=== PATIENT | female | born 1980 | race Caucasian/White ===

== ENCOUNTER 2022-08-13 18:12 | Emergency (ER) | payer OTHER ==
[2022-08-13] MEDS ORDERED: NA CHLORIDE 0.9% 500 ML ONE (18:41)
[2022-08-13] MEDS ORDERED: FENTANYL CITR 100 MCG/2 ML ONE (18:41)
--- OUTSIDE RECORDS SUMMARY | 2022-08-13 18:56 | XMS REPORT | Continuity of Care Document ---
:1980 Author Organization [facility] t Address [address] [place] [address] Care Team Providers Name Role Phone JAIMEEAUSTYN Jordin Primary Care Physician Unavailable ISIS KERNS Attending Clinician Unavailable LULU SWANSON Attending Clinician Unavailable MERRITT PAGAN Attending Clinician Unavailable RABIA TANNER Attending Clinician Unavailable MICHELLE SANTOS Attending Clinician Unavailable PEREZ ROBINS Attending Clinician Unavailable CHANA BARBOZA Attending Clinician Unavailable JUNIOR ALFARO Attending Clinician Unavailable Chloe Quinones Attending Clinician Corin Hayes MD Attending Clinician Junior Alfaro DO Attending Clinician JUAN SANCHEZ Attending Clinician Unavailable Alex Cruz MD Attending Clinician MADISON HYATT Attending Clinician Unavailable JOSHUA TAY Attending Clinician Unavailable Madison Raymond Attending Clinician Michelle Dumont Attending Clinician China Roberts Attending Clinician CHINA POSADAS Attending Clinician Unavailable Doctor Unassigned, [place] Attending Clinician Unavailable JESS WHITING Attending Clinician Unavailable ELAINE TOURE Attending Clinician Unavailable Elaine Toure MD Attending Clinician JUAN CORREIA Attending Clinician Unavailable Juan Correia MD Attending Clinician [phone] Flores ROQUE, Rabia Rasmussen Attending Clinician [phone] Vicente Maravilla Attending Clinician Unavailable Lam ROQUE, Chana Attending Clinician Curtis PRACTICE BILLING ASSOCIATE, Radhames Attending Clinician Jasvir ROQUE, Joshua Attending Clinician Pawel [facility], Marleny Clarke Attending Clinician RADHAMES ACEVEDO Attending Clinician Unavailable Latasha ROQUE, Merritt Attending Clinician MECCA HAWLEY Attending Clinician Unavailable Anita ROQUE, Mecca Ramos Attending Clinician 1, Adc Infusion Nurse Attending Clinician Unavailable Torrey [facility], Michelle Henriquez Attending Clinician LING JURADO Attending Clinician Unavailable Isis Kerns MD Attending Clinician Pob, Adc Lab Main Attending Clinician Unavailable Only, Adc Test Attending Clinician Unavailable Graeme ROQUE, Dwayne Attending Clinician Sarah Nunez Attending Clinician Unavailable Ney JOHNSON, Yesy Henriquez Attending Clinician Unavailable Only, Clc Main Test Attending Clinician Unavailable Femi Sellers MD Attending Clinician 1, Adc Infusion Chair Attending Clinician Unavailable 2, Adc Infusion Chair Attending Clinician Unavailable LISETTE Attending Clinician Unavailable RICHIE COLÓN Attending Clinician Unavailable Richie Colón DO Attending Clinician LYNNETTE ASTUDILLO Attending Clinician Unavailable Nurse, [facility] Attending Clinician Unavailable Lynnette Siddiqui Attending Clinician ALEX CRUZ Attending Clinician Unavailable Nghia ROQUE, Nicole Rizo Attending Clinician NICOLE ZAYAS Attending Clinician Unavailable Aicha Fulton OT L Attending Clinician Unavailable Johanne ROQUE, Jess Clarke Attending Clinician Ronaldo Dover MD Attending Clinician LUI CUMMINS Attending Clinician Unavailable LUI CUMMINS Attending Clinician Unavailable Yared ROQUE, Lui Sutton Attending Clinician DIANA CANTU Attending Clinician Unavailable Eleni ADVERTISING STRATEGIST, Diana Attending Clinician [facility] Attending Clinician Unavailable SHAHID AUGUST Attending Clinician Unavailable Mata ROQUE, Shahid Echols Attending Clinician Only, [facility] Pob2 Test Attending Clinician Unavailable Shira Cervantes RN Attending Clinician Unavailable ALEX WHITE Attending Clinician Unavailable Tushar ROQUE, Alex Echols Attending Clinician ZAIRA BRANNON Attending Clinician Unavailable Molly Mayer Attending Clinician Karina Trivedi Attending Clinician Lab, [facility] Fam Pob I Attending Clinician Unavailable KARINA PRESCOTT Attending Clinician Unavailable Isiah Smith MD, Rp Attending Clinician ISIAH SMITH RP Attending Clinician Unavailable Zully Valenzuela PT Attending Clinician Unavailable RONALDO DOVER Attending Clinician Unavailable Elmer Hopson DO Attending Clinician Sky ROQUE, Lulu Welsh Attending Clinician Trinh Attending Clinician Unavailable JUAN BAIRES Attending Clinician Unavailable NORBERT SELLERS Attending Clinician Unavailable Juan Baires MD Attending Clinician Therapist, [facility] Occup Attending Clinician Unavailable Traci ROQUE, Trish King Attending Clinician [phone] Kristy JOHNSON, Evelyn Attending Clinician YESSY MATA Attending Clinician Unavailable Julio Cesar EASMTAN, Yessy Soria Attending Clinician Mark Anthony ROQUE, Nava Hernandez Attending Clinician 2, [facility] Lab Attending Clinician Unavailable Nurse, [facility] Fam Attending Clinician Unavailable Jaqueline Field Attending Clinician Marc ROQUE, Catina Marie Attending Clinician Joe RD, Argelia Attending Clinician Jorge ROQUE, Nelly Scherer Attending Clinician Dilma Navarro MD Attending Clinician Mikie Omalley MD Attending Clinician Reshma Tran Attending Clinician Unavailable Xochitl Ceja Attending Clinician Unavailable SHERITA IQBAL Attending Clinician Unavailable GILLES REED Attending Clinician Unavailable Austyn Quach Attending Clinician Unavailable Nilay Laura Attending Clinician Unavailable ISIS KERNS Admitting Clinician Unavailable LULU SWANSON Admitting Clinician Unavailable TEQWIMJUNIOR BURNETT Admitting Clinician Unavailable TeqwimJunior burnett DO Admitting Clinician ELAINE TOURE Admitting Clinician Unavailable RABIA TANNER Admitting Clinician Unavailable Isis Kerns MD Admitting Clinician LISETTE Admitting Clinician Unavailable RICHIE COLÓN Admitting Clinician Unavailable ALEX WHITE Admitting Clinician Unavailable Lulu Swanson MD Admitting Clinician Trinh Admitting Clinician Unavailable YESSY MATA Admitting Clinician Unavailable Payers Payer Name Policy Type Policy Number Effective Date Expiration Date S nisreen [facility] [id number] 2013 PLUS 00:00:00 COMMUNITY PLAN [id number] 2016 [facility] 00:00:00 [facility] [id number] 2016 HEALTH CHOICE 00:00:00 [place]ICAID [place] [id number] 2012 2013 00:00:00 00:00:00 Problems Condition Condition Condition Status Onset Resolution Last Treating Co mments Source Name Details Category Date Date Treatment Clinician Date Bacteremia Bacteremia Disease Active U nivers 08-10 ity of 00:00: [place] 00 Medical Branch Sepsis Sepsis Disease Active Univers without without 08-09 ity of acute acute 00:00: [place] organ organ 00 Medical dysfunctio dysfunctio Br anch n n Fever, Fever, Disease Active Univers unspecifie unspecifie 08-09 it y of d fever d fever 00:00: [place] cause cause 00 Medical Branch History of History of Disease Active U nivers removal of removal of 03-15 it y of Port-a-Cat [place] [facility] Central Central Disease Active Overview: Univ ers venous venous 24 Formattin ity of catheter catheter 00:00: g of this [place] as in place in place 00 note Medica l might be Branch different from the original. Added automatic ally from request for surgery [id number] Dependence Dependence Disease Active U nivers on on 11-23 ity of wheelchair wheelchair 00:[place] [facility] [place] Dependence Dependence Disease Active U nivers on on 11-23 ity of wheelchair wheelchair 00:[place] [facility] [place] Restless Restless Disease Active Unive rs legs legs - ity of 00:00: [place] [facility] Diarrhea, Diarrhea, Disease Active Uni vers unspecifie unspecifie 12-01 it y of d type d type 00:00: [place] 00 Medical Branch Abnormal Abnormal Disease Active Unive rs findings findings 12-01 ity of in stool in stool 00:00: [place] [facility] Abdominal Abdominal Disease Active Uni vers bloating bloating -26 ity of 00:00: [place] 00 Medical Branch Pale stool Pale stool Disease Active U nivers 5-26 ity of 00:00: [place] [facility] Mold Mold Disease Active Univers exposure exposure 3-11 ity of 00:00: [place] 00 Medical Branch Intermitte Intermitte Disease Active 2018- U nivers nt asthma nt asthma 2-11 ity of without without 00:00: [place] complicati complicati 00 Me dical on, on, Branch unspecifie unspecifie d asthma d asthma severity severity Dysautonom Dysautonom Disease Active 2018- U nivers ia ia 9-10 ity of 00:00: [place] 00 Medical Branch Gastropare Gastropare Disease Active 2018- U nivers sis sis 9-10 ity of 00:00: [place] 00 Medical Branch Pancreatic Pancreatic Disease Active 2018-0 U nivers insufficie insufficie 9-10 it y of ncy ncy 00:00: [place] [facility] IBD IBD Disease Active Univers (inflammat (inflammat 9-10 it y of ory bowel ory bowel 00[place] disease[place] disease[place] 00 Medica l Branch Pseudotumo Pseudotumo Disease Active U nivers r cerebri r cerebri 9-10 ity of syndrome syndrome 00:00: [place] [facility] Dehydratio Dehydratio Disease Active U nivers n n 9-10 ity of 00:00: [place] [address] Medical Branch Other Other Disease Active 2017-07 Overview: Univer s constipati constipati 0-19 Formattin ity of on on 00:00: g of this [place] note Medical might be Branch different from the original. 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 7-23 ity of 00:00: [place] [facility] Migraine Migraine Disease Active 2012-07 Unive rs with aura with aura 2-12 ity of 00:00: [place] [address] Medical Branch Metabolic Metabolic Disease Active Uni vers syndrome syndrome 4-30 ity of 00:00: [place] [facility] Morbid Morbid Disease Active Univers obesity obesity 4-30 ity of 00:00: [place] [address] Medical Branch Hyperlipid Hyperlipid Disease Active 2011-07 U mikey emia emia 2-13 ity of 00:00: [place] [facility] Borderline Borderline Disease Active 2011-07 U mikey diabetes diabetes 2-11 ity of 00:00: 00 Medical Branch Palpitatio Palpitatio Disease Active 2011-07 U nivers ns ns 2- ity of 00:00: Medical Branch Hypothyroi Hypothyroi Disease Active Overview : Univers dism dism 08-10 Formattin ity of 00:00: g of this 00 note Medical might be Branch different from the original. 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 TIA ? more than likley stroke, per pt she had R sided weakness with aphasia, which initially presented as migraine. pt recovered most of her weakness with in 2 weeks Allergies, Adverse Reactions, Alerts Allergy Allergy Status Severity Reaction(s) Onset Inactive Treating Comm ents Source Name Type Date Date Clinician Metoclop Propensi Active Other (See 2021-[address] [facility] ramide ty to Comments) 2-27 [facility] adverse 00:[facility]: Medical reaction 00 Center s Sulfa Propensi Active Rash 2021-[address] [facility] (Sulfona ty to 227 [facility] mide adverse 00:00: Medical Antibiot reaction 00 Center [facility]) s Ondanset Propensi Active Hives 2021-[address] [facility] jase Hcl ty to 227 [facility] adverse 00:00: Medical reaction 00 Center s Aripipra Propensi Active Other (See 2021-[address] [facility] zole ty to Comments) 2-27 [facility] adverse 00:00: Medical reaction 00 Center s Adhesive Propensi Active Rash 2021-[address] [facility] Bandage ty to 2-27 [facility] adverse 00:00: Medical reaction 00 Center s Blueberr Propensi Active Hives 2021-[address] [facility] y ty to 2-27 [facility] adverse 00:00: Medical reaction 00 Center s Buprenor Propensi Active Other (See 2022-[address] [facility] phine ty to Comments) 2- [facility] adverse 00:00: Medical reaction 00 Center s Codeine Propensi Active Hives, Rash 2021-[address] ty to 2 [facility] adverse 00:00: Medical reaction 00 Center s Green Propensi Active Nausea And 2021-[address] [facility] Tea ty to Vomiting 2 [facility] adverse 00:00: Medical reaction 00 Center s Latex Propensi Active Rash 2021-[address] [facility] ty to 227 [facility] adverse 00:00: Medical reaction 00 Center s LATEX Allergy Active Low Rash 2021-[address] [facility] 2-27 [facility] 00:[facility]: Medical 00 Center SULFA Allergy Active Low Rash 2021-[address] [facility] (SULFONA 2 [facility] MIDE 00:00: Medical ANTIBIOT 00 Center ICS) BLUEBERR Allergy Active High Hives 2021-[address] [facility] Y 2-27 [facility] 00:00: Medical 00 Center CODEINE Allergy Active High Hives 2021-[address] [facility] [facility] 2-27 [facility] 00:00: Medical 00 Center ONDANSET Allergy Active High Hives 2021-[address] [facility] JASE HCL 2-27 [facility] 00:00: Medical 00 Center ARIPIPRA Allergy Active Other 2021-[address] [facility] ZOLE 2-27 [facility] 00:00: Medical 00 Center BUPRENOR Allergy Active Other 2021-[address] [facility] PHINE 2-27 [facility] 00:00: Medical 00 Center GREEN Allergy Active N\\T\\V 2021-[address] [facility] [facility] TEA 2-27 [facility] 00:00: Medical 00 Center METOCLOP Allergy Active Other 2021-[address] [facility] [facility] RAMIDE 2-27 [facility] 00:00: Medical 00 Center ADHESIVE Allergy Active Low Rash 2021-[address] [facility] [facility] BANDAGE 2-27 [facility] 00:00: Medical [address] Abilify Propensi Active [facility] ty to 9-14 College adverse 00:00: of reaction 00 Medicin s to e drug ONDANSET DRUG Active Med Hives Univers JASE HCL INGREDI 03-08 ity of 00:00: [place] 00 Medical Branch Ondanset Drug Active Hives Univers jase Hcl Allergy 03-08 ity of 00:00: [place] 00 Medical Branch Ondanset Propensi Active Hives Chava jase Hcl ty to 8-31 College adverse 00:00: of reaction 00 Medicin s to e drug Green Propensi Active Nausea 2021-0 Univers Tea ty to and/or 7-14 ity of adverse Vomiting 00:00: [place] reaction 00 Medical s Branch GREEN DRUG Active N/V 2021-0 Univers TEA INGREDI 7-14 ity of 00:00: [place] 00 Medical Branch Green Propensi Active Nausea And 2021-0 Bayl or Tea ty to Vomiting 7-14 [place] adverse 00:00: of reaction 00 Medicin s to e drug Latex Propensi Active Rash 2021-0 States [facility] ty to 6-13 "only in ity of adverse 00:00: a sticker [place] reaction 00 form, Medical s gloves Branch don't bother me" Sulfa Propensi Active Rash 2021-0 Univers (Sulfona ty to 6-13 ity of mide adverse 00:00: [place] Antibiot reaction 00 Medica l ics) s Branch LATEX DRUG Active Rash 2021-0 Univers INGREDI 6-13 ity of 00:00: [place] 00 Medical Branch SULFA Drug Active Rash 2021-0 Univers (SULFONA Class 6-13 ity of MIDE 00:00: [place] ANTIBIOT 00 Medical ICS) Branch Sulfa Propensi Active Rash 2021-0 [facility] Antibiot ty to 6-13 [place] ics adverse 00:00: of reaction 00 Medicin s to e drug Latex Propensi Active Rash 2021-0 [facility] ty to 6-13 "only in [place] adverse 00:00: a sticker of reaction 00 form, Medicin s to gloves e substanc don't e bother me" Adhesive Propensi Active Rash 2020-0 [place] Uni vers Tape-Ema ty to 2-27 ity of icones adverse 00:00: [place] reaction 00 Medical s Branch Blueberr Propensi Active Hives 2020-0 Univer s y ty to 2-27 ity of adverse 00:00: [place] reaction 00 Medical s Branch ADHESIVE DRUG Active Rash 2020-0 Univers TAPE-EMA 2-27 ity of ICONES 00:00: [place] 00 Medical Branch BLUEBERR DRUG Active Hives 2020-0 Univers Y INGREDI 2-27 ity of 00:00: [place] 00 Medical Branch Adhesive Propensi Active Rash 2020-0 [facility] [facility] [facility] Tape ty to 2-27 College adverse 00:00: of reaction 00 Medicin s to e substanc e Blueberr Propensi Active Hives [facility] y ty to 227 College adverse 00:00: of reaction 00 Medicin s to e food Buprenor Propensi Active Other - See Blisters Univers phine ty to comments 12-12 form the ity of adverse 00:00: medicatio [place] reaction 00 n on Medical s patch Branch BUPRENOR DRUG Active Other-Cmnt Univ ers PHINE INGREDI 12-12 ity of 00:00: [place] 00 Medical Branch Buprenor Propensi Active Other (See Blisters Chava phine ty to Comments) 12-12 form the Colle ge adverse 00:00: medicatio of reaction 00 n on Medicin s to patch e drug Metoclop Propensi Active Hypertension Univers ramide ty to 12-12 ity of adverse 00:00: [place] reaction 00 Medical s Branch METOCLOP DRUG Active HYPERTENSION Un bry RAMIDE INGREDI 12-12 ity of 00:00: [place] 00 Medical Branch Metoclop Propensi Active [facility] ramide ty to 12-12 [place] adverse 00:00: of reaction 00 Medicin s to e drug Codeine Propensi Active Rash 0 Large Chava ty to 9-26 doses College adverse 00:00: of reaction 00 Medicin s to e drug Codeine Propensi Active Rash 2009-0 Large Univers ty to 5-13 doses ity of adverse 00:00: [place] reaction 00 Medical s Branch CODEINE DRUG Active Hives 0 Univers INGREDI 5-13 ity of 00:00: [place] 00 Medical Branch NO KNOWN Allergy Active [facility] ALLERGIE S Social History Social Habit Start Date Stop Date Quantity Comments Source History SDOH [facility] Alcohol Frequency [facility] History SDOH [facility] Alcohol Std Drinks Medica l Center History SDOH [facility] Alcohol Binge Medical [address] History SDOH Social Unive rsity of [facility] Med ical Together Branch History SDOH Social Unive rsity of [facility] Branch History SDOH Social Unive rsity of [facility] Medical Membership Branch History SDOH Social Unive rsity of [facility] Medical Meetings Branch History SDOH 2022-08-09 2022-08-09 5 University o f Financial 00:00:00 00:00:00 [place] [facility] History SDOH Food 2022-08-09 2022-08-09 1 Univers ity of Worry 00:00:00 00:00:00 [place] [facility] History SDOH Food 2022-08-09 2022-08-09 1 Univers ity of Scarcity 00:00:00 00:00:00 [place] [facility] History SDOH 2022-08-09 2022-08-09 2 University o f Transport Med 00:00:00 00:00:00 [place] Medic al Branch History SDOH 2022-08-09 2022-08-09 2 University o f Transport Non-Med 00:00:00 00:00:00 [place] M edical Branch History SDOH Social 2022-08-09 2022-08-09 98 Unive rsity of Connections Phone 00:00:00 00:00:00 [place] M edical Branch History SDOH Social 2022-08-09 2022-08-09 5 Unive rsity of Connections Living 00:00:00 00:00:00 [place] [facility] History SDOH 2022-08-09 2022-08-09 0 University o f Physical Activity 00:00:00 00:00:00 [place] M edical DPW Branch History SDMA 2022-08-09 2022-08-09 0 University o f Physical Activity 00:00:00 00:00:00 [place] M edical MPS Branch Exposure to 2022-07-29 2022-08-08 Not sure University of SARS-CoV-2 (event) 00:00:00 14:25:00 [facility] [place] [facility] Tobacco use and 2022-07-04 2022-07-[address] [facility] [facility]lyn kes exposure 00:00:00 00:00:00 Medical Center Alcohol intake 2022-07-04 2022-07-04 [facility] alcohol Medical Center (finding) History SDOH 2022-07-04 2022-07-[address] [facility] Alcohol Comment 00:00:00 00:00:00 Medical C enter Tobacco Comment 2022-07-04 2022-07-04 smokes natural [facility] 00:[facility]:00:[facility] herbs (family Medical [address] recipe) Education 2019-03-27 2019-03-27 13 [facility] 00:00:00 00:00:00 [facility] [place] [facility] Sex [birth year] At [birth year] EKATERINA Caro 00:00:00 00:00:00 Medical Center Smoking Status Start Date Stop Date Source Never smoked tobacco [facility] Medications Ordered Filled Start Stop Current Ordering Indication Dosage Frequency Signature Comments Components Source Medication Medication Date Date Medication? Clinician (SIG) Name Name levetiracet Yes 500mg Take 500 U nivers am (KEPPRA 2-03 mg by ity of ORAL) 15:27: mouth 2 [place] 35 (two) Medical times [place] daily. levothyroxi Yes 88ug 88 mcg, Uni vers ne 03 Oral, ity of (SYNTHROID) 12:00: QAM-0600, [place] tablet 88 00 First dose Medi janet mcg on Sun [place] 08/11/22 at 0600, Until Discontinu ed, Routine Total 2022- Yes at 52 Univers Parenteral 08-11 02-04 mL/hr, ity of Nutrition 03:00: 02:59 1,250 [place], [place] Adult 00 :00 TPNCONTINU Medical OUS, [place] Starting on Sun08/10/22 at 2100, Until Sun08/11/22 at 2058 acetaZOLAMI Yes 500mg 500 mg, Un bry DE (DIAMOX) 03 Oral, BID, it y of tablet 500 02:00: First dose [place] mg 00 on [place] [facility] 08/10/22 at Branch 1999, Until Discontinu ed vancomycin 2022- Yes 15mg/kg 1,500 mg Univers 1500 mg in 08-10 (rounded ity of NS 500 mL 20:00: 19:59 from [place] IV 00 :00 1,543.5 mg Medical Piggyback = 15 mg/kg Bran ch RTU 1,500 ?102.9 mg kg), IV Piggyback, Q12H ABX, 14 doses, First dose on Sun08/10/22 at 1400, Last dose on Sun08/17/22 at 0200, Administer over 90 Minutes, 500 mL
Reas on for Anti-Infec tive: Documented Infection< br>Documen ebenezer Infection Site: Blood
D uration of Therapy: 7 days tiZANidine 2022-0 Yes 4mg 4 mg, Univer s (ZANAFLEX) 08-10 Oral, ity of tablet 4 mg 15:25: Q6HPRN, [place] as 33 Starting Medical on [place] Branch 08/10/22 at 0925, Until Discontinu ed, Routine, Muscle Spasms diazePAM 2022-0 Yes 5mg 5 mg, Univers (VALIUM) 08-10 Oral, ity of tablet 5 mg 15:24: TIDPRN, [place] as 48 Starting Medical on [place] Branch 08/10/22 at 0924, Until Discontinu ed, Routine, Muscle Spasms doxycycline 2022-0 202- No 100mg 100 mg, U nivers hyclate 08-10 Oral, ity of (Vibramycin 00:00: 19:21 Q12HA2, 10 [place] ) capsule 00 :39 doses, Medical 100 mg First dose Branch on Sun08/09/22 at 1800, Last dose on Sun08/14/22 at 0600, VESNA
Re ason for Anti-Infec tive: Documented Infection< br>Documen ebenezer Infection Site: Respirator y
Durat ion of Therapy: Other (see Comments) proMETHazin 0 Yes 50mg 50 mg, Univ ers e 08-09 Oral, ity of (PHENERGAN) 16:18: Q6HPRN, [place] tablet 50 59 Starting Medica l mg on Sun Branch 08/09/22 at 1018, Until Discontinu ed, Routine, Nausea and Vomiting (N/V) pantoprazol 2022-0 Yes 40mg 40 mg, Univ ers e 08-09 Oral, ity of (PROTONIX) 15:00: DAILY, [place] EC tablet 00 First dose Medi janet 40 mg on Sun Branch 08/09/22 at 0900, Until Discontinu ed, Routine nadoloL 2022-0 Yes 40mg 40 mg, Univers (CORGARD) 08-09 Oral, ity of tablet 40 15:00: DAILY, [place] mg 00 First dose Medical on Sun Branch 08/09/22 at 0900, Until Discontinu ed, Routine clonazePAM 2022-0 Yes 1mg 1 mg, Univer s (KLONOPIN) 08-09 Oral, ity of tablet 1 mg 15:00: DAILY, [place] 00 First dose Medical on Sun08/09/22 at 0900, Until Discontinu ed, Routine apixaban Yes 5523 5mg 5 mg, Univers (ELIQUIS) 08-09 Oral, BID, ity of tablet 5 mg 14:00: First dose [place] 00 on Sun Medical 08/09/22 at Branch 0800, Until Discontinu ed, Routine
Indicatio ns: DVT/PE pramipexole 0 Yes .25mg 0.25 mg, U nivers (MIRAPEX) 08-09 Oral, BID, ity of tablet 0.25 14:00: First dose [place] mg 00 on Sun Medical 08/09/22 at Branch 0800, Until Discontinu ed, Routine lipase-prot Yes 1{capsu 1 capsule, Univers ease-amylas 08-09 le} Oral, TID ity of e 14:00: MEALS, [place] (PANCREAZE) First dose Me dical 10,500-35,5 on Sun 00- 61,500 08/09/22 at unit 0800, capsule 1 Until capsule Discontinu ed levothyroxi Yes 100ug 100 mcg, U nivers ne 08-09 Oral, ity of (SYNTHROID) 12:00: QAM-0600, [place] tablet 100 00 First dose Med ical mcg on Sun08/09/22 at 0600, Until Discontinu ed, Routine levETIRAcet Yes 500mg 500 mg, Un bry am (KEPPRA) 08-09 Oral, BID, it y of tablet 500 08:30: First dose [place] mg 00 on Sun Medical 08/09/22 at Branch 0230, Until Discontinu ed imipramine 0 Yes 10mg 10 mg, Unive rs (TOFRANIL) 08-09 Oral, QHS, ity of tablet 10 08:30: [place] mg 00 on Sun Medical 08/09/22 at Branch 0230, Until Discontinu ed, Routine amitriptyli 0 Yes 10mg 10 mg, Univ ers ne (ELAVIL) 08-09 Oral, QHS, it y of tablet 10 08:30: [place] mg 00 on Sun Medical 08/09/22 at Branch 0230, Until Discontinu ed, Routine acetaminoph Yes 650mg 650 mg, Un bry en 08-09 Oral, ity of (TYLENOL) 08:14: Q6HPRN, [place] tablet 650 16 Starting Medic al mg on [place] [facility] 08/09/22 at 0214, Until Discontinu ed, Routine, Pain (scale 1-3) proMETHazin 2022- No 25mg 25 mg, IV Univers e 08-09 Piggyback, ity of (PHENERGAN) 05:45: 05:04 [place]CE[place] 1 [place] 25 mg in 00 :00 dose, On Medical NaCl 0.9% [facility]ly [facility] (NS) 50 mL 08/08/22 at IV 2345, VESNA piggyback aspirin 2022- No 325mg 325 mg, Unive rs tablet 325 08-09 Oral, ity of mg 02:30: 02:47 ONCE, 1 [place] 00 :00 dose, On Medical Formerly [facility] 08/08/22 at 2030, STAT levetiracet Yes 500mg Take 500 U nivers am (KEPPRA 2-01 mg by ity of ORAL) 02:15: mouth 2 [place] 10 (two) Medical times [place] daily. iopamidol 2022- No [id number] 79mL 79 mL, U nivers (ISOVUE 08-09 Intravenou ity o f 370-500 mL) 01:45: 01:45 s, ONCE, 1 [place] injection 00 :00 dose, On Medica l 79 mL Formerly [facility] 08/08/22 at 1945, Routine NaCl 0.9% 2022- No 500mL at 999 Univ ers (NS) bolus 08-08 mL/hr, 500 it y of infusion 23:15: 02:30 mL, IV [place] 500 mL 00 :00 Infusion, Medical ONCE, 1 Branch dose, On e 08/08/22 at 1715, STAT proMETHazin 0 2022- No 25mg 25 mg, IV Univers e 08-08 Piggyback, ity of (PHENERGAN) 23:00: 23:07 [place]CE[place] 1 [place] 25 mg in 00 :00 dose, On Medical NaCl 0.9% Tue Branch (NS) 50 mL 08/08/22 at IV 1700, VESNA piggyback acetaminoph 2022- No 1000mg 1,000 mg, Univers en 08-08 Oral, ity of (TYLENOL) 22:30: 21:34 ONCE[place] 00 :[place] dose, On Medical 1,000 mg Tue Branch 08/08/22 at 1630, Routine traMADoL 50 2022- Yes [id number] 50mg Take 1 Uni vers mg tablet 08-04 tablet by ity of 00:00: 05:59 mouth [place] 00 :00 every 4 Medical (four) Branch hours as needed for Pain (scale 7-10) for up to 7 days. Indication s: acute pain traMADoL 50 2022- Yes [id number] 50mg Take 1 Uni vers mg tablet 08-04 tablet by ity of 00:00: 05:59 mouth [place] 00 :00 every 4 Medical (four) Branch hours as needed for Pain (scale 7-10) for up to 7 days. Indication s: acute pain traMADoL 50 2022- Yes [id number] 50mg Take 1 Uni vers mg tablet 08-04- tablet by ity of 00:00: 05:59 mouth [place] 00 :00 every 4 Medical (four) Branch hours as needed for Pain (scale 7-10) for up to 7 days. Indication s: acute pain traMADoL 50 2022- Yes [id number] 50mg Take 1 Uni vers mg tablet 08-04 tablet by ity of 00:00: 05:59 mouth [place] 00 :00 every 4 Medical (four) Branch hours as needed for Pain (scale 7-10) for up to 7 days. Indication s: acute pain traMADoL 50 2022- Yes [id number] 50mg Take 1 Uni vers mg tablet 08-04- tablet by ity of 00:00: 05:59 mouth [place] 00 :00 every 4 Medical (four) Branch hours as needed for Pain (scale 7-10) for up to 7 days. Indication s: acute pain traMADoL 50 2022- Yes [id number] 50mg Take 1 Uni vers mg tablet 08-04-04 tablet by ity of 00:00: 05:59 mouth [place] 00 :00 every 4 Medical (four) Branch hours as needed for Pain (scale 7-10) for up to 7 days. Indication s: acute pain traMADoL 50 2022- Yes [id number] 50mg Take 1 Uni vers mg tablet 08-04-04 tablet by ity of 00:00: 05:59 mouth [place] 00 :00 every 4 Medical (four) Branch hours as needed for Pain (scale 7-10) for up to 7 days. Indication s: acute pain FENTanyl PF 2022- No 75ug 75 mcg, Un bry (SUBLIMAZE 08-03 Intramuscu it y of (PF)) 15:30: 14:51 lar, ONCE, [place] injection 00 :00 1 dose, On Medi janet 75 mcg [place] Branch 08/03/22 at 0930, STAT methylpredn 2022- No 125mg 125 mg, U nivers isolone sod 08-03 Intramuscu i ty of succ 15:30: 14:51 lar, ONCE [place] (SOLU-MEDRO 00 :00 NOW, 1 Medica l L) dose, On Branch injection [place] 125 mg 08/03/22 at 0930, VESNA diazePAM Yes [id number] 5mg Take 1 Uni vers (VALIUM) 5 - tablet by ity of mg tablet 00:00: mouth 3 (three) Medical times Branch daily as needed for Muscle Spasms. diazePAM 0 Yes [id number] 5mg Take 1 Uni vers (VALIUM) 5 - tablet by ity of mg tablet 00:00: mouth 3 (three) Medical times Branch daily as needed for Muscle Spasms. diazePAM 0 Yes [id number] 5mg Take 1 Uni vers (VALIUM) 5 -26 tablet by ity of mg tablet 00:00: mouth 3 (three) Medical times Branch daily as needed for Muscle Spasms. diazePAM 0 Yes [id number] 5mg Take 1 Uni vers (VALIUM) 5 -26 tablet by ity of mg tablet 00:00: mouth 3 [place] (three) Medical times Branch daily as needed for Muscle Spasms. diazePAM 2022-0 Yes [id number] 5mg Take 1 Uni vers (VALIUM) 5 1-26 tablet by ity of mg tablet 00:00: mouth 3 [place] 00 (three) Medical times Branch daily as needed for Muscle Spasms. diazePAM 2022-0 Yes [id number] 5mg Take 1 Uni vers (VALIUM) 5 1-26 tablet by ity of mg tablet 00:00: mouth 3 [place] 00 (three) Medical times Branch daily as needed for Muscle Spasms. diazePAM 2022-0 Yes [id number] 5mg Take 1 Uni vers (VALIUM) 5 1-26 tablet by ity of mg tablet 00:00: mouth 3 [place] 00 (three) Medical times Branch daily as needed for Muscle Spasms. diazePAM 2022-0 Yes [id number] 5mg Take 1 Uni vers (VALIUM) 5 1-26 tablet by ity of mg tablet 00:00: mouth 3 [place] 00 (three) Medical times Branch daily as needed for Muscle Spasms. diazePAM 2022-0 Yes [id number] 5mg Take 1 Uni vers (VALIUM) 5 1-26 tablet by ity of mg tablet 00:00: mouth 3 [place] 00 (three) Medical times Branch daily as needed for Muscle Spasms. predniSONE 2022- No [id number] 40mg Take 2 Univers 20 mg 1-26 02-03 tablets by ity of tablet 00:00: 00:00 mouth in [place] 00 :00 the Medical morning Branch for 5 days. predniSONE 2022- Yes [id number] 40mg Take 2 Univers 20 mg 1-26 02- tablets by ity of tablet 00:00: 05:59 mouth in [place] 00 :00 the Medical morning Branch for 5 days. predniSONE 2022- Yes [id number] 40mg Take 2 [facility] 20 mg 1-26 02- tablets by ity of tablet 00:00: 05:59 mouth in [place] 00 :00 the Medical morning Branch for 5 days. predniSONE 2022- Yes [id number] 40mg Take 2 [facility] 20 mg 1-26 02- tablets by ity of tablet 00:00: 05:59 mouth in [place] 00 :00 the Medical morning Branch for 5 days. predniSONE 2022- Yes [id number] 40mg Take 2 [facility] 20 mg 1-26 02- tablets by ity of tablet 00:00: 05:59 mouth in [place] 00 :00 the Medical morning [place] for 5 days. predniSONE 2022- Yes [id number] 40mg Take 2 [facility] 20 mg 08-03 tablets by ity of tablet 00:00: 05:59 mouth in [place] 00 :00 the Medical morning Branch for 5 days. predniSONE 2022-2022- Yes [id number] 40mg Take 2 [facility] 20 mg 08-03 tablets by ity of tablet 00:00: 05:59 mouth in [place] 00 :00 the Medical morning Branch for 5 days. predniSONE 2022- Yes [id number] 40mg Take 2 [facility] 20 mg 08-03 tablets by ity of tablet 00:00: 05:59 mouth in [place] 00 :00 the [facility] for 5 days. methylPREDN 2022- No [id number] 80mg U nivers ISolone 07-27 ity of acetate 20:15: 19:07 [place] (DEPO-MEDRO 00 :00 Medical L) Branch injection 80 mg methylPREDN 2022- No [id number] 80mg 80 mg, Univers ISolone 07-27 Intra-sánchez ity o f acetate 20:15: 19:07 [place], [place] (DEPO-MEDRO 00 :00 ONCE, 1 Medic al L) dose, On Branch injection [place] 80 mg 07/27/22 at 1415, Routine methylPREDN 2022- No [id number] 80mg U nivers ISolone 07-27 ity of acetate 20:15: 19:07 [place] (DEPO-MEDRO 00 :00 Medical L) Branch injection 80 mg methylPREDN 2022- No [id number] 80mg 80 mg, Univers ISolone 07-27 Intra-sánchez ity o f acetate 20:15: 19:07 [place], [place] (DEPO-MEDRO 00 :00 ONCE, 1 Medic al L) dose, On Branch injection [place] 80 mg 07/27/22 at 1415, Routine methylPREDN 2022- No [id number] 80mg U nivers ISolone 07-27 ity of acetate 20:15: 19:07 [place] (DEPO-MEDRO 00 :00 Medical L) Branch injection 80 mg methylPREDN 3-0 2022- No [id number] 80mg 80 mg, [facility] ISolone 07-27 Intra-sánchez ity o f acetate 20:15: 19:07 [place], [place] (DEPO-MEDRO 00 :00 ONCE, 1 Medic al L) dose, On Branch injection [place] 80 mg 07/27/22 at 1415, Routine methylPREDN 3-0 3- No [id number] 80mg U nivers ISolone 07-27 ity of acetate 20:15: 19:07 [place] (DEPO-MEDRO 00 :00 Medical L) Branch injection 80 mg methylPREDN 2022-0 3- No [id number] 80mg 80 mg, [facility] ISolone 07-27 Intra-sánchez ity o f acetate 20:15: 19:07 [place], [place] (DEPO-MEDRO 00 :00 ONCE, 1 Medic al L) dose, On Branch injection [place] 80 mg 07/27/22 at 1415, Routine methylPREDN 2022-0 2022- No [id number] [facility] ity of acetate 20:15: 19:07 [place] (DEPO-MEDRO 00 :00 Medical L) Branch injection 80 mg methylPREDN 2022-0 2022- No [id number] 80mg 80 mg, [facility] ISolone 07-27 Intra-sánchez ity o f acetate 20:15: 19:07 [place], [place] (DEPO-MEDRO 00 :00 ONCE, 1 Medic al L) dose, On Branch injection [place] 80 mg 07/27/22 at 1415, Routine TIZANIDINE 2022-0 Yes [id number] TAKE 1 U nivers 4 mg tablet 1-10 TABLET BY ity of 00:00: MOUTH [place] 00 EVERY 8 Medical HOURS Branch NEEDED FOR SEVERE MUSCLE SPASMS TIZANIDINE 2022-0 Yes [id number] TAKE 1 U nivers 4 mg tablet 1-10 TABLET BY ity of 00:00: MOUTH [place] 00 EVERY 8 Medical HOURS Branch NEEDED FOR SEVERE MUSCLE SPASMS TIZANIDINE 2023-0 Yes [id number] TAKE 1 U nivers 4 mg tablet 1-10 TABLET BY ity of 00:00: MOUTH [place] 00 EVERY 8 Medical HOURS Branch NEEDED FOR SEVERE MUSCLE SPASMS TIZANIDINE 2023-0 Yes [id number] TAKE 1 U nivers 4 mg tablet 1-10 TABLET BY ity of 00:00: MOUTH [place] EVERY 8 Medical HOURS Branch NEEDED FOR SEVERE MUSCLE SPASMS TIZANIDINE 2023-0 Yes [id number] TAKE 1 U nivers 4 mg tablet 1-10 TABLET BY ity of 00:00: MOUTH EVERY 8 Medical HOURS Branch NEEDED FOR SEVERE MUSCLE SPASMS TIZANIDINE 2023-0 Yes [id number] TAKE 1 U nivers 4 mg tablet 1-10 TABLET BY ity of 00:00: MOUTH EVERY 8 Medical HOURS Branch NEEDED FOR SEVERE MUSCLE SPASMS TIZANIDINE 2023-0 Yes [id number] TAKE 1 U nivers 4 mg tablet 1-10 TABLET BY ity of 00:00: MOUTH EVERY 8 Medical HOURS Branch NEEDED FOR SEVERE MUSCLE SPASMS TIZANIDINE 2023-0 Yes [id number] TAKE 1 U nivers 4 mg tablet 1-10 TABLET BY ity of 00:00: MOUTH EVERY 8 Medical HOURS Branch NEEDED FOR SEVERE MUSCLE SPASMS TIZANIDINE 2023-0 Yes [id number] TAKE 1 U nivers 4 mg tablet 1-10 TABLET BY ity of 00:00: MOUTH EVERY 8 Medical HOURS Branch NEEDED FOR SEVERE MUSCLE SPASMS TIZANIDINE 2023-0 Yes [id number] TAKE 1 U nivers 4 mg tablet 1-10 TABLET BY ity of 00:00: MOUTH EVERY 8 Medical HOURS Branch NEEDED FOR SEVERE MUSCLE SPASMS TIZANIDINE 2023-0 Yes [id number] TAKE 1 U nivers 4 mg tablet 1-10 TABLET BY ity of 00:00: MOUTH EVERY 8 Medical HOURS Branch NEEDED FOR SEVERE MUSCLE SPASMS TIZANIDINE 2023-0 Yes [id number] TAKE 1 U nivers 4 mg tablet 1-10 TABLET BY ity of 00:00: MOUTH EVERY 8 Medical HOURS Branch NEEDED FOR SEVERE MUSCLE SPASMS TIZANIDINE 2023-0 Yes [id number] TAKE 1 U nivers 4 mg tablet 1-10 TABLET BY ity of 00:00: MOUTH 00 EVERY 8 Medical HOURS Branch NEEDED FOR SEVERE MUSCLE SPASMS TIZANIDINE 2023-0 Yes [id number] TAKE 1 U nivers 4 mg tablet 1-10 TABLET BY ity of 00:00: MOUTH EVERY 8 Medical HOURS Branch NEEDED FOR SEVERE MUSCLE SPASMS TIZANIDINE 2023-0 Yes [id number] TAKE 1 U nivers 4 mg tablet 1-10 TABLET BY ity of 00:00: MOUTH EVERY 8 Medical HOURS Branch NEEDED FOR SEVERE MUSCLE SPASMS TIZANIDINE 2023-0 Yes [id number] TAKE 1 U nivers 4 mg tablet 1-10 TABLET BY ity of 00:00: MOUTH EVERY 8 Medical HOURS Branch NEEDED FOR SEVERE MUSCLE SPASMS TIZANIDINE 2023-0 Yes [id number] TAKE 1 U nivers 4 mg tablet 1-10 TABLET BY ity of 00:00: MOUTH EVERY 8 Medical HOURS Branch NEEDED FOR SEVERE MUSCLE SPASMS TIZANIDINE 2023-0 Yes [id number] TAKE 1 U nivers 4 mg tablet 1-10 TABLET BY ity of 00:00: EVERY 8 Medical HOURS Branch NEEDED FOR SEVERE MUSCLE SPASMS TIZANIDINE 2023-0 Yes [id number] TAKE 1 U nivers 4 mg tablet 1-10 TABLET BY ity of 00:00: EVERY 8 Medical HOURS Branch NEEDED FOR SEVERE MUSCLE SPASMS TIZANIDINE 2023-0 Yes [id number] TAKE 1 U nivers 4 mg tablet 1-10 TABLET BY ity of 00:00: EVERY 8 Medical HOURS Branch NEEDED FOR SEVERE MUSCLE SPASMS TIZANIDINE 2023-0 Yes [id number] TAKE 1 U nivers 4 mg tablet 1-10 TABLET BY ity of 00:00: EVERY 8 Medical HOURS Branch NEEDED FOR SEVERE MUSCLE SPASMS TIZANIDINE 2023-0 Yes [id number] TAKE 1 U nivers 4 mg tablet 1-10 TABLET BY ity of 00:00: EVERY 8 Medical HOURS Branch NEEDED FOR SEVERE MUSCLE SPASMS TIZANIDINE 2023-0 Yes [id number] TAKE 1 U nivers 4 mg tablet 1-10 TABLET BY ity of 00:00: EVERY 8 Medical HOURS Branch NEEDED FOR SEVERE MUSCLE SPASMS TIZANIDINE 2023-0 Yes [id number] TAKE 1 U nivers 4 mg tablet 1-10 TABLET BY ity of 00:00: EVERY 8 Medical HOURS Branch NEEDED FOR SEVERE MUSCLE SPASMS traMADoL 50 2023-0 2023- Yes [id number] 50mg Take 1 Uni vers mg tablet 07-17 tablet by ity of 00:00: 05:59 mouth [place] 00 :00 every 6 Medical (six) Branch hours as needed for Pain (scale 4-6) for up to 7 days. Indication s: acute pain traMADoL 50 2022-0 2022- Yes [id number] 50mg Take 1 Uni vers mg tablet 07-17 tablet by ity of 00:00: 05:59 mouth [place] 00 :00 every 6 Medical (six) Branch hours as needed for Pain (scale 4-6) for up to 7 days. Indication s: acute pain traMADoL 50 2022-0 2022- Yes [id number] 50mg Take 1 Uni vers mg tablet 07-17 tablet by ity of 00:00: 05:59 mouth [place] 00 :00 every 6 Medical (six) Branch hours as needed for Pain (scale 4-6) for up to 7 days. Indication s: acute pain traMADoL 50 2022-2022- Yes [id number] 50mg Take 1 Uni vers mg tablet 07-17 tablet by ity of 00:00: 05:59 mouth [place] 00 :00 every 6 Medical (six) Branch hours as needed for Pain (scale 4-6) for up to 7 days. Indication s: acute pain traMADoL 50 2022-0 2022- Yes [id number] 50mg Take 1 Uni vers mg tablet 07-17 tablet by ity of 00:00: 05:59 mouth [place] 00 :00 every 6 Medical (six) Branch hours as needed for Pain (scale 4-6) for up to 7 days. Indication s: acute pain traMADoL 50 2022-0 2022- Yes [id number] 50mg Take 1 Uni vers mg tablet 07-17 tablet by ity of 00:00: 05:59 mouth [place] 00 :00 every 6 Medical (six) Branch hours as needed for Pain (scale 4-6) for up to 7 days. Indication s: acute pain traMADoL 50 2022-0 2022- Yes [id number] 50mg Take 1 Uni vers mg tablet 07-17 tablet by ity of 00:00: 05:59 mouth [place] 00 :00 every 6 Medical (six) Branch hours as needed for Pain (scale 4-6) for up to 7 days. Indication s: acute pain traMADoL 50 0 2022- Yes [id number] 50mg Take 1 Uni vers mg tablet 07-17 tablet by ity of 00:00: 05:59 mouth [place] 00 :00 every 6 Medical (six) Branch hours as needed for Pain (scale 4-6) for up to 7 days. Indication s: acute pain traMADoL 50 2022-0 2022- Yes [id number] 50mg Take 1 Uni vers mg tablet 07-17 tablet by ity of 00:00: 05:59 mouth [place] 00 :00 every 6 Medical (six) Branch hours as needed for Pain (scale 4-6) for up to 7 days. Indication s: acute pain traMADoL 50 0 2022- Yes [id number] 50mg Take 1 Uni vers mg tablet 07-17 tablet by ity of 00:00: 05:59 mouth [place] 00 :00 every 6 Medical (six) Branch hours as needed for Pain (scale 4-6) for up to 7 days. Indication s: acute pain traMADoL 50 2022-0 2022- No [id number] 50mg Take 1 Uni vers mg tablet 07-17 tablet by ity of 00:00: 05:59 mouth [place] 00 :00 every 6 Medical (six) Branch hours as needed for Pain (scale 4-6) for up to 7 days. Indication s: acute pain traMADoL 50 2022-0 2022- No [id number] 50mg Take 1 Uni vers mg tablet 07-17 tablet by ity of 00:00: 05:59 mouth [place] 00 :00 every 6 Medical (six) Branch hours as needed for Pain (scale 4-6) for up to 7 days. Indication s: acute pain amitriptyli 2022-0 Yes Univer s ne 25 mg 1-08 ity of tablet 00:00: [place] 00 Medical Branch amitriptyli 2022-0 Yes Univer s ne 25 mg 1-08 ity of tablet 00:00: [place] 00 Medical Branch amitriptyli 2022-0 Yes Univer s ne 25 mg 1-08 ity of tablet 00:00: [place] 00 Medical Branch amitriptyli 2022-0 Yes Univer s ne 25 mg 1-08 ity of tablet 00:00: [place] 00 Medical Branch amitriptyli 2023-0 Yes Univer s ne 25 mg 1-08 ity of tablet 00:00: [place] 00 Medical Branch amitriptyli 2023-0 Yes Univer s ne 25 mg 1-08 ity of tablet 00:00: [place] 00 Medical Branch amitriptyli 2023-0 Yes Univer s ne 25 mg 1-08 ity of tablet 00:00: [place] 00 Medical Branch amitriptyli 2023-0 Yes Univer s ne 25 mg 1-08 ity of tablet 00:00: [place] 00 Medical Branch amitriptyli 2023-0 Yes Univer s ne 25 mg 1-08 ity of tablet 00:00: [place] 00 Medical Branch amitriptyli 3-0 Yes Univer s ne 25 mg 1-08 ity of tablet 00:00: [place] 00 Medical Branch amitriptyli 3-0 Yes Univer s ne 25 mg 1-08 ity of tablet 00:00: [place] 00 Medical Branch amitriptyli 3-0 Yes Univer s ne 25 mg 1-08 ity of tablet 00:00: [place] 00 Medical Branch amitriptyli 3-0 Yes Univer s ne 25 mg 1-08 ity of tablet 00:00: [place] 00 Medical Branch amitriptyli 3-0 Yes Univer s ne 25 mg 1-08 ity of tablet 00:00: [place] 00 Medical Branch amitriptyli 3-0 Yes Univer s ne 25 mg 1-08 ity of tablet 00:00: [place] 00 Medical Branch amitriptyli 3-0 Yes Univer s ne 25 mg 1-08 ity of tablet 00:00: [place] 00 Medical Branch amitriptyli 2023-0 Yes Univer s ne 25 mg 1-08 ity of tablet 00:00: [place] 00 Medical Branch amitriptyli 2023-0 Yes Univer s ne 25 mg 1-08 ity of tablet 00:00: [place] 00 Medical Branch amitriptyli 2023-0 Yes Univer s ne 25 mg 1-08 ity of tablet 00:00: [place] 00 Medical Branch amitriptyli 2023-0 Yes Univer s ne 25 mg 1-08 ity of tablet 00:00: [place] 00 Medical Branch amitriptyli 2023-0 Yes Univer s ne 25 mg 1-08 ity of tablet 00:00: [place] Medical Branch amitriptyli 0 Yes Univer s ne 25 mg 1-08 ity of tablet 00:00: [place] Medical Branch amitriptyli 0 Yes Univer s ne 25 mg 1-08 ity of tablet 00:00: [place] Medical Branch amitriptyli 0 Yes Univer s ne 25 mg 1-08 ity of tablet 00:00: [place] Medical Branch amitriptyli 0 Yes Univer s ne 25 mg 1-08 ity of tablet 00:00: [place] [facility] Branch amitriptyli 0 Yes Univer s ne 25 mg 1-08 ity of tablet 00:00: [place] Medical Branch amitriptyli 0 Yes Univer s ne 25 mg 1-08 ity of tablet 00:00: [place] [facility] Branch amitriptyli 0 Yes Univer s ne 25 mg 1-08 ity of tablet 00:00: [facility] Branch amitriptyli 0 Yes Univer s ne 25 mg 1-08 ity of tablet 00:00: [place] [facility] Branch amitriptyli 0 Yes Univer s ne 25 mg 1-08 ity of tablet 00:00: [place] Medical Branch sterile 2021-[address] [facility] water SolP 2-27 intravenou Ezequiel es with amino 12:19: sly Medical acid 15% 15 42 Infusion [facility] er % SolP, 16 dextrose hours/day 70% (D70W) . SolP, fat emulsion (INTRAlipid ) 30 % Emul, sodium chloride 4 mEq/mL (23.4%) SolP, sodium phosphate 3 mmol/mL Soln, potassium chloride 2 mEq/mL Soln, magnesium sulfate 4 mEq/mL (50 %) Soln, calcium gluconate 100 mg/mL (10%) Soln 8 mEq/L, adult multiple vitamin 3,300 unit- 150 mcg/10 mL Soln 10 mL, adult trace elements (concentrat ed) 10 mcg-1 mg-0.5 mg-60mcg-5m g/mL Soln 1 mL pancrelipas 2021-07 Yes [id number] Take [facility] e, 2-27 lipase} [id number] 36,000 [facility] Lip-Prot-Am 12:05: 3D units of Me dical yl, (Creon) [address] 36,000-114, mouth 3 000- (three) 180,000 times unit CpDR daily. capsule apixaban 2021-07 Yes 5mg Q.5D Take [address] [facility] (Eliquis) 5 2-27 by mouth 2 Kimberlyn kes mg Tab 12:05: (two) Medical tablet 48 times Center daily. nadoloL 2021-07 Yes 40mg QD Take [address] [facility] (CORGARD) 2-27 by mouth [facility] 40 MG 12:05: daily. Medical tablet 47 Center furosemide 2021-07 Yes 20mg QD Take [address] (LASIX) 20 2-27 by mouth [facility] MG tablet 12:05: daily. Medica l 47 Center acetaZOLAMI 2021-07 Yes 500mg Q.5D Take [address] [place] (DIAMOX) 2-27 mg by [facility] 500 mg 12 12:05: mouth 2 Medic al hr capsule 47 (two) Center times daily . levETIRAcet 2021-07 Yes 500mg Q.5D Take [address] am (KEPPRA) 2-27 mg by [facility] 500 MG 12:05: mouth 2 Medical tablet 47 (two) Center times daily . amitriptyli 2021-07 Yes 10mg QD Take [address] [facility] ne (ELAVIL) 2-27 by mouth Luke [facility] 10 MG 12:05: nightly. Medical tablet 47 Center clonazePAM 2021-07 Yes 1mg Take [address] [facility] [address] [facility] (KlonoPIN) 2-27 by mouth [facility] 1 MG tablet 12:05: daily as Me dical 47 needed for Center Anxiety. fluticasone 2021-07 Yes 1{spray QD [address] [facility] propionate 2-27 } Nasal [facility] (FLONASE) 12:05: route Medical 50 47 daily. Center mcg/actuati on nasal spray hydrOXYzine 2021-07 Yes 50mg Take [address] [facility] (ATARAX) 50 2-27 by mouth 3 Kimberlyn kes MG tablet 12:05: (three) Medic al 47 times Center daily as needed for Itching . levothyroxi 2022-1 Yes 100ug Take [address] ne 2-27 mcg by [facility] (SYNTHROID, 12:05: mouth Medic al LEVOTHROID) 47 Every Center 100 MCG morning on tablet an empty stomach. levothyroxi 2021-07 Yes 88ug Take [address] [facility] ne 2-27 mcg by [facility] (SYNTHROID, 12:05: mouth Medic al LEVOTHROID) 47 Every Center 88 MCG morning on tablet an empty stomach. pantoprazol 2021-07 Yes 40mg QD Take [address] [facility] e 2-27 by mouth [facility] (PROTONIX) 12:05: daily. Medic al 40 MG 47 Center tablet promethazin 2021-07 Yes 50mg Take [address] [facility] e 2-27 by mouth [facility] (PHENERGAN) 12:05: every 6 Med ical 50 MG 47 (six) Center tablet hours as needed for Nausea. zaleplon 2021-07 Yes 10mg Take [address] [facility] (SONATA) 10 2-27 by mouth Luke [facility] MG capsule 12:05: every Medica l 47 night as Center needed. linaCLOtide 2021-07 Yes 145ug Take [address] (LINZESS) 2-27 mcg by [facility] 145 mcg Cap 12:05: mouth Medic al 47 daily as Center needed. tiZANidine 2021-07 Yes 4mg Take [address] (ZANAFLEX) 2-27 by mouth [facility] 4 MG tablet 12:05: every 6 Med ical 46 (six) Center hours as needed. tizanidine 2021-07 Yes 8mg Take 8 mg [facility] (ZANAFLEX) 1-21 by mouth Colle ge 4 MG tablet 14:42: every 6 of 56 hours as Medicin needed. e nadolol 2021-07 Yes 40mg Take 40 mg [facility] (CORGARD) 1-21 by mouth [facility] 40 MG 14:42: daily. of tablet 56 Medicin e furosemide 2021-07 Yes 20mg Take 20 mg [facility] (LASIX) 20 1-21 by mouth Colle ge MG tablet 14:42: daily. of 56 Medicin e fluocinonid 2021-07 Yes Apply [facility] (LIDEX) 1-21 topically Colle ge 0.05 % 14:42: two times of cream 56 daily. Medicin e nitrofurant 2021-07 Yes 100mg Take 100 [facility] o[facility], 1-21 mg by [place] macrocrysta 14:42: mouth two o f l-monohydra 56 times Medicin te, daily. e (MACROBID) 100 MG capsule Cariprazine 2021-07 Yes Take by [facility] HCl 1-21 mouth. [place] (VRAYLAR) 14:42: of 1.5 & 3 MG 56 Medicin CPPK e Apixaban 2021-07 Yes Take by [facility] (ELIQUIS) 5 1-21 mouth. Colleg e MG TABS 14:42: of 56 Medicin e apixaban 2021-07 Yes [id number] 5mg Take 1 [facility] (ELIQUIS) 5 1-01 tablet by ity of mg tablet 00:00: [place] 00 the Medical morning Branch and 1 tablet in the evening. Indication s: history of deep vein thrombosis apixaban 2021-07 Yes 5523 5mg Take 1 [facility] (ELIQUIS) 5 1-01 tablet by ity of mg tablet 00:00: [place] the [place] morning Branch and 1 tablet in the evening. Indication s: history of deep vein thrombosis apixaban 2021-07 Yes [id number] 5mg Take 1 [facility] (ELIQUIS) 5 1-01 tablet by ity of mg tablet 00:00: [place] the Medical morning Branch and 1 tablet in the evening. Indication s: history of deep vein thrombosis apixaban 2021-07 Yes 5523 5mg Take 1 [facility] (ELIQUIS) 5 1-01 tablet by ity of mg tablet 00:00: [place] the Medical morning Branch and 1 tablet in the evening. Indication s: history of deep vein thrombosis apixaban 2021-07 Yes 5523 5mg Take 1 [facility] (ELIQUIS) 5 1-01 tablet by ity of mg tablet 00:00: [place] the Medical morning Branch and 1 tablet in the evening. Indication s: history of deep vein thrombosis apixaban 2021-07 Yes 5523 5mg Take 1 [facility] (ELIQUIS) 5 1-01 tablet by ity of mg tablet 00:00: [place] 00 the Medical morning Branch and 1 tablet in the evening. Indication s: history of deep vein thrombosis apixaban 2021-07 Yes 5523 5mg Take 1 [facility] (ELIQUIS) 5 1-01 tablet by ity of mg tablet 00:00: [place] the Medical morning Branch and 1 tablet in the evening. Indication s: history of deep vein thrombosis apixaban 2021-07 Yes 5523 5mg Take 1 [facility] (ELIQUIS) 5 1-01 tablet by ity of mg tablet 00:00: [place] the Medical morning Branch and 1 tablet in the evening. Indication s: history of deep vein thrombosis apixaban 2021-07 Yes 5523 5mg Take 1 [facility] (ELIQUIS) 5 1-01 tablet by ity of mg tablet 00:00: [place] the Medical morning Branch and 1 tablet in the evening. Indication s: history of deep vein thrombosis apixaban 2021-07 Yes 5523 5mg Take 1 [facility] (ELIQUIS) 5 1-01 tablet by ity of mg tablet 00:00: [place] 00 the Medical morning Branch and 1 tablet in the evening. Indication s: history of deep vein thrombosis apixaban 2021-07 Yes 5523 5mg Take 1 [facility] (ELIQUIS) 5 1-01 tablet by ity of mg tablet 00:00: [place] [facility] [place] [facility] and 1 tablet in the evening. Indication s: history of deep vein thrombosis apixaban 2021-07 Yes 5523 5mg Take 1 [facility] (ELIQUIS) 5 1-01 tablet by [facility] of mg tablet 00:00: [place] 00 the [facility] morning [facility] and 1 tablet in the evening. Indication s: history of deep vein thrombosis apixaban 2021-07 Yes 5523 5mg Take 1 [facility] (ELIQUIS) 5 1-01 tablet by [facility] of mg tablet 00:00: [place] 00 the [facility] morning [facility] and 1 tablet in the evening. Indication s: history of deep vein thrombosis apixaban 2021-07 Yes 5523 5mg Take 1 [facility] (ELIQUIS) 5 1-01 tablet by [facility] of mg tablet 00:00: [place] 00 the [facility] morning Branch and 1 tablet in the evening. Indication s: history of deep vein thrombosis apixaban 2021-07 Yes 5523 5mg Take 1 [facility] (ELIQUIS) 5 1-01 tablet by [facility] of mg tablet 00:00: [place] 00 the [facility] morning [facility] and 1 tablet in the evening. Indication s: history of deep vein thrombosis apixaban 2021-07 Yes 5523 5mg Take 1 [facility] (ELIQUIS) 5 1-01 tablet by [facility] of mg tablet 00:00: [place] 00 the [facility] morning Branch and 1 tablet in the evening. Indication s: history of deep vein thrombosis apixaban 2021-07 Yes 5523 5mg Take 1 [facility] (ELIQUIS) 5 1-01 tablet by [facility] of mg tablet 00:00: [place] 00 the [facility] morning Branch and 1 tablet in the evening. Indication s: history of deep vein thrombosis apixaban 2021-07 Yes 5523 5mg Take 1 [facility] (ELIQUIS) 5 1-01 tablet by [facility] of mg tablet 00:00: [place] 00 the [facility] morning Branch and 1 tablet in the evening. Indication s: history of deep vein thrombosis apixaban 2021-07 Yes 5523 5mg Take 1 [facility] (ELIQUIS) 5 1-01 tablet by [facility] of mg tablet 00:00: [place] 00 the [facility] morning Branch and 1 tablet in the evening. Indication s: history of deep vein thrombosis apixaban 2021-07 Yes 5523 5mg Take 1 [facility] (ELIQUIS) 5 1-01 tablet by [facility] of mg tablet 00:00: [place] 00 the [facility] morning Branch and 1 tablet in the evening. Indication s: history of deep vein thrombosis apixaban 2021-07 Yes 5523 5mg Take 1 [facility] (ELIQUIS) 5 1-01 tablet by [facility] of mg tablet 00:00: [place] 00 the [facility] morning Branch and 1 tablet in the evening. Indication s: history of deep vein thrombosis apixaban 2021-07 Yes 5523 5mg Take 1 [facility] (ELIQUIS) 5 1-01 tablet by [facility] of mg tablet 00:00: [place] 00 the [facility] morning Branch and 1 tablet in the evening. Indication s: history of deep vein thrombosis apixaban 2021-07 Yes 5523 5mg Take 1 [facility] (ELIQUIS) 5 1-01 tablet by [facility] of mg tablet 00:00: [place] 00 the [facility] morning Branch and 1 tablet in the evening. Indication s: history of deep vein thrombosis apixaban 2021-07 Yes 5523 5mg Take 1 [facility] (ELIQUIS) 5 1-01 tablet by [facility] of mg tablet 00:00: [place] 00 the [facility] morning Branch and 1 tablet in the evening. Indication s: history of deep vein thrombosis apixaban 2021-07 Yes 5523 5mg Take 1 [facility] (ELIQUIS) 5 1-01 tablet by [facility] of mg tablet 00:00: [place] 00 the Medical morning Branch and 1 tablet in the evening. Indication s: history of deep vein thrombosis apixaban 2021-07 Yes 5523 5mg Take 1 [facility] (ELIQUIS) 5 1-01 tablet by [facility] of mg tablet 00:00: [place] 00 the Medical morning Branch and 1 tablet in the evening. Indication s: history of deep vein thrombosis apixaban 2021-07 Yes 5523 5mg Take 1 [facility] (ELIQUIS) 5 1-01 tablet by [facility] of mg tablet 00:00: [place] the [facility] morning [facility] and 1 tablet in the evening. Indication s: history of deep vein thrombosis apixaban 2021-07 Yes 5523 5mg Take 1 [facility] (ELIQUIS) 5 1-01 tablet by [facility] of mg tablet 00:00: [place] the [facility] morning [facility] and 1 tablet in the evening. Indication s: history of deep vein thrombosis apixaban 2021-07 Yes 5523 5mg Take 1 [facility] (ELIQUIS) 5 1-01 tablet by [facility] of mg tablet 00:00: [place] the [facility] morning [facility] and 1 tablet in the evening. Indication s: history of deep vein thrombosis apixaban 2021-07 Yes 5523 5mg Take 1 [facility] (ELIQUIS) 5 1-01 tablet by [facility] of mg tablet 00:00: [place] 00 the Medical morning Branch and 1 tablet in the evening. Indication s: history of deep vein thrombosis apixaban 2021-07 Yes 5523 5mg Take 1 [facility] (ELIQUIS) 5 1-01 tablet by [facility] of mg tablet 00:00: [place] 00 the Medical morning Branch and 1 tablet in the evening. Indication s: history of deep vein thrombosis apixaban 2021-07 Yes 5523 5mg Take 1 [facility] (ELIQUIS) 5 1-01 tablet by [facility] of mg tablet 00:00: [place] 00 the Medical morning Branch and 1 tablet in the evening. Indication s: history of deep vein thrombosis apixaban 2021-07 Yes 5523 5mg Take 1 [facility] (ELIQUIS) 5 1-01 tablet by [facility] of mg tablet 00:00: [place] 00 the Medical morning Branch and 1 tablet in the evening. Indication s: history of deep vein thrombosis apixaban 2021-07 Yes 5523 5mg Take 1 [facility] (ELIQUIS) 5 1-01 tablet by [facility] of mg tablet 00:00: [place] 00 the Medical morning Branch and 1 tablet in the evening. Indication s: history of deep vein thrombosis apixaban 2021-07 Yes 5523 5mg Take 1 [facility] (ELIQUIS) 5 1-01 tablet by [facility] of mg tablet 00:00: [place] 00 the Medical morning Branch and 1 tablet in the evening. Indication s: history of deep vein thrombosis apixaban 2021-07 Yes 5523 5mg Take 1 [facility] (ELIQUIS) 5 1-01 tablet by [facility] of mg tablet 00:00: [place] 00 the Medical morning Branch and 1 tablet in the evening. Indication s: history of deep vein thrombosis apixaban 2021-07 Yes 5523 5mg Take 1 [facility] (ELIQUIS) 5 1-01 tablet by [facility] of mg tablet 00:00: [place] 00 the Medical morning Branch and 1 tablet in the evening. Indication s: history of deep vein thrombosis apixaban 2021-07 Yes 5523 5mg Take 1 [facility] (ELIQUIS) 5 1-01 tablet by [facility] of mg tablet 00:00: [place] 00 the Medical morning Branch and 1 tablet in the evening. Indication s: history of deep vein thrombosis apixaban 2021-07 Yes 5523 5mg Take 1 [facility] (ELIQUIS) 5 1-01 tablet by [facility] of mg tablet 00:00: [place] 00 the Medical morning Branch and 1 tablet in the evening. Indication s: history of deep vein thrombosis apixaban 2021-07 Yes 5523 5mg Take 1 [facility] (ELIQUIS) 5 1-01 tablet by [facility] of mg tablet 00:00: [place] 00 the [facility] morning Branch and 1 tablet in the evening. Indication s: history of deep vein thrombosis apixaban 2021-07 Yes 5523 5mg Take 1 [facility] (ELIQUIS) 5 1-01 tablet by [facility] of mg tablet 00:00: [place] 00 the [facility] morning Branch and 1 tablet in the evening. Indication s: history of deep vein thrombosis apixaban 2021-07 Yes 5523 5mg Take 1 [facility] (ELIQUIS) 5 1-01 tablet by [facility] of mg tablet 00:00: [place] 00 the Medical morning Branch and 1 tablet in the evening. Indication s: history of deep vein thrombosis apixaban 2021-07 Yes 5523 5mg Take 1 [facility] (ELIQUIS) 5 1-01 tablet by [facility] of mg tablet 00:00: [place] 00 the Medical morning Branch and 1 tablet in the evening. Indication s: history of deep vein thrombosis apixaban 2021-07 Yes 5523 5mg Take 1 [facility] (ELIQUIS) 5 1-01 tablet by [facility] of mg tablet 00:00: [place] 00 the Medical morning Branch and 1 tablet in the evening. Indication s: history of deep vein thrombosis apixaban 2021-07 Yes 5523 5mg Take 1 [facility] (ELIQUIS) 5 1-01 tablet by [facility] of mg tablet 00:00: mouth [place] 00 the Medical morning Branch and 1 tablet in the evening. Indication s: history of deep vein thrombosis apixaban 2021-07 Yes 5523 5mg Take 1 [facility] (ELIQUIS) 5 1-01 tablet by [facility] of mg tablet 00:00: [place] 00 the Medical morning Branch and 1 tablet in the evening. Indication s: history of deep vein thrombosis apixaban 2021-07 Yes 5523 5mg Take 1 [facility] (ELIQUIS) 5 1-01 tablet by [facility] of mg tablet 00:00: [place] 00 the Medical morning Branch and 1 tablet in the evening. Indication s: history of deep vein thrombosis apixaban 2021-07 Yes 5523 5mg Take 1 [facility] (ELIQUIS) 5 1-01 tablet by [facility] of mg tablet 00:00: [place] 00 the Medical morning Branch and 1 tablet in the evening. Indication s: history of deep vein thrombosis apixaban 2021-07 Yes 5523 5mg Take 1 [facility] (ELIQUIS) 5 1-01 tablet by [facility] of mg tablet 00:00: [place] 00 the Medical morning Branch and 1 tablet in the evening. Indication s: history of deep vein thrombosis apixaban 2021-07 Yes 5523 5mg Take 1 [facility] (ELIQUIS) 5 1-01 tablet by [facility] of mg tablet 00:00: [place] 00 the Medical morning Branch and 1 tablet in the evening. Indication s: history of deep vein thrombosis apixaban 2021-07 Yes 5523 5mg Take 1 [facility] (ELIQUIS) 5 1-01 tablet by [facility] of mg tablet 00:00: [place] 00 the Medical morning Branch and 1 tablet in the evening. Indication s: history of deep vein thrombosis apixaban 2021-07 Yes 5523 5mg Take 1 [facility] (ELIQUIS) 5 1-01 tablet by [facility] of mg tablet 00:00: [place] the [facility] morning [facility] and 1 tablet in the evening. Indication s: history of deep vein thrombosis apixaban 2021-07 Yes 5523 5mg Take 1 [facility] (ELIQUIS) 5 1-01 tablet by [facility] of mg tablet 00:00: [place] the [facility] morning [facility] and 1 tablet in the evening. Indication s: history of deep vein thrombosis apixaban 2021-07 Yes 5523 5mg Take 1 [facility] (ELIQUIS) 5 1-01 tablet by [facility] of mg tablet 00:00: [place] the [facility] morning [facility] and 1 tablet in the evening. Indication s: history of deep vein thrombosis apixaban 2021-07 Yes 5523 5mg Take 1 [facility] (ELIQUIS) 5 1-01 tablet by [facility] of mg tablet 00:00: [place] 00 the Medical morning Branch and 1 tablet in the evening. Indication s: history of deep vein thrombosis apixaban 2021-07 Yes 5523 5mg Take 1 [facility] (ELIQUIS) 5 1-01 tablet by [facility] of mg tablet 00:00: [place] 00 the Medical morning Branch and 1 tablet in the evening. Indication s: history of deep vein thrombosis apixaban 2021-07 Yes 5523 5mg Take 1 [facility] (ELIQUIS) 5 1-01 tablet by [facility] of mg tablet 00:00: [place] 00 the Medical morning Branch and 1 tablet in the evening. Indication s: history of deep vein thrombosis apixaban 2021-07 Yes 5523 5mg Take 1 [facility] (ELIQUIS) 5 1-01 tablet by [facility]y of mg tablet 00:00: [place] 00 the Medical morning Branch and 1 tablet in the evening. Indication s: history of deep vein thrombosis apixaban 2021-07 Yes 5523 5mg Take 1 [facility] (ELIQUIS) 5 1-01 tablet by [facility] of mg tablet 00:00: [place] 00 the Medical morning Branch and 1 tablet in the evening. Indication s: history of deep vein thrombosis apixaban 2021-07 Yes 5523 5mg Take 1 [facility] (ELIQUIS) 5 1-01 tablet by [facility] of mg tablet 00:00: [place] 00 the Medical morning Branch and 1 tablet in the evening. Indication s: history of deep vein thrombosis apixaban 2021-07 Yes 5523 5mg Take 1 [facility] (ELIQUIS) 5 1-01 tablet by [facility] of mg tablet 00:00: [place] 00 the Medical morning Branch and 1 tablet in the evening. Indication s: history of deep vein thrombosis apixaban 2021-07 Yes 5523 5mg Take 1 [facility] (ELIQUIS) 5 1-01 tablet by [facility] of mg tablet 00:00: [place] 00 the Medical morning Branch and 1 tablet in the evening. Indication s: history of deep vein thrombosis apixaban 2021-07 Yes 5523 5mg Take 1 [facility] (ELIQUIS) 5 1-01 tablet by [facility] of mg tablet 00:00: [place] 00 the Medical morning Branch and 1 tablet in the evening. Indication s: history of deep vein thrombosis apixaban 2021-07 Yes 5523 5mg Take 1 [facility] (ELIQUIS) 5 1-01 tablet by [facility] of mg tablet 00:00: mouth [place] 00 the Medical morning Branch and 1 tablet in the evening. Indication s: history of deep vein thrombosis apixaban 2021-07 Yes 5523 5mg Take 1 [facility] (ELIQUIS) 5 1-01 tablet by [facility] of mg tablet 00:00: mouth [place] 00 the Medical morning Branch and 1 tablet in the evening. Indication s: history of deep vein thrombosis apixaban 2021-07 Yes 5523 5mg Take 1 [facility] (ELIQUIS) 5 1-01 tablet by [facility] of mg tablet 00:00: mouth [place] 00 the Medical morning Branch and 1 tablet in the evening. Indication s: history of deep vein thrombosis apixaban 2021-07 Yes 5523 5mg Take 1 [facility] (ELIQUIS) 5 1-01 tablet by [facility] of mg tablet 00:00: mouth [place] 00 the Medical morning Branch and 1 tablet in the evening. Indication s: history of deep vein thrombosis apixaban 2021-07 Yes 5523 5mg Take 1 [facility] (ELIQUIS) 5 1-01 tablet by [facility] of mg tablet 00:00: mouth [place] 00 the Medical morning Branch and 1 tablet in the evening. Indication s: history of deep vein thrombosis apixaban 2021-07 Yes 5523 5mg Take 1 [facility] (ELIQUIS) 5 1-01 tablet by [facility] of mg tablet 00:00: mouth [place] 00 the Medical morning Branch and 1 tablet in the evening. Indication s: history of deep vein thrombosis apixaban 2021-07 Yes 5523 5mg Take 1 [facility] (ELIQUIS) 5 1-01 tablet by [facility] of mg tablet 00:00: mouth [place] 00 the Medical morning Branch and 1 tablet in the evening. Indication s: history of deep vein thrombosis apixaban 2021-07 Yes 5523 5mg Take 1 [facility] (ELIQUIS) 5 1-01 tablet by [facility] of mg tablet 00:00: mouth [place] 00 the Medical morning Branch and 1 tablet in the evening. Indication s: history of deep vein thrombosis apixaban 2021-07 Yes 5523 5mg Take 1 [facility] (ELIQUIS) 5 1-01 tablet by [facility] of mg tablet 00:00: mouth [place] 00 the Medical morning Branch and 1 tablet in the evening. Indication s: history of deep vein thrombosis apixaban 2021-07 Yes 5523 5mg Take 1 [facility] (ELIQUIS) 5 1-01 tablet by [facility] of mg tablet 00:00: mouth [place] 00 the Medical morning Branch and 1 tablet in the evening. Indication s: history of deep vein thrombosis apixaban 2021-07 Yes 5523 5mg Take 1 [facility] (ELIQUIS) 5 1-01 tablet by ity of mg tablet 00:00: mouth in the Branch and 1 tablet in the evening. Indication s: history of deep vein thrombosis apixaban 2021-07 Yes 5523 5mg Take 1 [facility] (ELIQUIS) 5 1-01 tablet by ity of mg tablet 00:00: mouth in the Branch and 1 tablet in the evening. Indication s: history of deep vein thrombosis apixaban 2021-07 Yes 5523 5mg Take 1 [facility] (ELIQUIS) 5 1-01 tablet by ity of mg tablet 00:00: mouth in the Branch and 1 tablet in the evening. Indication s: history of deep vein thrombosis enoxaparin 2021-07 Yes [id number] 100mg inject 1 [facility] (LOVENOX) 0-26 [id number] mL under [facility] of 100 mg/mL 00:[place]: [place] injection 00 every 12 Medica l (twelve) Branch hours. enoxaparin 2021-07 Yes [id number] 100mg inject 1 [facility] (LOVENOX) 0-26 [id number] mL under [place] of 100 mg/mL 00:00: [place] injection 00 every 12 Medica l (twelve) Branch hours. enoxaparin 2021-07 Yes [id number] 100mg inject 1 [facility] (LOVENOX) 0-26 [id number] mL under ity of 100 mg/mL 00:00: the [place] injection 00 every 12 Medica l (twelve) Branch hours. enoxaparin 2021-07 Yes [id number] 100mg inject 1 [facility] (LOVENOX) 0-26 [id number] mL under ity of 100 mg/mL 00:00: [place] injection 00 every 12 Medica l (twelve) Branch hours. enoxaparin 2021-07 Yes [id number] 100mg inject 1 [facility] (LOVENOX) 0-26 [id number] mL under ity of 100 mg/mL 00:00: [place] injection 00 every 12 Medica l (twelve) Branch hours. enoxaparin 2021-07 Yes [id number] 100mg inject 1 [facility] (LOVENOX) 0-26 [id number] mL under ity of 100 mg/mL 00:00: [place] injection 00 every 12 Medica l (twelve) Branch hours. enoxaparin 2021-07 Yes [id number] 100mg inject 1 [facility] (LOVENOX) 0-26 [id number] mL under ity of 100 mg/mL 00:00: the [place] injection 00 every 12 Medica l (twelve) Branch hours. enoxaparin 2021-07 Yes [id number] 100mg inject 1 [facility] (LOVENOX) 0-26 [id number] mL under ity of 100 mg/mL 00:00: [place] injection 00 every 12 Medica l (twelve) Branch hours. enoxaparin 2021-07 Yes [id number] 100mg inject 1 [facility] (LOVENOX) 0-26 [id number] mL under ity of 100 mg/mL 00:00: [place] injection 00 every 12 Medica l (twelve) Branch hours. enoxaparin 2021-07- No [id number] 100mg inject 1 [facility] (LOVENOX) 0-26 11-01 [id number] mL under ity of 100 mg/mL 00:00: 00:00 the [place] injection 00 :00 every 12 Medica l (twelve) Branch hours. enoxaparin 2021-07- No [id number] 100mg inject 1 [facility] (LOVENOX) 0-26 11-01 [id number] mL under ity of 100 mg/mL 00:00: 00:00 the [place] injection 00 :00 every 12 Medica l (twelve) Branch hours. enoxaparin 2021-07- No [id number] 100mg inject 1 [facility] (LOVENOX) 0-26 11-01 [id number] mL under ity of 100 mg/mL 00:00: 00:00 the [place] 00 :00 every 12 Medica l (twelve) Branch hours. enoxaparin 2021-07- No [id number] 100mg inject 1 [facility] (LOVENOX) 0-26 11-01 [id number] mL under ity of 100 mg/mL 00:00: 00:00 the [place] injection 00 :00 every 12 Medica l (twelve) Branch hours. enoxaparin 2021-07- No [id number] 100mg inject 1 [facility] (LOVENOX) 0-26 11- [id number] mL under ity of 100 mg/mL 00:00: 00:00 the [place] injection 00 :00 every 12 Medica l (twelve) Branch hours. enoxaparin 2021-07- No [id number] 100mg inject 1 [facility] (LOVENOX) 0-26 11- [id number] mL under ity of 100 mg/mL 00:00: 00:00 the [place] injection 00 :00 every 12 Medica l (twelve) Branch hours. enoxaparin 2021-07- No [id number] 100mg inject 1 [facility] (LOVENOX) 0-26 11- [id number] mL under ity of 100 mg/mL 00:00: 00:00 the [place] injection 00 :00 every 12 Medica l (twelve) Branch hours. enoxaparin 2021-07- No 1mg/kg 100 mg Un bry (LOVENOX) 0-25 10-25 (rounded ity o f injection 00:00: 00:22 [place] 100 mg 00 :00 mg = 1 Medical mg/kg Branch ?103.4 kg), Subcutaneo us, ONCE, 1 dose, On Sun05/01/22 at 1900, [facility]NA enoxaparin 2021-07- No [id number] 100mg inject 1 [facility] (LOVENOX) 0-24 11-24 [id number] mL under ity of 100 mg/mL 00:00: 05:59 [place] injection 00 :00 every 12 Medica l (twelve) Branch hours for 30 days. enoxaparin 2021-07- No [id number] 100mg inject 1 [facility] (LOVENOX) 0-24 11-24 [id number] mL under ity of 100 mg/mL 00:00: 05:59 the [place] injection 00 :00 every 12 Medica l (twelve) Branch hours for 30 days. enoxaparin 2021-07- No [id number] 100mg inject 1 [facility] (LOVENOX) 0-24 11-24 [id number] mL under ity of 100 mg/mL 00:00: 05:59 the [place] injection 00 :00 every 12 Medica l (twelve) Branch hours for 30 days. enoxaparin 2021-07- No [id number] 100mg inject 1 [facility] (LOVENOX) 0-24 11-24 [id number] mL under ity of 100 mg/mL 00:00: 05:59 the [place] injection 00 :00 every 12 Medica l (twelve) Branch hours for 30 days. enoxaparin 2021-2021- No [id number] 100mg inject 1 [facility] (LOVENOX) 0-24 11-24 [id number] mL under ity of 100 mg/mL 00:00: 05:59 the [place] injection 00 :00 every 12 Medica l (twelve) Branch hours for 30 days. enoxaparin 2021-07- No [id number] 100mg inject 1 [facility] (LOVENOX) 0-24 11-24 [id number] mL under ity of 100 mg/mL 00:00: 05:59 the [place] injection 00 :00 every 12 Medica l (twelve) Branch hours for 30 days. enoxaparin 2021-07- No [id number] 100mg inject 1 [facility] (LOVENOX) 0-24 10-26 [id number] mL under ity of 100 mg/mL 00:00: 00:00 the [place] injection 00 :00 every 12 Medica l (twelve) Branch hours for 30 days. enoxaparin 2021-07- No [id number] 100mg inject 1 [facility] (LOVENOX) 0-24 10-26 [id number] mL under ity of 100 mg/mL 00:00: 00:00 the [place] injection 00 :00 every 12 Medica l (twelve) Branch hours for 30 days. enoxaparin 2021-2021- No [id number] 100mg inject 1 [facility] (LOVENOX) 0-24 10-26 [id number] mL under ity of 100 mg/mL 00:00: 00:00 the [place] injection 00 :00 every 12 Medica l (twelve) Branch hours for 30 days. enoxaparin 2021-2021- No [id number] 100mg inject 1 [facility] (LOVENOX) 0-24 10-26 [id number] mL under ity of 100 mg/mL 00:00: 00:00 the [place] injection 00 :00 every 12 Medica l (twelve) Branch hours for 30 days. enoxaparin 2021-07- No [id number] 100mg inject 1 [facility] (LOVENOX) 0-24 10- [id number] mL under ity of 100 mg/mL 00:00: 00:00 the [place] injection 00 :00 every 12 Medica l (twelve) Branch hours for 30 days. enoxaparin 2021-07- No [id number] 100mg inject 1 [facility] (LOVENOX) 0-24 10- 677814 mL under ity of 100 mg/mL 00:00: 00:00 the [place] injection 00 :00 every 12 Medica l (twelve) Branch hours for 30 days. FENTanyl PF 2021-07 Yes Slow IV Uni vers (SUBLIMAZE 0-19 Push, PRN, ity of (PF)) 15:12: Starting [place] injection 43 on [facility] 04/26/22 Branch at 1012, Until Discontinu ed, Routine FENTanyl PF 2021-07- No Slow IV Un bry (SUBLIMAZE 0-19 10-20 Push, PRN, it y of (PF)) 15:12: 09:10 Starting [place] injection 43 :59 on [facility] 04/26/22 Branch at 1012, Until [place] 04/27/22 at 0410, Routine midazolam 2021-07 Yes IV Push, Univ ers (VERSED) 0-19 PRN, ity of injection 15:12: [place] 40 on [facility] 04/26/22 Branch at 1012, Until Discontinu ed, Routine midazolam 2021-07- No IV Push, Uni vers (VERSED) 0-19 10-20 PRN, ity of injection 15:12: 09:10 Starting [place] 40 :59 on [facility] 04/26/22 Branch at 1012, Until [place] 04/27/22 at 0410, Routine ceFAZolin 2021-07 Yes Slow IV Unive rs (ANCEF) 0-19 Push, PRN, ity of injection 14:55: [place] 40 on [facility] 04/26/22 Branch at 0955, Until Discontinu ed, [facility]ESNA ceFAZolin 2021-07- No Slow IV Univ ers (ANCEF) 0-19 10-20 Push, PRN, ity o f injection 14:55: 09:10 Starting [place] 40 :59 on Wed Medical 04/26/22 Branch at 0955, Until [place] 04/27/22 at 0410, [facility]NA iopamidol 2021-07- No [id number] 120mL 120 mL, Univers (ISOVUE 0-14 10-14 Intravenou ity o f 370-500 mL) 17:15: 16:26 s, ONCE, 1 [place] injection 00 :00 dose, On Medica l 120 mL Fri Branch 04/21/22 at 1215, Routine levetiracet 2021-07 Yes 500mg Take 500 U nivers am (KEPPRA 0-14 mg by ity of ORAL) 09:20: mouth [address] [place] [id number] (two) Medical times Branch daily. levetiracet 2021-07 Yes 500mg Take 500 U nivers am (KEPPRA 0-14 mg by ity of ORAL) 09:20: mouth [address] [place] [address] (two) Medical times Branch daily. levetiracet 2021-07 Yes 500mg Take 500 U nivers am (KEPPRA 0-14 mg by ity of ORAL) 09:20: mouth [address] [place] [address] (two) Medical times Branch daily. levetiracet 2021-07 Yes 500mg Take 500 U nivers am (KEPPRA 0-14 mg by ity of ORAL) 09:20: mouth [address] [place] [address] (two) Medical times Branch daily. levetiracet 2021-07 Yes 500mg Take 500 U nivers am (KEPPRA 0-14 mg by ity of ORAL) 09:20: mouth [address] [place] [address] (two) Medical times Branch daily. levetiracet 2021-07 Yes 500mg Take 500 U nivers am (KEPPRA 0-14 mg by ity of ORAL) 09:20: mouth [address] [place] [address] (two) Medical times Branch daily. levetiracet 2021- Yes 500mg Take 500 U nivers am (KEPPRA 0-14 mg by ity of ORAL) 09:20: mouth [address] [place] [address] (two) Medical times Branch daily. levetiracet 2021- Yes 500mg Take 500 U nivers am (KEPPRA 0-14 mg by ity of ORAL) 09:20: mouth [address] [place] [address] (two) Medical times Branch daily. levetiracet 2-1 Yes 500mg Take 500 U nivers am (KEPPRA 0-14 mg by ity of ORAL) 09:20: mouth [address] [place] [address] (two) Medical times Branch daily. levetiracet 2-1 Yes 500mg Take 500 U nivers am (KEPPRA 0-14 mg by ity of ORAL) 09:20: mouth [address] [place] [address] (two) Medical times Branch daily. levetiracet 2-1 Yes 500mg Take 500 U nivers am (KEPPRA 0-14 mg by ity of ORAL) 09:20: mouth [address] [place] [address] (two) Medical times Branch daily. levetiracet 2-1 Yes 500mg Take 500 U nivers am (KEPPRA 0-14 mg by ity of ORAL) 09:20: [place] [address] (two) Medical times Branch daily. levetiracet 2021-1 Yes 500mg Take 500 U nivers am (KEPPRA 0-14 mg by ity of ORAL) 09:20: [place] [address] (two) Medical times Branch daily. levetiracet 2021-1 Yes 500mg Take 500 U nivers am (KEPPRA 0-14 mg by ity of ORAL) 09:20: [place] [address] (two) Medical times Branch daily. levetiracet 2021-1 Yes 500mg Take 500 U nivers am (KEPPRA 0-14 mg by ity of ORAL) 09:20: [place] [address] (two) Medical times Branch daily. levetiracet 2021-1 Yes 500mg Take 500 U nivers am (KEPPRA 0-14 mg by ity of ORAL) 09:20: [place] [address] (two) Medical times Branch daily. levetiracet 2-1 Yes 500mg Take 500 U nivers am (KEPPRA 0-14 mg by ity of ORAL) 09:20: [place] [address] (two) Medical times Branch daily. levetiracet 2-1 Yes 500mg Take 500 U nivers am (KEPPRA 0-14 mg by ity of ORAL) 09:20: [place] [address] (two) Medical times Branch daily. levetiracet 2021- Yes 500mg Take 500 U n[facility] am (KEPPRA 0-14 mg by ity of ORAL) 09:20: mouth [address] [place] [address] (two) Medical times Branch daily. levetiracet 2021-1 Yes 500mg Take 500 U n[facility] am (KEPPRA 0-14 mg by ity of ORAL) 09:20: mouth [address] [place] [address] (two) Medical times Branch daily. levetiracet 2021-1 Yes 500mg Take 500 U n[facility] am (KEPPRA 0-14 mg by ity of ORAL) 09:20: mouth [address] [place] [address] (two) Medical times Branch daily. levetiracet 2021-1 Yes 500mg Take 500 U nivers am (KEPPRA 0-14 mg by ity of ORAL) 09:20: mouth [address] [place] [address] (two) Medical times Branch daily. levetiracet 2021- Yes 500mg Take 500 U nivers am (KEPPRA 0-14 mg by ity of ORAL) 09:20: [place] [address] (two) Medical times Branch daily. levetiracet 2021- Yes 500mg Take 500 U nivers am (KEPPRA 0-14 mg by ity of ORAL) 09:20: [place] [address] (two) Medical times Branch daily. levetiracet 2021- Yes 500mg Take 500 U nivers am (KEPPRA 0-14 mg by ity of ORAL) 09:20: [place] [address] (two) Medical times Branch daily. levetiracet 2021-1 Yes 500mg Take 500 U nivers am (KEPPRA 0-14 mg by ity of ORAL) 09:20: [place] [address] (two) Medical times Branch daily. levetiracet 2021-1 Yes 500mg Take 500 U nivers am (KEPPRA 0-14 mg by ity of ORAL) 09:20: mouth [address] [place] [address] (two) Medical times Branch daily. levetiracet 2-1 Yes 500mg Take 500 U nivers am (KEPPRA 0-14 mg by ity of ORAL) 09:20: mouth [address] [place] [address] (two) Medical times Branch daily. levetiracet 2-1 Yes 500mg Take 500 U nivers am (KEPPRA 0-14 mg by ity of ORAL) 09:20: mouth [address] [place] [address] (two) Medical times Branch daily. levetiracet 2-1 Yes 500mg Take 500 U nivers am (KEPPRA 0-14 mg by ity of ORAL) 09:20: mouth [address] [place] [address] (two) Medical times Branch daily. levetiracet 2-1 Yes 500mg Take 500 U nivers am (KEPPRA 0-14 mg by ity of ORAL) 09:20: mouth [address] [place] [address] (two) Medical times Branch daily. levetiracet 2-1 Yes 500mg Take 500 U nivers am (KEPPRA 0-14 mg by ity of ORAL) 09:20: [place] [address] (two) Medical times Branch daily. levetiracet 2-1 Yes 500mg Take 500 U nivers am (KEPPRA 0-14 mg by ity of ORAL) 09:20: [place] [address] (two) Medical times Branch daily. levetiracet 2-1 Yes 500mg Take 500 U nivers am (KEPPRA 0-14 mg by ity of ORAL) 09:20: mouth [address] [place] [address] (two) Medical times Branch daily. levetiracet 2-1 Yes 500mg Take 500 U nivers am (KEPPRA 0-14 mg by ity of ORAL) 09:20: [place] [address] (two) Medical times Branch daily. levetiracet 2-1 Yes 500mg Take 500 U nivers am (KEPPRA 0-14 mg by ity of ORAL) 09:20: [place] [address] (two) Medical times Branch daily. levetiracet 2-1 Yes 500mg Take 500 U nivers am (KEPPRA 0-14 mg by ity of ORAL) 09:20: [place] [address] (two) Medical times Branch daily. levetiracet 2-1 Yes 500mg Take 500 U nivers am (KEPPRA 0-14 mg by ity of ORAL) 09:20: [place] [address] (two) Medical times Branch daily. levetiracet 2-1 Yes 500mg Take 500 U nivers am (KEPPRA 0-14 mg by ity of ORAL) 09:20: mouth [address] [place] [address] (two) Medical times Branch daily. levetiracet 2-1 Yes 500mg Take 500 U nivers am (KEPPRA 0-14 mg by ity of ORAL) 09:20: mouth [address] [place] [address] (two) Medical times Branch daily. levetiracet 2-1 Yes 500mg Take 500 U nivers am (KEPPRA 0-14 mg by ity of ORAL) 09:20: mouth [address] [place] [address] (two) Medical times Branch daily. levetiracet 2-1 Yes 500mg Take 500 U nivers am (KEPPRA 0-14 mg by ity of ORAL) 09:20: mouth [address] [place] [address] (two) Medical times Branch daily. levetiracet 2-1 Yes 500mg Take 500 U nivers am (KEPPRA 0-14 mg by ity of ORAL) 09:20: [place] [address] (two) Medical times Branch daily. levetiracet 2021-1 Yes 500mg Take 500 U nivers am (KEPPRA 0-14 mg by ity of ORAL) 09:20: [place] [address] (two) Medical times Branch daily. levetiracet 2021-1 Yes 500mg Take 500 U nivers am (KEPPRA 0-14 mg by ity of ORAL) 09:20: [place] [address] (two) Medical times Branch daily. levetiracet 2021-1 Yes 500mg Take 500 U nivers am (KEPPRA 0-14 mg by ity of ORAL) 09:20: [place] [address] (two) Medical times Branch daily. levetiracet 2-1 Yes 500mg Take 500 U nivers am (KEPPRA 0-14 mg by ity of ORAL) 09:20: [place] [address] (two) Medical times Branch daily. levetiracet 2-1 Yes 500mg Take 500 U nivers am (KEPPRA 0-14 mg by ity of ORAL) 09:20: [place] [address] (two) Medical times Branch daily. levetiracet 2-1 Yes 500mg Take 500 U nivers am (KEPPRA 0-14 mg by ity of ORAL) 09:20: [place] [address] (two) Medical times Branch daily. levetiracet 2-1 Yes 500mg Take 500 U nivers am (KEPPRA 0-14 mg by ity of ORAL) 09:20: mouth [address] [place] [address] (two) Medical times Branch daily. levetiracet 2-1 Yes 500mg Take 500 U nivers am (KEPPRA 0-14 mg by ity of ORAL) 09:20: mouth [address] [place] [address] (two) Medical times Branch daily. levetiracet 2021-1 Yes 500mg Take 500 U nivers am (KEPPRA 0-14 mg by ity of ORAL) 09:20: mouth [address] [place] [address] (two) Medical times Branch daily. levetiracet 2021- Yes 500mg Take 500 U nivers am (KEPPRA 0-14 mg by ity of ORAL) 09:20: [place] [address] (two) Medical times Branch daily. levetiracet 2021-1 Yes 500mg Take 500 U nivers am (KEPPRA 0-14 mg by ity of ORAL) 09:20: [place] [address] (two) Medical times Branch daily. levetiracet 2021- Yes 500mg Take 500 U nivers am (KEPPRA 0-14 mg by ity of ORAL) 09:20: mouth [address] [place] [address] (two) Medical times Branch daily. levetiracet 2021-1 Yes 500mg Take 500 U nivers am (KEPPRA 0-14 mg by ity of ORAL) 09:20: [place] [address] (two) Medical times Branch daily. levetiracet 2021-1 Yes 500mg Take 500 U nivers am (KEPPRA 0-14 mg by ity of ORAL) 09:20: [place] [address] (two) Medical times Branch daily. levetiracet 2021-1 Yes 500mg Take 500 U nivers am (KEPPRA 0-14 mg by ity of ORAL) 09:20: [place] [address] (two) Medical times Branch daily. levetiracet 2-1 Yes 500mg Take 500 U nivers am (KEPPRA 0-14 mg by ity of ORAL) 09:20: [place] [address] (two) Medical times Branch daily. levetiracet 2-1 Yes 500mg Take 500 U nivers am (KEPPRA 0-14 mg by ity of ORAL) 09:20: mouth [address] [place] [address] (two) Medical times Branch daily. levetiracet 2-1 Yes 500mg Take 500 U nivers am (KEPPRA 0-14 mg by ity of ORAL) 09:20: mouth [address] [place] [address] (two) Medical times Branch daily. levetiracet 2-1 Yes 500mg Take 500 U nivers am (KEPPRA 0-14 mg by ity of ORAL) 09:20: mouth [address] [place] [address] (two) Medical times Branch daily. levetiracet 2-1 Yes 500mg Take 500 U nivers am (KEPPRA 0-14 mg by ity of ORAL) 09:20: mouth [address] [place] [address] (two) Medical times Branch daily. levetiracet 2-1 Yes 500mg Take 500 U nivers am (KEPPRA 0-14 mg by ity of ORAL) 09:20: mouth [address] [place] [address] (two) Medical times Branch daily. levetiracet 2-1 Yes 500mg Take 500 U nivers am (KEPPRA 0-14 mg by ity of ORAL) 09:20: [place] [address] (two) Medical times Branch daily. levetiracet 2-1 Yes 500mg Take 500 U nivers am (KEPPRA 0-14 mg by ity of ORAL) 09:20: [place] [address] (two) Medical times Branch daily. levetiracet 2-1 Yes 500mg Take 500 U nivers am (KEPPRA 0-14 mg by ity of ORAL) 09:20: [place] [address] (two) Medical times Branch daily. levetiracet 2-1 Yes 500mg Take 500 U nivers am (KEPPRA 0-14 mg by ity of ORAL) 09:20: [place] [address] (two) Medical times Branch daily. levetiracet 2-1 Yes 500mg Take 500 U nivers am (KEPPRA 0-14 mg by ity of ORAL) 09:20: mouth [address] [place] [address] (two) Medical times Branch daily. levetiracet 2-1 Yes 500mg Take 500 U nivers am (KEPPRA 0-14 mg by ity of ORAL) 09:20: [place] [address] (two) Medical times Branch daily. levetiracet 2022-1 Yes 500mg Take 500 U nivers am (KEPPRA 0-14 mg by ity of ORAL) 09:20: mouth [address] [place] [address] (two) Medical times Branch daily. levetiracet 2-1 Yes 500mg Take 500 U nivers am (KEPPRA 0-14 mg by ity of ORAL) 09:20: mouth [address] [place] [address] (two) Medical times Branch daily. levetiracet 2-1 Yes 500mg Take 500 U nivers am (KEPPRA 0-14 mg by ity of ORAL) 09:20: mouth [address] [place] [address] (two) Medical times Branch daily. levetiracet 2021-1 Yes 500mg Take 500 U nivers am (KEPPRA 0-14 mg by ity of ORAL) 09:20: mouth [address] [place] [address] (two) Medical times Branch daily. levetiracet 2021-1 Yes 500mg Take 500 U nivers am (KEPPRA 0-14 mg by ity of ORAL) 09:20: [place] [address] (two) Medical times Branch daily. levetiracet 2021- Yes 500mg Take 500 U nivers am (KEPPRA 0-14 mg by ity of ORAL) 09:20: mouth [address] [place] [address] (two) Medical times Branch daily. levetiracet 2021-1 Yes 500mg Take 500 U nivers am (KEPPRA 0-14 mg by ity of ORAL) 09:20: [place] [address] (two) Medical times Branch daily. levetiracet 2021-1 Yes 500mg Take 500 U nivers am (KEPPRA 0-14 mg by ity of ORAL) 09:20: [place] [address] (two) Medical times Branch daily. levetiracet 2021-1 Yes 500mg Take 500 U nivers am (KEPPRA 0-14 mg by ity of ORAL) 09:20: [place] [address] (two) Medical times Branch daily. levetiracet 2-1 Yes 500mg Take 500 U nivers am (KEPPRA 0-14 mg by ity of ORAL) 09:20: mouth [address] [place] [address] (two) Medical times Branch daily. levetiracet 2-1 Yes 500mg Take 500 U nivers am (KEPPRA 0-14 mg by ity of ORAL) 09:20: mouth [address] [place] [address] (two) Medical times Branch daily. levetiracet 2-1 Yes 500mg Take 500 U nivers am (KEPPRA 0-14 mg by ity of ORAL) 09:20: mouth [address] [place] [address] (two) Medical times Branch daily. levetiracet 2-1 Yes 500mg Take 500 U nivers am (KEPPRA 0-14 mg by ity of ORAL) 09:20: mouth [address] [place] [address] (two) Medical times Branch daily. levetiracet 2-1 Yes 500mg Take 500 U nivers am (KEPPRA 0-14 mg by ity of ORAL) 09:20: mouth [address] [place] [address] (two) Medical times Branch daily. levetiracet 2-1 Yes 500mg Take 500 U nivers am (KEPPRA 0-14 mg by ity of ORAL) 09:20: [place] [address] (two) Medical times Branch daily. levetiracet 2-1 Yes 500mg Take 500 U nivers am (KEPPRA 0-14 mg by ity of ORAL) 09:20: [place] [address] (two) Medical times Branch daily. levetiracet 2-1 Yes 500mg Take 500 U nivers am (KEPPRA 0-14 mg by ity of ORAL) 09:20: [place] [address] (two) Medical times Branch daily. levetiracet 2-1 Yes 500mg Take 500 U nivers am (KEPPRA 0-14 mg by ity of ORAL) 09:20: [place] [address] (two) Medical times Branch daily. levetiracet 2-1 Yes 500mg Take 500 U nivers am (KEPPRA 0-14 mg by ity of ORAL) 09:20: [place] [address] (two) Medical times Branch daily. levetiracet 2-1 Yes 500mg Take 500 U nivers am (KEPPRA 0-14 mg by ity of ORAL) 09:20: [place] [address] (two) Medical times Branch daily. levetiracet 2-1 Yes 500mg Take 500 U nivers am (KEPPRA 0-14 mg by ity of ORAL) 09:20: mouth [address] [place] [address] (two) Medical times Branch daily. levetiracet 2021- Yes 500mg Take 500 U nivers am (KEPPRA 0-14 mg by ity of ORAL) 09:20: [place] [address] (two) Medical times Branch daily. levetiracet 2-1 Yes 500mg Take 500 U nivers am (KEPPRA 0-14 mg by ity of ORAL) 09:20: [place] [address] (two) Medical times Branch daily. levetiracet 2-1 Yes 500mg Take 500 U nivers am (KEPPRA 0-14 mg by ity of ORAL) 09:20: mouth [address] [place] [address] (two) Medical times Branch daily. levetiracet 2021-1 Yes 500mg Take 500 U nivers am (KEPPRA 0-14 mg by ity of ORAL) 09:20: [place] [address] (two) Medical times Branch daily. levetiracet 2021-1 Yes 500mg Take 500 U nivers am (KEPPRA 0-14 mg by ity of ORAL) 09:20: [place] [address] (two) Medical times Branch daily. levetiracet 2021- Yes 500mg Take 500 U nivers am (KEPPRA 0-14 mg by ity of ORAL) 09:20: [place] [address] (two) Medical times Branch daily. levetiracet 2021-1 Yes 500mg Take 500 U nivers am (KEPPRA 0-14 mg by ity of ORAL) 09:20: [place] [address] (two) Medical times Branch daily. levetiracet 2021-1 Yes 500mg Take 500 U nivers am (KEPPRA 0-14 mg by ity of ORAL) 09:20: [place] [address] (two) Medical times Branch daily. levetiracet 2021-1 Yes 500mg Take 500 U nivers am (KEPPRA 0-14 mg by ity of ORAL) 09:20: [place] [address] (two) Medical times Branch daily. levetiracet 2-1 Yes 500mg Take 500 U nivers am (KEPPRA 0-14 mg by ity of ORAL) 09:20: [place] [address] (two) Medical times Branch daily. levetiracet 2-1 Yes 500mg Take 500 U nivers am (KEPPRA 0-14 mg by ity of ORAL) 09:20: mouth [address] [place] [address] (two) Medical times Branch daily. levetiracet 2-1 Yes 500mg Take 500 U nivers am (KEPPRA 0-14 mg by ity of ORAL) 09:20: mouth [address] [place] [address] (two) Medical times Branch daily. levetiracet 2-1 Yes 500mg Take 500 U nivers am (KEPPRA 0-14 mg by ity of ORAL) 09:20: mouth [address] [place] [address] (two) Medical times Branch daily. levetiracet 2-1 Yes 500mg Take 500 U nivers am (KEPPRA 0-14 mg by ity of ORAL) 09:20: mouth [address] [place] [address] (two) Medical times Branch daily. levetiracet 2-1 Yes 500mg Take 500 U nivers am (KEPPRA 0-14 mg by ity of ORAL) 09:20: [place] [address] (two) Medical times Branch daily. levetiracet 2021-1 Yes 500mg Take 500 U nivers am (KEPPRA 0-14 mg by ity of ORAL) 09:20: mouth [address] [place] [address] (two) Medical times Branch daily. levetiracet 2021-1 Yes 500mg Take 500 U nivers am (KEPPRA 0-14 mg by ity of ORAL) 09:20: [place] [address] (two) Medical times Branch daily. levetiracet 2-1 Yes 500mg Take 500 U nivers am (KEPPRA 0-14 mg by ity of ORAL) 09:20: [place] [address] (two) Medical times Branch daily. levetiracet 2-1 Yes 500mg Take 500 U nivers am (KEPPRA 0-14 mg by ity of ORAL) 09:20: [place] [address] (two) Medical times Branch daily. levetiracet 2-1 Yes 500mg Take 500 U nivers am (KEPPRA 0-14 mg by ity of ORAL) 09:20: mouth [address] [place] [address] (two) Medical times Branch daily. levetiracet 2-1 Yes 500mg Take 500 U nivers am (KEPPRA 0-14 mg by ity of ORAL) 09:20: mouth [address] [place] [address] (two) Medical times Branch daily. levetiracet 2-1 Yes 500mg Take 500 U nivers am (KEPPRA 0-14 mg by ity of ORAL) 09:20: mouth [address] [place] [address] (two) Medical times Branch daily. levetiracet 2-1 Yes 500mg Take 500 U nivers am (KEPPRA 0-14 mg by ity of ORAL) 09:20: mouth [address] [place] [address] (two) Medical times Branch daily. levetiracet 2-1 Yes 500mg Take 500 U nivers am (KEPPRA 0-14 mg by ity of ORAL) 09:20: mouth [address] [place] [address] (two) Medical times Branch daily. levetiracet 2-1 Yes 500mg Take 500 U nivers am (KEPPRA 0-14 mg by ity of ORAL) 09:20: [place] [address] (two) Medical times Branch daily. levetiracet 2-1 Yes 500mg Take 500 U nivers am (KEPPRA 0-14 mg by ity of ORAL) 09:20: [place] [address] (two) Medical times Branch daily. levetiracet 2021-1 Yes 500mg Take 500 U nivers am (KEPPRA 0-14 mg by ity of ORAL) 09:20: [place] [address] (two) Medical times Branch daily. levetiracet 2-1 Yes 500mg Take 500 U nivers am (KEPPRA 0-14 mg by ity of ORAL) 09:20: [place] [address] (two) Medical times Branch daily. levetiracet 2-1 Yes 500mg Take 500 U nivers am (KEPPRA 0-14 mg by ity of ORAL) 09:20: [place] [address] (two) Medical times Branch daily. levetiracet 2-1 Yes 500mg Take 500 U nivers am (KEPPRA 0-14 mg by ity of ORAL) 09:20: [place] [address] (two) Medical times Branch daily. levetiracet 2-1 Yes 500mg Take 500 U nivers am (KEPPRA 0-14 mg by ity of ORAL) 09:20: [place] [address] (two) Medical times Branch daily. levetiracet 2-1 Yes 500mg Take 500 U nivers am (KEPPRA 0-14 mg by ity of ORAL) 09:20: mouth 2 [place] [address] (two) Medical times Branch daily. levetiracet 2021- Yes 500mg Take 500 U nivers am (KEPPRA 0-14 mg by ity of ORAL) 09:20: mouth 2 [place] (two) Medical times Branch daily. levetiracet 2021- Yes 500mg Take 500 U nivers am (KEPPRA 0-14 mg by ity of ORAL) 09:20: mouth 2 [place] [address] (two) Medical times Branch daily. levetiracet 2021-07 Yes 500mg Take 500 U nivers am (KEPPRA 0-14 mg by ity of ORAL) 09:20: mouth 2 [place] [address] (two) Medical times Branch daily. levetiracet 2021-07 Yes 500mg Take 500 U nivers am (KEPPRA 0-14 mg by ity of ORAL) 09:20: mouth 2 [place] [address] (two) Medical times Branch daily. levetiracet 2021-07 Yes 500mg Take 500 U nivers am (KEPPRA 0-14 mg by ity of ORAL) 09:20: mouth 2 [place] [address] (two) Medical times Branch daily. levetiracet 2021- Yes 500mg Take 500 U nivers am (KEPPRA 0-14 mg by ity of ORAL) 09:20: mouth 2 [place] [address] (two) Medical times Branch daily. FLUTICASONE 2021-07 Yes [id number] SHAKE U nivers PROPIONATE 0-12 LIQUID AND ity of 50 00:00: USE 1 [place] mcg/actuati 00 SPRAY IN Medi janet on nasal EACH Branch spray NOSTRIL TWICE DAILY FLUTICASONE 2021-07 Yes [id number] SHAKE U nivers PROPIONATE 0-12 LIQUID AND ity of 50 00:00: USE 1 [place] mcg/actuati 00 SPRAY IN Medi janet on nasal EACH Branch spray NOSTRIL TWICE DAILY nadoloL 40 2021-07 Yes [id number] 40mg Take 1 [place] [facility] mg tablet 0-12 tablet by ity o f 00:00: mouth in [place] 00 the Medical morning. Branch FLUTICASONE 2021-07 Yes [id number] SHAKE U nivers PROPIONATE 0-12 LIQUID AND ity of 50 00:00: USE 1 [place] mcg/actuati 00 SPRAY IN [facility] on nasal EACH Branch spray NOSTRIL TWICE DAILY nadoloL 40 2021-07 Yes [id number] 40mg Take 1 [place] mg tablet 0-12 tablet by ity o f 00:00: mouth in [place] the Medical morning. Branch FLUTICASONE 2021-07 Yes [id number] SHAKE U nivers PROPIONATE 0-12 LIQUID AND ity of 50 00:00: USE 1 [place] mcg/actuati 00 SPRAY IN [facility] on nasal EACH Branch spray NOSTRIL TWICE DAILY nadoloL 40 2021-07 Yes [id number] 40mg Take 1 [place] [facility] mg tablet 0-12 tablet by ity o f 00:00: mouth in [place] the Medical morning. Branch FLUTICASONE 2021-07 Yes [id number] SHAKE U nivers PROPIONATE 0-12 LIQUID AND ity of 50 00:00: USE 1 [place] mcg/actuati 00 SPRAY IN [facility] on nasal EACH Branch spray NOSTRIL TWICE DAILY nadoloL 40 2021-07 Yes [id number] 40mg Take 1 [place] [facility] mg tablet 0-12 tablet by ity o f 00:00: mouth in [place] the Medical morning. Branch FLUTICASONE 2021-07 Yes [id number] SHAKE U nivers PROPIONATE 0-12 LIQUID AND ity of 50 00:00: USE 1 [place] mcg/actuati 00 SPRAY IN [facility] on nasal EACH Branch spray NOSTRIL TWICE DAILY nadoloL 40 2021-07 Yes [id number] 40mg Take 1 [place] [facility] mg tablet 0-12 tablet by ity o f 00:00: mouth in [place] the Medical morning. Branch FLUTICASONE 2021-07 Yes [id number] SHAKE U nivers PROPIONATE 0-12 LIQUID AND ity of 50 00:00: USE 1 [place] mcg/actuati 00 SPRAY IN [facility] on nasal EACH Branch spray NOSTRIL TWICE DAILY nadoloL 40 2021-07 Yes [id number] 40mg Take 1 [place] [facility] mg tablet 0-12 tablet by ity o f 00:00: mouth in [place] the Medical morning. Branch FLUTICASONE 2021-07 Yes [id number] SHAKE U nivers PROPIONATE 0-12 LIQUID AND ity of 50 00:00: USE 1 [place] mcg/actuati 00 SPRAY IN [facility] on nasal EACH Branch spray NOSTRIL TWICE DAILY nadoloL 40 2021-07 Yes [id number] 40mg Take 1 [facility] mg tablet 0-12 tablet by ity o f 00:00: mouth in [place] the Medical morning. Branch FLUTICASONE 2021-07 Yes [id number] SHAKE U nivers PROPIONATE 0-12 LIQUID AND ity of 50 00:00: USE 1 [place] mcg/actuati 00 SPRAY IN [facility] on nasal EACH Branch spray NOSTRIL TWICE DAILY nadoloL 40 2021-07 Yes [id number] 40mg Take 1 [place] [facility] mg tablet 0-12 tablet by ity o f 00:00: mouth in [place] the Medical morning. Branch FLUTICASONE 2021-07 Yes [id number] SHAKE U nivers PROPIONATE 0-12 LIQUID AND ity of 50 00:00: USE 1 [place] mcg/actuati 00 SPRAY IN [facility] on nasal EACH Branch spray NOSTRIL TWICE DAILY nadoloL 40 2021-07 Yes [id number] 40mg Take 1 [facility] mg tablet 0-12 tablet by ity o f 00:00: mouth in [place] the Medical morning. Branch FLUTICASONE 2021-07 Yes [id number] SHAKE U nivers PROPIONATE 0-12 LIQUID AND ity of 50 00:00: USE 1 [place] mcg/actuati 00 SPRAY IN [facility] on nasal EACH Branch spray NOSTRIL TWICE DAILY nadoloL 40 2021-07 Yes [id number] 40mg Take 1 [facility] mg tablet 0-12 tablet by ity o f 00:00: mouth in [place] the Medical morning. Branch FLUTICASONE 2021-07 Yes [id number] SHAKE U nivers PROPIONATE 0-12 LIQUID AND ity of 50 00:00: USE 1 [place] mcg/actuati 00 SPRAY IN [facility] on nasal EACH Branch spray NOSTRIL TWICE DAILY nadoloL 40 2021-07 Yes [id number] 40mg Take 1 [facility] mg tablet 0-12 tablet by ity o f 00:00: mouth in [place] the Medical morning. Branch FLUTICASONE 2021-07 Yes [id number] SHAKE U nivers PROPIONATE 0-12 LIQUID AND ity of 50 00:00: USE 1 [place] mcg/actuati 00 SPRAY IN [facility] on nasal EACH Branch spray NOSTRIL TWICE DAILY nadoloL 40 2021-07 Yes [id number] 40mg Take 1 [facility] mg tablet 0-12 tablet by ity o f 00:00: mouth in [place] the Medical morning. Branch FLUTICASONE 2021-07 Yes [id number] SHAKE U nivers PROPIONATE 0-12 LIQUID AND ity of 50 00:00: USE 1 [place] mcg/actuati 00 SPRAY IN [facility]i jan[facility] on nasal EACH Branch spray NOSTRIL TWICE DAILY nadoloL 40 2021-07 Yes [id number] 40mg Take 1 [facility] mg tablet 0-12 tablet by ity o f 00:00: mouth in [place] the Medical morning. Branch FLUTICASONE 2021-07 Yes [id number] SHAKE U nivers PROPIONATE 0-12 LIQUID AND ity of 50 00:00: USE 1 [place] mcg/actuati 00 SPRAY IN [facility]i jan[facility] on nasal EACH Branch spray NOSTRIL TWICE DAILY nadoloL 40 2021-07 Yes [id number] 40mg Take 1 [facility] mg tablet 0-12 tablet by ity o f 00:00: mouth in [place] the Medical morning. Branch FLUTICASONE 2021-07 Yes [id number] SHAKE U nivers PROPIONATE 0-12 LIQUID AND ity of 50 00:00: USE 1 [place] mcg/actuati 00 SPRAY IN [facility] janet on nasal EACH Branch spray NOSTRIL TWICE DAILY nadoloL 40 2021-07 Yes [id number] 40mg Take 1 [facility] mg tablet 0-12 tablet by ity o f 00:00: mouth in [place] the Medical morning. Branch FLUTICASONE 2021-07 Yes [id number] SHAKE U nivers PROPIONATE 0-12 LIQUID AND ity of 50 00:00: USE 1 [place] mcg/actuati 00 SPRAY IN [facility]i jan[facility] on nasal EACH Branch spray NOSTRIL TWICE DAILY nadoloL 40 2021-07 Yes [id number] 40mg Take 1 [facility] mg tablet 0-12 tablet by ity o f 00:00: mouth in [place] the Medical morning. Branch FLUTICASONE 2021-07 Yes [id number] SHAKE U nivers PROPIONATE 0-12 LIQUID AND ity of 50 00:00: USE 1 [place] mcg/actuati 00 SPRAY IN [facility]i jan[facility] on nasal EACH Branch spray NOSTRIL TWICE DAILY nadoloL 40 2021-07 Yes [id number] 40mg Take 1 [facility] mg tablet 0-12 tablet by ity o f 00:00: mouth in [place] 00 the Medical morning. Branch FLUTICASONE 2021-07 Yes [id number] SHAKE U nivers PROPIONATE 0-12 LIQUID AND ity of 50 00:00: USE 1 [place] mcg/actuati 00 SPRAY IN [facility] on nasal EACH Branch spray NOSTRIL TWICE DAILY nadoloL 40 2021-07 Yes [id number] 40mg Take 1 [facility] mg tablet 0-12 tablet by ity o f 00:00: mouth in [place] the Medical morning. Branch FLUTICASONE 2021-07 Yes [id number] SHAKE U nivers PROPIONATE 0-12 LIQUID AND ity of 50 00:00: USE 1 [place] mcg/actuati 00 SPRAY IN [facility] janet on nasal EACH Branch spray NOSTRIL TWICE DAILY nadoloL 40 2021-07 Yes [id number] 40mg Take 1 [facility] mg tablet 0-12 tablet by ity o f 00:00: mouth in [place] the Medical morning. Branch FLUTICASONE 2021-07 Yes [id number] SHAKE U nivers PROPIONATE 0-12 LIQUID AND ity of 50 00:00: USE 1 [place] mcg/actuati 00 SPRAY IN [facility] on nasal EACH Branch spray NOSTRIL TWICE DAILY nadoloL 40 2021-07 Yes [id number] 40mg Take 1 [facility] mg tablet 0-12 tablet by ity o f 00:00: mouth in [place] the Medical morning. Branch FLUTICASONE 2021-07 Yes [id number] SHAKE U nivers PROPIONATE 0-12 LIQUID AND ity of 50 00:00: USE 1 [place] mcg/actuati 00 SPRAY IN [facility] on nasal EACH Branch spray NOSTRIL TWICE DAILY nadoloL 40 2021-07 Yes [id number] 40mg Take 1 [facility] mg tablet 0-12 tablet by ity o f 00:00: mouth in [place] the [facility] morning. Branch FLUTICASONE 2021-07 Yes [id number] SHAKE U nivers PROPIONATE 0-12 LIQUID AND ity of 50 00:00: USE 1 [place] mcg/actuati 00 SPRAY IN [facility] on nasal EACH Branch spray NOSTRIL TWICE DAILY nadoloL 40 2021-07 Yes [id number] 40mg Take 1 [facility] mg tablet 0-12 tablet by ity o f 00:00: mouth in [place] 00 the Medical morning. Branch FLUTICASONE 2021-07 Yes [id number] SHAKE U nivers PROPIONATE 0-12 LIQUID AND ity of 50 00:00: USE 1 [place] mcg/actuati 00 SPRAY IN [facility] on nasal EACH Branch spray NOSTRIL TWICE DAILY nadoloL 40 2021-07 Yes [id number] 40mg Take 1 [facility] mg tablet 0-12 tablet by ity o f 00:00: mouth in [place] 00 the Medical morning. Branch FLUTICASONE 2021-07 Yes [id number] SHAKE U nivers PROPIONATE 0-12 LIQUID AND ity of 50 00:00: USE 1 [place] mcg/actuati 00 SPRAY IN [facility] on nasal EACH Branch spray NOSTRIL TWICE DAILY nadoloL 40 2021-07 Yes [id number] 40mg Take 1 [facility] mg tablet 0-12 tablet by ity o f 00:00: mouth in [place] the Medical morning. Branch FLUTICASONE 2021-07 Yes [id number] SHAKE U nivers PROPIONATE 0-12 LIQUID AND ity of 50 00:00: USE 1 [place] mcg/actuati 00 SPRAY IN [facility] on nasal EACH Branch spray NOSTRIL TWICE DAILY nadoloL 40 2021-07 Yes [id number] 40mg Take 1 [facility] mg tablet 0-12 tablet by ity o f 00:00: mouth in [place] the Medical morning. Branch FLUTICASONE 2021-07 Yes [id number] SHAKE U nivers PROPIONATE 0-12 LIQUID AND ity of 50 00:00: USE 1 [place] mcg/actuati 00 SPRAY IN [facility] on nasal EACH Branch spray NOSTRIL TWICE DAILY nadoloL 40 2021-07 Yes [id number] 40mg Take 1 [facility] mg tablet 0-12 tablet by ity o f 00:00: mouth in [place] the Medical morning. Branch FLUTICASONE 2021-07 Yes [id number] SHAKE U nivers PROPIONATE 0-12 LIQUID AND ity of 50 00:00: USE 1 [place] mcg/actuati 00 SPRAY IN [facility] on nasal EACH Branch spray NOSTRIL TWICE DAILY nadoloL 40 2021-07 Yes [id number] 40mg Take 1 [facility] mg tablet 0-12 tablet by ity o f 00:00: mouth in [place] 00 the Medical morning. Branch FLUTICASONE 2021-07 Yes [id number] SHAKE U nivers PROPIONATE 0-12 LIQUID AND ity of 50 00:00: USE 1 [place] mcg/actuati 00 SPRAY IN [facility] on nasal EACH Branch spray NOSTRIL TWICE DAILY nadoloL 40 2021-07 Yes [id number] 40mg Take 1 [facility] mg tablet 0-12 tablet by ity o f 00:00: mouth in [place] the Medical morning. Branch FLUTICASONE 2021-07 Yes [id number] SHAKE U nivers PROPIONATE 0-12 LIQUID AND ity of 50 00:00: USE 1 [place] mcg/actuati 00 SPRAY IN [facility] on nasal EACH Branch spray NOSTRIL TWICE DAILY nadoloL 40 2021-07 Yes [id number] 40mg Take 1 [facility] mg tablet 0-12 tablet by ity o f 00:00: mouth in [place] the Medical morning. Branch FLUTICASONE 2021-07 Yes [id number] SHAKE U nivers PROPIONATE 0-12 LIQUID AND ity of 50 00:00: USE 1 [place] mcg/actuati 00 SPRAY IN [facility] on nasal EACH Branch spray NOSTRIL TWICE DAILY nadoloL 40 2021-07 Yes [id number] 40mg Take 1 [facility] mg tablet 0-12 tablet by ity o f 00:00: mouth in [place] the Medical morning. Branch FLUTICASONE 2021-07 Yes [id number] SHAKE U nivers PROPIONATE 0-12 LIQUID AND ity of 50 00:00: USE 1 [place] mcg/actuati 00 SPRAY IN [facility] on nasal EACH Branch spray NOSTRIL TWICE DAILY nadoloL 40 2021-07 Yes [id number] 40mg Take 1 [facility] mg tablet 0-12 tablet by ity o f 00:00: mouth in [place] the Medical morning. Branch FLUTICASONE 2021-07 Yes [id number] SHAKE U nivers PROPIONATE 0-12 LIQUID AND ity of 50 00:00: USE 1 [place] mcg/actuati 00 SPRAY IN [facility] on nasal EACH Branch spray NOSTRIL TWICE DAILY nadoloL 40 2021-07 Yes [id number] 40mg Take 1 [facility] mg tablet 0-12 tablet by ity o f 00:00: mouth in [place] the Medical morning. Branch FLUTICASONE 2021-07 Yes [id number] SHAKE U nivers PROPIONATE 0-12 LIQUID AND ity of 50 00:00: USE 1 [place] mcg/actuati 00 SPRAY IN [facility] on nasal EACH Branch spray NOSTRIL TWICE DAILY nadoloL 40 2021-07 Yes [id number] 40mg Take 1 [facility] mg tablet 0-12 tablet by ity o f 00:00: mouth in [place] the Medical morning. Branch FLUTICASONE 2021-07 Yes [id number] SHAKE U nivers PROPIONATE 0-12 LIQUID AND ity of 50 00:00: USE 1 [place] mcg/actuati 00 SPRAY IN [facility] on nasal EACH Branch spray NOSTRIL TWICE DAILY nadoloL 40 2021-07 Yes [id number] 40mg Take 1 [facility] mg tablet 0-12 tablet by ity o f 00:00: mouth in [place] the Medical morning. Branch FLUTICASONE 2021-07 Yes [id number] SHAKE U nivers PROPIONATE 0-12 LIQUID AND ity of 50 00:00: USE 1 [place] mcg/actuati 00 SPRAY IN [facility] janet on nasal EACH Branch spray NOSTRIL TWICE DAILY nadoloL 40 2021-07 Yes [id number] 40mg Take 1 [facility] mg tablet 0-12 tablet by ity o f 00:00: mouth in [place] the Medical morning. Branch FLUTICASONE 2021-07 Yes [id number] SHAKE U nivers PROPIONATE 0-12 LIQUID AND ity of 50 00:00: USE 1 [place] mcg/actuati 00 SPRAY IN [facility] janet on nasal EACH Branch spray NOSTRIL TWICE DAILY nadoloL 40 2021-07 Yes [id number] 40mg Take 1 [facility] mg tablet 0-12 tablet by ity o f 00:00: mouth in [place] the Medical morning. Branch FLUTICASONE 2021-07 Yes [id number] SHAKE U nivers PROPIONATE 0-12 LIQUID AND ity of 50 00:00: USE 1 [place] mcg/actuati 00 SPRAY IN [facility] on nasal EACH Branch spray NOSTRIL TWICE DAILY nadoloL 40 2021-07 Yes [id number] 40mg Take 1 [facility] mg tablet 0-12 tablet by ity o f 00:00: mouth in [place] the Medical morning. Branch FLUTICASONE 2021-07 Yes [id number] SHAKE U nivers PROPIONATE 0-12 LIQUID AND ity of 50 00:00: USE 1 [place] mcg/actuati 00 SPRAY IN [facility] on nasal EACH Branch spray NOSTRIL TWICE DAILY nadoloL 40 2021-07 Yes [id number] 40mg Take 1 [facility] mg tablet 0-12 tablet by ity o f 00:00: mouth in [place] the Medical morning. Branch FLUTICASONE 2021-07 Yes [id number] SHAKE U nivers PROPIONATE 0-12 LIQUID AND ity of 50 00:00: USE 1 [place] mcg/actuati 00 SPRAY IN [facility] on nasal EACH Branch spray NOSTRIL TWICE DAILY nadoloL 40 2021-07 Yes [id number] 40mg Take 1 [facility] mg tablet 0-12 tablet by ity o f 00:00: mouth in [place] the Medical morning. Branch FLUTICASONE 2021-07 Yes [id number] SHAKE U nivers PROPIONATE 0-12 LIQUID AND ity of 50 00:00: USE 1 [place] mcg/actuati 00 SPRAY IN [facility] on nasal EACH Branch spray NOSTRIL TWICE DAILY nadoloL 40 2021-07 Yes [id number] 40mg Take 1 [facility] mg tablet 0-12 tablet by ity o f 00:00: mouth in [place] the Medical morning. Branch FLUTICASONE 2021-07 Yes [id number] SHAKE U nivers PROPIONATE 0-12 LIQUID AND ity of 50 00:00: USE 1 [place] mcg/actuati 00 SPRAY IN [facility] janet on nasal EACH Branch spray NOSTRIL TWICE DAILY nadoloL 40 2021-07 Yes [id number] 40mg Take 1 [facility] mg tablet 0-12 tablet by ity o f 00:00: mouth in [place] the Medical morning. Branch FLUTICASONE 2021-07 Yes [id number] SHAKE U nivers PROPIONATE 0-12 LIQUID AND ity of 50 00:00: USE 1 [place] mcg/actuati 00 SPRAY IN [facility] on nasal EACH Branch spray NOSTRIL TWICE DAILY nadoloL 40 2021-07 Yes [id number] 40mg Take 1 [facility] mg tablet 0-12 tablet by ity o f 00:00: mouth in [place] the Medical morning. Branch FLUTICASONE 2021-07 Yes [id number] SHAKE U nivers PROPIONATE 0-12 LIQUID AND ity of 50 00:00: USE 1 [place] mcg/actuati 00 SPRAY IN [facility] on nasal EACH Branch spray NOSTRIL TWICE DAILY nadoloL 40 2021-07 Yes [id number] 40mg Take 1 [facility] mg tablet 0-12 tablet by ity o f 00:00: mouth in [place] 00 the Medical morning. Branch FLUTICASONE 2021-07 Yes [id number] SHAKE U nivers PROPIONATE 0-12 LIQUID AND ity of 50 00:00: USE 1 [place] mcg/actuati 00 SPRAY IN [facility] janet on nasal EACH Branch spray NOSTRIL TWICE DAILY nadoloL 40 2021-07 Yes [id number] 40mg Take 1 [facility] mg tablet 0-12 tablet by ity o f 00:00: mouth in [place] 00 the Medical morning. Branch FLUTICASONE 2021-07 Yes [id number] SHAKE U nivers PROPIONATE 0-12 LIQUID AND ity of 50 00:00: USE 1 [place] mcg/actuati 00 SPRAY IN [facility] on nasal EACH Branch spray NOSTRIL TWICE DAILY nadoloL 40 2021-07 Yes [id number] 40mg Take 1 [facility] mg tablet 0-12 tablet by ity o f 00:00: mouth in [place] the Medical morning. Branch FLUTICASONE 2021-07 Yes [id number] SHAKE U nivers PROPIONATE 0-12 LIQUID AND ity of 50 00:00: USE 1 [place] mcg/actuati 00 SPRAY IN [facility] janet on nasal EACH Branch spray NOSTRIL TWICE DAILY nadoloL 40 2021-07 Yes [id number] 40mg Take 1 [facility] mg tablet 0-12 tablet by ity o f 00:00: mouth in [place] the Medical morning. Branch FLUTICASONE 2021-07 Yes [id number] SHAKE U nivers PROPIONATE 0-12 LIQUID AND ity of 50 00:00: USE 1 [place] mcg/actuati 00 SPRAY IN [facility] janet on nasal EACH Branch spray NOSTRIL TWICE DAILY nadoloL 40 2021-07 Yes [id number] 40mg Take 1 [facility] mg tablet 0-12 tablet by ity o f 00:00: mouth in [place] the Medical morning. Branch FLUTICASONE 2021-07 Yes [id number] SHAKE U nivers PROPIONATE 0-12 LIQUID AND ity of 50 00:00: USE 1 [place] mcg/actuati 00 SPRAY IN [facility] janet on nasal EACH Branch spray NOSTRIL TWICE DAILY nadoloL 40 2021-07 Yes [id number] 40mg Take 1 [facility] mg tablet 0-12 tablet by ity o f 00:00: mouth in [place] 00 the Medical morning. Branch FLUTICASONE 2021-07 Yes [id number] SHAKE U nivers PROPIONATE 0-12 LIQUID AND ity of 50 00:00: USE 1 [place] mcg/actuati 00 SPRAY IN [facility] on nasal EACH Branch spray NOSTRIL TWICE DAILY nadoloL 40 2021-07 Yes [id number] 40mg Take 1 [facility] mg tablet 0-12 tablet by ity o f 00:00: mouth in [place] 00 the Medical morning. Branch FLUTICASONE 2021-07 Yes [id number] SHAKE U nivers PROPIONATE 0-12 LIQUID AND ity of 50 00:00: USE 1 [place] mcg/actuati 00 SPRAY IN [facility] on nasal EACH Branch spray NOSTRIL TWICE DAILY nadoloL 40 2021-07 Yes [id number] 40mg Take 1 [facility] mg tablet 0-12 tablet by ity o f 00:00: mouth in [place] the Medical morning. Branch FLUTICASONE 2021-07 Yes [id number] SHAKE U nivers PROPIONATE 0-12 LIQUID AND ity of 50 00:00: USE 1 [place] mcg/actuati 00 SPRAY IN [facility] on nasal EACH Branch spray NOSTRIL TWICE DAILY nadoloL 40 2021-07 Yes [id number] 40mg Take 1 [facility] mg tablet 0-12 tablet by ity o f 00:00: mouth in [place] the Medical morning. Branch FLUTICASONE 2021-07 Yes [id number] SHAKE U nivers PROPIONATE 0-12 LIQUID AND ity of 50 00:00: USE 1 [place] mcg/actuati 00 SPRAY IN [facility] on nasal EACH Branch spray NOSTRIL TWICE DAILY nadoloL 40 2021-07 Yes [id number] 40mg Take 1 [facility] mg tablet 0-12 tablet by ity o f 00:00: mouth in [place] the Medical morning. Branch FLUTICASONE 2021-07 Yes [id number] SHAKE U nivers PROPIONATE 0-12 LIQUID AND ity of 50 00:00: USE 1 [place] mcg/actuati 00 SPRAY IN [facility] on nasal EACH Branch spray NOSTRIL TWICE DAILY nadoloL 40 2021-07 Yes [id number] 40mg Take 1 [facility] mg tablet 0-12 tablet by ity o f 00:00: mouth in [place] 00 the Medical morning. Branch FLUTICASONE 2021-07 Yes [id number] SHAKE U nivers PROPIONATE 0-12 LIQUID AND ity of 50 00:00: USE 1 [place] mcg/actuati 00 SPRAY IN [facility] on nasal EACH Branch spray NOSTRIL TWICE DAILY nadoloL 40 2021-07 Yes [id number] 40mg Take 1 [facility] mg tablet 0-12 tablet by ity o f 00:00: mouth in [place] the Medical morning. Branch FLUTICASONE 2021-07 Yes [id number] SHAKE U nivers PROPIONATE 0-12 LIQUID AND ity of 50 00:00: USE 1 [place] mcg/actuati 00 SPRAY IN [facility] on nasal EACH Branch spray NOSTRIL TWICE DAILY nadoloL 40 2021-07 Yes [id number] 40mg Take 1 [facility] mg tablet 0-12 tablet by ity o f 00:00: mouth in [place] the Medical morning. Branch FLUTICASONE 2021-07 Yes [id number] SHAKE U nivers PROPIONATE 0-12 LIQUID AND ity of 50 00:00: USE 1 [place] mcg/actuati 00 SPRAY IN [facility] on nasal EACH Branch spray NOSTRIL TWICE DAILY nadoloL 40 2021-07 Yes [id number] 40mg Take 1 [facility] mg tablet 0-12 tablet by ity o f 00:00: mouth in [place] the Medical morning. Branch FLUTICASONE 2021-07 Yes [id number] SHAKE U nivers PROPIONATE 0-12 LIQUID AND ity of 50 00:00: USE 1 [place] mcg/actuati 00 SPRAY IN [facility] on nasal EACH Branch spray NOSTRIL TWICE DAILY nadoloL 40 2021-07 Yes [id number] 40mg Take 1 [facility] mg tablet 0-12 tablet by ity o f 00:00: mouth in [place] the Medical morning. Branch FLUTICASONE 2021-07 Yes [id number] SHAKE U nivers PROPIONATE 0-12 LIQUID AND ity of 50 00:00: USE 1 [place] mcg/actuati 00 SPRAY IN [facility] on nasal EACH Branch spray NOSTRIL TWICE DAILY nadoloL 40 2021-07 Yes [id number] 40mg Take 1 [facility] mg tablet 0-12 tablet by ity o f 00:00: mouth in [place] the Medical morning. Branch FLUTICASONE 2021-07 Yes [id number] SHAKE U nivers PROPIONATE 0-12 LIQUID AND ity of 50 00:00: USE 1 [place] mcg/actuati 00 SPRAY IN [facility] on nasal EACH Branch spray NOSTRIL TWICE DAILY nadoloL 40 2021-07 Yes [id number] 40mg Take 1 [facility] mg tablet 0-12 tablet by ity o f 00:00: mouth in [place] the Medical morning. Branch FLUTICASONE 2021-07 Yes [id number] SHAKE U nivers PROPIONATE 0-12 LIQUID AND ity of 50 00:00: USE 1 [place] mcg/actuati 00 SPRAY IN [facility] on nasal EACH Branch spray NOSTRIL TWICE DAILY nadoloL 40 2021-07 Yes [id number] 40mg Take 1 [facility] mg tablet 0-12 tablet by ity o f 00:00: mouth in [place] the Medical morning. Branch FLUTICASONE 2021-07 Yes [id number] SHAKE U nivers PROPIONATE 0-12 LIQUID AND ity of 50 00:00: USE 1 [place] mcg/actuati 00 SPRAY IN [facility] on nasal EACH Branch spray NOSTRIL TWICE DAILY nadoloL 40 2021-07 Yes [id number] 40mg Take 1 [facility] mg tablet 0-12 tablet by ity o f 00:00: mouth in [place] the Medical morning. Branch FLUTICASONE 2021-07 Yes [id number] SHAKE U nivers PROPIONATE 0-12 LIQUID AND ity of 50 00:00: USE 1 [place] mcg/actuati 00 SPRAY IN [facility] on nasal EACH Branch spray NOSTRIL TWICE DAILY nadoloL 40 2021-07 Yes [id number] 40mg Take 1 [facility] mg tablet 0-12 tablet by ity o f 00:00: mouth in [place] the Medical morning. Branch FLUTICASONE 2021-07 Yes [id number] SHAKE U nivers PROPIONATE 0-12 LIQUID AND ity of 50 00:00: USE 1 [place] mcg/actuati 00 SPRAY IN [facility] janet on nasal EACH Branch spray NOSTRIL TWICE DAILY nadoloL 40 2021-07 Yes [id number] 40mg Take 1 [facility] mg tablet 0-12 tablet by ity o f 00:00: mouth in [place] the Medical morning. Branch FLUTICASONE 2021-07 Yes [id number] SHAKE U nivers PROPIONATE 0-12 LIQUID AND ity of 50 00:00: USE 1 [place] mcg/actuati 00 SPRAY IN [facility] on nasal EACH Branch spray NOSTRIL TWICE DAILY nadoloL 40 2021-07 Yes [id number] 40mg Take 1 [facility] mg tablet 0-12 tablet by ity o f 00:00: mouth in [place] the Medical morning. Branch FLUTICASONE 2021-07 Yes [id number] SHAKE U nivers PROPIONATE 0-12 LIQUID AND ity of 50 00:00: USE 1 [place] mcg/actuati 00 SPRAY IN [facility] on nasal EACH Branch spray NOSTRIL TWICE DAILY nadoloL 40 2021-07 Yes [id number] 40mg Take 1 [facility] mg tablet 0-12 tablet by ity o f 00:00: mouth in [place] the Medical morning. Branch FLUTICASONE 2021-07 Yes [id number] SHAKE U nivers PROPIONATE 0-12 LIQUID AND ity of 50 00:00: USE 1 [place] mcg/actuati 00 SPRAY IN [facility] on nasal EACH Branch spray NOSTRIL TWICE DAILY nadoloL 40 2021-07 Yes [id number] 40mg Take 1 [facility] mg tablet 0-12 tablet by ity o f 00:00: mouth in [place] the Medical morning. Branch FLUTICASONE 2021-07 Yes [id number] SHAKE U nivers PROPIONATE 0-12 LIQUID AND ity of 50 00:00: USE 1 [place] mcg/actuati 00 SPRAY IN [facility] on nasal EACH Branch spray NOSTRIL TWICE DAILY nadoloL 40 2021-07 Yes [id number] 40mg Take 1 [facility] mg tablet 0-12 tablet by ity o f 00:00: mouth in [place] the Medical morning. Branch FLUTICASONE 2021-07 Yes [id number] SHAKE U nivers PROPIONATE 0-12 LIQUID AND ity of 50 00:00: USE 1 [place] mcg/actuati 00 SPRAY IN [facility] on nasal EACH Branch spray NOSTRIL TWICE DAILY nadoloL 40 2021-07 Yes [id number] 40mg Take 1 [facility] mg tablet 0-12 tablet by ity o f 00:00: mouth in [place] the Medical morning. Branch FLUTICASONE 2021-07 Yes [id number] SHAKE U nivers PROPIONATE 0-12 LIQUID AND ity of 50 00:00: USE 1 [place] mcg/actuati 00 SPRAY IN [facility] on nasal EACH Branch spray NOSTRIL TWICE DAILY nadoloL 40 2021-07 Yes [id number] 40mg Take 1 [facility] mg tablet 0-12 tablet by ity o f 00:00: mouth in [place] 00 the Medical morning. Branch FLUTICASONE 2021-07 Yes [id number] SHAKE U nivers PROPIONATE 0-12 LIQUID AND ity of 50 00:00: USE 1 [place] mcg/actuati 00 SPRAY IN [facility] on nasal EACH Branch spray NOSTRIL TWICE DAILY nadoloL 40 2021-07 Yes [id number] 40mg Take 1 [facility] mg tablet 0-12 tablet by ity o f 00:00: mouth in [place] 00 the Medical morning. Branch FLUTICASONE 2021-07 Yes [id number] SHAKE U nivers PROPIONATE 0-12 LIQUID AND ity of 50 00:00: USE 1 [place] mcg/actuati 00 SPRAY IN [facility] on nasal EACH Branch spray NOSTRIL TWICE DAILY nadoloL 40 2021-07 Yes [id number] 40mg Take 1 [facility] mg tablet 0-12 tablet by ity o f 00:00: mouth in [place] the Medical morning. Branch FLUTICASONE 2021-07 Yes [id number] SHAKE U nivers PROPIONATE 0-12 LIQUID AND ity of 50 00:00: USE 1 [place] mcg/actuati 00 SPRAY IN [facility] on nasal EACH Branch spray NOSTRIL TWICE DAILY nadoloL 40 2021-07 Yes [id number] 40mg Take 1 [facility] mg tablet 0-12 tablet by ity o f 00:00: mouth in [place] the Medical morning. Branch FLUTICASONE 2021-07 Yes [id number] SHAKE U nivers PROPIONATE 0-12 LIQUID AND ity of 50 00:00: USE 1 [place] mcg/actuati 00 SPRAY IN [facility] janet on nasal EACH Branch spray NOSTRIL TWICE DAILY nadoloL 40 2021-07 Yes [id number] 40mg Take 1 [facility] mg tablet 0-12 tablet by ity o f 00:00: mouth in [place] the Medical morning. Branch FLUTICASONE 2021-07 Yes [id number] SHAKE U nivers PROPIONATE 0-12 LIQUID AND ity of 50 00:00: USE 1 [place] mcg/actuati 00 SPRAY IN [facility] janet on nasal EACH Branch spray NOSTRIL TWICE DAILY nadoloL 40 2021-07 Yes [id number] 40mg Take 1 [facility] mg tablet 0-12 tablet by ity o f 00:00: mouth in [place] 00 the Medical morning. Branch FLUTICASONE 2021-07 Yes [id number] SHAKE U nivers PROPIONATE 0-12 LIQUID AND ity of 50 00:00: USE 1 [place] mcg/actuati 00 SPRAY IN [facility] on nasal EACH Branch spray NOSTRIL TWICE DAILY nadoloL 40 2021-07 Yes [id number] 40mg Take 1 [facility] mg tablet 0-12 tablet by ity o f 00:00: mouth in [place] 00 the Medical morning. Branch FLUTICASONE 2021-07 Yes [id number] SHAKE U nivers PROPIONATE 0-12 LIQUID AND ity of 50 00:00: USE 1 [place] mcg/actuati 00 SPRAY IN [facility] on nasal EACH Branch spray NOSTRIL TWICE DAILY nadoloL 40 2021-07 Yes [id number] 40mg Take 1 [facility] mg tablet 0-12 tablet by ity o f 00:00: mouth in [place] 00 the Medical morning. Branch FLUTICASONE 2021-07 Yes [id number] SHAKE U nivers PROPIONATE 0-12 LIQUID AND ity of 50 00:00: USE 1 [place] mcg/actuati 00 SPRAY IN [facility] on nasal EACH Branch spray NOSTRIL TWICE DAILY nadoloL 40 2021-07 Yes [id number] 40mg Take 1 [facility] mg tablet 0-12 tablet by ity o f 00:00: mouth in [place] the Medical morning. Branch FLUTICASONE 2021-07 Yes [id number] SHAKE U nivers PROPIONATE 0-12 LIQUID AND ity of 50 00:00: USE 1 [place] mcg/actuati 00 SPRAY IN [facility] on nasal EACH Branch spray NOSTRIL TWICE DAILY nadoloL 40 2021-07 Yes [id number] 40mg Take 1 [facility] mg tablet 0-12 tablet by ity o f 00:00: mouth in [place] the Medical morning. Branch FLUTICASONE 2021-07 Yes [id number] SHAKE U nivers PROPIONATE 0-12 LIQUID AND ity of 50 00:00: USE 1 [place] mcg/actuati 00 SPRAY IN [facility] on nasal EACH Branch spray NOSTRIL TWICE DAILY nadoloL 40 2021-07 Yes [id number] 40mg Take 1 [facility] mg tablet 0-12 tablet by ity o f 00:00: mouth in [place] 00 the Medical morning. Branch FLUTICASONE 2021-07 Yes [id number] SHAKE U nivers PROPIONATE 0-12 LIQUID AND ity of 50 00:00: USE 1 [place] mcg/actuati 00 SPRAY IN [facility] on nasal EACH Branch spray NOSTRIL TWICE DAILY nadoloL 40 2021-07 Yes [id number] 40mg Take 1 [facility] mg tablet 0-12 tablet by ity o f 00:00: mouth in [place] 00 the Medical morning. Branch FLUTICASONE 2021-07 Yes [id number] SHAKE U nivers PROPIONATE 0-12 LIQUID AND ity of 50 00:00: USE 1 [place] mcg/actuati 00 SPRAY IN [facility] on nasal EACH Branch spray NOSTRIL TWICE DAILY nadoloL 40 2021-07 Yes [id number] 40mg Take 1 [facility] mg tablet 0-12 tablet by ity o f 00:00: mouth in [place] the Medical morning. Branch FLUTICASONE 2021-07 Yes [id number] SHAKE U nivers PROPIONATE 0-12 LIQUID AND ity of 50 00:00: USE 1 [place] mcg/actuati 00 SPRAY IN [facility] on nasal EACH Branch spray NOSTRIL TWICE DAILY nadoloL 40 2021-07 Yes [id number] 40mg Take 1 [facility] mg tablet 0-12 tablet by ity o f 00:00: mouth in [place] the Medical morning. Branch FLUTICASONE 2021-07 Yes [id number] SHAKE U nivers PROPIONATE 0-12 LIQUID AND ity of 50 00:00: USE 1 [place] mcg/actuati 00 SPRAY IN [facility] on nasal EACH Branch spray NOSTRIL TWICE DAILY nadoloL 40 2021-07 Yes [id number] 40mg Take 1 [facility] mg tablet 0-12 tablet by ity o f 00:00: mouth in [place] the Medical morning. Branch FLUTICASONE 2021-07 Yes [id number] SHAKE U nivers PROPIONATE 0-12 LIQUID AND ity of 50 00:00: USE 1 [place] mcg/actuati 00 SPRAY IN [facility] on nasal EACH Branch spray NOSTRIL TWICE DAILY nadoloL 40 2021-07 Yes [id number] 40mg Take 1 [facility] mg tablet 0-12 tablet by ity o f 00:00: mouth in [place] 00 the Medical morning. Branch FLUTICASONE 2021-07 Yes [id number] SHAKE U nivers PROPIONATE 0-12 LIQUID AND ity of 50 00:00: USE 1 [place] mcg/actuati 00 SPRAY IN [facility] on nasal EACH Branch spray NOSTRIL TWICE DAILY nadoloL 40 2021-07 Yes [id number] 40mg Take 1 [facility] mg tablet 0-12 tablet by ity o f 00:00: mouth in [place] the Medical morning. Branch FLUTICASONE 2021-07 Yes [id number] SHAKE U nivers PROPIONATE 0-12 LIQUID AND ity of 50 00:00: USE 1 [place] mcg/actuati 00 SPRAY IN [facility] on nasal EACH Branch spray NOSTRIL TWICE DAILY nadoloL 40 2021-07 Yes [id number] 40mg Take 1 [facility] mg tablet 0-12 tablet by ity o f 00:00: mouth in [place] the Medical morning. Branch FLUTICASONE 2021-07 Yes [id number] SHAKE U nivers PROPIONATE 0-12 LIQUID AND ity of 50 00:00: USE 1 [place] mcg/actuati 00 SPRAY IN [facility] on nasal EACH Branch spray NOSTRIL TWICE DAILY nadoloL 40 2021-07 Yes [id number] 40mg Take 1 [facility] mg tablet 0-12 tablet by ity o f 00:00: mouth in [place] the Medical morning. Branch FLUTICASONE 2021-07 Yes [id number] SHAKE U nivers PROPIONATE 0-12 LIQUID AND ity of 50 00:00: USE 1 [place] mcg/actuati 00 SPRAY IN [facility] on nasal EACH Branch spray NOSTRIL TWICE DAILY nadoloL 40 2021-07 Yes [id number] 40mg Take 1 [facility] mg tablet 0-12 tablet by ity o f 00:00: mouth in [place] the Medical morning. Branch FLUTICASONE 2021-07 Yes [id number] SHAKE U nivers PROPIONATE 0-12 LIQUID AND ity of 50 00:00: USE 1 [place] mcg/actuati 00 SPRAY IN [facility] on nasal EACH Branch spray NOSTRIL TWICE DAILY nadoloL 40 2021-07 Yes [id number] 40mg Take 1 [facility] mg tablet 0-12 tablet by ity o f 00:00: mouth in [place] the Medical morning. Branch FLUTICASONE 2021-07 Yes [id number] SHAKE U nivers PROPIONATE 0-12 LIQUID AND ity of 50 00:00: USE 1 [place] mcg/actuati 00 SPRAY IN [facility] on nasal EACH Branch spray NOSTRIL TWICE DAILY nadoloL 40 2021-07 Yes [id number] 40mg Take 1 [facility] mg tablet 0-12 tablet by ity o f 00:00: mouth in [place] 00 the Medical morning. Branch FLUTICASONE 2021-07 Yes [id number] SHAKE U nivers PROPIONATE 0-12 LIQUID AND ity of 50 00:00: USE 1 [place] mcg/actuati 00 SPRAY IN [facility] on nasal EACH Branch spray NOSTRIL TWICE DAILY nadoloL 40 2021-07 Yes [id number] 40mg Take 1 [facility] mg tablet 0-12 tablet by ity o f 00:00: mouth in [place] the Medical morning. Branch FLUTICASONE 2021-07 Yes [id number] SHAKE U nivers PROPIONATE 0-12 LIQUID AND ity of 50 00:00: USE 1 [place] mcg/actuati 00 SPRAY IN [facility] on nasal EACH Branch spray NOSTRIL TWICE DAILY nadoloL 40 2021-07 Yes [id number] 40mg Take 1 [facility] mg tablet 0-12 tablet by ity o f 00:00: mouth in [place] the Medical morning. Branch FLUTICASONE 2021-07 Yes [id number] SHAKE U nivers PROPIONATE 0-12 LIQUID AND ity of 50 00:00: USE 1 [place] mcg/actuati 00 SPRAY IN [facility] janet on nasal EACH Branch spray NOSTRIL TWICE DAILY nadoloL 40 2021-07 Yes [id number] 40mg Take 1 [facility] mg tablet 0-12 tablet by ity o f 00:00: mouth in [place] the Medical morning. Branch FLUTICASONE 2021-07 Yes [id number] SHAKE U nivers PROPIONATE 0-12 LIQUID AND ity of 50 00:00: USE 1 [place] mcg/actuati 00 SPRAY IN [facility] on nasal EACH Branch spray NOSTRIL TWICE DAILY nadoloL 40 2021-07 Yes [id number] 40mg Take 1 [facility] mg tablet 0-12 tablet by ity o f 00:00: mouth in [place] the Medical morning. Branch FLUTICASONE 2021-07 Yes [id number] SHAKE U nivers PROPIONATE 0-12 LIQUID AND ity of 50 00:00: USE 1 [place] mcg/actuati 00 SPRAY IN Medi janet on nasal EACH Branch spray NOSTRIL TWICE DAILY nadoloL 40 2021-07 Yes [id number] 40mg Take 1 [facility] mg tablet 0-12 tablet by ity o f 00:00: mouth in [place] the Medical morning. Branch FLUTICASONE 2021-07 Yes [id number] SHAKE U nivers PROPIONATE 0-12 LIQUID AND ity of 50 00:00: USE 1 [place] mcg/actuati [address]AY [address] [facility] janet on nasal EACH Branch spray NOSTRIL TWICE DAILY nadoloL 40 2021-07 Yes [id number] 40mg Take 1 [facility] mg tablet 0-12 tablet by ity o f 00:00: mouth in [place] the Medical morning. Branch FLUTICASONE 2021-07 Yes [id number] SHAKE U nivers PROPIONATE 0-12 LIQUID AND ity of 50 00:00: USE 1 [place] mcg/actuati 00 SPRAY IN [facility] on nasal EACH Branch spray NOSTRIL TWICE DAILY nadoloL 40 2021-07 Yes [id number] 40mg Take 1 [facility] mg tablet 0-12 tablet by ity o f 00:00: mouth in [place] the Medical morning. Branch FLUTICASONE 2021-07 Yes [id number] SHAKE U nivers PROPIONATE 0-12 LIQUID AND ity of 50 00:00: USE 1 [place] mcg/actuati 00 SPRAY IN [facility] on nasal EACH Branch spray NOSTRIL TWICE DAILY nadoloL 40 2021-07 Yes [id number] 40mg Take 1 [facility] mg tablet 0-12 tablet by ity o f 00:00: mouth in [place] the Medical morning. Branch FLUTICASONE 2021-07 Yes [id number] SHAKE U nivers PROPIONATE 0-12 LIQUID AND ity of 50 00:00: USE 1 [place] mcg/actuati 00 SPRAY IN [facility] on nasal EACH Branch spray NOSTRIL TWICE DAILY nadoloL 40 2021-07 Yes [id number] 40mg Take 1 [facility] mg tablet 0-12 tablet by ity o f 00:00: mouth in [place] the Medical morning. Branch FLUTICASONE 2021-07 Yes [id number] SHAKE U nivers PROPIONATE 0-12 LIQUID AND ity of 50 00:00: USE 1 [place] mcg/actuati 00 SPRAY IN [facility] on nasal EACH Branch spray NOSTRIL TWICE DAILY nadoloL 40 2021-07 Yes [id number] 40mg Take 1 [facility] mg tablet 0-12 tablet by ity o f 00:00: mouth in [place] the Medical morning. Branch FLUTICASONE 2021-07 Yes [id number] SHAKE U nivers PROPIONATE 0-12 LIQUID AND ity of 50 00:00: USE 1 [place] mcg/actuati 00 SPRAY IN [facility] on nasal EACH Branch spray NOSTRIL TWICE DAILY nadoloL 40 2021-07 Yes [id number] 40mg Take 1 [facility] mg tablet 0-12 tablet by ity o f 00:00: mouth in [place] the Medical morning. Branch FLUTICASONE 2021-07 Yes [id number] SHAKE U nivers PROPIONATE 0-12 LIQUID AND ity of 50 00:00: USE 1 [place] mcg/actuati 00 SPRAY IN [facility] on nasal EACH Branch spray NOSTRIL TWICE DAILY nadoloL 40 2021-07 Yes [id number] 40mg Take 1 [facility] mg tablet 0-12 tablet by ity o f 00:00: mouth in [place] the Medical morning. Branch FLUTICASONE 2021-07 Yes [id number] SHAKE U nivers PROPIONATE 0-12 LIQUID AND ity of 50 00:00: USE 1 [place] mcg/actuati 00 SPRAY IN [facility] on nasal EACH Branch spray NOSTRIL TWICE DAILY nadoloL 40 2021-07 Yes [id number] 40mg Take 1 [facility] mg tablet 0-12 tablet by ity o f 00:00: mouth in [place] the Medical morning. Branch FLUTICASONE 2021-07 Yes [id number] SHAKE U nivers PROPIONATE 0-12 LIQUID AND ity of 50 00:00: USE 1 [place] mcg/actuati 00 SPRAY IN [facility] on nasal EACH Branch spray NOSTRIL TWICE DAILY nadoloL 40 2021-07 Yes [id number] 40mg Take 1 [facility] mg tablet 0-12 tablet by ity o f 00:00: mouth in [place] the Medical morning. Branch FLUTICASONE 2021-07 Yes [id number] SHAKE U nivers PROPIONATE 0-12 LIQUID AND ity of 50 00:00: USE 1 [place] mcg/actuati 00 SPRAY IN [facility] on nasal EACH Branch spray NOSTRIL TWICE DAILY nadoloL 40 2021-07 Yes [id number] 40mg Take 1 [facility] mg tablet 0-12 tablet by ity o f 00:00: mouth in [place] 00 the Medical morning. Branch FLUTICASONE 2021-07 Yes [id number] SHAKE U nivers PROPIONATE 0-12 LIQUID AND ity of 50 00:00: USE 1 [place] mcg/actuati 00 SPRAY IN [facility] on nasal EACH Branch spray NOSTRIL TWICE DAILY nadoloL 40 2021-07 Yes [id number] 40mg Take 1 [facility] mg tablet 0-12 tablet by ity o f 00:00: mouth in [place] the Medical morning. Branch FLUTICASONE 2021-07 Yes [id number] SHAKE U nivers PROPIONATE 0-12 LIQUID AND ity of 50 00:00: USE 1 [place] mcg/actuati 00 SPRAY IN [facility] on nasal EACH Branch spray NOSTRIL TWICE DAILY nadoloL 40 2021-07 Yes [id number] 40mg Take 1 [facility] mg tablet 0-12 tablet by ity o f 00:00: mouth in [place] the Medical morning. Branch FLUTICASONE 2021-07 Yes [id number] SHAKE U nivers PROPIONATE 0-12 LIQUID AND ity of 50 00:00: USE 1 [place] mcg/actuati 00 SPRAY IN [facility] on nasal EACH Branch spray NOSTRIL TWICE DAILY nadoloL 40 2021-07 Yes [id number] 40mg Take 1 [facility] mg tablet 0-12 tablet by ity o f 00:00: mouth in [place] the Medical morning. Branch FLUTICASONE 2021-07 Yes [id number] SHAKE U nivers PROPIONATE 0-12 LIQUID AND ity of 50 00:00: USE 1 [place] mcg/actuati 00 SPRAY IN [facility] on nasal EACH Branch spray NOSTRIL TWICE DAILY nadoloL 40 2021-07 Yes [id number] 40mg Take 1 [facility] mg tablet 0-12 tablet by ity o f 00:00: mouth in [place] the Medical morning. Branch FLUTICASONE 2021-07 Yes [id number] SHAKE U nivers PROPIONATE 0-12 LIQUID AND ity of 50 00:00: USE 1 [place] mcg/actuati 00 SPRAY IN [facility] on nasal EACH Branch spray NOSTRIL TWICE DAILY nadoloL 40 2021-07 Yes [id number] 40mg Take 1 [facility] mg tablet 0-12 tablet by ity o f 00:00: mouth in [place] 00 the Medical morning. Branch FLUTICASONE 2021-07 Yes [id number] SHAKE U nivers PROPIONATE 0-12 LIQUID AND ity of 50 00:00: USE 1 [place] mcg/actuati 00 SPRAY IN [facility] on nasal EACH Branch spray NOSTRIL TWICE DAILY nadoloL 40 2021-07 Yes [id number] 40mg Take 1 [facility] mg tablet 0-12 tablet by ity o f 00:00: mouth in [place] 00 the Medical morning. Branch FLUTICASONE 2021-07 Yes [id number] SHAKE U nivers PROPIONATE 0-12 LIQUID AND ity of 50 00:00: USE 1 [place] mcg/actuati 00 SPRAY IN [facility] on nasal EACH Branch spray NOSTRIL TWICE DAILY nadoloL 40 2021-07 Yes [id number] 40mg Take 1 [facility] mg tablet 0-12 tablet by ity o f 00:00: mouth in [place] the Medical morning. Branch FLUTICASONE 2021-07 Yes [id number] SHAKE U nivers PROPIONATE 0-12 LIQUID AND ity of 50 00:00: USE 1 [place] mcg/actuati 00 SPRAY IN [facility] on nasal EACH Branch spray NOSTRIL TWICE DAILY nadoloL 40 2021-07 Yes [id number] 40mg Take 1 [facility] mg tablet 0-12 tablet by ity o f 00:00: mouth in [place] the Medical morning. Branch FLUTICASONE 2021-07 Yes [id number] SHAKE U nivers PROPIONATE 0-12 LIQUID AND ity of 50 00:00: USE 1 [place] mcg/actuati 00 SPRAY IN [facility] on nasal EACH Branch spray NOSTRIL TWICE DAILY nadoloL 40 2021-07 Yes [id number] 40mg Take 1 [facility] mg tablet 0-12 tablet by ity o f 00:00: mouth in [place] the Medical morning. Branch FLUTICASONE 2021-07 Yes [id number] SHAKE U nivers PROPIONATE 0-12 LIQUID AND ity of 50 00:00: USE 1 [place] mcg/actuati 00 SPRAY IN [facility] janet on nasal EACH Branch spray NOSTRIL TWICE DAILY nadoloL 40 2021-07 Yes [id number] 40mg Take 1 [facility] mg tablet 0-12 tablet by ity o f 00:00: mouth in [place] the Medical morning. Branch FLUTICASONE 2021-07 Yes [id number] SHAKE U nivers PROPIONATE 0-12 LIQUID AND ity of 50 00:00: USE 1 [place] mcg/actuati 00 SPRAY IN [facility] on nasal EACH Branch spray NOSTRIL TWICE DAILY nadoloL 40 2021-07 Yes [id number] 40mg Take 1 [facility] mg tablet 0-12 tablet by ity o f 00:00: mouth in [place] the Medical morning. Branch FLUTICASONE 2021-07 Yes [id number] SHAKE U nivers PROPIONATE 0-12 LIQUID AND ity of 50 00:00: USE 1 [place] mcg/actuati 00 SPRAY IN Medi janet on nasal EACH Branch spray NOSTRIL TWICE DAILY nadoloL 40 2021-07 Yes [id number] 40mg Take 1 [facility] mg tablet 0-12 tablet by ity o f 00:00: mouth in [place] the Medical morning. Branch FLUTICASONE 2021-07 Yes [id number] SHAKE U nivers PROPIONATE 0-12 LIQUID AND ity of 50 00:00: USE 1 [place] mcg/actuati 00 SPRAY IN Medi janet on nasal EACH Branch spray NOSTRIL TWICE DAILY nadoloL 40 2021-07 Yes [id number] 40mg Take 1 [facility] mg tablet 0-12 tablet by ity o f 00:00: mouth in [place] the Medical morning. Branch FLUTICASONE 2021-07 Yes [id number] SHAKE U nivers PROPIONATE 0-12 LIQUID AND ity of 50 00:00: USE 1 [place] mcg/actuati 00 SPRAY IN Medi janet on nasal EACH Branch spray NOSTRIL TWICE DAILY nadoloL 40 2021-07 Yes [id number] 40mg Take 1 [facility] mg tablet 0-12 tablet by ity o f 00:00: mouth in [place] the Medical morning. Branch FLUTICASONE 2021-07 Yes [id number] SHAKE U nivers PROPIONATE 0-12 LIQUID AND ity of 50 00:00: USE 1 [place] mcg/actuati 00 SPRAY IN Medi janet on nasal EACH Branch spray NOSTRIL TWICE DAILY nadoloL 40 2021-07 Yes [id number] 40mg Take 1 [facility] mg tablet 0-12 tablet by ity o f 00:00: mouth in [place] the Medical morning. Branch FLUTICASONE 2021-07 Yes [id number] SHAKE U nivers PROPIONATE 0-12 LIQUID AND ity of 50 00:00: USE 1 [place] mcg/actuati 00 SPRAY IN Medi janet on nasal EACH Branch spray NOSTRIL TWICE DAILY nadoloL 40 2021-07 Yes [id number] 40mg Take 1 [facility] mg tablet 0-12 tablet by ity o f 00:00: mouth in [place] the Medical morning. Branch heparin 2021- No [id number] 500U 500 Units, [facility] lock flush 04-07 IV Push, ity of (HEPARIN 18:00: 17:10 ONCE, 1 [place] LOCKFLUSH(P 00 :00 dose, On Medi janet ORCINE)(PF) Fri Branch ) 100 04/07/22 at unit/mL 1300, injection Routine 500 Units heparin 2021- No [id number] 500U 500 Units, [facility] lock flush 04-07 IV Push, ity of (HEPARIN 17:04: 17:06 ONCE, 1 [place] LOCKFLUSH(P 00 :00 dose, On Medi janet ORCINE)(PF) Fri Branch ) 100 04/07/22 at unit/mL 1215, injection Routine 500 Units tizanidine Yes 8mg Take 8 mg [facility] (ZANAFLEX) 03-22 by mouth Colle ge 4 MG tablet 08:28: every 6 of 21 hours as Medicin needed. e nadolol Yes 40mg Take 40 mg [facility] (CORGARD) 03-22 by mouth [facility] 40 MG 08:28: daily. of tablet 21 Medicin e furosemide Yes 20mg Take 20 mg [facility] (LASIX) 20 03-22 by mouth Colle ge MG tablet 08:28: daily. of 21 Medicin e fluocinonid Yes Apply [facility] (LIDEX) 03-22 topically Colle ge 0.05 % 08:28: two times of cream 21 daily. Medicin e nitrofurant Yes 100mg Take 100 [facility] oin, 9-14 mg by [facility] macrocrysta 08:28: mouth two o f l-monohydra 21 times Medicin te, daily. e (MACROBID) 100 MG capsule oxycodone-a 2021- No 1{tbl} Take 1 Tab [facility] cetaminophe 03-22 by mouth Col lege n 08:28: 00:00 every 4 of (PERCOCET) 21 :00 hours as Medic in 10-325 MG needed. e per tablet solifenacin 2021- No 10mg Take 10 mg [facility] (VESICARE) 03-22 by mouth [facility] [facility] 10 MG 08:28: 00:00 daily. of tablet 10 :00 Medicin e Potassium 2021- No Take by [facility] Citrate 10 03-22 mouth two Col lege MEQ (1080 08:28: 00:00 times of MG) TBCR 01 :00 daily. Medicin e potassium 2021- No 10meq Take 10 [place] stone chloride CR 03-22 mEq by [facility] (KLOR-CON) 08:27: 00:00 mouth of 10 MEQ TBCR 58 :00 daily. Medici n e midodrine 2021- No Take by [facility] or 10 MG TABS 03-22 mouth. Colleg e 08:27: 00:00 of 10 :00 Medicin e aspirin 81 2021- No 81mg Take 81 mg [facility] MG tablet 03-22 by mouth [facility] 08:26: 00:00 daily. of 16 :00 Medicin e amlodipine 2021- No 2.5mg Take 2.5 [facility] (NORVASC) 03-22- mg by [facility] 2.5 MG 08:26: 00:00 mouth of tablet 13 :00 daily. Medicin e levothyroxi 2021- No 200ug Take 200 [facility] ne 03-22-14 mcg by [facility] (SYNTHROID) 08:25: 00:00 mouth of 200 MCG 28 :00 daily. Medicin tablet e promethazin 2021- No 25mg Take 25 mg [facility] e 03-22 by mouth [facility] (PHENERGAN) 08:25: 00:00 two times of 25 MG 28 :00 daily. Medicin tablet e prochlorper 2021- No 10mg Take 10 mg [facility] azine 03-22 by mouth [facility] (COMPAZINE) 08:25: 00:00 every 6 of 10 MG 28 :00 hours as Medicin tablet needed. e linaCLOtide Yes [id number] 145ug Take 145 [facility] 145 MCG 9-14 mcg by [facility] CAPS 00:00: mouth of 00 daily. Medicin e linaCLOtide 2021-0 Yes [id number] 145ug Take 145 [facility] 145 MCG 9-14 mcg by [facility] CAPS 00:00: mouth of 00 daily. Medicin e lactated 2021-0 Yes 1000mL at 42 Univer s ringers IV 9-07 mL/hr, ity of infusion 16:30: 1,000 [place] 1,000 mL 00 IV Medical Infusion, Branch CONTINUOUS , Starting on Sun03/15/22 at 1130, Until Discontinu ed, Routine, PACU lactated 2021-0 2021- No 1000mL at 42 Unive rs ringers IV 9- 09-07 mL/hr, ity of infusion 16:30: 19:42 1,000 mL, [place] as 1,000 mL 00 :50 IV Medical Infusion, Branch CONTINUOUS , Starting on Sun03/15/22 at 1130, Until Sun03/15/22 at 1442, Routine, PACU FENTanyl PF 2021-0 Yes 25ug 25 mcg, [facility] (SUBLIMAZE 03-15 Slow IV ity of (PF)) 16:27: Push, [place] injection 49 Q5MIN PRN, Medi janet 25 mcg 4 doses, Branch Starting on Sun03/15/22 at 1127, Until Discontinu ed, Routine, Pain (scale 7-10), PACU FENTanyl PF 2021-0 Yes 25ug 25 mcg, [facility] (SUBLIMAZE 9- Slow IV ity of (PF)) 16:27: Push, [place] injection 49 Q5MIN PRN, Medi janet 25 mcg 4 doses, Branch Starting on Sun03/15/22 at 1127, Until Discontinu ed, Routine, Pain (scale 4-6), PACU FENTanyl PF 0 2021- No 25ug 25 mcg, [facility] (SUBLIMAZE 03-15-07 Slow IV ity o f (PF)) 16:27: 19:42 Push, [place] injection 49 :50 Q5MIN PRN, Medi janet 25 mcg 4 doses, Branch Starting on Sun03/15/22 at 1127, Until Sun03/15/22 at 1442, Routine, Pain (scale 7-10), PACU FENTanyl PF 2021-0 2021- No 25ug 25 mcg, [facility] (SUBLIMAZE - 09-07 Slow IV ity o f (PF)) 16:27: 19:42 Push, [place] injection 49 :50 Q5MIN PRN, Medi janet 25 mcg 4 doses, Branch Starting on Sun03/15/22 at 1127, Until Sun03/15/22 at 1442, Routine, Pain (scale 4-6), PACU water for 2021- No PRN, [facility] irrigation 03-15 Starting ity of irrigation 15:50: 16:16 [place] solution 00 :07 03/15/22 at Medica l 1050, Branch Until Sun03/15/22 at 1116, Routine, Intra-op bupivacaine 2021- No PRN, Unive rs -epinephrin 03-15 Starting ity of e-pf 14:09: 16:16 on Sun [place] (SENSORCAIN 00 :07 03/15/22 at Med ical E 0909, Branch W/EPINEPHRI Intra-op NE) 0.25 %-1:200,000 30 mL, lidocaine 1% (PF) (XYLOCAINE) 30 mL NaCl 0.9% Yes 10mL 10 mL, Univer s (NS) 03-15 Slow IV ity of injection 13:20: Push, [place]N, [place] 10 mL 12 Starting Medical on Sun Branch 03/15/22 at 0820, Until Discontinu ed, Routine, line maintenanc e, DSU Pre-op NaCl 0.9% 2021- No 10mL 10 mL, Unive rs (NS) 03-15 Slow IV ity of injection 13:20: 19:42 Push, PRN, [place] 10 mL 12 :50 Starting Medical on Sun Branch 03/15/22 at 0820, Until Sun03/15/22 at 1442, Routine, line maintenanc e, DSU Pre-op levetiracet Yes 500mg Take 500 U nivers am (KEPPRA 9-07 mg by ity of ORAL) 12:42: mouth [address] [place] [id number] (two) Medical times Branch daily. levetiracet Yes 500mg Take 500 U nivers am (KEPPRA 9-07 mg by ity of ORAL) 12:42: mouth 2 [place] 48 (two) Medical times Branch daily. levetiracet 0 Yes 500mg Take 500 U nivers am (KEPPRA 9-07 mg by ity of ORAL) 12:42: mouth [address] [place] [id number] (two) Medical times Branch daily. levetiracet 2022-0 Yes 500mg Take 500 U nivers am (KEPPRA 9-07 mg by ity of ORAL) 12:42: mouth [address] [place] [id number] (two) Medical times Branch daily. levetiracet 2022-0 Yes 500mg Take 500 U nivers am (KEPPRA 9-07 mg by ity of ORAL) 12:42: mouth [address] [place] [id number] (two) Medical times Branch daily. levetiracet 2022-0 Yes 500mg Take 500 U nivers am (KEPPRA 9-07 mg by ity of ORAL) 12:42: mouth [address] [place] [id number] (two) Medical times Branch daily. levetiracet 2022-0 Yes 500mg Take 500 U nivers am (KEPPRA 9-07 mg by ity of ORAL) 12:42: [place] [address] (two) Medical times Branch daily. levetiracet 2022-0 Yes 500mg Take 500 U nivers am (KEPPRA 9-07 mg by ity of ORAL) 12:42: mouth [address] [place] [id number] (two) Medical times Branch daily. levetiracet 2022-0 Yes 500mg Take 500 U nivers am (KEPPRA 9-07 mg by ity of ORAL) 12:42: [place] [address] (two) Medical times Branch daily. levetiracet 2022-0 Yes 500mg Take 500 U nivers am (KEPPRA 9-07 mg by ity of ORAL) 12:42: [place] [address] (two) Medical times Branch daily. levetiracet 2022-0 Yes 500mg Take 500 U nivers am (KEPPRA 9-07 mg by ity of ORAL) 12:42: mouth [address] [place] [id number] (two) Medical times Branch daily. levetiracet 2022-0 Yes 500mg Take 500 U nivers am (KEPPRA 9-07 mg by ity of ORAL) 12:42: mouth [address] [place] [id number] (two) Medical times Branch daily. levetiracet 2022-0 Yes 500mg Take 500 U nivers am (KEPPRA 9-07 mg by ity of ORAL) 12:42: mouth [address] [place] [id number] (two) Medical times Branch daily. levetiracet 2022-0 Yes 500mg Take 500 U nivers am (KEPPRA 9-07 mg by ity of ORAL) 12:42: mouth [address] [place] [id number] (two) Medical times Branch daily. levetiracet 2022-0 Yes 500mg Take 500 U nivers am (KEPPRA 9-07 mg by ity of ORAL) 12:42: mouth [address] [place] [id number] (two) Medical times Branch daily. levetiracet 2022-0 Yes 500mg Take 500 U nivers am (KEPPRA 9-07 mg by ity of ORAL) 12:42: mouth [address] [place] [id number] (two) Medical times Branch daily. levetiracet 2022-0 Yes 500mg Take 500 U nivers am (KEPPRA 9-07 mg by ity of ORAL) 12:42: mouth [address] [place] [id number] (two) Medical times Branch daily. levetiracet 2022-0 Yes 500mg Take 500 U nivers am (KEPPRA 9-07 mg by ity of ORAL) 12:42: mouth [address] [place] [id number] (two) Medical times Branch daily. levetiracet 2022-0 Yes 500mg Take 500 U nivers am (KEPPRA 9-07 mg by ity of ORAL) 12:42: [place] [address] (two) Medical times Branch daily. levetiracet 2022-0 Yes 500mg Take 500 U nivers am (KEPPRA 9-07 mg by ity of ORAL) 12:42: [place] [address] (two) Medical times Branch daily. levetiracet 2022-0 Yes 500mg Take 500 U nivers am (KEPPRA 9-07 mg by ity of ORAL) 12:42: mouth [address] [place] [id number] (two) Medical times Branch daily. levetiracet 2022-0 Yes 500mg Take 500 U nivers am (KEPPRA 9-07 mg by ity of ORAL) 12:42: mouth [address] [place] [id number] (two) Medical times Branch daily. levetiracet 2022-0 Yes 500mg Take 500 U nivers am (KEPPRA 9-07 mg by ity of ORAL) 12:42: mouth [address] [place] [id number] (two) Medical times Branch daily. levetiracet 2022-0 Yes 500mg Take 500 U nivers am (KEPPRA 9-07 mg by ity of ORAL) 12:42: mouth 2 [place] [address] (two) Medical times Branch daily. levetiracet 2022-0 Yes 500mg Take 500 U nivers am (KEPPRA 9-07 mg by ity of ORAL) 12:42: mouth 2 [place] [address] (two) Medical times Branch daily. levetiracet 2022-0 Yes 500mg Take 500 U nivers am (KEPPRA 9-07 mg by ity of ORAL) 12:42: mouth 2 [place] [address] (two) Medical times Branch daily. levetiracet 2022-0 Yes 500mg Take 500 U nivers am (KEPPRA 9-07 mg by ity of ORAL) 12:42: mouth 2 [place] [address] (two) Medical times Branch daily. levetiracet 2022-0 Yes 500mg Take 500 U nivers am (KEPPRA 9-07 mg by ity of ORAL) 12:42: mouth 2 [place] [address] (two) Medical times Branch daily. levetiracet 2-0 Yes 500mg Take 500 U nivers am (KEPPRA 9-07 mg by ity of ORAL) 12:42: mouth 2 [place] [address] (two) Medical times Branch daily. furosemide 2021-0 2022- No 10mg Take 10 mg [facility] (LASIX 03-15 by mouth ity of ORAL) 11:57: 00:00 daily. As [place] 57 :00 needed Medical Branch furosemide 2021-0 202- No 10mg Take 10 mg [facility] (LASIX 03-15 by mouth ity of ORAL) 11:57: 00:00 daily. As [place] 57 :00 needed Medical Branch hydrocodone 2021-0 Yes TAKE 1 [facility] -acetaminop 9-07 TABLET BY Col lege hen (NORCO) 00:00: MOUTH of 5-325 mg 00 EVERY 6 Medicin tablet HOURS FOR e UP TO 7 DAYS NEEDED FOR SEVERE PAIN OR ACUTE PAIN ketorolac 2021-0 Yes as needed. [facility] (TORADOL) 9-07 [facility] 10 MG 00:00: of tablet 00 Medicin e hydrocodone 0 Yes TAKE 1 [facility] -acetaminop 9-07 TABLET BY Col [facility]ge hen (NORCO) 00:00: MOUTH of 5-325 mg 00 EVERY 6 Medicin tablet HOURS FOR e UP TO 7 DAYS NEEDED FOR SEVERE PAIN OR ACUTE PAIN ketorolac 2021-0 Yes as needed. [facility] (TORADOL) 9-07 [facility] 10 MG 00:00: of tablet 00 Medicin e HYDROcodone 2021- No [id number] 1{tbl} Take 1 U nivers -acetaminop 03-15-15 tablet by it y of hen (NORCO) 00:00: 04:59 mouth [place] 5-325 mg 00 :00 every 6 Medical tablet (six) Branch hours as needed for Pain (scale 7-10) for up to 7 days. Indication s: acute pain ketorolac 2021-0 2021- No [id number] 10mg Take 1 [facility] 10 mg -01 14-15 tablet by ity of tablet 00:00: 04:59 mouth [place] 00 :00 every 6 Medical (six) Branch hours as needed for Alternate with [place] for pain scale 4-6 for up to 7 days. HYDROcodone 2021-0 2021- No [id number] 1{tbl} Take 1 U nivers -acetaminop - 09-15 tablet by it y of hen (NORCO) 00:00: 04:59 mouth [place] 5-325 mg 00 :00 every 6 Medical tablet (six) Branch hours as needed for Pain (scale 7-10) for up to 7 days. Indication s: acute pain ketorolac 2021-0 2021- No [id number] 10mg Take 1 [facility] 10 mg 03-15-15 tablet by ity of tablet 00:00: 04:59 mouth [place] 00 :00 every 6 Medical (six) Branch hours as needed for Alternate with [place] for pain scale 4-6 for up to 7 days. HYDROcodone 2021-0 2021- No [id number] 1{tbl} Take 1 U nivers -acetaminop - 09-15 tablet by it y of hen (NORCO) 00:00: 04:59 mouth [place] 5-325 mg 00 :00 every 6 Medical tablet (six) Branch hours as needed for Pain (scale 7-10) for up to 7 days. Indication s: acute pain ketorolac 2-0 2021- No [id number] 10mg Take 1 [facility] 10 mg -07 09-15 tablet by ity of tablet 00:00: 04:59 mouth [place] 00 :00 every 6 Medical (six) Branch hours as needed for Alternate with [place] for pain scale 4-6 for up to 7 days. HYDROcodone 2021- No 4647 1{tbl} Take 1 U nivers -acetaminop 03-15 tablet by it y of hen (NORCO) 00:00: 04:59 mouth [place] 5-325 mg 00 :00 every 6 Medical tablet (six) Branch hours as needed for Pain (scale 7-10) for up to 7 days. Indication s: acute pain ketorolac 2021- No [id number] 10mg Take 1 [facility] 10 mg 03-15 tablet by ity of tablet 00:00: 04:59 mouth [place] 00 :00 every 6 Medical (six) Branch hours as needed for Alternate with [place] for pain scale 4-6 for up to 7 days. traMADoL 50 2021- No 4647 50mg Take 1 Uni vers mg tablet 03-15 tablet by ity of 00:00: 00:00 mouth [place] 00 :00 every 6 Medical (six) Branch hours for 7 days. Indication s: acute pain traMADoL 50 2021- No 4647 50mg Take 1 Uni vers mg tablet 03-15 tablet by ity of 00:00: 00:00 mouth [place] 00 :00 every 6 Medical (six) Branch hours for 7 days. Indication s: acute pain midodrine 5 2021- No 5mg Take 5 mg [facility] mg tablet 03-08 by mouth ity o f 14:14: 00:00 daily. As [place] 56 :00 needed Medical Branch midodrine 5 2021- No 5mg Take 5 mg [facility] mg tablet 03-08 by mouth ity o f 14:14: 00:00 daily. As [place] 56 :00 needed Medical Branch midodrine 5 2021- No 5mg Take 5 mg [facility] mg tablet 03-08 by mouth ity o f 14:14: 00:00 daily. As [place] 56 :00 needed Medical Branch furosemide 2021- Yes 10mg Take 10 mg U nivers (LASIX 8-31 by mouth ity of ORAL) 14:13: daily. As [place] [address] needed Medical Branch levetiracet 2021-0 Yes 500mg Take 500 U nivers am (KEPPRA 8-31 mg by ity of ORAL) 14:13: mouth 2 [place] [address] (two) Medical times [place] daily. furosemide 2021-0 Yes 10mg Take 10 mg U nivers (LASIX 8-31 by mouth ity of ORAL) 14:13: daily. As [place] [address] needed Medical Branch levetiracet 2021-0 Yes 500mg Take 500 U nivers am (KEPPRA 8-31 mg by ity of ORAL) 14:13: mouth 2 [place] [address] (two) Medical times [place] daily. furosemide 2021-0 Yes 10mg Take 10 mg U nivers (LASIX 8-31 by mouth ity of ORAL) 14:13: daily. As [place] [address] needed Medical Branch levetiracet 2021-0 Yes 500mg Take 500 U nivers am (KEPPRA 8-31 mg by ity of ORAL) 14:13: mouth 2 [place] [address] (two) Medical times [place] daily. nadoloL 40 2021-0 2021- No 40mg Take 40 mg [facility] mg tablet 8-30 08-30 by mouth ity o f 17:08: 00:00 daily. [place] 23 :00 [facility] Branch nadoloL 40 2021-0 2021- No 40mg Take 40 mg [facility] mg tablet 8-30 08-30 by mouth ity o f 17:08: 00:00 daily. [place] 23 :00 [facility] Branch promethazin Yes TAKE 1 [facility] e 8-30 TABLET BY [facility] (PHENERGAN) 00:00: MOUTH of 50 MG 00 EVERY 6 TO Medicin tablet 8 HOURS e NEEDED FORNAUSEA AND VOMITING promethazin 0 Yes TAKE 1 [facility] e 8-30 TABLET BY [facility] (PHENERGAN) 00:00: MOUTH of 50 MG 00 EVERY 6 TO Medicin tablet 8 HOURS e NEEDED [facility] AND VOMITING nadoloL 40 2021-0 Yes [id number] 40mg Take 1 [facility] tablet 8-30 tablet by [facility] f 00:00: mouth in [place] 00 the Medical morning. Branch promethazin 2021-0 Yes [id number] 50mg Take 1 [facility]-30 tablet by [facility] tablet 00:00: mouth [place] 00 every 8 Medical (eight) Branch hours as needed for Nausea and Vomiting (N/V). TAKE 1 TABLET BY MOUTH EVERY 6 HOURS NEEDED FOR NAUSEA AND VOMITING nadoloL 40 2022-0 Yes [id number] 40mg Take 1 [facility] tablet 8-30 tablet by [facility] f 00:00: mouth in [place] 00 the Medical morning. Branch promethazin 2021-0 Yes [id number] 50mg Take 1 [facility] mg 8-30 tablet by [facility] tablet 00:00: mouth [place] 00 every 8 Medical (eight) Branch hours as needed for Nausea and Vomiting (N/V). TAKE 1 TABLET BY MOUTH EVERY 6 HOURS NEEDED FOR NAUSEA AND VOMITING nadoloL 40 2-0 Yes [id number] 40mg Take 1 [facility] tablet 8-30 tablet by [facility] f 00:00: mouth in [place] 00 the Medical morning. Branch promethazin 2021-0 Yes [id number] 50mg Take 1 [facility] mg 8-30 tablet by [facility] tablet 00:00: mouth [place] 00 every 8 Medical (eight) Branch hours as needed for Nausea and Vomiting (N/V). TAKE 1 TABLET BY MOUTH EVERY 6 HOURS NEEDED FOR NAUSEA AND VOMITING nadoloL 40 2021-0 Yes [id number] 40mg Take 1 [facility] tablet 8-30 tablet by [facility] f 00:00: mouth in [place] 00 the Medical morning. Branch promethazin 2021-0 Yes [id number] 50mg Take 1 [facility] mg 8-30 tablet by [facility] tablet 00:00: mouth [place] 00 every 8 Medical (eight) Branch hours as needed for Nausea and Vomiting (N/V). TAKE 1 TABLET BY MOUTH EVERY 6 HOURS NEEDED FOR NAUSEA AND VOMITING nadoloL 40 2-0 Yes [id number] 40mg Take 1 [facility] tablet 8-30 tablet by [facility] f 00:00: mouth in [place] 00 the Medical morning. Branch promethazin 2-0 Yes [id number] 50mg Take 1 [facility] 50 mg 8-30 tablet by [facility] tablet 00:00: mouth [place] 00 every 8 Medical (eight) Branch hours as needed for Nausea and Vomiting (N/V). TAKE 1 TABLET BY MOUTH EVERY 6 HOURS NEEDED FOR NAUSEA AND VOMITING nadoloL 40 2-0 Yes [id number] 40mg Take 1 [facility] tablet 8-30 tablet by [facility] f 00:00: mouth in [place] 00 the Medical morning. Branch promethazin 2021-0 Yes [id number] 50mg Take 1 [facility] 50 mg 8-30 tablet by [facility] tablet 00:00: mouth [place] 00 every 8 Medical (eight) Branch hours as needed for Nausea and Vomiting (N/V). TAKE 1 TABLET BY MOUTH EVERY 6 HOURS NEEDED FOR NAUSEA AND VOMITING nadoloL 40 2021-0 Yes [id number] 40mg Take 1 [facility] tablet 8-30 tablet by [facility] f 00:00: mouth in [place] 00 the Medical morning. Branch promethazin 2021-0 Yes [id number] 50mg Take 1 [facility] 50 mg 8-30 tablet by [facility] tablet 00:00: mouth [place] 00 every 8 Medical (eight) Branch hours as needed for Nausea and Vomiting (N/V). TAKE 1 TABLET BY MOUTH EVERY 6 HOURS NEEDED FOR NAUSEA AND VOMITING nadoloL 40 2021-0 Yes [id number] 40mg Take 1 [facility] tablet 8-30 tablet by [facility] f 00:00: mouth in [place] 00 the Medical morning. Branch promethazin 2021-0 Yes [id number] 50mg Take 1 [facility] mg 8-30 tablet by [facility] tablet 00:00: mouth [place] 00 every 8 Medical (eight) Branch hours as needed for Nausea and Vomiting (N/V). TAKE 1 TABLET BY MOUTH EVERY 6 HOURS NEEDED FOR NAUSEA AND VOMITING nadoloL 40 2021-0 Yes [id number] 40mg Take 1 [facility] tablet 8-30 tablet by [facility] f 00:00: mouth in [place] 00 the Medical morning. Branch promethazin 2021-0 Yes [id number] 50mg Take 1 [facility] 50 mg 8-30 tablet by [facility] tablet 00:00: mouth [place] 00 every 8 Medical (eight) Branch hours as needed for Nausea and Vomiting (N/V). TAKE 1 TABLET BY MOUTH EVERY 6 HOURS NEEDED FOR NAUSEA AND VOMITING nadoloL 40 2021-0 Yes [id number] 40mg Take 1 [facility] tablet 8-30 tablet by [facility] f 00:00: mouth in [place] 00 the Medical morning. Branch promethazin 2021-0 Yes [id number] 50mg Take 1 [facility] 50 mg 8-30 tablet by [facility] tablet 00:00: mouth [place] 00 every 8 Medical (eight) Branch hours as needed for Nausea and Vomiting (N/V). TAKE 1 TABLET BY MOUTH EVERY 6 HOURS NEEDED FOR NAUSEA AND VOMITING nadoloL 40 2-0 Yes [id number] 40mg Take 1 [facility] tablet 8-30 tablet by [facility] f 00:00: mouth in [place] 00 the Medical morning. Branch promethazin 2021-0 Yes [id number] 50mg Take 1 [facility] 50 mg 8-30 tablet by [facility] tablet 00:00: mouth [place] 00 every 8 Medical (eight) Branch hours as needed for Nausea and Vomiting (N/V). TAKE 1 TABLET BY MOUTH EVERY 6 HOURS NEEDED FOR NAUSEA AND VOMITING nadoloL 40 2-0 Yes [id number] 40mg Take 1 [facility] tablet 8-30 tablet by [facility] f 00:00: mouth in [place] 00 the Medical morning. Branch promethazin 2021-0 Yes [id number] 50mg Take 1 [facility] 50 mg 8-30 tablet by [facility] tablet 00:00: mouth [place] 00 every 8 Medical (eight) Branch hours as needed for Nausea and Vomiting (N/V). TAKE 1 TABLET BY MOUTH EVERY 6 HOURS NEEDED FOR NAUSEA AND VOMITING nadoloL 40 2021-0 Yes [id number] 40mg Take 1 [facility] tablet 8-30 tablet by [facility] f 00:00: mouth in [place] 00 the Medical morning. Branch promethazin 2021-0 Yes [id number] 50mg Take 1 [facility] mg 8-30 tablet by [facility] tablet 00:00: mouth [place] 00 every 8 Medical (eight) Branch hours as needed for Nausea and Vomiting (N/V). TAKE 1 TABLET BY MOUTH EVERY 6 HOURS NEEDED FOR NAUSEA AND VOMITING nadoloL 40 2-0 Yes [id number] 40mg Take 1 [facility] tablet 8-30 tablet by [facility] f 00:00: mouth in [place] 00 the Medical morning. Branch promethazin 2-0 Yes [id number] 50mg Take 1 [facility] 50 mg 8-30 tablet by [facility] tablet 00:00: mouth [place] 00 every 8 Medical (eight) Branch hours as needed for Nausea and Vomiting (N/V). TAKE 1 TABLET BY MOUTH EVERY 6 HOURS NEEDED FOR NAUSEA AND VOMITING nadoloL 40 2-0 Yes [id number] 40mg Take 1 [facility] tablet 8-30 tablet by [facility] f 00:00: mouth in [place] 00 the Medical morning. Branch promethazin 2021-0 Yes [id number] 50mg Take 1 [facility] mg 8-30 tablet by [facility] tablet 00:00: mouth [place] 00 every 8 Medical (eight) Branch hours as needed for Nausea and Vomiting (N/V). TAKE 1 TABLET BY MOUTH EVERY 6 HOURS NEEDED FOR NAUSEA AND VOMITING nadoloL 40 2021-0 Yes [id number] 40mg Take 1 [facility] tablet 8-30 tablet by [facility] f 00:00: mouth in [place] 00 the Medical morning. Branch promethazin 2021-0 Yes [id number] 50mg Take 1 [facility] mg 8-30 tablet by [facility] tablet 00:00: mouth [place] 00 every 8 Medical (eight) Branch hours as needed for Nausea and Vomiting (N/V). TAKE 1 TABLET BY MOUTH EVERY 6 HOURS NEEDED FOR NAUSEA AND VOMITING nadoloL 40 2021-0 Yes [id number] 40mg Take 1 [facility] tablet 8-30 tablet by [facility] f 00:00: mouth in [place] 00 the Medical morning. Branch promethazin 2021-0 Yes [id number] 50mg Take 1 [facility] mg 8-30 tablet by [facility] tablet 00:00: mouth [place] 00 every 8 Medical (eight) Branch hours as needed for Nausea and Vomiting (N/V). TAKE 1 TABLET BY MOUTH EVERY 6 HOURS NEEDED FOR NAUSEA AND VOMITING nadoloL 40 2021-0 Yes [id number] 40mg Take 1 [facility] tablet 8-30 tablet by [facility] f 00:00: mouth in [place] 00 the Medical morning. Branch promethazin 2021-0 Yes [id number] 50mg Take 1 [facility] mg 8-30 tablet by [facility] tablet 00:00: mouth [place] 00 every 8 Medical (eight) Branch hours as needed for Nausea and Vomiting (N/V). TAKE 1 TABLET BY MOUTH EVERY 6 HOURS NEEDED FOR NAUSEA AND VOMITING nadoloL 40 2021-0 Yes [id number] 40mg Take 1 [facility] tablet 8-30 tablet by [facility] f 00:00: mouth in [place] 00 the Medical morning. Branch promethazin 2021-0 Yes [id number] 50mg Take 1 [facility] mg 8-30 tablet by [facility] tablet 00:00: mouth [place] 00 every 8 Medical (eight) Branch hours as needed for Nausea and Vomiting (N/V). TAKE 1 TABLET BY MOUTH EVERY 6 HOURS NEEDED FOR NAUSEA AND VOMITING nadoloL 40 2-0 Yes [id number] 40mg Take 1 [facility] tablet 8-30 tablet by [facility] f 00:00: mouth in [place] 00 the Medical morning. Branch promethazin 2021-0 Yes [id number] 50mg Take 1 [facility] mg 8-30 tablet by [facility] tablet 00:00: mouth [place] 00 every 8 Medical (eight) Branch hours as needed for Nausea and Vomiting (N/V). TAKE 1 TABLET BY MOUTH EVERY 6 HOURS NEEDED FOR NAUSEA AND VOMITING nadoloL 40 2021-0 Yes [id number] 40mg Take 1 [facility] tablet 8-30 tablet by [facility] f 00:00: mouth in [place] 00 the Medical morning. Branch promethazin 2021-0 Yes [id number] 50mg Take 1 [facility] mg 8-30 tablet by [facility] tablet 00:00: mouth [place] 00 every 8 Medical (eight) Branch hours as needed for Nausea and Vomiting (N/V). TAKE 1 TABLET BY MOUTH EVERY 6 HOURS NEEDED FOR NAUSEA AND VOMITING nadoloL 40 2021-0 Yes [id number] 40mg Take 1 [facility] tablet 8-30 tablet by [facility] f 00:00: mouth in [place] 00 the Medical morning. Branch promethazin 2021-0 Yes [id number] 50mg Take 1 [facility] mg 8-30 tablet by [facility] tablet 00:00: mouth [place] 00 every 8 Medical (eight) Branch hours as needed for Nausea and Vomiting (N/V). TAKE 1 TABLET BY MOUTH EVERY 6 HOURS NEEDED FOR NAUSEA AND VOMITING nadoloL 40 2-0 Yes [id number] 40mg Take 1 [facility] tablet 8-30 tablet by [facility] f 00:00: mouth in [place] 00 the Medical morning. Branch promethazin 2-0 Yes [id number] 50mg Take 1 [facility] 50 mg 8-30 tablet by [facility] tablet 00:00: mouth [place] 00 every 8 Medical (eight) Branch hours as needed for Nausea and Vomiting (N/V). TAKE 1 TABLET BY MOUTH EVERY 6 HOURS NEEDED FOR NAUSEA AND VOMITING nadoloL 40 2-0 Yes [id number] 40mg Take 1 [facility] tablet 8-30 tablet by [facility] f 00:00: mouth in [place] 00 the Medical morning. Branch promethazin 2021-0 Yes [id number] 50mg Take 1 [facility] 50 mg 8-30 tablet by [facility] tablet 00:00: mouth [place] 00 every 8 Medical (eight) Branch hours as needed for Nausea and Vomiting (N/V). TAKE 1 TABLET BY MOUTH EVERY 6 HOURS NEEDED FOR NAUSEA AND VOMITING nadoloL 40 2021-0 Yes [id number] 40mg Take 1 [facility] tablet 8-30 tablet by [facility] f 00:00: mouth in [place] 00 the Medical morning. Branch promethazin 2021-0 Yes [id number] 50mg Take 1 [facility] 50 mg 8-30 tablet by [facility] tablet 00:00: mouth [place] 00 every 8 Medical (eight) Branch hours as needed for Nausea and Vomiting (N/V). TAKE 1 TABLET BY MOUTH EVERY 6 HOURS NEEDED FOR NAUSEA AND VOMITING nadoloL 40 2021-0 Yes [id number] 40mg Take 1 [facility] tablet 8-30 tablet by [facility] f 00:00: mouth in [place] 00 the Medical morning. Branch promethazin 2021-0 Yes [id number] 50mg Take 1 [facility] 50 mg 8-30 tablet by [facility] tablet 00:00: mouth [place] 00 every 8 Medical (eight) Branch hours as needed for Nausea and Vomiting (N/V). TAKE 1 TABLET BY MOUTH EVERY 6 HOURS NEEDED FOR NAUSEA AND VOMITING nadoloL 40 2021-0 Yes [id number] 40mg Take 1 [facility] tablet 8-30 tablet by [facility] o f 00:00: mouth in [place] 00 the Medical morning. Branch promethazin 2021-0 Yes [id number] 50mg Take 1 [facility] 50 mg 8-30 tablet by [facility] tablet 00:00: mouth [place] 00 every 8 Medical (eight) Branch hours as needed for Nausea and Vomiting (N/V). TAKE 1 TABLET BY MOUTH EVERY 6 HOURS NEEDED FOR NAUSEA AND VOMITING nadoloL 40 2021-0 Yes [id number] 40mg Take 1 [facility] tablet 8-30 tablet by [facility] f 00:00: mouth in [place] 00 the Medical morning. Branch promethazin 2021-0 Yes [id number] 50mg Take 1 [facility] 50 mg 8-30 tablet by [facility] tablet 00:00: mouth [place] 00 every 8 Medical (eight) Branch hours as needed for Nausea and Vomiting (N/V). TAKE 1 TABLET BY MOUTH EVERY 6 HOURS NEEDED FOR NAUSEA AND VOMITING nadoloL 40 2-0 Yes [id number] 40mg Take 1 [facility] tablet 8-30 tablet by [facility] f 00:00: mouth in [place] 00 the Medical morning. Branch promethazin 2021-0 Yes [id number] 50mg Take 1 [facility] 50 mg 8-30 tablet by [facility] tablet 00:00: mouth [place] 00 every 8 Medical (eight) Branch hours as needed for Nausea and Vomiting (N/V). TAKE 1 TABLET BY MOUTH EVERY 6 HOURS NEEDED FOR NAUSEA AND VOMITING nadoloL 40 2021-0 Yes [id number] 40mg Take 1 [facility] tablet 8-30 tablet by [facility] o f 00:00: mouth in [place] 00 the Medical morning. Branch promethazin 2021-0 Yes [id number] 50mg Take 1 [facility] 50 mg 8-30 tablet by [facility] tablet 00:00: mouth [place] 00 every 8 Medical (eight) Branch hours as needed for Nausea and Vomiting (N/V). TAKE 1 TABLET BY MOUTH EVERY 6 HOURS NEEDED FOR NAUSEA AND VOMITING promethazin 2021-0 Yes [id number] 50mg Take 1 [facility] 50 mg 8-30 tablet by [facility] tablet 00:00: mouth [place] 00 every 8 Medical (eight) Branch hours as needed for Nausea and Vomiting (N/V). TAKE 1 TABLET BY MOUTH EVERY 6 HOURS NEEDED FOR NAUSEA AND VOMITING promethazin 2021-0 Yes [id number] 50mg Take 1 [facility] 50 mg 8-30 tablet by [facility] tablet 00:00: mouth [place] 00 every 8 Medical (eight) Branch hours as needed for Nausea and Vomiting (N/V). TAKE 1 TABLET BY MOUTH EVERY 6 HOURS NEEDED FOR NAUSEA AND VOMITING promethazin 2-0 Yes [id number] 50mg Take 1 [facility] 50 mg 8-30 tablet by [facility] tablet 00:00: mouth [place] 00 every 8 Medical (eight) Branch hours as needed for Nausea and Vomiting (N/V). TAKE 1 TABLET BY MOUTH EVERY 6 HOURS NEEDED FOR NAUSEA AND VOMITING promethazin 2-0 Yes [id number] 50mg Take 1 [facility] 50 mg 8-30 tablet by [facility] tablet 00:00: mouth [place] 00 every 8 Medical (eight) Branch hours as needed for Nausea and Vomiting (N/V). TAKE 1 TABLET BY MOUTH EVERY 6 HOURS NEEDED FOR NAUSEA AND VOMITING promethazin 2022-0 Yes [id number] 50mg Take 1 [facility] 50 mg 8-30 tablet by [facility] tablet 00:00: mouth [place] 00 every 8 Medical (eight) Branch hours as needed for Nausea and Vomiting (N/V). TAKE 1 TABLET BY MOUTH EVERY 6 HOURS NEEDED FOR NAUSEA AND VOMITING promethazin 2022-0 Yes [id number] 50mg Take 1 [facility] 50 mg 8-30 tablet by [facility] tablet 00:00: mouth [place] 00 every 8 Medical (eight) Branch hours as needed for Nausea and Vomiting (N/V). TAKE 1 TABLET BY MOUTH EVERY 6 HOURS NEEDED FOR NAUSEA AND VOMITING promethazin 2022-0 Yes [id number] 50mg Take 1 [facility] 50 mg 8-30 tablet by [facility] tablet 00:00: mouth [place] 00 every 8 Medical (eight) Branch hours as needed for Nausea and Vomiting (N/V). TAKE 1 TABLET BY MOUTH EVERY 6 HOURS NEEDED FOR NAUSEA AND VOMITING promethazin 2022-0 Yes [id number] 50mg Take 1 [facility] 50 mg 8-30 tablet by [facility] tablet 00:00: mouth [place] 00 every 8 Medical (eight) Branch hours as needed for Nausea and Vomiting (N/V). TAKE 1 TABLET BY MOUTH EVERY 6 HOURS NEEDED FOR NAUSEA AND VOMITING promethazin 2022-0 Yes [id number] 50mg Take 1 [facility] 50 mg 8-30 tablet by [facility] tablet 00:00: mouth [place] 00 every 8 Medical (eight) Branch hours as needed for Nausea and Vomiting (N/V). TAKE 1 TABLET BY MOUTH EVERY 6 HOURS NEEDED FOR NAUSEA AND VOMITING promethazin 2022-0 Yes [id number] 50mg Take 1 [facility] 50 mg 8-30 tablet by [facility] tablet 00:00: mouth [place] 00 every 8 Medical (eight) Branch hours as needed for Nausea and Vomiting (N/V). TAKE 1 TABLET BY MOUTH EVERY 6 HOURS NEEDED FOR NAUSEA AND VOMITING promethazin 2022-0 Yes [id number] 50mg Take 1 [facility] 50 mg 8-30 tablet by [facility] tablet 00:00: mouth [place] 00 every 8 Medical (eight) Branch hours as needed for Nausea and Vomiting (N/V). TAKE 1 TABLET BY MOUTH EVERY 6 HOURS NEEDED FOR NAUSEA AND VOMITING promethazin 2022-0 Yes [id number] 50mg Take 1 [facility] 50 mg 8-30 tablet by [facility] tablet 00:00: mouth [place] 00 every 8 Medical (eight) Branch hours as needed for Nausea and Vomiting (N/V). TAKE 1 TABLET BY MOUTH EVERY 6 HOURS NEEDED FOR NAUSEA AND VOMITING promethazin 2022-0 Yes [id number] 50mg Take 1 [facility] 50 mg 8-30 tablet by [facility] tablet 00:00: mouth [place] 00 every 8 Medical (eight) Branch hours as needed for Nausea and Vomiting (N/V). TAKE 1 TABLET BY MOUTH EVERY 6 HOURS NEEDED FOR NAUSEA AND VOMITING promethazin 2022-0 Yes [id number] 50mg Take 1 [facility] 50 mg 8-30 tablet by [facility] tablet 00:00: mouth [place] 00 every 8 Medical (eight) Branch hours as needed for Nausea and Vomiting (N/V). TAKE 1 TABLET BY MOUTH EVERY 6 HOURS NEEDED FOR NAUSEA AND VOMITING promethazin 2022-0 Yes [id number] 50mg Take 1 [facility] 50 mg 8-30 tablet by [facility] tablet 00:00: mouth [place] 00 every 8 Medical (eight) Branch hours as needed for Nausea and Vomiting (N/V). TAKE 1 TABLET BY MOUTH EVERY 6 HOURS NEEDED FOR NAUSEA AND VOMITING promethazin 2022-0 Yes [id number] 50mg Take 1 [facility] 50 mg 8-30 tablet by [facility] tablet 00:00: mouth [place] 00 every 8 Medical (eight) Branch hours as needed for Nausea and Vomiting (N/V). TAKE 1 TABLET BY MOUTH EVERY 6 HOURS NEEDED FOR NAUSEA AND VOMITING promethazin 2022-0 Yes [id number] 50mg Take 1 [facility] 50 mg 8-30 tablet by [facility] tablet 00:00: mouth [place] 00 every 8 Medical (eight) Branch hours as needed for Nausea and Vomiting (N/V). TAKE 1 TABLET BY MOUTH EVERY 6 HOURS NEEDED FOR NAUSEA AND VOMITING promethazin 2022-0 Yes [id number] 50mg Take 1 [facility] 50 mg 8-30 tablet by [facility] tablet 00:00: mouth [place] 00 every 8 Medical (eight) Branch hours as needed for Nausea and Vomiting (N/V). TAKE 1 TABLET BY MOUTH EVERY 6 HOURS NEEDED FOR NAUSEA AND VOMITING promethazin 2022-0 Yes [id number] 50mg Take 1 [facility] 50 mg 8-30 tablet by [facility] tablet 00:00: mouth [place] 00 every 8 Medical (eight) Branch hours as needed for Nausea and Vomiting (N/V). TAKE 1 TABLET BY MOUTH EVERY 6 HOURS NEEDED FOR NAUSEA AND VOMITING promethazin 2022-0 Yes [id number] 50mg Take 1 [facility] 50 mg 8-30 tablet by [facility] tablet 00:00: mouth [place] 00 every 8 Medical (eight) Branch hours as needed for Nausea and Vomiting (N/V). TAKE 1 TABLET BY MOUTH EVERY 6 HOURS NEEDED FOR NAUSEA AND VOMITING promethazin 2022-0 Yes [id number] 50mg Take 1 [facility] 50 mg 8-30 tablet by [facility] tablet 00:00: mouth [place] 00 every 8 Medical (eight) Branch hours as needed for Nausea and Vomiting (N/V). TAKE 1 TABLET BY MOUTH EVERY 6 HOURS NEEDED FOR NAUSEA AND VOMITING promethazin 2-0 Yes [id number] 50mg Take 1 [facility] 50 mg 8-30 tablet by [facility] tablet 00:00: mouth [place] 00 every 8 Medical (eight) Branch hours as needed for Nausea and Vomiting (N/V). TAKE 1 TABLET BY MOUTH EVERY 6 HOURS NEEDED FOR NAUSEA AND VOMITING promethazin 2-0 Yes [id number] 50mg Take 1 [facility] 50 mg 8-30 tablet by [facility] tablet 00:00: mouth [place] 00 every 8 Medical (eight) Branch hours as needed for Nausea and Vomiting (N/V). TAKE 1 TABLET BY MOUTH EVERY 6 HOURS NEEDED FOR NAUSEA AND VOMITING promethazin 2022-0 Yes [id number] 50mg Take 1 [facility] 50 mg 8-30 tablet by [facility] tablet 00:00: mouth [place] 00 every 8 Medical (eight) Branch hours as needed for Nausea and Vomiting (N/V). TAKE 1 TABLET BY MOUTH EVERY 6 HOURS NEEDED FOR NAUSEA AND VOMITING promethazin 2022-0 Yes [id number] 50mg Take 1 [facility] 50 mg 8-30 tablet by [facility] tablet 00:00: mouth [place] 00 every 8 Medical (eight) Branch hours as needed for Nausea and Vomiting (N/V). TAKE 1 TABLET BY MOUTH EVERY 6 HOURS NEEDED FOR NAUSEA AND VOMITING promethazin 2022-0 Yes [id number] 50mg Take 1 [facility] 50 mg 8-30 tablet by [facility] tablet 00:00: mouth [place] 00 every 8 Medical (eight) Branch hours as needed for Nausea and Vomiting (N/V). TAKE 1 TABLET BY MOUTH EVERY 6 HOURS NEEDED FOR NAUSEA AND VOMITING promethazin 2022-0 Yes [id number] 50mg Take 1 [facility] 50 mg 8-30 tablet by [facility] tablet 00:00: mouth [place] 00 every 8 Medical (eight) Branch hours as needed for Nausea and Vomiting (N/V). TAKE 1 TABLET BY MOUTH EVERY 6 HOURS NEEDED FOR NAUSEA AND VOMITING promethazin 2-0 Yes [id number] 50mg Take 1 [facility] 50 mg 8-30 tablet by [facility] tablet 00:00: mouth [place] 00 every 8 Medical (eight) Branch hours as needed for Nausea and Vomiting (N/V). TAKE 1 TABLET BY MOUTH EVERY 6 HOURS NEEDED FOR NAUSEA AND VOMITING promethazin 2021-0 Yes [id number] 50mg Take 1 [facility] 50 mg 8-30 tablet by [facility] tablet 00:00: mouth [place] 00 every 8 Medical (eight) Branch hours as needed for Nausea and Vomiting (N/V). TAKE 1 TABLET BY MOUTH EVERY 6 HOURS NEEDED FOR NAUSEA AND VOMITING promethazin 2021-0 Yes [id number] 50mg Take 1 [facility] 50 mg 8-30 tablet by [facility] tablet 00:00: mouth [place] 00 every 8 Medical (eight) Branch hours as needed for Nausea and Vomiting (N/V). TAKE 1 TABLET BY MOUTH EVERY 6 HOURS NEEDED FOR NAUSEA AND VOMITING promethazin 2021-0 Yes [id number] 50mg Take 1 [facility] 50 mg 8-30 tablet by [facility] tablet 00:00: mouth [place] 00 every 8 Medical (eight) Branch hours as needed for Nausea and Vomiting (N/V). TAKE 1 TABLET BY MOUTH EVERY 6 HOURS NEEDED FOR NAUSEA AND VOMITING promethazin 2-0 Yes [id number] 50mg Take 1 [facility] 50 mg 8-30 tablet by [facility] tablet 00:00: mouth [place] 00 every 8 Medical (eight) Branch hours as needed for Nausea and Vomiting (N/V). TAKE 1 TABLET BY MOUTH EVERY 6 HOURS NEEDED FOR NAUSEA AND VOMITING promethazin 2-0 Yes [id number] 50mg Take 1 [facility] 50 mg 8-30 tablet by [facility] tablet 00:00: mouth [place] 00 every 8 Medical (eight) Branch hours as needed for Nausea and Vomiting (N/V). TAKE 1 TABLET BY MOUTH EVERY 6 HOURS NEEDED FOR NAUSEA AND VOMITING promethazin 2022-0 Yes [id number] 50mg Take 1 [facility] 50 mg 8-30 tablet by [facility] tablet 00:00: mouth [place] 00 every 8 Medical (eight) Branch hours as needed for Nausea and Vomiting (N/V). TAKE 1 TABLET BY MOUTH EVERY 6 HOURS NEEDED FOR NAUSEA AND VOMITING promethazin 2022-0 Yes [id number] 50mg Take 1 [facility] 50 mg 8-30 tablet by [facility] tablet 00:00: mouth [place] 00 every 8 Medical (eight) Branch hours as needed for Nausea and Vomiting (N/V). TAKE 1 TABLET BY MOUTH EVERY 6 HOURS NEEDED FOR NAUSEA AND VOMITING promethazin 2022-0 Yes [id number] 50mg Take 1 [facility] 50 mg 8-30 tablet by [facility] tablet 00:00: mouth [place] 00 every 8 Medical (eight) Branch hours as needed for Nausea and Vomiting (N/V). TAKE 1 TABLET BY MOUTH EVERY 6 HOURS NEEDED FOR NAUSEA AND VOMITING promethazin 2022-0 Yes [id number] 50mg Take 1 [facility] 50 mg 8-30 tablet by [facility] tablet 00:00: mouth [place] 00 every 8 Medical (eight) Branch hours as needed for Nausea and Vomiting (N/V). TAKE 1 TABLET BY MOUTH EVERY 6 HOURS NEEDED FOR NAUSEA AND VOMITING promethazin 2022-0 Yes [id number] 50mg Take 1 [facility] 50 mg 8-30 tablet by [facility] tablet 00:00: mouth [place] 00 every 8 Medical (eight) Branch hours as needed for Nausea and Vomiting (N/V). TAKE 1 TABLET BY MOUTH EVERY 6 HOURS NEEDED FOR NAUSEA AND VOMITING promethazin 2022-0 Yes [id number] 50mg Take 1 [facility] 50 mg 8-30 tablet by [facility] tablet 00:00: mouth [place] 00 every 8 Medical (eight) Branch hours as needed for Nausea and Vomiting (N/V). TAKE 1 TABLET BY MOUTH EVERY 6 HOURS NEEDED FOR NAUSEA AND VOMITING promethazin 2022-0 Yes [id number] 50mg Take 1 [facility] 50 mg 8-30 tablet by [facility] tablet 00:00: mouth [place] 00 every 8 Medical (eight) Branch hours as needed for Nausea and Vomiting (N/V). TAKE 1 TABLET BY MOUTH EVERY 6 HOURS NEEDED FOR NAUSEA AND VOMITING promethazin 2022-0 Yes [id number] 50mg Take 1 [facility] 50 mg 8-30 tablet by [facility] tablet 00:00: mouth [place] 00 every 8 Medical (eight) Branch hours as needed for Nausea and Vomiting (N/V). TAKE 1 TABLET BY MOUTH EVERY 6 HOURS NEEDED FOR NAUSEA AND VOMITING promethazin 2022-0 Yes [id number] 50mg Take 1 [facility] 50 mg 8-30 tablet by [facility] tablet 00:00: mouth [place] 00 every 8 Medical (eight) Branch hours as needed for Nausea and Vomiting (N/V). TAKE 1 TABLET BY MOUTH EVERY 6 HOURS NEEDED FOR NAUSEA AND VOMITING promethazin 2022-0 Yes [id number] 50mg Take 1 [facility] 50 mg 8-30 tablet by [facility] tablet 00:00: mouth [place] 00 every 8 Medical (eight) Branch hours as needed for Nausea and Vomiting (N/V). TAKE 1 TABLET BY MOUTH EVERY 6 HOURS NEEDED FOR NAUSEA AND VOMITING promethazin 2022-0 Yes [id number] 50mg Take 1 [facility] 50 mg 8-30 tablet by [facility] tablet 00:00: mouth [place] 00 every 8 Medical (eight) Branch hours as needed for Nausea and Vomiting (N/V). TAKE 1 TABLET BY MOUTH EVERY 6 HOURS NEEDED FOR NAUSEA AND VOMITING promethazin 2022-0 Yes [id number] 50mg Take 1 [facility] 50 mg 8-30 tablet by [facility] tablet 00:00: mouth [place] 00 every 8 Medical (eight) Branch hours as needed for Nausea and Vomiting (N/V). TAKE 1 TABLET BY MOUTH EVERY 6 HOURS NEEDED FOR NAUSEA AND VOMITING promethazin 2022-0 Yes [id number] 50mg Take 1 [facility] 50 mg 8-30 tablet by [facility] tablet 00:00: mouth [place] 00 every 8 Medical (eight) Branch hours as needed for Nausea and Vomiting (N/V). TAKE 1 TABLET BY MOUTH EVERY 6 HOURS NEEDED FOR NAUSEA AND VOMITING promethazin 2022-0 Yes [id number] 50mg Take 1 [facility] 50 mg 8-30 tablet by [facility] tablet 00:00: mouth [place] 00 every 8 Medical (eight) Branch hours as needed for Nausea and Vomiting (N/V). TAKE 1 TABLET BY MOUTH EVERY 6 HOURS NEEDED FOR NAUSEA AND VOMITING promethazin 2022-0 Yes [id number] 50mg Take 1 [facility] 50 mg 8-30 tablet by [facility] tablet 00:00: mouth [place] 00 every 8 Medical (eight) Branch hours as needed for Nausea and Vomiting (N/V). TAKE 1 TABLET BY MOUTH EVERY 6 HOURS NEEDED FOR NAUSEA AND VOMITING promethazin 2022-0 Yes [id number] 50mg Take 1 [facility]-30 tablet [facility] tablet 00:00: mouth [place] 00 every 8 [facility] (eight) Branch hours as needed for Nausea and Vomiting (N/V). TAKE 1 TABLET BY MOUTH EVERY 6 HOURS NEEDED FOR NAUSEA AND VOMITING promethazin 2022-0 Yes [id number] 50mg Take 1 [facility] mg 8-30 tablet by [facility] tablet 00:00: mouth [place] 00 every 8 [facility] (eight) Branch hours as needed for Nausea and Vomiting (N/V). TAKE 1 TABLET BY MOUTH EVERY 6 HOURS NEEDED FOR NAUSEA AND VOMITING promethazin 2-0 Yes [id number] 50mg Take 1 [facility] 50 mg 8-30 tablet by [facility] tablet 00:00: mouth [place] 00 every 8 [facility] (eight) Branch hours as needed for Nausea and Vomiting (N/V). TAKE 1 TABLET BY MOUTH EVERY 6 HOURS NEEDED FOR NAUSEA AND VOMITING promethazin 2-0 Yes [id number] 50mg Take 1 [facility] 50 mg 8-30 tablet by [facility] tablet 00:00: mouth [place] 00 every 8 [facility] (eight) Branch hours as needed for Nausea and Vomiting (N/V). TAKE 1 TABLET BY MOUTH EVERY 6 HOURS NEEDED FOR NAUSEA AND VOMITING promethazin 2022-0 Yes [id number] 50mg Take 1 [facility] 50 mg 8-30 tablet by [facility] tablet 00:00: mouth [place] 00 every 8 [facility] (eight) Branch hours as needed for Nausea and Vomiting (N/V). TAKE 1 TABLET BY MOUTH EVERY 6 HOURS NEEDED FOR NAUSEA AND VOMITING promethazin 2022-0 Yes [id number] 50mg Take 1 [facility] 50 mg 8-30 tablet by [facility] tablet 00:00: mouth [place] 00 every 8 [facility] (eight) Branch hours as needed for Nausea and Vomiting (N/V). TAKE 1 TABLET BY MOUTH EVERY 6 HOURS NEEDED FOR NAUSEA AND VOMITING promethazin 2022-0 Yes [id number] 50mg Take 1 [facility] 50 mg 8-30 tablet by [facility] tablet 00:00: mouth [place] 00 every 8 [facility] (eight) Branch hours as needed for Nausea and Vomiting (N/V). TAKE 1 TABLET BY MOUTH EVERY 6 HOURS NEEDED FOR NAUSEA AND VOMITING promethazin 2022-0 Yes [id number] 50mg Take 1 [facility] 50 mg 8-30 tablet by [facility] tablet 00:00: mouth [place] 00 every 8 [facility] (eight) Branch hours as needed for Nausea and Vomiting (N/V). TAKE 1 TABLET BY MOUTH EVERY 6 HOURS NEEDED FOR NAUSEA AND VOMITING promethazin 2022-0 Yes [id number] 50mg Take 1 [facility] 50 mg 8-30 tablet by [facility] tablet 00:00: mouth [place] 00 every 8 [facility] (eight) Branch hours as needed for Nausea and Vomiting (N/V). TAKE 1 TABLET BY MOUTH EVERY 6 HOURS NEEDED FOR NAUSEA AND VOMITING promethazin 2021-0 Yes [id number] 50mg Take 1 [facility] 50 mg 8-30 tablet by [facility] tablet 00:00: mouth [place] 00 every 8 [facility] (eight) Branch hours as needed for Nausea and Vomiting (N/V). TAKE 1 TABLET BY MOUTH EVERY 6 HOURS NEEDED FOR NAUSEA AND VOMITING promethazin 2021-0 Yes [id number] 50mg Take 1 [facility] 50 mg 8-30 tablet by [facility] tablet 00:00: mouth [place] 00 every 8 [facility] (eight) Branch hours as needed for Nausea and Vomiting (N/V). TAKE 1 TABLET BY MOUTH EVERY 6 HOURS NEEDED FOR NAUSEA AND VOMITING promethazin 2021-0 Yes [id number] 50mg Take 1 [facility] 50 mg 8-30 tablet by [facility] tablet 00:00: mouth [place] 00 every 8 [facility] (eight) Branch hours as needed for Nausea and Vomiting (N/V). TAKE 1 TABLET BY MOUTH EVERY 6 HOURS NEEDED FOR NAUSEA AND VOMITING promethazin 2-0 Yes [id number] 50mg Take 1 [facility] 50 mg 8-30 tablet by [facility] tablet 00:00: mouth [place] 00 every 8 [facility] (eight) Branch hours as needed for Nausea and Vomiting (N/V). TAKE 1 TABLET BY MOUTH EVERY 6 HOURS NEEDED FOR NAUSEA AND VOMITING promethazin 2022-0 Yes [id number] 50mg Take 1 [facility] 50 mg 8-30 tablet by [facility] tablet 00:00: mouth [place] 00 every 8 [facility] (eight) Branch hours as needed for Nausea and Vomiting (N/V). TAKE 1 TABLET BY MOUTH EVERY 6 HOURS NEEDED FOR NAUSEA AND VOMITING promethazin 2022-0 Yes [id number] 50mg Take 1 [facility] 50 mg 8-30 tablet by [facility] tablet 00:00: mouth [place] 00 every 8 [facility] (eight) Branch hours as needed for Nausea and Vomiting (N/V). TAKE 1 TABLET BY MOUTH EVERY 6 HOURS NEEDED FOR NAUSEA AND VOMITING promethazin 2022-0 Yes [id number] 50mg Take 1 [facility] 50 mg 8-30 tablet by [facility] tablet 00:00: mouth [place] 00 every 8 [facility] (eight) Branch hours as needed for Nausea and Vomiting (N/V). TAKE 1 TABLET BY MOUTH EVERY 6 HOURS NEEDED FOR NAUSEA AND VOMITING promethazin 2022-0 Yes [id number] 50mg Take 1 [facility] 50 mg 8-30 tablet by [facility] tablet 00:00: mouth [place] 00 every 8 [facility] (eight) Branch hours as needed for Nausea and Vomiting (N/V). TAKE 1 TABLET BY MOUTH EVERY 6 HOURS NEEDED FOR NAUSEA AND VOMITING promethazin 2022-0 Yes [id number] 50mg Take 1 [facility] 50 mg 8-30 tablet by [facility] tablet 00:00: mouth [place] 00 every 8 [facility] (eight) Branch hours as needed for Nausea and Vomiting (N/V). TAKE 1 TABLET BY MOUTH EVERY 6 HOURS NEEDED FOR NAUSEA AND VOMITING promethazin 2022-0 Yes [id number] 50mg Take 1 [facility] 50 mg 8-30 tablet by [facility] tablet 00:00: mouth [place] 00 every 8 [facility] (eight) Branch hours as needed for Nausea and Vomiting (N/V). TAKE 1 TABLET BY MOUTH EVERY 6 HOURS NEEDED FOR NAUSEA AND VOMITING promethazin 2022-0 Yes [id number] 50mg Take 1 [facility] 50 mg 8-30 tablet by [facility] tablet 00:00: mouth [place] 00 every 8 [facility] (eight) Branch hours as needed for Nausea and Vomiting (N/V). TAKE 1 TABLET BY MOUTH EVERY 6 HOURS NEEDED FOR NAUSEA AND VOMITING promethazin 2022-0 Yes [id number] 50mg Take 1 [facility] 50 mg 8-30 tablet by [facility] tablet 00:00: mouth [place] 00 every 8 [facility] (eight) Branch hours as needed for Nausea and Vomiting (N/V). TAKE 1 TABLET BY MOUTH EVERY 6 HOURS NEEDED FOR NAUSEA AND VOMITING promethazin 2022-0 Yes [id number] 50mg Take 1 [facility] 50 mg 8-30 tablet by [facility] tablet 00:00: mouth [place] 00 every 8 [facility] (eight) Branch hours as needed for Nausea and Vomiting (N/V). TAKE 1 TABLET BY MOUTH EVERY 6 HOURS NEEDED FOR NAUSEA AND VOMITING promethazin 2022-0 Yes [id number] 50mg Take 1 [facility] 50 mg 8-30 tablet by [facility] tablet 00:00: mouth [place] 00 every 8 [facility] (eight) Branch hours as needed for Nausea and Vomiting (N/V). TAKE 1 TABLET BY MOUTH EVERY 6 HOURS NEEDED FOR NAUSEA AND VOMITING promethazin 2022-0 Yes [id number] 50mg Take 1 [facility] 50 mg 8-30 tablet by [facility] tablet 00:00: mouth [place] 00 every 8 [facility] (eight) Branch hours as needed for Nausea and Vomiting (N/V). TAKE 1 TABLET BY MOUTH EVERY 6 HOURS NEEDED FOR NAUSEA AND VOMITING promethazin 2022-0 Yes [id number] 50mg Take 1 [facility] 50 mg 8-30 tablet by [facility] tablet 00:00: mouth [place] 00 every 8 [facility] (eight) Branch hours as needed for Nausea and Vomiting (N/V). TAKE 1 TABLET BY MOUTH EVERY 6 HOURS NEEDED FOR NAUSEA AND VOMITING promethazin 2022-0 Yes [id number] 50mg Take 1 [facility] 50 mg 8-30 tablet by [facility] tablet 00:00: mouth [place] 00 every 8 [facility] (eight) Branch hours as needed for Nausea and Vomiting (N/V). TAKE 1 TABLET BY MOUTH EVERY 6 HOURS NEEDED FOR NAUSEA AND VOMITING promethazin 2022-0 Yes [id number] 50mg Take 1 [facility] 50 mg 8-30 tablet by [facility] tablet 00:00: mouth [place] 00 every 8 [facility] (eight) Branch hours as needed for Nausea and Vomiting (N/V). TAKE 1 TABLET BY MOUTH EVERY 6 HOURS NEEDED FOR NAUSEA AND VOMITING promethazin 2022-0 Yes [id number] 50mg Take 1 [facility] 50 mg 8-30 tablet by [facility] tablet 00:00: mouth [place] 00 every 8 [facility] (eight) Branch hours as needed for Nausea and Vomiting (N/V). TAKE 1 TABLET BY MOUTH EVERY 6 HOURS NEEDED FOR NAUSEA AND VOMITING promethazin 2022-0 Yes [id number] 50mg Take 1 [facility] 50 mg 8-30 tablet by [facility] tablet 00:00: mouth [place] 00 every 8 [facility] (eight) Branch hours as needed for Nausea and Vomiting (N/V). TAKE 1 TABLET BY MOUTH EVERY 6 HOURS NEEDED FOR NAUSEA AND VOMITING promethazin 2022-0 Yes [id number] 50mg Take 1 [facility] 50 mg 8-30 tablet by [facility] tablet 00:00: mouth [place] 00 every 8 [facility] (eight) Branch hours as needed for Nausea and Vomiting (N/V). TAKE 1 TABLET BY MOUTH EVERY 6 HOURS NEEDED FOR NAUSEA AND VOMITING promethazin 2022-0 Yes [id number] 50mg Take 1 [facility] 50 mg 8-30 tablet by [facility] tablet 00:00: mouth [place] 00 every 8 [facility] (eight) Branch hours as needed for Nausea and Vomiting (N/V). TAKE 1 TABLET BY MOUTH EVERY 6 HOURS NEEDED FOR NAUSEA AND VOMITING promethazin 2022-0 Yes [id number] 50mg Take 1 [facility] 50 mg 8-30 tablet by [facility] tablet 00:00: mouth [place] 00 every 8 [facility] (eight) Branch hours as needed for Nausea and Vomiting (N/V). TAKE 1 TABLET BY MOUTH EVERY 6 HOURS NEEDED FOR NAUSEA AND VOMITING promethazin 2022-0 Yes [id number] 50mg Take 1 [facility] 50 mg 8-30 tablet by [facility] tablet 00:00: mouth [place] 00 every 8 [facility] (eight) Branch hours as needed for Nausea and Vomiting (N/V). TAKE 1 TABLET BY MOUTH EVERY 6 HOURS NEEDED FOR NAUSEA AND VOMITING promethazin 2022-0 Yes [id number] 50mg Take 1 [facility] 50 mg 8-30 tablet by [facility] tablet 00:00: mouth [place] 00 every 8 [facility] (eight) Branch hours as needed for Nausea and Vomiting (N/V). TAKE 1 TABLET BY MOUTH EVERY 6 HOURS NEEDED FOR NAUSEA AND VOMITING promethazin 2022-0 Yes [id number] 50mg Take 1 [facility] 50 mg 8-30 tablet by [facility] tablet 00:00: mouth [place] 00 every 8 [facility] (eight) Branch hours as needed for Nausea and Vomiting (N/V). TAKE 1 TABLET BY MOUTH EVERY 6 HOURS NEEDED FOR NAUSEA AND VOMITING promethazin 2022-0 Yes [id number] 50mg Take 1 [facility] 50 mg 8-30 tablet by [facility] tablet 00:00: mouth [place] 00 every 8 [facility] (eight) Branch hours as needed for Nausea and Vomiting (N/V). TAKE 1 TABLET BY MOUTH EVERY 6 HOURS NEEDED FOR NAUSEA AND VOMITING promethazin 2022-0 Yes [id number] 50mg Take 1 [facility] 50 mg 8-30 tablet by [facility] tablet 00:00: mouth [place] 00 every 8 [facility] (eight) Branch hours as needed for Nausea and Vomiting (N/V). TAKE 1 TABLET BY MOUTH EVERY 6 HOURS NEEDED FOR NAUSEA AND VOMITING promethazin 2-0 Yes [id number] 50mg Take 1 [facility] 50 mg 8-30 tablet by [facility] tablet 00:00: mouth [place] 00 every 8 [facility] (eight) Branch hours as needed for Nausea and Vomiting (N/V). TAKE 1 TABLET BY MOUTH EVERY 6 HOURS NEEDED FOR NAUSEA AND VOMITING promethazin 2021-0 Yes [id number] 50mg Take 1 [facility] 50 mg 8-30 tablet by [facility] tablet 00:00: mouth [place] 00 every 8 [facility] (eight) Branch hours as needed for Nausea and Vomiting (N/V). TAKE 1 TABLET BY MOUTH EVERY 6 HOURS NEEDED FOR NAUSEA AND VOMITING promethazin 2021-0 Yes [id number] 50mg Take 1 [facility] 50 mg 8-30 tablet by [facility] tablet 00:00: mouth [place] 00 every 8 Medical (eight) Branch hours as needed for Nausea and Vomiting (N/V). TAKE 1 TABLET BY MOUTH EVERY 6 HOURS NEEDED FOR NAUSEA AND VOMITING promethazin 2021-0 Yes [id number] 50mg Take 1 [facility] 50 mg 8-30 tablet by [facility] tablet 00:00: mouth [place] 00 every 8 Medical (eight) Branch hours as needed for Nausea and Vomiting (N/V). TAKE 1 TABLET BY MOUTH EVERY 6 HOURS NEEDED FOR NAUSEA AND VOMITING promethazin 2-0 Yes [id number] 50mg Take 1 [facility] 50 mg 8-30 tablet by [facility] tablet 00:00: mouth [place] 00 every 8 Medical (eight) Branch hours as needed for Nausea and Vomiting (N/V). TAKE 1 TABLET BY MOUTH EVERY 6 HOURS NEEDED FOR NAUSEA AND VOMITING promethazin 2022-0 Yes [id number] 50mg Take 1 [facility] 50 mg 8-30 tablet by [facility] tablet 00:00: mouth [place] 00 every 8 Medical (eight) Branch hours as needed for Nausea and Vomiting (N/V). TAKE 1 TABLET BY MOUTH EVERY 6 HOURS NEEDED FOR NAUSEA AND VOMITING promethazin 2022-0 Yes [id number] 50mg Take 1 [facility] 50 mg 8-30 tablet by [facility] tablet 00:00: mouth [place] 00 every 8 Medical (eight) Branch hours as needed for Nausea and Vomiting (N/V). TAKE 1 TABLET BY MOUTH EVERY 6 HOURS NEEDED FOR NAUSEA AND VOMITING promethazin 2022-0 Yes [id number] 50mg Take 1 [facility] 50 mg 8-30 tablet by [facility] tablet 00:00: mouth [place] 00 every 8 Medical (eight) Branch hours as needed for Nausea and Vomiting (N/V). TAKE 1 TABLET BY MOUTH EVERY 6 HOURS NEEDED FOR NAUSEA AND VOMITING promethazin 2022-0 Yes [id number] 50mg Take 1 [facility] 50 mg 8-30 tablet by [facility] tablet 00:00: mouth [place] 00 every 8 Medical (eight) Branch hours as needed for Nausea and Vomiting (N/V). TAKE 1 TABLET BY MOUTH EVERY 6 HOURS NEEDED FOR NAUSEA AND VOMITING promethazin 2022-0 Yes [id number] 50mg Take 1 [facility] 50 mg 8-30 tablet by [facility] tablet 00:00: mouth [place] 00 every 8 Medical (eight) Branch hours as needed for Nausea and Vomiting (N/V). TAKE 1 TABLET BY MOUTH EVERY 6 HOURS NEEDED FOR NAUSEA AND VOMITING promethazin 2022-0 Yes [id number] 50mg Take 1 [facility] 50 mg 8-30 tablet by [facility] tablet 00:00: mouth [place] 00 every 8 Medical (eight) Branch hours as needed for Nausea and Vomiting (N/V). TAKE 1 TABLET BY MOUTH EVERY 6 HOURS NEEDED FOR NAUSEA AND VOMITING promethazin 2022-0 Yes [id number] 50mg Take 1 [facility] 50 mg 8-30 tablet by [facility] tablet 00:00: mouth [place] 00 every 8 Medical (eight) Branch hours as needed for Nausea and Vomiting (N/V). TAKE 1 TABLET BY MOUTH EVERY 6 HOURS NEEDED FOR NAUSEA AND VOMITING promethazin 2022-0 Yes [id number] 50mg Take 1 [facility] 50 mg 8-30 tablet by [facility] tablet 00:00: mouth [place] 00 every 8 Medical (eight) Branch hours as needed for Nausea and Vomiting (N/V). TAKE 1 TABLET BY MOUTH EVERY 6 HOURS NEEDED FOR NAUSEA AND VOMITING promethazin 2022-0 Yes [id number] 50mg Take 1 [facility] 50 mg 8-30 tablet by [facility] tablet 00:00: mouth [place] 00 every 8 Medical (eight) Branch hours as needed for Nausea and Vomiting (N/V). TAKE 1 TABLET BY MOUTH EVERY 6 HOURS NEEDED FOR NAUSEA AND VOMITING promethazin 2022-0 Yes [id number] 50mg Take 1 [facility] 50 mg 8-30 tablet by [facility] tablet 00:00: mouth [place] 00 every 8 Medical (eight) Branch hours as needed for Nausea and Vomiting (N/V). TAKE 1 TABLET BY MOUTH EVERY 6 HOURS NEEDED FOR NAUSEA AND VOMITING promethazin 2022-0 Yes [id number] 50mg Take 1 [facility] 50 mg 8-30 tablet by [facility] tablet 00:00: mouth [place] 00 every 8 Medical (eight) Branch hours as needed for Nausea and Vomiting (N/V). TAKE 1 TABLET BY MOUTH EVERY 6 HOURS NEEDED FOR NAUSEA AND VOMITING promethazin 2022-0 Yes [id number] 50mg Take 1 [facility] 50 mg 8-30 tablet by [facility] tablet 00:00: mouth [place] 00 every 8 Medical (eight) Branch hours as needed for Nausea and Vomiting (N/V). TAKE 1 TABLET BY MOUTH EVERY 6 HOURS NEEDED FOR NAUSEA AND VOMITING promethazin 2022-0 Yes [id number] 50mg Take 1 [facility] 50 mg 8-30 tablet by [facility] tablet 00:00: mouth [place] 00 every 8 Medical (eight) Branch hours as needed for Nausea and Vomiting (N/V). TAKE 1 TABLET BY MOUTH EVERY 6 HOURS NEEDED FOR NAUSEA AND VOMITING promethazin 2022-0 Yes [id number] 50mg Take 1 [facility] 50 mg 8-30 tablet by [facility] tablet 00:00: mouth [place] 00 every 8 Medical (eight) Branch hours as needed for Nausea and Vomiting (N/V). TAKE 1 TABLET BY MOUTH EVERY 6 HOURS NEEDED FOR NAUSEA AND VOMITING promethazin 2022-0 Yes [id number] 50mg Take 1 [facility] 50 mg 8-30 tablet by [facility] tablet 00:00: mouth [place] 00 every 8 Medical (eight) Branch hours as needed for Nausea and Vomiting (N/V). TAKE 1 TABLET BY MOUTH EVERY 6 HOURS NEEDED FOR NAUSEA AND VOMITING promethazin 2022-0 Yes [id number] 50mg Take 1 [facility] 50 mg 8-30 tablet by [facility] tablet 00:00: mouth [place] 00 every 8 Medical (eight) Branch hours as needed for Nausea and Vomiting (N/V). TAKE 1 TABLET BY MOUTH EVERY 6 HOURS NEEDED FOR NAUSEA AND VOMITING promethazin 2022-0 Yes [id number] 50mg Take 1 [facility] 50 mg 8-30 tablet by [facility] tablet 00:00: mouth [place] 00 every 8 Medical (eight) Branch hours as needed for Nausea and Vomiting (N/V). TAKE 1 TABLET BY MOUTH EVERY 6 HOURS NEEDED FOR NAUSEA AND VOMITING promethazin 2022-0 Yes [id number] 50mg Take 1 [facility] 50 mg 8-30 tablet by [facility] tablet 00:00: mouth [place] 00 every 8 Medical (eight) Branch hours as needed for Nausea and Vomiting (N/V). TAKE 1 TABLET BY MOUTH EVERY 6 HOURS NEEDED FOR NAUSEA AND VOMITING promethazin 2022-0 Yes [id number] 50mg Take 1 [facility] 50 mg 8-30 tablet by [facility] tablet 00:00: mouth [place] 00 every 8 Medical (eight) Branch hours as needed for Nausea and Vomiting (N/V). TAKE 1 TABLET BY MOUTH EVERY 6 HOURS NEEDED FOR NAUSEA AND VOMITING promethazin 2-0 Yes [id number] 50mg Take 1 [facility] 50 mg 8-30 tablet by [facility] tablet 00:00: mouth [place] 00 every 8 Medical (eight) Branch hours as needed for Nausea and Vomiting (N/V). TAKE 1 TABLET BY MOUTH EVERY 6 HOURS NEEDED FOR NAUSEA AND VOMITING promethazin 2022-0 Yes [id number] 50mg Take 1 [facility] 50 mg 8-30 tablet by [facility] tablet 00:00: mouth [place] 00 every 8 Medical (eight) Branch hours as needed for Nausea and Vomiting (N/V). TAKE 1 TABLET BY MOUTH EVERY 6 HOURS NEEDED FOR NAUSEA AND VOMITING promethazin 2022-0 Yes [id number] 50mg Take 1 [facility] 50 mg 8-30 tablet by [facility] tablet 00:00: mouth [place] 00 every 8 Medical (eight) Branch hours as needed for Nausea and Vomiting (N/V). TAKE 1 TABLET BY MOUTH EVERY 6 HOURS NEEDED FOR NAUSEA AND VOMITING promethazin 2022-0 Yes [id number] 50mg Take 1 [facility] 50 mg 8-30 tablet by [facility] tablet 00:00: mouth [place] 00 every 8 Medical (eight) Branch hours as needed for Nausea and Vomiting (N/V). TAKE 1 TABLET BY MOUTH EVERY 6 HOURS NEEDED FOR NAUSEA AND VOMITING promethazin 2022-0 Yes [id number] 50mg Take 1 [facility] 50 mg 8-30 tablet by [facility] tablet 00:00: mouth [place] 00 every 8 Medical (eight) Branch hours as needed for Nausea and Vomiting (N/V). TAKE 1 TABLET BY MOUTH EVERY 6 HOURS NEEDED FOR NAUSEA AND VOMITING promethazin 2-0 Yes [id number] 50mg Take 1 [facility] 50 mg 8-30 tablet by [facility] tablet 00:00: mouth [place] 00 every 8 Medical (eight) Branch hours as needed for Nausea and Vomiting (N/V). TAKE 1 TABLET BY MOUTH EVERY 6 HOURS NEEDED FOR NAUSEA AND VOMITING promethazin 2-0 Yes [id number] 50mg Take 1 [facility] 50 mg 8-30 tablet by [facility] tablet 00:00: mouth [place] 00 every 8 Medical (eight) Branch hours as needed for Nausea and Vomiting (N/V). TAKE 1 TABLET BY MOUTH EVERY 6 HOURS NEEDED FOR NAUSEA AND VOMITING promethazin 2-0 Yes [id number] 50mg Take 1 [facility] 50 mg 8-30 tablet by [facility] tablet 00:00: mouth [place] 00 every 8 Medical (eight) Branch hours as needed for Nausea and Vomiting (N/V). TAKE 1 TABLET BY MOUTH EVERY 6 HOURS NEEDED FOR NAUSEA AND VOMITING promethazin 2-0 Yes [id number] 50mg Take 1 [facility] 50 mg 8-30 tablet by [facility] tablet 00:00: mouth [place] 00 every 8 Medical (eight) Branch hours as needed for Nausea and Vomiting (N/V). TAKE 1 TABLET BY MOUTH EVERY 6 HOURS NEEDED FOR NAUSEA AND VOMITING promethazin 2-0 Yes [id number] 50mg Take 1 [facility] 50 mg 8-30 tablet by [facility] tablet 00:00: mouth [place] 00 every 8 Medical (eight) Branch hours as needed for Nausea and Vomiting (N/V). TAKE 1 TABLET BY MOUTH EVERY 6 HOURS NEEDED FOR NAUSEA AND VOMITING promethazin 2022-0 Yes [id number] 50mg Take 1 [facility] 50 mg 8-30 tablet by [facility] tablet 00:00: mouth [place] 00 every 8 Medical (eight) Branch hours as needed for Nausea and Vomiting (N/V). TAKE 1 TABLET BY MOUTH EVERY 6 HOURS NEEDED FOR NAUSEA AND VOMITING promethazin 2022-0 Yes [id number] 50mg Take 1 [facility] 50 mg 8-30 tablet by [facility] tablet 00:00: mouth [place] 00 every 8 Medical (eight) Branch hours as needed for Nausea and Vomiting (N/V). TAKE 1 TABLET BY MOUTH EVERY 6 HOURS NEEDED FOR NAUSEA AND VOMITING promethazin 2022-0 Yes [id number] 50mg Take 1 [facility] 50 mg 8-30 tablet by [facility] tablet 00:00: mouth [place] 00 every 8 Medical (eight) Branch hours as needed for Nausea and Vomiting (N/V). TAKE 1 TABLET BY MOUTH EVERY 6 HOURS NEEDED FOR NAUSEA AND VOMITING promethazin 2022-0 Yes [id number] 50mg Take 1 [facility] 50 mg 8-30 tablet by [facility] tablet 00:00: mouth [place] 00 every 8 Medical (eight) Branch hours as needed for Nausea and Vomiting (N/V). TAKE 1 TABLET BY MOUTH EVERY 6 HOURS NEEDED FOR NAUSEA AND VOMITING promethazin 2022-0 Yes [id number] 50mg Take 1 [facility] 50 mg 8-30 tablet by [facility] tablet 00:00: mouth [place] 00 every 8 Medical (eight) Branch hours as needed for Nausea and Vomiting (N/V). TAKE 1 TABLET BY MOUTH EVERY 6 HOURS NEEDED FOR NAUSEA AND VOMITING promethazin 2022-0 Yes [id number] 50mg Take 1 [facility] 50 mg 8-30 tablet by [facility] tablet 00:00: mouth [place] 00 every 8 Medical (eight) Branch hours as needed for Nausea and Vomiting (N/V). TAKE 1 TABLET BY MOUTH EVERY 6 HOURS NEEDED FOR NAUSEA AND VOMITING promethazin 2022-0 Yes [id number] 50mg Take 1 [facility] 50 mg 8-30 tablet by [facility] tablet 00:00: mouth [place] 00 every 8 Medical (eight) Branch hours as needed for Nausea and Vomiting (N/V). TAKE 1 TABLET BY MOUTH EVERY 6 HOURS NEEDED FOR NAUSEA AND VOMITING promethazin 2022-0 Yes [id number] 50mg Take 1 [facility] 50 mg 8-30 tablet by [facility] tablet 00:00: mouth [place] 00 every 8 Medical (eight) Branch hours as needed for Nausea and Vomiting (N/V). TAKE 1 TABLET BY MOUTH EVERY 6 HOURS NEEDED FOR NAUSEA AND VOMITING promethazin 2022-0 Yes [id number] 50mg Take 1 [facility] 50 mg 8-30 tablet by [facility] tablet 00:00: mouth [place] 00 every 8 Medical (eight) Branch hours as needed for Nausea and Vomiting (N/V). TAKE 1 TABLET BY MOUTH EVERY 6 HOURS NEEDED FOR NAUSEA AND VOMITING promethazin 2022-0 Yes [id number] 50mg Take 1 [facility] 50 mg 8-30 tablet by [facility] tablet 00:00: mouth [place] 00 every 8 Medical (eight) Branch hours as needed for Nausea and Vomiting (N/V). TAKE 1 TABLET BY MOUTH EVERY 6 HOURS NEEDED FOR NAUSEA AND VOMITING promethazin 2022-0 Yes [id number] 50mg Take 1 [facility] 50 mg 8-30 tablet by [facility] tablet 00:00: mouth [place] 00 every 8 Medical (eight) Branch hours as needed for Nausea and Vomiting (N/V). TAKE 1 TABLET BY MOUTH EVERY 6 HOURS NEEDED FOR NAUSEA AND VOMITING promethazin 2022-0 Yes [id number] 50mg Take 1 [facility] 50 mg 8-30 tablet by [facility] tablet 00:00: mouth [place] 00 every 8 Medical (eight) Branch hours as needed for Nausea and Vomiting (N/V). TAKE 1 TABLET BY MOUTH EVERY 6 HOURS NEEDED FOR NAUSEA AND VOMITING promethazin 2022-0 Yes [id number] 50mg Take 1 [facility] 50 mg 8-30 tablet by [facility] tablet 00:00: mouth [place] 00 every 8 Medical (eight) Branch hours as needed for Nausea and Vomiting (N/V). TAKE 1 TABLET BY MOUTH EVERY 6 HOURS NEEDED FOR NAUSEA AND VOMITING promethazin 2022-0 Yes [id number] 50mg Take 1 [facility] 50 mg 8-30 tablet by [facility] of tablet 00:00: mouth [place] 00 every 8 Medical (eight) Branch hours as needed for Nausea and Vomiting (N/V). TAKE 1 TABLET BY MOUTH EVERY 6 HOURS NEEDED FOR NAUSEA AND VOMITING promethazin 2022-0 Yes [id number] 50mg Take 1 [facility] 50 mg 8-30 tablet by [facility] of tablet 00:00: mouth [place] 00 every 8 Medical (eight) Branch hours as needed for Nausea and Vomiting (N/V). TAKE 1 TABLET BY MOUTH EVERY 6 HOURS NEEDED FOR NAUSEA AND VOMITING nadoloL 40 2021-0 2- No [id number] 40mg Take 1 [facility] mg tablet 8-30 10-12 tablet by [facility] of 00:00: 00:00 mouth in [place] 00 :00 the Medical morning. Branch nadoloL 40 2021-0 2- No [id number] 40mg Take 1 [facility] mg tablet 8-30 10-12 tablet by [facility] of 00:00: 00:00 mouth in [place] 00 :00 the Medical morning. Branch nadoloL 40 2021-0 2- No [id number] 40mg Take 1 [facility] mg tablet 8-30 10-12 tablet by [facility] of 00:00: 00:00 mouth in [place] 00 :00 the Medical morning. Branch nadoloL 40 2021-0 2021- No [id number] 40mg Take 1 [facility] mg tablet 8-30 10-12 tablet by [facility] of 00:00: 00:00 mouth in [place] 00 :00 the Medical morning. Branch nadoloL 40 2021-0 2- No [id number] 40mg Take 1 [facility] mg tablet 8-30 10-12 tablet by [facility] of 00:00: 00:00 mouth in [place] 00 :00 the Medical morning. Branch nadoloL 40 2021-0 2- No [id number] 40mg Take 1 [facility] mg tablet 8-30 10-12 tablet by [facility] of 00:00: 00:00 mouth in [place] 00 :00 the Medical morning. Branch nadoloL 40 2021-0 2- No [id number] 40mg Take 1 [facility] mg tablet 8-30 10-12 tablet by [facility] of 00:00: 00:00 mouth in [place] 00 :00 the Medical morning. Branch nadoloL 40 2021-0 2- No [id number] 40mg Take 1 [facility] mg tablet 8-30 10-12 tablet by [facility] of 00:00: 00:00 mouth in [place] 00 :00 the Medical morning. Branch nadoloL 40 2-0 2- No [id number] 40mg Take 1 [facility] mg tablet 8-30 10-12 tablet by [facility] of 00:00: 00:00 mouth in [place] 00 :00 the Medical morning. Branch nadoloL 40 2-0 2- No [id number] 40mg Take 1 [facility] mg tablet 8-30 10-12 tablet by [facility] of 00:00: 00:00 mouth in [place] 00 :00 the Medical morning. Branch nadoloL 40 2021-0 2- No [id number] 40mg Take 1 [facility] mg tablet 8-30 10-12 tablet by [facility] of 00:00: 00:00 mouth in [place] 00 :00 the Medical morning. Branch nadoloL 40 2021-0 2- No [id number] 40mg Take 1 [facility] mg tablet 8-30 10-12 tablet by [facility] of 00:00: 00:00 mouth in [place] 00 :00 the [facility] morning. Branch zaleplon 0 Yes TAKE 1 [facility]ava (SONATA) 10 8-17 CAP[facility] capsule 00:00: MOUTH AT of 00 BEDTIME Medicin e zaleplon 0 Yes TAKE 1 [facility] (SONATA) 10 8-17 CAP[facility]LE [facility] capsule 00:00: MOUTH AT of 00 BEDTIME Medicin e tiZANidine 2021-0 Yes [id number] 4mg Take 1 [facility] 4 mg tablet 8-17 tablet by [facility] of 00:00: mouth [place] 00 every 8 Medical (eight) Branch hours as needed (severe muscle spams). tiZANidine 2021-0 Yes [id number] 4mg Take 1 [facility] 4 mg tablet 8-17 tablet by [facility] of 00:00: mouth [place] 00 every 8 Medical (eight) Branch hours as needed (severe muscle spams). tiZANidine 2021-0 Yes [id number] 4mg Take 1 [facility] 4 mg tablet 8-17 tablet by [facility] 00:00: mouth [place] 00 every 8 Medical (eight) Branch hours as needed (severe muscle spams). tiZANidine 2021-0 Yes [id number] 4mg Take 1 [facility] 4 mg tablet 8-17 tablet by [facility] of 00:00: mouth [place] 00 every 8 Medical (eight) Branch hours as needed (severe muscle spams). tiZANidine 2021-0 Yes [id number] 4mg Take 1 [facility] 4 mg tablet 8-17 tablet by [facility] of 00:00: mouth [place] 00 every 8 Medical (eight) Branch hours as needed (severe muscle spams). tiZANidine 2021-0 Yes [id number] 4mg Take 1 [facility] 4 mg tablet 8-17 tablet by [facility] of 00:00: mouth [place] 00 every 8 Medical (eight) Branch hours as needed (severe muscle spams). tiZANidine 2-0 Yes [id number] 4mg Take 1 [facility] 4 mg tablet 8-17 tablet by [facility] of 00:00: mouth [place] 00 every 8 Medical (eight) Branch hours as needed (severe muscle spams). tiZANidine 2-0 Yes [id number] 4mg Take 1 [facility] 4 mg tablet 8-17 tablet by [facility] 00:00: mouth [place] 00 every 8 Medical (eight) Branch hours as needed (severe muscle spams). tiZANidine 2-0 Yes [id number] 4mg Take 1 [facility] 4 mg tablet 8-17 tablet by [facility] 00:00: mouth [place] 00 every 8 Medical (eight) Branch hours as needed (severe muscle spams). tiZANidine 2-0 Yes [id number] 4mg Take 1 [facility] 4 mg tablet 8-17 tablet by [facility] 00:00: mouth [place] 00 every 8 Medical (eight) Branch hours as needed (severe muscle spams). tiZANidine 2-0 Yes [id number] 4mg Take 1 [facility] 4 mg tablet 8-17 tablet by [facility] 00:00: mouth [place] 00 every 8 Medical (eight) Branch hours as needed (severe muscle spams). tiZANidine 2-0 Yes [id number] 4mg Take 1 [facility] 4 mg tablet 8-17 tablet by [facility] 00:00: mouth [place] 00 every 8 Medical (eight) Branch hours as needed (severe muscle spams). tiZANidine 2-0 Yes [id number] 4mg Take 1 [facility] 4 mg tablet 8-17 tablet by [facility] 00:00: mouth [place] 00 every 8 Medical (eight) Branch hours as needed (severe muscle spams). tiZANidine 2022-0 Yes [id number] 4mg Take 1 [facility] 4 mg tablet 8-17 tablet by [facility] 00:00: mouth [place] 00 every 8 Medical (eight) Branch hours as needed (severe muscle spams). tiZANidine 2022-0 Yes [id number] 4mg Take 1 [facility] 4 mg tablet 8-17 tablet by [facility] 00:00: mouth [place] 00 every 8 Medical (eight) Branch hours as needed (severe muscle spams). tiZANidine 2022-0 Yes [id number] 4mg Take 1 [facility] 4 mg tablet 8-17 tablet by [facility] 00:00: mouth [place] 00 every 8 Medical (eight) Branch hours as needed (severe muscle spams). tiZANidine 2022-0 Yes [id number] 4mg Take 1 [facility] 4 mg tablet 8-17 tablet by [facility] 00:00: mouth [place] 00 every 8 Medical (eight) Branch hours as needed (severe muscle spams). tiZANidine 2022-0 Yes [id number] 4mg Take 1 [facility] 4 mg tablet 8-17 tablet by [facility] 00:00: mouth [place] 00 every 8 Medical (eight) Branch hours as needed (severe muscle spams). tiZANidine 2-0 Yes [id number] 4mg Take 1 [facility] 4 mg tablet 8-17 tablet by [facility] 00:00: mouth [place] 00 every 8 Medical (eight) Branch hours as needed (severe muscle spams). tiZANidine 2-0 Yes [id number] 4mg Take 1 [facility] 4 mg tablet 8-17 tablet by [facility] 00:00: mouth [place] 00 every 8 Medical (eight) Branch hours as needed (severe muscle spams). tiZANidine 2-0 Yes [id number] 4mg Take 1 [facility] 4 mg tablet 8-17 tablet by [facility] 00:00: mouth [place] 00 every 8 Medical (eight) Branch hours as needed (severe muscle spams). tiZANidine 2-0 Yes [id number] 4mg Take 1 [facility] 4 mg tablet 8-17 tablet by [facility] 00:00: mouth [place] 00 every 8 Medical (eight) Branch hours as needed (severe muscle spams). tiZANidine 2022-0 Yes [id number] 4mg Take 1 [facility] 4 mg tablet 8-17 tablet by [facility] 00:00: mouth [place] 00 every 8 Medical (eight) Branch hours as needed (severe muscle spams). tiZANidine 2022-0 Yes [id number] 4mg Take 1 [facility] 4 mg tablet 8-17 tablet by [facility] 00:00: mouth [place] 00 every 8 Medical (eight) Branch hours as needed (severe muscle spams). tiZANidine 2-0 Yes [id number] 4mg Take 1 [facility] 4 mg tablet 8-17 tablet by [facility] 00:00: mouth [place] 00 every 8 Medical (eight) Branch hours as needed (severe muscle spams). tiZANidine 2-0 Yes [id number] 4mg Take 1 [facility] 4 mg tablet 8-17 tablet by [facility] 00:00: mouth [place] 00 every 8 Medical (eight) Branch hours as needed (severe muscle spams). tiZANidine 2-0 Yes [id number] 4mg Take 1 [facility] 4 mg tablet 8-17 tablet by [facility] 00:00: mouth [place] 00 every 8 Medical (eight) Branch hours as needed (severe muscle spams). tiZANidine 2-0 Yes [id number] 4mg Take 1 [facility] 4 mg tablet 8-17 tablet by [facility] 00:00: mouth [place] 00 every 8 Medical (eight) Branch hours as needed (severe muscle spams). tiZANidine 2-0 Yes [id number] 4mg Take 1 [facility] 4 mg tablet 8-17 tablet by [facility] 00:00: mouth [place] 00 every 8 Medical (eight) Branch hours as needed (severe muscle spams). tiZANidine 2-0 Yes [id number] 4mg Take 1 [facility] 4 mg tablet 8-17 tablet by [facility] 00:00: mouth [place] 00 every 8 Medical (eight) Branch hours as needed (severe muscle spams). tiZANidine 2-0 Yes [id number] 4mg Take 1 [facility] 4 mg tablet 8-17 tablet by [facility] 00:00: mouth [place] 00 every 8 Medical (eight) Branch hours as needed (severe muscle spams). tiZANidine 2022-0 Yes [id number] 4mg Take 1 [facility] 4 mg tablet 8-17 tablet by [facility] 00:00: mouth [place] 00 every 8 Medical (eight) Branch hours as needed (severe muscle spams). tiZANidine 2-0 Yes [id number] 4mg Take 1 [facility] 4 mg tablet 8-17 tablet by [facility] 00:00: mouth [place] 00 every 8 Medical (eight) Branch hours as needed (severe muscle spams). tiZANidine 2022-0 Yes [id number] 4mg Take 1 [facility] 4 mg tablet 8-17 tablet by [facility] 00:00: mouth [place] 00 every 8 Medical (eight) Branch hours as needed (severe muscle spams). tiZANidine 2-0 Yes [id number] 4mg Take 1 [facility] 4 mg tablet 8-17 tablet by [facility] 00:00: mouth [place] 00 every 8 Medical (eight) Branch hours as needed (severe muscle spams). tiZANidine 2-0 Yes [id number] 4mg Take 1 [facility] 4 mg tablet 8-17 tablet by [facility] 00:00: mouth [place] 00 every 8 Medical (eight) Branch hours as needed (severe muscle spams). tiZANidine 2-0 Yes [id number] 4mg Take 1 [facility] 4 mg tablet 8-17 tablet by [facility] 00:00: mouth [place] 00 every 8 Medical (eight) Branch hours as needed (severe muscle spams). tiZANidine 2-0 Yes [id number] 4mg Take 1 [facility] 4 mg tablet 8-17 tablet by [facility] 00:00: mouth [place] 00 every 8 Medical (eight) Branch hours as needed (severe muscle spams). tiZANidine 2-0 Yes [id number] 4mg Take 1 [facility] 4 mg tablet 8-17 tablet by [facility] 00:00: mouth [place] 00 every 8 Medical (eight) Branch hours as needed (severe muscle spams). tiZANidine 2-0 Yes [id number] 4mg Take 1 [facility] 4 mg tablet 8-17 tablet by [facility] 00:00: mouth [place] 00 every 8 Medical (eight) Branch hours as needed (severe muscle spams). tiZANidine 2022-0 Yes [id number] 4mg Take 1 [facility] 4 mg tablet 8-17 tablet by [facility] 00:00: mouth [place] 00 every 8 Medical (eight) Branch hours as needed (severe muscle spams). tiZANidine 2022-0 Yes [id number] 4mg Take 1 [facility] 4 mg tablet 8-17 tablet by [facility] 00:00: mouth [place] 00 every 8 Medical (eight) Branch hours as needed (severe muscle spams). tiZANidine 2022-0 Yes [id number] 4mg Take 1 [facility] 4 mg tablet 8-17 tablet by [facility] 00:00: mouth [place] 00 every 8 Medical (eight) Branch hours as needed (severe muscle spams). tiZANidine 2-0 Yes [id number] 4mg Take 1 [facility] 4 mg tablet 8-17 tablet by [facility] 00:00: mouth [place] 00 every 8 Medical (eight) Branch hours as needed (severe muscle spams). tiZANidine 2-0 Yes [id number] 4mg Take 1 [facility] 4 mg tablet 8-17 tablet by [facility] 00:00: mouth [place] 00 every 8 Medical (eight) Branch hours as needed (severe muscle spams). tiZANidine 2-0 Yes [id number] 4mg Take 1 [facility] 4 mg tablet 8-17 tablet by [facility] 00:00: mouth [place] 00 every 8 Medical (eight) Branch hours as needed (severe muscle spams). tiZANidine 2-0 Yes [id number] 4mg Take 1 [facility] 4 mg tablet 8-17 tablet by [facility] 00:00: mouth [place] 00 every 8 Medical (eight) Branch hours as needed (severe muscle spams). tiZANidine 2-0 Yes [id number] 4mg Take 1 [facility] 4 mg tablet 8-17 tablet by [facility] 00:00: mouth [place] 00 every 8 Medical (eight) Branch hours as needed (severe muscle spams). tiZANidine 2-0 Yes [id number] 4mg Take 1 [facility] 4 mg tablet 8-17 tablet by [facility] 00:00: mouth [place] 00 every 8 Medical (eight) Branch hours as needed (severe muscle spams). tiZANidine 2-0 Yes [id number] 4mg Take 1 [facility] 4 mg tablet 8-17 tablet by [facility] 00:00: mouth [place] 00 every 8 Medical (eight) Branch hours as needed (severe muscle spams). tiZANidine 2022-0 Yes [id number] 4mg Take 1 [facility] 4 mg tablet 8-17 tablet by [facility] 00:00: mouth [place] 00 every 8 Medical (eight) Branch hours as needed (severe muscle spams). tiZANidine 2022-0 Yes [id number] 4mg Take 1 [facility] 4 mg tablet 8-17 tablet by [facility] 00:00: mouth [place] 00 every 8 Medical (eight) Branch hours as needed (severe muscle spams). tiZANidine 2022-0 Yes [id number] 4mg Take 1 [facility] 4 mg tablet 8-17 tablet by [facility] 00:00: mouth [place] 00 every 8 Medical (eight) Branch hours as needed (severe muscle spams). tiZANidine 2022-0 Yes [id number] 4mg Take 1 [facility] 4 mg tablet 8-17 tablet by [facility] 00:00: mouth [place] 00 every 8 Medical (eight) Branch hours as needed (severe muscle spams). tiZANidine 2022-0 Yes [id number] 4mg Take 1 [facility] 4 mg tablet 8-17 tablet by [facility] 00:00: mouth [place] 00 every 8 Medical (eight) Branch hours as needed (severe muscle spams). tiZANidine 2-0 Yes [id number] 4mg Take 1 [facility] 4 mg tablet 8-17 tablet by [facility] 00:00: mouth [place] 00 every 8 Medical (eight) Branch hours as needed (severe muscle spams). tiZANidine 2-0 Yes [id number] 4mg Take 1 [facility] 4 mg tablet 8-17 tablet by [facility] 00:00: mouth [place] 00 every 8 Medical (eight) Branch hours as needed (severe muscle spams). tiZANidine 2-0 Yes [id number] 4mg Take 1 [facility] 4 mg tablet 8-17 tablet by [facility] 00:00: mouth [place] 00 every 8 Medical (eight) Branch hours as needed (severe muscle spams). tiZANidine 2-0 Yes [id number] 4mg Take 1 [facility] 4 mg tablet 8-17 tablet by [facility] 00:00: mouth [place] 00 every 8 Medical (eight) Branch hours as needed (severe muscle spams). tiZANidine 2022-0 Yes [id number] 4mg Take 1 [facility] 4 mg tablet 8-17 tablet by [facility] 00:00: mouth [place] 00 every 8 Medical (eight) Branch hours as needed (severe muscle spams). tiZANidine 2022-0 Yes [id number] 4mg Take 1 [facility] 4 mg tablet 8-17 tablet by [facility] of 00:00: mouth [place] 00 every 8 Medical (eight) Branch hours as needed (severe muscle spams). tiZANidine 2022-0 Yes [id number] 4mg Take 1 [facility] 4 mg tablet 8-17 tablet by [facility] 00:00: mouth [place] 00 every 8 Medical (eight) Branch hours as needed (severe muscle spams). tiZANidine 2-0 Yes [id number] 4mg Take 1 [facility] 4 mg tablet 8-17 tablet by [facility] of 00:00: mouth [place] 00 every 8 Medical (eight) Branch hours as needed (severe muscle spams). tiZANidine 2-0 Yes [id number] 4mg Take 1 [facility] 4 mg tablet 8-17 tablet by [facility] of 00:00: mouth [place] 00 every 8 Medical (eight) Branch hours as needed (severe muscle spams). tiZANidine 2-0 Yes [id number] 4mg Take 1 [facility] 4 mg tablet 8-17 tablet by [facility] of 00:00: mouth [place] 00 every 8 Medical (eight) Branch hours as needed (severe muscle spams). tiZANidine 2-0 Yes [id number] 4mg Take 1 [facility] 4 mg tablet 8-17 tablet by [facility] of 00:00: mouth [place] 00 every 8 Medical (eight) Branch hours as needed (severe muscle spams). tiZANidine 2-0 Yes [id number] 4mg Take 1 [facility] 4 mg tablet 8-17 tablet by [facility] of 00:00: mouth [place] 00 every 8 Medical (eight) Branch hours as needed (severe muscle spams). tiZANidine 2-0 Yes [id number] 4mg Take 1 [facility] 4 mg tablet 8-17 tablet by [facility] of 00:00: mouth [place] 00 every 8 Medical (eight) Branch hours as needed (severe muscle spams). tiZANidine 2022-0 Yes [id number] 4mg Take 1 [facility] 4 mg tablet 8-17 tablet by [facility] of 00:00: mouth [place] 00 every 8 Medical (eight) Branch hours as needed (severe muscle spams). tiZANidine 2022-0 Yes [id number] 4mg Take 1 [facility] 4 mg tablet 8-17 tablet by [facility] of 00:00: mouth [place] 00 every 8 Medical (eight) Branch hours as needed (severe muscle spams). tiZANidine 2022-0 Yes [id number] 4mg Take 1 [facility] 4 mg tablet 8-17 tablet by [facility] of 00:00: mouth [place] 00 every 8 Medical (eight) Branch hours as needed (severe muscle spams). tiZANidine 2022-0 Yes [id number] 4mg Take 1 [facility] 4 mg tablet 8-17 tablet by [facility] of 00:00: mouth [place] 00 every 8 Medical (eight) Branch hours as needed (severe muscle spams). tiZANidine 2022-0 Yes [id number] 4mg Take 1 [facility] 4 mg tablet 8-17 tablet by [facility] of 00:00: mouth [place] 00 every 8 Medical (eight) Branch hours as needed (severe muscle spams). tiZANidine 2022-0 Yes [id number] 4mg Take 1 [facility] 4 mg tablet 8-17 tablet by [facility] of 00:00: mouth [place] 00 every 8 Medical (eight) Branch hours as needed (severe muscle spams). tiZANidine 2-0 Yes [id number] 4mg Take 1 [facility] 4 mg tablet 8-17 tablet by [facility] of 00:00: mouth [place] 00 every 8 Medical (eight) Branch hours as needed (severe muscle spams). tiZANidine 2-0 Yes [id number] 4mg Take 1 [facility] 4 mg tablet 8-17 tablet by [facility] 00:00: mouth [place] 00 every 8 Medical (eight) Branch hours as needed (severe muscle spams). tiZANidine 2-0 Yes [id number] 4mg Take 1 [facility] 4 mg tablet 8-17 tablet by [facility] of 00:00: mouth [place] 00 every 8 Medical (eight) Branch hours as needed (severe muscle spams). tiZANidine 2-0 Yes [id number] 4mg Take 1 [facility] 4 mg tablet 8-17 tablet by [facility] of 00:00: mouth [place] 00 every 8 Medical (eight) Branch hours as needed (severe muscle spams). tiZANidine 2022-0 Yes [id number] 4mg Take 1 [facility] 4 mg tablet 8-17 tablet by [facility] of 00:00: mouth [place] 00 every 8 Medical (eight) Branch hours as needed (severe muscle spams). tiZANidine 2022-0 Yes [id number] 4mg Take 1 [facility] 4 mg tablet 8-17 tablet by [facility] of 00:00: mouth [place] 00 every 8 Medical (eight) Branch hours as needed (severe muscle spams). tiZANidine 2022-0 Yes [id number] 4mg Take 1 [facility] 4 mg tablet 8-17 tablet by [facility] of 00:00: mouth [place] 00 every 8 Medical (eight) Branch hours as needed (severe muscle spams). tiZANidine 2-0 Yes [id number] 4mg Take 1 [facility] 4 mg tablet 8-17 tablet by [facility] of 00:00: mouth [place] 00 every 8 Medical (eight) Branch hours as needed (severe muscle spams). tiZANidine 2022-0 Yes [id number] 4mg Take 1 [facility] 4 mg tablet 8-17 tablet by [facility] of 00:00: mouth [place] 00 every 8 Medical (eight) Branch hours as needed (severe muscle spams). tiZANidine 2-0 Yes [id number] 4mg Take 1 [facility] 4 mg tablet 8-17 tablet by [facility] of 00:00: mouth [place] 00 every 8 Medical (eight) Branch hours as needed (severe muscle spams). tiZANidine 2-0 Yes [id number] 4mg Take 1 [facility] 4 mg tablet 8-17 tablet by [facility] of 00:00: mouth [place] 00 every 8 Medical (eight) Branch hours as needed (severe muscle spams). tiZANidine 2-0 Yes [id number] 4mg Take 1 [facility] 4 mg tablet 8-17 tablet by [facility] 00:00: mouth [place] 00 every 8 Medical (eight) Branch hours as needed (severe muscle spams). tiZANidine 2-0 Yes [id number] 4mg Take 1 [facility] 4 mg tablet 8-17 tablet by [facility] of 00:00: mouth [place] 00 every 8 Medical (eight) Branch hours as needed (severe muscle spams). tiZANidine 2022-0 Yes [id number] 4mg Take 1 [facility] 4 mg tablet 8-17 tablet by [facility] 00:00: mouth [place] 00 every 8 Medical (eight) Branch hours as needed (severe muscle spams). tiZANidine 2022-0 Yes [id number] 4mg Take 1 [facility] 4 mg tablet 8-17 tablet by [facility] 00:00: mouth [place] 00 every 8 Medical (eight) Branch hours as needed (severe muscle spams). tiZANidine 2-0 Yes [id number] 4mg Take 1 [facility] 4 mg tablet 8-17 tablet by [facility] 00:00: mouth [place] 00 every 8 Medical (eight) Branch hours as needed (severe muscle spams). tiZANidine 2-0 Yes [id number] 4mg Take 1 [facility] 4 mg tablet 8-17 tablet by [facility] of 00:00: mouth [place] 00 every 8 Medical (eight) Branch hours as needed (severe muscle spams). tiZANidine 2-0 Yes [id number] 4mg Take 1 [facility] 4 mg tablet 8-17 tablet by [facility] 00:00: mouth [place] 00 every 8 Medical (eight) Branch hours as needed (severe muscle spams). tiZANidine 2-0 Yes [id number] 4mg Take 1 [facility] 4 mg tablet 8-17 tablet by [facility] 00:00: mouth [place] 00 every 8 Medical (eight) Branch hours as needed (severe muscle spams). tiZANidine 2-0 Yes [id number] 4mg Take 1 [facility] 4 mg tablet 8-17 tablet by [facility] of 00:00: mouth [place] 00 every 8 Medical (eight) Branch hours as needed (severe muscle spams). tiZANidine 2-0 Yes [id number] 4mg Take 1 [facility] 4 mg tablet 8-17 tablet by [facility] of 00:00: mouth [place] 00 every 8 Medical (eight) Branch hours as needed (severe muscle spams). tiZANidine 2-0 Yes [id number] 4mg Take 1 [facility] 4 mg tablet 8-17 tablet by [facility] 00:00: mouth [place] 00 every 8 Medical (eight) Branch hours as needed (severe muscle spams). tiZANidine 2-0 Yes [id number] 4mg Take 1 [facility] 4 mg tablet 8-17 tablet by [facility] of 00:00: mouth [place] 00 every 8 Medical (eight) Branch hours as needed (severe muscle spams). tiZANidine 2022-0 Yes [id number] 4mg Take 1 [facility] 4 mg tablet 8-17 tablet by [facility] of 00:00: mouth [place] 00 every 8 Medical (eight) Branch hours as needed (severe muscle spams). tiZANidine 2022-0 Yes [id number] 4mg Take 1 [facility] 4 mg tablet 8-17 tablet by [facility] of 00:00: mouth [place] 00 every 8 Medical (eight) Branch hours as needed (severe muscle spams). tiZANidine 2-0 Yes [id number] 4mg Take 1 [facility] 4 mg tablet 8-17 tablet by [facility] of 00:00: mouth [place] 00 every 8 Medical (eight) Branch hours as needed (severe muscle spams). tiZANidine 2-0 Yes [id number] 4mg Take 1 [facility] 4 mg tablet 8-17 tablet by [facility] of 00:00: mouth [place] 00 every 8 Medical (eight) Branch hours as needed (severe muscle spams). tiZANidine 2-0 Yes [id number] 4mg Take 1 [facility] 4 mg tablet 8-17 tablet by [facility] of 00:00: mouth [place] 00 every 8 Medical (eight) Branch hours as needed (severe muscle spams). tiZANidine 2-0 Yes [id number] 4mg Take 1 [facility] 4 mg tablet 8-17 tablet by [facility] 00:00: mouth [place] 00 every 8 Medical (eight) Branch hours as needed (severe muscle spams). tiZANidine 2-0 Yes [id number] 4mg Take 1 [facility] 4 mg tablet 8-17 tablet by [facility] 00:00: mouth [place] 00 every 8 Medical (eight) Branch hours as needed (severe muscle spams). tiZANidine 2-0 Yes [id number] 4mg Take 1 [facility] 4 mg tablet 8-17 tablet by [facility] 00:00: mouth [place] 00 every 8 Medical (eight) Branch hours as needed (severe muscle spams). tiZANidine 2022-0 Yes [id number] 4mg Take 1 [facility] 4 mg tablet 8-17 tablet by [facility] 00:00: mouth [place] 00 every 8 Medical (eight) Branch hours as needed (severe muscle spams). tiZANidine 2022-0 Yes [id number] 4mg Take 1 [facility] 4 mg tablet 8-17 tablet by [facility] 00:00: mouth [place] 00 every 8 Medical (eight) Branch hours as needed (severe muscle spams). tiZANidine 2-0 Yes [id number] 4mg Take 1 [facility] 4 mg tablet 8-17 tablet by [facility] of 00:00: mouth [place] 00 every 8 Medical (eight) Branch hours as needed (severe muscle spams). tiZANidine 2-0 Yes [id number] 4mg Take 1 [facility] 4 mg tablet 8-17 tablet by [facility] 00:00: mouth [place] 00 every 8 Medical (eight) Branch hours as needed (severe muscle spams). tiZANidine 2-0 Yes [id number] 4mg Take 1 [facility] 4 mg tablet 8-17 tablet by [facility] of 00:00: mouth [place] 00 every 8 Medical (eight) Branch hours as needed (severe muscle spams). tiZANidine 2-0 Yes [id number] 4mg Take 1 [facility] 4 mg tablet 8-17 tablet by [facility] of 00:00: mouth [place] 00 every 8 Medical (eight) Branch hours as needed (severe muscle spams). tiZANidine 2-0 Yes [id number] 4mg Take 1 [facility] 4 mg tablet 8-17 tablet by [facility] of 00:00: mouth [place] 00 every 8 Medical (eight) Branch hours as needed (severe muscle spams). tiZANidine 2-0 Yes [id number] 4mg Take 1 [facility] 4 mg tablet 8-17 tablet by [facility] of 00:00: mouth [place] 00 every 8 Medical (eight) Branch hours as needed (severe muscle spams). tiZANidine 2-0 Yes [id number] 4mg Take 1 [facility] 4 mg tablet 8-17 tablet by [facility] 00:00: mouth [place] 00 every 8 Medical (eight) Branch hours as needed (severe muscle spams). tiZANidine 2-0 Yes [id number] 4mg Take 1 [facility] 4 mg tablet 8-17 tablet by [facility] of 00:00: mouth [place] 00 every 8 Medical (eight) Branch hours as needed (severe muscle spams). tiZANidine 2022-0 Yes [id number] 4mg Take 1 [facility] 4 mg tablet 8-17 tablet by [facility] of 00:00: mouth [place] 00 every 8 Medical (eight) Branch hours as needed (severe muscle spams). tiZANidine 2022-0 Yes [id number] 4mg Take 1 [facility] 4 mg tablet 8-17 tablet by [facility] 00:00: mouth [place] 00 every 8 Medical (eight) Branch hours as needed (severe muscle spams). tiZANidine 2-0 Yes [id number] 4mg Take 1 [facility] 4 mg tablet 8-17 tablet by [facility] 00:00: mouth [place] 00 every 8 Medical (eight) Branch hours as needed (severe muscle spams). tiZANidine 2-0 Yes [id number] 4mg Take 1 [facility] 4 mg tablet 8-17 tablet by [facility] 00:00: mouth [place] 00 every 8 Medical (eight) Branch hours as needed (severe muscle spams). tiZANidine 2-0 Yes [id number] 4mg Take 1 [facility] 4 mg tablet 8-17 tablet by [facility] 00:00: mouth [place] 00 every 8 Medical (eight) Branch hours as needed (severe muscle spams). tiZANidine 2-0 Yes [id number] 4mg Take 1 [facility] 4 mg tablet 8-17 tablet by [facility] of 00:00: mouth [place] 00 every 8 Medical (eight) Branch hours as needed (severe muscle spams). tiZANidine 2-0 Yes [id number] 4mg Take 1 [facility] 4 mg tablet 8-17 tablet by [facility] of 00:00: mouth [place] 00 every 8 Medical (eight) Branch hours as needed (severe muscle spams). tiZANidine 2-0 Yes [id number] 4mg Take 1 [facility] 4 mg tablet 8-17 tablet by [facility] of 00:00: mouth [place] 00 every 8 Medical (eight) Branch hours as needed (severe muscle spams). tiZANidine 2-0 Yes [id number] 4mg Take 1 [facility] 4 mg tablet 8-17 tablet by [facility] of 00:00: mouth [place] 00 every 8 Medical (eight) Branch hours as needed (severe muscle spams). tiZANidine 2022-0 Yes [id number] 4mg Take 1 [facility] 4 mg tablet 8-17 tablet by [facility] of 00:00: mouth [place] 00 every 8 Medical (eight) Branch hours as needed (severe muscle spams). tiZANidine 2-0 Yes [id number] 4mg Take 1 [facility] 4 mg tablet 8-17 tablet by [facility] of 00:00: mouth [place] 00 every 8 Medical (eight) Branch hours as needed (severe muscle spams). tiZANidine 2-0 Yes [id number] 4mg Take 1 [facility] 4 mg tablet 8-17 tablet by [facility] of 00:00: mouth [place] 00 every 8 Medical (eight) Branch hours as needed (severe muscle spams). tiZANidine 2-0 Yes [id number] 4mg Take 1 [facility] 4 mg tablet 8-17 tablet by [facility] of 00:00: mouth [place] 00 every 8 Medical (eight) Branch hours as needed (severe muscle spams). tiZANidine 2022-0 Yes [id number] 4mg Take 1 [facility] 4 mg tablet 8-17 tablet by [facility] of 00:00: mouth [place] 00 every 8 Medical (eight) Branch hours as needed (severe muscle spams). tiZANidine 2-0 Yes [id number] 4mg Take 1 [facility] 4 mg tablet 8-17 tablet by [facility] of 00:00: mouth [place] 00 every 8 Medical (eight) Branch hours as needed (severe muscle spams). tiZANidine 2-0 Yes [id number] 4mg Take 1 [facility] 4 mg tablet 8-17 tablet by [facility] of 00:00: mouth [place] 00 every 8 Medical (eight) Branch hours as needed (severe muscle spams). tiZANidine 2-0 Yes [id number] 4mg Take 1 [facility] 4 mg tablet 8-17 tablet by [facility] of 00:00: mouth [place] 00 every 8 Medical (eight) Branch hours as needed (severe muscle spams). tiZANidine 2-0 Yes [id number] 4mg Take 1 [facility] 4 mg tablet 8-17 tablet by [facility] of 00:00: mouth [place] 00 every 8 Medical (eight) Branch hours as needed (severe muscle spams). tiZANidine 2022-0 Yes [id number] 4mg Take 1 [facility] 4 mg tablet 8-17 tablet by [facility] of 00:00: mouth [place] 00 every 8 Medical (eight) Branch hours as needed (severe muscle spams). tiZANidine 2022-0 Yes [id number] 4mg Take 1 [facility] 4 mg tablet 8-17 tablet by [facility] 00:00: mouth [place] 00 every 8 Medical (eight) Branch hours as needed (severe muscle spams). tiZANidine 2021-0 Yes [id number] 4mg Take 1 [facility] 4 mg tablet 8-17 tablet by [facility] of 00:00: mouth [place] 00 every 8 Medical (eight) Branch hours as needed (severe muscle spams). tiZANidine 2021-0 Yes [id number] 4mg Take 1 [facility] 4 mg tablet 8-17 tablet by [facility] of 00:00: mouth [place] 00 every 8 Medical (eight) Branch hours as needed (severe muscle spams). tiZANidine 2021-0 Yes [id number] 4mg Take 1 [facility] 4 mg tablet 8-17 tablet by [facility] of 00:00: mouth [place] 00 every 8 Medical (eight) Branch hours as needed (severe muscle spams). tiZANidine 2021-0 Yes [id number] 4mg Take 1 [facility] 4 mg tablet 8-17 tablet by [facility] of 00:00: mouth [place] 00 every 8 Medical (eight) Branch hours as needed (severe muscle spams). tiZANidine 2021-0 Yes [id number] 4mg Take 1 [facility] 4 mg tablet 8-17 tablet by [facility] of 00:00: mouth [place] 00 every 8 Medical (eight) Branch hours as needed (severe muscle spams). tiZANidine 2021-0 3- No [id number] 4mg Take 1 [facility] 4 mg tablet 02-22 01-10 tablet by it y of 00:00: 00:00 mouth [place] 00 :00 every 8 Medical (eight) Branch hours as needed (severe muscle spams). tiZANidine 2021-0 3- No [id number] 4mg Take 1 [facility] 4 mg tablet 02-22-10 tablet by it y of 00:00: 00:00 mouth [place] 00 :00 every 8 Medical (eight) Branch hours as needed (severe muscle spams). tizanidine 2021-0 2- No 4mg Take 4 mg [facility] (ZANAFLEX) 02-22-14 by mouth. [facility] 4 MG tablet 00:00: 00:00 of 00 :00 Medicin e levothyroxi Yes TAKE 1 [facility] 8-15 TABLET BY [place] (SYNTHROID) 00:00: MOUTH of 100 MCG 00 EVERY Medicin tablet MORNING e levothyroxi Yes TAKE 1 [facility] 8-15 TABLET BY [place] (SYNTHROID) 00:00: MOUTH of 100 MCG 00 EVERY Medicin tablet MORNING e ondansetron 2021- No [id number] 4mg Take 1 [facility] 4 mg 8-05 08-30 tablet by [facility] disintegrat 00:00: 00:[place] tablet [place] :00 every 8 [facility] (eight) Branch hours as needed for Nausea and Vomiting (N/V). ondansetron 2021- No [id number] 4mg Take 1 [facility] 4 mg 8-05 08-30 tablet by [facility] disintegrat 00:00: 00:[place] tablet 00 :00 every 8 [facility] (eight) Branch hours as needed for Nausea and Vomiting (N/V). amitriptyli Yes TAKE 1 [facility] (ELAVIL) 8-04 TABLET BY [facility] 10 MG 00:00: MOUTH of tablet 00 EVERY Medicin NIGHT e clonazepam Yes TAKE 1 [facility] (KLONOPIN) 8-04 TABLET BY [facility] 1 MG tablet 00:00: MOUTH of 00 DAILY Medicin NEEDED FOR e SEVERE ANXIETY amitriptyli Yes TAKE 1 [facility] (ELAVIL) 8-04 TABLET BY [facility] 10 MG 00:00: MOUTH of tablet 00 EVERY Medicin NIGHT e clonazepam Yes TAKE 1 [facility] (KLONOPIN) 8-04 TABLET BY [facility] 1 MG tablet 00:00: MOUTH of 00 DAILY Medicin NEEDED FOR e SEVERE ANXIETY amitriptyli Yes 10mg Take 10 mg [facility] 10 mg 8-04 by mouth [facility] of tablet 00:00: in the [place] morning. [facility] clonazePAM 2021-0 Yes 1mg Take 1 mg [facility] 1 mg tablet 8-04 by mouth [facility] of 00:00: in the [place] 00 morning. [facility] amitriptyli 2021-0 Yes 10mg Take 10 mg [facility] 10 mg 8-04 by mouth [facility] of tablet 00:00: in the [place] 00 morning. [facility] clonazePAM 2021-0 Yes 1mg Take 1 mg [facility] 1 mg tablet 8-04 by mouth [facility] of 00:00: in the [place] 00 morning. [facility] amitriptyli 2022-0 Yes 10mg Take 10 mg [facility] 10 mg 8-04 by mouth [facility] of tablet 00:00: in the [place] 00 morning. [facility] clonazePAM 2022-0 Yes 1mg Take 1 mg [facility] 1 mg tablet 8-04 by mouth ity of 00:00: in the [place] morning. [facility] amitriptyli 2022-0 Yes 10mg Take 10 mg [facility] 10 mg 8-04 by mouth [facility] of tablet 00:00: in the [place] morning. [facility] clonazePAM 2022-0 Yes 1mg Take 1 mg [facility] 1 mg tablet 8-04 by mouth ity of 00:00: in the [place] morning. [facility] amitriptyli 2022-0 Yes 10mg Take 10 mg [facility] 10 mg 8-04 by mouth [facility] of tablet 00:00: in the [place] morning. [facility] clonazePAM 2022-0 Yes 1mg Take 1 mg [facility] 1 mg tablet 8-04 by mouth ity of 00:00: in the [place] morning. [facility] amitriptyli 2022-0 Yes 10mg Take 10 mg [facility] 10 mg 8-04 by mouth [facility] of tablet 00:00: in the [place] morning. [facility] clonazePAM 2022-0 Yes 1mg Take 1 mg [facility] 1 mg tablet 8-04 by mouth ity of 00:00: in the [place] 00 morning. [facility] amitriptyli 2022-0 Yes 10mg Take 10 mg [facility] 10 mg 8-04 by mouth [facility] of tablet 00:00: in the [place] morning. [facility] clonazePAM 2022-0 Yes 1mg Take 1 mg [facility] 1 mg tablet 8-04 by mouth ity of 00:00: in the [place] morning. [facility] amitriptyli 2022-0 Yes 10mg Take 10 mg [facility] 10 mg 8-04 by mouth [facility] of tablet 00:00: in the [place] 00 morning. [facility] clonazePAM 2022-0 Yes 1mg Take 1 mg [facility] 1 mg tablet 8-04 by mouth ity of 00:00: in the [place] 00 morning. [facility] amitriptyli 2022-0 Yes 10mg Take 10 mg [facility] 10 mg 8-04 by mouth [facility] of tablet 00:00: in the [place] 00 morning. [facility] clonazePAM 2022-0 Yes 1mg Take 1 mg [facility] 1 mg tablet 8-04 by mouth ity of 00:00: in the [place] 00 morning. [facility] amitriptyli 2022-0 Yes 10mg Take 10 mg [facility] 10 mg 8-04 by mouth [facility] of tablet 00:00: in the [place] morning. [facility] clonazePAM 2022-0 Yes 1mg Take 1 mg [facility] 1 mg tablet 8-04 by mouth ity of 00:00: in the [place] morning. [facility] amitriptyli 2022-0 Yes 10mg Take 10 mg [facility] 10 mg 8-04 by mouth [facility] of tablet 00:00: in the [place] morning. [facility] clonazePAM 2022-0 Yes 1mg Take 1 mg [facility] 1 mg tablet 8-04 by mouth [facility] of 00:00: in the [place] morning. [facility] amitriptyli 2022-0 Yes 10mg Take 10 mg [facility] 10 mg 8-04 by mouth [facility] of tablet 00:00: in the [place] morning. [facility] clonazePAM 2022-0 Yes 1mg Take 1 mg [facility] 1 mg tablet 8-04 by mouth ity of 00:00: in the [place] morning. [facility] amitriptyli 2022-0 Yes 10mg Take 10 mg [facility] 10 mg 8-04 by mouth [facility] of tablet 00:00: in the [place] morning. [facility] clonazePAM 2022-0 Yes 1mg Take 1 mg [facility] 1 mg tablet 8-04 by mouth ity of 00:00: in the [place] morning. [facility] amitriptyli 2022-0 Yes 10mg Take 10 mg [facility] 10 mg 8-04 by mouth [facility] of tablet 00:00: in the [place] 00 morning. [facility] clonazePAM 2022-0 Yes 1mg Take 1 mg [facility] 1 mg tablet 8-04 by mouth ity of 00:00: in the [place] 00 morning. [facility] amitriptyli 2022-0 Yes 10mg Take 10 mg [facility] 10 mg 8-04 by mouth [facility] of tablet 00:00: in the [place] 00 morning. [facility] clonazePAM 2022-0 Yes 1mg Take 1 mg [facility] 1 mg tablet 8-04 by mouth it[facility] of 00:00: in the [place] 00 morning. [facility] amitriptyli 2022-0 Yes 10mg Take 10 mg [facility] 10 mg 8-04 by mouth [facility] of tablet 00:00: in the [place] 00 morning. [facility] clonazePAM 2022-0 Yes 1mg Take 1 mg [facility] 1 mg tablet 8-04 by mouth ity of 00:00: in the [place] morning. [facility] amitriptyli 2022-0 Yes 10mg Take 10 mg [facility] 10 mg 8-04 by mouth [facility] of tablet 00:00: in the [place] morning. [facility] clonazePAM 2022-0 Yes 1mg Take 1 mg [facility] 1 mg tablet 8-04 by mouth ity of 00:00: in the [place] morning. [facility] amitriptyli 2-0 Yes 10mg Take 10 mg [facility] 10 mg 8-04 by mouth [facility] of tablet 00:00: in the [place] morning. [facility] clonazePAM 2022-0 Yes 1mg Take 1 mg [facility] 1 mg tablet 8-04 by mouth ity of 00:00: in the [place] morning. [facility] amitriptyli 2-0 Yes 10mg Take 10 mg [facility] 10 mg 8-04 by mouth [facility] of tablet 00:00: in the [place] 00 morning. [facility] clonazePAM 2-0 Yes 1mg Take 1 mg [facility] 1 mg tablet 8-04 by mouth ity of 00:00: in the [place] 00 morning. [facility] amitriptyli 2022-0 Yes 10mg Take 10 mg [facility] 10 mg 8-04 by mouth [facility] of tablet 00:00: in the [place] 00 morning. [facility] clonazePAM 2022-0 Yes 1mg Take 1 mg [facility] 1 mg tablet 8-04 by mouth ity of 00:00: in the [place] 00 morning. [facility] amitriptyli 2022-0 Yes 10mg Take 10 mg [facility] 10 mg 8-04 by mouth [facility] of tablet 00:00: in the [place] 00 morning. [facility] clonazePAM 2022-0 Yes 1mg Take 1 mg [facility] 1 mg tablet 8-04 by mouth ity of 00:00: in the [place] 00 morning. [facility] amitriptyli 2022-0 Yes 10mg Take 10 mg [facility] 10 mg 8-04 by mouth [facility] of tablet 00:00: in the [place] 00 morning. [facility] clonazePAM 2022-0 Yes 1mg Take 1 mg [facility] 1 mg tablet 8-04 by mouth ity of 00:00: in the [place] 00 morning. [facility] amitriptyli 2022-0 Yes 10mg Take 10 mg [facility] 10 mg 8-04 by mouth [facility] of tablet 00:00: in the [place] 00 morning. [facility] clonazePAM 2022-0 Yes 1mg Take 1 mg [facility] 1 mg tablet 8-04 by mouth ity of 00:00: in the [place] 00 morning. [facility] amitriptyli 2022-0 Yes 10mg Take 10 mg [facility] 10 mg 8-04 by mouth [facility] of tablet 00:00: in the [place] 00 morning. [facility] clonazePAM 2022-0 Yes 1mg Take 1 mg [facility] 1 mg tablet 8-04 by mouth ity of 00:00: in the [place] morning. [facility] amitriptyli 2022-0 Yes 10mg Take 10 mg [facility] 10 mg 8-04 by mouth [facility] of tablet 00:00: in the [place] 00 morning. [facility] clonazePAM 2022-0 Yes 1mg Take 1 mg [facility] 1 mg tablet 8-04 by mouth it[facility] of 00:00: in the [place] 00 morning. [facility] amitriptyli 2022-0 Yes 10mg Take 10 mg [facility] 10 mg 8-04 by mouth [facility] of tablet 00:00: in the [place] 00 morning. [facility] clonazePAM 2022-0 Yes 1mg Take 1 mg [facility] 1 mg tablet 8-04 by mouth ity of 00:00: in the [place] 00 morning. [facility] amitriptyli 2022-0 Yes 10mg Take 10 mg [facility] 10 mg 8-04 by mouth [facility] of tablet 00:00: in the [place] 00 morning. [facility] clonazePAM 2022-0 Yes 1mg Take 1 mg [facility] 1 mg tablet 8-04 by mouth ity of 00:00: in the [place] 00 morning. [facility] amitriptyli 2022-0 Yes 10mg Take 10 mg [facility] 10 mg 8-04 by mouth it[facility] of tablet 00:00: in the [place] 00 morning. [facility] clonazePAM 2022-0 Yes 1mg Take 1 mg [facility] 1 mg tablet 8-04 by mouth ity of 00:00: in the [place] morning. [facility] amitriptyli 2022-0 Yes 10mg Take 10 mg [facility] 10 mg 8-04 by mouth ity of tablet 00:00: in the [place] morning. [facility] clonazePAM 2022-0 Yes 1mg Take 1 mg [facility] 1 mg tablet 8-04 by mouth ity of 00:00: in the [place] morning. [facility] amitriptyli 2022-0 Yes 10mg Take 10 mg [facility] 10 mg 8-04 by mouth it[facility] of tablet 00:00: in the [place] morning. [facility] clonazePAM 2022-0 Yes 1mg Take 1 mg [facility] 1 mg tablet 8-04 by mouth ity of 00:00: in the [place] morning. [facility] amitriptyli 2022-0 Yes 10mg Take 10 mg [facility] 10 mg 8-04 by mouth ity of tablet 00:00: in the [place] morning. [facility] clonazePAM 2022-0 Yes 1mg Take 1 mg [facility] 1 mg tablet 8-04 by mouth ity of 00:00: in the [place] morning. [facility] amitriptyli 2022-0 Yes 10mg Take 10 mg [facility] 10 mg 8-04 by mouth it[facility] of tablet 00:00: in the [place] 00 morning. [facility] clonazePAM 2022-0 Yes 1mg Take 1 mg [facility] 1 mg tablet 8-04 by mouth ity of 00:00: in the [place] morning. [facility] amitriptyli 2022-0 Yes 10mg Take 10 mg [facility] 10 mg 8-04 by mouth ity of tablet 00:00: in the [place] morning. [facility] clonazePAM 2022-0 Yes 1mg Take 1 mg [facility] 1 mg tablet 8-04 by mouth ity of 00:00: in the [place] 00 morning. [facility] amitriptyli 2022-0 Yes 10mg Take 10 mg [facility] 10 mg 8-04 by mouth ity of tablet 00:00: in the [place] 00 morning. [facility] clonazePAM 2022-0 Yes 1mg Take 1 mg [facility] 1 mg tablet 8-04 by mouth ity of 00:00: in the [place] 00 morning. [facility] amitriptyli 2022-0 Yes 10mg Take 10 mg [facility] 10 mg 8-04 by mouth ity of tablet 00:00: in the [place] 00 morning. [facility] clonazePAM 2022-0 Yes 1mg Take 1 mg [facility] 1 mg tablet 8-04 by mouth ity of 00:00: in the [place] 00 morning. [facility] amitriptyli 2022-0 Yes 10mg Take 10 mg [facility] 10 mg 8-04 by mouth ity of tablet 00:00: in the [place] morning. [facility] clonazePAM 2022-0 Yes 1mg Take 1 mg [facility] 1 mg tablet 8-04 by mouth ity of 00:00: in the [place] 00 morning. [facility] amitriptyli 2022-0 Yes 10mg Take 10 mg [facility] 10 mg 8-04 by mouth ity of tablet 00:00: in the [place] morning. [facility] clonazePAM 2022-0 Yes 1mg Take 1 mg [facility] 1 mg tablet 8-04 by mouth ity of 00:00: in the [place] morning. [facility] amitriptyli 2022-0 Yes 10mg Take 10 mg [facility] 10 mg 8-04 by mouth ity of tablet 00:00: in the [place] 00 morning. [facility] clonazePAM 2022-0 Yes 1mg Take 1 mg [facility] 1 mg tablet 8-04 by mouth ity of 00:00: in the [place] 00 morning. [facility] amitriptyli 2022-0 Yes 10mg Take 10 mg [facility] 10 mg 8-04 by mouth ity of tablet 00:00: in the [place] morning. [facility] clonazePAM 2022-0 Yes 1mg Take 1 mg [facility] 1 mg tablet 8-04 by mouth ity of 00:00: in the [place] 00 morning. [facility] amitriptyli 2022-0 Yes 10mg Take 10 mg [facility] 10 mg 8-04 by mouth ity of tablet 00:00: in the [place] 00 morning. [facility] clonazePAM 2022-0 Yes 1mg Take 1 mg [facility] 1 mg tablet 8-04 by mouth ity of 00:00: in the [place] 00 morning. [facility] amitriptyli 2022-0 Yes 10mg Take 10 mg [facility] 10 mg 8-04 by mouth ity of tablet 00:00: in the [place] 00 morning. [facility] clonazePAM 2022-0 Yes 1mg Take 1 mg [facility] 1 mg tablet 8-04 by mouth ity of 00:00: in the [place] 00 morning. [facility] amitriptyli 2022-0 Yes 10mg Take 10 mg [facility] 10 mg 8-04 by mouth ity of tablet 00:00: in the [place] morning. [facility] clonazePAM 2022-0 Yes 1mg Take 1 mg [facility] 1 mg tablet 8-04 by mouth ity of 00:00: in the [place] morning. [facility] amitriptyli 2022-0 Yes 10mg Take 10 mg [facility] 10 mg 8-04 by mouth ity of tablet 00:00: in the [place] morning. [facility] clonazePAM 2022-0 Yes 1mg Take 1 mg [facility] 1 mg tablet 8-04 by mouth ity of 00:00: in the [place] morning. [facility] amitriptyli 2022-0 Yes 10mg Take 10 mg [facility] 10 mg 8-04 by mouth ity of tablet 00:00: in the [place] morning. [facility] clonazePAM 2022-0 Yes 1mg Take 1 mg [facility] 1 mg tablet 8-04 by mouth ity of 00:00: in the [place] morning. [facility] amitriptyli 2022-0 Yes 10mg Take 10 mg [facility] 10 mg 8-04 by mouth ity of tablet 00:00: in the [place] morning. [facility] clonazePAM 2022-0 Yes 1mg Take 1 mg [facility] 1 mg tablet 8-04 by mouth ity of 00:00: in the [place] morning. [facility] amitriptyli 2022-0 Yes 10mg Take 10 mg [facility] 10 mg 8-04 by mouth ity of tablet 00:00: in the [place] morning. [facility] clonazePAM 2022-0 Yes 1mg Take 1 mg [facility] 1 mg tablet 8-04 by mouth ity of 00:00: in the [place] 00 morning. [facility] amitriptyli 2022-0 Yes 10mg Take 10 mg [facility] 10 mg 8-04 by mouth ity of tablet 00:00: in the [place] 00 morning. [facility] clonazePAM 2022-0 Yes 1mg Take 1 mg [facility] 1 mg tablet 8-04 by mouth ity of 00:00: in the [place] morning. [facility] amitriptyli 2022-0 Yes 10mg Take 10 mg [facility] 10 mg 8-04 by mouth ity of tablet 00:00: in the [place] morning. [facility] clonazePAM 2022-0 Yes 1mg Take 1 mg [facility] 1 mg tablet 8-04 by mouth ity of 00:00: in the [place] morning. [facility] amitriptyli 2022-0 Yes 10mg Take 10 mg [facility] 10 mg 8-04 by mouth ity of tablet 00:00: in the [place] morning. [facility] clonazePAM 2022-0 Yes 1mg Take 1 mg [facility] 1 mg tablet 8-04 by mouth ity of 00:00: in the [place] morning. [facility] amitriptyli 2022-0 Yes 10mg Take 10 mg [facility] 10 mg 8-04 by mouth ity of tablet 00:00: in the [place] morning. [facility] clonazePAM 2022-0 Yes 1mg Take 1 mg [facility] 1 mg tablet 8-04 by mouth ity of 00:00: in the [place] morning. [facility] amitriptyli 2022-0 Yes 10mg Take 10 mg [facility] 10 mg 8-04 by mouth ity of tablet 00:00: in the [place] morning. [facility] clonazePAM 2022-0 Yes 1mg Take 1 mg [facility] 1 mg tablet 8-04 by mouth ity of 00:00: in the [place] morning. [facility] amitriptyli 2022-0 Yes 10mg Take 10 mg [facility] 10 mg 8-04 by mouth ity of tablet 00:00: in the [place] morning. [facility] clonazePAM 2022-0 Yes 1mg Take 1 mg [facility] 1 mg tablet 8-04 by mouth ity of 00:00: in the [place] morning. [facility] amitriptyli 2022-0 Yes 10mg Take 10 mg [facility] 10 mg 8-04 by mouth ity of tablet 00:00: in the [place] 00 morning. [facility] clonazePAM 2022-0 Yes 1mg Take 1 mg [facility] 1 mg tablet 8-04 by mouth ity of 00:00: in the [place] morning. [facility] amitriptyli 2022-0 Yes 10mg Take 10 mg [facility] 10 mg 8-04 by mouth ity of tablet 00:00: in the [place] 00 morning. [facility] clonazePAM 2022-0 Yes 1mg Take 1 mg [facility] 1 mg tablet 8-04 by mouth ity of 00:00: in the [place] 00 morning. [facility] amitriptyli 2022-0 Yes 10mg Take 10 mg [facility] 10 mg 8-04 by mouth [facility]y of tablet 00:00: in the [place] morning. [facility] clonazePAM 2022-0 Yes 1mg Take 1 mg [facility] 1 mg tablet 8-04 by mouth ity of 00:00: in the [place] morning. [facility] amitriptyli 2022-0 Yes 10mg Take 10 mg [facility] 10 mg 8-04 by mouth ity of tablet 00:00: in the [place] morning. [facility] clonazePAM 2022-0 Yes 1mg Take 1 mg [facility] 1 mg tablet 8-04 by mouth ity of 00:00: in the [place] morning. [facility] amitriptyli 2022-0 Yes 10mg Take 10 mg [facility] 10 mg 8-04 by mouth ity of tablet 00:00: in the [place] morning. [facility] clonazePAM 2022-0 Yes 1mg Take 1 mg [facility] 1 mg tablet 8-04 by mouth ity of 00:00: in the [place] 00 morning. [facility] amitriptyli 2022-0 Yes 10mg Take 10 mg [facility] 10 mg 8-04 by mouth ity of tablet 00:00: in the [place] morning. [facility] clonazePAM 2022-0 Yes 1mg Take 1 mg [facility] 1 mg tablet 8-04 by mouth ity of 00:00: in the [place] morning. [facility] amitriptyli 2022-0 Yes 10mg Take 10 mg [facility] 10 mg 8-04 by mouth ity of tablet 00:00: in the [place] 00 morning. [facility] clonazePAM 2022-0 Yes 1mg Take 1 mg [facility] 1 mg tablet 8-04 by mouth ity of 00:00: in the [place] 00 morning. [facility] amitriptyli 2022-0 Yes 10mg Take 10 mg [facility] 10 mg 8-04 by mouth ity of tablet 00:00: in the [place] 00 morning. [facility] clonazePAM 2022-0 Yes 1mg Take 1 mg [facility] 1 mg tablet 8-04 by mouth ity of 00:00: in the [place] 00 morning. [facility] amitriptyli 2022-0 Yes 10mg Take 10 mg [facility] 10 mg 8-04 by mouth ity of tablet 00:00: in the [place] 00 morning. [facility] clonazePAM 2022-0 Yes 1mg Take 1 mg [facility] 1 mg tablet 8-04 by mouth ity of 00:00: in the [place] morning. [facility] amitriptyli 2022-0 Yes 10mg Take 10 mg [facility] 10 mg 8-04 by mouth ity of tablet 00:00: in the [place] morning. [facility] clonazePAM 2022-0 Yes 1mg Take 1 mg [facility] 1 mg tablet 8-04 by mouth ity of 00:00: in the [place] morning. [facility] amitriptyli 2022-0 Yes 10mg Take 10 mg [facility] 10 mg 8-04 by mouth ity of tablet 00:00: in the [place] morning. [facility] clonazePAM 2022-0 Yes 1mg Take 1 mg [facility] 1 mg tablet 8-04 by mouth ity of 00:00: in the [place] morning. [facility] amitriptyli 2022-0 Yes 10mg Take 10 mg [facility] 10 mg 8-04 by mouth ity of tablet 00:00: in the [place] morning. [facility] clonazePAM 2022-0 Yes 1mg Take 1 mg [facility] 1 mg tablet 8-04 by mouth ity of 00:00: in the [place] morning. [facility] amitriptyli 2022-0 Yes 10mg Take 10 mg [facility] 10 mg 8-04 by mouth ity of tablet 00:00: in the [place] 00 morning. [facility] clonazePAM 2022-0 Yes 1mg Take 1 mg [facility] 1 mg tablet 8-04 by mouth ity of 00:00: in the [place] 00 morning. [facility] amitriptyli 2022-0 Yes 10mg Take 10 mg [facility] 10 mg 8-04 by mouth ity of tablet 00:00: in the [place] 00 morning. [facility] clonazePAM 2022-0 Yes 1mg Take 1 mg [facility] 1 mg tablet 8-04 by mouth ity of 00:00: in the [place] 00 morning. [facility] amitriptyli 2022-0 Yes 10mg Take 10 mg [facility] 10 mg 8-04 by mouth ity of tablet 00:00: in the [place] 00 morning. [facility] clonazePAM 2022-0 Yes 1mg Take 1 mg [facility] 1 mg tablet 8-04 by mouth ity of 00:00: in the [place] 00 morning. [facility] amitriptyli 2022-0 Yes 10mg Take 10 mg [facility] 10 mg 8-04 by mouth ity of tablet 00:00: in the [place] 00 morning. [facility] clonazePAM 2022-0 Yes 1mg Take 1 mg [facility] 1 mg tablet 8-04 by mouth [facility]y of 00:00: in the [place] 00 morning. [facility] amitriptyli 2022-0 Yes 10mg Take 10 mg [facility] 10 mg 8-04 by mouth [facility]y of tablet 00:00: in the [place] 00 morning. [facility] clonazePAM 2022-0 Yes 1mg Take 1 mg [facility] 1 mg tablet 8-04 by mouth ity of 00:00: in the [place] morning. [facility] amitriptyli 2022-0 Yes 10mg Take 10 mg [facility] 10 mg 8-04 by mouth ity of tablet 00:00: in the [place] 00 morning. [facility] clonazePAM 2022-0 Yes 1mg Take 1 mg [facility] 1 mg tablet 8-04 by mouth ity of 00:00: in the [place] 00 morning. [facility] amitriptyli 2022-0 Yes 10mg Take 10 mg [facility] 10 mg 8-04 by mouth ity of tablet 00:00: in the [place] morning. [facility] clonazePAM 2022-0 Yes 1mg Take 1 mg [facility] 1 mg tablet 8-04 by mouth ity of 00:00: in the [place] 00 morning. [facility] amitriptyli 2022-0 Yes 10mg Take 10 mg [facility] 10 mg 8-04 by mouth ity of tablet 00:00: in the [place] 00 morning. [facility] clonazePAM 2022-0 Yes 1mg Take 1 mg [facility] 1 mg tablet 8-04 by mouth ity of 00:00: in the [place] 00 morning. [facility] amitriptyli 2022-0 Yes 10mg Take 10 mg [facility] 10 mg 8-04 by mouth ity of tablet 00:00: in the [place] 00 morning. [facility] clonazePAM 2022-0 Yes 1mg Take 1 mg [facility] 1 mg tablet 8-04 by mouth ity of 00:00: in the [place] 00 morning. [facility] amitriptyli 2022-0 Yes 10mg Take 10 mg [facility] 10 mg 8-04 by mouth ity of tablet 00:00: in the [place] morning. [facility] clonazePAM 2022-0 Yes 1mg Take 1 mg [facility] 1 mg tablet 8-04 by mouth ity of 00:00: in the [place] morning. [facility] amitriptyli 2022-0 Yes 10mg Take 10 mg [facility] 10 mg 8-04 by mouth ity of tablet 00:00: in the [place] morning. [facility] clonazePAM 2022-0 Yes 1mg Take 1 mg [facility] 1 mg tablet 8-04 by mouth ity of 00:00: in the [place] morning. [facility] amitriptyli 2022-0 Yes 10mg Take 10 mg [facility] 10 mg 8-04 by mouth ity of tablet 00:00: in the [place] morning. [facility] clonazePAM 2022-0 Yes 1mg Take 1 mg [facility] 1 mg tablet 8-04 by mouth ity of 00:00: in the [place] morning. [facility] amitriptyli 2022-0 Yes 10mg Take 10 mg [facility] 10 mg 8-04 by mouth ity of tablet 00:00: in the [place] 00 morning. [facility] clonazePAM 2022-0 Yes 1mg Take 1 mg [facility] 1 mg tablet 8-04 by mouth ity of 00:00: in the [place] morning. [facility] amitriptyli 2022-0 Yes 10mg Take 10 mg [facility] 10 mg 8-04 by mouth ity of tablet 00:00: in the [place] 00 morning. [facility] clonazePAM 2022-0 Yes 1mg Take 1 mg [facility] 1 mg tablet 8-04 by mouth ity of 00:00: in the [place] 00 morning. [facility] amitriptyli 2022-0 Yes 10mg Take 10 mg [facility] 10 mg 8-04 by mouth ity of tablet 00:00: in the [place] 00 morning. [facility] clonazePAM 2022-0 Yes 1mg Take 1 mg [facility] 1 mg tablet 8-04 by mouth ity of 00:00: in the [place] 00 morning. [facility] amitriptyli 2022-0 Yes 10mg Take 10 mg [facility] 10 mg 8-04 by mouth ity of tablet 00:00: in the [place] 00 morning. [facility] clonazePAM 2022-0 Yes 1mg Take 1 mg [facility] 1 mg tablet 8-04 by mouth ity of 00:00: in the [place] morning. [facility] amitriptyli 2022-0 Yes 10mg Take 10 mg [facility] 10 mg 8-04 by mouth ity of tablet 00:00: in the [place] morning. [facility] clonazePAM 2022-0 Yes 1mg Take 1 mg [facility] 1 mg tablet 8-04 by mouth ity of 00:00: in the [place] morning. [facility] amitriptyli 2022-0 Yes 10mg Take 10 mg [facility] 10 mg 8-04 by mouth ity of tablet 00:00: in the [place] morning. [facility] clonazePAM 2022-0 Yes 1mg Take 1 mg [facility] 1 mg tablet 8-04 by mouth ity of 00:00: in the [place] morning. [facility] amitriptyli 2022-0 Yes 10mg Take 10 mg [facility] 10 mg 8-04 by mouth ity of tablet 00:00: in the [place] morning. [facility] clonazePAM 2022-0 Yes 1mg Take 1 mg [facility] 1 mg tablet 8-04 by mouth ity of 00:00: in the [place] 00 morning. [facility] amitriptyli 2022-0 Yes 10mg Take 10 mg [facility] 10 mg 8-04 by mouth ity of tablet 00:00: in the [place] morning. [facility] clonazePAM 2022-0 Yes 1mg Take 1 mg [facility] 1 mg tablet 8-04 by mouth ity of 00:00: in the [place] 00 morning. [facility] amitriptyli 2022-0 Yes 10mg Take 10 mg [facility] 10 mg 8-04 by mouth ity of tablet 00:00: in the [place] 00 morning. [facility] clonazePAM 2022-0 Yes 1mg Take 1 mg [facility] 1 mg tablet 8-04 by mouth [facility] of 00:00: in the [place] 00 morning. [facility] amitriptyli 2022-0 Yes 10mg Take 10 mg [facility] 10 mg 8-04 by mouth [facility] of tablet 00:00: in the [place] 00 morning. [facility] clonazePAM 2022-0 Yes 1mg Take 1 mg [facility] 1 mg tablet 8-04 by mouth it[facility] of 00:00: in the [place] 00 morning. [facility] amitriptyli 2022-0 Yes 10mg Take 10 mg [facility] 10 mg 8-04 by mouth [facility] of tablet 00:00: in the [place] morning. [facility] clonazePAM 2022-0 Yes 1mg Take 1 mg [facility] 1 mg tablet 8-04 by mouth it[facility] of 00:00: in the [place] 00 morning. [facility] amitriptyli 2022-0 Yes 10mg Take 10 mg [facility] 10 mg 8-04 by mouth [facility] of tablet 00:00: in the [place] morning. [facility] clonazePAM 2022-0 Yes 1mg Take 1 mg [facility] 1 mg tablet 8-04 by mouth ity of 00:00: in the [place] morning. [facility] amitriptyli 2022-0 Yes 10mg Take 10 mg [facility] 10 mg 8-04 by mouth it[facility] of tablet 00:00: in the [place] morning. [facility] clonazePAM 2022-0 Yes 1mg Take 1 mg [facility] 1 mg tablet 8-04 by mouth ity of 00:00: in the [place] 00 morning. [facility] amitriptyli 2022-0 Yes 10mg Take 10 mg [facility] 10 mg 8-04 by mouth [facility] of tablet 00:00: in the [place] 00 morning. [facility] clonazePAM 2022-0 Yes 1mg Take 1 mg [facility] 1 mg tablet 8-04 by mouth ity of 00:00: in the [place] 00 morning. [facility] amitriptyli 2022-0 Yes 10mg Take 10 mg [facility] 10 mg 8-04 by mouth it[facility] of tablet 00:00: in the [place] 00 morning. [facility] clonazePAM 2022-0 Yes 1mg Take 1 mg [facility] 1 mg tablet 8-04 by mouth ity of 00:00: in the [place] 00 morning. [facility] amitriptyli 2022-0 Yes 10mg Take 10 mg [facility] 10 mg 8-04 by mouth ity of tablet 00:00: in the [place] 00 morning. [facility] clonazePAM 2022-0 Yes 1mg Take 1 mg [facility] 1 mg tablet 8-04 by mouth it[facility] of 00:00: in the [place] 00 morning. [facility] amitriptyli 2022-0 Yes 10mg Take 10 mg [facility] 10 mg 8-04 by mouth it[facility] of tablet 00:00: in the [place] 00 morning. [facility] clonazePAM 2022-0 Yes 1mg Take 1 mg [facility] 1 mg tablet 8-04 by mouth it[facility] of 00:00: in the [place] morning. [facility] amitriptyli 2022-0 Yes 10mg Take 10 mg [facility] 10 mg 8-04 by mouth ity of tablet 00:00: in the [place] morning. [facility] clonazePAM 2022-0 Yes 1mg Take 1 mg [facility] 1 mg tablet 8-04 by mouth ity of 00:00: in the [place] morning. [facility] amitriptyli 2022-0 Yes 10mg Take 10 mg [facility] 10 mg 8-04 by mouth ity of tablet 00:00: in the [place] morning. [facility] clonazePAM 2022-0 Yes 1mg Take 1 mg [facility] 1 mg tablet 8-04 by mouth it[facility] of 00:00: in the [place] 00 morning. [facility] amitriptyli 2022-0 Yes 10mg Take 10 mg [facility] 10 mg 8-04 by mouth it[facility] of tablet 00:00: in the [place] 00 morning. [facility] clonazePAM 2022-0 Yes 1mg Take 1 mg [facility] 1 mg tablet 8-04 by mouth ity of 00:00: in the [place] 00 morning. [facility] amitriptyli 2022-0 Yes 10mg Take 10 mg [facility] 10 mg 8-04 by mouth it[facility] of tablet 00:00: in the [place] 00 morning. [facility] clonazePAM 2022-0 Yes 1mg Take 1 mg [facility] 1 mg tablet 8-04 by mouth ity of 00:00: in the [place] 00 morning. [facility] amitriptyli 2022-0 Yes 10mg Take 10 mg [facility] 10 mg 8-04 by mouth ity of tablet 00:00: in the [place] 00 morning. [facility] clonazePAM 2022-0 Yes 1mg Take 1 mg [facility] 1 mg tablet 8-04 by mouth ity of 00:00: in the [place] 00 morning. [facility] amitriptyli 2022-0 Yes 10mg Take 10 mg [facility] 10 mg 8-04 by mouth ity of tablet 00:00: in the [place] 00 morning. [facility] clonazePAM 2022-0 Yes 1mg Take 1 mg [facility] 1 mg tablet 8-04 by mouth ity of 00:00: in the [place] 00 morning. [facility] amitriptyli 2022-0 Yes 10mg Take 10 mg [facility] 10 mg 8-04 by mouth ity of tablet 00:00: in the [place] morning. [facility] clonazePAM 2022-0 Yes 1mg Take 1 mg [facility] 1 mg tablet 8-04 by mouth ity of 00:00: in the [place] morning. [facility] amitriptyli 2022-0 Yes 10mg Take 10 mg [facility] 10 mg 8-04 by mouth ity of tablet 00:00: in the [place] 00 morning. [facility] clonazePAM 2022-0 Yes 1mg Take 1 mg [facility] 1 mg tablet 8-04 by mouth ity of 00:00: in the [place] morning. [facility] amitriptyli 2022-0 Yes 10mg Take 10 mg [facility] 10 mg 8-04 by mouth ity of tablet 00:00: in the [place] 00 morning. [facility] clonazePAM 2022-0 Yes 1mg Take 1 mg [facility] 1 mg tablet 8-04 by mouth ity of 00:00: in the [place] 00 morning. [facility] amitriptyli 2022-0 Yes 10mg Take 10 mg [facility] 10 mg 8-04 by mouth ity of tablet 00:00: in the [place] morning. [facility] clonazePAM 2022-0 Yes 1mg Take 1 mg [facility] 1 mg tablet 8-04 by mouth ity of 00:00: in the [place] 00 morning. [facility] amitriptyli 2022-0 Yes 10mg Take 10 mg [facility] 10 mg 8-04 by mouth ity of tablet 00:00: in the [place] 00 morning. [facility] clonazePAM 2022-0 Yes 1mg Take 1 mg [facility] 1 mg tablet 8-04 by mouth ity of 00:00: in the [place] 00 morning. [facility] amitriptyli 2022-0 Yes 10mg Take 10 mg [facility] 10 mg 8-04 by mouth ity of tablet 00:00: in the [place] 00 morning. [facility] clonazePAM 2022-0 Yes 1mg Take 1 mg [facility] 1 mg tablet 8-04 by mouth ity of 00:00: in the [place] 00 morning. [facility] amitriptyli 2022-0 Yes 10mg Take 10 mg [facility] 10 mg 8-04 by mouth ity of tablet 00:00: in the [place] morning. [facility] clonazePAM 2022-0 Yes 1mg Take 1 mg [facility] 1 mg tablet 8-04 by mouth ity of 00:00: in the [place] morning. [facility] amitriptyli 2022-0 Yes 10mg Take 10 mg [facility] 10 mg 8-04 by mouth ity of tablet 00:00: in the [place] morning. [facility] clonazePAM 2022-0 Yes 1mg Take 1 mg [facility] 1 mg tablet 8-04 by mouth ity of 00:00: in the [place] 00 morning. [facility] amitriptyli 2022-0 Yes 10mg Take 10 mg [facility] 10 mg 8-04 by mouth ity of tablet 00:00: in the [place] morning. [facility] clonazePAM 2022-0 Yes 1mg Take 1 mg [facility] 1 mg tablet 8-04 by mouth ity of 00:00: in the [place] morning. [facility] amitriptyli 2022-0 Yes 10mg Take 10 mg [facility] 10 mg 8-04 by mouth ity of tablet 00:00: in the [place] 00 morning. [facility] clonazePAM 2022-0 Yes 1mg Take 1 mg [facility] 1 mg tablet 8-04 by mouth ity of 00:00: in the [place] morning. [facility] amitriptyli 2022-0 Yes 10mg Take 10 mg [facility] 10 mg 8-04 by mouth ity of tablet 00:00: in the [place] 00 morning. [facility] clonazePAM 2022-0 Yes 1mg Take 1 mg [facility] 1 mg tablet 8-04 by mouth ity of 00:00: in the [place] 00 morning. [facility] amitriptyli 2022-0 Yes 10mg Take 10 mg [facility] 10 mg 8-04 by mouth ity of tablet 00:00: in the [place] 00 morning. [facility] clonazePAM 2022-0 Yes 1mg Take 1 mg [facility] 1 mg tablet 8-04 by mouth ity of 00:00: in the [place] 00 morning. [facility] amitriptyli 2022-0 Yes 10mg Take 10 mg [facility] 10 mg 8-04 by mouth ity of tablet 00:00: in the [place] 00 morning. [facility] clonazePAM 2022-0 Yes 1mg Take 1 mg [facility] 1 mg tablet 8-04 by mouth ity of 00:00: in the [place] morning. [facility] amitriptyli 2022-0 Yes 10mg Take 10 mg [facility] 10 mg 8-04 by mouth ity of tablet 00:00: in the [place] morning. [facility] clonazePAM 2022-0 Yes 1mg Take 1 mg [facility] 1 mg tablet 8-04 by mouth ity of 00:00: in the [place] morning. [facility] amitriptyli 2022-0 Yes 10mg Take 10 mg [facility] 10 mg 8-04 by mouth ity of tablet 00:00: in the [place] morning. [facility] clonazePAM 2022-0 Yes 1mg Take 1 mg [facility] 1 mg tablet 8-04 by mouth ity of 00:00: in the [place] morning. [facility] amitriptyli 2022-0 Yes 10mg Take 10 mg [facility] 10 mg 8-04 by mouth ity of tablet 00:00: in the [place] morning. [facility] clonazePAM 2022-0 Yes 1mg Take 1 mg [facility] 1 mg tablet 8-04 by mouth ity of 00:00: in the [place] 00 morning. [facility] amitriptyli 2022-0 Yes 10mg Take 10 mg [facility] 10 mg 8-04 by mouth ity of tablet 00:00: in the [place] morning. [facility] clonazePAM 2022-0 Yes 1mg Take 1 mg [facility] 1 mg tablet 8-04 by mouth ity of 00:00: in the [place] morning. [facility] amitriptyli 2022-0 Yes 10mg Take 10 mg [facility] 10 mg 8-04 by mouth ity of tablet 00:00: in the [place] 00 morning. [facility] clonazePAM 2022-0 Yes 1mg Take 1 mg [facility] 1 mg tablet 8-04 by mouth ity of 00:00: in the [place] morning. [facility] amitriptyli 2022-0 Yes 10mg Take 10 mg [facility] 10 mg 8-04 by mouth ity of tablet 00:00: in the [place] morning. [facility] clonazePAM 2022-0 Yes 1mg Take 1 mg [facility] 1 mg tablet 8-04 by mouth ity of 00:00: in the [place] morning. [facility] amitriptyli 2022-0 Yes 10mg Take 10 mg [facility] 10 mg 8-04 by mouth ity of tablet 00:00: in the [place] morning. [facility] clonazePAM 2022-0 Yes 1mg Take 1 mg [facility] 1 mg tablet 8-04 by mouth ity of 00:00: in the [place] morning. [facility] amitriptyli 2022-0 Yes 10mg Take 10 mg [facility] 10 mg 8-04 by mouth ity of tablet 00:00: in the [place] morning. [facility] clonazePAM 2022-0 Yes 1mg Take 1 mg [facility] 1 mg tablet 8-04 by mouth ity of 00:00: in the [place] morning. [facility] amitriptyli 2022-0 Yes 10mg Take 10 mg [facility] 10 mg 8-04 by mouth ity of tablet 00:00: in the [place] morning. [facility] clonazePAM 2-0 Yes 1mg Take 1 mg [facility] 1 mg tablet 8-04 by mouth ity of 00:00: in the [place] morning. [facility] amitriptyli 2-0 Yes 10mg Take 10 mg [facility] 10 mg 8-04 by mouth ity of tablet 00:00: in the [place] morning. [facility] clonazePAM 2022-0 Yes 1mg Take 1 mg [facility] 1 mg tablet 8-04 by mouth ity of 00:00: in the [place] morning. [facility] amitriptyli 2022-0 Yes 10mg Take 10 mg [facility] 10 mg 8-04 by mouth ity of tablet 00:00: in the [place] morning. [facility] clonazePAM 2022-0 Yes 1mg Take 1 mg [facility] 1 mg tablet 8-04 by mouth ity of 00:00: in the [place] 00 morning. [facility] amitriptyli 2022-0 Yes 10mg Take 10 mg [facility] 10 mg 8-04 by mouth ity of tablet 00:00: in the [place] morning. [facility] clonazePAM 2022-0 Yes 1mg Take 1 mg [facility] 1 mg tablet 8-04 by mouth ity of 00:00: in the [place] 00 morning. [facility] amitriptyli 2022-0 Yes 10mg Take 10 mg [facility] 10 mg 8-04 by mouth ity of tablet 00:00: in the [place] 00 morning. [facility] clonazePAM 2022-0 Yes 1mg Take 1 mg [facility] 1 mg tablet 8-04 by mouth ity of 00:00: in the [place] morning. [facility] amitriptyli 2022-0 Yes 10mg Take 10 mg [facility] 10 mg 8-04 by mouth ity of tablet 00:00: in the [place] morning. [facility] clonazePAM 2022-0 Yes 1mg Take 1 mg [facility] 1 mg tablet 8-04 by mouth ity of 00:00: in the [place] morning. [facility] amitriptyli 2022-0 Yes 10mg Take 10 mg [facility] 10 mg 8-04 by mouth ity of tablet 00:00: in the [place] morning. [facility] clonazePAM 2022-0 Yes 1mg Take 1 mg [facility] 1 mg tablet 8-04 by mouth ity of 00:00: in the [place] morning. [facility] amitriptyli 2022-0 Yes 10mg Take 10 mg [facility] 10 mg 8-04 by mouth ity of tablet 00:00: in the [place] 00 morning. [facility] clonazePAM 2022-0 Yes 1mg Take 1 mg [facility] 1 mg tablet 8-04 by mouth ity of 00:00: in the [place] 00 morning. [facility] amitriptyli 2022-0 Yes 10mg Take 10 mg [facility] 10 mg 8-04 by mouth ity of tablet 00:00: in the [place] 00 morning. [facility] clonazePAM 2022-0 Yes 1mg Take 1 mg [facility] 1 mg tablet 8-04 by mouth ity of 00:00: in the [place] 00 morning. [facility] amitriptyli 2022-0 Yes 10mg Take 10 mg [facility] 10 mg 8-04 by mouth ity of tablet 00:00: in the [place] 00 morning. [facility] clonazePAM 2022-0 Yes 1mg Take 1 mg [facility] 1 mg tablet 8-04 by mouth ity of 00:00: in the [place] 00 morning. [facility] amitriptyli 2022-0 Yes 10mg Take 10 mg [facility] 10 mg 8-04 by mouth ity of tablet 00:00: in the [place] morning. [facility] clonazePAM 2022-0 Yes 1mg Take 1 mg [facility] 1 mg tablet 8-04 by mouth ity of 00:00: in the [place] morning. [facility] amitriptyli 2022-0 Yes 10mg Take 10 mg [facility] 10 mg 8-04 by mouth ity of tablet 00:00: in the [place] morning. [facility] clonazePAM 2022-0 Yes 1mg Take 1 mg [facility] 1 mg tablet 8-04 by mouth ity of 00:00: in the [place] morning. [facility] clonazePAM 2022-0 Yes 1mg Take 1 mg [facility] 1 mg tablet 8-04 by mouth ity of 00:00: in the [place] morning. [facility] clonazePAM 2022-0 Yes 1mg Take 1 mg [facility] 1 mg tablet 8-04 by mouth ity of 00:00: in the [place] morning. [facility] clonazePAM 2022-0 Yes 1mg Take 1 mg [facility] 1 mg tablet 8-04 by mouth ity of 00:00: in the [place] morning. [facility] clonazePAM 2022-0 Yes 1mg Take 1 mg [facility] 1 mg tablet 8-04 by mouth ity of 00:00: in the [place] morning. [facility] clonazePAM 2022-0 Yes 1mg Take 1 mg [facility] 1 mg tablet 8-04 by mouth ity of 00:00: in the [place] morning. [facility] clonazePAM 2022-0 Yes 1mg Take 1 mg [facility] 1 mg tablet 8-04 by mouth ity of 00:00: in the [place] morning. [facility] clonazePAM 2022-0 Yes 1mg Take 1 mg [facility] 1 mg tablet 8-04 by mouth ity of 00:00: in the [place] morning. [facility] clonazePAM 2022-0 Yes 1mg Take 1 mg [facility] 1 mg tablet 8-04 by mouth ity of 00:00: in the [place] morning. [facility] clonazePAM 2022-0 Yes 1mg Take 1 mg [facility] 1 mg tablet 8-04 by mouth ity of 00:00: in the [place] morning. [facility] clonazePAM 2022-0 Yes 1mg Take 1 mg [facility] 1 mg tablet 8-04 by mouth ity of 00:00: in the [place] morning. [facility] clonazePAM 2022-0 Yes 1mg Take 1 mg [facility] 1 mg tablet 8-04 by mouth ity of 00:00: in the [place] morning. [facility] clonazePAM 2022-0 Yes 1mg Take 1 mg [facility] 1 mg tablet 8-04 by mouth ity of 00:00: in the [place] morning. [facility] clonazePAM 2022-0 Yes 1mg Take 1 mg [facility] 1 mg tablet 8-04 by mouth ity of 00:00: in the [place] morning. [facility] clonazePAM 2022-0 Yes 1mg Take 1 mg [facility] 1 mg tablet 8-04 by mouth ity of 00:00: in the [place] morning. [facility] clonazePAM 2022-0 Yes 1mg Take 1 mg [facility] 1 mg tablet 8-04 by mouth ity of 00:00: in the [place] morning. [facility] clonazePAM 2022-0 Yes 1mg Take 1 mg [facility] 1 mg tablet 8-04 by mouth ity of 00:00: in the [place] morning. [facility] clonazePAM 2022-0 Yes 1mg Take 1 mg [facility] 1 mg tablet 8-04 by mouth ity of 00:00: in the [place] morning. [facility] clonazePAM 2022-0 Yes 1mg Take 1 mg [facility] 1 mg tablet 8-04 by mouth ity of 00:00: in the [place] morning. [facility] clonazePAM 2022-0 Yes 1mg Take 1 mg [facility] 1 mg tablet 8-04 by mouth ity of 00:00: in the [place] morning. [facility] clonazePAM 2022-0 Yes 1mg Take 1 mg [facility] 1 mg tablet 8-04 by mouth ity of 00:00: in the [place] morning. [facility] clonazePAM 2022-0 Yes 1mg Take 1 mg [facility] 1 mg tablet 8-04 by mouth ity of 00:00: in the [place] morning. [facility] clonazePAM 2022-0 Yes 1mg Take 1 mg [facility] 1 mg tablet 8-04 by mouth ity of 00:00: in the [place] morning. [facility] clonazePAM 2022-0 Yes 1mg Take 1 mg [facility] 1 mg tablet 8-04 by mouth ity of 00:00: in the [place] 00 morning. [facility] clonazePAM 2022-0 Yes 1mg Take 1 mg [facility] 1 mg tablet 8-04 by mouth ity of 00:00: in the [place] morning. [facility] clonazePAM 2022-0 Yes 1mg Take 1 mg [facility] 1 mg tablet 8-04 by mouth ity of 00:00: in the [place] morning. [facility] clonazePAM 2022-0 Yes 1mg Take 1 mg [facility] 1 mg tablet 8-04 by mouth ity of 00:00: in the [place] morning. [facility] clonazePAM 2022-0 Yes 1mg Take 1 mg [facility] 1 mg tablet 8-04 by mouth ity of 00:00: in the [place] morning. [facility] clonazePAM 2022-0 Yes 1mg Take 1 mg [facility] 1 mg tablet 8-04 by mouth ity of 00:00: in the [place] morning. [facility] clonazePAM 2022-0 Yes 1mg Take 1 mg [facility] 1 mg tablet 8-04 by mouth ity of 00:00: in the [place] morning. [facility] clonazePAM 2022-0 Yes 1mg Take 1 mg [facility] 1 mg tablet 8-04 by mouth ity of 00:00: in the [place] morning. [facility] amitriptyli 2-0 2023- No 10mg Take 10 mg [facility] ne 10 mg 02-09 by mouth ity of tablet 00:00: 00:00 in the [place] 00 :00 morning. [facility] amitriptyli 2-0 3- No 10mg Take 10 mg [facility] ne 10 mg 02-09 by mouth ity of tablet 00:00: 00:00 in the [place] 00 :00 morning. [facility] pantoprazol 2021-0 Yes 40mg Take 40 mg [facility] e 7-21 by mouth [place] (PROTONIX) 00:00: daily. of 40 MG 00 Medicin tablet e pantoprazol 2021-0 Yes 40mg Take 40 mg [facility] e 7-21 by mouth [place] (PROTONIX) 00:00: daily. of 40 MG 00 Medicin tablet e pramipexole 2021-0 Yes TAKE 1 [facility] (MIRAPEX) 7-15 TABLET BY [facility] 0.25 MG 00:00: MOUTH of tablet 00 EVERY Medicin MORNING e AND 1 TABLET EVERY EVENING pramipexole 2021-0 Yes TAKE 1 [facility] (MIRAPEX) 7-15 TABLET BY Colle [facility] 0.25 MG 00:00: MOUTH of tablet 00 EVERY Medicin MORNING e AND 1 TABLET EVERY EVENING pramipexole 2021-0 Yes [id number] .25mg Take 1 [facility] 0.25 mg 7-15 tablet by ity of tablet 00:00: mouth in [place] [address] the [facility] morning [place] and 1 tablet in the evening. For restless leg syndrome pramipexole 2021-0 Yes [id number] .25mg Take 1 [facility] 0.25 mg 7-15 tablet by ity of tablet 00:00: mouth in [address] and 1 tablet in the evening. For restless leg syndrome pramipexole 2021-0 Yes [id number] .25mg Take 1 [facility] 0.25 mg 7-15 tablet by ity of tablet 00:00: mouth in [address] and 1 tablet in the evening. For restless leg syndrome pramipexole 2021-0 Yes [id number] .25mg Take 1 [facility] 0.25 mg 7-15 tablet by ity of tablet 00:00: mouth in [address] morning [place] and 1 tablet in the evening. For restless leg syndrome pramipexole 2021-0 Yes [id number] .25mg Take 1 [facility] 0.25 mg 7-15 tablet by ity of tablet 00:00: mouth in [address] morning [place] and 1 tablet in the evening. For restless leg syndrome pramipexole 2-0 Yes [id number] .25mg Take 1 [facility] 0.25 mg 7-15 tablet by ity of tablet 00:00: mouth in [address] morning [place] and 1 tablet in the evening. For restless leg syndrome pramipexole 2-0 Yes [id number] .25mg Take 1 [facility] 0.25 mg 7-15 tablet by ity of tablet 00:00: mouth in [address] morning [place] and 1 tablet in the evening. For restless leg syndrome pramipexole 2-0 Yes [id number] .25mg Take 1 [facility] 0.25 mg 7-15 tablet by ity of tablet 00:00: mouth in [address] Medical morning [place] and 1 tablet in the evening. For restless leg syndrome pramipexole 2022-0 Yes [id number] .25mg Take 1 [facility] 0.25 mg 7-15 tablet by ity of tablet 00:00: mouth in [place] [address] the [facility] morning [place] and 1 tablet in the evening. For restless leg syndrome pramipexole 2022-0 Yes [id number] .25mg Take 1 [facility] 0.25 mg 7-15 tablet by ity of tablet 00:00: mouth in [place] [address] the [facility] morning [place] and 1 tablet in the evening. For restless leg syndrome pramipexole 2022-0 Yes [id number] .25mg Take 1 [facility] 0.25 mg 7-15 tablet by ity of tablet 00:00: mouth in [address] morning [place] and 1 tablet in the evening. For restless leg syndrome pramipexole 2022-0 Yes [id number] .25mg Take 1 [facility] 0.25 mg 7-15 tablet by ity of tablet 00:00: mouth in [address] and 1 tablet in the evening. For restless leg syndrome pramipexole 2022-0 Yes [id number] .25mg Take 1 [facility] 0.25 mg 7-15 tablet by ity of tablet 00:00: mouth in [address] morning [place] and 1 tablet in the evening. For restless leg syndrome pramipexole 2022-0 Yes [id number] .25mg Take 1 [facility] 0.25 mg 7-15 tablet by ity of tablet 00:00: mouth in [address] morning [place] and 1 tablet in the evening. For restless leg syndrome pramipexole 2022-0 Yes [id number] .25mg Take 1 [facility] 0.25 mg 7-15 tablet by ity of tablet 00:00: mouth in [address] morning [place] and 1 tablet in the evening. For restless leg syndrome pramipexole 2022-0 Yes [id number] .25mg Take 1 [facility] 0.25 mg 7-15 tablet by ity of tablet 00:00: mouth in [address] morning [place] and 1 tablet in the evening. For restless leg syndrome pramipexole 2022-0 Yes [id number] .25mg Take 1 [facility] 0.25 mg 7-15 tablet by ity of tablet 00:00: mouth in [place] [address] the [facility] morning [place] and 1 tablet in the evening. For restless leg syndrome pramipexole 2022-0 Yes [id number] .25mg Take 1 [facility] 0.25 mg 7-15 tablet by ity of tablet 00:00: mouth in [place] [address] the [facility] morning [place] and 1 tablet in the evening. For restless leg syndrome pramipexole 2022-0 Yes [id number] .25mg Take 1 [facility] 0.25 mg 7-15 tablet by ity of tablet 00:00: mouth in [place] [address] the [facility] morning [place] and 1 tablet in the evening. For restless leg syndrome pramipexole 2022-0 Yes [id number] .25mg Take 1 [facility] 0.25 mg 7-15 tablet by ity of tablet 00:00: mouth in [address] morning [place] and 1 tablet in the evening. For restless leg syndrome pramipexole 2022-0 Yes [id number] .25mg Take 1 [facility] 0.25 mg 7-15 tablet by ity of tablet 00:00: mouth in [address] and 1 tablet in the evening. For restless leg syndrome pramipexole 2022-0 Yes [id number] .25mg Take 1 [facility] 0.25 mg 7-15 tablet by ity of tablet 00:00: mouth in [address] and 1 tablet in the evening. For restless leg syndrome pramipexole 2022-0 Yes [id number] .25mg Take 1 [facility] 0.25 mg 7-15 tablet by ity of tablet 00:00: mouth in [address] and 1 tablet in the evening. For restless leg syndrome pramipexole 2022-0 Yes [id number] .25mg Take 1 [facility] 0.25 mg 7-15 tablet by ity of tablet 00:00: mouth in [address] morning [place] and 1 tablet in the evening. For restless leg syndrome pramipexole 2022-0 Yes [id number] .25mg Take 1 [facility] 0.25 mg 7-15 tablet by ity of tablet 00:00: mouth in [address] morning [place] and 1 tablet in the evening. For restless leg syndrome pramipexole 2022-0 Yes [id number] .25mg Take 1 [facility] 0.25 mg 7-15 tablet by ity of tablet 00:00: mouth in [place] [address] the [facility] morning [place] and 1 tablet in the evening. For restless leg syndrome pramipexole 2022-0 Yes [id number] .25mg Take 1 [facility] 0.25 mg 7-15 tablet by ity of tablet 00:00: mouth in [place] [address] the [facility] morning [place] and 1 tablet in the evening. For restless leg syndrome pramipexole 2022-0 Yes [id number] .25mg Take 1 [facility] 0.25 mg 7-15 tablet by ity of tablet 00:00: mouth in [place] [address] the [facility] morning [place] and 1 tablet in the evening. For restless leg syndrome pramipexole 2022-0 Yes [id number] .25mg Take 1 [facility] 0.25 mg 7-15 tablet by ity of tablet 00:00: mouth in [address] and 1 tablet in the evening. For restless leg syndrome pramipexole 2022-0 Yes [id number] .25mg Take 1 [facility] 0.25 mg 7-15 tablet by ity of tablet 00:00: mouth in [address] and 1 tablet in the evening. For restless leg syndrome pramipexole 2022-0 Yes [id number] .25mg Take 1 [facility] 0.25 mg 7-15 tablet by ity of tablet 00:00: mouth in [address] and 1 tablet in the evening. For restless leg syndrome pramipexole 2022-0 Yes [id number] .25mg Take 1 [facility] 0.25 mg 7-15 tablet by ity of tablet 00:00: mouth in [address] morning [place] and 1 tablet in the evening. For restless leg syndrome pramipexole 2022-0 Yes [id number] .25mg Take 1 [facility] 0.25 mg 7-15 tablet by ity of tablet 00:00: mouth in [address] morning [place] and 1 tablet in the evening. For restless leg syndrome pramipexole 2022-0 Yes [id number] .25mg Take 1 [facility] 0.25 mg 7-15 tablet by ity of tablet 00:00: mouth in [address] morning [place] and 1 tablet in the evening. For restless leg syndrome pramipexole 2022-0 Yes [id number] .25mg Take 1 [facility] 0.25 mg 7-15 tablet by ity of tablet 00:00: mouth in [place] [address] the Medical morning Branch and 1 tablet in the evening. For restless leg syndrome pramipexole 2022-0 Yes [id number] .25mg Take 1 [facility] 0.25 mg 7-15 tablet by ity of tablet 00:00: mouth in [place] [address] the Medical morning [place] and 1 tablet in the evening. For restless leg syndrome pramipexole 2022-0 Yes [id number] .25mg Take 1 [facility] 0[facility] mg 7-15 tablet by [facility] of tablet 00:00: mouth in [place] [address] the [facility] morning [place] and 1 tablet in the evening. For restless leg syndrome pramipexole 2022-0 Yes [id number] .25mg Take 1 [facility] 0.25 mg 7-15 tablet by it[facility] of tablet 00:00: mouth in [place] [address] the [facility] morning [place] and 1 tablet in the evening. For restless leg syndrome pramipexole 2022-0 Yes [id number] .25mg Take 1 [facility] 0.25 mg 7-15 tablet by it[facility] of tablet 00:00: mouth in [place] [address] the [facility] morning [place] and 1 tablet in the evening. For restless leg syndrome pramipexole 2-0 Yes [id number] .25mg Take 1 [facility] 0.25 mg 7-15 tablet by it[facility] of tablet 00:00: mouth in [place] [address] the [facility] morning [place] and 1 tablet in the evening. For restless leg syndrome pramipexole 2022-0 Yes [id number] .25mg Take 1 [facility] 0.25 mg 7-15 tablet by it[facility] of tablet 00:00: mouth in [address] morning [place] and 1 tablet in the evening. For restless leg syndrome pramipexole 2022-0 Yes [id number] .25mg Take 1 [facility] 0.25 mg 7-15 tablet by [facility] of tablet 00:00: mouth in [place] [address] the [facility] morning [place] and 1 tablet in the evening. For restless leg syndrome pramipexole 2022-0 Yes [id number] .25mg Take 1 [facility] 0.25 mg 7-15 tablet by it[facility] of tablet 00:00: mouth in [address] morning [place] and 1 tablet in the evening. For restless leg syndrome pramipexole 2022-0 Yes [id number] .25mg Take 1 [facility] 0.25 mg 7-15 tablet by [facility] of tablet 00:00: mouth in [place] [address] the [facility] morning [facility] and 1 tablet in the evening. For restless leg syndrome pramipexole 2022-0 Yes [id number] .25mg Take 1 [facility] 0[facility]25 mg 7-15 tablet by [facility] of tablet 00:00: mouth in [place] [address] the [facility] morning [facility] and 1 tablet in the evening. For restless leg syndrome pramipexole 2022-0 Yes [id number] .25mg Take 1 [facility] 0.25 mg 7-15 tablet by [facility] of tablet 00:00: mouth in [place] [address] the Medical morning [facility] and 1 tablet in the evening. For restless leg syndrome pramipexole 2022-0 Yes [id number] .25mg Take 1 [facility] 0.25 mg 7-15 tablet by [facility] of tablet 00:00: mouth in [place] [address] the [facility] morning [place] and 1 tablet in the evening. For restless leg syndrome pramipexole 2-0 Yes [id number] .25mg Take 1 [facility] 0.25 mg 7-15 tablet by [facility] of tablet 00:00: mouth in [address] morning [place] and 1 tablet in the evening. For restless leg syndrome pramipexole 2-0 Yes [id number] .25mg Take 1 [facility] 0[facility]25 mg 7-15 tablet by [facility] of tablet 00:00: mouth in [place] [address] the [facility] morning [place] and 1 tablet in the evening. For restless leg syndrome pramipexole 2022-0 Yes [id number] .25mg Take 1 [facility] 0.25 mg 7-15 tablet by [facility] of tablet 00:00: mouth in [address] morning [place] and 1 tablet in the evening. For restless leg syndrome pramipexole 2022-0 Yes [id number] .25mg Take 1 [facility] 0.25 mg 7-15 tablet by [facility] of tablet 00:00: mouth in [place] [address] the [facility] morning [place] and 1 tablet in the evening. For restless leg syndrome pramipexole 2022-0 Yes [id number] .25mg Take 1 [facility] 0.25 mg 7-15 tablet by [facility] of tablet 00:00: mouth in [address] morning [place] and 1 tablet in the evening. For restless leg syndrome pramipexole 2022-0 Yes [id number] .25mg Take 1 [facility] 0.25 mg 7-15 tablet by [facility] of tablet 00:00: mouth in [place] [address] the Medical morning [facility] and 1 tablet in the evening. For restless leg syndrome pramipexole 2022-0 Yes [id number] .25mg Take 1 [facility] 0.25 mg 7-15 tablet by [facility] of tablet 00:00: mouth in [place] [address] the Medical morning [facility] and 1 tablet in the evening. For restless leg syndrome pramipexole 2022-0 Yes [id number] .25mg Take 1 [facility] 0.25 mg 7-15 tablet by [facility] of tablet 00:00: mouth in [place] [address] the Medical morning [place] and 1 tablet in the evening. For restless leg syndrome pramipexole 2-0 Yes [id number] .25mg Take 1 [facility] 0.25 mg 7-15 tablet by [facility] of tablet 00:00: mouth in [place] [address] the [facility] morning [place] and 1 tablet in the evening. For restless leg syndrome pramipexole 2022-0 Yes [id number] .25mg Take 1 [facility] 0.25 mg 7-15 tablet by [facility] of tablet 00:00: mouth in [place] [address] the [facility] morning [place] and 1 tablet in the evening. For restless leg syndrome pramipexole 2-0 Yes [id number] .25mg Take 1 [facility] 0.25 mg 7-15 tablet by [facility] of tablet 00:00: mouth in [place] [address] the [facility] morning [place] and 1 tablet in the evening. For restless leg syndrome pramipexole 2-0 Yes [id number] .25mg Take 1 [facility] 0.25 mg 7-15 tablet by it[facility] of tablet 00:00: mouth in [address] morning [place] and 1 tablet in the evening. For restless leg syndrome pramipexole 2022-0 Yes [id number] .25mg Take 1 [facility] 0.25 mg 7-15 tablet by [facility] of tablet 00:00: mouth in [address] morning [place] and 1 tablet in the evening. For restless leg syndrome pramipexole 2022-0 Yes [id number] .25mg Take 1 [facility] 0.25 mg 7-15 tablet by [facility] of tablet 00:00: mouth in [address] morning [place] and 1 tablet in the evening. For restless leg syndrome pramipexole 2022-0 Yes [id number] .25mg Take 1 [facility] 0.25 mg 7-15 tablet by it[facility] of tablet 00:00: mouth in [place] [address] the Medical morning [facility] and 1 tablet in the evening. For restless leg syndrome pramipexole 2022-0 Yes [id number] .25mg Take 1 [facility] 0.25 mg 7-15 tablet by [facility] of tablet 00:00: mouth in [place] [address] the Medical morning [facility] and 1 tablet in the evening. For restless leg syndrome pramipexole 2022-0 Yes [id number] .25mg Take 1 [facility] 0.25 mg 7-15 tablet by it[facility] of tablet 00:00: mouth in [place] [address] the Medical morning [facility] and 1 tablet in the evening. For restless leg syndrome pramipexole 2022-0 Yes [id number] .25mg Take 1 [facility] 0.25 mg 7-15 tablet by it[facility] of tablet 00:00: mouth in [place] [address] the [facility] morning [place] and 1 tablet in the evening. For restless leg syndrome pramipexole 2022-0 Yes [id number] .25mg Take 1 [facility] 0.25 mg 7-15 tablet by [facility] of tablet 00:00: mouth in [place] [address] the [facility] morning [place] and 1 tablet in the evening. For restless leg syndrome pramipexole 2022-0 Yes [id number] .25mg Take 1 [facility] 0.25 mg 7-15 tablet by [facility] of tablet 00:00: mouth in [place] [address] the [facility] morning [facility] and 1 tablet in the evening. For restless leg syndrome pramipexole 2022-0 Yes [id number] .25mg Take 1 [facility] 0.25 mg 7-15 tablet by [facility] of tablet 00:00: mouth in [place] [address] the [facility] morning [place] and 1 tablet in the evening. For restless leg syndrome pramipexole 2022-0 Yes [id number] .25mg Take 1 [facility] 0.25 mg 7-15 tablet by it[facility] of tablet 00:00: mouth in [address] morning [place] and 1 tablet in the evening. For restless leg syndrome pramipexole 2022-0 Yes [id number] .25mg Take 1 [facility] 0.25 mg 7-15 tablet by it[facility] of tablet 00:00: mouth in [address] morning [place] and 1 tablet in the evening. For restless leg syndrome pramipexole 2022-0 Yes [id number] .25mg Take 1 [facility] 0.25 mg 7-15 tablet by it[facility] of tablet 00:00: mouth in [place] [address] the [facility] morning [place] and 1 tablet in the evening. For restless leg syndrome pramipexole 2022-0 Yes [id number] .25mg Take 1 [facility] 0.25 mg 7-15 tablet by [facility] of tablet 00:00: mouth in [place] [address] the [facility] morning [place] and 1 tablet in the evening. For restless leg syndrome pramipexole 2022-0 Yes [id number] .25mg Take 1 [facility] 0.25 mg 7-15 tablet by [facility] of tablet 00:00: mouth in [place] [address] the [facility] morning [place] and 1 tablet in the evening. For restless leg syndrome pramipexole 2022-0 Yes [id number] .25mg Take 1 [facility] 0.25 mg 7-15 tablet by [facility] of tablet 00:00: mouth in [place] [address] the [facility] morning [place] and 1 tablet in the evening. For restless leg syndrome pramipexole 2022-0 Yes [id number] .25mg Take 1 [facility] 0.25 mg 7-15 tablet by [facility] of tablet 00:00: mouth in [place] [address] the [facility] morning [place] and 1 tablet in the evening. For restless leg syndrome pramipexole 2-0 Yes [id number] .25mg Take 1 [facility] 0.25 mg 7-15 tablet by [facility] of tablet 00:00: mouth in [place] [address] the [facility] morning [place] and 1 tablet in the evening. For restless leg syndrome pramipexole 2022-0 Yes [id number] .25mg Take 1 [facility] 0.25 mg 7-15 tablet by [facility] of tablet 00:00: mouth in [place] [address] the [facility] morning [place] and 1 tablet in the evening. For restless leg syndrome pramipexole 2022-0 Yes [id number] .25mg Take 1 [facility] 0.25 mg 7-15 tablet by it[facility] of tablet 00:00: mouth in [address] and 1 tablet in the evening. For restless leg syndrome pramipexole 2022-0 Yes [id number] .25mg Take 1 [facility] 0.25 mg 7-15 tablet by [facility] of tablet 00:00: mouth in [address] morning [place] and 1 tablet in the evening. For restless leg syndrome pramipexole 2022-0 Yes [id number] .25mg Take 1 [facility] 0.25 mg 7-15 tablet by [facility] of tablet 00:00: mouth in [place] [address] the Medical morning [facility] and 1 tablet in the evening. For restless leg syndrome pramipexole 2-0 Yes [id number] .25mg Take 1 [facility] 0.25 mg 7-15 tablet by [facility] of tablet 00:00: mouth in [place] [address] the [facility] morning [facility] and 1 tablet in the evening. For restless leg syndrome pramipexole 2022-0 Yes [id number] .25mg Take 1 [facility] 0.25 mg 7-15 tablet by it[facility] of tablet 00:00: mouth in [place] [address] the [facility] morning [place] and 1 tablet in the evening. For restless leg syndrome pramipexole 2-0 Yes [id number] .25mg Take 1 [facility] 0.25 mg 7-15 tablet by [facility] of tablet 00:00: mouth in [place] [address] the [facility] morning [place] and 1 tablet in the evening. For restless leg syndrome pramipexole 2-0 Yes [id number] .25mg Take 1 [facility] 0.25 mg 7-15 tablet by it[facility] of tablet 00:00: mouth in [place] [address] the [facility] morning [place] and 1 tablet in the evening. For restless leg syndrome pramipexole 2-0 Yes [id number] .25mg Take 1 [facility] 0.25 mg 7-15 tablet by it[facility] of tablet 00:00: mouth in [place] [address] the [facility] morning [place] and 1 tablet in the evening. For restless leg syndrome pramipexole 2022-0 Yes [id number] .25mg Take 1 [facility] 0.25 mg 7-15 tablet by it[facility] of tablet 00:00: mouth in [address] morning [place] and 1 tablet in the evening. For restless leg syndrome pramipexole 2-0 Yes [id number] .25mg Take 1 [facility] 0.25 mg 7-15 tablet by it[facility] of tablet 00:00: mouth in [address] morning [place] and 1 tablet in the evening. For restless leg syndrome pramipexole 2022-0 Yes [id number] .25mg Take 1 [facility] 0.25 mg 7-15 tablet by it[facility] of tablet 00:00: mouth in [address] morning [place] and 1 tablet in the evening. For restless leg syndrome pramipexole 2022-0 Yes [id number] .25mg Take 1 [facility] 0.25 mg 7-15 tablet by it[facility] of tablet 00:00: mouth in [place] [address] the [facility] morning [place] and 1 tablet in the evening. For restless leg syndrome pramipexole 2022-0 Yes [id number] .25mg Take 1 [facility] 0.25 mg 7-15 tablet by it[facility] of tablet 00:00: mouth in [place] [address] the [facility] morning [facility] and 1 tablet in the evening. For restless leg syndrome pramipexole 2022-0 Yes [id number] .25mg Take 1 [facility] 0.25 mg 7-15 tablet by it[facility] of tablet 00:00: mouth in [place] [address] the [facility] morning [place] and 1 tablet in the evening. For restless leg syndrome pramipexole 2022-0 Yes [id number] .25mg Take 1 [facility] 0.25 mg 7-15 tablet by it[facility] of tablet 00:00: mouth in [place] [address] the [facility] morning [place] and 1 tablet in the evening. For restless leg syndrome pramipexole 2022-0 Yes [id number] .25mg Take 1 [facility] 0.25 mg 7-15 tablet by it[facility] of tablet 00:00: mouth in [place] [address] the [facility] morning [place] and 1 tablet in the evening. For restless leg syndrome pramipexole 2-0 Yes [id number] .25mg Take 1 [facility] 0.25 mg 7-15 tablet by it[facility] of tablet 00:00: mouth in [place] [address] the [facility] morning [place] and 1 tablet in the evening. For restless leg syndrome pramipexole 2022-0 Yes [id number] .25mg Take 1 [facility] 0.25 mg 7-15 tablet by it[facility] of tablet 00:00: mouth in [address] morning [place] and 1 tablet in the evening. For restless leg syndrome pramipexole 2022-0 Yes [id number] .25mg Take 1 [facility] 0.25 mg 7-15 tablet by ity of tablet 00:00: mouth in [address] morning [place] and 1 tablet in the evening. For restless leg syndrome pramipexole 2022-0 Yes [id number] .25mg Take 1 [facility] 0.25 mg 7-15 tablet by ity of tablet 00:00: mouth in [address] morning [place] and 1 tablet in the evening. For restless leg syndrome pramipexole 2022-0 Yes [id number] .25mg Take 1 [facility] 0.25 mg 7-15 tablet by ity of tablet 00:00: mouth in [place] [address] the Medical morning [facility] and 1 tablet in the evening. For restless leg syndrome pramipexole 2022-0 Yes [id number] .25mg Take 1 [facility] 0.25 mg 7-15 tablet by ity of tablet 00:00: mouth in [place] 00 the [facility] morning [facility] and 1 tablet in the evening. For restless leg syndrome pramipexole 2022-0 Yes [id number] .25mg Take 1 [facility] 0.25 mg 7-15 tablet by ity of tablet 00:00: mouth in [place] [address] the [facility] morning [place] and 1 tablet in the evening. For restless leg syndrome pramipexole 2022-0 Yes [id number] .25mg Take 1 [facility] 0.25 mg 7-15 tablet by ity of tablet 00:00: mouth in [place] [address] the [facility] morning [place] and 1 tablet in the evening. For restless leg syndrome pramipexole 2022-0 Yes [id number] .25mg Take 1 [facility] 0.25 mg 7-15 tablet by ity of tablet 00:00: mouth in [place] [address] the [facility] morning [place] and 1 tablet in the evening. For restless leg syndrome pramipexole 2022-0 Yes [id number] .25mg Take 1 [facility] 0.25 mg 7-15 tablet by it[facility] of tablet 00:00: mouth in [place] [address] the [facility] morning [place] and 1 tablet in the evening. For restless leg syndrome pramipexole 2022-0 Yes [id number] .25mg Take 1 [facility] 0.25 mg 7-15 tablet by ity of tablet 00:00: mouth in [place] [address] the [facility] morning [facility] and 1 tablet in the evening. For restless leg syndrome pramipexole 2022-0 Yes [id number] .25mg Take 1 [facility] 0.25 mg 7-15 tablet by ity of tablet 00:00: mouth in [place] [address] the [facility] morning [place] and 1 tablet in the evening. For restless leg syndrome pramipexole 2022-0 Yes [id number] .25mg Take 1 [facility] 0.25 mg 7-15 tablet by ity of tablet 00:00: mouth in [place] 00 the Medical morning [facility] and 1 tablet in the evening. For restless leg syndrome pramipexole 2022-0 Yes [id number] .25mg Take 1 [facility] 0.25 mg 7-15 tablet by ity of tablet 00:00: mouth in [place] [address] the [facility] morning [place] and 1 tablet in the evening. For restless leg syndrome pramipexole 2022-0 Yes [id number] .25mg Take 1 [facility] 0.25 mg 7-15 tablet by ity of tablet 00:00: mouth in [place] [address] the [facility] morning [place] and 1 tablet in the evening. For restless leg syndrome pramipexole 2022-0 Yes [id number] .25mg Take 1 [facility] 0.25 mg 7-15 tablet by ity of tablet 00:00: mouth in [place] [address] the [facility] morning [place] and 1 tablet in the evening. For restless leg syndrome pramipexole 2022-0 Yes [id number] .25mg Take 1 [facility] 0.25 mg 7-15 tablet by ity of tablet 00:00: mouth in [place] [address] the [facility] morning [place] and 1 tablet in the evening. For restless leg syndrome pramipexole 2022-0 Yes [id number] .25mg Take 1 [facility] 0.25 mg 7-15 tablet by ity of tablet 00:00: mouth in [place] [address] the [facility] morning [place] and 1 tablet in the evening. For restless leg syndrome pramipexole 2022-0 Yes [id number] .25mg Take 1 [facility] 0.25 mg 7-15 tablet by ity of tablet 00:00: mouth in [place] [address] the [facility] morning [place] and 1 tablet in the evening. For restless leg syndrome pramipexole 2022-0 Yes [id number] .25mg Take 1 [facility] 0.25 mg 7-15 tablet by ity of tablet 00:00: mouth in [place] [address] the [facility] morning [place] and 1 tablet in the evening. For restless leg syndrome pramipexole 2022-0 Yes [id number] .25mg Take 1 [facility] 0.25 mg 7-15 tablet by ity of tablet 00:00: mouth in [address] and 1 tablet in the evening. For restless leg syndrome pramipexole 2022-0 Yes [id number] .25mg Take 1 [facility] 0.25 mg 7-15 tablet by ity of tablet 00:00: mouth in [address] morning [place] and 1 tablet in the evening. For restless leg syndrome pramipexole 2022-0 Yes [id number] .25mg Take 1 [facility] 0.25 mg 7-15 tablet by ity of tablet 00:00: mouth in [address] morning [place] and 1 tablet in the evening. For restless leg syndrome pramipexole 2022-0 Yes [id number] .25mg Take 1 [facility] 0.25 mg 7-15 tablet by ity of tablet 00:00: mouth in [address] and 1 tablet in the evening. For restless leg syndrome pramipexole 2022-0 Yes [id number] .25mg Take 1 [facility] 0.25 mg 7-15 tablet by ity of tablet 00:00: mouth in [address] and 1 tablet in the evening. For restless leg syndrome pramipexole 2022-0 Yes [id number] .25mg Take 1 [facility] 0.25 mg 7-15 tablet by ity of tablet 00:00: mouth in [address] and 1 tablet in the evening. For restless leg syndrome pramipexole 2022-0 Yes [id number] .25mg Take 1 [facility] 0.25 mg 7-15 tablet by ity of tablet 00:00: mouth in [address] and 1 tablet in the evening. For restless leg syndrome pramipexole 2022-0 Yes [id number] .25mg Take 1 [facility] 0.25 mg 7-15 tablet by ity of tablet 00:00: mouth in [address] and 1 tablet in the evening. For restless leg syndrome pramipexole 2022-0 Yes [id number] .25mg Take 1 [facility] 0.25 mg 7-15 tablet by ity of tablet 00:00: mouth in [address] and 1 tablet in the evening. For restless leg syndrome pramipexole 2022-0 Yes [id number] .25mg Take 1 [facility] 0.25 mg 7-15 tablet by ity of tablet 00:00: mouth in [address] and 1 tablet in the evening. For restless leg syndrome pramipexole 2022-0 Yes [id number] .25mg Take 1 [facility] 0.25 mg 7-15 tablet by ity of tablet 00:00: mouth in [address] and 1 tablet in the evening. For restless leg syndrome pramipexole 2022-0 Yes [id number] .25mg Take 1 [facility] 0.25 mg 7-15 tablet by ity of tablet 00:00: mouth in [place] [address] the [facility] and 1 tablet in the evening. For restless leg syndrome pramipexole 2022-0 Yes [id number] .25mg Take 1 [facility] 0.25 mg 7-15 tablet by ity of tablet 00:00: mouth in [address] and 1 tablet in the evening. For restless leg syndrome pramipexole 2022-0 Yes [id number] .25mg Take 1 [facility] 0.25 mg 7-15 tablet by ity of tablet 00:00: mouth in [address] and 1 tablet in the evening. For restless leg syndrome pramipexole 2022-0 Yes [id number] .25mg Take 1 [facility] 0.25 mg 7-15 tablet by ity of tablet 00:00: mouth in [address] and 1 tablet in the evening. For restless leg syndrome pramipexole 2022-0 Yes [id number] .25mg Take 1 [facility] 0.25 mg 7-15 tablet by ity of tablet 00:00: mouth in [address] and 1 tablet in the evening. For restless leg syndrome pramipexole 2022-0 Yes [id number] .25mg Take 1 [facility] 0.25 mg 7-15 tablet by ity of tablet 00:00: mouth in [address] and 1 tablet in the evening. For restless leg syndrome pramipexole 2022-0 Yes [id number] .25mg Take 1 [facility] 0.25 mg 7-15 tablet by ity of tablet 00:00: mouth in [address] and 1 tablet in the evening. For restless leg syndrome pramipexole 2022-0 Yes [id number] .25mg Take 1 [facility] 0.25 mg 7-15 tablet by ity of tablet 00:00: mouth in [address] and 1 tablet in the evening. For restless leg syndrome pramipexole 2022-0 Yes [id number] .25mg Take 1 [facility] 0.25 mg 7-15 tablet by ity of tablet 00:00: mouth in [address] Medical morning [place] and 1 tablet in the evening. For restless leg syndrome pramipexole 2022-0 Yes [id number] .25mg Take 1 [facility] 0.25 mg 7-15 tablet by ity of tablet 00:00: mouth in [place] [address] the [facility] morning [place] and 1 tablet in the evening. For restless leg syndrome pramipexole 2022-0 Yes [id number] .25mg Take 1 [facility] 0.25 mg 7-15 tablet by ity of tablet 00:00: mouth in [place] [address] the [facility] morning [place] and 1 tablet in the evening. For restless leg syndrome pramipexole 2022-0 Yes [id number] .25mg Take 1 [facility] 0.25 mg 7-15 tablet by ity of tablet 00:00: mouth in [address] morning [place] and 1 tablet in the evening. For restless leg syndrome pramipexole 2022-0 Yes [id number] .25mg Take 1 [facility] 0.25 mg 7-15 tablet by ity of tablet 00:00: mouth in [address] and 1 tablet in the evening. For restless leg syndrome pramipexole 2022-0 Yes [id number] .25mg Take 1 [facility] 0.25 mg 7-15 tablet by ity of tablet 00:00: mouth in [address] morning [place] and 1 tablet in the evening. For restless leg syndrome pramipexole 2022-0 Yes [id number] .25mg Take 1 [facility] 0.25 mg 7-15 tablet by ity of tablet 00:00: mouth in [address] morning [place] and 1 tablet in the evening. For restless leg syndrome pramipexole 2022-0 Yes [id number] .25mg Take 1 [facility] 0.25 mg 7-15 tablet by ity of tablet 00:00: mouth in [address] morning [place] and 1 tablet in the evening. For restless leg syndrome pramipexole 2022-0 Yes [id number] .25mg Take 1 [facility] 0.25 mg 7-15 tablet by ity of tablet 00:00: mouth in [address] morning [place] and 1 tablet in the evening. For restless leg syndrome pramipexole 2022-0 Yes [id number] .25mg Take 1 [facility] 0.25 mg 7-15 tablet by ity of tablet 00:00: mouth in [place] [address] the [facility] morning [place] and 1 tablet in the evening. For restless leg syndrome pramipexole 2022-0 Yes [id number] .25mg Take 1 [facility] 0.25 mg 7-15 tablet by ity of tablet 00:00: mouth in [place] [address] the [facility] morning [place] and 1 tablet in the evening. For restless leg syndrome pramipexole 2022-0 Yes [id number] .25mg Take 1 [facility] 0.25 mg 7-15 tablet by ity of tablet 00:00: mouth in [place] [address] the [facility] morning [place] and 1 tablet in the evening. For restless leg syndrome pramipexole 2022-0 Yes [id number] .25mg Take 1 [facility] 0.25 mg 7-15 tablet by ity of tablet 00:00: mouth in [address] morning [place] and 1 tablet in the evening. For restless leg syndrome pramipexole 2022-0 Yes [id number] .25mg Take 1 [facility] 0.25 mg 7-15 tablet by ity of tablet 00:00: mouth in [address] and 1 tablet in the evening. For restless leg syndrome pramipexole 2022-0 Yes [id number] .25mg Take 1 [facility] 0.25 mg 7-15 tablet by ity of tablet 00:00: mouth in [address] and 1 tablet in the evening. For restless leg syndrome pramipexole 2022-0 Yes [id number] .25mg Take 1 [facility] 0.25 mg 7-15 tablet by ity of tablet 00:00: mouth in [address] and 1 tablet in the evening. For restless leg syndrome pramipexole 2022-0 Yes [id number] .25mg Take 1 [facility] 0.25 mg 7-15 tablet by ity of tablet 00:00: mouth in [address] morning [place] and 1 tablet in the evening. For restless leg syndrome pramipexole 2022-0 Yes [id number] .25mg Take 1 [facility] 0.25 mg 7-15 tablet by ity of tablet 00:00: mouth in [address] morning [place] and 1 tablet in the evening. For restless leg syndrome pramipexole 2022-0 Yes [id number] .25mg Take 1 [facility] 0.25 mg 7-15 tablet by ity of tablet 00:00: mouth in [place] [address] the [facility] morning [place] and 1 tablet in the evening. For restless leg syndrome pramipexole 2022-0 Yes [id number] .25mg Take 1 [facility] 0.25 mg 7-15 tablet by ity of tablet 00:00: mouth in [place] [address] the [facility] morning [place] and 1 tablet in the evening. For restless leg syndrome pramipexole 2022-0 Yes [id number] .25mg Take 1 [facility] 0.25 mg 7-15 tablet by ity of tablet 00:00: mouth in [place] [address] the [facility] morning [place] and 1 tablet in the evening. For restless leg syndrome pramipexole 2022-0 Yes [id number] .25mg Take 1 [facility] 0.25 mg 7-15 tablet by ity of tablet 00:00: mouth in [address] and 1 tablet in the evening. For restless leg syndrome pramipexole 2022-0 Yes [id number] .25mg Take 1 [facility] 0.25 mg 7-15 tablet by ity of tablet 00:00: mouth in [address] and 1 tablet in the evening. For restless leg syndrome pramipexole 2022-0 Yes [id number] .25mg Take 1 [facility] 0.25 mg 7-15 tablet by ity of tablet 00:00: mouth in [address] and 1 tablet in the evening. For restless leg syndrome pramipexole 2022-0 Yes [id number] .25mg Take 1 [facility] 0.25 mg 7-15 tablet by ity of tablet 00:00: mouth in [address] morning [place] and 1 tablet in the evening. For restless leg syndrome pramipexole 2022-0 Yes [id number] .25mg Take 1 [facility] 0.25 mg 7-15 tablet by ity of tablet 00:00: mouth in [address] morning [place] and 1 tablet in the evening. For restless leg syndrome pramipexole 2022-0 Yes [id number] .25mg Take 1 [facility] 0.25 mg 7-15 tablet by ity of tablet 00:00: mouth in [address] morning [place] and 1 tablet in the evening. For restless leg syndrome pramipexole 2022-0 Yes [id number] .25mg Take 1 [facility] 0.25 mg 7-15 tablet by ity of tablet 00:00: mouth in [place] [address] the Medical morning Branch and 1 tablet in the evening. For restless leg syndrome pramipexole 2021-0 Yes [id number] .25mg Take 1 [facility] 0.25 mg 7-15 tablet by ity of tablet 00:00: mouth in [place] [address] the [facility] morning Branch and 1 tablet in the evening. For restless leg syndrome pramipexole 2021-0 Yes [id number] .25mg Take 1 [facility] 0.25 mg 7-15 tablet by ity of tablet 00:00: mouth in [place] [address] the [facility] morning Branch and 1 tablet in the evening. For restless leg syndrome pramipexole 2021-0 Yes [id number] .25mg Take 1 [facility] 0.25 mg 7-15 tablet by ity of tablet 00:00: mouth in [place] [address] the [facility] morning [place] and 1 tablet in the evening. For restless leg syndrome pramipexole 2021-0 Yes [id number] .25mg Take 1 [facility] 0.25 mg 7-15 tablet by ity of tablet 00:00: mouth in [place] [address] the [facility] morning [place] and 1 tablet in the evening. For restless leg syndrome pramipexole 2021-0 Yes [id number] .25mg Take 1 [facility] 0.25 mg 7-15 tablet by ity of tablet 00:00: mouth in [place] [address] the [facility] morning [place] and 1 tablet in the evening. For restless leg syndrome promethazin 2021-0 2022- No [id number] TAKE 1 [facility] e 50 mg 7-04 08-30 TABLET BY ity of tablet 00:00: 00:00 MOUTH [place] 00 :00 EVERY 6 Medical HOURS Branch NEEDED FOR NAUSEA AND VOMITING promethazin 2021-0 2022- No [id number] TAKE 1 [facility] e 50 mg 7-04 08-30 TABLET BY ity of tablet 00:00: 00:00 MOUTH [place] 00 :00 EVERY 6 Medical HOURS Branch NEEDED FOR NAUSEA AND VOMITING furosemide 2021-0 Yes 10mg Take 10 mg U nivers (LASIX 6-27 by mouth ity of ORAL) 09:22: daily. As [place] [address] needed Medical Branch levetiracet 2021-0 Yes 500mg Take 500 U nivers am (KEPPRA 6-27 mg by ity of ORAL) 09:22: mouth 2 [place] [address] (two) Medical times Branch daily. midodrine 5 Yes 5mg Take 5 mg U nivers mg tablet 6-27 by mouth ity of 09:22: daily. As [place] [address] needed Medical Branch furosemide Yes 10mg Take 10 mg U nivers (LASIX 6-27 by mouth ity of ORAL) 09:22: daily. As [place] [address] needed Medical Branch levetiracet Yes 500mg Take 500 U nivers am (KEPPRA 6-27 mg by ity of ORAL) 09:22: mouth 2 [place] [address] (two) Medical times Branch daily. midodrine 5 Yes 5mg Take 5 mg U nivers mg tablet 6-27 by mouth ity of 09:22: daily. As [place] [address] needed Medical Branch fluticasone Yes SHAKE Baylo r (FLONASE) 6-17 LIQUID AND [facility] 50 MCG/ACT 00:00: USE 1 of nasal spray 00 SPRAY IN Medi teodoro EACH e NOSTRIL TWICE DAILY fluticasone Yes SHAKE [facility] (FLONASE) 6-17 LIQUID AND [place] 50 MCG/ACT 00:00: USE 1 of nasal spray 00 SPRAY IN Medi teodoro EACH e NOSTRIL TWICE DAILY FLUTICASONE 0 Yes [id number] SHAKE U nivers PROPIONATE 6-17 LIQUID AND ity of 50 00:00: USE 1 [place] mcg/actuati 00 SPRAY IN Medi janet on nasal EACH Branch spray NOSTRIL TWICE DAILY FLUTICASONE 0 Yes [id number] SHAKE U nivers PROPIONATE 6-17 LIQUID AND ity of 50 00:00: USE 1 [place] mcg/actuati 00 SPRAY IN Medi janet on nasal EACH Branch spray NOSTRIL TWICE DAILY FLUTICASONE 0 Yes [id number] SHAKE U nivers PROPIONATE 6-17 LIQUID AND ity of 50 00:00: USE 1 [place] mcg/actuati 00 SPRAY IN Medi janet on nasal EACH Branch spray NOSTRIL TWICE DAILY FLUTICASONE 2021-0 Yes [id number] SHAKE U nivers PROPIONATE 6-17 LIQUID AND ity of 50 00:00: USE 1 [place] mcg/actuati 00 SPRAY IN Medi janet on nasal EACH Branch spray NOSTRIL TWICE DAILY FLUTICASONE Yes [id number] SHAKE U nivers PROPIONATE 6-17 LIQUID AND ity of 50 00:00: USE 1 [place] mcg/actuati 00 SPRAY IN [facility] on nasal EACH Branch spray NOSTRIL TWICE DAILY FLUTICASONE Yes [id number] SHAKE U nivers PROPIONATE 6-17 LIQUID AND ity of 50 00:00: USE 1 [place] mcg/actuati 00 SPRAY IN [facility] on nasal EACH Branch spray NOSTRIL TWICE DAILY FLUTICASONE Yes [id number] SHAKE U nivers PROPIONATE 6-17 LIQUID AND ity of 50 00:00: USE 1 [place] mcg/actuati 00 SPRAY IN [facility] on nasal EACH Branch spray NOSTRIL TWICE DAILY FLUTICASONE Yes [id number] SHAKE U nivers PROPIONATE 6-17 LIQUID AND ity of 50 00:00: USE 1 [place] mcg/actuati 00 SPRAY IN [facility] on nasal EACH Branch spray NOSTRIL TWICE DAILY FLUTICASONE Yes [id number] SHAKE U nivers PROPIONATE 6-17 LIQUID AND ity of 50 00:00: USE 1 [place] mcg/actuati 00 SPRAY IN [facility] on nasal EACH Branch spray NOSTRIL TWICE DAILY FLUTICASONE Yes [id number] SHAKE U nivers PROPIONATE 6-17 LIQUID AND ity of 50 00:00: USE 1 [place] mcg/actuati 00 SPRAY IN [facility] on nasal EACH Branch spray NOSTRIL TWICE DAILY FLUTICASONE 0 Yes [id number] SHAKE U nivers PROPIONATE 6-17 LIQUID AND ity of 50 00:00: USE 1 [place] mcg/actuati 00 SPRAY IN [facility] on nasal EACH Branch spray NOSTRIL TWICE DAILY FLUTICASONE 0 Yes [id number] SHAKE U nivers PROPIONATE 6-17 LIQUID AND ity of 50 00:00: USE 1 [place] mcg/actuati 00 SPRAY IN [facility] on nasal EACH Branch spray NOSTRIL TWICE DAILY FLUTICASONE 0 Yes [id number] SHAKE U nivers PROPIONATE 6-17 LIQUID AND ity of 50 00:00: USE 1 [place] mcg/actuati 00 SPRAY IN [facility] on nasal EACH Branch spray NOSTRIL TWICE DAILY FLUTICASONE 0 Yes [id number] SHAKE U nivers PROPIONATE 6-17 LIQUID AND ity of 50 00:00: USE 1 [place] mcg/actuati 00 SPRAY IN [facility] on nasal EACH Branch spray NOSTRIL TWICE DAILY FLUTICASONE 0 Yes [id number] SHAKE U nivers PROPIONATE 6-17 LIQUID AND ity of 50 00:00: USE 1 [place] mcg/actuati 00 SPRAY IN [facility] on nasal EACH Branch spray NOSTRIL TWICE DAILY FLUTICASONE 0 Yes [id number] SHAKE U nivers PROPIONATE 6-17 LIQUID AND ity of 50 00:00: USE 1 [place] mcg/actuati 00 SPRAY IN [facility] on nasal EACH Branch spray NOSTRIL TWICE DAILY FLUTICASONE 0 Yes [id number] SHAKE U nivers PROPIONATE 6-17 LIQUID AND ity of 50 00:00: USE 1 [place] mcg/actuati 00 SPRAY IN [facility] on nasal EACH Branch spray NOSTRIL TWICE DAILY FLUTICASONE 0 Yes [id number] SHAKE U nivers PROPIONATE 6-17 LIQUID AND ity of 50 00:00: USE 1 [place] mcg/actuati 00 SPRAY IN [facility] on nasal EACH Branch spray NOSTRIL TWICE DAILY FLUTICASONE 0 Yes [id number] SHAKE U nivers PROPIONATE 6-17 LIQUID AND ity of 50 00:00: USE 1 [place] mcg/actuati 00 SPRAY IN [facility] on nasal EACH Branch spray NOSTRIL TWICE DAILY FLUTICASONE 0 Yes [id number] SHAKE U nivers PROPIONATE 6-17 LIQUID AND ity of 50 00:00: USE 1 [place] mcg/actuati 00 SPRAY IN [facility] on nasal EACH Branch spray NOSTRIL TWICE DAILY FLUTICASONE 0 Yes [id number] SHAKE U nivers PROPIONATE 6-17 LIQUID AND ity of 50 00:00: USE 1 [place] mcg/actuati 00 SPRAY IN [facility] on nasal EACH Branch spray NOSTRIL TWICE DAILY FLUTICASONE 0 Yes [id number] SHAKE U nivers PROPIONATE 6-17 LIQUID AND ity of 50 00:00: USE 1 [place] mcg/actuati 00 SPRAY IN [facility] on nasal EACH Branch spray NOSTRIL TWICE DAILY FLUTICASONE 0 Yes [id number] SHAKE U nivers PROPIONATE 6-17 LIQUID AND ity of 50 00:00: USE 1 [place] mcg/actuati 00 SPRAY IN [facility] on nasal EACH Branch spray NOSTRIL TWICE DAILY FLUTICASONE Yes [id number] SHAKE U nivers PROPIONATE 6-17 LIQUID AND ity of 50 00:00: USE 1 [place] mcg/actuati 00 SPRAY IN [facility] on nasal EACH Branch spray NOSTRIL TWICE DAILY FLUTICASONE Yes [id number] SHAKE U nivers PROPIONATE 6-17 LIQUID AND ity of 50 00:00: USE 1 [place] mcg/actuati 00 SPRAY IN [facility] on nasal EACH Branch spray NOSTRIL TWICE DAILY FLUTICASONE Yes [id number] SHAKE U nivers PROPIONATE 6-17 LIQUID AND ity of 50 00:00: USE 1 [place] mcg/actuati 00 SPRAY IN [facility] on nasal EACH Branch spray NOSTRIL TWICE DAILY FLUTICASONE Yes [id number] SHAKE U nivers PROPIONATE 6-17 LIQUID AND ity of 50 00:00: USE 1 [place] mcg/actuati 00 SPRAY IN [facility] on nasal EACH Branch spray NOSTRIL TWICE DAILY FLUTICASONE Yes [id number] SHAKE U nivers PROPIONATE 6-17 LIQUID AND ity of 50 00:00: USE 1 [place] mcg/actuati 00 SPRAY IN [facility] on nasal EACH Branch spray NOSTRIL TWICE DAILY FLUTICASONE Yes [id number] SHAKE U nivers PROPIONATE 6-17 LIQUID AND ity of 50 00:00: USE 1 [place] mcg/actuati 00 SPRAY IN [facility] on nasal EACH Branch spray NOSTRIL TWICE DAILY FLUTICASONE Yes [id number] SHAKE U nivers PROPIONATE 6-17 LIQUID AND ity of 50 00:00: USE 1 [place] mcg/actuati 00 SPRAY IN [facility] on nasal EACH Branch spray NOSTRIL TWICE DAILY FLUTICASONE 2021- No [id number] SHAKE [facility] PROPIONATE 6-17 10-12 LIQUID AND it y of 50 00:00: 00:00 USE 1 [place] mcg/actuati 00 :00 SPRAY IN [facility] on nasal EACH Branch spray NOSTRIL TWICE DAILY FLUTICASONE 2021- No [id number] SHAKE [facility] PROPIONATE 6-17 10-12 LIQUID AND it y of 50 00:00: 00:00 USE 1 [place] mcg/actuati 00 :00 SPRAY IN [facility] on nasal EACH Branch spray NOSTRIL TWICE DAILY FLUTICASONE 2021- No [id number] SHAKE [facility] PROPIONATE 6-17 10-12 LIQUID AND it y of 50 00:00: 00:00 USE 1 [place] mcg/actuati 00 :00 SPRAY IN [facility] on nasal EACH Branch spray NOSTRIL TWICE DAILY FLUTICASONE 2021- No [id number] SHAKE [facility] PROPIONATE 6-17 10-12 LIQUID AND it y of 50 00:00: 00:00 USE 1 [place] mcg/actuati 00 :00 SPRAY IN [facility] on nasal EACH Branch spray NOSTRIL TWICE DAILY FLUTICASONE 2021- No [id number] SHAKE [facility] PROPIONATE 6-17 10-12 LIQUID AND it y of 50 00:00: 00:00 USE 1 [place] mcg/actuati 00 :00 SPRAY IN [facility] on nasal EACH Branch spray NOSTRIL TWICE DAILY FLUTICASONE 2021- No [id number] SHAKE [facility] PROPIONATE 6-17 10-12 LIQUID AND it y of 50 00:00: 00:00 USE 1 [place] mcg/actuati 00 :00 SPRAY IN [facility] on nasal EACH Branch spray NOSTRIL TWICE DAILY FLUTICASONE 2021- No [id number] SHAKE [facility] PROPIONATE 6-17 10-12 LIQUID AND it y of 50 00:00: 00:00 USE 1 [place] mcg/actuati 00 :00 SPRAY IN [facility] on nasal EACH Branch spray NOSTRIL TWICE DAILY FLUTICASONE 2021- No [id number] SHAKE [facility] PROPIONATE 6-17 10-12 LIQUID AND it y of 50 00:00: 00:00 USE 1 [place] mcg/actuati 00 :00 SPRAY IN [facility] on nasal EACH Branch spray NOSTRIL TWICE DAILY FLUTICASONE 2021- No [id number] SHAKE [facility] PROPIONATE 6-17 10-12 LIQUID AND it y of 50 00:00: 00:00 USE 1 [place] mcg/actuati 00 :00 SPRAY IN [facility] on nasal EACH Branch spray NOSTRIL TWICE DAILY FLUTICASONE 2021- No [id number] SHAKE [facility] PROPIONATE 6-17 10-12 LIQUID AND it y of 50 00:00: 00:00 USE 1 [place] mcg/actuati 00 :00 SPRAY IN Medi janet on nasal EACH Branch spray NOSTRIL TWICE DAILY FLUTICASONE 2021- No [id number] SHAKE [facility] PROPIONATE 6-17 10-12 LIQUID AND it y of 50 00:00: 00:00 USE 1 [place] mcg/actuati 00 :00 SPRAY IN Medi janet on nasal EACH Branch spray NOSTRIL TWICE DAILY nortriptyli Yes [id number] 25mg Take 12.5 [facility] ne 10 mg/5 6-16 mL by ity of mL solution 00:00: mouth at [place] 00 bedtime. Medical Branch nortriptyli Yes [id number] 25mg Take 12.5 [facility] ne 10 mg/5 6-16 mL by ity of mL solution 00:00: mouth at [place] 00 bedtime. Medical Branch nortriptyli 2021- No [id number] 25mg Take 12.5 [facility] ne 10 mg/5 6-16 08-31 mL by ity of mL solution 00:00: 00:00 mouth at [place] 00 :00 bedtime. Medical Branch nortriptyli 2021- No [id number] 25mg Take 12.5 [facility] ne 10 mg/5 6-16 08-31 mL by ity of mL solution 00:00: 00:00 mouth at [place] 00 :00 bedtime. Medical Branch nortriptyli 2021- No [id number] 25mg Take 12.5 [facility] ne 10 mg/5 6-16 08-31 mL by ity of mL solution 00:00: 00:00 mouth at [place] 00 :00 bedtime. Medical Branch imipramine Yes [id number] 10mg Take 1 U nivers 10 mg 6-02 tablet by ity of tablet 00:00: mouth at [place] 00 bedtime. Medical Branch imipramine Yes [id number] 10mg Take 1 U nivers 10 mg 6-02 tablet by ity of tablet 00:00: mouth at [place] 00 bedtime. Medical Branch imipramine Yes [id number] 10mg Take 1 U nivers 10 mg 6-02 tablet by ity of tablet 00:00: mouth at [place] 00 bedtime. Medical Branch imipramine 2021-0 Yes [id number] 10mg Take 1 U nivers 10 mg 6-02 tablet by ity of tablet 00:00: mouth at [place] [address] bedtime. Medical Branch imipramine 2021-0 Yes [id number] 10mg Take 1 U nivers 10 mg 6-02 tablet by ity of tablet 00:00: mouth at [place] [address] bedtime. Medical Branch imipramine 2021-0 Yes [id number] 10mg Take 1 U nivers 10 mg 6-02 tablet by ity of tablet 00:00: mouth at [place] [address] bedtime. Medical Branch imipramine 0 Yes [id number] 10mg Take 1 U nivers 10 mg 6-02 tablet by ity of tablet 00:00: mouth at [place] [address] bedtime. Medical Branch imipramine 0 Yes [id number] 10mg Take 1 U nivers 10 mg 6-02 tablet by ity of tablet 00:00: mouth at [place] [address] bedtime. Medical Branch imipramine 0 Yes [id number] 10mg Take 1 U nivers 10 mg 6-02 tablet by ity of tablet 00:00: mouth at [place] [address] bedtime. Medical Branch imipramine 0 Yes [id number] 10mg Take 1 U nivers 10 mg 6-02 tablet by ity of tablet 00:00: mouth at [place] [address] bedtime. Medical Branch imipramine 0 Yes [id number] 10mg Take 1 U nivers 10 mg 6-02 tablet by ity of tablet 00:00: mouth at [place] [address] bedtime. Medical Branch imipramine 2021-0 Yes [id number] 10mg Take 1 U nivers 10 mg 6-02 tablet by ity of tablet 00:00: mouth at [place] [address] bedtime. Medical Branch imipramine 2021-0 Yes [id number] 10mg Take 1 U nivers 10 mg 6-02 tablet by ity of tablet 00:00: mouth at [place] [address] bedtime. Medical Branch imipramine 2021-0 Yes [id number] 10mg Take 1 U nivers 10 mg 6-02 tablet by ity of tablet 00:00: mouth at [place] [address] bedtime. Medical Branch imipramine 2021-0 Yes [id number] 10mg Take 1 U nivers 10 mg 6-02 tablet by ity of tablet 00:00: mouth at [place] [address] bedtime. Medical Branch imipramine 2022-0 Yes [id number] 10mg Take 1 U nivers 10 mg 6-02 tablet by ity of tablet 00:00: mouth at [place] [address] bedtime. Medical Branch imipramine 0 Yes [id number] 10mg Take 1 U nivers 10 mg 6-02 tablet by ity of tablet 00:00: mouth at [place] 00 bedtime. Medical Branch imipramine 0 Yes [id number] 10mg Take 1 U nivers 10 mg 6-02 tablet by ity of tablet 00:00: mouth at [place] [address] bedtime. Medical Branch imipramine 0 Yes [id number] 10mg Take 1 U nivers 10 mg 6-02 tablet by ity of tablet 00:00: mouth at [place] [address] bedtime. Medical Branch imipramine 0 Yes [id number] 10mg Take 1 U nivers 10 mg 6-02 tablet by ity of tablet 00:00: mouth at [place] [address] bedtime. Medical Branch imipramine 0 Yes [id number] 10mg Take 1 U nivers 10 mg 6-02 tablet by ity of tablet 00:00: mouth at [place] [address] bedtime. Medical Branch imipramine 0 Yes [id number] 10mg Take 1 U nivers 10 mg 6-02 tablet by ity of tablet 00:00: mouth at [place] [address] bedtime. Medical Branch imipramine 0 Yes [id number] 10mg Take 1 U nivers 10 mg 6-02 tablet by ity of tablet 00:00: mouth at [place] [address] bedtime. Medical Branch imipramine 2021-0 Yes [id number] 10mg Take 1 U nivers 10 mg 6-02 tablet by ity of tablet 00:00: mouth at [place] [address] bedtime. Medical Branch imipramine 2021-0 Yes [id number] 10mg Take 1 U nivers 10 mg 6-02 tablet by ity of tablet 00:00: mouth at [place] [address] bedtime. Medical Branch imipramine 2021-0 Yes [id number] 10mg Take 1 U nivers 10 mg 6-02 tablet by ity of tablet 00:00: mouth at [place] [address] bedtime. Medical Branch imipramine 2021-0 Yes [id number] 10mg Take 1 U nivers 10 mg 6-02 tablet by ity of tablet 00:00: mouth at [place] [address] bedtime. Medical Branch imipramine 2021-0 Yes [id number] 10mg Take 1 U nivers 10 mg 6-02 tablet by ity of tablet 00:00: mouth at [place] [address] bedtime. Medical Branch imipramine 2021-0 Yes [id number] 10mg Take 1 [facility] nivers 10 mg 6-02 tablet by ity of tablet 00:00: mouth at [place] [address] bedtime. Medical Branch imipramine 2021-0 Yes [id number] 10mg Take 1 [facility] nivers 10 mg 6-02 tablet by ity of tablet 00:00: mouth at [place] [address] bedtime. Medical Branch imipramine 2021-0 Yes [id number] 10mg Take 1 [facility] nivers 10 mg 6-02 tablet by ity of tablet 00:00: mouth at [place] [address] bedtime. Medical Branch imipramine 0 Yes [id number] 10mg Take 1 [facility] nivers 10 mg 6-02 tablet by ity of tablet 00:00: mouth at [place] [address] bedtime. Medical Branch imipramine 0 Yes [id number] 10mg Take 1 [facility] nivers 10 mg 6-02 tablet by ity of tablet 00:00: mouth at [place] [address] bedtime. Medical Branch imipramine 0 Yes [id number] 10mg Take 1 U nivers 10 mg 6-02 tablet by ity of tablet 00:00: mouth at [place] [address] bedtime. Medical Branch imipramine 0 Yes [id number] 10mg Take 1 [facility] nivers 10 mg 6-02 tablet by ity of tablet 00:00: mouth at [place] [address] bedtime. Medical Branch imipramine 2021-0 Yes [id number] 10mg Take 1 [facility] nivers 10 mg 6-02 tablet by ity of tablet 00:00: mouth at [place] [address] bedtime. Medical Branch imipramine 2021-0 Yes [id number] 10mg Take 1 [facility] nivers 10 mg 6-02 tablet by ity of tablet 00:00: mouth at [place] [address] bedtime. Medical Branch imipramine 2021-0 Yes [id number] 10mg Take 1 [facility] nivers 10 mg 6-02 tablet by ity of tablet 00:00: mouth at [place] [address] bedtime. Medical Branch imipramine 2021-0 Yes [id number] 10mg Take 1 [facility] nivers 10 mg 6-02 tablet by ity of tablet 00:00: mouth at [place] [address] bedtime. Medical Branch imipramine 2021-0 Yes [id number] 10mg Take 1 [facility] nivers 10 mg 6-02 tablet by ity of tablet 00:00: mouth at [place] [address] bedtime. Medical Branch imipramine 2021-0 Yes [id number] 10mg Take 1 [facility] nivers 10 mg 6-02 tablet by ity of tablet 00:00: mouth at [place] [address] bedtime. Medical Branch imipramine 2021-0 Yes [id number] 10mg Take 1 [facility] nivers 10 mg 6-02 tablet by ity of tablet 00:00: mouth at [place] [address] bedtime. Medical Branch imipramine 2021-0 Yes [id number] 10mg Take 1 [facility] nivers 10 mg 6-02 tablet by ity of tablet 00:00: mouth at [place] [address] bedtime. Medical Branch imipramine 2021-0 Yes [id number] 10mg Take 1 [facility] nivers 10 mg 6-02 tablet by ity of tablet 00:00: mouth at [place] [address] bedtime. Medical Branch imipramine 2021-0 Yes [id number] 10mg Take 1 U nivers 10 mg 6-02 tablet by ity of tablet 00:00: mouth at [place] [address] bedtime. Medical Branch imipramine 2021-0 Yes [id number] 10mg Take 1 U nivers 10 mg 6-02 tablet by ity of tablet 00:00: mouth at [place] [address] bedtime. Medical Branch imipramine 2021-0 Yes [id number] 10mg Take 1 U nivers 10 mg 6-02 tablet by ity of tablet 00:00: mouth at [place] [address] bedtime. Medical Branch imipramine 2021-0 Yes [id number] 10mg Take 1 [facility] nivers 10 mg 6-02 tablet by ity of tablet 00:00: mouth at [place] [address] bedtime. Medical Branch imipramine 2021-0 Yes [id number] 10mg Take 1 [facility] nivers 10 mg 6-02 tablet by ity of tablet 00:00: mouth at [place] [address] bedtime. Medical Branch imipramine 2021-0 Yes [id number] 10mg Take 1 [facility] nivers 10 mg 6-02 tablet by ity of tablet 00:00: mouth at [place] [address] bedtime. Medical Branch imipramine 2021-0 Yes [id number] 10mg Take 1 [facility]ivers 10 mg 6-02 tablet by ity of tablet 00:00: mouth at [place] [address] bedtime. Medical Branch imipramine 2021-0 Yes [id number] 10mg Take 1 [facility]ivers 10 mg 6-02 tablet by ity of tablet 00:00: mouth at [place] [address] bedtime. Medical Branch imipramine 2021-0 Yes [id number] 10mg Take 1 [facility] 10 mg 6-02 tablet by ity of tablet 00:00: mouth at [place] [address] bedtime. Medical Branch imipramine 2021-0 Yes [id number] 10mg Take 1 [facility]ivers 10 mg 6-02 tablet by ity of tablet 00:00: mouth at [place] [address] bedtime. Medical Branch imipramine 2021-0 Yes [id number] 10mg Take 1 [facility]ivers 10 mg 6-02 tablet by ity of tablet 00:00: mouth at [place] [address] bedtime. Medical Branch imipramine 2021-0 Yes [id number] 10mg Take 1 [facility]ivers 10 mg 6-02 tablet by ity of tablet 00:00: mouth at [place] [address] bedtime. Medical Branch imipramine 2021-0 Yes [id number] 10mg Take 1 [facility]ivers 10 mg 6-02 tablet by ity of tablet 00:00: mouth at [place] [address] bedtime. Medical Branch imipramine 2021-0 Yes [id number] 10mg Take 1 [facility] nivers 10 mg 6-02 tablet by ity of tablet 00:00: mouth at [place] [address] bedtime. Medical Branch imipramine 2021-0 Yes [id number] 10mg Take 1 [facility] nivers 10 mg 6-02 tablet by ity of tablet 00:00: mouth at [place] [address] bedtime. Medical Branch imipramine 2021-0 Yes [id number] 10mg Take 1 [facility]ivers 10 mg 6-02 tablet by ity of tablet 00:00: mouth at [place] [address] bedtime. Medical Branch imipramine 2021-0 Yes [id number] 10mg Take 1 [facility]ivers 10 mg 6-02 tablet by ity of tablet 00:00: mouth at [place] [address] bedtime. Medical Branch imipramine 2021-0 Yes [id number] 10mg Take 1 [facility]ivers 10 mg 6-02 tablet by ity of tablet 00:00: mouth at [place] [address] bedtime. Medical Branch imipramine 2021-0 Yes [id number] 10mg Take 1 [facility]ivers 10 mg 6-02 tablet by ity of tablet 00:00: mouth at [place] [address] bedtime. Medical Branch imipramine 2021-0 Yes [id number] 10mg Take 1 [facility]ivers 10 mg 6-02 tablet by ity of tablet 00:00: mouth at [place] [address] bedtime. Medical Branch imipramine 2021-0 Yes [id number] 10mg Take 1 [facility]ivers 10 mg 6-02 tablet by ity of tablet 00:00: mouth at [place] [address] bedtime. Medical Branch imipramine 2021-0 Yes [id number] 10mg Take 1 [facility]ivers 10 mg 6-02 tablet by ity of tablet 00:00: mouth at [place] [address] bedtime. Medical Branch imipramine 2021-0 Yes [id number] 10mg Take 1 [facility] 10 mg 6-02 tablet by ity of tablet 00:00: mouth at [place] [address] bedtime. Medical Branch imipramine 2021-0 Yes [id number] 10mg Take 1 [facility] 10 mg 6-02 tablet by ity of tablet 00:00: mouth at [place] [address] bedtime. Medical Branch imipramine 0 Yes [id number] 10mg Take 1 [facility] 10 mg 6-02 tablet by ity of tablet 00:00: mouth at [place] [address] bedtime. Medical Branch imipramine 2021-0 Yes [id number] 10mg Take 1 [facility] 10 mg 6-02 tablet by ity of tablet 00:00: mouth at [place] [address] bedtime. Medical Branch imipramine 0 Yes [id number] 10mg Take 1 [facility] 10 mg 6-02 tablet by ity of tablet 00:00: mouth at [place] [address] bedtime. Medical Branch imipramine 2021-0 Yes [id number] 10mg Take 1 [facility] 10 mg 6-02 tablet by ity of tablet 00:00: mouth at [place] [address] bedtime. Medical Branch imipramine 2021-0 Yes [id number] 10mg Take 1 [facility]ivers 10 mg 6-02 tablet by ity of tablet 00:00: mouth at [place] [address] bedtime. [facility] imipramine 2021-0 Yes [id number] 10mg Take 1 [facility] 10 mg 6-02 tablet by [facility] tablet 00:00: mouth at [place] [address] bedtime. [facility] imipramine 2021-0 Yes [id number] 10mg Take 1 [facility] 10 mg 6-02 tablet by [facility] tablet 00:00: mouth at [place] [address] bedtime. [facility] imipramine 2021-0 Yes [id number] 10mg Take 1 [facility] 10 mg 6-02 tablet by [facility] tablet 00:00: mouth at [place] [address] bedtime. [facility] imipramine 2021-0 Yes [id number] 10mg Take 1 [facility] 10 mg 6-02 tablet by [facility] tablet 00:00: mouth at [place] [address] bedtime. [facility] imipramine 2021-0 Yes [id number] 10mg Take 1 [facility] 10 mg 6-02 tablet by [facility] tablet 00:00: mouth at [place] [address] bedtime. [facility] imipramine 2021-0 Yes [id number] 10mg Take 1 [facility] 10 mg 6-02 tablet by [facility] tablet 00:00: mouth at [place] [address] bedtime. [facility] imipramine 2021-0 Yes [id number] 10mg Take 1 [facility] 10 mg 6-02 tablet by [facility] 00:00: mouth at [place] [address] bedtime. [facility] imipramine 0 Yes [id number] 10mg Take 1 [facility] 10 mg 6-02 tablet by [facility] tablet 00:00: mouth at [place] [address] bedtime. [facility] imipramine 2021-0 Yes [id number] 10mg Take 1 [facility] 10 mg 6-02 tablet by [facility] tablet 00:00: mouth at [place] [address] bedtime. [facility] imipramine 0 Yes [id number] 10mg Take 1 [facility] 10 mg 6-02 tablet by [facility] tablet 00:00: mouth at [place] [address] bedtime. [facility] imipramine 0 Yes [id number] 10mg Take 1 [facility] 10 mg 6-02 tablet by [facility] tablet 00:00: mouth at [place] [address] bedtime. [facility] imipramine 2021-0 Yes [id number] 10mg Take 1 [facility] 10 mg 6-02 tablet by [facility] tablet 00:00: mouth at [place] [address] bedtime. [facility] imipramine 2021-0 Yes [id number] 10mg Take 1 [facility] 10 mg 6-02 tablet by [facility] tablet 00:00: mouth at [place] [address] bedtime. [facility] imipramine 2021-0 Yes [id number] 10mg Take 1 [facility] 10 mg 6-02 tablet by [facility] tablet 00:00: mouth at [place] [address] bedtime. [facility] imipramine 2021-0 Yes [id number] 10mg Take 1 [facility] 10 mg 6-02 tablet by [facility] 00:00: mouth at [place] [address] bedtime. [facility] imipramine 2021-0 Yes [id number] 10mg Take 1 [facility] 10 mg 6-02 tablet by [facility] tablet 00:00: mouth at [place] [address] bedtime. [facility] imipramine 2021-0 Yes [id number] 10mg Take 1 [facility] 10 mg 6-02 tablet by [facility] tablet 00:00: mouth at [place] [address] bedtime. [facility] imipramine 2021-0 Yes [id number] 10mg Take 1 [facility] 10 mg 6-02 tablet by [facility] tablet 00:00: mouth at [place] [address] bedtime. [facility] imipramine 2021-0 Yes [id number] 10mg Take 1 [facility] 10 mg 6-02 tablet by [facility] 00:00: mouth at [place] [address] bedtime. [facility] imipramine 0 Yes [id number] 10mg Take 1 [facility] 10 mg 6-02 tablet by [facility] tablet 00:00: mouth at [place] [address] bedtime. [facility] imipramine 0 Yes [id number] 10mg Take 1 [facility] 10 mg 6-02 tablet by [facility] tablet 00:00: mouth at [place] [address] bedtime. [facility] imipramine 0 Yes [id number] 10mg Take 1 [facility] 10 mg 6-02 tablet by [facility] tablet 00:00: mouth at [place] [address] bedtime. [facility] imipramine 0 Yes [id number] 10mg Take 1 [facility] 10 mg 6-02 tablet by [facility] tablet 00:00: mouth at [place] [address] bedtime. [facility] imipramine 2021-0 Yes [id number] 10mg Take 1 [facility] 10 mg 6-02 tablet by [facility] tablet 00:00: mouth at [place] [address] bedtime. [facility] imipramine 2021-0 Yes [id number] 10mg Take 1 [facility] 10 mg 6-02 tablet by [facility] tablet 00:00: mouth at [place] [address] bedtime. [facility] imipramine 2021-0 Yes [id number] 10mg Take 1 [facility] 10 mg 6-02 tablet by [facility] tablet 00:00: mouth at [place] [address] bedtime. [facility] imipramine 2021-0 Yes [id number] 10mg Take 1 [facility] 10 mg 6-02 tablet by [facility] tablet 00:00: mouth at [place] [address] bedtime. [facility] imipramine 2021-0 Yes [id number] 10mg Take 1 [facility] 10 mg 6-02 tablet by [facility] tablet 00:00: mouth at [place] [address] bedtime. [facility] imipramine 2021-0 Yes [id number] 10mg Take 1 [facility] 10 mg 6-02 tablet by [facility] tablet 00:00: mouth at [place] [address] bedtime. [facility] imipramine 2021-0 Yes [id number] 10mg Take 1 [facility] 10 mg 6-02 tablet by [facility] tablet 00:00: mouth at [place] [address] bedtime. [facility] imipramine 2021-0 Yes [id number] 10mg Take 1 [facility] 10 mg 6-02 tablet by [facility] 00:00: mouth at [place] [address] bedtime. [facility] imipramine 2021-0 Yes [id number] 10mg Take 1 [facility] 10 mg 6-02 tablet by [facility] 00:00: mouth at [place] [address] bedtime. [facility] imipramine 2021-0 Yes [id number] 10mg Take 1 [facility] 10 mg 6-02 tablet by [facility] tablet 00:00: mouth at [place] [address] bedtime. [facility] imipramine 2021-0 Yes [id number] 10mg Take 1 [facility] 10 mg 6-02 tablet by [facility] tablet 00:00: mouth at [place] [address] bedtime. [facility] imipramine 2021-0 Yes [id number] 10mg Take 1 [facility] 10 mg 6-02 tablet by [facility] 00:00: mouth at [place] [address] bedtime. [facility] imipramine 2021-0 Yes [id number] 10mg Take 1 [facility] 10 mg 6-02 tablet by [facility] tablet 00:00: mouth at [place] [address] bedtime. [facility] imipramine 2021-0 Yes [id number] 10mg Take 1 [facility] 10 mg 6-02 tablet by [facility] tablet 00:00: mouth at [place] [address] bedtime. [facility] imipramine 2021-0 Yes [id number] 10mg Take 1 [facility] 10 mg 6-02 tablet by [facility] tablet 00:00: mouth at [place] [address] bedtime. [facility] imipramine 2021-0 Yes [id number] 10mg Take 1 [facility] 10 mg 6-02 tablet by [facility] tablet 00:00: mouth at [place] [address] bedtime. [facility] imipramine 2021-0 Yes [id number] 10mg Take 1 [facility] 10 mg 6-02 tablet by [facility] tablet 00:00: mouth at [place] [address] bedtime. [facility] imipramine 2021-0 Yes [id number] 10mg Take 1 [facility] 10 mg 6-02 tablet by [facility] tablet 00:00: mouth at [place] [address] bedtime. [facility] imipramine 2021-0 Yes [id number] 10mg Take 1 [facility] 10 mg 6-02 tablet by [facility] tablet 00:00: mouth at [place] [address] bedtime. [facility] imipramine 2021-0 Yes [id number] 10mg Take 1 [facility] 10 mg 6-02 tablet by [facility] 00:00: mouth at [place] [address] bedtime. [facility] imipramine 2021-0 Yes [id number] 10mg Take 1 [facility] 10 mg 6-02 tablet by [facility] 00:00: mouth at [place] [address] bedtime. [facility] imipramine 2021-0 Yes [id number] 10mg Take 1 [facility] 10 mg 6-02 tablet by [facility] tablet 00:00: mouth at [place] [address] bedtime. [facility] imipramine 2021-0 Yes [id number] 10mg Take 1 [facility] 10 mg 6-02 tablet by [facility] 00:00: mouth at [place] [address] bedtime. [facility] imipramine 2021-0 Yes [id number] 10mg Take 1 [facility] 10 mg 6-02 tablet by [facility] 00:00: mouth at [place] [address] bedtime. [facility] imipramine 2021-0 Yes [id number] 10mg Take 1 [facility] 10 mg 6-02 tablet by [facility] tablet 00:00: mouth at [place] [address] bedtime. [facility] imipramine 2021-0 Yes [id number] 10mg Take 1 [facility] 10 mg 6-02 tablet by [facility] tablet 00:00: mouth at [place] [address] bedtime. [facility] imipramine 2021-0 Yes [id number] 10mg Take 1 [facility] 10 mg 6-02 tablet by [facility] tablet 00:00: mouth at [place] [address] bedtime. [facility] imipramine 2021-0 Yes [id number] 10mg Take 1 [facility] 10 mg 6-02 tablet by [facility] tablet 00:00: mouth at [place] [address] bedtime. [facility] imipramine 2021-0 Yes [id number] 10mg Take 1 [facility] 10 mg 6-02 tablet by [facility] tablet 00:00: mouth at [place] [address] bedtime. [facility] imipramine 2021-0 Yes [id number] 10mg Take 1 [facility] 10 mg 6-02 tablet by [facility] 00:00: mouth at [place] [address] bedtime. [facility] imipramine 2021-0 Yes [id number] 10mg Take 1 [facility] 10 mg 6-02 tablet by [facility] 00:00: mouth at [place] [address] bedtime. [facility] imipramine 2021-0 Yes [id number] 10mg Take 1 [facility] 10 mg 6-02 tablet by [facility] tablet 00:00: mouth at [place] [address] bedtime. [facility] imipramine 0 Yes [id number] 10mg Take 1 [facility] 10 mg 6-02 tablet by [facility] tablet 00:00: mouth at [place] [address] bedtime. [facility] imipramine 0 Yes [id number] 10mg Take 1 [facility] 10 mg 6-02 tablet by [facility] 00:00: mouth at [place] [address] bedtime. [facility] imipramine 2021-0 Yes [id number] 10mg Take 1 [facility] 10 mg 6-02 tablet by [facility] tablet 00:00: mouth at [place] [address] bedtime. [facility] imipramine 0 Yes [id number] 10mg Take 1 [facility] 10 mg 6-02 tablet by [facility] tablet 00:00: mouth at [place] [address] bedtime. [facility] imipramine 2021-0 Yes [id number] 10mg Take 1 [facility] 10 mg 6-02 tablet by [facility] tablet 00:00: mouth at [place] [address] bedtime. [facility] imipramine 2021-0 Yes [id number] 10mg Take 1 [facility] 10 mg 6-02 tablet by [facility] tablet 00:00: mouth at [place] [address] bedtime. [facility] imipramine 2021-0 Yes [id number] 10mg Take 1 [facility] 10 mg 6-02 tablet by [facility] tablet 00:00: mouth at [place] [address] bedtime. [facility] imipramine 2021-0 Yes [id number] 10mg Take 1 [facility] 10 mg 6-02 tablet by [facility] tablet 00:00: mouth at [place] [address] bedtime. [facility] imipramine 2021-0 Yes [id number] 10mg Take 1 [facility] 10 mg 6-02 tablet by [facility] tablet 00:00: mouth at [place] [address] bedtime. [facility] imipramine 2022-0 Yes [id number] 10mg Take 1 [facility] 10 mg 6-02 tablet by [facility] tablet 00:00: mouth at [place] [address] bedtime. [facility] imipramine 2021-0 Yes [id number] 10mg Take 1 [facility] 10 mg 6-02 tablet by [facility] tablet 00:00: mouth at [place] [address] bedtime. [facility] imipramine 2021-0 Yes [id number] 10mg Take 1 [facility] 10 mg 6-02 tablet by [facility] tablet 00:00: mouth at [place] [address] bedtime. [facility] imipramine 0 Yes [id number] 10mg Take 1 [facility] 10 mg 6-02 tablet by [facility] tablet 00:00: mouth at [place] [address] bedtime. [facility] imipramine 0 Yes [id number] 10mg Take 1 [facility] 10 mg 6-02 tablet by [facility] tablet 00:00: mouth at [place] [address] bedtime. [facility] imipramine 2021-0 Yes [id number] 10mg Take 1 [facility] 10 mg 6-02 tablet by [facility] tablet 00:00: mouth at [place] [address] bedtime. [facility] imipramine 0 Yes [id number] 10mg Take 1 [facility] 10 mg 6-02 tablet by [facility] tablet 00:00: mouth at [place] [address] bedtime. [facility] imipramine 0 Yes [id number] 10mg Take 1 [facility] 10 mg 6-02 tablet by [facility] tablet 00:00: mouth at [place] [address] bedtime. [facility] imipramine 2021-0 Yes [id number] 10mg Take 1 [facility] 10 mg 6-02 tablet by [facility] tablet 00:00: mouth at [place] [address] bedtime. [facility] imipramine 2021-0 Yes [id number] 10mg Take 1 [facility] 10 mg 6-02 tablet by [facility] tablet 00:00: mouth at [place] [address] bedtime. [facility] imipramine 2021-0 Yes [id number] 10mg Take 1 [facility] 10 mg 6-02 tablet by [facility] tablet 00:00: mouth at [place] [address] bedtime. [facility] imipramine 2021-0 Yes [id number] 10mg Take 1 [facility] 10 mg 6-02 tablet by [facility] tablet 00:00: mouth at [place] [address] bedtime. [facility] imipramine 2021-0 Yes [id number] 10mg Take 1 [facility] 10 mg 6-02 tablet by [facility] tablet 00:00: mouth at [place] [address] bedtime. [facility] imipramine 2021-0 Yes [id number] 10mg Take 1 [facility] 10 mg 6-02 tablet by [facility] tablet 00:00: mouth at [place] [address] bedtime. [facility] imipramine 2021-0 Yes [id number] 10mg Take 1 [facility] 10 mg 6-02 tablet by [facility] tablet 00:00: mouth at [place] [address] bedtime. [facility] imipramine 2021-0 Yes [id number] 10mg Take 1 [facility] 10 mg 6-02 tablet by [facility] tablet 00:00: mouth at [place] [address] bedtime. [facility] imipramine 0 Yes [id number] 10mg Take 1 [facility] 10 mg 6-02 tablet by [facility] tablet 00:00: mouth at [place] [address] bedtime. [facility] imipramine 2021-0 Yes [id number] 10mg Take 1 [facility] 10 mg 6-02 tablet by [facility] tablet 00:00: mouth at [place] [address] bedtime. [facility] imipramine 2021-0 Yes [id number] 10mg Take 1 [facility] 10 mg 6-02 tablet by [facility] tablet 00:00: mouth at [place] [address] bedtime. [facility] imipramine 0 Yes [id number] 10mg Take 1 [facility] 10 mg 6-02 tablet by [facility] tablet 00:00: mouth at [place] [address] bedtime. [facility] imipramine 2021-0 Yes [id number] 10mg Take 1 [facility] 10 mg 6-02 tablet by [facility] tablet 00:00: mouth at [place] [address] bedtime. [facility] imipramine 2021-0 Yes [id number] 10mg Take 1 [facility] 10 mg 6-02 tablet by [facility] tablet 00:00: mouth at [place] [address] bedtime. [facility] imipramine 2021-0 Yes [id number] 10mg Take 1 [facility] 10 mg 6-02 tablet by [facility] tablet 00:00: mouth at [place] [address] bedtime. [facility] imipramine 2021-0 Yes [id number] 10mg Take 1 [facility] 10 mg 6-02 tablet by [facility] tablet 00:00: mouth at [place] [address] bedtime. [facility] imipramine 2021-0 Yes [id number] 10mg Take 1 [facility] 10 mg 6-02 tablet by [facility] tablet 00:00: mouth at [place] 00 bedtime. [facility] imipramine 2021-0 Yes [id number] 10mg Take 1 [facility] 10 mg 6-02 tablet by [facility] tablet 00:00: mouth at [place] 00 bedtime. [facility] imipramine 2021-0 Yes [id number] 10mg Take 1 [facility] 10 mg 6-02 tablet by [facility] tablet 00:00: mouth at [place] 00 bedtime. [facility] imipramine 2-0 Yes [id number] 10mg Take 1 [facility] 10 mg 6-02 tablet by [facility] tablet 00:00: mouth at [place] 00 bedtime. [facility] levothyroxi 2021-0 Yes [id number] 100ug Take 1 [facility] 100 mcg 5-24 tablet by [facility] tablet 00:00: mouth [place] 00 every Medical morning. [facility] levothyroxi 2021-0 Yes [id number] 100ug Take 1 [facility] 100 mcg 5-24 tablet by [facility] tablet 00:00: mouth [place] 00 every Medical morning. [facility] levothyroxi 2021-0 Yes [id number] 100ug Take 1 [facility] 100 mcg 5-24 tablet by [facility] tablet 00:00: mouth [place] 00 every Medical morning. [facility] levothyroxi 2021-0 Yes [id number] 100ug Take 1 [facility] 100 mcg 5-24 tablet by [facility] tablet 00:00: mouth [place] 00 every Medical morning. [facility] levothyroxi 2021-0 Yes [id number] 100ug Take 1 [facility] 100 mcg 5-24 tablet by [facility] tablet 00:00: mouth [place] 00 every Medical morning. [facility] levothyroxi 2021-0 Yes [id number] 100ug Take 1 [facility] 100 mcg 5-24 tablet by [facility] tablet 00:00: mouth [place] 00 every Medical morning. [facility] levothyroxi 2021-0 Yes [id number] 100ug Take 1 [facility] 100 mcg 5-24 tablet by [facility] tablet 00:00: mouth [place] 00 every Medical morning. [facility] levothyroxi 2021-0 Yes [id number] 100ug Take 1 [facility] 100 mcg 5-24 tablet by [facility] tablet 00:00: mouth [place] 00 every Medical morning. [facility] levothyroxi 2021-0 Yes [id number] 100ug Take 1 [facility] 100 mcg 5-24 tablet by [facility] tablet 00:00: mouth [place] 00 every Medical morning. [facility] levothyroxi 2021-0 Yes [id number] 100ug Take 1 [facility] 100 mcg 5-24 tablet by [facility] tablet 00:00: mouth [place] 00 every Medical morning. [facility] levothyroxi 2-0 Yes [id number] 100ug Take 1 [facility] 100 mcg 5-24 tablet by [facility] tablet 00:00: mouth [place] 00 every Medical morning. [facility] levothyroxi 2-0 Yes [id number] 100ug Take 1 [facility] 100 mcg 5-24 tablet by [facility] tablet 00:00: mouth [place] 00 every Medical morning. [facility] levothyroxi 2021-0 Yes [id number] 100ug Take 1 [facility] 100 mcg 5-24 tablet by [facility] tablet 00:00: mouth [place] 00 every Medical morning. [facility] levothyroxi 2021-0 Yes [id number] 100ug Take 1 [facility] 100 mcg 5-24 tablet by [facility] tablet 00:00: mouth [place] 00 every Medical morning. [facility] levothyroxi 2021-0 Yes [id number] 100ug Take 1 [facility] 100 mcg 5-24 tablet by [facility] tablet 00:00: mouth [place] 00 every Medical morning. [facility] levothyroxi 2021-0 Yes [id number] 100ug Take 1 [facility] 100 mcg 5-24 tablet by [facility] tablet 00:00: mouth [place] 00 every Medical morning. [facility] levothyroxi 2-0 Yes [id number] 100ug Take 1 [facility] 100 mcg 5-24 tablet by [facility] tablet 00:00: mouth [place] 00 every Medical morning. [facility] levothyroxi 2-0 Yes [id number] 100ug Take 1 [facility] 100 mcg 5-24 tablet by [facility] tablet 00:00: mouth [place] 00 every Medical morning. [facility] levothyroxi 2-0 Yes [id number] 100ug Take 1 [facility] 100 mcg 5-24 tablet by [facility] tablet 00:00: mouth [place] 00 every Medical morning. [facility] levothyroxi 2-0 Yes [id number] 100ug Take 1 [facility] 100 mcg 5-24 tablet by [facility] tablet 00:00: mouth [place] 00 every Medical morning. [facility] levothyroxi 2-0 Yes [id number] 100ug Take 1 [facility] 100 mcg 5-24 tablet by [facility] tablet 00:00: mouth [place] 00 every Medical morning. [facility] levothyroxi 2-0 Yes [id number] 100ug Take 1 [facility] 100 mcg 5-24 tablet by [facility] tablet 00:00: mouth [place] 00 every Medical morning. [facility] levothyroxi 2-0 Yes [id number] 100ug Take 1 [facility] 100 mcg 5-24 tablet by [facility] tablet 00:00: mouth [place] 00 every Medical morning. [facility] levothyroxi 2-0 Yes [id number] 100ug Take 1 [facility] 100 mcg 5-24 tablet by [facility] tablet 00:00: mouth [place] 00 every Medical morning. [facility] levothyroxi 2-0 Yes [id number] 100ug Take 1 [facility] 100 mcg 5-24 tablet by [facility] tablet 00:00: mouth [place] 00 every Medical morning. [facility] levothyroxi 2-0 Yes [id number] 100ug Take 1 [facility] 100 mcg 5-24 tablet by [facility] tablet 00:00: mouth [place] 00 every Medical morning. [facility] levothyroxi 2-0 Yes [id number] 100ug Take 1 [facility] 100 mcg 5-24 tablet by [facility] tablet 00:00: mouth [place] 00 every Medical morning. [facility] levothyroxi 2-0 Yes [id number] 100ug Take 1 [facility] 100 mcg 5-24 tablet by [facility] tablet 00:00: mouth [place] 00 every Medical morning. [facility] levothyroxi 2-0 Yes [id number] 100ug Take 1 [facility] 100 mcg 5-24 tablet by [facility] tablet 00:00: mouth [place] 00 every Medical morning. [facility] levothyroxi 2-0 Yes [id number] 100ug Take 1 [facility] 100 mcg 5-24 tablet by [facility] tablet 00:00: mouth [place] 00 every Medical morning. [facility] levothyroxi 2-0 Yes [id number] 100ug Take 1 [facility] 100 mcg 5-24 tablet by [facility] tablet 00:00: mouth [place] 00 every Medical morning. [facility] levothyroxi 2-0 Yes [id number] 100ug Take 1 [facility] 100 mcg 5-24 tablet by [facility] tablet 00:00: mouth [place] 00 every Medical morning. [facility] levothyroxi 2022-0 Yes [id number] 100ug Take 1 [facility] 100 mcg 5-24 tablet by [facility] tablet 00:00: mouth [place] 00 every Medical morning. [facility] levothyroxi 2-0 Yes [id number] 100ug Take 1 [facility] 100 mcg 5-24 tablet by [facility] tablet 00:00: mouth [place] 00 every Medical morning. [facility] levothyroxi 2-0 Yes [id number] 100ug Take 1 [facility] 100 mcg 5-24 tablet by [facility] tablet 00:00: mouth [place] 00 every Medical morning. [facility] levothyroxi 2-0 Yes [id number] 100ug Take 1 [facility] 100 mcg 5-24 tablet by [facility] tablet 00:00: mouth [place] 00 every Medical morning. [facility] levothyroxi 2-0 Yes [id number] 100ug Take 1 [facility] 100 mcg 5-24 tablet by [facility] tablet 00:00: mouth [place] 00 every Medical morning. [facility] levothyroxi 2-0 Yes [id number] 100ug Take 1 [facility] 100 mcg 5-24 tablet by [facility] tablet 00:00: mouth [place] 00 every Medical morning. [facility] levothyroxi 2021-0 Yes [id number] 100ug Take 1 [facility] 100 mcg 5-24 tablet by [facility] tablet 00:00: mouth [place] 00 every Medical morning. [facility] levothyroxi 2021-0 Yes [id number] 100ug Take 1 [facility] 100 mcg 5-24 tablet by [facility] tablet 00:00: mouth [place] 00 every Medical morning. [facility] levothyroxi 2-0 Yes [id number] 100ug Take 1 [facility] 100 mcg 5-24 tablet by [facility] tablet 00:00: mouth [place] 00 every Medical morning. [facility] levothyroxi 2-0 Yes [id number] 100ug Take 1 [facility] 100 mcg 5-24 tablet by [facility] tablet 00:00: mouth [place] 00 every Medical morning. [facility] levothyroxi 2-0 Yes [id number] 100ug Take 1 [facility] 100 mcg 5-24 tablet by [facility] tablet 00:00: mouth [place] 00 every Medical morning. [facility] levothyroxi 2-0 Yes [id number] 100ug Take 1 [facility] 100 mcg 5-24 tablet by [facility] tablet 00:00: mouth [place] 00 every Medical morning. [facility] levothyroxi 2022-0 Yes [id number] 100ug Take 1 [facility] 100 mcg 5-24 tablet by [facility] tablet 00:00: mouth [place] 00 every Medical morning. [facility] levothyroxi 2-0 Yes [id number] 100ug Take 1 [facility] 100 mcg 5-24 tablet by [facility] tablet 00:00: mouth [place] 00 every Medical morning. [facility] levothyroxi 2-0 Yes [id number] 100ug Take 1 [facility] 100 mcg 5-24 tablet by [facility] tablet 00:00: mouth [place] 00 every Medical morning. [facility] levothyroxi 2-0 Yes [id number] 100ug Take 1 [facility] 100 mcg 5-24 tablet by [facility] tablet 00:00: mouth [place] 00 every Medical morning. [facility] levothyroxi 2-0 Yes [id number] 100ug Take 1 [facility] 100 mcg 5-24 tablet by [facility] tablet 00:00: mouth [place] 00 every Medical morning. [facility] levothyroxi 2-0 Yes [id number] 100ug Take 1 [facility] 100 mcg 5-24 tablet by [facility] tablet 00:00: mouth [place] 00 every Medical morning. [facility] levothyroxi 2021-0 Yes [id number] 100ug Take 1 [facility] 100 mcg 5-24 tablet by [facility] tablet 00:00: mouth [place] 00 every Medical morning. [facility] levothyroxi 2021-0 Yes [id number] 100ug Take 1 [facility] 100 mcg 5-24 tablet by [facility] tablet 00:00: mouth [place] 00 every Medical morning. [facility] levothyroxi 2-0 Yes [id number] 100ug Take 1 [facility] 100 mcg 5-24 tablet by [facility] tablet 00:00: mouth [place] 00 every Medical morning. [facility] levothyroxi 2-0 Yes [id number] 100ug Take 1 [facility] 100 mcg 5-24 tablet by [facility] tablet 00:00: mouth [place] 00 every Medical morning. [facility] levothyroxi 2022-0 Yes [id number] 100ug Take 1 [facility] 100 mcg 5-24 tablet by [facility] tablet 00:00: mouth [place] 00 every Medical morning. [facility] levothyroxi 2022-0 Yes [id number] 100ug Take 1 [facility] 100 mcg 5-24 tablet by [facility] tablet 00:00: mouth [place] 00 every Medical morning. [facility] levothyroxi 2022-0 Yes [id number] 100ug Take 1 [facility] 100 mcg 5-24 tablet by [facility] tablet 00:00: mouth [place] 00 every Medical morning. [facility] levothyroxi 2021-0 Yes [id number] 100ug Take 1 [facility] 100 mcg 5-24 tablet by [facility] tablet 00:00: mouth [place] 00 every Medical morning. [facility] levothyroxi 2021-0 Yes [id number] 100ug Take 1 [facility] 100 mcg 5-24 tablet by [facility] tablet 00:00: mouth [place] 00 every Medical morning. [facility] levothyroxi 2021-0 Yes [id number] 100ug Take 1 [facility] 100 mcg 5-24 tablet by [facility] tablet 00:00: mouth [place] 00 every Medical morning. [facility] levothyroxi 2021-0 Yes [id number] 100ug Take 1 [facility] 100 mcg 5-24 tablet by [facility] tablet 00:00: mouth [place] 00 every Medical morning. [facility] levothyroxi 2021-0 Yes [id number] 100ug Take 1 [facility] 100 mcg 5-24 tablet by [facility] tablet 00:00: mouth [place] 00 every Medical morning. [facility] levothyroxi 2021-0 Yes [id number] 100ug Take 1 [facility] 100 mcg 5-24 tablet by [facility] tablet 00:00: mouth [place] 00 every Medical morning. [facility] levothyroxi 2021-0 Yes [id number] 100ug Take 1 [facility] 100 mcg 5-24 tablet by [facility] tablet 00:00: mouth [place] 00 every Medical morning. [facility] levothyroxi 2-0 Yes [id number] 100ug Take 1 [facility] 100 mcg 5-24 tablet by [facility] tablet 00:00: mouth [place] 00 every Medical morning. [facility] levothyroxi 2021-0 Yes [id number] 100ug Take 1 [facility] 100 mcg 5-24 tablet by [facility] tablet 00:00: mouth [place] 00 every Medical morning. [facility] levothyroxi 2021-0 Yes [id number] 100ug Take 1 [facility] 100 mcg 5-24 tablet by [facility] tablet 00:00: mouth [place] 00 every Medical morning. [facility] levothyroxi 2-0 Yes [id number] 100ug Take 1 [facility] 100 mcg 5-24 tablet by [facility] tablet 00:00: mouth [place] 00 every Medical morning. [facility] levothyroxi 2-0 Yes [id number] 100ug Take 1 [facility] 100 mcg 5-24 tablet by [facility] tablet 00:00: mouth [place] 00 every Medical morning. [facility] levothyroxi 2-0 Yes [id number] 100ug Take 1 [facility] 100 mcg 5-24 tablet by [facility] tablet 00:00: mouth [place] 00 every Medical morning. [facility] levothyroxi 2-0 Yes [id number] 100ug Take 1 [facility] 100 mcg 5-24 tablet by [facility] tablet 00:00: mouth [place] 00 every Medical morning. [facility] levothyroxi 2-0 Yes [id number] 100ug Take 1 [facility] 100 mcg 5-24 tablet by [facility] tablet 00:00: mouth [place] 00 every Medical morning. [facility] levothyroxi 2-0 Yes [id number] 100ug Take 1 [facility] 100 mcg 5-24 tablet by [facility] tablet 00:00: mouth [place] 00 every Medical morning. Branch levothyroxi 2-0 Yes [id number] 100ug Take 1 [facility] 100 mcg 5-24 tablet by [facility] tablet 00:00: mouth [place] 00 every Medical morning. Branch levothyroxi 2021-0 Yes [id number] 100ug Take 1 [facility] ne 100 mcg 5-24 tablet by [facility] tablet 00:00: mouth [place] 00 every Medical morning. Branch levothyroxi 2-0 Yes [id number] 100ug Take 1 [facility] ne 100 mcg 5-24 tablet by [facility] tablet 00:00: mouth [place] 00 every Medical morning. Branch levothyroxi 2-0 Yes [id number] 100ug Take 1 [facility] ne 100 mcg 5-24 tablet by [facility] tablet 00:00: mouth [place] 00 every Medical morning. Branch levothyroxi 2-0 Yes [id number] 100ug Take 1 [facility] ne 100 mcg 5-24 tablet by [facility] tablet 00:00: mouth [place] 00 every Medical morning. Branch levothyroxi 2-0 Yes [id number] 100ug Take 1 [facility] ne 100 mcg 5-24 tablet by [facility] tablet 00:00: mouth [place] 00 every Medical morning. Branch levothyroxi 2-0 Yes [id number] 100ug Take 1 [facility] ne 100 mcg 5-24 tablet by [facility] tablet 00:00: mouth [place] 00 every Medical morning. Branch levothyroxi 2021-0 Yes [id number] 100ug Take 1 [facility] ne 100 mcg 5-24 tablet by [facility] tablet 00:00: mouth [place] 00 every Medical morning. Branch levothyroxi 2021-0 Yes [id number] 100ug Take 1 [facility] ne 100 mcg 5-24 tablet by [facility] tablet 00:00: mouth [place] 00 every Medical morning. Branch levothyroxi 2021-0 Yes [id number] 100ug Take 1 [facility] ne 100 mcg 5-24 tablet by [facility] of tablet 00:00: mouth [place] 00 every Medical morning. Branch levothyroxi 2021-0 Yes [id number] 100ug Take 1 [facility] ne 100 mcg 5-24 tablet by [facility] tablet 00:00: mouth [place] 00 every Medical morning. Branch levothyroxi 2021-0 Yes [id number] 100ug Take 1 [facility] ne 100 mcg 5-24 tablet by [facility] of tablet 00:00: mouth [place] 00 every Medical morning. Branch levothyroxi 2021-0 Yes [id number] 100ug Take 1 [facility] ne 100 mcg 5-24 tablet by [facility] of tablet 00:00: mouth [place] 00 every Medical morning. Branch levothyroxi 2021-0 Yes [id number] 100ug Take 1 [facility] ne 100 mcg 5-24 tablet by [facility] tablet 00:00: mouth [place] 00 every Medical morning. Branch levothyroxi 2021-0 Yes [id number] 100ug Take 1 [facility] ne 100 mcg 5-24 tablet by [facility] tablet 00:00: mouth [place] 00 every Medical morning. Branch levothyroxi 2-0 Yes [id number] 100ug Take 1 [facility] ne 100 mcg 5-24 tablet by [facility] of tablet 00:00: mouth [place] 00 every Medical morning. Branch levothyroxi 2021-0 Yes [id number] 100ug Take 1 [facility] ne 100 mcg 5-24 tablet by [facility] tablet 00:00: mouth [place] 00 every Medical morning. Branch levothyroxi 2-0 Yes [id number] 100ug Take 1 [facility] ne 100 mcg 5-24 tablet by [facility] tablet 00:00: mouth [place] 00 every Medical morning. Branch levothyroxi 2-0 Yes [id number] 100ug Take 1 [facility] ne 100 mcg 5-24 tablet by [facility] tablet 00:00: mouth [place] 00 every Medical morning. Branch levothyroxi 2021-0 Yes [id number] 100ug Take 1 [facility] ne 100 mcg 5-24 tablet by [facility] tablet 00:00: mouth [place] 00 every Medical morning. Branch levothyroxi 2-0 Yes [id number] 100ug Take 1 [facility] ne 100 mcg 5-24 tablet by [facility] tablet 00:00: mouth [place] 00 every Medical morning. Branch levothyroxi 2-0 Yes [id number] 100ug Take 1 [facility] ne 100 mcg 5-24 tablet by [facility] of tablet 00:00: mouth [place] 00 every Medical morning. Branch levothyroxi 2-0 Yes [id number] 100ug Take 1 [facility] ne 100 mcg 5-24 tablet by [facility] of tablet 00:00: mouth [place] 00 every Medical morning. Branch levothyroxi 2-0 Yes [id number] 100ug Take 1 [facility] ne 100 mcg 5-24 tablet by [facility] of tablet 00:00: mouth [place] 00 every Medical morning. Branch levothyroxi 2-0 Yes [id number] 100ug Take 1 [facility] ne 100 mcg 5-24 tablet by [facility] of tablet 00:00: mouth [place] 00 every Medical morning. Branch levothyroxi 2021-0 Yes [id number] 100ug Take 1 [facility] ne 100 mcg 5-24 tablet by [facility] tablet 00:00: mouth [place] 00 every Medical morning. Branch levothyroxi 2-0 Yes [id number] 100ug Take 1 [facility] ne 100 mcg 5-24 tablet by [facility] tablet 00:00: mouth [place] 00 every Medical morning. Branch levothyroxi 2-0 Yes [id number] 100ug Take 1 [facility] ne 100 mcg 5-24 tablet by [facility] tablet 00:00: mouth [place] 00 every Medical morning. Branch levothyroxi 2-0 Yes [id number] 100ug Take 1 [facility] ne 100 mcg 5-24 tablet by [facility] of tablet 00:00: mouth [place] 00 every Medical morning. Branch levothyroxi 2-0 Yes [id number] 100ug Take 1 [facility] ne 100 mcg 5-24 tablet by [facility] of tablet 00:00: mouth [place] 00 every Medical morning. Branch levothyroxi 2-0 Yes [id number] 100ug Take 1 [facility] ne 100 mcg 5-24 tablet by [facility] tablet 00:00: mouth [place] 00 every Medical morning. Branch levothyroxi 2021-0 Yes [id number] 100ug Take 1 [facility] ne 100 mcg 5-24 tablet by [facility] tablet 00:00: mouth [place] 00 every Medical morning. Branch levothyroxi 2021-0 Yes [id number] 100ug Take 1 [facility] ne 100 mcg 5-24 tablet by [facility] tablet 00:00: mouth [place] 00 every Medical morning. Branch levothyroxi 2021-0 Yes [id number] 100ug Take 1 [facility] ne 100 mcg 5-24 tablet by [facility] of tablet 00:00: mouth [place] 00 every Medical morning. Branch levothyroxi 2021-0 Yes [id number] 100ug Take 1 [facility] ne 100 mcg 5-24 tablet by [facility] of tablet 00:00: mouth [place] 00 every Medical morning. Branch levothyroxi 2021-0 Yes [id number] 100ug Take 1 [facility] 100 mcg 5-24 tablet by [facility] tablet 00:00: mouth [place] 00 every Medical morning. Branch levothyroxi 2021-0 Yes [id number] 100ug Take 1 [facility] ne 100 mcg 5-24 tablet by [facility] of tablet 00:00: mouth [place] 00 every Medical morning. Branch levothyroxi 2021-0 Yes [id number] 100ug Take 1 [facility] ne 100 mcg 5-24 tablet by [facility] tablet 00:00: mouth [place] 00 every Medical morning. Branch levothyroxi 2021-0 Yes [id number] 100ug Take 1 [facility] ne 100 mcg 5-24 tablet by [facility] tablet 00:00: mouth [place] 00 every Medical morning. Branch levothyroxi 2021-0 Yes [id number] 100ug Take 1 [facility] ne 100 mcg 5-24 tablet by [facility] tablet 00:00: mouth [place] 00 every Medical morning. Branch levothyroxi 2021-0 Yes [id number] 100ug Take 1 [facility] ne 100 mcg 5-24 tablet by [facility] tablet 00:00: mouth [place] 00 every Medical morning. Branch levothyroxi 2021-0 Yes [id number] 100ug Take 1 [facility] ne 100 mcg 5-24 tablet by [facility] of tablet 00:00: mouth [place] 00 every Medical morning. Branch levothyroxi 2021-0 Yes [id number] 100ug Take 1 [facility] ne 100 mcg 5-24 tablet by [facility] of tablet 00:00: mouth [place] 00 every Medical morning. Branch levothyroxi 2021-0 Yes [id number] 100ug Take 1 [facility] ne 100 mcg 5-24 tablet by [facility] tablet 00:00: mouth [place] 00 every Medical morning. Branch levothyroxi 2021-0 Yes [id number] 100ug Take 1 [facility] ne 100 mcg 5-24 tablet by [facility] tablet 00:00: mouth [place] 00 every Medical morning. Branch levothyroxi 2021-0 Yes [id number] 100ug Take 1 [facility] ne 100 mcg 5-24 tablet by [facility] of tablet 00:00: mouth [place] 00 every Medical morning. Branch levothyroxi 2021-0 Yes [id number] 100ug Take 1 [facility] ne 100 mcg 5-24 tablet by [facility] of tablet 00:00: mouth [place] 00 every Medical morning. Branch levothyroxi 2021-0 Yes [id number] 100ug Take 1 [facility] ne 100 mcg 5-24 tablet by [facility] of tablet 00:00: mouth [place] 00 every Medical morning. Branch levothyroxi 2021-0 Yes [id number] 100ug Take 1 [facility] ne 100 mcg 5-24 tablet by [facility] of tablet 00:00: mouth [place] 00 every Medical morning. Branch levothyroxi 2021-0 Yes [id number] 100ug Take 1 [facility] ne 100 mcg 5-24 tablet by [facility] of tablet 00:00: mouth [place] 00 every Medical morning. Branch levothyroxi 2021-0 Yes [id number] 100ug Take 1 [facility] ne 100 mcg 5-24 tablet by [facility] of tablet 00:00: mouth [place] 00 every Medical morning. Branch levothyroxi 2-0 Yes [id number] 100ug Take 1 [facility] ne 100 mcg 5-24 tablet by [facility] of tablet 00:00: mouth [place] 00 every Medical morning. Branch levothyroxi 2-0 Yes [id number] 100ug Take 1 [facility] ne 100 mcg 5-24 tablet by [facility] of tablet 00:00: mouth [place] 00 every Medical morning. Branch levothyroxi 2-0 Yes [id number] 100ug Take 1 [facility] ne 100 mcg 5-24 tablet by [facility] of tablet 00:00: mouth [place] 00 every Medical morning. Branch levothyroxi 2-0 Yes [id number] 100ug Take 1 [facility] ne 100 mcg 5-24 tablet by [facility] of tablet 00:00: mouth [place] 00 every Medical morning. Branch levothyroxi 2021-0 Yes [id number] 100ug Take 1 [facility] ne 100 mcg 5-24 tablet by [facility] of tablet 00:00: mouth [place] 00 every Medical morning. Branch levothyroxi 2021-0 Yes [id number] 100ug Take 1 [facility] ne 100 mcg 5-24 tablet by [facility] of tablet 00:00: mouth [place] 00 every Medical morning. Branch levothyroxi 2021-0 Yes [id number] 100ug Take 1 [facility] ne 100 mcg 5-24 tablet by [facility] of tablet 00:00: mouth [place] 00 every Medical morning. Branch levothyroxi 2021-0 Yes [id number] 100ug Take 1 [facility] ne 100 mcg 5-24 tablet by [facility] of tablet 00:00: mouth [place] 00 every Medical morning. Branch levothyroxi 2021-0 Yes [id number] 100ug Take 1 [facility] ne 100 mcg 5-24 tablet by [facility] of tablet 00:00: mouth [place] 00 every Medical morning. Branch levothyroxi 2021-0 Yes [id number] 100ug Take 1 [facility] ne 100 mcg 5-24 tablet by [facility] of tablet 00:00: mouth [place] 00 every Medical morning. Branch levothyroxi 2021-0 Yes [id number] 100ug Take 1 [facility] ne 100 mcg 5-24 tablet by [facility] of tablet 00:00: mouth [place] 00 every Medical morning. Branch levothyroxi 2021-0 Yes [id number] 100ug Take 1 [facility] ne 100 mcg 5-24 tablet by [facility] of tablet 00:00: mouth [place] 00 every Medical morning. Branch levothyroxi 2021-0 Yes [id number] 100ug Take 1 [facility] ne 100 mcg 5-24 tablet by [facility] of tablet 00:00: mouth [place] 00 every Medical morning. Branch levothyroxi 2021-0 Yes [id number] 100ug Take 1 [facility] ne 100 mcg 5-24 tablet by [facility] of tablet 00:00: mouth [place] 00 every Medical morning. Branch levothyroxi 2021-0 Yes [id number] 100ug Take 1 [facility] ne 100 mcg 5-24 tablet by [facility] of tablet 00:00: mouth [place] 00 every Medical morning. Branch levothyroxi 2021-0 Yes [id number] 100ug Take 1 [facility] ne 100 mcg 5-24 tablet by [facility] of tablet 00:00: mouth [place] 00 every Medical morning. Branch levothyroxi 2-0 Yes [id number] 100ug Take 1 [facility] ne 100 mcg 5-24 tablet by [facility] of tablet 00:00: mouth [place] 00 every Medical morning. Branch levothyroxi 2-0 Yes [id number] 100ug Take 1 [facility] ne 100 mcg 5-24 tablet by [facility] of tablet 00:00: mouth [place] 00 every Medical morning. Branch levothyroxi 2-0 Yes [id number] 100ug Take 1 [facility] ne 100 mcg 5-24 tablet by [facility] of tablet 00:00: mouth [place] 00 every Medical morning. Branch levothyroxi 2-0 Yes [id number] 100ug Take 1 [facility] ne 100 mcg 5-24 tablet by [facility] of tablet 00:00: mouth [place] 00 every Medical morning. Branch levothyroxi 2-0 Yes [id number] 100ug Take 1 [facility] ne 100 mcg 5-24 tablet by [facility] of tablet 00:00: mouth [place] 00 every Medical morning. Branch levothyroxi 2-0 Yes [id number] 100ug Take 1 [facility] ne 100 mcg 5-24 tablet by [facility] of tablet 00:00: mouth [place] 00 every Medical morning. Branch levothyroxi 2-0 Yes [id number] 100ug Take 1 [facility] ne 100 mcg 5-24 tablet by [facility] of tablet 00:00: mouth [place] 00 every Medical morning. Branch levothyroxi 2-0 Yes [id number] 100ug Take 1 [facility] ne 100 mcg 5-24 tablet by [facility] of tablet 00:00: mouth [place] 00 every Medical morning. Branch levothyroxi 2-0 Yes [id number] 100ug Take 1 [facility] ne 100 mcg 5-24 tablet by [facility] of tablet 00:00: mouth [place] 00 every Medical morning. Branch levothyroxi 2-0 Yes [id number] 100ug Take 1 [facility] ne 100 mcg 5-24 tablet by [facility] of tablet 00:00: mouth [place] 00 every Medical morning. Branch levothyroxi 2-0 Yes [id number] 100ug Take 1 [facility] ne 100 mcg 5-24 tablet by [facility] of tablet 00:00: mouth [place] 00 every Medical morning. Branch levothyroxi 2-0 Yes [id number] 100ug Take 1 [facility] ne 100 mcg 5-24 tablet by [facility] of tablet 00:00: mouth [place] 00 every Medical morning. Branch levothyroxi 2-0 Yes [id number] 100ug Take 1 [facility] ne 100 mcg 5-24 tablet by [facility] of tablet 00:00: mouth [place] 00 every Medical morning. Branch levothyroxi 2-0 Yes [id number] 100ug Take 1 [facility] ne 100 mcg 5-24 tablet by [facility] of tablet 00:00: mouth [place] 00 every Medical morning. Branch levothyroxi 2-0 Yes [id number] 100ug Take 1 [facility] ne 100 mcg 5-24 tablet by [facility] of tablet 00:00: mouth [place] 00 every Medical morning. Branch levothyroxi 2-0 Yes [id number] 100ug Take 1 [facility] ne 100 mcg 5-24 tablet by [facility] of tablet 00:00: mouth [place] 00 every Medical morning. Branch levothyroxi 2-0 Yes [id number] 100ug Take 1 [facility] ne 100 mcg 5-24 tablet by [facility] of tablet 00:00: mouth [place] 00 every Medical morning. Branch levothyroxi 2021-0 Yes [id number] 100ug Take 1 [facility] ne 100 mcg 5-24 tablet by [facility] of tablet 00:00: mouth [place] 00 every Medical morning. Branch levothyroxi 2-0 Yes [id number] 100ug Take 1 [facility] ne 100 mcg 5-24 tablet by [facility] of tablet 00:00: mouth [place] 00 every Medical morning. Branch levothyroxi 2-0 Yes [id number] 100ug Take 1 [facility] ne 100 mcg 5-24 tablet by [facility] of tablet 00:00: mouth [place] 00 every Medical morning. Branch levothyroxi 2-0 Yes [id number] 100ug Take 1 [facility] ne 100 mcg 5-24 tablet by [facility] of tablet 00:00: mouth [place] 00 every Medical morning. Branch levothyroxi 2-0 Yes [id number] 100ug Take 1 [facility] ne 100 mcg 5-24 tablet by [facility] of tablet 00:00: mouth [place] 00 every Medical morning. Branch levothyroxi 2-0 Yes [id number] 100ug Take 1 [facility] ne 100 mcg 5-24 tablet by [facility] of tablet 00:00: mouth [place] 00 every Medical morning. Branch levothyroxi 2022-0 Yes [id number] 100ug Take 1 [facility] ne 100 mcg 5-24 tablet by [facility] of tablet 00:00: mouth [place] 00 every Medical morning. Branch levothyroxi Yes [id number] 100ug Take 1 [facility] ne 100 mcg 5-24 tablet by [facility] of tablet 00:00: mouth [place] 00 every Medical morning. Branch pantoprazol Yes [id number] 40mg Take 1 [facility] e 40 mg EC 5-03 tablet by [facility] of tablet 00:00: mouth [place] 00 daily. Medical Branch benzonatate Yes [id number] 200mg Take 1 [facility] 200 mg 5-03 capsule by [facility] of capsule 00:00: mouth 3 (three) Medical times Branch daily as needed for Cough. And to decrease gag reflex with episodes of vomiting. lidocaine-p Yes [id number] Rub over [facility] rilocaine 5-03 port site it[facility] o f 2.5-2.5 % 00:00: before [place] cream 00 accessing. Medical Branch zaleplon 10 Yes [id number] 10mg Take 1 [facility] mg capsule 5-03 capsule by [facility] of 00:00: mouth at [place] 00 bedtime. Medical Branch XIFAXAN 550 Yes 550mg Take 550 [facility] mg tablet 5-03 mg by [facility] of 00:00: mouth 3 (three) Medical times Branch daily. Has not started as of 11/30 pantoprazol Yes [id number] 40mg Take 1 [facility] e 40 mg EC 5-03 tablet by [facility] of tablet 00:00: mouth [place] 00 daily. Medical Branch benzonatate Yes [id number] 200mg Take 1 [facility] 200 mg 5-03 capsule by [facility] of capsule 00:00: mouth 3 (three) Medical times Branch daily as needed for Cough. And to decrease gag reflex with episodes of vomiting. lidocaine-p Yes [id number] Rub over [facility] rilocaine 5-03 port site [facility] o f 2.5-2.5 % 00:00: before [place] cream 00 accessing. Medical Branch zaleplon 10 Yes [id number] 10mg Take 1 [facility] mg capsule 5-03 capsule by [facility] of 00:00: mouth at [place] 00 bedtime. Medical Branch XIFAXAN 550 Yes 550mg Take 550 [facility] n[facility] mg tablet 5-03 mg by [facility]y of 00:00: mouth 3 (three) Medical times Branch daily. Has not started as of 11/30 pantoprazol Yes [id number] 40mg Take 1 [facility] e 40 mg EC 5-03 tablet by [facility] of tablet 00:00: mouth 00 daily. Medical Branch benzonatate Yes [id number] 200mg Take 1 [facility] 200 mg 5-03 capsule by [facility] of capsule 00:00: mouth 3 (three) Medical times Branch daily as needed for Cough. And to decrease gag reflex with episodes of vomiting. lidocaine-p Yes [id number] Rub over [facility] rilocaine 5-03 port site it[facility] o f 2.5-2.5 % 00:00: before [place] cream 00 accessing. Medical Branch zaleplon 10 Yes [id number] 10mg Take 1 [facility] mg capsule 5-03 capsule by [facility]y of 00:00: mouth at [place] bedtime. Medical Branch XIFAXAN 550 Yes 550mg Take 550 [facility] n[facility] mg tablet 5-03 mg by ity of 00:00: mouth 3 (three) Medical times Branch daily. Has not started as of 11/30 pantoprazol Yes [id number] 40mg Take 1 [facility] e 40 mg EC 5-03 tablet by [facility] of tablet 00:00: mouth daily. Medical Branch benzonatate Yes [id number] 200mg Take 1 [facility] 200 mg 5-03 capsule by [facility] of capsule 00:00: mouth 3 (three) Medical times Branch daily as needed for Cough. And to decrease gag reflex with episodes of vomiting. lidocaine-p 2021- Yes [id number] Rub over [facility] rilocaine 5-03 port site it[facility] o f 2.5-2.5 % 00:00: before [place] cream 00 accessing. Medical Branch zaleplon 10 Yes [id number] 10mg Take 1 [facility] mg capsule 5-03 capsule by [facility] of 00:00: mouth at [place] 00 bedtime. Medical Branch XIFAXAN 550 Yes 550mg Take 550 [facility] n[facility] mg tablet 5-03 mg by ity of 00:00: mouth 3 (three) Medical times Branch daily. Has not started as of 11/30 pantoprazol Yes [id number] 40mg Take 1 [facility] e 40 mg EC 5-03 tablet by [facility]y of tablet 00:00: mouth 00 daily. Medical Branch benzonatate Yes [id number] 200mg Take 1 [facility] 200 mg 5-03 capsule by [facility] of capsule 00:00: mouth (three) Medical times Branch daily as needed for Cough. And to decrease gag reflex with episodes of vomiting. lidocaine-p Yes [id number] Rub over [facility] rilocaine 5-03 port site ity o f 2.5-2.5 % 00:00: before [place] cream 00 accessing. Medical Branch zaleplon 10 Yes [id number] 10mg Take 1 [facility] mg capsule 5-03 capsule by [facility]y of 00:00: mouth at [place] bedtime. Medical Branch XIFAXAN 550 Yes 550mg Take 550 [facility] n[facility] mg tablet 5-03 mg by ity of 00:00: mouth (three) Medical times Branch daily. Has not started as of 11/30 pantoprazol Yes [id number] 40mg Take 1 [facility] e 40 mg EC 5-03 tablet by [facility] of tablet 00:00: mouth 00 daily. Medical Branch benzonatate Yes [id number] 200mg Take 1 [facility] 200 mg 5-03 capsule by [facility] of capsule 00:00: mouth (three) Medical times Branch daily as needed for Cough. And to decrease gag reflex with episodes of vomiting. zaleplon 10 Yes [id number] 10mg Take 1 [facility] mg capsule 5-03 capsule by [facility] of 00:00: mouth at [place] 00 bedtime. Medical Branch pantoprazol Yes [id number] 40mg Take 1 [facility] e 40 mg EC 5-03 tablet by [facility]y of tablet 00:00: mouth 00 daily. Medical Branch benzonatate Yes [id number] 200mg Take 1 [facility] 200 mg 5-03 capsule by [facility] of capsule 00:00: mouth (three) Medical times Branch daily as needed for Cough. And to decrease gag reflex with episodes of vomiting. zaleplon 10 Yes [id number] 10mg Take 1 [facility] mg capsule 5-03 capsule by [facility] of 00:00: mouth at [place] 00 bedtime. Medical Branch pantoprazol Yes [id number] 40mg Take 1 [facility] e 40 mg EC 5-03 tablet by ity of tablet 00:00: mouth [place] 00 daily. Medical Branch benzonatate Yes [id number] 200mg Take 1 [facility] 200 mg 5-03 capsule by [facility] of capsule 00:00: mouth 3 [place] 00 (three) Medical times Branch daily as needed for Cough. And to decrease gag reflex with episodes of vomiting. zaleplon 10 Yes [id number] 10mg Take 1 [facility] mg capsule 5-03 capsule by [facility] of 00:00: mouth at [place] 00 bedtime. Medical Branch pantoprazol Yes [id number] 40mg Take 1 [facility] e 40 mg EC 5-03 tablet by [facility]y of tablet 00:00: mouth [place] 00 daily. Medical Branch benzonatate Yes [id number] 200mg Take 1 [facility] 200 mg 5-03 capsule by [facility]y of capsule 00:00: mouth 3 00 (three) Medical times Branch daily as needed for Cough. And to decrease gag reflex with episodes of vomiting. zaleplon 10 Yes [id number] 10mg Take 1 [facility] mg capsule 5-03 capsule by [facility] of 00:00: mouth at [place] 00 bedtime. Medical Branch pantoprazol Yes [id number] 40mg Take 1 [facility] e 40 mg EC 5-03 tablet by [facility] of tablet 00:00: mouth [place] 00 daily. Medical Branch benzonatate Yes [id number] 200mg Take 1 [facility] 200 mg 5-03 capsule by [facility] of capsule 00:00: mouth 3 00 (three) Medical times Branch daily as needed for Cough. And to decrease gag reflex with episodes of vomiting. zaleplon 10 Yes [id number] 10mg Take 1 [facility] mg capsule 5-03 capsule by [facility] of 00:00: mouth at [place] 00 bedtime. Medical Branch pantoprazol Yes [id number] 40mg Take 1 [facility] e 40 mg EC 5-03 tablet by ity of tablet 00:00: mouth [place] 00 daily. Medical Branch benzonatate Yes [id number] 200mg Take 1 [facility] 200 mg 5-03 capsule by [facility] of capsule 00:00: mouth 3 (three) Medical times Branch daily as needed for Cough. And to decrease gag reflex with episodes of vomiting. zaleplon 10 Yes [id number] 10mg Take 1 [facility] mg capsule 5-03 capsule by [facility] of 00:00: mouth at [place] 00 bedtime. Medical Branch pantoprazol Yes [id number] 40mg Take 1 [facility] e 40 mg EC 5-03 tablet by ity of tablet 00:00: mouth [place] 00 daily. Medical Branch benzonatate Yes [id number] 200mg Take 1 [facility] 200 mg 5-03 capsule by [facility] of capsule 00:00: mouth 3 (three) Medical times [place] daily as needed for Cough. And to decrease gag reflex with episodes of vomiting. zaleplon 10 Yes [id number] 10mg Take 1 [facility] mg capsule 5-03 capsule by [facility] of 00:00: mouth at [place] 00 bedtime. Medical Branch pantoprazol Yes [id number] 40mg Take 1 [facility] e 40 mg EC 5-03 tablet by ity of tablet 00:00: mouth [place] 00 daily. Medical Branch benzonatate Yes [id number] 200mg Take 1 [facility] 200 mg 5-03 capsule by [facility]y of capsule 00:00: mouth 3 00 (three) Medical times [place] daily as needed for Cough. And to decrease gag reflex with episodes of vomiting. zaleplon 10 Yes [id number] 10mg Take 1 [facility] mg capsule 5-03 capsule by ity of 00:00: mouth at [place] 00 bedtime. Medical Branch pantoprazol Yes [id number] 40mg Take 1 [facility] e 40 mg EC 5-03 tablet by ity of tablet 00:00: mouth [place] 00 daily. Medical Branch benzonatate Yes [id number] 200mg Take 1 [facility] 200 mg 5-03 capsule by [facility] of capsule 00:00: mouth 3 00 (three) Medical times [place] daily as needed for Cough. And to decrease gag reflex with episodes of vomiting. zaleplon 10 Yes [id number] 10mg Take 1 [facility] mg capsule 5-03 capsule by [facility] of 00:00: mouth at [place] 00 bedtime. Medical Branch pantoprazol Yes [id number] 40mg Take 1 [facility] e 40 mg EC 5-03 tablet by ity of tablet 00:00: mouth [place] 00 daily. Medical Branch benzonatate Yes [id number] 200mg Take 1 [facility] 200 mg 5-03 capsule by [facility]y of capsule 00:00: mouth 3 [place] 00 (three) Medical times Branch daily as needed for Cough. And to decrease gag reflex with episodes of vomiting. zaleplon 10 Yes [id number] 10mg Take 1 [facility] mg capsule 5-03 capsule by [facility] of 00:00: mouth at [place] 00 bedtime. Medical Branch pantoprazol Yes [id number] 40mg Take 1 [facility] e 40 mg EC 5-03 tablet by ity of tablet 00:00: mouth [place] 00 daily. Medical Branch benzonatate Yes [id number] 200mg Take 1 [facility] 200 mg 5-03 capsule by it[facility] of capsule 00:00: mouth 3 00 (three) Medical times [place] daily as needed for Cough. And to decrease gag reflex with episodes of vomiting. zaleplon 10 Yes [id number] 10mg Take 1 [facility] mg capsule 5-03 capsule by [facility]y of 00:00: mouth at [place] 00 bedtime. Medical Branch pantoprazol Yes [id number] 40mg Take 1 [facility] e 40 mg EC 5-03 tablet by ity of tablet 00:00: mouth [place] 00 daily. Medical Branch benzonatate Yes [id number] 200mg Take 1 [facility] 200 mg 5-03 capsule by [facility]y of capsule 00:00: mouth 3 00 (three) Medical times Branch daily as needed for Cough. And to decrease gag reflex with episodes of vomiting. zaleplon 10 Yes [id number] 10mg Take 1 [facility] mg capsule 5-03 capsule by [facility]y of 00:00: mouth at [place] 00 bedtime. Medical [facility] pantoprazol Yes [id number] 40mg Take 1 [facility] e 40 mg EC 5-03 tablet by ity of tablet 00:00: mouth [place] 00 daily. Medical Branch benzonatate Yes [id number] 200mg Take 1 [facility] 200 mg 5-03 capsule by ity of capsule 00:00: mouth 3 (three) Medical times Branch daily as needed for Cough. And to decrease gag reflex with episodes of vomiting. zaleplon 10 Yes [id number] 10mg Take 1 [facility] mg capsule 5-03 capsule by [facility] of 00:00: mouth at [place] 00 bedtime. Medical Branch pantoprazol Yes [id number] 40mg Take 1 [facility] e 40 mg EC 5-03 tablet by ity of tablet 00:00: mouth [place] 00 daily. Medical Branch benzonatate Yes [id number] 200mg Take 1 [facility] 200 mg 5-03 capsule by ity of capsule 00:00: mouth 3 (three) Medical times [place] daily as needed for Cough. And to decrease gag reflex with episodes of vomiting. zaleplon 10 Yes [id number] 10mg Take 1 [facility] mg capsule 5-03 capsule by ity of 00:00: mouth at [place] 00 bedtime. Medical Branch pantoprazol Yes [id number] 40mg Take 1 [facility] e 40 mg EC 5-03 tablet by ity of tablet 00:00: mouth [place] 00 daily. Medical Branch benzonatate Yes [id number] 200mg Take 1 [facility] 200 mg 5-03 capsule by ity of capsule 00:00: mouth 3 (three) Medical times [place] daily as needed for Cough. And to decrease gag reflex with episodes of vomiting. zaleplon 10 Yes [id number] 10mg Take 1 [facility]-03 [facility] 00:00: mouth at [place] 00 bedtime. [facility] pantoprazol Yes [id number] 40mg Take 1 [facility] e 40 mg EC 5-03 tablet by [facility] tablet 00:00: mouth [place] 00 daily. [facility] benzonatate Yes [id number] 200mg Take 1 [facility] 200 mg 5-03 capsule by [facility] capsule 00:00: mouth 3 00 (three) Medical times [facility] daily as needed for Cough. And to decrease gag reflex with episodes of vomiting. zaleplon 10 Yes [id number] 10mg Take 1 [facility] mg capsule 5-03 capsule by [facility] 00:00: mouth at [place] 00 bedtime. [facility] pantoprazol Yes [id number] 40mg Take 1 [facility] e 40 mg EC 5-03 tablet by [facility] tablet 00:00: mouth [place] 00 daily. [facility] benzonatate Yes [id number] 200mg Take 1 [facility] 200 mg 5-03 capsule by [facility] capsule 00:00: mouth 3 (three) Medical times [facility] daily as needed for Cough. And to decrease gag reflex with episodes of vomiting. zaleplon 10 Yes [id number] 10mg Take 1 [facility] mg capsule 5-03 capsule by [facility] 00:00: mouth at [place] 00 bedtime. [facility] pantoprazol Yes [id number] 40mg Take 1 [facility] e 40 mg EC 5-03 tablet by [facility] tablet 00:00: mouth [place] 00 daily. [facility] benzonatate Yes [id number] 200mg Take 1 [facility] 200 mg 5-03 capsule by [facility] capsule 00:00: mouth 3 (three) Medical times [place] daily as needed for Cough. And to decrease gag reflex with episodes of vomiting. zaleplon 10 Yes [id number] 10mg Take 1 [facility] mg capsule 5-03 capsule by [facility] 00:00: mouth at [place] 00 bedtime. [facility] pantoprazol Yes [id number] 40mg Take 1 [facility] e 40 mg EC 5-03 tablet by [facility] tablet 00:00: mouth [place] 00 daily. [facility] benzonatate Yes [id number] 200mg Take 1 [facility] 200 mg 5-03 capsule by [facility] capsule 00:00: mouth 3 (three) Medical times [place] daily as needed for Cough. And to decrease gag reflex with episodes of vomiting. zaleplon 10 Yes [id number] 10mg Take 1 [facility] mg capsule 5-03 capsule by [facility] 00:00: mouth at [place] 00 bedtime. [facility] pantoprazol Yes [id number] 40mg Take 1 [facility] e 40 mg EC 5-03 tablet by [facility] tablet 00:00: mouth [place] 00 daily. [facility] benzonatate Yes [id number] 200mg Take 1 [facility] 200 mg 5-03 capsule by [facility] capsule 00:00: mouth 3 (three) Medical times [facility] daily as needed for Cough. And to decrease gag reflex with episodes of vomiting. zaleplon 10 Yes [id number] 10mg Take 1 [facility] mg capsule 5-03 capsule by [facility] 00:00: mouth at [place] 00 bedtime. [facility] pantoprazol Yes [id number] 40mg Take 1 [facility] 40 mg EC 5-03 tablet by [facility] tablet 00:00: mouth [place] 00 daily. [facility] benzonatate Yes [id number] 200mg Take 1 [facility] 200 mg 5-03 capsule by [facility] capsule 00:00: mouth 3 (three) Medical times [facility] daily as needed for Cough. And to decrease gag reflex with episodes of vomiting. zaleplon 10 Yes [id number] 10mg Take 1 [facility] mg capsule 5-03 capsule by [facility] 00:00: mouth at [place] 00 bedtime. [facility] pantoprazol Yes [id number] 40mg Take 1 [facility] 40 mg EC 5-03 tablet by [facility] tablet 00:00: mouth [place] 00 daily. [facility] benzonatate Yes [id number] 200mg Take 1 [facility] 200 mg 5-03 capsule by [facility] capsule 00:00: mouth 3 00 (three) Medical times [facility] daily as needed for Cough. And to decrease gag reflex with episodes of vomiting. zaleplon 10 Yes [id number] 10mg Take 1 [facility] mg capsule 5-03 capsule by [facility] 00:00: mouth at [place] 00 bedtime. [facility] pantoprazol Yes [id number] 40mg Take 1 [facility] 40 mg EC 5-03 tablet by [facility] tablet 00:00: mouth [place] 00 daily. [facility] benzonatate Yes [id number] 200mg Take 1 [facility] 200 mg 5-03 capsule by [facility] capsule 00:00: mouth 3 00 (three) Medical times [facility] daily as needed for Cough. And to decrease gag reflex with episodes of vomiting. zaleplon 10 Yes [id number] 10mg Take 1 [facility] mg capsule 5-03 capsule by [facility] 00:00: mouth at [place] 00 bedtime. [facility] pantoprazol Yes [id number] 40mg Take 1 [facility] 40 mg EC 5-03 tablet by [facility] tablet 00:00: mouth [place] 00 daily. [facility] benzonatate Yes [id number] 200mg Take 1 [facility] 200 mg 5-03 capsule by [facility] capsule 00:00: mouth 3 (three) Medical times [place] daily as needed for Cough. And to decrease gag reflex with episodes of vomiting. zaleplon 10 Yes [id number] 10mg Take 1 [facility] mg capsule 5-03 capsule by [facility] 00:00: mouth at [place] 00 bedtime. [facility] pantoprazol Yes [id number] 40mg Take 1 [facility] e 40 mg EC 5-03 tablet by [facility] tablet 00:00: mouth [place] 00 daily. [facility] benzonatate Yes [id number] 200mg Take 1 [facility] 200 mg 5-03 capsule by [facility] capsule 00:00: mouth (three) Medical times [place] daily as needed for Cough. And to decrease gag reflex with episodes of vomiting. zaleplon 10 Yes [id number] 10mg Take 1 [facility] mg capsule 5-03 capsule by [facility] 00:00: mouth at [place] 00 bedtime. [facility] pantoprazol Yes [id number] 40mg Take 1 [facility] e 40 mg EC 5-03 tablet by [facility] tablet 00:00: mouth [place] 00 daily. [facility] benzonatate Yes [id number] 200mg Take 1 [facility] 200 mg 5-03 capsule by [facility] capsule 00:00: mouth 3 (three) Medical times [place] daily as needed for Cough. And to decrease gag reflex with episodes of vomiting. zaleplon 10 Yes [id number] 10mg Take 1 [facility] mg capsule 5-03 capsule by [facility] 00:00: mouth at [place] 00 bedtime. [facility] pantoprazol Yes [id number] 40mg Take 1 [facility] e 40 mg EC 5-03 tablet by [facility] tablet 00:00: mouth [place] 00 daily. [facility] benzonatate Yes [id number] 200mg Take 1 [facility] 200 mg 5-03 capsule by [facility] capsule 00:00: mouth 3 (three) Medical times [facility] daily as needed for Cough. And to decrease gag reflex with episodes of vomiting. zaleplon 10 Yes [id number] 10mg Take 1 [facility] mg capsule 5-03 capsule by [facility] 00:00: mouth at [place] 00 bedtime. [facility] pantoprazol Yes [id number] 40mg Take 1 [facility] 40 mg EC 5-03 tablet by [facility] tablet 00:00: mouth [place] 00 daily. [facility] benzonatate Yes [id number] 200mg Take 1 [facility] 200 mg 5-03 capsule by [facility] capsule 00:00: mouth 3 (three) Medical times [facility] daily as needed for Cough. And to decrease gag reflex with episodes of vomiting. zaleplon 10 Yes [id number] 10mg Take 1 [facility] mg capsule 5-03 capsule by [facility] 00:00: mouth at [place] 00 bedtime. [facility] pantoprazol Yes [id number] 40mg Take 1 [facility] e 40 mg EC 5-03 tablet by [facility] tablet 00:00: mouth [place] 00 daily. [facility] benzonatate Yes [id number] 200mg Take 1 [facility] 200 mg 5-03 capsule by [facility] capsule 00:00: mouth 3 (three) Medical times [place] daily as needed for Cough. And to decrease gag reflex with episodes of vomiting. zaleplon 10 Yes [id number] 10mg Take 1 [facility] mg capsule 5-03 capsule by [facility] 00:00: mouth at [place] 00 bedtime. [facility] pantoprazol Yes [id number] 40mg Take 1 [facility] e 40 mg EC 5-03 tablet by [facility] tablet 00:00: mouth [place] 00 daily. [facility] benzonatate Yes [id number] 200mg Take 1 [facility] 200 mg 5-03 capsule by [facility] capsule 00:00: mouth 3 (three) Medical times [facility] daily as needed for Cough. And to decrease gag reflex with episodes of vomiting. zaleplon 10 Yes [id number] 10mg Take 1 [facility] mg capsule 5-03 capsule by [facility] 00:00: mouth at [place] 00 bedtime. [facility] pantoprazol Yes [id number] 40mg Take 1 [facility] e 40 mg EC 5-03 tablet by [facility] tablet 00:00: mouth [place] 00 daily. [facility] benzonatate Yes [id number] 200mg Take 1 [facility] 200 mg 5-03 capsule by [facility] capsule 00:00: mouth 3 (three) Medical times [facility] daily as needed for Cough. And to decrease gag reflex with episodes of vomiting. zaleplon 10 Yes [id number] 10mg Take 1 [facility] mg capsule 5-03 capsule by [facility] 00:00: mouth at [place] 00 bedtime. [facility] pantoprazol Yes [id number] 40mg Take 1 [facility] e 40 mg EC 5-03 tablet by [facility] tablet 00:00: mouth [place] 00 daily. [facility] benzonatate Yes [id number] 200mg Take 1 [facility] 200 mg 5-03 capsule by [facility] capsule 00:00: mouth 3 (three) Medical times [facility] daily as needed for Cough. And to decrease gag reflex with episodes of vomiting. zaleplon 10 Yes [id number] 10mg Take 1 [facility] mg capsule 5-03 capsule by [facility] 00:00: mouth at [place] 00 bedtime. [facility] pantoprazol Yes [id number] 40mg Take 1 [facility] e 40 mg EC 5-03 tablet by [facility] tablet 00:00: mouth [place] 00 daily. [facility] benzonatate Yes [id number] 200mg Take 1 [facility] 200 mg 5-03 capsule by [facility] capsule 00:00: mouth 3 (three) Medical times [facility] daily as needed for Cough. And to decrease gag reflex with episodes of vomiting. zaleplon 10 Yes [id number] 10mg Take 1 [facility] mg capsule 5-03 capsule by [facility] 00:00: mouth at [place] 00 bedtime. [facility] pantoprazol Yes [id number] 40mg Take 1 [facility] e 40 mg EC 5-03 tablet by [facility] tablet 00:00: mouth [place] 00 daily. [facility] benzonatate Yes [id number] 200mg Take 1 [facility] 200 mg 5-03 capsule by [facility] capsule 00:00: mouth 3 [place] 00 (three) Medical times [facility] daily as needed for Cough. And to decrease gag reflex with episodes of vomiting. zaleplon 10 Yes [id number] 10mg Take 1 [facility] mg capsule 5-03 capsule by [facility] 00:00: mouth at [place] 00 bedtime. [facility] pantoprazol Yes [id number] 40mg Take 1 [facility] e 40 mg EC 5-03 tablet by [facility] tablet 00:00: mouth [place] 00 daily. [facility] benzonatate Yes [id number] 200mg Take 1 [facility] 200 mg 5-03 capsule by [facility] capsule 00:00: mouth 3 (three) Medical times [facility] daily as needed for Cough. And to decrease gag reflex with episodes of vomiting. zaleplon 10 Yes [id number] 10mg Take 1 [facility] mg capsule 5-03 capsule by [facility] 00:00: mouth at [place] 00 bedtime. [facility] pantoprazol Yes [id number] 40mg Take 1 [facility] e 40 mg EC 5-03 tablet by [facility] tablet 00:00: mouth [place] 00 daily. [facility] benzonatate Yes [id number] 200mg Take 1 [facility] 200 mg 5-03 capsule by [facility] capsule 00:00: mouth 3 (three) Medical times [place] daily as needed for Cough. And to decrease gag reflex with episodes of vomiting. zaleplon 10 Yes [id number] 10mg Take 1 [facility] mg capsule 5-03 capsule by [facility] 00:00: mouth at [place] 00 bedtime. [facility] pantoprazol Yes [id number] 40mg Take 1 [facility] e 40 mg EC 5-03 tablet by [facility] tablet 00:00: mouth [place] 00 daily. [facility] benzonatate Yes [id number] 200mg Take 1 [facility] 200 mg 5-03 capsule by [facility] capsule 00:00: mouth 3 (three) Medical times [facility] daily as needed for Cough. And to decrease gag reflex with episodes of vomiting. zaleplon 10 Yes [id number] 10mg Take 1 [facility] mg capsule 5-03 capsule by [facility] 00:00: mouth at [place] 00 bedtime. [facility] pantoprazol Yes [id number] 40mg Take 1 [facility] e 40 mg EC 5-03 tablet by [facility] tablet 00:00: mouth [place] 00 daily. [facility] benzonatate Yes [id number] 200mg Take 1 [facility] 200 mg 5-03 capsule by [facility] capsule 00:00: mouth 3 (three) Medical times [place] daily as needed for Cough. And to decrease gag reflex with episodes of vomiting. zaleplon 10 Yes [id number] 10mg Take 1 [facility] mg capsule 5-03 capsule by [facility] 00:00: mouth at [place] 00 bedtime. [facility] pantoprazol Yes [id number] 40mg Take 1 [facility] e 40 mg EC 5-03 tablet by [facility] tablet 00:00: mouth [place] 00 daily. [facility] benzonatate Yes [id number] 200mg Take 1 [facility] 200 mg 5-03 capsule by [facility] capsule 00:00: mouth 3 (three) Medical times [place] daily as needed for Cough. And to decrease gag reflex with episodes of vomiting. zaleplon 10 Yes [id number] 10mg Take 1 [facility] mg capsule 5-03 capsule by [facility] 00:00: mouth at [place] 00 bedtime. [facility] pantoprazol Yes [id number] 40mg Take 1 [facility] e 40 mg EC 5-03 tablet by [facility] tablet 00:00: mouth [place] 00 daily. [facility] benzonatate Yes [id number] 200mg Take 1 [facility] 200 mg 5-03 capsule by [facility] capsule 00:00: mouth (three) Medical times [place] daily as needed for Cough. And to decrease gag reflex with episodes of vomiting. zaleplon 10 Yes [id number] 10mg Take 1 [facility] mg capsule 5-03 capsule by [facility] 00:00: mouth at [place] 00 bedtime. [facility] pantoprazol Yes [id number] 40mg Take 1 [facility] e 40 mg EC 5-03 tablet by [facility] tablet 00:00: mouth [place] 00 daily. [facility] benzonatate Yes [id number] 200mg Take 1 [facility] 200 mg 5-03 capsule by [facility] capsule 00:00: mouth 3 (three) Medical times [place] daily as needed for Cough. And to decrease gag reflex with episodes of vomiting. zaleplon 10 Yes [id number] 10mg Take 1 [facility] mg capsule 5-03 capsule by [facility] 00:00: mouth at [place] 00 bedtime. [facility] pantoprazol Yes [id number] 40mg Take 1 [facility] e 40 mg EC 5-03 tablet by [facility] tablet 00:00: mouth [place] 00 daily. [facility] benzonatate Yes [id number] 200mg Take 1 [facility] 200 mg 5-03 capsule by [facility] capsule 00:00: mouth 3 [place] 00 (three) Medical times [facility] daily as needed for Cough. And to decrease gag reflex with episodes of vomiting. zaleplon 10 Yes [id number] 10mg Take 1 [facility] mg capsule 5-03 capsule by [facility] 00:00: mouth at [place] 00 bedtime. [facility] pantoprazol Yes [id number] 40mg Take 1 [facility] e 40 mg EC 5-03 tablet by [facility] tablet 00:00: mouth [place] 00 daily. [facility] benzonatate Yes [id number] 200mg Take 1 [facility] 200 mg 5-03 capsule by [facility] capsule 00:00: mouth 3 00 (three) Medical times [facility] daily as needed for Cough. And to decrease gag reflex with episodes of vomiting. zaleplon 10 Yes [id number] 10mg Take 1 [facility] mg capsule 5-03 capsule by [facility] 00:00: mouth at [place] 00 bedtime. [facility] pantoprazol Yes [id number] 40mg Take 1 [facility] e 40 mg EC 5-03 tablet by [facility] tablet 00:00: mouth [place] 00 daily. [facility] benzonatate Yes [id number] 200mg Take 1 [facility] 200 mg 5-03 capsule by [facility] capsule 00:00: mouth 3 00 (three) Medical times [facility] daily as needed for Cough. And to decrease gag reflex with episodes of vomiting. zaleplon 10 Yes [id number] 10mg Take 1 [facility] mg capsule 5-03 capsule by [facility] 00:00: mouth at [place] 00 bedtime. [facility] pantoprazol Yes [id number] 40mg Take 1 [facility] e 40 mg EC 5-03 tablet by [facility] tablet 00:00: mouth [place] 00 daily. [facility] benzonatate Yes [id number] 200mg Take 1 [facility] 200 mg 5-03 capsule by [facility] capsule 00:00: mouth 3 (three) Medical times [place] daily as needed for Cough. And to decrease gag reflex with episodes of vomiting. zaleplon 10 Yes [id number] 10mg Take 1 [facility] mg capsule 5-03 capsule by [facility] 00:00: mouth at [place] 00 bedtime. [facility] pantoprazol Yes [id number] 40mg Take 1 [facility] e 40 mg EC 5-03 tablet by [facility] tablet 00:00: mouth [place] 00 daily. [facility] benzonatate Yes [id number] 200mg Take 1 [facility] 200 mg 5-03 capsule by [facility] capsule 00:00: mouth 3 (three) Medical times [place] daily as needed for Cough. And to decrease gag reflex with episodes of vomiting. zaleplon 10 Yes [id number] 10mg Take 1 [facility] mg capsule 5-03 capsule by [facility] 00:00: mouth at [place] 00 bedtime. [facility] pantoprazol Yes [id number] 40mg Take 1 [facility] e 40 mg EC 5-03 tablet by [facility] tablet 00:00: mouth [place] 00 daily. [facility] benzonatate Yes [id number] 200mg Take 1 [facility] 200 mg 5-03 capsule by [facility] capsule 00:00: mouth 3 (three) Medical times [place] daily as needed for Cough. And to decrease gag reflex with episodes of vomiting. zaleplon 10 Yes [id number] 10mg Take 1 [facility] mg capsule 5-03 capsule by [facility] 00:00: mouth at [place] 00 bedtime. [facility] pantoprazol Yes [id number] 40mg Take 1 [facility] e 40 mg EC 5-03 tablet by [facility] tablet 00:00: mouth [place] 00 daily. [facility] benzonatate Yes [id number] 200mg Take 1 [facility] 200 mg 5-03 capsule by [facility] capsule 00:00: mouth 3 00 (three) Medical times [place] daily as needed for Cough. And to decrease gag reflex with episodes of vomiting. zaleplon 10 Yes [id number] 10mg Take 1 [facility] mg capsule 5-03 capsule by [facility] 00:00: mouth at [place] 00 bedtime. [facility] pantoprazol Yes [id number] 40mg Take 1 [facility] e 40 mg EC 5-03 tablet by [facility] tablet 00:00: mouth [place] 00 daily. [facility] benzonatate Yes [id number] 200mg Take 1 [facility] 200 mg 5-03 capsule by [facility] capsule 00:00: mouth 3 [place] 00 (three) Medical times [facility] daily as needed for Cough. And to decrease gag reflex with episodes of vomiting. zaleplon 10 Yes [id number] 10mg Take 1 [facility] mg capsule 5-03 capsule by [facility] 00:00: mouth at [place] 00 bedtime. [facility] pantoprazol Yes [id number] 40mg Take 1 [facility] e 40 mg EC 5-03 tablet by [facility] tablet 00:00: mouth [place] 00 daily. [facility] benzonatate Yes [id number] 200mg Take 1 [facility] 200 mg 5-03 capsule by [facility] capsule 00:00: mouth 3 00 (three) Medical times [place] daily as needed for Cough. And to decrease gag reflex with episodes of vomiting. zaleplon 10 Yes [id number] 10mg Take 1 [facility] mg capsule 5-03 capsule by [facility] 00:00: mouth at [place] 00 bedtime. [facility] pantoprazol Yes [id number] 40mg Take 1 [facility] e 40 mg EC 5-03 tablet by [facility] tablet 00:00: mouth [place] 00 daily. [facility] benzonatate Yes [id number] 200mg Take 1 [facility] 200 mg 5-03 capsule by [facility] capsule 00:00: mouth 3 00 (three) Medical times [facility] daily as needed for Cough. And to decrease gag reflex with episodes of vomiting. zaleplon 10 Yes [id number] 10mg Take 1 [facility] mg capsule 5-03 capsule by [facility] 00:00: mouth at [place] 00 bedtime. [facility] pantoprazol Yes [id number] 40mg Take 1 [facility] e 40 mg EC 5-03 tablet by [facility] tablet 00:00: mouth [place] 00 daily. [facility] benzonatate Yes [id number] 200mg Take 1 [facility] 200 mg 5-03 capsule by [facility] capsule 00:00: mouth 3 (three) Medical times [facility] daily as needed for Cough. And to decrease gag reflex with episodes of vomiting. zaleplon 10 Yes [id number] 10mg Take 1 [facility] mg capsule 5-03 capsule by [facility] 00:00: mouth at [place] 00 bedtime. [facility] pantoprazol Yes [id number] 40mg Take 1 [facility] e 40 mg EC 5-03 tablet by [facility] tablet 00:00: mouth [place] 00 daily. [facility] benzonatate Yes [id number] 200mg Take 1 [facility] 200 mg 5-03 capsule by [facility] capsule 00:00: mouth 3 (three) Medical times [place] daily as needed for Cough. And to decrease gag reflex with episodes of vomiting. zaleplon 10 Yes [id number] 10mg Take 1 [facility] mg capsule 5-03 capsule by [facility] 00:00: mouth at [place] 00 bedtime. [facility] pantoprazol Yes [id number] 40mg Take 1 [facility] e 40 mg EC 5-03 tablet by [facility] tablet 00:00: mouth [place] 00 daily. [facility] benzonatate Yes [id number] 200mg Take 1 [facility] 200 mg 5-03 capsule by [facility] capsule 00:00: mouth 3 00 (three) Medical times [place] daily as needed for Cough. And to decrease gag reflex with episodes of vomiting. zaleplon 10 Yes [id number] 10mg Take 1 [facility] mg capsule 5-03 capsule by [facility] 00:00: mouth at [place] 00 bedtime. [facility] pantoprazol Yes [id number] 40mg Take 1 [facility] e 40 mg EC 5-03 tablet by [facility] tablet 00:00: mouth [place] 00 daily. [facility] benzonatate Yes [id number] 200mg Take 1 [facility] 200 mg 5-03 capsule by [facility] capsule 00:00: mouth 3 00 (three) Medical times [facility] daily as needed for Cough. And to decrease gag reflex with episodes of vomiting. zaleplon 10 Yes [id number] 10mg Take 1 [facility] mg capsule 5-03 capsule by [facility] 00:00: mouth at [place] 00 bedtime. [facility] pantoprazol Yes [id number] 40mg Take 1 [facility] e 40 mg EC 5-03 tablet by [facility] tablet 00:00: mouth [place] 00 daily. [facility] benzonatate Yes [id number] 200mg Take 1 [facility] 200 mg 5-03 capsule by [facility] capsule 00:00: mouth 3 (three) Medical times [facility] daily as needed for Cough. And to decrease gag reflex with episodes of vomiting. zaleplon 10 Yes [id number] 10mg Take 1 [facility] mg capsule 5-03 capsule by [facility] 00:00: mouth at [place] 00 bedtime. [facility] pantoprazol Yes [id number] 40mg Take 1 [facility] e 40 mg EC 5-03 tablet by [facility] tablet 00:00: mouth [place] 00 daily. [facility] benzonatate Yes [id number] 200mg Take 1 [facility] 200 mg 5-03 capsule by [facility] capsule 00:00: mouth 3 (three) Medical times [place] daily as needed for Cough. And to decrease gag reflex with episodes of vomiting. zaleplon 10 Yes [id number] 10mg Take 1 [facility] mg capsule 5-03 capsule by [facility] 00:00: mouth at [place] 00 bedtime. [facility] pantoprazol Yes [id number] 40mg Take 1 [facility] e 40 mg EC 5-03 tablet by [facility] tablet 00:00: mouth [place] 00 daily. [facility] benzonatate Yes [id number] 200mg Take 1 [facility] 200 mg 5-03 capsule by [facility] capsule 00:00: mouth 3 (three) Medical times [place] daily as needed for Cough. And to decrease gag reflex with episodes of vomiting. zaleplon 10 Yes [id number] 10mg Take 1 [facility] mg capsule 5-03 capsule by [facility] 00:00: mouth at [place] 00 bedtime. [facility] pantoprazol Yes [id number] 40mg Take 1 [facility] e 40 mg EC 5-03 tablet by [facility] tablet 00:00: mouth [place] 00 daily. [facility] benzonatate Yes [id number] 200mg Take 1 [facility] 200 mg 5-03 capsule by [facility] capsule 00:00: mouth 3 00 (three) Medical times [facility] daily as needed for Cough. And to decrease gag reflex with episodes of vomiting. zaleplon 10 Yes [id number] 10mg Take 1 [facility] mg capsule 5-03 capsule by [facility] 00:00: mouth at [place] 00 bedtime. [facility] pantoprazol Yes [id number] 40mg Take 1 [facility] e 40 mg EC 5-03 tablet by [facility] tablet 00:00: mouth [place] 00 daily. [facility] benzonatate Yes [id number] 200mg Take 1 [facility] 200 mg 5-03 capsule by [facility] capsule 00:00: mouth 3 (three) Medical times [facility] daily as needed for Cough. And to decrease gag reflex with episodes of vomiting. zaleplon 10 Yes [id number] 10mg Take 1 [facility] mg capsule 5-03 capsule by [facility] 00:00: mouth at [place] 00 bedtime. [facility] pantoprazol Yes [id number] 40mg Take 1 [facility] e 40 mg EC 5-03 tablet by [facility] tablet 00:00: mouth [place] 00 daily. [facility] benzonatate Yes [id number] 200mg Take 1 [facility] 200 mg 5-03 capsule by [facility] capsule 00:00: mouth 3 00 (three) Medical times [facility] daily as needed for Cough. And to decrease gag reflex with episodes of vomiting. zaleplon 10 Yes [id number] 10mg Take 1 [facility] mg capsule 5-03 capsule by [facility] 00:00: mouth at [place] 00 bedtime. [facility] pantoprazol Yes [id number] 40mg Take 1 [facility] e 40 mg EC 5-03 tablet by [facility] tablet 00:00: mouth [place] 00 daily. [facility] benzonatate Yes [id number] 200mg Take 1 [facility] 200 mg 5-03 capsule by [facility] capsule 00:00: mouth 3 00 (three) Medical times [facility] daily as needed for Cough. And to decrease gag reflex with episodes of vomiting. zaleplon 10 Yes [id number] 10mg Take 1 [facility] mg capsule 5-03 capsule by [facility] 00:00: mouth at [place] 00 bedtime. [facility] pantoprazol Yes [id number] 40mg Take 1 [facility] e 40 mg EC 5-03 tablet by [facility] tablet 00:00: mouth [place] 00 daily. [facility] benzonatate Yes [id number] 200mg Take 1 [facility] 200 mg 5-03 capsule by [facility] capsule 00:00: mouth 3 (three) Medical times [place] daily as needed for Cough. And to decrease gag reflex with episodes of vomiting. zaleplon 10 Yes [id number] 10mg Take 1 [facility] mg capsule 5-03 capsule by [facility] 00:00: mouth at [place] 00 bedtime. [facility] pantoprazol Yes [id number] 40mg Take 1 [facility] e 40 mg EC 5-03 tablet by [facility] tablet 00:00: mouth [place] 00 daily. [facility] benzonatate Yes [id number] 200mg Take 1 [facility] 200 mg 5-03 capsule by [facility] capsule 00:00: mouth (three) Medical times [place] daily as needed for Cough. And to decrease gag reflex with episodes of vomiting. zaleplon 10 Yes [id number] 10mg Take 1 [facility] mg capsule 5-03 capsule by [facility] 00:00: mouth at [place] 00 bedtime. [facility] pantoprazol Yes [id number] 40mg Take 1 [facility] e 40 mg EC 5-03 tablet by [facility] tablet 00:00: mouth 00 daily. [facility] benzonatate Yes [id number] 200mg Take 1 [facility] 200 mg 5-03 capsule by [facility] capsule 00:00: mouth 3 (three) Medical times [place] daily as needed for Cough. And to decrease gag reflex with episodes of vomiting. zaleplon 10 Yes [id number] 10mg Take 1 [facility] mg capsule 5-03 capsule by [facility] 00:00: mouth at [place] 00 bedtime. [facility] pantoprazol Yes [id number] 40mg Take 1 [facility] e 40 mg EC 5-03 tablet by [facility] tablet 00:00: mouth [place] 00 daily. [facility] benzonatate Yes [id number] 200mg Take 1 [facility] 200 mg 5-03 capsule by [facility] capsule 00:00: mouth 3 (three) Medical times Branch daily as needed for Cough. And to decrease gag reflex with episodes of vomiting. zaleplon 10 Yes [id number] 10mg Take 1 [facility] capsule [facility]-03 capsule by [facility] 00:00: mouth at [place] 00 bedtime. [facility] pantoprazol Yes [id number] 40mg Take 1 [facility] e 40 mg EC 5-03 tablet by [facility] tablet 00:00: mouth [place] 00 daily. [facility] benzonatate Yes [id number] 200mg Take 1 [facility] 200 mg 5-03 capsule by [facility] capsule 00:00: mouth 3 (three) Medical times [facility] daily as needed for Cough. And to decrease gag reflex with episodes of vomiting. zaleplon 10 Yes [id number] 10mg Take 1 [facility] mg capsule 5-03 capsule by [facility] 00:00: mouth at [place] 00 bedtime. [facility] pantoprazol Yes [id number] 40mg Take 1 [facility] e 40 mg EC 5-03 tablet by [facility] tablet 00:00: mouth 00 daily. [facility] benzonatate Yes [id number] 200mg Take 1 [facility] 200 mg 5-03 capsule by [facility] capsule 00:00: mouth (three) Medical times [facility] daily as needed for Cough. And to decrease gag reflex with episodes of vomiting. zaleplon 10 Yes [id number] 10mg Take 1 [facility] mg capsule 5-03 capsule by [facility] 00:00: mouth at [place] 00 bedtime. [facility] pantoprazol Yes [id number] 40mg Take 1 [facility] 40 mg EC 5-03 tablet by [facility] tablet 00:00: mouth [place] 00 daily. [facility] benzonatate Yes [id number] 200mg Take 1 [facility] 200 mg 5-03 capsule by [facility] capsule 00:00: mouth 3 (three) Medical times [facility] daily as needed for Cough. And to decrease gag reflex with episodes of vomiting. zaleplon 10 Yes [id number] 10mg Take 1 [facility] mg capsule 5-03 capsule by [facility] 00:00: mouth at [place] 00 bedtime. [facility] pantoprazol Yes [id number] 40mg Take 1 [facility] 40 mg EC 5-03 tablet by [facility] tablet 00:00: mouth [place] 00 daily. [facility] benzonatate Yes [id number] 200mg Take 1 [facility] 200 mg 5-03 capsule by [facility] capsule 00:00: mouth 3 (three) Medical times [facility] daily as needed for Cough. And to decrease gag reflex with episodes of vomiting. zaleplon 10 Yes [id number] 10mg Take 1 [facility] mg capsule 5-03 capsule by [facility] 00:00: mouth at [place] 00 bedtime. [facility] pantoprazol Yes [id number] 40mg Take 1 [facility] e 40 mg EC 5-03 tablet by [facility] tablet 00:00: mouth [place] 00 daily. [facility] benzonatate Yes [id number] 200mg Take 1 [facility] 200 mg 5-03 capsule by [facility] capsule 00:00: mouth 3 (three) Medical times [place] daily as needed for Cough. And to decrease gag reflex with episodes of vomiting. zaleplon 10 Yes [id number] 10mg Take 1 [facility] mg capsule 5-03 capsule by [facility] 00:00: mouth at [place] 00 bedtime. [facility] pantoprazol Yes [id number] 40mg Take 1 [facility] 40 mg EC 5-03 tablet by [facility] tablet 00:00: mouth [place] 00 daily. [facility] benzonatate Yes [id number] 200mg Take 1 [facility] 200 mg 5-03 capsule by [facility] capsule 00:00: mouth 3 (three) Medical times [place] daily as needed for Cough. And to decrease gag reflex with episodes of vomiting. zaleplon 10 Yes [id number] 10mg Take 1 [facility] mg capsule 5-03 capsule by [facility] 00:00: mouth at [place] 00 bedtime. [facility] pantoprazol Yes [id number] 40mg Take 1 [facility] 40 mg EC 5-03 tablet by [facility] tablet 00:00: mouth [place] 00 daily. [facility] benzonatate Yes [id number] 200mg Take 1 [facility] 200 mg 5-03 capsule by [facility] capsule 00:00: mouth 3 [place] 00 (three) Medical times [facility] daily as needed for Cough. And to decrease gag reflex with episodes of vomiting. zaleplon 10 Yes [id number] 10mg Take 1 [facility] mg capsule 5-03 capsule by [facility] 00:00: mouth at [place] 00 bedtime. [facility] pantoprazol Yes [id number] 40mg Take 1 [facility] 40 mg EC 5-03 tablet by [facility] tablet 00:00: mouth [place] 00 daily. [facility] benzonatate Yes [id number] 200mg Take 1 [facility] 200 mg 5-03 capsule by [facility] capsule 00:00: mouth 3 (three) Medical times [facility] daily as needed for Cough. And to decrease gag reflex with episodes of vomiting. zaleplon 10 Yes [id number] 10mg Take 1 [facility] mg capsule 5-03 capsule by [facility] 00:00: mouth at [place] 00 bedtime. [facility] pantoprazol Yes [id number] 40mg Take 1 [facility] e 40 mg EC 5-03 tablet by [facility] tablet 00:00: mouth [place] 00 daily. [facility] benzonatate Yes [id number] 200mg Take 1 [facility] 200 mg 5-03 capsule by [facility] capsule 00:00: mouth 3 (three) Medical times [facility] daily as needed for Cough. And to decrease gag reflex with episodes of vomiting. zaleplon 10 Yes [id number] 10mg Take 1 [facility] mg capsule 5-03 capsule by [facility] 00:00: mouth at [place] 00 bedtime. [facility] pantoprazol Yes [id number] 40mg Take 1 [facility] e 40 mg EC 5-03 tablet by [facility] tablet 00:00: mouth [place] 00 daily. [facility] benzonatate Yes [id number] 200mg Take 1 [facility] 200 mg 5-03 capsule by [facility] capsule 00:00: mouth 3 (three) Medical times [facility] daily as needed for Cough. And to decrease gag reflex with episodes of vomiting. zaleplon 10 Yes [id number] 10mg Take 1 [facility] mg capsule 5-03 capsule by [facility] 00:00: mouth at [place] 00 bedtime. [facility] pantoprazol Yes [id number] 40mg Take 1 [facility] 40 mg EC 5-03 tablet by [facility] tablet 00:00: mouth [place] 00 daily. [facility] benzonatate Yes [id number] 200mg Take 1 [facility] 200 mg 5-03 capsule by [facility] capsule 00:00: mouth 3 (three) Medical times [place] daily as needed for Cough. And to decrease gag reflex with episodes of vomiting. zaleplon 10 Yes [id number] 10mg Take 1 [facility] mg capsule 5-03 capsule by [facility] 00:00: mouth at [place] 00 bedtime. [facility] pantoprazol Yes [id number] 40mg Take 1 [facility] e 40 mg EC 5-03 tablet by [facility] tablet 00:00: mouth [place] 00 daily. [facility] benzonatate Yes [id number] 200mg Take 1 [facility] 200 mg 5-03 capsule by [facility] capsule 00:00: mouth 3 (three) Medical times [place] daily as needed for Cough. And to decrease gag reflex with episodes of vomiting. zaleplon 10 Yes [id number] 10mg Take 1 [facility] mg capsule 5-03 capsule by [facility] 00:00: mouth at [place] 00 bedtime. [facility] pantoprazol Yes [id number] 40mg Take 1 [facility] 40 mg EC 5-03 tablet by [facility] tablet 00:00: mouth [place] 00 daily. [facility] benzonatate Yes [id number] 200mg Take 1 [facility] 200 mg 5-03 capsule by [facility] capsule 00:00: mouth (three) Medical times [place] daily as needed for Cough. And to decrease gag reflex with episodes of vomiting. zaleplon 10 Yes [id number] 10mg Take 1 [facility] mg capsule 5-03 capsule by [facility] 00:00: mouth at [place] 00 bedtime. [facility] pantoprazol Yes [id number] 40mg Take 1 [facility] 40 mg EC 5-03 tablet by [facility] tablet 00:00: mouth [place] 00 daily. [facility] benzonatate Yes [id number] 200mg Take 1 [facility] 200 mg 5-03 capsule by [facility] capsule 00:00: mouth 3 (three) Medical times [place] daily as needed for Cough. And to decrease gag reflex with episodes of vomiting. zaleplon 10 Yes [id number] 10mg Take 1 [facility] mg capsule 5-03 capsule by [facility] 00:00: mouth at [place] 00 bedtime. [facility] pantoprazol Yes [id number] 40mg Take 1 [facility] e 40 mg EC 5-03 tablet by [facility] tablet 00:00: mouth [place] 00 daily. [facility] benzonatate Yes [id number] 200mg Take 1 [facility] 200 mg 5-03 capsule by [facility] capsule 00:00: mouth 3 [place] 00 (three) Medical times [facility] daily as needed for Cough. And to decrease gag reflex with episodes of vomiting. zaleplon 10 Yes [id number] 10mg Take 1 [facility] mg capsule 5-03 capsule by [facility] 00:00: mouth at [place] 00 bedtime. [facility] pantoprazol Yes [id number] 40mg Take 1 [facility] e 40 mg EC 5-03 tablet by [facility] tablet 00:00: mouth [place] 00 daily. [facility] benzonatate Yes [id number] 200mg Take 1 [facility] 200 mg 5-03 capsule by [facility] capsule 00:00: mouth 3 (three) Medical times [place] daily as needed for Cough. And to decrease gag reflex with episodes of vomiting. zaleplon 10 Yes [id number] 10mg Take 1 [facility] mg capsule 5-03 capsule by [facility] 00:00: mouth at [place] 00 bedtime. [facility] pantoprazol Yes [id number] 40mg Take 1 [facility] e 40 mg EC 5-03 tablet by [facility] tablet 00:00: mouth [place] 00 daily. [facility] benzonatate Yes [id number] 200mg Take 1 [facility] 200 mg 5-03 capsule by [facility] capsule 00:00: mouth 3 00 (three) Medical times [place] daily as needed for Cough. And to decrease gag reflex with episodes of vomiting. zaleplon 10 Yes [id number] 10mg Take 1 [facility] mg capsule 5-03 capsule by [facility] 00:00: mouth at [place] 00 bedtime. [facility] pantoprazol Yes [id number] 40mg Take 1 [facility] e 40 mg EC 5-03 tablet by [facility] tablet 00:00: mouth [place] 00 daily. [facility] benzonatate Yes [id number] 200mg Take 1 [facility] 200 mg 5-03 capsule by [facility] capsule 00:00: mouth 3 (three) Medical times [place] daily as needed for Cough. And to decrease gag reflex with episodes of vomiting. zaleplon 10 Yes [id number] 10mg Take 1 [facility] mg capsule 5-03 capsule by [facility] 00:00: mouth at [place] 00 bedtime. [facility] pantoprazol Yes [id number] 40mg Take 1 [facility] 40 mg EC 5-03 tablet by [facility] tablet 00:00: mouth [place] 00 daily. [facility] benzonatate Yes [id number] 200mg Take 1 [facility] 200 mg 5-03 capsule by [facility] capsule 00:00: mouth 3 (three) Medical times [place] daily as needed for Cough. And to decrease gag reflex with episodes of vomiting. zaleplon 10 Yes [id number] 10mg Take 1 [facility] mg capsule 5-03 capsule by [facility] 00:00: mouth at [place] 00 bedtime. [facility] pantoprazol Yes [id number] 40mg Take 1 [facility] e 40 mg EC 5-03 tablet by [facility] tablet 00:00: mouth 00 daily. [facility] benzonatate Yes [id number] 200mg Take 1 [facility] 200 mg 5-03 capsule by [facility] capsule 00:00: mouth 3 (three) Medical times [place] daily as needed for Cough. And to decrease gag reflex with episodes of vomiting. zaleplon 10 Yes [id number] 10mg Take 1 [facility] mg capsule 5-03 capsule by [facility] 00:00: mouth at [place] 00 bedtime. [facility] pantoprazol Yes [id number] 40mg Take 1 [facility] e 40 mg EC 5-03 tablet by [facility] tablet 00:00: mouth 00 daily. [facility] benzonatate Yes [id number] 200mg Take 1 [facility] 200 mg 5-03 capsule by [facility] capsule 00:00: mouth 3 (three) Medical times [place] daily as needed for Cough. And to decrease gag reflex with episodes of vomiting. zaleplon 10 Yes [id number] 10mg Take 1 [facility] mg capsule 5-03 capsule by [facility] 00:00: mouth at [place] 00 bedtime. [facility] pantoprazol Yes [id number] 40mg Take 1 [facility] e 40 mg EC 5-03 tablet by [facility] tablet 00:00: mouth [place] 00 daily. [facility] benzonatate Yes [id number] 200mg Take 1 [facility] 200 mg 5-03 capsule by [facility] capsule 00:00: mouth 3 00 (three) Medical times [facility] daily as needed for Cough. And to decrease gag reflex with episodes of vomiting. zaleplon 10 Yes [id number] 10mg Take 1 [facility] mg capsule 5-03 capsule by [facility] 00:00: mouth at [place] 00 bedtime. [facility] pantoprazol Yes [id number] 40mg Take 1 [facility] e 40 mg EC 5-03 tablet by [facility] tablet 00:00: mouth [place] 00 daily. [facility] benzonatate Yes [id number] 200mg Take 1 [facility] 200 mg 5-03 capsule by [facility] capsule 00:00: mouth 3 00 (three) Medical times [place] daily as needed for Cough. And to decrease gag reflex with episodes of vomiting. zaleplon 10 Yes [id number] 10mg Take 1 [facility] mg capsule 5-03 capsule by [facility] 00:00: mouth at [place] 00 bedtime. [facility] pantoprazol Yes [id number] 40mg Take 1 [facility] e 40 mg EC 5-03 tablet by [facility] tablet 00:00: mouth [place] 00 daily. [facility] benzonatate Yes [id number] 200mg Take 1 [facility] 200 mg 5-03 capsule by [facility] capsule 00:00: mouth 3 00 (three) Medical times [facility] daily as needed for Cough. And to decrease gag reflex with episodes of vomiting. zaleplon 10 Yes [id number] 10mg Take 1 [facility] mg capsule 5-03 capsule by [facility] 00:00: mouth at [place] 00 bedtime. [facility] pantoprazol Yes [id number] 40mg Take 1 [facility] e 40 mg EC 5-03 tablet by [facility] tablet 00:00: mouth [place] 00 daily. [facility] benzonatate Yes [id number] 200mg Take 1 [facility] 200 mg 5-03 capsule by [facility] capsule 00:00: mouth 3 (three) Medical times [facility] daily as needed for Cough. And to decrease gag reflex with episodes of vomiting. zaleplon 10 Yes [id number] 10mg Take 1 [facility] mg capsule 5-03 capsule by [facility] 00:00: mouth at [place] 00 bedtime. [facility] pantoprazol Yes [id number] 40mg Take 1 [facility] e 40 mg EC 5-03 tablet by [facility] tablet 00:00: mouth [place] 00 daily. [facility] benzonatate Yes [id number] 200mg Take 1 [facility] 200 mg 5-03 capsule by [facility] capsule 00:00: mouth 3 (three) Medical times [place] daily as needed for Cough. And to decrease gag reflex with episodes of vomiting. zaleplon 10 Yes [id number] 10mg Take 1 [facility] mg capsule 5-03 capsule by [facility] 00:00: mouth at [place] 00 bedtime. [facility] pantoprazol Yes [id number] 40mg Take 1 [facility] e 40 mg EC 5-03 tablet by [facility] tablet 00:00: mouth [place] 00 daily. [facility] benzonatate Yes [id number] 200mg Take 1 [facility] 200 mg 5-03 capsule by [facility] capsule 00:00: mouth 3 00 (three) Medical times [place] daily as needed for Cough. And to decrease gag reflex with episodes of vomiting. zaleplon 10 Yes [id number] 10mg Take 1 [facility] mg capsule 5-03 capsule by [facility] 00:00: mouth at [place] 00 bedtime. [facility] pantoprazol Yes [id number] 40mg Take 1 [facility] e 40 mg EC 5-03 tablet by [facility] tablet 00:00: mouth [place] 00 daily. [facility] benzonatate Yes [id number] 200mg Take 1 [facility] 200 mg 5-03 capsule by [facility] capsule 00:00: mouth 3 00 (three) Medical times [facility] daily as needed for Cough. And to decrease gag reflex with episodes of vomiting. zaleplon 10 Yes [id number] 10mg Take 1 [facility] mg capsule 5-03 capsule by [facility] 00:00: mouth at [place] 00 bedtime. [facility] pantoprazol Yes [id number] 40mg Take 1 [facility] e 40 mg EC 5-03 tablet by [facility] tablet 00:00: mouth [place] 00 daily. [facility] benzonatate Yes [id number] 200mg Take 1 [facility] 200 mg 5-03 capsule by [facility] capsule 00:00: mouth 3 (three) Medical times [facility] daily as needed for Cough. And to decrease gag reflex with episodes of vomiting. zaleplon 10 Yes [id number] 10mg Take 1 [facility] mg capsule 5-03 capsule by [facility] 00:00: mouth at [place] 00 bedtime. [facility] pantoprazol Yes [id number] 40mg Take 1 [facility] e 40 mg EC 5-03 tablet by [facility] tablet 00:00: mouth [place] 00 daily. [facility] benzonatate Yes [id number] 200mg Take 1 [facility] 200 mg 5-03 capsule by [facility] capsule 00:00: mouth 3 (three) Medical times [place] daily as needed for Cough. And to decrease gag reflex with episodes of vomiting. zaleplon 10 Yes [id number] 10mg Take 1 [facility] mg capsule 5-03 capsule by [facility] 00:00: mouth at [place] 00 bedtime. [facility] pantoprazol Yes [id number] 40mg Take 1 [facility] e 40 mg EC 5-03 tablet by [facility] tablet 00:00: mouth [place] 00 daily. [facility] benzonatate Yes [id number] 200mg Take 1 [facility] 200 mg 5-03 capsule by [facility] capsule 00:00: mouth 3 (three) Medical times [place] daily as needed for Cough. And to decrease gag reflex with episodes of vomiting. zaleplon 10 Yes [id number] 10mg Take 1 [facility] mg capsule 5-03 capsule by [facility] 00:00: mouth at [place] 00 bedtime. [facility] pantoprazol Yes [id number] 40mg Take 1 [facility] e 40 mg EC 5-03 tablet by [facility] tablet 00:00: mouth [place] 00 daily. [facility] benzonatate Yes [id number] 200mg Take 1 [facility] 200 mg 5-03 capsule by [facility] capsule 00:00: mouth 3 (three) Medical times [facility] daily as needed for Cough. And to decrease gag reflex with episodes of vomiting. zaleplon 10 Yes [id number] 10mg Take 1 [facility] mg capsule 5-03 capsule by [facility] 00:00: mouth at [place] 00 bedtime. [facility] pantoprazol Yes [id number] 40mg Take 1 [facility] e 40 mg EC 5-03 tablet by [facility] tablet 00:00: mouth [place] 00 daily. [facility] benzonatate Yes [id number] 200mg Take 1 [facility] 200 mg 5-03 capsule by [facility] capsule 00:00: mouth 3 (three) Medical times [facility] daily as needed for Cough. And to decrease gag reflex with episodes of vomiting. zaleplon 10 Yes [id number] 10mg Take 1 [facility] mg capsule 5-03 capsule by [facility] 00:00: mouth at [place] 00 bedtime. [facility] pantoprazol Yes [id number] 40mg Take 1 [facility] e 40 mg EC 5-03 tablet by [facility] tablet 00:00: mouth [place] 00 daily. [facility] benzonatate Yes [id number] 200mg Take 1 [facility] 200 mg 5-03 capsule by [facility] capsule 00:00: mouth 3 (three) Medical times [facility] daily as needed for Cough. And to decrease gag reflex with episodes of vomiting. zaleplon 10 Yes [id number] 10mg Take 1 [facility] mg capsule 5-03 capsule by [facility] 00:00: mouth at [place] 00 bedtime. [facility] pantoprazol Yes [id number] 40mg Take 1 [facility] e 40 mg EC 5-03 tablet by [facility] tablet 00:00: mouth [place] 00 daily. [facility] benzonatate Yes [id number] 200mg Take 1 [facility] 200 mg 5-03 capsule by [facility] capsule 00:00: mouth 3 (three) Medical times [facility] daily as needed for Cough. And to decrease gag reflex with episodes of vomiting. zaleplon 10 Yes [id number] 10mg Take 1 [facility] mg capsule 5-03 capsule by [facility] 00:00: mouth at [place] 00 bedtime. [facility] pantoprazol Yes [id number] 40mg Take 1 [facility] e 40 mg EC 5-03 tablet by [facility] tablet 00:00: mouth [place] 00 daily. [facility] benzonatate Yes [id number] 200mg Take 1 [facility] 200 mg 5-03 capsule by [facility] capsule 00:00: mouth 3 (three) Medical times [place] daily as needed for Cough. And to decrease gag reflex with episodes of vomiting. zaleplon 10 Yes [id number] 10mg Take 1 [facility] mg capsule 5-03 capsule by [facility] 00:00: mouth at [place] 00 bedtime. [facility] pantoprazol Yes [id number] 40mg Take 1 [facility] e 40 mg EC 5-03 tablet by [facility] tablet 00:00: mouth 00 daily. [facility] benzonatate Yes [id number] 200mg Take 1 [facility] 200 mg 5-03 capsule by [facility] capsule 00:00: mouth (three) Medical times [place] daily as needed for Cough. And to decrease gag reflex with episodes of vomiting. zaleplon 10 Yes [id number] 10mg Take 1 [facility] mg capsule 5-03 capsule by [facility] 00:00: mouth at [place] 00 bedtime. [facility] pantoprazol Yes [id number] 40mg Take 1 [facility] e 40 mg EC 5-03 tablet by [facility] tablet 00:00: mouth 00 daily. [facility] benzonatate Yes [id number] 200mg Take 1 [facility] 200 mg 5-03 capsule by [facility] capsule 00:00: mouth 3 (three) Medical times [place] daily as needed for Cough. And to decrease gag reflex with episodes of vomiting. zaleplon 10 Yes [id number] 10mg Take 1 [facility] mg capsule 5-03 capsule by [facility] 00:00: mouth at [place] 00 bedtime. [facility] pantoprazol Yes [id number] 40mg Take 1 [facility] e 40 mg EC 5-03 tablet by [facility] tablet 00:00: mouth [place] 00 daily. [facility] benzonatate Yes [id number] 200mg Take 1 [facility] 200 mg 5-03 capsule by [facility] capsule 00:00: mouth 3 (three) Medical times [facility] daily as needed for Cough. And to decrease gag reflex with episodes of vomiting. zaleplon 10 Yes [id number] 10mg Take 1 [facility] mg capsule 5-03 capsule by [facility] 00:00: mouth at [place] 00 bedtime. [facility] pantoprazol Yes [id number] 40mg Take 1 [facility] e 40 mg EC 5-03 tablet by [facility] tablet 00:00: mouth [place] 00 daily. [facility] benzonatate Yes [id number] 200mg Take 1 [facility] 200 mg 5-03 capsule by [facility] capsule 00:00: mouth 3 (three) Medical times [facility] daily as needed for Cough. And to decrease gag reflex with episodes of vomiting. zaleplon 10 Yes [id number] 10mg Take 1 [facility] mg capsule 5-03 capsule by [facility] 00:00: mouth at 00 bedtime. [facility] pantoprazol Yes [id number] 40mg Take 1 [facility] e 40 mg EC 5-03 tablet by [facility] tablet 00:00: mouth 00 daily. [facility] benzonatate Yes [id number] 200mg Take 1 [facility] 200 mg 5-03 capsule by [facility] capsule 00:00: mouth (three) Medical times [facility] daily as needed for Cough. And to decrease gag reflex with episodes of vomiting. zaleplon 10 Yes [id number] 10mg Take 1 [facility] mg capsule 5-03 capsule by [facility] 00:00: mouth at 00 bedtime. [facility] pantoprazol Yes [id number] 40mg Take 1 [facility] e 40 mg EC 5-03 tablet by [facility] tablet 00:00: mouth [place] 00 daily. [facility] benzonatate Yes [id number] 200mg Take 1 [facility] 200 mg 5-03 capsule by [facility] capsule 00:00: mouth 3 (three) Medical times [facility] daily as needed for Cough. And to decrease gag reflex with episodes of vomiting. zaleplon 10 Yes [id number] 10mg Take 1 [facility] mg capsule 5-03 capsule by [facility] 00:00: mouth at 00 bedtime. [facility] pantoprazol Yes [id number] 40mg Take 1 [facility] e 40 mg EC 5-03 tablet by [facility] tablet 00:00: mouth [place] 00 daily. [facility] benzonatate Yes [id number] 200mg Take 1 [facility] 200 mg 5-03 capsule by [facility] capsule 00:00: mouth 3 (three) Medical times [place] daily as needed for Cough. And to decrease gag reflex with episodes of vomiting. zaleplon 10 Yes [id number] 10mg Take 1 [facility] mg capsule 5-03 capsule by [facility] 00:00: mouth at [place] 00 bedtime. [facility] pantoprazol Yes [id number] 40mg Take 1 [facility] e 40 mg EC 5-03 tablet by [facility] tablet 00:00: mouth [place] 00 daily. [facility] benzonatate Yes [id number] 200mg Take 1 [facility] 200 mg 5-03 capsule by [facility] capsule 00:00: mouth (three) Medical times [place] daily as needed for Cough. And to decrease gag reflex with episodes of vomiting. zaleplon 10 Yes [id number] 10mg Take 1 [facility] mg capsule 5-03 capsule by [facility] 00:00: mouth at [place] 00 bedtime. [facility] pantoprazol Yes [id number] 40mg Take 1 [facility] e 40 mg EC 5-03 tablet by [facility] tablet 00:00: mouth [place] 00 daily. [facility] benzonatate Yes [id number] 200mg Take 1 [facility] 200 mg 5-03 capsule by [facility] capsule 00:00: mouth (three) Medical times [place] daily as needed for Cough. And to decrease gag reflex with episodes of vomiting. zaleplon 10 Yes [id number] 10mg Take 1 [facility] mg capsule 5-03 capsule by [facility] 00:00: mouth at [place] 00 bedtime. [facility] pantoprazol Yes [id number] 40mg Take 1 [facility] e 40 mg EC 5-03 tablet by [facility] tablet 00:00: mouth [place] 00 daily. [facility] benzonatate Yes [id number] 200mg Take 1 [facility] 200 mg 5-03 capsule by [facility] capsule 00:00: mouth 3 [place] 00 (three) Medical times [facility] daily as needed for Cough. And to decrease gag reflex with episodes of vomiting. zaleplon 10 Yes [id number] 10mg Take 1 [facility] mg capsule 5-03 capsule by [facility] 00:00: mouth at [place] 00 bedtime. [facility] pantoprazol Yes [id number] 40mg Take 1 [facility] e 40 mg EC 5-03 tablet by [facility] tablet 00:00: mouth [place] 00 daily. [facility] benzonatate Yes [id number] 200mg Take 1 [facility] 200 mg 5-03 capsule by [facility] capsule 00:00: mouth 3 00 (three) Medical times [facility] daily as needed for Cough. And to decrease gag reflex with episodes of vomiting. zaleplon 10 Yes [id number] 10mg Take 1 [facility] mg capsule 5-03 capsule by [facility] 00:00: mouth at [place] 00 bedtime. [facility] pantoprazol Yes [id number] 40mg Take 1 [facility] e 40 mg EC 5-03 tablet by [facility] tablet 00:00: mouth [place] 00 daily. [facility] benzonatate Yes [id number] 200mg Take 1 [facility] 200 mg 5-03 capsule by [facility] capsule 00:00: mouth 3 (three) Medical times [facility] daily as needed for Cough. And to decrease gag reflex with episodes of vomiting. zaleplon 10 Yes [id number] 10mg Take 1 [facility] mg capsule 5-03 capsule by [facility] 00:00: mouth at [place] 00 bedtime. [facility] pantoprazol Yes [id number] 40mg Take 1 [facility] e 40 mg EC 5-03 tablet by [facility] tablet 00:00: mouth [place] 00 daily. [facility] benzonatate Yes [id number] 200mg Take 1 [facility] 200 mg 5-03 capsule by [facility] capsule 00:00: mouth 3 (three) Medical times [facility] daily as needed for Cough. And to decrease gag reflex with episodes of vomiting. zaleplon 10 Yes [id number] 10mg Take 1 [facility] mg capsule 5-03 capsule by [facility] 00:00: mouth at [place] 00 bedtime. [facility] pantoprazol Yes [id number] 40mg Take 1 [facility] e 40 mg EC 5-03 tablet by [facility] tablet 00:00: mouth [place] 00 daily. [facility] benzonatate Yes [id number] 200mg Take 1 [facility] 200 mg 5-03 capsule by [facility] capsule 00:00: mouth 3 (three) Medical times [facility] daily as needed for Cough. And to decrease gag reflex with episodes of vomiting. zaleplon 10 Yes [id number] 10mg Take 1 [facility] mg capsule 5-03 capsule by [facility] 00:00: mouth at [place] 00 bedtime. [facility] pantoprazol Yes [id number] 40mg Take 1 [facility] e 40 mg EC 5-03 tablet by [facility] tablet 00:00: mouth [place] 00 daily. [facility] benzonatate Yes [id number] 200mg Take 1 [facility] 200 mg 5-03 capsule by [facility] capsule 00:00: mouth 3 (three) Medical times [place] daily as needed for Cough. And to decrease gag reflex with episodes of vomiting. zaleplon 10 Yes [id number] 10mg Take 1 [facility] mg capsule 5-03 capsule by [facility] of 00:00: mouth at [place] 00 bedtime. [facility] pantoprazol Yes [id number] 40mg Take 1 [facility] e 40 mg EC 5-03 tablet by ity of tablet 00:00: mouth [place] 00 daily. [facility] benzonatate Yes [id number] 200mg Take 1 [facility] 200 mg 5-03 capsule by ity of capsule 00:00: mouth 3 (three) Medical times [place] daily as needed for Cough. And to decrease gag reflex with episodes of vomiting. zaleplon 10 Yes [id number] 10mg Take 1 [facility] mg capsule 5-03 capsule by ity of 00:00: mouth at [place] 00 bedtime. [facility] pantoprazol Yes [id number] 40mg Take 1 [facility] e 40 mg EC 5-03 tablet by ity of tablet 00:00: mouth [place] 00 daily. [facility] benzonatate Yes [id number] 200mg Take 1 [facility] 200 mg 5-03 capsule by ity of capsule 00:00: mouth 3 (three) Medical times Branch daily as needed for Cough. And to decrease gag reflex with episodes of vomiting. zaleplon 10 Yes [id number] 10mg Take 1 [facility] mg capsule 5-03 capsule by [facility]y of 00:00: mouth at [place] 00 bedtime. [facility] pantoprazol Yes [id number] 40mg Take 1 [facility] e 40 mg EC 5-03 tablet by ity of tablet 00:00: mouth [place] 00 daily. [facility] benzonatate Yes [id number] 200mg Take 1 [facility] 200 mg 5-03 capsule by ity of capsule 00:00: mouth 3 [place] 00 (three) Medical times Branch daily as needed for Cough. And to decrease gag reflex with episodes of vomiting. zaleplon 10 Yes [id number] 10mg Take 1 [facility] mg capsule 5-03 capsule by [facility]y of 00:00: mouth at [place] 00 bedtime. [facility] pantoprazol Yes [id number] 40mg Take 1 [facility] e 40 mg EC 5-03 tablet by ity of tablet 00:00: mouth [place] 00 daily. [facility] benzonatate Yes [id number] 200mg Take 1 [facility] 200 mg 5-03 capsule by ity of capsule 00:00: mouth 3 (three) Medical times [place] daily as needed for Cough. And to decrease gag reflex with episodes of vomiting. zaleplon 10 Yes [id number] 10mg Take 1 [facility] mg capsule 5-03 capsule by [facility]y of 00:00: mouth at [place] 00 bedtime. [facility] pantoprazol Yes [id number] 40mg Take 1 [facility] e 40 mg EC 5-03 tablet by ity of tablet 00:00: mouth [place] 00 daily. [facility] benzonatate Yes [id number] 200mg Take 1 [facility] 200 mg 5-03 capsule by ity of capsule 00:00: mouth 3 [place] 00 (three) Medical times Branch daily as needed for Cough. And to decrease gag reflex with episodes of vomiting. zaleplon 10 Yes [id number] 10mg Take 1 [facility] mg capsule 5-03 capsule by ity of 00:00: mouth at [place] 00 bedtime. [facility] pantoprazol Yes [id number] 40mg Take 1 [facility] e 40 mg EC 5-03 tablet by ity of tablet 00:00: mouth [place] 00 daily. [facility] benzonatate Yes [id number] 200mg Take 1 [facility] 200 mg 5-03 capsule by ity of capsule 00:00: mouth 3 (three) Medical times Branch daily as needed for Cough. And to decrease gag reflex with episodes of vomiting. zaleplon 10 Yes [id number] 10mg Take 1 [facility] mg capsule 5-03 capsule by [facility]y of 00:00: mouth at [place] 00 bedtime. [facility] pantoprazol Yes [id number] 40mg Take 1 [facility] e 40 mg EC 5-03 tablet by ity of tablet 00:00: mouth [place] 00 daily. [facility] benzonatate Yes [id number] 200mg Take 1 [facility] 200 mg 5-03 capsule by ity of capsule 00:00: mouth 3 (three) Medical times [place] daily as needed for Cough. And to decrease gag reflex with episodes of vomiting. zaleplon 10 Yes [id number] 10mg Take 1 [facility] mg capsule 5-03 capsule by ity of 00:00: mouth at [place] 00 bedtime. [facility] pantoprazol Yes [id number] 40mg Take 1 [facility] e 40 mg EC 5-03 tablet by ity of tablet 00:00: mouth [place] 00 daily. [facility] benzonatate Yes [id number] 200mg Take 1 [facility] 200 mg 5-03 capsule by ity of capsule 00:00: mouth 3 (three) Medical times [place] daily as needed for Cough. And to decrease gag reflex with episodes of vomiting. zaleplon 10 Yes [id number] 10mg Take 1 [facility] mg capsule 5-03 capsule by ity of 00:00: mouth at [place] 00 bedtime. [facility] pantoprazol Yes [id number] 40mg Take 1 [facility] e 40 mg EC 5-03 tablet by ity of tablet 00:00: mouth [place] 00 daily. [facility] benzonatate Yes [id number] 200mg Take 1 [facility] 200 mg 5-03 capsule by ity of capsule 00:00: mouth 3 (three) Medical times Branch daily as needed for Cough. And to decrease gag reflex with episodes of vomiting. zaleplon 10 Yes [id number] 10mg Take 1 [facility] mg capsule 5-03 capsule by ity of 00:00: mouth at [place] 00 bedtime. [facility] pantoprazol Yes [id number] 40mg Take 1 [facility] e 40 mg EC 5-03 tablet by ity of tablet 00:00: mouth [place] 00 daily. [facility] benzonatate Yes [id number] 200mg Take 1 [facility] 200 mg 5-03 capsule by ity of capsule 00:00: mouth 3 00 (three) Medical times Branch daily as needed for Cough. And to decrease gag reflex with episodes of vomiting. zaleplon 10 Yes [id number] 10mg Take 1 [facility] mg capsule 5-03 capsule by [facility]y of 00:00: mouth at [place] 00 bedtime. [facility] pantoprazol Yes [id number] 40mg Take 1 [facility] e 40 mg EC 5-03 tablet by ity of tablet 00:00: mouth [place] 00 daily. [facility] benzonatate Yes [id number] 200mg Take 1 [facility] 200 mg 5-03 capsule by ity of capsule 00:00: mouth 3 (three) Medical times [place] daily as needed for Cough. And to decrease gag reflex with episodes of vomiting. zaleplon 10 Yes [id number] 10mg Take 1 [facility] mg capsule 5-03 capsule by ity of 00:00: mouth at [place] 00 bedtime. [facility] pantoprazol Yes [id number] 40mg Take 1 [facility] e 40 mg EC 5-03 tablet by ity of tablet 00:00: mouth [place] 00 daily. [facility] benzonatate Yes [id number] 200mg Take 1 [facility] 200 mg 5-03 capsule by [facility]y of capsule 00:00: mouth 3 00 (three) Medical times Branch daily as needed for Cough. And to decrease gag reflex with episodes of vomiting. zaleplon 10 Yes [id number] 10mg Take 1 [facility] mg capsule 5-03 capsule by [facility]y of 00:00: mouth at [place] 00 bedtime. [facility] pantoprazol Yes [id number] 40mg Take 1 [facility] e 40 mg EC 5-03 tablet by ity of tablet 00:00: mouth [place] 00 daily. [facility] benzonatate Yes [id number] 200mg Take 1 [facility] 200 mg 5-03 capsule by [facility]y of capsule 00:00: mouth 3 [place] 00 (three) Medical times Branch daily as needed for Cough. And to decrease gag reflex with episodes of vomiting. zaleplon 10 Yes [id number] 10mg Take 1 [facility] mg capsule 5-03 capsule by [facility] of 00:00: mouth at [place] 00 bedtime. [facility] pantoprazol Yes [id number] 40mg Take 1 [facility] e 40 mg EC 5-03 tablet by ity of tablet 00:00: mouth [place] 00 daily. [facility] zaleplon 10 Yes [id number] 10mg Take 1 [facility] mg capsule 5-03 capsule by [facility]y of 00:00: mouth at [place] 00 bedtime. [facility] pantoprazol Yes [id number] 40mg Take 1 [facility] e 40 mg EC 5-03 tablet by ity of tablet 00:00: mouth 00 daily. [facility] zaleplon 10 Yes [id number] 10mg Take 1 [facility] mg capsule 5-03 capsule by [facility]y of 00:00: mouth at [place] 00 bedtime. [facility] pantoprazol Yes [id number] 40mg Take 1 [facility] e 40 mg EC 5-03 tablet by [facility]y of tablet 00:00: mouth [place] 00 daily. [facility] zaleplon 10 Yes [id number] 10mg Take 1 [facility] mg capsule 5-03 capsule by [facility]y of 00:00: mouth at [place] 00 bedtime. [facility] pantoprazol Yes [id number] 40mg Take 1 [facility] e 40 mg EC 5-03 tablet by ity of tablet 00:00: mouth [place] 00 daily. [facility] zaleplon 10 Yes [id number] 10mg Take 1 [facility] mg capsule 5-03 capsule by ity of 00:00: mouth at [place] 00 bedtime. [facility] pantoprazol Yes [id number] 40mg Take 1 [facility] e 40 mg EC 5-03 tablet by ity of tablet 00:00: mouth [place] 00 daily. [facility] zaleplon 10 Yes [id number] 10mg Take 1 [facility] mg capsule 5-03 capsule by [facility]y of 00:00: mouth at [place] 00 bedtime. [facility] pantoprazol Yes [id number] 40mg Take 1 [facility] e 40 mg EC 5-03 tablet by ity of tablet 00:00: mouth [place] 00 daily. [facility] zaleplon 10 Yes [id number] 10mg Take 1 [facility] mg capsule 5-03 capsule by ity of 00:00: mouth at [place] 00 bedtime. [facility] pantoprazol Yes [id number] 40mg Take 1 [facility] e 40 mg EC 5-03 tablet by ity of tablet 00:00: mouth [place] 00 daily. [facility] zaleplon 10 Yes [id number] 10mg Take 1 [facility] mg capsule 5-03 capsule by [facility]y of 00:00: mouth at [place] 00 bedtime. [facility] pantoprazol Yes [id number] 40mg Take 1 [facility] e 40 mg EC 5-03 tablet by ity of tablet 00:00: mouth [place] 00 daily. [facility] zaleplon 10 Yes [id number] 10mg Take 1 [facility] mg capsule 5-03 capsule by [facility]y of 00:00: mouth at [place] 00 bedtime. [facility] pantoprazol Yes [id number] 40mg Take 1 [facility] e 40 mg EC 5-03 tablet by ity of tablet 00:00: mouth [place] 00 daily. [facility] zaleplon 10 Yes [id number] 10mg Take 1 [facility] mg capsule 5-03 capsule by ity of 00:00: mouth at [place] 00 bedtime. [facility] pantoprazol Yes [id number] 40mg Take 1 [facility] e 40 mg EC 5-03 tablet by ity of tablet 00:00: mouth [place] 00 daily. [facility] zaleplon 10 Yes [id number] 10mg Take 1 [facility] mg capsule 5-03 capsule by ity of 00:00: mouth at [place] 00 bedtime. [facility] pantoprazol Yes [id number] 40mg Take 1 [facility] e 40 mg EC 5-03 tablet by ity of tablet 00:00: mouth [place] 00 daily. [facility] zaleplon 10 Yes [id number] 10mg Take 1 [facility] mg capsule 5-03 capsule by ity of 00:00: mouth at [place] 00 bedtime. [facility] pantoprazol Yes [id number] 40mg Take 1 [facility] e 40 mg EC 5-03 tablet by ity of tablet 00:00: mouth [place] 00 daily. [facility] zaleplon 10 Yes [id number] 10mg Take 1 [facility] mg capsule 5-03 capsule by [facility]y of 00:00: mouth at [place] 00 bedtime. [facility] pantoprazol Yes [id number] 40mg Take 1 [facility] e 40 mg EC 5-03 tablet by ity of tablet 00:00: mouth [place] 00 daily. [facility] zaleplon 10 Yes [id number] 10mg Take 1 [facility] mg capsule 5-03 capsule by ity of 00:00: mouth at [place] bedtime. [facility] pantoprazol Yes [id number] 40mg Take 1 [facility] e 40 mg EC 5-03 tablet by ity of tablet 00:00: mouth 00 daily. [facility] zaleplon 10 Yes [id number] 10mg Take 1 [facility] mg capsule 5-03 capsule by [facility] of 00:00: mouth at [place] bedtime. [facility] pantoprazol Yes [id number] 40mg Take 1 [facility] e 40 mg EC 5-03 tablet by [facility]y of tablet 00:00: mouth [place] 00 daily. [facility] zaleplon 10 Yes [id number] 10mg Take 1 [facility] mg capsule 5-03 capsule by [facility]y of 00:00: mouth at [place] bedtime. [facility] pantoprazol Yes [id number] 40mg Take 1 [facility] e 40 mg EC 5-03 tablet by ity of tablet 00:00: mouth [place] 00 daily. [facility] zaleplon 10 Yes [id number] 10mg Take 1 [facility] mg capsule 5-03 capsule by [facility]y of 00:00: mouth at [place] 00 bedtime. [facility] pantoprazol Yes [id number] 40mg Take 1 [facility] e 40 mg EC 5-03 tablet by ity of tablet 00:00: mouth [place] 00 daily. [facility] zaleplon 10 Yes [id number] 10mg Take 1 [facility] mg capsule 5-03 capsule by ity of 00:00: mouth at [place] bedtime. [facility] pantoprazol Yes [id number] 40mg Take 1 [facility] e 40 mg EC 5-03 tablet by ity of tablet 00:00: mouth [place] 00 daily. [facility] zaleplon 10 Yes [id number] 10mg Take 1 [facility] mg capsule 5-03 capsule by ity of 00:00: mouth at [place] 00 bedtime. [facility] pantoprazol Yes [id number] 40mg Take 1 [facility] e 40 mg EC 5-03 tablet by ity of tablet 00:00: mouth [place] 00 daily. [facility] zaleplon 10 Yes [id number] 10mg Take 1 [facility] mg capsule 5-03 capsule by ity of 00:00: mouth at [place] 00 bedtime. [facility] pantoprazol Yes [id number] 40mg Take 1 [facility] e 40 mg EC 5-03 tablet by ity of tablet 00:00: mouth 00 daily. [facility] Branch zaleplon 10 Yes [id number] 10mg Take 1 [facility] mg capsule 5-03 capsule by ity of 00:00: mouth at [place] bedtime. [facility] pantoprazol Yes [id number] 40mg Take 1 [facility] e 40 mg EC 5-03 tablet by ity of tablet 00:00: mouth [place] 00 daily. [facility] zaleplon 10 Yes [id number] 10mg Take 1 [facility] mg capsule 5-03 capsule by ity of 00:00: mouth at [place] bedtime. [facility] pantoprazol Yes [id number] 40mg Take 1 [facility] e 40 mg EC 5-03 tablet by ity of tablet 00:00: mouth [place] 00 daily. [facility] zaleplon 10 Yes [id number] 10mg Take 1 [facility] mg capsule 5-03 capsule by ity of 00:00: mouth at [place] 00 bedtime. [facility] pantoprazol Yes [id number] 40mg Take 1 [facility] e 40 mg EC 5-03 tablet by ity of tablet 00:00: mouth [place] 00 daily. [facility] zaleplon 10 Yes [id number] 10mg Take 1 [facility] mg capsule 5-03 capsule by ity of 00:00: mouth at [place] 00 bedtime. [facility] pantoprazol Yes [id number] 40mg Take 1 [facility] e 40 mg EC 5-03 tablet by ity of tablet 00:00: mouth [place] 00 daily. [facility] zaleplon 10 Yes [id number] 10mg Take 1 [facility] mg capsule 5-03 capsule by [facility]y of 00:00: mouth at [place] 00 bedtime. [facility] pantoprazol Yes [id number] 40mg Take 1 [facility] e 40 mg EC 5-03 tablet by ity of tablet 00:00: mouth [place] 00 daily. [facility] zaleplon 10 Yes [id number] 10mg Take 1 [facility] mg capsule 5-03 capsule by ity of 00:00: mouth at [place] 00 bedtime. [facility] pantoprazol Yes [id number] 40mg Take 1 [facility] e 40 mg EC 5-03 tablet by ity of tablet 00:00: mouth 00 daily. [facility] zaleplon 10 Yes [id number] 10mg Take 1 [facility] mg capsule 5-03 capsule by ity of 00:00: mouth at [place] bedtime. [facility] pantoprazol Yes [id number] 40mg Take 1 [facility] e 40 mg EC 5-03 tablet by ity of tablet 00:00: mouth [place] 00 daily. [facility] zaleplon 10 Yes [id number] 10mg Take 1 [facility] mg capsule 5-03 capsule by [facility]y of 00:00: mouth at [place] 00 bedtime. [facility] pantoprazol Yes [id number] 40mg Take 1 [facility] e 40 mg EC 5-03 tablet by ity of tablet 00:00: mouth [place] 00 daily. [facility] zaleplon 10 Yes [id number] 10mg Take 1 [facility] mg capsule 5-03 capsule by ity of 00:00: mouth at [place] 00 bedtime. [facility] pantoprazol Yes [id number] 40mg Take 1 [facility] e 40 mg EC 5-03 tablet by ity of tablet 00:00: mouth [place] 00 daily. [facility] zaleplon 10 Yes [id number] 10mg Take 1 [facility] mg capsule 5-03 capsule by [facility]y of 00:00: mouth at [place] 00 bedtime. [facility] pantoprazol Yes [id number] 40mg Take 1 [facility] e 40 mg EC 11-08 tablet by ity of tablet 00:00: mouth [place] 00 daily. [facility] Branch zaleplon 10 2022- No [id number] 10mg Take 1 [facility] mg capsule 11-08 capsule by it y of 00:00: 00:00 mouth at [place] 00 :00 bedtime. [facility] Branch benzonatate 2022- No [id number] 200mg Take 1 [facility] 200 mg 11-08 capsule by ity of capsule 00:00: 00:00 mouth 3 [place] 00 :00 (three) Medical times Branch daily as needed for Cough. And to decrease gag reflex with episodes of vomiting. benzonatate 2022- No [id number] 200mg Take 1 [facility] 200 mg 11-08 capsule by ity of capsule 00:00: 00:00 mouth 3 [place] 00 :00 (three) Medical times Branch daily as needed for Cough. And to decrease gag reflex with episodes of vomiting. lidocaine-p 2021- No [id number] Rub over [facility] rilocaine 11-08 port site ity of 2.5-2.5 % 00:00: 00:00 before [place] cream 00 :00 accessing. Medical Branch XIFAXAN 550 2021- No 550mg Take 550 [facility] mg tablet 11-08 mg by ity of 00:00: 00:00 mouth 3 [place] 00 :00 (three) Medical times Branch daily. Has not started as of 11/30 lidocaine-p 2021- No [id number] Rub over [facility] rilocaine 11-08 port site ity of 2.5-2.5 % 00:00: 00:00 before [place] cream 00 :00 accessing. Medical Branch XIFAXAN 550 2021- No 550mg Take 550 [facility] mg tablet 11-08 mg by ity of 00:00: 00:00 mouth 3 [place] 00 :00 (three) Medical times Branch daily. Has not started as of 11/30 ramelteon 8 Yes 8mg Take 8 mg [facility] mg tablet 4-18 by mouth ity of 00:00: daily. [place] 00 Medical Branch ramelteon 8 Yes 8mg Take 8 mg [facility] n[facility] mg tablet 4-18 by mouth ity of 00:00: daily. Medical Branch ramelteon 8 0 Yes 8mg Take 8 mg [facility] n[facility] mg tablet 4-18 by mouth ity of 00:00: daily. Medical [place] ramelteon 8 0 Yes 8mg Take 8 mg [facility] nivers mg tablet 4-18 by mouth ity of 00:00: daily. [facility] Branch ramelteon 8 0 Yes 8mg Take 8 mg [facility] n[facility] mg tablet 4-18 by mouth ity of 00:00: daily. [place] Medical [place] ramelteon 8 2021- No 8mg Take 8 mg [facility] mg tablet -18 03-15 by mouth ity o f 00:00: 00:00 daily. [place] : [facility] ramelteon 8 2021-0 2021- No 8mg Take 8 mg [facility] mg tablet -18 03-15 by mouth ity o f 00:00: 00:00 daily. [place] 00 :00 Medical Branch fluconazole 2021-0 Yes [id number] Take 1 [facility] nivers 150 mg 4-07 pill now. ity of tablet 00:00: If [place] 00 symptoms Medical not Branch improved in 72 hours take another dose. fluconazole 2021-0 Yes [id number] Take 1 [facility] n[facility] 150 mg 4-07 pill now. ity of tablet 00:00: If [place] 00 symptoms Medical not Branch improved in 72 hours take another dose. fluconazole 2021-0 Yes [id number] Take 1 [facility] n[facility] 150 mg 4-07 pill now. ity of tablet 00:00: If [place] 00 symptoms Medical not Branch improved in 72 hours take another dose. fluconazole 2021-0 Yes [id number] Take 1 [facility] n[facility] 150 mg 4-07 pill now. ity of tablet 00:00: If [place] 00 symptoms Medical not Branch improved in 72 hours take another dose. fluconazole 2021-0 Yes [id number] Take 1 [facility] n[facility] 150 mg 4-07 pill now. ity of tablet 00:00: If [place] 00 symptoms Medical not Branch improved in 72 hours take another dose. fluconazole 2021-0 2022- No [id number] Take 1 [facility] 150 mg 4-07 09-07 pill now. ity of tablet 00:00: 00:00 If [place] 00 :00 symptoms Medical not Branch improved in 72 hours take another dose. fluconazole 2021- No [id number] Take 1 [facility] 150 mg 10-13 pill now. ity of tablet 00:00: 00:00 If [place] 00 :00 symptoms Medical not Branch improved in 72 hours take another dose. colesevelam Yes [id number] 625mg Take 1 [facility] 625 mg 4- [id number] tablet by ity of tablet 00:00: mouth 2 (two) Medical times Branch daily with meals. colesevelam Yes [id number] 625mg Take 1 [facility] 625 mg 4- [id number] tablet by ity of tablet 00:00: mouth (two) Medical times Branch daily with meals. colesevelam Yes [id number] 625mg Take 1 [facility] 625 mg 4- [id number] tablet by ity of tablet 00:00: mouth (two) Medical times Branch daily with meals. colesevelam Yes [id number] 625mg Take 1 [facility] 625 mg 4- [id number] tablet by ity of tablet 00:00: mouth (two) Medical times Branch daily with meals. colesevelam Yes [id number] 625mg Take 1 [facility] 625 mg 4- [id number] tablet by ity of tablet 00:00: mouth 2 (two) Medical times Branch daily with meals. colesevelam 2021- No [id number] 625mg Take 1 [facility] 625 mg 4-03-15 [id number] tablet by ity o f tablet 00:00: 00:00 mouth 2 [place] 00 :00 (two) Medical times Branch daily with meals. colesevelam 2021- No [id number] 625mg Take 1 [facility] 625 mg 4-03-15 [id number] tablet by ity o f tablet 00:00: 00:00 mouth 2 [place] 00 :00 (two) Medical times Branch daily with meals. LIALDA 1.2 Yes 3.6g Take 3.6 g [facility] n[facility] gram EC 3-23 by mouth ity of tablet 00:00: daily. Medical Branch LIALDA 1.2 Yes 3.6g Take 3.6 g U nivers gram EC 3-23 by mouth ity of tablet 00:00: daily. Medical Branch LIALDA 1.2 Yes 3.6g Take 3.6 g [facility] nivers gram EC 3-23 by mouth ity of tablet 00:00: daily. Medical Branch LIALDA 1.2 Yes 3.6g Take 3.6 g [facility] nivers gram EC 3-23 by mouth ity of tablet 00:00: daily. Medical Branch LIALDA 1.2 Yes 3.6g Take 3.6 g [facility] nivers gram EC 3-23 by mouth ity of tablet 00:00: daily. Medical Branch LIALDA 1.2 2021-0 2021- No 3.6g Take 3.6 g [facility] gram EC 3-23 09-07 by mouth ity of tablet 00:00: 00:00 daily. [place] 00 : Medical Branch LIALDA 1.2 2021-0 2021- No 3.6g Take 3.6 g [facility] gram EC 3-23 09-07 by mouth ity of tablet 00:00: 00:00 daily. [place] 00 :00 Medical Branch albuterol Yes [id number] 2.5mg Inhale 3 [facility] 2.5 mg /3 3-21 mL every 4 ity of mL (0.083 00:00: (four) [place] %) 00 hours as Medical nebulizer needed for Bran ch solution Wheezing or Shortness of Breath. Nebulizer Yes [id number] Use as U nivers Accessories 3-21 directed. ity of Kit 00:00: Any brand [place] covered by Medical insurance. Branch albuterol Yes [id number] 2.5mg Inhale 3 [facility] 2.5 mg /3 3-21 mL every 4 ity of mL (0.083 00:00: (four) [place] %) 00 hours as Medical nebulizer needed for Bran ch solution Wheezing or Shortness of Breath. Nebulizer Yes [id number] Use as U nivers Accessories 3-21 directed. ity of Kit 00:00: Any brand covered by Medical insurance. Branch albuterol Yes [id number] 2.5mg Inhale 3 [facility] 2.5 mg /3 3-21 mL every 4 ity of mL (0.083 00:00: (four) [place] %) 00 hours as Medical nebulizer needed for Bran ch solution Wheezing or Shortness of Breath. Nebulizer 0 Yes [id number] Use as U nivers Accessories 3-21 directed. ity of Kit 00:00: Any brand [place] 00 covered by Medical insurance. Branch albuterol 0 Yes [id number] 2.5mg Inhale 3 [facility] 2.5 mg /3 3-21 mL every 4 ity of mL (0.083 00:00: (four) [place] %) 00 hours as Medical nebulizer needed for Bran ch solution Wheezing or Shortness of Breath. Nebulizer 0 Yes [id number] Use as U nivers Accessories 3-21 directed. ity of Kit 00:00: Any brand [place] 00 covered by Medical insurance. Branch albuterol 0 Yes [id number] 2.5mg Inhale 3 [facility] 2.5 mg /3 3-21 mL every 4 ity of mL (0.083 00:00: (four) [place] %) 00 hours as Medical nebulizer needed for Bran ch solution Wheezing or Shortness of Breath. Nebulizer 0 Yes [id number] Use as U nivers Accessories 3-21 directed. ity of Kit 00:00: Any brand [place] 00 covered by Medical insurance. Branch albuterol 2021- No [id number] 2.5mg Inhale 3 [facility] 2.5 mg /3 3-21 09-07 mL every 4 ity of mL (0.083 00:00: 00:00 (four) [place] %) 00 :00 hours as Medical nebulizer needed for Bran ch solution Wheezing or Shortness of Breath. Nebulizer 0 2021- No [id number] Use as [facility] Accessories 3-21 09-07 directed. it y of Kit 00:00: 00:00 Any brand [place] 00 :00 covered by Medical insurance. Branch albuterol 0 2021- No [id number] 2.5mg Inhale 3 [facility] 2.5 mg /3 3-21 09-07 mL every 4 ity of mL (0.083 00:00: 00:00 (four) [place] %) 00 :00 hours as Medical nebulizer needed for Bran ch solution Wheezing or Shortness of Breath. Nebulizer 2021- No [id number] Use as [facility] Accessories -03-15 directed. it y of Kit 00:00: 00:00 Any brand [place] 00 :00 covered by Medical insurance. Branch PLENVU 2021- Yes [facility] 140-9-5.2 1-21 ity of gram PPkS 00:00: 00 Medical Branch PLENVU 2021-0 Yes [facility] 140-9-5.2 1-21 ity of gram PPkS 00:00: 00 Medical Branch PLENVU 2021-0 Yes [facility] 140-9-5.2 1-21 ity of gram PPkS 00:00: 00 Medical Branch PLENVU 2021-0 Yes [facility] 140-9-5.2 1-21 ity of gram PPkS 00:00: 00 Medical Branch PLENVU 2021-0 Yes [facility] 140-9-5.2 1-21 ity of gram PPkS 00:00: 00 Medical Branch PLENVU 2021-0 2- No [facility] 140-9-5.2 -07 ity of gram PPkS 00:00: 00:00 [place] 00 :00 Medical Branch PLENVU 2021-0 2021- No [facility] 140-9-5.2 07-2907 ity of gram PPkS 00:00: 00:00 [place] 00 :00 Medical Branch hydrOXYzine 2020-0 Yes 50mg Take 50 mg [facility] (ATARAX) 50 9-03 by mouth. Col lege MG tablet 00:00: of 00 Medicin e hydrOXYzine 2020-0 Yes 50mg Take 50 mg [facility] (ATARAX) 50 9-03 by mouth. Col lege MG tablet 00:00: of 00 Medicin e hydrOXYzine 2020-0 Yes [id number] 50mg Take 1 [facility] 50 mg 9-03 tablet by ity of tablet 00:00: mouth [place] 00 every 6 Medical (six) Branch hours as needed for Itching. hydrOXYzine 2020-0 Yes [id number] 50mg Take 1 [facility] 50 mg 9-03 tablet by ity of tablet 00:00: mouth [place] 00 every 6 Medical (six) Branch hours as needed for Itching. hydrOXYzine 2021-0 Yes [id number] 50mg Take 1 [facility] 50 mg 9-03 tablet by ity of tablet 00:00: mouth [place] 00 every 6 Medical (six) Branch hours as needed for Itching. hydrOXYzine 2021-0 Yes [id number] 50mg Take 1 [facility] 50 mg 9-03 tablet by ity of tablet 00:00: mouth [place] 00 every 6 Medical (six) Branch hours as needed for Itching. hydrOXYzine 2021-0 Yes [id number] 50mg Take 1 [facility] 50 mg 9-03 tablet by ity of tablet 00:00: mouth [place] 00 every 6 Medical (six) Branch hours as needed for Itching. hydrOXYzine 2021-0 Yes [id number] 50mg Take 1 [facility] 50 mg 9-03 tablet by ity of tablet 00:00: mouth [place] 00 every 6 Medical (six) Branch hours as needed for Itching. hydrOXYzine 1-0 Yes [id number] 50mg Take 1 [facility] 50 mg 9-03 tablet by ity of tablet 00:00: mouth [place] 00 every 6 Medical (six) Branch hours as needed for Itching. hydrOXYzine 1-0 Yes [id number] 50mg Take 1 [facility] 50 mg 9-03 tablet by ity of tablet 00:00: mouth [place] 00 every 6 Medical (six) Branch hours as needed for Itching. hydrOXYzine 1-0 Yes [id number] 50mg Take [facility] 00:00: mouth [place] 00 every 6 [facility] (six[facility] hours as needed for Itching. hydrOXYzine 1-0 Yes [id number] 50mg Take 1 [facility]03 [facility] 00:00: mouth [place] 00 every 6 [facility] (six) [facility] hours as needed for Itching. hydrOXYzine 2021-0 Yes [id number] 50mg Take 1 [facility]-03 tablet [facility] tablet 00:00: mouth [place] 00 every 6 [facility] (six) [facility] hours as needed for Itching. hydrOXYzine 2021-0 Yes [id number] 50mg Take 1 [facility] 9-03 tablet [facility] 00:00: mouth [place] 00 every 6 [facility] (six) [facility] hours as needed for Itching. hydrOXYzine 2021-0 Yes [id number] 50mg Take 1 [facility] 9-03 tablet [facility] 00:00: mouth [place] 00 every 6 [facility] (six) [facility] hours as needed for Itching. hydrOXYzine 2021-0 Yes [id number] 50mg Take 1 [facility] 9-03 tablet [facility] tablet 00:00: mouth [place] 00 every 6 [facility] (six) [facility] hours as needed for Itching. hydrOXYzine 2021-0 Yes [id number] 50mg Take 1 [facility] 9-03 tablet [facility] tablet 00:00: mouth [place] 00 every 6 [facility] (six) [facility] hours as needed for Itching. hydrOXYzine 1-0 Yes [id number] 50mg Take 1 [facility] 9-03 tablet by [facility] tablet 00:00: mouth [place] 00 every 6 [facility] (six) [facility] hours as needed for Itching. hydrOXYzine 1-0 Yes [id number] 50mg Take 1 [facility] 9-03 tablet by [facility] tablet 00:00: mouth [place] 00 every 6 [facility] (six) [facility] hours as needed for Itching. hydrOXYzine 2020-0 Yes [id number] 50mg Take 1 [facility] 9-03 tablet [facility] 00:00: mouth [place] 00 every 6 [facility] (six) [facility] hours as needed for Itching. hydrOXYzine 1-0 Yes [id number] 50mg Take 1 [facility] 9-03 tablet by [facility] tablet 00:00: mouth [place] 00 every 6 [facility] (six) [facility] hours as needed for Itching. hydrOXYzine 1-0 Yes [id number] 50mg Take 1 [facility] 50 [facility] 9-03 tablet by [facility] 00:00: mouth [place] 00 every 6 [facility] (six) [facility] hours as needed for Itching. hydrOXYzine 1-0 Yes [id number] 50mg Take 1 [facility] 9-03 tablet by [facility] 00:00: mouth [place] 00 every 6 [facility] (six) [facility] hours as needed for Itching. hydrOXYzine 2021-0 Yes [id number] 50mg Take 1 [facility] 9-03 tablet by [facility] 00:00: mouth [place] 00 every 6 [facility] (six) [facility] hours as needed for Itching. hydrOXYzine 2021-0 Yes [id number] 50mg Take 1 [facility] 9-03 tablet [facility] 00:00: mouth [place] 00 every 6 [facility] (six) [facility] hours as needed for Itching. hydrOXYzine 2021-0 Yes [id number] 50mg Take 1 [facility] 9-03 tablet by [facility] 00:00: mouth [place] 00 every 6 [facility] (six) [facility] hours as needed for Itching. hydrOXYzine 2021-0 Yes [id number] 50mg Take 1 [facility] 9-03 tablet [facility] 00:00: mouth [place] 00 every 6 [facility] (six) [facility] hours as needed for Itching. hydrOXYzine 1-0 Yes [id number] 50mg Take 1 [facility] 50 [facility] 9-03 tablet [facility] 00:00: mouth [place] 00 every 6 [facility] (six) [facility] hours as needed for Itching. hydrOXYzine 1-0 Yes [id number] 50mg Take 1 [facility] 50 mg 9-03 tablet by [facility] 00:00: mouth [place] 00 every 6 [facility] (six) [facility] hours as needed for Itching. hydrOXYzine 1-0 Yes [id number] 50mg Take 1 [facility] 50 mg 9-03 tablet by [facility] 00:00: mouth [place] 00 every 6 [facility] (six) [facility] hours as needed for Itching. hydrOXYzine 1-0 Yes [id number] 50mg Take 1 [facility] 50 [facility] 9-03 tablet by [facility] tablet 00:00: mouth [place] 00 every 6 [facility] (six) [facility] hours as needed for Itching. hydrOXYzine 2021-0 Yes [id number] 50mg Take 1 [facility] 50 [facility] 9-03 tablet by [facility] 00:00: mouth [place] 00 every 6 [facility] (six) [facility] hours as needed for Itching. hydrOXYzine 1-0 Yes [id number] 50mg Take 1 [facility] 50 mg 9-03 tablet by [facility] 00:00: mouth [place] 00 every 6 [facility] (six) [facility] hours as needed for Itching. hydrOXYzine 2021-0 Yes [id number] 50mg Take 1 [facility] 50 mg 9-03 tablet by [facility] 00:00: mouth [place] 00 every 6 [facility] (six) [facility] hours as needed for Itching. hydrOXYzine 2021-0 Yes [id number] 50mg Take 1 [facility] 50 mg 9-03 tablet by [facility] 00:00: mouth [place] 00 every 6 [facility] (six) [facility] hours as needed for Itching. hydrOXYzine 2021-0 Yes [id number] 50mg Take 1 [facility] 50 mg 9-03 tablet by [facility] 00:00: mouth [place] 00 every 6 [facility] (six) [facility] hours as needed for Itching. hydrOXYzine 2021-0 Yes [id number] 50mg Take 1 [facility] 50 mg 9-03 tablet by [facility] 00:00: mouth [place] 00 every 6 [facility] (six) [facility] hours as needed for Itching. hydrOXYzine 2021-0 Yes [id number] 50mg Take 1 [facility] 50 mg 9-03 tablet by [facility] 00:00: mouth [place] 00 every 6 [facility] (six) [facility] hours as needed for Itching. hydrOXYzine 2021-0 Yes [id number] 50mg Take 1 [facility] 50 mg 9-03 tablet by [facility] 00:00: mouth [place] 00 every 6 [facility] (six) [facility] hours as needed for Itching. hydrOXYzine 1-0 Yes [id number] 50mg Take 1 [facility] 50 mg 9-03 tablet by [facility] 00:00: mouth [place] 00 every 6 [facility] (six) [facility] hours as needed for Itching. hydrOXYzine 1-0 Yes [id number] 50mg Take 1 [facility] 50 mg 9-03 tablet by [facility] 00:00: mouth [place] 00 every 6 [facility] (six) [facility] hours as needed for Itching. hydrOXYzine 2021-0 Yes [id number] 50mg Take 1 [facility] 50 mg 9-03 tablet by [facility] 00:00: mouth [place] 00 every 6 [facility] (six) [facility] hours as needed for Itching. hydrOXYzine 2021-0 Yes [id number] 50mg Take 1 [facility] 50 mg 9-03 tablet by [facility] tablet 00:00: mouth [place] 00 every 6 [facility] (six) [facility] hours as needed for Itching. hydrOXYzine 2021-0 Yes [id number] 50mg Take 1 [facility] 50 mg 9-03 tablet by [facility] 00:00: mouth [place] 00 every 6 [facility] (six) [facility] hours as needed for Itching. hydrOXYzine 2021-0 Yes [id number] 50mg Take 1 [facility] 50 mg 9-03 tablet by [facility] 00:00: mouth [place] 00 every 6 [facility] (six) [facility] hours as needed for Itching. hydrOXYzine 2021-0 Yes [id number] 50mg Take 1 [facility] 50 [facility] 9-03 tablet by [facility] 00:00: mouth [place] 00 every 6 [facility] (six) [facility] hours as needed for Itching. hydrOXYzine 2021-0 Yes [id number] 50mg Take 1 [facility] 50 mg 9-03 tablet by [facility] 00:00: mouth [place] 00 every 6 [facility] (six) [facility] hours as needed for Itching. hydrOXYzine 2021-0 Yes [id number] 50mg Take 1 [facility] 50 mg 9-03 tablet by [facility] 00:00: mouth [place] 00 every 6 [facility] (six) [facility] hours as needed for Itching. hydrOXYzine 1-0 Yes [id number] 50mg Take 1 [facility] 50 mg 9-03 tablet by [facility] 00:00: mouth [place] 00 every 6 [facility] (six) [facility] hours as needed for Itching. hydrOXYzine 1-0 Yes [id number] 50mg Take 1 [facility] 50 mg 9-03 tablet by [facility] tablet 00:00: mouth [place] 00 every 6 [facility] (six) [facility] hours as needed for Itching. hydrOXYzine 1-0 Yes [id number] 50mg Take 1 [facility] 50 [facility] 9-03 tablet by [facility] tablet 00:00: mouth [place] 00 every 6 [facility] (six) [facility] hours as needed for Itching. hydrOXYzine 1-0 Yes [id number] 50mg Take 1 [facility] 50 mg 9-03 tablet by [facility] tablet 00:00: mouth [place] 00 every 6 [facility] (six) [facility] hours as needed for Itching. hydrOXYzine 1-0 Yes [id number] 50mg Take 1 [facility] 50 [facility] 9-03 tablet by [facility] 00:00: mouth [place] 00 every 6 [facility] (six) [facility] hours as needed for Itching. hydrOXYzine 1-0 Yes [id number] 50mg Take 1 [facility] 50 [facility] 9-03 tablet by [facility] 00:00: mouth [place] 00 every 6 [facility] (six) [facility] hours as needed for Itching. hydrOXYzine 2021-0 Yes [id number] 50mg Take 1 [facility] 50 mg 9-03 tablet by [facility] tablet 00:00: mouth [place] 00 every 6 [facility] (six) [facility] hours as needed for Itching. hydrOXYzine 1-0 Yes [id number] 50mg Take 1 [facility] 50 [facility] 9-03 tablet by [facility] tablet 00:00: mouth [place] 00 every 6 [facility] (six) [facility] hours as needed for Itching. hydrOXYzine 2021-0 Yes [id number] 50mg Take 1 [facility] 50 [facility] 9-03 tablet by [facility] 00:00: mouth [place] 00 every 6 [facility] (six) [facility] hours as needed for Itching. hydrOXYzine 2021-0 Yes [id number] 50mg Take 1 [facility] 50 [facility] 9-03 tablet by [facility] tablet 00:00: mouth [place] 00 every 6 [facility] (six) [facility] hours as needed for Itching. hydrOXYzine 2021-0 Yes [id number] 50mg Take 1 [facility] 50 mg 9-03 tablet by [facility] 00:00: mouth [place] 00 every 6 [facility] (six) [facility] hours as needed for Itching. hydrOXYzine 1-0 Yes [id number] 50mg Take 1 [facility] 50 [facility] 9-03 tablet by [facility] tablet 00:00: mouth [place] 00 every 6 [facility] (six) [facility] hours as needed for Itching. hydrOXYzine 1-0 Yes [id number] 50mg Take 1 [facility] 50 [facility] 9-03 tablet by [facility] 00:00: mouth [place] 00 every 6 [facility] (six) [facility] hours as needed for Itching. hydrOXYzine 1-0 Yes [id number] 50mg Take 1 [facility] 50 [facility] 9-03 tablet by [facility] 00:00: mouth [place] 00 every 6 [facility] (six) [facility] hours as needed for Itching. hydrOXYzine 1-0 Yes [id number] 50mg Take 1 [facility] 50 [facility] 9-03 tablet by [facility] tablet 00:00: mouth [place] 00 every 6 [facility] (six) [facility] hours as needed for Itching. hydrOXYzine 1-0 Yes [id number] 50mg Take 1 [facility] 50 mg 9-03 tablet by [facility] tablet 00:00: mouth [place] 00 every 6 [facility] (six) [facility] hours as needed for Itching. hydrOXYzine 2021-0 Yes [id number] 50mg Take 1 [facility] 50 mg 9-03 tablet by [facility] tablet 00:00: mouth [place] 00 every 6 [facility] (six) [facility] hours as needed for Itching. hydrOXYzine 2021-0 Yes [id number] 50mg Take 1 [facility] 50 mg 9-03 tablet by [facility] 00:00: mouth [place] 00 every 6 [facility] (six) [facility] hours as needed for Itching. hydrOXYzine 2021-0 Yes [id number] 50mg Take 1 [facility] 50 mg 9-03 tablet by [facility] tablet 00:00: mouth [place] 00 every 6 [facility] (six) [facility] hours as needed for Itching. hydrOXYzine 2021-0 Yes [id number] 50mg Take 1 [facility] 50 mg 9-03 tablet by [facility] tablet 00:00: mouth [place] 00 every 6 [facility] (six) [facility] hours as needed for Itching. hydrOXYzine 2021-0 Yes [id number] 50mg Take 1 [facility] 50 mg 9-03 tablet by [facility] tablet 00:00: mouth [place] 00 every 6 [facility] (six) [facility] hours as needed for Itching. hydrOXYzine 1-0 Yes [id number] 50mg Take 1 [facility] 50 mg 9-03 tablet by [facility] tablet 00:00: mouth [place] 00 every 6 [facility] (six) [facility] hours as needed for Itching. hydrOXYzine 1-0 Yes [id number] 50mg Take 1 [facility] 50 mg 9-03 tablet by [facility] tablet 00:00: mouth [place] 00 every 6 [facility] (six) [facility] hours as needed for Itching. hydrOXYzine 2020-0 Yes [id number] 50mg Take 1 [facility] 50 mg 9-03 tablet by [facility] tablet 00:00: mouth [place] 00 every 6 [facility] (six) [facility] hours as needed for Itching. hydrOXYzine 1-0 Yes [id number] 50mg Take 1 [facility] 50 mg 9-03 tablet by [facility] tablet 00:00: mouth [place] 00 every 6 [facility] (six) [facility] hours as needed for Itching. hydrOXYzine 1-0 Yes [id number] 50mg Take 1 [facility] 50 mg 9-03 tablet by [facility] tablet 00:00: mouth [place] 00 every 6 [facility] (six) [facility] hours as needed for Itching. hydrOXYzine 1-0 Yes [id number] 50mg Take 1 [facility] 50 mg 9-03 tablet by [facility] tablet 00:00: mouth [place] 00 every 6 [facility] (six) [facility] hours as needed for Itching. hydrOXYzine 2021-0 Yes [id number] 50mg Take 1 [facility] 50 mg 9-03 tablet by [facility] tablet 00:00: mouth [place] 00 every 6 [facility] (six) [facility] hours as needed for Itching. hydrOXYzine 2021-0 Yes [id number] 50mg Take 1 [facility] 50 mg 9-03 tablet by [facility] tablet 00:00: mouth [place] 00 every 6 [facility] (six) [facility] hours as needed for Itching. hydrOXYzine 2021-0 Yes [id number] 50mg Take 1 [facility] 50 mg 9-03 tablet by [facility] tablet 00:00: mouth [place] 00 every 6 [facility] (six) [facility] hours as needed for Itching. hydrOXYzine 2021-0 Yes [id number] 50mg Take 1 [facility] 50 mg 9-03 tablet by [facility] tablet 00:00: mouth [place] 00 every 6 [facility] (six) [facility] hours as needed for Itching. hydrOXYzine 2021-0 Yes [id number] 50mg Take 1 [facility] 50 mg 9-03 tablet by [facility] tablet 00:00: mouth [place] 00 every 6 [facility] (six) [facility] hours as needed for Itching. hydrOXYzine 2021-0 Yes [id number] 50mg Take 1 [facility] 50 mg 9-03 tablet by [facility] tablet 00:00: mouth [place] 00 every 6 [facility] (six) [facility] hours as needed for Itching. hydrOXYzine 1-0 Yes [id number] 50mg Take 1 [facility] 50 mg 9-03 tablet by [facility] tablet 00:00: mouth [place] 00 every 6 [facility] (six) [facility] hours as needed for Itching. hydrOXYzine 1-0 Yes [id number] 50mg Take 1 [facility] 50 mg 9-03 tablet by [facility] tablet 00:00: mouth [place] 00 every 6 [facility] (six) [facility] hours as needed for Itching. hydrOXYzine 2021-0 Yes [id number] 50mg Take 1 [facility] 50 mg 9-03 tablet by [facility] tablet 00:00: mouth [place] 00 every 6 [facility] (six) [facility] hours as needed for Itching. hydrOXYzine 2021-0 Yes [id number] 50mg Take 1 [facility] 50 mg 9-03 tablet by [facility] tablet 00:00: mouth [place] 00 every 6 [facility] (six) [facility] hours as needed for Itching. hydrOXYzine 2021-0 Yes [id number] 50mg Take 1 [facility] 50 mg 9-03 tablet by [facility] tablet 00:00: mouth [place] 00 every 6 [facility] (six) [facility] hours as needed for Itching. hydrOXYzine 2021-0 Yes [id number] 50mg Take 1 [facility] 50 mg 9-03 tablet by [facility] tablet 00:00: mouth [place] 00 every 6 [facility] (six) [facility] hours as needed for Itching. hydrOXYzine 2021-0 Yes [id number] 50mg Take 1 [facility] 50 mg 9-03 tablet by [facility] tablet 00:00: mouth [place] 00 every 6 [facility] (six) [facility] hours as needed for Itching. hydrOXYzine 2021-0 Yes [id number] 50mg Take 1 [facility] 50 mg 9-03 tablet by [facility] tablet 00:00: mouth [place] 00 every 6 [facility] (six) [facility] hours as needed for Itching. hydrOXYzine 2021-0 Yes [id number] 50mg Take 1 [facility] 50 mg 9-03 tablet by [facility] tablet 00:00: mouth [place] 00 every 6 [facility] (six) [facility] hours as needed for Itching. hydrOXYzine 1-0 Yes [id number] 50mg Take 1 [facility] 50 mg 9-03 tablet by [facility] tablet 00:00: mouth [place] 00 every 6 [facility] (six) [facility] hours as needed for Itching. hydrOXYzine 1-0 Yes [id number] 50mg Take 1 [facility] 50 mg 9-03 tablet by [facility] tablet 00:00: mouth [place] 00 every 6 [facility] (six) [facility] hours as needed for Itching. hydrOXYzine 2020-0 Yes [id number] 50mg Take 1 [facility] 50 mg 9-03 tablet by [facility] tablet 00:00: mouth [place] 00 every 6 [facility] (six) [facility] hours as needed for Itching. hydrOXYzine 1-0 Yes [id number] 50mg Take 1 [facility] 50 mg 9-03 tablet by [facility] tablet 00:00: mouth [place] 00 every 6 [facility] (six) [facility] hours as needed for Itching. hydrOXYzine 1-0 Yes [id number] 50mg Take 1 [facility] 50 mg 9-03 tablet by [facility] tablet 00:00: mouth [place] 00 every 6 [facility] (six) [facility] hours as needed for Itching. hydrOXYzine 2021-0 Yes [id number] 50mg Take 1 [facility] 50 mg 9-03 tablet by [facility] tablet 00:00: mouth [place] 00 every 6 [facility] (six) [facility] hours as needed for Itching. hydrOXYzine 2021-0 Yes [id number] 50mg Take 1 [facility] 50 mg 9-03 tablet by [facility] tablet 00:00: mouth [place] 00 every 6 [facility] (six) [facility] hours as needed for Itching. hydrOXYzine 2021-0 Yes [id number] 50mg Take 1 [facility] 50 mg 9-03 tablet by [facility] tablet 00:00: mouth [place] 00 every 6 [facility] (six) [facility] hours as needed for Itching. hydrOXYzine 2021-0 Yes [id number] 50mg Take 1 [facility] 50 mg 9-03 tablet by [facility] tablet 00:00: mouth [place] 00 every 6 [facility] (six) [facility] hours as needed for Itching. hydrOXYzine 2021-0 Yes [id number] 50mg Take 1 [facility] 50 mg 9-03 tablet by [facility] tablet 00:00: mouth [place] 00 every 6 [facility] (six) [facility] hours as needed for Itching. hydrOXYzine 1-0 Yes [id number] 50mg Take 1 [facility] 50 mg 9-03 tablet by [facility] tablet 00:00: mouth [place] 00 every 6 [facility] (six) [facility] hours as needed for Itching. hydrOXYzine 1-0 Yes [id number] 50mg Take 1 [facility] 50 mg 9-03 tablet by [facility] tablet 00:00: mouth [place] 00 every 6 [facility] (six) [facility] hours as needed for Itching. hydrOXYzine 1-0 Yes [id number] 50mg Take 1 [facility] 50 mg 9-03 tablet by [facility] tablet 00:00: mouth [place] 00 every 6 [facility] (six) [facility] hours as needed for Itching. hydrOXYzine 1-0 Yes [id number] 50mg Take 1 [facility] 50 mg 9-03 tablet by [facility] tablet 00:00: mouth [place] 00 every 6 [facility] (six) [facility] hours as needed for Itching. hydrOXYzine 2021-0 Yes [id number] 50mg Take 1 [facility] 50 mg 9-03 tablet by [facility] tablet 00:00: mouth [place] 00 every 6 [facility] (six) [facility] hours as needed for Itching. hydrOXYzine 1-0 Yes [id number] 50mg Take 1 [facility] 50 mg 9-03 tablet by [facility] tablet 00:00: mouth [place] 00 every 6 [facility] (six) [facility] hours as needed for Itching. hydrOXYzine 2021-0 Yes [id number] 50mg Take 1 [facility] 50 mg 9-03 tablet by [facility] tablet 00:00: mouth [place] 00 every 6 [facility] (six) [facility] hours as needed for Itching. hydrOXYzine 2021-0 Yes [id number] 50mg Take 1 [facility] 50 mg 9-03 tablet by [facility] tablet 00:00: mouth [place] 00 every 6 [facility] (six) [facility] hours as needed for Itching. hydrOXYzine 2021-0 Yes [id number] 50mg Take 1 [facility] 50 mg 9-03 tablet by [facility] tablet 00:00: mouth [place] 00 every 6 [facility] (six) [facility] hours as needed for Itching. hydrOXYzine 2021-0 Yes [id number] 50mg Take 1 [facility] 50 mg 9-03 tablet by [facility] tablet 00:00: mouth [place] 00 every 6 [facility] (six) [facility] hours as needed for Itching. hydrOXYzine 2021-0 Yes [id number] 50mg Take 1 [facility] 50 mg 9-03 tablet by [facility] tablet 00:00: mouth [place] 00 every 6 [facility] (six) [facility] hours as needed for Itching. hydrOXYzine 1-0 Yes [id number] 50mg Take 1 [facility] 50 mg 9-03 tablet by [facility] tablet 00:00: mouth [place] 00 every 6 [facility] (six) [facility] hours as needed for Itching. hydrOXYzine 1-0 Yes [id number] 50mg Take 1 [facility] 50 mg 9-03 tablet by [facility] tablet 00:00: mouth [place] 00 every 6 [facility] (six) [facility] hours as needed for Itching. hydrOXYzine 1-0 Yes [id number] 50mg Take 1 [facility] 50 mg 9-03 tablet by [facility] tablet 00:00: mouth [place] 00 every 6 [facility] (six) [facility] hours as needed for Itching. hydrOXYzine 1-0 Yes [id number] 50mg Take 1 [facility] 50 [facility] 9-03 tablet by [facility] tablet 00:00: mouth [place] 00 every 6 [facility] (six) [facility] hours as needed for Itching. hydrOXYzine 1-0 Yes [id number] 50mg Take 1 [facility] 50 mg 9-03 tablet by [facility] tablet 00:00: mouth [place] 00 every 6 [facility] (six) [facility] hours as needed for Itching. hydrOXYzine 2021-0 Yes [id number] 50mg Take 1 [facility] 50 mg 9-03 tablet by [facility] tablet 00:00: mouth [place] 00 every 6 [facility] (six) [facility] hours as needed for Itching. hydrOXYzine 2021-0 Yes [id number] 50mg Take 1 [facility] 50 mg 9-03 tablet by [facility] tablet 00:00: mouth [place] 00 every 6 [facility] (six) [facility] hours as needed for Itching. hydrOXYzine 2021-0 Yes [id number] 50mg Take 1 [facility] 50 mg 9-03 tablet by [facility] tablet 00:00: mouth [place] 00 every 6 [facility] (six) [facility] hours as needed for Itching. hydrOXYzine 2021-0 Yes [id number] 50mg Take 1 [facility] 50 mg 9-03 tablet by [facility] tablet 00:00: mouth [place] 00 every 6 [facility] (six) [facility] hours as needed for Itching. hydrOXYzine 2021-0 Yes [id number] 50mg Take 1 [facility] 50 mg 9-03 tablet by [facility] tablet 00:00: mouth [place] 00 every 6 [facility] (six) [facility] hours as needed for Itching. hydrOXYzine 1-0 Yes [id number] 50mg Take 1 [facility] 50 mg 9-03 tablet by [facility] tablet 00:00: mouth [place] 00 every 6 [facility] (six) [facility] hours as needed for Itching. hydrOXYzine 1-0 Yes [id number] 50mg Take 1 [facility] 50 mg 9-03 tablet by [facility] tablet 00:00: mouth [place] 00 every 6 [facility] (six) [facility] hours as needed for Itching. hydrOXYzine 1-0 Yes [id number] 50mg Take 1 [facility] 50 mg 9-03 tablet by [facility] tablet 00:00: mouth [place] 00 every 6 [facility] (six) [facility] hours as needed for Itching. hydrOXYzine 1-0 Yes [id number] 50mg Take 1 [facility] 50 mg 9-03 tablet by [facility] tablet 00:00: mouth [place] 00 every 6 [facility] (six) [facility] hours as needed for Itching. hydrOXYzine 1-0 Yes [id number] 50mg Take 1 [facility] 50 mg 9-03 tablet by [facility] tablet 00:00: mouth [place] 00 every 6 [facility] (six) [facility] hours as needed for Itching. hydrOXYzine 1-0 Yes [id number] 50mg Take 1 [facility] 50 mg 9-03 tablet by [facility] tablet 00:00: mouth [place] 00 every 6 [facility] (six) [facility] hours as needed for Itching. hydrOXYzine 2021-0 Yes [id number] 50mg Take 1 [facility] 50 mg 9-03 tablet by [facility] tablet 00:00: mouth [place] 00 every 6 [facility] (six) [facility] hours as needed for Itching. hydrOXYzine 2021-0 Yes [id number] 50mg Take 1 [facility] 50 mg 9-03 tablet by [facility] tablet 00:00: mouth [place] 00 every 6 [facility] (six) [facility] hours as needed for Itching. hydrOXYzine 2021-0 Yes [id number] 50mg Take 1 [facility] 50 mg 9-03 tablet by [facility] tablet 00:00: mouth [place] 00 every 6 [facility] (six) [facility] hours as needed for Itching. hydrOXYzine 2021-0 Yes [id number] 50mg Take 1 [facility] 50 mg 9-03 tablet by [facility] tablet 00:00: mouth [place] 00 every 6 [facility] (six) [facility] hours as needed for Itching. hydrOXYzine 2021-0 Yes [id number] 50mg Take 1 [facility] 50 mg 9-03 tablet by [facility] tablet 00:00: mouth [place] 00 every 6 [facility] (six) [facility] hours as needed for Itching. hydrOXYzine 2021-0 Yes [id number] 50mg Take 1 [facility] 50 mg 9-03 tablet by [facility] tablet 00:00: mouth [place] 00 every 6 [facility] (six) [facility] hours as needed for Itching. hydrOXYzine 1-0 Yes [id number] 50mg Take 1 [facility] 50 mg 9-03 tablet by [facility] tablet 00:00: mouth [place] 00 every 6 [facility] (six) [facility] hours as needed for Itching. hydrOXYzine 1-0 Yes [id number] 50mg Take 1 [facility] 50 mg 9-03 tablet by [facility] tablet 00:00: mouth [place] 00 every 6 [facility] (six) [facility] hours as needed for Itching. hydrOXYzine 1-0 Yes [id number] 50mg Take 1 [facility] 50 mg 9-03 tablet by [facility] tablet 00:00: mouth [place] 00 every 6 [facility] (six) [facility] hours as needed for Itching. hydrOXYzine 1-0 Yes [id number] 50mg Take 1 [facility] 50 mg 9-03 tablet by [facility] tablet 00:00: mouth [place] 00 every 6 [facility] (six) [facility] hours as needed for Itching. hydrOXYzine 2021-0 Yes [id number] 50mg Take 1 [facility] 50 mg 9-03 tablet by [facility] tablet 00:00: mouth [place] 00 every 6 [facility] (six) [facility] hours as needed for Itching. hydrOXYzine 2021-0 Yes [id number] 50mg Take 1 [facility] 50 mg 9-03 tablet by [facility] tablet 00:00: mouth [place] 00 every 6 [facility] (six) [facility] hours as needed for Itching. hydrOXYzine 2021-0 Yes [id number] 50mg Take 1 [facility] 50 mg 9-03 tablet by [facility] tablet 00:00: mouth [place] 00 every 6 [facility] (six) [facility] hours as needed for Itching. hydrOXYzine 2021-0 Yes [id number] 50mg Take 1 [facility] 50 mg 9-03 tablet by [facility] tablet 00:00: mouth [place] 00 every 6 [facility] (six) [facility] hours as needed for Itching. hydrOXYzine 2021-0 Yes [id number] 50mg Take 1 [facility] 50 mg 9-03 tablet by [facility] tablet 00:00: mouth [place] 00 every 6 [facility] (six) [facility] hours as needed for Itching. hydrOXYzine 1-0 Yes [id number] 50mg Take 1 [facility] 50 mg 9-03 tablet by [facility] tablet 00:00: mouth [place] 00 every 6 [facility] (six) [facility] hours as needed for Itching. hydrOXYzine 1-0 Yes [id number] 50mg Take 1 [facility] 50 mg 9-03 tablet by [facility] tablet 00:00: mouth [place] 00 every 6 [facility] (six) [facility] hours as needed for Itching. hydrOXYzine 2020-0 Yes [id number] 50mg Take 1 [facility] 50 mg 9-03 tablet by [facility] tablet 00:00: mouth [place] 00 every 6 [facility] (six) [facility] hours as needed for Itching. hydrOXYzine 1-0 Yes [id number] 50mg Take 1 [facility] 50 mg 9-03 tablet by [facility] tablet 00:00: mouth [place] 00 every 6 [facility] (six) [facility] hours as needed for Itching. hydrOXYzine 1-0 Yes [id number] 50mg Take 1 [facility] 50 mg 9-03 tablet by [facility] tablet 00:00: mouth [place] 00 every 6 [facility] (six) [facility] hours as needed for Itching. hydrOXYzine 1-0 Yes [id number] 50mg Take 1 [facility] 50 mg 9-03 tablet by [facility] tablet 00:00: mouth [place] 00 every 6 [facility] (six) [facility] hours as needed for Itching. hydrOXYzine 2021-0 Yes [id number] 50mg Take 1 [facility] 50 mg 9-03 tablet by [facility] tablet 00:00: mouth [place] 00 every 6 [facility] (six) Branch hours as needed for Itching. hydrOXYzine 2021-0 Yes [id number] 50mg Take 1 [facility] 50 mg 9-03 tablet by [facility] tablet 00:00: mouth [place] 00 every 6 [facility] (six) Branch hours as needed for Itching. hydrOXYzine 2021-0 Yes [id number] 50mg Take 1 [facility] 50 mg 9-03 tablet by [facility] tablet 00:00: mouth [place] 00 every 6 [facility] (six) Branch hours as needed for Itching. hydrOXYzine 2021-0 Yes [id number] 50mg Take 1 [facility] 50 mg 9-03 tablet by [facility] tablet 00:00: mouth [place] 00 every 6 [facility] (six) Branch hours as needed for Itching. hydrOXYzine 1-0 Yes [id number] 50mg Take 1 [facility] 50 mg 9-03 tablet by [facility] tablet 00:00: mouth [place] 00 every 6 [facility] (six) Branch hours as needed for Itching. hydrOXYzine 1-0 Yes [id number] 50mg Take 1 [facility] 50 mg 9-03 tablet by [facility] tablet 00:00: mouth [place] 00 every 6 [facility] (six) Branch hours as needed for Itching. hydrOXYzine 1-0 Yes [id number] 50mg Take 1 [facility] 50 [facility] 9-03 tablet by [facility] of tablet 00:00: mouth [place] 00 every 6 [facility] (six) Branch hours as needed for Itching. hydrOXYzine 1-0 Yes [id number] 50mg Take 1 [facility] 50 mg 9-03 tablet by [facility] of tablet 00:00: mouth [place] 00 every 6 [facility] (six) Branch hours as needed for Itching. hydrOXYzine 2021-0 Yes [id number] 50mg Take 1 [facility] 50 mg 9-03 tablet by [facility] of tablet 00:00: mouth [place] 00 every 6 [facility] (six) Branch hours as needed for Itching. hydrOXYzine 1-0 Yes [id number] 50mg Take 1 [facility] 50 mg 9-03 tablet by [facility] of tablet 00:00: mouth [place] 00 every 6 Medical (six) Branch hours as needed for Itching. hydrOXYzine 2021-0 Yes [id number] 50mg Take 1 [facility] 50 mg 9-03 tablet by [facility] of tablet 00:00: mouth [place] 00 every 6 Medical (six) Branch hours as needed for Itching. hydrOXYzine 2021-0 Yes [id number] 50mg Take 1 [facility] 50 mg 9-03 tablet by [facility] of tablet 00:00: mouth [place] 00 every 6 [facility] (six) Branch hours as needed for Itching. hydrOXYzine 1-0 Yes [id number] 50mg Take 1 [facility] 50 mg 9-03 tablet by [facility] of tablet 00:00: mouth [place] 00 every 6 [facility] (six) Branch hours as needed for Itching. hydrOXYzine 1-0 Yes [id number] 50mg Take 1 [facility] 50 mg 9-03 tablet by [facility] of tablet 00:00: mouth [place] 00 every 6 Medical (six) Branch hours as needed for Itching. hydrOXYzine 2020-0 Yes [id number] 50mg Take 1 [facility] 50 mg 9-03 tablet by [facility] of tablet 00:00: mouth [place] 00 every 6 [facility] (six) Branch hours as needed for Itching. hydrOXYzine 2020-0 Yes [id number] 50mg Take 1 [facility] 50 mg 9-03 tablet by [facility] of tablet 00:00: mouth [place] 00 every 6 Medical (six) Branch hours as needed for Itching. hydrOXYzine 2020-0 Yes [id number] 50mg Take 1 [facility] 50 mg 9-03 tablet by [facility] of tablet 00:00: mouth [place] 00 every 6 [facility] (six) Branch hours as needed for Itching. hydrOXYzine 2020-0 Yes [id number] 50mg Take 1 [facility] 50 mg 9-03 tablet by [facility] of tablet 00:00: mouth [place] 00 every 6 Medical (six) Branch hours as needed for Itching. hydrOXYzine 2020-0 2023- No [id number] 50mg Take 1 [facility] 50 mg 9-03 02-02 tablet by ity of tablet 00:00: 00:00 mouth [place] 00 :00 every 6 Medical (six) Branch hours as needed for Itching. Pancrelipas 2020-0 Yes Take up to [facility] e, 01-21 7 capsules [place] Lip-Prot-Am 00:00: by mouth of yl, (CREON) 00 with meals Me dicin [id number] and 3 with e 0 units each CPEP snack. Up to 3 times a day. Pancrelipas 0 Yes Take up to [facility] e, 01-21 7 capsules [place] Lip-Prot-Am 00:00: by mouth of yl, (CREON) 00 with meals Me dicin [id number] and 3 with e 0 units each CPEP snack. Up to 3 times a day. lipase-prot 2021-0 Yes [id number] Take up to [facility] 7-16 7 capsules it y of e (CRE[place]) 00:00: by mouth [place] 36,000-114, 00 with meals Me dical 000- and 3 with Branch 180,000 each unit CpDR snack. Up to 3 times a day. lipase-prot Yes [id number] Take up to [facility] 7-16 7 capsules it y of e (CREON) 00:00: by mouth [place] 36,000-114, 00 with meals Me dical 000- and 3 with Branch 180,000 each unit CpDR snack. Up to 3 times a day. lipase-prot Yes [id number] Take up to [facility] 7-16 7 capsules it y of e (CREON) 00:00: by mouth [place] 36,000-114, 00 with meals Me dical 000- and 3 with Branch 180,000 each unit CpDR snack. Up to 3 times a day. lipase-prot Yes [id number] Take up to [facility] 7-16 7 capsules it y of e (CREON) 00:00: by mouth [place] 36,000-114, 00 with meals Me dical 000- and 3 with Branch 180,000 each unit CpDR snack. Up to 3 times a day. lipase-prot Yes [id number] Take up to [facility] 7-16 7 capsules it y of e (CREON) 00:00: by mouth [place] 36,000-114, 00 with meals Me dical 000- and 3 with Branch 180,000 each unit CpDR snack. Up to 3 times a day. lipase-prot Yes [id number] Take up to [facility] 7-16 7 capsules it y of e (CREON) 00:00: by mouth [place] 36,000-114, 00 with meals Me dical 000- and 3 with Branch 180,000 each unit CpDR snack. Up to 3 times a day. lipase-prot Yes [id number] Take up to [facility] 7-16 7 capsules it y of e (CREON) 00:00: by mouth [place] 36,000-114, 00 with meals Me dical 000- and 3 with Branch 180,000 each unit CpDR snack. Up to 3 times a day. lipase-prot 2020-0 Yes [id number] Take up to [facility] 7-16 7 capsules it y of e (CREON) 00:00: by mouth [place] 36,000-114, 00 with meals Me dical 000- and 3 with Branch 180,000 each unit CpDR snack. Up to 3 times a day. lipase-prot 2020-0 Yes [id number] Take up to [facility] 7-16 7 capsules it y of e (CREON) 00:00: by mouth [place] 36,000-114, 00 with meals Me dical 000- and 3 with Branch 180,000 each unit CpDR snack. Up to 3 times a day. lipase-prot 0 Yes [id number] Take up to [facility] 7-16 7 capsules it y of e (CREON) 00:00: by mouth [place] 36,000-114, 00 with meals Me dical 000- and 3 with Branch 180,000 each unit CpDR snack. Up to 3 times a day. lipase-prot 0 Yes [id number] Take up to [facility] 7-16 7 capsules it y of e (CREON) 00:00: by mouth [place] 36,000-114, 00 with meals Me dical 000- and 3 with Branch 180,000 each unit CpDR snack. Up to 3 times a day. lipase-prot 2020-0 Yes [id number] Take up to [facility] 7-16 7 capsules it y of e (CREON) 00:00: by mouth [place] 36,000-114, 00 with meals Me dical 000- and 3 with Branch 180,000 each unit CpDR snack. Up to 3 times a day. lipase-prot 2020-0 Yes [id number] Take up to [facility] 7-16 7 capsules it y of e (CREON) 00:00: by mouth [place] 36,000-114, 00 with meals Me dical 000- and 3 with Branch 180,000 each unit CpDR snack. Up to 3 times a day. lipase-prot 2020-0 Yes [id number] Take up to [facility] 7-16 7 capsules it y of e (CREON) 00:00: by mouth [place] 36,000-114, 00 with meals Me dical 000- and 3 with Branch 180,000 each unit CpDR snack. Up to 3 times a day. lipase-prot 2020-0 Yes [id number] Take up to [facility] 7-16 7 capsules it y of e (CREON) 00:00: by mouth [place] 36,000-114, 00 with meals Me dical 000- and 3 with Branch 180,000 each unit CpDR snack. Up to 3 times a day. lipase-prot 0 Yes [id number] Take up to [facility] 7-16 7 capsules it y of e (CREON) 00:00: by mouth [place] 36,000-114, 00 with meals Me dical 000- and 3 with Branch 180,000 each unit CpDR snack. Up to 3 times a day. lipase-prot 2020-0 Yes [id number] Take up to [facility] 7-16 7 capsules it y of e (CREON) 00:00: by mouth [place] 36,000-114, 00 with meals Me dical 000- and 3 with Branch 180,000 each unit CpDR snack. Up to 3 times a day. lipase-prot 0 Yes [id number] Take up to [facility] 7-16 7 capsules it y of e (CREON) 00:00: by mouth [place] 36,000-114, 00 with meals Me dical 000- and 3 with Branch 180,000 each unit CpDR snack. Up to 3 times a day. lipase-prot 0 Yes [id number] Take up to [facility] 7-16 7 capsules it y of e (CREON) 00:00: by mouth [place] 36,000-114, 00 with meals Me dical 000- and 3 with Branch 180,000 each unit CpDR snack. Up to 3 times a day. lipase-prot 2020-0 Yes [id number] Take up to [facility] 7-16 7 capsules it y of e (CREON) 00:00: by mouth [place] 36,000-114, 00 with meals Me dical 000- and 3 with Branch 180,000 each unit CpDR snack. Up to 3 times a day. lipase-prot 2021-0 Yes [id number] Take up to [facility] 7-16 7 capsules it y of e (CREON) 00:00: by mouth [place] 36,000-114, 00 with meals Me dical 000- and 3 with Branch 180,000 each unit CpDR snack. Up to 3 times a day. lipase-prot Yes [id number] Take up to [facility] 7-16 7 capsules it y of e (CREON) 00:00: by mouth [place] 36,000-114, 00 with meals Me dical 000- and 3 with Branch 180,000 each unit CpDR snack. Up to 3 times a day. lipase-prot Yes [id number] Take up to [facility] 7-16 7 capsules it y of e (CREON) 00:00: by mouth [place] 36,000-114, 00 with meals Me dical 000- and 3 with Branch 180,000 each unit CpDR snack. Up to 3 times a day. lipase-prot Yes [id number] Take up to [facility] 7-16 7 capsules it y of e (CREON) 00:00: by mouth [place] 36,000-114, 00 with meals Me dical 000- and 3 with Branch 180,000 each unit CpDR snack. Up to 3 times a day. lipase-prot Yes [id number] Take up to [facility] 7-16 7 capsules it y of e (CREON) 00:00: by mouth [place] 36,000-114, 00 with meals Me dical 000- and 3 with Branch 180,000 each unit CpDR snack. Up to 3 times a day. lipase-prot Yes [id number] Take up to [facility] 7-16 7 capsules it y of e (CREON) 00:00: by mouth [place] 36,000-114, 00 with meals Me dical 000- and 3 with Branch 180,000 each unit CpDR snack. Up to 3 times a day. lipase-prot Yes [id number] Take up to [facility] 7-16 7 capsules it y of e (CREON) 00:00: by mouth [place] 36,000-114, 00 with meals Me dical 000- and 3 with Branch 180,000 each unit CpDR snack. Up to 3 times a day. lipase-prot 2020-0 Yes [id number] Take up to [facility] 7-16 7 capsules it y of e (CREON) 00:00: by mouth [place] 36,000-114, 00 with meals Me dical 000- and 3 with Branch 180,000 each unit CpDR snack. Up to 3 times a day. lipase-prot 2020-0 Yes [id number] Take up to [facility] 7-16 7 capsules it y of e (CREON) 00:00: by mouth [place] 36,000-114, 00 with meals Me dical 000- and 3 with Branch 180,000 each unit CpDR snack. Up to 3 times a day. lipase-prot 0 Yes [id number] Take up to [facility] 7-16 7 capsules it y of e (CREON) 00:00: by mouth [place] 36,000-114, 00 with meals Me dical 000- and 3 with Branch 180,000 each unit CpDR snack. Up to 3 times a day. lipase-prot 0 Yes [id number] Take up to [facility] 7-16 7 capsules it y of e (CREON) 00:00: by mouth [place] 36,000-114, 00 with meals Me dical 000- and 3 with Branch 180,000 each unit CpDR snack. Up to 3 times a day. lipase-prot 2020-0 Yes [id number] Take up to [facility] 7-16 7 capsules it y of e (CREON) 00:00: by mouth [place] 36,000-114, 00 with meals Me dical 000- and 3 with Branch 180,000 each unit CpDR snack. Up to 3 times a day. lipase-prot 2020-0 Yes [id number] Take up to [facility] 7-16 7 capsules it y of e (CREON) 00:00: by mouth [place] 36,000-114, 00 with meals Me dical 000- and 3 with Branch 180,000 each unit CpDR snack. Up to 3 times a day. lipase-prot 2020-0 Yes [id number] Take up to [facility] 7-16 7 capsules it y of e (CREON) 00:00: by mouth [place] 36,000-114, 00 with meals Me dical 000- and 3 with Branch 180,000 each unit CpDR snack. Up to 3 times a day. lipase-prot 2020-0 Yes [id number] Take up to [facility] 7-16 7 capsules it y of e (CREON) 00:00: by mouth [place] 36,000-114, 00 with meals Me dical 000- and 3 with Branch 180,000 each unit CpDR snack. Up to 3 times a day. lipase-prot 0 Yes [id number] Take up to [facility] 7-16 7 capsules it y of e (CREON) 00:00: by mouth [place] 36,000-114, 00 with meals Me dical 000- and 3 with Branch 180,000 each unit CpDR snack. Up to 3 times a day. lipase-prot 2020-0 Yes [id number] Take up to [facility] 7-16 7 capsules it y of e (CREON) 00:00: by mouth [place] 36,000-114, 00 with meals Me dical 000- and 3 with Branch 180,000 each unit CpDR snack. Up to 3 times a day. lipase-prot 0 Yes [id number] Take up to [facility] 7-16 7 capsules it y of e (CREON) 00:00: by mouth [place] 36,000-114, 00 with meals Me dical 000- and 3 with Branch 180,000 each unit CpDR snack. Up to 3 times a day. lipase-prot 0 Yes [id number] Take up to [facility] 7-16 7 capsules it y of e (CREON) 00:00: by mouth [place] 36,000-114, 00 with meals Me dical 000- and 3 with Branch 180,000 each unit CpDR snack. Up to 3 times a day. lipase-prot 2020-0 Yes [id number] Take up to [facility] 7-16 7 capsules it y of e (CREON) 00:00: by mouth [place] 36,000-114, 00 with meals Me dical 000- and 3 with Branch 180,000 each unit CpDR snack. Up to 3 times a day. lipase-prot 2021-0 Yes [id number] Take up to [facility] 7-16 7 capsules it y of e (CREON) 00:00: by mouth [place] 36,000-114, 00 with meals Me dical 000- and 3 with Branch 180,000 each unit CpDR snack. Up to 3 times a day. lipase-prot Yes [id number] Take up to [facility] 7-16 7 capsules it y of e (CREON) 00:00: by mouth [place] 36,000-114, 00 with meals Me dical 000- and 3 with Branch 180,000 each unit CpDR snack. Up to 3 times a day. lipase-prot Yes [id number] Take up to [facility] 7-16 7 capsules it y of e (CREON) 00:00: by mouth [place] 36,000-114, 00 with meals Me dical 000- and 3 with Branch 180,000 each unit CpDR snack. Up to 3 times a day. lipase-prot Yes [id number] Take up to [facility] 7-16 7 capsules it y of e (CREON) 00:00: by mouth [place] 36,000-114, 00 with meals Me dical 000- and 3 with Branch 180,000 each unit CpDR snack. Up to 3 times a day. lipase-prot Yes [id number] Take up to [facility] 7-16 7 capsules it y of e (CREON) 00:00: by mouth [place] 36,000-114, 00 with meals Me dical 000- and 3 with Branch 180,000 each unit CpDR snack. Up to 3 times a day. lipase-prot Yes [id number] Take up to [facility] 7-16 7 capsules it y of e (CREON) 00:00: by mouth [place] 36,000-114, 00 with meals Me dical 000- and 3 with Branch 180,000 each unit CpDR snack. Up to 3 times a day. lipase-prot Yes [id number] Take up to [facility] 7-16 7 capsules it y of e (CREON) 00:00: by mouth [place] 36,000-114, 00 with meals Me dical 000- and 3 with Branch 180,000 each unit CpDR snack. Up to 3 times a day. lipase-prot 2020-0 Yes [id number] Take up to [facility] 7-16 7 capsules it y of e (CREON) 00:00: by mouth [place] 36,000-114, 00 with meals Me dical 000- and 3 with Branch 180,000 each unit CpDR snack. Up to 3 times a day. lipase-prot 2020-0 Yes [id number] Take up to [facility] 7-16 7 capsules it y of e (CREON) 00:00: by mouth [place] 36,000-114, 00 with meals Me dical 000- and 3 with Branch 180,000 each unit CpDR snack. Up to 3 times a day. lipase-prot 0 Yes [id number] Take up to [facility] 7-16 7 capsules it y of e (CREON) 00:00: by mouth [place] 36,000-114, 00 with meals Me dical 000- and 3 with Branch 180,000 each unit CpDR snack. Up to 3 times a day. lipase-prot 0 Yes [id number] Take up to [facility] 7-16 7 capsules it y of e (CREON) 00:00: by mouth [place] 36,000-114, 00 with meals Me dical 000- and 3 with Branch 180,000 each unit CpDR snack. Up to 3 times a day. lipase-prot 2020-0 Yes [id number] Take up to [facility] 7-16 7 capsules it y of e (CREON) 00:00: by mouth [place] 36,000-114, 00 with meals Me dical 000- and 3 with Branch 180,000 each unit CpDR snack. Up to 3 times a day. lipase-prot 2020-0 Yes [id number] Take up to [facility] 7-16 7 capsules it y of e (CREON) 00:00: by mouth [place] 36,000-114, 00 with meals Me dical 000- and 3 with Branch 180,000 each unit CpDR snack. Up to 3 times a day. lipase-prot 2020-0 Yes [id number] Take up to [facility] 7-16 7 capsules it y of e (CREON) 00:00: by mouth [place] 36,000-114, 00 with meals Me dical 000- and 3 with Branch 180,000 each unit CpDR snack. Up to 3 times a day. lipase-prot 2020-0 Yes [id number] Take up to [facility] 7-16 7 capsules it y of e (CREON) 00:00: by mouth [place] 36,000-114, 00 with meals Me dical 000- and 3 with Branch 180,000 each unit CpDR snack. Up to 3 times a day. lipase-prot 0 Yes [id number] Take up to [facility] 7-16 7 capsules it y of e (CREON) 00:00: by mouth [place] 36,000-114, 00 with meals Me dical 000- and 3 with Branch 180,000 each unit CpDR snack. Up to 3 times a day. lipase-prot 2020-0 Yes [id number] Take up to [facility] 7-16 7 capsules it y of e (CREON) 00:00: by mouth [place] 36,000-114, 00 with meals Me dical 000- and 3 with Branch 180,000 each unit CpDR snack. Up to 3 times a day. lipase-prot 0 Yes [id number] Take up to [facility] 7-16 7 capsules it y of e (CREON) 00:00: by mouth [place] 36,000-114, 00 with meals Me dical 000- and 3 with Branch 180,000 each unit CpDR snack. Up to 3 times a day. lipase-prot 0 Yes [id number] Take up to [facility] 7-16 7 capsules it y of e (CREON) 00:00: by mouth [place] 36,000-114, 00 with meals Me dical 000- and 3 with Branch 180,000 each unit CpDR snack. Up to 3 times a day. lipase-prot 2020-0 Yes [id number] Take up to [facility] 7-16 7 capsules it y of e (CREON) 00:00: by mouth [place] 36,000-114, 00 with meals Me dical 000- and 3 with Branch 180,000 each unit CpDR snack. Up to 3 times a day. lipase-prot 2021-0 Yes [id number] Take up to [facility] 7-16 7 capsules it y of e (CREON) 00:00: by mouth [place] 36,000-114, 00 with meals Me dical 000- and 3 with Branch 180,000 each unit CpDR snack. Up to 3 times a day. lipase-prot Yes [id number] Take up to [facility] 7-16 7 capsules it y of e (CREON) 00:00: by mouth [place] 36,000-114, 00 with meals Me dical 000- and 3 with Branch 180,000 each unit CpDR snack. Up to 3 times a day. lipase-prot Yes [id number] Take up to [facility] 7-16 7 capsules it y of e (CREON) 00:00: by mouth [place] 36,000-114, 00 with meals Me dical 000- and 3 with Branch 180,000 each unit CpDR snack. Up to 3 times a day. lipase-prot Yes [id number] Take up to [facility] 7-16 7 capsules it y of e (CREON) 00:00: by mouth [place] 36,000-114, 00 with meals Me dical 000- and 3 with Branch 180,000 each unit CpDR snack. Up to 3 times a day. lipase-prot Yes [id number] Take up to [facility] 7-16 7 capsules it y of e (CREON) 00:00: by mouth [place] 36,000-114, 00 with meals Me dical 000- and 3 with Branch 180,000 each unit CpDR snack. Up to 3 times a day. lipase-prot Yes [id number] Take up to [facility] 7-16 7 capsules it y of e (CREON) 00:00: by mouth [place] 36,000-114, 00 with meals Me dical 000- and 3 with Branch 180,000 each unit CpDR snack. Up to 3 times a day. lipase-prot Yes [id number] Take up to [facility] 7-16 7 capsules it y of e (CREON) 00:00: by mouth [place] 36,000-114, 00 with meals Me dical 000- and 3 with Branch 180,000 each unit CpDR snack. Up to 3 times a day. lipase-prot 2020-0 Yes [id number] Take up to [facility] 7-16 7 capsules it y of e (CREON) 00:00: by mouth [place] 36,000-114, 00 with meals Me dical 000- and 3 with Branch 180,000 each unit CpDR snack. Up to 3 times a day. lipase-prot 2020-0 Yes [id number] Take up to [facility] 7-16 7 capsules it y of e (CREON) 00:00: by mouth [place] 36,000-114, 00 with meals Me dical 000- and 3 with Branch 180,000 each unit CpDR snack. Up to 3 times a day. lipase-prot 0 Yes [id number] Take up to [facility] 7-16 7 capsules it y of e (CREON) 00:00: by mouth [place] 36,000-114, 00 with meals Me dical 000- and 3 with Branch 180,000 each unit CpDR snack. Up to 3 times a day. lipase-prot 0 Yes [id number] Take up to [facility] 7-16 7 capsules it y of e (CREON) 00:00: by mouth [place] 36,000-114, 00 with meals Me dical 000- and 3 with Branch 180,000 each unit CpDR snack. Up to 3 times a day. lipase-prot 2020-0 Yes [id number] Take up to [facility] 7-16 7 capsules it y of e (CREON) 00:00: by mouth [place] 36,000-114, 00 with meals Me dical 000- and 3 with Branch 180,000 each unit CpDR snack. Up to 3 times a day. lipase-prot 2020-0 Yes [id number] Take up to [facility] 7-16 7 capsules it y of e (CREON) 00:00: by mouth [place] 36,000-114, 00 with meals Me dical 000- and 3 with Branch 180,000 each unit CpDR snack. Up to 3 times a day. lipase-prot 2020-0 Yes [id number] Take up to [facility] 7-16 7 capsules it y of e (CREON) 00:00: by mouth [place] 36,000-114, 00 with meals Me dical 000- and 3 with Branch 180,000 each unit CpDR snack. Up to 3 times a day. lipase-prot 2020-0 Yes [id number] Take up to [facility] 7-16 7 capsules it y of e (CREON) 00:00: by mouth [place] 36,000-114, 00 with meals Me dical 000- and 3 with Branch 180,000 each unit CpDR snack. Up to 3 times a day. lipase-prot 0 Yes [id number] Take up to [facility] 7-16 7 capsules it y of e (CREON) 00:00: by mouth [place] 36,000-114, 00 with meals Me dical 000- and 3 with Branch 180,000 each unit CpDR snack. Up to 3 times a day. lipase-prot 2020-0 Yes [id number] Take up to [facility] 7-16 7 capsules it y of e (CREON) 00:00: by mouth [place] 36,000-114, 00 with meals Me dical 000- and 3 with Branch 180,000 each unit CpDR snack. Up to 3 times a day. lipase-prot 0 Yes [id number] Take up to [facility] 7-16 7 capsules it y of e (CREON) 00:00: by mouth [place] 36,000-114, 00 with meals Me dical 000- and 3 with Branch 180,000 each unit CpDR snack. Up to 3 times a day. lipase-prot 0 Yes [id number] Take up to [facility] 7-16 7 capsules it y of e (CREON) 00:00: by mouth [place] 36,000-114, 00 with meals Me dical 000- and 3 with Branch 180,000 each unit CpDR snack. Up to 3 times a day. lipase-prot 2020-0 Yes [id number] Take up to [facility] 7-16 7 capsules it y of e (CREON) 00:00: by mouth [place] 36,000-114, 00 with meals Me dical 000- and 3 with Branch 180,000 each unit CpDR snack. Up to 3 times a day. lipase-prot 2021-0 Yes [id number] Take up to [facility] 7-16 7 capsules it y of e (CREON) 00:00: by mouth [place] 36,000-114, 00 with meals Me dical 000- and 3 with Branch 180,000 each unit CpDR snack. Up to 3 times a day. lipase-prot Yes [id number] Take up to [facility] 7-16 7 capsules it y of e (CREON) 00:00: by mouth [place] 36,000-114, 00 with meals Me dical 000- and 3 with Branch 180,000 each unit CpDR snack. Up to 3 times a day. lipase-prot Yes [id number] Take up to [facility] 7-16 7 capsules it y of e (CREON) 00:00: by mouth [place] 36,000-114, 00 with meals Me dical 000- and 3 with Branch 180,000 each unit CpDR snack. Up to 3 times a day. lipase-prot Yes [id number] Take up to [facility] 7-16 7 capsules it y of e (CREON) 00:00: by mouth [place] 36,000-114, 00 with meals Me dical 000- and 3 with Branch 180,000 each unit CpDR snack. Up to 3 times a day. lipase-prot Yes [id number] Take up to [facility] 7-16 7 capsules it y of e (CREON) 00:00: by mouth [place] 36,000-114, 00 with meals Me dical 000- and 3 with Branch 180,000 each unit CpDR snack. Up to 3 times a day. lipase-prot Yes [id number] Take up to [facility] 7-16 7 capsules it y of e (CREON) 00:00: by mouth [place] 36,000-114, 00 with meals Me dical 000- and 3 with Branch 180,000 each unit CpDR snack. Up to 3 times a day. lipase-prot Yes [id number] Take up to [facility] 7-16 7 capsules it y of e (CREON) 00:00: by mouth [place] 36,000-114, 00 with meals Me dical 000- and 3 with Branch 180,000 each unit CpDR snack. Up to 3 times a day. lipase-prot 2020-0 Yes [id number] Take up to [facility] 7-16 7 capsules it y of e (CREON) 00:00: by mouth [place] 36,000-114, 00 with meals Me dical 000- and 3 with Branch 180,000 each unit CpDR snack. Up to 3 times a day. lipase-prot 2020-0 Yes [id number] Take up to [facility] 7-16 7 capsules it y of e (CREON) 00:00: by mouth [place] 36,000-114, 00 with meals Me dical 000- and 3 with Branch 180,000 each unit CpDR snack. Up to 3 times a day. lipase-prot 0 Yes [id number] Take up to [facility] 7-16 7 capsules it y of e (CRE[place]) 00:00: by mouth [place] 36,000-114, 00 with meals Me dical 000- and 3 with Branch 180,000 each unit CpDR snack. Up to 3 times a day. lipase-prot 0 Yes [id number] Take up to [facility] 7-16 7 capsules it y of e (CRE[place]) 00:00: by mouth [place] 36,000-114, 00 with meals Me dical 000- and 3 with Branch 180,000 each unit CpDR snack. Up to 3 times a day. lipase-prot 2020-0 Yes [id number] Take up to [facility] 7-16 7 capsules it y of e (CREON) 00:00: by mouth [place] 36,000-114, 00 with meals Me dical 000- and 3 with Branch 180,000 each unit CpDR snack. Up to 3 times a day. lipase-prot 2020-0 Yes [id number] Take up to [facility] 7-16 7 capsules it y of e (CRE[place]) 00:00: by mouth [place] 36,000-114, 00 with meals Me dical 000- and 3 with Branch 180,000 each unit CpDR snack. Up to 3 times a day. lipase-prot 2020-0 Yes [id number] Take up to [facility] 7-16 7 capsules it y of e (CRE[facility]) 00:00: by mouth [place] 36,000-114, 00 with meals Me dical 000- and 3 with Branch 180,000 each unit CpDR snack. Up to 3 times a day. lipase-prot 2020-0 Yes [id number] Take up to [facility] 7-16 7 capsules it y of e (CREON) 00:00: by mouth [place] 36,000-114, 00 with meals Me dical 000- and 3 with Branch 180,000 each unit CpDR snack. Up to 3 times a day. lipase-prot 0 Yes [id number] Take up to [facility] 7 capsules [facility] ([facility]) 00:00: [place] 36,000-114, 00 with meals [facility] d[facility] 000- and 3 with Branch 180,000 each unit CpDR snack. Up to 3 times a day. lipase-prot 2020-0 Yes [id number] Take up to [facility] 7[facility]16 7 capsules [facility] e ([facility]) 00:00: [place] mouth [place] 36,000-114, 00 with meals Me dical 000- and 3 with Branch 180,000 each unit CpDR snack. Up to 3 times a day. lipase-prot 0 Yes [id number] Take up to [facility] 7[facility]16 7 capsules [facility] e ([facility]) 00:00: by mouth [place] 36,000-114, 00 with meals Me dical 000- and 3 with Branch 180,000 each unit CpDR snack. Up to 3 times a day. lipase-prot 0 Yes [id number] Take up to [facility] 7[facility]16 7 capsules [facility] y of e ([facility]) 00:00: by mouth [place] 36,000-114, 00 with meals Me d[facility] 000- and 3 with Branch 180,000 each unit CpDR snack. Up to 3 times a day. lipase-prot 2020-0 Yes [id number] Take up to [facility] 7[facility]16 7 capsules [facility] y of e ([facility]) 00:00: by mouth [place] 36,000-114, 00 with meals Me dical 000- and 3 with Branch 180,000 each unit CpDR snack. Up to 3 times a day. lipase-prot 2021-0 Yes [id number] Take up to [facility] 7[facility]16 7 capsules [facility] y [facility] e ([facility]) 00:00: by mouth [place] 36,000-114, 00 with meals Me dical 000- and 3 with Branch 180,000 each unit CpDR snack. Up to 3 times a day. lipase-prot Yes [id number] Take up to [facility] 7[facility]16 7 capsules [facility] y [facility] e ([facility]) 00:00: by mouth [place] 36,000-114, 00 with meals Me dical 000- and 3 with Branch 180,000 each unit CpDR snack. Up to 3 times a day. lipase-prot Yes [id number] Take up to [facility] 7[facility]16 7 capsules [facility] y [facility] e ([facility]) 00:00: by mouth [place] 36,000-114, 00 with meals Me dical 000- and 3 with Branch 180,000 each unit CpDR snack. Up to 3 times a day. lipase-prot Yes [id number] Take up to [facility] 7[facility]16 7 capsules [facility] y [facility] e ([facility]) 00:00: by mouth [place] 36,000-114, 00 with meals Me dical 000- and 3 with [facility] 180,000 each unit CpDR snack. Up to 3 times a day. lipase-prot Yes [id number] Take up to [facility] 7[facility]16 7 capsules [facility] e ([facility]) 00:00: by mouth [place] 36,000-114, 00 with meals Me dical 000- and 3 with [facility] 180,000 each unit CpDR snack. Up to 3 times a day. lipase-prot Yes [id number] Take up to [facility] 7[facility]16 7 capsules [facility] e ([facility]) 00:00: by mouth [place] 36,000-114, 00 with meals Me d[facility] 000- and 3 with [facility] 180,000 each unit CpDR snack. Up to 3 times a day. lipase-prot Yes [id number] Take up to [facility] 7[facility]16 7 capsules [facility] e ([facility]) 00:00: by mouth [place] 36,000-114, 00 with meals Me d[facility] 000- and 3 with [facility] 180,000 each unit CpDR snack. Up to 3 times a day. lipase-prot 2020-0 Yes [id number] Take up to [facility] 7[facility]16 7 capsules [facility] e ([facility]) 00:00: by mouth [place] 36,000-114, 00 with meals Me dical 000- and 3 with [facility] 180,000 each unit CpDR snack. Up to 3 times a day. lipase-prot 2020-0 Yes [id number] Take up to [facility] 7[facility]16 7 capsules [facility] e ([facility]) 00:00: by mouth [place] 36,000-114, 00 with meals Me dical 000- and 3 with Branch 180,000 each unit CpDR snack. Up to 3 times a day. lipase-prot 0 Yes [id number] Take up to [facility] 7[facility]16 7 capsules [facility] e ([facility]) 00:00: by mouth [place] 36,000-114, 00 with meals Me dical 000- and 3 with Branch 180,000 each unit CpDR snack. Up to 3 times a day. lipase-prot 0 Yes [id number] Take up to [facility] 7[facility]16 7 capsules [facility] e ([facility]) 00:00: by mouth [place] 36,000-114, 00 with meals Me dical 000- and 3 with Branch 180,000 each unit CpDR snack. Up to 3 times a day. lipase-prot 2020-0 Yes [id number] Take up to [facility] 7[facility]16 7 capsules [facility] e ([facility]) 00:00: by mouth [place] 36,000-114, 00 with meals Me dical 000- and 3 with Branch 180,000 each unit CpDR snack. Up to 3 times a day. lipase-prot 2020-0 Yes [id number] Take up to [facility] 7[facility]16 7 capsules [facility] e ([facility]) 00:00: by mouth [place] 36,000-114, 00 with meals Me dical 000- and 3 with Branch 180,000 each unit CpDR snack. Up to 3 times a day. lipase-prot 2020-0 Yes [id number] Take up to [facility] 7[facility]16 7 capsules [facility] y of e ([facility]) 00:00: by mouth [place] 36,000-114, 00 with meals Me dical 000- and 3 with Branch 180,000 each unit CpDR snack. Up to 3 times a day. lipase-prot 2020-0 Yes [id number] Take up to [facility] 7[facility]16 7 capsules [facility] y of e ([facility]) 00:00: by mouth [place] 36,000-114, 00 with meals Me dical 000- and 3 with Branch 180,000 each unit CpDR snack. Up to 3 times a day. lipase-prot 0 Yes [id number] Take up to [facility] 7[facility]16 7 capsules [facility] y [facility] e ([facility]) 00:00: by mouth [place] 36,000-114, 00 with meals Me dical 000- and 3 with Branch 180,000 each unit CpDR snack. Up to 3 times a day. lipase-prot 2020-0 Yes [id number] Take up to [facility] 7[facility]16 7 capsules [facility] e ([facility]) 00:00: by mouth [place] 36,000-114, 00 with meals Me dical 000- and 3 with Branch 180,000 each unit CpDR snack. Up to 3 times a day. lipase-prot 0 Yes [id number] Take up to [facility] 7[facility]16 7 capsules [facility] e ([facility]) 00:00: by mouth [place] 36,000-114, 00 with meals Me dical 000- and 3 with Branch 180,000 each unit CpDR snack. Up to 3 times a day. lipase-prot 0 Yes [id number] Take up to [facility] 7[facility]16 7 capsules [facility] e ([facility]) 00:00: by mouth [place] 36,000-114, 00 with meals Me dical 000- and 3 with Branch 180,000 each unit CpDR snack. Up to 3 times a day. lipase-prot 2020-0 Yes [id number] Take up to [facility] 7[facility]16 7 capsules [facility] e ([facility]) 00:00: by mouth [place] 36,000-114, 00 with meals Me dical 000- and 3 with Branch 180,000 each unit CpDR snack. Up to 3 times a day. lipase-prot 2021-0 Yes [id number] Take up to [facility] 7[facility]16 7 capsules [facility] e ([facility]) 00:00: by mouth [place] 36,000-114, 00 with meals Me dical 000- and 3 with Branch 180,000 each unit CpDR snack. Up to 3 times a day. lipase-prot Yes [id number] Take up to [facility] 7[facility]16 7 capsules [facility] e ([facility]) 00:00: by mouth [place] 36,000-114, 00 with meals Me dical 000- and 3 with Branch 180,000 each unit CpDR snack. Up to 3 times a day. lipase-prot Yes [id number] Take up to [facility] 7[facility]16 7 capsules [facility] y [facility] e ([facility]) 00:00: by mouth [place] 36,000-114, 00 with meals Me dical 000- and 3 with Branch 180,000 each unit CpDR snack. Up to 3 times a day. lipase-prot Yes [id number] Take up to [facility] 7[facility]16 7 capsules [facility] e ([facility]) 00:00: by mouth [place] 36,000-114, 00 with meals Me dical 000- and 3 with Branch 180,000 each unit CpDR snack. Up to 3 times a day. lipase-prot Yes [id number] Take up to [facility] 7[facility]16 7 capsules [facility] y [facility] e ([facility]) 00:00: by mouth [place] 36,000-114, 00 with meals Me dical 000- and 3 with Branch 180,000 each unit CpDR snack. Up to 3 times a day. lipase-prot Yes [id number] Take up to [facility] 7[facility]16 7 capsules [facility] y of e ([facility]) 00:00: by mouth [place] 36,000-114, 00 with meals Me dical 000- and 3 with Branch 180,000 each unit CpDR snack. Up to 3 times a day. lipase-prot Yes [id number] Take up to [facility] 7[facility]16 7 capsules [facility] y of e ([facility]) 00:00: by mouth [place] 36,000-114, 00 with meals Me dical 000- and 3 with Branch 180,000 each unit CpDR snack. Up to 3 times a day. lipase-prot 2020-0 Yes [id number] Take up to [facility]16 7 capsules [facility] y [facility] e ([facility]) 00:00: by mouth [place] 36,000-114, 00 with meals Me dical 000- and 3 with Branch 180,000 each unit CpDR snack. Up to 3 times a day. lipase-prot 2020-0 Yes [id number] Take up to [facility] 7[facility]16 7 capsules [facility] e ([facility]) 00:00: by mouth [place] 36,000-114, 00 with meals Me dical 000- and 3 with Branch 180,000 each unit CpDR snack. Up to 3 times a day. lipase-prot 0 Yes [id number] Take up to [facility] 7[facility]16 7 capsules [facility] y of e ([facility]) 00:00: by mouth [place] 36,000-114, 00 with meals Me dical 000- and 3 with Branch 180,000 each unit CpDR snack. Up to 3 times a day. lipase-prot 0 Yes [id number] Take up to [facility] 7[facility]16 7 capsules [facility] y of e ([facility]) 00:00: by mouth [place] 36,000-114, 00 with meals Me dical 000- and 3 with Branch 180,000 each unit CpDR snack. Up to 3 times a day. lipase-prot 2020-0 Yes [id number] Take up to [facility] 7[facility]16 7 capsules [facility] y [facility] e ([facility]) 00:00: by mouth [place] 36,000-114, 00 with meals Me dical 000- and 3 with Branch 180,000 each unit CpDR snack. Up to 3 times a day. lipase-prot 2020-0 Yes [id number] Take up to [facility] 7[facility]16 7 capsules [facility] y of e ([facility]) 00:00: by mouth [place] 36,000-114, 00 with meals Me dical 000- and 3 with Branch 180,000 each unit CpDR snack. Up to 3 times a day. lipase-prot 2020-0 Yes [id number] Take up to [facility] 7[facility]16 7 capsules [facility] y of e ([facility]) 00:00: by mouth [place] 36,000-114, 00 with meals Me dical 000- and 3 with Branch 180,000 each unit CpDR snack. Up to 3 times a day. lipase-prot 2020-0 Yes [id number] Take up to [facility] 7[facility]16 7 capsules [facility] y of e ([facility]) 00:00: by mouth [place] 36,000-114, 00 with meals Me dical 000- and 3 with Branch 180,000 each unit CpDR snack. Up to 3 times a day. lipase-prot 0 Yes [id number] Take up to [facility] 7[facility]16 7 capsules [facility] y of e ([facility]) 00:00: by mouth [place] 36,000-114, 00 with meals Me dical 000- and 3 with Branch 180,000 each unit CpDR snack. Up to 3 times a day. lipase-prot 2020-0 Yes [id number] Take up to [facility] 7[facility]16 7 capsules [facility] y of e ([facility]) 00:00: by mouth [place] 36,000-114, 00 with meals Me dical 000- and 3 with Branch 180,000 each unit CpDR snack. Up to 3 times a day. lipase-prot 0 Yes [id number] Take up to [facility] 7[facility]16 7 capsules [facility] y of e ([facility]) 00:00: by mouth [place] 36,000-114, 00 with meals Me dical 000- and 3 with Branch 180,000 each unit CpDR snack. Up to 3 times a day. lipase-prot 0 Yes [id number] Take up to [facility] 7[facility]16 7 capsules [facility] y of e ([facility]) 00:00: by mouth [place] 36,000-114, 00 with meals Me dical 000- and 3 with Branch 180,000 each unit CpDR snack. Up to 3 times a day. lipase-prot 2020-0 Yes [id number] Take up to [facility] 7[facility]16 7 capsules [facility] y of e ([facility]) 00:00: by mouth [place] 36,000-114, 00 with meals Me dical 000- and 3 with Branch 180,000 each unit CpDR snack. Up to 3 times a day. lipase-prot 2021-0 Yes [id number] Take up to [facility] 7[facility]16 7 capsules [facility] y of e ([facility]) 00:00: by mouth [place] 36,000-114, 00 with meals Me dical 000- and 3 with Branch 180,000 each unit CpDR snack. Up to 3 times a day. lipase-prot Yes [id number] Take up to [facility] 7[facility]16 7 capsules [facility] y of e ([facility]) 00:00: by mouth [place] 36,000-114, 00 with meals Me dical 000- and 3 with Branch 180,000 each unit CpDR snack. Up to 3 times a day. lipase-prot Yes [id number] Take up to [facility] 7[facility]16 7 capsules it y of e ([facility]) 00:00: by mouth [place] 36,000-114, 00 with meals Me dical 000- and 3 with Branch 180,000 each unit CpDR snack. Up to 3 times a day. lipase-prot Yes [id number] Take up to [facility] 7[facility]16 7 capsules [facility] y of e ([facility]) 00:00: by mouth [place] 36,000-114, 00 with meals Me dical 000- and 3 with Branch 180,000 each unit CpDR snack. Up to 3 times a day. lipase-prot Yes [id number] Take up to [facility] 7[facility]16 7 capsules [facility] y of e ([facility]) 00:00: by mouth [place] 36,000-114, 00 with meals Me dical 000- and 3 with Branch 180,000 each unit CpDR snack. Up to 3 times a day. lipase-prot Yes [id number] Take up to [facility] 7[facility]16 7 capsules it y of e ([facility]) 00:00: by mouth [place] 36,000-114, 00 with meals Me dical 000- and 3 with Branch 180,000 each unit CpDR snack. Up to 3 times a day. lipase-prot Yes [id number] Take up to [facility] 7[facility]16 7 capsules it y of e ([facility]) 00:00: by mouth [place] 36,000-114, 00 with meals Me dical 000- and 3 with Branch 180,000 each unit CpDR snack. Up to 3 times a day. lipase-prot 2020-0 Yes [id number] Take up to [facility] 7[facility]16 7 capsules it y of e ([facility]) 00:00: by mouth [place] 36,000-114, 00 with meals Me dical 000- and 3 with Branch 180,000 each unit CpDR snack. Up to 3 times a day. lipase-prot 2020-0 Yes [id number] Take up to [facility] 7[facility]16 7 capsules it y of e ([facility]) 00:00: by mouth [place] 36,000-114, 00 with meals Me dical 000- and 3 with Branch 180,000 each unit CpDR snack. Up to 3 times a day. lipase-prot 0 Yes [id number] Take up to [facility] 7[facility]16 7 capsules it y of e ([facility]) 00:00: by mouth [place] 36,000-114, 00 with meals Me dical 000- and 3 with Branch 180,000 each unit CpDR snack. Up to 3 times a day. lipase-prot 0 Yes [id number] Take up to [facility] 7[facility]16 7 capsules it y of e ([facility]) 00:00: by mouth [place] 36,000-114, 00 with meals Me dical 000- and 3 with Branch 180,000 each unit CpDR snack. Up to 3 times a day. lipase-prot 2020-0 Yes [id number] Take up to [facility]16 7 capsules it y of e ([facility]) 00:00: by mouth [place] 36,000-114, 00 with meals Me dical 000- and 3 with Branch 180,000 each unit CpDR snack. Up to 3 times a day. lipase-prot 2020-0 Yes [id number] Take up to [facility] 7[facility]16 7 capsules it y of e ([facility]) 00:00: by mouth [place] 36,000-114, 00 with meals Me dical 000- and 3 with Branch 180,000 each unit CpDR snack. Up to 3 times a day. lipase-prot 2020-0 Yes [id number] Take up to [facility]16 7 capsules it y of e ([facility]) 00:00: by mouth [place] 36,000-114, 00 with meals Me dical 000- and 3 with Branch 180,000 each unit CpDR snack. Up to 3 times a day. lipase-prot 2020-0 Yes [id number] Take up to [facility]16 7 capsules it y of e ([facility]) 00:00: by mouth [place] 36,000-114, 00 with meals Me dical 000- and 3 with Branch 180,000 each unit CpDR snack. Up to 3 times a day. lipase-prot 0 Yes [id number] Take up to [facility] 7[facility]16 7 capsules it y of e ([facility]) 00:00: by mouth [place] 36,000-114, 00 with meals Me dical 000- and 3 with Branch 180,000 each unit CpDR snack. Up to 3 times a day. lipase-prot 2020-0 Yes [id number] Take up to [facility]16 7 capsules it y of e ([facility]) 00:00: by mouth [place] 36,000-114, 00 with meals Me dical 000- and 3 with Branch 180,000 each unit CpDR snack. Up to 3 times a day. lipase-prot 0 Yes [id number] Take up to [facility] 7[facility]16 7 capsules it y of e ([facility]) 00:00: by mouth [place] 36,000-114, 00 with meals Me dical 000- and 3 with Branch 180,000 each unit CpDR snack. Up to 3 times a day. lipase-prot 0 Yes [id number] Take up to [facility] 7[facility]16 7 capsules it y of e ([facility]) 00:00: by mouth [place] 36,000-114, 00 with meals Me dical 000- and 3 with Branch 180,000 each unit CpDR snack. Up to 3 times a day. lipase-prot 2020-0 Yes [id number] Take up to [facility] 7[facility]16 7 capsules it y of e ([facility]) 00:00: by mouth [place] 36,000-114, 00 with meals Me dical 000- and 3 with Branch 180,000 each unit CpDR snack. Up to 3 times a day. lipase-prot 2020-0 Yes [id number] Take up to [facility]16 7 capsules it y of e ([facility]) 00:00: by mouth [place] 36,000-114, 00 with meals Me dical 000- and 3 with Branch 180,000 each unit CpDR snack. Up to 3 times a day. lipase-prot 0 Yes [id number] Take up to [facility]16 7 capsules it y of e ([facility]) 00:00: by mouth [place] 36,000-114, 00 with meals Me dical 000- and 3 with Branch 180,000 each unit CpDR snack. Up to 3 times a day. lipase-prot Yes [id number] Take up to [facility] 7[facility]16 7 capsules it y of e ([facility]) 00:00: by mouth [place] 36,000-114, 00 with meals Me dical 000- and 3 with Branch 180,000 each unit CpDR snack. Up to 3 times a day. lipase-prot Yes [id number] Take up to [facility] 7[facility]16 7 capsules it y of e ([facility]) 00:00: by mouth [place] 36,000-114, 00 with meals Me dical 000- and 3 with Branch 180,000 each unit CpDR snack. Up to 3 times a day. lipase-prot Yes [id number] Take up to [facility] 7[facility]16 7 capsules it y of e ([facility]) 00:00: by mouth [place] 36,000-114, 00 with meals Me dical 000- and 3 with Branch 180,000 each unit CpDR snack. Up to 3 times a day. ACETAZOLAMI 0 Yes [id number] TAKE 1 [facility] [place] 500 mg 6-16 CAPSULE BY ity of capsule 00:00: MOUTH [place] 00 TWICE A Medical DAY Branch ACETAZOLAMI 2020-0 Yes [id number] TAKE 1 [facility] [place] 500 mg 6-16 CAPSULE BY ity of capsule 00:00: MOUTH [place] 00 TWICE A Medical DAY Branch ACETAZOLAMI 2020-0 Yes [id number] TAKE 1 [facility] [place] 500 mg 6-16 CAPSULE BY ity of capsule 00:00: MOUTH [place] 00 TWICE A Medical DAY Branch ACETAZOLAMI 2020-0 Yes [id number] TAKE 1 [facility] [place] 500 mg 6-16 CAPSULE BY ity of capsule 00:00: MOUTH [place] 00 TWICE A Medical DAY Branch ACETAZOLAMI 2021-0 Yes [id number] TAKE 1 [facility] [place] 500 mg 6-16 CAPSULE BY ity of capsule 00:00: MOUTH TWICE A [facility] DAY [facility] ACETAZOLAMI 2021-0 Yes [id number] TAKE 1 [facility] [place] 500 mg 6-16 CAPSULE BY ity of capsule 00:00: MOUTH TWICE A [facility] DAY [facility] ACETAZOLAMI 2021-0 Yes [id number] TAKE 1 [facility] [place] 500 mg 6-16 CAPSULE BY ity of capsule 00:00: MOUTH TWICE A [facility] DAY [facility] ACETAZOLAMI 2021-0 Yes [id number] TAKE 1 [facility] [place] 500 mg 6-16 CAPSULE BY ity of capsule 00:00: MOUTH TWICE A [facility] DAY [facility] ACETAZOLAMI 2021-0 Yes [id number] TAKE 1 [facility] [place] 500 mg 6-16 CAPSULE BY ity of capsule 00:00: MOUTH TWICE A [facility] DAY [facility] ACETAZOLAMI 2021-0 Yes [id number] TAKE 1 [facility] [place] 500 mg 6-16 CAPSULE BY ity of capsule 00:00: MOUTH TWICE A [facility] DAY [facility] ACETAZOLAMI 2021-0 Yes [id number] TAKE 1 [facility] [place] 500 mg 6-16 CAPSULE BY ity of capsule 00:00: MOUTH 00 TWICE A [facility] DAY [facility] ACETAZOLAMI 2021-0 Yes [id number] TAKE 1 [facility] [place] 500 mg 6-16 CAPSULE BY ity of capsule 00:00: MOUTH TWICE A [facility] DAY [facility] ACETAZOLAMI 2021-0 Yes [id number] TAKE 1 [facility] [place] 500 mg 6-16 CAPSULE BY ity of capsule 00:00: MOUTH 00 TWICE A [facility] DAY [facility] ACETAZOLAMI 2021-0 Yes [id number] TAKE 1 [facility] [place] 500 mg 6-16 CAPSULE BY ity of capsule 00:00: MOUTH 00 TWICE A [facility] DAY [facility] ACETAZOLAMI 2021-0 Yes [id number] TAKE 1 [facility] [place] 500 mg 6-16 CAPSULE BY ity of capsule 00:00: MOUTH 00 TWICE A [facility] DAY [facility] ACETAZOLAMI 2021-0 Yes [id number] TAKE 1 [facility] [place] 500 mg 6-16 CAPSULE BY ity of capsule 00:00: MOUTH 00 TWICE A [facility] DAY [facility] ACETAZOLAMI 2021-0 Yes [id number] TAKE 1 [facility] [place] 500 mg 6-16 CAPSULE BY ity of capsule 00:00: MOUTH 00 TWICE A [facility] DAY [facility] ACETAZOLAMI 2021-0 Yes [id number] TAKE 1 [facility] [place] 500 mg 6-16 CAPSULE BY ity of capsule 00:00: MOUTH 00 TWICE A [facility] DAY [facility] ACETAZOLAMI 2021-0 Yes [id number] TAKE 1 [facility] [place] 500 mg 6-16 CAPSULE BY ity of capsule 00:00: MOUTH TWICE A [facility] DAY [facility] ACETAZOLAMI 2021-0 Yes [id number] TAKE 1 [facility] [place] 500 mg 6-16 CAPSULE BY ity of capsule 00:00: MOUTH TWICE A [facility] DAY [facility] ACETAZOLAMI 2021-0 Yes [id number] TAKE 1 [facility] [place] 500 mg 6-16 CAPSULE BY ity of capsule 00:00: MOUTH TWICE A [facility] DAY [facility] ACETAZOLAMI 2021-0 Yes [id number] TAKE 1 [facility] [place] 500 mg 6-16 CAPSULE BY ity of capsule 00:00: MOUTH TWICE A [facility] DAY [facility] ACETAZOLAMI 2021-0 Yes [id number] TAKE 1 [facility] [place] 500 mg 6-16 CAPSULE BY ity of capsule 00:00: MOUTH TWICE A [facility] DAY [facility] ACETAZOLAMI 2021-0 Yes [id number] TAKE 1 [facility] [place] 500 mg 6-16 CAPSULE BY ity of capsule 00:00: MOUTH 00 TWICE A [facility] DAY [facility] ACETAZOLAMI 2021-0 Yes [id number] TAKE 1 [facility] [place] 500 mg 6-16 CAPSULE BY ity of capsule 00:00: MOUTH 00 TWICE A [facility] DAY [facility] ACETAZOLAMI 2021-0 Yes [id number] TAKE 1 [facility] [place] 500 mg 6-16 CAPSULE BY ity of capsule 00:00: MOUTH 00 TWICE A [facility] DAY [facility] ACETAZOLAMI 2021-0 Yes [id number] TAKE 1 [facility] [place] 500 mg 6-16 CAPSULE BY ity of capsule 00:00: MOUTH 00 TWICE A [facility] DAY [facility] ACETAZOLAMI 2021-0 Yes [id number] TAKE 1 [facility] [place] 500 mg 6-16 CAPSULE BY ity of capsule 00:00: MOUTH 00 TWICE A [facility] DAY [facility] ACETAZOLAMI 2021-0 Yes [id number] TAKE 1 [facility] [place] 500 mg 6-16 CAPSULE BY ity of capsule 00:00: MOUTH 00 TWICE A [facility] DAY [facility] ACETAZOLAMI 2021-0 Yes [id number] TAKE 1 [facility] [place] 500 mg 6-16 CAPSULE BY ity of capsule 00:00: MOUTH [place] 00 TWICE A [facility] DAY Branch ACETAZOLAMI 2021-0 Yes [id number] TAKE 1 [facility] [place] 500 mg 6-16 CAPSULE BY ity of capsule 00:00: MOUTH TWICE A [facility] DAY [facility] ACETAZOLAMI 2021-0 Yes [id number] TAKE 1 [facility] [place] 500 mg 6-16 CAPSULE BY ity of capsule 00:00: MOUTH TWICE A [facility] DAY [facility] ACETAZOLAMI 2021-0 Yes [id number] TAKE 1 [facility] [place] 500 mg 6-16 CAPSULE BY ity of capsule 00:00: MOUTH TWICE A [facility] DAY [facility] ACETAZOLAMI 2021-0 Yes [id number] TAKE 1 [facility] [place] 500 mg 6-16 CAPSULE BY ity of capsule 00:00: MOUTH TWICE A [facility] DAY [facility] ACETAZOLAMI 2021-0 Yes [id number] TAKE 1 [facility] [place] 500 mg 6-16 CAPSULE BY ity of capsule 00:00: MOUTH TWICE A [facility] DAY [facility] ACETAZOLAMI 2021-0 Yes [id number] TAKE 1 [facility] [place] 500 mg 6-16 CAPSULE BY ity of capsule 00:00: MOUTH TWICE A [facility] DAY [facility] ACETAZOLAMI 2021-0 Yes [id number] TAKE 1 [facility] [place] 500 mg 6-16 CAPSULE BY ity of capsule 00:00: MOUTH TWICE A [facility] DAY [facility] ACETAZOLAMI 2021-0 Yes [id number] TAKE 1 [facility] [place] 500 mg 6-16 CAPSULE BY ity of capsule 00:00: MOUTH TWICE A [facility] DAY [facility] ACETAZOLAMI 2021-0 Yes [id number] TAKE 1 [facility] [place] 500 mg 6-16 CAPSULE BY ity of capsule 00:00: MOUTH TWICE A [facility] DAY [facility] ACETAZOLAMI 2021-0 Yes [id number] TAKE 1 [facility] [place] 500 mg 6-16 CAPSULE BY ity of capsule 00:00: MOUTH 00 TWICE A [facility] DAY [facility] ACETAZOLAMI 2021-0 Yes [id number] TAKE 1 [facility] [place] 500 mg 6-16 CAPSULE BY ity of capsule 00:00: MOUTH 00 TWICE A [facility] DAY [facility] ACETAZOLAMI 2021-0 Yes [id number] TAKE 1 [facility] [place] 500 mg 6-16 CAPSULE BY ity of capsule 00:00: MOUTH 00 TWICE A [facility] DAY [facility] ACETAZOLAMI 2021-0 Yes [id number] TAKE 1 [facility] [place] 500 mg 6-16 CAPSULE BY ity of capsule 00:00: MOUTH 00 TWICE A [facility] DAY [facility] ACETAZOLAMI 2021-0 Yes [id number] TAKE 1 [facility] [place] 500 mg 6-16 CAPSULE BY ity of capsule 00:00: MOUTH TWICE A [facility] DAY [facility] ACETAZOLAMI 2021-0 Yes [id number] TAKE 1 [facility] [place] 500 mg 6-16 CAPSULE BY ity of capsule 00:00: MOUTH TWICE A [facility] DAY [facility] ACETAZOLAMI 2021-0 Yes [id number] TAKE 1 [facility] [place] 500 mg 6-16 CAPSULE BY ity of capsule 00:00: MOUTH TWICE A [facility] DAY [facility] ACETAZOLAMI 2021-0 Yes [id number] TAKE 1 [facility] [place] 500 mg 6-16 CAPSULE BY ity of capsule 00:00: MOUTH TWICE A [facility] DAY [facility] ACETAZOLAMI 2021-0 Yes [id number] TAKE 1 [facility] [place] 500 mg 6-16 CAPSULE BY ity of capsule 00:00: MOUTH TWICE A [facility] DAY [facility] ACETAZOLAMI 2021-0 Yes [id number] TAKE 1 [facility] [place] 500 mg 6-16 CAPSULE BY ity of capsule 00:00: MOUTH TWICE A [facility] DAY [facility] ACETAZOLAMI 2021-0 Yes [id number] TAKE 1 [facility] [place] 500 mg 6-16 CAPSULE BY ity of capsule 00:00: MOUTH TWICE A [facility] DAY [facility] ACETAZOLAMI 2021-0 Yes [id number] TAKE 1 [facility] [place] 500 mg 6-16 CAPSULE BY it[facility] of capsule 00:00: MOUTH TWICE A [facility] DAY [facility] ACETAZOLAMI 2021-0 Yes [id number] TAKE 1 [facility] [place] 500 mg 6-16 CAPSULE BY it[facility] of capsule 00:00: MOUTH TWICE A [facility] DAY [facility] ACETAZOLAMI 2021-0 Yes [id number] TAKE 1 [facility] [place] 500 mg 6-16 CAPSULE BY it[facility] of capsule 00:00: MOUTH TWICE A [facility] DAY [facility] ACETAZOLAMI 2021-0 Yes [id number] TAKE 1 [facility] [place] 500 mg 6-16 CAPSULE BY ity of capsule 00:00: MOUTH TWICE A [facility] DAY [facility] ACETAZOLAMI 2021-0 Yes [id number] TAKE 1 [facility] [place] 500 mg 6-16 CAPSULE BY ity of capsule 00:00: MOUTH TWICE A [facility] DAY [facility] ACETAZOLAMI 2021-0 Yes [id number] TAKE 1 [facility] [place] 500 mg 6-16 CAPSULE BY ity of capsule 00:00: MOUTH TWICE A [facility] DAY [facility] ACETAZOLAMI 2021-0 Yes [id number] TAKE 1 [facility] [place] 500 mg 6-16 CAPSULE BY ity of capsule 00:00: MOUTH [place] 00 TWICE A [facility] DAY [facility] ACETAZOLAMI 2021-0 Yes [id number] TAKE 1 [facility] [place] 500 mg 6-16 CAPSULE BY ity of capsule 00:00: MOUTH 00 TWICE A [facility] DAY [facility] ACETAZOLAMI 2021-0 Yes [id number] TAKE 1 [facility] [place] 500 mg 6-16 CAPSULE BY ity of capsule 00:00: MOUTH TWICE A [facility] DAY [facility] ACETAZOLAMI 2021-0 Yes [id number] TAKE 1 [facility] [place] 500 mg 6-16 CAPSULE BY ity of capsule 00:00: MOUTH 00 TWICE A [facility] DAY [facility] ACETAZOLAMI 2021-0 Yes [id number] TAKE 1 [facility] [place] 500 mg 6-16 CAPSULE BY ity of capsule 00:00: MOUTH TWICE A [facility] DAY [facility] ACETAZOLAMI 2020-0 Yes [id number] TAKE 1 [facility] [place] 500 mg 6-16 CAPSULE BY ity of capsule 00:00: MOUTH TWICE A [facility] DAY [facility] ACETAZOLAMI 2021-0 Yes [id number] TAKE 1 [facility] [place] 500 mg 6-16 CAPSULE BY it[facility] of capsule 00:00: MOUTH 00 TWICE A [facility] DAY Branch ACETAZOLAMI 1-0 Yes [id number] TAKE 1 [facility]-16 CAPSULE BY [facility] 00:00: MOUTH 00 TWICE [facility] ACETAZOLAMI 2021-0 Yes [id number] TAKE 1 [facility] [place] [facility] 6-16 CAPSULE BY [facility] 00:00: MOUTH 00 TWICE [facility] ACETAZOLAMI 2021-0 Yes [id number] TAKE 1 [facility] [place] [facility] 6-16 CAPSULE BY [facility] 00:00: MOUTH [place] 00 TWICE [facility] ACETAZOLAMI 2021-0 Yes [id number] TAKE 1 [facility] [place] [facility] 6-16 CAPSULE BY [facility] 00:00: MOUTH 00 TWICE [facility] ACETAZOLAMI 2021-0 Yes [id number] TAKE 1 [facility] [place] [facility] 6-16 CAPSULE BY [facility] 00:00: MOUTH 00 TWICE [facility] ACETAZOLAMI 2021-0 Yes [id number] TAKE 1 [facility] [place] [facility] 6-16 CAPSULE BY [facility] 00:00: MOUTH [place] 00 TWICE A [facility] ACETAZOLAMI 2021-0 Yes [id number] TAKE 1 [facility] [place] [facility] 6-16 CAPSULE BY [facility] 00:00: MOUTH TWICE [facility] ACETAZOLAMI 2021-0 Yes [id number] TAKE 1 [facility] [place] [facility] 6-16 CAPSULE BY [facility] 00:00: MOUTH TWICE [facility] ACETAZOLAMI 2021-0 Yes [id number] TAKE 1 [facility] [place] [facility] 6-16 CAPSULE BY [facility] 00:00: MOUTH TWICE [facility] ACETAZOLAMI 2021-0 Yes [id number] TAKE 1 [facility] [place] [facility] 6-16 CAPSULE BY [facility] 00:00: MOUTH TWICE [facility] ACETAZOLAMI 202-0 Yes [id number] TAKE 1 [facility] [place] [facility] 6-16 CAPSULE BY [facility] 00:00: MOUTH TWICE [facility] ACETAZOLAMI 2020-0 Yes [id number] TAKE 1 [facility] [place] [facility] 6-16 CAPSULE BY [facility] 00:00: MOUTH TWICE [facility] ACETAZOLAMI 202-0 Yes [id number] TAKE 1 [facility] [place] [facility] 6-16 CAPSULE BY [facility] 00:00: MOUTH TWICE [facility] ACETAZOLAMI 2021-0 Yes [id number] TAKE 1 [facility] [place] [facility] 6-16 CAPSULE BY [facility] 00:00: MOUTH TWICE [facility] ACETAZOLAMI 2021-0 Yes [id number] TAKE 1 [facility] [place] [facility] 6-16 CAPSULE BY [facility] 00:00: MOUTH TWICE [facility] ACETAZOLAMI 2021-0 Yes [id number] TAKE 1 [facility] [place] [facility] 6-16 CAPSULE BY [facility] 00:00: MOUTH 00 TWICE [facility] ACETAZOLAMI 2021-0 Yes [id number] TAKE 1 [facility] [place] [facility] 6-16 CAPSULE BY [facility] 00:00: MOUTH TWICE [facility] ACETAZOLAMI 2021-0 Yes [id number] TAKE 1 [facility] [place] [facility] 6-16 CAPSULE BY [facility] capsule 00:00: MOUTH 00 TWICE [facility] ACETAZOLAMI 2021-0 Yes [id number] TAKE 1 [facility] [place] [facility] 6-16 CAPSULE BY [facility] 00:00: MOUTH TWICE [facility] ACETAZOLAMI 2021-0 Yes [id number] TAKE 1 [facility] [place] [facility] 6-16 CAPSULE BY [facility] capsule 00:00: MOUTH [place] 00 TWICE A [facility] ACETAZOLAMI 2021-0 Yes [id number] TAKE 1 [facility] [place] [facility] 6-16 CAPSULE BY [facility] 00:00: MOUTH [place] 00 TWICE A [facility] ACETAZOLAMI 2021-0 Yes [id number] TAKE 1 [facility] [place] [facility] 6-16 CAPSULE BY [facility] 00:00: MOUTH TWICE [facility] ACETAZOLAMI 2021-0 Yes [id number] TAKE 1 [facility] [place] [facility] 6-16 CAPSULE BY [facility] 00:00: MOUTH 00 TWICE [facility] ACETAZOLAMI 2021-0 Yes [id number] TAKE 1 [facility] [place] [facility] 6-16 CAPSULE BY [facility] 00:00: MOUTH 00 TWICE [facility] ACETAZOLAMI 2021-0 Yes [id number] TAKE 1 [facility] [place] [facility] 6-16 CAPSULE BY [facility] 00:00: MOUTH TWICE [facility] ACETAZOLAMI 2021-0 Yes [id number] TAKE 1 [facility] [place] [facility] 6-16 CAPSULE BY [facility] capsule 00:00: MOUTH [place] 00 TWICE A [facility] ACETAZOLAMI 2021-0 Yes [id number] TAKE 1 [facility] [place] [facility] 6-16 CAPSULE BY [facility] 00:00: MOUTH 00 TWICE [facility] ACETAZOLAMI 2021-0 Yes [id number] TAKE 1 [facility] [place] [facility] 6-16 CAPSULE BY [facility] capsule 00:00: MOUTH 00 TWICE [facility] ACETAZOLAMI 2021-0 Yes [id number] TAKE 1 [facility] [place] [facility] 6-16 CAPSULE BY [facility] 00:00: MOUTH 00 TWICE [facility] ACETAZOLAMI 2021-0 Yes [id number] TAKE 1 [facility] [place] [facility] 6-16 CAPSULE BY [facility] 00:00: MOUTH [place] 00 TWICE A [facility] ACETAZOLAMI 2021-0 Yes [id number] TAKE 1 [facility] [place] [facility] 6-16 CAPSULE BY [facility] 00:00: MOUTH [place] 00 TWICE A [facility] ACETAZOLAMI 2021-0 Yes [id number] TAKE 1 [facility] [place] [facility] 6-16 CAPSULE BY [facility] capsule 00:00: MOUTH [place] 00 TWICE A [facility] ACETAZOLAMI 2021-0 Yes [id number] TAKE 1 [facility] [place] [facility] 6-16 CAPSULE BY [facility] 00:00: MOUTH 00 TWICE [facility] ACETAZOLAMI 2021-0 Yes [id number] TAKE 1 [facility] [place] [facility] 6-16 CAPSULE BY [facility] 00:00: MOUTH 00 TWICE [facility] ACETAZOLAMI 2021-0 Yes [id number] TAKE 1 [facility] [place] [facility] 6-16 CAPSULE BY [facility] 00:00: MOUTH TWICE [facility] ACETAZOLAMI 2021-0 Yes [id number] TAKE 1 [facility] [place] [facility] 6-16 CAPSULE BY [facility] capsule 00:00: MOUTH TWICE [facility] ACETAZOLAMI 2021-0 Yes [id number] TAKE 1 [facility] [place] [facility] 6-16 CAPSULE BY [facility] capsule 00:00: MOUTH TWICE [facility] ACETAZOLAMI 2021-0 Yes [id number] TAKE 1 [facility] [place] [facility] 6-16 CAPSULE BY [facility] 00:00: MOUTH TWICE [facility] ACETAZOLAMI 2021-0 Yes [id number] TAKE 1 [facility] [place] [facility] 6-16 CAPSULE BY [facility] 00:00: MOUTH TWICE [facility] ACETAZOLAMI 2021-0 Yes [id number] TAKE 1 [facility] [place] [facility] 6-16 CAPSULE BY [facility] 00:00: MOUTH TWICE [facility] ACETAZOLAMI 2021-0 Yes [id number] TAKE 1 [facility] [place] [facility] 6-16 CAPSULE BY [facility] 00:00: MOUTH TWICE [facility] ACETAZOLAMI 2021-0 Yes [id number] TAKE 1 [facility] [place] [facility] 6-16 CAPSULE BY [facility] 00:00: MOUTH TWICE [facility] ACETAZOLAMI 2021-0 Yes [id number] TAKE 1 [facility] [place] [facility] 6-16 CAPSULE BY [facility] 00:00: MOUTH 00 TWICE [facility] ACETAZOLAMI 2021-0 Yes [id number] TAKE 1 [facility] [place] [facility] 6-16 CAPSULE BY [facility] 00:00: MOUTH 00 TWICE [facility] ACETAZOLAMI 2021-0 Yes [id number] TAKE 1 [facility] [place] [facility] 6-16 CAPSULE BY [facility] 00:00: MOUTH 00 TWICE [facility] ACETAZOLAMI 2021-0 Yes [id number] TAKE 1 [facility] [place] 500 [facility] 6-16 CAPSULE BY [facility] 00:00: MOUTH 00 TWICE [facility] ACETAZOLAMI 2021-0 Yes [id number] TAKE 1 [facility] [place] [facility] 6-16 CAPSULE BY [facility] 00:00: MOUTH 00 TWICE [facility] ACETAZOLAMI 2021-0 Yes [id number] TAKE 1 [facility] [place] [facility] 6-16 CAPSULE BY [facility] 00:00: MOUTH TWICE [facility] ACETAZOLAMI 2021-0 Yes [id number] TAKE 1 [facility] [place] 500 [facility] 6-16 CAPSULE BY [facility] 00:00: MOUTH TWICE [facility] ACETAZOLAMI 2021-0 Yes [id number] TAKE 1 [facility] [place] 500 [facility] 6-16 CAPSULE BY [facility] 00:00: MOUTH 00 TWICE [facility] ACETAZOLAMI 2021-0 Yes [id number] TAKE 1 [facility] [place] [facility] 6-16 CAPSULE BY [facility] 00:00: MOUTH TWICE [facility] ACETAZOLAMI 2021-0 Yes [id number] TAKE 1 [facility] [place] [facility] 6-16 CAPSULE BY [facility] 00:00: MOUTH TWICE [facility] ACETAZOLAMI 2021-0 Yes [id number] TAKE 1 [facility] [place] [facility] 6-16 CAPSULE BY [facility] 00:00: MOUTH 00 TWICE [facility] ACETAZOLAMI 2021-0 Yes [id number] TAKE 1 [facility] [place] [facility] 6-16 CAPSULE BY [facility] 00:00: MOUTH 00 TWICE [facility] ACETAZOLAMI 2021-0 Yes [id number] TAKE 1 [facility] [place] [facility] 6-16 CAPSULE BY [facility] 00:00: MOUTH 00 TWICE [facility] ACETAZOLAMI 2021-0 Yes [id number] TAKE 1 [facility] [place] [facility] 6-16 CAPSULE BY [facility] capsule 00:00: MOUTH 00 TWICE [facility] ACETAZOLAMI 2021-0 Yes [id number] TAKE 1 [facility] [place] [facility] 6-16 CAPSULE BY [facility] capsule 00:00: MOUTH 00 TWICE [facility] ACETAZOLAMI 2021-0 Yes [id number] TAKE 1 [facility] [place] [facility] 6-16 CAPSULE BY [facility] 00:00: MOUTH 00 TWICE [facility] ACETAZOLAMI 2021-0 Yes [id number] TAKE 1 [facility] [place] [facility] 6-16 CAPSULE BY [facility] 00:00: MOUTH [place] 00 TWICE A [facility] ACETAZOLAMI 2021-0 Yes [id number] TAKE 1 [facility] 6-16 CAPSULE BY [facility] 00:00: MOUTH TWICE [facility] ACETAZOLAMI 2021-0 Yes [id number] TAKE 1 [facility] 500 [facility] 6-16 CAPSULE BY [facility] capsule 00:00: MOUTH TWICE [facility] ACETAZOLAMI 2021-0 Yes [id number] TAKE 1 [facility] [place] 500 [facility] 6-16 CAPSULE BY [facility] capsule 00:00: MOUTH TWICE [facility] ACETAZOLAMI 2021-0 Yes [id number] TAKE 1 [facility] [place] 500 [facility] 6-16 CAPSULE BY [facility] 00:00: MOUTH TWICE [facility] ACETAZOLAMI 202-0 Yes [id number] TAKE 1 [facility] [place] 500 [facility] 6-16 CAPSULE BY [facility] 00:00: MOUTH TWICE [facility] ACETAZOLAMI 2021-0 Yes [id number] TAKE 1 [facility] [place] 500 [facility] 6-16 CAPSULE BY [facility] capsule 00:00: MOUTH TWICE [facility] ACETAZOLAMI 2021-0 Yes [id number] TAKE 1 [facility] 500 [facility] 6-16 CAPSULE BY [facility] capsule 00:00: MOUTH TWICE [facility] ACETAZOLAMI 2021-0 Yes [id number] TAKE 1 [facility] [place] 500 [facility] 6-16 CAPSULE BY [facility] capsule 00:00: MOUTH TWICE [facility] ACETAZOLAMI 2021-0 Yes [id number] TAKE 1 [facility] [place] 500 [facility] 6-16 CAPSULE BY [facility] capsule 00:00: MOUTH TWICE [facility] ACETAZOLAMI 2021-0 Yes [id number] TAKE 1 [facility] [place] 500 [facility] 6-16 CAPSULE BY [facility] capsule 00:00: MOUTH TWICE [facility] ACETAZOLAMI 2021-0 Yes [id number] TAKE 1 [facility] [place] 500 [facility] 6-16 CAPSULE BY [facility] capsule 00:00: MOUTH TWICE [facility] ACETAZOLAMI 2021-0 Yes [id number] TAKE 1 [facility] [place] 500 [facility] 6-16 CAPSULE BY [facility] capsule 00:00: MOUTH TWICE [facility] ACETAZOLAMI 2021-0 Yes [id number] TAKE 1 [facility] [place] 500 [facility] 6-16 CAPSULE BY [facility] 00:00: MOUTH TWICE [facility] ACETAZOLAMI 2021-0 Yes [id number] TAKE 1 [facility] [place] 500 [facility] 6-16 CAPSULE BY [facility] capsule 00:00: MOUTH [place] 00 TWICE A [facility] ACETAZOLAMI 2021-0 Yes [id number] TAKE 1 [facility] 500 [facility] 6-16 CAPSULE BY [facility] capsule 00:00: MOUTH 00 TWICE [facility] ACETAZOLAMI 2021-0 Yes [id number] TAKE 1 [facility] [place] 500 [facility] 6-16 CAPSULE BY [facility] capsule 00:00: MOUTH 00 TWICE [facility] ACETAZOLAMI 2021-0 Yes [id number] TAKE 1 [facility] 500 [facility] 6-16 CAPSULE BY [facility] capsule 00:00: MOUTH 00 TWICE [facility] ACETAZOLAMI 2021-0 Yes [id number] TAKE 1 [facility] 500 [facility] 6-16 CAPSULE BY [facility] capsule 00:00: MOUTH 00 TWICE [facility] ACETAZOLAMI 202-0 Yes [id number] TAKE 1 [facility] 500 [facility] 6-16 CAPSULE BY [facility] capsule 00:00: MOUTH TWICE [facility] ACETAZOLAMI 2021-0 Yes [id number] TAKE 1 [facility] [place] 500 [facility] 6-16 CAPSULE BY [facility] capsule 00:00: MOUTH 00 TWICE [facility] ACETAZOLAMI 2021-0 Yes [id number] TAKE 1 [facility] [place] 500 [facility] 6-16 CAPSULE BY [facility] capsule 00:00: MOUTH 00 TWICE [facility] ACETAZOLAMI 2021-0 Yes [id number] TAKE 1 [facility] [place] 500 [facility] 6-16 CAPSULE BY [facility] capsule 00:00: MOUTH 00 TWICE [facility] ACETAZOLAMI 2021-0 Yes [id number] TAKE 1 [facility] [place] 500 [facility] 6-16 CAPSULE BY [facility] capsule 00:00: MOUTH 00 TWICE [facility] ACETAZOLAMI 2021-0 Yes [id number] TAKE 1 [facility] [place] 500 [facility] 6-16 CAPSULE BY [facility] capsule 00:00: MOUTH 00 TWICE [facility] ACETAZOLAMI 2021-0 Yes [id number] TAKE 1 [facility] [place] 500 [facility] 6-16 CAPSULE BY [facility] capsule 00:00: MOUTH 00 TWICE [facility] ACETAZOLAMI 2021-0 Yes [id number] TAKE 1 [facility] 500 [facility] 6-16 CAPSULE BY [facility] capsule 00:00: MOUTH [place] 00 TWICE A [facility] ACETAZOLAMI 2021-0 Yes [id number] TAKE 1 [facility] 500 [facility] 6-16 CAPSULE BY [facility] capsule 00:00: MOUTH 00 TWICE [facility] ACETAZOLAMI 2021-0 Yes [id number] TAKE 1 [facility] 500 [facility] 6-16 CAPSULE BY [facility] capsule 00:00: MOUTH TWICE [facility] ACETAZOLAMI 2021-0 Yes [id number] TAKE 1 [facility] 500 [facility] 6-16 CAPSULE BY [facility] capsule 00:00: MOUTH TWICE [facility] ACETAZOLAMI 2021-0 Yes [id number] TAKE 1 [facility] 500 [facility] 6-16 CAPSULE BY [facility] capsule 00:00: MOUTH TWICE [facility] ACETAZOLAMI 202-0 Yes [id number] TAKE 1 [facility] 500 [facility] 6-16 CAPSULE BY [facility] capsule 00:00: MOUTH TWICE [facility] ACETAZOLAMI 2020-0 Yes [id number] TAKE 1 [facility] 500 [facility] 6-16 CAPSULE BY [facility] capsule 00:00: MOUTH TWICE [facility] ACETAZOLAMI 202-0 Yes [id number] TAKE 1 [facility] [place] 500 [facility] 6-16 CAPSULE BY [facility] capsule 00:00: MOUTH TWICE [facility] ACETAZOLAMI 2021-0 Yes [id number] TAKE 1 [facility] 500 [facility] 6-16 CAPSULE BY [facility] capsule 00:00: MOUTH TWICE [facility] ACETAZOLAMI 2020-0 Yes [id number] TAKE 1 [facility] 500 [facility] 6-16 CAPSULE BY [facility] capsule 00:00: MOUTH TWICE [facility] ACETAZOLAMI 2021-0 Yes [id number] TAKE 1 [facility] 500 [facility] 6-16 CAPSULE BY [facility] capsule 00:00: MOUTH 00 TWICE [facility] ACETAZOLAMI 2021-0 Yes [id number] TAKE 1 [facility] 500 [facility] 6-16 CAPSULE BY [facility] capsule 00:00: MOUTH 00 TWICE [facility] ACETAZOLAMI 2021-0 Yes [id number] TAKE 1 [facility] 500 [facility] 6-16 CAPSULE BY [facility] capsule 00:00: MOUTH 00 TWICE [facility] ACETAZOLAMI 2021-0 Yes [id number] TAKE 1 [facility] 500 [facility] 6-16 CAPSULE BY [facility] capsule 00:00: MOUTH 00 TWICE [facility] ACETAZOLAMI 2021-0 Yes [id number] TAKE 1 [facility] 500 [facility] 6-16 CAPSULE BY [facility] capsule 00:00: MOUTH [place] 00 TWICE A [facility] ACETAZOLAMI 2021-0 Yes [id number] TAKE 1 [facility] 500 [facility] 6-16 CAPSULE BY [facility] capsule 00:00: MOUTH [place] 00 TWICE A [facility] ACETAZOLAMI 2021-0 Yes [id number] TAKE 1 [facility] 500 [facility] 6-16 CAPSULE BY [facility] capsule 00:00: MOUTH [place] 00 TWICE A [facility] ACETAZOLAMI 2021-0 Yes [id number] TAKE 1 [facility] 500 [facility] 6-16 CAPSULE BY [facility] capsule 00:00: MOUTH [place] 00 TWICE A [facility] DAY [facility] levothyroxi 2021-0 Yes TAKE 1 [facility] 4-08 TABLET BY [facility] (SYNTHROID) 00:00: MOUTH of 88 MCG 00 EVERY Medic[facility] tablet MORNING e WITH 100MCG TABLET levothyroxi 2020-0 Yes TAKE 1 [facility] 4-08 TABLET BY [place] (SYNTHROID) 00:00: MOUTH of 88 MCG 00 EVERY Medic[facility] tablet MORNING e WITH 100MCG TABLET LEVOTHYROXI 2021-0 Yes [id number] TAKE 1 [facility] [place] [facility]cg 4-08 TABLET BY [facility] o f tablet 00:00: MOUTH [place] 00 EVERY [facility] MORNING [facility] WITH 100MCG TABLET LEVOTHYROXI 2021-0 Yes [id number] TAKE 1 [facility] [place] [facility] mcg 4-08 TABLET BY [facility] f tablet 00:00: MOUTH [place] 00 EVERY [facility] MORNING [facility] WITH 100MCG TABLET LEVOTHYROXI 1-0 Yes [id number] TAKE 1 [facility] [place] 88 mcg 4-08 TABLET BY [facility] f tablet 00:00: MOUTH [place] 00 EVERY [facility] MORNING [facility] WITH 100MCG TABLET LEVOTHYROXI 2021-0 Yes [id number] TAKE 1 [facility] [place] 88 mcg 4-08 TABLET BY [facility] o f tablet 00:00: MOUTH [place] 00 EVERY [facility] MORNING [facility] WITH 100MCG TABLET LEVOTHYROXI 2021-0 Yes [id number] TAKE 1 [facility] [place] 88 mcg 4-08 TABLET BY [facility] o f tablet 00:00: MOUTH [place] 00 EVERY Medical MORNING [facility] WITH 100MCG TABLET LEVOTHYROXI 2021-0 Yes [id number] TAKE 1 [facility] [place] 88 mcg 4-08 TABLET BY [facility] o f tablet 00:00: MOUTH [place] 00 EVERY [facility] MORNING [facility] WITH 100MCG TABLET LEVOTHYROXI 2021-0 Yes [id number] TAKE 1 [facility] [place] 88 mcg 4-08 TABLET BY [facility] o f tablet 00:00: MOUTH [place] 00 EVERY [facility] MORNING [facility] WITH 100MCG TABLET LEVOTHYROXI 2021-0 Yes [id number] TAKE 1 [facility] [place] 88 mcg 4-08 TABLET BY [facility] o f tablet 00:00: MOUTH [place] 00 EVERY [facility] MORNING [facility] WITH 100MCG TABLET LEVOTHYROXI 2021-0 Yes [id number] TAKE 1 [facility] [place] 88 mcg 4-08 TABLET BY [facility] o f tablet 00:00: MOUTH [place] 00 EVERY [facility] MORNING [facility] WITH 100MCG TABLET LEVOTHYROXI 2021-0 Yes [id number] TAKE 1 [facility] [place] 88 mcg 4-08 TABLET BY [facility] o f tablet 00:00: MOUTH [place] 00 EVERY [facility] MORNING [facility] WITH 100MCG TABLET LEVOTHYROXI 2021-0 Yes [id number] TAKE 1 [facility] [place] [facility] mcg 4-08 TABLET BY [facility] o f tablet 00:00: MOUTH [place] 00 EVERY [facility] MORNING [facility] WITH 100MCG TABLET LEVOTHYROXI 2021-0 Yes [id number] TAKE 1 [facility] [place] 88 mcg 4-08 TABLET BY [facility] o f tablet 00:00: MOUTH [place] 00 EVERY Medical MORNING [facility] WITH 100MCG TABLET LEVOTHYROXI 2021-0 Yes [id number] TAKE 1 [facility] [place] 88 mcg 4-08 TABLET BY [facility] o f tablet 00:00: MOUTH [place] 00 EVERY Medical MORNING [facility] WITH 100MCG TABLET LEVOTHYROXI 2021-0 Yes [id number] TAKE 1 [facility] [place] 88 mcg 4-08 TABLET BY [facility] o f tablet 00:00: MOUTH [place] 00 EVERY Medical MORNING [facility] WITH 100MCG TABLET LEVOTHYROXI 2021-0 Yes [id number] TAKE 1 [facility] [place] 88 mcg 4-08 TABLET BY [facility] o f tablet 00:00: MOUTH [place] 00 EVERY Medical MORNING [facility] WITH 100MCG TABLET LEVOTHYROXI 2021-0 Yes [id number] TAKE 1 [facility] [place] 88 mcg 4-08 TABLET BY [facility] o f tablet 00:00: MOUTH [place] 00 EVERY Medical MORNING Branch WITH 100MCG TABLET LEVOTHYROXI 2021-0 Yes [id number] TAKE 1 [facility] 88 mcg 4-08 TABLET BY [facility] o f tablet 00:00: MOUTH [place] 00 EVERY Medical MORNING [facility] WITH 100MCG TABLET LEVOTHYROXI 2021-0 Yes [id number] TAKE 1 [facility] 88 mcg 4-08 TABLET BY [facility] o f tablet 00:00: MOUTH [place] 00 EVERY Medical MORNING [facility] WITH 100MCG TABLET LEVOTHYROXI 2021-0 Yes [id number] TAKE 1 [facility] 88 mcg 4-08 TABLET BY [facility] o f tablet 00:00: MOUTH [place] 00 EVERY Medical MORNING [facility] WITH 100MCG TABLET LEVOTHYROXI 2021-0 Yes [id number] TAKE 1 [facility] 88 mcg 4-08 TABLET BY [facility] o f tablet 00:00: MOUTH [place] 00 EVERY Medical MORNING [facility] WITH 100MCG TABLET LEVOTHYROXI 2021-0 Yes [id number] TAKE 1 [facility] mcg 4-08 TABLET BY [facility] o f tablet 00:00: MOUTH [place] 00 EVERY Medical MORNING [facility] WITH 100MCG TABLET LEVOTHYROXI 2021-0 Yes [id number] TAKE 1 [facility] 88 mcg 4-08 TABLET BY [facility] o f tablet 00:00: MOUTH [place] 00 EVERY [facility] MORNING [facility] WITH 100MCG TABLET LEVOTHYROXI 2021-0 Yes [id number] TAKE 1 [facility] [place] [facility] mcg 4-08 TABLET BY [facility] o f tablet 00:00: MOUTH [place] 00 EVERY [facility] MORNING [facility] WITH 100MCG TABLET LEVOTHYROXI 2021-0 Yes [id number] TAKE 1 [facility] mcg 4-08 TABLET BY [facility] o f tablet 00:00: MOUTH [place] 00 EVERY [facility] MORNING [facility] WITH 100MCG TABLET LEVOTHYROXI 2021-0 Yes [id number] TAKE 1 [facility] mcg 4-08 TABLET BY [facility] o f tablet 00:00: MOUTH [place] 00 EVERY Medical MORNING [facility] WITH 100MCG TABLET LEVOTHYROXI 2021-0 Yes [id number] TAKE 1 [facility] mcg 4-08 TABLET BY [facility] o f tablet 00:00: MOUTH [place] 00 EVERY Medical MORNING [facility] WITH 100MCG TABLET LEVOTHYROXI 2021-0 Yes [id number] TAKE 1 [facility] mcg 4-08 TABLET BY [facility] o f tablet 00:00: MOUTH [place] 00 EVERY Medical MORNING Branch WITH 100MCG TABLET LEVOTHYROXI 2021-0 Yes [id number] TAKE 1 [facility] mcg 4-08 TABLET BY [facility] o f tablet 00:00: MOUTH [place] 00 EVERY Medical MORNING Branch WITH 100MCG TABLET LEVOTHYROXI 2021-0 Yes [id number] TAKE 1 [facility] mcg 4-08 TABLET BY [facility] o f tablet 00:00: MOUTH [place] 00 EVERY Medical MORNING Branch WITH 100MCG TABLET LEVOTHYROXI 2021-0 Yes [id number] TAKE 1 [facility] mcg 4-08 TABLET BY [facility] o f tablet 00:00: MOUTH [place] 00 EVERY Medical MORNING Branch WITH 100MCG TABLET LEVOTHYROXI 2021-0 Yes [id number] TAKE 1 [facility] mcg 4-08 TABLET BY [facility] o f tablet 00:00: MOUTH [place] 00 EVERY Medical MORNING Branch WITH 100MCG TABLET LEVOTHYROXI 2021-0 Yes [id number] TAKE 1 [facility] mcg 4-08 TABLET BY [facility] o f tablet 00:00: MOUTH [place] 00 EVERY Medical MORNING Branch WITH 100MCG TABLET LEVOTHYROXI 2021-0 Yes [id number] TAKE 1 [facility] mcg 4-08 TABLET BY [facility] o f tablet 00:00: MOUTH [place] 00 EVERY Medical MORNING [facility] WITH 100MCG TABLET LEVOTHYROXI 2021-0 Yes [id number] TAKE 1 [facility] mcg 4-08 TABLET BY [facility] o f tablet 00:00: MOUTH [place] 00 EVERY Medical MORNING [facility] WITH 100MCG TABLET LEVOTHYROXI 2021-0 Yes [id number] TAKE 1 [facility] mcg 4-08 TABLET BY [facility] o f tablet 00:00: MOUTH [place] 00 EVERY Medical MORNING Branch WITH 100MCG TABLET LEVOTHYROXI 2021-0 Yes [id number] TAKE 1 [facility] mcg 4-08 TABLET BY [facility] o f tablet 00:00: MOUTH [place] 00 EVERY Medical MORNING Branch WITH 100MCG TABLET LEVOTHYROXI 2021-0 Yes [id number] TAKE 1 [facility] mcg 4-08 TABLET BY [facility] o f tablet 00:00: MOUTH [place] 00 EVERY Medical MORNING Branch WITH 100MCG TABLET LEVOTHYROXI 2021-0 Yes [id number] TAKE 1 [facility] mcg 4-08 TABLET BY [facility] o f tablet 00:00: MOUTH [place] 00 EVERY Medical MORNING Branch WITH 100MCG TABLET LEVOTHYROXI 2021-0 Yes [id number] TAKE 1 [facility] mcg 4-08 TABLET BY [facility] o f tablet 00:00: MOUTH [place] 00 EVERY Medical MORNING [facility] WITH 100MCG TABLET LEVOTHYROXI 2021-0 Yes [id number] TAKE 1 [facility] mcg 4-08 TABLET BY [facility] o f tablet 00:00: MOUTH [place] 00 EVERY Medical MORNING [facility] WITH 100MCG TABLET LEVOTHYROXI 2021-0 Yes [id number] TAKE 1 [facility] mcg 4-08 TABLET BY [facility] o f tablet 00:00: MOUTH [place] 00 EVERY Medical MORNING Branch WITH 100MCG TABLET LEVOTHYROXI 2021-0 Yes [id number] TAKE 1 [facility] mcg 4-08 TABLET BY [facility] o f tablet 00:00: MOUTH [place] 00 EVERY Medical MORNING Branch WITH 100MCG TABLET LEVOTHYROXI 2021-0 Yes [id number] TAKE 1 [facility] m[facility] 4-08 TABLET BY [facility] o f tablet 00:00: MOUTH [place] 00 EVERY Medical MORNING Branch WITH 100MCG TABLET LEVOTHYROXI 2021-0 Yes [id number] TAKE 1 [facility] 4-08 TABLET BY [facility] o f tablet 00:00: MOUTH [place] 00 EVERY Medical MORNING Branch WITH 100MCG TABLET LEVOTHYROXI 2021-0 Yes [id number] TAKE 1 [facility] mcg 4-08 TABLET BY [facility] o f tablet 00:00: MOUTH [place] 00 EVERY Medical MORNING Branch WITH 100MCG TABLET LEVOTHYROXI 2021-0 Yes [id number] TAKE 1 [facility] 4-08 TABLET BY [facility] o f tablet 00:00: MOUTH [place] 00 EVERY Medical MORNING Branch WITH 100MCG TABLET LEVOTHYROXI 2021-0 Yes [id number] TAKE 1 [facility] 4-08 TABLET BY [facility] o f tablet 00:00: MOUTH [place] 00 EVERY Medical MORNING Branch WITH 100MCG TABLET LEVOTHYROXI 2021-0 Yes [id number] TAKE 1 [facility] 4-08 TABLET BY [facility] o f tablet 00:00: MOUTH [place] 00 EVERY Medical MORNING Branch WITH 100MCG TABLET LEVOTHYROXI 2021-0 Yes [id number] TAKE 1 [facility] 4-08 TABLET BY [facility] o f tablet 00:00: MOUTH [place] 00 EVERY Medical MORNING Branch WITH 100MCG TABLET LEVOTHYROXI 2021-0 Yes [id number] TAKE 1 [facility] 4-08 TABLET BY [facility] o f tablet 00:00: MOUTH [place] 00 EVERY Medical MORNING Branch WITH 100MCG TABLET LEVOTHYROXI 2021-0 Yes [id number] TAKE 1 [facility] 4-08 TABLET BY [facility] o f tablet 00:00: MOUTH [place] 00 EVERY Medical MORNING Branch WITH 100MCG TABLET LEVOTHYROXI 2021-0 Yes [id number] TAKE 1 [facility] 4-08 TABLET BY [facility] o f tablet 00:00: MOUTH [place] 00 EVERY Medical MORNING Branch WITH 100MCG TABLET LEVOTHYROXI 2021-0 Yes [id number] TAKE 1 [facility] 4-08 TABLET BY [facility] o f tablet 00:00: MOUTH [place] 00 EVERY Medical MORNING [facility] WITH 100MCG TABLET LEVOTHYROXI 2021-0 Yes [id number] TAKE 1 [facility] 4-08 TABLET BY [facility] o f tablet 00:00: MOUTH [place] 00 EVERY Medical MORNING [facility] WITH 100MCG TABLET LEVOTHYROXI 2021-0 Yes [id number] TAKE 1 [facility] 4-08 TABLET BY [facility] o f tablet 00:00: MOUTH [place] 00 EVERY Medical MORNING [facility] WITH 100MCG TABLET LEVOTHYROXI 2021-0 Yes [id number] TAKE 1 [facility] 4-08 TABLET BY [facility] o f tablet 00:00: MOUTH [place] 00 EVERY Medical MORNING Branch WITH 100MCG TABLET LEVOTHYROXI 2021-0 Yes [id number] TAKE 1 [facility] 4-08 TABLET BY [facility] o f tablet 00:00: MOUTH [place] 00 EVERY Medical MORNING Branch WITH 100MCG TABLET LEVOTHYROXI 2021-0 Yes [id number] TAKE 1 [facility] 4-08 TABLET BY [facility] o f tablet 00:00: MOUTH [place] 00 EVERY Medical MORNING Branch WITH 100MCG TABLET LEVOTHYROXI 2021-0 Yes [id number] TAKE 1 [facility] 4-08 TABLET BY [facility] o f tablet 00:00: MOUTH [place] 00 EVERY Medical MORNING Branch WITH 100MCG TABLET LEVOTHYROXI 2021-0 Yes [id number] TAKE 1 [facility] 4-08 TABLET BY [facility] o f tablet 00:00: MOUTH [place] 00 EVERY Medical MORNING [facility] WITH 100MCG TABLET LEVOTHYROXI 2021-0 Yes [id number] TAKE 1 [facility] 4-08 TABLET BY [facility] o f tablet 00:00: MOUTH [place] 00 EVERY Medical MORNING Branch WITH 100MCG TABLET LEVOTHYROXI 2021-0 Yes [id number] TAKE 1 [facility] 4-08 TABLET BY ity o f tablet 00:00: MOUTH [place] 00 EVERY [facility] MORNING [facility] WITH 100MCG TABLET LEVOTHYROXI 2021-0 Yes [id number] TAKE 1 [facility] [place] 88 m[facility] 4-08 TABLET BY ity o f tablet 00:00: MOUTH [place] 00 EVERY [facility] MORNING [facility] WITH 100MCG TABLET LEVOTHYROXI 2021-0 Yes [id number] TAKE 1 [facility] [place] 88 m[facility] 4-08 TABLET BY ity o f tablet 00:00: MOUTH [place] 00 EVERY [facility] MORNING [facility] WITH 100MCG TABLET LEVOTHYROXI 2021-0 Yes [id number] TAKE 1 [facility] [place] 88 m[facility] 4-08 TABLET BY ity o f tablet 00:00: MOUTH [place] 00 EVERY [facility] MORNING [facility] WITH 100MCG TABLET LEVOTHYROXI 2021-0 Yes [id number] TAKE 1 [facility] [place] 88 mcg 4-08 TABLET BY ity o f tablet 00:00: MOUTH [place] 00 EVERY Medical MORNING Branch WITH 100MCG TABLET LEVOTHYROXI 2021-0 Yes [id number] [facility]KE 1 [facility] 4-08 TABLET BY ity o f tablet 00:00: MOUTH [place] 00 EVERY [facility] MORNING [facility] WITH 100MCG TABLET LEVOTHYROXI 2021-0 Yes [id number] TAKE 1 [facility] m[facility] 4-08 TABLET BY ity o f tablet 00:00: MOUTH [place] 00 EVERY Medical MORNING [facility] WITH 100MCG TABLET LEVOTHYROXI 2021-0 Yes [id number] TAKE 1 [facility] m[facility] 4-08 TABLET BY ity o f tablet 00:00: MOUTH [place] 00 EVERY Medical MORNING [facility] WITH 100MCG TABLET LEVOTHYROXI 2021-0 Yes [id number] TAKE 1 [facility] m[facility] 4-08 TABLET BY ity o f tablet 00:00: MOUTH [place] 00 EVERY Medical MORNING [facility] WITH 100MCG TABLET LEVOTHYROXI 2021-0 Yes [id number] TAKE 1 [facility] mcg 4-08 TABLET BY ity o f tablet 00:00: MOUTH [place] 00 EVERY Medical MORNING Branch WITH 100MCG TABLET LEVOTHYROXI 2021-0 Yes [id number] TAKE 1 [facility] mcg 4-08 TABLET BY ity o f tablet 00:00: MOUTH [place] 00 EVERY Medical MORNING Branch WITH 100MCG TABLET LEVOTHYROXI 2021-0 Yes [id number] TAKE 1 [facility] 88 mcg 4-08 TABLET BY ity o f tablet 00:00: MOUTH [place] 00 EVERY Medical MORNING [facility] WITH 100MCG TABLET LEVOTHYROXI 2021-0 Yes [id number] TAKE 1 [facility] mcg 4-08 TABLET BY ity o f tablet 00:00: MOUTH [place] 00 EVERY Medical MORNING [facility] WITH 100MCG TABLET LEVOTHYROXI 2021-0 Yes [id number] TAKE 1 [facility] mcg 4-08 TABLET BY ity o f tablet 00:00: MOUTH [place] 00 EVERY Medical MORNING [facility] WITH 100MCG TABLET LEVOTHYROXI 2021-0 Yes [id number] TAKE 1 [facility] mcg 4-08 TABLET BY ity o f tablet 00:00: MOUTH [place] 00 EVERY Medical MORNING [facility] WITH 100MCG TABLET LEVOTHYROXI 2021-0 Yes [id number] TAKE 1 [facility] mcg 4-08 TABLET BY ity o f tablet 00:00: MOUTH [place] 00 EVERY Medical MORNING [facility] WITH 100MCG TABLET LEVOTHYROXI 2021-0 Yes [id number] TAKE 1 [facility] mcg 4-08 TABLET BY ity o f tablet 00:00: MOUTH 00 EVERY Medical MORNING [facility] WITH 100MCG TABLET LEVOTHYROXI 2021-0 Yes [id number] TAKE 1 [facility] mcg 4-08 TABLET BY ity o f tablet 00:00: MOUTH 00 EVERY Medical MORNING Branch WITH 100MCG TABLET LEVOTHYROXI 2021-0 Yes [id number] TAKE 1 [facility] mcg 4-08 TABLET BY ity o f tablet 00:00: MOUTH 00 EVERY Medical MORNING [facility] WITH 100MCG TABLET LEVOTHYROXI 2021-0 Yes [id number] TAKE 1 [facility] mcg 4-08 TABLET BY ity o f tablet 00:00: MOUTH [place] 00 EVERY Medical MORNING [facility] WITH 100MCG TABLET LEVOTHYROXI 2021-0 Yes [id number] TAKE 1 [facility] mcg 4-08 TABLET BY ity o f tablet 00:00: MOUTH [place] 00 EVERY Medical MORNING Branch WITH 100MCG TABLET LEVOTHYROXI 2021-0 Yes [id number] TAKE 1 [facility] mcg 4-08 TABLET BY ity o f tablet 00:00: MOUTH [place] 00 EVERY Medical MORNING Branch WITH 100MCG TABLET LEVOTHYROXI 2021-0 Yes [id number] TAKE 1 [facility] mcg 4-08 TABLET BY ity o f tablet 00:00: MOUTH [place] 00 EVERY Medical MORNING Branch WITH 100MCG TABLET LEVOTHYROXI 2021-0 Yes [id number] TAKE 1 [facility] mcg 4-08 TABLET BY ity o f tablet 00:00: MOUTH 00 EVERY Medical MORNING Branch WITH 100MCG TABLET LEVOTHYROXI 2021-0 Yes [id number] TAKE 1 [facility] mcg 4-08 TABLET BY ity o f tablet 00:00: MOUTH 00 EVERY Medical MORNING Branch WITH 100MCG TABLET LEVOTHYROXI 2021-0 Yes [id number] TAKE 1 [facility] mcg 4-08 TABLET BY ity o f tablet 00:00: MOUTH 00 EVERY Medical MORNING Branch WITH 100MCG TABLET LEVOTHYROXI 2021-0 Yes [id number] TAKE 1 [facility] mcg 4-08 TABLET BY ity o f tablet 00:00: MOUTH 00 EVERY Medical MORNING Branch WITH 100MCG TABLET LEVOTHYROXI 2021-0 Yes [id number] TAKE 1 [facility] mcg 4-08 TABLET BY ity o f tablet 00:00: MOUTH 00 EVERY Medical MORNING Branch WITH 100MCG TABLET LEVOTHYROXI 2021-0 Yes [id number] TAKE 1 [facility] mcg 4-08 TABLET BY ity o f tablet 00:00: MOUTH 00 EVERY Medical MORNING Branch WITH 100MCG TABLET LEVOTHYROXI 2021-0 Yes [id number] TAKE 1 [facility] 88 mcg 4-08 TABLET BY ity o f tablet 00:00: MOUTH 00 EVERY Medical MORNING Branch WITH 100MCG TABLET LEVOTHYROXI 2021-0 Yes [id number] TAKE 1 [facility] mcg 4-08 TABLET BY ity o f tablet 00:00: [place] [facility] 00 EVERY Medical MORNING Branch WITH 100MCG TABLET LEVOTHYROXI 2021-0 Yes [id number] TAKE 1 [facility] 88 mcg 4-08 TABLET BY ity o f tablet 00:00: MOUTH 00 EVERY Medical MORNING Branch WITH 100MCG TABLET LEVOTHYROXI 2021-0 Yes [id number] TAKE 1 [facility] 88 mcg 4-08 TABLET BY ity o f tablet 00:00: MOUTH 00 EVERY Medical MORNING Branch WITH 100MCG TABLET LEVOTHYROXI 2021-0 Yes [id number] TAKE 1 [facility] mcg 4-08 TABLET BY ity o f tablet 00:00: MOUTH 00 EVERY Medical MORNING Branch WITH 100MCG TABLET LEVOTHYROXI 2021-0 Yes [id number] TAKE 1 [facility] 88 mcg 4-08 TABLET BY ity o f tablet 00:00: MOUTH [place] 00 EVERY Medical MORNING Branch WITH 100MCG TABLET LEVOTHYROXI 2021-0 Yes [id number] TAKE 1 [facility] 88 mcg 4-08 TABLET BY ity o f tablet 00:00: MOUTH [place] 00 EVERY Medical MORNING Branch WITH 100MCG TABLET LEVOTHYROXI 2021-0 Yes [id number] TAKE 1 [facility] 88 mcg 4-08 TABLET BY ity o f tablet 00:00: MOUTH [place] 00 EVERY Medical MORNING Branch WITH 100MCG TABLET LEVOTHYROXI 2021-0 Yes [id number] TAKE 1 [facility] 88 mcg 4-08 TABLET BY ity o f tablet 00:00: MOUTH [place] 00 EVERY Medical MORNING Branch WITH 100MCG TABLET LEVOTHYROXI 2021-0 Yes [id number] TAKE 1 [facility] 88 mcg 4-08 TABLET BY ity o f tablet 00:00: MOUTH 00 EVERY Medical MORNING Branch WITH 100MCG TABLET LEVOTHYROXI 2021-0 Yes [id number] TAKE 1 [facility] 88 mcg 4-08 TABLET BY ity o f tablet 00:00: MOUTH [place] 00 EVERY Medical MORNING Branch WITH 100MCG TABLET LEVOTHYROXI 2021-0 Yes [id number] TAKE 1 [facility] 88 mcg 4-08 TABLET BY ity o f tablet 00:00: MOUTH [place] 00 EVERY Medical MORNING Branch WITH 100MCG TABLET LEVOTHYROXI 2021-0 Yes [id number] TAKE 1 [facility] 88 mcg 4-08 TABLET BY ity o f tablet 00:00: MOUTH [place] 00 EVERY Medical MORNING Branch WITH 100MCG TABLET LEVOTHYROXI 2021-0 Yes [id number] TAKE 1 [facility] 88 mcg 4-08 TABLET BY ity o f tablet 00:00: MOUTH [place] 00 EVERY Medical MORNING Branch WITH 100MCG TABLET LEVOTHYROXI 2021-0 Yes [id number] TAKE 1 [facility] 88 mcg 4-08 TABLET BY ity o f tablet 00:00: MOUTH [place] 00 EVERY Medical MORNING Branch WITH 100MCG TABLET LEVOTHYROXI 2021-0 Yes [id number] TAKE 1 [facility] 88 mcg 4-08 TABLET BY ity o f tablet 00:00: MOUTH [place] 00 EVERY Medical MORNING Branch WITH 100MCG TABLET LEVOTHYROXI 2021-0 Yes [id number] TAKE 1 [facility] 88 mcg 4-08 TABLET BY ity o f tablet 00:00: MOUTH [place] 00 EVERY Medical MORNING Branch WITH 100MCG TABLET LEVOTHYROXI 2021-0 Yes [id number] TAKE 1 [facility] 88 mcg 4-08 TABLET BY ity o f tablet 00:00: MOUTH [place] 00 EVERY Medical MORNING Branch WITH 100MCG TABLET LEVOTHYROXI 2021-0 Yes [id number] TAKE 1 [facility] 88 mcg 4-08 TABLET BY ity o f tablet 00:00: MOUTH [place] 00 EVERY Medical MORNING Branch WITH 100MCG TABLET LEVOTHYROXI 2021-0 Yes [id number] TAKE 1 [facility] 88 mcg 4-08 TABLET BY ity o f tablet 00:00: MOUTH [place] 00 EVERY Medical MORNING Branch WITH 100MCG TABLET LEVOTHYROXI 2021-0 Yes [id number] TAKE 1 [facility] 88 mcg 4-08 TABLET BY ity o f tablet 00:00: MOUTH [place] 00 EVERY Medical MORNING Branch WITH 100MCG TABLET LEVOTHYROXI 2021-0 Yes [id number] TAKE 1 [facility] 88 mcg 4-08 TABLET BY ity o f tablet 00:00: MOUTH [place] 00 EVERY Medical MORNING Branch WITH 100MCG TABLET LEVOTHYROXI 2021-0 Yes [id number] TAKE 1 [facility] 88 mcg 4-08 TABLET BY ity o f tablet 00:00: MOUTH [place] 00 EVERY Medical MORNING Branch WITH 100MCG TABLET LEVOTHYROXI 2021-0 Yes [id number] TAKE 1 [facility] 88 m[facility] 4-08 TABLET BY ity o f tablet 00:00: MOUTH [place] 00 EVERY Medical MORNING Branch WITH 100MCG TABLET LEVOTHYROXI 2021-0 Yes [id number] TAKE 1 [facility] 88 mcg 4-08 TABLET BY ity o f tablet 00:00: MOUTH [place] 00 EVERY Medical MORNING Branch WITH 100MCG TABLET LEVOTHYROXI 2021-0 Yes [id number] TAKE 1 [facility] 88 mcg 4-08 TABLET BY ity o f tablet 00:00: MOUTH [place] 00 EVERY Medical MORNING Branch WITH 100MCG TABLET LEVOTHYROXI 2021-0 Yes [id number] TAKE 1 [facility] 88 mcg 4-08 TABLET BY ity o f tablet 00:00: MOUTH [place] 00 EVERY Medical MORNING Branch WITH 100MCG TABLET LEVOTHYROXI 2021-0 Yes [id number] TAKE 1 [facility] 88 mcg 4-08 TABLET BY ity o f tablet 00:00: MOUTH [place] 00 EVERY Medical MORNING Branch WITH 100MCG TABLET LEVOTHYROXI 2021-0 Yes [id number] TAKE 1 [facility] 88 mcg 4-08 TABLET BY ity o f tablet 00:00: MOUTH [place] 00 EVERY Medical MORNING Branch WITH 100MCG TABLET LEVOTHYROXI 2021-0 Yes [id number] TAKE 1 [facility] 88 mcg 4-08 TABLET BY ity o f tablet 00:00: MOUTH [place] 00 EVERY Medical MORNING Branch WITH 100MCG TABLET LEVOTHYROXI 2021-0 Yes [id number] TAKE 1 [facility] 88 mcg 4-08 TABLET BY ity o f tablet 00:00: MOUTH [place] 00 EVERY Medical MORNING Branch WITH 100MCG TABLET LEVOTHYROXI 2021-0 Yes [id number] TAKE 1 [facility] 88 mcg 4-08 TABLET BY ity o f tablet 00:00: MOUTH [place] 00 EVERY Medical MORNING Branch WITH 100MCG TABLET LEVOTHYROXI 2021-0 Yes [id number] TAKE 1 [facility] 88 mcg 4-08 TABLET BY ity o f tablet 00:00: MOUTH [place] 00 EVERY Medical MORNING Branch WITH 100MCG TABLET LEVOTHYROXI 2021-0 Yes [id number] TAKE 1 [facility] 88 mcg 4-08 TABLET BY ity o f tablet 00:00: MOUTH [place] 00 EVERY Medical MORNING Branch WITH 100MCG TABLET LEVOTHYROXI 2021-0 Yes [id number] TAKE 1 [facility] 88 mcg 4-08 TABLET BY ity o f tablet 00:00: MOUTH [place] 00 EVERY Medical MORNING Branch WITH 100MCG TABLET LEVOTHYROXI 2021-0 Yes [id number] TAKE 1 [facility] 88 mcg 4-08 TABLET BY ity o f tablet 00:00: MOUTH [place] 00 EVERY Medical MORNING Branch WITH 100MCG TABLET LEVOTHYROXI 2021-0 Yes [id number] TAKE 1 [facility] 88 mcg 4-08 TABLET BY ity o f tablet 00:00: MOUTH [place] 00 EVERY Medical MORNING Branch WITH 100MCG TABLET LEVOTHYROXI 2021-0 Yes [id number] TAKE 1 [facility] 88 mcg 4-08 TABLET BY ity o f tablet 00:00: MOUTH [place] 00 EVERY Medical MORNING Branch WITH 100MCG TABLET LEVOTHYROXI 2021-0 Yes [id number] TAKE 1 [facility] 88 mcg 4-08 TABLET BY ity o f tablet 00:00: MOUTH [place] 00 EVERY Medical MORNING Branch WITH 100MCG TABLET LEVOTHYROXI 2021-0 Yes [id number] TAKE 1 [facility] 88 mcg 4-08 TABLET BY ity o f tablet 00:00: MOUTH [place] 00 EVERY Medical MORNING Branch WITH 100MCG TABLET LEVOTHYROXI 2021-0 Yes [id number] TAKE 1 [facility] 88 mcg 4-08 TABLET BY ity o f tablet 00:00: MOUTH [place] 00 EVERY Medical MORNING Branch WITH 100MCG TABLET LEVOTHYROXI 2021-0 Yes [id number] TAKE 1 [facility] 88 mcg 4-08 TABLET BY ity o f tablet 00:00: MOUTH [place] 00 EVERY Medical MORNING Branch WITH 100MCG TABLET LEVOTHYROXI 2021-0 Yes [id number] TAKE 1 [facility] 88 mcg 4-08 TABLET BY ity o f tablet 00:00: MOUTH [place] 00 EVERY Medical MORNING Branch WITH 100MCG TABLET LEVOTHYROXI 2021-0 Yes [id number] TAKE 1 [facility] 88 mcg 4-08 TABLET BY ity o f tablet 00:00: MOUTH [place] 00 EVERY Medical MORNING Branch WITH 100MCG TABLET LEVOTHYROXI 2021-0 Yes [id number] TAKE 1 [facility] 88 mcg 4-08 TABLET BY ity o f tablet 00:00: MOUTH [place] 00 EVERY Medical MORNING Branch WITH 100MCG TABLET LEVOTHYROXI 2021-0 Yes [id number] TAKE 1 [facility] 88 mcg 4-08 TABLET BY ity o f tablet 00:00: MOUTH [place] 00 EVERY Medical MORNING Branch WITH 100MCG TABLET LEVOTHYROXI 2021-0 Yes [id number] TAKE 1 [facility] 88 mcg 4-08 TABLET BY ity o f tablet 00:00: MOUTH [place] 00 EVERY Medical MORNING Branch WITH 100MCG TABLET LEVOTHYROXI 2021-0 Yes [id number] TAKE 1 [facility] 88 mcg 4-08 TABLET BY ity o f tablet 00:00: MOUTH [place] 00 EVERY Medical MORNING Branch WITH 100MCG TABLET LEVOTHYROXI 2021-0 Yes [id number] TAKE 1 [facility] 88 mcg 4-08 TABLET BY ity o f tablet 00:00: MOUTH [place] 00 EVERY Medical MORNING Branch WITH 100MCG TABLET LEVOTHYROXI 2021-0 Yes [id number] TAKE 1 [facility] 88 mcg 4-08 TABLET BY ity o f tablet 00:00: MOUTH [place] 00 EVERY Medical MORNING Branch WITH 100MCG TABLET LEVOTHYROXI 2021-0 Yes [id number] TAKE 1 [facility] 88 mcg 4-08 TABLET BY ity o f tablet 00:00: MOUTH [place] 00 EVERY Medical MORNING Branch WITH 100MCG TABLET LEVOTHYROXI 2021-0 Yes [id number] TAKE 1 [facility] 88 mcg 4-08 TABLET BY ity o f tablet 00:00: MOUTH [place] 00 EVERY Medical MORNING Branch WITH 100MCG TABLET LEVOTHYROXI 2021-0 Yes [id number] TAKE 1 [facility] 88 mcg 4-08 TABLET BY ity o f tablet 00:00: MOUTH [place] 00 EVERY Medical MORNING Branch WITH 100MCG TABLET LEVOTHYROXI 2021-0 Yes [id number] TAKE 1 [facility] 88 mcg 4-08 TABLET BY ity o f tablet 00:00: MOUTH [place] 00 EVERY Medical MORNING Branch WITH 100MCG TABLET LEVOTHYROXI 2021-0 Yes [id number] TAKE 1 [facility] 88 mcg 4-08 TABLET BY ity o f tablet 00:00: MOUTH [place] 00 EVERY Medical MORNING Branch WITH 100MCG TABLET LEVOTHYROXI 2021-0 Yes [id number] TAKE 1 [facility] 88 mcg 4-08 TABLET BY ity o f tablet 00:00: MOUTH [place] 00 EVERY Medical MORNING Branch WITH 100MCG TABLET LEVOTHYROXI 2021-0 Yes [id number] TAKE 1 [facility] 88 mcg 4-08 TABLET BY ity o f tablet 00:00: MOUTH [place] 00 EVERY Medical MORNING Branch WITH 100MCG TABLET LEVOTHYROXI 2021-0 Yes [id number] TAKE 1 [facility] 88 mcg 4-08 TABLET BY ity o f tablet 00:00: MOUTH [place] 00 EVERY Medical MORNING Branch WITH 100MCG TABLET LEVOTHYROXI 2021-0 Yes [id number] TAKE 1 [facility] 88 mcg 4-08 TABLET BY ity o f tablet 00:00: MOUTH [place] 00 EVERY Medical MORNING Branch WITH 100MCG TABLET LEVOTHYROXI 2021-0 Yes [id number] TAKE 1 [facility] 88 mcg 4-08 TABLET BY ity o f tablet 00:00: MOUTH [place] 00 EVERY Medical MORNING Branch WITH 100MCG TABLET LEVOTHYROXI 2021-0 Yes [id number] TAKE 1 [facility] 88 mcg 4-08 TABLET BY ity o f tablet 00:00: MOUTH [place] 00 EVERY Medical MORNING Branch WITH 100MCG TABLET LEVOTHYROXI 2021-0 Yes [id number] TAKE 1 [facility] 88 mcg 4-08 TABLET BY ity o f tablet 00:00: MOUTH [place] 00 EVERY Medical MORNING Branch WITH 100MCG TABLET LEVOTHYROXI 2021-0 Yes [id number] TAKE 1 [facility] 88 mcg 4-08 TABLET BY ity o f tablet 00:00: MOUTH [place] 00 EVERY Medical MORNING Branch WITH 100MCG TABLET LEVOTHYROXI 2021-0 Yes [id number] TAKE 1 [facility] 88 mcg 4-08 TABLET BY ity o f tablet 00:00: MOUTH [place] 00 EVERY Medical MORNING Branch WITH 100MCG TABLET LEVOTHYROXI 2021-0 Yes [id number] TAKE 1 [facility] 88 mcg 4-08 TABLET BY ity o f tablet 00:00: MOUTH [place] 00 EVERY Medical MORNING Branch WITH 100MCG TABLET LEVOTHYROXI 2021-0 Yes [id number] TAKE 1 [facility] 88 mcg 4-08 TABLET BY ity o f tablet 00:00: MOUTH [place] 00 EVERY Medical MORNING Branch WITH 100MCG TABLET LEVOTHYROXI 2021-0 Yes [id number] TAKE 1 [facility] 88 mcg 4-08 TABLET BY ity o f tablet 00:00: MOUTH [place] 00 EVERY Medical MORNING Branch WITH 100MCG TABLET LEVOTHYROXI 2021-0 Yes [id number] TAKE 1 [facility] 88 mcg 4-08 TABLET BY ity o f tablet 00:00: MOUTH [place] 00 EVERY Medical MORNING Branch WITH 100MCG TABLET LEVOTHYROXI 2021-0 Yes [id number] TAKE 1 [facility] 88 mcg 4-08 TABLET BY ity o f tablet 00:00: MOUTH [place] 00 EVERY Medical MORNING Branch WITH 100MCG TABLET LEVOTHYROXI 2021-0 Yes [id number] TAKE 1 [facility] 88 mcg 4-08 TABLET BY ity o f tablet 00:00: MOUTH [place] 00 EVERY Medical MORNING Branch WITH 100MCG TABLET LEVOTHYROXI 2021-0 Yes [id number] TAKE 1 [facility] 88 mcg 4-08 TABLET BY ity o f tablet 00:00: MOUTH [place] 00 EVERY Medical MORNING Branch WITH 100MCG TABLET LEVOTHYROXI 2021-0 Yes [id number] TAKE 1 [facility] 88 mcg 4-08 TABLET BY ity o f tablet 00:00: MOUTH [place] 00 EVERY Medical MORNING Branch WITH 100MCG TABLET LEVOTHYROXI Yes [id number] TAKE 1 [facility] mcg 4-08 TABLET BY ity o f tablet 00:00: MOUTH [place] 00 EVERY Medical MORNING Branch WITH 100MCG TABLET LEVOTHYROXI 2020-0 Yes [id number] TAKE 1 [facility] mcg 4-08 TABLET BY ity o f tablet 00:00: MOUTH 00 EVERY Medical MORNING Branch WITH 100MCG TABLET LEVOTHYROXI 0 Yes [id number] TAKE 1 [facility] mcg 4-08 TABLET BY ity o f tablet 00:00: MOUTH [place] 00 EVERY Medical MORNING Branch WITH 100MCG TABLET linaCLOtide Yes [id number] 1{capsu Take 1-2 [facility] (LINZESS) 1-26 le} capsules ity of 72 mcg Cap 00:00: by mouth [place] 00 daily. For Medical constipati Branch on linaCLOtide Yes [id number] 1{capsu Take 1-2 [facility] (LINZESS) 1-26 le} capsules ity of 72 mcg Cap 00:00: by mouth [place] 00 daily. For Medical constipati Branch on linaCLOtide Yes [id number] 1{capsu Take 1-2 [facility] (LINZESS) 1-26 le} capsules ity of 72 mcg Cap 00:00: by mouth [place] 00 daily. For Medical constipati Branch on linaCLOtide Yes [id number] 1{capsu Take 1-2 [facility] (LINZESS) 1-26 le} capsules ity of 72 mcg Cap 00:00: by mouth [place] 00 daily. For Medical constipati Branch on linaCLOtide Yes [id number] 1{capsu Take 1-2 [facility] (LINZESS) 1-26 le} capsules ity of 72 mcg Cap 00:00: by mouth [place] 00 daily. For Medical constipati Branch on linaCLOtide Yes [id number] 1{capsu Take 1-2 [facility] (LINZESS) 1-26 le} capsules ity of 72 mcg Cap 00:00: by mouth [place] [facility] 00 daily. For Medical constipati Branch on linaCLOtide Yes [id number] 1{capsu Take 1-2 [facility] (LINZESS) 1-26 le} capsules ity of 72 mcg Cap 00:00: by mouth [place] [facility] 00 daily. For Medical constipati Branch on linaCLOtide Yes [id number] 1{capsu Take 1-2 [facility] (LINZESS) 1-26 le} capsules ity of 72 mcg Cap 00:00: by mouth [place] [facility] 00 daily. For Medical constipati Branch on linaCLOtide Yes [id number] 1{capsu Take 1-2 [facility] (LINZESS) 1-26 le} capsules ity of 72 mcg Cap 00:00: by mouth [place] [facility] 00 daily. For Medical constipati Branch on linaCLOtide Yes [id number] 1{capsu Take 1-2 [facility] (LINZESS) 1-26 le} capsules ity of 72 mcg Cap 00:00: by mouth [place] [facility] 00 daily. For Medical constipati Branch on linaCLOtide Yes [id number] 1{capsu Take 1-2 [facility] (LINZESS) 1-26 le} capsules ity of 72 mcg Cap 00:00: by mouth [place] [facility] 00 daily. For Medical constipati Branch on linaCLOtide Yes [id number] 1{capsu Take 1-2 [facility] (LINZESS) 1-26 le} capsules ity of 72 mcg Cap 00:00: by mouth [place] [facility] 00 daily. For Medical constipati Branch on linaCLOtide Yes [id number] 1{capsu Take 1-2 [facility] (LINZESS) 1-26 le} capsules ity of 72 mcg Cap 00:00: by mouth [place] 00 daily. For Medical constipati Branch on linaCLOtide Yes [id number] 1{capsu Take 1-2 [facility] (LINZESS) 1-26 le} capsules ity of 72 mcg Cap 00:00: by mouth [place] 00 daily. For Medical constipati Branch on linaCLOtide Yes [id number] 1{capsu Take 1-2 [facility] (LINZESS) 1-26 le} capsules ity of 72 mcg Cap 00:00: by mouth [place] 00 daily. For Medical constipati Branch on linaCLOtide Yes [id number] 1{capsu Take 1-2 [facility] (LINZESS) 1-26 le} capsules ity of 72 mcg Cap 00:00: by mouth [place] 00 daily. For Medical constipati Branch on linaCLOtide Yes [id number] 1{capsu Take 1-2 [facility] (LINZESS) 1-26 le} capsules ity of 72 mcg Cap 00:00: by mouth [place] [facility] 00 daily. For Medical constipati Branch on linaCLOtide Yes [id number] 1{capsu Take 1-2 [facility] (LINZESS) 1-26 le} capsules ity of 72 mcg Cap 00:00: by mouth [place] [facility] 00 daily. For Medical constipati Branch on linaCLOtide Yes [id number] 1{capsu Take 1-2 [facility] (LINZESS) 1-26 le} capsules ity of 72 mcg Cap 00:00: by mouth [place] [facility] 00 daily. For Medical constipati Branch on linaCLOtide Yes [id number] 1{capsu Take 1-2 [facility] (LINZESS) 1-26 le} capsules ity of 72 mcg Cap 00:00: by mouth [place] 00 daily. For Medical constipati Branch on linaCLOtide Yes [id number] 1{capsu Take 1-2 [facility] (LINZESS) 1-26 le} capsules ity of 72 mcg Cap 00:00: by mouth [place] [facility] 00 daily. For Medical constipati Branch on linaCLOtide Yes [id number] 1{capsu Take 1-2 [facility] (LINZESS) 1-26 le} capsules ity of 72 mcg Cap 00:00: by mouth [place] [facility] 00 daily. For Medical constipati Branch on linaCLOtide Yes [id number] 1{capsu Take 1-2 [facility] (LINZESS) 1-26 le} capsules ity of 72 mcg Cap 00:00: by mouth [place] [facility] 00 daily. For Medical constipati Branch on linaCLOtide Yes [id number] 1{capsu Take 1-2 [facility] (LINZESS) 1-26 le} capsules ity of 72 mcg Cap 00:00: by mouth [place] [facility] 00 daily. For Medical constipati Branch on linaCLOtide Yes [id number] 1{capsu Take 1-2 [facility] (LINZESS) 1-26 le} capsules ity of 72 mcg Cap 00:00: by mouth [place] [facility] 00 daily. For Medical constipati Branch on linaCLOtide Yes [id number] 1{capsu Take 1-2 [facility] (LINZESS) 1-26 le} capsules ity of 72 mcg Cap 00:00: by mouth [place] [facility] 00 daily. For Medical constipati Branch on linaCLOtide Yes [id number] 1{capsu Take 1-2 [facility] (LINZESS) 1-26 le} capsules ity of 72 mcg Cap 00:00: by mouth [place] [facility] 00 daily. For Medical constipati Branch on linaCLOtide Yes [id number] 1{capsu Take 1-2 [facility] (LINZESS) 1-26 le} capsules ity of 72 mcg Cap 00:00: by mouth [place] [facility] 00 daily. For Medical constipati Branch on linaCLOtide Yes [id number] 1{capsu Take 1-2 [facility] (LINZESS) 1-26 le} capsules ity of 72 mcg Cap 00:00: by mouth [place] [facility] 00 daily. For Medical constipati Branch on linaCLOtide Yes [id number] 1{capsu Take 1-2 [facility] (LINZESS) 1-26 le} capsules ity of 72 mcg Cap 00:00: by mouth [place] [facility] 00 daily. For Medical constipati Branch on linaCLOtide Yes [id number] 1{capsu Take 1-2 [facility] (LINZESS) 1-26 le} capsules ity of 72 mcg Cap 00:00: by mouth [place] [facility] 00 daily. For Medical constipati Branch on linaCLOtide Yes [id number] 1{capsu Take 1-2 [facility] (LINZESS) 1-26 le} capsules ity of 72 mcg Cap 00:00: by mouth [place] [facility] 00 daily. For Medical constipati Branch on linaCLOtide Yes [id number] 1{capsu Take 1-2 [facility] (LINZESS) 1-26 le} capsules ity of 72 mcg Cap 00:00: by mouth [place] [facility] 00 daily. For Medical constipati Branch on linaCLOtide Yes [id number] 1{capsu Take 1-2 [facility] (LINZESS) 1-26 le} capsules ity of 72 mcg Cap 00:00: by mouth [place] [facility] 00 daily. For Medical constipati Branch on linaCLOtide 2021-0 Yes [id number] 1{capsu Take 1-2 [facility] (LINZESS) 1-26 le} capsules ity of 72 mcg Cap 00:00: by mouth [place] [facility] 00 daily. For Medical constipati Branch on linaCLOtide Yes [id number] 1{capsu Take 1-2 [facility] (LINZESS) 1-26 le} capsules ity of 72 mcg Cap 00:00: by mouth [place] [facility] 00 daily. For Medical constipati Branch on linaCLOtide Yes [id number] 1{capsu Take 1-2 [facility] (LINZESS) 1-26 le} capsules ity of 72 mcg Cap 00:00: by mouth [place] [facility] 00 daily. For Medical constipati Branch on linaCLOtide Yes [id number] 1{capsu Take 1-2 [facility] (LINZESS) 1-26 le} capsules ity of 72 mcg Cap 00:00: by mouth [place] [facility] 00 daily. For Medical constipati Branch on linaCLOtide Yes [id number] 1{capsu Take 1-2 [facility] (LINZESS) 1-26 le} capsules ity of 72 mcg Cap 00:00: by mouth [place] [facility] 00 daily. For Medical constipati Branch on linaCLOtide Yes [id number] 1{capsu Take 1-2 [facility] (LINZESS) 1-26 le} capsules ity of 72 mcg Cap 00:00: by mouth [place] [facility] 00 daily. For Medical constipati Branch on linaCLOtide Yes [id number] 1{capsu Take 1-2 [facility] (LINZESS) 1-26 le} capsules ity of 72 mcg Cap 00:00: by mouth [place] [facility] 00 daily. For Medical constipati Branch on linaCLOtide Yes [id number] 1{capsu Take 1-2 [facility] (LINZESS) 1-26 le} capsules ity of 72 mcg Cap 00:00: by mouth [place] [facility] 00 daily. For Medical constipati Branch on linaCLOtide Yes [id number] 1{capsu Take 1-2 [facility] (LINZESS) 1-26 le} capsules ity of 72 mcg Cap 00:00: by mouth [place] [facility] 00 daily. For Medical constipati Branch on linaCLOtide Yes [id number] 1{capsu Take 1-2 [facility] (LINZESS) 1-26 le} capsules ity of 72 mcg Cap 00:00: by mouth [place] [facility] 00 daily. For Medical constipati Branch on linaCLOtide Yes [id number] 1{capsu Take 1-2 [facility] (LINZESS) 1-26 le} capsules ity of 72 mcg Cap 00:00: by mouth [place] [facility] 00 daily. For Medical constipati Branch on linaCLOtide Yes [id number] 1{capsu Take 1-2 [facility] (LINZESS) 1-26 le} capsules ity of 72 mcg Cap 00:00: by mouth [facility] 00 daily. For Medical constipati Branch on linaCLOtide Yes [id number] 1{capsu Take 1-2 [facility] (LINZESS) 1-26 le} capsules ity of 72 mcg Cap 00:00: by mouth [facility] 00 daily. For Medical constipati Branch on linaCLOtide Yes [id number] 1{capsu Take 1-2 [facility] (LINZESS) 1-26 le} capsules ity of 72 mcg Cap 00:00: by mouth [facility] 00 daily. For Medical constipati Branch on linaCLOtide Yes [id number] 1{capsu Take 1-2 [facility] (LINZESS) 1-26 le} capsules ity of 72 mcg Cap 00:00: by mouth [facility] 00 daily. For Medical constipati Branch on linaCLOtide Yes [id number] 1{capsu Take 1-2 [facility] (LINZESS) 1-26 le} capsules ity of 72 mcg Cap 00:00: by mouth [facility] 00 daily. For Medical constipati Branch on linaCLOtide Yes [id number] 1{capsu Take 1-2 [facility] (LINZESS) 1-26 le} capsules ity of 72 mcg Cap 00:00: by mouth [facility] 00 daily. For Medical constipati Branch on linaCLOtide Yes [id number] 1{capsu Take 1-2 [facility] ([facility] 1-26 le} capsules ity of 72 mcg Cap 00:00: by mouth [facility] as 00 daily. For Medical constipati Branch on linaCLOtide Yes [id number] 1{capsu Take 1-2 [facility] (LIN[facility]) 1-26 le} capsules ity of 72 mcg Cap 00:00: by mouth [facility] as 00 daily. For Medical constipati Branch on linaCLOtide Yes [id number] 1{capsu Take 1-2 [facility] (LINZESS) 1-26 le} capsules ity of 72 mcg Cap 00:00: by mouth [facility] as 00 daily. For Medical constipati Branch on linaCLOtide Yes [id number] 1{capsu Take 1-2 [facility] (LINZESS) 1-26 le} capsules ity of 72 mcg Cap 00:00: by mouth [facility] as 00 daily. For Medical constipati Branch on linaCLOtide Yes [id number] 1{capsu Take 1-2 [facility] (LINZESS) 1-26 le} capsules ity of 72 mcg Cap 00:00: by mouth [facility] as 00 daily. For Medical constipati Branch on linaCLOtide Yes [id number] 1{capsu Take 1-2 [facility] (LINZESS) 1-26 le} capsules ity of 72 mcg Cap 00:00: by mouth [facility] as 00 daily. For Medical constipati Branch on linaCLOtide Yes [id number] 1{capsu Take 1-2 [facility] (LINZESS) 1-26 le} capsules ity of 72 mcg Cap 00:00: by mouth [facility] as 00 daily. For Medical constipati Branch on linaCLOtide Yes [id number] 1{capsu Take 1-2 [facility] (LINZESS) 1-26 le} capsules ity of 72 mcg Cap 00:00: by mouth [facility] as 00 daily. For Medical constipati Branch on linaCLOtide Yes [id number] 1{capsu Take 1-2 [facility] (LINZESS) 1-26 le} capsules ity of 72 mcg Cap 00:00: by mouth [facility] as 00 daily. For Medical constipati Branch on linaCLOtide Yes [id number] 1{capsu Take 1-2 [facility] (LINZESS) 1-26 le} capsules ity of 72 mcg Cap 00:00: by mouth [facility] as 00 daily. For Medical constipati Branch on linaCLOtide Yes [id number] 1{capsu Take 1-2 [facility] (LINZESS) 1-26 le} capsules ity of 72 mcg Cap 00:00: by mouth [facility] as 00 daily. For Medical constipati Branch on linaCLOtide Yes [id number] 1{capsu Take 1-2 [facility] (LINZESS) 1-26 le} capsules ity of 72 mcg Cap 00:00: by mouth [facility] as 00 daily. For Medical constipati Branch on linaCLOtide Yes [id number] 1{capsu Take 1-2 [facility] (LINZESS) 1-26 le} capsules ity of 72 mcg Cap 00:00: by mouth [facility] as 00 daily. For Medical constipati Branch on linaCLOtide Yes [id number] 1{capsu Take 1-2 [facility] (LINZESS) 1-26 le} capsules ity of 72 mcg Cap 00:00: by mouth [facility] as 00 daily. For Medical constipati Branch on linaCLOtide Yes [id number] 1{capsu Take 1-2 [facility] (LINZESS) 1-26 le} capsules ity of 72 mcg Cap 00:00: by mouth [facility] as 00 daily. For Medical constipati Branch on linaCLOtide Yes [id number] 1{capsu Take 1-2 [facility] (LINZESS) 1-26 le} capsules ity of 72 mcg Cap 00:00: by mouth [facility] as 00 daily. For Medical constipati Branch on linaCLOtide Yes [id number] 1{capsu Take 1-2 [facility] (LINZESS) 1-26 le} capsules ity of 72 mcg Cap 00:00: by mouth [facility] as 00 daily. For Medical constipati Branch on linaCLOtide Yes [id number] 1{capsu Take 1-2 [facility] (LINZESS) 1-26 le} capsules ity of 72 mcg Cap 00:00: by mouth [facility] as 00 daily. For Medical constipati Branch on linaCLOtide Yes [id number] 1{capsu Take 1-2 [facility] (LINZESS) 1-26 le} capsules ity of 72 mcg Cap 00:00: by mouth [facility] as 00 daily. For [facility] constipati Branch on linaCLOtide Yes [id number] 1{capsu Take 1-2 [facility] (LINZESS) 1-26 le} capsules ity of 72 mcg Cap 00:00: by mouth [facility] as 00 daily. For Medical constipati Branch on linaCLOtide Yes [id number] 1{capsu Take 1-2 [facility] (LINZESS) 1-26 le} capsules ity of 72 mcg Cap 00:00: by mouth [facility] as 00 daily. For Medical constipati Branch on linaCLOtide Yes [id number] 1{capsu Take 1-2 [facility] (LINZESS) 1-26 le} capsules ity of 72 mcg Cap 00:00: by mouth [facility] as 00 daily. For Medical constipati Branch on linaCLOtide Yes [id number] 1{capsu Take 1-2 [facility] (LINZESS) 1-26 le} capsules ity of 72 mcg Cap 00:00: by mouth [facility] as 00 daily. For Medical constipati Branch on linaCLOtide Yes [id number] 1{capsu Take 1-2 [facility] (LINZESS) 1-26 le} capsules ity of 72 mcg Cap 00:00: by mouth [facility] as 00 daily. For Medical constipati Branch on linaCLOtide Yes [id number] 1{capsu Take 1-2 [facility] (LINZESS) 1-26 le} capsules ity of 72 mcg Cap 00:00: by mouth [facility] as 00 daily. For Medical constipati Branch on linaCLOtide Yes [id number] 1{capsu Take 1-2 [facility] (LINZESS) 1-26 le} capsules ity of 72 mcg Cap 00:00: by mouth [facility] as 00 daily. For [facility] constipati Branch on linaCLOtide Yes [id number] 1{capsu Take 1-2 [facility] (LINZESS) 1-26 le} capsules ity of 72 mcg Cap 00:00: by mouth [facility] as 00 daily. For Medical constipati Branch on linaCLOtide Yes [id number] 1{capsu Take 1-2 [facility] (LINZESS) 1-26 le} capsules ity of 72 mcg Cap 00:00: by mouth [facility] as 00 daily. For [facility] constipati Branch on linaCLOtide Yes [id number] 1{capsu Take 1-2 [facility] (LINZESS) 1-26 le} capsules ity of 72 mcg Cap 00:00: by mouth [facility] as 00 daily. For [facility] constipati Branch on linaCLOtide Yes [id number] 1{capsu Take 1-2 [facility] (LINZESS) 1-26 le} capsules ity of 72 mcg Cap 00:00: by mouth [facility] as 00 daily. For [facility] constipati Branch on linaCLOtide Yes [id number] 1{capsu Take 1-2 [facility] (LINZESS) 1-26 le} capsules ity of 72 mcg Cap 00:00: by mouth [facility] as 00 daily. For [facility] constipati Branch on linaCLOtide Yes [id number] 1{capsu Take 1-2 [facility] (LINZESS) 1-26 le} capsules ity of 72 mcg Cap 00:00: by mouth [facility] as 00 daily. For [facility] constipati Branch on linaCLOtide Yes [id number] 1{capsu Take 1-2 [facility] (LINZESS) 1-26 le} capsules ity of 72 mcg Cap 00:00: by mouth [facility] as 00 daily. For [facility] constipati Branch on linaCLOtide Yes [id number] 1{capsu Take 1-2 [facility] (LINZESS) 1-26 le} capsules ity of 72 mcg Cap 00:00: by mouth Ernst as 00 daily. For [facility] constipati Branch on linaCLOtide Yes [id number] 1{capsu Take 1-2 [facility] (LINZESS) 1-26 le} capsules ity of 72 mcg Cap 00:00: by mouth Ernst as 00 daily. For Medical constipati Branch on linaCLOtide Yes [id number] 1{capsu Take 1-2 [facility] (LINZESS) 1-26 le} capsules ity of 72 mcg Cap 00:00: by mouth [facility] as 00 daily. For [facility] constipati Branch on linaCLOtide Yes [id number] 1{capsu Take 1-2 [facility] (LINZESS) 1-26 le} capsules ity of 72 mcg Cap 00:00: by mouth [facility] as 00 daily. For [facility] constipati Branch on linaCLOtide Yes [id number] 1{capsu Take 1-2 [facility] (LINZESS) 1-26 le} capsules ity of 72 mcg Cap 00:00: by mouth [facility] as 00 daily. For [facility] constipati [facility] on linaCLOtide Yes [id number] 1{capsu Take 1-2 [facility] (LINZESS) 1-26 le} capsules ity of 72 mcg Cap 00:00: by mouth [facility] as 00 daily. For [facility] constipati [facility] on linaCLOtide Yes [id number] 1{capsu Take 1-2 [facility] (LINZESS) 1-26 le} capsules ity of 72 mcg Cap 00:00: by mouth [facility] as 00 daily. For [facility] constipati Branch on linaCLOtide Yes [id number] 1{capsu Take 1-2 [facility] (LINZESS) 1-26 le} capsules ity of 72 mcg Cap 00:00: by mouth [facility] as 00 daily. For [facility] constipati Branch on linaCLOtide Yes [id number] 1{capsu Take 1-2 [facility] (LINZESS) 1-26 le} capsules ity of 72 mcg Cap 00:00: by mouth [facility] as 00 daily. For [facility] constipati Branch on linaCLOtide Yes [id number] 1{capsu Take 1-2 [facility] (LINZESS) 1-26 le} capsules ity of 72 mcg Cap 00:00: by mouth [facility] as 00 daily. For [facility] constipati Branch on linaCLOtide Yes [id number] 1{capsu Take 1-2 [facility] (LINZESS) 1-26 le} capsules ity of 72 mcg Cap 00:00: by mouth [facility] as 00 daily. For [facility] constipati Branch on linaCLOtide Yes [id number] 1{capsu Take 1-2 [facility] (LINZESS) 1-26 le} capsules ity of 72 mcg Cap 00:00: by mouth [facility] as 00 daily. For [facility] constipati Branch on linaCLOtide Yes [id number] 1{capsu Take 1-2 [facility] (LINZESS) 1-26 le} capsules ity of 72 mcg Cap 00:00: by mouth [facility] as 00 daily. For [facility] constipati Branch on linaCLOtide Yes [id number] 1{capsu Take 1-2 [facility] (LINZESS) 1-26 le} capsules ity of 72 mcg Cap 00:00: by mouth [facility] as 00 daily. For Medical constipati Branch on linaCLOtide Yes [id number] 1{capsu Take 1-2 [facility] (LINZESS) 1-26 le} capsules ity of 72 mcg Cap 00:00: by mouth [facility] as 00 daily. For Medical constipati Branch on linaCLOtide Yes [id number] 1{capsu Take 1-2 [facility] (LINZESS) 1-26 le} capsules ity of 72 mcg Cap 00:00: by mouth [facility] as 00 daily. For Medical constipati Branch on linaCLOtide Yes [id number] 1{capsu Take 1-2 [facility] (LINZESS) 1-26 le} capsules ity of 72 mcg Cap 00:00: by mouth [facility] as 00 daily. For Medical constipati Branch on linaCLOtide Yes [id number] 1{capsu Take 1-2 [facility] (LINZESS) 1-26 le} capsules ity of 72 mcg Cap 00:00: by mouth Ernst as 00 daily. For Medical constipati Branch on linaCLOtide Yes [id number] 1{capsu Take 1-2 [facility] (LINZESS) 1-26 le} capsules ity of 72 mcg Cap 00:00: by mouth Ernst as 00 daily. For Medical constipati Branch on linaCLOtide Yes [id number] 1{capsu Take 1-2 [facility] (LINZESS) 1-26 le} capsules ity of 72 mcg Cap 00:00: by mouth [facility] as 00 daily. For Medical constipati Branch on linaCLOtide Yes [id number] 1{capsu Take 1-2 [facility] (LINZESS) 1-26 le} capsules ity of 72 mcg Cap 00:00: by mouth [facility] as 00 daily. For Medical constipati Branch on linaCLOtide Yes [id number] 1{capsu Take 1-2 [facility] (LINZESS) 1-26 le} capsules ity of 72 mcg Cap 00:00: by mouth [facility] as 00 daily. For Medical constipati Branch on linaCLOtide Yes [id number] 1{capsu Take 1-2 [facility] (LINZESS) 1-26 le} capsules ity of 72 mcg Cap 00:00: by mouth [facility] as 00 daily. For Medical constipati Branch on linaCLOtide Yes [id number] 1{capsu Take 1-2 [facility] (LINZESS) 1-26 le} capsules ity of 72 mcg Cap 00:00: by mouth [facility] as 00 daily. For Medical constipati Branch on linaCLOtide Yes [id number] 1{capsu Take 1-2 [facility] (LINZESS) 1-26 le} capsules ity of 72 mcg Cap 00:00: by mouth [facility] as 00 daily. For Medical constipati Branch on linaCLOtide Yes [id number] 1{capsu Take 1-2 [facility] (LINZESS) 1-26 le} capsules ity of 72 mcg Cap 00:00: by mouth [facility] as 00 daily. For Medical constipati Branch on linaCLOtide Yes [id number] 1{capsu Take 1-2 [facility] (LINZESS) 1-26 le} capsules ity of 72 mcg Cap 00:00: by mouth [facility] as 00 daily. For Medical constipati Branch on linaCLOtide Yes [id number] 1{capsu Take 1-2 [facility] (LINZESS) 1-26 le} capsules ity of 72 mcg Cap 00:00: by mouth [facility] as 00 daily. For Medical constipati Branch on linaCLOtide Yes [id number] 1{capsu Take 1-2 [facility] (LINZESS) 1-26 le} capsules ity of 72 mcg Cap 00:00: by mouth [facility] as 00 daily. For Medical constipati Branch on linaCLOtide Yes [id number] 1{capsu Take 1-2 [facility] (LINZESS) 1-26 le} capsules ity of 72 mcg Cap 00:00: by mouth [facility] as 00 daily. For Medical constipati Branch on linaCLOtide Yes [id number] 1{capsu Take 1-2 [facility] (LINZESS) 1-26 le} capsules ity of 72 mcg Cap 00:00: by mouth [facility] as 00 daily. For Medical constipati Branch on linaCLOtide Yes [id number] 1{capsu Take 1-2 [facility] (LINZESS) 1-26 le} capsules ity of 72 mcg Cap 00:00: by mouth [facility] as 00 daily. For Medical constipati Branch on linaCLOtide Yes [id number] 1{capsu Take 1-2 [facility] (LINZESS) 1-26 le} capsules ity of 72 mcg Cap 00:00: by mouth [facility] as 00 daily. For Medical constipati Branch on linaCLOtide Yes [id number] 1{capsu Take 1-2 [facility] (LINZESS) 1-26 le} capsules ity of 72 mcg Cap 00:00: by mouth [facility] as 00 daily. For Medical constipati Branch on linaCLOtide Yes [id number] 1{capsu Take 1-2 [facility] (LINZESS) 1-26 le} capsules ity of 72 mcg Cap 00:00: by mouth [facility] as 00 daily. For Medical constipati Branch on linaCLOtide Yes [id number] 1{capsu Take 1-2 [facility] (LINZESS) 1-26 le} capsules ity of 72 mcg Cap 00:00: by mouth [facility] as 00 daily. For Medical constipati Branch on linaCLOtide Yes [id number] 1{capsu Take 1-2 [facility] (LINZESS) 1-26 le} capsules ity of 72 mcg Cap 00:00: by mouth Ernst as 00 daily. For Medical constipati Branch on linaCLOtide Yes [id number] 1{capsu Take 1-2 [facility] (LINZESS) 1-26 le} capsules ity of 72 mcg Cap 00:00: by mouth Ernst as 00 daily. For Medical constipati Branch on linaCLOtide Yes [id number] 1{capsu Take 1-2 [facility] (LINZESS) 1-26 le} capsules ity of 72 mcg Cap 00:00: by mouth Ernst as 00 daily. For Medical constipati Branch on linaCLOtide Yes [id number] 1{capsu Take 1-2 [facility] (LINZESS) 1-26 le} capsules ity of 72 mcg Cap 00:00: by mouth Ernst as 00 daily. For Medical constipati Branch on linaCLOtide Yes [id number] 1{capsu Take 1-2 [facility] (LINZESS) 1-26 le} capsules ity of 72 mcg Cap 00:00: by mouth Ernst as 00 daily. For Medical constipati Branch on linaCLOtide Yes [id number] 1{capsu Take 1-2 [facility] (LINZESS) 1-26 le} capsules ity of 72 mcg Cap 00:00: by mouth Ernst as 00 daily. For Medical constipati Branch on linaCLOtide Yes [id number] 1{capsu Take 1-2 [facility] (LINZESS) 1-26 le} capsules ity of 72 mcg Cap 00:00: by mouth Ernst as 00 daily. For Medical constipati Branch on linaCLOtide Yes [id number] 1{capsu Take 1-2 [facility] (LINZESS) 1-26 le} capsules ity of 72 mcg Cap 00:00: by mouth Ernst as 00 daily. For Medical constipati Branch on linaCLOtide Yes [id number] 1{capsu Take 1-2 [facility] (LINZESS) 1-26 le} capsules ity of 72 mcg Cap 00:00: by mouth Ernst as 00 daily. For Medical constipati Branch on linaCLOtide Yes [id number] 1{capsu Take 1-2 [facility] (LINZESS) 1-26 le} capsules ity of 72 mcg Cap 00:00: by mouth Ernst as 00 daily. For Medical constipati Branch on linaCLOtide Yes [id number] 1{capsu Take 1-2 [facility] (LINZESS) 1-26 le} capsules ity of 72 mcg Cap 00:00: by mouth Ernst as 00 daily. For Medical constipati Branch on linaCLOtide Yes [id number] 1{capsu Take 1-2 [facility] (LINZESS) 1-26 le} capsules ity of 72 mcg Cap 00:00: by mouth Ernst as 00 daily. For Medical constipati Branch on linaCLOtide Yes [id number] 1{capsu Take 1-2 [facility] (LINZESS) 1-26 le} capsules ity of 72 mcg Cap 00:00: by mouth Ernst as 00 daily. For Medical constipati Branch on linaCLOtide Yes [id number] 1{capsu Take 1-2 [facility] (LINZESS) 1-26 le} capsules ity of 72 mcg Cap 00:00: by mouth Ernst as 00 daily. For Medical constipati Branch on linaCLOtide Yes [id number] 1{capsu Take 1-2 [facility] (LINZESS) 1-26 le} capsules ity of 72 mcg Cap 00:00: by mouth Ernst as 00 daily. For Medical constipati Branch on linaCLOtide Yes [id number] 1{capsu Take 1-2 [facility] (LINZESS) 1-26 le} capsules ity of 72 mcg Cap 00:00: by mouth Ernst as 00 daily. For Medical constipati Branch on linaCLOtide Yes [id number] 1{capsu Take 1-2 [facility] (LINZESS) 1-26 le} capsules ity of 72 mcg Cap 00:00: by mouth [facility] as 00 daily. For Medical constipati Branch on linaCLOtide Yes [id number] 1{capsu Take 1-2 [facility] (LINZESS) 1-26 le} capsules ity of 72 mcg Cap 00:00: by mouth Ernst as 00 daily. For Medical constipati Branch on linaCLOtide Yes [id number] 1{capsu Take 1-2 [facility] (LINZESS) 1-26 le} capsules ity of 72 mcg Cap 00:00: by mouth Ernst as 00 daily. For Medical constipati Branch on linaCLOtide Yes [id number] 1{capsu Take 1-2 [facility] (LINZESS) 1-26 le} capsules ity of 72 mcg Cap 00:00: by mouth Ernst as 00 daily. For Medical constipati Branch on linaCLOtide Yes [id number] 1{capsu Take 1-2 [facility] (LINZESS) 1-26 le} capsules ity of 72 mcg Cap 00:00: by mouth Ernst as 00 daily. For Medical constipati Branch on linaCLOtide Yes [id number] 1{capsu Take 1-2 [facility] (LINZESS) 1-26 le} capsules ity of 72 mcg Cap 00:00: by mouth Ernst as 00 daily. For Medical constipati Branch on linaCLOtide Yes [id number] 1{capsu Take 1-2 [facility] (LINZESS) 1-26 le} capsules ity of 72 mcg Cap 00:00: by mouth Ernst as 00 daily. For Medical constipati Branch on linaCLOtide Yes [id number] 1{capsu Take 1-2 [facility] (LINZESS) 1-26 le} capsules ity of 72 mcg Cap 00:00: by mouth Ernst as 00 daily. For Medical constipati Branch on linaCLOtide Yes [id number] 1{capsu Take 1-2 [facility] (LINZESS) 1-26 le} capsules ity of 72 mcg Cap 00:00: by mouth Ernst as 00 daily. For Medical constipati Branch on linaCLOtide Yes [id number] 1{capsu Take 1-2 [facility] (LINZESS) 1-26 le} capsules ity of 72 mcg Cap 00:00: by mouth Ernst as 00 daily. For Medical constipati Branch on linaCLOtide Yes [id number] 1{capsu Take 1-2 [facility] (LINZESS) 1-26 le} capsules ity of 72 mcg Cap 00:00: by mouth Ernst as 00 daily. For Medical constipati Branch on linaCLOtide Yes [id number] 1{capsu Take 1-2 [facility] (LINZESS) 1-26 le} capsules ity of 72 mcg Cap 00:00: by mouth Ernst as 00 daily. For Medical constipati Branch on linaCLOtide Yes [id number] 1{capsu Take 1-2 [facility] (LINZESS) 1-26 le} capsules ity of 72 mcg Cap 00:00: by mouth Ernst as 00 daily. For Medical constipati Branch on linaCLOtide Yes [id number] 1{capsu Take 1-2 [facility] (LINZESS) 1-26 le} capsules ity of 72 mcg Cap 00:00: by mouth Ernst as 00 daily. For Medical constipati Branch on linaCLOtide Yes [id number] 1{capsu Take 1-2 [facility] (LINZESS) 1-26 le} capsules ity of 72 mcg Cap 00:00: by mouth Ernst as 00 daily. For Medical constipati Branch on linaCLOtide Yes [id number] 1{capsu Take 1-2 [facility] (LINZESS) 1-26 le} capsules ity of 72 mcg Cap 00:00: by mouth Ernst as 00 daily. For Medical constipati Branch on linaCLOtide Yes [id number] 1{capsu Take 1-2 [facility] (LINZESS) 1-26 le} capsules ity of 72 mcg Cap 00:00: by mouth [facility] as 00 daily. For Medical constipati Branch on linaCLOtide Yes [id number] 1{capsu Take 1-2 [facility] (LINZESS) 1-26 le} capsules ity of 72 mcg Cap 00:00: by mouth [facility] as 00 daily. For Medical constipati Branch on linaCLOtide Yes [id number] 1{capsu Take 1-2 [facility] (LINZESS) 1-26 le} capsules ity of 72 mcg Cap 00:00: by mouth [facility] as 00 daily. For Medical constipati Branch on linaCLOtide Yes [id number] 1{capsu Take 1-2 [facility] (LINZESS) 1-26 le} capsules ity of 72 mcg Cap 00:00: by mouth [facility] as 00 daily. For Medical constipati Branch on linaCLOtide Yes [id number] 1{capsu Take 1-2 [facility] (LINZESS) 1-26 le} capsules ity of 72 mcg Cap 00:00: by mouth [facility] as 00 daily. For Medical constipati Branch on linaCLOtide Yes [id number] 1{capsu Take 1-2 [facility] (LINZESS) 1-26 le} capsules ity of 72 mcg Cap 00:00: by mouth Ernst as 00 daily. For Medical constipati Branch on linaCLOtide Yes [id number] 1{capsu Take 1-2 [facility] (LINZESS) 1-26 le} capsules ity of 72 mcg Cap 00:00: by mouth Ernst as 00 daily. For Medical constipati Branch on linaCLOtide Yes [id number] 1{capsu Take 1-2 [facility] (LINZESS) 1-26 le} capsules ity of 72 mcg Cap 00:00: by mouth Ernst as 00 daily. For Medical constipati Branch on linaCLOtide Yes [id number] 1{capsu Take 1-2 [facility] (LINZESS) 1-26 le} capsules ity of 72 mcg Cap 00:00: by mouth Ernst as 00 daily. For Medical constipati Branch on linaCLOtide Yes [id number] 1{capsu Take 1-2 [facility] (LINZESS) 1-26 le} capsules ity of 72 mcg Cap 00:00: by mouth Ernst as 00 daily. For Medical constipati Branch on linaCLOtide Yes [id number] 1{capsu Take 1-2 [facility] (LINZESS) 1-26 le} capsules ity of 72 mcg Cap 00:00: by mouth Ernst as 00 daily. For Medical constipati Branch on linaCLOtide Yes [id number] 1{capsu Take 1-2 [facility] (LINZESS) 1-26 le} capsules ity of 72 mcg Cap 00:00: by mouth Ernst as 00 daily. For Medical constipati Branch on linaCLOtide Yes [id number] 1{capsu Take 1-2 [facility] (LINZESS) 1-26 le} capsules ity of 72 mcg Cap 00:00: by mouth Ernst as 00 daily. For Medical constipati Branch on Miscellaneo 2018-07 Yes [id number] ENSURE [facility] 2-03 HIGH ity of Supply Misc 00:00: [place]IN 2 [place] [facility] [id number] ENSURE [facility] 2- HIGH ity of Supply Misc 00:00: PROTEIN [place] [facility] C[facility] A DAY [facility] Yes [id number] ENSURE [facility] 2- HIGH ity of Supply Misc 00:00: PROTEIN 2 [place] [facility] C[facility] A DAY [facility] Yes [id number] ENSURE [facility] 2- HIGH ity of Supply Misc 00:00: PROTEIN 2 [place] 00 CANS A DAY [facility] Yes [id number] ENSURE [facility] 2- HIGH ity of Supply Misc 00:00: PROTEIN 2 [place] 00 CANS A DAY [facility]- No [id number] ENSURE [facility] 2-03-15 HIGH ity of Supply Misc 00:00: 00:00 PROTEIN 2 [place] 00 :00 CANS A DAY [facility]- No [id number] ENSURE [facility] 2-03-15 HIGH ity of Supply Misc 00:00: 00:00 PROTEIN 2 [place] 00 :00 CANS A DAY Medical Branch levetiracet 2018-07 Yes TAKE 1 [facility] or am (KEPPRA) 0-22 TABLET BY [facility] 500 MG 00:00: MOUTH of tablet 00 TWICE A Medicin DAY e levetiracet 2018-07 Yes TAKE 1 [facility] am (KEPPRA) 0-22 TABLET BY [facility] 500 MG 00:00: MOUTH of tablet 00 TWICE A Medicin DAY e acetaZOLAMI Yes TAKE ONE [facility] DE (DIAMOX) 7-22 (1) CAP BY [facility] 500 mg 00:00: MOUTH TWO of capsule 00 TIMES Medicin DAILY. e acetaZOLAMI 2019-0 Yes TAKE ONE Ba eddie KENNEY (DIAMOX) 7-22 (1) CAP BY [facility] 500 mg 00:00: MOUTH TWO of capsule 00 TIMES Medicin DAILY. e Blood 2018-0 Yes Use as [facility] Pressure 9-18 directed ity of Monitor 00:00: to check [place] (BLOOD 00 BP once Medical PRESSURE daily, Branch KIT) Kit DX:I10 Blood 2018-0 Yes Use as [facility] Pressure 9-18 directed ity of Monitor 00:00: to check [place] (BLOOD 00 BP once Medical PRESSURE daily, Branch KIT) Kit DX:I10 Blood 2018-0 Yes Use as [facility] Pressure 9-18 directed ity of Monitor 00:00: to check [place] (BLOOD 00 BP once Medical PRESSURE daily, Branch KIT) Kit DX:I10 Blood 2018-0 Yes Use as [facility] Pressure 9-18 directed ity of Monitor 00:00: to check [place] (BLOOD 00 BP once Medical PRESSURE daily, Branch KIT) Kit DX:I10 Blood 2018-0 Yes Use as [facility] Pressure 9-18 directed ity of Monitor 00:00: to check [place] (BLOOD 00 BP once Medical PRESSURE daily, Branch KIT) Kit DX:I10 Blood 2018-0 Yes Use as [facility] Pressure 9-18 directed ity of Monitor 00:00: to check [place] (BLOOD 00 BP once Medical PRESSURE daily, Branch KIT) Kit DX:I10 Blood 2018-0 Yes Use as [facility] Pressure 9-18 directed ity of Monitor 00:00: to check [place] (BLOOD 00 BP once Medical PRESSURE daily, Branch KIT) Kit DX:I10 Blood 2018-0 Yes Use as [facility] Pressure 9-18 directed ity of Monitor 00:00: to check [place] (BLOOD 00 BP once Medical PRESSURE daily, Branch KIT) Kit DX:I10 Blood 2018-0 Yes Use as [facility] Pressure 9-18 directed ity of Monitor 00:00: to check [place] (BLOOD 00 BP once Medical PRESSURE daily, Branch KIT) Kit DX:I10 Blood 2018-0 Yes Use as [facility] Pressure 9-18 directed ity of Monitor 00:00: to check [place] (BLOOD 00 BP once Medical PRESSURE daily, Branch KIT) Kit DX:I10 Blood 2018-0 Yes Use as [facility] Pressure 9-18 directed ity of Monitor 00:00: to check [place] (BLOOD 00 BP once Medical PRESSURE daily, Branch KIT) Kit DX:I10 Blood 2018-0 Yes Use as [facility] Pressure 9-18 directed ity of Monitor 00:00: to check [place] (BLOOD 00 BP once Medical PRESSURE daily, Branch KIT) Kit DX:I10 Blood 2018-0 Yes Use as [facility] Pressure 9-18 directed ity of Monitor 00:00: to check [place] (BLOOD 00 BP once Medical PRESSURE daily, Branch KIT) Kit DX:I10 Blood 2018-0 Yes Use as [facility] Pressure 9-18 directed ity of Monitor 00:00: to check [place] (BLOOD 00 BP once Medical PRESSURE daily, Branch KIT) Kit DX:I10 Blood 2018-0 Yes Use as [facility] Pressure 9-18 directed ity of Monitor 00:00: to check [place] (BLOOD 00 BP once Medical PRESSURE daily, Branch KIT) Kit DX:I10 Blood 2018-0 Yes Use as [facility] Pressure 9-18 directed ity of Monitor 00:00: to check [place] (BLOOD 00 BP once Medical PRESSURE daily, Branch KIT) Kit DX:I10 Blood 2018-0 Yes Use as [facility] Pressure 9-18 directed ity of Monitor 00:00: to check [place] (BLOOD 00 BP once Medical PRESSURE daily, Branch KIT) Kit DX:I10 Blood 2017-0 Yes Use as [facility] Pressure 9-18 directed ity of Monitor 00:00: to check [place] (BLOOD 00 BP once Medical PRESSURE daily, Branch KIT) Kit DX:I10 Blood 2018-0 Yes Use as [facility] Pressure 9-18 directed ity of Monitor 00:00: to check [place] (BLOOD 00 BP once Medical PRESSURE daily, Branch KIT) Kit DX:I10 Blood 2018-0 Yes Use as [facility] Pressure 9-18 directed ity of Monitor 00:00: to check [place] (BLOOD 00 BP once Medical PRESSURE daily, Branch KIT) Kit DX:I10 Blood 2018-0 Yes Use as [facility] Pressure 9-18 directed ity of Monitor 00:00: to check [place] (BLOOD 00 BP once Medical PRESSURE daily, Branch KIT) Kit DX:I10 Blood 2018-0 Yes Use as [facility] Pressure 9-18 directed ity of Monitor 00:00: to check [place] (BLOOD 00 BP once Medical PRESSURE daily, Branch KIT) Kit DX:I10 Blood 2018-0 Yes Use as [facility] 9-18 directed ity of Monitor 00:00: to check [place] (BLOOD 00 BP once Medical PRESSURE daily, Branch KIT) Kit DX:I10 Blood 2018-0 Yes Use as [facility] Pressure 9-18 directed ity of Monitor 00:00: to check [place] (BLOOD 00 BP once Medical PRESSURE daily, Branch KIT) Kit DX:I10 Blood 2018-0 Yes Use as [facility] Pressure 9-18 directed ity of Monitor 00:00: to check [place] (BLOOD 00 BP once Medical PRESSURE daily, Branch KIT) Kit DX:I10 Blood 2018-0 Yes Use as [facility] Pressure 9-18 directed ity of Monitor 00:00: to check [place] (BLOOD 00 BP once Medical PRESSURE daily, Branch KIT) Kit DX:I10 Blood 2018-0 Yes Use as [facility] Pressure 9-18 directed ity of Monitor 00:00: to check [place] (BLOOD 00 BP once Medical PRESSURE daily, Branch KIT) Kit DX:I10 Blood 2018-0 Yes Use as [facility] Pressure 9-18 directed ity of Monitor 00:00: to check [place] (BLOOD 00 BP once Medical PRESSURE daily, Branch KIT) Kit DX:I10 Blood 2018-0 Yes Use as [facility] Pressure 9-18 directed ity of Monitor 00:00: to check [place] (BLOOD 00 BP once Medical PRESSURE daily, Branch KIT) Kit DX:I10 Blood 2018-0 Yes Use as [facility] Pressure 9-18 directed ity of Monitor 00:00: to check [place] (BLOOD 00 BP once Medical PRESSURE daily, Branch KIT) Kit DX:I10 Blood 2018-0 Yes Use as [facility] Pressure 9-18 directed ity of Monitor 00:00: to check [place] (BLOOD 00 BP once Medical PRESSURE daily, Branch KIT) Kit DX:I10 Blood 2018-0 Yes Use as [facility] Pressure 9-18 directed ity of Monitor 00:00: to check [place] (BLOOD 00 BP once Medical PRESSURE daily, Branch KIT) Kit DX:I10 Blood 2018-0 Yes Use as [facility] Pressure 9-18 directed ity of Monitor 00:00: to check [place] (BLOOD 00 BP once Medical PRESSURE daily, Branch KIT) Kit DX:I10 Blood 2018-0 Yes Use as [facility] Pressure 9-18 directed ity of Monitor 00:00: to check [place] (BLOOD 00 BP once Medical PRESSURE daily, Branch KIT) Kit DX:I10 Blood 2018-0 Yes Use as [facility] Pressure 9-18 directed ity of Monitor 00:00: to check [place] (BLOOD 00 BP once Medical PRESSURE daily, Branch KIT) Kit DX:I10 Blood 2018-0 Yes Use as [facility] Pressure 9-18 directed ity of Monitor 00:00: to check [place] (BLOOD 00 BP once Medical PRESSURE daily, Branch KIT) Kit DX:I10 Blood 2018-0 Yes Use as [facility] Pressure 9-18 directed ity of Monitor 00:00: to check [place] (BLOOD 00 BP once Medical PRESSURE daily, Branch KIT) Kit DX:I10 Blood 2018-0 Yes Use as [facility] Pressure 9-18 directed ity of Monitor 00:00: to check [place] (BLOOD 00 BP once Medical PRESSURE daily, Branch KIT) Kit DX:I10 Blood 2018-0 Yes Use as [facility] Pressure 9-18 directed ity of Monitor 00:00: to check [place] (BLOOD 00 BP once Medical PRESSURE daily, Branch KIT) Kit DX:I10 Blood 2018-0 Yes Use as [facility] Pressure 9-18 directed it[facility] of Monitor 00:00: to check [place] (BLOOD 00 BP once Medical PRESSURE daily, Branch KIT) Kit DX:I10 Blood 2018-0 Yes Use as [facility] Pressure 9-18 directed it[facility] of Monitor 00:00: to check [place] (BLOOD 00 BP once Medical PRESSURE daily, Branch KIT) Kit DX:I10 Blood 2018-0 Yes Use as [facility] Pressure 9-18 directed ity of Monitor 00:00: to check [place] (BLOOD 00 BP once Medical PRESSURE daily, Branch KIT) Kit DX:I10 Blood 2018-0 Yes Use as [facility] Pressure 9-18 directed ity of Monitor 00:00: to check [place] (BLOOD 00 BP once Medical PRESSURE daily, Branch KIT) Kit DX:I10 Blood 2018-0 Yes Use as [facility] Pressure 9-18 directed it[facility] of Monitor 00:00: to check [place] (BLOOD 00 BP once Medical PRESSURE daily, Branch KIT) Kit DX:I10 Blood 2018-0 Yes Use as [facility] Pressure 9-18 directed ity of Monitor 00:00: to check [place] (BLOOD 00 BP once Medical PRESSURE daily, Branch KIT) Kit DX:I10 Blood 2018-0 Yes Use as [facility] Pressure 9-18 directed ity of Monitor 00:00: to check [place] (BLOOD 00 BP once Medical PRESSURE daily, Branch KIT) Kit DX:I10 Blood 2018-0 Yes Use as [facility] Pressure 9-18 directed ity of Monitor 00:00: to check [place] (BLOOD 00 BP once Medical PRESSURE daily, Branch KIT) Kit DX:I10 Blood 2018-0 Yes Use as [facility] Pressure 9-18 directed ity of Monitor 00:00: to check [place] (BLOOD 00 BP once Medical PRESSURE daily, Branch KIT) Kit DX:I10 Blood 2018-0 Yes Use as [facility] Pressure 9-18 directed ity of Monitor 00:00: to check [place] (BLOOD 00 BP once Medical PRESSURE daily, Branch KIT) Kit DX:I10 Blood 2018-0 Yes Use as [facility] Pressure 9-18 directed ity of Monitor 00:00: to check [place] (BLOOD 00 BP once Medical PRESSURE daily, Branch KIT) Kit DX:I10 Blood 2018-0 Yes Use as [facility] Pressure 9-18 directed ity of Monitor 00:00: to check [place] (BLOOD 00 BP once Medical PRESSURE daily, Branch KIT) Kit DX:I10 Blood 2018-0 Yes Use as [facility] Pressure 9-18 directed ity of Monitor 00:00: to check [place] (BLOOD 00 BP once Medical PRESSURE daily, Branch KIT) Kit DX:I10 Blood 2018-0 Yes Use as [facility] Pressure 9-18 directed ity of Monitor 00:00: to check [place] (BLOOD 00 BP once Medical PRESSURE daily, Branch KIT) Kit DX:I10 Blood 2018-0 Yes Use as [facility] Pressure 9-18 directed ity of Monitor 00:00: to check [place] (BLOOD 00 BP once Medical PRESSURE daily, Branch KIT) Kit DX:I10 Blood 2018-0 Yes Use as [facility] Pressure 9-18 directed ity of Monitor 00:00: to check [place] (BLOOD 00 BP once Medical PRESSURE daily, Branch KIT) Kit DX:I10 Blood 2018-0 Yes Use as [facility] Pressure 9-18 directed ity of Monitor 00:00: to check [place] (BLOOD 00 BP once Medical PRESSURE daily, Branch KIT) Kit DX:I10 Blood 2018-0 Yes Use as [facility] Pressure 9-18 directed ity of Monitor 00:00: to check [place] (BLOOD 00 BP once Medical PRESSURE daily, Branch KIT) Kit DX:I10 Blood 2018-0 Yes Use as [facility] Pressure 9-18 directed ity of Monitor 00:00: to check [place] (BLOOD 00 BP once Medical PRESSURE daily, Branch KIT) Kit DX:I10 Blood 2018-0 Yes Use as [facility] Pressure 9-18 directed ity of Monitor 00:00: to check [place] (BLOOD 00 BP once Medical PRESSURE daily, Branch KIT) Kit DX:I10 Blood 2018-0 Yes Use as [facility] Pressure 9-18 directed ity of Monitor 00:00: to check [place] (BLOOD 00 BP once Medical PRESSURE daily, Branch KIT) Kit DX:I10 Blood 2018-0 Yes Use as [facility] Pressure 9-18 directed ity of Monitor 00:00: to check [place] (BLOOD 00 BP once Medical PRESSURE daily, Branch KIT) Kit DX:I10 Blood 2018-0 Yes Use as [facility] Pressure 9-18 directed ity of Monitor 00:00: to check [place] (BLOOD 00 BP once Medical PRESSURE daily, Branch KIT) Kit DX:I10 Blood 2018-0 Yes Use as [facility] Pressure 9-18 directed ity of Monitor 00:00: to check [place] (BLOOD 00 BP once Medical PRESSURE daily, Branch KIT) Kit DX:I10 Blood 2018-0 Yes Use as [facility] Pressure 9-18 directed ity of Monitor 00:00: to check [place] (BLOOD 00 BP once Medical PRESSURE daily, Branch KIT) Kit DX:I10 Blood 2018-0 Yes Use as [facility] Pressure 9-18 directed ity of Monitor 00:00: to check [place] (BLOOD 00 BP once Medical PRESSURE daily, Branch KIT) Kit DX:I10 Blood 2018-0 Yes Use as [facility] Pressure 9-18 directed it[facility] of Monitor 00:00: to check [place] (BLOOD 00 BP once Medical PRESSURE daily, Branch KIT) Kit DX:I10 Blood 2018-0 Yes Use as [facility] Pressure 9-18 directed ity of Monitor 00:00: to check [place] (BLOOD 00 BP once Medical PRESSURE daily, Branch KIT) Kit DX:I10 Blood 2018-0 Yes Use as [facility] Pressure 9-18 directed it[facility] of Monitor 00:00: to check [place] (BLOOD 00 BP once Medical PRESSURE daily, Branch KIT) Kit DX:I10 Blood 2018-0 Yes Use as [facility] Pressure 9-18 directed it[facility] of Monitor 00:00: to check [place] (BLOOD 00 BP once Medical PRESSURE daily, Branch KIT) Kit DX:I10 Blood 2018-0 Yes Use as [facility] Pressure 9-18 directed ity of Monitor 00:00: to check [place] (BLOOD 00 BP once Medical PRESSURE daily, Branch KIT) Kit DX:I10 Blood 2018-0 Yes Use as [facility] Pressure 9-18 directed ity of Monitor 00:00: to check [place] (BLOOD 00 BP once Medical PRESSURE daily, Branch KIT) Kit DX:I10 Blood 2018-0 Yes Use as [facility] Pressure 9-18 directed it[facility] of Monitor 00:00: to check [place] (BLOOD 00 BP once Medical PRESSURE daily, Branch KIT) Kit DX:I10 Blood 2018-0 Yes Use as [facility] Pressure 9-18 directed ity of Monitor 00:00: to check [place] (BLOOD 00 BP once Medical PRESSURE daily, Branch KIT) Kit DX:I10 Blood 2018-0 Yes Use as [facility] Pressure 9-18 directed ity of Monitor 00:00: to check [place] (BLOOD 00 BP once Medical PRESSURE daily, Branch KIT) Kit DX:I10 Blood 2018-0 Yes Use as [facility] Pressure 9-18 directed ity of Monitor 00:00: to check [place] (BLOOD 00 BP once Medical PRESSURE daily, Branch KIT) Kit DX:I10 Blood 2018-0 Yes Use as [facility] Pressure 9-18 directed it[facility] of Monitor 00:00: to check [place] (BLOOD 00 BP once Medical PRESSURE daily, Branch KIT) Kit DX:I10 Blood 2018-0 Yes Use as [facility] Pressure 9-18 directed ity of Monitor 00:00: to check [place] (BLOOD 00 BP once Medical PRESSURE daily, Branch KIT) Kit DX:I10 Blood 2018-0 Yes Use as [facility] Pressure 9-18 directed ity of Monitor 00:00: to check [place] (BLOOD 00 BP once Medical PRESSURE daily, Branch KIT) Kit DX:I10 Blood 2017-0 Yes Use as [facility] Pressure 9-18 directed it[facility] of Monitor 00:00: to check [place] (BLOOD 00 BP once Medical PRESSURE daily, Branch KIT) Kit DX:I10 Blood 2018-0 Yes Use as [facility] Pressure 9-18 directed ity of Monitor 00:00: to check [place] (BLOOD 00 BP once Medical PRESSURE daily, Branch KIT) Kit DX:I10 Blood 2018-0 Yes Use as [facility] Pressure 9-18 directed ity of Monitor 00:00: to check [place] (BLOOD 00 BP once Medical PRESSURE daily, Branch KIT) Kit DX:I10 Blood 2018-0 Yes Use as [facility] Pressure 9-18 directed ity of Monitor 00:00: to check [place] (BLOOD 00 BP once Medical PRESSURE daily, Branch KIT) Kit DX:I10 Blood 2018-0 Yes Use as [facility] Pressure 9-18 directed ity of Monitor 00:00: to check [place] (BLOOD 00 BP once Medical PRESSURE daily, Branch KIT) Kit DX:I10 Blood 2018-0 Yes Use as [facility] Pressure 9-18 directed ity of Monitor 00:00: to check [place] (BLOOD 00 BP once Medical PRESSURE daily, Branch KIT) Kit DX:I10 Blood 2018-0 Yes Use as [facility] Pressure 9-18 directed ity of Monitor 00:00: to check [place] (BLOOD 00 BP once Medical PRESSURE daily, Branch KIT) Kit DX:I10 Blood 2018-0 Yes Use as [facility] Pressure 9-18 directed ity of Monitor 00:00: to check [place] (BLOOD 00 BP once Medical PRESSURE daily, Branch KIT) Kit DX:I10 Blood 2018-0 Yes Use as [facility] Pressure 9-18 directed ity of Monitor 00:00: to check [place] (BLOOD 00 BP once Medical PRESSURE daily, Branch KIT) Kit DX:I10 Blood 2018-0 Yes Use as [facility] Pressure 9-18 directed ity of Monitor 00:00: to check [place] (BLOOD 00 BP once Medical PRESSURE daily, Branch KIT) Kit DX:I10 Blood 2018-0 Yes Use as [facility] Pressure 9-18 directed ity of Monitor 00:00: to check [place] (BLOOD 00 BP once Medical PRESSURE daily, Branch KIT) Kit DX:I10 Blood 2018-0 Yes Use as [facility] Pressure 9-18 directed ity of Monitor 00:00: to check [place] (BLOOD 00 BP once Medical PRESSURE daily, Branch KIT) Kit DX:I10 Blood 2018-0 Yes Use as [facility] Pressure 9-18 directed ity of Monitor 00:00: to check [place] (BLOOD 00 BP once Medical PRESSURE daily, Branch KIT) Kit DX:I10 Blood 2018-0 Yes Use as [facility] Pressure 9-18 directed ity of Monitor 00:00: to check [place] (BLOOD 00 BP once Medical PRESSURE daily, Branch KIT) Kit DX:I10 Blood 2018-0 Yes Use as [facility] Pressure 9-18 directed ity of Monitor 00:00: to check [place] (BLOOD 00 BP once Medical PRESSURE daily, Branch KIT) Kit DX:I10 Blood 2018-0 Yes Use as [facility] Pressure 9-18 directed ity of Monitor 00:00: to check [place] (BLOOD 00 BP once Medical PRESSURE daily, Branch KIT) Kit DX:I10 Blood 2018-0 Yes Use as [facility] Pressure 9-18 directed ity of Monitor 00:00: to check [place] (BLOOD 00 BP once Medical PRESSURE daily, Branch KIT) Kit DX:I10 Blood 2018-0 Yes Use as [facility] Pressure 9-18 directed ity of Monitor 00:00: to check [place] (BLOOD 00 BP once Medical PRESSURE daily, Branch KIT) Kit DX:I10 Blood 2018-0 Yes Use as [facility] Pressure 9-18 directed ity of Monitor 00:00: to check [place] (BLOOD 00 BP once Medical PRESSURE daily, Branch KIT) Kit DX:I10 Blood 2018-0 Yes Use as [facility] Pressure 9-18 directed ity of Monitor 00:00: to check [place] (BLOOD 00 BP once Medical PRESSURE daily, Branch KIT) Kit DX:I10 Blood 2018-0 Yes Use as [facility] Pressure 9-18 directed ity of Monitor 00:00: to check [place] (BLOOD 00 BP once Medical PRESSURE daily, Branch KIT) Kit DX:I10 Blood 2018-0 Yes Use as [facility] Pressure 9-18 directed ity of Monitor 00:00: to check [place] (BLOOD 00 BP once Medical PRESSURE daily, Branch KIT) Kit DX:I10 Blood 2018-0 Yes Use as [facility] Pressure 9-18 directed ity of Monitor 00:00: to check [place] (BLOOD 00 BP once Medical PRESSURE daily, Branch KIT) Kit DX:I10 Blood 2018-0 Yes Use as [facility] Pressure 9-18 directed ity of Monitor 00:00: to check [place] (BLOOD 00 BP once Medical PRESSURE daily, Branch KIT) Kit DX:I10 Blood 2018-0 Yes Use as [facility] Pressure 9-18 directed ity of Monitor 00:00: to check [place] (BLOOD 00 BP once Medical PRESSURE daily, Branch KIT) Kit DX:I10 Blood 2018-0 Yes Use as [facility] Pressure 9-18 directed ity of Monitor 00:00: to check [place] (BLOOD 00 BP once Medical PRESSURE daily, Branch KIT) Kit DX:I10 Blood 2018-0 Yes Use as [facility] Pressure 9-18 directed ity of Monitor 00:00: to check [place] (BLOOD 00 BP once Medical PRESSURE daily, Branch KIT) Kit DX:I10 Blood 2018-0 Yes Use as [facility] Pressure 9-18 directed ity of Monitor 00:00: to check [place] (BLOOD 00 BP once Medical PRESSURE daily, Branch KIT) Kit DX:I10 Blood 2018-0 Yes Use as [facility] Pressure 9-18 directed ity of Monitor 00:00: to check [place] (BLOOD 00 BP once Medical PRESSURE daily, Branch KIT) Kit DX:I10 Blood 2018-0 Yes Use as [facility] Pressure 9-18 directed ity of Monitor 00:00: to check [place] (BLOOD 00 BP once Medical PRESSURE daily, Branch KIT) Kit DX:I10 Blood 2018-0 Yes Use as [facility] Pressure 9-18 directed ity of Monitor 00:00: to check [place] (BLOOD 00 BP once Medical PRESSURE daily, Branch KIT) Kit DX:I10 Blood 2018-0 Yes Use as [facility] Pressure 9-18 directed ity of Monitor 00:00: to check [place] (BLOOD 00 BP once Medical PRESSURE daily, Branch KIT) Kit DX:I10 Blood 2018-0 Yes Use as [facility] Pressure 9-18 directed ity of Monitor 00:00: to check [place] (BLOOD 00 BP once Medical PRESSURE daily, Branch KIT) Kit DX:I10 Blood 2018-0 Yes Use as [facility] Pressure 9-18 directed ity of Monitor 00:00: to check [place] (BLOOD 00 BP once Medical PRESSURE daily, Branch KIT) Kit DX:I10 Blood 2018-0 Yes Use as [facility] Pressure 9-18 directed ity of Monitor 00:00: to check [place] (BLOOD 00 BP once Medical PRESSURE daily, Branch KIT) Kit DX:I10 Blood 2018-0 Yes Use as [facility] Pressure 9-18 directed ity of Monitor 00:00: to check [place] (BLOOD 00 BP once Medical PRESSURE daily, Branch KIT) Kit DX:I10 Blood 2018-0 Yes Use as [facility] Pressure 9-18 directed ity of Monitor 00:00: to check [place] (BLOOD 00 BP once Medical PRESSURE daily, Branch KIT) Kit DX:I10 Blood 2018-0 Yes Use as [facility] Pressure 9-18 directed ity of Monitor 00:00: to check [place] (BLOOD 00 BP once Medical PRESSURE daily, Branch KIT) Kit DX:I10 Blood 2018-0 Yes Use as [facility] Pressure 9-18 directed ity of Monitor 00:00: to check [place] (BLOOD 00 BP once Medical PRESSURE daily, Branch KIT) Kit DX:I10 Blood 2018-0 Yes Use as [facility] Pressure 9-18 directed ity of Monitor 00:00: to check [place] (BLOOD 00 BP once Medical PRESSURE daily, Branch KIT) Kit DX:I10 Blood 2018-0 Yes Use as [facility] Pressure 9-18 directed ity of Monitor 00:00: to check [place] (BLOOD 00 BP once Medical PRESSURE daily, Branch KIT) Kit DX:I10 Blood 2018-0 Yes Use as [facility] Pressure 9-18 directed ity of Monitor 00:00: to check [place] (BLOOD 00 BP once Medical PRESSURE daily, Branch KIT) Kit DX:I10 Blood 2018-0 Yes Use as [facility] Pressure 9-18 directed ity of Monitor 00:00: to check [place] (BLOOD 00 BP once Medical PRESSURE daily, Branch KIT) Kit DX:I10 Blood 2018-0 Yes Use as [facility] Pressure 9-18 directed ity of Monitor 00:00: to check [place] (BLOOD 00 BP once Medical PRESSURE daily, Branch KIT) Kit DX:I10 Blood 2018-0 Yes Use as [facility] Pressure 9-18 directed ity of Monitor 00:00: to check [place] (BLOOD 00 BP once Medical PRESSURE daily, Branch KIT) Kit DX:I10 Blood 2018-0 Yes Use as [facility] Pressure 9-18 directed ity of Monitor 00:00: to check [place] (BLOOD 00 BP once Medical PRESSURE daily, Branch KIT) Kit DX:I10 Blood 2018-0 Yes Use as [facility] Pressure 9-18 directed ity of Monitor 00:00: to check [place] (BLOOD 00 BP once Medical PRESSURE daily, Branch KIT) Kit DX:I10 Blood 2018-0 Yes Use as [facility] Pressure 9-18 directed ity of Monitor 00:00: to check [place] (BLOOD 00 BP once Medical PRESSURE daily, Branch KIT) Kit DX:I10 Blood 2018-0 Yes Use as [facility] Pressure 9-18 directed ity of Monitor 00:00: to check [place] (BLOOD 00 BP once Medical PRESSURE daily, Branch KIT) Kit DX:I10 Blood 2018-0 Yes Use as [facility] Pressure 9-18 directed ity of Monitor 00:00: to check [place] (BLOOD 00 BP once Medical PRESSURE daily, Branch KIT) Kit DX:I10 Blood 2018-0 Yes Use as [facility] Pressure 9-18 directed ity of Monitor 00:00: to check [place] (BLOOD 00 BP once Medical PRESSURE daily, Branch KIT) Kit DX:I10 Blood 2018-0 Yes Use as [facility] Pressure 9-18 directed ity of Monitor 00:00: to check [place] (BLOOD 00 BP once Medical PRESSURE daily, Branch KIT) Kit DX:I10 Blood 2018-0 Yes Use as [facility] Pressure 9-18 directed ity of Monitor 00:00: to check [place] (BLOOD 00 BP once Medical PRESSURE daily, Branch KIT) Kit DX:I10 Blood 2018-0 Yes Use as [facility] Pressure 9-18 directed ity of Monitor 00:00: to check [place] (BLOOD 00 BP once Medical PRESSURE daily, Branch KIT) Kit DX:I10 Blood 2018-0 Yes Use as [facility] Pressure 9-18 directed ity of Monitor 00:00: to check [place] (BLOOD 00 BP once Medical PRESSURE daily, Branch KIT) Kit DX:I10 Blood 2018-0 Yes Use as [facility] Pressure 9-18 directed ity of Monitor 00:00: to check [place] (BLOOD 00 BP once Medical PRESSURE daily, Branch KIT) Kit DX:I10 Blood 2018-0 Yes Use as [facility] Pressure 9-18 directed ity of Monitor 00:00: to check [place] (BLOOD 00 BP once Medical PRESSURE daily, Branch KIT) Kit DX:I10 Blood 2018-0 Yes Use as [facility] Pressure 9-18 directed ity of Monitor 00:00: to check [place] (BLOOD 00 BP once Medical PRESSURE daily, Branch KIT) Kit DX:I10 Blood 2018-0 Yes Use as [facility] Pressure 9-18 directed ity of Monitor 00:00: to check [place] (BLOOD 00 BP once Medical PRESSURE daily, Branch KIT) Kit DX:I10 Blood 2018-0 Yes Use as [facility] Pressure 9-18 directed ity of Monitor 00:00: to check [place] (BLOOD 00 BP once Medical PRESSURE daily, Branch KIT) Kit DX:I10 Blood 2018-0 Yes Use as [facility] Pressure 9-18 directed ity of Monitor 00:00: to check [place] (BLOOD 00 BP once Medical PRESSURE daily, Branch KIT) Kit DX:I10 Blood 2017-0 Yes Use as [facility] Pressure 9-18 directed ity of Monitor 00:00: to check [place] (BLOOD 00 BP once Medical PRESSURE daily, Branch KIT) Kit DX:I10 Blood 2018-0 Yes Use as [facility] Pressure 9-18 directed ity of Monitor 00:00: to check [place] (BLOOD 00 BP once Medical PRESSURE daily, Branch KIT) Kit DX:I10 Blood 2018-0 Yes Use as [facility] Pressure 9-18 directed ity of Monitor 00:00: to check [place] (BLOOD 00 BP once Medical PRESSURE daily, Branch KIT) Kit DX:I10 Blood 2018-0 Yes Use as [facility] Pressure 9-18 directed ity of Monitor 00:00: to check [place] (BLOOD 00 BP once Medical PRESSURE daily, Branch KIT) Kit DX:I10 Blood 2018-0 Yes Use as [facility] Pressure 9-18 directed ity of Monitor 00:00: to check [place] (BLOOD 00 BP once Medical PRESSURE daily, Branch KIT) Kit DX:I10 Blood 2018-0 Yes Use as [facility] Pressure 9-18 directed ity of Monitor 00:00: to check [place] (BLOOD 00 BP once Medical PRESSURE daily, Branch KIT) Kit DX:I10 Blood 2018-0 Yes Use as [facility] Pressure 9-18 directed ity of Monitor 00:00: to check [place] (BLOOD 00 BP once Medical PRESSURE daily, Branch KIT) Kit DX:I10 Blood 2018-0 Yes Use as [facility] Pressure 9-18 directed ity of Monitor 00:00: to check [place] (BLOOD 00 BP once Medical PRESSURE daily, Branch KIT) Kit DX:I10 Blood 2018-0 Yes Use as [facility] Pressure 9-18 directed ity of Monitor 00:00: to check [place] (BLOOD 00 BP once Medical PRESSURE daily, Branch KIT) Kit DX:I10 Blood 2018-0 Yes Use as [facility] Pressure 9-18 directed ity of Monitor 00:00: to check [place] (BLOOD 00 BP once Medical PRESSURE daily, Branch KIT) Kit DX:I10 Blood 2018-0 Yes Use as [facility] Pressure 9-18 directed ity of Monitor 00:00: to check [place] (BLOOD 00 BP once Medical PRESSURE daily, Branch KIT) Kit DX:I10 Blood 2018-0 Yes Use as [facility] Pressure 9-18 directed ity of Monitor 00:00: to check [place] (BLOOD 00 BP once Medical PRESSURE daily, Branch KIT) Kit DX:I10 Blood 2018-0 Yes Use as [facility] Pressure 9-18 directed ity of Monitor 00:00: to check [place] (BLOOD 00 BP once Medical PRESSURE daily, Branch KIT) Kit DX:I10 Blood 2018-0 Yes Use as [facility] Pressure 9-18 directed ity of Monitor 00:00: to check [place] (BLOOD 00 BP once Medical PRESSURE daily, Branch KIT) Kit DX:I10 Blood 2018-0 Yes Use as [facility] Pressure 9-18 directed ity of Monitor 00:00: to check [place] (BLOOD 00 BP once Medical PRESSURE daily, Branch KIT) Kit DX:I10 Blood 2018-0 Yes Use as [facility] Pressure 9-18 directed ity of Monitor 00:00: to check [place] (BLOOD 00 BP once Medical PRESSURE daily, Branch KIT) Kit DX:I10 Blood 2018-0 Yes Use as [facility] Pressure 9-18 directed ity of Monitor 00:00: to check [place] (BLOOD 00 BP once Medical PRESSURE daily, Branch KIT) Kit DX:I10 Blood 2018-0 Yes Use as [facility] Pressure 9-18 directed ity of Monitor 00:00: to check [place] (BLOOD 00 BP once Medical PRESSURE daily, Branch KIT) Kit DX:I10 Blood 2018-0 Yes Use as [facility] Pressure 9-18 directed ity of Monitor 00:00: to check [place] (BLOOD 00 BP once Medical PRESSURE daily, Branch KIT) Kit DX:I10 Blood 2018-0 Yes Use as [facility] Pressure 9-18 directed ity of Monitor 00:00: to check [place] (BLOOD 00 BP once Medical PRESSURE daily, Branch KIT) Kit DX:I10 Blood 2018-0 Yes Use as [facility] Pressure 9-18 directed ity of Monitor 00:00: to check [place] (BLOOD 00 BP once Medical PRESSURE daily, Branch KIT) Kit DX:I10 Blood 2018-0 Yes Use as [facility] Pressure 9-18 directed ity of Monitor 00:00: to check [place] (BLOOD 00 BP once Medical PRESSURE daily, Branch KIT) Kit DX:I10 Blood 2018-0 Yes Use as [facility] Pressure 9-18 directed ity of Monitor 00:00: to check [place] (BLOOD 00 BP once Medical PRESSURE daily, Branch KIT) Kit DX:I10 Blood 2018-0 Yes Use as [facility] Pressure 9-18 directed ity of Monitor 00:00: to check [place] (BLOOD 00 BP once Medical PRESSURE daily, Branch KIT) Kit DX:I10 Blood 2018-0 Yes Use as [facility] Pressure 9-18 directed ity of Monitor 00:00: to check [place] (BLOOD 00 BP once Medical PRESSURE daily, Branch KIT) Kit DX:I10 Blood 2018-0 Yes Use as [facility] Pressure 9-18 directed ity of Monitor 00:00: to check [place] (BLOOD 00 BP once Medical PRESSURE daily, Branch KIT) Kit DX:I10 Immunizations Ordered Filled Immunization Date Status Comments [facility] Immunization Name Name Td 2017-04-12 Completed [facility] 00:[facility]:00 [facility] Td 2017-04-12 Completed [facility] 00[facility]00:00 [facility] Td 2017-04-12 Completed [facility] 00[facility]00:00 [facility] Td 2017-04-12 Completed [facility] 00[facility]00:00 [facility] Td 2017-04-12 Completed [facility] 00[facility]00:00 [facility] Td 2017-04-12 Completed [facility] 00[facility]00:00 [facility] Td 2017-04-12 Completed [facility] 00[facility]00:00 [facility] Td 2017-04-12 Completed [facility] 00[facility]00:00 [facility] Td 2017-04-12 Completed [facility] 00[facility]00:00 [facility] Td 2017-04-12 Completed [facility] 00:00:00 [facility] Td 2017-04-12 Completed [facility] 00[facility]00:00 [facility] Td 2017-04-12 Completed [facility] 00:00:00 [facility] Td 2017-04-12 Completed [facility] 00[facility]00:00 [facility] Td 2017-04-12 Completed [facility] 00:00:00 [facility] Td 2017-04-12 Completed [facility] 00:[facility]00 [place] [facility] [facility] Td 2017-04-12 Completed [facility] 00:00:00 [facility] Td 2017-04-12 Completed [facility] 00:00:00 [facility] Td 2017-04-12 Completed [facility] 00:00:00 [facility] Td 2017-04-12 Completed [facility] 00:00:00 [facility] Td 2017-04-12 Completed [facility] 00:00:00 [facility] Td 2017-04-12 Completed [facility] 00:00:00 [facility] Td 2017-04-12 Completed [facility] 00[facility]00:00 [facility] Td 2017-04-12 Completed [facility] 00[facility]00:00 [facility] Td 2017-04-12 Completed [facility] 00:00:00 [facility] Td 2017-04-12 Completed [facility] 00:00:00 [facility] Td 2017-04-12 Completed [facility] 00:00:00 [facility] Td 2017-04-12 Completed [facility] 00:00:00 [facility] Td 2017-04-12 Completed [facility] 00:00:00 [facility] Td 2017-04-12 Completed [facility] 00:00:00 [facility] Td 2017-04-12 Completed [facility] 00:00:00 [facility] Td 2017-04-12 Completed [facility] 00:00:00 [facility] Td 2017-04-12 Completed [facility] 00:00:00 [facility] Td 2017-04-12 Completed [facility] 00:00:00 [facility] Td 2017-04-12 Completed [facility] 00:00:00 [facility] Td 2017-04-12 Completed [facility] 00:00:00 [facility] Td 2017-04-12 Completed [facility] 00:00:00 [facility] Td 2017-04-12 Completed [facility] 00:00:00 [facility] Td 2017-04-12 Completed [facility] 00:00:00 [facility] Td 2017-04-12 Completed [facility] 00:00:00 [facility] Td 2017-04-12 Completed [facility] 00:00:00 [facility] Td 2017-04-12 Completed [facility] 00:00:00 [facility] Td 2017-04-12 Completed [facility] 00:00:00 [facility] Td 2017-04-12 Completed [facility] 00:00:00 [facility] Td 2017-04-12 Completed [facility] 00:00:00 [facility] Td 2017-04-12 Completed [facility] 00:00:00 [facility] Td 2017-04-12 Completed [facility] 00:00:00 [facility] Td 2017-04-12 Completed [facility] 00:00:00 [facility] Td 2017-04-12 Completed [facility] 00:00:00 [facility] Td 2017-04-12 Completed [facility] 00:00:00 [facility] Td 2017-04-12 Completed [facility] 00:00:00 [facility] Td 2017-04-12 Completed [facility] 00:00:00 [facility] Td 2017-04-12 Completed [facility] 00:00:00 [facility] Td 2017-04-12 Completed [facility] 00:00:00 [facility] Td 2017-04-12 Completed [facility] 00:00:00 [facility] Td 2017-04-12 Completed [facility] 00:00:00 [facility] Td 2017-04-12 Completed [facility] 00:00:00 [facility] Td 2017-04-12 Completed [facility] 00:00:00 [facility] Td 2017-04-12 Completed [facility] 00:00:00 [facility] Td 2017-04-12 Completed [facility] 00:00:00 [facility] Td 2017-04-12 Completed [facility] 00:00:00 [facility] Td 2017-04-12 Completed [facility] 00:00:00 [facility] Td 2017-04-12 Completed [facility] 00:00:00 [facility] Td 2017-04-12 Completed [facility] 00:00:00 [facility] Td 2017-04-12 Completed [facility] 00:00:00 [facility] Td 2017-04-12 Completed [facility] 00:00:00 [facility] Td 2017-04-12 Completed [facility] 00:00:00 [facility] Td 2017-04-12 Completed [facility] 00:00:00 [facility] Td 2017-04-12 Completed [facility] 00:00:00 [facility] Td 2017-04-12 Completed [facility] 00:00:00 [facility] Td 2017-04-12 Completed [facility] 00:00:00 [facility] Td 2017-04-12 Completed [facility] 00:00:00 [facility] Td 2017-04-12 Completed [facility] 00:00:00 [facility] Td 2017-04-12 Completed [facility] 00:00:00 [facility] Td 2017-04-12 Completed [facility] 00:00:00 [facility] Td 2017-04-12 Completed [facility] 00:00:00 [facility] Td 2017-04-12 Completed [facility] 00:00:00 [facility] Td 2017-04-12 Completed [facility] 00:00:00 [facility] Td 2017-04-12 Completed [facility] 00:00:00 [facility] Td 2017-04-12 Completed [facility] 00:00:00 [facility] Td 2017-04-12 Completed [facility] 00:00:00 [facility] Td 2017-04-12 Completed [facility] 00:00:00 [facility] Td 2017-04-12 Completed [facility] 00:00:00 [facility] Td 2017-04-12 Completed [facility] 00:00:00 [facility] Td 2017-04-12 Completed [facility] 00:00:00 [facility] Td 2017-04-12 Completed [facility] 00:00:00 [facility] Td 2017-04-12 Completed [facility] 00:00:00 [facility] Td 2017-04-12 Completed [facility] 00:00:00 [facility] Td 2017-04-12 Completed [facility] 00:00:00 [facility] Td 2017-04-12 Completed [facility] 00:00:00 [facility] Td 2017-04-12 Completed [facility] 00:00:00 [facility] Td 2017-04-12 Completed [facility] 00:00:00 [facility] Td 2017-04-12 Completed [facility] 00:00:00 [facility] Td 2017-04-12 Completed [facility] 00:00:00 [facility] Td 2017-04-12 Completed [facility] 00:00:00 [facility] Td 2017-04-12 Completed [facility] 00:00:00 [facility] Td 2017-04-12 Completed [facility] 00:00:00 [facility] Td 2017-04-12 Completed [facility] 00:00:00 [facility] Td 2017-04-12 Completed [facility] 00:00:00 [facility] Td 2017-04-12 Completed [facility] 00:00:00 [facility] Td 2017-04-12 Completed [facility] 00:00:00 [facility] Td 2017-04-12 Completed [facility] 00:00:00 [facility] Td 2017-04-12 Completed [facility] 00:00:00 [facility] Td 2017-04-12 Completed [facility] 00:00:00 [facility] Td 2017-04-12 Completed [facility] 00:00:00 [facility] Td 2017-04-12 Completed [facility] 00:00:00 [facility] Td 2017-04-12 Completed [facility] 00:00:00 [facility] Td 2017-04-12 Completed [facility] 00:00:00 [facility] Td 2017-04-12 Completed [facility] 00:00:00 [facility] Td 2017-04-12 Completed [facility] 00:00:00 [facility] Td 2017-04-12 Completed [facility] 00:00:00 [facility] Td 2017-04-12 Completed [facility] 00:00:00 [facility] Td 2017-04-12 Completed [facility] 00:00:00 [facility] Td 2017-04-12 Completed [facility] 00:00:00 [facility] Td 2017-04-12 Completed [facility] 00:00:00 [facility] Td 2017-04-12 Completed [facility] 00:00:00 [facility] Td 2017-04-12 Completed [facility] 00:00:00 [facility] Td 2017-04-12 Completed [facility] 00:00:00 [facility] Td 2017-04-12 Completed [facility] 00:00:00 [facility] Td 2017-04-12 Completed [facility] 00:00:00 [facility] Td 2017-04-12 Completed [facility] 00:00:00 [facility] TD, NOS 2017-04-12 Completed [facility] 00:00:00 [facility] TD, NOS 2017-04-12 Completed [facility] 00:00:00 [facility] TD, NOS 2017-04-12 Completed [facility] 00:00:00 [facility] TD, NOS 2017-04-12 Completed [facility] 00:00:00 [facility] TD, NOS 2017-04-12 Completed [facility] 00:00:00 [facility] TD, NOS 2017-04-12 Completed [facility] 00:00:00 [facility] TD, NOS 2017-04-12 Completed [facility] 00:00:00 [facility] TD, NOS 2017-04-12 Completed [facility] 00:00:00 [facility] TD, NOS 2017-04-12 Completed [facility] 00:00:00 [facility] TD, NOS 2017-04-12 Completed [facility] 00:00:00 [facility] TD, NOS 2017-04-12 Completed [facility] 00:00:00 [facility] TD, NOS 2017-04-12 Completed [facility] 00:00:00 [facility] TD, NOS 2017-04-12 Completed [facility] 00:00:00 [facility] TD, NOS 2017-04-12 Completed [facility] 00:00:00 [facility] TD, NOS 2017-04-12 Completed [facility] 00:00:00 [facility] TD, NOS 2017-04-12 Completed [facility] 00:00:00 [facility] TD, NOS 2017-04-12 Completed [facility] 00:00:00 [facility] TD, NOS 2017-04-12 Completed [facility] 00:00:00 [facility] TD, NOS 2017-04-12 Completed [facility] 00:00:00 [facility] TD, NOS 2017-04-12 Completed [facility] 00:00:00 [facility] TD, NOS 2017-04-12 Completed [facility] 00:00:00 [facility] TD, NOS 2017-04-12 Completed [facility] 00:00:00 [facility] TD, NOS 2017-04-12 Completed [facility] 00:00:00 [facility] TD, NOS 2017-04-12 Completed [facility] 00:00:00 [facility] TD, NOS 2017-04-12 Completed [facility] 00:00:00 [facility] TD, NOS 2017-04-12 Completed [facility] 00:00:00 [facility] TD, NOS 2017-04-12 Completed [facility] 00:00:00 [facility] TD, NOS 2017-04-12 Completed [facility] 00:00:00 [facility] TD, NOS 2017-04-12 Completed [facility] 00:00:00 [facility] TD, NOS 2017-04-12 Completed [facility] 00:00:00 [facility] TD, NOS 2017-04-12 Completed [facility] 00:00:00 [facility] TD, NOS 2017-04-12 Completed [facility] 00:00:00 [facility] TD, NOS 2017-04-12 Completed [facility] 00:00:00 [facility] TD, NOS 2017-04-12 Completed [facility] 00:00:00 [facility] TD, NOS 2017-04-12 Completed [facility] 00:00:00 [facility] TD, NOS 2017-04-12 Completed [facility] 00:00:00 [facility] TD, NOS 2017-04-12 Completed [facility] 00:00:00 [facility] TD, NOS 2017-04-12 Completed [facility] 00:00:00 [facility] TD, NOS 2017-04-12 Completed [facility] 00:00:00 [facility] TD, NOS 2017-04-12 Completed [facility] 00:00:00 [facility] TD, NOS 2017-04-12 Completed [facility] 00:00:00 [facility] TD, NOS 2017-04-12 Completed [facility] 00:00:00 [facility] TD, NOS 2017-04-12 Completed [facility] 00:00:00 [facility] TD, NOS 2017-04-12 Completed [facility] 00:00:00 [facility] TD, NOS 2017-04-12 Completed [facility] 00:00:00 [facility] Vital Signs Vital Name Observation Time Observation Value Comments Source Systolic blood 2022-08-11 20:15:00 123 mm[Hg] Univer sity of pressure [facility] Diastolic blood 2022-08-11 20:15:00 83 mm[Hg] Unive rsity of [facility] Heart rate 2022-08-11 20:15:00 80 /min [facility] Oxygen saturation in 2022-08-11 20:15:00 98 /min [facility] Arterial blood by [facility] Pulse oximetry Branch Body temperature 2022-08-11 16:45:00 36.61 Suzette [facility] Respiratory rate 2022-08-11 16:45:00 18 /min [facility] Body weight 2022-08-10 18:00:00 102.921 kg [facility] BMI 2022-08-10 18:00:00 40.20 kg/m2 [facility] Body height 2022-08-09 06:30:00 160 cm [facility] Systolic blood 2022-08-04 17:42:00 132 mm[Hg] Univer sity of pressure [facility] Diastolic blood 2022-08-04 17:42:00 84 mm[Hg] Unive rsity of pressure [facility] Heart rate 2022-08-04 17:42:00 78 /min [facility] Body temperature 2022-08-04 17:42:00 36.39 Suzette Univ ersity [facility] Respiratory rate 2022-08-04 17:42:00 18 /min Univ ersity [facility] Body height 2022-08-04 17:42:00 160 cm [facility] Body weight 2022-08-04 17:42:00 100.699 kg [facility] BMI 2022-08-04 17:42:00 39.33 kg/m2 [facility] Oxygen saturation in 2022-08-04 17:42:00 100 /min [facility] Arterial blood by [place] [employer] [facility] Pulse oximetry Branch Systolic blood 2022-08-03 14:06:00 150 mm[Hg] Univer sity of pressure [facility] Diastolic blood 2022-08-03 14:06:00 100 mm[Hg] Unive rsity of pressure [facility] Heart rate 2022-08-03 14:06:00 81 /min [facility] Body temperature 2022-08-03 14:06:00 36.5 Suzette Univ ersity [facility] Respiratory rate 2022-08-03 14:06:00 22 /min Univ ersity of [facility] Body height 2022-08-03 14:06:00 160 cm [facility] Body weight 2022-08-03 14:06:00 100.699 kg [facility] BMI 2022-08-03 14:06:00 39.33 kg/m2 [facility] Oxygen saturation in 2022-08-03 14:06:00 100 /min [facility] Systolic blood 2022-07-27 16:39:00 111 mm[Hg] Univer sity of pressure [facility] Diastolic blood 2022-07-27 16:39:00 73 mm[Hg] Unive rsity of pressure [facility] Heart rate 2022-07-27 16:39:00 81 /min [facility] Body temperature 2022-07-27 16:39:00 35.83 Suzette [facility] ersity of [facility] Body height 2022-07-27 16:39:00 160 cm [facility] Body weight 2022-07-27 16:39:00 99.791 kg [facility] BMI 2022-07-27 16:39:00 38.97 kg/m2 Universi ty of [facility] Systolic blood 2022-07-17 18:17:00 120 mm[Hg] Univer sity of pressure [facility] Diastolic blood 2022-07-17 18:17:00 75 mm[Hg] Unive rsity of pressure [facility] Heart rate 2022-07-17 18:17:00 76 /min Universi ty of [facility] Body temperature 2022-07-17 18:17:00 36.89 Suzette [facility] ersity of [facility] Respiratory rate 2022-07-17 18:17:00 18 /min [facility] ersity of [facility] Body height 2022-07-17 18:17:00 160 cm Universi ty of [facility] Body weight 2022-07-17 18:17:00 100.699 kg Universi ty of [facility] BMI 2022-07-17 18:17:00 39.33 kg/m2 Universi ty of [facility] Oxygen saturation in 2022-07-17 18:17:00 99 /min [place] Arterial blood by [facility] Pulse oximetry Branch Body weight 2022-05-29 20:39:00 102.513 kg [facility] BMI 2022-05-29 20:39:00 40.03 kg/m2 [facility] Systolic blood 2022-05-29 20:39:00 130 mm[Hg] [facility] pressure Medicine Diastolic blood 2022-05-29 20:39:00 70 mm[Hg] [facility] pressure Medicine Body height 2022-05-29 20:39:00 160 cm [facility] Systolic blood 2022-05-03 19:29:00 115 mm[Hg] Univer sity of pressure [facility] Diastolic blood 2022-05-03 19:29:00 79 mm[Hg] Unive rsity of pressure [facility] Heart rate 2022-05-03 19:29:00 87 /min [facility] Body temperature 2022-05-03 19:29:00 37.56 Suzette [facility] ersity [facility] Body height 2022-05-03 19:29:00 160 cm [facility] Body weight 2022-05-03 19:29:00 103.42 kg [facility] BMI 2022-05-03 19:29:00 40.39 kg/m2 [facility] Oxygen saturation in 2022-05-03 19:29:00 98 /min [facility] Arterial blood by [place] [employer] [facility] Pulse oximetry Branch Systolic blood 2022-05-02 18:24:00 111 mm[Hg] Univer sity of pressure [facility] Diastolic blood 2022-05-02 18:24:00 69 mm[Hg] Unive rsity of pressure [facility] Heart rate 2022-05-02 18:24:00 87 /min [facility] Body temperature 2022-05-02 18:24:00 36.56 Suzette Univ [facility] Respiratory rate 2022-05-02 18:24:00 18 /min Univ ersity of [facility] Body height 2022-05-02 18:24:00 160 cm [facility] Body weight 2022-05-02 18:24:00 103.42 kg [facility] BMI 2022-05-02 18:24:00 40.39 kg/m2 [facility] Oxygen saturation in 2022-05-02 18:24:00 97 /min [facility] Arterial blood by [employer] janet Pulse oximetry Branch Systolic blood 2022-05-02 00:30:01 130 mm[Hg] Univer sity of pressure [facility] Diastolic blood 2022-05-02 00:30:01 94 mm[Hg] Unive rsity of pressure [facility] Heart rate 2022-05-02 00:30:01 90 /min [facility] Respiratory rate 2022-05-02 00:30:01 18 /min Univ ersity of [facility] Oxygen saturation in 2022-05-02 00:30:01 100 /min [facility] of Arterial blood by [employer] janet Pulse oximetry Branch Body temperature 2022-05-01 22:07:00 37.06 Suzette Univ ers[facility] Body height 2022-05-01 22:07:00 160 cm [facility] Body weight 2022-05-01 22:07:00 103.42 kg [facility] BMI 2022-05-01 22:07:00 40.39 kg/m2 [facility] Systolic blood 2022-04-26 16:00:00 139 mm[Hg] Univer sity of pressure [facility] Diastolic blood 2022-04-26 16:00:00 100 mm[Hg] Unive rsity of pressure [facility] Heart rate 2022-04-26 16:00:00 69 /min [facility] Oxygen saturation in 2022-04-26 16:00:00 98 /min [facility] Arterial blood by [place] [employer] [facility] o[facility] Respiratory rate 2022-04-26 15:45:00 16 /min Univ ersity of [facility] Systolic blood 2022-04-21 14:20:00 112 mm[Hg] Univer sity of pressure [facility] Diastolic blood 2022-04-21 14:20:00 80 mm[Hg] Unive rsity of pressure [facility] Heart rate 2022-04-21 14:20:00 77 /min [facility] Body temperature 2022-04-21 14:20:00 36.28 Suzette Univ [facility] Respiratory rate 2022-04-21 14:20:00 18 /min Univ ersity of [facility] Body height 2022-04-21 14:20:00 160 cm [facility] Body weight 2022-04-21 14:20:00 102.967 kg [facility] BMI 2022-04-21 14:20:00 40.21 kg/m2 [facility] Oxygen saturation in 2022-04-21 14:20:00 97 /min [facility] of Arterial blood by [employer] Pulse oximetry Branch Systolic blood 2022-04-19 16:17:00 134 mm[Hg] Univer sity of pressure [facility] Diastolic blood 2022-04-19 16:17:00 88 mm[Hg] Unive rsity of pressure [facility] Heart rate 2022-04-19 16:17:00 86 /min [facility] Body temperature 2022-04-19 16:17:00 36.89 Suzette Univ ers[facility] Respiratory rate 2022-04-19 16:17:00 16 /min Univ ersity of [facility] Body height 2022-04-19 16:17:00 160 cm [facility] Body weight 2022-04-19 16:17:00 102.967 kg [facility] BMI 2022-04-19 16:17:00 40.21 kg/m2 [facility] Oxygen saturation in 2022-04-19 16:17:00 98 /min [facility] Arterial blood by [place] [employer] janet Pulse oximetry Branch Systolic blood 2022-04-07 16:14:00 113 mm[Hg] Univer sity of pressure [facility] Diastolic blood 2022-04-07 16:14:00 74 mm[Hg] Unive rsity of pressure [facility] Heart rate 2022-04-07 16:14:00 88 /min [facility] Body temperature 2022-04-07 16:14:00 36.17 Suzette Univ ersity [facility] Respiratory rate 2022-04-07 16:14:00 18 /min Univ ersity of [facility] Body weight 2022-04-07 16:14:00 102.059 kg [facility] BMI 2022-04-07 16:14:00 39.87 kg/m2 [facility] Oxygen saturation in 2022-04-07 16:14:00 98 /min [facility] Arterial blood by [place] [employer] [facility] Pulse oximetry Branch Systolic blood 2022-03-31 16:17:00 114 mm[Hg] Univer sity of pressure [facility] Diastolic blood 2022-03-31 16:17:00 69 mm[Hg] Unive rsity of pressure [facility] Heart rate 2022-03-31 16:17:00 79 /min [facility] Body temperature 2022-03-31 16:17:00 36.72 Suzette Univ [facility] Respiratory rate 2022-03-31 16:17:00 16 /min Univ ersity of [facility] Oxygen saturation in 2022-03-31 16:17:00 98 /min [facility] Arterial blood by [facility] Pulse oximetry Branch Systolic blood 2022-03-24 16:20:00 119 mm[Hg] Univer sity of pressure [facility] Diastolic blood 2022-03-24 16:20:00 62 mm[Hg] Unive rsity of pressure [facility] Heart rate 2022-03-24 16:20:00 77 /min [facility] Body temperature 2022-03-24 16:20:00 36.67 Suzette Univ [facility] Respiratory rate 2022-03-24 16:20:00 16 /min Univ ersity of [facility] Oxygen saturation in 2022-03-24 16:20:00 98 /min [facility] Arterial blood by [facility] Pulse oximetry Branch Systolic blood 2022-03-22 13:18:00 108 mm[Hg] [facility] Medicine Diastolic blood 2022-03-22 13:18:00 78 mm[Hg] [facility] Medicine Heart rate 2022-03-22 13:18:00 73 /min [facility] Body height 2022-03-22 13:18:00 160 cm [facility] Body weight 2022-03-22 13:18:00 102.967 kg [facility] BMI 2022-03-22 13:18:00 40.21 kg/m2 [facility] Systolic blood 2022-03-15 16:42:00 114 mm[Hg] Univer sity of pressure [facility] Diastolic blood 2022-03-15 16:42:00 59 mm[Hg] Unive rsity of pressure [facility] Heart rate 2022-03-15 16:42:00 75 /min [facility] Respiratory rate 2022-03-15 16:42:00 18 /min Univ ersity of [facility] Oxygen saturation in 2022-03-15 16:42:00 95 /min [facility] Arterial blood by [facility] Pulse oximetry Branch Body temperature 2022-03-15 16:12:00 36.22 Suzette Univ ers[facility] Body height 2022-03-08 15:04:00 160 cm [facility] Body weight 2022-03-08 15:04:00 102.1 kg [facility] BMI 2022-03-08 15:04:00 39.88 kg/m2 [facility] Systolic blood 2022-03-15 13:27:00 147 mm[facility]Hg[facility] Diastolic blood 2022-03-15 13:27:00 81 mm[facility]Hg[facility] 2022-03-15 13:27:00 85 /min [facility] Body temperature 2022-03-15 13:27:00 36.22 [facility] 2022-03-15 13:27:00 18 /min [facility] Body height 2022-03-08 15:04:00 160 cm [facility] Body weight 2022-03-08 15:04:00 102.1 kg [facility] BMI 2022-03-08 15:04:00 39.88 kg/m2 [facility] HEIGHT 2022-07-04 11:30:00 157.5 cm WEIGHT 2022-07-04 11:30:00 99.791 kg Body height 2022-07-04 11:30:00 157.5 cm [facility] Body weight 2022-07-04 11:30:00 99.791 kg [facility] BMI 2022-07-04 11:30:00 40.24 kg/m2 [facility] Procedures Procedure Date / Time Performing Clinician Source Performed BLOOD CULTURE SCREEN 2022-08-10 21:54:00 Shelby Marquez [facility] BLOOD CULTURE SCREEN 2022-08-10 20:49:00 [place] [facility] [facility] BASIC METABOLIC PANEL 2022-08-10 09:30:00 Junior Alfaro [facility] (NA, K, CL, CO2, GLUCOSE, Medica l Branch BUN, CREATININE, CA) CBC WITH DIFF 2022-08-10 09:30:00 Corin [facility] MRSA / MSSA SCREEN BY 2022-08-10 02:20:00 Shelby Marquez [facility], [facility] RESPIRATORY PANEL BY PCR 2022-08-09 22:31:00 Shelby Marquez [facility] PROCALCITONIN 2022-08-09 22:30:00 Jimmy [facility] PNEUMOCOCCAL ANTIGEN 2022-08-09 22:25:00 Jimmy [facility] TRANSTHORACIC ECHO (TTE) 2022-08-09 17:46:00 Edelmira Kelly [facility] COMPLETE [employer] URINE CULTURE 2022-08-09 12:45:00 Abu [facility], [facility] BLOOD CULTURE SCREEN 2022-08-09 09:18:00 Abu Ather, [facility] TROPONIN I 2022-08-09 09:18:00 Abu [facility], [facility] BLOOD CULTURE WORKUP 2022-08-09 09:18:00 Abu [facility], [facility] GRAM POSITIVE BLOOD 2022-08-09 09:18:00 u [facility], [facility] PROBE-ANAEROBIC HOME HEALTH - OTHER 2022-08-09 06:01:00 Doctor Unassigned, [facility] [place] [facility] Branch CT ABDOMEN PELVIS W 2022-08-09 00:50:00 Chloe Bailey [facility] TROPONIN I 2022-08-09 00:42:00 Chloe Bailey [facility] URINALYSIS 2022-08-08 23:17:00 Chloe Bailey [facility] XR CHEST 1 VW 2022-08-08 22:37:29 Chloe Bailey [facility] HB ECG ROUTINE & RHYTHM 2022-08-08 21:41:01 Chloe Bailey [facility] STRIP [facility] LIPASE 2022-08-08 21:32:00 Chloe Bailey [facility] TROPONIN I 2022-08-08 21:32:00 Chloe Bailey [facility] COMP. METABOLIC PANEL 2022-08-08 21:32:00 Chloe Bailey [facility] ([id number]) Medical Branch CBC WITH DIFF 2022-08-08 21:32:00 Chloe Bailey Baltic o f [facility] RAPID INFLUENZA A/B 2022-08-08 21:32:00 Chloe Bailey [facility] Branch COVID-19 (ID NOW RAPID 2022-08-08 21:32:00 Chloe Bailey [facility] TESTING) Medical Branch LAB ONLY COVID 2022-08-08 21:32:00 Chloe Bailey Baltic o [facility] INTERPRETATION [facility] CONSENT/REFUSAL FOR 2022-08-08 20:19:45 [facility] DIAGNOSIS AND TREATMENT [place] [place] HOME HEALTH 485 2022-08-08 06:01:00 Doctor Licha [facility] [place] [facility] HOME HEALTH - OTHER 2022-08-04 06:01:00 Doctor Hurt [facility] [place] CT HEAD WO CONTRAST 2022-08-03 14:51:48 Elaine Toure [facility] CONSENT/REFUSAL FOR 2022-08-03 14:02:22 Doctor Hurt [facility] DIAGNOSIS AND TREATMENT [facility] [place] INSURANCE CORRESPONDENCE 2022-08-01 06:01:00 Doctor Hurt [facility] [place] PATIENT QUESTIONNAIRE 2022-07-27 06:01:00 Doctor Hurt [facility] [place] [facility] HOME HEALTH - OTHER 2022-07-18 06:01:00 Doctor [facility] [place] XR CERVICAL SPINE 5 VW 2022-07-17 19:03:06 Madison Hyatt [facility] XR SHOULDER 2+ VW LEFT 2022-07-17 19:03:06 Madison Hyatt [facility] EXTERNAL PROVIDER RECORDS 2022-07-17 06:01:00 Doctor Hurt [facility] [place] [facility] HOME HEALTH - OTHER 2022-07-04 06:01:00 [facility] [place] [facility] - OTHER 2022-06-26 06:01:00 Ian Delgado [facility] [place] [facility] HOME HEALTH - OTHER 2022-06-13 06:01:00 Doctor [facility] [place] [facility] HOME HEALTH - OTHER 2022-05-30 06:01:00 Doctor [facility] [place] [facility] HOME HEALTH - OTHER 2022-05-03 05:01:00 Doctor Hurt [facility] [place] [facility] INSURANCE CORRESPONDENCE 2022-05-02 05:01:00 Doctor Hurt [facility] [place] [facility] IR TUNNELED OR 2022-04-26 15:35:17 Rabia Tanner [facility] NON-TUNNELED CVA WITH A Medical Br anch PORT/PUMP CENTRAL/PERIPHERAL HOME HEALTH - OTHER 2022-04-25 05:01:00 Doctor [facility] Name Medical Branch REFERRAL- 2022-04-24 05:01:00 Doctor Hurt [facility] REQUEST/RESPONSE [place] CT ANGIOGRAM NECK 2022-04-21 16:31:40 Radhames Acevedo [facility] Medical Branch CT ANGIOGRAM CHEST 2022-04-21 16:29:40 Radhames Acevedo [facility] Medical Branch MEDICATION CORRESPONDENCE 2022-04-20 05:01:00 Doctor Hurt [facility] [place] [facility] HOME HEALTH - OTHER 2022-04-18 05:01:00 Doctor Hurt [facility] [place] [facility] HOME HEALTH 485 2022-04-10 05:01:00 Doctor Licha, [facility] [place] [facility] PHOSPHORUS 2022-04-07 16:40:00 Rabia Tanner [facility] A Medical Branch TRIGLYCERIDES 2022-04-07 16:40:00 Rabia Tanner [facility] A Medical Branch MAGNESIUM 2022-04-07 16:40:00 Rabia Tanner [facility] A Medical Branch COMP. METABOLIC PANEL 2022-04-07 16:40:00 Rabia Tanner [facility] ([id number]) A Medical Branch CBC WITH DIFF 2022-04-07 16:40:00 Rabia Tanner [facility] A Medical Branch PHOSPHORUS 2022-03-31 16:37:00 Rabia Tanner [facility] A Medical Branch TRIGLYCERIDES 2022-03-31 16:37:00 Rabia Tanner [facility] A Medical Branch MAGNESIUM 2022-03-31 16:37:00 Rabia Tanner [facility] A Medical Branch COMP. METABOLIC PANEL 2022-03-31 16:37:00 Rabia Tanner [facility] ([id number]) A Medical Branch CBC WITH DIFF 2022-03-31 16:37:00 Rabia Tanner [facility] A Medical Branch REFERRAL- 2022-03-29 05:01:00 Doctor Licha, [facility] REQUEST/RESPONSE [place] [facility] PHOSPHORUS 2022-03-24 16:36:00 Rabia Tanner [facility] A Medical Branch TRIGLYCERIDES 2022-03-24 16:36:00 Rabia Tanner [facility] A Medical Branch MAGNESIUM 2022-03-24 16:36:00 Rabia Tanner [facility] Medical Branch COMP. METABOLIC PANEL 2022-03-24 16:36:00 Rabia Tanner [facility] ([id number]) A Medical Branch CBC WITH DIFF 2022-03-24 16:36:00 Rabia Tanner [facility] Medical [place] PANCREATIC ELASTASE - 2022-03-22 09:16:19 Estelle [facility] Medicine HEMAPORT REMOVAL 2022-03-15 14:55:00 Isis Kerns [facility] Medical Branch DAY SURGERY - ADC 2022-03-15 05:01:00 Doctor Kojoigned, [facility] [place] [facility] CONSENT/REFUSAL FOR 2022-03-14 16:26:11 Doctor Unasunshine, [facility] DIAGNOSIS AND TREATMENT [place] [facility] CONSENT/REFUSAL FOR 2022-03-14 16:26:11 Doctor Unassigned, [facility] DIAGNOSIS AND TREATMENT [place] [facility] ASSIGNMENT OF BENEFITS 2022-03-14 16:25:42 Doctor Unassigned, [facility] [place] [facility] ASSIGNMENT OF BENEFITS 2022-03-14 16:25:42 Doctor Unassigned, Un [facility] [place] [facility] Plan of Care Planned Activity Planned Date Details Comments Source Future Scheduled 2023-07-[address] [facility] Test 00:00:00 Counseling and Medical Cente r Screening (12+) [code = Tobacco Cessation Counseling and Screening (12+)] Future Scheduled 2022-07-[address] [facility] Test 00:00:00 (12+) [code = Medical Center DEPRESSION SCREENING (12+)] Future Scheduled 2022-05-30 Screening for malignant [facility] Test 08:11:57 neoplasm of breast of Medici ne (procedure) [code = 600736417] Future Scheduled 2022-05-30 COVID-19 Vaccine (#1) Ba [facility] Test 08:11:57 [code = COVID-19 of Medicine Vaccine (#1)] Future Scheduled 2022-05-30 BMI FOLLOW UP PLAN [facility] Test 08:11:57 [code = BMI FOLLOW UP of Med icine PLAN] Future Scheduled 2022-05-30 Hepatitis C screening Ba [facility] Test 08:11:57 (procedure) [code = of Medic ine 738496091] Future Scheduled 2022-05-30 Human immunodeficiency [facility] Test 08:11:57 virus screening of Medicine (procedure) [code = 854199611] Future Scheduled 2022-05-30 Screening for malignant [facility] Test 08:11:57 neoplasm of cervix of Medici ne (procedure) [code = 550661745] Future Scheduled 2022-05-30 FLU VACCINE > 6 MONTHS [employer] Test 08:11:57 [code = FLU VACCINE > 6 of M edicine MONTHS] Future Scheduled 2022-05-30 TETANUS SHOT (ADULT) [facility] Test 08:11:57 [code = TETANUS SHOT of Medi cine (ADULT)] Future Scheduled 2022-05-29 EGD W/G-POEM [code = 1 [facility] [id number]] starting of Medicine 05/29/2022 until 11/26/2022 Future Scheduled 2022-03-22 PANCREATIC ELASTASE - Ordered: [facility] Test 09:16:19 FECAL [code = 29678-8] 03/22/2022 of Me dicine Future Scheduled 2022-03-22 EGD W/G-POEM [code = 1 [facility]:16[facility]19 14297410] starting of Medicine 03/22/2022 until 09/19/2022 Future Scheduled 2022-03-22 Screening for malignant [facility] Test 09:05:22 neoplasm of breast of Medici ne (procedure) [code = 851639959] Future Scheduled 2022-03-22 COVID-19 Vaccine (#1) Ba or [facility] Test 09:05:22 [code = COVID-19 of Medicine Vaccine (#1)] Future Scheduled 2022-03-22 BMI FO[facility] PLAN [facility] 09:05:22 [code = BMI FOLLOW UP of Med icine PLAN] Future Scheduled 2022-03-22 Hepatitis C screening Ba [facility] Test 09:05:22 (procedure) [code = of Medic ine 997913554] Future Scheduled 2022-03-22 [facility] immunodeficiency [facility] 09:05:22 virus screening of Medicine (procedure) [code = 569774191] Future Scheduled 2022-03-22 Screening for malignant [facility] Test 09:05:22 neoplasm of cervix of Medici ne (procedure) [code = 143905002] Future Scheduled 2022-03-22 MEDICARE AWV (Initial) [facility] 09:05:22 [code = MEDICARE AWV of Medi cine (Initial)] Future Scheduled 2022-03-22 FLU VACCINE > 6 MONTHS [employer] Test 09:05:22 [code = FLU VACCINE > 6 of M edicine MONTHS] Future Scheduled 2022-03-22 TETANUS SHOT (ADULT) [facility] Test 09:05:22 [code = TETANUS SHOT of Medi cine (ADULT)] Future Scheduled 2022-03-09 INFLUENZA VACCINE (#1[facility] [code = INFLUENZA Medical Ce nter VACCINE (#1)] Future Scheduled 2003 Screening for malignant [facility] Test 00:00:00 neoplasm of cervix Medical C enter (procedure) [code = 875100232] Future Scheduled 2002 Lipid panel (procedure) [facility] Test 00:00:00 [code = 10478206] Medical Ce nter Future Scheduled 2001 DTAP/TDAP/TD VACCINES [facility] Test 00:00:00 (1 - Tdap) [code = Medical C enter DTAP/TDAP/TD VACCINES (1 - Tdap)] Future Scheduled 2000-02-05 HEPATITIS C SCREENING [facility] Test 00:00:00 [code = HEPATITIS C Medical Center SCREENING] Future Scheduled 1982 COVID-19 VACCINE (#1) [facility] Test 00:00:00 [code = COVID-[address] VACCINE (#1)] Encounters Start End Encounter Admission Attending Care Care Encounter Source Date/Time Date/Time Type Type Clinicians Facility Department ID 2022-04-06 Outpatient W [facility] [id number] [facility] 13:10:43 0225 [facility] 2022-03-07 Outpatient Nagi [facility] [id number] Univers 14:58:54 ISIS [facility] 2021-11-30 Outpatient Nagi [facility] [id number] Univers 11:44:30 ISIS [facility] 2021-05-09 Outpatient Nagi [facility] [id number] Univers 17:01:42 ISIS [facility] 2021-05-08 Outpatient Nagi [facility] [id number] Univers 02:32:31 LULU [facility] 2021-05-05 Emergency [facility] [id number] Univers 11:30:57 [facility] 2022-09-14 2022-09-14 Outpatient Nagi SANTOS [facility] [id number] Univers 00:00:00 00:00:00 MICHELLE [facility] 2022-09-05 2022-09-05 Outpatient Nagi ROBINS [facility] [id number] Univers 14:10:00 14:10:00 PEREZ [facility] 2022-08-16 2022-08-16 Outpatient Nagi BARBOZA [facility] [id number] Univers 15:00:00 15:00:00 CHANA silverman [facility] 2022-08-08 2022-08-11 Inpatient X [facility] GARO [id number] Univers 14:33:00 15:27:00 JUNIOR itmervin of [facility] 2022-08-08 2022-08-11 Hospital Chloe Bailey Keyona [facility] 1.2.840.11 [id number] Univers 14:33:00 15:27:00 [facility] 350.1.13. 10 ity of RafaelbellaJunior CLEAR 4.2.7.2.686 [facility] [id number] [place] [address] Branch ([facility]) 2022-08-09 2022-08-09 Telephone Nancy [facility] 1.2.840.114 [id number] Univers 00:00:00 00:00:00 Alex ROSEN 350.1.13.10 i ty of [place] 4.2.7.2.686 [facility] [id number] Ar dic[address] 2022-08-08 2022-08-08 Outpatient R DALE [facility] [id number] Univers 15:00:00 15:00:00 MADISON kinney [facility] 2022-08-08 2022-08-08 Outpatient [facility]ASVIR [facility] [id number] [facility] 00:00:00 00:00:00 JOSHUA townsend of Medicin e 2022-08-08 2022-08-08 Patient Dale [facility] 1.2.840.114 [id number] Univers 00:00:00 00:00:00 Secure Msg Madison MULTISPEC 350.1.13.10 ity of IALTY 4.2.7.2.686 [facility] [id number] [facility] [place] [address] Branch [facility] 2022-08-07 2022-08-07 Outpatient Nagi BARBOZA [facility] [id number] Univers 14:00:00 14:00:00 CHANA kinney o f [facility] 2022-08-07 2022-08-07 Telephone Dale [facility] [id number] Univers 00:00:00 00:00:00 Madison ROSEN 350.1.13.10 i ty of [place]7.2.[place] [id number] Ar dical NAL 044 [facility] 2022-08-04 2022-08-04 Office Michelle Santos [facility] 1.2.840 .114 [id number] Univers 11:30:00 12:00:00 Visit China Posadas [facility] 350.1.13.10 ity of [place].2.7.2.686 [place] [id number] [address] OFFICE BUILDING 2022-08-04 2022-08-04 Outpatient [facility] [id number] Univers 11:30:00 11:30:00 CHINA [facility] 2022-08-04 2022-08-04 Orders Doctor LULU 1.2.840.114 [id number] Univers 00:00:00 00:00:00 Only Unassigned, PENELOPE 350.1.13.10 ity of [place] [facility] 4.2.7.2.686 Ernst as [id number] [facility] [address] [place] 2022-08-03 2022-08-03 Outpatient [facility] [id number] Univers 13:00:00 13:00:00 JESS [facility] 2022-08-03 2022-08-03 Emergency X [facility] ERT [id number] Univers 08:07:00 09:43:00 ELAINE [facility] 2022-08-03 2022-08-03 Emergency Mes[facility] 1.2.450.559 [id number] Univers 08:07:00 09:43:00 Elaine ROSEN 350.1.13.10 i ty of [place].7.2.[place] [id number] [facility] [address] [place] 2022-08-03 2022-08-03 Telephone Dale [facility] 1.2.477.172 [id number] Univers 00:00:00 00:00:00 Madison ROSEN 350.1.13.10 i ty of [place].7.2.[place] [id number] Ar dical NAL 044 [facility] 2022-08-01 2022-08-01 Orders Doctor LULU 1.2.840.114 [id number] Univers 00:00:00 00:00:00 Only Unassigned, PENELOPE 350.1.13.10 ity of [place] [facility] 4.2.7.2.686 Ernst as [phone] [address] 2022-07-27 2022-07-27 Outpatient R MASOOD [facility] [id number] Univers 10:50:00 11:06:44 JUAN ity of [facility] 2022-07-27 2022-07-27 Office [facility] [id number] Univers 10:50:00 11:06:44 Visit Juan SPECIALTY 350.1.13.10 ity [facility] 4.2.7.2.[place] C[place] AT [id number] [address] 2022-07-27 2022-07-27 Orders Doctor LULU 1.2.840.114 [id number] Univers 00:00:00 00:00:00 Only Unassigned, PENELOPE 350.1.13.10 ity of [place] [facility] 4.2.7.2.686 Ernst as [id number] [address] 2022-07-26 2022-07-26 Telephone [facility] 1.2.855.772 [id number] Univers 00:00:00 00:00:00 [place] 350.1.13.10 i ty of [place] 4[place]2.7.2.[place] [id number] Ar dical NAL 044 [facility] 2022-07-20 2022-07-20 Telephone [facility] 1.2.380.393 [id number] Univers 00:00:00 00:00:00 [place] 350.1.13.10 i ty [facility] 4.2.7.2.[place] [id number] Ar dicca NAL 044 [facility] 2022-07-19 2022-07-19 Telephone [facility] 1.2.386.730 [id number] Univers 00:00:00 00:00:00 [place] 350.1.13.10 i ty of [place] 4.2.7.2.[place] [id number] Ar dical NAL 044 [facility] 2022-07-18 2022-07-18 Patient [facility] 1.2.840.114 [id number] Univers 00:00:00 00:00:00 Secure Msg [place] MULTISPEC 350.1.13.10 ity of [place] 4.2.7.2.686 [place] CENTER [id number] [address] DIABETES [facility] 2022-07-18 2022-07-18 Patient [facility] 1.2.840.114 [id number] Univers 00:00:00 00:00:00 Secure Msg [place] MULTISPEC 350.1.13.10 ity of [place] 4.2.7.2.686 [place] C[place] [id number] [address] DIABETES CLINIC 2022-07-18 2022-07-18 Siva Tanner [facility] 1.2.840.114 [id number] Univers 00:00:00 00:00:00 Rabia ROSEN 350.1.13.10 ity of [place] 4.2.7.2.[place] [id number] Ar dical NAL [address] [place] [address] 2022-07-18 2022-07-18 Patient [facility] 1.2.840.114 [id number] Univers 00:00:00 00:00:00 Secure Msg [place] MULTISPEC 350.1.13.10 ity of [place] 4.2.7.2.686 [place] C[place] [id number] [address] DIABETES CLINIC 2022-07-18 2022-07-18 Orders Doctor LULU 1.2.840.114 [id number] Univers 00:00:00 00:00:00 Only Unassigned, PENELOPE 350.1.13.10 ity of [place] [facility] 4.2.7.2.686 Ernst as [id number] [place] [address] Branch 2022-07-17 2022-07-17 Outpatient [facility] [id number] Univers 12:40:42 23:59:00 MADISON ity of [facility] 2022-07-17 2022-07-17 Hospital [facility] 1.2.840.114 [id number] Univers 12:40:42 23:59:00 Encounter [place] ROSEN 350.1.13.10 ity of [place] 4.2.7.2.686 [place] C[place] [id number] [facility] 807 Branch 2022-07-17 2022-07-17 Office [facility] 1.2.840.114 [id number] Univers 12:30:00 12:30:47 Visit Madison ROSEN 350.1.13.10 i ty of [place] 4.2.7.2.686 [place] [id number] Ar dical NAL 044 [facility] 2022-07-17 2022-07-17 Orders Doctor LULU 1.2.840.114 [id number] Univers 00:00:00 00:00:00 Only Unassigned, PENELOPE 350.1.13.10 ity of [place] [facility] 4.2.7.2.686 Ernst as [id number] [facility] 009 Branch 2022-07-12 2022-07-12 Emergency ER [place], [facility] [id number] [place] 08:41:00 11:13:00 Vicente [id number] Replaced by [facility] 2022-07-12 2022-07-12 Telephone [facility] 1.2.840.114 [id number] Univers 00:00:00 00:00:00 Alex ROSEN 350.1.13.10 i ty of [place].7.2.[place] [id number] Ar dical NAL 044 [facility] 2022-07-12 2022-07-12 Telephone [facility] 1.2.840.114 [id number] Univers 00:00:00 00:00:00 Alex ROSEN 350.1.13.10 i ty of [place] 4[place]2.7.2.[place] [id number] Ar dical NAL 044 [facility] 2022-07-05 2022-07-05 Telephone [facility] 1.2.024.420 [id number] Univers 00:00:00 00:00:00 Claudycosme [place] 350.1.13.10 ity of [facility] 4.2.7.2.[place] [id number] Ar dical NAL 059 [facility] 2022-07-05 2022-07-05 Telephone [facility] 1.2.155.115 [id number] Univers 00:00:00 00:00:00 Chana ROSEN 350.1.13.10 ity of [facility] 4.2.7.2.[place] [id number] Ar dicca NAL 059 [facility] 2022-07-05 2022-07-05 Telephone [facility] 1.2.840.114 [id number] Univers 00:00:00 00:00:00 Alex ROSEN 350.1.13.10 i ty of [place] 4.2.7.2.[place] [id number] Ar dical NAL 044 [facility] 2022-07-04 2022-07-[address] [facility] [id number] [facility] 00:00:00 00:00:00 [facility] 2022-07-04 2022-07-04 Telephone [facility] 1.2.082.106 [id number] [facility] 00:00:00 00:00:00 Chana ROSEN 350.1.13.10 ity of [place].7.2.[place] [id number] Ar dicca NAL 059 [facility] 2022-07-04 2022-07-04 Orders Doctor LULU 1.2.840.114 [id number] Univers 00:00:00 00:00:00 Only Unassigned, PENELOPE 350.1.13.10 ity of [place] [facility] 4.2.7.2.686 Ernst as [id number] [address] 2022-06-29 2022-06-29 Telephone [facility] 1.2.840.114 [id number] Univers 00:00:00 00:00:00 Alex ROSEN 350.1.13.10 i ty of [facility] 4.2.7.2.[place] [id number] Ar dical NAL [address] [place] [address] 2022-06-26 2022-06-26 Orders Doctor LULU 1.2.840.114 [id number] Univers 00:00:00 00:00:00 Only Unassigned, PENELOPE 350.1.13.10 ity of [place] [facility] 4.2.7.2.686 Ernst as [id number] [address] 2022-06-21 2022-06-21 Telephone [facility] 1.2.840.114 [id number] Univers 00:00:00 00:00:00 Alex ROSEN 350.1.13.10 i ty of [place] 4[place]2.7.2.[place] [id number] Ar dical NAL [address] [place] [address] 2022-06-15 2022-06-15 Telephone [facility] 1.2.840.114 [id number] Univers 00:00:00 00:00:00 Alex ROSEN 350.1.13.10 i ty of [place].7.2.[place] [id number] Ar dical NAL [address] [place] [address] 2022-06-14 2022-06-14 Telephone [facility] 1.2.840.114 [id number] Univers 00:00:00 00:00:00 Alex ROSEN 350.1.13.10 i ty of [place]2.7.2.[place] [id number] Ar dical NAL [address] [place] [address] 2022-06-14 2022-06-14 Telephone [facility] 1.2.840.114 [id number] Univers 00:00:00 00:00:00 Alex ROSEN 350.1.13.10 i ty of [place] 4[place]2.7.2.[place] [id number] Ar dical NAL [address] [place] [address] 2022-06-13 2022-06-13 Orders Doctor LAWSON 1.2.840.114 [id number] Univers 00:00:00 00:00:00 Only Unassigned, PENELOPE 350.1.13.10 ity of [place] [facility] 4.2.7.2.686 Ernst as [phone] [address] 2022-06-13 2022-06-13 Telephone [facility] 1.2.840.114 [id number] Univers 00:00:00 00:00:00 Alex ROSEN 350.1.13.10 i ty [place] [id number] Ar dical NAL [address] [facility] 2022-06-09 2022-06-09 Telephone [facility] 1.2.840.114 [id number] Univers 00:00:00 00:00:00 Radhames ROSEN 350.1.13.10 it[place] PROFESSIO [id number] Ar dical NAL 044 [facility] 2022-06-09 2022-06-09 Telephone [facility] 1.2.840.114 [id number] Univers 00:00:00 00:00:00 Radhames ROSEN 350.1.13.10 ity of [place] [id number] Ar dical NAL 044 [facility] 2022-06-07 2022-06-07 Telephone [facility] 1.2.840.114 9 [id number] Univers 00:00:00 00:00:00 Alex ROSEN 350.1.13.10 i ty of [place] [id number] Ar dical NAL 044 [facility] 2022-05-31 2022-05-31 [facility]phone [facility] 1.2.840.114 9 [id number] Univers 00:00:00 00:00:00 Rabia ROSEN 350.1.13.10 ity of [place] [id number] Ar dical NAL 231 [facility] 2022-05-30 2022-05-30 Orders Doctor LAWSON 1.2.840.114 [id number] Univers 00:00:00 00:00:00 Only Unassigned, PENELOPE 350.1.13.10 ity of [place] [facility] 4.2.7.2.686 Ernst as [phone] [facility] 009 Branch 2022-05-29 2022-05-29 Office JAYE Tay 1.2.840.114 [id number] [facility] 14:30:00 16:51:32 Visit Joshua AMBULATOR 350.1.13.21 College Y 0.2.7.2.686 of [id number] [facility] 325 e 2022-05-26 2022-05-26 Telephone Tanner, [facility] 1.2.840.114 9 [id number] Univers 00:00:00 00:00:00 Rabia ROSEN 350.1.13.10 ity of [place] [id number] [facility] 044 [facility] 2022-05-25 2022-05-25 Telephone Tanner, [facility] 1.2.840.114 9 [id number] Univers 00:00:00 00:00:00 Rabia ROSEN 350.1.13.10 ity of [place] [id number] [address] 2022-05-23 2022-05-24 [facility] 1042 [id number] Univers 08:40:00 07:52:40 RABIA ity of [facility] 2022-05-23 2022-05-24 Telemedici [facility] 1.2.840.114 [id number] Univers 08:40:00 07:52:40 ne Visit Rabia ROSEN 350.1.13.10 ity of [place] [id number] Ar dic[address] 2022-05-24 2022-05-24 Telephone Tanner, [facility] 1.2.840.114 9 [id number] Univers 00:00:00 00:00:00 Rabia A [place] 350.1.13.10 ity [facility] [place] [phone] [address] 2022-05-19 2022-05-19 Telephone [facility] 1.2.840.114 9 [id number] Univers 00:00:00 00:00:00 Rabia A [place] 350.1.13.10 ity of [facility] [place] [id number] [address] 2022-05-18 2022-05-18 Outpatient [facility] [id number] Univers 10:00:00 10:00:00 MERRITT ity of [facility] 2022-05-18 2022-05-18 [facility] 1.2.840.114 9 [id number] Univers 00:00:00 00:00:00 Rabia A [place] 350.1.13.10 ity of [place] [id number] [address] 2022-05-18 2022-05-18 [facility] 1.2.840.114 9 [id number] Univers 00:00:00 00:00:00 Rabia A [place] 350.1.13.10 ity of [facility] 4.[place] [id number] [address] 2022-05-17 2022-05-17 [facility] 1.2.840.114 9 [id number] Univers 00:00:00 00:00:00 Rabia A [place] 350.1.13.10 ity of [facility] 4.2.[place].2.[place] [id number] [address] 2022-05-11 2022-05-11 [facility] 1.2.840.114 9 [id number] Univers 00:00:00 00:00:00 Rabia A [place] 350.1.13.10 ity of [place].2.[place] [id number] [facility] 231 [facility] 2022-05-09 2022-05-09 Telephone Lam [facility] 1.2.355.651 [id number] [id number] Univers 00:00:00 00:00:00 Chana SILAS 350.1.13.10 ity of [facility] 4.2.7.2.[place] [id number] [facility] 059 [facility] 2022-05-08 2022-05-08 Patient [facility] 1.2.840.114 [id number] Univers 00:00:00 00:00:00 Outreach [facility] 350.1.13.10 i ty of [place].2.7.2.686 [place] [phone] [facility] PRIMARY & 365 Branch SPECIALTY CARE 2022-05-08 2022-05-08 Telephone Flores [facility] 1.2.840.114 9 [id number] Univers 00:00:00 00:00:00 Rabia ROSEN 350.1.13.10 ity of [facility] 4.2.7.2.[place] [id number] [facility] 231 [facility] 2022-05-08 2022-05-08 Telephone [facility] 1.2.840.114 9 [id number] Univers 00:00:00 00:00:00 Rabia ROSEN 350.1.13.10 ity of [place].2.[place].2.[place] [id number] [facility] 231 [facility] 2022-05-04 2022-05-04 Telephone [facility] 1.2.840.114 9 [id number] Univers 00:00:00 00:00:00 Rabia ROSEN 350.1.13.10 ity of [place] 4.[place].2.[place] [id number] [facility] 231 [facility] 2022-05-03 2022-05-03 Outpatient R LAM [facility] [id number] Univers 14:40:00 15:02:54 CHANA warnery o f [facility] 2022-05-03 2022-05-03 Office [facility] 1.2.840.114 [id number] Univers 14:40:00 15:02:54 Visit Chana ROSEN 350.1.13.10 ity of [facility] 4.2.7.2.[place] [id number] Ar dical CARLIE 059 [facility] 2022-05-03 2022-05-03 Orders Doctor LULU 1.2.840.114 [id number] Univers 00:00:00 00:00:00 Only Unassigned, PENELOPE 350.1.13.10 ity of [place] [facility] 4.2.7.2.686 Ernst as [id number] [address] 2022-05-03 2022-05-03 Telephone Flores [facility] 1.2.840.114 9 [id number] Univers 00:00:00 00:00:00 Rabia ROSEN 350.1.13.10 ity of [facility] 4.2.7.2.[place] [id number] Ar dical CARLIE 231 [facility] 2022-05-02 2022-05-02 Outpatient R RADHAMES ACEVEDO [facility] [id number] Univers 13:00:00 14:10:50 RADHAMES ACEVEDO ity of [facility] 2022-05-02 2022-05-02 Office Curtis [facility] 1.2.840.114 [id number] Univers 13:00:00 14:10:50 Visit Radhames ROSEN 350.1.13.10 ity of [facility] 4.2.7.2.[place] [id number] Ar dical CARLIE 044 [facility] 2022-05-02 2022-05-02 Telephone Lam [facility] 1.2.370.783 1982 [id number] Univers 00:00:00 00:00:00 Chana ROSEN 350.1.13.10 ity of [facility] 4.2.7.2.[place] [id number] Ar dical NAL 059 Branch BUILDING 2022-05-02 2022-05-02 Telephone Lam, [facility] 1.2.082.601 [id number] [id number] Univers 00:00:00 00:00:00 hCana ROSEN 350.1.13.10 ity of [facility] 4.2.7.2.[place] [id number] Ar dical NAL 059 Branch BUILDING 2022-05-02 2022-05-02 Telephone Latasha, [facility] 1.2.276.969 0282 [id number] Univers 00:00:00 00:00:00 [facility] 350.1.13.10 it y of [place].2.7.2.[place] 054.2758013 [facility] 059 Branch OFFICE BUILDING 2022-05-02 2022-05-02 Patient Tanner, [facility] 1.2.840.114 [id number] [id number] Univers 00:00:00 00:00:00 Secure Msg Rabia ROSEN 350.1.13.10 ity of [place]2.[place] [phone] Ar dical NAL 044 Branch BUILDING 2022-05-02 2022-05-02 Orders Doctor LULU 1.2.840.114 [id number] Univers 00:00:00 00:00:00 Only Unassigned, PENELOPE 350.1.13.10 ity of [place] [facility] 4.2.7.2.686 Ernst as [phone] [facility] 009 Branch 2022-05-01 2022-05-01 Emergency X ANITASHIPROCK[facility] ERT [id number] Univers 17:11:00 19:32:00 MECCA ity of [facility] 2022-05-01 2022-05-01 [facility] 1.2.840.114 9 [id number] Univers 17:11:00 19:32:00 Mecca S SILAS 350.1.13.10 i ty of [place]2.7.2.[place] [id number] [facility] 084 Branch 2022-05-01 2022-05-01 [facility] 1.2.207.717 [id number] [id number] Univers 14:53:44 17:10:00 Encounter Radhames ROSEN 350.1.13.10 ity of [facility] 4.2.7.2.[place] [id number] [place] 890776 [place] 2022-05-01 2022-05-01 Outpatient R RADHAMES ACEVEDO [facility] [id number] Univers 00:00:00 17:10:00 RADHAMES ACEVEDO [facility] 2022-05-01 2022-05-01 Telephone [facility] 1.2.840.114 9 [id number] Univers 00:00:00 00:00:00 Rabia ROSEN 350.1.13.10 ity of [place].2.[place] [facility] [id number] Ar dical NAL 044 [facility] 2022-04-28 2022-04-28 Outpatient R [facility] 1042 [id number] Univers 11:00:00 11:00:00 [facility] 2022-04-26 2022-04-26 Outpatient R [facility] 1042 [id number] Univers 08:00:19 23:59:00 [facility] 2022-04-26 2022-04-26 [facility] 1.2.840.114 [id number] Univers 08:00:19 23:59:[address] [facility] 350.1.13.10 ity of [facility] 4.2.7.2.[place] [id number] [address] 2022-04-26 2022-04-26 Telephone [facility] 1.2.840.114 9 [id number] Univers 00:00:00 00:00:00 Rabia ROSEN 350.1.13.10 ity of [facility] 4.2.7.2.[place] [id number] Ar dical NAL 231 [facility] 2022-04-25 2022-04-25 Orders Doctor LAWSON 1.2.840.114 [id number] Univers 00:00:00 00:00:00 Only Unassigned, PENELOPE 350.1.13.10 ity of [place] [facility] 4.2.7.2.686 Ernst as [id number] [address] 2022-04-24 2022-04-24 Orders Doctor LULU 1.2.840.114 [id number] Univers 00:00:00 00:00:00 Only Unassigned, PENELOPE 350.1.13.10 ity of [place] [facility] 4.2.7.2.686 Ernst as [id number] [address] 2022-04-24 2022-04-24 Patient [facility] 1.2.840.114 [id number] Univers 00:00:00 00:00:00 Secure Msg Radhames ROSEN 350.1.13.10 ity of [place] [id number] Ar dical [facility] 044 Branch [facility] 2022-04-21 2022-04-21 [facility] 1.2.987.101 [id number] Univers 10:30:05 23:59:00 Encounter Radhames ROSEN 350.1.13.10 ity of [place] [id number] [address] 2022-04-21 2022-04-21 Outpatient R FLORES [facility] [id number] [id number] Univers 11:00:00 11:00:00 RABIA ity [facility] 2022-04-21 2022-04-21 Outpatient R RADHAMES ACEVEDO [facility] [id number] Univers 10:24:38 10:29:00 RADHAMES ACEVEDO ity [facility] 2022-04-21 2022-04-21 [facility] 1.2.415.889 [id number] Univers 10:24:38 10:29:00 Encounter Radhames ROSEN 350.1.13.10 ity of [facility] 4.2.7.2.[place] [id number] [address] 2022-04-21 2022-04-21 [facility] 1.2.840.114 [id number] Univers 09:30:00 10:11:08 Visit Aidanjordindanny SILAS 350.1.13.10 ity of [facility] 4.2.7.2.[place] [id number] Ar dical NAL 044 [facility] 2022-04-21 2022-04-21 Telephone [facility] 1.2.840.114 [id number] Univers 00:00:00 00:00:00 Susiesharlene SILAS 350.1.13.10 ity of [facility] 4.2.7.2.[place] [id number] Ar dical NAL 044 [facility] 2022-04-20 2022-04-20 [facility]phone [facility] 1.2.840.114 9 [id number] Univers 00:00:00 00:00:00 Rabia ROSEN 350.1.13.10 ity of [place].2.[place] [id number] Ar dical NAL 044 [facility] 2022-04-20 2022-04-20 [facility]phone [facility] 1.2.840.114 9 [id number] Univers 00:00:00 00:00:00 Rabia ROSEN 350.1.13.10 ity of [place] 562.5636557 Ar dical NAL 231 [facility] 2022-04-20 2022-04-20 Orders Doctor LULU 1.2.840.114 [id number] Univers 00:00:00 00:00:00 Only Unassigned, PENELOPE 350.1.13.10 ity of [place] [facility] 4.2.7.2.686 Ernst as [id number] [facility] 009 [place] 2022-04-19 2022-04-19 Outpatient R J LUIS PAGAN [facility] [id number] Univers 11:00:00 11:47:43 MERRITT ity of [facility] 2022-04-19 2022-04-19 Office [facility] 1.2.840.114 [id number] Univers 11:00:00 11:15:00 Visit [facility] 350.1.13.10 it y of [place].2.[place] [id number] [facility] 059 [place] OFFICE [facility] 2022-04-19 2022-04-19 [facility]phone [facility] 1.2.840.114 9 [id number] Univers 00:00:00 00:00:00 Rabialing ROSEN 350.1.13.10 ity of [facility] 4.2.7.2.[place] [id number] [facility] [address] [facility] 2022-04-19 2022-04-19 Refill [facility] 1.2.840.114 [id number] [id number] Univers 00:00:00 00:00:00 Rabia ROSEN 350.1.13.10 ity of [place].2.[place] [id number] [facility] 044 Branch [facility] 2022-04-18 2022-04-18 Orders Doctor LULU 1.2.840.114 [id number] Univers 00:00:00 00:00:00 Only Unassigned, PENELOPE 350.1.13.10 ity of [place] [facility] 4.2.7.2.686 Ernst as [id number] [facility] 009 [place] 2022-04-17 2022-04-17 [facility]phone [facility] 1.2.840.114 9 [id number] Univers 00:00:00 00:00:00 Rabia ROSEN 350.1.13.10 ity of [place].2.[place] [id number] [facility] 044 [facility] 2022-04-14 2022-04-14 Outpatient Nagi TANNER [facility] 1042 [id number] Univers 11:00:00 11:00:00 RABIA kinney of [facility] 2022-04-10 2022-04-12 Outpatient Nagi TANNER [facility] 1041 [id number] Univers 16:40:00 13:22:14 RABIA kinney [facility] 2022-04-10 2022-04-12 Telemedici Flores [facility] 1.2.840.114 [id number] Univers 16:40:00 13:22:14 ne Visit Rabia ROSEN 350.1.13.10 ity of [place].2.7.2.[place] [id number] [address] 2022-04-11 2022-04-11 Patient Pawel [facility] 1.2.840.114 [id number] Univers 00:00:00 00:00:00 Outreach Marleny ROSEN 350.1.13.10 ity of [facility] 4.2.7.2.[place] 270.1451088 [address] 2022-04-10 2022-04-10 Orders Doctor LULU 1.2.840.114 [id number] Univers 00:00:00 00:00:00 Only Unassigned, PENELOPE 350.1.13.10 ity of [place] [facility] 4.2.7.2.686 Ernst as [id number] [address] 2022-04-07 2022-04-07 Nurse 1, Adc Infusion Nurse [facility] 1.2. 840.114 [id number] Univers 11:00:00 11:15:00 Visit Rabia Tanner 350.1. 13.10 ity of [facility] 4.2.7.2.[place]ICAL [id number] [place] 522713 [place] 2022-04-07 2022-04-07 Outpatient R FLORES MDDERRELL [facility] 1041 [id number] Univers 11:00:00 11:00:00 RABIA kinney [facility] 2022-04-06 2022-04-06 Telephone Flores [facility] 1.2.840.114 9 [id number] Univers 00:00:00 00:00:00 Rabia ROSEN 350.1.13.10 ity of [facility] 4.2.7.2.[place] [id number] [address] 2022-04-03 2022-04-03 Telephone Flores [facility] 1.2.840.114 9 [id number] Univers 00:00:00 00:00:00 Rabia ROSEN 350.1.13.10 ity of [place].2.[place] 542.0418413 [address] 2022-04-03 2022-04-03 Patient Flores [facility] 1.2.840.114 [id number] Univers 00:00:00 00:00:00 Secure Msg Rabia Rasmussen [facility] 350.1.13.10 ity of [place] 4.2.7.2.686 Ernst as JEOVANNY?BLEA 240.2687716 [address] 2022-04-03 2022-04-03 Patient Torrey [facility] 1.2.840.114 [id number] Univers 00:00:00 00:00:00 Outreach Michelle ROSEN 350.1.13.10 ity of [facility] 4.2.7.2.[place] [id number] [address] 2022-04-03 2022-04-03 Telephone Flores [facility] 1.2.840.114 9 [id number] Univers 00:00:00 00:00:00 Rabia ROSEN 350.1.13.10 ity of [facility] 4.2.7.2.[place] 393.2207339 [address] 2022-03-31 2022-03-31 Nurse 1, Adc Infusion Nurse [facility] 1.2. 840.114 [id number] Univers 11:00:00 11:15:00 Visit Rabia [place] 350.1. 13.10 ity of [place].2.[place] [id number] [address] 2022-03-31 2022-03-31 Outpatient R FLORES [facility] 1041 [id number] Univers 11:00:00 11:00:00 [facility] 2022-03-30 Outpatient R RADHAMES ACEVEDO [facility] [id number] Univers 15:00:00 10:34:26 RADHAMES ACEVEDO gregoria [facility] 2022-03-29 2022-03-30 Telemedici Curtis [facility] 1.2.840.114 [id number] Univers 15:00:00 10:34:26 ne Visit Radhames ROSEN 350.1.13.10 ity of [place] [id number] Ar dical NAL [address] [place] [address] 2022-03-29 2022-03-29 Telephone Flores [facility] 1.2.840.114 9 [id number] Univers 00:00:00 00:00:00 Rabia ROSEN 350.1.13.10 ity of [place].2.[place] 822.8958501 Ar dicca NAL [address] [place] [address] 2022-03-29 2022-03-29 Orders Doctor LULU 1.2.840.114 [id number] Univers 00:00:00 00:00:00 Only Unassigned, PENELOPE 350.1.13.10 ity of [place] [facility] 4.2.7.2.686 Ernst as [id number] [address] 2022-03-28 2022-03-28 Outpatient R FLORES [facility] 1041 [id number] Univers 15:00:00 15:00:00 RABIA kinney [facility] 2022-03-24 2022-03-24 Nurse 1, Adc Infusion Nurse [facility] 1.2. 840.114 [id number] Univers 11:00:00 11:15:00 Visit Rabia Tanner 350.1. 13.10 ity of [place].2.[place] [id number] [place] 522713 [place] 2022-03-24 2022-03-24 [facility] 1041 [id number] Univers 11:00:00 11:00:00 RABIA kinney [facility] 2022-03-23 2022-03-23 Telephone [facility] 1.2.840.114 9 [id number] Univers 00:00:00 00:00:00 Rabia A ALISHATON 350.1.13.10 ity of [place].2.[place] [id number] [address] 2022-03-23 2022-03-23 Telephone [facility] 1.2.840.114 9 [id number] Univers 00:00:00 00:00:00 Rabia A ALISHATON 350.1.13.10 ity of [facility] 4.2.7.2.[place] 757.6748302 [address] 2022-03-22 2022-03-22 Office SHEIKH [facility] 1.2.840.[id number] [place] [address] 08:11:10 09:25:15 Visit [facility] 350.1.13.21 College Y 0.2.7.2.686 of [id number] [facility] 300 e 2022-03-21 2022-03-21 Outpatient [facility] 1040 [id number] Univers 09:00:00 09:00:00 RABIA warnermervin [facility] 2022-03-21 2022-03-21 [facility] 1.2.840.114 [id number] Univers 00:00:00 00:00:00 Management Rabia BRITOTON 350.1.13.10 ity of [facility] [place] [id number] [address] 2022-03-21 2022-03-21 [facility]phone [facility] 1.2.840.114 9 [id number] Univers 00:00:00 00:00:00 Rabia A [place] 350.1.13.10 ity of [place].2.[place] 265.3653404 [address] 2022-03-17 2022-03-17 Outpatient [facility] 1041 [id number] Univers 09:00:00 09:00:00 RABIA mervin [facility] 2022-03-16 2022-03-16 Outpatient Nag[facility] 1041 [id number] Univers 09:00:00 09:00:00 RABIA gregoria [facility] 2022-03-15 2022-03-15 Outpatient Nagi [facility] [place] [id number] Univers 08:14:00 11:52:00 ISIS timmymervin [facility] 2022-03-15 2022-03-15 [facility] 1.2.840.114 [id number] Univers 08:14:00 11:52:00 Encounter Isis ROSEN 350.1.13.10 ity of [place] [id number] [facility] [address] [place] 2022-03-15 2022-03-15 Surgery [facility] 1.2.293.512 2112 [id number] Univers 09:10:00 10:35:00 Isis ROSEN 350.1.13.10 i ty of [place] [id number] [facility] [address] 2022-03-15 2022-03-15 Orders Doctor LULU 1.2.840.114 [id number] Univers 00:00:00 00:00:00 Only Unassigned, PENELOPE 350.1.13.10 ity of [place] [facility] 4.2.7.2.686 Ernst as [id number] [facility] [address] 2022-03-14 2022-03-14 Staffing Assistant Darryl, Adc Lab Main [facility] 1.2.8 40.114 [id number] Univers 12:45:00 13:00:00 Visit Rabia Tanner 350.1. 13.10 ity of [place] [id number] Ar dical [facility] 353 [facility] 2022-03-14 2022-03-14 Laboratory Only, Adc Test [facility] 1.2.840. 114 [id number] Univers 11:30:00 11:45:00 Only Isis Kerns SIALS 350.1.13.10 [facility]y [facility] 4.2.7.2.686 [facility] [phone] [address] 2022-03-14 2022-03-14 Outpatient R LUIS F [facility] [id number] Univers 11:30:00 11:30:00 ISIS timmymervin [facility] 2022-03-14 2022-03-14 Outpatient R KERNS, [facility] [id number] Univers 11:30:00 11:30:00 ISIS kinney [facility] 2022-03-14 2022-03-14 Outpatient R FLORES [facility] [id number] Univers 09:00:00 09:00:00 RABIA kinney [facility] 2022-03-10 2022-03-10 [facility] [id number] Univers 09:00:00 09:00:00 RABIA kinney [facility] 2022-03-09 2022-03-09 [facility] [id number] Univers 09:30:00 09:30:[facility] [id number] Univers 16:00:00 12:59:08 RABIA kinney [facility] 2022-03-07 2022-03-08 [facility] 1.2.840.114 [id number] Univers 16:00:00 12:59:08 ne Visit Rabia ROSEN 350.1.13.10 ity of [place] 4.2.7.2.686 [facility] [phone] [address] 2022-03-08 2022-03-08 [facility] 1.2.840.114 [id number] Univers 00:00:00 00:00:00 Rabia ROSEN 350.1.13.10 [place] [id number] Ar dical NAL [address] [facility] 2022-03-07 2022-03-07 Outpatient R TANNER [facility] [id number] Univers 16:00:00 16:00:00 RABIA [facility] 2022-03-07 2022-03-07 Outpatient R FLORES [facility] [id number] Univers 16:00:00 16:00:00 [facility] 2022-03-07 2022-03-07 Outpatient R FLORES [facility] [id number] Univers 16:00:00 16:00:00 RABIA [facility] 2022-03-07 2022-03-07 Outpatient R FLORES [facility] [id number] Univers 09:00:00 09:00:00 [facility] 2022-03-07 2022-03-07 Telephone [facility] 1.2.840.114 [id number] Univers 00:00:00 00:00:00 Isis ROSEN 350.1.13.10 i ty [place] [id number] Ar dic[address] 2022-03-07 2022-03-07 Prep [facility] 1.2.840.114 [id number] Univers 00:00:00 00:00:00 Surgery Isis ROSEN 350.1.13.10 i ty [facility] [place] [id number] Ar dical NAL [address] [facility] 2022-03-06 2022-03-06 Telephone Flores [facility] 1.2.840.114 [id number] Univers 00:00:00 00:00:00 Rabia ROSEN 350.1.13.10 [facility] [place] [id number] Ar dical NAL [address] [facility] 2022-03-06 2022-03-06 [facility] 1.2.840.114 [id number] [facility] 00:00:00 00:00:00 Rabia ROSEN 350.1.13.10 [facility] [place] [id number] [facility] 231 [facility] 2022-03-03 2022-03-03 Outpatient [facility] [id number] [facility] 09:00:00 09:00:00 RABIA kinney [facility] 2022-03-02 2022-03-02 Outpatient Nag[facility] [id number] [facility] 09:00:00 09:00:00 RABIA [facility] 2022-03-02 2022-03-02 Telephone [facility] 12.840.114 96 [id number] [facility] 00:00:00 00:00:00 Isis ROSEN 350.1.13.10 i ty of [place] [id number] [facility] 188 [facility] 2022-03-02 2022-03-02 Telephone [facility] 1.2.840.114 [id number] [facility] 00:00:00 00:00:00 Isis ROSEN 350.1.13.10 i ty of [place] [id number] [address] 2022-03-01 2022-03-01 Telephone [facility] 1.2.840.114 [id number] [facility] 00:00:00 00:00:00 Rabia ROSEN 350.1.13.10 ity [facility] [place] [id number] [address] 2022-02-28 2022-02-28 Outpatient Nagi [facility] 1041 [id number] [facility] 09:00:00 09:00:00 RABIA kinney [facility] 2022-02-24 2022-02-24 Outpatient Nag[facility] 1041 [id number] Univers 09:00:00 09:00:00 RABIA ity [facility] 2022-02-23 2022-02-23 Outpatient R FLORES [facility] 1041 [id number] Univers 09:00:00 09:00:00 RABIA ity [facility] 2022-02-23 2022-02-23 Telephone [facility] 1.2.840.114 [id number] Univers 00:00:00 00:00:00 Rabia Rasmussen [place] 350.1.13.10 ity of [facility] 4[place] [id number] [address] 2022-02-22 2022-02-22 Outpatient R FLORES [facility] 1041 [id number] Univers 09:15:00 23:59:00 [facility]22-02-22 [facility] Flores Rabia Rasmussen [facility] 1. 2.840.114 [id number] Univers 08:37:40 23:59:00 Encounter Graeme, Irfan HEALTH 350.1.13.10 ity of [place] 4.2.7.2.686 Yesy Armas D [place] [id number] [address] ([facility]) 2022-02-22 2022-02-22 [facility] Flores Rabia A [facility] 1. 2.840.114 [id number] Univers 08:37:40 23:59:00 Encounter Graeme, Irfan HEALTH 350.1.13.10 ity of Enrique, Sarah A [place] 4.2.7.2.686 [place] Bird Aricka D [place] [id number] [address] ([facility]) 2022-02-22 2022-02-22 Laboratory Only, [facility] Main Test [facility] 1.2 .840.114 [id number] Univers 09:00:00 09:15:00 Only Femi Sellers A HEALTH 350.1.13.10 ity of [place] [id number] [address] ([facility]) 2022-02-21 2022-02-21 Nurse 1, Adc Infusion Chair [facility] 1.2. 840.114 [id number] Univers 09:00:00 11:30:00 Visit Rabia Tanner 350.1. 13.10 ity of [place].2.7.[place] [id number] [address] 2022-02-21 2022-02-21 Outpatient R FLORES [facility] 1040 [id number] Univers 09:15:00 09:15:00 RABIA kinney [facility] 2022-02-21 2022-02-21 Outpatient [facility] [id number] Univers 09:00:00 09:00:00 [facility]-20 2022-02-20 Refill [facility] 1.2.840.114 [id number] Univers 00:00:00 00:00:00 Rabia ROSEN 350.1.13.10 ity of [facility] 4.2.[place] [id number] [address] 2022-02-17 2022-02-17 Nurse 1, Adc Infusion Chair [facility] 1.2. 840.114 [id number] Univers 09:00:00 11:30:00 Visit Rabia Tanner 350.1. 13.10 ity of [facility] 4.2.[place] [id number] [address] 2022-02-17 2022-02-17 Outpatient R FLROES [facility] 1041 [id number] Univers 09:00:00 09:00:00 RABIA kinney [facility] 2022-02-17 2022-02-17 Outpatient R FLORES [facility] 1041 [id number] Univers 09:00:00 09:00:00 RABIA kinney [facility] 2022-02-16 2022-02-16 Outpatient [facility] 1041 [id number] Univers 09:30:00 09:30:00 RABIA [facility] 2022-02-14 2022-02-14 Nurse 2, Adc Infusion Chair [facility] 1.2. 840.114 [id number] Univers 11:30:00 14:00:00 Visit Rabia Tanner 350.1. 13.10 ity of [place] 4.2.[place] [id number] [address] 2022-02-14 2022-02-14 [facility] 1041 [id number] Univers 11:30:00 11:30:00 [facility] 2022-02-14 2022-02-14 Outpatient [facility] 1041 [id number] Univers 11:30:00 11:30:00 [facility] 2022-02-14 2022-02-14 Outpatient Nagi [facility] 1041 [id number] Univers 09:00:00 09:00:00 [facility] 2022-02-14 2022-02-14 Orders Doctor LULU 1.2.840.114 [id number] Univers 00:00:00 00:00:00 Only Unassigned, PENELOPE 350.1.13.10 ity of [place] [facility] 4.2.7.2.686 Ernst as [id number] [address] 2022-02-10 2022-02-10 Nurse 1, Adc Infusion Chair [facility] 1.2. 840.114 [id number] Univers 09:00:00 11:30:00 Visit Rabia Tanner 350.1. 13.10 ity of [place] 4[place] [id number] [address] 2022-02-10 2022-02-10 Outpatient Nagi [facility] 1041 [id number] Univers 09:00:00 09:00:00 [facility] 2022-02-10 2022-02-10 Outpatient Nagi [facility] [id number] Univers 09:00:00 09:00:00 RABIA ity of [facility] 2022-02-10 2022-02-10 [facility] 1.2.840.114 [id number] [facility] 00:00:00 00:00:00 Rabia A [place] 350.1.13.10 ity of [place] 4.2.7.2.[place] [id number] [address] 2022-02-10 2022-02-10 [facility] 1.2.840.114 9 [id number] [facility] 00:00:00 00:00:00 Rabia A [place] 350.1.13.10 ity of [place] 4.2.7.2.[place] [id number] [address] 2022-02-09 2022-02-09 Nurse 1, Adc Infusion Chair [facility] 1.2. 840.114 [id number] [facility] 09:00:00 11:30:00 Visit Rabia TannerTON 350.1. 13.10 ity of [place] 4.2.7.2.[place] [id number] [address] 2022-02-09 2022-02-09 Outpatient [facility] 1041 [id number] [facility] 09:00:00 09:00:00 RABIA ity of [facility] 2022-02-09 2022-02-09 Telephone [facility] 1.2.840.114 9 [id number] [facility] 00:00:00 00:00:00 Rabia A [place] 350.1.13.10 ity of [place] 4.2.7.2.[place] [id number] [address] 2022-02-09 2022-02-09 [facility] 1.2.840.114 9 [id number] [facility] 00:00:00 00:00:00 Rabia A [place] 350.1.13.10 ity of [place] 4.2.7.2.[place] [id number] Ar dical NAL 044 [facility] 2022-02-07 2022-02-07 Outpatient R RADHAMES ACEVEDO [facility] [id number] Univers 11:30:00 12:59:10 RADHAMES ACEVEDO ity of [facility] 2022-02-07 2022-02-07 Office Curtis [facility] 1.2.840.114 [id number] Univers 11:30:00 12:59:10 Visit Radhames ROSEN 350.1.13.10 ity of [place] 4.2.7.2.[place] [id number] Ar dical NAL [address] [place] [address] 2022-02-07 2022-02-07 Nurse 1, Adc Infusion Chair [facility] 1.2. 840.114 [id number] Univers 09:00:00 11:30:00 Visit Rabia Tanner 350.1. 13.10 ity of [place] 4.2.7.2.[place] [id number] [address] 2022-02-07 2022-02-07 Outpatient R FLORES [facility] 1041 [id number] Univers 09:00:00 09:00:00 RABIA kinney of [facility] 2022-02-06 2022-02-06 Telephone Flores [facility] 1.2.840.114 [id number] Univers 00:00:00 00:00:00 Rabia ROSEN 350.1.13.10 ity of [place] 4.2.7.2.[place] [id number] Ar florentin [facility] [address] [facility] 2022-02-03 2022-02-03 Nurse 1, Adc Infusion Chair [facility] 1.2. 840.114 [id number] Univers 09:00:00 11:30:00 Visit Rabia Tanner 350.1. 13.10 ity of [place] 4.2.7.2.[place] [id number] [address] 2022-02-03 2022-02-03 Outpatient R FLORES [facility] 1041 [id number] Univers 09:00:00 09:00:00 RABIA timmymervin [facility] 2022-02-03 2022-02-03 Outpatient R FLORES [facility] 1041 [id number] Univers 09:00:00 09:00:00 RABIA warnermervin [facility] 2022-02-03 2022-02-03 Patient Flores [facility] 1.2.840.114 [id number] Univers 00:00:00 00:00:00 Secure Msg Rabia ROSEN 350.1.13.10 ity of [place] [id number] [address] 2022-02-02 2022-02-02 Nurse 1, Adc Infusion Chair [facility] 1.2. 840.114 [id number] Univers 09:00:00 11:00:00 Visit Rabia Tanner 350.1. 13.10 ity of [place] 4.2.7.2.[place] [id number] [place] [address] [place] 2022-02-02 2022-02-02 Outpatient R FLORES [facility] 1040 [id number] Univers 09:00:00 09:00:00 RABIA timmymervin [facility] 2022-02-02 2022-02-02 Outpatient R FLORES [facility] 1040 [id number] Univers 09:00:00 09:00:00 RABIA warnermervin [facility] 2022-02-01 2022-02-01 Orders Doctor LAWSON 1.2.840.114 [id number] Univers 00:00:00 00:00:00 Only Unassigned, PENELOPE 350.1.13.10 ity of [place] [facility] 4.2.7.2.686 Ernst as [id number] [place] [address] [place] 2022-01-31 2022-01-31 Nurse 1, Adc Infusion Chair [facility] 1.2. 840.114 [id number] Univers 09:00:00 11:00:00 Visit Rabia Tanner 350.1. 13.10 ity of [place] 4[place] [id number] [address] 2022-01-31 2022-01-31 Outpatient R FLORES [facility] 1040 [id number] Univers 09:00:00 09:00:00 RABIA kinney [facility] 2022-01-31 2022-01-31 Outpatient R FLORES [facility] 1040 [id number] Univers 09:00:00 09:00:00 RABIA kinney [facility] 2022-01-31 2022-01-31 Patient Pawel [facility] 1.2.840.114 [id number] Univers 00:00:00 00:00:00 Outreach Marleny ROSEN 350.1.13.10 ity of [place] 4.2.7.2.[place] [id number] Ar dical [address] 2022-01-31 2022-01-31 Patient Pawel [facility] 1.2.840.114 [id number] Univers 00:00:00 00:00:00 Outreach Marleny ROSEN 350.1.13.10 ity of [place] 4[place] [id number] [address] 2022-01-30 2022-01-30 Telephone Flores [facility] 1.2.840.114 [id number] Univers 00:00:00 00:00:00 Rabia ROSEN 350.1.13.10 ity of [place] [phone] Ar dical NAL [address] [place] [address] 2022-01-27 2022-01-27 Nurse 1, Adc Infusion Chair [facility] 1.2. 840.114 [id number] Univers 10:00:00 12:00:00 Visit Rabia Tanner 350.1. 13.10 ity of [place] [id number] [address] 2022-01-27 2022-01-27 Outpatient R TANNER, [facility] 1040 [id number] Univers 10:00:00 10:00:00 RABIA ity [facility] 2022-01-27 2022-01-27 Outpatient Nagi TANNER [facility] 1040 [id number] Univers 10:00:00 10:00:00 RABIA ity [facility] 2022-01-26 2022-01-26 Nurse 1, Adc Infusion Chair [facility] 1.2. 840.114 [id number] Univers 10:00:00 12:00:00 Visit Jessica Tannerling ROSEN 350.1. 13.10 ity of [place] 4.2.7.2.[place] [id number] [place] 5227[address] [place] 2022-01-26 2022-01-26 Outpatient Nagi [facility] 1040 [id number] Univers 10:00:00 10:00:00 RABIA gregoria [facility] 2022-01-26 2022-01-26 Outpatient Nagi TANNER [facility] 1040 [id number] Univers 10:00:00 10:00:00 RABIA ity [facility] 2022-01-25 2022-01-25 [facility]phone [facility] 1.2.840.114 9 [id number] Univers 00:00:00 00:00:00 Rabia ROSEN 350.1.13.10 ity of [place] [id number] [address] 2022-01-24 2022-01-24 Telemedici [facility] 1.2.840.114 [id number] Univers 16:00:00 16:40:00 ne Visit Rabia ROSEN 350.1.13.10 ity of [place] 4.2.7.2.[place] [id number] Ar dic[address] 2022-01-24 2022-01-24 Outpatient [facility] 1040 [id number] Univers 16:00:00 16:00:00 RABIA kinney [facility] 2022-01-24 2022-01-24 Nurse 1, Adc Infusion Chair [facility] 1.2. 840.114 [id number] Univers 09:00:00 11:00:00 Visit Rabia Tanner 350.1. 13.10 ity of [place] 4[place] [id number] [address] 2022-01-24 2022-01-24 Outpatient R TANNER, [facility] 1040 [id number] Univers 09:00:00 09:00:00 RABIA timmymervin [facility] 2022-01-24 2022-01-24 Outpatient R FLORES [facility] 1040 [id number] Univers 09:00:00 09:00:00 RABIA timmymervin [facility] 2022-01-24 2022-01-24 Outpatient R FLORES [facility] 1040 [id number] Univers 09:0000 09:00:00 RABIA warnermervin [facility] 2022-01-20 2022-01-20 Nurse 2, Adc Infusion Chair [facility] 1.2. 840.114 [id number] Univers 09:00:00 11:30:00 Visit Rabia Tanner 350.1. 13.10 ity [facility] 4.2.7.2.[place] [id number] [address] 2022-01-20 2022-01-20 Outpatient R TANNER [facility] 1040 [id number] Univers 09:00:00 09:00:00 RABIA timmymervin [facility] 2022-01-20 2022-01-20 Outpatient R FLORES [facility] 1040 [id number] Univers 09:00:00 09:00:00 [facility]-19 2022-01-19 Nurse 1, Adc Infusion Chair [facility] 1.2. 840.114 [id number] Univers 09:00:00 11:00:00 Visit Rabia Tanner 350.1. 13.10 [facility] 4[place] [id number] [address] 2022-01-19 2022-01-19 Outpatient Nagi TANNER [facility] 1040 [id number] Univers 09:00:00 09:00:00 RABIA [facility] 2022-01-19 2022-01-19 Outpatient Nagi TANNER [facility] 1040 [id number] Univers 09:00:00 09:00:00 RABIA [facility] 2022-01-19 2022-01-19 Outpatient RADHARASHAWN RAMESH [facility] 739 [place] 01:28:00 01:28:00 HN 0714 [facility] 2022-01-19 2022-01-19 Refcristin [facility] .2.840.114 [id number] Univers 00:00:00 00:00:00 Rabia ROSEN 350.1.13.10 [place] [id number] [address] 2022-01-17 2022-01-17 Outpatient Nagi TANNER [facility] 1040 [id number] Univers 09:00:00 09:00:00 RABIA [facility] 2022-01-13 2022-01-13 Outpatient Nagi TANNER [facility] 1040 [id number] Univers 09:15:00 09:15:00 RABIA [facility] 2022-01-12 2022-01-12 Nurse 1, Adc Infusion Chair [facility] .2. 840.114 [id number] Univers 09:15:00 11:15:00 Visit Rabia Tanner 350.1. 13.10 [facility] 4.2.[place] [id number] [address] 2022-01-12 2022-01-12 Outpatient Nagi TANNER [facility] 1040 [id number] Univers 09:15:00 09:15:00 RABIA [facility] 2022-01-11 2022-01-11 Telephone Flores [facility] 1.2.840.114 9 [id number] Univers 00:00:00 00:00:00 Rabia ROSEN 350.1.13.10 ity [facility] 4.2.[place].2.[place] [id number] Ar dical NAL 231 [facility] 2022-01-10 2022-01-10 Nurse 1, Adc Infusion Chair [facility] 1.2. 840.114 [id number] Univers 09:15:00 11:15:00 Visit Rabia Tanner SILAS 350.1. 13.10 ity of [place] [id number] [facility] [address] [place] 2022-01-10 2022-01-10 Outpatient R FLORES [facility] 1040 [id number] Univers 09:15:00 09:15:00 [facility] 2022-01-06 2022-01-06 [facility] 1040 [id number] Univers 09:15:00 09:15:00 [facility] 2022-01-06 2022-01-06 Outpatient R [facility] 1040 [id number] Univers 09:15:00 09:15:00 RABIA [facility] 2022-01-05 2022-01-05 Outpatient R [facility] 1040 [id number] Univers 09:15:00 09:15:00 [facility] 2022-01-05 2022-01-05 Refill [facility] 1.2.840.114 [id number] Univers 00:00:00 00:00:00 Rabia ROSEN 350.1.13.10 it[place] [id number] Ar dical NAL 044 [facility] 2022-01-03 2022-01-03 Nurse 1, Adc Infusion Chair [facility] 1.2. 840.114 [id number] Univers 09:15:00 11:15:00 Visit Rabia Tanner 350.1. 13.10 ity of [place] 4[place]2.7.2.[place] [id number] [facility] [address] [place] 2022-01-03 2022-01-03 Outpatient R FLORES [facility] 1040 [id number] Univers 09:15:00 09:15:00 RABIA kinney [facility] 2022-01-03 2022-01-03 Outpatient R FLORES [facility] 1040 [id number] Univers 09:15:00 09:15:00 RABIA kinney [facility] 2022-01-02 2022-01-02 Outpatient R LUIS F [facility] [id number] Univers 09:00:00 09:32:52 ISIS gregoria [facility] 2022-01-02 2022-01-02 Office Luis F [facility] 1.2.691.184 [id number] Univers 09:00:00 09:32:52 Visit Isis ROSEN 350.1.13.10 i ty [facility] 4.2.[place] [id number] Ar dical NAL 188 [facility] 2021-12-29 2021-12-30 Outpatient [facility] 1038 [id number] Univers 15:40:00 14:52:04 [facility] 2021-12-29 2021-12-30 Telemedici [facility] 1.2.840.114 [id number] Univers 15:40:00 14:52:04 ne Visit Rabia ROSEN 350.1.13.10 ity of [place] [id number] Ar florentin SEXTON 231 [facility] 2021-12-30 2021-12-30 Nurse 1, Adc Infusion Chair [facility] 1.2. 840.114 [id number] Univers 09:15:00 11:15:00 Visit Rabia Tanner 350.1. 13.10 it[place] of [place] 4[place].2.[place] [id number] [facility] [address] [place] 2021-12-30 2021-12-30 Outpatient R FLORES [facility] 1040 [id number] Univers 09:15:00 09:15:00 RABIA kinney [facility] 2021-12-30 2021-12-30 Outpatient [facility] 1040 [id number] Univers 09:15:00 09:15:00 RABIA kinney [facility] 2021-12-30 2021-12-30 Telephone [facility] 1.2.840.114 [id number] Univers 00:00:00 00:00:00 Rabia ROSEN 350.1.13.10 [facility] [place] [id number] [address] 2021-12-30 2021-12-30 [facility] 1.2.840.114 9 [id number] Univers 00:00:00 00:00:00 Rabia BRITOTON 350.1.13.10 ity [facility] 4[place] [id number] [address] 2021-12-30 2021-12-30 [facility] 1.2.840.114 9 [id number] Univers 00:00:00 00:00:00 Rabia ROSEN 350.1.13.10 ity [facility] [place] [id number] [address] 2021-12-30 2021-12-30 Orders Doctor LULU 1.2.840.114 [id number] Univers 00:00:00 00:00:00 Only Unassigned, PENELOPE 350.1.13.10 ity of [place] [facility] 4.2.7.2.686 Ernst as [id number] [address] 2021-12-29 2021-12-29 Outpatient [facility] 1038 [id number] Univers 15:40:00 15:40:00 RABIA kinney [facility] 2021-12-29 2021-12-29 Outpatient R FLORES [facility] 1038 [id number] Univers 15:40:00 15:40:00 RABIA ity [facility] 2021-12-29 2021-12-29 Outpatient R FLORES [facility] 1038 [id number] Univers 15:40:00 15:40:00 RABIA timmymervin [facility] 2021-12-29 2021-12-29 Outpatient Nagi MARTINEZTANNRE, [facility] 1038 [id number] Univers 09:15:00 09:15:00 RABIA timmymervin [facility] 2021-12-28 2021-12-28 Telephone [facility] 1.2.840.114 9 [id number] Univers 00:00:00 00:00:00 Rabia ROSEN 350.1.13.10 it[place] [id number] Ar dical NAL 044 [facility] 2021-12-27 2021-12-27 Nurse 1, Adc Infusion Chair [facility] 1.2. 840.114 [id number] Univers 09:15:00 11:15:00 Visit Rabia Tanner 350.1. 13.10 ity [facility] 4.2.[place] [id number] [place] [address] [place] 2021-12-27 2021-12-27 Outpatient Nagi TANNER [facility] 1040 [id number] Univers 09:15:00 09:15:00 RABIA warnermervin [facility] 2021-12-26 2021-12-26 Patient Pawel [facility] 1.2.840.114 [id number] Univers 00:00:00 00:00:00 Outreach Marleny ROSEN 350.1.13.10 [facility] [place] [phone] Ar dical NAL 231 [facility] 2021-12-26 2021-12-26 Telephone Flores [facility] 1.2.840.114 [id number] Univers 00:00:00 00:00:00 Rabia ROSEN 350.1.13.10 it[place] [phone] Ar dical NAL 044 [facility] 2021-12-26 2021-12-26 Telephone Flores [facility] 1.2.840.114 [id number] Univers 00:00:00 00:00:00 Rabia ROSEN 350.1.13.10 it[place] [phone] Ar dical NAL 231 [facility] 2021-12-26 2021-12-26 Patient Pawel [facility] 1.2.840.114 [id number] Univers 00:00:00 00:00:00 Outreach Marleny Clarke SILAS 350.1.13.10 ity [place] [phone] Ar dical NAL [address] [place] [address] 2021-12-26 2021-12-26 Patient Pawel [facility] 1.2.840.114 [id number] Univers 00:00:00 00:00:00 Outreach Marleny Tricia ROSEN 350.1.13.10 [place] [phone] Ar dical NAL 231 [facility] 2021-12-23 2021-12-23 Nurse 1, Adc Infusion Chair [facility] 1.2. 840.114 [id number] Univers 09:00:00 13:00:00 Visit Rabia Tanner 350.1. 13.10 [place] [id number] [facility] [address] 2021-12-23 2021-12-23 Outpatient Naig TANNER [facility] 1040 [id number] Univers 09:00:00 09:00:00 RABIA kinney [facility] 2021-12-23 2021-12-23 Outpatient Nagi TANNER [facility] [id number] Univers 09:00:00 09:00:00 RABIALas [facility] 2021-12-23 2021-12-23 Outpatient R TANNER, [facility] 1040 [id number] Univers 09:00:00 09:00:00 RABIA itmervin [facility] 2021-12-23 2021-12-23 Telephone Tanner, [facility] 1.2.840.114 [id number] Univers 00:00:00 00:00:00 Rabia ROSEN 350.1.13.10 it[place] [id number] Ar florentin [facility] 044 [facility] 2021-12-22 2021-12-22 Outpatient R FLORES [facility] 1040 [id number] Univers 15:20:00 16:52:25 [facility] 2021-12-22 Office Flores [facility] 1.2.840.114 [id number] Univers 15:20:00 16:52:25 Visit Rabia ROSEN 350.1.13.10 [place] [phone] [facility] 231 [facility] 2021-12-22 2021-12-22 Office Flores [facility] 1.2.840.114 [id number] Univers 15:20:00 16:52:25 Visit Rabia ROSEN 350.1.13.10 ity [facility] [place] [phone] Ar dickarol [address] 2021-12-22 2021-12-22 Outpatient R FLORES [facility] [id number] Univers 15:20:00 15:20:00 RABIA itmervin [facility] 2021-12-22 2021-12-22 Outpatient R TANNER, [facility] [id number] Univers 15:20:00 15:20:00 RABIA kinney [facility] 2021-12-22 2021-12-22 Nurse 1, Adc Infusion Chair [facility] 1.2. 840.114 [id number] Univers 11:15:00 13:15:00 Visit Rabia Tanner 350.1. 13.10 ity of [place] [id number] [address] 2021-12-22 2021-12-22 Outpatient R TANNER, [facility] 1040 [id number] Univers 09:00:00 09:00:00 RABIA kinney [facility] 2021-12-22 2021-12-22 Telephone [facility] 1.2.840.114 [id number] Univers 00:00:00 00:00:00 Rabia ROSEN 350.1.13.10 it[place] [phone] Ar dical NAL 231 [facility] 2021-12-22 2021-12-22 Siva Aceved[facility] 1.2.840.114 [id number] Univers 00:00:00 00:00:00 Radhames ROSEN 350.1.13.10 it[place] of [place] [id number] Ar dical NAL 044 [facility] 2021-12-20 2021-12-20 Nurse 1, Adc Infusion Chair [facility] 1.2. 840.114 [id number] Univers 09:00:00 13:00:00 Visit Flores Rabia ROSEN 350.1. 13.10 it[place] of [place] [id number] [address] 2021-12-20 2021-12-20 Outpatient Nagi TANNER [facility] [id number] [id number] Univers 09:00:00 09:00:00 RABIA kinney [facility] 2021-12-20 2021-12-20 Outpatient Nagi TANNER [facility] [id number] [id number] Univers 09:00:00 09:00:00 RABIA kinney [facility] 2021-12-20 2021-12-20 Outpatient Nagi TANNER [facility] [id number] Univers 09:00:00 09:00:00 RABIA warnermervin [facility] 2021-12-19 2021-12-19 Emergency X , [facility] ERT [id number] Univers 09:29:00 11:53:00 RICHIE kinney [facility] 2021-12-19 2021-12-19 Emergency Colón, [facility] 1.2.180.740 [id number] Univers 09:29:00 11:53:00 Richie ROSEN 350.1.13.10 i ty [place] [id number] [facility] [address] [place] 2021-12-19 2021-12-19 Emergency X , [facility] ERT [id number] Univers 09:29:00 11:53:00 RICHIE timmymervin [facility] 2021-12-19 2021-12-19 Outpatient Nagi ASTUDILLO [facility] [id number] Univers 09:30:00 09:30:00 LYNNETTE landry [facility] 2021-12-19 2021-12-19 Nurse Nurse, [facility] 1.2.840.114 [id number] Univers 09:30:00 09:30:00 Visit Jacqueline [facility] 350.1.13.10 ity [facility] 4.2.7.2.686 Ernst as JEOVANNY?BLEA [phone] Ar florentin MOJICAEY [address] [place] MEDICAL OFFICE [facility]ILDING 2021-12-19 2021-12-19 Telephone [facility] 1.2.840.114 [id number] Univers 00:00:00 00:00:00 Rabia ROSEN 350.1.13.10 ity [facility] [place] [facility] [id number] Ar florentin S[place] [address] BU[address]ING 2021-12-16 2021-12-16 Outpatient Nagi TANNER [facility] [id number] Univers 09:00:00 09:00:00 RABIA kinney [facility] 2021-12-16 2021-12-16 Outpatient Nagi TANNER [facility] [id number] Univers 09:00:00 09:00:00 RABIA kinney [facility] 2021-12-16 2021-12-16 Telephone Flores [facility] 1.2.840.114 [id number] Univers 00:00:00 00:00:00 Rabia A SILAS 350.1.13.10 [facility] [place] [id number] Ar dical NAL 231 [facility] 2021-12-15 2021-12-15 Nurse 1, Adc Infusion Chair [facility] 1.2. 840.114 [id number] Univers 09:00:00 11:00:00 Visit Rabia Tanner SILAS 350.1. 13.10 it[place] [id number] [address] 2021-12-15 2021-12-15 Outpatient R TANNER [facility] 1040 [id number] Univers 09:00:00 09:00:00 RABIA kinney [facility] 2021-12-15 2021-12-15 Outpatient R FLORES [facility] [id number] [id number] Univers 09:00:00 09:00:00 RABIA ity [facility] 2021-12-15 2021-12-15 Patient Flores [facility] 1.2.840.114 [id number] Univers 00:00:00 00:00:00 Secure Msg Rabia ROSEN 350.1.13.10 it[place] [id number] [facility] 044 [facility] 2021-12-14 2021-12-14 Emergency X [facility] ERT [id number] Univers 10:47:00 11:26:00 RICHIE timmymervin [facility] 2021-12-14 2021-12-14 Emergency [facility] 1.2.819.064 [id number] Univers 10:47:00 11:26:00 Richie ROSEN 350.1.13.10 i ty [facility] 4.2.7.2.[place] [id number] [facility] [address] 2021-12-14 2021-12-14 Outpatient R NANCY [facility] 1040 [id number] Univers 11:20:00 11:20:00 ALEX itmervin [facility] 2021-12-14 2021-12-14 Telephone Luis [facility] 1.2.840.114 [id number] Univers 00:00:00 00:00:00 Isis ROSEN 350.1.13.10 i ty [place] [id number] Ar dical NAL [address] [facility] 2021-12-13 2021-12-13 Nurse 1, Adc Infusion Chair [facility] 1.. 840.114 [id number] Univers 09:00:00 13:00:00 Visit Rabia Tanner 350.1. 13.10 ity of [facility] 4.2.7.2.[place] [id number] [facility] [address] [place] 2021-12-13 2021-12-13 [facility] 10[facility] [id number] Univers 09:00:00 09:00:00 RABIA warnermervin [facility] 2021-12-13 2021-12-13 [facility] [id number] Univers 09:00:00 09:00:00 RABIA kinney [facility] 2021-12-08 2021-12-09 Outpatient R FLORES [facility] [id number] Univers 15:20:00 16:24:20 [facility]-08 2021-12-09 [facility] [id number] Univers 15:20:00 16:24:20 [facility] 2021-12-08 2021-12-09 Telemedici [facility]SH[facility] 1.2.840.114 [id number] Univers 15:20:00 16:24:20 ne Visit Rabia ROSEN 350.1.13.10 ity [facility] 4.[place] [id number] Ar dical NAL [address] [facility] 2021-12-09 2021-12-09 Outpatient R LUIS [facility] [place] [id number] Univers 09:04:00 15:41:00 ISIS mervin [facility] 2021-12-09 2021-12-09 Hospital [facility] 1.2.840.114 [id number] Univers 09:04:00 15:41:00 Encounter Isis ROSEN 350.1.13.10 ity of [place] [id number] [facility] [address] [place] 2021-12-09 2021-12-09 Outpatient R LUIS [facility] [place] [id number] Univers 09:04:00 15:41:00 [facility] 2021-12-09 2021-12-09 Outpatient R LUIS [facility] [place] 74540 [id number] Univers 09:04:00 15:41:00 [facility] 2021-12-09 2021-12-09 Surgery [facility] 1.2.550.854 [id number] Univers 12:00:00 13:30:00 Isis ROSEN 350.1.13.10 i ty [place] [id number] [facility] [address] 2021-12-09 2021-12-09 Laboratory Only, Adc Test [facility] 1.2.840. 114 [id number] Univers 07:45:00 08:00:00 Only Isis Kerns 350.1.13.10 it[place] of [place] [id number] [facility] [address] 2021-12-09 2021-12-09 Orders Doctor LAWSON 1.2.840.114 [id number] Univers 00:00:00 00:00:00 Only Unassigned, PENELOPE 350.1.13.10 ity of [place] [facility] 4.2.7.2.686 Ernst as [id number] [facility] [address] 2021-12-08 2021-12-08 Outpatient R FLORES [facility] 1040 [id number] Univers 15:20:00 15:20:00 RABIA kinney [facility] 2021-12-08 2021-12-08 Nurse 1, Adc Infusion Chair [facility] 1.2. 840.114 [id number] Univers 09:00:00 11:00:00 Visit Rabia Tanner 350.1. 13.10 it[place] of [place] [id number] [address] 2021-12-08 2021-12-08 Outpatient R FLORES [facility] [id number] [id number] Univers 09:00:00 09:00:00 RABIA [facility] 2021-12-06 2021-12-06 Office Nicole Zayas [facility] 1.2.840.114 [id number] Univers 16:45:00 17:00:00 Visit Sallie CARTER 350.1.13.10 [place] of [place] 4.2.7.2.686 [facility] [id number] [address] [facility] 2021-12-06 2021-12-06 Outpatient NICOLE SNOWDEN [facility] [id number] Univers 16:45:00 [facility]:45[facility] 2021-12-06 2021-12-06 Outpatient NICOLE SNOWDEN [facility] [id number] Univers 16:45:00 16:45:00 ity [facility] 2021-12-06 2021-12-06 Nurse 1, Adc Infusion Chair [facility] 1.2. 840.114 [id number] Univers 09:00:00 13:00:00 Visit Rabia Tanner 350.1. 13.10 it[place] [id number] [address] 2021-12-06 2021-12-06 Outpatient Nagi TANNER [facility] [id number] Univers 09:00:00 09:00:00 RABIA kinney [facility] 2021-12-06 2021-12-06 Telephone Flores [facility] 1.2.840.114 [id number] Univers 00:00:00 00:00:00 Rabia ROSEN 350.1.13.10 it[place] of [place] [id number] [address] 2021-12-02 2021-12-02 Nurse 1, Adc Infusion Chair [facility] 1.2. 840.114 [id number] Univers 09:00:00 13:00:00 Visit Rabia Tanner SILAS 350.1. 13.10 [facility] 4.2.[place] [id number] [address] 2021-12-02 2021-12-02 [facility] 1039 [id number] Univers 09:00:00 09:00:00 RABIA gregoria [facility] 2021-12-02 2021-12-02 [facility] [id number] Univers 09:00:00 09:00:00 RABIA gregoria [facility] 2021-12-01 2021-12-01 Nurse 1, Adc Infusion Chair [facility] 1.2. 840.114 [id number] Univers 09:00:00 11:00:00 Visit Flores Rabia ROSEN 350.1. 13.10 [facility] 4.[place] [id number] [address] 2021-12-01 2021-12-01 [facility] 1039 [id number] Univers 09:00:00 09:00:00 RABIA mervin [facility] 2021-12-01 2021-12-01 [facility] 1039 [id number] Univers 09:00:00 09:00:00 RABIA ity [facility] 2021-11-29 2021-11-29 Nurse 1, Adc Infusion Chair [facility] 1.2. 840.114 [id number] Univers 09:00:00 13:00:00 Visit Rabia Tanner 350.1. 13.10 [facility] 4.2.[place] [id number] [place] [address] [place] 2021-11-29 2021-11-29 Outpatient R FLORES [facility] 1039 [id number] Univers 09:00:00 09:00:00 RABIA warnermervin [facility] 2021-11-29 2021-11-29 Out[facility] [id number] Univers 09:00:00 09:00:00 RABIA timmymervin [facility] 2021-11-29 2021-11-29 Prep For Luis [facility] 1.2.840.114 [id number] Univers 00:00:00 00:00:00 Surgery Isis BRITOLAYLA 350.1.13.10 i ty [place] [id number] Ar dical NAL [address] [place] [address] 2021-11-28 2021-11-28 Outpatient R [facility] [id number] Univers 09:00:00 09:29:24 ISIS kinney [facility] 2021-11-28 2021-11-28 Office Luis [facility] 1.2.738.894 [id number] Univers 09:00:00 09:15:00 Visit Isis BRITOLAYLA 350.1.13.10 i ty [facility] 4.2.[place] [id number] Ar dical NAL [address] [place] [address] 2021-11-28 2021-11-28 Outpatient R [facility] [id number] Univers 09:00:00 09:00:00 ISIS kinney [facility] 2021-11-28 2021-11-28 Refill [facility] 1.2.840.114 [id number] Univers 00:00:00 00:00:00 Rabia ROSEN 350.1.13.10 [facility] [place] [id number] Ar dical NAL 044 [facility] 2021-11-25 2021-11-25 Nurse 1, Adc Infusion Chair [facility] 1.. 840.114 [id number] Univers 09:00:00 13:00:00 Visit Aleks Tannermeg ROSEN 350.1. 13.10 ity [facility] 4.[place] [id number] [address] 2021-11-25 2021-11-25 Outpatient R TANNER [facility] [id number] Univers 09:00:00 09:00:00 [facility] 2021-11-25 2021-11-25 Outpatient R FLORES [facility] [id number] Univers 09:00:00 09:00:00 [facility] 2021-11-24 2021-11-24 Nurse 1, Adc Infusion Chair [facility] 1.. 840.114 [id number] Univers 09:00:00 11:00:00 Visit TannerJessicaRabialing ROSEN 350.1. 13.10 it[place] of [place] [id number] [address] 2021-11-24 2021-11-24 Outpatient R TANNER [facility] [id number] Univers 09:00:00 09:00:00 RABIALas [facility] 2021-11-24 2021-11-24 Outpatient R TANNER [facility] [id number] Univers 09:00:00 09:00:00 [facility] 2021-11-24 2021-11-24 Patient Flores [facility] 1.2.840.114 [id number] Univers 00:00:00 00:00:00 Secure Msg Rabia ROSEN 350.1.13.10 ity [facility] 4.[place] [id number] Ar dical NAL 044 [facility] 2021-11-23 2021-11-23 Ancillary Aicha Fulton [facility] 1 .2.840.114 [id number] Univers 10:00:00 11:00:00 Visit Jess Whiting Tricia ROSEN 350.1.13.10 it[place] of [place] [id number] Ar dical [facility] 178 [facility] 2021-11-23 2021-11-23 Outpatient R JOHANNE [facility] [id number] Univers 10:00:00 10:00:00 JESS [facility] 2021-11-23 2021-11-23 Telephone O[facility] 1.2.655.870 [id number] Univers 00:00:00 00:00:00 Ronaldo CARTER 350.1.13.10 ity [facility] [place]2.[place].2.[place] [id number] [address] [facility] 2021-11-22 2021-11-22 Outpatient R LUIS F [facility] [id number] Univers 14:00:00 14:00:00 ISIS [facility] 2021-11-22 2021-11-22 Out[facility] [id number] Univers 09:00:00 09:00:00 RABIA [facility] 2021-11-22 2021-11-22 Outpatient R FLORES [facility] [id number] Univers 09:00:00 09:00:00 [facility] 2021-11-17 2021-11-18 Telemedici [facility] 1.2.840.114 [id number] Univers 15:20:00 16:09:26 ne Visit Rabia ROSEN 350.1.13.10 ity [place] [id number] [facility] 231 [facility] 2021-11-17 2021-11-18 Outpatient Nagi TANNER [facility] 1036 [id number] Univers 15:20:00 16:09:26 RABIA kinney [facility] 2021-11-18 2021-11-18 Nurse 1, Adc Infusion Chair [facility] 1.2. 840.114 [id number] Univers 09:00:00 13:00:00 Visit Rabia Tanner SILAS 350.1. 13.10 [place] 4.2.7.2.686 [place] SURGICAL [id number] [place] [address] [place] 2021-11-18 2021-11-18 Outpatient R FLORES [facility] [id number] Univers 09:00:00 09:00:00 RABIA [facility] 2021-11-18 2021-11-18 Outpatient R FLORES [facility] [id number] Univers 09:00:00 09:00:00 RABIA [facility] 2021-11-18 2021-11-18 Outpatient R FLORES [facility] [id number] Univers 09:00:00 09:00:00 RABIA [facility] 2021-11-17 2021-11-17 Outpatient R FLORES [facility] [id number] Univers 15:20:00 15:20:00 [facility] 2021-11-17 2021-11-17 Outpatient R FLORES [facility] [id number] Univers 15:20:00 15:20:00 [facility] 2021-11-17 2021-11-17 Outpatient R FLORES [facility] [id number] [id number] Univers 15:20:00 15:20:00 [facility] 2021-11-17 2021-11-17 Outpatient R FLORES [facility] [id number] Univers 15:20:00 15:20:00 [facility] 2021-11-17 2021-11-17 Outpatient R FLORES [facility] [id number] [id number] Univers 15:20:00 15:20:00 [facility] 2021-11-17 2021-11-17 Outpatient R FLORES [facility] [id number] Univers 15:20:00 15:20:00 [facility] 2021-11-17 2021-11-17 Nurse 1, Adc Infusion Chair [facility] 1.2. 840.114 [id number] Univers 09:00:00 11:00:00 Visit Rabia Tanner 350.1. 13.10 ity [place] [id number] [address] 2021-11-17 2021-11-17 Outpatient [facility] [id number] [id number] Univers 09:00:00 09:00:00 RABIA [facility] 2021-11-17 2021-11-17 Outpatient [facility] [id number] [id number] Univers 09:00:00 09:00:00 RABIA [facility] 2021-11-15 2021-11-15 Nurse 1, Adc Infusion Chair [facility] 1.2. 840.114 [id number] Univers 09:00:00 13:00:00 Visit Rabia Tanner 350.1. 13.10 it[facility] 4.2.[place] [id number] [address] 2021-11-15 2021-11-15 Outpatient [facility] 1039 [id number] Univers 09:00:00 09:00:00 RABIA [facility] 2021-11-15 2021-11-15 Outpatient [facility] [id number] Univers 09:00:00 09:00:00 RABIA [facility] 2021-11-11 2021-11-11 Nurse 2, Adc Infusion Chair [facility] 1.2. 840.114 [id number] Univers 09:00:00 11:00:00 Visit Rabia Tanner 350.1. 13.10 it[place] of [place] [id number] [address] 2021-11-11 2021-11-11 Outpatient [facility] [id number] Univers 09:00:00 09:00:00 [facility] 2021-11-11 2021-11-11 Outpatient R FLORES [facility] [id number] Univers 09:00:00 09:00:00 RABIA ity [facility] 2021-11-11 2021-11-11 Outpatient Nagi TANNER [facility] [id number] Univers 09:00:00 09:00:00 RABIALas [facility] 2021-11-11 2021-11-11 Telephone Luis [facility] 1.2.840.114 [id number] Univers 00:00:00 00:00:00 Isis ROSEN 350.1.13.10 i ty [place] [id number] Ar dical [facility] 188 [facility] 2021-11-10 2021-11-10 Nurse 2, Adc Infusion Chair [facility] 1.2. 840.114 [id number] Univers 08:30:00 09:30:00 Visit Rabia Tanner 350.1. 13.10 ity [facility] 4.2.[place].2.[place] [id number] [place] 522713 [place] 2021-11-10 2021-11-10 Outpatient Nagi TANNER [facility] [id number] Univers 08:30:00 08:30:00 [facility] 2021-11-10 2021-11-10 Outpatient R TANNER [facility] [id number] Univers 08:30:00 08:30:00 [facility] 2021-11-10 2021-11-10 Outpatient R TANNER [facility] [id number] Univers 08:30:00 08:30:00 RABIA [facility] 2021-11-08 2021-11-09 Telemedici [facility] 1.2.840.114 [id number] Univers 16:00:00 10:38:12 ne Visit Rabia ROSEN 350.1.13.10 ity [facility] 4[place]2.[place] [id number] [address] 2021-11-08 2021-11-09 Outpatient R FLORES [facility] 1038 [id number] Univers 16:00:00 10:38:12 RABIA [facility] 2021-11-08 2021-11-08 Out[facility] [id number] Univers 16:00:00 16:00:00 RABIALas [facility] 2021-11-08 2021-11-08 Outpatient [facility] [id number] Univers 16:00:00 16:00:00 RABIA [facility] 2021-11-08 2021-11-08 Nurse 1, Adc Infusion Chair [facility] 1.2. 840.114 [id number] Univers 09:00:00 11:00:00 Visit Rabia Tanner 350.1. 13.10 ity [facility] 4.2.[place].2.[place] [id number] [address] 2021-11-08 2021-11-08 Outpatient Nag[facility] [id number] [id number] Univers 09:00:00 09:00:00 RABIALas [facility] 2021-11-08 2021-11-08 Outpatient [facility] [id number] Univers 09:00:00 09:00:00 RABIA [facility] 2021-11-04 2021-11-04 Nurse 2, Adc Infusion Chair [facility] 1.2. 840.114 [id number] Univers 09:00:00 11:00:00 Visit Rabia Tanner 350.1. 13.10 it[place] [id number] [address] 2021-11-04 2021-11-04 Outpatient Nag[facility] [id number] [id number] Univers 09:00:00 09:00:00 [facility] 2021-11-04 2021-11-04 Outpatient R FLORES [facility] [id number] Univers 09:00:00 09:00:00 RABIA kinney [facility] 2021-11-04 2021-11-04 Outpatient R FLORES [facility] [id number] Univers 09:00:00 09:00:00 RABIA kinney [facility] 2021-11-03 2021-11-03 Nurse 2, Adc Infusion Chair [facility] 1.2. 840.114 [id number] Univers 09:00:00 10:00:00 Visit Rabia Tanner 350.1. 13.10 ity of [place] [id number] [address] 2021-11-03 2021-11-03 [facility] [id number] Univers 09:00:00 09:00:00 RABIA kinney [facility] 2021-11-03 2021-11-03 [facility] [id number] Univers 09:00:00 09:00:00 RABIA kinney [facility] 2021-11-03 2021-11-03 Outpatient [facility] [id number] Univers 09:00:00 09:00:00 RABIA kinney [facility] 2021-11-03 2021-11-03 [place] [id number] Univers 00:00:00 00:00:00 Rabia ROSEN 350.1.13.10 [id number] [id number] [address] 2021-11-01 2021-11-01 Nurse 1, Adc Infusion Chair [facility] 1.2. 840.114 [id number] Univers 09:00:00 11:00:00 Visit Rabia Tanner 350.1. 13.10 it[place] [id number] [address] 2021-11-01 2021-11-01 Outpatient R [facility] [id number] Univers 09:00:00 09:00:00 RABIALING kinney [facility] 2021-11-01 2021-11-01 Outpatient R [facility] [id number] Univers 09:00:00 09:00:00 RABIALING kinney [facility] 2021-11-01 2021-11-01 Outpatient R [facility] [id number] Univers 09:00:00 09:00:00 RABIALING kinney [facility] 2021-10-28 2021-10-28 Outpatient R [facility] [id number] Univers 16:20:00 16:20:00 RABIA kinney [facility] 2021-10-28 2021-10-28 Nurse 2, Adc Infusion Chair [facility] 1.2. 840.114 [id number] Univers 08:30:00 10:30:00 Visit Rabia Tanner 350.1. 13.10 [place]y [place] [id number] [address] 2021-10-28 2021-10-28 Outpatient R [facility] [id number] Univers 08:30:00 08:30:00 RABIA kinney [facility] 2021-10-28 2021-10-28 Outpatient R [facility] [id number] Univers 08:30:00 08:30:00 RABIALING kinney [facility] 2021-10-28 2021-10-28 Outpatient R [facility] [id number] Univers 08:30:00 08:30:00 RABIA kineny [facility] 2021-10-27 2021-10-27 Nurse 2, Adc Infusion Chair [facility] 1.2. 840.114 [id number] Univers 09:00:00 10:00:00 Visit Rabia Tanner 350.1. 13.10 it[place] [id number] [address] 2021-10-27 2021-10-27 Outpatient R [facility] [id number] Univers 09:00:00 09:00:00 RABIALING kinney [facility] 2021-10-27 2021-10-27 Outpatient R [facility] [id number] Univers 09:00:00 09:00:00 RABIALING kinney [facility] 2021-10-27 2021-10-27 Outpatient R [facility] [id number] Univers 09:00:00 09:00:00 RABIALING kinney [facility] 2021-10-25 2021-10-25 Outpatient R [facility] [id number] Univers 09:00:00 09:00:00 RABIALING kinney [facility] 2021-10-25 2021-10-25 [facility] [id number] Univers 09:00:00 09:00:00 RABIALING kinney [facility] 2021-10-21 2021-10-21 Nurse 2, Adc Infusion Chair [facility] 1.2. 840.114 [id number] Univers 09:00:00 11:00:00 Visit Rabia Tanner 350.1. 13.10 [facility] [place] [id number] [address] 2021-10-21 2021-10-21 Nurse 2, Adc Infusion Chair [facility] 1.2. 840.114 [id number] Univers 09:00:00 11:00:00 Visit Rabia Tanner 350.1. 13.10 ity of [place] [id number] [address] 2021-10-21 2021-10-21 Outpatient [facility] [id number] Univers 09:00:00 09:00:00 RABIA itmervin [facility] 2021-10-21 2021-10-21 Outpatient R [facility] [id number] Univers 09:00:00 09:00:00 RABIALING kinney [facility] 2021-10-21 2021-10-21 Outpatient R [facility] [id number] Univers 09:00:00 09:00:00 RABIA mervin [facility] 2021-10-20 2021-10-20 Nurse 2, Adc Infusion Chair [facility] 1.2. 840.114 [id number] Univers 08:30:00 09:30:00 Visit Flores Rabia ROSEN 350.1. 13.10 ity of [place] [id number] [address] 2021-10-20 2021-10-20 Nurse 2, Adc Infusion Chair [facility] 1.2. 840.114 [id number] Univers 08:30:00 09:30:00 Visit TannerRabia 350.1. 13.10 ity of [place] [id number] [address] 2021-10-20 2021-10-20 Outpatient R [facility] [id number] Univers 08:30:00 08:30:00 RABIALING kinney [facility] 2021-10-20 2021-10-20 Outpatient [facility] [id number] Univers 08:30:00 08:30:00 RABIALING kinney [facility] 2021-10-20 2021-10-20 Outpatient R [facility] [id number] Univers 08:30:00 08:30:00 RABIA mervin [facility] 2021-10-19 2021-10-19 Telephone Flores [facility] 1.2.840.114 [id number] Univers 00:00:00 00:00:00 Rabia ROSEN 350.1.13.10 [facility] [place] [id number] [address] 2021-10-18 2021-10-18 Nurse 1, Adc Infusion Chair [facility] 1.2. 840.114 [id number] Univers 09:00:00 11:00:00 Visit Rabia Tanner 350.1. 13.10 ity of [place] [id number] [address] 2021-10-18 2021-10-18 Nurse 1, Adc Infusion Chair [facility] 1.2. 840.114 [id number] Univers 09:00:00 11:00:00 Visit Rabia Tanner 350.1. 13.10 [facility] [place] [id number] [address] 2021-10-18 2021-10-18 Outpatient [facility] [id number] Univers 09:00:00 09:00:00 RABIA [facility] 2021-10-18 2021-10-18 Outpatient [facility] [id number] Univers 09:00:00 09:00:00 [facility] 2021-10-18 2021-10-18 Outpatient R [facility] [id number] Univers 09:00:00 09:00:00 RABIA [facility] 2021-10-14 2021-10-14 Nurse 2, Adc Infusion Chair [facility] 1.2. 840.114 [id number] Univers 09:00:00 11:00:00 Visit Rabia Tanner 350.1. 13.10 [facility] [place] [id number] [address] 2021-10-14 2021-10-14 Outpatient R [facility] [id number] [id number] Univers 09:00:00 09:00:00 RABIA [facility] 2021-10-14 2021-10-14 Outpatient R [facility] [id number] Univers 09:00:00 09:00:00 RABIA [facility] 2021-10-14 2021-10-14 Outpatient [facility] [id number] Univers 09:00:00 09:00:00 RABIA [facility] 2021-10-14 2021-10-14 [facility] 1.2.840.114 [id number] Univers 00:00:00 00:00:00 Rabia ROSEN 350.1.13.10 [facility] [facility] [place] [id number] [address] BUILDING 2021-10-13 2021-10-13 Outpatient [facility] [id number] [facility] 09:00:00 09:00:00 [facility] 2021-10-13 Outpatient Nagi [facility] [id number] [facility] 09:00:00 09:00:00 RABIA [facility] 2021-10-12 2021-10-12 [facility] 1.2.840.114 [id number] Univers 00:00:00 00:00:00 Rabia Rasmussen [facility] 350.1.13.10 ity of [place] 4.2.7.2.686 Ernst as JEOVANNY?BLEA [id number] [facility] [address] [place] MEDICAL OFFICE BUILDING 2021-10-11 2021-10-11 Nurse 1, Adc Infusion Chair [facility] 1.2. 840.114 [id number] Univers 09:00:00 11:00:00 Visit Rabia Tanner 350.1. 13.10 [facility]y [facility] [place] [id number] [facility] [address] 2021-10-11 2021-10-11 Outpatient Nag[facility] 1038 [id number] Univers 09:00:00 09:00:00 RABIA kinney [facility] 2021-10-11 2021-10-11 Outpatient Nagi [facility] [id number] [id number] Univers 09:00:00 09:00:00 RABIA mervin [facility] 2021-10-11 2021-10-11 Outpatient Nagi [facility] [id number] Univers 09:00:00 09:00:00 RABIA [facility] 2021-10-10 2021-10-10 Patient Pawel, [facility] 1..840.114 [id number] Univers 00:00:00 00:00:00 Outreach Marleny ROSEN 350.1.13.10 [facility] [facility] [place] [id number] [address] 2021-10-07 2021-10-07 Telemedici [facility] 1..840.114 [id number] Univers 16:00:00 16:40:00 ne Visit Rabia ROSEN 350.1.13.10 ity of [facility] [place] [id number] [address] 2021-10-07 2021-10-07 Outpatient R [facility] [id number] Univers 16:00:00 16:00:00 RABIA timmymervin [facility] 2021-10-07 2021-10-07 Outpatient Nagi [facility] [id number] Univers 16:00:00 16:00:00 RABIA timmymervin [facility] 2021-10-07 2021-10-07 Outpatient R [facility] [id number] Univers 16:00:00 16:00:00 RABIA [facility] 2021-10-07 2021-10-07 Nurse 2, Adc Infusion Chair [facility] 1.. 840.114 [id number] Univers 09:00:00 11:00:00 Visit Flores Rabia ROSEN 350.1. 13.10 it[place] [facility] 4[place] [id number] [place] [address] [place] 2021-10-07 2021-10-07 Nurse 2, Adc Infusion Chair [facility] 1.2. 840.114 [id number] Univers 09:00:00 11:00:00 Visit Tanner Rabia ROSEN 350.1. 13.10 ity of [place] [id number] [address] 2021-10-07 2021-10-07 Nurse 2, Adc Infusion Chair [facility] 1.2. 840.114 [id number] Univers 09:00:00 11:00:00 Visit Flores Rabia ROSEN 350.1. 13.10 ity of [place] 4[place] [id number] [address] 2021-10-07 2021-10-07 Outpatient Nag[facility] [id number] Univers 09:00:00 09:00:00 RABIA kinney [facility] 2021-10-07 2021-10-07 Outpatient Nagi [facility] [id number] Univers 09:00:00 09:00:00 RABIA kinney [facility] 2021-10-06 2021-10-06 Nurse 2, Adc Infusion Chair [facility] 1.2. 840.114 [id number] Univers 09:00:00 10:00:00 Visit Tanner, Rabia ROSEN 350.1. 13.10 ity of [place] [id number] [address] 2021-10-06 2021-10-06 Outpatient Nagi [facility] [id number] Univers 09:00:00 09:00:00 RABIA kinney [facility] 2021-10-06 2021-10-06 Outpatient Nagi [facility] [id number] Univers 09:00:00 09:00:00 RABIA kinney [facility] 2021-10-04 2021-10-04 Outpatient LUI CARSON [facility] [id number] Univers 13:03:03 23:59:00 LUI CUMMINS mervin [facility] 2021-10-04 2021-10-04 [facility] YOVANI CumminsIT 1.2.840.114 [id number] Univers 13:03:03 23:59:00 Encounter Lui [facility] 350.1.13.10 ity of [facility] 4.2.7.2.[place] [id number] [facility] [address] [place] 2021-10-04 2021-10-04 Nurse 1, Adc Infusion Nurse [facility] 1.2. 840.114 [id number] Univers 08:00:00 10:00:00 Visit Rabia Tanner 350.1. 13.10 ity [facility] [place] [id number] [facility] [address] [place] 2021-10-04 2021-10-04 Outpatient Nagi TANNER [facility] [id number] Univers 08:00:00 08:00:00 RABIA kinney [facility] 2021-10-03 2021-10-03 Outpatient R LUIS F [facility] [id number] Univers 09:15:00 09:15:00 ISIS mervin [facility] 2021-10-03 2021-10-03 Office Luis F [facility] 1.2.888.617 [id number] Univers 09:15:00 09:15:00 Visit Isis ROSEN 350.1.13.10 i ty [facility] 4[place] [id number] [facility] [address] [facility] 2021-10-03 2021-10-03 Outpatient R LUIS F [facility] [id number] Univers 09:15:00 09:14:45 ISIS kinney [facility] 2021-09-30 2021-09-30 Outpatient R RADHAMES ACEVEDO [facility] [id number] Univers 14:00:00 15:29:50 RADHAMES ACEVEDO [facility] 2021-09-30 2021-09-30 Office Curtis [facility] 1.2.840.114 [id number] Univers 14:00:00 15:29:50 Visit Radhames ROSEN 350.1.13.10 [facility] [place] [id number] [address] 2021-09-30 2021-09-30 Outpatient R RADHAMES ACEVEDO [facility] [id number] Univers 14:00:00 14:00:00 CURTISRADHAMES DUGAN [facility] 2021-09-30 2021-09-30 Outpatient R RADHAMES ACEVEDO [facility] [id number] Univers 14:00:00 14:00:00 CURTISRADHAMES DUGAN [facility] 2021-09-30 2021-09-30 Nurse 1, Adc Infusion Chair [facility] 1.2. 840.114 [id number] Univers 10:00:00 12:00:00 Visit Rabia Tanner 350.1. 13.10 ity of [place] [id number] [address] 2021-09-30 2021-09-30 Outpatient R FLORES [facility] [id number] Univers 10:00:00 10:00:00 RABIA [facility] 2021-09-29 2021-09-29 Nurse 1, Adc Infusion Chair [facility] 1.2. 840.114 [id number] Univers 10:00:00 12:00:00 Visit Rabia Tanner 350.1. 13.10 [facility] [place] [id number] [address] 2021-09-29 2021-09-29 Outpatient [facility] [id number] Univers 10:00:00 10:00:00 RABIA [facility] 2021-09-29 2021-09-29 Outpatient R [facility] [id number] Univers 10:00:00 10:00:00 RABIA [facility] 2021-09-292021-09-29 Telephone [facility] 1.2.840.114 [id number] Univers 00:00:00 00:00:00 Rabia ROSEN 350.1.13.10 ity [facility] [place] [id number] [address] 2021-09-27 2021-09-27 [facility]ici [facility] 1.2.840.114 [id number] Univers 16:00:00 16:40:00 ne Visit Rabia ROSEN 350.1.13.10 ity of [place] [id number] [address] 2021-09-27 2021-09-27 Outpatient [facility] [id number] Univers 16:00:00 16:00:00 [facility] 2021-09-27 2021-09-27 Outpatient R [facility] [id number] Univers 16:00:00 16:00:00 [facility] 2021-09-27 2021-09-27 Outpatient R [facility] [id number] Univers 16:00:00 16:00:00 [facility] 2021-09-26 2021-09-26 Outpatient R RADHAMES ACEVEDO [facility] [id number] Univers 16:30:00 16:45:29 RADHAMES ACEVEDO [facility] 2021-09-26 2021-09-26 Office Curtis [facility] 1.2.840.114 [id number] Univers 16:30:00 16:45:29 Visit Aidansharlene SILAS 350.1.13.10 ity of [facility] 4.[place] [id number] [facility] [address] [facility] 2021-09-26 2021-09-26 Outpatient R RADHAMES ACEVEDO [facility] [id number] Univers 16:30:00 16:45:29 CURTIS RADHAMES ity [facility] 2021-09-26 2021-09-26 Telephone Flores [facility] 1.2.840.114 [id number] Univers 00:00:00 00:00:00 Rabia ROSEN 350.1.13.10 ity of [place] [id number] [address] 2021-09-23 2021-09-23 Nurse 1, Adc Infusion Chair [facility] 1.2. 840.114 [id number] Univers 10:00:00 12:00:00 Visit Rabia Tanner 350.1. 13.10 [facility] 4[place] [id number] [address] 2021-09-23 2021-09-23 Outpatient [facility] [id number] Univers 10:00:00 10:00:00 [facility] 2021-09-22 Nurse 1, Adc Infusion Chair [facility] 1.2. 840.114 [id number] Univers 10:00:00 12:00:00 Visit Rabia Tanner 350.1. 13.10 ity of [facility] 4[place] [id number] [address] 2021-09-22 2021-09-22 Outpatient [facility] [id number] Univers 10:00:00 10:00:00 RABIA ity [facility] 2021-09-20 2021-09-20 Nurse 1, Adc Infusion Chair [facility] 1.2. 840.114 [id number] Univers 10:00:00 12:00:00 Visit Rabia Tanner 350.1. 13.10 ity of [facility] 4[place]2.[place] [id number] [address] 2021-09-20 2021-09-20 Nurse 1, Adc Infusion Chair [facility] 1.2. 840.114 [id number] Univers 10:00:00 12:00:00 Visit Rabia Tanner 350.1. 13.10 ity of [facility] 4.[place] [id number] [address] 2021-09-20 2021-09-20 [facility] [id number] Univers 10:00:00 10:00:00 [facility] 2021-09-19 2021-09-19 Orders Doctor LULU 1.2.840.114 [id number] Univers 00:00:00 00:00:00 Only Unassigned, PENELOPE 350.1.13.[address] [facility] 4.2.7.2.686 Ernst as [id number] [address] 2021-09-16 2021-09-16 Nurse 1, Adc Infusion Chair [facility] 1.2. 840.114 [id number] Univers 10:00:00 12:00:00 Visit Rbaia Tanner 350.1. 13.10 ity of [place] [id number] [address] 2021-09-16 2021-09-16 [facility]patient [facility] [id number] Univers 10:00:00 10:00:00 RABIA [facility] 2021-09-15 2021-09-15 Outpatient [facility] [id number] Univers 16:20:00 16:20:00 [facility] 2021-09-15 2021-09-15 Nurse 1, Adc Infusion Chair [facility] 1.2. 840.114 [id number] Univers 10:00:00 12:00:00 Visit Rabia Tanner 350.1. 13.10 [facility] 4.[place] [id number] [address] 2021-09-15 2021-09-15 Outpatient [facility] [id number] Univers 10:00:00 10:00:00 RABIA ity of [facility] 2021-09-13 2021-09-13 Outpatient R FL[facility]ES [facility] [id number] Univers 10:00:00 10:00:00 RABIA ity of [facility] 2021-09-09 2021-09-09 Outpatient R DIANA CANTU [facility] [id number] Univers 07:44:23 23:59:00 ity of [facility] 2021-09-09 2021-09-09 [facility] Diana Cantu [facility] 1.2.840.114 [id number] Univers 07:44:23 23:59:00 Encounter Jerry [facility] 350.1. 13.10 ity of [place] [id number] [facility] [address] [place] 2021-09-09 2021-09-09 Staffing Assistant Darryl, Adc Lab Main [facility] 1.2.8 40.114 [id number] Univers 14:00:00 14:15:00 Visit Jessica Tannerling ROSEN 350.1. 13.10 ity of [place] [id number] Ar dical NAL [address] [facility] 2021-09-09 2021-09-09 Nurse 1, Adc Infusion Chair [facility] 1.2. 840.114 [id number] Univers 10:00:00 12:00:00 Visit Flores Rabia ROSEN 350.1. 13.10 ity of [place] 4[place] [id number] [facility] [address] [place] 2021-09-09 2021-09-09 Patient Flores [facility] 1.2.840.114 [id number] Univers 00:00:00 00:00:00 Secure Msg Rabia ROSEN 350.1.13.10 it[place] of [place] [id number] Ar dical NAL [address] [facility] 2021-09-08 2021-09-08 Nurse 1, Adc Infusion Chair [facility] 1.2. 840.114 [id number] Univers 10:00:00 12:00:00 Visit Rabia Tanner 350.1. 13.10 [facility] 4[place] [id number] [address] 2021-09-08 2021-09-08 Outpatient [facility] [id number] Univers 10:00:00 10:00:00 [facility] 2021-09-06 2021-09-06 Nurse 1, Adc Infusion Chair [facility] 1.2. 840.114 [id number] Univers 10:00:00 12:00:00 Visit Rabia Tanner 350.1. 13.10 ity of [place] [id number] [address] 2021-09-06 2021-09-06 Outpatient [facility] [id number] Univers 10:00:00 10:00:00 [facility] 2021-09-06 2021-09-06 Outpatient [facility] [id number] Univers 10:00:00 10:00:00 [facility] 2021-09-02 2021-09-02 Nurse 1, Adc Infusion Chair [facility] 1.2. 840.114 [id number] Univers 10:00:00 12:00:00 Visit Rabia Tanner 350.1. 13.10 ity of [place] [id number] [address] 2021-09-02 2021-09-02 Outpatient [facility] [id number] [id number] Univers 10:00:00 10:00:00 [facility] 2021-09-01 2021-09-01 Outpatient [facility] [id number] Univers 10:00:00 10:00:00 [facility] 2021-08-30 2021-08-30 Nurse 1, Adc Infusion Chair [facility] 1.2. 840.114 [id number] Univers 10:00:00 12:00:00 Visit Rabia Tanner 350.1. 13.10 [facility] 4[place] [id number] [address] 2021-08-30 2021-08-30 Outpatient R [facility] [id number] Univers 10:00:00 10:00:00 RABIA [facility] 2021-08-26 2021-08-26 Nurse 1, Adc Infusion Chair [facility] 1.2. 840.114 [id number] Univers 10:00:00 12:00:00 Visit Rabia Tanner 350.1. 13.10 ity of [facility] 4[place] [id number] [address] 2021-08-26 2021-08-26 Outpatient R [facility] [id number] Univers 10:00:00 10:00:00 RABIA [facility] 2021-08-25 2021-08-25 Nurse 1, Adc Infusion Chair [facility] 1.2. 840.114 [id number] Univers 10:00:00 12:00:00 Visit Rabia Tanner 350.1. 13.10 ity of [facility] 4[place] [id number] [address] 2021-08-25 2021-08-25 Outpatient [facility] [id number] Univers 10:00:00 10:00:00 RABIA [facility] 2021-08-23 2021-08-24 Outpatient [facility] [id number] Univers 16:00:00 08:05:20 RABIA [facility] 2021-08-23 2021-08-24 Telemedici [facility] 1.2.840.114 [id number] Univers 16:00:00 08:05:20 ne Visit Rabia ROSEN 350.1.13.10 ity of [place] [id number] Ar dical NAL [address] [facility] 2021-08-24 2021-08-24 Patient Yared [facility] 1.2.840.114 [id number] Univers 00:00:00 00:00:00 Secure [facility] 350.1.13.10 ity of [place] 4.2.7.2.686 Ernst as JEOVANNY?BLEA [id number] Ar eliseoal KNEY 092 [facility] OFFICE [facility] 2021-08-23 2021-08-23 Outpatient R FLORES [facility] [id number] Univers 16:00:00 16:00:00 RABIA kinney [facility] 2021-08-23 2021-08-23 Outpatient R FLORES [facility] [id number] Univers 16:00:00 16:00:00 RABIA kinney [facility] 2021-08-23 2021-08-23 Nurse 1, [facility] Infusion Chair [facility] 1.2. 840.114 [id number] Univers 10:00:00 12:00:00 Visit Rabia Tanner 350.1. 13.10 ity of [place] [id number] [facility] [address] [place] 2021-08-23 2021-08-23 Staffing Assistant Darryl, Adc Lab Main [facility] 1.2.8 40.114 [id number] Univers 09:30:00 09:45:00 Visit Rabia Tanner 350.1. 13.10 it[place] of [place] [id number] Ar florentin S[place] [address] [facility] 2021-08-23 2021-08-23 Staffing Assistant Darryl, Adc Lab Main [facility] 1.2.8 40.114 [id number] Univers 09:30:00 09:45:00 Visit Rabia Tanner 350.1. 13.10 ity of [place] [id number] Ar eliseokarlo NAL [address] [facility] 2021-08-23 2021-08-23 Outpatient R FLORES [facility] [id number] Univers 09:30:00 09:30:00 RABIALING kinney [facility] 2021-08-23 2021-08-23 Outpatient R FLORES [facility] [id number] Univers 09:30:00 09:30:00 [facility] 2021-08-20 2021-08-20 [facility] 1.2.840.114 [id number] Univers 00:00:00 00:00:00 Radhames ROSEN 350.1.13.10 it[place] [phone] Ar florentin SEXTON 044 [facility] 2021-08-18 2021-08-18 Nurse 1, Adc Infusion Chair [facility] 1.2. 840.114 [id number] Univers 09:00:00 11:00:00 Visit Flores Rabia ROSEN 350.1. 13.10 [facility] [place] [id number] [place] [id number] [place] 2021-08-18 2021-08-18 Outpatient Nagi TANNER [facility] [id number] Univers 09:00:00 09:00:00 RABIA timmymervin [facility] 2021-08-18 2021-08-18 Outpatient R FLORES [facility] [id number] Univers 09:00:00 09:00:00 RABIA [facility] 2021-08-18 2021-08-18 Erin [facility] 1.2.840.114 [id number] Univers 00:00:00 00:00:00 [facility] 350.1.13.10 ity of [place] 4.2.7.2.686 Ernst as JEOVANNY?BLEA [phone] Ar florentin GARCIA 092 [place] [facility] 2021-08-12 2021-08-12 Nurse 1, Adc Infusion Chair [facility] 1.2. 840.114 [id number] Univers 09:30:00 11:30:00 Visit Rabia Tanner 350.1. 13.10 [place] [id number] [address] 2021-08-12 2021-08-12 [id number] Univers 09:30:00 09:30:00 RABIA ity [facility] 2021-08-12 2021-08-12 Telephone [facility] 1.2.840.114 [id number] Univers 00:00:00 00:00:00 Rabia ROSEN 350.1.13.10 [place] [id number] [address] 2021-08-09 2021-08-09 Nurse 1, Adc Infusion Nurse [facility] 1.2. 840.114 [id number] Univers 09:30:00 10:00:00 Visit Rabia Tanner 350.1. 13.10 it[place] [id number] [address] 2021-08-09 2021-08-09 Nurse 1, Adc Infusion Nurse [facility] 1.2. 840.114 [id number] Univers 09:30:00 10:00:00 Visit Rabia Tanner 350.1. 13.10 [place] [phone] [address] 2021-08-09 2021-08-09 Outpatient Nagi TANNER [facility] [id number] Univers 09:30:00 09:30:00 RABIA ity [facility] 2021-08-08 2021-08-08 [facility] 1.2.262.854 [id number] Univers 13:30:00 23:59:00 Encounter Lui ROSEN 350.1.13.10 ity of [place] [id number] [facility] [address] [place] 2021-08-08 2021-08-08 Outpatient LUI CARSON [facility] [id number] Univers 00:00:00 23:59:00 LUI CUMMINS mervin [facility] 2021-08-05 2021-08-08 Outpatient R FLORES [facility] [id number] Univers 16:20:00 08:29:05 RABIA [facility] 2021-08-05 2021-08-08 Office Flores [facility] 1.2.840.114 [id number] Univers 16:20:00 08:29:05 Visit Rabia ROSEN 350.1.13.10 ity [facility] [place] [facility] [id number] Ar [address] 2021-08-08 2021-08-08 Outpatient LUI CARSON [facility] [id number] Univers 00:00:00 00:00:00 LUI CUMMINS [facility] 2021-08-08 2021-08-08 Telephone Flores [facility] 1.2.840.114 [id number] Univers 00:00:00 00:00:00 Rabia [facility] 350.1.13.10 [facility] [place] [id number] [address] 2021-08-05 2021-08-05 Outpatient R FLORES [facility] [id number] Univers 16:20:00 16:20:00 RABIA [facility] 2021-08-05 2021-08-05 Outpatient Nagi TANNER [facility] [id number] Univers 16:20:00 16:20:00 RABIA [facility] 2021-08-05 2021-08-05 Nurse 1, Adc Infusion Nurse [facility] 1.2. 840.114 [id number] Univers 09:30:00 10:00:00 Visit Rabia Tanner [place] 350.1. 13.10 ity of [place] [id number] [address] 2021-08-05 2021-08-05 Outpatient R FLORES [facility] [id number] Univers 09:30:00 09:30:00 [facility] 2021-08-04 [facility] [id number] Univers 11:23:23 23:59:00 [facility] 2021-08-04 2021-08-04 [facility] 1.2.840.114 [id number] Univers 11:23:23 23:59:00 Encounter Shahid Kinza SILAS 350.1.13.10 it[place] [id number] [address] 2021-08-04 2021-08-04 Outpatient R [facility] [id number] Univers 11:23:23 23:59:00 [facility] 2021-08-04 2021-08-04 Nurse 1, Adc Infusion Nurse [facility] 1.2. 840.114 [id number] Univers 09:30:00 10:00:00 Visit Tanner Rabia ROSEN 350.1. 13.10 it[place] of [place] [id number] [address] 2021-08-04 2021-08-04 [facility] [id number] Univers 09:30:00 09:30:00 RABIA [facility] 2021-08-02 2021-08-02 Nurse 1, Adc Infusion Nurse [facility] 1.2. 840.114 [id number] Univers 09:30:00 10:00:00 Visit Tanner Rabia ROESN 350.1. 13.10 it[place] of [place] [id number] [address] 2021-08-02 2021-08-02 Outpatient R TANNER [facility] [id number] Univers 09:30:00 09:30:00 RABIA mervin [facility] 2021-08-02 2021-08-02 Outpatient R FLORES [facility] [id number] Univers 09:30:00 09:30:00 RABIA [facility] 2021-08-01 2021-08-01 Office Yared [facility] 1.2.840.114 [id number] Univers 14:40:00 16:20:36 Visit [facility] 350.1.13.10 itZoie 4.2.7.2.686 Ernst as JEOVANNY?BLEA [id number] Ar eliseo[address] MEDICAL OFFICE BUILDING 2021-08-01 2021-08-01 Outpatient LUI CARSON [facility] [id number] Univers 14:40:00 16:20:36 LUI CUMMINS [facility] 2021-08-01 2021-08-01 Outpatient LUI CARSON [facility] [id number] Univers 14:40:00 14:40:00 LUI CUMMINS [facility] 2021-07-29 2021-07-29 Nurse 1, [facility] Infusion Nurse [facility] 1.2. 840.114 [id number] Univers 09:30:00 10:00:00 Visit Rabia Tanner 350.1. 13.10 [place] [id number] [address] 2021-07-29 2021-07-29 Outpatient Nagi TANNER [facility] [id number] Univers 09:30:00 09:30:00 RABIA [facility] 2021-07-29 2021-07-29 Outpatient R FLORES [facility] [id number] Univers 09:30:00 09:30:00 RABIA [facility] 2021-07-28 2021-07-28 Outpatient Nagi TANNER [facility] [id number] Univers 09:30:00 09:30:00 RABIA [facility] 2021-07-28 2021-07-28 Patient Florse [facility] 1.2.840.114 [id number] Univers 00:00:00 00:00:00 Secure Msg Rabia Valery SILAS 350.1.13.10 [facility] 4.2.7.[place] [id number] Ar dical NAL 231 [facility] 2021-07-27 2021-07-27 Outpatient R AIDAN ACEVEDOJordinDanny [facility] [id number] Univers 15:30:00 16:51:39 RADHAMES ACEVEDO [facility] 2021-07-27 2021-07-27 Telemedici Curtis [facility] 1.2.840.114 [id number] Univers 15:30:00 16:51:39 ne Visit Radhames ROSEN 350.1.13.10 ity of [place] [id number] Ar dickarol SEXTON 044 [facility] 2021-07-27 2021-07-27 Outpatient R RADHAMES ACEVEDO [facility] [id number] Univers 15:30:00 15:30:00 RADHAMES ACEVEDO [facility] 2021-07-26 2021-07-26 Nurse 1, [facility] Infusion Nurse [facility] 1.2. 840.114 [id number] Univers 09:30:00 10:00:00 Visit Mady Tannercarlos ROSEN 350.1. 13.10 ity of [place].2.[place]ICAL [id number] [facility] [address] [place] 2021-07-26 2021-07-26 Outpatient R FLORES [facility] [id number] Univers 09:30:00 09:30:00 [facility] 2021-07-26 2021-07-26 Outpatient R FLORES [facility] [id number] Univers 09:30:00 09:30:00 RABIA [facility] 2021-07-22 2021-07-22 Nurse 1, Adc Infusion Nurse [facility] 1.2. 840.114 [id number] Univers 09:30:00 10:00:00 Visit TannerRabia hearn 350.1. 13.10 ity of [place].2.[place] [id number] [address] 2021-07-22 2021-07-22 [facility] [id number] Univers 09:30:00 09:30:00 RABIALas [facility] 2021-07-22 2021-07-22 Outpatient R [facility] [id number] Univers 09:30:00 09:30:00 [facility] 2021-07-21 2021-07-21 Nurse 1, Adc Infusion Nurse [facility] 1.2. 840.114 [id number] Univers 09:30:00 10:00:00 Visit Rabia Tanner 350.1. 13.10 [facility] 4.2.7.[place] [id number] [address] 2021-07-21 2021-07-21 Outpatient [facility] [id number] Univers 09:30:00 09:30:00 RABIALas [facility] 2021-07-19 2021-07-19 Nurse 1, Adc Infusion Nurse [facility] 1.2. 840.114 [id number] Univers 09:30:00 10:00:00 Visit Rabia Tanner 350.1. 13.10 [facility] 4.2.7.[place] [id number] [address] 2021-07-19 2021-07-19 Outpatient [facility] [id number] Univers 09:30:00 09:30:00 RABIALas [facility] 2021-07-19 2021-07-19 Outpatient R [facility] [id number] Univers 09:30:00 09:30:00 RABIA kinney [facility] 2021-07-18 2021-07-18 Outpatient R FLORES [facility] [id number] Univers 15:00:00 15:00:00 RABIA kinney [facility] 2021-07-18 2021-07-18 Outpatient R FLORES [facility] [id number] Univers 15:00:00 15:00:00 RABIA mervin [facility] 2021-07-18 2021-07-18 Laboratory Only, Adc Pob2 Test [facility] 1.2 .840.114 [id number] Univers 11:45:00 11:45:42 Only Rabia Tanner 350.1. 13.10 ity [facility] 4.2.[place].2.[place] [id number] Ar dical [facility] 225 [facility] 2021-07-18 2021-07-18 Outpatient Nagi [facility] [id number] Univers 11:45:00 11:45:00 RABIA [facility] 2021-07-18 2021-07-18 Letter LULU Cervantes 1.2.840.114 [id number] Univers 00:00:00 00:00:00 (Out) Shira NEGRETE 350.1.13.10 it y of [facility] 4.2.7.2.686 Ernst as [id number] [address] 2021-07-18 2021-07-18 Telephone [facility] 1.2.840.114 [id number] Univers 00:00:00 00:00:00 Rabia ROSEN 350.1.13.10 ity of [place] [id number] Ar dical NAL 231 [facility] 2021-07-15 2021-07-15 Outpatient Nagi [facility] [id number] Univers 09:30:00 09:30:00 [facility] 2021-07-14 2021-07-14 Staffing Assistant Darryl, Adc Lab Main [facility] 1.2.8 40.114 [id number] Univers 12:00:00 12:15:00 Visit Rabia Tanner 350.1. 13.10 ity [facility] 4.2.7.2.[place] [id number] Ar dical [facility] 353 [facility] 2021-07-14 2021-07-14 Outpatient R [facility] [id number] Univers 12:00:00 12:00:00 RABIA kinney [facility] 2021-07-14 2021-07-14 Nurse 1, Adc Infusion Nurse [facility] 1.2. 840.114 [id number] Univers 09:30:00 10:00:00 Visit Rabia Tanner 350.1. 13.10 ity [facility] 4.2.7.2.[place]ICAL [id number] [facility] [address] [place] 2021-07-14 2021-07-14 Outpatient [facility] [id number] Univers 09:30:00 09:30:00 RABIA kinney [facility] 2021-07-14 2021-07-14 Orders Doctor LULU 1.2.840.114 [id number] Univers 00:00:00 00:00:00 Only Unassigned, PENELOPE 350.1.13.10 ity of [place] [facility] 4.2.7.2.686 Ernst as [id number] [facility] [address] 2021-07-12 2021-07-12 Outpatient Nag[facility] [id number] Univers 13:45:46 23:59:00 ISIS kinney [facility] 2021-07-12 2021-07-12 [facility] Luis [facility] 1.2.840.114 [id number] Univers 13:45:46 23:59:00 Encounter Isis ROSEN 350.1.13.10 ity [facility] 4.2.7.2.[place] C[place]US [id number] [facility] [address] 2021-07-12 2021-07-12 Outpatient R [facility] [id number] Univers 15:15:00 15:24:28 ISIS kinney [facility] 2021-07-12 2021-07-12 Office Luis F [facility] 1.2.579.257 [id number] [facility] 15:15:00 15:24:28 Visit Isis ROSEN 350.1.13.10 i ty [facility] 4.2.7.[place] [id number] Ar dical NAL 188 [facility] 2021-07-12 2021-07-12 Nurse 1, Adc Infusion Nurse [facility] 1.2. 840.114 [id number] Univers 09:30:00 10:00:00 Visit Rabia Tanner 350.1. 13.10 ity [facility] 4.2.7.2.[place] [id number] [address] 2021-07-12 2021-07-12 Orders Doctor LULU 1.2.840.[id number] [place] [address] 00:00:00 00:00:00 Only Unassigned, PENELOPE 350.1.13.10 ity of [place] [facility] 4.2.7.2.686 Ernst as [id number] [address] 2021-07-08 2021-07-08 Nurse 1, Adc Infusion Nurse [facility] 1.2. 840.114 [id number] [facility] 09:30:00 10:00:00 Visit Rabia Tanner 350.1. 13.10 ity of [facility] 4.2.7.2.[place] [id number] [address] 2021-07-08 2021-07-08 Outpatient R FLORES [facility] [id number] [facility] 09:30:00 09:30:00 RABIA kinney [facility] 2021-07-08 2021-07-08 Telephone Luis F [facility] 1.2.840.114 [id number] [facility] 00:00:00 00:00:00 Isis ROSEN 350.1.13.10 i ty of [facility] 4.2.7.2.[place] [id number] Ar dical [address] 2021-07-07 2021-07-07 Nurse 1, Adc Infusion Nurse [facility] 1.2. 840.114 [id number] Univers 09:30:00 10:00:00 Visit Rabia Tanner 350.1. 13.10 ity [facility] 4.2.7.2.[place] [id number] [address] 2021-07-07 2021-07-07 Outpatient [facility] [id number] Univers 09:30:00 09:30:00 RABIALas [facility] 2021-07-05 2021-07-05 Nurse 1, Adc Infusion Nurse [facility] 1.2. 840.114 [id number] Univers 09:30:00 11:30:00 Visit Rabia Tanner 350.1. 13.10 ity of [place] 4.2.[place].2.[place] [id number] [address] 2021-07-05 2021-07-05 Outpatient R [facility] [id number] Univers 09:30:00 09:30:00 [facility] 2021-07-05 2021-07-05 Outpatient R [facility] [id number] Univers 09:30:00 09:30:00 [facility] 2021-06-30 2021-06-30 Nurse 1, Adc Infusion Chair [facility] 1.2. 840.114 [id number] Univers 09:30:00 11:30:00 Visit Rabia Tanner 350.1. 13.10 ity of [place] 4[place]2.[place].2.[place] [id number] [address] 2021-06-30 2021-06-30 Outpatient R [facility] [id number] Univers 09:30:00 09:30:00 RABIALas [facility] 2021-06-30 2021-06-30 Outpatient R [facility] [id number] Univers 09:30:00 09:30:00 RABIA kinney [facility] 2021-06-28 2021-06-28 Nurse 1, Adc Infusion Nurse [facility] 1.2. 840.114 [id number] Univers 09:30:00 10:00:00 Visit Rabia Tanner 350.1. 13.10 ity of [place] 4.2.7.2.[address] [facility] SURGICAL [id number] [address] 2021-06-28 2021-06-28 Outpatient R [facility] [id number] Univers 09:30:00 09:30:00 RABIA kinney [facility] 2021-06-24 2021-06-24 Nurse 1, Adc Infusion Nurse [facility] 1.2. 840.114 [id number] Univers 09:30:00 10:00:00 Visit Rabia Tanner 350.1. 13.10 ity of [place] 4.2.7.2.[address] [facility] SURGICAL [id number] [address] 2021-06-24 2021-06-24 Outpatient R FLORES [facility] [id number] Univers 09:30:00 09:30:00 RABIA kinney [facility] 2021-06-22 2021-06-22 Outpatient R [facility] [id number] Univers 08:49:43 23:59:00 ity of [facility] 2021-06-22 2021-06-22 [facility] 1.2.840.114 [id number] Univers 08:49:43 23:59:00 Encounter Kinza ROSEN 350.1.13.10 ity of [place] 4.2.7.2.686 [facility] [id number] [address] 2021-06-21 2021-06-21 Nurse 1, Adc Infusion Nurse [facility] 1.2. 840.114 [id number] Univers 09:30:00 10:00:00 Visit Rabia Tanner 350.1. 13.10 ity of [place] 4.2.[place].2.[place] [id number] [place] [address] [place] 2021-06-21 2021-06-21 Outpatient R [facility] [id number] Univers 09:30:00 09:30:00 RABIA itmervin [facility] 2021-06-21 2021-06-21 Orders Doctor LULU 1.2.840.114 [id number] Univers 00:00:00 00:00:00 Only Unassigned, PENELOPE 350.1.13.10 [facility] 4.2.7.2.686 Ernst as [id number] [address] 2021-06-20 2021-06-20 Telephone [facility] 1.2.840.114 [id number] Univers 00:00:00 00:00:00 Rabia ROSEN 350.1.13.10 ity [facility] 4.2.7.2.[place] [id number] Ar dic[address] 2021-06-17 2021-06-17 Outpatient R [facility] [id number] Univers 09:30:00 09:30:00 RABIA [facility] 2021-06-16 2021-06-17 Telemedici [facility] 1.2.840.114 [id number] Univers 15:00:00 08:41:22 ne Visit Rabia ROSEN 350.1.13.10 ity [facility] 4.2.7.2.[place] [id number] Ar dic[address] 2021-06-16 2021-06-17 Outpatient R [facility] [id number] Univers 15:00:00 08:41:22 RABIA kinney [facility] 2021-06-16 2021-06-16 Outpatient R [facility] [id number] Univers 15:00:00 15:00:00 RABIA kinney [facility] 2021-06-16 2021-06-16 Outpatient R [facility] [id number] Univers 15:00:00 15:00:00 RABIA warnermervin [facility] 2021-06-14 2021-06-14 Nurse 2, Adc Infusion Chair [facility] 1.2. 840.114 [id number] Univers 09:30:19 11:30:19 Visit Rabia Tanner 350.1. 13.10 [facility] 4.2.[place] [id number] [address] 2021-06-14 2021-06-14 Outpatient R [facility] [id number] Univers 09:30:00 09:30:00 RABIA [facility] 2021-06-10 2021-06-10 Nurse 1, Adc Infusion Nurse [facility] 1.2. 840.114 [id number] Univers 09:18:54 09:48:54 Visit Rabia Tanner 350.1. 13.10 it[facility] 4.2.[place] [id number] [address] 2021-06-10 2021-06-10 Outpatient R FLORES [facility] [id number] Univers 09:30:00 09:30:00 RABIA [facility] 2021-06-07 2021-06-07 Nurse 2, Adc Infusion Chair [facility] 1.2. 840.114 [id number] Univers 09:50:02 11:50:02 Visit Rabia Tanner 350.1. 13.10 ity [facility] 4.2.[place] [id number] [address] 2021-06-07 2021-06-07 Outpatient R FLORES [facility] [id number] Univers 09:30:00 09:30:00 RABIA [facility] 2021-06-06 2021-06-06 Outpatient Nagi [facility] [id number] Univers 10:00:00 10:00:00 ZAIRA [facility] 2021-06-06 2021-06-06 Telephone Tanner, [facility] 1.2.840.114 [id number] Univers 00:00:00 00:00:00 Rabia ROSEN 350.1.13.10 ity of [place] [id number] [address] 2021-06-01 2021-06-01 Outpatient R [facility] [id number] Univers 09:30:00 09:30:00 [facility] 2021-05-[facility] 2021-05-31 Nurse 2, Adc Infusion Chair [facility] 1.2. 840.114 [id number] Univers 08:42:58 10:42:58 Visit Rabia Tanner 350.1. 13.10 ity [facility] 4.2.7.2.[place] [id number] [address] 2021-05-31 2021-05-31 Outpatient R [facility] [id number] Univers 09:30:00 09:30:00 RABIALas [facility] 2021-05-31 2021-05-31 Outpatient R [facility] [id number] Univers 08:30:00 08:30:00 [facility] 2021-05-27 2021-05-27 Nurse 2, Adc Infusion Chair [facility] 1.2. 840.114 [id number] Univers 09:37:42 11:37:42 Visit Rabia Tanner 350.1. 13.10 ity [facility] 4.2.7.2.[place] [id number] [address] 2021-05-27 2021-05-27 Outpatient R [facility] [id number] Univers 09:30:00 09:30:00 [facility] 2021-05-27 2021-05-27 Outpatient R [facility] [id number] Univers 09:30:00 09:30:00 RABIA ity [facility] 2021-05-26 2021-05-26 Outpatient R FLORES [facility] [id number] Univers 16:20:00 16:20:00 RABIALING kinney [facility] 2021-05-26 2021-05-26 Outpatient R FLORES [facility] [id number] Univers 16:20:00 16:20:00 RABIA kinney [facility] 2021-05-26 2021-05-26 Telemedici [facility] 1.2.840.114 [id number] Univers 08:08:26 08:48:26 ne Visit Rabia ROSEN 350.1.13.10 ity of [place] 4.[place].2.[place] [id number] [address] 2021-05-24 2021-05-24 Nurse 2, Adc Infusion Chair [facility] 1.2. 840.114 [id number] Univers 09:56:22 11:56:22 Visit Rabia Tanner 350.1. 13.10 ity of [place] 4.2.7.2.[place] [id number] [address] 2021-05-24 2021-05-24 Outpatient R FLORES [facility] [id number] Univers 09:30:00 09:30:00 RABIALING kinney [facility] 2021-05-24 2021-05-24 Outpatient R FLORES [facility] [id number] Univers 09:30:00 09:30:00 RABIALING kinney [facility] 2021-05-20 2021-05-20 Nurse 2, Adc Infusion Chair [facility] 1.2. 840.114 [id number] Univers 09:49:27 11:49:27 Visit Rabia Tanner 350.1. 13.10 ity of [place] 4.2.[place].2.[place] [id number] [address] 2021-05-20 2021-05-20 Outpatient [facility] [id number] Univers 09:30:00 09:30:00 RABIA [facility] 2021-05-17 2021-05-17 Nurse 2, Adc Infusion Chair [facility] 1.2. 840.114 [id number] Univers 09:24:56 11:24:56 Visit Rabia Tanner 350.1. 13.10 ity of [place].2.[place] [id number] [address] 2021-05-17 2021-05-17 Outpatient Nagi [facility] [id number] Univers 09:30:00 09:30:00 RABIA mervin [facility] 2021-05-13 2021-05-13 Outpatient Nagi [facility] [id number] [facility] 09:30:00 09:30:00 RABIA [facility] 2021-05-12 2021-05-12 Nurse 1, Adc Infusion Chair [facility] 1.2. 840.114 [id number] Univers 08:51:29 10:51:29 Visit Rabia Tanner 350.1. 13.10 ity of [place] [id number] [address] 2021-05-12 2021-05-12 Outpatient Nagi [facility] [id number] Univers 09:00:00 09:00:00 RABIA gregoria [facility] 2021-05-10 2021-05-10 Outpatient Nagi [facility] [id number] Univers 09:30:00 09:30:00 RABIA [facility] 2021-05-09 2021-05-09 Office [facility] 1.2.840.114 [id number] Univers 09:38:07 11:28:34 Visit Zaira ROSEN 350.1.13.10 i ty of [place].2.[place] [id number] [address] 2021-05-09 2021-05-09 Outpatient R DIETER, [facility] [id number] Univers 09:30:00 11:28:34 ZAIRA itmervin [facility] 2021-05-09 2021-05-09 Outpatient Nagi BRANNON [facility] [id number] Univers 09:30:00 11:28:34 ZAIRA itmervin [facility] 2021-05-09 2021-05-09 Outpatient Nagi BRANNON [facility] [id number] Univers 09:30:00 09:30:00 [facility] 2021-05-09 2021-05-09 Orders Doctor LULU 1.2.840.114 [id number] Univers 00:00:00 00:00:00 Only Unassigned, PENELOPE 350.1.13.[address] [facility] 4.2.7.2.686 Ernst as [id number] [address] 2021-05-06 2021-05-06 [facility] [id number] Univers 15:00:00 15:00:00 RABIA kinney [facility] 2021-05-06 2021-05-06 Outpatient Nagi TANNER [facility] [id number] Univers 15:00:00 15:00:00 RABIA [facility] 2021-05-06 2021-05-06 Nurse 2, Adc Infusion Chair [facility] 1.2. 840.114 [id number] Univers 09:22:44 11:22:44 Visit Rabia Tanner 350.1. 13.10 ity [facility] [place] [phone] [facility] [address] [place] 2021-05-06 2021-05-06 Telemedici Flores [facility] 1.2.840.114 [id number] Univers 09:32:13 10:12:13 ne Visit Rabia ROSEN 350.1.13.10 ity [facility] [place] [phone] Ar dical [facility] [address] [facility] 2021-05-03 2021-05-03 Outpatient R FLORES [facility] [id number] Univers 09:30:00 09:30:00 RABIA kinney [facility] 2021-04-29 2021-04-29 Nurse 1, Adc Infusion Nurse [facility] 1.2. 840.114 [id number] Univers 09:32:29 10:02:29 Visit Rabia Tanner 350.1. 13.10 ity [place] [phone] [address] 2021-04-29 2021-04-29 Outpatient R FLORES [facility] [id number] Univers 09:30:00 09:30:00 [facility] 2021-04-26 Nurse 1, Adc Infusion Nurse [facility] 1.2. 840.114 [id number] [facility] 09:25:41 09:55:41 Visit Rabia Tanner 350.1. 13.10 [place] [id number] [address] 2021-04-26 2021-04-26 Outpatient R FLORES [facility] [id number] Univers 09:30:00 09:30:00 RABIA kineny [facility] 2021-04-25 2021-04-25 [facility] 1.[facility].840.114 [id number] Univers 00:00:00 00:00:00 Rabia Rosen 350.1.13.10 [place] [phone] [address] 2021-04-22 2021-04-22 Nurse 1, Adc Infusion Chair [facility] 1.2. 840.114 [id number] Univers 09:24:55 11:24:55 Visit Rabia Tanner 350.1. 13.10 [place] [phone] [address] 2021-04-22 2021-04-22 [facility] [id number] Univers 09:30:00 09:30:00 RABIALING kinney [facility] 2021-04-20 2021-04-20 Telephone [facility] 1.2.840.114 [id number] Univers 00:00:00 00:00:00 Rabia Rosen 350.1.13.10 [place] [phone] Ar dical nal 044 [facility] 2021-04-19 2021-04-19 Nurse 1, Adc Infusion Nurse [facility] 1.2. 840.114 [id number] Univers 09:25:22 09:55:22 Visit Tanner, Rabia Rosen 350.1. 13.10 [place] [phone] [facility] [address] [place] [address] 2021-04-19 2021-04-19 Outpatient [facility] [id number] Univers 09:30:00 09:30:00 RABIA timmymervin [facility] 2021-04-18 2021-04-18 Orders Doctor LULU 1.2.840.114 [id number] Univers 00:00:00 00:00:00 Only Unassigned, PENELOPE 350.1.13.10 ity of [place] [facility] 4.2.7.2.686 Ernst as [phone] [address] 2021-04-15 2021-04-15 Outpatient R TANNER [facility] [id number] Univers 16:20:00 17:00:25 RAIBA kinney [facility] 2021-04-15 2021-04-15 Telemedici [facility] 1.2.840.114 [id number] Univers 13:36:08 17:00:25 ne Visit Rabia ROSEN 350.1.13.10 it[place] of [place] [phone] Ar dical NAL 231 [facility] 2021-04-152021-04-15 Outpatient R FLORES [facility] 1033 [id number] Univers 09:30:00 09:30:00 RABIA kinney [facility] 2021-04-12 2021-04-12 Nurse 1, Adc Infusion Nurse [facility] 1.2. 840.114 [id number] Univers 09:18:57 09:48:57 Visit Rabia Tanner 350.1. 13.10 ity [place] [phone] [address] 2021-04-12 2021-04-12 Outpatient R FLORES [facility] 1034 [id number] Univers 09:30:00 09:30:00 RABIA kinney [facility] 2021-04-08 2021-04-08 Nurse 1, Adc Infusion Chair [facility] 1.2. 840.114 [id number] Univers 09:47:22 11:47:22 Visit Rabia Tanner 350.1. 13.10 ity [place] [phone] [address] 2021-04-08 2021-04-08 Outpatient Nagi T[facility] 1034 [id number] Univers 09:30:00 09:30:00 RABIA kinney [facility] 2021-04-07 2021-04-07 Office Luis F [facility] 1.2.338.184 [id number] Univers 15:37:12 15:55:24 Visit Isis Rosen 350.1.13.10 i ty [place] [phone] [address] 2021-04-07 2021-04-07 Outpatient R [facility] [id number] Univers 15:45:00 15:45:00 ISIS kinney [facility] 2021-04-06 2021-04-06 Telephone Flores [facility] 1.2.840.114 [id number] Univers 00:00:00 00:00:00 Rabia Rosen 350.1.13.10 [place] [phone] Ar florentin [facility] 044 [facility] 2021-04-06 2021-04-06 Telephone Flores MDDERRELL 1.2.840.114 [id number] Univers 00:00:00 00:00:00 Rabia Rosen 350.1.13.10 [place] [phone] Ar florentin sexton 044 [facility] 2021-04-06 2021-04-06 Orders Doctor LULU 1.2.840.114 [id number] Univers 00:00:00 00:00:00 Only Unassigned, PENELOPE 350.1.13.10 ity of [place] [facility] 4.2.7.2.686 Ernst as [phone] [address] 2021-04-05 2021-04-05 Office Yared [facility] 1.2.840.114 [id number] Univers 10:23:26 11:42:11 Visit [facility] 350.1.13.10 ity of [place] 4.2.7.2.686 Ernst as Jeovanny?Blea [phone] Ar eliseo[address] Office [facility] 2021-04-05 2021-04-05 Outpatient R FLORES [facility] [id number] Univers 09:30:00 09:30:00 RABIA kinney [facility] 2021-04-01 2021-04-01 Outpatient Nagi T[facility] [id number] Univers 09:30:00 09:30:00 RABIA kinney [facility] 2021-03-31 2021-03-31 Outpatient R LUIS F [facility] [id number] Univers 16:15:00 16:15:00 ISIS kinney [facility] 2021-03-29 2021-03-29 Nurse 1, Adc Infusion Nurse [facility] 1.2. 840.114 [id number] Univers 09:17:50 09:47:50 Visit Tanner, Rabia A [place] 350.1. 13.10 [place] [phone] [place]3663 [place] 2021-03-29 2021-03-29 Outpatient [facility] 1035 [id number] Univers 09:30:00 09:30:00 RABIA ity [facility] 2021-03-25 2021-03-28 [facility] 1.2.840.114 [id number] Univers 16:20:00 08:21:46 ne Visit Rabia BRITOTON 350.1.13.10 it[place] [phone] [address] 2021-03-25 2021-03-28 Outpatient Nag[facility] [id number] Univers 16:20:00 08:21:46 RABIA ity [facility] 2021-03-25 2021-03-28 Outpatient Nagi [facility] [id number] Univers 16:20:00 08:21:46 RABIA ity [facility] 2021-03-25 2021-03-28 [facility] 1.2.840.114 [id number] Univers 16:20:00 08:21:46 ne Visit Rabia BRITOTON 350.1.13.10 [facility] 4.2.7.2.[place] [phone] [address] 2021-03-25 2021-03-28 [facility] 1.2.840.114 [id number] Univers 13:17:14 08:21:46 ne Visit Rabia A [place] 350.1.13.10 it[place] of [place] 4[place].2.[place] [phone] [address] 2021-03-25 2021-03-25 Outpatient [facility] 1033 [id number] Univers 16:20:00 16:20:00 RABIA ity [facility] 2021-03-25 2021-03-25 Nurse 1, Adc Infusion Nurse [facility] 1.2. 840.114 [id number] [facility] 09:28:48 09:58:48 Visit Rabia Tanner 350.1. 13.10 [place] [phone] [address] 2021-03-25 2021-03-25 Outpatient R FLORES [facility] [id number] Univers 09:30:00 09:30:00 RABIA [facility] 2021-03-22 2021-03-22 Outpatient R FLORES [facility] [id number] Univers 09:30:00 09:30:00 RABIA [facility] 2021-03-21 2021-03-21 Nurse 1, Adc Infusion Nurse [facility] 1.2. 840.114 [id number] [facility] 14:17:08 14:47:08 Visit Rabia Tanner 350.1. 13.10 [place] [phone] [address] 2021-03-21 2021-03-21 Nurse 1, Adc Infusion Nurse [facility] 1.2. 840.114 [id number] [facility] 14:17:08 14:47:08 Visit Rabia Tanner 350.1. 13.10 [place] [id number] [address] 2021-03-21 2021-03-21 Nurse 1, Adc Infusion Nurse [facility] 1.2. 840.114 [id number] [facility] 14:17:08 14:47:08 Visit Rabia Tanner 350.1. 13.10 [place] [phone] [address] 2021-03-21 2021-03-21 Outpatient R [facility] [id number] Univers 14:00:00 14:00:00 RABIA kinney [facility] 2021-03-18 2021-03-18 Ronny [facility] 1.2.840.114 [id number] Univers 00:00:00 00:00:00 Management Rabia Valery [place] 350.1.13.10 it[place] of [place]2.[place] [phone] [address] 2021-03-18 2021-03-18 Ronny [facility] 1.2.840.114 [id number] Univers 00:00:00 00:00:00 Management Rabia Valery [place] 350.1.13.10 it[place] of [place] 4[place]2.[place].2.[place] [phone] [address] 2021-03-15 2021-03-15 Outpatient LUI CARSON [facility] [id number] Univers 11:00:00 11:00:00 LUI CUMMINS [facility] 2021-03-11 2021-03-11 Outpatient R FLORES [facility] [id number] Univers 15:00:00 15:00:00 RABIA [facility] 2021-03-11 2021-03-11 Outpatient R TANNER [facility] 1033 [id number] Univers 15:00:00 15:00:00 RABIA [facility] 2021-03-11 2021-03-11 [facility] 1.2.840.114 [id number] Univers 07:49:29 08:29:29 ne Visit Rabia Britoton 350.1.13.10 it[place] of [place] [phone] [address] 2021-03-11 2021-03-[address] [facility] 1.2.840.114 [id number] Univers 07:49:29 08:29:29 ne Visit Rabia Britoton 350.1.13.10 [place] of [place] [phone] Ar dical nal 231 [facility] 2021-03-10 2021-03-10 Nurse 1, Adc Infusion Nurse [facility] 1.2. 840.114 [id number] Univers 09:10:09 09:40:09 Visit Jessica Tannerzabeth Valery Silas 350.1. 13.10 [place]2.7.2.[place] [phone] [address] 2021-03-10 2021-03-10 Nurse 1, Adc Infusion Nurse [facility] 1.2. 840.114 [id number] Univers 09:10: 09:40:09 Visit Rabia Tanner Silas 350.1. 13.10 [place].2.[place] [id number] [address] 2021-03-10 2021-03-10 Outpatient R TANNER [facility] [id number] Univers 09:00:00 09:00:00 RABIA ity of [facility] 2021-03-08 2021-03-08 Patient [facility] 1.2.840.114 [id number] Univers 00:00:00 00:00:00 Secure Msg Rabia Rasmussen [place] 350.1.13.10 it[place] of [place] 4[place]2.[place].2.[place] [phone] Ar dical nal 044 [facility] 2021-03-08 2021-03-08 Patient [facility] 1.2.840.114 [id number] Univers 00:00:00 00:00:00 Secure Msg Rabia Rasmussen [place] 350.1.13.10 [place]2.[place].2.[place] [phone] Ar dical nal 044 [facility] 2021-03-07 2021-03-07 [facility] 1.2.840.114 [id number] Univers 10:52:00 17:01:00 Mauricio Rosen 350.1.13.10 [place].2.[place] [phone] [facility] 071 [place] 2021-03-07 2021-03-07 [facility] 1.2.840.114 [id number] Univers 10:52:00 17:01:00 Encounter Isis Rosen 350.1.13.10 [place].2.[place] [id number] [address] 2021-03-07 2021-03-07 [facility] 1.2.188.340 [id number] Univers 12:25:00 13:56:00 Isis Rosen 350.1.13.10 i ty [place].2.[place] [id number] [facility] 020 [place] 2021-03-07 2021-03-07 [facility] 1.2.497.574 [id number] Univers 12:25:00 13:56:00 Isis Rosen 350.1.13.10 i ty [place] 4[place]2.[place].2.[place] [phone] [address] 2021-03-05 2021-03-05 [facility] 1.2.840.114 [id number] Univers 00:00:00 00:00:00 Management Rabia Rosen 350.1.13.10 [place] [phone] Ar dical nal [address] [place] [address] 2021-03-05 2021-03-05 [facility] 1.2.840.114 [id number] Univers 00:00:00 00:00:00 Management Rabia Britoton 350.1.13.10 [place] [phone] Ar dical nal [address] [place] [address] 2021-03-04 2021-03-04 Laboratory Only, Adc Test [facility] 1.2.840. 114 [id number] Univers 11:07:32 11:22:32 Only Luis F Isis Rosen 350.1.13.10 it[place] of [place] 4.2.7.2.686 [facility] [phone] [address] 2021-03-04 2021-03-04 Laboratory Only, Adc Test [facility] 1.2.840. 114 [id number] Univers 11:07:32 11:22:32 Only Luis FHudsonjordan Rosen 350.1.13.10 ity of [place] 4.2.7.2.686 [facility] [phone] [address] 2021-03-04 2021-03-04 Outpatient R LUIS F [facility] [id number] Univers 11:15:00 11:15:00 ISIS kinney [facility] 2021-03-03 2021-03-03 Nurse 1, Adc Infusion Chair [facility] 1.2. 840.114 [id number] Univers 08:42:37 10:42:37 Visit Rabia Tanner 350.1. 13.10 it[place] of [place] 4.2.7.2.[address] [facility] Surgical [phone] [address] 2021-03-03 2021-03-03 Nurse 1, Adc Infusion Chair [facility] 1.2. 840.114 [id number] Univers 08:42:37 10:42:37 Visit Rabia Tanner 350.1. 13.10 it[place] of [place] 4.2.7.2.[address] [facility] Surgical [phone] [address] 2021-03-03 2021-03-03 Outpatient R FLORES [facility] [id number] Univers 09:00:00 09:00:00 RABIA kinney [facility] 2021-02-28 2021-02-28 Nurse 1, Adc Infusion Chair [facility] 1.2. 840.114 [id number] Univers 09:02:34 11:02:34 Visit Rabia Tanner 350.1. 13.10 [place] [phone] [address] 2021-02-28 2021-02-28 Outpatient R FLORES [facility] [id number] Univers 09:00:00 09:00:00 RABIA gregoria [facility] 2021-02-24 2021-02-24 Outpatient [facility] [id number] Univers 11:15:00 11:40:00 ISIS timmymervin [facility] 2021-02-24 2021-02-24 Office Luis [facility] 1.2.424.255 [id number] Univers 10:57:16 11:40:00 Visit Isis Rosen 350.1.13.10 [place] [phone] Ar dical nal 188 [facility] 2021-02-24 2021-02-24 Nurse 1, Adc Infusion Chair [facility] 1.2. 840.114 [id number] Univers 08:45:02 10:45:02 Visit Rabia Tanner 350.1. 13.10 [place] [phone] [address] 2021-02-24 2021-02-24 Outpatient R FLORES [facility] [id number] [id number] Univers 09:00:00 09:00:00 RABIA kinney [facility] 2021-02-24 2021-02-24 Prep For [facility] 1.2.840.114 [id number] Univers 00:00:00 00:00:00 Surgery Molly Rosen 350.1.13.10 [place] [phone] Ar dical nal [address] 2021-02-24 2021-02-24 Orders Doctor LAWSON 1.2.840.114 [id number] Univers 00:00:00 00:00:00 Only Unassigned, PENELOPE 350.1.13.10 ity of [place] [facility] 4.2.7.2.686 Ernst as [phone] [place] [address] [place] 2021-02-17 2021-02-17 Telemedici [facility] 1.2.840.114 [id number] Univers 14:58:34 17:09:57 ne Visit Rabia Rosen 350.1.13.10 [place] 4[place] [phone] Ar dical [facility] 231 [facility] 2021-02-17 2021-02-17 Outpatient [facility] [id number] Univers 15:40:00 15:40:00 RABIA kinney [facility] 2021-02-17 2021-02-17 Outpatient R [facility] [id number] Univers 15:40:00 15:40:00 [facility] 2021-02-14 2021-02-14 [facility] 1.2.840.114 [id number] Univers 13:30:00 23:59:00 Encounter Karina Rosen 350.1.13.10 [place].2.[place] [phone] [facility] 806 [address] 2021-02-14 2021-02-14 Nurse 1, Adc Infusion Chair [facility] 1.2. 840.114 [id number] Univers 09:50:37 10:50:37 Visit Rabia Tanner 350.1. 13.10 [place] [phone] [facility] 053 [address] 2021-02-14 2021-02-14 Outpatient R [facility] 1034 [id number] Univers 09:00:00 09:00:00 RABIA kinney [facility] 2021-02-14 2021-02-14 Orders Doctor LAWSON 1.2.840.114 [id number] Univers 00:00:00 00:00:00 Only Unassigned, PENELOPE 350.1.13.10 ity [place] [facility] 4.2.7.2.686 Ernst as [phone] [address] 2021-02-11 2021-02-11 Nurse 1, [facility] Infusion Chair [facility] 1.2. 840.114 [id number] Univers 09:45:43 10:45:43 Visit Rabia Tanner 350.1. 13.10 [place] 4[place] [phone] [facility] 053 [place] 2021-02-11 2021-02-11 Outpatient Nagi [facility] [id number] Univers 09:30:00 09:30:00 RABIA kinney [facility] 2021-02-11 2021-02-11 Orders Doctor LULU 1.2.840.114 [id number] Univers 00:00:00 00:00:00 Only Unassigned, PENELOPE 350.1.13.10 it[place] [facility] 4.2.7.2.686 Ernst as [phone] [address] 2021-02-11 2021-02-11 Orders Doctor LULU 1.2.840.114 [id number] Univers 00:00:00 00:00:00 Only Unassigned, PENELOPE 350.1.13.10 ity of [place] [facility] 4.2.7.2.686 Ernst as [id number] [address] 2021-02-10 2021-02-10 Outpatient Nagi [facility] [id number] [id number] Univers 09:00:00 09:00:00 RABIA kinney [facility] 2021-02-09 2021-02-09 Staffing Assistant Lab, [facility] Fam Pob I [facility] 1.2. 840.114 [id number] Univers 13:59:16 14:19:16 Visit Karina Prescott [facility] 350.1.13.10 ity of [place] 4.2.7.2.686 Ernst as Professio [phone] [facility] 044 [place] Office Building One 2021-02-09 2021-02-09 Outpatient Nagi [facility] [id number] Univers 13:00:00 13:55:50 KARINA kinney [facility] 2021-02-09 2021-02-09 Office [facility] 1.2.840.114 [id number] Univers 12:50:22 13:55:50 Visit Karina [facility] 350.1.13.10 i ty of [place] 4.2.7.2.686 Ernst as Professio [phone] [address] One 2021-02-09 2021-02-09 Outpatient R [facility] [id number] Univers 13:00:00 13:00:00 KARINA timmymervin [facility] 2021-02-09 2021-02-09 [facility] 1.2.686.577 [id number] Univers 00:00:00 00:00:00 Karina [facility] 350.1.13.10 i ty of [place] 4.2.7.2.686 Ernst as Professio [phone] [address] One 2021-02-07 2021-02-07 Outpatient [facility] 1034 [id number] Univers 09:00:00 09:00:00 RABIA kinney [facility] 2021-02-03 2021-02-03 Nurse 1, Adc Infusion Chair [facility] 1.2. 840.114 [id number] Univers 08:59:12 09:59:12 Visit Rabia Tanner 350.1. 13.10 [place] [id number] [address] 2021-02-03 2021-02-03 Outpatient [facility] [id number] [id number] Univers 09:00:00 09:00:00 RABIA kinney [facility] 2021-01-31 2021-01-31 Nurse 1, Adc Infusion Chair [facility] 1.2. 840.114 [id number] Univers 08:57:12 09:57:12 Visit Rabia Tanner 350.1. 13.10 [place] [id number] [address] 2021-01-31 2021-01-31 Outpatient R FLORES [facility] 1034 [id number] Univers 09:00:00 09:00:00 RABIA kinney [facility] 2021-01-27 2021-01-27 Nurse 1, Adc Infusion Nurse [facility] 1.2. 840.114 [id number] Univers 09:06:24 09:36:24 Visit Flores Rabia Rosen 350.1. 13.10 [place] [id number] [address] 2021-01-27 2021-01-27 Outpatient R FLORES [facility] 1034 [id number] [facility] 09:00:00 09:00:00 RABIA kinney [facility] 2021-01-21 2021-01-24 Telemedici [facility] 1.2.840.114 [id number] [facility] 07:49:07 08:34:33 ne Visit Rabia Rosen 350.1.13.10 [place].2.[place] [phone] Ar dical nal 231 [facility] 2021-01-24 2021-01-24 Telephone Flores [facility] 1.2.840.114 [id number] [facility] 00:00:00 00:00:00 Rabia Rosen 350.1.13.10 [place] 4[place].2.[place] [phone] Ar dical nal 044 [facility] 2021-01-21 2021-01-21 Outpatient Nagi TANNER [facility] [id number] Univers 15:00:00 15:00:00 RABIA kinney [facility] 2021-01-18 2021-01-18 Nurse 1, Adc Infusion Chair [facility] 1.2. 840.114 [id number] Univers 10:26:46 12:26:46 Visit Isiah Smith Rp 350.1.13.10 [place] [phone] [address] 2021-01-18 2021-01-18 Staffing Assistant Darryl, José Manuel Lab Main [facility] 1.2.8 40.114 [id number] Univers 10:24:24 10:39:24 Visit Rabia Tanner 350.1. 13.10 [place].2.[place] [phone] Ar dical nal 353 [facility] 2021-01-18 2021-01-18 Outpatient R ISIAH SMITH [facility] [id number] Univers 10:30:00 10:30:00 ity of [facility] 2021-01-18 2021-01-18 Ancillary Zully Valenzuela [facility] 1.2.840. 114 [id number] Univers 08:59:30 10:01:10 Visit Jess Whiting 350.1.13.10 [place].2.[place] [phone] Ar dical nal 179 [facility] 2021-01-18 2021-01-18 Outpatient R JOHANNE [facility] [id number] Univers 09:00:00 09:00:00 JESS kinney [facility] 2021-01-18 2021-01-18 Orders Doctor LULU 1.2.840.114 [id number] Univers 00:00:00 00:00:00 Only Unassigned, PENELOPE 350.1.13.10 ity of [place] [facility] 4.2.7.2.686 Ernst as [phone] [address] 2021-01-18 2021-01-18 Telephone Tanner, [facility] 1.2.840.114 [id number] Univers 00:00:00 00:00:00 Rabia Rosen 350.1.13.10 [place] [phone] Ar eliseoal nal 044 [facility] 2021-01-18 2021-01-18 Telephone Tanner, [facility] 1.2.840.114 [id number] Univers 00:00:00 00:00:00 Rabia Rosen 350.1.13.10 [place] [phone] Ar dical [facility] 044 [facility] 2021-01-18 2021-01-18 Telephone [facility] 1.2.840.114 [id number] Univers 00:00:00 00:00:00 Rabia Rosen 350.1.13.10 [place].2.[place] [phone] [facility] 044 [facility] 2021-01-18 2021-01-18 Telephone [facility] 1.2.840.114 [id number] Univers 00:00:00 00:00:00 Rabia Rosen [id number] [place] [id number] [phone] [facility] 231 [facility] 2021-01-13 2021-01-13 Telephone [facility] 1.2.840.114 [id number] Univers 00:00:00 00:00:00 Rabia Rosen [id number] [place] 4[place] [phone] [facility] 044 [facility] 2021-01-11 2021-01-11 Nurse 1, Adc Infusion Chair [facility] 1.2. 840.114 [id number] Univers 09:15:55 10:15:55 Visit Rabia Tanner 350.1. 13.10 [place] [phone] [facility] 053 [facility] 2021-01-11 2021-01-11 Outpatient R FL[facility]ES [facility] [id number] Univers 09:00:00 09:00:00 RABIA ity of [facility] 2021-01-11 2021-01-11 Telephone Flores [facility] 1.2.840.114 [id number] Univers 00:00:00 00:00:00 Rabia A [place] [id number] [place] 4[place]2.[place] [phone] Ar dical n[place] 044 [facility] 2021-01-11 2021-01-11 Refill [facility] 1.2.840.114 [id number] Univers 00:00:00 00:00:00 Rabia Valery [place] [id number] [place] 4[place]2.7.2.[place] [phone] Ar dical n[place] 231 [facility] 2021-01-11 2021-01-11 [facility] 1.2.840.114 [id number] Univers 00:00:00 00:00:00 Rabia Rosen [id number] [place] 4[place] [phone] [facility] 044 [facility] 2021-01-06 2021-01-06 [facility] 1.2.840.114 [id number] Univers 10:55:38 23:59:00 Encounter Rabia Rosen 350.1.13.10 [place] [phone] [facility] [address] [place] 2021-01-06 2021-01-06 Outpatient Nagi TANNER [facility] [id number] Univers 00:00:00 00:00:00 RABIA kinney [facility] 2021-01-03 2021-01-03 Nurse 1, Adc Infusion Nurse [facility] 1.2. 840.114 [id number] Univers 10:06:03 11:06:03 Visit Rabia Tanner 350.1. 13.10 [place] [phone] [facility] [address] [place] 2021-01-03 2021-01-03 [facility] 1033 [id number] Univers 10:00:00 10:00:00 RABIA kinney [facility] 2021-01-03 2021-01-03 Orders Doctor LULU 1.2.840.114 [id number] Univers 00:00:00 00:00:00 Only Unassigned, PENELOPE 350.1.13.10 ity of [place] [facility] 4.2.7.2.686 Ernst as [phone] [facility] [address] 2021-01-03 2021-01-03 Telephone Flores [facility] 1.2.840.114 8 [id number] Univers 00:00:00 00:00:00 Rabia Rosen 350.1.13.10 [place] [phone] [address] 2020-12-31 2020-12-31 Office Ochoa [facility] 1.2.840.114 [id number] Univers 14:48:05 15:17:32 Visit Ronaldo CARTER 350.1.13.[address] [facility] 4.2.7.2.[place] [phone] [facility] [place] [address] [facility] 2020-12-31 2020-12-31 Outpatient Nagi DOVER [facility] [id number] Univers 15:15:00 15:15:00 RONALDO kinney [facility] 2020-12-30 2020-12-30 Outpatient Nagi TANNER [facility] [id number] Univers 15:00:00 15:00:00 RABIA kinney [facility] 2020-12-30 2020-12-30 Telemedici Flores [facility] 1.2.840.114 [id number] Univers 07:46:33 08:26:33 ne Visit Rabia Rosen 350.1.13.10 [place] [phone] [address] 2020-12-23 2020-12-23 Nurse 1, Adc Infusion Chair [facility] 1.2. 840.114 [id number] Univers 07:57:05 08:57:05 Visit Rabia Tanner 350.1. 13.10 [place] of [place] [phone] [address] 2020-12-23 2020-12-23 Outpatient Nagi TANNER [facility] [id number] Univers 08:00:00 08:00:00 RABIA gregoria [facility] 2020-12-17 2020-12-17 Siva [facility] 1.2.840.114 [id number] Univers 00:00:00 00:00:00 Lui Rosen 350.1.13.10 [place] [phone] Ar dical nal 092 [facility] 2020-12-16 2020-12-16 Nurse 1, Adc Infusion Chair [facility] 1.2. 840.114 [id number] Univers 09:09:12 10:09:12 Visit Rabia Tanner 350.1. 13.10 [place] [phone] [address] 2020-12-16 2020-12-16 Outpatient Nag[facility] 1033 [id number] Univers 09:15:00 09:15:00 RABIA kinney [facility] 2020-12-09 2020-12-09 [facility] 1.2.840.114 [id number] Univers 00:00:00 00:00:00 Rabia Rosen 350.1.13.10 [place] of [place] [phone] Ar dical nal 231 [facility] 2020-12-07 2020-12-07 Nurse 1, Adc Infusion Nurse [facility] 1.2. 840.114 [id number] Univers 10:11:38 10:41:38 Visit Rabia Tanner 350.1. 13.10 [place] of [place] [phone] [address] 2020-12-07 2020-12-07 Outpatient R FLORES [facility] 1033 [id number] Univers 10:00:00 10:00:00 RABIA itmervin [facility] 2020-11-29 2020-11-29 Outpatient R FLORES [facility] 1033 [id number] Univers 16:00:00 16:00:00 RABIA itmervin [facility] 2020-11-29 2020-11-29 Telemedici [facility] 1.2.840.114 [id number] Univers 10:06:44 10:26:44 ne Visit Rabia A [place] 350.1.13.10 it[place] of [place] 4[place] [phone] Ar dical nal 231 [facility] 2020-11-05 2020-11-05 Telephone [facility] 1.2.840.114 8 [id number] Univers 00:00:00 00:00:00 Rabia A [place] 350.1.13.10 it[place] of [place] [phone] Ar dical nal 231 [facility] 2020-11-04 2020-11-04 Patient [facility] 1.2.840.114 [id number] Univers 00:00:00 00:00:00 Secure Msg Rabia A [place] 350.1.13.10 [place] of [place] [phone] Ar dical nal 231 [facility] 2020-11-02 2020-11-02 Outpatient R FLORES [facility] [id number] Univers 15:00:00 15:00:00 RABIA itmervin [facility] 2020-11-02 2020-11-02 Staffing Assistant José Manuel Andrews Lab Main [facility] 1.2.8 40.114 [id number] Univers 08:48:46 09:03:46 Visit Aleks Tannerth Valery [place] 350.1. 13.10 [place] of [place] [phone] Ar dical nal 353 [facility] 2020-11-02 2020-11-02 [facility]ici [facility] 1.2.840.114 [id number] Univers 07:56:52 08:36:52 ne Visit Rabia Rosen 350.1.13.10 [place] of [place] [phone] [facility] 231 [facility] 2020-11-02 2020-11-02 Orders Doctor LULU 1.2.840.114 [id number] Univers 00:00:00 00:00:00 Only Unassigned, PENELOPE 350.1.13.10 ity of [place] [facility] 4.2.7.2.686 Ernst as [phone] [address] 2020-10-15 2020-10-15 Telephone Tanner, [facility] 1.2.840.114 8 [id number] Univers 00:00:00 00:00:00 Rabia Rosen 350.1.13.10 [place] [phone] [facility] nal 044 [facility] 2020-10-14 2020-10-14 [facility] 1.2.840.114 [id number] [facility] 00:00:00 00:00:00 Rabia Rosen 350.1.13.10 [place] [phone] [facility] 231 [facility] 2020-10-13 2020-10-13 Outpatient R FLORES [facility] 1032 [id number] Univers 12:30:00 12:30:00 RABIA ity of [facility] 2020-10-13 2020-10-13 Staffing Assistant José Manuel Andrews Lab Main [facility] 1.2.8 40.114 [id number] Univers 11:29:42 11:44:42 Visit Rabia Tanner 350.1. 13.10 [place] [phone] [facility] 353 [facility] 2020-10-07 2020-10-07 Telemedici FloresSH[facility] 1.2.840.114 [id number] Univers 07:41:15 15:48:07 ne Visit Rabia Rosen 350.1.13.10 [place] of [place] [phone] Ar dical nal 231 [facility] 2020-10-07 2020-10-07 Outpatient R FLORES [facility] 1032 [id number] Univers 15:00:00 15:00:00 RABIA kinney of [facility] 2020-09-27 2020-09-27 Patient Mark AnthonySH[facility] 1.2.840.114 [id number] Univers 00:00:00 00:00:00 Outreach Elmer WERNER 350.1.13.10 i ty of [facility] [place]2.7.2.[place] [phone] Ar dical [address] [place] 2020-09-17 2020-09-17 Hospital [facility] 1.2.840.114 [id number] Univers 07:30:00 10:09:00 Encounter Lulu Rosen 350.1.13.10 ity of [place] [phone] [facility] [address] [place] 2020-09-17 2020-09-17 Telephone P[facility] 1.2.293.561 [id number] Univers 00:00:00 00:00:00 Molly Rosen 350.1.13.10 [place] [phone] Ar dical nal 204 [facility] 2020-09-16 2020-09-16 Laboratory Only, Adc Test [facility] 1.2.840. 114 [id number] Univers 08:55:15 09:10:15 Only Lulu Swanson 350.1.13 .10 [place] [phone] [facility] [address] 2020-09-16 2020-09-16 Outpatient R SKY [facility] [id number] Univers 08:45:00 08:45:00 LULU kinney of [facility] 2020-09-16 2020-09-16 Orders Doctor LULU 1.2.840.114 [id number] Univers 00:00:00 00:00:00 Only Unassigned, PENELOPE 350.1.13.10 ity of [place] [facility] 4.2.7.2.686 Ernst as [phone] [address] 2020-09-03 2020-09-03 Office [facility] 1.2.840.114 [id number] Univers 12:54:52 14:10:58 Visit Lulu Rosen 350.1.13.10 i ty of [place] [phone] [facility] 188 [facility] 2020-09-03 2020-09-03 Outpatient R SKY [facility] [id number] Univers 10:45:00 10:45:00 LULU warnermervin [facility] 2020-09-03 2020-09-03 Prep For Padmini[facility] 1.2.840.114 [id number] Univers 00:00:00 00:00:00 Surgery Molly Rosen 350.1.13.10 [place] [phone] Ar dical [facility] 204 [facility] 2020-08-05 2020-08-05 Telephone TannerSH[facility] 1.2.840.114 [id number] Univers 00:00:00 00:00:00 Rabia Rosen 350.1.13.10 [place] [phone] Ar dical nal 231 [facility] 2020-08-03 2020-08-04 Telemedici FloresSH[facility] 1.2.840.114 [id number] Univers 08:30:03 07:49:45 ne Visit Rabia Rosen 350.1.13.10 [place] [phone] Ar dical [facility] 231 [facility] 2020-08-04 2020-08-04 Telephone [facility] 1.2.840.114 8 [id number] Univers 00:00:00 00:00:00 Rabia Rosen 350.1.13.10 [place] [phone] [facility] 231 [facility] 2020-08-04 2020-08-04 Refill FloresSH[facility] 1.2.840.114 [id number] Univers 00:00:00 00:00:00 Rabia Rosen 350.1.13.10 [place] [phone] Ar dical [facility] 231 [facility] 2020-08-04 2020-08-04 Patient [facility] 1.2.840.114 [id number] Univers 00:00:00 00:00:00 Secure Msg Rabia Rosen 350.1.13.10 [place] [phone] [facility] 231 [facility] 2020-08-03 2020-08-03 Outpatient R FLORES [facility] 1030 [id number] Univers 15:40:00 15:40:00 RABIA itmervin [facility] 2020-08-03 2020-08-03 Orders Doctor LULU 1.2.840.114 [id number] Univers 00:00:00 00:00:00 Only Unassigned, PENELOPE 350.1.13.10 ity [place] [facility] 4.2.7.2.686 Ernst as [phone] [address] 2020-08-02 2020-08-02 Telephone Yared [facility] 1.2.840.114 [id number] [id number] Univers 00:00:00 00:00:00 Lui Rosen 350.1.13.10 [place] of [place] [phone] Ar dical nal 092 [facility] 2020-07-19 2020-07-19 Refill [facility] 1.2.840.114 [id number] Univers 00:00:00 00:00:00 Rabia Valery [place]San [place] 350.1.13.10 it[place] of [place] [phone] [facility] 231 [facility] 2020-07-19 2020-07-19 Telephone [facility] 12.840.114 8 [id number] Univers 00:00:00 00:00:00 Rabia Valery BritoSan [place] 350.1.13.10 [place] of [place] [phone] [facility] 231 [facility] 2020-07-16 2020-07-16 Outpatient Young_J MMG MMG [id number] [place] 12:59:00 12:59:00 [facility] 2020-07-16 2020-07-16 Office SkySH[facility] 12.840.114 [id number] Univers 10:28:42 10:56:44 Visit Lulu Rosen 350.1.13.10 i ty [place] [phone] [facility] 188 [facility] 2020-07-16 2020-07-16 Outpatient Nagi SWANSON [facility] [id number] Univers 10:30:00 10:30:00 LULU kinney of [facility] 2020-07-14 2020-07-14 [address]114 8 [id number] Univers 00:00:00 00:00:00 Rabia Rosen 350.1.13.10 [place] [phone] [facility] 044 [facility] 2020-07-14 2020-07-14 Telephone [facility] 12.840.114 8 [id number] Univers 00:00:00 00:00:00 Rabia Rosen 350.1.13.10 [place] of [place] [phone] Me dical nal 044 [facility] 2020-07-13 2020-07-13 Telephone [facility] 1.2.494.459 [id number] Univers 00:00:00 00:00:00 Lulu Rosen 350.1.13.10 i ty of [place] [phone] Ar dical nal 188 [facility] 2020-07-07 2020-07-07 Telephone [facility] 1.2.840.114 8 [id number] Univers 00:00:00 00:00:00 Rabia Rosen 350.1.13.10 [place] [phone] Ar dical [facility] 044 [facility] 2020-06-25 2020-06-28 [facility]medici [facility] 1.2.840.114 [id number] Univers 08:22:18 11:54:25 ne Visit Rabia Rosen 350.1.13.10 [place] [phone] [facility] 231 [facility] 2020-06-28 2020-06-28 Outpatient R FLORES [facility] 1030 [id number] Univers 09:15:00 09:15:00 RABIA kinney of [facility] 2020-06-28 2020-06-28 Staffing Assistant José Manuel Andrews Lab Main [facility] 1.2.8 40.114 [id number] Univers 08:42:11 08:57:11 Visit Rabia Tanner 350.1. 13.10 [place] [phone] Ar dical nal 353 [facility] 2020-06-28 2020-06-28 Orders Doctor LULU 1.2.840.114 [id number] Univers 00:00:00 00:00:00 Only Unassigned, PENELOPE 350.1.13.10 ity of [place] [facility] 4.2.7.2.686 Ernst as [phone] [address] 2020-06-25 2020-06-25 Outpatient R [facility] [id number] Univers 15:40:00 15:40:00 RABIA ity of [facility] 2020-06-22 2020-06-22 Telephone [facility] 1.2.840.114 8 [id number] Univers 00:00:00 00:00:00 Rabia Rosen 350.1.13.10 [place] [phone] [address] 2020-06-22 2020-06-22 Orders Doctor LULU 1.2.840.114 [id number] Univers 00:00:00 00:00:00 Only Unassigned, PENELOPE 350.1.13.10 ity of [place] [facility] 4.2.7.2.686 Ernst as [phone] [address] 2020-06-17 2020-06-17 [facility] 1.2.840.114 8 [id number] Univers 00:00:00 00:00:00 Rabia Rosen 350.1.13.10 [place] [phone] [address] 2020-06-16 2020-06-16 [facility] 1.2.840.114 8 [id number] Univers 00:00:00 00:00:00 Rabia Rosen 350.1.13.10 [place] [phone] [address] 2020-06-16 2020-06-16 Telephone [facility] 1.2.840.114 [id number] Univers 00:00:00 00:00:00 Lui Rosen 350.1.13.10 [place] 4[place] [phone] [address] 2020-06-15 2020-06-15 [facility]patient [facility] 1029 [id number] Univers 10:20:00 10:20:00 RABIA ity of [facility] 2020-06-15 2020-06-15 Telephone [facility] 1.2.840.114 8 [id number] Univers 00:00:00 00:00:00 Rabia Rosen 350.1.13.10 [place] [phone] [facility] 231 [facility] 2020-06-11 2020-06-11 Laboratory Lab, Adc Fam Pob I [facility] 1.2. 840.114 [id number] Univers 11:03:12 11:23:12 Only Genie, [facility] 350.1.13.10 ity of [place] 4.2.7.2.686 Ernst as Professio [phone] [address] One 2020-06-11 2020-06-11 Outpatient R [facility] [id number] Univers 11:00:00 11:00:00 ity of [facility] 2020-06-07 2020-06-07 Telephone [facility] 1.2.840.114 7 [id number] Univers 00:00:00 00:00:00 Rabia Rosen 350.1.13.10 [place] [phone] [address] 2020-06-07 2020-06-07 Orders Doctor LULU 1.2.840.114 [id number] Univers 00:00:00 00:00:00 Only Unassigned, PENELOPE 350.1.13.10 ity [place] [facility] 4.2.7.2.686 Ernst as [phone] [address] 2020-05-27 2020-05-28 Telemedici [facility] 1.2.840.114 [id number] Univers 07:57:25 14:13:07 ne Visit Rabia Rosen 350.1.13.10 [place].2.[place] [phone] [address] 2020-05-27 2020-05-27 Outpatient [facility] 1029 [id number] Univers 16:00:00 16:00:00 RABIA ity [facility] 2020-05-17 2020-05-17 Telephone Tanner, [facility] 1.2.840.114 7 [id number] Univers 00:00:00 00:00:00 Rabialing Britoton 350.1.13.10 [place] of [place].2.[place] [phone] Ar dical nal 044 [facility] 2020-05-16 2020-05-16 Orders Doctor LULU 1.2.840.114 [id number] Univers 00:00:00 00:00:00 Only Unassigned, PENELOPE 350.1.13.10 ity of [place] [facility] 4.2.7.2.686 Ernst as [phone] [address] 2020-05-14 2020-05-14 Office Yared [facility] 1.2.840.114 [id number] [facility] 09:14:26 10:30:00 Visit Lui Rosen 350.1.13.10 [place] of [place].2.[place] [phone] Ar dical nal 092 [facility] 2020-05-14 2020-05-14 Outpatient R LUI CUMMINS [facility] [id number] Univers 09:20:00 09:20:00 [facility] 2020-05-11 2020-05-11 [facility]phone [facility] 1.2.840.114 7 [id number] Univers 00:00:00 00:00:00 Rabia Britoton 350.1.13.10 [place] of [place] 4[place]2.[place].2.[place] [phone] Ar dical nal 231 [facility] 2020-05-10 2020-05-10 Refill [facility] 1.2.840.114 [id number] Univers 00:00:00 00:00:00 Rabia Valery [place] 350.1.13.10 [place] of [place] 4.2.[place].2.[place] [phone] Ar dical nal 231 [facility] 2020-05-05 2020-05-05 [facility]phone [facility] 1.2.840.114 7 [id number] Univers 00:00:00 00:00:00 Rabia Britoton 350.1.13.10 [place] of [place] 4[place].2.[place] [phone] [facility] 231 [facility] 2020-04-29 2020-04-29 Orders Doctor LULU 1.2.840.114 [id number] Univers 00:00:00 00:00:00 Only Unassigned, PENELOPE 350.1.13.10 ity of [place] [facility] 4.2.7.2.686 Ernst as [phone] [address] 2020-04-27 2020-04-27 [facility] 1.2.840.114 7 [id number] Univers 00:00:00 00:00:00 Rabia Britoton 350.1.13.10 [place] 4[place].2.[place] [phone] [facility] 231 [facility] 2020-04-22 2020-04-26 Telemedici [facility] 1.2.840.114 [id number] Univers 07:49:17 10:56:47 ne Visit Rabia Rosen 350.1.13.10 [place] 4[place].2.[place] [phone] [facility] 231 [facility] 2020-04-23 2020-04-23 Telephone [facility] 1.2.840.114 7 [id number] Univers 00:00:00 00:00:00 Rabia Rosen 350.1.13.10 [place] [phone] [facility] 044 [facility] 2020-04-22 2020-04-22 Outpatient [facility] [id number] Univers 15:00:00 15:00:00 RABIA ity of [facility] 2020-04-14 2020-04-14 Telephone [facility] 1.2.840.114 7 [id number] Univers 00:00:00 00:00:00 Rabia Rasmussen [place] 350.1.13.10 [place] [phone] [address] 2020-04-05 2020-04-05 Telephone [facility] 1.2.840.114 7 [id number] Univers 00:00:00 00:00:00 Rabia Britoton 350.1.13.10 [place] of [place].2.[place] [phone] [address] 2020-03-23 2020-03-23 Outpatient [facility] 1028 [id number] Univers 10:41:17 23:59:00 RABIA ity [facility] 2020-03-23 2020-03-23 [facility] 1.2.840.114 [id number] Univers 10:41:17 23:59:00 Encounter Rabia QUACH 350.1.13.10 ity of [facility] [place]2.7.2.[place] [phone] [address] 2020-03-23 2020-03-23 Outpatient [facility] [id number] Univers 00:00:00 00:00:00 [facility] 2020-03-18 2020-03-18 [facility] 1028 [id number] Univers 16:00:00 16:00:00 RABIA ity [facility] 2020-03-18 2020-03-18 Telemedici [facility] 1.2.840.114 [id number] Univers 08:18:41 08:58:41 ne Visit Rabia Rosen 350.1.13.10 [place] of [place] [phone] [address] 2020-03-18 2020-03-18 Telephone [facility] 1.2.840.114 7 [id number] Univers 00:00:00 00:00:00 Rabia Rosen 350.1.13.10 [place] of [place] [phone] [facility] 044 [facility] 2020-03-17 2020-03-17 Orders Doctor LULU 1.2.840.114 [id number] Univers 00:00:00 00:00:00 Only Unassigned, PENELOPE 350.1.13.10 ity of [place] [facility] 4.2.7.2.686 Ernst as [phone] [address] 2020-03-04 2020-03-04 Outpatient [facility] 1028 [id number] Univers 16:15:00 16:15:00 JUAN kinney [facility] 2020-02-27 2020-02-27 Orders Doctor LULU 1.2.840.114 [id number] Univers 00:00:00 00:00:00 Only Unassigned, PENELOPE 350.1.13.10 ity of [place] [facility] 4.2.7.2.686 Ernst as [phone] [address] 2020-02-16 2020-02-16 Telephone [facility] [id number] Univers 00:00:00 00:00:00 Rabia Rosen [id number] [id number] [phone] [facility] 044 [facility] 2020-02-13 2020-02-13 [facility] [id number] Univers 14:19:44 16:52:45 ne Visit Rabia Rosen [id number] [id number] [phone] [facility] 231 [facility] 2020-02-13 2020-02-13 [id number] Univers 14:20:00 14:20:00 RABIA kinney [facility] 2020-02-13 2020-02-13 Telephone [facility] 1.2.840.114 [id number] Univers 00:00:00 00:00:00 Rabia Rosen [id number] [id number] [phone] Ar dical nal 044 [facility] 2020-02-12 2020-02-12 Outpatient R SELLERS, [facility] [id number] Univers 10:00:00 10:00:00 NORBERT kinney o f [facility] 2020-02-12 2020-02-12 Outpatient R SELLERS, [facility] [id number] Univers 10:00:00 10:00:00 [facility] gregoria o f [facility] 2020-02-03 2020-02-03 [facility]phone [facility] [id number] Univers 00:00:00 00:00:00 Lulu Rosen [id number] i ty [id number] [phone] [facility] 204 [facility] 2020-02-02 2020-02-02 Telephone [facility] 1.2.840.114 [id number] Univers 00:00:00 00:00:00 Rabia Rosen 350.1.13.10 [place] [phone] Ar dicca nal 044 [facility] 2020-01-30 2020-01-30 Office [facility] 1.2.840.114 [id number] Univers 10:04:01 11:44:36 Visit Lulu Rosen 350.1.13.10 i ty of [place] [phone] [facility] 377 [facility] 2020-01-30 2020-01-30 Outpatient R [facility] [id number] Univers 10:15:00 10:15:00 LULU itmervin of [facility] 2020-01-30 2020-01-30 Telephone [facility] 1.2.840.114 7 [id number] Univers 00:00:00 00:00:00 Rabia Rosen 350.1.13.10 [place] of [place] [phone] Ar dical nal 231 [facility] 2020-01-27 2020-01-27 Telephone Flores [facility] 1.2.840.114 7 [id number] Univers 00:00:00 00:00:00 Rabia Rosen 350.1.13.10 [place] [phone] Ar dical nal 044 [facility] 2020-01-27 2020-01-27 Telephone [facility] 1.2.773.587 [id number] Univers 00:00:00 00:00:00 Lulu Rosen 350.1.13.10 i ty of [place] [phone] [facility] 377 [facility] 2020-01-27 2020-01-27 Case Padmini [facility] 1.2.840.114 [id number] Univers 00:00:00 00:00:00 Management Molly Rosen 350.1.13.10 [place] [phone] [facility] 204 [facility] 2020-01-22 2020-01-22 Telemedici [facility] 1.2.840.114 [id number] Univers 07:58:37 17:03:57 ne Visit Rabia Rosen 350.1.13.10 [place] [phone] [facility] 231 [facility] 2020-01-22 2020-01-22 Outpatient R FLORES [facility] 1027 [id number] Univers 12:20:00 12:20:00 RABIA kinney of [facility] 2020-01-20 2020-01-20 Refill [facility] 1.2.840.114 [id number] Univers 00:00:00 00:00:00 Rabia Rosen 350.1.13.10 [place] [phone] Ar dical nal 231 [facility] 2020-01-19 2020-01-19 Outpatient [facility] 1027 [id number] Univers 09:15:00 09:15:00 RABIA kinney [facility] 2020-01-17 2020-01-17 Orders Doctor LULU 1.2.840.114 [id number] Univers 00:00:00 00:00:00 Only Unassigned, PENELOPE 350.1.13.[address] [facility] 4.2.7.2.686 Ernst as [phone] [facility] 009 Branch 2020-01-09 2020-01-09 Telephone [facility] 1.2.840.114 [id number] Univers 00:00:00 00:00:00 Lui Rosen 350.1.13.10 [place] [phone] [facility] 092 [facility] 2020-01-08 2020-01-08 Outpatient Nag[facility] 1027 [id number] Univers 13:15:00 13:15:00 JUAN kinney [facility] 2019-12-30 2019-12-30 Office Tanner, [facility] 1.2.840.114 [id number] Univers 10:17:50 11:32:54 Visit Rabia Rosen 350.1.13.10 it[place] of [place] [phone] [facility] 231 [facility] 2019-12-30 2019-12-30 Outpatient Nagi TANNER [facility] 1027 [id number] Univers 10:20:00 10:20:00 RABIA kinney [facility] 2019-12-25 2019-12-25 Telemedici [facility] 1.2.840.114 [id number] Univers 07:33:16 11:35:26 ne Visit Juan CARTER 350.1.13.[address] [facility] 4.2.7.2.[place] C[place] [phone] [facility] AND ENGEL 028 [place] [facility] 2019-12-25 2019-12-25 Outpatient Nag[facility] 1027 [id number] Univers 10:15:00 10:15:00 JUAN itmervin of [facility] 2019-11-26 2019-11-26 [facility] 1.2.840.114 7 [id number] Univers 00:00:00 00:00:00 Rabia A [place] 350.1.13.10 it[place] [phone] [address] 2019-11-24 2019-11-24 [facility] 1.2.840.114 7 [id number] Univers 00:00:00 00:00:00 Rabia A [place] 350.1.13.10 it[place] [phone] [address] 2019-11-24 2019-11-24 [facility] 1.2.840.114 7 [id number] Univers 00:00:00 00:00:00 Rabia A [place] 350.1.13.10 [place] [phone] [address] 2019-11-21 2019-11-21 [facility] 1.2.840.114 7 [id number] Univers 00:00:00 00:00:00 Rabia A [place] 350.1.13.10 [place] of [place] [phone] [address] 2019-11-20 2019-11-20 [facility] 1.2.840.114 7 [id number] Univers 00:00:00 00:00:00 Rabia A [place] 350.1.13.10 [place] of [place] [phone] [address] 2019-11-19 2019-11-19 [facility] 1.2.840.114 7 [id number] Univers 00:00:00 00:00:00 Rabia A [place] 350.1.13.10 [place] [phone] [facility] 231 [facility] 2019-11-18 2019-11-18 Telemedici [facility] 1.2.840.114 [id number] Univers 07:34:02 13:35:30 ne Visit Rabia Britoton 350.1.13.10 it[place] of [place]2.[place] [phone] [address] 2019-11-18 2019-11-18 Outpatient R [facility] [id number] [facility] 12:20:00 12:20:00 RABIA ity of [facility] 2019-11-18 2019-11-18 Orders Doctor LULU 1.2.840.114 [id number] Univers 00:00:00 00:00:00 Only Unassigned, PENELOPE 350.1.13.10 ity of [place] [facility] 4.2.7.2.686 Ernst as [phone] [address] 2019-11-17 2019-11-17 Telephone [facility] 1.2.840.114 7 [id number] Univers 00:00:00 00:00:00 Rabia A [place] 350.1.13.10 [place] of [place] [phone] [facility] 044 [facility] 2019-10-17 2019-11-14 Telemedici [facility] 1.2.840.114 [id number] Univers 08:28:34 13:09:42 ne Visit Rabia Britoton 350.1.13.10 it[place] of [place] [phone] [facility] 231 [facility] 2019-11-12 2019-11-12 Patient [facility] 1.2.840.114 [id number] Univers 00:00:00 00:00:00 Secure Msg Rabia A [place] 350.1.13.10 it[place] of [place]2.[place] [phone] [address] 2019-11-06 2019-11-06 Office Sky [facility] 1.2.840.114 [id number] Univers 13:45:34 14:00:34 Visit [facility] 350.1.13.10 it y of [place]2.[place].2.[place] - [phone] Med [address] 2019-11-06 2019-11-06 Outpatient R SKY [facility] [id number] Univers 14:00:00 14:00:00 LULU gregoria [facility] 2019-11-05 2019-11-05 Telephone [facility] 1.2.840.114 7 [id number] Univers 00:00:00 00:00:00 Rabia A [place] 350.1.13.10 it[place] of [place] [phone] [address] 2019-10-26 2019-10-26 Telephone [facility] 1.2.840.114 7 [id number] Univers 00:00:00 00:00:00 Rabia A [place] 350.1.13.10 it[place] [phone] [address] 2019-10-23 2019-10-23 [place] [facility] 1.2.840.114 7 [id number] Univers 00:00:00 00:00:00 Rabia A [place] 350.1.13.10 it[place] of [place] [phone] [address] 2019-10-17 2019-10-17 Outpatient R FLORES [facility] 1026 [id number] Univers 12:00:00 12:00:00 RABIA kinney [facility] 2019-09-17 2019-10-16 Ancillary Therapist, Adc Occup [facility] 1.2 .840.114 [id number] Univers 13:03:54 09:53:47 Visit Jess Whiting Silas 350.1.13.10 it[place] of [place] [phone] Ar dical nal 178 [facility] 2019-10-14 2019-10-15 Telemedici [facility] 1.2.840.114 [id number] Univers 09:13:19 08:23:45 ne Visit Lui Rosen 350.1.13.10 it[place] of [place] 4[place]2.[place] [phone] Ar dical nal 092 [facility] 2019-10-15 2019-10-15 Telephone [facility] 1.2.840.114 7 [id number] Univers 00:00:00 00:00:00 Rabia Britoton 350.1.13.10 it[place] of [place] [phone] Ar dical nal 044 [facility] 2019-10-14 2019-10-14 Outpatient LUI CARSON [facility] [id number] Univers 09:40:00 09:40:00 LUI CUMMINS itmervin [facility] 2019-10-13 2019-10-13 Outpatient R FLORES [facility] 1026 [id number] Univers 15:40:00 15:40:00 RABIA itmervin [facility] 2019-10-13 2019-10-13 Telephone [facility] 1.2.840.114 7 [id number] Univers 00:00:00 00:00:00 Rabia Britoton 350.1.13.10 it[place] of [place] [phone] Ar dical nal 231 [facility] 2019-10-10 2019-10-10 Patient Tanner, [facility] 1.2.840.114 [id number] Univers 00:00:00 00:00:00 Secure Msg Rabia A [place] 350.1.13.10 [place] [phone] Ar dic[address] 2019-10-09 2019-10-09 Outpatient R FLORES [facility] [id number] [id number] Univers 16:00:00 16:00:00 RABIA ity [facility] 2019-10-09 2019-10-09 [address]840.114 7 [id number] Univers 00:00:00 00:00:00 Rabia A [place] 350.1.13.10 [place] [phone] [address] 2019-10-07 2019-10-07 [facility] 1026 [id number] Univers 15:40:00 15:40:00 RABIA ity [facility] 2019-10-07 2019-10-07 [place].2.840.114 [id number] Univers 08:24:49 15:21:33 Visit Rabia Britoton 350.1.13.10 [place] [phone] [address] 2019-10-07 2019-10-07 [facility] 1.2.840.114 [id number] Univers 00:00:00 00:00:00 Rabia A [place] 350.1.13.10 it[place] 4[place].2.[place] [phone] [address] 2019-10-07 2019-10-[address]114 7 [id number] Univers 00:00:00 00:00:00 Rabia A [place] 350.1.13.10 it[place] [phone] [address] 2019-10-06 2019-10-06 [place] [facility] 1.2.840.114 7 [id number] Univers 00:00:00 00:00:00 Rabia A [place] 350.1.13.10 it[place].2.[place] [phone] Ar florentin [facility] 044 [facility] 2019-10-03 2019-10-03 Telephone [facility], [facility] 1.2.840.114 7 [id number] Univers 00:00:00 00:00:00 Rabia Rosen 350.1.13.10 it[place] of [place].2.[place] [phone] [facility] 231 [facility] 2019-09-30 2019-09-30 [facility] 1.2.840.114 7 [id number] Univers 00:00:00 00:00:00 Rabialing Rosen 350.1.13.10 it[place].2.[place] [phone] [facility] 231 [facility] 2019-09-25 2019-09-26 Telemedici [facility] 1.2.840.114 [id number] Univers 17:25:55 17:37:14 ne Visit Rabia Rosen 350.1.13.10 it[place] of [place].2.[place] [phone] [facility] 231 [facility] 2019-09-26 2019-09-26 [facility]phone [facility] 1.2.840.114 7 [id number] Univers 00:00:00 00:00:00 Rabia Rosen 350.1.13.10 [place] [phone] [address] 2019-09-26 2019-09-26 [facility] 1.2.840.114 7 [id number] Univers 00:00:00 00:00:00 Rabia Britoton 350.1.13.10 it[place] of [place] 4[place]2.7.2.[place] [phone] Ar dic[address] 2019-09-26 2019-09-26 [facility] 1.2.840.114 7 [id number] Univers 00:00:00 00:00:00 Rabia Rosen 350.1.13.10 [place].2.[place] [phone] [address] 2019-09-25 2019-09-25 [facility] 1026 [id number] Univers 15:40:00 15:40:00 RABIA kinney [facility] 2019-09-25 2019-09-25 Telephone [facility], [facility] 1.2.840.114 7 [id number] Univers 00:00:00 00:00:00 Rabialing Rosen 350.1.13.10 [place] [phone] [address] 2019-09-23 2019-09-23 Orders Doctor LULU 1.2.840.114 [id number] Univers 00:00:00 00:00:00 Only Unassigned, PENELOPE 350.1.13.10 ity of [place] [facility] 4.2.7.2.686 Ernst as [phone] [facility] 009 [address] 2019-09-10 2019-09-22 Office Trish Aviles [facility] 1. 2.840.114 [id number] Univers 09:54:30 13:44:06 Visit Juan Baires [facility] 350.1.1 3.10 it[place] of [place].2.[place] [phone] [facility] [place] [facility] 2019-09-22 2019-09-22 Outpatient R VIRY [facility] [id number] [id number] Univers 10:00:00 10:00:00 JUAN kinney [facility] 2019-09-18 2019-09-18 Telephone [facility], [facility] 1.2.840.114 7 [id number] Univers 00:00:00 00:00:00 Rabia Rosen 350.1.13.10 it[place] of [place] [phone] [address] 2019-09-18 2019-09-18 Telephone [facility] 1.2.840.114 7 [id number] Univers 00:00:00 00:00:00 Rabia A [place] 350.1.13.10 it[place] of [place] 4[place]2.[place].2.[place] [phone] [address] 2019-09-18 2019-09-18 [facility] 1.2.840.114 7 [id number] Univers 00:00:00 00:00:00 Rabia A [place] 350.1.13.10 it[place] of [place] 4[place]2.[place].2.[place] [phone] [address] 2019-09-18 2019-09-18 [facility] 1.2.840.114 7 [id number] [facility] 00:00:00 00:00:00 Rabia A [place] 350.1.13.10 it[place] of [place] 4.2.7.2.[place] [phone] [address] 2019-09-17 2019-09-17 Outpatient [facility] [id number] Univers 13:00:00 13:00:00 JESS ity [facility] 2019-09-16 2019-09-16 Office [facility] 12.840.114 [id number] Univers 08:04:32 10:07:43 Visit Rabia Britoton 350.1.13.10 it[place] of [place] 4[place]2.7.2.[place] [phone] [address] 2019-09-16 2019-09-16 Outpatient [facility] 1026 [id number] Univers 08:00:00 08:00:00 RABIA ity [facility] 2019-09-16 2019-09-16 [facility] 1.2.840.114 7 [id number] Univers 00:00:00 00:00:00 Rabia A [place] 350.1.13.10 [place] of [place] 4.2.7.2.[place] [phone] [facility] 231 [facility] 2019-09-15 2019-09-15 Telephone [facility] 1.2.840.114 7 [id number] Univers 00:00:00 00:00:00 Rabia Rasmussen [place] 350.1.13.10 it[place] of [place] 4[place]2.[place].2.[place] [phone] [facility] 044 [facility] 2019-09-10 2019-09-10 Outpatient [facility] 1026 [id number] Univers 10:10:00 10:10:00 JUAN ity [facility] 2019-09-09 2019-09-09 Telephone [facility] 1.2.840.114 7 [id number] Univers 00:00:00 00:00:00 Rabia Rasmussen Health 350.1.13.10 ity of [place] 4.2.7.2.686 Ernst as Professio [phone] [facility] 044 [place] Office [facility] One 2019-09-05 2019-09-05 Transition Karla Wagner 1.2.840.114 [id number] Univers 00:00:00 00:00:00 of Care Evelyn Hardyy 350.1.13.10 it [place] of [place] [phone] [facility] [address] [place] 2019-09-04 2019-09-04 Emergency X [facility] [id number] Univers 15:31:21 18:38:00 [facility] 2019-09-04 2019-09-[facility] [address] [facility] 1.2.518.934 [id number] Univers 15:31:21 18:38:00 Yessy Rosen 350.1.13.10 [place].2.[place] [phone] [facility] 084 [place] 2019-09-04 2019-09-04 Telephone [facility] 1.2.840.114 7 [id number] Univers 00:00:00 00:00:00 Rabia Britoton 350.1.13.10 [place] of [place] 4[place]2.7.2.[place] [phone] [address] 2019-09-04 2019-09-04 Telephone [facility] 1.2.840.114 7 [id number] Univers 00:00:00 00:00:00 Rabia Rosen 350.1.13.10 [place] of [place].2.[place] [phone] [address] 2019-09-03 2019-09-03 Telephone [facility] 1.2.840.114 7 [id number] Univers 00:00:00 00:00:00 Rabia Rosen 350.1.13.10 [place] [phone] [address] 2019-09-03 2019-09-03 Orders Doctor LULU 1.2.840.114 [id number] Univers 00:00:00 00:00:00 Only Unassigned, PENELOPE 350.1.13.10 ity of [place] [facility] 4.2.7.2.686 Ernst as [phone] [address] 2019-09-02 2019-09-02 Telephone [facility] 1.2.840.114 7 [id number] Univers 00:00:00 00:00:00 Rabia Rosen 350.1.13.10 [place].2.[place] [phone] [address] 2019-09-02 2019-09-02 Patient Mark Anthony [facility] 1.2.840.114 [id number] Univers 00:00:00 00:00:00 Secure Msg Nava SPECIALTY 350.1.13.10 ity of [facility] 4.2.7.2.[place] CENTER AT [phone] Ar florentin HANSON [address] [place] [address] 2019-08-29 2019-08-29 Orders Doctor LULU 1.2.840.114 [id number] Univers 00:00:00 00:00:00 Only Unassigned, PENELOPE 350.1.13.10 ity of [place] [facility]OSPITAL 4.2.7.2.686 Ernst as [phone] [facility] 009 [address] 2019-08-28 2019-08-28 Office [facility] 1.2.840.114 [id number] Univers 09:52:33 10:12:33 Visit [facility] 350.1.13.10 it [place] of [place].2.[place] [phone] [facility] 059 [place] Office [facility] 2019-08-28 2019-08-28 [facility] 1.2.840.114 7 [id number] Univers 00:00:00 00:00:00 Rabia Rosen 350.1.13.10 [place] [phone] [facility] 044 [facility] 2019-08-28 2019-08-28 [facility] 1.2.840.114 [id number] [facility] 00:00:00 00:00:00 Lui Rosen 350.1.13.10 [place] of [place] 4[place].7.2.[place] [phone] [facility] 092 [facility] 2019-08-27 2019-08-27 [facility]phone [facility] 1.2.840.114 [id number] [facility] 00:00:00 00:00:00 Lui Rosen 350.1.13.10 [place] of [place] 4[place]2.7.2.[place] [phone] [facility] 092 [facility] 2019-08-07 2019-08-25 [facility] 1.2.840.114 [id number] Univers 15:23:49 11:53:39 Visit Rabia Rosen 350.1.13.10 it[place] of [place] 4[place]2.7.2.[place] [phone] [facility] 231 [facility] 2019-08-25 2019-08-25 [facility]phone [facility] 1.2.840.114 7 [id number] Univers 00:00:00 00:00:00 Rabia Rosen 350.1.13.10 [place].7.2.[place] [phone] [facility] 044 [facility] 2019-08-22 2019-08-22 Telephone [facility] 1.2.840.114 7 [id number] Univers 00:00:00 00:00:00 Rabia Britoton 350.1.13.10 [place] of [place]2.7.2.[place] [phone] [facility] 231 [facility] 2019-08-13 2019-08-13 Telephone [facility] 1.2.840.114 [id number] Univers 00:00:00 00:00:00 Lui Rosen 350.1.13.10 [place] of [place] 4[place]2.7.2.[place] [phone] [facility] 092 [facility] 2019-08-13 2019-08-13 [facility] 1.2.840.114 7 [id number] Univers 00:00:00 00:00:00 Rabia Britoton 350.1.13.10 [place] of [place] 4.2.7.2.[place] [phone] [facility] 231 [facility] 2019-08-12 2019-08-12 [facility] 1.2.840.114 [id number] Univers 09:24:00 23:59:00 Encounter Rabia Rosen 350.1.13.10 [place].2.[place] [phone] [facility] 8[address] [place] 2019-08-12 2019-08-12 Orders Doctor LULU 1.2.840.114 [id number] Univers 00:00:00 00:00:00 Only Unassigned, PENELOPE 350.1.13.10 ity of [place] [facility] 4.2.7.2.686 Ernst as [phone] [facility] 009 [place] 2019-08-08 2019-08-08 [facility] 1.2.840.114 7 [id number] Univers 00:00:00 00:00:00 Rabia Rosen 350.1.13.10 [place] of [place].2.[place] [phone] [facility] 231 [facility] 2019-08-08 2019-08-08 Telephone [facility] 1.2.840.114 7 [id number] Univers 00:00:00 00:00:00 Rabia Rosen 350.1.13.10 [place].2.[place] [phone] [facility] 231 [facility] 2019-08-08 2019-08-08 Telephone [facility] 1.2.840.114 [id number] Univers 00:00:00 00:00:00 Lui Rosen 350.1.13.10 [place] 4[place]2.7.2.[place] [phone] [facility] 092 [facility] 2019-08-07 2019-08-07 Orders Doctor LULU 1.2.840.114 [id number] Univers 00:00:00 00:00:00 Only Unassigned, PENELOPE 350.1.13.10 ity of [place] [facility] 4.2.7.2.686 Ernst as [phone] [address] 2019-08-05 2019-08-05 Telephone Yared, [facility] 1.2.840.114 [id number] Univers 00:00:00 00:00:00 Lui Rosen 350.1.13.10 [place] [phone] [facility] 092 [facility] 2019-08-04 2019-08-04 [facility] 1.2.840.114 7 [id number] Univers 00:00:00 00:00:00 Rabia Rosen 350.1.13.10 [place] of [place] 4[place]2.7.2.[place] [phone] Ar dicca nal 044 [facility] 2019-07-31 2019-07-31 Telephone [facility] 1.2.840.114 [id number] Univers 00:00:00 00:00:00 Lui Rosen 350.1.13.10 [place]2.[place].2.[place] [phone] Ar dical nal 092 [facility] 2019-07-29 2019-07-29 Telephone Yared [facility] 1.2.840.114 [id number] Univers 00:00:00 00:00:00 Lui Sutton Silas [id number] [id number] [phone] Ar dical nal 092 [facility] 2019-07-29 2019-07-29 [facility]phone [facility] 1.2.840.114 [id number] Univers 00:00:00 00:00:00 Rabia Rosen [id number] [id number] [phone] Ar dical nal 044 [facility] 2019-07-25 2019-07-25 Staffing Assistant 2, [facility] 1.2.840.114 [id number] Univers 08:29:21 08:44:21 Visit Rabia Tanner 350.1. 13.10 [id number] [phone] Ar dical nal 353 [facility] 2019-07-24 2019-07-24 [facility]phone [facility] 1.2.840.114 [id number] Univers 00:00:00 00:00:00 Rabia Rosen [id number] [id number] [phone] Ar dical nal 231 [facility] 2019-07-24 2019-07-24 [facility]phone [facility] 1.2.840.114 [id number] Univers 00:00:00 00:00:00 Rabia Rosen [id number] [id number] [phone] Ar dical nal 044 [facility] 2019-07-24 2019-07-24 Orders Doctor LAWSON 1.2.840.114 [id number] Univers 00:00:00 00:00:00 Only Unassigned, PENELOPE [id number] [place] [facility] HOSPITALS 4.2.7.2.686 Ernst as [phone] [address] 2019-07-24 2019-07-24 Telephone [facility] 1.2.840.114 [id number] Univers 00:00:00 00:00:00 Rabia Rasmussen [place] 350.1.13.10 [place] [phone] Ar dical nal 044 [facility] 2019-07-23 2019-07-23 Telephone [facility] 12.840.114 [id number] Univers 00:00:00 00:00:00 Lui Rosen 350.1.13.10 [place] [phone] Ar dicca nal 092 [facility] 2019-07-23 2019-07-23 [facility] 1.2.840.114 [id number] Univers 00:00:00 00:00:00 Rabia Valery [place] 350.1.13.10 [place] [phone] Ar dical nal 044 [facility] 2019-07-23 2019-07-23 [facility] 1.2.840.114 [id number] Univers 00:00:00 00:00:00 Lui Rosen 350.1.13.10 [place] [phone] Ar dical nal 092 [facility] 2019-07-23 2019-07-23 [facility] 1.2.840.114 [id number] Univers 00:00:00 00:00:00 Rabia Valery [place] 350.1.13.10 [place] [phone] Ar dical nal 231 [facility] 2019-07-22 2019-07-22 [facility] 1.2.840.114 [id number] Univers 15:08:38 16:58:00 Visit Rabia Rosen 350.1.13.10 [place] [phone] [facility] 231 [facility] 2019-07-16 2019-07-16 Telephone [facility] 1.2.840.114 [id number] Univers 00:00:00 00:00:00 Lui Rosen 350.1.13.10 [place] [phone] [facility] 092 [facility] 2019-07-11 2019-07-11 Nurse Nurse, [facility] 1.2.840.114 [id number] Univers 11:05:31 11:22:46 Visit Rabia Tanner 350.1. 13.10 [place] [phone] [facility] 044 [facility] 2019-07-11 2019-07-11 Outpatient R [facility] SLADE [id number] Univers 06:04:00 10:51:00 LULU kinney of [facility] 2019-07-07 2019-07-07 Orders Doctor LULU 1.2.840.114 [id number] Univers 00:00:00 00:00:00 Only Unassigned, PENELOPE 350.1.13.10 ity [place] [facility] 4.2.7.2.686 [place] [phone] [address] 2019-03-27 2019-03-27 [facility]phone [facility] 1.2.840.114 [id number] Univers 00:00:00 00:00:00 Rabia Rosen 350.1.13.10 [place] [phone] [facility] 231 [facility] 2019-03-26 2019-03-26 [facility] 1.2.555.903 [id number] Univers 07:46:02 23:59:00 Encounter Jaqueline Rosen 350.1.13.10 [place] [phone] [address] 2019-03-20 2019-03-20 Siva Tanner [facility] 1.2.840.114 [id number] Univers 00:00:00 00:00:00 Rabia Rosen 350.1.13.10 [place] [phone] Ar eliseokarol [facility] 231 [facility] 2019-03-19 2019-03-19 [facility] 1.2.840.114 [id number] Univers 00:00:00 00:00:00 Management Hamza Merza SPECIALTY 350.1.13.10 [place] [phone] Ar florentin ADAMSBURGMervin [address] [place] [address] 2019-03-18 2019-03-18 Office Nancy [facility] 1.2.840.114 [id number] [facility] 10:43:46 12:43:33 Visit Alex Silas 350.1.13.10 [place] [phone] Ar florentin [facility] 044 [facility] 2019-03-14 2019-03-14 [facility] 1.2.840.114 [id number] Univers 00:00:00 00:00:00 Hamza Merza SPECIALTY 350.1.13.10 [place] [phone] Ar florentin PRASHANTHMervin [address] [place] [address] 2019-03-12 2019-03-12 [facility] 1.2.840.114 [id number] Univers 00:00:00 00:00:00 Hamza Merza SPECIALTY 350.1.13.10 [place] [phone] [address] 2019-03-12 2019-03-12 Telephone [facility] 1.2.439.751 [id number] Univers 00:00:00 00:00:00 Argelia Rosen 350.1.13.10 [place] [phone] Ar dical nal 220 [facility] 2019-03-11 2019-03-11 Office Patel [facility] 1.2.840.114 [id number] [facility] 14:59:32 15:55:40 Visit Nelly Rosen 350.1.13.10 [place]2.[place] [phone] Ar dical nal 059 [facility] 2019-03-06 2019-03-06 Staffing Assistant 2, Adc Lab [facility] 1.2.840.114 [id number] Univers 14:02:12 14:17:12 Visit Dilma Navarro 350.1.13 .10 [place].2.[place] [phone] Ar dical nal 353 [facility] 2019-03-06 2019-03-06 Office ShahramMikie [facility] 1.2.840.114 [id number] [facility] 13:20:47 13:55:14 Visit Macy Rosen 350.1.13.10 [place]2.[place] [phone] Ar dical nal 044 [facility] 2019-03-06 2019-03-06 Telephone [facility] 1.2.840.114 [id number] Univers 00:00:00 00:00:00 Rabia Rosen 350.1.13.10 [place]2.[place] [phone] Ar dical nal 044 [facility] 2019-03-06 2019-03-06 Telephone [facility] 1.2.795.812 [id number] [facility] 00:00:00 00:00:00 Argelia Rosen 350.1.13.10 [place] [phone] Ar dical nal 220 [facility] 2019-03-05 2019-03-05 Ronny Tran [facility] 1.2.840.114 [id number] Univers 00:00:00 00:00:00 Management Hamza Merza SPECIALTY 350.1.13.10 [place] [phone] Ar florentin HANSON [address] [place] [address] 2019-03-05 2019-03-05 [facility] 1.2.840.114 [id number] Univers 00:00:00 00:00:00 Hamza Merza SPECIALTY 350.1.13.10 [place] [phone] Ar florentin HANSON [address] [place] [address] 2019-03-04 2019-03-04 Telephone [facility] 1.2.840.114 [id number] Univers 00:00:00 00:00:00 Rabia Rosen 350.1.13.10 [place].2.[place] [phone] Ar florentin [place] [facility] 2019-03-03 2019-03-03 [facility] 1.2.840.114 [id number] Univers 00:00:00 00:00:00 Hamza Merza SPECIALTY 350.1.13.10 [place] [phone] Ar florentin HANSON [address] [place] [address] 2019-02-28 2019-02-28 [facility]phone [facility] 1.2.840.114 [id number] Univers 00:00:00 00:00:00 Hamza Merza SPECIALTY 350.1.13.10 [place] [phone] Ar florentin HANSON [address] [place] [address] 2019-02-28 2019-02-28 Orders Doctor LULU 1.2.840.114 [id number] Univers 00:00:00 00:00:00 Only Unassigned, PENELOPE 350.1.13.10 ity [place] [facility] 4.2.7.2.686 [place] as [phone] [address] 2019-02-27 2019-02-27 Office Marc Allanyong Marie [facility] 1.2.8 40.114 [id number] [facility] 13:15:35 15:01:55 Visit Reshma Tran SPECIALTY 350.1.13 .10 [place] [phone] Ar florentin HANSON 072 [facility] 2019-02-18 2019-02-18 Telephone [facility] 1.2.840.114 [id number] Univers 00:00:00 00:00:00 Rabia Rosen 350.1.13.10 [place] [phone] Ar florentin sexton [address] [place] [address] 2019-02-18 2019-02-18 Telephone [facility] 1.2.840.114 [id number] Univers 00:00:00 00:00:00 Rabia Rosen 350.1.13.10 [place]2.[place] [phone] Ar florentin sexton 044 [facility] 2019-02-11 2019-02-11 Telephone [facility] 1.2.840.114 [id number] Univers 00:00:00 00:00:00 Rabia Rosen 350.1.13.10 [place]2.[place] [phone] [facility] carlie [address] [place] [address] 2019 2019 [facility] 1.2.840.114 [id number] [facility] 07:55:53 09:28:03 Visit Rabia Rosen 350.1.13.10 [place]2.[place] [phone] [facility] se[facility] [address] [place] [address] 2019 2019 Orders Doctor LULU 1.2.840.114 [id number] Univers 00:00:00 00:00:00 Only Unassigned, PENELOPE 350.1.13.10 ity [place] [facility]PITAL 4.2.7.2.686 Ernst as [phone] [address] 2019-02-03 2019-02-03 Telephone Tanner [facility] 1.2.840.114 [id number] Univers 00:00:00 00:00:00 Rabia Rosen 350.1.13.10 [place]2.[place] [phone] Ar florentin [address] 2019-01-31 2019-01-31 Telephone Marc [facility] 1.2.840.114 [id number] Univers 00:00:00 00:00:00 Hamza Merza SPECIALTY 350.1.13.10 [place] [phone] Ar florentin [address] 2019-01-22 2019-01-22 Orders Doctor LULU 1.2.840.114 [id number] Univers 00:00:00 00:00:00 Only Unassigned, PENELOPE 350.1.13.10 ity [place] [facility]OSPITAL 4.2.7.2.686 Ernst as [phone] [address] 2019-01-10 2019-01-10 Patient Doctor MDDERRELL 1.2.840.114 [id number] Univers 00:00:00 00:00:00 Secure Msg Unassigned, SPECIALTY 350.1.13.10 [place] [phone] Ar florentin ALF[address] 2019-01-07 2019-01-07 Orders Doctor LULU 1.2.840.114 [id number] Univers 00:00:00 00:00:00 Only Unassigned, PENELOPE 350.1.13.10 it[place] [facility]OSPITAL 4.2.7.2.686 Ernst as [phone] [address] 2018-12-23 2018-12-23 Orders Doctor LUUL 1.2.840.114 [id number] Univers 00:00:00 00:00:00 Only Unassigned, PENELOPE 350.1.13.10 ity [place] HOSPITAL 4.2.7.2.686 [place] as [phone] [address] 2018-09-13 2018-09-13 Outpatient IVAN Ceja [id number] [facility] 09:30:00 09:30:00 [facility] 2013-03-13 2013-03-13 Emergency ER RASHEED, [facility] [id number] [place] 12:36:00 15:09:00 SHERITA -[id number] Replaced by [facility] 2012-12-05 2012-12-05 Outpatient GILLES GONZALEZ [facility] [id number] [facility] 08:00:00 09:13:05 [facility] 2011-09-07 2011-09-07 Outpatient DYLAN Quach, [facility] [id number] 15:06:00 15:06:00 Austyn -[id number] Replaced by [facility] 2011-03-27 2011-03-27 Outpatient JORDAN Laura, [facility] [id number] [address] [place] 09:01:00 09:01:00 Nilay -[id number] Replaced by [facility] Results Test Description Test Time Test Comments Results Result Comments Source TROPONIN I 2022-08-09 01:39:39 Test Item Value Reference Range Interpretation Comme nts TROPONIN I (test code = 5790653713) 0.015 ng/mL <=0.034 RAUDEL (test code = RAUDEL) Reference (Normal) Range (defined by the 99th percentile reference limit): <= 0.034 ng/mL Note: Cardiac troponin begins to rise 3-4 hours after the onset of ischemia. Repeat in 4-6 hours if the sample was drawn within 3-4 hours of the onset of the symptom and found normal. Diagnosis of myocardial injury is made with acute changes in cTn concentrations with at least one serial sample above the 99th percentile upper reference limit (URL), taken together with the patient's clinical presentation. Biotin has been reported to cause a negative bias, interpret results relative to patient's use of biotin. Lab Interpretation (test code = Normal 67748-4) [facility] [id number] 22:19:13 Test Item Value Reference Range Interpretation Comments TROPONIN I (test code = 0.002 ng/mL <=0.034 0286542691) RAUDEL (test code = RAUDEL) Reference (Normal) Range (defined by the 99th percentile reference limit): <= 0.034 ng/mL Note: Cardiac troponin begins to rise 3-4 hours after the onset of ischemia. Repeat in 4-6 hours if the sample was drawn within 3-4 hours of the onset of the symptom and found normal. Diagnosis of myocardial injury is made with acute changes in cTn concentrations with at least one serial sample above the 99th percentile upper reference limit (URL), taken together with the patient's clinical presentation. Biotin has been reported to cause a negative bias, interpret results relative to patient's use of biotin. Lab Interpretation Normal (test code = 53300-3) [facility]. METABOLIC PANEL ([id number])2022-08-08 22:08:53 Test Item Value Reference Range Interpretation Comments NA (test code = 133 mmol/L 135-145 L 6462736678) K (test code = 4.3 mmol/L 3.5-5.0 6709137060) CL (test code = 98 mmol/L 98-108 8601874656) CO2 TOTAL (test code = 25 mmol/L 23-31 6582675887) AGAP (test code = 10 2-16 0240076254) BUN (test code = 16 mg/dL 7-23 4247046676) GLUCOSE (test code = 91 mg/dL 70-110 1064390159) CREATININE (test code = 0.74 mg/dL 0.50-1.04 1060844094) TOTAL BILI (test code = 0.5 mg/dL 0.1-1.9 6642985311) CALCIUM (test code = 9.2 mg/dL 8.6-10.6 5554224521) T PROTEIN (test code = 7.7 g/dL 6.3-8.2 1326692239) ALBUMIN (test code = 4.5 g/dL 3.5-5.0 5397071631) ALK PHOS (test code = 161 U/L 34-122 H 0807833748) ALTv (test code = 31 U/L 5-35 1742-6) AST(SGOT) (test code = 29 U/L 13-40 0409411777) eGFR (test code = 86.9 mL/min/1.73m2 1139308600) RAUDEL (test code = RAUDEL) Association of Glomerular Filtration Rate (GFR) and Staging of Kidney Disease* + --+ --+ ------+| GFR (mL/min/1.73 m2) ?| With Kidney Damage ?| ?Without Kidney Damage+ --------+ --------+ +| ?>90 ?| ?Stage one ?| ? Normal ?+ ---+ ---+ -------+| ?60-89 ?| ?Stage two ?| ? Decreased GFR ? + --+ --+ ------+| ?30-59 ?| ?Stage three ?| ? Stage three ? + --+ --+ ------+| ?15-29 ?| ?Stage four ? | ? Stage four ?+ ---+ ---+ -------+| ?<15 (or dialysis) ? ?| ?Stage five ? | ? Stage five ?+ ---+ ---+ -------+ *Each stage assumes the associated GFR level has been in effect for at least three months. ?Stages 1 to 5, with or without kidney disease, indicate chronic kidney disease. Notes: Determination of stages one and two (with eGFR >59mL/min/1.73 m2) requires estimation of kidney damage for at least three months as defined by structural or functional abnormalities of the kidney, manifested by either:Pathological abnormalities or Markers of kidney damage (including abnormalities in the composition of the blood or urine or abnormalities in imaging tests). Lab Interpretation Abnormal (test code = 67875-3) [facility] 22:08:12 Test Item Value Reference Range Interpretation Comments LIPASE (test code = 3637353891) 50 U/L 0-220 Lab Interpretation (test code = Normal 22025-1) [facility] WITH [id number] 21:56:08 Test Item Value Reference Range Interpretation Comments WBC (test code = 14.31 See_Comment H [Automated 1083-2) message] The system which generated this result transmit ebenezer reference range : 4.30 - 11.10 10*3/?L. The reference range was not used to interpret this result as normal/abnormal . RBC (test code = 4.48 See_Comment [Automated 056-8) message] The system which generated this result transmit ebenezer reference range : 3.93 - 5.25 10*6/?L. The reference range was not used to interpret this result as normal/abnormal . HGB (test code = 12.0 g/dL 11.6-15.0 718-7) HCT (test code = 36.8 % 35.7-45.2 4544-3) MCV (test code = 82.1 fL 80.6-95.5 787-2) MCH (test code = 26.8 pg 25.9-32.8 785-6) MCHC (test code = 32.6 g/dL 31.6-35.1 786-4) RDW-SD (test code = 45.5 fL 39.0-49.9 57458-0) RDW-CV (test code = 15.2 % 12.0-15.5 788-0) PLT (test code = 386 See_Comment H [Automated 777-3) message] The system which generated this result transmit ebenezer reference range : 166 - 358 10*3/ ?L. The reference range was not u sed to interpret th is result as normal/abnormal . MPV (test code = 10.0 fL 9.5-12.9 76407-9) NRBC/100 WBC (test 0.0 See_Comment [Automat ed code = 2124474761) message] The system which generated this result transmit ebenezer reference range : 0.0 - 10.0 /100 WBCs. The reference range was not used to interpret this result as normal/abnormal . NRBC x10^3 (test code See_Comment [Auto mated = 5572017597) message] The system which generated this result transmit ebenezer reference range : 10*3/?L. The reference range was not used to interpret this result as normal/abnormal . GRAN MAT (NEUT) % 80.4 % (test code = 770-8) IMM GRAN % (test code 0.60 % = 1209865866) LYMPH % (test code = 11.5 % 736-9) MONO % (test code = 6.8 % 5905-5) EOS % (test code = 0.3 % 713-8) BASO % (test code = 0.4 % 706-2) GRAN MAT x10^3(ANC) 11.49 10*3/uL 1.88-7.09 H (test code = 0809718834) IMM GRAN x10^3 (test 0.09 10*3/uL 0.00-0.06 H code = 5161533738) LYMPH x10^3 (test code 1.65 10*3/uL 1.32-3.29 = 731-0) MONO x10^3 (test code 0.98 10*3/uL 0.33-0.92 H = 742-7) EOS x10^3 (test code = 0.04 10*3/uL 0.03-0.39 711-2) BASO x10^3 (test code 0.06 10*3/uL 0.01-0.07 = 704-7) Lab Interpretation Abnormal (test code = 34321-8) [facility] 17:38:57 Test Item Value Reference Range Interpretation Comments MAGNESIUM (test code = 4999828884) 2.0 mg/dL 1.7-2.4 Lab Interpretation (test code = Normal 35748-4) [facility]. METABOLIC PANEL (61630)2022-04-07 17:38:36 Test Item Value Reference Range Interpretation Comments NA (test code = 142 mmol/L 135-145 1757176844) K (test code = 4.1 mmol/L 3.5-5 7784334379) CL (test code = 104 mmol/L 98-108 9490910965) CO2 TOTAL (test code = 29 mmol/L 23-31 5750885821) AGAP (test code = 2-16 4169340033) BUN (test code = 9 mg/dL 7-23 4690650315) GLUCOSE (test code = 90 mg/dL 70-110 0464336629) CREATININE (test code = 0.64 mg/dL 0.5-1.04 0360312967) TOTAL BILI (test code = 0.3 mg/dL 0.1-1.1 4028878596) CALCIUM (test code = 9.6 mg/dL 8.6-10.6 6715514003) T PROTEIN (test code = 7.2 g/dL 6.3-8.2 3300338212) ALBUMIN (test code = 4.3 g/dL 3.5-5 1528301669) ALK PHOS (test code = 135 U/L 34-122 H 1424383141) ALTv (test code = 18 U/L 5-35 1742-6) AST(SGOT) (test code = 22 U/L 13-40 0231782770) eGFR (test code = mL/min/1.73m2 6714745916) RAUDEL (test code = RAUDEL) Association of Glomerular Filtration Rate (GFR) and Staging of Kidney Disease* + --+ --+ ------+| GFR (mL/min/1.73 m2) ?| With Kidney Damage ?| ?Without Kidney Damage+ --------+ --------+ +| ?>90 ?| ?Stage one ?| ? Normal ?+ ---+ ---+ -------+| ?60-89 ?| ?Stage two ?| ? Decreased GFR ? + --+ --+ ------+| ?30-59 ?| ?Stage three ?| ? Stage three ? + --+ --+ ------+| ?15-29 ?| ?Stage four ? | ? Stage four ?+ ---+ ---+ -------+| ?<15 (or dialysis) ? ?| ?Stage five ? | ? Stage five ?+ ---+ ---+ -------+ *Each stage assumes the associated GFR level has been in effect for at least three months. ?Stages 1 to 5, with or without kidney disease, indicate chronic kidney disease. Notes: Determination of stages one and two (with eGFR >59mL/min/1.73 m2) requires estimation of kidney damage for at least three months as defined by structural or functional abnormalities of the kidney, manifested by either:Pathological abnormalities or Markers of kidney damage (including abnormalities in the composition of the blood or urine or abnormalities in imaging tests). Lab Interpretation Abnormal (test code = 15428-6) [facility]OSPH[facility]US2022-[facility]-30 17:38:20 Test Item Value Reference Range Interpretation Comments PHOSPHORUS (test code = 6967256888) 4.5 mg/dL 2.5-5 Lab Interpretation (test code = Normal 11450-7) [facility] CenterTRIGLY[facility]ERIDES2022-09-30 17:38:20 Test Item Value Reference Range Interpretation Comments TRIG (test code = 9378690242) 245 mg/dL 30-170 H Lab Interpretation (test code = Abnormal 44003-2) [facility] WITH [id number] 16:58:16 Test Item Value Reference Range Interpretation Comments WBC (test code = See_Comment H [Automated 6690-2) message] The sy stem which generated this result transmitted reference range : 4.30 - 11.10 10*3/?L. The reference range was not used to interpret this result as normal/abnormal . RBC (test code = See_Comment [Automated 789-8) message] The sy stem which generated this result transmitted reference range : 3.93 - 5.25 10*6/?L. The reference range was not used to interpret this result as normal/abnormal . HGB (test code = 11.7 g/dL 11.6-15 718-7) HCT (test code = 36.0 % 35.7-45.2 4544-3) MCV (test code = 85.5 fL 80.6-95.5 787-2) MCH (test code = 27.8 pg 25.9-32.8 785-6) MCHC (test code = 32.5 g/dL 31.6-35.1 786-4) RDW-SD (test code = 43.8 fL 39-49.9 55304-8) RDW-CV (test code = 14.1 % 12-15.5 788-0) PLT (test code = See_Comment [Automated 777-3) message] The sy stem which generated this result transmitted reference range : 166 - 358 10*3/ ?L. The reference r jolynn was not used to interpret this result as normal/abnormal . MPV (test code = 10.6 fL 9.5-12.9 33562-3) NRBC/100 WBC (test See_Comment [Automat ed code = 3936019136) message] The system which generated this result transmitted reference range : 0.0 - 10.0 /100 WBCs. The refer ence range was not u sed to interpret th is result as normal/abnormal . NRBC x10^3 (test code See_Comment [Auto mated = 8875768563) message] The s ystem which generated this result transmitted reference range : 10*3/?L. The reference range was not used to interpret this result as normal/abnormal . GRAN MAT (NEUT) % 59.6 % (test code = 770-8) IMM GRAN % (test code 0.30 % = 0248893496) LYMPH % (test code = 28.7 % 736-9) MONO % (test code = 8.2 % 5905-5) EOS % (test code = 2.5 % 713-8) BASO % (test code = 0.7 % 706-2) GRAN MAT x10^3(ANC) 7.20 10*3/uL 1.88-7.09 H (test code = 3464645830) IMM GRAN x10^3 (test 0.04 10*3/uL 0-0.06 code = 3359310428) LYMPH x10^3 (test code 3.47 10*3/uL 1.32-3.29 H = 731-0) MONO x10^3 (test code 0.99 10*3/uL 0.33-0.92 H = 742-7) EOS x10^3 (test code = 0.30 10*3/uL 0.03-0.39 711-2) BASO x10^3 (test code 0.08 10*3/uL 0.01-0.07 H = 704-7) Lab Interpretation Abnormal (test code = 99213-9) [facility]. METABOLIC PANEL (63524)2022-03-31 18:31:14 Test Item Value Reference Range Interpretation Comments NA (test code = 141 mmol/L 135-145 0045128301) K (test code = 4.4 mmol/L 3.5-5 1043901564) CL (test code = 104 mmol/L 98-108 8298747842) CO2 TOTAL (test code = 27 mmol/L -31 1794576343) AGAP (test code = 2-16 9035095344) BUN (test code = 15 mg/dL 7-23 8990420188) GLUCOSE (test code = 86 mg/dL 70-110 0759151767) CREATININE (test code = 0.71 mg/dL 0.5-1.04 2695349548) TOTAL BILI (test code = 0.4 mg/dL 0.1-1.7 9819090860) CALCIUM (test code = 9.4 mg/dL 8.6-10.6 6217430008) T PROTEIN (test code = 6.8 g/dL 6.3-8.2 6647159782) ALBUMIN (test code = 4.1 g/dL 3.5-5 5711396426) ALK PHOS (test code = 130 U/L 34-122 H [id number]) ALTv (test code = 17 U/L 5-35 1742-6) AST(SGOT) (test code = 21 U/L 13-40 3775615923) eGFR (test code = mL/min/1.73m2 1667857906) RAUDEL (test code = RAUDEL) Association of Glomerular Filtration Rate (GFR) and Staging of Kidney Disease* + --+ --+ ------+| GFR (mL/min/1.73 m2) ?| With Kidney Damage ?| ?Without Kidney Damage+ --------+ --------+ +| ?>90 ?| ?Stage one ?| ? Normal ?+ ---+ ---+ -------+| ?60-89 ?| ?Stage two ?| ? Decreased GFR ? + --+ --+ ------+| ?30-59 ?| ?Stage three ?| ? Stage three ? + --+ --+ ------+| ?15-29 ?| ?Stage four ? | ? Stage four ?+ ---+ ---+ -------+| ?<15 (or dialysis) ? ?| ?Stage five ? | ? Stage five ?+ ---+ ---+ -------+ *Each stage assumes the associated GFR level has been in effect for at least three months. ?Stages 1 to 5, with or without kidney disease, indicate chronic kidney disease. Notes: Determination of stages one and two (with eGFR >59mL/min/1.73 m2) requires estimation of kidney damage for at least three months as defined by structural or functional abnormalities of the kidney, manifested by either:Pathological abnormalities or Markers of kidney damage (including abnormalities in the composition of the blood or urine or abnormalities in imaging tests). Lab Interpretation Abnormal (test code = 35090-8) [facility] 18:31:14 Test Item Value Reference Range Interpretation Comments MAGNESIUM (test code = 5169707381) 2.0 mg/dL 1.7-2.4 Lab Interpretation (test code = Normal 61237-7) [facility]53 Test Item Value Reference Range Interpretation Comments PHOSPHORUS (test code = 8652432260) 4.9 mg/dL 2.5-5 Lab Interpretation (test code = Normal 19092-8) [facility] 18:30:53 Test Item Value Reference Range Interpretation Comments TRIG (test code = 8073741318) 144 mg/dL 30-170 Lab Interpretation (test code = Normal 51125-0) [facility] [id number] 16:54:41 Test Item Value Reference Range Interpretation Comments WBC (test code = See_Comment [Automated 6890-2) message] The sy stem which generated this result transmitted reference range : 4.30 - 11.10 10*3/?L. The reference range was not used to interpret this result as normal/abnormal . RBC (test code = See_Comment [Automated 219-8) message] The sy stem which generated this result transmitted reference range : 3.93 - 5.25 10*6/?L. The reference range was not used to interpret this result as normal/abnormal . HGB (test code = 10.9 g/dL 11.6-15 L 718-7) HCT (test code = 33.9 % 35.7-45.2 L 4544-3) MCV (test code = 86.3 fL 80.6-95.5 787-2) MCH (test code = 27.7 pg 25.9-32.8 785-6) MCHC (test code = 32.2 g/dL 31.6-35.1 786-4) RDW-SD (test code = 45.1 fL 39-49.9 84273-7) RDW-CV (test code = 14.3 % 12-15.5 788-0) PLT (test code = See_Comment [Automated 777-3) message] The sy stem which generated this result transmitted reference range : 166 - 358 10*3/ ?L. The reference r jolynn was not used to interpret this result as normal/abnormal . MPV (test code = 10.4 fL 9.5-12.9 00859-0) NRBC/100 WBC (test See_Comment [Automat ed code = 5228220543) message] The system which generated this result transmitted reference range : 0.0 - 10.0 /100 WBCs. The refer ence range was not u sed to interpret th is result as normal/abnormal . NRBC x10^3 (test code See_Comment [Auto mated = 0595265819) message] The s ystem which generated this result transmitted reference range : 10*3/?L. The reference range was not used to interpret this result as normal/abnormal . GRAN MAT (NEUT) % 55.2 % (test code = 770-8) IMM GRAN % (test code 0.40 % = 0584826134) LYMPH % (test code = 33.4 % 736-9) MONO % (test code = 7.6 % 5905-5) EOS % (test code = 2.8 % 713-8) BASO % (test code = 0.6 % 706-2) GRAN MAT x10^3(ANC) 5.46 10*3/uL 1.88-7.09 (test code = 7706197722) IMM GRAN x10^3 (test 0.04 10*3/uL 0-0.06 code = 1271424764) LYMPH x10^3 (test code 3.31 10*3/uL 1.32-3.29 H = 731-0) MONO x10^3 (test code 0.75 10*3/uL 0.33-0.92 = 742-7) EOS x10^3 (test code = 0.28 10*3/uL 0.03-0.39 711-2) BASO x10^3 (test code 0.06 10*3/uL 0.01-0.07 = 704-7) Lab Interpretation Abnormal (test code = 48019-5) [facility]. METABOLIC PANEL (19600)2022-03-24 17:37:02 Test Item Value Reference Range Interpretation Comments NA (test code = 142 mmol/L 135-145 8152401437) K (test code = 4.3 mmol/L 3.5-5 4176100183) CL (test code = 109 mmol/L 98-108 H 2540982797) CO2 TOTAL (test code = 26 mmol/L 23-31 7666084308) AGAP (test code = 2-16 0530584411) BUN (test code = 12 mg/dL 7-23 3154538803) GLUCOSE (test code = 90 mg/dL 70-110 9885475022) CREATININE (test code = 0.73 mg/dL 0.5-1.04 6153862438) TOTAL BILI (test code = 0.2 mg/dL 0.1-1.2 8759671099) CALCIUM (test code = 9.3 mg/dL 8.6-10.6 9830918207) T PROTEIN (test code = 6.8 g/dL 6.3-8.2 0681165436) ALBUMIN (test code = 4.1 g/dL 3.5-5 7135106047) ALK PHOS (test code = 137 U/L 34-122 H 4322239264) ALTv (test code = 22 U/L 5-35 1742-6) AST(SGOT) (test code = 26 U/L 13-40 0923558018) eGFR (test code = mL/min/1.73m2 8301013323) RAUDEL (test code = RAUDEL) Association of Glomerular Filtration Rate (GFR) and Staging of Kidney Disease* + --+ --+ ------+| GFR (mL/min/1.73 m2) ?| With Kidney Damage ?| ?Without Kidney Damage+ --------+ --------+ +| ?>90 ?| ?Stage one ?| ? Normal ?+ ---+ ---+ -------+| ?60-89 ?| ?Stage two ?| ? Decreased GFR ? + --+ --+ ------+| ?30-59 ?| ?Stage three ?| ? Stage three ? + --+ --+ ------+| ?15-29 ?| ?Stage four ? | ? Stage four ?+ ---+ ---+ -------+| ?<15 (or dialysis) ? ?| ?Stage five ? | ? Stage five ?+ ---+ ---+ -------+ *Each stage assumes the associated GFR level has been in effect for at least three months. ?Stages 1 to 5, with or without kidney disease, indicate chronic kidney disease. Notes: Determination of stages one and two (with eGFR >59mL/min/1.73 m2) requires estimation of kidney damage for at least three months as defined by structural or functional abnormalities of the kidney, manifested by either:Pathological abnormalities or Markers of kidney damage (including abnormalities in the composition of the blood or urine or abnormalities in imaging tests). Lab Interpretation Abnormal (test code = 33210-1) [facility] Test Item Value Reference Range Interpretation Comments MAGNESIUM (test code = 1234706280) 1.9 mg/dL 1.7-2.4 Lab Interpretation (test code = Normal 42363-2) [facility] 17:36:42 Test Item Value Reference Range Interpretation Comments PHOSPHORUS (test code = 3395367653) 4.2 mg/dL 2.5-5 Lab Interpretation (test code = Normal 67505-7) [facility] 17:36:42 Test Item Value Reference Range Interpretation Comments TRIG (test code = 6095675287) 129 mg/dL 30-170 Lab Interpretation (test code = Normal 06514-9) [facility] [id number] 16:55:03 Test Item Value Reference Range Interpretation Comments WBC (test code = See_Comment H [Automated 3790-2) message] The sy stem which generated this result transmitted reference range : 4.30 - 11.10 10*3/?L. The reference range was not used to interpret this result as normal/abnormal . RBC (test code = See_Comment [Automated 755-8) message] The sy stem which generated this result transmitted reference range : 3.93 - 5.25 10*6/?L. The reference range was not used to interpret this result as normal/abnormal . HGB (test code = 11.6 g/dL 11.6-15 718-7) HCT (test code = 36.0 % 35.7-45.2 4544-3) MCV (test code = 86.1 fL 80.6-95.5 787-2) MCH (test code = 27.8 pg 25.9-32.8 785-6) MCHC (test code = 32.2 g/dL 31.6-35.1 786-4) RDW-SD (test code = 45.1 fL 39-49.9 85482-2) RDW-CV (test code = 14.2 % 12-15.5 788-0) PLT (test code = See_Comment H [Automated 777-3) message] The sy stem which generated this result transmitted reference range : 166 - 358 10*3/ ?L. The reference r jolynn was not used to interpret this result as normal/abnormal . MPV (test code = 10.2 fL 9.5-12.9 67468-3) NRBC/100 WBC (test See_Comment [Automat ed code = 9897429321) message] The system which generated this result transmitted reference range : 0.0 - 10.0 /100 WBCs. The refer ence range was not u sed to interpret th is result as normal/abnormal . NRBC x10^3 (test code See_Comment [Auto mated = 7234663872) message] The s ystem which generated this result transmitted reference range : 10*3/?L. The reference range was not used to interpret this result as normal/abnormal . GRAN MAT (NEUT) % 59.3 % (test code = 770-8) IMM GRAN % (test code 0.40 % = 3334285651) LYMPH % (test code = 29.6 % 736-9) MONO % (test code = 7.7 % 5905-5) EOS % (test code = 2.4 % 713-8) BASO % (test code = 0.6 % 706-2) GRAN MAT x10^3(ANC) 6.79 10*3/uL 1.88-7.09 (test code = 4666981563) IMM GRAN x10^3 (test 0.05 10*3/uL 0-0.06 code = 1085500546) LYMPH x10^3 (test code 3.39 10*3/uL 1.32-3.29 H = 731-0) MONO x10^3 (test code 0.88 10*3/uL 0.33-0.92 = 742-7) EOS x10^3 (test code = 0.27 10*3/uL 0.03-0.39 711-2) BASO x10^3 (test code 0.07 10*3/uL 0.01-0.07 = 704-7) Lab Interpretation Abnormal (test code = 03690-9) [facility] AWAKE AND [id number] 16:58:00Reason for exam:->Nocturnal seizuresDATE OF REPORT: 05/24/17CC: [id number]: art time: 10:00 amStop time: 10:26 amICD-10: R56.9CPT Code: 84309 HISTORY: 37 yo woman with nocturnal seizures MEDICATIONS: Percocet, Diamox TECHNICAL SUMMARY: This is a digital EEG recorded with 32 input channels reviewed with bipolar and referentialmontages using the modified combinatorial system nomenclature. DESCRIPTION OF RECORD: During the maximally alert state a 10-11 Hz posterior dominant rhythm was seen that was symmetric, reactive to eye opening and well regulated. More anteriorly, low voltage frontocentral beta predominated. Drowsiness was characterized by alpha attenuation and increased frontocentral theta, vertex sharp transients andPOSTS. Stage 2 sleep was reached characterized by symmetric sleep spindles and K-complexes. HV: Hyperventilation was performed for 3 minutes with good effort, leading to no significant background change. PHOTIC STIMULATION: Flash stimulation was done from 3-21 Hz; photic driving was seen; photoparoxysmal responses were absent. IMPRESSION: This is a normal EEG captured in the awake, drowsy and sleep states. CLINICAL CORRELATION: An EEG without epileptiform discharges does not necessarily preclude theclinical diagnosis of epilepsy. Amparo Hyman MDNeurophysiology/Epilepsy FellowDasandeep Amato MDNeurophysiology/Epilepsy Attending
[2022-08-13 19:02] LABS: Absolute Lymphocytes (CBC) 4.1 K/uL (0.7-4.9); Hematocrit 31.9 % (36.0-45.0); Lymphocytes % 33.5 % (15.3-44.8); MCV 82.2 fL (80-100); MPV 7.9 fL (7.6-11.3); RBC Red Blood Cell Count 3.88 M/uL (3.86-4.86)
[2022-08-13 19:18] LABS: Potassium 3.7 mmol/L (3.5-5.1)
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
[2022-08-13] MEDS ORDERED: PROMETHAZINE INJ 25 MG/ML AMP ONE (20:40)
[2022-08-13 21:08] VITALS: TEMP 97.6
[2022-08-13 21:10] VITALS: BP 130/72; O2SAT 100
== END 2022-08-13 21:03 | disposition home or self-care (01) ==
LOC: ER 18:12
DX: M54.2 Cervicalgia (principal); M54.9 Dorsalgia, unspecified; M79.671 Pain in right foot; V53.6XXA Passenger in pick-up truck or van injured in collision with car, pick-up truck or van in traffic accident, initial encounter; Z88.2 Allergy status to sulfonamides; Z88.5 Allergy status to narcotic agent; Z88.8 Allergy status to other drugs, medicaments and biological substances; Z91.040 Latex allergy status; Z91.048 Other nonmedicinal substance allergy status
CPT/HCPCS: 93005; 85025; 80048; 36415; 86900; 86850; 82565; 86901; 70450; 72125; 71260; 74177; 71045; 73610; 96372; 96374; 99284; Q9967; J2550; J3010; J7040

== ENCOUNTER 2023-03-25 20:26 | Emergency (ER) | payer OTHER ==
--- OUTSIDE RECORDS SUMMARY | 2023-03-25 20:29 | XMS REPORT | Clinical Summary ---
:1980 Author Organization [facility] [place] [place] [facility] Address [address] [place] [address] Care Team Providers Name Role Phone Rabia Tanner MD Unavailable [phone] Allergies Not on File Medications Not on file Active Problems Not on file Social History Tobacco Use Types Packs/Day Years Used Date Smoking Tobacco: Never Assessed Sex Assigned at Date Recorded Not on file Last Filed Vital Signs Not on file Plan of Treatment Not on file Results Not on fileafter 03/25/2022 Insurance Payer Benefit Plan / Subscriber ID Effective Phone Address T ype Group Dates [facility] [id number] 2018-Funmi JAMES [place] [id number] [place] [address] (Work) [phone] Madison Anand Personal/Family Self 1980 [address] [place], [place] (Work) [phone] Madison Anand Personal/Family Self 1980 [address] [place], [place] (Work) [phone] Care Teams Sugar Grinder Relationship Specialty Start Date End Date Rabia Tanner PCP - External Referring Internal Medicine 03/09 01/23 MD Cheri
--- OUTSIDE RECORDS SUMMARY | 2023-03-25 21:16 | XMS REPORT | Continuity of Care Document ---
:1980 Author Organization [facility] t Address [address] [place] [address] [address] [place] [address] Care Team Providers Name Role Phone Corwin Mcmullen Primary Care Physician ISIS KERNS Attending Clinician Unavailable YARED SWANSON Attending Clinician Unavailable MAAME MCGOVERN Attending Clinician Unavailable MAAME MCGOVERN Attending Clinician Unavailable MADISON MURILLO Attending Clinician Unavailable LOWELL PEREZ Attending Clinician Unavailable LOWELL PEREZ Attending Clinician Unavailable JUAN SANCHEZ Attending Clinician Unavailable BRINA ROJAS Attending Clinician Unavailable BRIAN ROJAS Attending Clinician Unavailable KO GRAVES Attending Clinician Unavailable Bertrand Peng OT Attending Clinician Unavailable Ko Graves MD Attending Clinician Moe Armstrong PT Attending Clinician Unavailable KRISTOFER ENAMORADO Attending Clinician Unavailable Kristofer Enamorado MD Attending Clinician Doctor Unassigned, [place] Attending Clinician Unavailable Twyla Guerrero LVN Attending Clinician KAROL CAT Attending Clinician Unavailable Lucio ROQUE, Beck Rand Attending Clinician Cynthia ROQUE, Karol Clarke Attending Clinician Leora Corley RN Attending Clinician Unavailable SONIA PANIAGUA Attending Clinician Unavailable Esperanza ROQUE, Sonia Attending Clinician Latasha ROQUE, Merritt Attending Clinician MERRITT PAGAN Attending Clinician Unavailable Alex Cruz MD Attending Clinician Parish ROQUE, Steph Attending Clinician STEPH LUGO Attending Clinician Unavailable Juan Sanchez MD Attending Clinician GUMARO HESS Attending Clinician Unavailable Kassidy ROQUE, Gumaro Attending Clinician Lab, Ang - Db Attending Clinician Unavailable SHAUN POSADAS Attending Clinician Unavailable AVELINO JONES Attending Clinician Unavailable Leo PRIEST, Chloe S Attending Clinician Avelino Jones MD Attending Clinician Jonathan Tanner MD Attending Clinician [phone] ALLA SWAIN Attending Clinician Unavailable FELIBERTO RODAS Attending Clinician Unavailable Feliberto Rodas MD Attending Clinician Perez Mackay MD Attending Clinician PEREZ MACKAY Attending Clinician Unavailable Call, [facility] Phone Attending Clinician Unavailable ALEX VEGA Attending Clinician Unavailable GABBI RANDALL Attending Clinician Unavailable GABBI RANDALL Attending Clinician Unavailable Elieser Elliott DNP, Marbella Vega Attending Clinician [phone] Jarad Freeman DO Attending Clinician Yahir JOHNSON, Yulia Echols Attending Clinician Unavailable MADISON HYATT Attending Clinician Unavailable Madison Raymond Attending Clinician Kaya Hernandez MD Attending Clinician KAYA HERNANDEZ Attending Clinician Unavailable Demetris Dumont Attending Clinician Brynn SMITH, Alla Attending Clinician DEMETRIS SANTOS Attending Clinician Unavailable Marah Barlow MD Attending Clinician JONATHAN TANNER Attending Clinician Unavailable Blaire Burgess RN Attending Clinician Unavailable Luciano Fairchild MD Attending Clinician [phone] Anesthesiology Attending Clinician Unavailable DIANA CANTU Attending Clinician Unavailable CHANA FRITZ Attending Clinician Unavailable Pob, [facility] Lab Main Attending Clinician Unavailable Tamra ROQUE, Chnaa Attending Clinician Monica Mosley RN Attending Clinician PEACE ALFARO Attending Clinician Unavailable Corin Hayes MD Attending Clinician Peace Alfaro DO Attending Clinician Shaun Roberts Attending Clinician JESS WHITING Attending Clinician Unavailable ELAINE TOURE Attending Clinician Unavailable Elaine Toure MD Attending Clinician JUAN CORREIA Attending Clinician Unavailable Juan Correia MD Attending Clinician [phone] Vicente Maravilla Attending Clinician Unavailable Radhames Acevedo NP Attending Clinician Marleny Armas LMSW Attending Clinician RADHAMES ACEVEDO Attending Clinician Unavailable MECCA HOWARD Attending Clinician Unavailable Mecca Howard MD Attending Clinician 1, [facility] Infusion Nurse Attending Clinician Unavailable Demetris Hirsch LMSW Attending Clinician Isis Kerns MD Attending Clinician Only, [facility] Test Attending Clinician Unavailable Dwayne Bedolla MD Attending Clinician Sarah Nunez Attending Clinician Unavailable Yesy Brewster RN Attending Clinician Unavailable Only, Clc Main Test Attending Clinician Unavailable Femi Sellers MD Attending Clinician 1, [facility] Infusion Chair Attending Clinician Unavailable 2, [facility] Infusion Chair Attending Clinician Unavailable LISETTE Attending Clinician Unavailable KARLA COLÓN Attending Clinician Unavailable Karla Colón DO Attending Clinician LYNNETTE ASTUDILLO Attending Clinician Unavailable Nurse, [facility] Attending Clinician Unavailable Jacqueline MEDICAL HISTORIAN, Lynnette Attending Clinician ALEX CRUZ Attending Clinician Unavailable Elliott Zayas MD Attending Clinician ELLIOTT ZAYAS Attending Clinician Unavailable Kirstin OT, Aicha L Attending Clinician Unavailable Jess Whiting MD Attending Clinician Ronaldo Dover MD Attending Clinician LUI CUMMINS Attending Clinician Unavailable LUI CUMMINS Attending Clinician Unavailable Lui Cummins MD Attending Clinician Diana Shafer Attending Clinician [facility] Attending Clinician Unavailable JUAN AUGUST Attending Clinician Unavailable Juan August MD Attending Clinician Only, [facility] Pob2 Test Attending Clinician Unavailable Shira Cervantes RN Attending Clinician Unavailable ALEX WHITE Attending Clinician Unavailable Alex White MD Attending Clinician ZAIRA BRANNON Attending Clinician Unavailable Molly Mayer A Attending Clinician Karina Trivedi Attending Clinician Lab, [facility] Fam Pob I Attending Clinician Unavailable KARINA PRESCOTT Attending Clinician Unavailable Isiah Smith MD, Rp Attending Clinician ISIAH SMITH RP Attending Clinician Unavailable Zully Valenzuela PT Attending Clinician Unavailable RONALDO DOVER Attending Clinician Unavailable Elmer Hopson DO Attending Clinician Yared Swanson MD Attending Clinician Trinh Attending Clinician Unavailable JUAN BAIRES Attending Clinician Unavailable NORBERT SELLERS Attending Clinician Unavailable Juan Baires MD Attending Clinician Therapist, [facility] Occup Attending Clinician Unavailable Traci ROQUE, Trish King Attending Clinician [phone] Kristy JOHNSON, Evelyn Attending Clinician YESSY MATA Attending Clinician Unavailable Julio Cesar EASTMAN, Yessy Soria Attending Clinician Mark Anthony ROQUE, Nava Hernandez Attending Clinician 2, [facility] Lab Attending Clinician Unavailable Nurse, [facility] Fam Attending Clinician Unavailable Sheri KINGP, Jaqueline Attending Clinician Marc ROQUE, Catina Marie Attending Clinician Joe NORIEGA, Argelia Attending Clinician Jorge ROQUE, Nelly K.HNica Attending Clinician Ramon ROQUE, Dilma Grande Attending Clinician Mikie Omalley MD Attending Clinician Reshma Tran Attending Clinician Unavailable Xochitl Ceja Attending Clinician Unavailable SHERITA IQBAL Attending Clinician Unavailable GILLES REED Attending Clinician Unavailable CORWIN CHAIREZ Attending Clinician Unavailable BRET CALDERON Attending Clinician Unavailable ISIS KERNS Admitting Clinician Unavailable YARED SWANSON Admitting Clinician Unavailable KAROL CAT Admitting Clinician Unavailable Karol Cat MD Admitting Clinician PEREZ MACKAY Admitting Clinician Unavailable LOWELL PEREZ Admitting Clinician Unavailable BRIAN ROJAS Admitting Clinician Unavailable AVELINO JONES Admitting Clinician Unavailable Avelino Jones MD Admitting Clinician LE, JARAD Admitting Clinician Unavailable Lydia LUCIA, Jarad Admitting Clinician MARAH BARLOW Admitting Clinician Unavailable Marah Barlow MD Admitting Clinician CHANA FRITZ Admitting Clinician Unavailable TEQWIMUAH, PEACE Admitting Clinician Unavailable Teqwimuah DO, Peace Admitting Clinician ELAINE TOURE Admitting Clinician Unavailable JONATHAN TANNER Admitting Clinician Unavailable Isis Kerns MD Admitting Clinician LISETTE Admitting Clinician Unavailable KARLA COLÓN Admitting Clinician Unavailable ALEX WHITE Admitting Clinician Unavailable Yared Swanson MD Admitting Clinician Trinh Admitting Clinician Unavailable YESSY MATA Admitting Clinician Unavailable Payers Payer Name Policy Type Policy Number Effective Date Expiration Date S nisreen [facility] [id number] 2013 PLUS 00:00:00 [place] [id number] 2012 2013 00:00:00 00:00:00 Problems Condition Condition Condition Status Onset Resolution Last Treating Co mments Source Name Details Category Date Date Treatment Clinician Date Cervical Cervical Disease Active Unive rs radiculopa radiculopa 8 it y of thy thy 00:00: 00 Medical Branch Decreased Decreased Disease Active Uni vers sock and stocking ironer sock and stocking ironer 831 ity of strength strength 00:00: 00 Medical Branch Pain of Pain of Disease Active Univers right right 831 ity of upper upper 00:00: [place] extremity extremity 00 Medi janet Branch Seizure-li Seizure-li Disease Active U nivers ke ke 8-14 ity of activity activity 00:00: [place] 00 Medical Branch Vomiting, Vomiting, Disease Active Uni vers unspecifie unspecifie 6-23 it y of d vomiting d [place] type[place] type, 00 Medical unspecifie unspecifie Br anch d whether d whether nausea nausea present present Neck pain Neck pain Disease Active Uni vers 4-20 ity of 00:00: [place] 00 Medical Branch Cervical Cervical Disease Active Overview: Un bry spondylosi spondylosi 4-18 Formattin ity of s with s with 00:00: g of this [place] myelopathy myelopathy 00 note Me dical might be Branch different from the original. Added automatic ally from request for surgery [id number] Bacteremia Bacteremia Disease Active U nivers 2-02 ity of 00:00: [place] [facility] Sepsis Sepsis Disease Active Univers [...] Disease Active Overview: Univ ers venous venous 11-29 Formattin ity of catheter catheter 00:00: g of this [place] as in place in place 00 note Medica l might be Branch different from the original. Added automatic ally from request for surgery [id number] Dependence Dependence Disease Active U nivers on on 18 ity of wheelchair wheelchair 00:00: [place] [facility] [place] Dependence Dependence Disease Active U nivers on on 18 ity of wheelchair wheelchair 00:00: [place] [facility] [place] Restless Restless Disease Active Unive rs legs legs 12-01 ity of 00:: [place] [facility] Diarrhea, Diarrhea, Disease Active Uni vers unspecifie unspecifie 12-01 it y of d type d type 00:00: [place] [facility] Abnormal Abnormal Disease Active Unive rs findings findings 12-01 ity of in stool in stool 00:00: Medical Branch Abdominal Abdominal Disease Active Uni vers bloating bloating 12-01 ity of 00:00: [place] [facility] Pale stool Pale stool Disease Active U nivers -26 ity of 00:00: [place] [facility] Mold Mold Disease Active Univers exposure exposure 3-11 ity of 00:00: [place] [facility] Intermitte Intermitte Disease Active 2018-07 U nivers nt asthma nt asthma 2-11 ity of without without 00:00: [place] complicati complicati 00 Me dical on, on, Branch unspecifie unspecifie d asthma d asthma severity severity Dysautonom Dysautonom Disease Active U nivers ia ia 9-10 ity of 00:00: [place] [facility] Gastropare Gastropare Disease Active 2019 U nivers sis sis 9-10 ity of 00:00: [place] [facility] Pancreatic Pancreatic Disease Active 2019 U nivers insufficie insufficie 9-10 it y of ncy ncy 00:00: [place] [facility] IBD IBD Disease Active Univers (inflammat (inflammat 9-10 it y of ory bowel ory bowel 00:[place] disease[place] disease[place] 00 Medica l Branch Pseudotumo Pseudotumo Disease Active U nivers r cerebri r cerebri 9-10 ity of syndrome syndrome 00:00: [place] [facility] Dehydratio Dehydratio Disease Active U nivers n n 9-10 ity of 00:00: [place] [facility] Other Other Disease Active 2017-07 Overview: Univer s constipati constipati 0-19 Formattin ity of on on 00:00: g of this [place] 00 note Medical might be Branch different from the original. 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 Uni vers abdominal abdominal 0-19 ity of hysterecto hysterecto 00:00: [place] my and my and 00 Medical bilateral bilateral Bran ch salpingo-o salpingo-o ophorectom ophorectom y y Prurigo Prurigo Disease Active Univers nodularis nodularis 7-23 ity of 00:00: [place] 00 Medical Branch Migraine Migraine Disease Active 2012-07 Unive rs with aura with aura 2-12 ity of 00:00: [place] [address] Medical Branch Metabolic Metabolic Disease Active Uni vers syndrome syndrome 4-30 ity of 00:00: [place] [address] Medical Branch Morbid Morbid Disease Active Univers obesity obesity 4-30 ity of 00:00: [place] [facility] Hyperlipid Hyperlipid Disease Active 2011-07 U mikey emia emia 2-13 ity of 00:00: Medical Branch Borderline Borderline Disease Active 2011-07 U mikey diabetes diabetes 2-11 ity of 00:00: Medical Branch Palpitatio Palpitatio Disease Active 2011-07 U mikey ns ns 2-11 ity of 00:00: Medical Branch Hypothyroi Hypothyroi Disease Active Overview : Univers dism dism 2-02 Formattin ity of 00:00: g of this note Medical might be Branch different from the original. ICD10 Diagnosis Term Grey Goods Marker Utility Insomnia, Insomnia, Disease Active Uni vers persistent persistent 2- it y of 00:00: Medical Branch Fibromyalg Fibromyalg Disease Active U mikey ia ia 2- ity of 00:00: [place] 00 Medical Branch TIA TIA Disease Active Overview: Univer s [...] ents Source Name Type Date Date Clinician GABAPENT DRUG Active High Hives Univers IN INGREDI 5-08 ity of 00:00: [place] 00 Medical Branch Gabapent Propensi Active Hives Univer s in ty to 5-08 ity of adverse 00:00: [place] reaction 00 Medical s Branch Gabapent Propensi Active Hives Univer s in ty to 5-08 ity of adverse 00:00: [place] reaction 00 Medical s to Branch drug Metoclop Propensi Active Other (See 2021-[address] [facility] [address] ramide ty to Comments) 2-27 [facility] adverse 00:00: Medical reaction 00 Center s Sulfa Propensi Active Rash 2021-[address] [facility] (Sulfona ty to 2-27 [facility] mide adverse 00:00: Medical Antibiot reaction 00 Center ics) s Ondanset Propensi Active Hives 2021-[address] [facility] jase Hcl ty to 227 [facility] adverse 00:00: Medical reaction 00 Center s Aripipra Propensi Active Other (See 2021-[address] [facility] zole ty to Comments) 2-27 [facility] adverse 00:00: Medical reaction 00 Center s Adhesive Propensi Active Rash 2021-[address] [facility] Bandage ty to 227 [facility] adverse 00:00: Medical reaction 00 Center s Blueberr Propensi Active Hives 2021-[address] [facility] y ty to 227 [facility] adverse 00:00: Medical reaction 00 Center s Buprenor Propensi Active Other (See 2021-[address] [facility] [address] phine ty to Comments) 2-27 [facility] adverse 00:00: Medical reaction 00 Center s Codeine Propensi Active Hives, Rash 2021-[address] ty to 227 [facility] adverse 00:00: Medical reaction 00 Center s Green Propensi Active Nausea And 2021-[address] [facility] Tea ty to Vomiting 27 [facility] adverse 00:00: Medical reaction 00 Center s Latex Propensi Active Rash 2021-[address] [facility] [facility] ty to 2 [facility] adverse 00:00: Medical reaction 00 Center s LATEX Allergy Active Low Rash 2021-[address] [facility] 2-27 [facility] 00:00: Medical 00 Center SULFA Allergy Active Low Rash 2021-[address] [facility] (SULFONA 2-27 [facility] MIDE 00:00: Medical ANTIBIOT 00 Center [...] St PHINE 2-27 [facility] 00:00: Medical 00 [place] GREEN Allergy Active N\\T\\V 2021-[address] [facility] TEA 2-27 [facility] 00:00: Medical 00 Center METOCLOP Allergy Active Other 2021-[address] [facility] RAMIDE 2-27 [facility] 00:00: Medical 00 Center ADHESIVE Allergy Active Low Rash 2021-[address] [facility] BANDAGE 2 [facility] 00:00: Medical 00 Center ONDANSET DRUG Active High Anxiety 2021-0 Univers JASE HCL INGREDI 8- ity of 00:00: [place] 00 Medical Branch Ondanset Drug Active Hives 2021-0 Univers jase Hcl Allergy 03-08 ity of 00:00: [place] 00 Medical Branch Ondanset Propensi Active Anxiety 2021-0 Unive rs jase Hcl ty to 831 ity of adverse 00:00: [place] reaction 00 Medical s to Branch drug Green Propensi Active Nausea 2021-0 Univers Tea ty to and/or 7-14 ity of adverse Vomiting 00:00: [place] reaction 00 Medical s Branch GREEN DRUG Active High N/V 2021-0 Univers TEA INGREDI 7-14 ity of 00:00: [place] 00 Medical Branch Green Propensi Active Nausea 2021-0 Univers Tea ty to and/or 7-14 ity of adverse Vomiting 00:00: [place] reaction 00 Medical s to Branch drug Latex Propensi Active Rash 0 States Univers ty to 6-13 "only in ity of adverse 00:00: a sticker [place] reaction 00 form, Medical s gloves Branch don't bother me" Sulfa Propensi Active Rash 2021-0 Univers (Sulfona ty to 6-13 ity of mide adverse 00:00: [place] Antibiot reaction 00 Medica l ics) s Branch LATEX DRUG Active High Rash 2021-0 Univers INGREDI 6-13 ity of 00:00: [place] 00 Medical Branch SULFA Drug Active High N/V 2021-0 Univers (SULFONA Class 6-13 ity of MIDE 00:00: [place] ANTIBIOT 00 Medical ICS) Branch Latex Propensi Active Rash 2021-0 States Univers ty to 6-13 "only in ity of adverse 00:00: a sticker [place] reaction 00 form, Medical s to gloves Branch drug don't bother me" Sulfa Propensi Active Rash 2021-0 Univers (Sulfona ty to 6-13 ity of mide adverse 00:00: [place] Antibiot reaction 00 Medica l ics) s to Branch drug Adhesive Propensi Active Rash Tegraderm Uni vers Tape-Shy ty to 2-27 ity of icones adverse 00:00: [place] reaction 00 Medical s Branch Blueberr Propensi Active Hives 2020-0 Univer s y ty to 2 ity of adverse 00:00: [place] reaction 00 Medical s Branch ADHESIVE DRUG Active High Rash 2020-0 Univers TAPE-SHY 2-27 ity of ICONES 00:00: [place] 00 Medical Branch BLUEBERR DRUG Active High Hives 2020-0 Univers Y INGREDI 2- ity of 00:00: [place] 00 Medical Branch Adhesive Propensi Active Rash 2020-0 Tegraderm Uni vers Tape-Shy ty to 2 ity of icones adverse 00:00: [place] reaction 00 Medical s to Branch drug Blueberr Propensi Active Hives 2020-0 Univer s y ty to 09-04 ity of adverse 00:00: [place] reaction 00 Medical s to Branch drug Buprenor Propensi Active Other - See 2019-0 Blisters Univers phine ty to comments 6-06 form the ity of adverse 00:00: medicatio [place] reaction 00 n on Medical s patch Branch BUPRENOR DRUG Active High Other-Cmnt 2019-0 Univ ers PHINE INGREDI 6- ity of 00:00: [place] 00 Medical Branch Buprenor Propensi Active Other - See 2019-0 Blisters Univers phine ty to comments 6-06 form the ity of adverse 00:00: medicatio [place] reaction 00 n on Medical s to patch Branch drug Metoclop Propensi Active Hypertension 2017-0 Univers ramide ty to 6-06 ity of adverse 00:00: [place] reaction 00 Medical s Branch METOCLOP DRUG Active High HYPERTENSION 2017-0 Un bry RAMIDE INGREDI 6-06 ity of 00:00: [place] 00 Medical Branch Metoclop Propensi Active Hypertension 2017-0 Univers ramide ty to 6-06 ity of adverse 00:00: [place] reaction 00 Medical s to Branch drug Codeine Propensi Active Rash 2010-0 Large Univers ty to 5-13 doses ity of adverse 00:00: [place] reaction 00 Medical s Branch CODEINE DRUG Active Med Hives 2010-0 Univers INGREDI 5-13 ity of 00:00: [place] 00 Medical Branch Codeine Propensi Active Rash 2010-0 Large Univers ty to 5-13 doses ity of adverse 00:00: [place] reaction 00 Medical s to Branch drug NO KNOWN Allergy Active [facility] ALLERGIE S Social History Social Habit Start Date Stop Date Quantity Comments Source History SDOH [facility] Alcohol [facility] History SDOH [facility] Alcohol Std Drinks Medica l Center History SDOH [facility] Alcohol [facility]inge Medical [address] [facility] History SDOH Social [facility] Med ical Together Branch History SDOH Social [facility] Medical Branch History SDOH Social [facility] Medical Membership Branch History SDOH Social [facility] Medical Meetings Branch Gender identity [facility] [place] [facility] Sexual orientation [facility] [place] [facility] History of tobacco Passive smoker Un iversity of use [place] [facility] Exposure to 2022-11-14 2022-11-24 Not sure University of SARS-CoV-2 (event) 00:00:00 12:59:00 [place] [facility] History SDOH 2022-11-10 2022-11-10 5 University o f Financial 00:00:00 00:00:00 [place] [facility] History SDOH Food 2022-11-10 2022-11-10 1 Univers ity of Worry 00:00:00 00:00:00 [place] [facility] History SDOH Food 2022-11-10 2022-11-10 1 Univers ity of Scarcity 00:00:00 00:00:00 [place] [facility] History SDOH 2022-11-10 2022-11-10 2 University o f Transport Med 00:00:00 00:00:00 [place] Medic al Branch History SDOH 2022-11-10 2022-11-10 2 University o f Transport Non-Med 00:00:00 00:00:00 [place] M edical Branch History SDOH 2022-11-10 2022-11-10 0 University o f Physical Activity 00:00:00 00:00:00 [place] M edical DPW Branch History SDOH 2022-11-10 2022-11-10 0 University o f Physical Activity 00:00:00 00:00:00 [place] M edical MPS Branch History SDOH 2022-11-10 2022-11-10 2 University o f Housing Unable to 00:00:00 00:00:00 [place] M edical Pay Branch History SDOH 2022-11-10 2022-11-10 2 University o f Housing Homeless 00:00:00 00:00:00 [place] Me dical Last Year Branch History of Social 2022-11-09 2022-11-09 Univers ity of function 00:00:00 00:00:00 [facility] Branch History SDOH Social 2022-10-26 2022-10-26 5 Unive rsity of Connections Phone 00:00:00 00:00:00 [place] M edical Branch History SDOH Social 2022-10-26 2022-10-26 7 Unive rsity of Connections Living 00:00:00 00:00:00 [facility] Branch History SDOH 2022-10-26 2022-10-26 1 University o f Housing Places 00:00:00 00:00:00 [facility] Tobacco use and 2022-07-04 2022-07-[address] [facility] exposure 00:00:00 00:00:00 tobacco non-user [facility] Alcohol intake 2022-07-04 2022-07-04 [facility] (finding) Tobacco Comment 2022-07-04 2022-07-04 smokes natural [facility] herbs (family Medical [address] recipe) Alcohol Comment 2022-07-04 2022-07-[address] [facility] 00:00:00 00:00:00 [facility] Education 2019-03-27 2019-03-27 13 [facility] 00:00:00 00:00:00 [facility] Sex Assigned At [address] [facility] 00:00:00 00:00:00 [facility] Center Smoking Status Start Date Stop Date Source Never smoked tobacco [facility] Medications Ordered Filled Start Stop Current Ordering Indication Dosage Frequency Signature Comments Components Source Medication Medication Date Date Medication? Clinician (SIG) Name Name ipratropium Yes As needed U nivers 0.02 % 9- ity of nebulizer 11:34: [place] solution 36 Medical Branch ipratropium 0 Yes As needed U nivers 0.02 % 9- ity of nebulizer 11:34: [place] solution 36 Medical Branch ipratropium 2023-0 Yes As needed U nivers 0.02 % 03-09 ity of nebulizer 11:34: [place] solution 36 Medical Branch zolpidem 10 2022- No 10mg Take 1 Uni vers mg tablet 03-09 tablet by ity of 11:33: 00:00 mouth at [place] 52 :00 bedtime as Medical needed. Branch traZODone 2022- No 50mg Take 1 Unive rs 50 mg 03-09 tablet by ity of tablet 11:33: 00:00 mouth at [place] 52 :00 bedtime as Medical needed. Branch PARoxetine 2022- No 40mg Take 1 Univ ers 40 mg 03-09 tablet by ity of tablet 11:33: 00:00 mouth in [place] 52 :00 the Medical morning. Branch oxyCODONE-a 2022- No Take 1 Uni vers cetaminophe 03-09 tablet ity o f n (ENDOCET) 11:33: 00:00 [place] 6 [place] 10-325 mg 52 :00 hours by Medica l per tablet oral Branch route. mirtazapine 2022- No 30mg Take 1 Uni vers 30 mg 03-09 tablet by ity of tablet 11:33: 00:00 mouth at [place] 52 :00 bedtime as Medical needed. Branch lurasidone 2022- No 80mg Take 1 Univ ers (LATUDA) 80 03-09 tablet by it y of mg tablet 11:33: 00:00 mouth in [place] as 52 :00 the Medical morning. Branch lithium 2022- No 300mg Take 1 Univer s carbonate 03-09 capsule by ity of 300 mg 11:33: 00:00 mouth in [place] capsule 52 :00 the Medical morning Branch and 1 capsule in the evening. ketoconazol 2022- No Use as Uni vers e 2 % cream 03-09 directed ity of 11:33: 00:00 [place] 52 :00 Medical Branch gabapentin 2022-2022- No 300mg Take 1 Uni vers 300 mg 03-09 capsule by ity of capsule 11:33: 00:00 mouth at [place] 52 :00 bedtime. Medical Branch eletriptan 2022- No one at [facility] ers (RELPAX) 40 03-09 onset of ity of mg tablet 11:33: 00:00 headaches. [place] 52 :00 my repeat Medical in 2 hours Branch for a max of 2 in 24 hours. divalproex 2022- No 500mg Take 1 Uni vers ER 500 mg 03-09 tablet by ity of 24 hr 11:33: 00:00 mouth in [place] tablet 52 :00 the Medical morning Branch and 1 tablet in the evening. cyclobenzap 2022- No 5mg Take 1 Uni vers rine 5 mg 03-09 tablet by ity of tablet 11:33: 00:00 mouth in [place] 52 :00 the Medical morning Branch and 1 tablet at noon and 1 tablet in the evening. celecoxib 2022- No 100mg Take 1 Univ ers 100 mg 03-09 capsule by ity of capsule 11:33: 00:00 mouth in [place] 52 :00 the Medical morning. Branch buPROPion 2022- No 150mg Take 1 Univ ers SR 150 mg 03-09 tablet by ity of SR tablet 11:33: 00:00 mouth in [facility] 52 :00 the Medical morning Branch and 1 tablet in the evening. amitriptyli 2022- No 50mg Take 1 Uni vers ne 50 mg 03-09 tablet by ity o f tablet 11:33: 00:00 mouth at [place] 52 :00 bedtime. Medical Branch DULoxetine 2022- No 60mg Take 1 [facility] ers 60 mg 03-09 capsule by ity of capsule 11:33: 00:00 mouth in [place] 52 :00 the Medical morning. Branch fluocinonid 2022- No Apply to U nivers e 0.05 % 03-09 the ity of ointment 11:33: 00:00 affected [facility] 52 :00 area of Medical the skin Branch two to four times per day zolpidem 10 2022- No 10mg Take 1 Uni vers mg tablet 03-09 tablet by ity of 11:33: 00:00 mouth at [place] 52 :00 bedtime as Medical needed. Branch traZODone 2022- No 50mg Take 1 Unive rs 50 mg 03-09 tablet by ity of tablet 11:33: 00:00 mouth at [place] 52 :00 bedtime as Medical needed. Branch PARoxetine 2022- No 40mg Take 1 Univ ers 40 mg 03-09 tablet by ity of tablet 11:33: 00:00 mouth in [place] 52 :00 the Medical morning. Branch oxyCODONE-a 2022- No Take 1 Uni vers cetaminophe 03-09 tablet ity o f n (ENDOCET) 11:33: 00:00 every 6 [place] 10-325 mg 52 :00 hours by Medica l per tablet oral Branch route. mirtazapine 2022- No 30mg Take 1 Uni vers 30 mg 03-09 tablet by ity of tablet 11:33: 00:00 mouth at [place] 52 :00 bedtime as Medical needed. Branch lurasidone 2022- No 80mg Take 1 Univ ers (LATUDA) 80 03-09 tablet by it y of mg tablet 11:33: 00:00 mouth in [facility] as 52 :00 the Medical morning. Branch lithium 2022- No 300mg Take 1 Univer s carbonate 03-09 capsule by ity of 300 mg 11:33: 00:00 mouth in [place] capsule 52 :00 the Medical morning Branch and 1 capsule in the evening. ketoconazol 2022- No Use as Uni vers e 2 % cream 03-09 directed ity of 11:33: 00:00 [place] 52 :00 Medical Branch gabapentin 2022- No 300mg Take 1 Uni vers 300 mg 03-09 capsule by ity of capsule 11:33: 00:00 mouth at [place] 52 :00 bedtime. Medical Branch eletriptan 2022- No one at [facility] ers (RELPAX) 40 03-09 onset of ity of mg tablet 11:33: 00:00 headaches. [place] 52 :00 my repeat Medical in 2 hours Branch for a max of 2 in 24 hours. divalproex 2023-0 2023- No 500mg Take 1 Uni vers ER 500 mg 03-09 tablet by ity of 24 hr 11:33: 00:00 mouth in [place] tablet 52 :00 the Medical morning Branch and 1 tablet in the evening. cyclobenzap 2022- No 5mg Take 1 Uni vers rine 5 mg 03-09 tablet by ity of tablet 11:33: 00:00 mouth in [place] 52 :00 the Medical morning Branch and 1 tablet at noon and 1 tablet in the evening. celecoxib 2022- No 100mg Take 1 Univ ers 100 mg 03-09 capsule by ity of capsule 11:33: 00:00 mouth in [place] 52 :00 the Medical morning. Branch buPROPion 2022- No 150mg Take 1 Univ ers SR 150 mg 03-09 tablet by ity of SR tablet 11:33: 00:00 mouth in [facility] 52 :00 the Medical morning Branch and 1 tablet in the evening. amitriptyli 2022- No 50mg Take 1 Uni vers ne 50 mg 03-09 tablet by ity o f tablet 11:33: 00:00 mouth at [place] 52 :00 bedtime. Medical Branch DULoxetine 2022- No 60mg Take 1 Univ ers 60 mg 03-09 capsule by ity of capsule 11:33: 00:00 mouth in [place] 52 :00 the Medical morning. Branch fluocinonid 2022- No Apply to U nivers e 0.05 % 03-09 the ity of ointment 11:33: 00:00 affected [facility] 52 :00 area of Medical the skin Branch two to four times per day linaCLOtide 2022-0 Yes 290ug Take 1 Uni vers (LINZESS) 03-09 capsule by ity of 290 mcg Cap 11:33: mouth once [place] 49 daily as Medical needed. Branch linaCLOtide 2022-0 Yes 290ug Take 1 Uni vers (LINZESS) 03-09 capsule by ity of 290 mcg Cap 11:33: mouth once [place] 49 daily as Medical needed. Branch linaCLOtide 2022-0 Yes 290ug Take 1 Uni vers (LINZESS) 03-09 capsule by ity of 290 mcg Cap 11:33: mouth once [place] 49 daily as Medical needed. Branch albuterol Yes 2{puff} Inhale 2 U nivers (PROAIR 9-01 Puffs ity of HFA) 90 08:26: every 4 [place] mcg/actuati 50 (four) Medica l on inhaler hours as Branc h needed. albuterol Yes 2{puff} Inhale 2 U nivers (PROAIR 9-01 Puffs ity of HFA) 90 08:26: every 4 [place] mcg/actuati 50 (four) Medica l on inhaler hours as Branc h needed. albuterol Yes 2{puff} Inhale 2 U nivers (PROAIR 9-01 Puffs ity of HFA) 90 08:26: every 4 [place] mcg/actuati 50 (four) Medica l on inhaler hours as Branc h needed. Incontinenc Yes [id number] Use as Univers e Pad, 03-09 directed ity of Liner, Disp 00:00: [place] (PADS FOR 00 Medical WOMEN) Pads Branch famotidine Yes [id number] 20mg Take 1 U nivers (PEPCID) 20 03-09 tablet by ity of mg tablet 00:00: mouth in [facility] 00 the Medical morning Branch and 1 tablet in the evening. pantoprazol Yes [id number] 40mg Take 1 Univers e 40 mg EC 03-09 tablet by ity of tablet 00:00: mouth in [place] 00 the Medical morning. Branch Saccharomyc Yes [id number] 250mg Take 1 Univers es 03-09 capsule by ity of boulardii 00:00: mouth in [facility] s (FLORASTOR) 00 the Medical 250 mg morning Branch capsule and 1 capsule in the evening. levothyroxi Yes [id number] 100ug Take 1 Univers ne 100 mcg 03-09 tablet by ity of tablet 00:00: mouth [place] 00 every Medical morning. Branch promethazin Yes [id number] 50mg Take 1 Univers e 50 mg 03-09 tablet by ity of tablet 00:00: mouth [place] 00 every 8 Medical (eight) Branch hours as needed for Nausea and Vomiting (N/V). TAKE 1 TABLET BY MOUTH EVERY 6 HOURS NEEDED FOR NAUSEA AND VOMITING hydrOXYzine 2022-0 Yes [id number] 25mg Take 1 Univers 25 mg 9- tablet by ity of tablet 00:00: mouth [place] 00 every 6 Medical (six) Branch hours as needed for Anxiety. Incontinenc 2022-0 Yes [id number] Use as Univers e Pad, 03-09 directed ity of Liner, Disp 00:00: [place] (PADS FOR 00 Medical WOMEN) Pads Branch famotidine 2022-0 Yes [id number] 20mg Take 1 U nivers (PEPCID) 20 - tablet by ity of mg tablet 00:00: mouth in [facility] the Medical morning Branch and 1 tablet in the evening. pantoprazol 2022-0 Yes [id number] 40mg Take 1 Univers e 40 mg EC 03-09 tablet by ity of tablet 00:00: mouth in [place] 00 the Medical morning. Branch Saccharomyc 2022-0 Yes [id number] 250mg Take 1 Univers es - capsule by ity of boulardii 00:00: mouth in [facility] s (FLORASTOR) 00 the Medical 250 mg morning Branch capsule and 1 capsule in the evening. levothyroxi 0 Yes [id number] 100ug Take 1 Univers ne 100 mcg - tablet by ity of tablet 00:00: mouth [place] 00 every Medical morning. Branch promethazin 0 Yes [id number] 50mg Take 1 Univers e 50 mg - tablet by ity of tablet 00:00: mouth [place] 00 every 8 Medical (eight) Branch hours as needed for Nausea and Vomiting (N/V). TAKE 1 TABLET BY MOUTH EVERY 6 HOURS NEEDED FOR NAUSEA AND VOMITING hydrOXYzine 2022-0 Yes [id number] 25mg Take 1 Univers 25 mg - tablet by ity of tablet 00:00: mouth [place] 00 every 6 Medical (six) Branch hours as needed for Anxiety. Incontinenc 2022-0 Yes [id number] Use as Univers e Pad, 03-09 directed ity of Liner, Disp 00:00: [place] (PADS FOR 00 Medical WOMEN) Pads Branch famotidine 2022-0 Yes [id number] 20mg Take 1 U nivers (PEPCID) 20 - tablet by ity of mg tablet 00:00: mouth [place] 00 the Medical morning Branch and 1 tablet in the evening. pantoprazol Yes [id number] 40mg Take 1 Univers e 40 mg EC - tablet by ity of tablet 00:00: mouth in [place] 00 the Medical morning. Branch Saccharomyc 0 Yes [id number] 250mg Take 1 Univers es 9- capsule by ity of boulardii 00:00: mouth [place] (FLORASTOR[place] 00 the Medical 250 mg morning Branch capsule and 1 capsule in the evening. levothyroxi Yes [id number] 100ug Take 1 Univers ne 100 mcg 9- tablet by ity of tablet 00:00: mouth [place] 00 every Medical morning. Branch promethazin Yes [id number] 50mg Take 1 Univers e 50 mg 03-09 tablet by ity of tablet 00:00: mouth [place] 00 every 8 Medical (eight) Branch hours as needed for Nausea and Vomiting (N/V). TAKE 1 TABLET BY MOUTH EVERY 6 HOURS NEEDED FOR NAUSEA AND VOMITING hydrOXYzine Yes [id number] 25mg Take 1 Univers 25 mg 03-09 tablet by ity of tablet 00:00: mouth [place] 00 every 6 Medical (six) Branch hours as needed for Anxiety. Total 2022- No at 40.6 Univers Parenteral 8-17 08-17 mL/hr, 650 it y of Nutrition 02:00: 17:59 mL, [place] 00 :00 CYCLIC, Medical Starting Branch on Sun02/21/23 at 2100, Until [place] 02/22/23 at 1259 NaCl 0.45% 0 Yes 1000mL at 100 Uni vers (1/2NS) IV 8-15 mL/hr, ity of infusion 21:15: 1,000 mL, [place] 1,000 mL 00 IV Medical Infusion, Branch CONTINUOUS , Starting on Sun02/20/23 at 1615, Until Discontinu ed, Routine famotidine 0 2022- No 40mg 40 mg, Univ ers (PEPCID) 815 08-15 Oral, ity of tablet 40 21:15: 20:27 ONCE, 1 [place] mg 00 :00 dose, On Medical Sun Branch 02/20/23 at 1615, Routine NaCl 0.9% 2022- No 1500mL at 999 Uni vers (NS) bolus 02-20 mL/hr, ity of infusion 21:00: 20:33 1,500 mL, [place] 1,500 mL 00 :00 IV Medical Piggyback, Branch ONCE, 1 dose, On Sun02/20/23 at 1600, STAT proCHLORper 2022- No 10mg 10 mg, IV Univers azine 02-20 08-16 Piggyback, ity of (COMPAZINE) 20:17: 21:36 at 100 [place] 10 mg in 22 :00 mL/hr Medical NaCl 0.9% Administer Bran ch (NS) over 30 piggyback Minutes, Q6HPRN, 3 doses, Starting on Sun02/20/23 at 1517, Until Sun02/21/23 at 1636, Routine, Nausea and Vomiting (N/V) ketorolac 2022- No 30mg 30 mg, Unive rs (TORADOL) 02-20-16 Slow IV ity of injection 20:02: 21:03 Push, [place] 30 mg 57 :00 Q8HPRN, 3 Medical doses, Branch Starting on Sun02/20/23 at 1502, Until Sun02/21/23 at 2359, Routine, Pain (scale 7-10) linaCLOtide Yes 1{capsu 145 mcg (1 Univers (LINZESS) -15 le} capsule), ity o f capsule Cap 14:00: Oral, [place] 145 mcg 00 DAILY, Medical First dose Branch on Sun02/20/23 at 0900, Until Discontinu ed, Routine
Medicatio n Name: Linzess 145mcg Capsules<b r>Length of Therapy: 1 Day
How soon needed (normally 72 hours needed to procure): 0-24 hrs
Luz Elena son for non-formul marlene use: PATIENT CURRENTLY TAKING NONFORMULA RY PRODUCT
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
Speci fic indication for non formulary use: Severe constipati on
Lite rature citation: none
Do tiffanie Form: Capsule pantoprazol Yes 40mg 40 mg, Univ ers e 8-15 Oral, ity of (PROTONIX) 14:00: DAILY, [place] EC tablet 00 First dose Medi janet 40 mg on [facility] 02/20/23 at 0900, Until Discontinu ed, Routine nadoloL 0 Yes 40mg 40 mg, Univers (CORGARD) 8-15 Oral, ity of tablet 40 14:00: DAILY, [place] mg 00 First dose Medical on [facility] 02/20/23 at 0900, Until Discontinu ed, Routine levothyroxi 0 Yes 100ug 100 mcg, U nivers ne 8-15 Oral, ity of (SYNTHROID) 11:00: QAM-0600, [place] tablet 100 00 First dose Med ical mcg on [facility] 02/20/23 at 0600, Until Discontinu ed, Routine Total 2022- No at 40.6 Univers Parenteral 815 08-15 mL/hr, 650 it y of Nutrition 02:00: 17:59 mL, TPN [place] 00 :00 CYCLIC, Medical Starting Branch on Sun02/19/23 at 2100, Until Sun02/20/23 at 1259 pramipexole 0 Yes .25mg 0.25 mg, U nivers (MIRAPEX) 8-15 Oral, BID, ity of tablet 0.25 01:00: First dose [place] mg 00 on [facility] 02/19/23 at Branch 1999, Until Discontinu ed, Routine acetaZOLAMI 0 Yes 500mg 500 mg, Un bry DE (DIAMOX) 8-15 Oral, BID, it y of tablet 500 01:00: First dose [place] mg 00 (after Medical last Branch modificati on) on [facility] 02/19/23 at 1999, Until Discontinu ed, VESNA apixaban 0 Yes 5523 5mg 5 mg, Univers (ELIQUIS) 8-15 Oral, BID, ity of tablet 5 mg 01:00: First dose [place] 00 on [facility] 02/19/23 at Branch 1999, Until Discontinu ed, Routine
Indicatio ns: DVT/PE fluticasone 0 Yes 1{spray 1 [place], Univers propionate 8-15 } Nasal, ity of 50 01:00: BID, First [place] mcg/actuati 00 dose on Medic al on nasal [facility] spray 1 02/19/23 at [place] 2000, Until Discontinu ed, Routine tiZANidine 3-0 Yes 4mg 4 mg, Univer s (ZANAFLEX) 8 Oral, ity of tablet 4 mg 20:55: Q8HPRN, [place] 58 Starting Medical on Sun [place] 02/19/23 at 1555, Until Discontinu ed, Routine, Muscle Spasms proMETHazin 3-0 Yes 50mg 50 mg, Univ ers e 8 Oral, ity of (PHENERGAN) 15:14: Q6HPRN, [facility] as tablet 50 22 Starting Medica l mg on Sun02/19/23 at 1014, Until Discontinu ed, Routine, Nausea and Vomiting (N/V) bisacodyL 3-0 Yes 5mg 5 mg, Univers (DULCOLAX) 02-19 Oral, ity of tablet 5 mg 14:40: QDAILYP, [place] 44 Starting Medical on Sun02/19/23 at 0940, Until Discontinu ed, Routine, Constipati on acetaminoph 2022-0 Yes 650mg 650 mg, Un bry en 02-19 Oral, ity of (TYLENOL) 14:39: [place], [place] tablet 650 16 Starting Medic al mg on Sun02/19/23 at 0939, Until Discontinu ed, Routine, Pain (scale 1-3) LORazepam 3-0 Yes 2mg 2 mg, Slow Un bry (ATIVAN) 02-19 IV Push, ity of injection 2 14:37: PRN - SEE [place] mg 50 [facility] NS, 2 Branch doses, Starting on Sun02/19/23 at 0937, Until Discontinu ed, STAT, For seizure lasting two minutes or longer. apixaban 2023-0 Yes [id number] 5mg Take 1 Univers (ELIQUIS) 5 8-07 tablet by ity of mg tablet 00:00: mouth in [place] Branch and 1 tablet in the evening. Indication s: history of deep vein thrombosis apixaban 2023-0 Yes 5523 5mg Take 1 Univers (ELIQUIS) 5 8-07 tablet by ity of mg tablet 00:00: mouth in [place] 00 the and 1 tablet in the evening. Indication s: history of deep vein thrombosis apixaban 2023-0 Yes 5523 5mg Take 1 Univers (ELIQUIS) 5 8-07 tablet by ity of mg tablet 00:00: mouth in [place] 00 the Medical morning Branch and 1 tablet in the evening. Indication s: history of deep vein thrombosis apixaban 2023-0 Yes 5523 5mg Take 1 Univers (ELIQUIS) 5 8-07 tablet by ity of mg tablet 00:00: mouth in [place] 00 the Medical morning Branch and 1 tablet in the evening. Indication s: history of deep vein thrombosis apixaban 2023-0 Yes 5523 5mg Take 1 Univers (ELIQUIS) 5 8-07 tablet by ity of mg tablet 00:00: mouth in [place] 00 the Medical morning Branch and 1 tablet in the evening. Indication s: history of deep vein thrombosis apixaban 3-0 Yes 5523 5mg Take 1 Univers (ELIQUIS) 5 8-07 tablet by ity of mg tablet 00:00: mouth in [place] 00 the Medical morning Branch and 1 tablet in the evening. Indication s: history of deep vein thrombosis apixaban 3-0 Yes 5523 5mg Take 1 Univers (ELIQUIS) 5 8-07 tablet by ity of mg tablet 00:00: mouth in [place] 00 the Medical morning Branch and 1 tablet in the evening. Indication s: history of deep vein thrombosis apixaban 3-0 Yes 5523 5mg Take 1 Univers (ELIQUIS) 5 8-07 tablet by ity of mg tablet 00:00: mouth in [place] 00 the Medical morning Branch and 1 tablet in the evening. Indication s: history of deep vein thrombosis apixaban 3-0 Yes 5523 5mg Take 1 Univers (ELIQUIS) 5 8-07 tablet by ity of mg tablet 00:00: mouth in [place] 00 the Medical morning Branch and 1 tablet in the evening. Indication s: history of deep vein thrombosis apixaban 2023-0 Yes 5523 5mg Take 1 Univers (ELIQUIS) 5 8-07 tablet by ity of mg tablet 00:00: mouth in [place] 00 the Medical morning Branch and 1 tablet in the evening. Indication s: history of deep vein thrombosis apixaban 2023-0 Yes 5523 5mg Take 1 Univers (ELIQUIS) 5 8-07 tablet by ity of mg tablet 00:00: mouth in [place] 00 the Medical morning Branch and 1 tablet in the evening. Indication s: history of deep vein thrombosis apixaban 2023-0 Yes 5523 5mg Take 1 Univers (ELIQUIS) 5 8-07 tablet by ity of mg tablet 00:00: mouth in [place] 00 the Medical morning Branch and 1 tablet in the evening. Indication s: history of deep vein thrombosis apixaban 2023-0 Yes 5523 5mg Take 1 Univers (ELIQUIS) 5 8-07 tablet by ity of mg tablet 00:00: mouth in [place] 00 the Medical morning Branch and 1 tablet in the evening. Indication s: history of deep vein thrombosis apixaban 2023-0 Yes 5523 5mg Take 1 Univers (ELIQUIS) 5 8-07 tablet by ity of mg tablet 00:00: mouth in [place] 00 the Medical morning Branch and 1 tablet in the evening. Indication s: history of deep vein thrombosis apixaban 2023-0 Yes 5523 5mg Take 1 Univers (ELIQUIS) 5 8-07 tablet by ity of mg tablet 00:00: mouth in [place] 00 the Medical morning Branch and 1 tablet in the evening. Indication s: history of deep vein thrombosis apixaban 3-0 Yes 5523 5mg Take 1 Univers (ELIQUIS) 5 8-07 tablet by ity of mg tablet 00:00: mouth in [place] 00 the Medical morning Branch and 1 tablet in the evening. Indication s: history of deep vein thrombosis apixaban 2023-0 Yes 5523 5mg Take 1 Univers (ELIQUIS) 5 8-07 tablet by ity of mg tablet 00:00: mouth in [place] 00 the Medical morning Branch and 1 tablet in the evening. Indication s: history of deep vein thrombosis apixaban 2023-0 Yes 5523 5mg Take 1 Univers (ELIQUIS) 5 8-07 tablet by ity of mg tablet 00:00: mouth in [place] 00 the Medical morning Branch and 1 tablet in the evening. Indication s: history of deep vein thrombosis apixaban 2023-0 Yes 5523 5mg Take 1 Univers (ELIQUIS) 5 8-07 tablet by ity of mg tablet 00:00: mouth in [place] 00 the Medical morning Branch and 1 tablet in the evening. Indication s: history of deep vein thrombosis apixaban Yes 5523 5mg Take 1 Univers (ELIQUIS) 5 8-07 tablet by ity of mg tablet 00:00: mouth in [place] 00 the morning Branch and 1 tablet in the evening. Indication s: history of deep vein thrombosis heparin 2022- No PRN, Univers lock flush 02-01 Starting ity of (HEPARIN 17:28: 17:28 on [facility] [place] LOCKFLUSH(P 00 :00 02/01/23 at Ar dical ORCINE)(PF) 1228, [place] ) 100 Until [place] unit/mL 02/01/23 at injection 1228, Routine, Intra-op heparin 2022- No PRN, Univers lock flush 02-01 Starting ity of (HEPARIN 17:28: 17:28 on [facility] LOCKFLUSH(P 00 :00 02/01/23 at Ar dical ORCINE)(PF) 1228, [place] ) 100 Until [place] unit/mL 02/01/23 at injection 1228, Routine, Intra-op alteplase 2022- No Intravenou U nivers (ACTIVASE) 02-01 s, PRN, ity o f injection 16:38: 16:38 Starting [place] 00 :00 on [facility] 02/01/23 at Branch 1138, Until [place] 02/01/23 at 1138, Routine, Intra-op alteplase 2022- No Intravenou U nivers (ACTIVASE) 02-01 s, PRN, ity o f injection 16:38: 16:38 Starting [place] 00 :00 on [facility] 02/01/23 at Branch 1138, Until [place] 02/01/23 at 1138, Routine, Intra-op ketorolac 2022- No 30mg 30 mg, Unive rs (TORADOL) 01-18 Slow IV ity of injection 16:15: 15:53 [place], ONCE [place] 30 mg 00 :00 NOW, 1 Medical dose, On [facility] 01/18/23 at 1115, VESNA proCHLORper 2022- No 10mg 10 mg, IV Univers azine 01-18 Piggyback, ity of (COMPAZINE) 16:15: 16:21 at 100 [place] 10 mg in 00 :00 mL/hr Medical NaCl 0.9% Administer Bran ch (NS) over 30 piggyback Minutes, ONCE, 1 dose, On [place] 01/18/23 at 1115, VESNA NaCl 0.9% 0 2022- No 1000mL at 999 Uni vers (NS) bolus 01-18 mL/hr, ity of infusion 16:15: 18:00 1,000 mL, [place] 1,000 mL 00 :00 IV Medical Piggyback, Branch ONCE, 1 dose, On [facility] 01/18/23 at 1115, STAT alum-mag 2022- No 30mL 30 mL, Univer s hydroxide-s 01-18 Oral, ity of imeth 15:30: 15:51 ONCE, 1 [place] (MAALOX 00 :00 dose, On Medical PLUS / [place] Branch MAG-AL 01/18/23 at PLUS) 1030, VESNA 200-200-20 mg/5 mL suspension 30 mL famotidine 2022-0 Yes [id number] 20mg Take 1 U nivers (PEPCID) 20 7-13 tablet by ity of mg tablet 00:00: mouth in [place] 00 the Medical morning Branch and 1 tablet in the evening. sucralfate 2022-0 Yes [id number] 1g Take 1 U nivers 1 gram 7-13 tablet by ity of tablet 00:00: mouth [place] 00 before Medical meals and Branch at bedtime. loperamide 2022-0 Yes [id number] 2mg Take 1 U nivers 2 mg 7-13 capsule by ity of capsule 00:00: mouth 3 [place] 00 (three) Medical times Branch daily as needed for Diarrhea. Saccharomyc 2022-0 Yes [id number] 250mg Take 1 Univers es 7-13 capsule by ity of boulardii 00:00: mouth in [place] (FLORASTOR[place] 00 the Medical 250 mg morning Branch capsule and 1 capsule in the evening. meloxicam 2022-0 Yes [id number] 15mg Take 1 Un bry 15 mg 7-13 tablet by ity of tablet 00:00: mouth in [place] 00 the Medical morning. Branch famotidine 2023-0 Yes [id number] 20mg Take 1 U nivers (PEPCID) 20 7-13 tablet by ity of mg tablet 00:00: mouth in [place] 00 the Medical morning Branch and 1 tablet in the evening. sucralfate 2023-0 Yes [id number] 1g Take 1 U nivers 1 gram 7-13 tablet by ity of tablet 00:00: mouth [place] 00 before Medical meals and Branch at bedtime. loperamide 2023-0 Yes [id number] 2mg Take 1 U nivers 2 mg 7-13 capsule by ity of capsule 00:00: mouth 3 [place] 00 (three) Medical times Branch daily as needed for Diarrhea. Saccharomyc 2023-0 Yes [id number] 250mg Take 1 Univers es 7-13 capsule by ity of boulardii 00:00: mouth in [facility] ([place]) 00 the Medical 250 mg morning Branch capsule and 1 capsule in the evening. meloxicam 2023-0 Yes [id number] 15mg Take 1 Un bry 15 mg 7-13 tablet by ity of tablet 00:00: mouth in [place] 00 the Medical morning. Branch famotidine 3-0 Yes [id number] 20mg Take 1 U nivers (PEPCID) 20 7-13 tablet by ity of mg tablet 00:00: mouth in [place] the Medical morning Branch and 1 tablet in the evening. sucralfate 2023-0 Yes [id number] 1g Take 1 U nivers 1 gram 7-13 tablet by ity of tablet 00:00: mouth [place] 00 before Medical meals and Branch at bedtime. loperamide 2023-0 Yes [id number] 2mg Take 1 U nivers 2 mg 7-13 capsule by ity of capsule 00:00: mouth 3 [place] 00 (three) Medical times Branch daily as needed for Diarrhea. Saccharomyc 2023-0 Yes [id number] 250mg Take 1 Univers es 7-13 capsule by ity of boulardii 00:00: mouth in [facility] s ([place]ORAST[place]) 00 the Medical 250 mg morning Branch capsule and 1 capsule in the evening. meloxicam 2023-0 Yes [id number] 15mg Take 1 Un bry 15 mg 7-13 tablet by ity of tablet 00:00: mouth in [place] 00 the Medical morning. Branch famotidine 2023-0 Yes [id number] 20mg Take 1 U nivers (PEPCID) 20 7-13 tablet by ity of mg tablet 00:00: mouth in [place] 00 the Medical morning Branch and 1 tablet in the evening. sucralfate 2023-0 Yes [id number] 1g Take 1 U nivers 1 gram 7-13 tablet by ity of tablet 00:00: mouth [place] 00 before Medical meals and Branch at bedtime. loperamide 2023-0 Yes [id number] 2mg Take 1 U nivers 2 mg 7-13 capsule by ity of capsule 00:00: mouth 3 [place] 00 (three) Medical times Branch daily as needed for Diarrhea. Saccharomyc 2023-0 Yes [id number] 250mg Take 1 Univers es 7-13 capsule by ity of boulardii 00:00: mouth in [facility] s ([place]ORASTOR) 00 the Medical 250 mg morning Branch capsule and 1 capsule in the evening. meloxicam 2023-0 Yes [id number] 15mg Take 1 Un bry 15 mg 7-13 tablet by ity of tablet 00:00: mouth in [place] 00 the Medical morning. Branch famotidine 3-0 Yes [id number] 20mg Take 1 U nivers (PEPCID) 20 7-13 tablet by ity of mg tablet 00:00: mouth in [facility] 00 the Medical morning Branch and 1 tablet in the evening. sucralfate 2023-0 Yes [id number] 1g Take 1 U nivers 1 gram 7-13 tablet by ity of tablet 00:00: mouth [place] 00 before Medical meals and Branch at bedtime. loperamide 2023-0 Yes [id number] 2mg Take 1 [facility] 2 mg 7-13 capsule by ity of capsule 00:00: mouth 3 [place] 00 (three) Medical times Branch daily as needed for Diarrhea. Saccharomyc 2023-0 Yes [id number] 250mg Take 1 [facility] 7-13 capsule by ity of [place]ii 00:00: mouth in [facility] ([place]) 00 the Medical 250 mg morning Branch capsule and 1 capsule in the evening. meloxicam 2023-0 Yes [id number] 15mg Take 1 [facility] 15 mg 7-13 tablet by ity of tablet 00:00: mouth in [place] 00 the Medical morning. Branch famotidine 2023-0 Yes [id number] 20mg Take 1 [facility] nivers (PEPCID) 20 7-13 tablet by [facility] of mg tablet 00:00: mouth [place] 00 the Medical morning Branch and 1 tablet in the evening. sucralfate 2023-0 Yes [id number] 1g Take 1 [facility] nivers 1 gram 7-13 tablet by ity of tablet 00:00: mouth [place] 00 before Medical meals and Branch at bedtime. loperamide 2023-0 Yes [id number] 2mg Take 1 [facility] n[facility] 2 mg 7-13 capsule by ity of capsule 00:00: mouth 3 [place] 00 (three) Medical times Branch daily as needed for Diarrhea. Saccharomyc 2023-0 Yes [id number] 250mg Take 1 [facility] es 7-13 capsule by ity of [place]ii 00:00: mouth in [facility] ([place]) 00 the Medical 250 mg morning Branch capsule and 1 capsule in the evening. meloxicam 2023-0 Yes [id number] 15mg Take 1 [facility] 15 mg 7-13 tablet by ity of tablet 00:00: mouth in [place] 00 the Medical morning. Branch famotidine 3-0 Yes [id number] 20mg Take 1 [facility] (PEPCID) 20 7-13 tablet by ity of mg tablet 00:00: mouth in [facility] 00 the Medical morning Branch and 1 tablet in the evening. sucralfate 2023-0 Yes [id number] 1g Take 1 [facility] nivers 1 gram 7-13 tablet by ity of tablet 00:00: mouth [place] 00 before Medical meals and Branch at bedtime. loperamide 2023-0 Yes [id number] 2mg Take 1 [facility] n[facility] 2 mg 7-13 capsule by ity of capsule 00:00: mouth 3 [place] 00 (three) Medical times Branch daily as needed for Diarrhea. Saccharomyc 2023-0 Yes [id number] 250mg Take 1 [facility] es 7-13 capsule by ity of [place]ii 00:00: mouth in [facility] ([place]) 00 the Medical 250 mg morning Branch capsule and 1 capsule in the evening. meloxicam 2023-0 Yes [id number] 15mg Take 1 [facility] 15 mg 7-13 tablet by ity of tablet 00:00: mouth in [place] 00 the Medical morning. Branch famotidine 2023-0 Yes [id number] 20mg Take 1 [facility] (PEPCID) 20 7-13 tablet by [facility] of mg tablet 00:00: mouth [place] 00 the Medical morning Branch and 1 tablet in the evening. sucralfate 2023-0 Yes [id number] 1g Take 1 [facility] nivers 1 gram 7-13 tablet by ity of tablet 00:00: mouth [place] 00 before Medical meals and Branch at bedtime. loperamide 2023-0 Yes [id number] 2mg Take 1 [facility] 2 mg 7-13 capsule by ity of capsule 00:00: mouth 3 [place] 00 (three) Medical times Branch daily as needed for Diarrhea. Saccharomyc 2023-0 Yes [id number] 250mg Take 1 [facility] 7-13 capsule by ity of [place]ii 00:00: mouth in [facility] ([place]) 00 the Medical 250 mg morning Branch capsule and 1 capsule in the evening. meloxicam 2023-0 Yes [id number] 15mg Take 1 [facility] 15 mg 7-13 tablet by ity of tablet 00:00: mouth in [place] 00 the Medical morning. Branch famotidine 3-0 Yes [id number] 20mg Take 1 [facility] (PEPCID) 20 7-13 tablet by ity of mg tablet 00:00: mouth in [facility] 00 the Medical morning Branch and 1 tablet in the evening. sucralfate 2023-0 Yes [id number] 1g Take 1 [facility] nivers 1 gram 7-13 tablet by ity of tablet 00:00: mouth [place] 00 before Medical meals and Branch at bedtime. loperamide 2023-0 Yes [id number] 2mg Take 1 [facility] 2 mg 7-13 capsule by ity of capsule 00:00: mouth 3 [place] 00 (three) Medical times Branch daily as needed for Diarrhea. Saccharomyc 2023-0 Yes [id number] 250mg Take 1 [facility] es 7-13 capsule by ity of [place]ii 00:00: mouth in [facility] ([place]) 00 the Medical 250 mg morning Branch capsule and 1 capsule in the evening. meloxicam 2023-0 Yes [id number] 15mg Take 1 [facility] 15 mg 7-13 tablet by ity of tablet 00:00: mouth in [place] 00 the Medical morning. Branch famotidine 2023-0 Yes [id number] 20mg Take 1 [facility] (PEPCID) 20 7-13 tablet by [facility] of mg tablet 00:00: mouth in [place] 00 the Medical morning Branch and 1 tablet in the evening. sucralfate 2023-0 Yes [id number] 1g Take 1 [facility] nivers 1 gram 7-13 tablet by ity of tablet 00:00: mouth [place] 00 before Medical meals and Branch at bedtime. loperamide 2023-0 Yes [id number] 2mg Take 1 [facility] 2 mg 7-13 capsule by ity of capsule 00:00: mouth 3 [place] 00 (three) Medical times Branch daily as needed for Diarrhea. Saccharomyc 2023-0 Yes [id number] 250mg Take 1 [facility] es 7-13 capsule by ity of [place]ii 00:00: mouth in [facility] ([place]) 00 the Medical 250 mg morning Branch capsule and 1 capsule in the evening. meloxicam 2023-0 Yes [id number] 15mg Take 1 [facility] 15 mg 7-13 tablet by ity of tablet 00:00: mouth in [place] 00 the Medical morning. Branch famotidine 3-0 Yes [id number] 20mg Take 1 [facility] (PEPCID) 20 7-13 tablet by ity of mg tablet 00:00: mouth in [facility] 00 the Medical morning Branch and 1 tablet in the evening. sucralfate 2023-0 Yes [id number] 1g Take 1 [facility] nivers 1 gram 7-13 tablet by ity of tablet 00:00: mouth [place] 00 before Medical meals and Branch at bedtime. loperamide 2023-0 Yes [id number] 2mg Take 1 [facility] 2 mg 7-13 capsule by ity of capsule 00:00: mouth 3 [place] 00 (three) Medical times Branch daily as needed for Diarrhea. Saccharomyc 2023-0 Yes [id number] 250mg Take 1 [facility] es 7-13 capsule by ity of [place]ii 00:00: mouth in [facility] ([place]) 00 the Medical 250 mg morning Branch capsule and 1 capsule in the evening. meloxicam 2023-0 Yes [id number] 15mg Take 1 [facility] 15 mg 7-13 tablet by ity of tablet 00:00: mouth in [place] 00 the Medical morning. Branch famotidine 2023-0 Yes [id number] 20mg Take 1 [facility] (PEPCID) 20 7-13 tablet by [facility] of mg tablet 00:00: mouth in [place] 00 the Medical morning Branch and 1 tablet in the evening. sucralfate 3-0 Yes [id number] 1g Take 1 [facility] nivers 1 gram 7-13 tablet by ity of tablet 00:00: mouth [place] 00 before Medical meals and Branch at bedtime. loperamide 2023-0 Yes [id number] 2mg Take 1 [facility] 2 mg 7-13 capsule by ity of capsule 00:00: mouth 3 [place] 00 (three) Medical times Branch daily as needed for Diarrhea. Saccharomyc 2023-0 Yes [id number] 250mg Take 1 [facility] es 7-13 capsule by ity of [place]ii 00:00: mouth in [facility] ([place]) 00 the Medical 250 mg morning Branch capsule and 1 capsule in the evening. meloxicam 3-0 Yes [id number] 15mg Take 1 [facility] 15 mg 7-13 tablet by ity of tablet 00:00: mouth in [place] 00 the Medical morning. Branch famotidine 2022-0 Yes [id number] 20mg Take 1 [facility] (PEPCID) 20 7-13 tablet by ity of mg tablet 00:00: mouth in [facility] 00 the Medical morning Branch and 1 tablet in the evening. sucralfate 3-0 Yes [id number] 1g Take 1 [facility] nivers 1 gram 7-13 tablet by ity of tablet 00:00: mouth [place] 00 before Medical meals and Branch at bedtime. loperamide 3-0 Yes [id number] 2mg Take 1 [facility] 2 mg 7-13 capsule by ity of capsule 00:00: mouth 3 [place] 00 (three) Medical times Branch daily as needed for Diarrhea. Saccharomyc 2023-0 Yes [id number] 250mg Take 1 [facility] es 7-13 capsule by ity of [place]ii 00:00: mouth in [facility] ([place]) 00 the Medical 250 mg morning Branch capsule and 1 capsule in the evening. meloxicam 2023-0 Yes [id number] 15mg Take 1 [facility] 15 mg 7-13 tablet by ity of tablet 00:00: mouth in [place] 00 the Medical morning. Branch famotidine 2023-0 Yes [id number] 20mg Take 1 [facility] (PEPCID) 20 7-13 tablet by [facility]y of mg tablet 00:00: mouth [place] 00 the Medical morning Branch and 1 tablet in the evening. sucralfate 2023-0 Yes [id number] 1g Take 1 [facility] nivers 1 gram 7-13 tablet by ity of tablet 00:00: mouth [place] 00 before Medical meals and Branch at bedtime. loperamide 2023-0 Yes [id number] 2mg Take 1 [facility] 2 mg 7-13 capsule by ity of capsule 00:00: mouth 3 [place] 00 (three) Medical times Branch daily as needed for Diarrhea. Saccharomyc 2023-0 Yes [id number] 250mg Take 1 [facility] es 7-13 capsule by ity of [place] 00:00: mouth in [facility] ([place]) 00 the Medical 250 mg morning Branch capsule and 1 capsule in the evening. meloxicam 3-0 Yes [id number] 15mg Take 1 [facility] 15 mg 7-13 tablet by ity of tablet 00:00: mouth in [place] 00 the Medical morning. Branch famotidine 3-0 Yes [id number] 20mg Take 1 [facility] nivers (PEPCID) 20 7-13 tablet by ity of mg tablet 00:00: mouth in [facility] 00 the Medical morning Branch and 1 tablet in the evening. sucralfate 3-0 Yes [id number] 1g Take 1 [facility] nivers 1 gram 7-13 tablet by ity of tablet 00:00: mouth [place] 00 before Medical meals and Branch at bedtime. loperamide 3-0 Yes [id number] 2mg Take 1 [facility] 2 mg 7-13 capsule by ity of capsule 00:00: mouth 3 [place] 00 (three) Medical times Branch daily as needed for Diarrhea. Saccharomyc 2023-0 Yes [id number] 250mg Take 1 [facility] es 7-13 capsule by ity of [place]ii 00:00: mouth in [facility] ([place]) 00 the Medical 250 mg morning Branch capsule and 1 capsule in the evening. meloxicam 2023-0 Yes [id number] 15mg Take 1 [facility] 15 mg 7-13 tablet by ity of tablet 00:00: mouth in [place] 00 the Medical morning. Branch famotidine 2023-0 Yes [id number] 20mg Take 1 [facility] (PEPCID) 20 7-13 tablet by ity of mg tablet 00:00: mouth in [place] 00 the Medical morning Branch and 1 tablet in the evening. sucralfate 2023-0 Yes [id number] 1g Take 1 [facility] nivers 1 gram 7-13 tablet by ity of tablet 00:00: mouth [place] 00 before Medical meals and Branch at bedtime. loperamide 3-0 Yes [id number] 2mg Take 1 [facility] n[facility] 2 mg 7-13 capsule by ity of capsule 00:00: mouth 3 [place] 00 (three) Medical times Branch daily as needed for Diarrhea. Saccharomyc 2023-0 Yes [id number] 250mg Take 1 [facility] 7-13 capsule by [facility] [place] 00:[place]: [place] 00 the Medical 250 mg morning Branch capsule and 1 capsule in the evening. meloxicam 2022-0 Yes [id number] 15mg Take 1 [facility] 15 mg 7-13 tablet by ity of tablet 00:00: mouth in [place] 00 the Medical morning. Branch famotidine 2022-0 Yes [id number] 20mg Take 1 [facility] nivers (PEPCID) 20 7-13 tablet by ity of mg tablet 00:00: mouth in [place] 00 the Medical morning Branch and 1 tablet in the evening. sucralfate 3-0 Yes [id number] 1g Take 1 [facility] nivers 1 gram 7-13 tablet by ity of tablet 00:00: mouth [place] 00 before Medical meals and Branch at bedtime. loperamide 2022-0 Yes [id number] 2mg Take 1 [facility] 2 mg 7-13 capsule by ity of capsule 00:00: mouth 3 [place] 00 (three) Medical times Branch daily as needed for Diarrhea. Saccharomyc 2023-0 Yes [id number] 250mg Take 1 [facility] 7-13 capsule by [facility] [place] 00:[place]: [place] 00 the Medical 250 mg morning Branch capsule and 1 capsule in the evening. meloxicam 2023-0 Yes [id number] 15mg Take 1 [facility] 15 mg 7-13 tablet by ity of tablet 00:00: mouth in [place] 00 the Medical morning. Branch famotidine 2023-0 Yes [id number] 20mg Take 1 [facility] (PEPCID) 20 7-13 tablet by ity of mg tablet 00:00: mouth in [place] 00 the Medical morning Branch and 1 tablet in the evening. Saccharomyc 2023-0 Yes [id number] 250mg Take 1 [facility] es 7-13 capsule by [facility] of [place] 00:00: mouth [place] ([place] 00 the Medical 250 mg morning Branch capsule and 1 capsule in the evening. famotidine 2023-0 Yes [id number] 20mg Take 1 [facility] (PEPCID) 20 7-13 tablet by ity of mg tablet 00:00: mouth in [place] 00 the Medical morning Branch and 1 tablet in the evening. Saccharomyc 2023-0 Yes [id number] 250mg Take 1 [facility] es 7-13 capsule by [facility] of [place] 00:00: mouth [place] ([place] 00 the Medical 250 mg morning Branch capsule and 1 capsule in the evening. famotidine 2023-0 Yes [id number] 20mg Take 1 [facility] (PEPCID) 20 7-13 tablet by ity of mg tablet 00:00: mouth in [place] 00 the Medical morning Branch and 1 tablet in the evening. Saccharomyc 2023-0 Yes [id number] 250mg Take 1 [facility] es 7-13 capsule by [facility] of [place] 00:00: mouth [place] ([place] 00 the Medical 250 mg morning Branch capsule and 1 capsule in the evening. famotidine 2023-0 Yes [id number] 20mg Take 1 [facility] nivers (PEPCID) 20 7-13 tablet by ity of mg tablet 00:00: mouth in [place] 00 the Medical morning Branch and 1 tablet in the evening. Saccharomyc 2023-0 Yes [id number] 250mg Take 1 [facility] 7-13 capsule by [facility] of [place] 00:00: mouth [place] ([place] 00 the Medical 250 mg morning Branch capsule and 1 capsule in the evening. famotidine 2023-0 Yes [id number] 20mg Take 1 [facility] nivers (PEPCID) 20 7-13 tablet by ity of mg tablet 00:00: mouth in [place] 00 the Medical morning Branch and 1 tablet in the evening. Saccharomyc 2023-0 Yes [id number] 250mg Take 1 [facility] es 7-13 capsule by it[facility] of [place] 00:00: mouth [place] ([place] 00 the Medical 250 mg morning Branch capsule and 1 capsule in the evening. famotidine 2023-0 Yes [id number] 20mg Take 1 [facility]ivers (PEPCID) 20 7-13 tablet by ity of mg tablet 00:00: mouth in [place] 00 the Medical morning Branch and 1 tablet in the evening. Saccharomyc 2023-0 Yes [id number] 250mg Take 1 [facility] es 7-13 capsule by [facility] of [place] 00:00: mouth [place] ([place] 00 the Medical 250 mg morning Branch capsule and 1 capsule in the evening. famotidine 2023-0 Yes [id number] 20mg Take 1 [facility] (PEPCID) 20 7-13 tablet by ity of mg tablet 00:00: mouth in [place] 00 the Medical morning Branch and 1 tablet in the evening. Saccharomyc 2023-0 Yes [id number] 250mg Take 1 [facility] 7-13 capsule by it[facility] of [place] 00:00: mouth [place] ([place] 00 the Medical 250 mg morning Branch capsule and 1 capsule in the evening. famotidine 2023-0 Yes [id number] 20mg Take 1 [facility] (PEPCID) 20 7-13 tablet by ity of mg tablet 00:00: mouth in [place] 00 the Medical morning Branch and 1 tablet in the evening. Saccharomyc 2023-0 Yes [id number] 250mg Take 1 [facility] es 7-13 capsule by [facility] of [place] 00:00: mouth [place] ([place] 00 the Medical 250 mg morning Branch capsule and 1 capsule in the evening. famotidine 2023-0 Yes [id number] 20mg Take 1 [facility] (PEPCID) 20 7-13 tablet by ity of mg tablet 00:00: mouth in [place] 00 the Medical morning Branch and 1 tablet in the evening. Saccharomyc 2023-0 Yes [id number] 250mg Take 1 [facility] 7-13 capsule by it[facility] of [place] 00:00: mouth [place] ([place] 00 the Medical 250 mg morning Branch capsule and 1 capsule in the evening. famotidine 2023-0 Yes [id number] 20mg Take 1 [facility] (PEPCID) 20 7-13 tablet by ity of mg tablet 00:00: mouth in [place] 00 the Medical morning Branch and 1 tablet in the evening. Saccharomyc 2023-0 Yes [id number] 250mg Take 1 [facility] es 7-13 capsule by it[facility] of [place] 00:00: mouth [place] ([place] 00 the Medical 250 mg morning Branch capsule and 1 capsule in the evening. famotidine 2023-0 Yes [id number] 20mg Take 1 [facility] (PEPCID) 20 7-13 tablet by ity of mg tablet 00:00: mouth in [place] 00 the Medical morning Branch and 1 tablet in the evening. Saccharomyc 2023-0 Yes [id number] 250mg Take 1 [facility] 7-13 capsule by it[facility] of [place] 00:00: mouth [place] ([place] 00 the Medical 250 mg morning Branch capsule and 1 capsule in the evening. famotidine 2023-0 Yes [id number] 20mg Take 1 [facility]ivers (PEPCID) 20 7-13 tablet by ity of mg tablet 00:00: mouth in [place] 00 the Medical morning Branch and 1 tablet in the evening. Saccharomyc 2023-0 Yes [id number] 250mg Take 1 [facility] 7-13 capsule by [facility] of [place] 00:00: mouth [place] ([place] 00 the Medical 250 mg morning Branch capsule and 1 capsule in the evening. famotidine 2023-0 Yes [id number] 20mg Take 1 [facility] (PEPCID) 20 7-13 tablet by ity of mg tablet 00:00: mouth in [place] 00 the Medical morning Branch and 1 tablet in the evening. Saccharomyc 2023-0 Yes [id number] 250mg Take 1 [facility] 7-13 capsule by [facility] of [place] 00:00: mouth [place] ([place] 00 the Medical 250 mg morning Branch capsule and 1 capsule in the evening. famotidine 2023-0 Yes [id number] 20mg Take 1 [facility] (PEPCID) 20 7-13 tablet by ity of mg tablet 00:00: mouth in [place] 00 the Medical morning Branch and 1 tablet in the evening. Saccharomyc 2023-0 Yes [id number] 250mg Take 1 [facility] 7-13 capsule by [facility] of [place] 00:00: mouth [place] ([place] 00 the Medical 250 mg morning Branch capsule and 1 capsule in the evening. famotidine 2023-0 Yes [id number] 20mg Take 1 [facility]ivers (PEPCID) 20 7-13 tablet by ity of mg tablet 00:00: mouth in [place] 00 the Medical morning Branch and 1 tablet in the evening. Saccharomyc 2023-0 Yes [id number] 250mg Take 1 [facility] es 7-13 capsule by [facility] of [place] 00:00: mouth [place] ([place] 00 the Medical 250 mg morning Branch capsule and 1 capsule in the evening. famotidine 2023-0 Yes [id number] 20mg Take 1 [facility] (PEPCID) 20 7-13 tablet by ity of mg tablet 00:00: mouth in [place] 00 the Medical morning Branch and 1 tablet in the evening. Saccharomyc 2023-0 Yes [id number] 250mg Take 1 [facility] es 7-13 capsule by it[facility] of [place] 00:00: mouth [place] ([place] 00 the Medical 250 mg morning Branch capsule and 1 capsule in the evening. famotidine 2023-0 Yes [id number] 20mg Take 1 [facility] (PEPCID) 20 7-13 tablet by ity of mg tablet 00:00: mouth in [place] 00 the Medical morning Branch and 1 tablet in the evening. Saccharomyc 2023-0 Yes [id number] 250mg Take 1 [facility] es 7-13 capsule by [facility] of [place] 00:00: mouth [place] ([place] 00 the Medical 250 mg morning Branch capsule and 1 capsule in the evening. famotidine 2023-0 Yes [id number] 20mg Take 1 [facility] nivers (PEPCID) 20 7-13 tablet by ity of mg tablet 00:00: mouth in [place] 00 the Medical morning Branch and 1 tablet in the evening. Saccharomyc 2023-0 Yes [id number] 250mg Take 1 [facility] es 7-13 capsule by [facility] of [place] 00:00: mouth [place] ([place] 00 the Medical 250 mg morning Branch capsule and 1 capsule in the evening. famotidine 2023-0 Yes [id number] 20mg Take 1 [facility] nivers (PEPCID) 20 7-13 tablet by ity of mg tablet 00:00: mouth in [place] 00 the Medical morning Branch and 1 tablet in the evening. Saccharomyc 2023-0 Yes [id number] 250mg Take 1 [facility] es 7-13 capsule by [facility] of [place] 00:00: mouth [place] ([place] 00 the Medical 250 mg morning Branch capsule and 1 capsule in the evening. famotidine 2023-0 Yes [id number] 20mg Take 1 [facility]ivers (PEPCID) 20 7-13 tablet by ity of mg tablet 00:00: mouth in [place] 00 the Medical morning Branch and 1 tablet in the evening. Saccharomyc 2023-0 Yes [id number] 250mg Take 1 [facility] es 7-13 capsule by [facility] of [place] 00:00: mouth [place] ([place] 00 the Medical 250 mg morning Branch capsule and 1 capsule in the evening. famotidine 2023-0 2023- No [id number] 20mg Take 1 [facility] (PEPCID) 20 7-03-09 tablet by it y of mg tablet 00:00: 00:00 mouth in [place] 00 :00 the Medical morning Branch and 1 tablet in the evening. Saccharomyc 2023-0 2023- No [id number] 250mg Take 1 [facility] es 7-21 03- capsule by ity of [place] 00:00: 00:00 mouth in [place] ([place]) 00 :00 the Medical 250 mg morning Branch capsule and 1 capsule in the evening. famotidine 2023-0 2023- No [id number] 20mg Take 1 [facility] (PEPCID) 20 7-21 03- tablet by it y of mg tablet 00:00: 00:00 mouth in [place] 00 :00 the Medical morning Branch and 1 tablet in the evening. Saccharomyc 2023-0 2023- No [id number] 250mg Take 1 [facility] es 7-21 03- capsule by ity of [place] 00:00: 00:00 mouth in [place] ([place]) 00 :00 the Medical 250 mg morning Branch capsule and 1 capsule in the evening. sucralfate 3-0 3- No [id number] 1g Take 1 [facility] 1 gram 7-13 08-07 tablet by ity of tablet 00:00: 00:00 mouth [place] 00 :00 before Medical meals and Branch at bedtime. loperamide 3-0 3- No [id number] 2mg Take 1 [facility] 2 mg 7-13 08-07 capsule by ity of capsule 00:00: 00:00 mouth 3 [place] 00 :00 (three) Medical times Branch daily as needed for Diarrhea. meloxicam 2022-0 3- No [id number] 15mg Take 1 [facility] nivers 15 mg 7-13 08-07 tablet by ity of tablet 00:00: 00:00 mouth in [place] 00 :00 the Medical morning. Branch sucralfate 2022-0 3- No [id number] 1g Take 1 [facility] 1 gram 7-13 08-07 tablet by ity of tablet 00:00: 00:00 mouth [place] 00 :00 before Medical meals and Branch at bedtime. loperamide 2022-0 2022- No [id number] 2mg Take 1 [facility] 2 mg 7-13 08-07 capsule by ity of capsule 00:00: 00:00 mouth 3 [place] 00 :00 (three) Medical times Branch daily as needed for Diarrhea. meloxicam 2022-0 2022- No [id number] 15mg Take 1 U nivers 15 mg 7-13 08-07 tablet by ity of tablet 00:00: 00:00 mouth in [place] 00 :00 the Medical morning. Branch sucralfate 2022-0 2022- No [id number] 1g Take 1 [facility] 1 gram 7-13 08-07 tablet by ity of tablet 00:00: 00:00 mouth [place] 00 :00 before Medical meals and Branch at bedtime. loperamide 3-0 3- No [id number] 2mg Take 1 [facility] 2 mg 7-13 08-07 capsule by ity of capsule 00:00: 00:00 mouth 3 [place] 00 :00 (three) Medical times Branch daily as needed for Diarrhea. meloxicam 2023-0 2023- No [id number] 15mg Take 1 [facility] nivers 15 mg 7-13 08-07 tablet by ity of tablet 00:00: 00:00 mouth in [place] 00 :00 the Medical morning. Branch sucralfate 2022- No [id number] 1g Take 1 [facility] 1 gram 01-18 tablet by ity of tablet 00:00: 00:00 mouth [place] 00 :00 before Medical meals and Branch at bedtime. loperamide 2022- No [id number] 2mg Take 1 [facility] 2 mg 01-18 capsule by ity of capsule 00:00: 00:00 mouth 3 [place] 00 :00 (three) Medical times Branch daily as needed for Diarrhea. meloxicam 2022- No [id number] 15mg Take 1 [facility] nivers 15 mg 01-18 tablet by ity of tablet 00:00: 00:00 mouth in [place] 00 :00 the Medical morning. Branch methylPREDN Yes [id number] Take by [facility] ISolone 01-04 mouth ity of (MEDROL, 00:00: SEE-INSTRU [place] ZULMA,) 4 mg 00 CTIONS. Medica l tablets follow Branch package directions methylPREDN Yes [id number] Take by [facility] ISolone 29 mouth ity of (MEDROL, 00:00: SEE-INSTRU [place] ZULMA,) 4 mg 00 CTIONS. Medica l tablets follow Branch package directions acetaminoph 2022- Yes [id number] 1{tbl} Take 1 U nivers en-codeine 01-04- tablet by ity of (TYLENOL-CO 00:00: 04:59 mouth [place] DEINE #3) 00 :00 every 6 Medical 300-30 mg (six) Branch tablet hours as needed for Pain (scale 7-10) for up to 7 days. Indication s: acute pain acetaminoph 2022- Yes [id number] 1{tbl} Take 1 U nivers en-codeine 01-04-07 tablet by ity of (TYLENOL-CO 00:00: 04:59 mouth [place] DEINE #3) 00 :00 every 6 Medical 300-30 mg (six) Branch tablet hours as needed for Pain (scale 7-10) for up to 7 days. Indication s: acute pain acetaminoph 2022- Yes [id number] 1{tbl} Take 1 U nivers en-codeine 01-04 tablet by ity of (TYLENOL-CO 00:00: 04:59 mouth [place] DEINE #3) 00 :00 every 6 Medical 300-30 mg (six) Branch tablet hours as needed for Pain (scale 7-10) for up to 7 days. Indication s: acute pain acetaminoph 2022- Yes [id number] 1{tbl} Take 1 U nivers en-codeine 01-04 tablet by ity of (TYLENOL-CO 00:00: 04:59 mouth [place] DEINE #3) 00 :00 every 6 Medical 300-30 mg (six) Branch tablet hours as needed for Pain (scale 7-10) for up to 7 days. Indication s: acute pain acetaminoph 2022- Yes [id number] 1{tbl} Take 1 U nivers en-codeine 01-04 tablet by ity of (TYLENOL-CO 00:00: 04:59 mouth [place] DEINE #3) 00 :00 every 6 Medical 300-30 mg (six) Branch tablet hours as needed for Pain (scale 7-10) for up to 7 days. Indication s: acute pain acetaminoph 2022- No 4647 1{tbl} Take 1 U nivers en-codeine 01-04 tablet by ity of (TYLENOL-CO 00:00: 04:59 mouth [place] DEINE #3) 00 :00 every 6 Medical 300-30 mg (six) Branch tablet hours as needed for Pain (scale 7-10) for up to 7 days. Indication s: acute pain acetaminoph 2022- No [id number] 1{tbl} Take 1 U nivers en-codeine 01-04 tablet by ity of (TYLENOL-CO 00:00: 04:59 mouth [place] DEINE #3) 00 :00 every 6 Medical 300-30 mg (six) Branch tablet hours as needed for Pain (scale 7-10) for up to 7 days. Indication s: acute pain methylPREDN 2022- No [id number] Take by [facility] 01-04 mouth ity of (MEDROL, 00:00: 00:00 SEE-INSTRU [place] ZULMA,) 4 mg 00 :00 CTIONS. Medica l tablets follow Branch package directions methylPREDN 2022-0 2022- No [id number] Take by [facility] 01-04 mouth ity of (MEDROL, 00:00: 00:00 [place] ZULMA[place] 4 mg 00 :00 CTIONS. Medica l tablets follow Branch package directions methylPREDN 2022-0 2022- No [id number] Take by [facility] 01-04 mouth ity of (MEDROL, 00:00: 00:[place] ZULMA[place] 4 mg 00 :00 CTIONS. Medica l tablets follow Branch package directions proMETHazin 0 Yes 25mg 25 mg, Univ ers e 12-30 Oral, ity of (PHENERGAN) 16:24: Q4HPRN, [place] tablet 25 53 Starting Medica l mg on [facility] Branch 12/30/22 at 1124, Until Discontinu ed, Routine, Nausea and Vomiting (N/V) KCL 2022-0 2022- No 40meq 40 mEq, Univers (KLOR-CON 12-30- Oral, ity of M20) tablet 14:30: 13:45 ONCE, 1 [place] 40 mEq 00 :00 dose, On Medical [facility] Branch 12/30/22 at 0930, Routine pantoprazol 0 Yes 40mg 40 mg, Univ ers e - Oral, ity of (PROTONIX) 14:00: DAILY, [place] EC tablet 00 First dose Medi janet 40 mg on [facility] Branch 12/30/22 at 0900, Until Discontinu ed, Routine metoprolol 0 Yes 25mg 25 mg, Unive rs tartrate 12-30 Oral, BID, ity o f (LOPRESSOR) 13:00: First dose [place] tablet 25 00 on [facility] Medical mg 12/30/22 at Branch 0800, Until Discontinu ed, Routine levothyroxi 0 Yes 100ug 100 mcg, U nivers ne 12-30 Oral, ity of (SYNTHROID) 11:00: QAM-0600, [place] tablet 100 00 First dose Med ical mcg on [facility] Branch 12/30/22 at 0600, Until Discontinu ed, Routine diazePAM 2022-0 Yes 5mg 5 mg, Univers (VALIUM) 12-30 Oral, ity of tablet 5 mg 03:27: TIDPRN, [place] 34 Starting Medical on Sun Branch 12/29/22 at 2227, Until Discontinu ed, Routine, Muscle Spasms enoxaparin 2022-0 Yes 40mg 40 mg, Unive rs (LOVENOX) 12-30 Subcutaneo ity of injection 01:00: us, Q12H, [place] 40 mg 00 First dose Medical on Sun Branch 12/29/22 at 1999, Until Discontinu ed, Routine pramipexole 2022-0 Yes .25mg 0.25 mg, U nivers (MIRAPEX) 12-30 Oral, BID, ity of tablet 0.25 01:00: First dose [place] mg 00 on Sun Medical 12/29/22 at Branch 1999, Until Discontinu ed, Routine levETIRAcet 0 Yes 500mg 500 mg, Un bry am (KEPPRA) 12-30 Oral, BID, it y of tablet 500 01:00: First dose [place] mg 00 on [place] Medical 12/29/22 at Branch 1999, Until Discontinu ed, Routine fluticasone 0 Yes 1{spray 1 [place], Univers propionate 12-30 } Nasal, ity of 50 01:00: BID, First [place] mcg/actuati 00 dose on Medic al on nasal Fri Branch spray 1 12/29/22 at [place] 1999, Until Discontinu ed, Routine metoprolol 0 2022- No 25mg 25 mg, Univ ers tartrate 12-29 Oral, ity of (LOPRESSOR) 22:45: 22:13 ONCE, 1 [place] tablet 25 00 :00 dose, On Medica l mg Sun Branch 12/29/22 at 1745, Routine NaCl 0.9% 0 Yes 1000mL at 125 Univ ers (NS) IV 6-23 mL/hr, IV ity of infusion 21:45: Infusion[place] 1,000 mL 00 CONTINUOUS Medic al , Starting Branch on Sun12/29/22 at 1645, Until Discontinu ed, Routine morpHINE (2 2022-0 2022- Yes 4mg 4 mg, Slow Univers mg/mL) 6-23 06-24 IV Push, ity of injection 4 21:35: 21:34 Q4HPRN, [place] mg 41 :41 Starting Medical on Fri Branch 12/29/22 at 1635, Until 12/30/22 at 1634, Routine, Pain (scale 7-10) HYDROcodone 0 2022- Yes 1{tbl} 1 tablet, Univers -acetaminop 12-29 Oral, ity of hen (NORCO 21:35: 21:34 Q6HPRN, [place] 5) 5-325 mg 34 :34 Starting Medi janet tablet 1 on Sun Branch tablet 12/29/22 at 1635, Until 12/31/22 at 1634, Routine, Pain (scale 4-6) acetaminoph Yes 650mg 650 mg, Un bry en 12-29 Oral, ity of (TYLENOL) 21:35: Q6HPRN, [place] tablet 650 26 Starting Medic al mg on Sun Branch 12/29/22 at 1635, Until Discontinu ed, Routine, Pain (scale 1-3), Temp > 38 C tiZANidine Yes 4mg 4 mg, Univer s (ZANAFLEX) 12-29 Oral, ity of tablet 4 mg 21:33: Q8HPRN, [place] 45 Starting Medical on Sun Branch 12/29/22 at 1633, Until Discontinu ed, Routine, Muscle Spasms acetaminoph 2022- No 1000mg 1,000 mg, Univers en ADULT 12-29 IV ity of (OFIRMEV) 20:15: 20:06 Infusion, [place] injection 00 :00 at 400 Medical 1,000 mg mL/hr Branch Administer over 15 Minutes, ONCE, 1 dose, On Sun12/29/22 at 1515, Routine
Indicatio n: Non-periop erative Patient
Approved by: Per Policy (NPO Status) NaCl 0.9% 2022- No 1000mL at 999 Uni vers (NS) bolus 12-2924 mL/hr, ity of infusion 20:00: 00:24 1,000 mL, [place] 1,000 mL 00 :00 IV Medical Infusion, Branch ONCE, 1 dose, On Sun12/29/22 at 1500, STAT haloperidol 2022- No 2.5mg 2.5 mg, U nivers lactate 12-29 Intravenou ity o f (HALDOL) 19:30: 19:32 s, ONCE, 1 [place] injection 00 :00 dose, On Medica l 2.5 mg Fri Branch 12/29/22 at 1430, STAT iopamidol 2022- No [id number] 75mL 75 mL, Univers (ISOVUE 12-29 Intravenou ity o f 370-500 mL) 16:59: 16:59 s, ONCE, 1 [place] injection 00 :00 dose, On Medica l 75 mL Fri Branch 12/29/22 at 1215, Routine acetaminoph 2022- No 1000mg 1,000 mg, Univers en 12-29 Oral, ity of (TYLENOL) 16:45: 18:45 ONCE, 1 [place] tablet 00 :00 dose, On Medical 1,000 mg Fri Branch 12/29/22 at 1145, VESNA ibuprofen 2022- No 400mg 400 mg, Uni vers (IBU) 12-29 Oral, ity of tablet 400 15:15: 15:23 ONCE, 1 [place] mg 00 :00 dose, On Medical Fri Branch 12/29/22 at 1015, VESNA proMETHazin 2022- No 25mg 25 mg, IV Univers e 12-29 Piggyback, ity of (PHENERGAN) 15:15: 15:21 ONCE, 1 [place] 25 mg in 00 :00 dose, On Medical NaCl 0.9% Fri Branch (NS) 50 mL 12/29/22 at IV 1015, VESNA piggyback nadoloL 40 2022-0 Yes [id number] 40mg Take 1 [place] mg tablet 6-05 tablet by ity o f 00:00: mouth in [place] 00 the Medical morning. Branch nadoloL 40 2022-0 Yes [id number] 40mg Take 1 [place] mg tablet 6-05 tablet by ity o f 00:00: mouth in [place] 00 the Medical morning. Branch nadoloL 40 2022-0 Yes [id number] 40mg Take 1 [place] mg tablet 6-05 tablet by ity o f 00:00: mouth in [place] 00 the Medical morning. Branch nadoloL 40 3-0 Yes [id number] 40mg Take 1 [place] mg tablet 6-05 tablet by ity o f 00:00: mouth in [place] 00 the Medical morning. Branch nadoloL 40 3-0 Yes [id number] 40mg Take 1 [place] mg tablet 6-05 tablet by ity o f 00:00: mouth in [place] 00 the Medical morning. Branch nadoloL 40 3-0 Yes [id number] 40mg Take 1 [place] mg tablet 6-05 tablet by ity o f 00:00: mouth in [place] 00 the Medical morning. Branch nadoloL 40 3-0 Yes [id number] 40mg Take 1 [place] mg tablet 6-05 tablet by ity o f 00:00: mouth in [place] 00 the Medical morning. Branch nadoloL 40 3-0 Yes [id number] 40mg Take 1 [place] mg tablet 6-05 tablet by ity o f 00:00: mouth in [place] 00 the Medical morning. Branch nadoloL 40 3-0 Yes [id number] 40mg Take 1 [place] mg tablet 6-05 tablet by ity o f 00:00: mouth in [place] the Medical morning. Branch nadoloL 40 3-0 Yes [id number] 40mg Take 1 [place] mg tablet 6-05 tablet by ity o f 00:00: mouth in [place] 00 the Medical morning. Branch nadoloL 40 3-0 Yes [id number] 40mg Take 1 [place] mg tablet 6-05 tablet by ity o f 00:00: mouth in [place] 00 the Medical morning. Branch nadoloL 40 3-0 Yes [id number] 40mg Take 1 [place] mg tablet 6-05 tablet by ity o f 00:00: mouth in [place] 00 the Medical morning. Branch nadoloL 40 2023-0 Yes [id number] 40mg Take 1 [place] mg tablet 6-05 tablet by ity o f 00:00: mouth in [place] 00 the Medical morning. Branch nadoloL 40 2023-0 Yes [id number] 40mg Take 1 [place] mg tablet 6-05 tablet by ity o f 00:00: mouth in [place] 00 the Medical morning. Branch nadoloL 40 2023-0 Yes [id number] 40mg Take 1 [place] mg tablet 6-05 tablet by ity o f 00:00: mouth in [place] 00 the Medical morning. Branch nadoloL 40 3-0 Yes [id number] 40mg Take 1 [place] mg tablet 6-05 tablet by ity o f 00:00: mouth in [place] 00 the Medical morning. Branch nadoloL 40 3-0 Yes [id number] 40mg Take 1 [place] mg tablet 6-05 tablet by ity o f 00:00: mouth in [place] 00 the Medical morning. Branch nadoloL 40 3-0 Yes [id number] 40mg Take 1 [place] mg tablet 6-05 tablet by ity o f 00:00: mouth in [place] 00 the Medical morning. Branch nadoloL 40 3-0 Yes [id number] 40mg Take 1 [place] mg tablet 6-05 tablet by ity o f 00:00: mouth in [place] 00 the Medical morning. Branch nadoloL 40 3-0 Yes [id number] 40mg Take 1 [place] mg tablet 6-05 tablet by ity o f 00:00: mouth in [place] the Medical morning. Branch nadoloL 40 3-0 Yes [id number] 40mg Take 1 [place] mg tablet 6-05 tablet by ity o f 00:00: mouth in [place] the Medical morning. Branch nadoloL 40 3-0 Yes [id number] 40mg Take 1 [place] mg tablet 6-05 tablet by ity o f 00:00: mouth in [place] the Medical morning. Branch nadoloL 40 3-0 Yes [id number] 40mg Take 1 [place] mg tablet 6-05 tablet by ity o f 00:00: mouth in [place] the Medical morning. Branch nadoloL 40 3-0 Yes [id number] 40mg Take 1 [place] mg tablet 6-05 tablet by ity o f 00:00: mouth in [place] 00 the Medical morning. Branch nadoloL 40 3-0 Yes [id number] 40mg Take 1 [place] mg tablet 6-05 tablet by ity o f 00:00: mouth in [place] 00 the Medical morning. Branch nadoloL 40 3-0 Yes [id number] 40mg Take 1 [place] mg tablet 6-05 tablet by ity o f 00:00: mouth in [place] 00 the Medical morning. Branch nadoloL 40 3-0 Yes [id number] 40mg Take 1 [place] mg tablet 6-05 tablet by ity o f 00:00: mouth in [place] 00 the Medical morning. Branch nadoloL 40 3-0 Yes [id number] 40mg Take 1 [place] mg tablet 6-05 tablet by ity o f 00:00: mouth in [place] the Medical morning. Branch nadoloL 40 3-0 Yes [id number] 40mg Take 1 [place] mg tablet 6-05 tablet by ity o f 00:00: mouth in [place] 00 the Medical morning. Branch nadoloL 40 3-0 Yes [id number] 40mg Take 1 [place] mg tablet 6-05 tablet by ity o f 00:00: mouth in [place] the Medical morning. Branch nadoloL 40 3-0 Yes [id number] 40mg Take 1 [place] mg tablet 6-05 tablet by ity o f 00:00: mouth in [place] the Medical morning. Branch nadoloL 40 3-0 Yes [id number] 40mg Take 1 [place] mg tablet 6-05 tablet by ity o f 00:00: mouth in [place] the Medical morning. Branch nadoloL 40 2022-0 Yes [id number] 40mg Take 1 [place] mg tablet 6-05 tablet by ity o f 00:00: mouth in [place] the Medical morning. Branch nadoloL 40 2022-0 Yes [id number] 40mg Take 1 [place] mg tablet 6-05 tablet by ity o f 00:00: mouth in [place] the Medical morning. Branch nadoloL 40 2022-0 Yes [id number] 40mg Take 1 [place] mg tablet 6-05 tablet by ity o f 00:00: mouth in [place] the Medical morning. Branch nadoloL 40 3-0 Yes [id number] 40mg Take 1 [place] mg tablet 6-05 tablet by ity o f 00:00: mouth in [place] the Medical morning. Branch nadoloL 40 3-0 Yes [id number] 40mg Take 1 [place] mg tablet 6-05 tablet by ity o f 00:00: mouth in [place] 00 the Medical morning. Branch nadoloL 40 3-0 Yes [id number] 40mg Take 1 [place] mg tablet 6-05 tablet by ity o f 00:00: mouth in [place] 00 the Medical morning. Branch nadoloL 40 3-0 Yes [id number] 40mg Take 1 [place] mg tablet 6-05 tablet by ity o f 00:00: mouth in [place] 00 the Medical morning. Branch nadoloL 40 2022-0 Yes [id number] 40mg Take 1 [place] mg tablet 6-05 tablet by ity o f 00:00: mouth in [place] the Medical morning. Branch nadoloL 40 2022-0 Yes [id number] 40mg Take 1 [place] mg tablet 6-05 tablet by ity o f 00:00: mouth in [place] the Medical morning. Branch nadoloL 40 2022-0 Yes [id number] 40mg Take 1 [place] mg tablet 6-05 tablet by ity o f 00:00: mouth in [place] the Medical morning. Branch nadoloL 40 3-0 Yes [id number] 40mg Take 1 [place] mg tablet 6-05 tablet by ity o f 00:00: mouth in [place] the Medical morning. Branch nadoloL 40 2022-0 Yes [id number] 40mg Take 1 [place] mg tablet 6-05 tablet by ity o f 00:00: mouth in [place] the Medical morning. Branch nadoloL 40 2022-0 Yes [id number] 40mg Take 1 [place] mg tablet 6-05 tablet by ity o f 00:00: mouth in [place] the Medical morning. Branch nadoloL 40 2022-0 Yes [id number] 40mg Take 1 [place] mg tablet 6-05 tablet by ity o f 00:00: mouth in [place] the Medical morning. Branch nadoloL 40 2022-0 Yes [id number] 40mg Take 1 [place] mg tablet 6-05 tablet by ity o f 00:00: mouth in [place] the Medical morning. Branch nadoloL 40 3-0 Yes [id number] 40mg Take 1 [place] mg tablet 6-05 tablet by ity o f 00:00: mouth in [place] the Medical morning. Branch nadoloL 40 3-0 Yes [id number] 40mg Take 1 [place] mg tablet 6-05 tablet by ity o f 00:00: mouth in [place] the Medical morning. Branch nadoloL 40 3-0 Yes [id number] 40mg Take 1 [place] mg tablet 6-05 tablet by ity o f 00:00: mouth in [place] the Medical morning. Branch nadoloL 40 3-0 Yes [id number] 40mg Take 1 [place] mg tablet 6-05 tablet by ity o f 00:00: mouth in [place] 00 the Medical morning. Branch nadoloL 40 3-0 Yes [id number] 40mg Take 1 [place] mg tablet 6-05 tablet by ity o f 00:00: mouth in [place] the Medical morning. Branch nadoloL 40 3-0 Yes [id number] 40mg Take 1 [place] mg tablet 6-05 tablet by ity o f 00:00: mouth in [place] 00 the Medical morning. Branch nadoloL 40 3-0 Yes [id number] 40mg Take 1 [place] mg tablet 6-05 tablet by ity o f 00:00: mouth in [place] the Medical morning. Branch nadoloL 40 3-0 Yes [id number] 40mg Take 1 [place] mg tablet 6-05 tablet by ity o f 00:00: mouth in [place] the Medical morning. Branch nadoloL 40 3-0 Yes [id number] 40mg Take 1 [place] mg tablet 6-05 tablet by ity o f 00:00: mouth in [place] the Medical morning. Branch nadoloL 40 2022-0 Yes [id number] 40mg Take 1 [place] mg tablet 6-05 tablet by ity o f 00:00: mouth in [place] the Medical morning. Branch nadoloL 40 3-0 Yes [id number] 40mg Take 1 [place] mg tablet 6-05 tablet by ity o f 00:00: mouth in [place] the Medical morning. Branch nadoloL 40 3-0 Yes [id number] 40mg Take 1 [place] mg tablet 6-05 tablet by ity o f 00:00: mouth in [place] the Medical morning. Branch nadoloL 40 3-0 Yes [id number] 40mg Take 1 [place] mg tablet 6-05 tablet by ity o f 00:00: mouth in [place] 00 the Medical morning. Branch nadoloL 40 3-0 Yes [id number] 40mg Take 1 [place] mg tablet 6-05 tablet by ity o f 00:00: mouth in [place] 00 the Medical morning. Branch nadoloL 40 3-0 Yes [id number] 40mg Take 1 [place] mg tablet 6-05 tablet by ity o f 00:00: mouth in [place] 00 the Medical morning. Branch nadoloL 40 3-0 Yes [id number] 40mg Take 1 [place] mg tablet 6-05 tablet by ity o f 00:00: mouth in [place] 00 the Medical morning. Branch nadoloL 40 2022-0 Yes [id number] 40mg Take 1 [place] mg tablet 6-05 tablet by ity o f 00:00: mouth in [place] 00 the Medical morning. Branch apixaban 2022-0 Yes [id number] 5mg Take 1 Univers (ELIQUIS) 5 6-01 tablet by ity of mg tablet 00:00: mouth in [facility] s the Medical morning Branch and 1 tablet in the evening. Indication s: history of deep vein thrombosis pramipexole 2022-0 Yes [id number] .25mg Take 1 [facility] 0.25 mg 6-01 tablet by ity of tablet 00:00: mouth in [place] the Medical morning Branch and 1 tablet in the evening. For restless leg syndrome lidocaine-p 2022-0 Yes [id number] Rub over Univers rilocaine 6-01 port site ity o f 2.5-2.5 % 00:00: before [place] cream 00 accessing. Medical Branch levothyroxi 2022-0 Yes [id number] 100ug Take 1 [facility] ne 100 mcg 6-01 tablet by ity of tablet 00:00: mouth [place] 00 every Medical morning. Branch benzonatate 2022-0 Yes [id number] Take 1-2 Univers (TESSALON 6-01 capsules ity of PERLES) 100 00:00: three [place] mg capsule 00 times a Medica l day as Branch needed for cough. apixaban 2022-0 Yes [id number] 5mg Take 1 Univers (ELIQUIS) 5 6-01 tablet by ity of mg tablet 00:00: mouth in [place] [facility] 00 the Medical morning Branch and 1 tablet in the evening. Indication s: history of deep vein thrombosis pramipexole 2022-0 Yes [id number] .25mg Take 1 [facility] 0.25 mg 6-01 tablet by ity of tablet 00:00: mouth in [place] the Medical morning Branch and 1 tablet in the evening. For restless leg syndrome lidocaine-p 2022-0 Yes [id number] Rub over [facility] rilocaine 6-01 port site ity o f 2.5-2.5 % 00:00: before [place] cream 00 accessing. Medical Branch levothyroxi 2022-0 Yes [id number] 100ug Take 1 [facility] ne 100 mcg 6-01 tablet by ity of tablet 00:00: mouth [place] 00 every Medical morning. Branch benzonatate 2022-0 Yes [id number] Take 1-2 Univers (TESSALON 6-01 capsules ity of PERLES) 100 00:00: three [place] mg capsule 00 times a Medica l day as Branch needed for cough. apixaban 2022-0 Yes [id number] 5mg Take 1 [facility] (ELIQUIS) 5 6-01 tablet by ity of mg tablet 00:00: mouth [place] 00 the Medical morning Branch and 1 tablet in the evening. Indication s: history of deep vein thrombosis pramipexole 2022- Yes [id number] .25mg Take 1 [facility] 0.25 mg 6-01 tablet by ity of tablet 00:00: mouth in [place] 00 the Medical morning Branch and 1 tablet in the evening. For restless leg syndrome lidocaine-p 2022-0 Yes [id number] Rub over [facility] rilocaine 6-01 port site ity o f 2.5-2.5 % 00:00: before [place] cream 00 accessing. Medical Branch levothyroxi 2022-0 Yes [id number] 100ug Take 1 [facility] ne 100 mcg 6-01 tablet by ity of tablet 00:00: mouth [place] 00 every Medical morning. Branch benzonatate Yes [id number] Take 1-2 Univers (TESSALON 6-01 capsules ity of PERLES) 100 00:00: three [place] mg capsule 00 times a Medica l day as Branch needed for cough. apixaban 2022-0 Yes [id number] 5mg Take 1 [facility] (ELIQUIS) 5 6-01 tablet by ity of mg tablet 00:00: mouth [place] 00 the Medical morning Branch and 1 tablet in the evening. Indication s: history of deep vein thrombosis pramipexole 2022-0 Yes [id number] .25mg Take 1 [facility] 0.25 mg 6-01 tablet by ity of tablet 00:00: mouth in [place] 00 the Medical morning Branch and 1 tablet in the evening. For restless leg syndrome lidocaine-p 2022-0 Yes [id number] Rub over [facility] rilocaine 6-01 port site ity o f 2.5-2.5 % 00:00: before [place] cream 00 accessing. Medical Branch levothyroxi 2022-0 Yes [id number] 100ug Take 1 [facility] ne 100 mcg 6-01 tablet by ity of tablet 00:00: mouth [place] 00 every Medical morning. Branch benzonatate Yes [id number] Take 1-2 Univers (TESSALON 6-01 capsules ity of PERLES) 100 00:00: three [place] mg capsule 00 times a Medica l day as Branch needed for cough. apixaban 0 Yes [id number] 5mg Take 1 [facility] (ELIQUIS) 5 6-01 tablet by ity of mg tablet 00:00: [place] 00 the Medical morning Branch and 1 tablet in the evening. Indication s: history of deep vein thrombosis pramipexole Yes [id number] .25mg Take 1 [facility] 0.25 mg 6-01 tablet by ity of tablet 00:00: mouth in [place] 00 the Medical morning Branch and 1 tablet in the evening. For restless leg syndrome lidocaine-p 2022- Yes [id number] Rub over [facility] rilocaine 6-01 port site ity o f 2.5-2.5 % 00:00: before [place] cream 00 accessing. Medical Branch levothyroxi 2022- Yes [id number] 100ug Take 1 [facility] ne 100 mcg 6-01 tablet by ity of tablet 00:00: mouth [place] 00 every Medical morning. Branch benzonatate 2022- Yes [id number] Take 1-2 Univers (TESSALON 6-01 capsules ity of PERLES) 100 00:00: three [place] mg capsule 00 times a Medica l day as Branch needed for cough. apixaban Yes [id number] 5mg Take 1 [facility] (ELIQUIS) 5 6-01 tablet by ity of mg tablet 00:00: mouth [place] 00 the Medical morning Branch and 1 tablet in the evening. Indication s: history of deep vein thrombosis pramipexole 2022- Yes [id number] .25mg Take 1 [facility] 0.25 mg 6-01 tablet by ity of tablet 00:00: mouth in [place] 00 the Medical morning Branch and 1 tablet in the evening. For restless leg syndrome lidocaine-p 2022-0 Yes [id number] Rub over [facility] rilocaine 6-01 port site ity o f 2.5-2.5 % 00:00: before [place] cream 00 accessing. Medical Branch levothyroxi Yes [id number] 100ug Take 1 [facility] ne 100 mcg 6-01 tablet by ity of tablet 00:00: mouth [place] 00 every Medical morning. Branch benzonatate Yes [id number] Take 1-2 Univers (TESSALON 6-01 capsules ity of PERLES) 100 00:00: three [place] mg capsule 00 times a Medica l day as Branch needed for cough. apixaban Yes [id number] 5mg Take 1 Univers (ELIQUIS) 5 6-01 tablet by ity of mg tablet 00:00: mouth [place] 00 the Medical morning Branch and 1 tablet in the evening. Indication s: history of deep vein thrombosis pramipexole Yes [id number] .25mg Take 1 [facility] 0.25 mg 6-01 tablet by ity of tablet 00:00: mouth in [place] 00 the Medical morning Branch and 1 tablet in the evening. For restless leg syndrome lidocaine-p 2022-0 Yes [id number] Rub over [facility] rilocaine 6-01 port site ity o f 2.5-2.5 % 00:00: before [place] cream 00 accessing. Medical Branch levothyroxi Yes [id number] 100ug Take 1 [facility] ne 100 mcg 6-01 tablet by ity of tablet 00:00: mouth [place] 00 every Medical morning. Branch benzonatate Yes [id number] Take 1-2 Univers (TESSALON 6-01 capsules ity of PERLES) 100 00:00: three [place] mg capsule 00 times a Medica l day as Branch needed for cough. apixaban 0 Yes [id number] 5mg Take 1 [facility] (ELIQUIS) 5 6-01 tablet by ity of mg tablet 00:00: mouth [place] 00 the Medical morning Branch and 1 tablet in the evening. Indication s: history of deep vein thrombosis pramipexole 2022-0 Yes [id number] .25mg Take 1 [facility] 0.25 mg 6-01 tablet by ity of tablet 00:00: mouth in [place] 00 the Medical morning Branch and 1 tablet in the evening. For restless leg syndrome lidocaine-p 2022-0 Yes [id number] Rub over [facility] rilocaine 6-01 port site ity o f 2.5-2.5 % 00:00: before [place] cream 00 accessing. Medical Branch levothyroxi Yes [id number] 100ug Take 1 [facility] ne 100 mcg 6-01 tablet by ity of tablet 00:00: mouth [place] 00 every Medical morning. Branch benzonatate Yes [id number] Take 1-2 [facility] (TESSALON 6-01 capsules ity of PERLES) 100 00:00: three [place] mg capsule 00 times a Medica l day as Branch needed for cough. apixaban Yes [id number] 5mg Take 1 [facility] (ELIQUIS) 5 6-01 tablet by ity of mg tablet 00:00: mouth [place] 00 the Medical morning Branch and 1 tablet in the evening. Indication s: history of deep vein thrombosis pramipexole Yes [id number] .25mg Take 1 [facility] 0.25 mg 6-01 tablet by ity of tablet 00:00: mouth in [place] 00 the Medical morning Branch and 1 tablet in the evening. For restless leg syndrome lidocaine-p 2022- Yes [id number] Rub over [facility] rilocaine 6-01 port site ity o f 2.5-2.5 % 00:00: before [place] cream 00 accessing. Medical Branch levothyroxi Yes [id number] 100ug Take 1 [facility] ne 100 mcg 6-01 tablet by ity of tablet 00:00: mouth [place] 00 every Medical morning. Branch apixaban Yes [id number] 5mg Take 1 [facility] (ELIQUIS) 5 6-01 tablet by ity of mg tablet 00:00: mouth [place] 00 the Medical morning Branch and 1 tablet in the evening. Indication s: history of deep vein thrombosis pramipexole 2022- Yes [id number] .25mg Take 1 [facility] 0.25 mg 6-01 tablet by ity of tablet 00:00: mouth in [place] 00 the Medical morning Branch and 1 tablet in the evening. For restless leg syndrome lidocaine-p 2022- Yes [id number] Rub over [facility] rilocaine 6-01 port site ity o f 2.5-2.5 % 00:00: before [place] cream 00 accessing. Medical Branch levothyroxi Yes [id number] 100ug Take 1 [facility] ne 100 mcg 6-01 tablet by ity of tablet 00:00: mouth [place] 00 every Medical morning. Branch apixaban 2022-0 Yes [id number] 5mg Take 1 [facility] (ELIQUIS) 5 6-01 tablet by ity of mg tablet 00:00: mouth [place] 00 the Medical morning Branch and 1 tablet in the evening. Indication s: history of deep vein thrombosis pramipexole 2022-0 Yes [id number] .25mg Take 1 [facility] 0.25 mg 6-01 tablet by ity of tablet 00:00: mouth in [place] 00 the Medical morning Branch and 1 tablet in the evening. For restless leg syndrome lidocaine-p 2022-0 Yes [id number] Rub over [facility] rilocaine 6-01 port site ity o f 2.5-2.5 % 00:00: before [place] cream 00 accessing. Medical Branch levothyroxi 2022-0 Yes [id number] 100ug Take 1 [facility] ne 100 mcg 6-01 tablet by ity of tablet 00:00: mouth [place] 00 every Medical morning. Branch apixaban 2022-0 Yes [id number] 5mg Take 1 [facility] (ELIQUIS) 5 6-01 tablet by ity of mg tablet 00:00: mouth [place] 00 the Medical morning Branch and 1 tablet in the evening. Indication s: history of deep vein thrombosis pramipexole 2022- Yes [id number] .25mg Take 1 [facility] 0.25 mg 6-01 tablet by ity of tablet 00:00: mouth in [place] the Medical morning Branch and 1 tablet in the evening. For restless leg syndrome lidocaine-p 2022-0 Yes [id number] Rub over [facility] rilocaine 6-01 port site ity o f 2.5-2.5 % 00:00: before [place] cream 00 accessing. Medical Branch levothyroxi 2022-0 Yes [id number] 100ug Take 1 [facility] ne 100 mcg 6-01 tablet by ity of tablet 00:00: mouth [place] 00 every Medical morning. Branch apixaban 2022-0 Yes [id number] 5mg Take 1 [facility] (ELIQUIS) 5 6-01 tablet by ity of mg tablet 00:00: mouth [place] 00 the Medical morning Branch and 1 tablet in the evening. Indication s: history of deep vein thrombosis pramipexole 2022-0 Yes [id number] .25mg Take 1 [facility] 0.[facility] mg 6-01 tablet by [facility] tablet 00:00: mouth in [place] 00 the Medical morning Branch and 1 tablet in the evening. For restless leg syndrome lidocaine-p 2022-0 Yes [id number] Rub over [facility] rilocaine 6-01 port site [facility] o f 2.5-2.5 % 00:00: before [place] cream 00 accessing. Medical Branch levothyroxi 2022-0 Yes [id number] 100ug Take 1 [facility] ne 100 mcg 6-01 tablet by [facility] of tablet 00:00: mouth [place] 00 every Medical morning. Branch apixaban 2022-0 Yes [id number] 5mg Take 1 [facility] ([facility]QU[facility]) 5 6-01 tablet by [facility] mg tablet 00:00: mouth in [place] 00 the Medical morning Branch and 1 tablet in the evening. Indication s: history of deep vein thrombosis pramipexole 2022-0 Yes [id number] .25mg Take 1 [facility] 0.25 mg 6-01 tablet by [facility] of tablet 00:00: mouth in [place] the Medical morning Branch and 1 tablet in the evening. For restless leg syndrome lidocaine-p 2022-0 Yes [id number] Rub over [facility] rilocaine 6-01 port site [facility] o f 2.5-2.5 % 00:00: before [place] cream 00 accessing. Medical Branch levothyroxi 2022-0 Yes [id number] 100ug Take 1 [facility] ne 100 mcg 6-01 tablet by [facility] of tablet 00:00: mouth [place] 00 every Medical morning. Branch apixaban 2022-0 Yes [id number] 5mg Take 1 [facility] ([facility]QU[facility]) 5 6-01 tablet by [facility] mg tablet 00:00: mouth in [place] 00 the Medical morning Branch and 1 tablet in the evening. Indication s: history of deep vein thrombosis pramipexole 2022-0 Yes [id number] .25mg Take 1 [facility] 0.25 mg 6-01 tablet by [facility] of tablet 00:00: mouth in [place] the Medical morning Branch and 1 tablet in the evening. For restless leg syndrome lidocaine-p 3-0 Yes [id number] Rub over [facility] rilocaine 6-01 port site [facility] o f 2.5-2.5 % 00:00: before [place] cream 00 accessing. Medical Branch levothyroxi 2022-0 Yes [id number] 100ug Take 1 [facility] ne 100 mcg 6-01 tablet by [facility] of tablet 00:00: mouth every Medical morning. Branch apixaban 2022-0 Yes 5523 5mg Take 1 [facility] ([facility]) 5 6-01 tablet by [facility] mg tablet 00:00: mouth in [place] the Medical morning Branch and 1 tablet in the evening. Indication s: history of deep vein thrombosis pramipexole 2022-0 Yes [id number] .25mg Take 1 [facility] 0.25 mg 6-01 tablet by [facility] of tablet 00:00: mouth in 00 the Medical morning Branch and 1 tablet in the evening. For restless leg syndrome lidocaine-p 3-0 Yes [id number] Rub over [facility] rilocaine 6-01 port site it[facility] o f 2.5-2.5 % 00:00: before [place] cream 00 accessing. Medical Branch levothyroxi 2022-0 Yes [id number] 100ug Take 1 [facility] ne 100 mcg 6-01 tablet by [facility] of tablet 00:00: mouth every Medical morning. Branch apixaban 2022-0 Yes 5523 5mg Take 1 [facility] ([facility]) 5 6-01 tablet by [facility] mg tablet 00:00: mouth in the Medical morning Branch and 1 tablet in the evening. Indication s: history of deep vein thrombosis pramipexole 2022-0 Yes [id number] .25mg Take 1 [facility] 0.25 mg 6-01 tablet by [facility] of tablet 00:00: mouth in the Medical morning Branch and 1 tablet in the evening. For restless leg syndrome lidocaine-p 3-0 Yes [id number] Rub over [facility] rilocaine 6-01 port site it[facility] o f 2.5-2.5 % 00:00: before [place] cream 00 accessing. Medical Branch levothyroxi 2022-0 Yes [id number] 100ug Take 1 [facility] ne 100 mcg 6-01 tablet by [facility] of tablet 00:00: mouth [place] 00 every Medical morning. Branch apixaban 3-0 Yes 5523 5mg Take 1 [facility] ([facility]QU[facility]) 5 6-01 tablet by [facility] mg tablet 00:00: mouth in [place] 00 the Medical morning Branch and 1 tablet in the evening. Indication s: history of deep vein thrombosis pramipexole 3-0 Yes [id number] .25mg Take 1 [facility] 0.25 mg 6-01 tablet by [facility] of tablet 00:00: mouth in [place] 00 the Medical morning Branch and 1 tablet in the evening. For restless leg syndrome lidocaine-p 3-0 Yes [id number] Rub over [facility] rilocaine 6-01 port site it[facility] o f 2.5-2.5 % 00:00: before [place] cream 00 accessing. Medical Branch levothyroxi 2022-0 Yes [id number] 100ug Take 1 [facility] ne 100 mcg 6-01 tablet by [facility] of tablet 00:00: mouth [place] 00 every Medical morning. Branch apixaban 2022-0 Yes 5523 5mg Take 1 [facility] ([facility]) 5 6-01 tablet by [facility] mg tablet 00:00: mouth in [place] 00 the Medical morning Branch and 1 tablet in the evening. Indication s: history of deep vein thrombosis pramipexole 2022-0 Yes [id number] .25mg Take 1 [facility] 0.25 mg 6-01 tablet by [facility] of tablet 00:00: mouth in [place] 00 the Medical morning Branch and 1 tablet in the evening. For restless leg syndrome lidocaine-p 3-0 Yes [id number] Rub over [facility] rilocaine 6-01 port site it[facility] o f 2.5-2.5 % 00:00: before [place] cream 00 accessing. Medical Branch levothyroxi 3-0 Yes [id number] 100ug Take 1 [facility] ne 100 mcg 6-01 tablet by [facility] of tablet 00:00: mouth [place] 00 every Medical morning. Branch apixaban 3-0 Yes 5523 5mg Take 1 [facility] ([facility]QU[facility]) 5 6-01 tablet by [facility] mg tablet 00:00: mouth in [place] 00 the Medical morning Branch and 1 tablet in the evening. Indication s: history of deep vein thrombosis pramipexole 2022-0 Yes [id number] .25mg Take 1 [facility] 0.25 mg 6-01 tablet by [facility] of tablet 00:00: mouth in [place] 00 the Medical morning Branch and 1 tablet in the evening. For restless leg syndrome lidocaine-p 3-0 Yes [id number] Rub over [facility] rilocaine 6-01 port site it[facility] o f 2.5-2.5 % 00:00: before [place] cream 00 accessing. Medical Branch levothyroxi 2022-0 Yes [id number] 100ug Take 1 [facility] ne 100 mcg 6-01 tablet by [facility] of tablet 00:00: mouth [place] 00 every Medical morning. Branch apixaban 2022-0 Yes 5523 5mg Take 1 [facility] ([facility]) 5 6-01 tablet by [facility] mg tablet 00:00: mouth in [place] 00 the Medical morning Branch and 1 tablet in the evening. Indication s: history of deep vein thrombosis pramipexole 2022-0 Yes [id number] .25mg Take 1 [facility] 0.25 mg 6-01 tablet by [facility] of tablet 00:00: mouth in [place] 00 the Medical morning Branch and 1 tablet in the evening. For restless leg syndrome lidocaine-p 2022-0 Yes [id number] Rub over [facility] rilocaine 6-01 port site it[facility] o f 2.5-2.5 % 00:00: before [place] cream 00 accessing. Medical Branch levothyroxi 2022-0 Yes [id number] 100ug Take 1 [facility] ne 100 mcg 6-01 tablet by [facility] of tablet 00:00: mouth [place] 00 every Medical morning. Branch apixaban 2022-0 Yes 5523 5mg Take 1 [facility] ([facility]) 5 6-01 tablet by [facility] mg tablet 00:00: mouth [place] 00 the Medical morning Branch and 1 tablet in the evening. Indication s: history of deep vein thrombosis pramipexole 2022-0 Yes [id number] .25mg Take 1 [facility] 0.25 mg 6-01 tablet by [facility] of tablet 00:00: mouth in [place] 00 the Medical morning Branch and 1 tablet in the evening. For restless leg syndrome lidocaine-p 3-0 Yes [id number] Rub over [facility] rilocaine 6-01 port site it[facility] o f 2.5-2.5 % 00:00: before [place] cream 00 accessing. Medical Branch levothyroxi 2022-0 Yes [id number] 100ug Take 1 [facility] ne 100 mcg 6-01 tablet by [facility] of tablet 00:00: mouth [place] 00 every Medical morning. Branch apixaban 2022-0 Yes 5523 5mg Take 1 [facility] ([facility]) 5 6-01 tablet by [facility] mg tablet 00:00: mouth in [place] 00 the Medical morning Branch and 1 tablet in the evening. Indication s: history of deep vein thrombosis pramipexole 2023-0 Yes [id number] .25mg Take 1 [facility] 0.25 mg 6-01 tablet by [facility] of tablet 00:00: mouth in [place] 00 the Medical morning Branch and 1 tablet in the evening. For restless leg syndrome lidocaine-p 2023-0 Yes [id number] Rub over [facility] rilocaine 6-01 port site it[facility] o f 2.5-2.5 % 00:00: before [place] cream 00 accessing. Medical Branch levothyroxi 2023-0 Yes [id number] 100ug Take 1 [facility] ne 100 mcg 6-01 tablet by [facility] of tablet 00:00: mouth [place] 00 every Medical morning. Branch apixaban 3-0 Yes 5523 5mg Take 1 [facility] ([facility]QU[facility]) 5 6-01 tablet by [facility] of mg tablet 00:00: mouth in [place] [facility] 00 the Medical morning Branch and 1 tablet in the evening. Indication s: history of deep vein thrombosis pramipexole 3-0 Yes [id number] .25mg Take 1 [facility] 0.25 mg 6-01 tablet by it[facility] of tablet 00:00: mouth in [place] the Medical morning Branch and 1 tablet in the evening. For restless leg syndrome lidocaine-p 2023-0 Yes [id number] Rub over [facility] rilocaine 6-01 port site ity o f 2.5-2.5 % 00:00: before [place] cream 00 accessing. Medical Branch levothyroxi 2023-0 Yes [id number] 100ug Take 1 [facility] ne 100 mcg 6-01 tablet by [facility] of tablet 00:00: mouth [place] 00 every Medical morning. Branch apixaban 2023-0 Yes 5523 5mg Take 1 [facility] ([facility]) 5 6-01 tablet [facility] and 1 tablet in the evening. Indication s: history of deep vein thrombosis pramipexole 2023-0 Yes [id number] .25mg Take 1 [facility] 0.25 mg 6-01 tablet by [facility] of tablet 00:00: mouth in [place] 00 the Medical morning Branch and 1 tablet in the evening. For restless leg syndrome lidocaine-p 2023-0 Yes [id number] Rub over [facility] rilocaine 6-01 port site it[facility] o f 2.5-2.5 % 00:00: before [place] cream 00 accessing. Medical Branch levothyroxi 2022-0 Yes [id number] 100ug Take 1 [facility] ne 100 mcg 6-01 tablet by it[facility] of tablet 00:00: mouth [place] 00 every Medical morning. Branch apixaban 2022-0 Yes 5523 5mg Take 1 [facility] ([facility]QU[facility]) 5 6-01 tablet by [facility] of mg tablet 00:00: mouth in [place] 00 the Medical morning Branch and 1 tablet in the evening. Indication s: history of deep vein thrombosis pramipexole 2022- Yes [id number] .25mg Take 1 [facility] 0.25 mg 6-01 tablet by [facility] of tablet 00:00: mouth in [place] 00 the Medical morning Branch and 1 tablet in the evening. For restless leg syndrome lidocaine-p 2022-0 Yes [id number] Rub over [facility] rilocaine 6-01 port site ity o f 2.5-2.5 % 00:00: before [place] cream 00 accessing. Medical Branch levothyroxi 2022- Yes [id number] 100ug Take 1 [facility] ne 100 mcg 6-01 tablet by [facility] of tablet 00:00: mouth [place] 00 every Medical morning. Branch apixaban 2022-0 Yes [id number] 5mg Take 1 [facility] ([facility]QU[facility]) 5 6-01 tablet by [facility] of mg tablet 00:00: mouth in [place] 00 the Medical morning Branch and 1 tablet in the evening. Indication s: history of deep vein thrombosis pramipexole 2022-0 Yes [id number] .25mg Take 1 [facility] 0.25 mg 6-01 tablet by [facility] of tablet 00:00: mouth in [place] 00 the Medical morning Branch and 1 tablet in the evening. For restless leg syndrome lidocaine-p 2022-0 Yes [id number] Rub over [facility] rilocaine 6-01 port site ity o f 2.5-2.5 % 00:00: before [place] cream 00 accessing. Medical Branch levothyroxi 2022-0 Yes [id number] 100ug Take 1 [facility] ne 100 mcg 6-01 tablet by it[facility] of tablet 00:00: mouth [place] 00 every Medical morning. Branch apixaban 2022-0 Yes [id number] 5mg Take 1 [facility] (EL[facility]QU[facility]) 5 6-01 tablet by [facility] of mg tablet 00:00: mouth in [place] 00 the Medical morning Branch and 1 tablet in the evening. Indication s: history of deep vein thrombosis pramipexole 2022-0 Yes [id number] .25mg Take 1 [facility] 0.25 mg 6-01 tablet by ity of tablet 00:00: mouth in [place] 00 the Medical morning Branch and 1 tablet in the evening. For restless leg syndrome lidocaine-p 3-0 Yes [id number] Rub over [facility] rilocaine 6-01 port site ity o f 2.5-2.5 % 00:00: before [place] cream 00 accessing. Medical Branch levothyroxi 2022-0 Yes [id number] 100ug Take 1 [facility] ne 100 mcg 6-01 tablet by [facility] of tablet 00:00: mouth [place] 00 every Medical morning. Branch apixaban 2022-0 Yes [id number] 5mg Take 1 [facility] ([facility]QU[facility]) 5 6-01 tablet by [facility] tablet [facility] and 1 tablet in the evening. Indication s: history of deep vein thrombosis pramipexole 2022-0 Yes [id number] .25mg Take 1 [facility] 0.25 mg 6-01 tablet by it[facility] of tablet 00:00: mouth in [place] the Medical morning Branch and 1 tablet in the evening. For restless leg syndrome lidocaine-p 3-0 Yes [id number] Rub over [facility] rilocaine 6-01 port site ity o f 2.5-2.5 % 00:00: before [place] cream 00 accessing. Medical Branch levothyroxi 2022-0 Yes [id number] 100ug Take 1 [facility] ne 100 mcg 6-01 tablet by it[facility] of tablet 00:00: mouth [place] 00 every Medical morning. Branch apixaban 2022-0 Yes [id number] 5mg Take 1 [facility] (EL[facility]QUIS) 5 6-01 tablet by [facility] of mg tablet 00:00: mouth in [place] 00 the Medical morning Branch and 1 tablet in the evening. Indication s: history of deep vein thrombosis pramipexole 2022-0 Yes [id number] .25mg Take 1 [facility] 0.25 mg 6-01 tablet by it[facility] of tablet 00:00: mouth in [place] 00 the Medical morning Branch and 1 tablet in the evening. For restless leg syndrome lidocaine-p 3-0 Yes [id number] Rub over [facility] rilocaine 6-01 port site ity o f 2.5-2.5 % 00:00: before [place] cream 00 accessing. Medical Branch levothyroxi 2022-0 Yes [id number] 100ug Take 1 [facility] ne 100 mcg 6-01 tablet by [facility] of tablet 00:00: mouth [place] 00 every Medical morning. Branch apixaban 2022-0 Yes [id number] 5mg Take 1 [facility] ([facility]QU[facility]) 5 6-01 tablet by [facility] of mg tablet 00:00: mouth in [place] 00 the Medical morning Branch and 1 tablet in the evening. Indication s: history of deep vein thrombosis pramipexole 2022-0 Yes [id number] .25mg Take 1 [facility] 0.25 mg 6-01 tablet by it[facility] of tablet 00:00: mouth in [place] 00 the Medical morning Branch and 1 tablet in the evening. For restless leg syndrome lidocaine-p 2022-0 Yes [id number] Rub over [facility] rilocaine 6-01 port site ity o f 2.5-2.5 % 00:00: before [place] cream 00 accessing. Medical Branch levothyroxi 2022-0 Yes [id number] 100ug Take 1 [facility] ne 100 mcg 6-01 tablet by it[facility] of tablet 00:00: mouth [place] 00 every Medical morning. Branch apixaban 2022-0 Yes [id number] 5mg Take 1 [facility] ([facility]QUIS) 5 6-01 tablet by [facility] tablet [facility] and 1 tablet in the evening. Indication s: history of deep vein thrombosis pramipexole 2022-0 Yes [id number] .25mg Take 1 [facility] 0.25 mg 6-01 tablet by ity of tablet 00:00: mouth in [place] 00 the Medical morning Branch and 1 tablet in the evening. For restless leg syndrome lidocaine-p 3-0 Yes [id number] Rub over [facility] rilocaine 6-01 port site ity o f 2.5-2.5 % 00:00: before [place] cream 00 accessing. Medical Branch levothyroxi 2022-0 Yes [id number] 100ug Take 1 [facility] ne 100 mcg 6-01 tablet by ity of tablet 00:00: mouth [place] 00 every Medical morning. Branch apixaban 3-0 Yes [id number] 5mg Take 1 [facility] (EL[facility]QUIS) 5 6-01 tablet by [facility] of mg tablet 00:00: mouth in [place] 00 the Medical morning Branch and 1 tablet in the evening. Indication s: history of deep vein thrombosis pramipexole 2022-0 Yes [id number] .25mg Take 1 [facility] 0.25 mg 6-01 tablet by ity of tablet 00:00: mouth in [place] 00 the Medical morning Branch and 1 tablet in the evening. For restless leg syndrome lidocaine-p 3-0 Yes [id number] Rub over [facility] rilocaine 6-01 port site ity o f 2.5-2.5 % 00:00: before [place] cream 00 accessing. Medical Branch levothyroxi 2022-0 Yes [id number] 100ug Take 1 [facility] ne 100 mcg 6-01 tablet by it[facility] of tablet 00:00: mouth [place] 00 every Medical morning. Branch apixaban 2022-0 Yes [id number] 5mg Take 1 [facility] (ELIQUIS) 5 6-01 tablet by [facility] of mg tablet 00:00: mouth in [place] 00 the Medical morning Branch and 1 tablet in the evening. Indication s: history of deep vein thrombosis pramipexole 2022-0 Yes [id number] .25mg Take 1 [facility] 0.25 mg 6-01 tablet by ity of tablet 00:00: mouth in [place] 00 the Medical morning Branch and 1 tablet in the evening. For restless leg syndrome lidocaine-p 3-0 Yes [id number] Rub over [facility] rilocaine 6-01 port site ity o f 2.5-2.5 % 00:00: before [place] cream 00 accessing. Medical Branch levothyroxi 3-0 Yes [id number] 100ug Take 1 [facility] ne 100 mcg 6-01 tablet by ity of tablet 00:00: mouth [place] 00 every Medical morning. Branch apixaban 3-0 Yes [id number] 5mg Take 1 [facility] ([facility]QUIS) 5 6-01 tablet by ity of mg tablet 00:00: mouth in [place] 00 the Medical morning Branch and 1 tablet in the evening. Indication s: history of deep vein thrombosis pramipexole 2022-0 Yes [id number] .25mg Take 1 [facility] 0.25 mg 6-01 tablet by ity of tablet 00:00: mouth in [place] 00 the Medical morning Branch and 1 tablet in the evening. For restless leg syndrome lidocaine-p 3-0 Yes [id number] Rub over [facility] rilocaine 6-01 port site ity o f 2.5-2.5 % 00:00: before [place] cream 00 accessing. Medical Branch levothyroxi 2022-0 Yes [id number] 100ug Take 1 [facility] ne 100 mcg 6-01 tablet by ity of tablet 00:00: mouth [place] 00 every Medical morning. Branch apixaban 2022-0 Yes [id number] 5mg Take 1 [facility] (ELIQUIS) 5 6-01 tablet by [facility]y of mg tablet 00:00: mouth in [place] 00 the Medical morning Branch and 1 tablet in the evening. Indication s: history of deep vein thrombosis pramipexole 2022-0 Yes [id number] .25mg Take 1 [facility] 0.25 mg 6-01 tablet by ity of tablet 00:00: mouth in [place] the Medical morning Branch and 1 tablet in the evening. For restless leg syndrome lidocaine-p 2022-0 Yes [id number] Rub over [facility] rilocaine 6-01 port site ity o f 2.5-2.5 % 00:00: before [place] cream 00 accessing. Medical Branch levothyroxi 2022-0 Yes [id number] 100ug Take 1 [facility] ne 100 mcg 6-01 tablet by ity of tablet 00:00: mouth [place] 00 every Medical morning. Branch apixaban 2022-0 Yes [id number] 5mg Take 1 [facility] (ELIQUIS) 5 6-01 tablet by [facility] of mg tablet 00:00: mouth in [place] 00 the Medical morning Branch and 1 tablet in the evening. Indication s: history of deep vein thrombosis pramipexole 2022-0 Yes [id number] .25mg Take 1 [facility] 0.25 mg 6-01 tablet by ity of tablet 00:00: mouth in [place] 00 the Medical morning Branch and 1 tablet in the evening. For restless leg syndrome lidocaine-p 3-0 Yes [id number] Rub over [facility] rilocaine 6-01 port site ity o f 2.5-2.5 % 00:00: before [place] cream 00 accessing. Medical Branch levothyroxi 2023-0 Yes [id number] 100ug Take 1 [facility] ne 100 mcg 6-01 tablet by ity of tablet 00:00: mouth [place] 00 every Medical morning. Branch apixaban 2022-0 Yes [id number] 5mg Take 1 [facility] (ELIQUIS) 5 6-01 tablet by [facility] of mg tablet 00:00: mouth in [place] 00 the Medical morning Branch and 1 tablet in the evening. Indication s: history of deep vein thrombosis pramipexole 2022-0 Yes [id number] .25mg Take 1 [facility] 0.25 mg 6-01 tablet by ity of tablet 00:00: mouth in [place] 00 the Medical morning Branch and 1 tablet in the evening. For restless leg syndrome lidocaine-p 3-0 Yes [id number] Rub over [facility] rilocaine 6-01 port site ity o f 2.5-2.5 % 00:00: before [place] cream 00 accessing. Medical Branch levothyroxi 2022-0 Yes [id number] 100ug Take 1 [facility] ne 100 mcg 6-01 tablet by ity of tablet 00:00: mouth [place] 00 every Medical morning. Branch apixaban 2022-0 Yes [id number] 5mg Take 1 [facility] (ELIQUIS) 5 6-01 tablet by ity of mg tablet 00:00: mouth in [place] 00 the Medical morning Branch and 1 tablet in the evening. Indication s: history of deep vein thrombosis pramipexole 2022-0 Yes [id number] .25mg Take 1 [facility] 0.25 mg 6-01 tablet by ity of tablet 00:00: mouth in [place] 00 the Medical morning Branch and 1 tablet in the evening. For restless leg syndrome lidocaine-p 3-0 Yes [id number] Rub over [facility] rilocaine 6-01 port site ity o f 2.5-2.5 % 00:00: before [place] cream 00 accessing. Medical Branch levothyroxi 2022-0 Yes [id number] 100ug Take 1 [facility] ne 100 mcg 6-01 tablet by ity of tablet 00:00: mouth [place] 00 every Medical morning. Branch apixaban 2022-0 Yes [id number] 5mg Take 1 [facility] (ELIQUIS) 5 6-01 tablet by [facility] of mg tablet 00:00: mouth in [place] 00 the Medical morning Branch and 1 tablet in the evening. Indication s: history of deep vein thrombosis pramipexole 2022-0 Yes [id number] .25mg Take 1 [facility] 0.25 mg 6-01 tablet by ity of tablet 00:00: mouth in [place] 00 the Medical morning Branch and 1 tablet in the evening. For restless leg syndrome lidocaine-p 2022-0 Yes [id number] Rub over [facility] rilocaine 6-01 port site ity o f 2.5-2.5 % 00:00: before [place] cream 00 accessing. Medical Branch levothyroxi 2022-0 Yes [id number] 100ug Take 1 [facility] ne 100 mcg 6-01 tablet by ity of tablet 00:00: mouth [place] 00 every Medical morning. Branch pramipexole 2022-0 Yes [id number] .25mg Take 1 [facility] 0.25 mg 6-01 tablet by ity of tablet 00:00: mouth in [place] 00 the Medical morning Branch and 1 tablet in the evening. For restless leg syndrome lidocaine-p 2022-0 Yes [id number] Rub over [facility] rilocaine 6-01 port site ity o f 2.5-2.5 % 00:00: before [place] cream 00 accessing. Medical Branch levothyroxi 2022-0 Yes [id number] 100ug Take 1 [facility] ne 100 mcg 6-01 tablet by ity of tablet 00:00: mouth [place] 00 every Medical morning. Branch pramipexole 2022-0 Yes [id number] .25mg Take 1 [facility] 0.25 mg 6-01 tablet by ity of tablet 00:00: mouth in [place] 00 the Medical morning Branch and 1 tablet in the evening. For restless leg syndrome lidocaine-p 2022-0 Yes [id number] Rub over [facility] rilocaine 6-01 port site ity o f 2.5-2.5 % 00:00: before [place] cream 00 accessing. Medical Branch levothyroxi 2022-0 Yes [id number] 100ug Take 1 [facility] ne 100 mcg 6-01 tablet by ity of tablet 00:00: mouth [place] 00 every Medical morning. Branch pramipexole 2022-0 Yes [id number] .25mg Take 1 [facility] 0.25 mg 6-01 tablet by it[facility] of tablet 00:00: mouth in [place] 00 the Medical morning Branch and 1 tablet in the evening. For restless leg syndrome lidocaine-p 2023-0 Yes [id number] Rub over [facility] rilocaine 6-01 port site ity o f 2.5-2.5 % 00:00: before [place] cream 00 accessing. Medical Branch levothyroxi 2022-0 Yes [id number] 100ug Take 1 [facility] ne 100 mcg 6-01 tablet by it[facility] of tablet 00:00: mouth [place] 00 every Medical morning. Branch pramipexole 2022-0 Yes [id number] .25mg Take 1 [facility] 0.25 mg 6-01 tablet by ity of tablet 00:00: mouth in [place] 00 the Medical morning Branch and 1 tablet in the evening. For restless leg syndrome lidocaine-p 2022-0 Yes [id number] Rub over [facility] rilocaine 6-01 port site ity o f 2.5-2.5 % 00:00: before [place] cream 00 accessing. Medical Branch levothyroxi 2022-0 Yes [id number] 100ug Take 1 [facility] ne 100 mcg 6-01 tablet by [facility] of tablet 00:00: mouth [place] 00 every Medical morning. Branch pramipexole 2022-0 Yes [id number] .25mg Take 1 [facility] 0.25 mg 6-01 tablet by ity of tablet 00:00: mouth in [place] 00 the Medical morning Branch and 1 tablet in the evening. For restless leg syndrome lidocaine-p 2022-0 Yes [id number] Rub over [facility] rilocaine 6-01 port site ity o f 2.5-2.5 % 00:00: before [place] cream 00 accessing. Medical Branch levothyroxi 2022-0 Yes [id number] 100ug Take 1 [facility] ne 100 mcg 6-01 tablet by ity of tablet 00:00: mouth [place] 00 every Medical morning. Branch pramipexole 2022-0 Yes [id number] .25mg Take 1 [facility] 0.25 mg 6-01 tablet by ity of tablet 00:00: mouth in [place] 00 the Medical morning Branch and 1 tablet in the evening. For restless leg syndrome lidocaine-p 2022-0 Yes [id number] Rub over [facility] rilocaine 6-01 port site ity o f 2.5-2.5 % 00:00: before [place] cream 00 accessing. Medical Branch levothyroxi 2022-0 Yes [id number] 100ug Take 1 [facility] ne 100 mcg 6-01 tablet by ity of tablet 00:00: mouth [place] 00 every Medical morning. Branch pramipexole 3-0 Yes [id number] .25mg Take 1 [facility] 0.25 mg 6-01 tablet by it[facility] of tablet 00:00: mouth in [place] 00 the Medical morning Branch and 1 tablet in the evening. For restless leg syndrome lidocaine-p 3-0 Yes [id number] Rub over [facility] rilocaine 6-01 port site ity o f 2.5-2.5 % 00:00: before [place] cream 00 accessing. Medical Branch levothyroxi 3-0 Yes [id number] 100ug Take 1 [facility] ne 100 mcg 6-01 tablet by [facility] of tablet 00:00: mouth [place] 00 every Medical morning. Branch pramipexole 2022-0 Yes [id number] .25mg Take 1 [facility] 0.25 mg 6-01 tablet by it[facility] of tablet 00:00: mouth in [place] 00 the Medical morning Branch and 1 tablet in the evening. For restless leg syndrome lidocaine-p 3-0 Yes [id number] Rub over [facility] rilocaine 6-01 port site ity o f 2.5-2.5 % 00:00: before [place] cream 00 accessing. Medical Branch levothyroxi 3-0 Yes [id number] 100ug Take 1 [facility] ne 100 mcg 6-01 tablet by it[facility] of tablet 00:00: mouth [place] 00 every Medical morning. Branch pramipexole 2022-0 Yes [id number] .25mg Take 1 [facility] 0.25 mg 6-01 tablet by ity of tablet 00:00: mouth in [place] 00 the Medical morning Branch and 1 tablet in the evening. For restless leg syndrome lidocaine-p 3-0 Yes [id number] Rub over [facility] rilocaine 6-01 port site ity o f 2.5-2.5 % 00:00: before [place] cream 00 accessing. Medical Branch levothyroxi 3-0 Yes [id number] 100ug Take 1 [facility] ne 100 mcg 6-01 tablet by ity of tablet 00:00: mouth [place] 00 every Medical morning. Branch pramipexole 3-0 Yes [id number] .25mg Take 1 [facility] 0.25 mg 6-01 tablet by ity of tablet 00:00: mouth in [place] 00 the Medical morning Branch and 1 tablet in the evening. For restless leg syndrome lidocaine-p 2023-0 Yes [id number] Rub over [facility] rilocaine 6-01 port site ity o f 2.5-2.5 % 00:00: before [place] cream 00 accessing. Medical Branch levothyroxi 2022-0 Yes [id number] 100ug Take 1 [facility] ne 100 mcg 6-01 tablet by ity of tablet 00:00: mouth [place] 00 every Medical morning. Branch pramipexole 2022-0 Yes [id number] .25mg Take 1 [facility] 0.25 mg 6-01 tablet by ity of tablet 00:00: mouth in [place] 00 the Medical morning Branch and 1 tablet in the evening. For restless leg syndrome lidocaine-p 2022-0 Yes [id number] Rub over [facility] rilocaine 6-01 port site ity o f 2.5-2.5 % 00:00: before [place] cream 00 accessing. Medical Branch levothyroxi 2022-0 Yes [id number] 100ug Take 1 [facility] ne 100 mcg 6-01 tablet by ity of tablet 00:00: mouth [place] 00 every Medical morning. Branch pramipexole 2022-0 Yes [id number] .25mg Take 1 [facility] 0.25 mg 6-01 tablet by ity of tablet 00:00: mouth in [place] 00 the Medical morning Branch and 1 tablet in the evening. For restless leg syndrome lidocaine-p 2022-0 Yes [id number] Rub over [facility] rilocaine 6-01 port site ity o f 2.5-2.5 % 00:00: before [place] cream 00 accessing. Medical Branch levothyroxi 2022-0 Yes [id number] 100ug Take 1 [facility] ne 100 mcg 6-01 tablet by ity of tablet 00:00: mouth [place] 00 every Medical morning. Branch pramipexole 2022-0 Yes [id number] .25mg Take 1 [facility] 0.25 mg 6-01 tablet by ity of tablet 00:00: mouth in [place] 00 the Medical morning Branch and 1 tablet in the evening. For restless leg syndrome lidocaine-p 2022-0 Yes [id number] Rub over [facility] rilocaine 6-01 port site ity o f 2.5-2.5 % 00:00: before [place] cream 00 accessing. Medical Branch levothyroxi 2022-0 Yes [id number] 100ug Take 1 [facility] ne 100 mcg 6-01 tablet by ity of tablet 00:00: mouth [place] 00 every Medical morning. Branch pramipexole 2022-0 Yes [id number] .25mg Take 1 [facility] 0.25 mg 6-01 tablet by ity of tablet 00:00: mouth in [place] 00 the Medical morning Branch and 1 tablet in the evening. For restless leg syndrome lidocaine-p 3-0 Yes [id number] Rub over [facility] rilocaine 6-01 port site ity o f 2.5-2.5 % 00:00: before [place] cream 00 accessing. Medical Branch levothyroxi 2022-0 Yes [id number] 100ug Take 1 [facility] ne 100 mcg 6-01 tablet by ity of tablet 00:00: mouth [place] 00 every Medical morning. Branch pramipexole 2022-0 Yes [id number] .25mg Take 1 [facility] 0.25 mg 6-01 tablet by ity of tablet 00:00: mouth in [place] 00 the Medical morning Branch and 1 tablet in the evening. For restless leg syndrome lidocaine-p 2022-0 Yes [id number] Rub over [facility] rilocaine 6-01 port site ity o f 2.5-2.5 % 00:00: before [place] cream 00 accessing. Medical Branch levothyroxi 2022-0 Yes [id number] 100ug Take 1 [facility] ne 100 mcg 6-01 tablet by ity of tablet 00:00: mouth [place] 00 every Medical morning. Branch pramipexole 2022-0 Yes [id number] .25mg Take 1 [facility] 0.25 mg 6-01 tablet by ity of tablet 00:00: mouth in [place] 00 the Medical morning Branch and 1 tablet in the evening. For restless leg syndrome lidocaine-p 2022-0 Yes [id number] Rub over [facility] rilocaine 6-01 port site ity o f 2.5-2.5 % 00:00: before [place] cream 00 accessing. Medical Branch levothyroxi 2022-0 Yes [id number] 100ug Take 1 [facility] ne 100 mcg 6-01 tablet by ity of tablet 00:00: mouth [place] 00 every Medical morning. Branch pramipexole 2022-0 Yes [id number] .25mg Take 1 [facility] 0.25 mg 6-01 tablet by ity of tablet 00:00: mouth in [place] 00 the Medical morning Branch and 1 tablet in the evening. For restless leg syndrome lidocaine-p 3-0 Yes [id number] Rub over [facility] rilocaine 6-01 port site ity o f 2.5-2.5 % 00:00: before [place] cream 00 accessing. Medical Branch levothyroxi 2022-0 Yes [id number] 100ug Take 1 [facility] ne 100 mcg 6-01 tablet by ity of tablet 00:00: mouth [place] 00 every Medical morning. Branch pramipexole 2022-0 Yes [id number] .25mg Take 1 [facility] 0.25 mg 6-01 tablet by ity of tablet 00:00: mouth in [place] 00 the Medical morning Branch and 1 tablet in the evening. For restless leg syndrome lidocaine-p 2022-0 Yes [id number] Rub over [facility] rilocaine 6-01 port site ity o f 2.5-2.5 % 00:00: before [place] cream 00 accessing. Medical Branch levothyroxi 2022-0 Yes [id number] 100ug Take 1 [facility] ne 100 mcg 6-01 tablet by ity of tablet 00:00: mouth [place] 00 every Medical morning. Branch pramipexole 2022-0 Yes [id number] .25mg Take 1 [facility] 0.25 mg 6-01 tablet by ity of tablet 00:00: mouth in [place] 00 the Medical morning Branch and 1 tablet in the evening. For restless leg syndrome lidocaine-p 2022-0 Yes [id number] Rub over [facility] rilocaine 6-01 port site ity o f 2.5-2.5 % 00:00: before [place] cream 00 accessing. Medical Branch levothyroxi 2022-0 Yes [id number] 100ug Take 1 [facility] ne 100 mcg 6-01 tablet by ity of tablet 00:00: mouth [place] 00 every Medical morning. Branch pramipexole 2022-0 Yes [id number] .25mg Take 1 [facility] 0.25 mg 6-01 tablet by ity of tablet 00:00: mouth in [place] 00 the Medical morning Branch and 1 tablet in the evening. For restless leg syndrome lidocaine-p 2022-0 Yes [id number] Rub over [facility] rilocaine 6-01 port site ity o f 2.5-2.5 % 00:00: before [place] cream 00 accessing. Medical Branch levothyroxi 2022-0 Yes [id number] 100ug Take 1 [facility] ne 100 mcg 6-01 tablet by ity of tablet 00:00: mouth [place] 00 every Medical morning. Branch pramipexole 2022-0 Yes [id number] .25mg Take 1 [facility] 0.25 mg 6-01 tablet by ity of tablet 00:00: mouth in [place] [address] the [facility] and 1 tablet in the evening. For restless leg syndrome pramipexole 2022-0 Yes [id number] .25mg Take 1 [facility] 0.25 mg 6-01 tablet by ity of tablet 00:00: mouth in [place] [address] the [facility] and 1 tablet in the evening. For restless leg syndrome pramipexole 2022-0 Yes [id number] .25mg Take 1 [facility] 0.25 mg 6-01 tablet by ity of tablet 00:00: mouth in [place] [address] the [facility] and 1 tablet in the evening. For restless leg syndrome pramipexole 2022-0 Yes [id number] .25mg Take 1 [facility] 0.25 mg 6-01 tablet by ity of tablet 00:00: mouth in [place] [address] the [facility] and 1 tablet in the evening. For restless leg syndrome pramipexole 2022-0 Yes [id number] .25mg Take 1 [facility] 0.25 mg 6-01 tablet by ity of tablet 00:00: mouth in [place] [address] the [facility] and 1 tablet in the evening. For restless leg syndrome pramipexole 2022-0 Yes [id number] .25mg Take 1 [facility] 0.25 mg 6-01 tablet by ity of tablet 00:00: mouth in [place] [address] the [facility] and 1 tablet in the evening. For restless leg syndrome pramipexole 2022-0 Yes [id number] .25mg Take 1 [facility] 0.25 mg 6-01 tablet by ity of tablet 00:00: mouth in [address] and 1 tablet in the evening. For restless leg syndrome lidocaine-p 2022-2022- No [id number] Rub over [facility] rilocaine 12-07 port site ity of 2.5-2.5 % 00:00: 00:00 before [place] cream 00 :00 accessing. [facility] Branch levothyroxi 2022-0 2022- No [id number] 100ug Take 1 [facility] ne 100 mcg 12-07 tablet by ity of tablet 00:00: 00:00 mouth [place] 00 :00 every Medical morning. Branch lidocaine-p 2022- No [id number] Rub over [facility] rilocaine 12-07 port site ity of 2.5-2.5 % 00:00: 00:00 before [place] cream 00 :00 accessing. Medical Branch levothyroxi 2022- No [id number] 100ug Take 1 [facility] ne 100 mcg 12-07 tablet by ity of tablet 00:00: 00:00 mouth [place] 00 :00 every Medical morning. Branch apixaban 2022- No 5523 5mg Take 1 Univer s (ELIQUIS) 5 12-07 tablet by it y of mg tablet 00:00: 00:00 mouth in [place] 00 :00 the Medical morning Branch and 1 tablet in the evening. Indication s: history of deep vein thrombosis apixaban 2022-0 2022- No 5523 5mg Take 1 Univer s (ELIQUIS) 5 12-07 tablet by it y of mg tablet 00:00: 00:00 mouth in [place] 00 :00 the Medical morning Branch and 1 tablet in the evening. Indication s: history of deep vein thrombosis apixaban 2022-0 2022- No 5523 5mg Take 1 Univer s (ELIQUIS) 5 12-07 tablet by it y of mg tablet 00:00: 00:00 mouth in [place] 00 :00 the Medical morning Branch and 1 tablet in the evening. Indication s: history of deep vein thrombosis apixaban 2022-0 2022- No 5523 5mg Take 1 Univer s (ELIQUIS) 5 12-07 tablet by it y of mg tablet 00:00: 00:00 mouth in [place] 00 :00 the Medical morning Branch and 1 tablet in the evening. Indication s: history of deep vein thrombosis benzonatate 2022- No [id number] Take 1-2 Univers (TESSALON 12-07 06-23 capsules ity o f PERLES) 100 00:00: 00:00 [place] mg capsule 00 :00 times a Medica l day as Branch needed for cough. HYDROmorpho 2022- No 1mg 1 mg, Slow Univers ne 11-11 05-18 IV Push, ity of (DILAUDID) 18:45: 18:44 Q8HPRN, [place] injection 1 00 :00 Starting Medi janet mg on Sat Branch 11/11/22 at 1345, Until [place] 11/23/22 at 1344, Routine, Pain (scale 7-10), prn pain second line therapy. MUST USE ORAL NARCOTICS FIRST!!!<b r>Use approved by (Faculty): [facility] PROVIDER HYDROmorpho 2022- No 1mg 1 mg, Slow Univers ne 11-11- IV Push, ity of (DILAUDID) 14:30: 18:43 Q6HPRN, [place] injection 1 00 :52 Starting Medi janet mg on Sat Branch 11/11/22 at 0930, Until 11/11/22 at 1343, Routine, Pain (scale 7-10), prn pain second line therapy. MUST USE ORAL NARCOTICS FIRST!!!<b r>Use approved by (Faculty): [facility] PROVIDER amino acid 2022- No 2000mL at 83.3 U nivers 4.25%-detro 11-11 05-07 mL/hr, ity o f se 5% 02:15: 02:14 2,000 mL, [place] (CLINIMIX 00 :00 IV Medical 4.25%/D5W Infusion, Branc h SULFIT TPNCONTINU FREE) IV OUS, infusion Starting 2,000 mL on Sun11/10/22 at 2115, Until 11/11/22 at 2114, Routine Nebulizers Yes [id number] Use as Univers (VIXONE 506 directed ity of NEBULIZER-A 00:00: [place] DULT MASK) 00 Medical [facility] Branch Nebulizers Yes [id number] Use as Univers (VIXONE 506 directed ity of NEBULIZER-A 00:00: [place] DULT MASK) 00 Medical [facility] Branch Nebulizers Yes [id number] Use as Univers (VIXONE 5-06 directed ity of NEBULIZER-A 00:00: [place] DULT MASK) 00 [facility] Branch Nebulizers Yes [id number] Use as Univers (VIXONE 5-06 directed ity of NEBULIZER-A 00:00: [place] DULT MASK) 00 Medical Misc Branch Nebulizers Yes [id number] Use as Univers (VIXONE 5-06 directed ity of NEBULIZER-A 00:00: [place] DULT MASK) 00 Medical Misc Branch Nebulizers Yes [id number] Use as Univers (VIXONE 5-06 directed ity of NEBULIZER-A 00:00: [place] DULT MASK) 00 Medical Misc Branch Nebulizers Yes [id number] Use as Univers (VIXONE 5-06 directed ity of NEBULIZER-A 00:00: [place] DULT MASK) 00 Medical Misc Branch Nebulizers Yes [id number] Use as Univers (VIXONE 5-06 directed ity of NEBULIZER-A 00:00: [place] DULT MASK) 00 Medical Misc Branch Nebulizers Yes [id number] Use as Univers (VIXONE 5-06 directed ity of NEBULIZER-A 00:00: [place] DULT MASK) 00 Medical Misc Branch Nebulizers Yes [id number] Use as Univers (VIXONE 506 directed ity of NEBULIZER-A 00:00: [place] DULT MASK) 00 Medical Misc Branch Nebulizers Yes [id number] Use as Univers (VIXONE 506 directed ity of NEBULIZER-A 00:00: [place] DULT MASK) 00 Medical Misc Branch Nebulizers Yes [id number] Use as Univers (VIXONE 506 directed ity of NEBULIZER-A 00:00: [place] DULT MASK) 00 Medical Misc Branch Nebulizers Yes [id number] Use as Univers (VIXONE 5-06 directed ity of NEBULIZER-A 00:00: [place] DULT MASK) 00 Medical Misc Branch Nebulizers Yes [id number] Use as Univers (VIXONE 5-06 directed ity of NEBULIZER-A 00:00: [place] DULT MASK) 00 Medical Misc Branch Nebulizers 0 Yes [id number] Use as Univers (VIXONE 5-06 directed ity of NEBULIZER-A 00:00: [place] DULT MASK) 00 Medical Misc Branch Nebulizers Yes [id number] Use as Univers (VIXONE 5-06 directed ity of NEBULIZER-A 00:00: [place] DULT MASK) 00 Medical Misc Branch Nebulizers Yes [id number] Use as Univers (VIXONE 5-06 directed ity of NEBULIZER-A 00:00: [place] DULT MASK) 00 Medical Misc Branch Nebulizers Yes [id number] Use as Univers (VIXONE 5-06 directed ity of NEBULIZER-A 00:00: [place] DULT MASK) 00 Medical Misc Branch Nebulizers Yes [id number] Use as Univers (VIXONE 5-06 directed ity of NEBULIZER-A 00:00: [place] DULT MASK) 00 Medical Misc Branch Nebulizers Yes [id number] Use as Univers (VIXONE 5-06 directed ity of NEBULIZER-A 00:00: [place] DULT MASK) 00 Medical Misc Branch Nebulizers Yes [id number] Use as Univers (VIXONE 5-06 directed ity of NEBULIZER-A 00:00: [place] DULT MASK) 00 Medical Misc Branch Nebulizers Yes [id number] Use as Univers (VIXONE 506 directed ity of NEBULIZER-A 00:00: [place] DULT MASK) 00 Medical Misc Branch Nebulizers Yes [id number] Use as Univers (VIXONE 506 directed ity of NEBULIZER-A 00:00: [place] DULT MASK) 00 Medical Misc Branch Nebulizers Yes [id number] Use as Univers (VIXONE 506 directed ity of NEBULIZER-A 00:00: [place] DULT MASK) 00 Medical Misc Branch Nebulizers Yes [id number] Use as Univers (VIXONE 5-06 directed ity of NEBULIZER-A 00:00: [place] DULT MASK) 00 Medical Misc Branch Nebulizers Yes [id number] Use as Univers (VIXONE 5-06 directed ity of NEBULIZER-A 00:00: [place] DULT MASK) 00 Medical Misc Branch Nebulizers Yes [id number] Use as Univers (VIXONE 5-06 directed ity of NEBULIZER-A 00:00: [place] DULT MASK) 00 Medical Misc Branch Nebulizers Yes [id number] Use as Univers (VIXONE 5-06 directed ity of NEBULIZER-A 00:00: [place] DULT MASK) 00 Medical Misc Branch Nebulizers Yes [id number] Use as Univers (VIXONE 5-06 directed ity of NEBULIZER-A 00:00: [place] DULT MASK) 00 Medical Misc Branch Nebulizers Yes [id number] Use as Univers (VIXONE 5-06 directed ity of NEBULIZER-A 00:00: [place] DULT MASK) 00 Medical Misc Branch Nebulizers Yes [id number] Use as Univers (VIXONE 5-06 directed ity of NEBULIZER-A 00:00: [place] DULT MASK) 00 Medical Misc Branch Nebulizers Yes [id number] Use as Univers (VIXONE 5-06 directed ity of NEBULIZER-A 00:00: [place] DULT MASK) 00 Medical Misc Branch Nebulizers Yes [id number] Use as Univers (VIXONE 5-06 directed ity of NEBULIZER-A 00:00: [place] DULT MASK) Medical Misc Branch Nebulizers Yes [id number] Use as Univers (VIXONE 5-06 directed ity of NEBULIZER-A 00:00: [place] DULT MASK) Medical Misc Branch Nebulizers Yes [id number] Use as Univers (VIXONE 5-06 directed ity of NEBULIZER-A 00:00: [place] DULT MASK) 00 Medical Misc Branch Nebulizers Yes [id number] Use as Univers (VIXONE 5-06 directed ity of NEBULIZER-A 00:00: [place] DULT MASK) 00 Medical Misc Branch Nebulizers Yes [id number] Use as Univers (VIXONE 5-06 directed ity of NEBULIZER-A 00:00: [place] DULT MASK) 00 Medical Misc Branch Nebulizers Yes [id number] Use as Univers (VIXONE 5-06 directed ity of NEBULIZER-A 00:00: [place] DULT MASK) 00 Medical Misc Branch Nebulizers 2023-0 Yes [id number] Use as Univers (VIXONE 5-06 directed ity of NEBULIZER-A 00:00: [place] DULT MASK) 00 Medical Misc Branch Nebulizers Yes [id number] Use as Univers (VIXONE 5-06 directed ity of NEBULIZER-A 00:00: [place] DULT MASK) 00 Medical Misc Branch Nebulizers Yes [id number] Use as Univers (VIXONE 5-06 directed ity of NEBULIZER-A 00:00: [place] DULT MASK) 00 Medical Misc Branch Nebulizers Yes [id number] Use as Univers (VIXONE 5-06 directed ity of NEBULIZER-A 00:00: [place] DULT MASK) 00 Medical Misc Branch Nebulizers Yes [id number] Use as Univers (VIXONE 5-06 directed ity of NEBULIZER-A 00:00: [place] DULT MASK) 00 Medical Misc Branch Nebulizers Yes [id number] Use as Univers (VIXONE 5-06 directed ity of NEBULIZER-A 00:00: [place] DULT MASK) 00 Medical Misc Branch Nebulizers Yes [id number] Use as Univers (VIXONE 5-06 directed ity of NEBULIZER-A 00:00: [place] DULT MASK) 00 Medical Misc Branch Nebulizers Yes [id number] Use as Univers (VIXONE 5-06 directed ity of NEBULIZER-A 00:00: [place] DULT MASK) 00 Medical Misc Branch Nebulizers Yes [id number] Use as Univers (VIXONE 5-06 directed ity of NEBULIZER-A 00:00: [place] DULT MASK) 00 Medical Misc Branch Nebulizers Yes [id number] Use as Univers (VIXONE 5-06 directed ity of NEBULIZER-A 00:00: [place] DULT MASK) 00 Medical Misc Branch Nebulizers 0 Yes [id number] Use as Univers (VIXONE 5-06 directed ity of NEBULIZER-A 00:00: [place] DULT MASK) 00 Medical Misc Branch Nebulizers 0 Yes [id number] Use as Univers (VIXONE 5-06 directed ity of NEBULIZER-A 00:00: [place] DULT MASK) 00 Medical Misc Branch Nebulizers Yes [id number] Use as Univers (VIXONE 5-06 directed ity of NEBULIZER-A 00:00: [place] DULT MASK) 00 Medical Misc Branch Nebulizers Yes [id number] Use as Univers (VIXONE 506 directed ity of NEBULIZER-A 00:00: [place] DULT MASK) 00 Medical Misc Branch Nebulizers Yes [id number] Use as Univers (VIXONE 5-06 directed ity of NEBULIZER-A 00:00: [place] DULT MASK) 00 Medical Misc Branch Nebulizers Yes [id number] Use as Univers (VIXONE 5-06 directed ity of NEBULIZER-A 00:00: [place] DULT MASK) 00 Medical Misc Branch Nebulizers Yes [id number] Use as Univers (VIXONE 5-06 directed ity of NEBULIZER-A 00:00: [place] DULT MASK) 00 Medical Misc Branch Nebulizers Yes [id number] Use as Univers (VIXONE 5-06 directed ity of NEBULIZER-A 00:00: [place] DULT MASK) 00 Medical Misc Branch Nebulizers Yes [id number] Use as Univers (VIXONE 5-06 directed ity of NEBULIZER-A 00:00: [place] DULT MASK) 00 Medical Misc Branch Nebulizers Yes [id number] Use as Univers (VIXONE 5-06 directed ity of NEBULIZER-A 00:00: [place] DULT MASK) 00 Medical Misc Branch Nebulizers Yes [id number] Use as Univers (VIXONE 5-06 directed ity of NEBULIZER-A 00:00: [place] DULT MASK) 00 Medical Misc Branch Nebulizers Yes [id number] Use as Univers (VIXONE 5-06 directed ity of NEBULIZER-A 00:00: [place] DULT MASK) 00 Medical Misc Branch Nebulizers Yes [id number] Use as Univers (VIXONE 5-06 directed ity of NEBULIZER-A 00:00: [place] DULT MASK) 00 Medical Misc Branch Nebulizers Yes [id number] Use as Univers (VIXONE 5-06 directed ity of NEBULIZER-A 00:00: [place] DULT MASK) 00 Medical Misc Branch Nebulizers Yes [id number] Use as Univers (VIXONE 5-06 directed ity of NEBULIZER-A 00:00: [place] DULT MASK) 00 Medical Misc Branch Nebulizers Yes [id number] Use as Univers (VIXONE 5-06 directed ity of NEBULIZER-A 00:00: [place] DULT MASK) 00 Medical Misc Branch Nebulizers Yes [id number] Use as Univers (VIXONE 506 directed ity of NEBULIZER-A 00:00: [place] DULT MASK) 00 Medical Misc Branch Nebulizers Yes [id number] Use as Univers (VIXONE 5-06 directed ity of NEBULIZER-A 00:00: [place] DULT MASK) 00 Medical Misc Branch Nebulizers Yes [id number] Use as Univers (VIXONE 5-06 directed ity of NEBULIZER-A 00:00: [place] DULT MASK) 00 Medical Misc Branch Nebulizers Yes [id number] Use as Univers (VIXONE 506 directed ity of NEBULIZER-A 00:00: [place] DULT MASK) Medical Misc Branch Nebulizers Yes [id number] Use as Univers (VIXONE 506 directed ity of NEBULIZER-A 00:00: [place] DULT MASK) Medical Misc Branch Nebulizers Yes [id number] Use as Univers (VIXONE 5-06 directed ity of NEBULIZER-A 00:00: [place] DULT MASK) 00 Medical Misc Branch Nebulizers Yes [id number] Use as Univers (VIXONE 5-06 directed ity of NEBULIZER-A 00:00: [place] DULT MASK) 00 Medical Misc Branch Nebulizers Yes [id number] Use as Univers (VIXONE 5-06 directed ity of NEBULIZER-A 00:00: [place] DULT MASK) 00 Medical Misc Branch Nebulizers 0 Yes [id number] Use as Univers (VIXONE 5-06 directed ity of NEBULIZER-A 00:00: [place] DULT MASK) 00 Medical Misc Branch Nebulizers Yes [id number] Use as Univers (VIXONE 5-06 directed ity of NEBULIZER-A 00:00: [place] DULT MASK) 00 Medical [facility] Branch Nebulizers Yes [id number] Use as Univers (VIXONE 5-06 directed ity of NEBULIZER-A 00:00: [place] DULT MASK) 00 Medical [facility] Branch Nebulizers Yes [id number] Use as Univers (VIXONE 5-06 directed ity of NEBULIZER-A 00:00: [place] DULT MASK) 00 Medical [facility] Branch Nebulizers Yes [id number] Use as Univers (VIXONE 5-06 directed ity of NEBULIZER-A 00:00: [place] DULT MASK) 00 [facility] Branch albuterol 2022- No [id number] .63mg Use 3 mL Univers 0.63 mg/3 11-11-06 as ity of mL 00:00: 04:59 directed [place] nebulizer 00 :00 every 6 Medical solution (six) Branch hours as needed for Wheezing for up to 30 days. albuterol 2022- No [id number] .63mg Use 3 mL Univers 0.63 mg/3 11-11-06 as ity of mL 00:00: 04:59 directed [place] nebulizer 00 :00 every 6 Medical solution (six) Branch hours as needed for Wheezing for up to 30 days. albuterol 2022- No [id number] .63mg Use 3 mL Univers 0.63 mg/3 11-11-06 as ity of mL 00:00: 04:59 directed [place] nebulizer 00 :00 every 6 Medical solution (six) Branch hours as needed for Wheezing for up to 30 days. albuterol 2022- No [id number] .63mg Use 3 mL Univers 0.63 mg/3 11-11-06 as ity of mL 00:00: 04:59 directed [place] nebulizer 00 :00 every 6 Medical solution (six) Branch hours as needed for Wheezing for up to 30 days. albuterol 2022- No [id number] .63mg Use 3 mL Univers 0.63 mg/3 11-11-06 as ity of mL 00:00: 04:59 directed [place] nebulizer 00 :00 every 6 Medical solution (six) Branch hours as needed for Wheezing for up to 30 days. albuterol 3-0 3- No [id number] .63mg Use 3 mL Univers 0.63 mg/3 5- 06-06 as ity of mL 00:00: 04:59 directed [place] nebulizer 00 :00 every 6 Medical solution (six) Branch hours as needed for Wheezing for up to 30 days. albuterol 2022-0 2022- No [id number] .63mg Use 3 mL Univers 0.63 mg/3 5- 06-06 as ity of mL 00:00: 04:59 directed [place] nebulizer 00 :00 every 6 Medical solution (six) Branch hours as needed for Wheezing for up to 30 days. albuterol 2022-0 2022- No [id number] .63mg Use 3 mL Univers 0.63 mg/3 5-12 12-06 as ity of mL 00:00: 04:59 directed [place] nebulizer 00 :00 every 6 Medical solution (six) Branch hours as needed for Wheezing for up to 30 days. albuterol 2022-0 2022- No [id number] .63mg Use 3 mL Univers 0.63 mg/3 -12 12-06 as ity of mL 00:00: 04:59 directed [place] nebulizer 00 :00 every 6 Medical solution (six) Branch hours as needed for Wheezing for up to 30 days. albuterol 2022-0 3- No [id number] .63mg Use 3 mL Univers 0.63 mg/3 -12 12-06 as ity of mL 00:00: 04:59 directed [place] nebulizer 00 :00 every 6 Medical solution (six) Branch hours as needed for Wheezing for up to 30 days. albuterol 2022-0 3- No [id number] .63mg Use 3 mL Univers 0.63 mg/3 -12 12-06 as ity of mL 00:00: 04:59 directed [place] nebulizer 00 :00 every 6 Medical solution (six) Branch hours as needed for Wheezing for up to 30 days. albuterol 2023-0 3- No [id number] .63mg Use 3 mL Univers 0.63 mg/3 5-12 12-06 as ity of mL 00:00: 04:59 directed [place] nebulizer 00 :00 every 6 Medical solution (six) Branch hours as needed for Wheezing for up to 30 days. albuterol 2022-0 2023- No [id number] .63mg Use 3 mL Univers 0.63 mg/3 11-11- as ity of mL 00:00: 04:59 directed [place] nebulizer 00 :00 every 6 Medical solution (six) Branch hours as needed for Wheezing for up to 30 days. enoxaparin 2022-0 Yes 40mg 40 mg, Unive rs (LOVENOX) 5-05 Subcutaneo ity of injection 14:00: [place], DAILY, [place] 40 mg 00 First dose Medical on Sun11/10/22 at 0900, Until Discontinu ed, Routine docusate 3-0 Yes 100mg 100 mg, [facility] (COLACE) 5-05 Oral, ity of capsule 100 14:00: DAILY, [place] 00 First dose Medical on Sun11/10/22 at 0900, Until Discontinu ed, Routine nadoloL 3-0 Yes 40mg 40 mg, Univers (CORGARD) 5-05 Oral, ity of tablet 40 14:00: DAILY, [place] mg 00 First dose Medical on Sun11/10/22 at 0900, Until Discontinu ed, Routine pantoprazol 2022-0 Yes 40mg 40 mg, Univ ers e 5-05 Oral, ity of (PROTONIX) 14:00: DAILY, [place] EC tablet 00 First dose Medi janet 40 mg on Sun11/10/22 at 0900, Until Discontinu ed, Routine enoxaparin 2022-0 Yes 40mg 40 mg, Unive rs (LOVENOX) 5-05 Subcutaneo ity of injection 14:00: [place], [place]ILY, [place] 40 mg 00 First dose Medical on Sun11/10/22 at 0900, Until Discontinu ed, Routine docusate 2023-0 Yes 100mg 100 mg, Unive rs (COLACE) 5-05 Oral, ity of capsule 100 14:00: DAILY, [place] mg 00 First dose Medical on Sun11/10/22 at 0900, Until Discontinu ed, Routine nadoloL 2023-0 Yes 40mg 40 mg, Univers (CORGARD) 5-05 Oral, ity of tablet 40 14:00: DAILY, [place] mg 00 First dose Medical on Fri Branch 11/10/22 at 0900, Until Discontinu ed, Routine pantoprazol 2022-0 Yes 40mg 40 mg, Univ ers e 5-05 Oral, ity of (PROTONIX) 14:00: DAILY, [place] EC tablet 00 First dose Medi janet 40 mg on Fri Branch 11/10/22 at 0900, Until Discontinu ed, Routine methocarbam 2022-0 Yes 500mg 500 mg, [place] oL 5-05 Oral, TID, ity of (ROBAXIN) 13:15: First dose [place] tablet 500 00 on Fri Medical mg 11/10/22 at Branch 0815, Until Discontinu ed, Routine methocarbam 2022-0 Yes 500mg 500 mg, [place] oL 5-05 Oral, TID, ity of (ROBAXIN) 13:15: First dose [place] tablet 500 00 on Fri Medical mg 11/10/22 at Branch 0815, Until Discontinu ed, Routine oxyCODONE-a 2022-0 Yes 2{tbl} 2 tablet, Univers cetaminophe 5-05 Oral, ity of n 13:05: Q4HPRNRoulette, [place] (PERCOCET) 44 Starting Medic al 5-325 mg on Fri Branch per tablet 11/10/22 at 2 tablet 0805, Until Discontinu ed, Routine, pain scale 4-10, first line therapy oxyCODONE-a 3-0 Yes 2{tbl} 2 tablet, Univers cetaminophe 5-05 Oral, ity of n 13:05: Q4HPRNRoulette, [place] (PERCOCET) 44 Starting Medic al 5-325 mg on Fri Branch per tablet 11/10/22 at 2 tablet 0805, Until Discontinu ed, Routine, pain scale 4-10, first line therapy levothyroxi 2022-0 Yes 100ug 100 mcg, U nivers ne 5-05 Oral, ity of (SYNTHROID) 11:00: QAM-0600, [place] tablet 100 00 First dose Med ical mcg on Fri Branch 11/10/22 at 0600, Until Discontinu ed, Routine levothyroxi 2022-0 Yes 100ug 100 mcg, U nivers ne 5-05 Oral, ity of (SYNTHROID) 11:00: QAM-0600, [place] tablet 100 00 First dose Med ical mcg on [place] 11/10/22 at 0600, Until Discontinu ed, Routine Total 2022-0 2023- No at 52 Univers Parenteral 5-05 05-06 mL/hr, ity of Nutrition 02:00: 01:59 1,250 [place], [place] 00 :00 [facility], Branch Starting on [facility] 11/09/22 at 2100, Until Sun11/10/22 at 2058 Total 2022-0 2023- No at 52 Univers Parenteral 5-05 05-06 mL/hr, ity of Nutrition 02:00: 01:59 1,250 mL, [place] 00 :00 [facility], Branch Starting on [facility] 11/09/22 at 2100, Until Sun11/10/22 at 2058 gabapentin 2022-0 Yes 300mg 300 mg, Uni vers (NEURONTIN) 5-05 Oral, TID, it y of capsule 300 01:00: First dose [place] mg 00 on [facility] 11/09/22 at [place] 1999, Until Discontinu ed, Routine pramipexole 2022-0 Yes .25mg 0.25 mg, U nivers (MIRAPEX) 5-05 Oral, BID, ity of tablet 0.25 01:00: First dose [place] mg 00 on [facility] 11/09/22 at [place] 1999, Until Discontinu ed, Routine levETIRAcet 2022-0 Yes 500mg 500 mg, [place] am (KEPPRA) 5-05 Oral, BID, it y of tablet 500 01:00: First dose [place] mg 00 on [facility] 11/09/22 at [place] 1999, Until Discontinu ed, Routine gabapentin 3-0 Yes 300mg 300 mg, Uni vers (NEURONTIN) 5-05 Oral, TID, it y of capsule 300 01:00: First dose [place] mg 00 on [facility] 11/09/22 at [place] 1999, Until Discontinu ed, Routine pramipexole 3-0 Yes .25mg 0.25 mg, U nivers (MIRAPEX) 5-05 Oral, BID, ity of tablet 0.25 01:00: First dose [place] mg 00 on [facility] 11/09/22 at [place] 1999, Until Discontinu ed, Routine levETIRAcet Yes 500mg 500 mg, Un [facility] am (KEPPRA) 5-05 Oral, BID, it y of tablet 500 01:00: First dose [place] mg 00 on [facility] 11/09/22 at [place] 1999, Until Discontinu ed, Routine enoxaparin 2022- No [id number] 40mg inject 0.4 Univers 40 mg/0.4 5-05 05-16 mL under ity o f mL 00:00: 04:59 the skin [place] injection 00 :00 in the [facility] for 6 days. *discard remainder* enoxaparin 2022- No [id number] 40mg inject 0.4 Univers 40 mg/0.4 5-05 05-16 mL under ity o f mL 00:00: 04:59 the skin [place] injection 00 :00 in the [facility] for 6 days. *discard remainder* enoxaparin 2022- No [id number] 40mg inject 0.4 Univers 40 mg/0.4 5-05 05-16 mL under ity o f mL 00:00: 04:59 the skin [place] injection 00 :00 in the [facility] for 6 days. *discard remainder* enoxaparin 2022- No [id number] 40mg inject 0.4 Univers 40 mg/0.4 5-05 05-16 mL under ity o f mL 00:00: 04:59 the skin [place] injection 00 :00 in the [facility] for 6 days. *discard remainder* oxyCODONE 5 2022- No [id number] 5mg Take 1 Uni vers mg 5-05 05-13 tablet by ity of immediate 00:00: 04:59 mouth [place] release 00 :00 every 6 Medical tablet (six) Branch hours as needed for Pain (scale 7-10) for up to 7 days. Indication s: acute pain oxyCODONE 5 2022-2022- No 4647 5mg Take 1 Uni vers mg 5-05 05-13 tablet by ity of immediate 00:00: 04:59 mouth [place] release 00 :00 every 6 Medical tablet (six) Branch hours as needed for Pain (scale 7-10) for up to 7 days. Indication s: acute pain oxyCODONE 5 2022- No 4647 5mg Take 1 Uni vers mg 5-05 05-13 tablet by ity of immediate 00:00: 04:59 mouth [place] release 00 :00 every 6 Medical tablet (six) Branch hours as needed for Pain (scale 7-10) for up to 7 days. Indication s: acute pain oxyCODONE 5 2022- No 4647 5mg Take 1 Uni vers mg 5-05 05-13 tablet by ity of immediate 00:00: 04:59 mouth [place] release 00 :00 every 6 Medical tablet (six) Branch hours as needed for Pain (scale 7-10) for up to 7 days. Indication s: acute pain lipase-prot Yes 2{capsu 2 capsule, Univers ease-amylas 5-04 le} Oral, TID ity of e 22:00: MEALS, [place] (PANCREAZE) 00 First dose Me dical 16,800-56,8 on [place] Branch 00- 98,400 5/10/29 at unit 1700, capsule 2 Until capsule Discontinu ed lipase-prot Yes 2{capsu 2 capsule, Univers ease-amylas 5-04 le} Oral, TID ity of e 22:00: MEALS, [place] (PANCREAZE) 00 First dose Me dical 16,800-56,8 on [place] Branch 00- 98,400 5/23 at unit 1700, capsule 2 Until capsule Discontinu ed HYDROcodone 2022- No 1{tbl} 1 tablet, Univers -acetaminop 5-04 05-05 Oral, ity of hen (NORCO) 21:38: 13:08 Q4HPRN, [place] 10-325 mg 00 :09 Starting Medica l tablet 1 on [place] Branch tablet 11/09/22 at 1638, Until 11/10/22 at 0808, Routine, pain scale 4-10, first line therapy HYDROcodone 2022- No 1{tbl} 1 tablet, Univers -acetaminop 5-04 05-05 Oral, ity of hen (NORCO) 21:38: 13:08 Q4HPRN, [place] 10-325 mg 00 :09 Starting Medica l tablet 1 on [place] Branch tablet 11/09/22 at 1638, Until 11/10/22 at 0808, Routine, pain scale 4-10, first line therapy HYDROmorpho 2022- No 1mg 1 mg, Slow Univers ne 11-09-18 IV Push, ity of (DILAUDID) 21:35: 21:34 Q4HPRN, [place] injection 1 40 :40 Starting Medi janet mg on [place] Branch 11/09/22 at 1635, Until [place] 11/23/22 at 1634, Routine, Pain (scale 7-10), prn pain second line therapy. MUST USE ORAL NARCOTICS FIRST!!!<b r>Use approved by (Faculty): [employer] PROVIDER HYDROmorpho 2022- No 1mg 1 mg, Slow Univers ne 11-09 05-06 IV Push, ity of (DILAUDID) 21:35: 14:22 Q4HPRN, [place] injection 1 40 :22 Starting Medi janet mg on [place] Branch 11/09/22 at 1635, Until 11/11/22 at 0922, Routine, Pain (scale 7-10), prn pain second line therapy. MUST USE ORAL NARCOTICS FIRST!!!<b r>Use approved by (Faculty): [employer] PROVIDER polyethylen Yes 17g 17 g, Unive rs e glycol 5-04 Oral, ity of 3350 powder 17:54: QDAILYPRN, [place] 17 g 10 Starting Medical on [place] Branch 11/09/22 at 1254, Until Discontinu ed, Routine, Constipati on polyethylen Yes 17g 17 g, Unive rs e glycol 5-04 Oral, ity of 3350 powder 17:54: QDAILYPRN, [place] 17 g 10 Starting Medical on [place] Branch 11/09/22 at 1254, Until Discontinu ed, Routine, Constipati on acetaminoph Yes 650mg 650 mg, Un bry en 5-04 Oral, Q6H, ity of (TYLENOL) 17:00: First dose [place] tablet 650 00 on [place] Medical mg 11/09/22 at Branch 1200, Until Discontinu ed, Routine acetaminoph Yes 650mg 650 mg, Un [facility] en 5-04 Oral, Q6H, ity of (TYLENOL) 17:00: First dose [place] tablet 650 00 on [place] Medical mg 11/09/22 at Branch 1200, Until Discontinu ed, Routine ketorolac 2022- No 30mg 30 mg, Unive rs (TORADOL) 11-09 Slow IV ity of injection 17:00: 16:59 Push, Q6H, [place] 30 mg 00 :00 12 doses, Medical First dose Branch on [place] 11/09/22 at 1200, Last dose on 11/12/22 at 0600, Routine ketorolac 2022- No 30mg 30 mg, Unive rs (TORADOL) 11-09 Slow IV ity of injection 17:00: 16:59 Push, Q6H, [place] 30 mg 00 :00 12 doses, Medical First dose Branch on [facility] 11/09/22 at 1200, Last dose on 11/12/22 at 0600, Routine dexamethaso 2022- No 4mg 4 mg, Slow Univers ne 11-09 05-06 IV Push, ity of (DECADRON 17:00: 16:59 Q6H, 8 [place] PHOSPHATE) 00 :00 doses, Medical injection 4 First dose Br anch mg on [place] 11/09/22 at 1200, Last dose on 11/11/22 at 0600, Routine dexamethaso 2022- No 4mg 4 mg, Slow Univers ne 11-09 05-06 IV Push, ity of (DECADRON 17:00: 10:23 Q6H, 8 [place] PHOSPHATE) 00 :00 doses, Medical injection 4 First dose Br anch mg on [place] 11/09/22 at 1200, Last dose on 11/11/22 at 0600, Routine phenoL Yes 1{spray 1 [place], Univ ers (SORE 11-09 } Oral, PRN, ity of THROAT 15:50: Starting [place] (PHENOL)) 17 on [place] [facility] 1.4 % spray 11/09/22 at [facility] bottle 1 1050, [place] Until Discontinu ed, Routine, Oral mucositis, Sore throat phenoL Yes 1{spray 1 [place], Univ ers (SORE 5-04 } Oral, PRN, ity of THROAT 15:50: Starting [place] (PHENOL)) 17 on [place] [facility] 1.4 % spray 11/09/22 at [place] counts include [facility] beds at the [facility] bottle 1 1050, [place] Until Discontinu ed, Routine, Oral mucositis, Sore throat FENTanyl PF 2022-2022- No 25ug 25 mcg, Un bry (SUBLIMAZE 5-04 05-04 Slow IV ity o f (PF)) 15:49: 21:41 Push, [place] injection 39 :02 Q2HPRN, Medical 25 mcg Starting Branch on [place] 11/09/22 at 1049, Until [place] 11/09/22 at 1641, Routine, Pain (scale 7-10) FENTanyl PF 2022- No 25ug 25 mcg, Un bry (SUBLIMAZE 5-04 05-04 Slow IV ity o f (PF)) 15:49: 21:41 Push, [place] injection 39 :02 Q2HPRN, Medical 25 mcg Starting Branch on [place] 11/09/22 at 1049, Until [place] 11/09/22 at 1641, Routine, Pain (scale 7-10) HYDROcodone 2022- No 1{tbl} 1 tablet, Univers -acetaminop 5-04 05-04 Oral, ity of hen (NORCO 15:45: 16:12 ONCE, 1 [place] 5) 5-325 mg 00 :00 dose, On Medi janet tablet 1 [place] 11/09/22 Branc h tablet at 1045, Routine, PACU HYDROcodone 2022- No 1{tbl} 1 tablet, Univers -acetaminop 5-04 05-04 Oral, ity of hen (NORCO 15:45: 16:12 ONCE, 1 [place] 5) 5-325 mg 00 :00 dose, On Medi janet tablet 1 [place] 11/09/22 Branc h tablet at 1045, Routine, PACU diazePAM 2022- No 5mg 5 mg, Univers (VALIUM) 5-04 05-05 Oral, ity of tablet 5 mg 15:44: 13:08 TIDPRN, [place] 10 :09 Starting Medical on [facility] Branch 11/09/22 at 1044, Until Sun11/10/22 at 0808, Routine, Muscle Spasms diazePAM 2022- No 5mg 5 mg, Univers (VALIUM) 11-0905 Oral, ity of tablet 5 mg 15:44: 13:08 TIDPRN, [place] 10 :09 Starting Medical on [place] Branch 11/09/22 at 1044, Until Sun11/10/22 at 0808, Routine, Muscle Spasms FENTanyl PF 2022- No 25ug 25 mcg, Un bry (SUBLIMAZE 11-09 Slow IV ity o f (PF)) 15:34: 17:28 Push, [place] injection 49 :43 Q5MIN PRN, Medi janet 25 mcg 4 doses, Branch Starting on [facility] 11/09/22 at 1034, Until [facility] 11/09/22 at 1228, Routine, Pain (scale 4-6), PACU FENTanyl PF 2022- No 25ug 25 mcg, Un bry (SUBLIMAZE 11-09 Slow IV ity o f (PF)) 15:34: 17:28 Push, [place] injection 49 :43 Q5MIN PRN, Medi janet 25 mcg 4 doses, Branch Starting on [facility] 11/09/22 at 1034, Until [facility] 11/09/22 at 1228, Routine, Pain (scale 4-6), PACU vancomycin 0 Yes PRN, Univers (VANCOCIN) 11-09 Starting ity o f injection 15:10: on [facility] 11/09/22 at Medical 1010, Branch Until Discontinu ed, VESNA, Intra-op thrombin 0 Yes PRN, Univers (recombinan 11-09 Starting ity of t) 14:47: on [facility] (RECOTHROM) 11/09/22 at Med ical topical 0947, [place] solution Until Discontinu ed, Routine, Intra-op lidocaine-e Yes PRN, Univer s pinephrine 11-09 Starting ity o f (XYLOCAINE 13:35: on [place] WITH 11/09/22 at Medical EPINEPHRINE 0835, [place] ) 0.5 Until %-1:200,000 Discontinu injection ed, Routine, Intra-op levetiracet 2023-0 2023- No 500mg Take 500 Univers am (KEPPRA 4-27 04-27 mg by ity of ORAL) 15:46: 00:00 mouth 2 [place] 24 :00 (two) Medical times Branch daily. levetiracet 3-0 2023- No 500mg Take 500 Univers am (KEPPRA 4-27 04-27 mg by ity of ORAL) 15:46: 00:00 mouth 2 [place] 24 :00 (two) Medical times Branch daily. levETIRAcet 3-0 Yes [id number] 500mg Take 1 Univers am (KEPPRA) 4-27 tablet by ity of 500 mg 00:00: mouth in [place] tablet 00 the Medical morning Branch and 1 tablet in the evening. acetaZOLAMI 3-0 Yes [id number] 500mg Take 1 Univers DE 500 mg 4-27 capsule by ity of capsule 00:00: mouth in [place] 00 the Medical morning Branch and 1 capsule in the evening. doxycycline 3-0 Yes [id number] 100mg Take 1 Univers hyclate 100 4-27 tablet by ity of mg tablet 00:00: mouth [place] 00 the Medical morning Branch and 1 tablet in the evening. cephALEXin 3-0 Yes [id number] 500mg Take 1 Univers 500 mg 4-27 capsule by ity of capsule 00:00: mouth 4 [place] [address] ([facility]) Medical times [place] daily. levETIRAcet 3-0 Yes [id number] 500mg Take 1 Univers am (KEPPRA) 4-27 tablet by ity of 500 mg 00:00: mouth in [place] tablet 00 the Medical morning Branch and 1 tablet in the evening. acetaZOLAMI 3-0 Yes [id number] 500mg Take 1 Univers DE 500 mg 4-27 capsule by ity of capsule 00:00: mouth in [place] 00 the Medical morning Branch and 1 capsule in the evening. doxycycline 2023-0 Yes [id number] 100mg Take 1 Univers hyclate 100 4-27 tablet by ity of mg tablet 00:00: mouth [place] 00 the Medical morning Branch and 1 tablet in the evening. cephALEXin 2023-0 Yes [id number] 500mg Take 1 Univers 500 mg 4-27 capsule by ity of capsule 00:00: mouth 4 [place] [address] ([facility]) Medical times Branch daily. levETIRAcet 2023-0 Yes [id number] 500mg Take 1 Univers am (KEPPRA) 4-27 tablet by ity of 500 mg 00:00: mouth in [place] tablet 00 the Medical morning Branch and 1 tablet in the evening. acetaZOLAMI 3-0 Yes [id number] 500mg Take 1 Univers DE 500 mg 4-27 capsule by ity of capsule 00:00: mouth in [place] 00 the Medical morning Branch and 1 capsule in the evening. doxycycline 2023-0 Yes [id number] 100mg Take 1 Univers hyclate 100 4-27 tablet by ity of mg tablet 00:00: mouth [place] 00 the Medical morning Branch and 1 tablet in the evening. cephALEXin 2023-0 Yes [id number] 500mg Take 1 Univers 500 mg 4-27 capsule by ity of capsule 00:00: mouth 4 [place] [address] ([facility]) [facility] times [place] daily. levETIRAcet 3-0 Yes [id number] 500mg Take 1 Univers am (KEPPRA) 4-27 tablet by ity of 500 mg 00:00: mouth in [place] tablet 00 the Medical morning Branch and 1 tablet in the evening. acetaZOLAMI 2022-0 Yes [id number] 500mg Take 1 Univers DE 500 mg 4-27 capsule by ity of capsule 00:00: mouth in [place] 00 the Medical morning Branch and 1 capsule in the evening. doxycycline 3-0 Yes [id number] 100mg Take 1 Univers hyclate 100 4-27 tablet by ity of mg tablet 00:00: mouth [place] 00 the Medical morning Branch and 1 tablet in the evening. cephALEXin 3-0 Yes [id number] 500mg Take 1 Univers 500 mg 4-27 capsule by ity of capsule 00:00: mouth 4 [place] [address] ([facility]) Medical times [place] daily. levETIRAcet 3-0 Yes [id number] 500mg Take 1 Univers am (KEPPRA) 4-27 tablet by ity of 500 mg 00:00: mouth in [place] tablet 00 the Medical morning Branch and 1 tablet in the evening. acetaZOLAMI 3-0 Yes [id number] 500mg Take 1 Univers DE 500 mg 4-27 capsule by ity of capsule 00:00: mouth in [place] 00 the Medical morning Branch and 1 capsule in the evening. doxycycline 2023-0 Yes [id number] 100mg Take 1 Univers hyclate 100 4-27 tablet by ity of mg tablet 00:00: mouth [place] 00 the Medical morning Branch and 1 tablet in the evening. cephALEXin 2023-0 Yes [id number] 500mg Take 1 Univers 500 mg 4-27 capsule by ity of capsule 00:00: mouth 4 [place] [address] ([facility] times [place] daily. levETIRAcet 3-0 Yes [id number] 500mg Take 1 Univers am (KEPPRA) 4-27 tablet by ity of 500 mg 00:00: mouth in [place] tablet 00 the Medical morning Branch and 1 tablet in the evening. acetaZOLAMI 3-0 Yes [id number] 500mg Take 1 Univers DE 500 mg 4-27 capsule by ity of capsule 00:00: mouth in [place] 00 the Medical morning Branch and 1 capsule in the evening. doxycycline 3-0 Yes [id number] 100mg Take 1 Univers hyclate 100 4-27 tablet by ity of mg tablet 00:00: mouth [place] 00 the Medical morning Branch and 1 tablet in the evening. cephALEXin 3-0 Yes [id number] 500mg Take 1 Univers 500 mg 4-27 capsule by ity of capsule 00:00: mouth 4 [place] [address] ([facility] times [place] daily. levETIRAcet 3-0 Yes [id number] 500mg Take 1 Univers am (KEPPRA) 4-27 tablet by ity of 500 mg 00:00: mouth in [place] tablet 00 the Medical morning Branch and 1 tablet in the evening. acetaZOLAMI 3-0 Yes [id number] 500mg Take 1 Univers DE 500 mg 4-27 capsule by ity of capsule 00:00: mouth in [place] 00 the Medical morning Branch and 1 capsule in the evening. levETIRAcet 3-0 Yes [id number] 500mg Take 1 Univers am (KEPPRA) 4-27 tablet by ity of 500 mg 00:00: mouth in [place] tablet 00 the Medical morning Branch and 1 tablet in the evening. acetaZOLAMI 3-0 Yes [id number] 500mg Take 1 Univers DE 500 mg 4-27 capsule by ity of capsule 00:00: mouth in [place] 00 the [facility] morning Branch and 1 capsule in the evening. levETIRAcet 2023-0 Yes [id number] 500mg Take 1 Univers am (KEPPRA) 4-27 tablet by ity of 500 mg 00:00: mouth in [place] tablet 00 the [facility] morning Branch and 1 tablet in the evening. acetaZOLAMI 3-0 Yes [id number] 500mg Take 1 Univers DE 500 mg 4-27 capsule by ity of capsule 00:00: mouth in [place] 00 the Medical morning Branch and 1 capsule in the evening. levETIRAcet 3-0 Yes [id number] 500mg Take 1 Univers am (KEPPRA) 4-27 tablet by ity of 500 mg 00:00: mouth in [place] tablet 00 the Medical morning Branch and 1 tablet in the evening. acetaZOLAMI 2022-0 Yes [id number] 500mg Take 1 Univers DE 500 mg 4-27 capsule by ity of capsule 00:00: mouth in [place] 00 the Medical morning Branch and 1 capsule in the evening. levETIRAcet 2022-0 Yes [id number] 500mg Take 1 Univers am (KEPPRA) 4-27 tablet by ity of 500 mg 00:00: mouth in [place] tablet 00 the Medical morning Branch and 1 tablet in the evening. acetaZOLAMI 2022-0 Yes [id number] 500mg Take 1 Univers [place] 500 mg 4-27 capsule by ity of capsule 00:00: mouth in [place] 00 the Medical morning Branch and 1 capsule in the evening. levETIRAcet 2022-0 Yes [id number] 500mg Take 1 Univers am (KEPPRA) 4-27 tablet by ity of 500 mg 00:00: mouth in [place] tablet 00 the Medical morning Branch and 1 tablet in the evening. acetaZOLAMI 2022-0 Yes [id number] 500mg Take 1 Univers DE 500 mg 4-27 capsule by ity of capsule 00:00: mouth in [place] 00 the Medical morning Branch and 1 capsule in the evening. levETIRAcet 3-0 Yes [id number] 500mg Take 1 Univers am (KEPPRA) 4-27 tablet by ity of 500 mg 00:00: mouth in [place] tablet 00 the Medical morning Branch and 1 tablet in the evening. acetaZOLAMI 2022-0 Yes [id number] 500mg Take 1 Univers DE 500 mg 4-27 capsule by ity of capsule 00:00: mouth in [place] 00 the Medical morning Branch and 1 capsule in the evening. levETIRAcet 3-0 Yes [id number] 500mg Take 1 Univers am (KEPPRA) 4-27 tablet by ity of 500 mg 00:00: mouth in [place] tablet 00 the Medical morning Branch and 1 tablet in the evening. acetaZOLAMI 2022-0 Yes [id number] 500mg Take 1 Univers [place] 500 mg 4-27 capsule by ity of capsule 00:00: mouth in [place] 00 the Medical morning Branch and 1 capsule in the evening. levETIRAcet 3-0 Yes [id number] 500mg Take 1 Univers am (KEPPRA) 4-27 tablet by ity of 500 mg 00:00: mouth in [place] tablet 00 the Medical morning Branch and 1 tablet in the evening. acetaZOLAMI 2022-0 Yes [id number] 500mg Take 1 Univers [place] 500 mg 4-27 capsule by ity of capsule 00:00: mouth in [place] 00 the Medical morning Branch and 1 capsule in the evening. levETIRAcet 2022-0 Yes [id number] 500mg Take 1 Univers am (KEPPRA) 4-27 tablet by ity of 500 mg 00:00: mouth in [place] tablet 00 the Medical morning Branch and 1 tablet in the evening. acetaZOLAMI 2022-0 Yes [id number] 500mg Take 1 Univers [place] 500 mg 4-27 capsule by ity of capsule 00:00: mouth in [place] 00 the Medical morning Branch and 1 capsule in the evening. levETIRAcet 2022-0 Yes [id number] 500mg Take 1 Univers am (KEPPRA) 4-27 tablet by ity of 500 mg 00:00: mouth in [place] tablet 00 the Medical morning Branch and 1 tablet in the evening. acetaZOLAMI 2022-0 Yes [id number] 500mg Take 1 Univers [place] 500 mg 4-27 capsule by ity of capsule 00:00: mouth in [place] 00 the Medical morning Branch and 1 capsule in the evening. levETIRAcet 2022-0 Yes [id number] 500mg Take 1 Univers am (KEPPRA) 4-27 tablet by ity of 500 mg 00:00: mouth in [place] tablet 00 the Medical morning Branch and 1 tablet in the evening. acetaZOLAMI 2022-0 Yes [id number] 500mg Take 1 Univers [place] 500 mg 4-27 capsule by ity of capsule 00:00: mouth in [place] 00 the Medical morning Branch and 1 capsule in the evening. levETIRAcet 3-0 Yes [id number] 500mg Take 1 Univers am (KEPPRA) 4-27 tablet by ity of 500 mg 00:00: mouth in [place] tablet 00 the Medical morning Branch and 1 tablet in the evening. acetaZOLAMI 2022-0 Yes [id number] 500mg Take 1 Univers [place] 500 mg 4-27 capsule by ity of capsule 00:00: mouth in [place] 00 the Medical morning Branch and 1 capsule in the evening. levETIRAcet 3-0 Yes [id number] 500mg Take 1 Univers am (KEPPRA) 4-27 tablet by ity of 500 mg 00:00: mouth in [place] tablet 00 the Medical morning Branch and 1 tablet in the evening. acetaZOLAMI 2022-0 Yes [id number] 500mg Take 1 Univers [place] 500 mg 4-27 capsule by ity of capsule 00:00: mouth in [place] 00 the Medical morning Branch and 1 capsule in the evening. levETIRAcet 2022-0 Yes [id number] 500mg Take 1 Univers am (KEPPRA) 4-27 tablet by ity of 500 mg 00:00: mouth in [place] tablet 00 the Medical morning Branch and 1 tablet in the evening. acetaZOLAMI 2022-0 Yes [id number] 500mg Take 1 Univers [place] 500 mg 4-27 capsule by ity of capsule 00:00: mouth in [place] 00 the Medical morning Branch and 1 capsule in the evening. levETIRAcet 2022-0 Yes [id number] 500mg Take 1 Univers am (KEPPRA) 4-27 tablet by ity of 500 mg 00:00: mouth in [place] tablet 00 the Medical morning Branch and 1 tablet in the evening. acetaZOLAMI 2022-0 Yes [id number] 500mg Take 1 Univers [place] 500 mg 4-27 capsule by ity of capsule 00:00: mouth in [place] 00 the Medical morning Branch and 1 capsule in the evening. levETIRAcet 2022-0 Yes [id number] 500mg Take 1 Univers am (KEPPRA) 4-27 tablet by ity of 500 mg 00:00: mouth in [place] tablet 00 the Medical morning Branch and 1 tablet in the evening. acetaZOLAMI 2022-0 Yes [id number] 500mg Take 1 Univers [place] 500 mg 4-27 capsule by ity of capsule 00:00: mouth in [place] 00 the Medical morning Branch and 1 capsule in the evening. levETIRAcet 3-0 Yes [id number] 500mg Take 1 Univers am (KEPPRA) 4-27 tablet by ity of 500 mg 00:00: mouth in [place] tablet 00 the Medical morning Branch and 1 tablet in the evening. acetaZOLAMI 3-0 Yes [id number] 500mg Take 1 Univers [place] 500 mg 4-27 capsule by ity of capsule 00:00: mouth in [place] 00 the Medical morning Branch and 1 capsule in the evening. levETIRAcet 3-0 Yes [id number] 500mg Take 1 Univers am (KEPPRA) 4-27 tablet by ity of 500 mg 00:00: mouth in [place] tablet 00 the Medical morning Branch and 1 tablet in the evening. acetaZOLAMI 2022-0 Yes [id number] 500mg Take 1 [facility] [place] 500 mg 4-27 capsule by ity of capsule 00:00: mouth in [place] 00 the Medical morning Branch and 1 capsule in the evening. levETIRAcet 2022-0 Yes [id number] 500mg Take 1 Univers am (KEPPRA) 4-27 tablet by ity of 500 mg 00:00: mouth in [place] tablet 00 the Medical morning Branch and 1 tablet in the evening. acetaZOLAMI 2022-0 Yes [id number] 500mg Take 1 [facility] [place] 500 mg 4-27 capsule by ity of capsule 00:00: mouth in [place] 00 the Medical morning Branch and 1 capsule in the evening. levETIRAcet 2022-0 Yes [id number] 500mg Take 1 Univers am (KEPPRA) 4-27 tablet by ity of 500 mg 00:00: mouth in [place] tablet 00 the Medical morning Branch and 1 tablet in the evening. acetaZOLAMI 2022-0 Yes [id number] 500mg Take 1 Univers [place] 500 mg 4-27 capsule by ity of capsule 00:00: mouth in [place] 00 the Medical morning Branch and 1 capsule in the evening. levETIRAcet 3-0 Yes [id number] 500mg Take 1 [facility] am (KEPPRA) 4-27 tablet by ity of 500 mg 00:00: mouth in [place] tablet 00 the Medical morning Branch and 1 tablet in the evening. acetaZOLAMI 3-0 Yes [id number] 500mg Take 1 [facility] [place] 500 mg 4-27 capsule by ity of capsule 00:00: mouth in [place] 00 the Medical morning Branch and 1 capsule in the evening. levETIRAcet 3-0 Yes [id number] 500mg Take 1 [facility] am (KEPPRA) 4-27 tablet by ity of 500 mg 00:00: mouth in [place] tablet 00 the Medical morning Branch and 1 tablet in the evening. acetaZOLAMI 2022-0 Yes [id number] 500mg Take 1 [facility] [place] 500 mg 4-27 capsule by ity of capsule 00:00: mouth in [place] 00 the Medical morning Branch and 1 capsule in the evening. levETIRAcet 2022-0 Yes [id number] 500mg Take 1 [facility] am (KEPPRA) 4-27 tablet by ity of 500 mg 00:00: mouth in [place] tablet 00 the Medical morning Branch and 1 tablet in the evening. acetaZOLAMI 2022-0 Yes [id number] 500mg Take 1 [facility] [place] 500 mg 4-27 capsule by ity of capsule 00:00: mouth in [place] 00 the Medical morning Branch and 1 capsule in the evening. levETIRAcet 2022-0 Yes [id number] 500mg Take 1 [facility] am (KEPPRA) 4-27 tablet by ity of 500 mg 00:00: mouth in [place] tablet 00 the Medical morning Branch and 1 tablet in the evening. acetaZOLAMI 2022-0 Yes [id number] 500mg Take 1 [facility] [place] 500 mg 4-27 capsule by ity of capsule 00:00: mouth in [place] 00 the Medical morning [place] and 1 capsule in the evening. levETIRAcet 2022-0 Yes [id number] 500mg Take 1 [facility] am (KEPPRA) 4-27 tablet by ity of 500 mg 00:00: mouth in [place] tablet 00 the Medical morning Branch and 1 tablet in the evening. acetaZOLAMI 2022-0 Yes [id number] 500mg Take 1 [facility] [place] 500 mg 4-27 capsule by ity of capsule 00:00: mouth in [place] 00 the Medical morning Branch and 1 capsule in the evening. levETIRAcet 2022-0 Yes [id number] 500mg Take 1 [facility] am (KEPPRA) 4-27 tablet by ity of 500 mg 00:00: mouth in [place] tablet 00 the Medical morning Branch and 1 tablet in the evening. acetaZOLAMI 2022-0 Yes [id number] 500mg Take 1 [facility] [place] 500 mg 4-27 capsule by ity of capsule 00:00: mouth in [place] 00 the Medical morning [place] and 1 capsule in the evening. levETIRAcet 3-0 Yes [id number] 500mg Take 1 [facility] am (KEPPRA) 4-27 tablet by ity of 500 mg 00:00: mouth in [place] tablet 00 the Medical morning Branch and 1 tablet in the evening. acetaZOLAMI 3-0 Yes [id number] 500mg Take 1 [facility] [place] 500 mg 4-27 capsule by ity of capsule 00:00: mouth in [place] 00 the Medical morning Branch and 1 capsule in the evening. levETIRAcet 2022-0 Yes [id number] 500mg Take 1 [facility] am (KEPPRA) 4-27 tablet by ity of 500 mg 00:00: mouth in [place] tablet 00 the Medical morning Branch and 1 tablet in the evening. acetaZOLAMI 2022-0 Yes [id number] 500mg Take 1 [facility] [place] 500 mg 4-27 capsule by ity of capsule 00:00: mouth in [place] 00 the Medical morning Branch and 1 capsule in the evening. levETIRAcet 2022-0 Yes [id number] 500mg Take 1 [facility] am (KEPPRA) 4-27 tablet by ity of 500 mg 00:00: mouth in [place] tablet 00 the Medical morning Branch and 1 tablet in the evening. acetaZOLAMI 2022-0 Yes [id number] 500mg Take 1 [facility] [place] 500 mg 4-27 capsule by ity of capsule 00:00: mouth in [place] 00 the Medical morning Branch and 1 capsule in the evening. levETIRAcet 2022-0 Yes [id number] 500mg Take 1 [facility] am (KEPPRA) 4-27 tablet by ity of 500 mg 00:00: mouth in [place] tablet 00 the Medical morning Branch and 1 tablet in the evening. acetaZOLAMI 2022-0 Yes [id number] 500mg Take 1 [facility] [place] 500 mg 4-27 capsule by ity of capsule 00:00: mouth in [place] 00 the Medical morning Branch and 1 capsule in the evening. levETIRAcet 3-0 Yes [id number] 500mg Take 1 [facility] am (KEPPRA) 4-27 tablet by ity of 500 mg 00:00: mouth in [place] tablet 00 the Medical morning Branch and 1 tablet in the evening. acetaZOLAMI 2022-0 Yes [id number] 500mg Take 1 [facility] [place] 500 mg 4-27 capsule by ity of capsule 00:00: mouth in [place] 00 the Medical morning Branch and 1 capsule in the evening. levETIRAcet 3-0 Yes [id number] 500mg Take 1 [facility] am (KEPPRA) 4-27 tablet by ity of 500 mg 00:00: mouth in [place] tablet 00 the Medical morning Branch and 1 tablet in the evening. acetaZOLAMI 2022-0 Yes [id number] 500mg Take 1 [facility] [place] 500 mg 4-27 capsule by ity of capsule 00:00: mouth in [place] 00 the Medical morning Branch and 1 capsule in the evening. levETIRAcet 3-0 Yes [id number] 500mg Take 1 [facility] am (KEPPRA) 4-27 tablet by ity of 500 mg 00:00: mouth in [place] tablet 00 the Medical morning Branch and 1 tablet in the evening. acetaZOLAMI 2022-0 Yes [id number] 500mg Take 1 [facility] [place] 500 mg 4-27 capsule by ity of capsule 00:00: mouth in [place] 00 the Medical morning Branch and 1 capsule in the evening. levETIRAcet 2022-0 Yes [id number] 500mg Take 1 [facility] am (KEPPRA) 4-27 tablet by ity of 500 mg 00:00: mouth in [place] tablet 00 the Medical morning Branch and 1 tablet in the evening. acetaZOLAMI 2022-0 Yes [id number] 500mg Take 1 [facility] [place] 500 mg 4-27 capsule by ity of capsule 00:00: mouth in [place] 00 the Medical morning Branch and 1 capsule in the evening. levETIRAcet 2022-0 Yes [id number] 500mg Take 1 [facility] am (KEPPRA) 4-27 tablet by ity of 500 mg 00:00: mouth in [place] tablet 00 the Medical morning Branch and 1 tablet in the evening. acetaZOLAMI 2022-0 Yes [id number] 500mg Take 1 [facility] [place] 500 mg 4-27 capsule by ity of capsule 00:00: mouth in [place] 00 the Medical morning Branch and 1 capsule in the evening. levETIRAcet 3-0 Yes [id number] 500mg Take 1 [facility] am (KEPPRA) 4-27 tablet by ity of 500 mg 00:00: mouth in [place] tablet 00 the Medical morning Branch and 1 tablet in the evening. acetaZOLAMI 3-0 Yes [id number] 500mg Take 1 [facility] [place] 500 mg 4-27 capsule by ity of capsule 00:00: mouth in [place] 00 the Medical morning Branch and 1 capsule in the evening. levETIRAcet 3-0 Yes [id number] 500mg Take 1 [facility] am (KEPPRA) 4-27 tablet by ity of 500 mg 00:00: mouth in [place] tablet 00 the Medical morning Branch and 1 tablet in the evening. acetaZOLAMI 3-0 Yes [id number] 500mg Take 1 [facility] [place] 500 mg 4-27 capsule by ity of capsule 00:00: mouth in [place] 00 the Medical morning Branch and 1 capsule in the evening. levETIRAcet 2022-0 Yes [id number] 500mg Take 1 [facility] am (KEPPRA) 4-27 tablet by ity of 500 mg 00:00: mouth in [place] tablet 00 the Medical morning Branch and 1 tablet in the evening. acetaZOLAMI 2022-0 Yes [id number] 500mg Take 1 [facility] [place] 500 mg 4-27 capsule by ity of capsule 00:00: mouth in [place] 00 the Medical morning Branch and 1 capsule in the evening. levETIRAcet 2022-0 Yes [id number] 500mg Take 1 [facility] am (KEPPRA) 4-27 tablet by ity of 500 mg 00:00: mouth in [place] tablet 00 the Medical morning Branch and 1 tablet in the evening. acetaZOLAMI 2022-0 Yes [id number] 500mg Take 1 [facility] [place] 500 mg 4-27 capsule by ity of capsule 00:00: mouth in [place] 00 the Medical morning Branch and 1 capsule in the evening. levETIRAcet 2022-0 Yes [id number] 500mg Take 1 [facility] am (KEPPRA) 4-27 tablet by ity of 500 mg 00:00: mouth in [place] tablet 00 the Medical morning Branch and 1 tablet in the evening. acetaZOLAMI 2022-0 Yes [id number] 500mg Take 1 [facility] [place] 500 mg 4-27 capsule by ity of capsule 00:00: mouth in [place] 00 the Medical morning Branch and 1 capsule in the evening. levETIRAcet 3-0 Yes [id number] 500mg Take 1 [facility] am (KEPPRA) 4-27 tablet by ity of 500 mg 00:00: mouth in [place] tablet 00 the Medical morning Branch and 1 tablet in the evening. acetaZOLAMI 3-0 Yes [id number] 500mg Take 1 [facility] [place] 500 mg 4-27 capsule by ity of capsule 00:00: mouth in [place] 00 the Medical morning Branch and 1 capsule in the evening. levETIRAcet 3-0 Yes [id number] 500mg Take 1 [facility] am (KEPPRA) 4-27 tablet by ity of 500 mg 00:00: mouth in [place] tablet 00 the Medical morning Branch and 1 tablet in the evening. acetaZOLAMI 2022-0 Yes [id number] 500mg Take 1 [facility] [place] 500 mg 4-27 capsule by ity of capsule 00:00: mouth in [place] 00 the Medical morning Branch and 1 capsule in the evening. levETIRAcet 3-0 Yes [id number] 500mg Take 1 [facility] am (KEPPRA) 4-27 tablet by ity of 500 mg 00:00: mouth in [place] tablet 00 the Medical morning Branch and 1 tablet in the evening. acetaZOLAMI 2022-0 Yes [id number] 500mg Take 1 [facility] [place] 500 mg 4-27 capsule by ity of capsule 00:00: mouth in [place] 00 the Medical morning Branch and 1 capsule in the evening. levETIRAcet 2022-0 Yes [id number] 500mg Take 1 [facility] am (KEPPRA) 4-27 tablet by ity of 500 mg 00:00: mouth in [place] tablet 00 the Medical morning Branch and 1 tablet in the evening. acetaZOLAMI 2022-0 Yes [id number] 500mg Take 1 [facility] [place] 500 mg 4-27 capsule by ity of capsule 00:00: mouth in [place] 00 the Medical morning Branch and 1 capsule in the evening. levETIRAcet 2022-0 Yes [id number] 500mg Take 1 [facility] am (KEPPRA) 4-27 tablet by ity of 500 mg 00:00: mouth in [place] tablet 00 the Medical morning Branch and 1 tablet in the evening. acetaZOLAMI 2022-0 Yes [id number] 500mg Take 1 [facility] [place] 500 mg 4-27 capsule by ity of capsule 00:00: mouth in [place] 00 the Medical morning Branch and 1 capsule in the evening. levETIRAcet 3-0 Yes [id number] 500mg Take 1 [facility] am (KEPPRA) 4-27 tablet by ity of 500 mg 00:00: mouth in [place] tablet 00 the Medical morning Branch and 1 tablet in the evening. acetaZOLAMI 3-0 Yes [id number] 500mg Take 1 [facility] [place] 500 mg 4-27 capsule by ity of capsule 00:00: mouth in [place] 00 the Medical morning Branch and 1 capsule in the evening. levETIRAcet 3-0 Yes [id number] 500mg Take 1 [facility] am (KEPPRA) 4-27 tablet by ity of 500 mg 00:00: mouth in [place] tablet 00 the Medical morning Branch and 1 tablet in the evening. acetaZOLAMI 2022-0 Yes [id number] 500mg Take 1 [facility] [place] 500 mg 4-27 capsule by ity of capsule 00:00: mouth in [place] 00 the Medical morning Branch and 1 capsule in the evening. levETIRAcet 2022-0 Yes [id number] 500mg Take 1 [facility] am (KEPPRA) 4-27 tablet by ity of 500 mg 00:00: mouth in [place] tablet 00 the Medical morning Branch and 1 tablet in the evening. acetaZOLAMI 2022-0 Yes [id number] 500mg Take 1 [facility] [place] 500 mg 4-27 capsule by ity of capsule 00:00: mouth in [place] 00 the Medical morning Branch and 1 capsule in the evening. levETIRAcet 2022-0 Yes [id number] 500mg Take 1 [facility] am (KEPPRA) 4-27 tablet by ity of 500 mg 00:00: mouth in [place] tablet 00 the Medical morning Branch and 1 tablet in the evening. acetaZOLAMI 2022-0 Yes [id number] 500mg Take 1 [facility] [place] 500 mg 4-27 capsule by ity of capsule 00:00: mouth in [place] 00 the Medical morning Branch and 1 capsule in the evening. levETIRAcet 2022-0 Yes [id number] 500mg Take 1 [facility] am (KEPPRA) 4-27 tablet by ity of 500 mg 00:00: mouth in [place] tablet 00 the Medical morning Branch and 1 tablet in the evening. acetaZOLAMI 2022-0 Yes [id number] 500mg Take 1 [facility] [place] 500 mg 4-27 capsule by ity of capsule 00:00: mouth in [place] 00 the Medical morning Branch and 1 capsule in the evening. levETIRAcet 3-0 Yes [id number] 500mg Take 1 [facility] am (KEPPRA) 4-27 tablet by ity of 500 mg 00:00: mouth in [place] tablet 00 the Medical morning Branch and 1 tablet in the evening. acetaZOLAMI 3-0 Yes [id number] 500mg Take 1 [facility] [place] 500 mg 4-27 capsule by ity of capsule 00:00: mouth in [place] 00 the Medical morning Branch and 1 capsule in the evening. levETIRAcet 2023-0 Yes [id number] 500mg Take 1 [facility] am (KEPPRA) 4-27 tablet by ity of 500 mg 00:00: mouth in [place] tablet 00 the Medical morning Branch and 1 tablet in the evening. acetaZOLAMI 2022-0 Yes [id number] 500mg Take 1 [facility] [place] 500 mg 4-27 capsule by ity of capsule 00:00: mouth in [place] 00 the Medical morning Branch and 1 capsule in the evening. levETIRAcet 3-0 Yes [id number] 500mg Take 1 [facility] am (KEPPRA) 4-27 tablet by ity of 500 mg 00:00: mouth in [place] tablet 00 the Medical morning Branch and 1 tablet in the evening. acetaZOLAMI 2022-0 Yes [id number] 500mg Take 1 [facility] [place] 500 mg 4-27 capsule by ity of capsule 00:00: mouth in [place] 00 the Medical morning Branch and 1 capsule in the evening. levETIRAcet 2022-0 Yes [id number] 500mg Take 1 [facility] am (KEPPRA) 4-27 tablet by ity of 500 mg 00:00: mouth in [place] tablet 00 the Medical morning Branch and 1 tablet in the evening. acetaZOLAMI 2022-0 Yes [id number] 500mg Take 1 [facility] [place] 500 mg 4-27 capsule by ity of capsule 00:00: mouth in [place] 00 the Medical morning Branch and 1 capsule in the evening. levETIRAcet 3-0 Yes [id number] 500mg Take 1 [facility] am (KEPPRA) 4-27 tablet by ity of 500 mg 00:00: mouth in [place] tablet 00 the Medical morning Branch and 1 tablet in the evening. acetaZOLAMI 2022-0 Yes [id number] 500mg Take 1 [facility] [place] 500 mg 4-27 capsule by ity of capsule 00:00: mouth in [place] 00 the Medical morning Branch and 1 capsule in the evening. levETIRAcet 3-0 Yes [id number] 500mg Take 1 [facility] am (KEPPRA) 4-27 tablet by ity of 500 mg 00:00: mouth in [place] tablet 00 the Medical morning Branch and 1 tablet in the evening. acetaZOLAMI 3-0 Yes [id number] 500mg Take 1 [facility] [place] 500 mg 4-27 capsule by ity of capsule 00:00: mouth in [place] 00 the Medical morning Branch and 1 capsule in the evening. levETIRAcet 2023-0 Yes [id number] 500mg Take 1 [facility] am (KEPPRA) 4-27 tablet by ity of 500 mg 00:00: mouth in [place] tablet 00 the Medical morning Branch and 1 tablet in the evening. acetaZOLAMI 3-0 Yes [id number] 500mg Take 1 [facility] [place] 500 mg 4-27 capsule by ity of capsule 00:00: mouth in [place] 00 the Medical morning Branch and 1 capsule in the evening. levETIRAcet 2023-0 Yes [id number] 500mg Take 1 [facility] am (KEPPRA) 4-27 tablet by ity of 500 mg 00:00: mouth in [place] tablet 00 the Medical morning Branch and 1 tablet in the evening. acetaZOLAMI 2022-0 Yes [id number] 500mg Take 1 [facility] [place] 500 mg 4-27 capsule by ity of capsule 00:00: mouth in [place] [address] the Medical morning Branch and 1 capsule in the evening. acetaZOLAMI 2022-0 Yes [id number] 500mg Take 1 [facility] [place] 500 mg 4-27 capsule by ity of capsule 00:00: mouth in [place] [address] the Medical morning Branch and 1 capsule in the evening. acetaZOLAMI 3-0 Yes [id number] 500mg Take 1 [facility] [place] 500 mg 4-27 capsule by ity of capsule 00:00: mouth in [place] [address] the Medical morning Branch and 1 capsule in the evening. acetaZOLAMI 2022-0 Yes [id number] 500mg Take 1 [facility] [place] 500 mg 4-27 capsule by ity of capsule 00:00: mouth in [place] [address] the Medical morning Branch and 1 capsule in the evening. acetaZOLAMI 3-0 Yes [id number] 500mg Take 1 [facility] [place] 500 mg 4-27 capsule by ity of capsule 00:00: mouth in [place] [address] the Medical morning Branch and 1 capsule in the evening. acetaZOLAMI 3-0 Yes [id number] 500mg Take 1 [facility] [place] 500 mg 4-27 capsule by ity of capsule 00:00: mouth in [place] [address] the Medical morning Branch and 1 capsule in the evening. acetaZOLAMI 3-0 Yes [id number] 500mg Take 1 [facility] [place] 500 mg 4-27 capsule by ity of capsule 00:00: mouth in [place] [address] the Medical morning Branch and 1 capsule in the evening. acetaZOLAMI 2023-0 Yes [id number] 500mg Take 1 [facility] [place] 500 mg 4-27 capsule by ity of capsule 00:00: mouth in [place] 00 the Medical morning Branch and 1 capsule in the evening. acetaZOLAMI 2023-0 Yes [id number] 500mg Take 1 [facility] [place] 500 mg 4-27 capsule by ity of capsule 00:00: mouth in [place] 00 the Medical morning Branch and 1 capsule in the evening. acetaZOLAMI 2023-0 Yes [id number] 500mg Take 1 [facility] [place] 500 mg 4-27 capsule by ity of capsule 00:00: mouth in [place] 00 the Medical morning Branch and 1 capsule in the evening. acetaZOLAMI 2023-0 Yes [id number] 500mg Take 1 [facility] [place] 500 mg 4-27 capsule by ity of capsule 00:00: mouth in [place] 00 the Medical morning Branch and 1 capsule in the evening. acetaZOLAMI 3-0 Yes [id number] 500mg Take 1 [facility] [place] 500 mg 4-27 capsule by ity of capsule 00:00: mouth in [place] 00 the Medical morning Branch and 1 capsule in the evening. acetaZOLAMI 3-0 Yes [id number] 500mg Take 1 [facility] [place] 500 mg 4-27 capsule by ity of capsule 00:00: mouth in [place] 00 the Medical morning Branch and 1 capsule in the evening. acetaZOLAMI 3-0 Yes [id number] 500mg Take 1 [facility] [place] 500 mg 4-27 capsule by ity of capsule 00:00: mouth in [place] 00 the Medical morning Branch and 1 capsule in the evening. acetaZOLAMI 3-0 Yes [id number] 500mg Take 1 [facility] [place] 500 mg 4-27 capsule by ity of capsule 00:00: mouth in [place] 00 the Medical morning Branch and 1 capsule in the evening. acetaZOLAMI 3-0 Yes [id number] 500mg Take 1 [facility] [place] 500 mg 4-27 capsule by ity of capsule 00:00: mouth in [place] 00 the Medical morning Branch and 1 capsule in the evening. acetaZOLAMI 2023-0 Yes [id number] 500mg Take 1 [facility] [place] 500 mg 4-27 capsule by ity of capsule 00:00: mouth in [place] 00 the Medical morning Branch and 1 capsule in the evening. acetaZOLAMI 2023-0 Yes [id number] 500mg Take 1 [facility] [place] 500 mg 4-27 capsule by ity of capsule 00:00: mouth in [place] 00 the Medical morning Branch and 1 capsule in the evening. acetaZOLAMI 2022-0 Yes [id number] 500mg Take 1 [facility] [place] 500 mg 4-27 capsule by ity of capsule 00:00: mouth in [place] 00 the Medical morning Branch and 1 capsule in the evening. acetaZOLAMI 2022-0 Yes [id number] 500mg Take 1 [facility] [place] 500 mg 4-27 capsule by ity of capsule 00:00: mouth in [place] 00 the Medical morning Branch and 1 capsule in the evening. levETIRAcet 2022-2022- No [id number] 500mg Take 1 [facility] am (KEPPRA) 4-27 08-18 tablet by it y of 500 mg 00:00: 00:00 mouth in [place] tablet 00 :00 the Medical morning Branch and 1 tablet in the evening. doxycycline 2022-0 2022- No [id number] 100mg Take 1 [facility] hyclate 100 4-27 05-05 tablet by it y of mg tablet 00:00: 00:00 mouth in [facility] as 00 :00 the Medical morning Branch and 1 tablet in the evening. cephALEXin 2022-0 2022- No [id number] 500mg Take 1 [facility] 500 mg 4-27 05-05 capsule by ity of capsule 00:00: 00:00 mouth 4 [place] 00 :00 (four) Medical times Branch daily. doxycycline 2022-0 2022- No [id number] 100mg Take 1 [facility] hyclate 100 4-27 05-05 tablet by it y of mg tablet 00:00: 00:00 mouth in [place] 00 :00 the Medical morning Branch and 1 tablet in the evening. cephALEXin 2022-2022- No [id number] 500mg Take 1 [facility] 500 mg 4-27 05-05 capsule by ity of capsule 00:00: 00:00 mouth 4 [place] 00 :00 (four) Medical times Branch daily. Methylpredn 2022-2022- No 4mg [Order 1 U mikey zaidione 10-28 Start] ity of (MEDROL) 00:48: 12:59 Name: [place] tablet 4 mg 33 :00 Methylpred Me dical nisolone Branch (MEDROL) tablet 4 mg Signed Summary: 4 mg, Oral, ONCE, 1 dose, On Sun10/27/22 at 2000, Routine [Order 1 End] [Order 2 Start] Name: Methylpred nisolone (MEDROL) tablet 8 mg Signed Summary: 8 mg, Oral, ONCE, 1 dose, On 10/28/22 at 0200, Routine [Order 2 End] [Order 3 Start] Name: Methylpred nisolone (MEDROL) tablet 4 mg Signed Summary: 4 mg, Oral, ONCE, 1 dose, On 10/28/22 at 0800, Routine [Order 3 End] [Order 4 Start] Name: Methylpred nisolone (MEDROL) tablet 4 mg Signed Summary: 4 mg, Oral, ONCE, 1 dose, On 10/28/22 at 1400, Routine [Order 4 End] [Order 5 Start] Name: Methylpred nisolone (MEDROL) tablet 4 mg Signed Summary: 4 mg, Oral, ONCE, 1 dose, On 10/28/22 at 2000, Routine [Order 5 End] [Order 6 Start] Name: Methylpred nisolone (MEDROL) tablet 8 mg Signed Summary: 8 mg, Oral, ONCE, 1 dose, On 10/29/22 at 0200, Routine [Order 6 End] [Order 7 Start] Name: Methylpred nisolone (MEDROL) tablet 4 mg Signed Summary: 4 mg, Oral, Q6H TAPER, 4 doses, First dose on Sun10/29/22 at 0800, Last dose on Sun10/30/22 at 0200, Routine [Order 7 End] [Order 8 Start] Name: Methylpred nisolone (MEDROL) tablet 4 mg Signed Summary: 4 mg, Oral, Q8H TAPER, 3 doses, First dose on Sun10/30/22 at 1000, Last dose on Sun10/31/22 at 0200, Routine [Order 8 End] levetiracet 2023-0 Yes 500mg Take 500 U nivers am (KEPPRA 4-21 mg by ity of ORAL) 16:46: mouth 2 [place] 15 (two) Medical times Branch daily. levetiracet 2023-0 Yes 500mg Take 500 U nivers am (KEPPRA 4-21 mg by ity of ORAL) 16:46: mouth 2 [place] 15 (two) Medical times Branch daily. levetiracet 2023-0 Yes 500mg Take 500 U nivers am (KEPPRA 4-21 mg by ity of ORAL) 16:46: mouth 2 [place] 15 (two) Medical times Branch daily. oxyCODONE 0 Yes 5mg 5 mg, Univers immediate 10-27 Oral, ity of release 16:45: Q4HPRN, [place] tablet 5 mg 00 Starting Medi janet on Sun Branch 10/27/22 at 1145, Until Discontinu ed, Routine, Pain (scale 7-10), Pain (scale 4-6)
Fa culty member approving Restricted medication : BRIAN ROJAS proMETHazin 2022- No 50mg 50 mg, Uni vers e 10-27 Oral, Q6H, ity of (PHENERGAN) 13:00: 10:59 8 doses, [place] tablet 50 00 :00 First dose Medi janet mg (after Branch last modificati on) on Sun10/27/22 at 0800, Last dose on Sun10/29/22 at 0000, Routine levothyroxi Yes 100ug 100 mcg, U nivers ne 10-27 Oral, ity of (SYNTHROID) 11:00: QAM-0600, [place] tablet 100 00 First dose Med ical mcg on Sun Branch 10/27/22 at 0600, Until Discontinu ed, Routine Total 2022- No at 52 Univers Parenteral 10-27 04-22 mL/hr, ity of Nutrition 02:00: 01:59 1,250 mL, [place] 00 :00 TPNCONTINU Medical OUS, Branch Starting on Sun10/26/22 at 2100, Until Sun10/27/22 at 2059 proMETHazin 2022- No 12.5mg 12.5 mg, Univers e 10-26 IV ity of (PHENERGAN) 20:37: 12:30 Piggyback, [place] 12.5 mg in 43 :58 at 200 Medical NS 50 mL IV mL/hr Branch piggyback Administer (CNR) over 15 Minutes, Q8HPRN, Starting on Sun10/26/22 at 1537, Until Sun10/27/22 at 0730, Routine, N/V unresponsi ve to Ondansetro n diazePAM 2022-0 Yes 5mg 5 mg, Univers (VALIUM) 10-26 Oral, TID, ity o f tablet 5 mg 19:00: First dose [place] 00 (after Medical last Branch modificati on) on [facility] 10/26/22 at 1400, Until Discontinu ed, Routine LORazepam 2022-0 2022- No 1mg 1 mg, Slow U nivers (ATIVAN) 4-20 04-20 IV Push, ity of injection 1 17:12: 17:15 ONCE PRN, [place] mg 56 :00 1 dose, Medical Starting Branch on [facility] 10/26/22 at 1212, Until [facility] 10/26/22 at 2359, Routine, MRI LORazepam 2022-0 2022- No 1mg 1 mg, Slow U nivers (ATIVAN) 10-26 04-20 IV Push, ity of injection 1 17:00: 17:06 ONCE, 1 [place] mg 00 :00 dose, On [facility] 10/26/22 at 1200, Routine pantoprazol 0 Yes 40mg 40 mg, Univ ers e 4-20 Oral, ity of (PROTONIX) 14:00: DAILY, [place] EC tablet 00 First dose Medi janet 40 [facility] on [facility] 10/26/22 at 0900, Until Discontinu ed, Routine nadoloL 0 Yes 40mg 40 mg, Univers (CORGARD) 4-20 Oral, ity of tablet 40 14:00: DAILY, [place] mg 00 First dose Medical on [facility] 10/26/22 at 0900, Until Discontinu ed, Routine pramipexole 2022-0 Yes .25mg 0.25 mg, U nivers (MIRAPEX) 4-20 Oral, BID, ity of tablet 0.25 13:00: First dose [place] mg 00 on [facility] 10/26/22 at Branch 0800, Until Discontinu ed, Routine levETIRAcet 2022-0 Yes 500mg 500 mg, Un bry am (KEPPRA) 4-20 Oral, BID, it y of tablet 500 13:00: First dose [place] mg 00 on [facility] 10/26/22 at Branch 0800, Until Discontinu ed acetaZOLAMI 2022-0 Yes 250mg 250 mg, Un bry DE (DIAMOX) 4-20 Oral, TID, it y of tablet 250 13:00: First dose [place] mg 00 on [facility] 10/26/22 at Branch 0800, Until Discontinu ed proMETHazin 2022- No 25mg 25 mg, IV Univers e 10-26 Piggyback, ity of (PHENERGAN) 13:00: 13:14 at 200 [place] 25 mg in [place] 00 :00 mL/hr Medical 50 mL IV Administer Branc h piggyback over 15 (CNR) Minutes, ONCE NOW, 1 dose, On [facility] 10/26/22 at 0800, Routine FENTanyl PF 2022- No 50ug 50 mcg, Un bry (SUBLIMAZE 10-26 Slow IV ity o f (PF)) 13:00: 12:20 Push, [place] injection 00 :00 ONCE, 1 Medical 50 mcg dose, On Branch [facility] 10/26/22 at 0800, Routine oxyCODONE 2022- No 5mg 5 mg, Univer s immediate 10-26 Oral, ity of release 12:13: [facility] [place] tablet 5 mg 11 :34 Starting Medi janet on [facility] Branch 10/26/22 at 0713, Until 10/27/22 at 1130, Routine, Pain (scale 7-10), Pain (scale 4-6)
[facility] member approving Restricted medication : BRIAN ROJAS morpHINE (4 2022- No 4mg 4 mg, Slow [facility] mg/mL) 10-26 IV Push, ity of injection 4 12:12: 11:40 Q4HPRN, [place] mg 59 :11 Starting Medical on [place] [facility] 10/26/22 at 0712, Until 10/27/22 at 0640, Routine, [facility] pain acetaminoph Yes 650mg 650 mg, Un bry en 10-26 Oral, ity of (TYLENOL) 11:41: [facility] [place] [facility] 650 11 Starting Medic al mg on [facility] Branch 10/26/22 at 0641, Until Discontinu ed, Routine, Pain (scale 1-3) tiZANidine Yes 4mg 4 mg, Univer s (ZANAFLEX) 10-26 Oral, ity of tablet 4 mg 11:41: Q6HPRN, [place] as 11 Starting Medical on [place] [facility] 10/26/22 at 0641, Until Discontinu ed, Routine, Muscle Spasms iopamidol 2022- No 100mL 100 mL, Uni vers (ISOVUE 10-26 Intravenou ity o f 370-500 mL) 04:30: 03:33 s, ONCE, 1 [place] injection 00 :00 dose, On Medica l 100 mL Wed Branch 10/25/22 at 2330, Routine methocarbam No 1000mg 1,000 mg, Univers oL 10-26 Intravenou ity of (ROBAXIN) 03:30: 03:09 s, ONCE, 1 [place] injection 00 :00 dose, On Medica l 1,000 mg [facility] Branch 10/25/22 at 2230, Routine proMETHazin 2022- No 25mg 25 mg, IV Univers e 10-26 Piggyback, ity of (PHENERGAN) 02:45: 03:18 at 200 [place] as 25 mg in [place] 00 :00 mL/hr Medical 50 mL IV Administer Branc h piggyback over 15 (CNR) Minutes, ONCE, 1 dose, On [facility] 10/25/22 at 2145, VESNA morpHINE (4 No 4mg 4 mg, Slow Univers mg/mL) 10-26 IV Push, ity of injection 4 00:30: 00:50 ONCE, 1 [place] mg 00 :00 dose, On Medical [facility] Branch 10/25/22 at 1930, STAT tc 2022- No [id number] 45mCi 45 Univer s 99m-tetrofo 10-19- millicurie i ty of smin 19:45: 17:52 , [place] (MYOVIEW) 00 :00 Intravenou Medi janet injection s, ONCE, 1 Bran ch 45 [facility], [facility], Routine tc 2022- No [id number] 15mCi 15 Univers 99m-tetrofo -19 10-13 millicurie i ty of smin 19:45: 16:30 , [place] (MYOVIEW) 00 :00 Intravenou Medi janet injection s, ONCE, 1 [place] ch 15 dose, On millicurie [place] 10/19/22 at 1445, Routine regadenoson 3- No [id number] .4mg 0.4 mg, Univers (LEXISCAN) 10-19 Slow IV ity o f injection 19:30: 17:52 Push, [place] 0.4 mg 00 :00 ONCE, 1 Medical dose, On Branch [place] 10/19/22 at 1430, Routine
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 Restricted medication : CARLOS NATHANIELWILLIAN iopamidol 2022- No [id number] 80mL 80 mL, Univers (ISOVUE 10-10 Intravenou ity o f 370-500 mL) 16:30: 15:36 s, ONCE, 1 [place] injection 00 :00 dose, On Medica l 80 mL 10/10/22 Branch at 1130, Routine ACETAZOLAMI 0 Yes [id number] TAKE 1 Univers [place] 500 mg 3-31 CAPSULE BY ity of capsule 00:00: MOUTH [place] 00 TWICE A Medical DAY Branch ACETAZOLAMI 2022-0 Yes [id number] TAKE 1 Univers [place] 500 mg 3-31 CAPSULE BY ity of capsule 00:00: MOUTH [place] 00 TWICE A Medical DAY Branch ACETAZOLAMI 2022-0 Yes [id number] TAKE 1 Univers [place] 500 mg 3-31 CAPSULE BY ity of capsule 00:00: MOUTH [place] 00 TWICE A Medical DAY Branch ACETAZOLAMI 2022-0 Yes [id number] TAKE 1 [facility] [place] 500 mg 3-31 CAPSULE BY ity of capsule 00:00: MOUTH [place] 00 TWICE A Medical DAY Branch ACETAZOLAMI 2023-0 Yes [id number] TAKE 1 [facility] [place] 500 mg 3-31 CAPSULE BY ity of capsule 00:00: MOUTH [place] 00 TWICE A Medical DAY Branch ACETAZOLAMI 2023-0 Yes [id number] TAKE 1 [facility] [place] 500 mg 3-31 CAPSULE BY ity of capsule 00:00: MOUTH [place] 00 TWICE A Medical DAY Branch ACETAZOLAMI 3-0 Yes [id number] TAKE 1 [facility] [place] 500 mg 3-31 CAPSULE BY ity of capsule 00:00: MOUTH [place] 00 TWICE A Medical DAY Branch ACETAZOLAMI 202-0 Yes [id number] TAKE 1 [facility] [place] 500 mg 3-31 CAPSULE BY ity of capsule 00:00: MOUTH [place] 00 TWICE A Medical DAY Branch ACETAZOLAMI 2023-0 Yes [id number] TAKE 1 [facility] [place] 500 mg 3-31 CAPSULE BY ity of capsule 00:00: MOUTH [place] 00 TWICE A Medical DAY Branch ACETAZOLAMI 3-0 Yes [id number] TAKE 1 [facility] [place] 500 mg 3-31 CAPSULE BY ity of capsule 00:00: MOUTH [place] 00 TWICE A Medical DAY Branch ACETAZOLAMI 3-0 Yes [id number] TAKE 1 [facility] [place] 500 mg 3-31 CAPSULE BY ity of capsule 00:00: MOUTH [place] TWICE A Medical DAY Branch ACETAZOLAMI 3-0 Yes [id number] TAKE 1 [facility] [place] 500 mg 3-31 CAPSULE BY ity of capsule 00:00: MOUTH [place] 00 TWICE A Medical DAY Branch ACETAZOLAMI 2022-0 Yes [id number] TAKE 1 [facility] [place] 500 mg 3-31 CAPSULE BY ity of capsule 00:00: MOUTH [place] TWICE A Medical DAY Branch ACETAZOLAMI 2022-0 Yes [id number] TAKE 1 [facility] [place] 500 mg 3-31 CAPSULE BY ity of capsule 00:00: MOUTH [place] 00 TWICE A Medical DAY Branch ACETAZOLAMI 2022-0 Yes [id number] TAKE 1 [facility] [place] 500 mg 3-31 CAPSULE BY ity of capsule 00:00: MOUTH [place] 00 TWICE A Medical DAY Branch ACETAZOLAMI 2022-0 Yes [id number] TAKE 1 [facility] [place] 500 mg 3-31 CAPSULE BY ity of capsule 00:00: MOUTH [place] 00 TWICE A Medical DAY Branch ACETAZOLAMI 2022-0 Yes [id number] TAKE 1 [facility] [place] 500 mg 3-31 CAPSULE BY ity of capsule 00:00: MOUTH [place] 00 TWICE A Medical DAY Branch ACETAZOLAMI 2023-0 2023- No [id number] TAKE 1 Univers [place] 500 mg 3-31 04-27 CAPSULE BY ity of capsule 00:00: 00:00 MOUTH [place] 00 :00 TWICE A Medical DAY Branch ACETAZOLAMI 2023-0 2023- No [id number] TAKE 1 Univers [place] 500 mg 3-31 04-27 CAPSULE BY ity of capsule 00:00: 00:00 MOUTH [place] 00 :00 TWICE A Medical DAY Branch pantoprazol 2022-0 Yes [id number] 40mg Take 1 Univers e 40 mg EC 3-20 tablet by ity of tablet 00:00: mouth in [place] 00 the Medical morning. Branch fluticasone 2022-0 Yes [id number] 1{spray Use 1 Univers propionate 3-20 } [place] in ity o f 50 00:00: each [place] mcg/actuati 00 nostril in Me dical on nasal the Branch spray morning and 1 [place] in the evening. pantoprazol 2022-0 Yes [id number] 40mg Take 1 Univers e 40 mg EC 3-20 tablet by ity of tablet 00:00: mouth in [place] 00 the Medical morning. Branch fluticasone 2022-0 Yes [id number] 1{spray Use 1 Univers propionate 3-20 } [place] in ity o f 50 00:00: each [place] mcg/actuati 00 nostril in Me dical on nasal the Branch spray morning and 1 [place] in the evening. pantoprazol 2022-0 Yes [id number] 40mg Take 1 Univers e 40 mg EC 3-20 tablet by ity of tablet 00:00: mouth in [place] 00 the Medical morning. Branch fluticasone 2022-0 Yes [id number] 1{spray Use 1 Univers propionate 3-20 } [place] in it o f 50 00:00: each [place] mcg/actuati 00 nostril in Me dical on nasal the Branch spray morning and 1 [place] in the evening. pantoprazol 2022-0 Yes [id number] 40mg Take 1 Univers e 40 mg EC 3-20 tablet by ity of tablet 00:00: mouth in [place] 00 the Medical morning. Branch fluticasone 2022-0 Yes [id number] 1{spray Use 1 Univers propionate 3-20 } [place] in ity o f 50 00:00: each [place] mcg/actuati 00 nostril in Me dical on nasal the Branch spray morning and 1 [place] in the evening. pantoprazol 2022-0 Yes [id number] 40mg Take 1 Univers e 40 mg EC 3-20 tablet by ity of tablet 00:00: mouth in [place] 00 the Medical morning. Branch fluticasone 2022-0 Yes [id number] 1{spray Use 1 Univers propionate 3-20 } [place] in ity o f 50 00:00: each [place] mcg/actuati 00 nostril in Me dical on nasal the Branch spray morning and 1 [place] in the evening. pantoprazol 3-0 Yes [id number] 40mg Take 1 Univers e 40 mg EC 3-20 tablet by ity of tablet 00:00: mouth in [place] 00 the Medical morning. Branch fluticasone 2022-0 Yes [id number] 1{spray Use 1 Univers propionate 3-20 } [place] in ity o f 50 00:00: each [place] mcg/actuati 00 nostril in Me dical on nasal the Branch spray morning and 1 [place] in the evening. pantoprazol 3-0 Yes [id number] 40mg Take 1 Univers e 40 mg EC 3-20 tablet by ity of tablet 00:00: mouth in [place] 00 the Medical morning. Branch fluticasone 2022-0 Yes [id number] 1{spray Use 1 Univers propionate 3-20 } [place] in ity o f 50 00:00: each [place] mcg/actuati 00 nostril in Me dical on nasal the Branch spray morning and 1 [place] in the evening. pantoprazol 2022-0 Yes [id number] 40mg Take 1 Univers e 40 mg EC 3-20 tablet by ity of tablet 00:00: mouth in [place] 00 the Medical morning. Branch fluticasone 2022-0 Yes [id number] 1{spray Use 1 Univers propionate 3-20 } [place] in ity o f 50 00:00: each [place] mcg/actuati 00 nostril in Me dical on nasal the Branch spray morning and 1 [place] in the evening. pantoprazol 2022-0 Yes [id number] 40mg Take 1 Univers e 40 mg EC 3-20 tablet by ity of tablet 00:00: mouth in [place] 00 the Medical morning. Branch fluticasone 2022-0 Yes [id number] 1{spray Use 1 Univers propionate 3-20 } [place] in ity o f 50 00:00: each [place] mcg/actuati 00 nostril in Me dical on nasal the Branch spray morning and 1 [place] in the evening. pantoprazol 3-0 Yes [id number] 40mg Take 1 Univers e 40 mg EC 3-20 tablet by ity of tablet 00:00: mouth in [place] 00 the Medical morning. Branch fluticasone 2022-0 Yes [id number] 1{spray Use 1 Univers propionate 3-20 } [place] in ity o f 50 00:00: each [place] mcg/actuati 00 nostril in Me dical on nasal the Branch spray morning and 1 [place] in the evening. pantoprazol 2023-0 Yes [id number] 40mg Take 1 Univers e 40 mg EC 3-20 tablet by ity of tablet 00:00: mouth in [place] 00 the Medical morning. Branch fluticasone 2022-0 Yes [id number] 1{spray Use 1 Univers propionate 3-20 } [place] in ity o f 50 00:00: each [place] mcg/actuati 00 nostril in Me dical on nasal the Branch spray morning and 1 [place] in the evening. pantoprazol 2022-0 Yes [id number] 40mg Take 1 Univers e 40 mg EC 3-20 tablet by ity of tablet 00:00: mouth in [place] 00 the Medical morning. Branch fluticasone 2022-0 Yes [id number] 1{spray Use 1 Univers propionate 3-20 } [place] in ity o f 50 00:00: each [place] mcg/actuati 00 nostril in Me dical on nasal the Branch spray morning and 1 [place] in the evening. pantoprazol 2022-0 Yes [id number] 40mg Take 1 Univers e 40 mg EC 3-20 tablet by ity of tablet 00:00: mouth in [place] 00 the Medical morning. Branch fluticasone 2022-0 Yes [id number] 1{spray Use 1 Univers propionate 3-20 } [place] in ity o f 50 00:00: each [place] mcg/actuati 00 nostril in Me dical on nasal the Branch spray morning and 1 [place] in the evening. pantoprazol 2022-0 Yes [id number] 40mg Take 1 Univers e 40 mg EC 3-20 tablet by ity of tablet 00:00: mouth in [place] 00 the Medical morning. Branch fluticasone 2022-0 Yes [id number] 1{spray Use 1 Univers propionate 3-20 } [place] in ity o f 50 00:00: each [place] mcg/actuati 00 nostril in Me dical on nasal the Branch spray morning and 1 [place] in the evening. pantoprazol 2022-0 Yes [id number] 40mg Take 1 Univers e 40 mg EC 3-20 tablet by ity of tablet 00:00: mouth in [place] 00 the Medical morning. Branch fluticasone 2022-0 Yes [id number] 1{spray Use 1 Univers propionate 3-20 } [place] in ity o f 50 00:00: each [place] mcg/actuati 00 nostril in Me dical on nasal the Branch spray morning and 1 [place] in the evening. pantoprazol 2022-0 Yes [id number] 40mg Take 1 Univers e 40 mg EC 3-20 tablet by ity of tablet 00:00: mouth in [place] 00 the Medical morning. Branch fluticasone 2022-0 Yes [id number] 1{spray Use 1 Univers propionate 3-20 } [place] in ity o f 50 00:00: each [place] mcg/actuati 00 nostril in Me dical on nasal the Branch spray morning and 1 [place] in the evening. pantoprazol 2022-0 Yes [id number] 40mg Take 1 Univers e 40 mg EC 3-20 tablet by ity of tablet 00:00: mouth in [place] 00 the Medical morning. Branch fluticasone 2022-0 Yes [id number] 1{spray Use 1 Univers propionate 3-20 } [place] in ity o f 50 00:00: each [place] mcg/actuati 00 nostril in Me dical on nasal the Branch spray morning and 1 [place] in the evening. pantoprazol 2022-0 Yes [id number] 40mg Take 1 Univers e 40 mg EC 3-20 tablet by ity of tablet 00:00: mouth in [place] 00 the Medical morning. Branch fluticasone 2022-0 Yes [id number] 1{spray Use 1 Univers propionate 3-20 } [place] in ity o f 50 00:00: each [place] mcg/actuati 00 nostril in Me dical on nasal the Branch spray morning and 1 [place] in the evening. pantoprazol 2022-0 Yes [id number] 40mg Take 1 Univers e 40 mg EC 3-20 tablet by ity of tablet 00:00: mouth in [place] 00 the Medical morning. Branch fluticasone 2022-0 Yes [id number] 1{spray Use 1 Univers propionate 3-20 } [place] in ity o f 50 00:00: each [place] mcg/actuati 00 nostril in Me dical on nasal the Branch spray morning and 1 [place] in the evening. pantoprazol 3-0 Yes [id number] 40mg Take 1 Univers e 40 mg EC 3-20 tablet by ity of tablet 00:00: mouth in [place] 00 the Medical morning. Branch fluticasone 2022-0 Yes [id number] 1{spray Use 1 Univers propionate 3-20 } [place] in ity o f 50 00:00: each [place] mcg/actuati 00 nostril in Me dical on nasal the Branch spray morning and 1 [place] in the evening. pantoprazol 2022-0 Yes [id number] 40mg Take 1 Univers e 40 mg EC 3-20 tablet by ity of tablet 00:00: mouth in [place] 00 the Medical morning. Branch fluticasone 2022-0 Yes [id number] 1{spray Use 1 Univers propionate 3-20 } [place] in ity o f 50 00:00: each [place] mcg/actuati 00 nostril in Me dical on nasal the Branch spray morning and 1 [place] in the evening. pantoprazol 2022-0 Yes [id number] 40mg Take 1 Univers e 40 mg EC 3-20 tablet by ity of tablet 00:00: mouth in [place] 00 the Medical morning. Branch fluticasone 2022-0 Yes [id number] 1{spray Use 1 Univers propionate 3-20 } [place] in it o f 50 00:00: each [place] mcg/actuati 00 nostril in Me dical on nasal the Branch spray morning and 1 [place] in the evening. pantoprazol 2022-0 Yes [id number] 40mg Take 1 Univers e 40 mg EC 3-20 tablet by ity of tablet 00:00: mouth in [place] the Medical morning. Branch fluticasone 2022-0 Yes [id number] 1{spray Use 1 Univers propionate 3-20 } [place] in it o f 50 00:00: each [place] mcg/actuati 00 nostril in Ar dical on nasal the Branch spray morning and 1 [place] in the evening. pantoprazol 2022-0 Yes [id number] 40mg Take 1 Univers e 40 mg EC 3-20 tablet by ity of tablet 00:00: mouth in [place] 00 the Medical morning. Branch fluticasone 2022-0 Yes [id number] 1{spray Use 1 [facility] propionate 3-20 } [place] in ity o f 50 00:00: each [place] mcg/actuati 00 nostril in Me dical on nasal the Branch spray morning and 1 [place] in the evening. pantoprazol 3-0 Yes [id number] 40mg Take 1 Univers e 40 mg EC 3-20 tablet by ity of tablet 00:00: mouth in [place] 00 the Medical morning. Branch fluticasone 2022-0 Yes [id number] 1{spray Use 1 [facility] propionate 3-20 } [place] in ity o f 50 00:00: each [place] mcg/actuati 00 nostril in Me dical on nasal the Branch spray morning and 1 [place] in the evening. pantoprazol 2022-0 Yes [id number] 40mg Take 1 Univers e 40 mg EC 3-20 tablet by ity of tablet 00:00: mouth in [place] 00 the Medical morning. Branch fluticasone 2022-0 Yes [id number] 1{spray Use 1 [facility] propionate 3-20 } [place] in ity o f 50 00:00: each [place] mcg/actuati 00 nostril in Me dical on nasal the Branch spray morning and 1 [place] in the evening. pantoprazol 2022-0 Yes [id number] 40mg Take 1 Univers e 40 mg EC 3-20 tablet by ity of tablet 00:00: mouth in [place] 00 the Medical morning. Branch fluticasone 2022-0 Yes [id number] 1{spray Use 1 Univers propionate 3-20 } [place] in ity o f 50 00:00: each [place] mcg/actuati 00 nostril in Me dical on nasal the Branch spray morning and 1 [place] in the evening. pantoprazol 2022-0 Yes [id number] 40mg Take 1 Univers e 40 mg EC 3-20 tablet by ity of tablet 00:00: mouth in [place] 00 the Medical morning. Branch fluticasone 2022-0 Yes [id number] 1{spray Use 1 [facility] propionate 3-20 } [place] in ity o f 50 00:00: each [place] mcg/actuati 00 nostril in Me dical on nasal the Branch spray morning and 1 [place] in the evening. pantoprazol 2022-0 Yes [id number] 40mg Take 1 Univers e 40 mg EC 3-20 tablet by ity of tablet 00:00: mouth in [place] 00 the Medical morning. Branch fluticasone 2022-0 Yes [id number] 1{spray Use 1 [facility] propionate 3-20 } [place] in ity o f 50 00:00: each [place] mcg/actuati 00 nostril in Me dical on nasal the Branch spray morning and 1 [place] in the evening. pantoprazol 3-0 Yes [id number] 40mg Take 1 Univers e 40 mg EC 3-20 tablet by ity of tablet 00:00: mouth in [place] 00 the Medical morning. Branch fluticasone 2022-0 Yes [id number] 1{spray Use 1 [facility] propionate 3-20 } [place] in ity o f 50 00:00: each [place] mcg/actuati 00 nostril in Me dical on nasal the Branch spray morning and 1 [place] in the evening. pantoprazol 2022-0 Yes [id number] 40mg Take 1 Univers e 40 mg EC 3-20 tablet by ity of tablet 00:00: mouth in [place] 00 the Medical morning. Branch fluticasone 2022-0 Yes [id number] 1{spray Use 1 [facility] propionate 3-20 } [place] in ity o f 50 00:00: each [place] mcg/actuati 00 nostril in Me dical on nasal the Branch spray morning and 1 [place] in the evening. pantoprazol 2022-0 Yes [id number] 40mg Take 1 Univers e 40 mg EC 3-20 tablet by ity of tablet 00:00: mouth in [place] 00 the Medical morning. Branch fluticasone 2022-0 Yes [id number] 1{spray Use 1 [facility] propionate 3-20 } [place] in ity o f 50 00:00: each [place] mcg/actuati 00 nostril in Me dical on nasal the Branch spray morning and 1 [place] in the evening. pantoprazol 2022-0 Yes [id number] 40mg Take 1 Univers e 40 mg EC 3-20 tablet by ity of tablet 00:00: mouth in [place] 00 the Medical morning. Branch fluticasone 2022-0 Yes [id number] 1{spray Use 1 [facility] propionate 3-20 } [place] in ity o f 50 00:00: each [place] mcg/actuati 00 nostril in Me dical on nasal the Branch spray morning and 1 [place] in the evening. pantoprazol 3-0 Yes [id number] 40mg Take 1 Univers e 40 mg EC 3-20 tablet by ity of tablet 00:00: mouth in [place] 00 the Medical morning. Branch fluticasone 2022-0 Yes [id number] 1{spray Use 1 [facility] propionate 3-20 } [place] in ity o f 50 00:00: each [place] mcg/actuati 00 nostril in Me dical on nasal the Branch spray morning and 1 [place] in the evening. pantoprazol 2022-0 Yes [id number] 40mg Take 1 Univers e 40 mg EC 3-20 tablet by ity of tablet 00:00: mouth in [place] 00 the Medical morning. Branch fluticasone 2022-0 Yes [id number] 1{spray Use 1 [facility] propionate 3-20 } [place] in ity o f 50 00:00: each [place] mcg/actuati 00 nostril in Me dical on nasal the Branch spray morning and 1 [place] in the evening. pantoprazol 2022-0 Yes [id number] 40mg Take 1 Univers e 40 mg EC 3-20 tablet by ity of tablet 00:00: mouth in [place] 00 the Medical morning. Branch fluticasone 2022-0 Yes [id number] 1{spray Use 1 [facility] propionate 3-20 } [place] in ity o f 50 00:00: each [place] mcg/actuati 00 nostril in Me dical on nasal the Branch spray morning and 1 [place] in the evening. pantoprazol 2022-0 Yes [id number] 40mg Take 1 Univers e 40 mg EC 3-20 tablet by ity of tablet 00:00: mouth in [place] 00 the Medical morning. Branch fluticasone 2022-0 Yes [id number] 1{spray Use 1 [facility] propionate 3-20 } [place] in ity o f 50 00:00: each [place] mcg/actuati 00 nostril in Me dical on nasal the Branch spray morning and 1 [place] in the evening. pantoprazol 2022-0 Yes [id number] 40mg Take 1 Univers e 40 mg EC 3-20 tablet by ity of tablet 00:00: mouth in [place] 00 the Medical morning. Branch fluticasone 2022-0 Yes [id number] 1{spray Use 1 [facility] propionate 3-20 } [place] in ity o f 50 00:00: each [place] mcg/actuati 00 nostril in Me dical on nasal the Branch spray morning and 1 [place] in the evening. pantoprazol 3-0 Yes [id number] 40mg Take 1 Univers e 40 mg EC 3-20 tablet by ity of tablet 00:00: mouth in [place] 00 the Medical morning. Branch fluticasone 2022-0 Yes [id number] 1{spray Use 1 [facility] propionate 3-20 } [place] in ity o f 50 00:00: each [place] mcg/actuati 00 nostril in Me dical on nasal the Branch spray morning and 1 [place] in the evening. pantoprazol 3-0 Yes [id number] 40mg Take 1 Univers e 40 mg EC 3-20 tablet by ity of tablet 00:00: mouth in [place] 00 the Medical morning. Branch fluticasone 2022-0 Yes [id number] 1{spray Use 1 [facility] propionate 3-20 } [place] in ity o f 50 00:00: each [place] mcg/actuati 00 nostril in Me dical on nasal the Branch spray morning and 1 [place] in the evening. pantoprazol 2022-0 Yes [id number] 40mg Take 1 Univers e 40 mg EC 3-20 tablet by ity of tablet 00:00: mouth in [place] 00 the Medical morning. Branch fluticasone 2022-0 Yes [id number] 1{spray Use 1 [facility] propionate 3-20 } [place] in ity o f 50 00:00: each [place] mcg/actuati 00 nostril in Me dical on nasal the Branch spray morning and 1 [place] in the evening. pantoprazol 2022-0 Yes [id number] 40mg Take 1 [facility] e 40 mg EC 3-20 tablet by ity of tablet 00:00: mouth in [place] 00 the Medical morning. Branch fluticasone 2022-0 Yes [id number] 1{spray Use 1 [facility] propionate 3-20 } [place] in ity o f 50 00:00: each [place] mcg/actuati 00 nostril in Ar dical on nasal the Branch spray morning and 1 [place] in the evening. pantoprazol 2022-0 Yes [id number] 40mg Take 1 Univers e 40 mg EC 3-20 tablet by ity of tablet 00:00: mouth in [place] 00 the Medical morning. Branch fluticasone 2022-0 Yes [id number] 1{spray Use 1 [facility] propionate 3-20 } [place] in ity o f 50 00:00: each [place] mcg/actuati 00 nostril in Me dical on nasal the Branch spray morning and 1 [place] in the evening. pantoprazol 2023-0 Yes [id number] 40mg Take 1 [facility] e 40 mg EC 3-20 tablet by ity of tablet 00:00: mouth in [place] 00 the Medical morning. Branch fluticasone 2022-0 Yes [id number] 1{spray Use 1 [facility] propionate 3-20 } [place] in ity o f 50 00:00: each [place] mcg/actuati 00 nostril in Me dical on nasal the Branch spray morning and 1 [place] in the evening. pantoprazol 2022-0 Yes [id number] 40mg Take 1 [facility] e 40 mg EC 3-20 tablet by ity of tablet 00:00: mouth in [place] 00 the Medical morning. Branch fluticasone 2022-0 Yes [id number] 1{spray Use 1 [facility] propionate 3-20 } [place] in ity o f 50 00:00: each [place] mcg/actuati 00 nostril in Me dical on nasal the Branch spray morning and 1 [place] in the evening. pantoprazol 2022-0 Yes [id number] 40mg Take 1 [facility] e 40 mg EC 3-20 tablet by ity of tablet 00:00: mouth in [place] 00 the Medical morning. Branch fluticasone 2022-0 Yes [id number] 1{spray Use 1 [facility] propionate 3-20 } [place] in ity o f 50 00:00: each [place] mcg/actuati 00 nostril in Me dical on nasal the Branch spray morning and 1 [place] in the evening. pantoprazol 2022-0 Yes [id number] 40mg Take 1 [facility] e 40 mg EC 3-20 tablet by ity of tablet 00:00: mouth in [place] 00 the Medical morning. Branch fluticasone 2022-0 Yes [id number] 1{spray Use 1 [facility] propionate 3-20 } [place] in ity o f 50 00:00: each [place] mcg/actuati 00 nostril in Me dical on nasal the Branch spray morning and 1 [place] in the evening. pantoprazol 2022-0 Yes [id number] 40mg Take 1 [facility] e 40 mg EC 3-20 tablet by ity of tablet 00:00: mouth in [place] 00 the Medical morning. Branch fluticasone 2022-0 Yes [id number] 1{spray Use 1 [facility] propionate 3-20 } [place] in ity o f 50 00:00: each [place] mcg/actuati 00 nostril in Me dical on nasal the Branch spray morning and 1 [place] in the evening. pantoprazol 2022-0 Yes [id number] 40mg Take 1 [facility] e 40 mg EC 3-20 tablet by ity of tablet 00:00: mouth in [place] 00 the Medical morning. Branch fluticasone 2022-0 Yes [id number] 1{spray Use 1 [facility] propionate 3-20 } [place] in ity o f 50 00:00: each [place] mcg/actuati 00 nostril in Me dical on nasal the Branch spray morning and 1 [place] in the evening. pantoprazol 2022-0 Yes [id number] 40mg Take 1 [facility] e 40 mg EC 3-20 tablet by ity of tablet 00:00: mouth in [place] 00 the Medical morning. Branch fluticasone 2022-0 Yes [id number] 1{spray Use 1 [facility] propionate 3-20 } [place] in ity o f 50 00:00: each [place] mcg/actuati 00 nostril in Me dical on nasal the Branch spray morning and 1 [place] in the evening. pantoprazol 2022-0 Yes [id number] 40mg Take 1 [facility] e 40 mg EC 3-20 tablet by ity of tablet 00:00: mouth in [place] 00 the Medical morning. Branch fluticasone 2022-0 Yes [id number] 1{spray Use 1 [facility] propionate 3-20 } [place] in ity o f 50 00:00: each [place] mcg/actuati 00 nostril in Me dical on nasal the Branch spray morning and 1 [place] in the evening. pantoprazol 2022-0 Yes [id number] 40mg Take 1 [facility] e 40 mg EC 3-20 tablet by ity of tablet 00:00: mouth in [place] 00 the Medical morning. Branch fluticasone 2022-0 Yes [id number] 1{spray Use 1 [facility] propionate 3-20 } [place] in ity o f 50 00:00: each [place] mcg/actuati 00 nostril in Me dical on nasal the Branch spray morning and 1 [place] in the evening. pantoprazol 2022-0 Yes [id number] 40mg Take 1 [facility] e 40 mg EC 3-20 tablet by ity of tablet 00:00: mouth in [place] 00 the Medical morning. Branch fluticasone 2022-0 Yes [id number] 1{spray Use 1 [facility] propionate 3-20 } [place] in ity o f 50 00:00: each [place] mcg/actuati 00 nostril in Me dical on nasal the Branch spray morning and 1 [place] in the evening. pantoprazol 3-0 Yes [id number] 40mg Take 1 [facility] e 40 mg EC 3-20 tablet by ity of tablet 00:00: mouth in [place] 00 the Medical morning. Branch fluticasone 2022-0 Yes [id number] 1{spray Use 1 [facility] propionate 3-20 } [place] in ity o f 50 00:00: each [place] mcg/actuati 00 nostril in Me dical on nasal the Branch spray morning and 1 [place] in the evening. pantoprazol 2022-0 Yes [id number] 40mg Take 1 [facility] e 40 mg EC 3-20 tablet by ity of tablet 00:00: mouth in [place] 00 the Medical morning. Branch fluticasone 2022-0 Yes [id number] 1{spray Use 1 [facility] propionate 3-20 } [place] in ity o f 50 00:00: each [place] mcg/actuati 00 nostril in Me dical on nasal the Branch spray morning and 1 [place] in the evening. pantoprazol 2022-0 Yes [id number] 40mg Take 1 [facility] e 40 mg EC 3-20 tablet by ity of tablet 00:00: mouth in [place] 00 the Medical morning. Branch fluticasone 2022-0 Yes [id number] 1{spray Use 1 [facility] propionate 3-20 } [place] in ity o f 50 00:00: each [place] mcg/actuati 00 nostril in Me dical on nasal the Branch spray morning and 1 [place] in the evening. pantoprazol 3-0 Yes [id number] 40mg Take 1 [facility] 40 mg EC 3-20 tablet by ity of tablet 00:00: mouth in [place] 00 the Medical morning. Branch fluticasone 2022-0 Yes [id number] 1{spray Use 1 [facility] propionate 3-20 } [place] in ity o f 50 00:00: each [place] mcg/actuati 00 nostril in Me dical on nasal the Branch spray morning and 1 [place] in the evening. pantoprazol 3-0 Yes [id number] 40mg Take 1 [facility] 40 mg EC 3-20 tablet by ity of tablet 00:00: mouth in [place] 00 the Medical morning. Branch fluticasone 2022-0 Yes [id number] 1{spray Use 1 [facility] propionate 3-20 } [place] in ity o f 50 00:00: each [place] mcg/actuati 00 nostril in Me dical on nasal the Branch spray morning and 1 [place] in the evening. pantoprazol 3-0 Yes [id number] 40mg Take 1 [facility] 40 mg EC 3-20 tablet by ity of tablet 00:00: mouth in [place] 00 the Medical morning. Branch fluticasone 2022-0 Yes [id number] 1{spray Use 1 [facility] propionate 3-20 } [place] in ity o f 50 00:00: each [place] mcg/actuati 00 nostril in Me dical on nasal the Branch spray morning and 1 [place] in the evening. pantoprazol 3-0 Yes [id number] 40mg Take 1 [facility] 40 mg EC 3-20 tablet by ity of tablet 00:00: mouth in [place] 00 the Medical morning. Branch fluticasone 2022-0 Yes [id number] 1{spray Use 1 [facility] propionate 3-20 } [place] in ity o f 50 00:00: each [place] mcg/actuati 00 nostril in Me dical on nasal the Branch spray morning and 1 [place] in the evening. pantoprazol 2022-0 Yes [id number] 40mg Take 1 [facility] 40 mg EC 3-20 tablet by ity of tablet 00:00: mouth in [place] 00 the Medical morning. Branch fluticasone 2022-0 Yes [id number] 1{spray Use 1 [facility] propionate 3-20 } [place] in ity o f 50 00:00: each [place] mcg/actuati 00 nostril in Me dical on nasal the Branch spray morning and 1 [place] in the evening. pantoprazol 3-0 Yes [id number] 40mg Take 1 [facility] 40 mg EC 3-20 tablet by ity of tablet 00:00: mouth in [place] 00 the Medical morning. Branch fluticasone 3-0 Yes [id number] 1{spray Use 1 [facility] propionate 3-20 } [place] in ity o f 50 00:00: each [place] mcg/actuati 00 nostril in Me dical on nasal the Branch spray morning and 1 [place] in the evening. pantoprazol 2023-0 Yes [id number] 40mg Take 1 [facility] 40 mg EC 3-20 tablet by ity of tablet 00:00: mouth in [place] 00 the Medical morning. Branch fluticasone 2023-0 Yes [id number] 1{spray Use 1 [facility] propionate 3-20 } [place] in ity o f 50 00:00: each [place] mcg/actuati 00 nostril in Me dical on nasal the Branch spray morning and 1 [place] in the evening. pantoprazol 2022-0 Yes [id number] 40mg Take 1 [facility] 40 mg EC 3-20 tablet by ity of tablet 00:00: mouth in [place] 00 the Medical morning. Branch fluticasone 2022-0 Yes [id number] 1{spray Use 1 [facility] propionate 3-20 } [place] in ity o f 50 00:00: each [place] mcg/actuati 00 nostril in Me dical on nasal the Branch spray morning and 1 [place] in the evening. pantoprazol 2022-0 Yes [id number] 40mg Take 1 [facility] 40 mg EC 3-20 tablet by ity of tablet 00:00: mouth in [place] 00 the Medical morning. Branch fluticasone 2022-0 Yes [id number] 1{spray Use 1 [facility] propionate 3-20 } [place] in ity o f 50 00:00: each [place] mcg/actuati 00 nostril in Me dical on nasal the Branch spray morning and 1 [place] in the evening. pantoprazol 2022-0 Yes [id number] 40mg Take 1 [facility] 40 mg EC 3-20 tablet by ity of tablet 00:00: mouth in [place] 00 the Medical morning. Branch fluticasone 2022-0 Yes [id number] 1{spray Use 1 [facility] propionate 3-20 } [place] in ity o f 50 00:00: each [place] mcg/actuati 00 nostril in Me dical on nasal the Branch spray morning and 1 [place] in the evening. pantoprazol 2022-0 Yes [id number] 40mg Take 1 [facility] 40 mg EC 3-20 tablet by ity of tablet 00:00: mouth in [place] 00 the Medical morning. Branch fluticasone 2022-0 Yes [id number] 1{spray Use 1 [facility] propionate 3-20 } [place] in ity o f 50 00:00: each [place] mcg/actuati 00 nostril in Me dical on nasal the Branch spray morning and 1 [place] in the evening. pantoprazol 2022-0 Yes [id number] 40mg Take 1 [facility] 40 mg EC 3-20 tablet by ity of tablet 00:00: mouth in [place] 00 the Medical morning. Branch fluticasone 2022-0 Yes [id number] 1{spray Use 1 [facility] propionate 3-20 } [place] in ity o f 50 00:00: each [place] mcg/actuati 00 nostril in Me dical on nasal the Branch spray morning and 1 [place] in the evening. pantoprazol 2022-0 Yes [id number] 40mg Take 1 [facility] 40 mg EC 3-20 tablet by ity of tablet 00:00: mouth in [place] 00 the Medical morning. Branch fluticasone 2022-0 Yes [id number] 1{spray Use 1 [facility] propionate 3-20 } [place] in ity o f 50 00:00: each [place] mcg/actuati 00 nostril in Me dical on nasal the Branch spray morning and 1 [place] in the evening. pantoprazol 2022-0 Yes [id number] 40mg Take 1 [facility] 40 mg EC 3-20 tablet by ity of tablet 00:00: mouth in [place] 00 the Medical morning. Branch fluticasone 2022-0 Yes [id number] 1{spray Use 1 [facility] propionate 3-20 } [place] in ity o f 50 00:00: each [place] mcg/actuati 00 nostril in Me dical on nasal the Branch spray morning and 1 [place] in the evening. pantoprazol 2022-0 Yes [id number] 40mg Take 1 [facility] 40 mg EC 3-20 tablet by ity of tablet 00:00: mouth in [place] 00 the Medical morning. Branch fluticasone 2022-0 Yes [id number] 1{spray Use 1 [facility] propionate 3-20 } [place] in ity o f 50 00:00: each [place] mcg/actuati 00 nostril in Me dical on nasal the Branch spray morning and 1 [place] in the evening. pantoprazol 3-0 Yes [id number] 40mg Take 1 [facility] 40 mg EC 3-20 tablet by ity of tablet 00:00: mouth in [place] 00 the Medical morning. Branch fluticasone 2022-0 Yes [id number] 1{spray Use 1 [facility] propionate 3-20 } [place] in ity o f 50 00:00: each [place] mcg/actuati 00 nostril in Me dical on nasal the Branch spray morning and 1 [place] in the evening. pantoprazol 3-0 Yes [id number] 40mg Take 1 [facility] 40 mg EC 3-20 tablet by ity of tablet 00:00: mouth in [place] 00 the Medical morning. Branch fluticasone 2022-0 Yes [id number] 1{spray Use 1 [facility] propionate 3-20 } [place] in ity o f 50 00:00: each [place] mcg/actuati 00 nostril in Me dical on nasal the Branch spray morning and 1 [place] in the evening. pantoprazol 2022-0 Yes [id number] 40mg Take 1 [facility] 40 mg EC 3-20 tablet by ity of tablet 00:00: mouth in [place] 00 the Medical morning. Branch fluticasone 2022-0 Yes [id number] 1{spray Use 1 [facility] propionate 3-20 } [place] in ity o f 50 00:00: each [place] mcg/actuati 00 nostril in Me dical on nasal the Branch spray morning and 1 [place] in the evening. pantoprazol 2022-0 Yes [id number] 40mg Take 1 [facility] 40 mg EC 3-20 tablet by ity of tablet 00:00: mouth in [place] 00 the Medical morning. Branch fluticasone 2022-0 Yes [id number] 1{spray Use 1 [facility] propionate 3-20 } [place] in ity o f 50 00:00: each [place] mcg/actuati 00 nostril in Me dical on nasal the Branch spray morning and 1 [place] in the evening. pantoprazol 2022-0 Yes [id number] 40mg Take 1 [facility] 40 mg EC 3-20 tablet by ity of tablet 00:00: mouth in [place] 00 the Medical morning. Branch fluticasone 3-0 Yes [id number] 1{spray Use 1 [facility] propionate 3-20 } [place] in ity o f 50 00:00: each [place] mcg/actuati 00 nostril in Me dical on nasal the Branch spray morning and 1 [place] in the evening. pantoprazol 3-0 Yes [id number] 40mg Take 1 [facility] 40 mg EC 3-20 tablet by ity of tablet 00:00: mouth in [place] 00 the Medical morning. Branch fluticasone 2022-0 Yes [id number] 1{spray Use 1 [facility] propionate 3-20 } [place] in ity o f 50 00:00: each [place] mcg/actuati 00 nostril in Me dical on nasal the Branch spray morning and 1 [place] in the evening. pantoprazol 3-0 Yes [id number] 40mg Take 1 [facility] 40 mg EC 3-20 tablet by ity of tablet 00:00: mouth in [place] 00 the Medical morning. Branch fluticasone 2022-0 Yes [id number] 1{spray Use 1 [facility] propionate 3-20 } [place] in ity o f 50 00:00: each [place] mcg/actuati 00 nostril in Me dical on nasal the Branch spray morning and 1 [place] in the evening. pantoprazol 3-0 Yes [id number] 40mg Take 1 [facility] 40 mg EC 3-20 tablet by ity of tablet 00:00: mouth in [place] 00 the Medical morning. Branch fluticasone 2022-0 Yes [id number] 1{spray Use 1 [facility] propionate 3-20 } [place] in it o 50 00:00: each [place] mcg/actuati 00 nostril in Me dical on nasal the Branch spray morning and 1 [place] in the evening. pantoprazol 2022-0 Yes [id number] 40mg Take 1 [facility] 40 mg EC 3-20 tablet by ity of tablet 00:00: mouth in [place] the Medical morning. Branch fluticasone 2022-0 Yes [id number] 1{spray Use 1 [facility] propionate 3-20 } [place] in ity o f 50 00:00: each [place] mcg/actuati 00 nostril in Me dical on nasal the Branch spray morning and 1 [place] in the evening. pantoprazol 3-0 Yes [id number] 40mg Take 1 [facility] 40 mg EC 3-20 tablet by ity of tablet 00:00: mouth in [place] 00 the Medical morning. Branch fluticasone 3-0 Yes [id number] 1{spray Use 1 [facility] propionate 3-20 } [place] in ity o f 50 00:00: each [place] mcg/actuati 00 nostril in Me dical on nasal the Branch spray morning and 1 [place] in the evening. pantoprazol 3-0 Yes [id number] 40mg Take 1 [facility] 40 mg EC 3-20 tablet by ity of tablet 00:00: mouth in [place] 00 the Medical morning. Branch fluticasone 2023-0 Yes [id number] 1{spray Use 1 [facility] propionate 3-20 } [place] in ity o f 50 00:00: each [place] mcg/actuati 00 nostril in Me dical on nasal the Branch spray morning and 1 [place] in the evening. pantoprazol 2022-0 Yes [id number] 40mg Take 1 [facility] 40 mg EC 3-20 tablet by ity of tablet 00:00: mouth in [place] 00 the Medical morning. Branch fluticasone 2022-0 Yes [id number] 1{spray Use 1 [facility] propionate 3-20 } [place] in ity o f 50 00:00: each [place] mcg/actuati 00 nostril in Me dical on nasal the Branch spray morning and 1 [place] in the evening. pantoprazol 2022-0 Yes [id number] 40mg Take 1 [facility] e 40 mg EC 3-20 tablet by ity of tablet 00:00: mouth in [place] 00 the Medical morning. Branch fluticasone 2022-0 Yes [id number] 1{spray Use 1 [facility] propionate 3-20 } [place] in ity o f 50 00:00: each [place] mcg/actuati 00 nostril in Me dical on nasal the Branch spray morning and 1 [place] in the evening. pantoprazol 2022-0 Yes [id number] 40mg Take 1 [facility] e 40 mg EC 3-20 tablet by ity of tablet 00:00: mouth in [place] 00 the Medical morning. Branch fluticasone 2022-0 Yes [id number] 1{spray Use 1 [facility] propionate 3-20 } [place] in ity o f 50 00:00: each [place] mcg/actuati 00 nostril in Me dical on nasal the Branch spray morning and 1 [place] in the evening. pantoprazol 2022-0 Yes [id number] 40mg Take 1 [facility] 40 mg EC 3-20 tablet by ity of tablet 00:00: mouth in [place] 00 the Medical morning. Branch fluticasone 2022-0 Yes [id number] 1{spray Use 1 [facility] propionate 3-20 } [place] in ity o f 50 00:00: each [place] mcg/actuati 00 nostril in Me dical on nasal the Branch spray morning and 1 [place] in the evening. pantoprazol 2022-0 Yes [id number] 40mg Take 1 [facility] 40 mg EC 3-20 tablet by ity of tablet 00:00: mouth in [place] 00 the Medical morning. Branch fluticasone 2022-0 Yes [id number] 1{spray Use 1 [facility] propionate 3-20 } [place] in ity o f 50 00:00: each [place] mcg/actuati 00 nostril in Me dical on nasal the Branch spray morning and 1 [place] in the evening. pantoprazol 3-0 Yes [id number] 40mg Take 1 [facility] 40 mg EC 3-20 tablet by ity of tablet 00:00: mouth in [place] 00 the Medical morning. Branch fluticasone 2022-0 Yes [id number] 1{spray Use 1 [facility] propionate 3-20 } [place] in ity o f 50 00:00: each [place] mcg/actuati 00 nostril in Me dical on nasal the Branch spray morning and 1 [place] in the evening. pantoprazol 2022-0 Yes [id number] 40mg Take 1 [facility] e 40 mg EC 3-20 tablet by ity of tablet 00:00: mouth in [place] 00 the Medical morning. Branch fluticasone 2022-0 Yes [id number] 1{spray Use 1 [facility] propionate 3-20 } [place] in ity o f 50 00:00: each [place] mcg/actuati 00 nostril in Me dical on nasal the Branch spray morning and 1 [place] in the evening. pantoprazol 2022-0 Yes [id number] 40mg Take 1 [facility] 40 mg EC 3-20 tablet by ity of tablet 00:00: mouth in [place] 00 the Medical morning. Branch fluticasone 2022-0 Yes [id number] 1{spray Use 1 [facility] propionate 3-20 } [place] in ity o f 50 00:00: each [place] mcg/actuati 00 nostril in Me dical on nasal the Branch spray morning and 1 [place] in the evening. pantoprazol 3-0 Yes [id number] 40mg Take 1 [facility] 40 mg EC 3-20 tablet by ity of tablet 00:00: mouth in [place] 00 the Medical morning. Branch fluticasone 2022-0 Yes [id number] 1{spray Use 1 [facility] propionate 3-20 } [place] in ity o f 50 00:00: each [place] mcg/actuati 00 nostril in Me dical on nasal the Branch spray morning and 1 [place] in the evening. pantoprazol 2022-0 Yes [id number] 40mg Take 1 [facility] 40 mg EC 3-20 tablet by ity of tablet 00:00: mouth in [place] 00 the Medical morning. Branch fluticasone 2022-0 Yes [id number] 1{spray Use 1 [facility] propionate 3-20 } [place] in ity o f 50 00:00: each [place] mcg/actuati 00 nostril in Me dical on nasal the Branch spray morning and 1 [place] in the evening. pantoprazol 2022-0 Yes [id number] 40mg Take 1 [facility] 40 mg EC 3-20 tablet by ity of tablet 00:00: mouth in [place] 00 the Medical morning. Branch fluticasone 2022-0 Yes [id number] 1{spray Use 1 [facility] propionate 3-20 } [place] in ity o f 50 00:00: each [place] mcg/actuati 00 nostril in Me dical on nasal the Branch spray morning and 1 [place] in the evening. pantoprazol 2022-0 Yes [id number] 40mg Take 1 [facility] 40 mg EC 3-20 tablet by ity of tablet 00:00: mouth in [place] 00 the Medical morning. Branch fluticasone 2022-0 Yes [id number] 1{spray Use 1 [facility] propionate 3-20 } [place] in ity o f 50 00:00: each [place] mcg/actuati 00 nostril in Me dical on nasal the Branch spray morning and 1 [place] in the evening. pantoprazol 2022-0 Yes [id number] 40mg Take 1 [facility] 40 mg EC 3-20 tablet by ity of tablet 00:00: mouth in [place] 00 the Medical morning. Branch fluticasone 2022-0 Yes [id number] 1{spray Use 1 [facility] propionate 3-20 } [place] in ity o f 50 00:00: each [place] mcg/actuati 00 nostril in Me dical on nasal the Branch spray morning and 1 [place] in the evening. pantoprazol 2022-0 Yes [id number] 40mg Take 1 [facility] 40 mg EC 3-20 tablet by ity of tablet 00:00: mouth in [place] 00 the Medical morning. Branch fluticasone 2022-0 Yes [id number] 1{spray Use 1 [facility] propionate 3-20 } [place] in ity o f 50 00:00: each [place] mcg/actuati 00 nostril in Me dical on nasal the Branch spray morning and 1 [place] in the evening. pantoprazol 3-0 Yes [id number] 40mg Take 1 [facility] 40 mg EC 3-20 tablet by ity of tablet 00:00: mouth in [place] 00 the Medical morning. Branch fluticasone 2022-0 Yes [id number] 1{spray Use 1 [facility] propionate 3-20 } [place] in ity o f 50 00:00: each [place] mcg/actuati 00 nostril in Me dical on nasal the Branch spray morning and 1 [place] in the evening. pantoprazol 2022-0 Yes [id number] 40mg Take 1 [facility] 40 mg EC 3-20 tablet by ity of tablet 00:00: mouth in [place] 00 the Medical morning. Branch fluticasone 2022-0 Yes [id number] 1{spray Use 1 [facility] propionate 3-20 } [place] in ity o f 50 00:00: each [place] mcg/actuati 00 nostril in Me dical on nasal the Branch spray morning and 1 [place] in the evening. pantoprazol 2022-0 Yes [id number] 40mg Take 1 [facility] 40 mg EC 3-20 tablet by ity of tablet 00:00: mouth in [place] the Medical morning. Branch fluticasone 2022-0 Yes [id number] 1{spray Use 1 [facility] propionate 3-20 } [place] in ity o f 50 00:00: each [place] mcg/actuati 00 nostril in Me dical on nasal the Branch spray morning and 1 [place] in the evening. pantoprazol 3-0 Yes [id number] 40mg Take 1 [facility] 40 mg EC 3-20 tablet by ity of tablet 00:00: mouth in [place] 00 the Medical morning. Branch fluticasone 2022-0 Yes [id number] 1{spray Use 1 [facility] propionate 3-20 } [place] in ity o f 50 00:00: each [place] mcg/actuati 00 nostril in Me dical on nasal the Branch spray morning and 1 [place] in the evening. pantoprazol 3-0 Yes [id number] 40mg Take 1 [facility] 40 mg EC 3-20 tablet by ity of tablet 00:00: mouth in [place] 00 the Medical morning. Branch fluticasone 2022-0 Yes [id number] 1{spray Use 1 [facility] propionate 3-20 } [place] in ity o f 50 00:00: each [place] mcg/actuati 00 nostril in Me dical on nasal the Branch spray morning and 1 [place] in the evening. pantoprazol 2022-0 Yes [id number] 40mg Take 1 [facility] 40 mg EC 3-20 tablet by ity of tablet 00:00: mouth in [place] 00 the Medical morning. Branch fluticasone 2022-0 Yes [id number] 1{spray Use 1 [facility] propionate 3-20 } [place] in ity o f 50 00:00: each [place] mcg/actuati 00 nostril in Me dical on nasal the Branch spray morning and 1 [place] in the evening. pantoprazol 2022-0 Yes [id number] 40mg Take 1 [facility] 40 mg EC 3-20 tablet by ity of tablet 00:00: mouth in [place] 00 the Medical morning. Branch fluticasone 2022-0 Yes [id number] 1{spray Use 1 [facility] propionate 3-20 } [place] in ity o f 50 00:00: each [place] mcg/actuati 00 nostril in Me dical on nasal the Branch spray morning and 1 [place] in the evening. pantoprazol 2022-0 Yes [id number] 40mg Take 1 [facility] 40 mg EC 3-20 tablet by ity of tablet 00:00: mouth in [place] 00 the Medical morning. Branch fluticasone 2022-0 Yes [id number] 1{spray Use 1 [facility] propionate 3-20 } [place] in ity o f 50 00:00: each [place] mcg/actuati 00 nostril in Me dical on nasal the Branch spray morning and 1 [place] in the evening. fluticasone 2022-0 Yes [id number] 1{spray Use 1 [facility] propionate 3-20 } [place] in ity o f 50 00:00: each [place] mcg/actuati 00 nostril in Me dical on nasal the Branch spray morning and 1 [place] in the evening. fluticasone 2022-0 Yes [id number] 1{spray Use 1 [facility] propionate 3-20 } [place] in ity o f 50 00:00: each [place] mcg/actuati 00 nostril in Me dical on nasal the Branch spray morning and 1 [place] in the evening. fluticasone 2022-0 Yes [id number] 1{spray Use 1 [facility] propionate 3-20 } [place] in ity o f 50 00:00: each [place] mcg/actuati 00 nostril in Me dical on nasal the Branch spray morning and 1 [place] in the evening. fluticasone Yes [id number] 1{spray Use 1 [facility] propionate 3-20 } [place] in ity o f 50 00:00: each [place] mcg/actuati 00 nostril in Me dical on nasal the Branch spray morning and 1 [place] in the evening. fluticasone Yes [id number] 1{spray Use 1 [facility] propionate 3-20 } [place] in ity o f 50 00:00: each [place] mcg/actuati 00 nostril in Me dical on nasal the Branch spray morning and 1 [place] in the evening. fluticasone Yes [id number] 1{spray Use 1 [facility] propionate 3-20 } [place] in ity o f 50 00:00: each [place] mcg/actuati 00 nostril in Me dical on nasal the Branch spray morning and 1 [place] in the evening. fluticasone Yes [id number] 1{spray Use 1 [facility] propionate 3-20 } [place] in ity o f 50 00:00: each [place] mcg/actuati 00 nostril in Me dical on nasal the Branch spray morning and 1 [place] in the evening. pantoprazol 2022- No [id number] 40mg Take 1 [facility] e 40 mg EC 3-20 03-09 tablet by ity of tablet 00:00: 00:00 mouth in [place] 00 :00 the Medical morning. Branch pantoprazol 2022- No [id number] 40mg Take 1 [facility] e 40 mg EC 3-20 03-09 tablet by ity of tablet 00:00: 00:00 mouth in [place] 00 :00 the Medical morning. Branch sugammadex 0 2022- No IV Push, [facility] (BRIDION) 3-10 -10 ONCE INTRA ity of injection 15:25: 15:41 PROCEDURE, [place] 00 :16 Starting Medical on Sun Branch 09/15/22 at 0925, Until 09/15/22 at 0941, Routine, Intra-op lactated 2022-0 Yes 500mL at 75 [facility] ringers IV 3-10 mL/hr, 500 ity of infusion 15:15: mL, IV [place] 500 mL 00 Infusion, Medical CONTINUOUS Branch , Starting on Sun09/15/22 at 0915, Until Discontinu ed, Routine, PACU lactated 2022-0 2022- No 500mL at 75 [facility] ringers IV 09-15 03-10 mL/hr, 500 it y of infusion 15:15: 18:07 mL, IV [place] 500 mL 00 :01 Infusion, Medical CONTINUOUS Branch , Starting on Sun09/15/22 at 0915, Until Sun09/15/22 at 1207, Routine, PACU proMETHazin Yes 12.5mg 12.5 mg, [facility] e 10 IV ity of (PHENERGAN) 15:09: Piggyback, [place] 12.5 mg in 57 at 200 Medical NS 50 mL IV mL/hr Branch piggyback Administer (CNR) over 15 Minutes, PRN, 1 dose, Starting on Sun09/15/22 at 0909, Until Discontinu ed, Routine, Nausea and Vomiting (N/V), PACU proMETHazin 2022- No 12.5mg 12.5 mg, Univers e 09-15-10 IV ity of (PHENERGAN) 15:09: 18:07 Piggyback, [place] 12.5 mg in 57 :01 at 200 Medical NS 50 mL IV mL/hr Branch piggyback Administer (CNR) over 15 Minutes, PRN, 1 dose, Starting on Sun09/15/22 at 0909, Until Sun09/15/22 at 1207, Routine, Nausea and Vomiting (N/V), PACU rocuronium 2022- No IV Push, Un [facility] (ZEMURON) 09-1510 ONCE INTRA ity of injection 14:29: 15:41 PROCEDURE, [place] 00 :16 Starting Medical on Sun Branch 09/15/22 at 0829, Until Sun09/15/22 at 0941, Routine, Intra-op propofoL IV 2022- No IV Unive rs infusion 09-1510 Infusion, ity o f 14:28: 15:41 CONTINUOUS [place] 00 :16 PRN, Medical Starting Branch on Sun09/15/22 at 0828, Until Sun09/15/22 at 0941, Routine, Intra-op propofoL IV 2022- No IV Unive rs infusion 09-15 Infusion, ity o f 14:28: 15:41 ONCE INTRA [place] 00 :16 PROCEDURE, Medical Starting Branch on Sun09/15/22 at 0828, Until Sun09/15/22 at 0941, Routine, Intra-op lidocaine 2022-2022- No Slow IV Univ ers 1% 09-15 Push, ONCE ity of (XYLOCAINE) 14:27: 15:41 INTRA [place] 100 mg/10 00 :16 PROCEDURE, Medi janet mL (1 %) Starting Branch injection on Sun09/15/22 at 0827, Until Sun09/15/22 at 0941, Routine, Intra-op FENTanyl PF 2022- No Epidural, Univers (SUBLIMAZE 09-15 ONCE INTRA it y of (PF)) 14:27: 15:41 PROCEDURE, [place] injection 00 :16 Starting Medica l on Sun09/15/22 at 0827, Until Sun09/15/22 at 0941, Routine, Intra-op midazolam 2022- No IV Push, Uni vers (VERSED) 09-15 ONCE INTRA ity of injection 14:09: 15:41 PROCEDURE, [place] 00 :16 Starting Medical on Sun09/15/22 at 0809, Until Sun09/15/22 at 0941, Routine, Intra-op lactated 2022- No 1000mL at 42 Unive rs ringers IV 09-15-10 mL/hr, ity of infusion 12:30: 15:39 1,000 mL, [place] as 1,000 mL 00 :00 IV Medical Infusion, Branch ONCE, 1 dose, On Sun09/15/22 at 0630, Routine, DSU Pre-op levetiracet 2022-0 Yes 500mg Take 500 U nivers am (KEPPRA 3-10 mg by ity of ORAL) 10:07: mouth 2 [place] (two) Medical times Branch daily. levetiracet 3-0 Yes 500mg Take 500 U nivers am (KEPPRA 3-10 mg by ity of ORAL) 10:07: mouth 2 [place] (two) Medical times Branch daily. levetiracet 2023-0 Yes 500mg Take 500 U nivers am (KEPPRA 3-10 mg by ity of ORAL) 10:07: mouth [address] [place] [address] (two) Medical times Branch daily. levetiracet 2023-0 Yes 500mg Take 500 U nivers am (KEPPRA 3-10 mg by ity of ORAL) 10:07: mouth [address] [place] [address] (two) Medical times Branch daily. levetiracet 2023-0 Yes 500mg Take 500 U nivers am (KEPPRA 3-10 mg by ity of ORAL) 10:07: mouth [address] [place] [address] (two) Medical times Branch daily. levetiracet 2023-0 Yes 500mg Take 500 U nivers am (KEPPRA 3-10 mg by ity of ORAL) 10:07: mouth [address] [place] [address] (two) Medical times Branch daily. levetiracet 2023-0 Yes 500mg Take 500 U nivers am (KEPPRA 3-10 mg by ity of ORAL) 10:07: mouth [address] [place] [address] (two) Medical times Branch daily. levetiracet 2023-0 Yes 500mg Take 500 U nivers am (KEPPRA 3-10 mg by ity of ORAL) 10:07: mouth [address] [place] [address] (two) Medical times Branch daily. levetiracet 2023-0 Yes 500mg Take 500 U nivers am (KEPPRA 3-10 mg by ity of ORAL) 10:07: mouth [address] [place] [address] (two) Medical times Branch daily. levetiracet 2023-0 Yes 500mg Take 500 U nivers am (KEPPRA 3-10 mg by ity of ORAL) 10:07: [address] (two) Medical times Branch daily. levetiracet 2023-0 Yes 500mg Take 500 U nivers am (KEPPRA 3-10 mg by ity of ORAL) 10:07: mouth [address] [place] [address] (two) Medical times Branch daily. levetiracet 2023-0 Yes 500mg Take 500 U nivers am (KEPPRA 3-10 mg by ity of ORAL) 10:07: mouth [address] [place] [address] (two) Medical times Branch daily. levetiracet 2023-0 Yes 500mg Take 500 U nivers am (KEPPRA 3-10 mg by ity of ORAL) 10:07: mouth [address] [place] [address] (two) Medical times Branch daily. levetiracet 2023-0 Yes 500mg Take 500 U nivers am (KEPPRA 3-10 mg by ity of ORAL) 10:07: mouth 2 [place] (two) Medical times Branch daily. levetiracet 2023-0 Yes 500mg Take 500 U nivers am (KEPPRA 3-10 mg by ity of ORAL) 10:07: mouth [address] [place] [address] (two) Medical times Branch daily. levetiracet 2023-0 Yes 500mg Take 500 U nivers am (KEPPRA 3-10 mg by ity of ORAL) 10:07: mouth [address] [place] [address] (two) Medical times Branch daily. levetiracet 2023-0 Yes 500mg Take 500 U nivers am (KEPPRA 3-10 mg by ity of ORAL) 10:07: mouth [address] [place] [address] (two) Medical times Branch daily. levetiracet 2023-0 Yes 500mg Take 500 U nivers am (KEPPRA 3-10 mg by ity of ORAL) 10:07: mouth [address] [place] [address] (two) Medical times Branch daily. levetiracet 2023-0 Yes 500mg Take 500 U nivers am (KEPPRA 3-10 mg by ity of ORAL) 10:07: [address] (two) Medical times Branch daily. levetiracet 2023-0 Yes 500mg Take 500 U nivers am (KEPPRA 3-10 mg by ity of ORAL) 10:07: mouth [address] [place] [address] (two) Medical times Branch daily. levetiracet 2023-0 Yes 500mg Take 500 U nivers am (KEPPRA 3-10 mg by ity of ORAL) 10:07: mouth [address] [place] [address] (two) Medical times Branch daily. levetiracet 2023-0 Yes 500mg Take 500 U nivers am (KEPPRA 3-10 mg by ity of ORAL) 10:07: mouth [address] [place] [address] (two) Medical times Branch daily. levetiracet 2023-0 Yes 500mg Take 500 U nivers am (KEPPRA 3-10 mg by ity of ORAL) 10:07: mouth [address] [place] [address] (two) Medical times Branch daily. levetiracet 2023-0 Yes 500mg Take 500 U nivers am (KEPPRA 3-10 mg by ity of ORAL) 10:07: mouth [address] [place] [address] (two) Medical times Branch daily. levetiracet 2023-0 Yes 500mg Take 500 U nivers am (KEPPRA 3-10 mg by ity of ORAL) 10:07: mouth [address] [place] [address] (two) Medical times Branch daily. levetiracet 2023-0 Yes 500mg Take 500 U nivers am (KEPPRA 3-10 mg by ity of ORAL) 10:07: mouth [address] [place] [address] (two) Medical times Branch daily. levetiracet 2023-0 Yes 500mg Take 500 U nivers am (KEPPRA 3-10 mg by ity of ORAL) 10:07: mouth [address] [place] [address] (two) Medical times Branch daily. levetiracet 2023-0 Yes 500mg Take 500 U nivers am (KEPPRA 3-10 mg by ity of ORAL) 10:07: [place] [address] (two) Medical times Branch daily. levetiracet 2023-0 Yes 500mg Take 500 U nivers am (KEPPRA 3-10 mg by ity of ORAL) 10:07: [address] (two) Medical times Branch daily. levetiracet 2023-0 Yes 500mg Take 500 U nivers am (KEPPRA 3-10 mg by ity of ORAL) 10:07: [address] (two) Medical times Branch daily. levetiracet 2023-0 Yes 500mg Take 500 U nivers am (KEPPRA 3-10 mg by ity of ORAL) 10:07: mouth [address] [place] [address] (two) Medical times Branch daily. levetiracet 2023-0 Yes 500mg Take 500 U nivers am (KEPPRA 3-10 mg by ity of ORAL) 10:07: mouth [address] [place] [address] (two) Medical times Branch daily. levetiracet 2023-0 Yes 500mg Take 500 U nivers am (KEPPRA 3-10 mg by ity of ORAL) 10:07: mouth [address] [place] [address] (two) Medical times Branch daily. levetiracet 2023-0 Yes 500mg Take 500 U nivers am (KEPPRA 3-10 mg by ity of ORAL) 10:07: mouth 2 [place] 01 (two) Medical times Branch daily. Nitrofurant 2022- No [id number] 100mg Take 1 [facility] oin&Nit. 2-15 capsule by ity of [place] 00:00: 05:59 mouth in [place] (MACROBID) 00 :00 the Medical 100 mg morning Branch capsule and 1 capsule in the evening. Do all this for 7 days. Nitrofurant 2022- No [id number] 100mg Take 1 [facility] oin&Nit. 2-15 capsule by ity of [place] 00:00: 05:59 mouth in [place] (MACROBID) 00 :00 the Medical 100 mg morning Branch capsule and 1 capsule in the evening. Do all this for 7 days. Nitrofurant 2022- No [id number] 100mg Take 1 [facility] oin&Nit. 2-15 capsule by ity of [place] 00:00: 05:59 mouth in [place] (MACROBID) 00 :00 the Medical 100 mg morning Branch capsule and 1 capsule in the evening. Do all this for 7 days. Nitrofurant 2022-2022- No [id number] 100mg Take 1 [facility] oin&Nit. 2-15 capsule by ity of [place] 00:00: 05:59 mouth in [place] (MACROBID) 00 :00 the Medical 100 mg morning Branch capsule and 1 capsule in the evening. Do all this for 7 days. Nitrofurant 2022- No [id number] 100mg Take 1 [facility] oin&Nit. 2-15 capsule by ity of [place] 00:00: 05:59 mouth in [place] (MACROBID) 00 :00 the Medical 100 mg morning Branch capsule and 1 capsule in the evening. Do all this for 7 days. Nitrofurant 0 2022- No [id number] 100mg Take 1 [facility] oin&Nit. 2-15 capsule by ity of [place] 00:00: 05:59 mouth in [place] (MACROBID) 00 :00 the Medical 100 mg morning Branch capsule and 1 capsule in the evening. Do all this for 7 days. Nitrofurant 2023-0 2023- No [id number] 100mg Take 1 [facility] oin&Nit. 2- 02-15 capsule by ity of [place] 00:00: 05:59 mouth in [place] (MACROBID) 00 :00 the Medical 100 mg morning Branch capsule and 1 capsule in the evening. Do all this for 7 days. Nitrofurant 2023-0 2023- No [id number] 100mg Take 1 [facility] oin&Nit. 2- 02-15 capsule by ity of [place] 00:00: 05:59 mouth in [place] (MACROBID) 00 :00 the Medical 100 mg morning Branch capsule and 1 capsule in the evening. Do all this for 7 days. Nitrofurant 3-0 2023- No [id number] 100mg Take 1 [facility] oin&Nit. 2-01 07-15 capsule by ity of [place] 00:00: 05:59 mouth in [place] (MACROBID) 00 :00 the Medical 100 mg morning Branch capsule and 1 capsule in the evening. Do all this for 7 days. Nitrofurant 3-0 2023- No [id number] 100mg Take 1 [facility] oin&Nit. 2- 02-15 capsule by ity of [place] 00:00: 05:59 mouth in [place] (MACROBID) 00 :00 the Medical 100 mg morning Branch capsule and 1 capsule in the evening. Do all this for 7 days. Nitrofurant 3-0 2023- No [id number] 100mg Take 1 [facility] oin&Nit. 2- 02-15 capsule by ity of [place] 00:00: 05:59 mouth in [place] (MACROBID) 00 :00 the Medical 100 mg morning Branch capsule and 1 capsule in the evening. Do all this for 7 days. Nitrofurant 2023-0 2023- No [id number] 100mg Take 1 [facility] oin&Nit. 2- 02-15 capsule by ity of [place] 00:00: 05:59 mouth in [place] (MACROBID) 00 :00 the Medical 100 mg morning Branch capsule and 1 capsule in the evening. Do all this for 7 days. Nitrofurant 2023-0 2023- No [id number] 100mg Take 1 [facility] oin&Nit. 2-15 capsule by ity of [place] 00:00: 05:59 mouth in [place] (MACROBID) 00 :00 the Medical 100 mg morning Branch capsule and 1 capsule in the evening. Do all this for 7 days. Nitrofurant 2023-0 2023- No [id number] 100mg Take 1 [facility] oin&Nit. 2-15 capsule by ity of [place] 00:00: 05:59 mouth in [place] (MACROBID) 00 :00 the Medical 100 mg morning Branch capsule and 1 capsule in the evening. Do all this for 7 days. levetiracet 2023-0 Yes 500mg Take 500 U nivers am (KEPPRA 2-03 mg by ity of ORAL) 15:27: mouth [address] [place] [address] (two) Medical times Branch daily. levetiracet 2023-0 Yes 500mg Take 500 U nivers am (KEPPRA 2-03 mg by ity of ORAL) 15:27: mouth [address] [place] [address] (two) Medical times Branch daily. levetiracet 2023-0 Yes 500mg Take 500 U nivers am (KEPPRA 2-03 mg by ity of ORAL) 15:27: mouth [address] [place] [address] (two) Medical times Branch daily. levetiracet 2023-0 Yes 500mg Take 500 U nivers am (KEPPRA 2-03 mg by ity of ORAL) 15:27: mouth [address] [place] [address] (two) Medical times Branch daily. levetiracet 2023-0 Yes 500mg Take 500 U nivers am (KEPPRA 2-03 mg by ity of ORAL) 15:27: mouth [address] [place] [address] (two) Medical times Branch daily. levetiracet 2023-0 Yes 500mg Take 500 U nivers am (KEPPRA 2-03 mg by ity of ORAL) 15:27: mouth [address] [place] [address] (two) Medical times Branch daily. levetiracet 2023-0 Yes 500mg Take 500 U nivers am (KEPPRA 2-03 mg by ity of ORAL) 15:27: mouth [address] [place] [address] (two) Medical times Branch daily. levetiracet 2023-0 Yes 500mg Take 500 U nivers am (KEPPRA 2-03 mg by ity of ORAL) 15:27: mouth [address] [place] [address] (two) Medical times Branch daily. levetiracet 2023-0 Yes 500mg Take 500 U nivers am (KEPPRA 2-03 mg by ity of ORAL) 15:27: mouth [address] [place] [address] (two) Medical times Branch daily. levetiracet 2023-0 Yes 500mg Take 500 U nivers am (KEPPRA 2-03 mg by ity of ORAL) 15:27: mouth [address] [place] [address] (two) Medical times Branch daily. levetiracet 2023-0 Yes 500mg Take 500 U nivers am (KEPPRA 2-03 mg by ity of ORAL) 15:27: mouth [address] [place] [address] (two) Medical times Branch daily. levetiracet 2023-0 Yes 500mg Take 500 U nivers am (KEPPRA 2-03 mg by ity of ORAL) 15:27: mouth [address] [place] [address] (two) Medical times Branch daily. levetiracet 2023-0 Yes 500mg Take 500 U nivers am (KEPPRA 2-03 mg by ity of ORAL) 15:27: mouth [address] [place] [address] (two) Medical times Branch daily. levetiracet 2023-0 Yes 500mg Take 500 U nivers am (KEPPRA 2-03 mg by ity of ORAL) 15:27: mouth [address] [place] [address] (two) Medical times Branch daily. levetiracet 2023-0 Yes 500mg Take 500 U nivers am (KEPPRA 2-03 mg by ity of ORAL) 15:27: mouth [address] [place] [address] (two) Medical times Branch daily. levetiracet 2023-0 Yes 500mg Take 500 U nivers am (KEPPRA 2-03 mg by ity of ORAL) 15:27: mouth [address] [place] [address] (two) Medical times Branch daily. levetiracet 2023-0 Yes 500mg Take 500 U nivers am (KEPPRA 2-03 mg by ity of ORAL) 15:27: mouth [address] [place] [address] (two) Medical times Branch daily. levetiracet 2023-0 Yes 500mg Take 500 U nivers am (KEPPRA 2-03 mg by ity of ORAL) 15:27: mouth [address] [place] [address] (two) Medical times Branch daily. levetiracet 2023-0 Yes 500mg Take 500 U nivers am (KEPPRA 2-03 mg by ity of ORAL) 15:27: mouth [address] [place] [address] (two) Medical times Branch daily. levetiracet 2023-0 Yes 500mg Take 500 U nivers am (KEPPRA 2-03 mg by ity of ORAL) 15:27: mouth [address] [place] [address] (two) Medical times Branch daily. levetiracet 2023-0 Yes 500mg Take 500 U nivers am (KEPPRA 2-03 mg by ity of ORAL) 15:27: mouth [address] [place] [address] (two) Medical times Branch daily. levetiracet 2023-0 Yes 500mg Take 500 U nivers am (KEPPRA 2-03 mg by ity of ORAL) 15:27: mouth [address] [place] [address] (two) Medical times Branch daily. levetiracet 2023-0 Yes 500mg Take 500 U nivers am (KEPPRA 2-03 mg by ity of ORAL) 15:27: mouth [address] [place] [address] (two) Medical times Branch daily. levetiracet 2023-0 Yes 500mg Take 500 U nivers am (KEPPRA 2-03 mg by ity of ORAL) 15:27: mouth [address] [place] [address] (two) Medical times Branch daily. levetiracet 2023-0 Yes 500mg Take 500 U nivers am (KEPPRA 2-03 mg by ity of ORAL) 15:27: mouth [address] [place] [address] (two) Medical times Branch daily. levetiracet 2023-0 Yes 500mg Take 500 U nivers am (KEPPRA 2-03 mg by ity of ORAL) 15:27: mouth [address] [place] [address] (two) Medical times Branch daily. levetiracet 2023-0 Yes 500mg Take 500 U nivers am (KEPPRA 2-03 mg by ity of ORAL) 15:27: mouth [address] [place] [address] (two) Medical times Branch daily. levetiracet 2023-0 Yes 500mg Take 500 U nivers am (KEPPRA 2-03 mg by ity of ORAL) 15:27: mouth [address] [place] [address] (two) Medical times Branch daily. levetiracet 2023-0 Yes 500mg Take 500 U nivers am (KEPPRA 2-03 mg by ity of ORAL) 15:27: mouth 2 [place] [address] (two) Medical times Branch daily. levetiracet 2023-0 Yes 500mg Take 500 U nivers am (KEPPRA 2-03 mg by ity of ORAL) 15:27: mouth 2 [place] [address] (two) Medical times Branch daily. levetiracet 2023-0 Yes 500mg Take 500 U nivers am (KEPPRA 2-03 mg by ity of ORAL) 15:27: mouth 2 [place] [address] (two) Medical times Branch daily. levetiracet 2023-0 Yes 500mg Take 500 U nivers am (KEPPRA 2-03 mg by ity of ORAL) 15:27: mouth 2 [place] [address] (two) Medical times Branch daily. levothyroxi 2022-0 Yes 88ug 88 mcg, Uni vers ne 03 Oral, ity of (SYNTHROID) 12:00: QAM-0600, [place] tablet 88 00 First dose Medi janet mcg on Sun Branch 08/11/22 at 0600, Until Discontinu ed, Routine Total 2022- No at 52 Univers Parenteral 08-11 02-04 mL/hr, ity of Nutrition 03:00: 02:59 1,250 mL, [place] Adult 00 :00 TPNCONTINU Medical OUS, Branch Starting on Sun08/10/22 at 2100, Until Sun08/11/22 at 205 acetaZOLAMI 0 Yes 500mg 500 mg, Un rby [place] (DIAMOX) 03 Oral, BID, it y of tablet 500 02:00: First dose [place] mg 00 on [facility] Medical 08/10/22 at Branch 2000, Until Discontinu ed vancomycin 2022- No 15mg/kg 1,500 mg Univers 1500 mg in 08-10 (rounded ity of NS 500 mL 20:00: 19:59 from [place] IV 00 :00 1,543.5 mg Medical Piggyback [...] Discontinu ed, Routine, Muscle Spasms doxycycline 2022-0 2023- No 100mg 100 mg, U nivers hyclate 08-10 Oral, ity of (Vibramycin 00:00: 19:21 Q12HA2, 10 [place] ) capsule 00 :39 doses, Medical 100 mg First dose Branch on Sun08/09/22 at 1800, Last dose on Sun08/14/22 at 0600, VESNA
Re ason for Anti-Infec tive: Documented Infection< br>Documen ebenezer Infection Site: Respirator y
Durat ion of Therapy: Other (see Comments) proMETHazin 2022-0 Yes 50mg 50 mg, Univ ers e [...] [place] mg 00 First dose Medical on Sun08/09/22 at 0900, Until Discontinu ed, Routine clonazePAM 2022-0 Yes 1mg 1 mg, Univer s (KLONOPIN) 08-09 Oral, ity of tablet 1 mg 15:00: DAILY, [place] 00 First dose Medical on Sun08/09/22 at 0900, Until Discontinu ed, Routine apixaban 2022-0 Yes 5523 5mg 5 mg, Univers (ELIQUIS) 08-09 Oral, BID, ity of tablet 5 mg 14:00: First dose [place] 00 on Sun08/09/22 at Branch 0800, Until Discontinu ed, Routine
Indicatio ns: DVT/PE pramipexole 2022-0 Yes .25mg 0.25 mg, U nivers (MIRAPEX) 08-09 Oral, BID, ity of tablet 0.25 14:00: First dose [place] mg 00 on Sun [facility] 08/09/22 at Branch 0800, Until Discontinu ed, Routine lipase-prot 2022-0 Yes 1{capsu 1 capsule, Univers ease-amylas 08-09 le} Oral, TID ity of e 14:00: MEALS, [place] (PANCREAZE) First dose Me dical 10,500-35,5 on Sun 00- 61,500 08/09/22 at unit 0800, capsule 1 Until capsule Discontinu ed levothyroxi 2022-0 Yes 100ug 100 mcg, U nivers ne 08-09 Oral, ity of (SYNTHROID) 12:00: QAM-0600, [place] tablet 100 00 First dose Med ical mcg on Sun08/09/22 at 0600, Until Discontinu ed, Routine levETIRAcet 2022-0 Yes 500mg 500 mg, Un bry am (KEPPRA) 08-09 Oral, BID, it y of tablet 500 08:30: First dose [place] mg 00 on Sun [facility] 08/09/22 at Branch 0230, Until Discontinu ed imipramine 2022-0 Yes 10mg 10 mg, Unive rs (TOFRANIL) 08-09 Oral, QHS, ity of tablet 10 08:30: First dose [place] mg 00 on Sun08/09/22 at Branch 0230, Until Discontinu ed, Routine amitriptyli Yes 10mg 10 mg, Univ ers ne (ELAVIL) 08-09 Oral, QHS, it y of tablet 10 08:30: First dose [place] mg 00 on [facility] Medical 08/09/22 at Branch 0230, Until Discontinu ed, Routine acetaminoph Yes 650mg 650 mg, Un bry en 08-09 Oral, ity of (TYLENOL) 08:14: Q6HPRN, [place] tablet 650 16 Starting Medic al mg on Sun [place] 08/09/22 at 0214, Until Discontinu ed, Routine, Pain (scale 1-3) proMETHazin 2022- No 25mg 25 mg, IV Univers e 08-09 Piggyback, ity of (PHENERGAN) 05:45: 05:04 ONCE, 1 [place] 25 mg in 00 :00 dose, On [facility] NaCl 0.9% [facility] (NS) 50 mL 08/08/22 at IV 2345, VESNA piggyback aspirin 2022- No 325mg 325 mg, [facility] rs tablet 325 08-09 Oral, ity of mg 02:30: 02:47 ONCE, 1 [place] 00 :00 dose, On [facility] 08/08/22 at 2030, STAT levetiracet Yes 500mg Take 500 U nivers am (KEPPRA 2-01 mg by ity of ORAL) 02:15: mouth 2 [place] 10 (two) Medical times [place] daily. iopamidol 2022- No [id number] 79mL 79 mL, U nivers (ISOVUE 08-09 Intravenou ity o f 370-500 mL) 01:45: 01:45 s, ONCE, 1 [place] injection 00 :00 dose, On Medica l 79 mL [facility] 08/08/22 at 1945, Routine NaCl 0.9% 2022- No 500mL at 999 [facility] ers (NS) bolus 08-08 mL/hr, 500 it y of infusion 23:15: 02:30 mL, IV [place] 500 mL 00 :00 Infusion, Medical ONCE, 1 Branch dose, On [facility] 08/08/22 at 1715, STAT proMETHazin 2022- No 25mg 25 mg, IV [...] 08/08/22 at 1630, Routine traMADoL 50 2022- No [id number] 50mg Take 1 Uni vers mg tablet 08-04 tablet by ity of 00:00: 05:59 mouth [place] 00 :00 every 4 Medical (four) Branch hours as needed for Pain (scale 7-10) for up to 7 days. Indication s: acute pain traMADoL 50 2022-2022- No [id number] 50mg Take 1 Uni vers [...] Indication s: acute pain traMADoL 50 2022-2022- No [id number] 50mg Take 1 Uni vers mg tablet 08-04 tablet by ity of 00:00: 05:59 mouth [place] 00 :00 every 4 Medical (four) Branch hours as needed for Pain (scale 7-10) for up to 7 days. Indication s: acute pain traMADoL 50 2022-0 2022- No [id number] 50mg Take 1 Uni vers mg tablet 08-0404 tablet by ity of 00:00: 05:59 mouth [...] ty of succ 15:30: 14:51 lar, ONCE [place] (SOLU-MEDRO 00 :00 NOW, 1 Medica l L) dose, On Branch injection [place] 125 mg 08/03/22 at 0930, VESNA diazePAM 2022-0 Yes [id number] 5mg Take 1 Uni vers (VALIUM) 5 - tablet by ity of mg tablet 00:00: mouth (three) Medical times Branch daily as needed for Muscle Spasms. diazePAM 2022-0 Yes [id number] 5mg Take 1 Uni vers (VALIUM) 5 - tablet by ity of mg tablet 00:00: mouth 3 (three) Medical times Branch daily as needed for Muscle Spasms. diazePAM 2022-0 Yes [id number] 5mg Take 1 Uni vers (VALIUM) 5 -26 tablet by ity of mg tablet 00:00: mouth 3 (three) Medical times Branch daily as needed for Muscle Spasms. diazePAM 2022-0 Yes [id number] 5mg Take 1 Uni vers (VALIUM) 5 1-26 tablet by ity of mg tablet 00:00: mouth 3 (three) Medical times Branch daily as needed for Muscle Spasms. diazePAM 2022-0 Yes [id number] 5mg Take 1 Uni vers (VALIUM) 5 1-26 tablet by ity of mg tablet 00:00: mouth 3 (three) Medical times Branch daily as needed for Muscle Spasms. diazePAM 2022-0 Yes [id number] 5mg Take 1 Uni vers (VALIUM) 5 1-26 tablet by ity of mg tablet 00:00: mouth 3 (three) Medical times Branch daily as needed for Muscle Spasms. diazePAM 2022-0 Yes [id number] 5mg Take 1 Uni vers (VALIUM) 5 1-26 tablet by ity of mg tablet 00:00: mouth (three) Medical times Branch daily as needed for Muscle Spasms. diazePAM 2022-0 Yes [id number] 5mg Take 1 Uni vers (VALIUM) 5 1-26 tablet by ity of mg tablet 00:00: mouth (three) Medical times Branch daily as needed for Muscle Spasms. diazePAM 2022-0 Yes [id number] 5mg Take 1 Uni vers (VALIUM) 5 1-26 tablet by ity of mg tablet 00:00: mouth (three) Medical times Branch daily as needed for Muscle Spasms. diazePAM 2022-0 Yes [id number] 5mg Take 1 Uni vers (VALIUM) 5 1-26 tablet by ity of mg tablet 00:00: mouth (three) Medical times Branch daily as needed for Muscle Spasms. diazePAM 2022-0 Yes [id number] 5mg Take 1 Uni vers (VALIUM) 5 1-26 tablet by ity of mg tablet 00:00: mouth (three) Medical times Branch daily as needed for Muscle Spasms. diazePAM 2022-0 Yes [id number] 5mg Take 1 Uni vers (VALIUM) 5 1-26 tablet by ity of mg tablet 00:00: mouth 3 (three) Medical times Branch daily as needed for Muscle Spasms. diazePAM 2022-0 Yes [id number] 5mg Take 1 Uni vers (VALIUM) 5 1-26 tablet by ity of mg tablet 00:00: mouth (three) Medical times Branch daily as needed for Muscle Spasms. diazePAM 2022-0 Yes [id number] 5mg Take 1 Uni vers (VALIUM) 5 1-26 tablet by ity of mg tablet 00:00: mouth (three) Medical times Branch daily as needed for Muscle Spasms. diazePAM 2022-0 Yes [id number] 5mg Take 1 Uni vers (VALIUM) 5 1-26 tablet by ity of mg tablet 00:00: mouth (three) Medical times Branch daily as needed for Muscle Spasms. diazePAM 2022-0 Yes [id number] 5mg Take 1 Uni vers (VALIUM) 5 1-26 tablet by ity of mg tablet 00:00: mouth (three) Medical times Branch daily as needed for Muscle Spasms. diazePAM 2022-0 Yes [id number] 5mg Take 1 Uni vers (VALIUM) 5 1-26 tablet by ity of mg tablet 00:00: mouth (three) Medical times Branch daily as needed for Muscle Spasms. diazePAM 2022-0 Yes [id number] 5mg Take 1 Uni vers (VALIUM) 5 1-26 tablet by ity of mg tablet 00:00: mouth (three) Medical times Branch daily as needed for Muscle Spasms. diazePAM 2022-0 Yes [id number] 5mg Take 1 Uni vers (VALIUM) 5 1-26 tablet by ity of mg tablet 00:00: mouth (three) Medical times Branch daily as needed for Muscle Spasms. diazePAM 2022-0 Yes [id number] 5mg Take 1 Uni vers (VALIUM) 5 1-26 tablet by ity of mg tablet 00:00: mouth (three) Medical times Branch daily as needed for Muscle Spasms. diazePAM 2022-0 Yes [id number] 5mg Take 1 Uni vers (VALIUM) 5 1-26 tablet by ity of mg tablet 00:00: mouth (three) Medical times Branch daily as needed for Muscle Spasms. diazePAM 3-0 Yes [id number] 5mg Take 1 Uni vers (VALIUM) 5 1-26 tablet by ity of mg tablet 00:00: mouth 3 (three) Medical times Branch daily as needed for Muscle Spasms. diazePAM 3-0 Yes [id number] 5mg Take 1 Uni vers (VALIUM) 5 1-26 tablet by ity of mg tablet 00:00: mouth 3 (three) Medical times Branch daily as needed for Muscle Spasms. diazePAM 2022-0 Yes [id number] 5mg Take 1 Uni vers (VALIUM) 5 1-26 tablet by ity of mg tablet 00:00: mouth (three) Medical times Branch daily as needed for Muscle Spasms. diazePAM 2022-0 Yes [id number] 5mg Take 1 [facility]-26 tablet [facility] tablet 00:00: mouth (three) [facility] times [facility] daily as needed for Muscle Spasms. diazePAM 2022-0 Yes [id number] 5mg Take 1 [facility] 5 1-26 tablet by [facility] tablet 00:00: mouth (three) Medical times [facility] daily as needed for Muscle Spasms. diazePAM 2022-0 Yes [id number] 5mg Take 1 [facility] 5 1-26 tablet by [facility] tablet 00:00: mouth (three) Medical times [facility] daily as needed for Muscle Spasms. diazePAM 2022-0 Yes [id number] 5mg Take 1 [facility] 5 1-26 tablet by [facility] tablet 00:00: mouth (three) Medical times [facility] daily as needed for Muscle Spasms. diazePAM 2022-0 Yes [id number] 5mg Take 1 [facility]) 5 1-26 tablet by [facility] tablet 00:00: mouth (three) Medical times [facility] daily as needed for Muscle Spasms. diazePAM 2022-0 Yes [id number] 5mg Take 1 [facility]) 5 1-26 tablet by [facility] tablet 00:00: mouth (three) Medical times [facility] daily as needed for Muscle Spasms. diazePAM 3-0 Yes [id number] 5mg Take 1 [facility]) 5 1-26 tablet by [facility] tablet 00:00: mouth (three) Medical times [facility] daily as needed for Muscle Spasms. diazePAM 3-0 Yes [id number] 5mg Take 1 [facility]) 5 1-26 tablet by [facility] tablet 00:00: mouth (three) Medical times [facility] daily as needed for Muscle Spasms. diazePAM 3-0 Yes [id number] 5mg Take 1 [facility]) 5 1-26 tablet by [facility] tablet 00:00: mouth (three) Medical times [facility] daily as needed for Muscle Spasms. diazePAM 2022-0 Yes [id number] 5mg Take 1 [facility]) 5 1-26 tablet by [facility] tablet 00:00: mouth 3 (three) Medical times [facility] daily as needed for Muscle Spasms. diazePAM 2022-0 Yes [id number] 5mg Take 1 [facility] ([facility]) 5 1-26 tablet by [facility] tablet 00:00: mouth (three) Medical times [facility] daily as needed for Muscle Spasms. diazePAM 2022-0 Yes [id number] 5mg Take 1 [facility]) 5 1-26 tablet by [facility] tablet 00:00: mouth (three) Medical times [facility] daily as needed for Muscle Spasms. diazePAM 2022-0 Yes [id number] 5mg Take 1 [facility]) 5 1-26 tablet by [facility] tablet 00:00: mouth (three) Medical times [facility] daily as needed for Muscle Spasms. diazePAM 2022-0 Yes [id number] 5mg Take 1 [facility]) 5 1-26 tablet by [facility] tablet 00:00: mouth (three) Medical times [facility] daily as needed for Muscle Spasms. diazePAM 2022-0 Yes [id number] 5mg Take 1 [facility]) 5 1-26 tablet by [facility] tablet 00:00: mouth (three) Medical times [facility] daily as needed for Muscle Spasms. diazePAM 2022-0 Yes [id number] 5mg Take 1 [facility]) 5 1-26 tablet by [facility] tablet 00:00: mouth (three) Medical times [facility] daily as needed for Muscle Spasms. diazePAM 3-0 Yes [id number] 5mg Take 1 [facility]) 5 1-26 tablet by [facility] tablet 00:00: mouth (three) Medical times [facility] daily as needed for Muscle Spasms. diazePAM 2022-0 Yes [id number] 5mg Take 1 [facility]) 5 1-26 tablet by [facility] tablet 00:00: mouth (three) Medical times [facility] daily as needed for Muscle Spasms. diazePAM 2022-0 Yes [id number] 5mg Take 1 [facility]) 5 1-26 tablet by [facility] tablet 00:00: mouth (three) Medical times [facility] daily as needed for Muscle Spasms. diazePAM 2022-0 Yes [id number] 5mg Take 1 [facility]) 5 1-26 tablet by [facility] tablet 00:00: mouth (three) Medical times [facility] daily as needed for Muscle Spasms. diazePAM 2022-0 Yes [id number] 5mg Take 1 [facility]) 5 1-26 tablet by [facility] tablet 00:00: mouth (three) Medical times [facility] daily as needed for Muscle Spasms. diazePAM 2022-0 Yes [id number] 5mg Take 1 [facility]) 5 1-26 tablet by [facility] tablet 00:00: mouth (three) Medical times [facility] daily as needed for Muscle Spasms. diazePAM 2022-0 Yes [id number] 5mg Take 1 [facility]) 5 1-26 tablet by [facility] tablet 00:00: mouth (three) Medical times [facility] daily as needed for Muscle Spasms. diazePAM 2022-0 Yes [id number] 5mg Take 1 [facility]) 5 1-26 tablet by [facility] tablet 00:00: mouth (three) Medical times [facility] daily as needed for Muscle Spasms. diazePAM 2022-0 Yes [id number] 5mg Take 1 [facility]) 5 1-26 tablet by [facility] tablet 00:00: mouth (three) Medical times [facility] daily as needed for Muscle Spasms. diazePAM 2022-0 Yes [id number] 5mg Take 1 [facility]) 5 1-26 tablet by [facility] tablet 00:00: mouth (three) Medical times [facility] daily as needed for Muscle Spasms. diazePAM 3-0 Yes [id number] 5mg Take 1 [facility]) 5 1-26 tablet by [facility] tablet 00:00: mouth (three) Medical times [facility] daily as needed for Muscle Spasms. diazePAM 2022-0 Yes [id number] 5mg Take 1 [facility]) 5 1-26 tablet by [facility] tablet 00:00: mouth 3 (three) Medical times [facility] daily as needed for Muscle Spasms. diazePAM 2022-0 Yes [id number] 5mg Take 1 [facility]) 5 1-26 tablet by [facility] tablet 00:00: mouth 3 (three) Medical times [facility] daily as needed for Muscle Spasms. diazePAM 2022-0 Yes [id number] 5mg Take 1 [facility]) 5 1-26 tablet by [facility] tablet 00:00: mouth (three) Medical times [facility] daily as needed for Muscle Spasms. diazePAM 2022-0 Yes [id number] 5mg Take 1 [facility]) 5 1-26 tablet by [facility] tablet 00:00: mouth (three) Medical times [facility] daily as needed for Muscle Spasms. diazePAM 2022-0 Yes [id number] 5mg Take 1 [facility] ([facility]) 5 1-26 tablet by [facility] tablet 00:00: mouth (three) Medical times [facility] daily as needed for Muscle Spasms. diazePAM 2022-0 Yes [id number] 5mg Take 1 [facility]) 5 1-26 tablet by [facility] tablet 00:00: mouth (three) Medical times [facility] daily as needed for Muscle Spasms. diazePAM 2022-0 Yes [id number] 5mg Take 1 [facility]) 5 1-26 tablet by [facility] tablet 00:00: mouth (three) Medical times [facility] daily as needed for Muscle Spasms. diazePAM 2022-0 Yes [id number] 5mg Take 1 [facility]) 5 1-26 tablet by [facility] tablet 00:00: mouth (three) Medical times [facility] daily as needed for Muscle Spasms. diazePAM 2022-0 Yes [id number] 5mg Take 1 [facility] ([facility]) 5 1-26 tablet by [facility] tablet 00:00: mouth (three) Medical times [facility] daily as needed for Muscle Spasms. diazePAM 2022-0 Yes [id number] 5mg Take 1 [facility] ([facility]) 5 1-26 tablet by [facility] tablet 00:00: mouth (three) Medical times [facility] daily as needed for Muscle Spasms. diazePAM 2022-0 Yes [id number] 5mg Take 1 [facility] ([facility]) 5 1-26 tablet by [facility] tablet 00:00: mouth (three) Medical times [facility] daily as needed for Muscle Spasms. diazePAM 2022-0 Yes [id number] 5mg Take 1 [facility]) 5 1-26 tablet by [facility] tablet 00:00: mouth 3 (three) Medical times [facility] daily as needed for Muscle Spasms. diazePAM 2022-0 Yes [id number] 5mg Take 1 [facility]) 5 1-26 tablet by [facility] tablet 00:00: mouth (three) Medical times [facility] daily as needed for Muscle Spasms. diazePAM 2022-0 Yes [id number] 5mg Take 1 [facility]) 5 1-26 tablet by [facility] tablet 00:00: mouth (three) Medical times [facility] daily as needed for Muscle Spasms. diazePAM 2022-0 Yes [id number] 5mg Take 1 [facility]) 5 1-26 tablet by [facility] tablet 00:00: mouth (three) Medical times [facility] daily as needed for Muscle Spasms. diazePAM 2022-0 Yes [id number] 5mg Take 1 [facility]) 5 1-26 tablet by [facility] tablet 00:00: mouth (three) Medical times [facility] daily as needed for Muscle Spasms. diazePAM 2022-0 Yes [id number] 5mg Take 1 [facility]) 5 1-26 tablet by [facility] tablet 00:00: mouth (three) Medical times [facility] daily as needed for Muscle Spasms. diazePAM 2022-0 Yes [id number] 5mg Take 1 [facility]) 5 1-26 tablet by [facility] tablet 00:00: mouth (three) Medical times [facility] daily as needed for Muscle Spasms. diazePAM 2022-0 Yes [id number] 5mg Take 1 [facility]) 5 1-26 tablet by [facility] tablet 00:00: mouth 3 (three) Medical times [facility] daily as needed for Muscle Spasms. diazePAM 2022-0 Yes [id number] 5mg Take 1 [facility]) 5 1-26 tablet by [facility] tablet 00:00: mouth 3 [place] 00 (three) Medical times Branch daily as needed for Muscle Spasms. diazePAM 2022-0 Yes [id number] 5mg Take 1 [facility]) 5 1-26 tablet by [facility] tablet 00:00: mouth (three) Medical times [facility] daily as needed for Muscle Spasms. diazePAM 2022-0 Yes [id number] 5mg Take 1 [facility]) 5 1-26 tablet by [facility] tablet 00:00: mouth (three) Medical times [facility] daily as needed for Muscle Spasms. diazePAM 2022-0 Yes [id number] 5mg Take 1 [facility]) 5 1-26 tablet by [facility] tablet 00:00: mouth (three) Medical times [facility] daily as needed for Muscle Spasms. diazePAM 2022-0 Yes [id number] 5mg Take 1 [facility]) 5 1-26 tablet by [facility] tablet 00:00: mouth (three) Medical times [facility] daily as needed for Muscle Spasms. diazePAM 2022-0 Yes [id number] 5mg Take 1 [facility] ([facility]) 5 1-26 tablet by [facility] tablet 00:00: mouth (three) Medical times [facility] daily as needed for Muscle Spasms. diazePAM 2022-0 Yes [id number] 5mg Take 1 [facility] ([facility]) 5 1-26 tablet by [facility] tablet 00:00: mouth (three) Medical times [facility] daily as needed for Muscle Spasms. diazePAM 2022-0 Yes [id number] 5mg Take 1 [facility] ([facility]) 5 1-26 tablet by [facility] tablet 00:00: mouth (three) Medical times [facility] daily as needed for Muscle Spasms. diazePAM 2022-0 Yes [id number] 5mg Take 1 [facility] ([facility]) 5 1-26 tablet by [facility] tablet 00:00: mouth (three) Medical times [facility] daily as needed for Muscle Spasms. diazePAM 2022-0 Yes [id number] 5mg Take 1 [facility]) 5 1-26 tablet by [facility] tablet 00:00: mouth (three) Medical times [facility] daily as needed for Muscle Spasms. diazePAM 2022-0 Yes [id number] 5mg Take 1 [facility]) 5 1-26 tablet by [facility] tablet 00:00: mouth 3 (three) Medical times Branch daily as needed for Muscle Spasms. diazePAM 2022-0 Yes [id number] 5mg Take 1 [facility]) 5 1-26 tablet by [facility] tablet 00:00: mouth 3 (three) Medical times [facility] daily as needed for Muscle Spasms. diazePAM 2022-0 Yes [id number] 5mg Take 1 [facility] ([facility]) 5 1-26 tablet by [facility] tablet 00:00: mouth (three) Medical times [facility] daily as needed for Muscle Spasms. diazePAM 2022-0 Yes [id number] 5mg Take 1 [facility] ([facility]) 5 1-26 tablet by [facility] tablet 00:00: mouth (three) Medical times [facility] daily as needed for Muscle Spasms. diazePAM 2022-0 Yes [id number] 5mg Take 1 [facility] ([facility]) 5 1-26 tablet by [facility] tablet 00:00: mouth (three) Medical times [facility] daily as needed for Muscle Spasms. diazePAM 2022-0 Yes [id number] 5mg Take 1 [facility] ([facility]) 5 1-26 tablet by [facility] tablet 00:00: mouth (three) Medical times [facility] daily as needed for Muscle Spasms. diazePAM 2022-0 Yes [id number] 5mg Take 1 [facility] ([facility]) 5 1-26 tablet by [facility] tablet 00:00: mouth (three) Medical times [facility] daily as needed for Muscle Spasms. diazePAM 2022-0 Yes [id number] 5mg Take 1 [facility] ([facility]) 5 1-26 tablet by [facility] tablet 00:00: mouth (three) Medical times [facility] daily as needed for Muscle Spasms. diazePAM 3-0 Yes [id number] 5mg Take 1 [facility] ([facility]) 5 1-26 tablet by [facility] tablet 00:00: mouth (three) Medical times [facility] daily as needed for Muscle Spasms. diazePAM 3-0 Yes [id number] 5mg Take 1 [facility] ([facility]) 5 1-26 tablet by [facility] tablet 00:00: mouth (three) Medical times Branch daily as needed for Muscle Spasms. diazePAM 3-0 Yes [id number] 5mg Take 1 [facility] ([facility]) 5 1-26 tablet by [facility] tablet 00:00: mouth (three) Medical times Branch daily as needed for Muscle Spasms. diazePAM 3-0 Yes [id number] 5mg Take 1 [facility] ([facility]) 5 1-26 tablet by [facility] tablet 00:00: mouth (three) Medical times Branch daily as needed for Muscle Spasms. diazePAM 3-0 Yes [id number] 5mg Take 1 [facility] ([facility]) 5 1-26 tablet by [facility] tablet 00:00: mouth (three) Medical times [facility] daily as needed for Muscle Spasms. diazePAM 3-0 Yes [id number] 5mg Take 1 [facility] ([facility]) 5 1-26 tablet by [facility] tablet 00:00: mouth (three) Medical times Branch daily as needed for Muscle Spasms. diazePAM 3-0 Yes [id number] 5mg Take 1 [facility] ([facility]) 5 1-26 tablet by [facility] tablet 00:00: mouth (three) Medical times Branch daily as needed for Muscle Spasms. diazePAM 3-0 Yes [id number] 5mg Take 1 [facility] ([facility]) 5 1-26 tablet by [facility] tablet 00:00: mouth (three) Medical times [facility] daily as needed for Muscle Spasms. diazePAM 3-0 Yes [id number] 5mg Take 1 [facility] ([facility]) 5 1-26 tablet by [facility] tablet 00:00: mouth (three) Medical times [facility] daily as needed for Muscle Spasms. diazePAM 3-0 Yes [id number] 5mg Take 1 [facility] ([facility]) 5 1-26 tablet by [facility] tablet 00:00: mouth (three) Medical times [facility] daily as needed for Muscle Spasms. diazePAM 2023-0 Yes [id number] 5mg Take 1 [facility] ([facility]) 5 1-26 tablet by [facility] tablet 00:00: mouth (three) Medical times Branch daily as needed for Muscle Spasms. diazePAM 2023-0 Yes [id number] 5mg Take 1 [facility] ([facility]) 5 1-26 tablet by [facility] tablet 00:00: mouth 3 (three) Medical times Branch daily as needed for Muscle Spasms. diazePAM 2022-0 Yes [id number] 5mg Take 1 [facility] ([facility]) 5 1-26 tablet by [facility] tablet 00:00: mouth (three) Medical times Branch daily as needed for Muscle Spasms. diazePAM 2022-0 Yes [id number] 5mg Take 1 [facility] ([facility]) 5 1-26 tablet by [facility] tablet 00:00: mouth (three) Medical times Branch daily as needed for Muscle Spasms. diazePAM 2022-0 Yes [id number] 5mg Take 1 [facility] ([facility]) 5 1-26 tablet by [facility] tablet 00:00: mouth (three) Medical times Branch daily as needed for Muscle Spasms. diazePAM 2022-0 Yes [id number] 5mg Take 1 [facility] ([facility]) 5 1-26 tablet by [facility] tablet 00:00: mouth (three) Medical times Branch daily as needed for Muscle Spasms. diazePAM 2022-0 Yes [id number] 5mg Take 1 [facility] ([facility]) 5 1-26 tablet by [facility] tablet 00:00: mouth (three) Medical times Branch daily as needed for Muscle Spasms. diazePAM 2022-0 Yes [id number] 5mg Take 1 [facility] ([facility]) 5 1-26 tablet by [facility] tablet 00:00: mouth (three) Medical times Branch daily as needed for Muscle Spasms. diazePAM 2022-0 Yes [id number] 5mg Take 1 [facility] ([facility]) 5 1-26 tablet by [facility] tablet 00:00: mouth (three) Medical times Branch daily as needed for Muscle Spasms. diazePAM 2022-0 Yes [id number] 5mg Take 1 [facility] ([facility]) 5 1-26 tablet by [facility] tablet 00:00: mouth (three) Medical times Branch daily as needed for Muscle Spasms. diazePAM 2022-0 Yes [id number] 5mg Take 1 [facility] ([facility]) 5 1-26 tablet by [facility] tablet 00:00: mouth (three) Medical times Branch daily as needed for Muscle Spasms. diazePAM 2022-0 Yes [id number] 5mg Take 1 [facility] ([facility]) 5 1-26 tablet by [facility] tablet 00:00: mouth (three) Medical times Branch daily as needed for Muscle Spasms. diazePAM 2022-0 Yes [id number] 5mg Take 1 [facility] ([facility]) 5 1-26 tablet by [facility] tablet 00:00: mouth (three) Medical times Branch daily as needed for Muscle Spasms. diazePAM 2022-0 Yes [id number] 5mg Take 1 [facility] ([facility]) 5 1-26 tablet by [facility] tablet 00:00: mouth (three) Medical times Branch daily as needed for Muscle Spasms. diazePAM 2022-0 Yes [id number] 5mg Take 1 [facility] ([facility]) 5 1-26 tablet by [facility] tablet 00:00: mouth (three) Medical times Branch daily as needed for Muscle Spasms. diazePAM 2022-0 Yes [id number] 5mg Take 1 [facility] ([facility]) 5 1-26 tablet by [facility] tablet 00:00: mouth (three) Medical times Branch daily as needed for Muscle Spasms. diazePAM 2022-0 Yes [id number] 5mg Take 1 [facility] ([facility]) 5 1-26 tablet by [facility] tablet 00:00: mouth (three) Medical times Branch daily as needed for Muscle Spasms. diazePAM 2022-0 Yes [id number] 5mg Take 1 [facility]) 5 1-26 tablet by [facility] tablet 00:00: mouth (three) Medical times Branch daily as needed for Muscle Spasms. diazePAM 2022-0 Yes [id number] 5mg Take 1 [facility] ([facility]) 5 1-26 tablet by [facility] tablet 00:00: mouth (three) Medical times Branch daily as needed for Muscle Spasms. diazePAM 3-0 Yes [id number] 5mg Take 1 [facility]) 5 1-26 tablet by [facility] tablet 00:00: mouth (three) Medical times Branch daily as needed for Muscle Spasms. diazePAM 2022-0 Yes [id number] 5mg Take 1 [facility] ([facility]) 5 1-26 tablet by [facility] tablet 00:00: mouth (three) Medical times Branch daily as needed for Muscle Spasms. diazePAM 2022-0 Yes [id number] 5mg Take 1 [facility] ([facility]) 5 1-26 tablet by [facility] tablet 00:00: mouth (three) Medical times Branch daily as needed for Muscle Spasms. diazePAM 2022-0 Yes [id number] 5mg Take 1 [facility] ([facility]) 5 1-26 tablet by [facility] tablet 00:00: mouth (three) Medical times Branch daily as needed for Muscle Spasms. diazePAM 2022-0 Yes [id number] 5mg Take 1 [facility] ([facility]) 5 1-26 tablet by [facility] tablet 00:00: mouth (three) Medical times Branch daily as needed for Muscle Spasms. diazePAM 2022-0 Yes [id number] 5mg Take 1 [facility] ([facility]) 5 1-26 tablet by [facility] tablet 00:00: mouth (three) Medical times Branch daily as needed for Muscle Spasms. diazePAM 2022-0 Yes [id number] 5mg Take 1 [facility] ([facility]) 5 1-26 tablet by [facility] tablet 00:00: mouth (three) Medical times Branch daily as needed for Muscle Spasms. diazePAM 2022-0 Yes [id number] 5mg Take 1 [facility] ([facility]) 5 1-26 tablet by [facility] tablet 00:00: mouth (three) Medical times Branch daily as needed for Muscle Spasms. diazePAM 3-0 Yes [id number] 5mg Take 1 [facility] ([facility]) 5 1-26 tablet by [facility] tablet 00:00: mouth (three) Medical times Branch daily as needed for Muscle Spasms. diazePAM 3-0 Yes [id number] 5mg Take 1 [facility] ([facility]) 5 1-26 tablet by [facility] mg tablet 00:00: mouth (three) Medical times Branch daily as needed for Muscle Spasms. diazePAM 2023-0 Yes [id number] 5mg Take 1 [facility] ([facility]) 5 1-26 tablet by [facility] mg tablet 00:00: mouth (three) Medical times Branch daily as needed for Muscle Spasms. diazePAM 3-0 Yes [id number] 5mg Take 1 [facility] ([facility]) 5 1-26 tablet by [facility] tablet 00:00: mouth 3 (three) Medical times Branch daily as needed for Muscle Spasms. diazePAM 2022-0 Yes [id number] 5mg Take 1 [facility] ([facility]) 5 1-26 tablet by [facility] tablet 00:00: mouth 3 (three) Medical times Branch daily as needed for Muscle Spasms. diazePAM 2022-0 Yes [id number] 5mg Take 1 [facility] ([facility]) 5 1-26 tablet by [facility] tablet 00:00: mouth 3 (three) Medical times Branch daily as needed for Muscle Spasms. diazePAM 2022-0 Yes [id number] 5mg Take 1 [facility] ([facility]) 5 1-26 tablet by [facility] tablet 00:00: mouth (three) Medical times Branch daily as needed for Muscle Spasms. diazePAM 2022-0 Yes [id number] 5mg Take 1 [facility] ([facility]) 5 1-26 tablet by [facility] tablet 00:00: mouth (three) Medical times Branch daily as needed for Muscle Spasms. diazePAM 2022-0 Yes [id number] 5mg Take 1 [facility] ([facility]) 5 1-26 tablet by [facility] tablet 00:00: mouth (three) Medical times Branch daily as needed for Muscle Spasms. diazePAM 2022-0 Yes [id number] 5mg Take 1 [facility] ([facility]) 5 1-26 tablet by [facility] tablet 00:00: mouth (three) Medical times Branch daily as needed for Muscle Spasms. diazePAM 2022-0 Yes [id number] 5mg Take 1 [facility] ([facility]) 5 1-26 tablet by [facility] tablet 00:00: mouth (three) Medical times Branch daily as needed for Muscle Spasms. diazePAM 2022-0 Yes [id number] 5mg Take 1 [facility] ([facility]) 5 1-26 tablet by [facility] tablet 00:00: mouth 3 (three) Medical times Branch daily as needed for Muscle Spasms. diazePAM 2022-0 Yes [id number] 5mg Take 1 [facility] ([facility]) 5 1-26 tablet by [facility] tablet 00:00: mouth (three) Medical times Branch daily as needed for Muscle Spasms. diazePAM 2022-0 Yes [id number] 5mg Take 1 [facility] ([facility]) 5 1-26 tablet by [facility] tablet 00:00: mouth (three) Medical times Branch daily as needed for Muscle Spasms. diazePAM 2022-0 Yes [id number] 5mg Take 1 [facility] ([facility]) 5 1-26 tablet by [facility] mg tablet 00:00: mouth (three) Medical times Branch daily as needed for Muscle Spasms. diazePAM 2022-0 Yes [id number] 5mg Take 1 [facility] ([facility]) 5 1-26 tablet by [facility] mg tablet 00:00: mouth (three) Medical times Branch daily as needed for Muscle Spasms. diazePAM 2022-0 Yes [id number] 5mg Take 1 [facility] ([facility]) 5 1-26 tablet by [facility] mg tablet 00:00: mouth (three) Medical times Branch daily as needed for Muscle Spasms. diazePAM 2022-0 Yes [id number] 5mg Take 1 [facility] ([facility]) 5 1-26 tablet by [facility] mg tablet 00:00: mouth (three) Medical times Branch daily as needed for Muscle Spasms. diazePAM 2022-0 Yes [id number] 5mg Take 1 [facility] ([facility]) 5 1-26 tablet by [facility] mg tablet 00:00: mouth (three) Medical times Branch daily as needed for Muscle Spasms. diazePAM 2022-0 Yes [id number] 5mg Take 1 [facility] ([facility]) 5 1-26 tablet by [facility] mg tablet 00:00: mouth (three) Medical times Branch daily as needed for Muscle Spasms. diazePAM 2022-0 Yes [id number] 5mg Take 1 [facility] ([facility]) 5 1-26 tablet by [facility] mg tablet 00:00: mouth (three) Medical times Branch daily as needed for Muscle Spasms. diazePAM 3-0 Yes [id number] 5mg Take 1 [facility] ([facility]) 5 1-26 tablet by [facility] mg tablet 00:00: mouth 3 (three) Medical times Branch daily as needed for Muscle Spasms. diazePAM 3-0 Yes [id number] 5mg Take 1 [facility] ([facility]) 5 1-26 tablet by [facility] mg tablet 00:00: mouth 3 (three) Medical times Branch daily as needed for Muscle Spasms. diazePAM 2022-0 Yes [id number] 5mg Take 1 [facility] ([facility]) 5 1-26 tablet by [facility] mg tablet 00:00: mouth (three) Medical times Branch daily as needed for Muscle Spasms. diazePAM 2022-0 Yes [id number] 5mg Take 1 [facility] ([facility]) 5 1-26 tablet by [facility] mg tablet 00:00: mouth (three) Medical times Branch daily as needed for Muscle Spasms. diazePAM 2022-0 Yes [id number] 5mg Take 1 [facility] ([facility]) 5 1-26 tablet by [facility] mg tablet 00:00: mouth (three) Medical times Branch daily as needed for Muscle Spasms. diazePAM 2022-0 Yes [id number] 5mg Take 1 [facility] ([facility]) 5 1-26 tablet by [facility] mg tablet 00:00: mouth (three) Medical times Branch daily as needed for Muscle Spasms. diazePAM 2022-0 Yes [id number] 5mg Take 1 [facility] ([facility]) 5 1-26 tablet by [facility] mg tablet 00:00: mouth (three) Medical times Branch daily as needed for Muscle Spasms. diazePAM 2022-0 Yes [id number] 5mg Take 1 [facility] ([facility]) 5 1-26 tablet by [facility] mg tablet 00:00: mouth (three) Medical times Branch daily as needed for Muscle Spasms. diazePAM 2022-0 Yes [id number] 5mg Take 1 [facility] ([facility]) 5 1-26 tablet by [facility] mg tablet 00:00: mouth (three) Medical times Branch daily as needed for Muscle Spasms. diazePAM 3-0 Yes [id number] 5mg Take 1 [facility] ([facility]) 5 1-26 tablet by [facility] mg tablet 00:00: mouth (three) Medical times Branch daily as needed for Muscle Spasms. diazePAM 3-0 Yes [id number] 5mg Take 1 [facility] ([facility]) 5 1-26 tablet by [facility] mg tablet 00:00: mouth (three) Medical times Branch daily as needed for Muscle Spasms. diazePAM 3-0 Yes [id number] 5mg Take 1 [facility] ([facility]) 5 1-26 tablet by [facility] mg tablet 00:00: mouth 3 (three) Medical times Branch daily as needed for Muscle Spasms. diazePAM 2022-0 Yes [id number] 5mg Take 1 [facility]) 5 1-26 tablet by [facility] tablet 00:00: mouth 3 (three) Medical times Branch daily as needed for Muscle Spasms. diazePAM 2022-0 Yes [id number] 5mg Take 1 [facility] ([facility]) 5 1-26 tablet by [facility] tablet 00:00: mouth 3 (three) Medical times Branch daily as needed for Muscle Spasms. diazePAM 2022-0 Yes [id number] 5mg Take 1 [facility] ([facility]) 5 1-26 tablet by [facility] mg tablet 00:00: mouth 3 (three) Medical times Branch daily as needed for Muscle Spasms. diazePAM 2022-0 Yes [id number] 5mg Take 1 [facility]) 5 1-26 tablet by [facility] tablet 00:00: mouth 3 (three) Medical times Branch daily as needed for Muscle Spasms. diazePAM 2022-0 Yes [id number] 5mg Take 1 [facility]) 5 1-26 tablet by [facility] tablet 00:00: mouth 3 (three) Medical times Branch daily as needed for Muscle Spasms. predniSONE 0 2022- No [id number] 40mg Take 2 [facility] -03 09-03 tablets by [facility] tablet 00:00: 00:00 mouth in [place] 00 :00 the Medical morning Branch for 5 days. predniSONE 2022-0 2022- No [id number] 40mg Take 2 [facility] 20 mg 1-26 02- tablets by [facility] tablet 00:00: 05:59 mouth in [place] 00 :00 the Medical morning Branch for 5 days. predniSONE 2022-0 2022- No [id number] 40mg Take 2 [facility] 20 mg 1-26 02- tablets by [facility] tablet 00:00: 05:59 mouth in [place] 00 :00 the Medical morning Branch for 5 days. predniSONE 2022-0 2022- No [id number] 40mg Take 2 [facility] 20 mg 1-26 02- tablets by [facility] tablet 00:00: 05:59 mouth in [place] 00 :00 the Medical morning Branch for 5 days. predniSONE 2022-0 202- No [id number] 40mg Take 2 [facility] 20 mg 08-03- tablets by [facility] tablet 00:00: 05:59 mouth in [place] 00 :00 the Medical morning Branch for 5 days. predniSONE 2022-0 2022- No [id number] 40mg Take 2 [facility] 20 mg 08-03- tablets by [facility] tablet 00:00: 05:59 mouth in [place] 00 :00 the Medical morning Branch for 5 days. predniSONE 2022-0 202- No [id number] 40mg Take 2 [facility] 20 mg 08-03- tablets by [facility] tablet 00:00: 05:59 mouth in [place] 00 :00 the Medical morning Branch for 5 days. predniSONE 2022-0 2022- No [id number] 40mg Take 2 [facility] 20 mg 08-03 tablets by [facility] of tablet 00:00: 05:59 mouth in [place] 00 :00 the Medical morning Branch for 5 days. methylPREDN 2022- No [id number] 80mg U nivers ISolone 07-27 ity of acetate 20:15: 19:07 [place] (DEPO-MEDRO 00 :00 Medical L) Branch injection 80 mg methylPREDN 2022-0 2022- No [id number] 80mg 80 mg, [facility] ISolone 07-27 [facility] ity o f acetate 20:15: 19:07 [place], [place] (DEPO-MEDRO 00 :00 ONCE, 1 Medic al L) dose, On Branch injection [place] 80 mg 07/27/22 at 1415, Routine methylPREDN 2022- No [id number] 80mg U nivers ISolone 07-27 ity of acetate 20:15: 19:07 [place] (DEPO-MEDRO 00 :00 Medical L) Branch injection 80 mg methylPREDN 2022-0 2022- No [id number] 80mg 80 mg, [facility] ISolone 07-27 [facility] it[facility] o f acetate 20:15: 19:07 [place], [place] (DEPO-MEDRO 00 :00 ONCE, 1 Medic al L) dose, On Branch injection [place] 80 mg 07/27/22 at 1415, Routine methylPREDN 2022-3- No [id number] 80mg U nivers ISolone 07-27 ity of acetate 20:15: 19:07 [place] (DEPO-MEDRO 00 :00 Medical L) Branch injection 80 mg methylPREDN 0 3- No [id number] 80mg 80 mg, [facility] ISolone 07-27 [facility] ity o f acetate 20:15: 19:07 [place], [place] (DEPO-MEDRO 00 :00 ONCE, 1 Medic al L) dose, On Branch injection [place] 80 mg 07/27/22 at 1415, Routine methylPREDN 0 2022- No [id number] [facility] ity of acetate 20:15: 19:07 [place] (DEPO-MEDRO 00 :00 Medical L) Branch injection 80 mg methylPREDN 2022-0 2022- No [id number] 80mg 80 mg, [facility] ISolone 07-27 [facility] ity o f acetate 20:15: 19:07 [place], [place] (DEPO-MEDRO 00 :00 ONCE, 1 Medic al L) dose, On Branch injection [place] 80 mg 07/27/22 at 1415, Routine methylPREDN 2022-0 2022- No [id number] [facility] 20:15: 19:07 [place] (DEPO-MEDRO 00 :00 Medical L) Branch injection 80 mg methylPREDN 2022-0 2022- No [id number] 80mg 80 mg, [facility] ISolone 07-27 [facility] ity o f acetate 20:15: 19:07 [place], [place] (DEPO-MEDRO 00 :00 ONCE, 1 Medic al L) dose, On Branch injection [place] 80 mg 07/27/22 at 1415, Routine TIZANIDINE 2022-0 Yes [id number] TAKE 1 U nivers 4 mg tablet 1-10 TABLET BY ity of 00:00: MOUTH [place] 00 EVERY 8 Medical HOURS Branch NEEDED FOR SEVERE MUSCLE SPASMS TIZANIDINE 2022-0 Yes [id number] TAKE 1 U nivers 4 mg tablet 1-10 TABLET BY ity of 00:00: MOUTH [place] 00 EVERY 8 Medical HOURS Branch NEEDED FOR SEVERE MUSCLE SPASMS TIZANIDINE 2023-0 Yes [id number] TAKE 1 U nivers 4 mg tablet 1-10 TABLET BY ity of 00:00: MOUTH [place] EVERY 8 Medical HOURS Branch NEEDED FOR SEVERE MUSCLE SPASMS TIZANIDINE 2023-0 Yes [id number] TAKE 1 U nivers 4 mg tablet 1-10 TABLET BY ity of 00:00: MOUTH EVERY 8 Medical HOURS Branch NEEDED FOR SEVERE MUSCLE SPASMS TIZANIDINE 2023-0 Yes [id number] TAKE 1 U nivers 4 mg tablet 1-10 TABLET BY ity of 00:00: MOUTH EVERY 8 Medical HOURS Branch NEEDED FOR SEVERE MUSCLE SPASMS TIZANIDINE 2023-0 Yes [id number] TAKE 1 U nivers 4 mg tablet 1-10 TABLET BY ity of 00:00: MOUTH EVERY 8 Medical HOURS Branch NEEDED FOR SEVERE MUSCLE SPASMS TIZANIDINE 2023-0 Yes [id number] TAKE 1 U nivers 4 mg tablet 1-10 TABLET BY ity of 00:00: MOUTH EVERY 8 Medical HOURS Branch NEEDED FOR SEVERE MUSCLE SPASMS TIZANIDINE 2023-0 Yes [id number] TAKE 1 U nivers 4 mg tablet 1-10 TABLET BY ity of 00:00: MOUTH EVERY 8 Medical HOURS Branch NEEDED FOR SEVERE MUSCLE SPASMS TIZANIDINE 2023-0 Yes [id number] TAKE 1 U nivers 4 mg tablet 1-10 TABLET BY ity of 00:00: MOUTH 00 EVERY 8 Medical HOURS Branch NEEDED FOR SEVERE MUSCLE SPASMS TIZANIDINE 2023-0 Yes [id number] TAKE 1 U nivers 4 mg tablet 1-10 TABLET BY ity of 00:00: MOUTH [place] EVERY 8 Medical HOURS Branch NEEDED FOR SEVERE MUSCLE SPASMS TIZANIDINE 2023-0 Yes [id number] TAKE 1 U nivers 4 mg tablet 1-10 TABLET BY ity of 00:00: MOUTH 00 EVERY 8 Medical HOURS Branch NEEDED FOR SEVERE MUSCLE SPASMS TIZANIDINE 2023-0 Yes [id number] TAKE 1 U nivers 4 mg tablet 1-10 TABLET BY ity of 00:00: MOUTH [place] 00 EVERY 8 Medical HOURS Branch NEEDED FOR SEVERE MUSCLE SPASMS TIZANIDINE 2023-0 Yes [id number] TAKE 1 U nivers 4 mg tablet 1-10 TABLET BY ity of 00:00: MOUTH EVERY 8 Medical HOURS Branch NEEDED FOR SEVERE MUSCLE SPASMS TIZANIDINE 2023-0 Yes [id number] TAKE 1 U nivers 4 mg tablet 1-10 TABLET BY ity of 00:00: MOUTH EVERY 8 Medical HOURS Branch NEEDED FOR SEVERE MUSCLE SPASMS TIZANIDINE 2023-0 Yes [id number] TAKE 1 U nivers 4 mg tablet 1-10 TABLET BY ity of 00:00: MOUTH EVERY 8 Medical HOURS Branch NEEDED FOR SEVERE MUSCLE SPASMS TIZANIDINE 2023-0 Yes [id number] TAKE 1 U nivers 4 mg tablet 1-10 TABLET BY ity of 00:00: MOUTH EVERY 8 Medical HOURS Branch NEEDED FOR SEVERE MUSCLE SPASMS TIZANIDINE 2023-0 Yes [id number] TAKE 1 U nivers 4 mg tablet 1-10 TABLET BY ity of 00:00: MOUTH EVERY 8 Medical HOURS Branch NEEDED FOR SEVERE MUSCLE SPASMS TIZANIDINE 2023-0 Yes [id number] TAKE 1 U nivers 4 mg tablet 1-10 TABLET BY ity of 00:00: MOUTH EVERY 8 Medical HOURS Branch NEEDED FOR SEVERE MUSCLE SPASMS TIZANIDINE 2023-0 Yes [id number] TAKE 1 U nivers 4 mg tablet 1-10 TABLET BY ity of 00:00: MOUTH EVERY 8 Medical HOURS Branch NEEDED FOR SEVERE MUSCLE SPASMS TIZANIDINE 2023-0 Yes [id number] TAKE 1 U nivers 4 mg tablet 1-10 TABLET BY ity of 00:00: MOUTH EVERY 8 Medical HOURS Branch NEEDED FOR SEVERE MUSCLE SPASMS TIZANIDINE 2023-0 Yes [id number] TAKE 1 U nivers 4 mg tablet 1-10 TABLET BY ity of 00:00: MOUTH EVERY 8 Medical HOURS Branch NEEDED FOR SEVERE MUSCLE SPASMS TIZANIDINE 2023-0 Yes [id number] TAKE 1 U nivers 4 mg tablet 1-10 TABLET BY ity of 00:00: MOUTH EVERY 8 Medical HOURS Branch NEEDED FOR SEVERE MUSCLE SPASMS TIZANIDINE 2023-0 Yes [id number] TAKE 1 U nivers 4 mg tablet 1-10 TABLET BY ity of 00:00: MOUTH EVERY 8 Medical HOURS Branch NEEDED FOR SEVERE MUSCLE SPASMS TIZANIDINE 2023-0 Yes [id number] TAKE 1 U nivers 4 mg tablet 1-10 TABLET BY ity of 00:00: MOUTH EVERY 8 Medical HOURS Branch NEEDED FOR SEVERE MUSCLE SPASMS TIZANIDINE 2023-0 Yes [id number] TAKE 1 U nivers 4 mg tablet 1-10 TABLET BY ity of 00:00: MOUTH EVERY 8 Medical HOURS Branch NEEDED FOR SEVERE MUSCLE SPASMS TIZANIDINE 2023-0 Yes [id number] TAKE 1 U nivers 4 mg tablet 1-10 TABLET BY ity of 00:00: MOUTH EVERY 8 Medical HOURS Branch NEEDED FOR SEVERE MUSCLE SPASMS TIZANIDINE 2023-0 Yes [id number] TAKE 1 U nivers 4 mg tablet 1-10 TABLET BY ity of 00:00: MOUTH EVERY 8 Medical HOURS Branch NEEDED FOR SEVERE MUSCLE SPASMS TIZANIDINE 2023-0 Yes [id number] TAKE 1 U nivers 4 mg tablet 1-10 TABLET BY ity of 00:00: MOUTH EVERY 8 Medical HOURS Branch NEEDED FOR SEVERE MUSCLE SPASMS TIZANIDINE 2023-0 Yes [id number] TAKE 1 U nivers 4 mg tablet 1-10 TABLET BY ity of 00:00: MOUTH EVERY 8 Medical HOURS Branch NEEDED FOR SEVERE MUSCLE SPASMS TIZANIDINE 2023-0 Yes [id number] TAKE 1 U nivers 4 mg tablet 1-10 TABLET BY ity of 00:00: MOUTH EVERY 8 Medical HOURS Branch NEEDED FOR SEVERE MUSCLE SPASMS TIZANIDINE 2023-0 Yes [id number] TAKE 1 U nivers 4 mg tablet 1-10 TABLET BY ity of 00:00: MOUTH EVERY 8 Medical HOURS Branch NEEDED FOR SEVERE MUSCLE SPASMS TIZANIDINE 2023-0 Yes [id number] TAKE 1 U nivers 4 mg tablet 1-10 TABLET BY ity of 00:00: MOUTH EVERY 8 Medical HOURS Branch NEEDED FOR SEVERE MUSCLE SPASMS TIZANIDINE 2023-0 Yes [id number] TAKE 1 U nivers 4 mg tablet 1-10 TABLET BY ity of 00:00: MOUTH EVERY 8 Medical HOURS Branch NEEDED FOR SEVERE MUSCLE SPASMS TIZANIDINE 2023-0 Yes [id number] TAKE 1 U nivers 4 mg tablet 1-10 TABLET BY ity of 00:00: MOUTH EVERY 8 Medical HOURS Branch NEEDED FOR SEVERE MUSCLE SPASMS TIZANIDINE 2023-0 Yes [id number] TAKE 1 U nivers 4 mg tablet 1-10 TABLET BY ity of 00:00: MOUTH EVERY 8 Medical HOURS Branch NEEDED FOR SEVERE MUSCLE SPASMS TIZANIDINE 2023-0 Yes [id number] TAKE 1 U nivers 4 mg tablet 1-10 TABLET BY ity of 00:00: MOUTH EVERY 8 Medical HOURS Branch NEEDED FOR SEVERE MUSCLE SPASMS TIZANIDINE 2023-0 Yes [id number] TAKE 1 U nivers 4 mg tablet 1-10 TABLET BY ity of 00:00: MOUTH EVERY 8 Medical HOURS Branch NEEDED FOR SEVERE MUSCLE SPASMS TIZANIDINE 2023-0 Yes [id number] TAKE 1 U nivers 4 mg tablet 1-10 TABLET BY ity of 00:00: MOUTH EVERY 8 Medical HOURS Branch NEEDED FOR SEVERE MUSCLE SPASMS TIZANIDINE 2023-0 Yes [id number] TAKE 1 U nivers 4 mg tablet 1-10 TABLET BY ity of 00:00: MOUTH EVERY 8 Medical HOURS Branch NEEDED FOR SEVERE MUSCLE SPASMS TIZANIDINE 2023-0 Yes [id number] TAKE 1 U nivers 4 mg tablet 1-10 TABLET BY ity of 00:00: MOUTH EVERY 8 Medical HOURS Branch NEEDED FOR SEVERE MUSCLE SPASMS TIZANIDINE 2023-0 Yes [id number] TAKE 1 U nivers 4 mg tablet 1-10 TABLET BY ity of 00:00: MOUTH EVERY 8 Medical HOURS Branch NEEDED FOR SEVERE MUSCLE SPASMS TIZANIDINE 2023-0 Yes [id number] TAKE 1 U nivers 4 mg tablet 1-10 TABLET BY ity of 00:00: MOUTH EVERY 8 Medical HOURS Branch NEEDED FOR SEVERE MUSCLE SPASMS TIZANIDINE 2023-0 Yes [id number] TAKE 1 U nivers 4 mg tablet 1-10 TABLET BY ity of 00:00: MOUTH EVERY 8 Medical HOURS Branch NEEDED FOR SEVERE MUSCLE SPASMS TIZANIDINE 2023-0 Yes [id number] TAKE 1 U nivers 4 mg tablet 1-10 TABLET BY ity of 00:00: MOUTH EVERY 8 Medical HOURS Branch NEEDED FOR SEVERE MUSCLE SPASMS TIZANIDINE 2023-0 Yes [id number] TAKE 1 U nivers 4 mg tablet 1-10 TABLET BY ity of 00:00: MOUTH EVERY 8 Medical HOURS Branch NEEDED FOR SEVERE MUSCLE SPASMS TIZANIDINE 2023-0 Yes [id number] TAKE 1 U nivers 4 mg tablet 1-10 TABLET BY ity of 00:00: MOUTH 00 EVERY 8 Medical HOURS Branch NEEDED FOR SEVERE MUSCLE SPASMS TIZANIDINE 2023-0 Yes [id number] TAKE 1 U nivers 4 mg tablet 1-10 TABLET BY ity of 00:00: MOUTH EVERY 8 Medical HOURS Branch NEEDED FOR SEVERE MUSCLE SPASMS TIZANIDINE 2023-0 Yes [id number] TAKE 1 U nivers 4 mg tablet 1-10 TABLET BY ity of 00:00: MOUTH EVERY 8 Medical HOURS Branch NEEDED FOR SEVERE MUSCLE SPASMS TIZANIDINE 2023-0 Yes [id number] TAKE 1 U nivers 4 mg tablet 1-10 TABLET BY ity of 00:00: MOUTH EVERY 8 Medical HOURS Branch NEEDED FOR SEVERE MUSCLE SPASMS TIZANIDINE 2023-0 Yes [id number] TAKE 1 U nivers 4 mg tablet 1-10 TABLET BY ity of 00:00: MOUTH EVERY 8 Medical HOURS Branch NEEDED FOR SEVERE MUSCLE SPASMS TIZANIDINE 2023-0 Yes [id number] TAKE 1 U nivers 4 mg tablet 1-10 TABLET BY ity of 00:00: MOUTH EVERY 8 Medical HOURS Branch NEEDED FOR SEVERE MUSCLE SPASMS TIZANIDINE 2023-0 Yes [id number] TAKE 1 U nivers 4 mg tablet 1-10 TABLET BY ity of 00:00: MOUTH EVERY 8 Medical HOURS Branch NEEDED FOR SEVERE MUSCLE SPASMS TIZANIDINE 2023-0 Yes [id number] TAKE 1 U nivers 4 mg tablet 1-10 TABLET BY ity of 00:00: MOUTH EVERY 8 Medical HOURS Branch NEEDED FOR SEVERE MUSCLE SPASMS TIZANIDINE 2023-0 Yes [id number] TAKE 1 U nivers 4 mg tablet 1-10 TABLET BY ity of 00:00: MOUTH 00 EVERY 8 Medical HOURS Branch NEEDED FOR SEVERE MUSCLE SPASMS TIZANIDINE 2023-0 Yes [id number] TAKE 1 U nivers 4 mg tablet 1-10 TABLET BY ity of 00:00: MOUTH EVERY 8 Medical HOURS Branch NEEDED FOR SEVERE MUSCLE SPASMS TIZANIDINE 2023-0 Yes [id number] TAKE 1 U nivers 4 mg tablet 1-10 TABLET BY ity of 00:00: MOUTH EVERY 8 Medical HOURS Branch NEEDED FOR SEVERE MUSCLE SPASMS TIZANIDINE 2023-0 Yes [id number] TAKE 1 U nivers 4 mg tablet 1-10 TABLET BY ity of 00:00: MOUTH EVERY 8 Medical HOURS Branch NEEDED FOR SEVERE MUSCLE SPASMS TIZANIDINE 2023-0 Yes [id number] TAKE 1 U nivers 4 mg tablet 1-10 TABLET BY ity of 00:00: MOUTH EVERY 8 Medical HOURS Branch NEEDED FOR SEVERE MUSCLE SPASMS TIZANIDINE 2023-0 Yes [id number] TAKE 1 U nivers 4 mg tablet 1-10 TABLET BY ity of 00:00: MOUTH EVERY 8 Medical HOURS Branch NEEDED FOR SEVERE MUSCLE SPASMS TIZANIDINE 2023-0 Yes [id number] TAKE 1 U nivers 4 mg tablet 1-10 TABLET BY ity of 00:00: MOUTH EVERY 8 Medical HOURS Branch NEEDED FOR SEVERE MUSCLE SPASMS TIZANIDINE 2023-0 Yes [id number] TAKE 1 U nivers 4 mg tablet 1-10 TABLET BY ity of 00:00: MOUTH EVERY 8 Medical HOURS Branch NEEDED FOR SEVERE MUSCLE SPASMS TIZANIDINE 2023-0 Yes [id number] TAKE 1 U nivers 4 mg tablet 1-10 TABLET BY ity of 00:00: MOUTH EVERY 8 Medical HOURS Branch NEEDED FOR SEVERE MUSCLE SPASMS TIZANIDINE 2023-0 Yes [id number] TAKE 1 U nivers 4 mg tablet 1-10 TABLET BY ity of 00:00: MOUTH EVERY 8 Medical HOURS Branch NEEDED FOR SEVERE MUSCLE SPASMS TIZANIDINE 2023-0 Yes [id number] TAKE 1 U nivers 4 mg tablet 1-10 TABLET BY ity of 00:00: MOUTH EVERY 8 Medical HOURS Branch NEEDED FOR SEVERE MUSCLE SPASMS TIZANIDINE 2023-0 Yes [id number] TAKE 1 U nivers 4 mg tablet 1-10 TABLET BY ity of 00:00: MOUTH EVERY 8 Medical HOURS Branch NEEDED FOR SEVERE MUSCLE SPASMS TIZANIDINE 2023-0 Yes [id number] TAKE 1 U nivers 4 mg tablet 1-10 TABLET BY ity of 00:00: MOUTH EVERY 8 Medical HOURS Branch NEEDED FOR SEVERE MUSCLE SPASMS TIZANIDINE 2023-0 Yes [id number] TAKE 1 U nivers 4 mg tablet 1-10 TABLET BY ity of 00:00: MOUTH EVERY 8 Medical HOURS Branch NEEDED FOR SEVERE MUSCLE SPASMS TIZANIDINE 2023-0 Yes [id number] TAKE 1 U nivers 4 mg tablet 1-10 TABLET BY ity of 00:00: MOUTH EVERY 8 Medical HOURS Branch NEEDED FOR SEVERE MUSCLE SPASMS TIZANIDINE 2023-0 Yes [id number] TAKE 1 U nivers 4 mg tablet 1-10 TABLET BY ity of 00:00: MOUTH EVERY 8 Medical HOURS Branch NEEDED FOR SEVERE MUSCLE SPASMS TIZANIDINE 2023-0 Yes [id number] TAKE 1 U nivers 4 mg tablet 1-10 TABLET BY ity of 00:00: MOUTH EVERY 8 Medical HOURS Branch NEEDED FOR SEVERE MUSCLE SPASMS TIZANIDINE 2023-0 Yes [id number] TAKE 1 U nivers 4 mg tablet 1-10 TABLET BY ity of 00:00: MOUTH EVERY 8 Medical HOURS Branch NEEDED FOR SEVERE MUSCLE SPASMS TIZANIDINE 2023-0 Yes [id number] TAKE 1 U nivers 4 mg tablet 1-10 TABLET BY ity of 00:00: MOUTH EVERY 8 Medical HOURS Branch NEEDED FOR SEVERE MUSCLE SPASMS TIZANIDINE 2023-0 Yes [id number] TAKE 1 U nivers 4 mg tablet 1-10 TABLET BY ity of 00:00: MOUTH EVERY 8 Medical HOURS Branch NEEDED FOR SEVERE MUSCLE SPASMS TIZANIDINE 2023-0 Yes [id number] TAKE 1 U nivers 4 mg tablet 1-10 TABLET BY ity of 00:00: MOUTH EVERY 8 Medical HOURS Branch NEEDED FOR SEVERE MUSCLE SPASMS TIZANIDINE 2023-0 Yes [id number] TAKE 1 U nivers 4 mg tablet 1-10 TABLET BY ity of 00:00: MOUTH EVERY 8 Medical HOURS Branch NEEDED FOR SEVERE MUSCLE SPASMS TIZANIDINE 2023-0 Yes [id number] TAKE 1 U nivers 4 mg tablet 1-10 TABLET BY ity of 00:00: MOUTH EVERY 8 Medical HOURS Branch NEEDED FOR SEVERE MUSCLE SPASMS TIZANIDINE 2023-0 Yes [id number] TAKE 1 U nivers 4 mg tablet 1-10 TABLET BY ity of 00:00: MOUTH [place] 00 EVERY 8 Medical HOURS Branch NEEDED FOR SEVERE MUSCLE SPASMS TIZANIDINE 2023-0 Yes [id number] TAKE 1 U nivers 4 mg tablet 1-10 TABLET BY ity of 00:00: MOUTH [place] 00 EVERY 8 Medical HOURS Branch NEEDED FOR SEVERE MUSCLE SPASMS TIZANIDINE 2023-0 Yes [id number] TAKE 1 U nivers 4 mg tablet 1-10 TABLET BY ity of 00:00: MOUTH EVERY 8 Medical HOURS Branch NEEDED FOR SEVERE MUSCLE SPASMS TIZANIDINE 2023-0 Yes [id number] TAKE 1 U nivers 4 mg tablet 1-10 TABLET BY ity of 00:00: MOUTH EVERY 8 Medical HOURS Branch NEEDED FOR SEVERE MUSCLE SPASMS TIZANIDINE 2023-0 Yes [id number] TAKE 1 U nivers 4 mg tablet 1-10 TABLET BY ity of 00:00: MOUTH EVERY 8 Medical HOURS Branch NEEDED FOR SEVERE MUSCLE SPASMS TIZANIDINE 2023-0 Yes [id number] TAKE 1 U nivers 4 mg tablet 1-10 TABLET BY ity of 00:00: MOUTH EVERY 8 Medical HOURS Branch NEEDED FOR SEVERE MUSCLE SPASMS TIZANIDINE 2023-0 Yes [id number] TAKE 1 U nivers 4 mg tablet 1-10 TABLET BY ity of 00:00: MOUTH EVERY 8 Medical HOURS Branch NEEDED FOR SEVERE MUSCLE SPASMS TIZANIDINE 2023-0 Yes [id number] TAKE 1 U nivers 4 mg tablet 1-10 TABLET BY ity of 00:00: MOUTH EVERY 8 Medical HOURS Branch NEEDED FOR SEVERE MUSCLE SPASMS TIZANIDINE 2023-0 Yes [id number] TAKE 1 U nivers 4 mg tablet 1-10 TABLET BY ity of 00:00: MOUTH EVERY 8 Medical HOURS Branch NEEDED FOR SEVERE MUSCLE SPASMS TIZANIDINE 2023-0 Yes [id number] TAKE 1 U nivers 4 mg tablet 1-10 TABLET BY ity of 00:00: MOUTH 00 EVERY 8 Medical HOURS Branch NEEDED FOR SEVERE MUSCLE SPASMS TIZANIDINE 2023-0 Yes [id number] TAKE 1 U nivers 4 mg tablet 1-10 TABLET BY ity of 00:00: MOUTH EVERY 8 Medical HOURS Branch NEEDED FOR SEVERE MUSCLE SPASMS TIZANIDINE 2023-0 Yes [id number] TAKE 1 U nivers 4 mg tablet 1-10 TABLET BY ity of 00:00: MOUTH EVERY 8 Medical HOURS Branch NEEDED FOR SEVERE MUSCLE SPASMS TIZANIDINE 2023-0 Yes [id number] TAKE 1 U nivers 4 mg tablet 1-10 TABLET BY ity of 00:00: MOUTH EVERY 8 Medical HOURS Branch NEEDED FOR SEVERE MUSCLE SPASMS TIZANIDINE 2023-0 Yes [id number] TAKE 1 U nivers 4 mg tablet 1-10 TABLET BY ity of 00:00: MOUTH EVERY 8 Medical HOURS Branch NEEDED FOR SEVERE MUSCLE SPASMS TIZANIDINE 2023-0 Yes [id number] TAKE 1 U nivers 4 mg tablet 1-10 TABLET BY ity of 00:00: MOUTH EVERY 8 Medical HOURS Branch NEEDED FOR SEVERE MUSCLE SPASMS TIZANIDINE 2023-0 Yes [id number] TAKE 1 U nivers 4 mg tablet 1-10 TABLET BY ity of 00:00: MOUTH EVERY 8 Medical HOURS Branch NEEDED FOR SEVERE MUSCLE SPASMS TIZANIDINE 2023-0 Yes [id number] TAKE 1 U nivers 4 mg tablet 1-10 TABLET BY ity of 00:00: MOUTH EVERY 8 Medical HOURS Branch NEEDED FOR SEVERE MUSCLE SPASMS TIZANIDINE 2023-0 Yes [id number] TAKE 1 U nivers 4 mg tablet 1-10 TABLET BY ity of 00:00: MOUTH EVERY 8 [facility] HOURS Branch NEEDED FOR SEVERE MUSCLE SPASMS TIZANIDINE 2023-0 Yes [id number] TAKE 1 U nivers 4 mg tablet 1-10 TABLET BY ity of 00:00: MOUTH EVERY 8 [facility] HOURS Branch NEEDED FOR SEVERE MUSCLE SPASMS TIZANIDINE 2023-0 Yes [id number] TAKE 1 U nivers 4 mg tablet 1-10 TABLET BY ity of 00:00: MOUTH EVERY 8 [facility] HOURS Branch NEEDED FOR SEVERE MUSCLE SPASMS TIZANIDINE 2023-0 Yes [id number] TAKE 1 U nivers 4 mg tablet 1-10 TABLET BY ity of 00:00: MOUTH EVERY 8 [facility] HOURS Branch NEEDED FOR SEVERE MUSCLE SPASMS TIZANIDINE 2023-0 Yes [id number] TAKE 1 U nivers 4 mg tablet 1-10 TABLET BY ity of 00:00: MOUTH EVERY 8 [facility] HOURS Branch NEEDED FOR SEVERE MUSCLE SPASMS TIZANIDINE 2023-0 Yes [id number] TAKE 1 U nivers 4 mg tablet 1-10 TABLET BY ity of 00:00: MOUTH EVERY 8 [facility] HOURS Branch NEEDED FOR SEVERE MUSCLE SPASMS TIZANIDINE 2023-0 Yes [id number] TAKE 1 U nivers 4 mg tablet 1-10 TABLET BY ity of 00:00: MOUTH EVERY 8 Medical HOURS Branch NEEDED FOR SEVERE MUSCLE SPASMS TIZANIDINE 2023-0 Yes [id number] TAKE 1 U nivers 4 mg tablet 1-10 TABLET BY ity of 00:00: MOUTH EVERY 8 Medical HOURS Branch NEEDED FOR SEVERE MUSCLE SPASMS TIZANIDINE 2023-0 Yes [id number] TAKE 1 U nivers 4 mg tablet 1-10 TABLET BY ity of 00:00: MOUTH EVERY 8 [facility] HOURS Branch NEEDED FOR SEVERE MUSCLE SPASMS TIZANIDINE 2023-0 Yes [id number] TAKE 1 U nivers 4 mg tablet 1-10 TABLET BY ity of 00:00: EVERY 8 Medical HOURS Branch NEEDED FOR SEVERE MUSCLE SPASMS TIZANIDINE 2023-0 Yes [id number] TAKE 1 U nivers 4 mg tablet 1-10 TABLET BY ity of 00:00: MOUTH EVERY 8 [facility] HOURS Branch NEEDED FOR SEVERE MUSCLE SPASMS TIZANIDINE 2023-0 Yes [id number] TAKE 1 U nivers 4 mg tablet 1-10 TABLET BY ity of 00:00: MOUTH EVERY 8 [facility] HOURS Branch NEEDED FOR SEVERE MUSCLE SPASMS TIZANIDINE 2023-0 Yes [id number] TAKE 1 U nivers 4 mg tablet 1-10 TABLET BY ity of 00:00: MOUTH EVERY 8 [facility] HOURS Branch NEEDED FOR SEVERE MUSCLE SPASMS TIZANIDINE 2023-0 Yes [id number] TAKE 1 U nivers 4 mg tablet 1-10 TABLET BY ity of 00:00: MOUTH EVERY 8 Medical HOURS Branch NEEDED FOR SEVERE MUSCLE SPASMS TIZANIDINE 2023-0 Yes [id number] TAKE 1 U nivers 4 mg tablet 1-10 TABLET BY ity of 00:00: MOUTH EVERY 8 [facility] HOURS Branch NEEDED FOR SEVERE MUSCLE SPASMS TIZANIDINE 2023-0 Yes [id number] TAKE 1 U nivers 4 mg tablet 1-10 TABLET BY ity of 00:00: MOUTH EVERY 8 [facility] HOURS Branch NEEDED FOR SEVERE MUSCLE SPASMS TIZANIDINE 2023-0 Yes [id number] TAKE 1 U nivers 4 mg tablet 1-10 TABLET BY ity of 00:00: MOUTH EVERY 8 [facility] HOURS Branch NEEDED FOR SEVERE MUSCLE SPASMS TIZANIDINE 2023-0 Yes [id number] TAKE 1 U nivers 4 mg tablet 1-10 TABLET BY ity of 00:00: MOUTH EVERY 8 [facility] HOURS Branch NEEDED FOR SEVERE MUSCLE SPASMS TIZANIDINE 2023-0 Yes [id number] TAKE 1 U nivers 4 mg tablet 1-10 TABLET BY ity of 00:00: MOUTH EVERY 8 [facility] HOURS Branch NEEDED FOR SEVERE MUSCLE SPASMS TIZANIDINE 2023-0 Yes [id number] TAKE 1 U nivers 4 mg tablet 1-10 TABLET BY ity of 00:00: MOUTH EVERY 8 [facility] HOURS Branch NEEDED FOR SEVERE MUSCLE SPASMS TIZANIDINE 2023-0 Yes [id number] TAKE 1 U nivers 4 mg tablet 1-10 TABLET BY ity of 00:00: MOUTH EVERY 8 [facility] HOURS Branch NEEDED FOR SEVERE MUSCLE SPASMS TIZANIDINE 2023-0 Yes [id number] TAKE 1 U nivers 4 mg tablet 1-10 TABLET BY ity of 00:00: MOUTH EVERY 8 [facility] HOU[facility] Branch NEEDED FOR SEVERE MUSCLE SPASMS TIZANIDINE 2023-0 Yes [id number] TAKE 1 U nivers 4 mg tablet 1-10 TABLET BY ity of 00:00: MOUTH EVERY 8 [facility] HOURS Branch NEEDED FOR SEVERE MUSCLE SPASMS TIZANIDINE 2023-0 Yes [id number] TAKE 1 U nivers 4 mg tablet 1-10 TABLET BY ity of 00:00: MOUTH EVERY 8 [facility] HOURS Branch NEEDED FOR SEVERE MUSCLE SPASMS TIZANIDINE 2023-0 Yes [id number] TAKE 1 U nivers 4 mg tablet 1-10 TABLET BY ity of 00:00: MOUTH EVERY 8 [facility] HOURS Branch NEEDED FOR SEVERE MUSCLE SPASMS TIZANIDINE 2023-0 Yes [id number] TAKE 1 U nivers 4 mg tablet 1-10 TABLET BY ity of 00:00: MOUTH EVERY 8 [facility] HOURS Branch NEEDED FOR SEVERE MUSCLE SPASMS TIZANIDINE 2023-0 Yes [id number] TAKE 1 U nivers 4 mg tablet 1-10 TABLET BY ity of 00:00: MOUTH [place] EVERY 8 Medical HOURS Branch NEEDED FOR SEVERE MUSCLE SPASMS TIZANIDINE 2023-0 Yes [id number] TAKE 1 U nivers 4 mg tablet 1-10 TABLET BY ity of 00:00: MOUTH EVERY 8 [facility] HOURS Branch NEEDED FOR SEVERE MUSCLE SPASMS TIZANIDINE 2023-0 Yes [id number] TAKE 1 U nivers 4 mg tablet 1-10 TABLET BY ity of 00:00: MOUTH EVERY 8 [facility] HOURS Branch NEEDED FOR SEVERE MUSCLE SPASMS TIZANIDINE 2023-0 Yes [id number] TAKE 1 U nivers 4 mg tablet 1-10 TABLET BY ity of 00:00: MOUTH EVERY 8 [facility] HOURS Branch NEEDED FOR SEVERE MUSCLE SPASMS TIZANIDINE 2023-0 Yes [id number] TAKE 1 U nivers 4 mg tablet 1-10 TABLET BY ity of 00:00: MOUTH EVERY 8 [facility] HOURS Branch NEEDED FOR SEVERE MUSCLE SPASMS TIZANIDINE 2023-0 Yes [id number] TAKE 1 U nivers 4 mg tablet 1-10 TABLET BY ity of 00:00: MOUTH EVERY 8 [facility] HOURS Branch NEEDED FOR SEVERE MUSCLE SPASMS TIZANIDINE 2023-0 Yes [id number] TAKE 1 U nivers 4 mg tablet 1-10 TABLET BY ity of 00:00: MOUTH 00 EVERY 8 [facility] HOURS Branch NEEDED FOR SEVERE MUSCLE SPASMS TIZANIDINE 2023-0 Yes [id number] TAKE 1 U nivers 4 mg tablet 1-10 TABLET BY ity of 00:00: MOUTH EVERY 8 [facility] HOURS Branch NEEDED FOR SEVERE MUSCLE SPASMS TIZANIDINE 2023-0 Yes [id number] TAKE 1 [facility] 4 mg tablet 1-10 TABLET BY [facility] 00:00: MOUTH 00 EVERY 8 [facility] HOU[facility] NEEDED FOR SEVERE MUSCLE SPASMS TIZANIDINE 2023-0 Yes [id number] TAKE 1 [facility] 4 mg tablet 1-10 TABLET BY [facility] 00:00: MOUTH 00 EVERY 8 [facility] HOU[facility] NEEDED FOR SEVERE MUSCLE SPASMS TIZANIDINE 2023-0 Yes [id number] TAKE 1 [facility] 4 mg tablet 1-10 TABLET BY [facility] 00:00: MOUTH EVERY 8 [facility] HOU[facility] NEEDED FOR SEVERE MUSCLE SPASMS TIZANIDINE 2023-0 Yes [id number] TAKE 1 [facility] 4 mg tablet 1-10 TABLET BY [facility] 00:00: MOUTH EVERY 8 [facility] HOU[facility] NEEDED FOR SEVERE MUSCLE SPASMS TIZANIDINE 2023-0 Yes [id number] TAKE 1 [facility] 4 mg tablet 1-10 TABLET BY [facility] 00:00: MOUTH EVERY 8 [facility] HOU[facility] NEEDED FOR SEVERE MUSCLE SPASMS TIZANIDINE 2023-0 Yes [id number] TAKE 1 [facility] 4 mg tablet 1-10 TABLET BY [facility] 00:00: MOUTH EVERY 8 [facility] HOU[facility] NEEDED FOR SEVERE MUSCLE SPASMS TIZANIDINE 2023-0 Yes [id number] TAKE 1 [facility] 4 mg tablet 1-10 TABLET BY [facility] 00:00: MOUTH EVERY 8 [facility] HOU[facility] NEEDED FOR SEVERE MUSCLE SPASMS TIZANIDINE 2023-0 Yes [id number] TAKE 1 [facility] 4 mg tablet 1-10 TABLET BY [facility] 00:00: MOUTH EVERY 8 [facility] HOU[facility] NEEDED FOR SEVERE MUSCLE SPASMS TIZANIDINE 2023-0 Yes [id number] TAKE 1 [facility] 4 mg tablet 1-10 TABLET BY [facility] 00:00: MOUTH EVERY 8 [facility] HOURS Branch NEEDED FOR SEVERE MUSCLE SPASMS TIZANIDINE 2023-0 Yes [id number] TAKE 1 [facility] 4 mg tablet 1-10 TABLET BY [facility] of 00:00: MOUTH EVERY 8 Medical HOURS Branch NEEDED FOR SEVERE MUSCLE SPASMS TIZANIDINE 2023-0 Yes [id number] TAKE 1 [facility] 4 mg tablet 1-10 TABLET BY ity of 00:00: MOUTH EVERY 8 Medical HOURS Branch NEEDED FOR SEVERE MUSCLE SPASMS TIZANIDINE 2023-0 Yes [id number] TAKE 1 [facility] 4 mg tablet 1-10 TABLET BY ity of 00:00: MOUTH EVERY 8 Medical HOURS Branch NEEDED FOR SEVERE MUSCLE SPASMS TIZANIDINE 2023-0 Yes [id number] TAKE 1 [facility] 4 mg tablet 1-10 TABLET BY ity of 00:00: MOUTH EVERY 8 Medical HOURS Branch NEEDED FOR SEVERE MUSCLE SPASMS TIZANIDINE 2023-0 Yes [id number] TAKE 1 [facility] 4 mg tablet 1-10 TABLET BY ity of 00:00: MOUTH EVERY 8 Medical HOURS Branch NEEDED FOR SEVERE MUSCLE SPASMS TIZANIDINE 2023-0 Yes [id number] TAKE 1 [facility] 4 mg tablet 1-10 TABLET BY ity of 00:00: MOUTH EVERY 8 Medical HOURS Branch NEEDED FOR SEVERE MUSCLE SPASMS TIZANIDINE 2023-0 Yes [id number] TAKE 1 [facility] 4 mg tablet 1-10 TABLET BY ity of 00:00: MOUTH EVERY 8 Medical HOURS Branch NEEDED FOR SEVERE MUSCLE SPASMS TIZANIDINE 2023-0 Yes [id number] TAKE 1 [facility] 4 mg tablet 1-10 TABLET BY ity of 00:00: MOUTH EVERY 8 Medical HOURS Branch NEEDED FOR SEVERE MUSCLE SPASMS TIZANIDINE 2023-0 Yes [id number] TAKE 1 [facility] 4 mg tablet 1-10 TABLET BY [facility]y of 00:00: MOUTH EVERY 8 Medical HOURS Branch NEEDED FOR SEVERE MUSCLE SPASMS TIZANIDINE 2023-0 Yes [id number] TAKE 1 [facility] 4 mg tablet 1-10 TABLET BY [facility]y of 00:00: MOUTH EVERY 8 Medical HOURS Branch NEEDED FOR SEVERE MUSCLE SPASMS TIZANIDINE 2023-0 Yes [id number] TAKE 1 [facility] 4 mg tablet 1-10 TABLET BY [facility]y of 00:00: MOUTH EVERY 8 Medical HOURS Branch NEEDED FOR SEVERE MUSCLE SPASMS TIZANIDINE 2023-0 Yes [id number] TAKE 1 [facility] 4 mg tablet 1-10 TABLET BY ity of 00:00: MOUTH EVERY 8 Medical HOURS Branch NEEDED FOR SEVERE MUSCLE SPASMS TIZANIDINE 2023-0 Yes [id number] TAKE 1 [facility] 4 mg tablet 1-10 TABLET BY [facility]y of 00:00: MOUTH EVERY 8 Medical HOURS Branch NEEDED FOR SEVERE MUSCLE SPASMS TIZANIDINE 2023-0 Yes [id number] TAKE 1 [facility] 4 mg tablet 1-10 TABLET BY [facility] of 00:00: MOUTH EVERY 8 Medical HOURS Branch NEEDED FOR SEVERE MUSCLE SPASMS TIZANIDINE 2023-0 Yes [id number] TAKE 1 [facility] 4 mg tablet 1-10 TABLET BY [facility] of 00:00: MOUTH [place] 00 EVERY 8 Medical HOURS Branch NEEDED FOR SEVERE MUSCLE SPASMS TIZANIDINE 2023-0 Yes [id number] TAKE 1 [facility] 4 mg tablet 1-10 TABLET BY ity of 00:00: MOUTH EVERY 8 Medical HOURS Branch NEEDED FOR SEVERE MUSCLE SPASMS TIZANIDINE 2023-0 Yes [id number] TAKE 1 [facility] 4 mg tablet 1-10 TABLET BY [facility] of 00:00: MOUTH EVERY 8 Medical HOURS Branch NEEDED FOR SEVERE MUSCLE SPASMS TIZANIDINE 2023-0 Yes [id number] TAKE 1 [facility] 4 mg tablet 1-10 TABLET BY [facility] of 00:00: MOUTH EVERY 8 Medical HOURS Branch NEEDED FOR SEVERE MUSCLE SPASMS TIZANIDINE 2023-0 Yes [id number] TAKE 1 [facility] 4 mg tablet 1-10 TABLET BY [facility] of 00:00: MOUTH EVERY 8 Medical HOURS Branch NEEDED FOR SEVERE MUSCLE SPASMS TIZANIDINE 2023-0 Yes [id number] TAKE 1 [facility] 4 mg tablet 1-10 TABLET BY [facility] of 00:00: MOUTH EVERY 8 Medical HOURS Branch NEEDED FOR SEVERE MUSCLE SPASMS TIZANIDINE 2023-0 Yes [id number] TAKE 1 [facility] 4 mg tablet 1-10 TABLET BY [facility] of 00:00: MOUTH EVERY 8 Medical HOURS Branch NEEDED FOR SEVERE MUSCLE SPASMS TIZANIDINE 2023-0 Yes [id number] TAKE 1 [facility] 4 mg tablet 1-10 TABLET BY [facility] of 00:00: MOUTH EVERY 8 Medical HOURS Branch NEEDED FOR SEVERE MUSCLE SPASMS TIZANIDINE 2023-0 Yes [id number] TAKE 1 [facility] 4 mg tablet 1-10 TABLET BY [facility] of 00:00: MOUTH EVERY 8 Medical HOURS Branch NEEDED FOR SEVERE MUSCLE SPASMS TIZANIDINE 2023-0 Yes [id number] TAKE 1 [facility] 4 mg tablet 1-10 TABLET BY [facility] of 00:00: MOUTH EVERY 8 Medical HOURS Branch NEEDED FOR SEVERE MUSCLE SPASMS TIZANIDINE 2023-0 Yes [id number] TAKE 1 [facility] 4 mg tablet 1-10 TABLET BY it[facility] of 00:00: MOUTH EVERY 8 Medical HOURS Branch NEEDED FOR SEVERE MUSCLE SPASMS TIZANIDINE 2023-0 Yes [id number] TAKE 1 [facility] 4 mg tablet 1-10 TABLET BY [facility] of 00:00: MOUTH 00 EVERY 8 Medical HOURS Branch NEEDED FOR SEVERE MUSCLE SPASMS TIZANIDINE 2023-0 Yes [id number] TAKE 1 [facility] 4 mg tablet 1-10 TABLET BY it[facility] of 00:00: MOUTH EVERY 8 Medical HOURS Branch NEEDED FOR SEVERE MUSCLE SPASMS TIZANIDINE 2023-0 Yes [id number] TAKE 1 [facility] 4 mg tablet 1-10 TABLET BY [facility] of 00:00: MOUTH EVERY 8 Medical HOURS Branch NEEDED FOR SEVERE MUSCLE SPASMS TIZANIDINE 2023-0 Yes [id number] TAKE 1 [facility] 4 mg tablet 1-10 TABLET BY it[facility] of 00:00: MOUTH EVERY 8 Medical HOURS Branch NEEDED FOR SEVERE MUSCLE SPASMS TIZANIDINE 2023-0 Yes [id number] TAKE 1 [facility] 4 mg tablet 1-10 TABLET BY [facility] of 00:00: MOUTH EVERY 8 Medical HOURS Branch NEEDED FOR SEVERE MUSCLE SPASMS TIZANIDINE 2023-0 Yes [id number] TAKE 1 [facility] 4 mg tablet 1-10 TABLET BY [facility] of 00:00: MOUTH EVERY 8 Medical HOURS Branch NEEDED FOR SEVERE MUSCLE SPASMS TIZANIDINE 2023-0 Yes [id number] TAKE 1 [facility] 4 mg tablet 1-10 TABLET BY [facility] of 00:00: MOUTH EVERY 8 Medical HOURS Branch NEEDED FOR SEVERE MUSCLE SPASMS TIZANIDINE 2023-0 Yes [id number] TAKE 1 [facility] 4 mg tablet 1-10 TABLET BY [facility] of 00:00: MOUTH EVERY 8 Medical HOURS Branch NEEDED FOR SEVERE MUSCLE SPASMS TIZANIDINE 2023-0 Yes [id number] TAKE 1 [facility] 4 mg tablet 1-10 TABLET BY [facility] of 00:00: MOUTH EVERY 8 Medical HOURS Branch NEEDED FOR SEVERE MUSCLE SPASMS TIZANIDINE 2023-0 Yes [id number] TAKE 1 [facility] 4 mg tablet 1-10 TABLET BY [facility] of 00:00: MOUTH 00 EVERY 8 Medical HOURS Branch NEEDED FOR SEVERE MUSCLE SPASMS TIZANIDINE 2023-0 Yes [id number] TAKE 1 [facility] 4 mg tablet 1-10 TABLET BY it[facility] of 00:00: MOUTH EVERY 8 Medical HOURS Branch NEEDED FOR SEVERE MUSCLE SPASMS TIZANIDINE 2023-0 Yes [id number] TAKE 1 [facility] 4 mg tablet 1-10 TABLET BY [facility] of 00:00: MOUTH [place] 00 EVERY 8 Medical HOURS Branch NEEDED FOR SEVERE MUSCLE SPASMS TIZANIDINE 2023-0 Yes [id number] TAKE 1 [facility] 4 mg tablet 1-10 TABLET BY [facility] of 00:00: MOUTH [place] 00 EVERY 8 Medical HOURS Branch NEEDED FOR SEVERE MUSCLE SPASMS TIZANIDINE 2023-0 Yes [id number] TAKE 1 [facility] 4 mg tablet 1-10 TABLET BY [facility] of 00:00: MOUTH [place] 00 EVERY 8 Medical HOURS Branch NEEDED FOR SEVERE MUSCLE SPASMS TIZANIDINE 2023-0 Yes [id number] TAKE 1 [facility] 4 mg tablet 1-10 TABLET BY [facility] of 00:00: MOUTH [place] 00 EVERY 8 Medical HOURS Branch NEEDED FOR SEVERE MUSCLE SPASMS TIZANIDINE 2023-0 Yes [id number] TAKE 1 [facility] 4 mg tablet 1-10 TABLET BY [facility] of 00:00: MOUTH [place] 00 EVERY 8 Medical HOURS Branch NEEDED FOR SEVERE MUSCLE SPASMS TIZANIDINE 2023-0 Yes [id number] TAKE 1 [facility] 4 mg tablet 1-10 TABLET BY [facility] of 00:00: MOUTH [place] 00 EVERY 8 Medical HOURS Branch NEEDED FOR SEVERE MUSCLE SPASMS TIZANIDINE 3-0 Yes [id number] TAKE 1 [facility] 4 mg tablet 1-10 TABLET BY [facility] of 00:00: MOUTH [place] 00 EVERY 8 Medical HOURS Branch NEEDED FOR SEVERE MUSCLE SPASMS traMADoL 50 2022-0 2022- No [id number] 50mg [...] 50mg Take 1 [facility] mg tablet 1-09 01-17 tablet by ity of 00:00: 05:59 mouth [...] Indication s: acute pain traMADoL 50 2022-2022- No 4647 50mg Take 1 [facility] mg tablet 07-17 tablet by ity of 00:00: 05:59 mouth [place] 00 :00 every 6 Medical (six) Branch hours as needed for Pain (scale 4-6) for up to 7 days. Indication s: acute pain traMADoL 50 2022-2022- No 4647 50mg Take 1 [facility] mg tablet 07-17 tablet by [facility] of 00:00: 05:59 mouth [place] 00 :00 every 6 Medical (six) Branch hours as needed for Pain (scale 4-6) for up to 7 days. Indication s: acute pain traMADoL 50 2022-2022- No 4647 50mg Take 1 [facility] vers [...] s: acute pain traMADoL 50 0 2022- No 4647 50mg Take 1 [facility] mg tablet 07-17 tablet by [facility] of 00:00: 05:59 mouth [place] 00 :00 every 6 Medical (six) Branch hours as needed for Pain (scale 4-6) for up to 7 days. Indication s: acute pain traMADoL 50 0 2022- No 4647 50mg Take 1 [facility] mg tablet 07-17 tablet by ity of 00:00: 05:59 mouth [place] 00 :00 every 6 Medical (six) Branch hours as needed for Pain (scale 4-6) for up to 7 days. Indication s: acute pain traMADoL 50 2022- No 4647 50mg Take 1 [facility] mg tablet 07-17 tablet by it[facility] of 00:00: 05:59 mouth [place] 00 :00 every 6 Medical (six) Branch hours as needed for Pain (scale 4-6) for up to 7 days. Indication s: acute pain amitriptyli 3-0 Yes Un[facility] s ne 25 mg 1-08 ity of tablet 00:00: 00 Medical Branch amitriptyli 2023-0 Yes [facility] ne 25 mg 1-08 ity of tablet 00:00: 00 Medical Branch amitriptyli 2023-0 Yes [facility] ne 25 mg 1-08 ity of tablet 00:00: 00 Medical Branch amitriptyli 2023-0 Yes [facility] ne 25 mg 1-08 ity of tablet 00:00: 00 Medical Branch amitriptyli 2023-0 Yes [facility] ne 25 mg 1-08 ity of tablet 00:00: 00 Medical Branch amitriptyli 2023-0 Yes [facility] ne 25 mg 1-08 ity of tablet 00:00: 00 Medical Branch amitriptyli 2023-0 Yes [facility] ne 25 mg 1-08 ity of tablet 00:00: [place] 00 Medical Branch amitriptyli 2023-0 Yes [facility] ne 25 mg 1-08 ity of tablet 00:00: [place] 00 Medical Branch amitriptyli 2023-0 Yes Un[facility] s ne 25 mg 1-08 ity of tablet 00:00: [place] 00 Medical Branch amitriptyli 2023-0 Yes [facility] ne 25 mg 1-08 ity of tablet 00:00: [place] 00 Medical Branch amitriptyli 2023-0 Yes [facility] ne 25 mg 1-08 ity of tablet 00:00: [place] 00 Medical Branch amitriptyli 2023-0 Yes [facility] ne 25 mg 1-08 ity of tablet 00:00: [place] 00 [facility] Branch amitriptyli 3-0 Yes [facility] ne 25 mg 1-08 ity of tablet 00:00: [place] 00 [facility] Branch amitriptyli 3-0 Yes [facility] ne 25 mg 1-08 ity of tablet 00:00: [place] 00 Medical Branch amitriptyli 3-0 Yes [facility] ne 25 mg 1-08 ity of tablet 00:00: [place] 00 [facility] Branch amitriptyli 3-0 Yes [facility] ne 25 mg 1-08 ity of tablet 00:00: [place] 00 [facility] Branch amitriptyli 3-0 Yes [facility] ne 25 mg 1-08 ity of tablet 00:00: [place] 00 [facility] Branch amitriptyli 3-0 Yes [facility] ne 25 mg 1-08 ity of tablet 00:00: [place] 00 [facility] Branch amitriptyli 3-0 Yes [facility] ne 25 mg 1-08 ity of tablet 00:00: [place] 00 [facility] Branch amitriptyli 2023-0 Yes [facility] ne 25 mg 1-08 ity of tablet 00:00: [place] 00 [facility] Branch amitriptyli 2023-0 Yes [facility] ne 25 mg 1-08 ity of tablet 00:00: [place] 00 [facility] Branch amitriptyli 2023-0 Yes [facility] ne 25 mg 1-08 ity of tablet 00:00: [place] 00 [facility] Branch amitriptyli 2023-0 Yes [facility] ne 25 mg 1-08 ity of tablet 00:00: [place] 00 [facility] Branch amitriptyli 2023-0 Yes [facility] ne 25 mg 1-08 ity of tablet 00:00: [place] 00 [facility] Branch amitriptyli 2023-0 Yes [facility] ne 25 mg 1-08 ity of tablet 00:00: [place] 00 [facility] Branch amitriptyli 2023-0 Yes [facility] ne 25 mg 1-08 ity of tablet 00:00: [place] 00 [facility] Branch amitriptyli 2023-0 Yes [facility] ne 25 mg 1-08 ity of tablet 00:00: [place] 00 [facility] Branch amitriptyli 2023-0 Yes [facility] ne 25 mg 1-08 ity of tablet 00:00: [place] 00 [facility] Branch amitriptyli 2023-0 Yes [facility] ne 25 mg 1-08 ity of tablet 00:00: [place] 00 [facility] Branch amitriptyli 2023-0 Yes [facility] ne 25 mg 1-08 ity of tablet 00:00: [place] 00 [facility] Branch amitriptyli 2023-0 Yes [facility] ne 25 mg 1-08 ity of tablet 00:00: [place] 00 [facility] Branch amitriptyli 2023-0 Yes [facility] ne 25 mg 1-08 ity of tablet 00:00: [place] 00 [facility] Branch amitriptyli 2023-0 Yes [facility] ne 25 mg 1-08 ity of tablet 00:00: [place] 00 [facility] Branch amitriptyli 2023-0 Yes [facility] ne 25 mg 1-08 ity of tablet 00:00: [place] 00 [facility] Branch amitriptyli 2023-0 Yes [facility] ne 25 mg 1-08 ity of tablet 00:00: [place] 00 [facility] Branch amitriptyli 2023-0 Yes [facility] ne 25 mg 1-08 ity of tablet 00:00: [place] 00 [facility] Branch amitriptyli 2023-0 Yes [facility] ne 25 mg 1-08 ity of tablet 00:00: [place] 00 [facility] Branch amitriptyli 2023-0 Yes [facility] ne 25 mg 1-08 ity of tablet 00:00: [place] 00 [facility] Branch amitriptyli 2023-0 Yes [facility] ne 25 mg 1-08 ity of tablet 00:00: [place] 00 [facility] Branch amitriptyli 2023-0 Yes [facility] ne 25 mg 1-08 ity of tablet 00:00: [place] 00 [facility] Branch amitriptyli 2023-0 Yes [facility] ne 25 mg 1-08 ity of tablet 00:00: [place] 00 [facility] Branch amitriptyli 2023-0 Yes [facility] ne 25 mg 1-08 ity of tablet 00:00: [place] 00 [facility] Branch amitriptyli 2023-0 Yes [facility] ne 25 mg 1-08 ity of tablet 00:00: [place] 00 [facility] Branch amitriptyli 2023-0 Yes [facility] ne 25 mg 1-08 ity of tablet 00:00: [place] 00 [facility] Branch amitriptyli 2023-0 Yes [facility] ne 25 mg 1-08 ity of tablet 00:00: [place] 00 [facility] Branch amitriptyli 2023-0 Yes [facility] ne 25 mg 1-08 ity of tablet 00:00: [place] 00 [facility] Branch amitriptyli 2023-0 Yes [facility] ne 25 mg 1-08 ity of tablet 00:00: [place] 00 [facility] Branch amitriptyli 2023-0 Yes [facility] ne 25 mg 1-08 ity of tablet 00:00: [place] [address] Medical Branch amitriptyli 2023-0 Yes Univer s ne 25 mg 1-08 ity of tablet 00:00: [place] 00 Medical Branch amitriptyli 2023-0 Yes [facility] s ne 25 mg 1-08 ity of tablet 00:00: [place] 00 [facility] Branch amitriptyli 2023-0 Yes [facility] ne 25 mg 1-08 ity of tablet 00:00: [place] 00 [facility] Branch amitriptyli 2023-0 Yes [facility] ne 25 mg 1-08 ity of tablet 00:00: [place] 00 [facility] Branch amitriptyli 2023-0 Yes [facility] ne 25 mg 1-08 ity of tablet 00:00: [place] 00 [facility] Branch amitriptyli 2023-0 Yes [facility] ne 25 mg 1-08 ity of tablet 00:00: [place] 00 [facility] Branch amitriptyli 2023-0 Yes [facility] ne 25 mg 1-08 ity of tablet 00:00: [place] 00 [facility] Branch amitriptyli 2023-0 Yes [facility] ne 25 mg 1-08 ity of tablet 00:00: [place] 00 [facility] Branch amitriptyli 2023-0 Yes [facility] ne 25 mg 1-08 ity of tablet 00:00: [place] 00 [facility] Branch amitriptyli 2023-0 Yes [facility] ne 25 mg 1-08 ity of tablet 00:00: [place] 00 [facility] Branch amitriptyli 2023-0 Yes [facility] ne 25 mg 1-08 ity of tablet 00:00: [place] 00 [facility] Branch amitriptyli 2023-0 Yes [facility] ne 25 mg 1-08 ity of tablet 00:00: [place] 00 [facility] amitriptyli 3-0 Yes [facility] ne 25 mg 1-08 ity of tablet 00:00: [place] 00 [facility] amitriptyli 3-0 Yes [facility] ne 25 mg 1-08 ity of tablet 00:00: [place] 00 [facility] Branch amitriptyli 3-0 Yes [facility] ne 25 mg 1-08 ity of tablet 00:00: [place] 00 [facility] Branch amitriptyli 2023-0 Yes [facility] ne 25 mg 1-08 ity of tablet 00:00: [place] 00 [facility] Branch amitriptyli 3-0 Yes [facility] ne 25 mg 1-08 ity of tablet 00:00: [place] 00 [facility] Branch amitriptyli 3-0 Yes [facility] ne 25 mg 1-08 ity of tablet 00:00: [place] 00 [facility] Branch amitriptyli 3-0 Yes [facility] ne 25 mg 1-08 ity of tablet 00:00: [place] 00 Medical Branch LINZESS 145 3-0 Yes 145ug Take 1 [facility] mcg capsule 1-08 capsule by it y of 00:00: mouth in [place] 00 the Medical morning. Branch amitriptyli 3-0 Yes [facility] ne 25 mg 1-08 ity of tablet 00:00: [place] 00 Medical Branch LINZESS 145 3-0 Yes 145ug Take 1 [facility] mcg capsule 1-08 capsule by it y of 00:00: mouth in [place] 00 the Medical morning. Branch amitriptyli 3-0 Yes [facility] ne 25 mg 1-08 ity of tablet 00:00: [place] 00 Medical Branch LINZESS 145 3-0 Yes 145ug Take 1 [facility] mcg capsule 1-08 capsule by it y of 00:00: mouth in [place] the Medical morning. Branch amitriptyli 3-0 Yes [facility] ne 25 mg 1-08 ity of tablet 00:00: [place] 00 Medical Branch LINZESS 145 2023-0 Yes 145ug Take 1 [facility] mcg capsule 1-08 capsule by it y of 00:00: mouth in [place] the Medical morning. Branch amitriptyli 3-0 Yes [facility] ne 25 mg 1-08 ity of tablet 00:00: [place] 00 Medical Branch LINZESS 145 2023-0 Yes 145ug Take 1 [facility] mcg capsule 1-08 capsule by it y of 00:00: mouth in [place] the Medical morning. Branch amitriptyli 3-0 Yes [facility] ne 25 mg 1-08 ity of tablet 00:00: [place] 00 Medical Branch LINZESS 145 3-0 Yes 145ug Take 1 [facility] mcg capsule 1-08 capsule by it y of 00:00: mouth in [place] the Medical morning. Branch amitriptyli 3-0 Yes [facility] ne 25 mg 1-08 ity of tablet 00:00: [place] 00 Medical Branch LINZESS 145 3-0 Yes 145ug Take 1 [facility] mcg capsule 1-08 capsule by it y of 00:00: mouth in [place] the Medical morning. Branch amitriptyli 3-0 Yes [facility] ne 25 mg 1-08 ity of tablet 00:00: [place] 00 Medical Branch LINZESS 145 3-0 Yes 145ug Take 1 [facility] mcg capsule 1-08 capsule by it y of 00:00: mouth in [place] the Medical morning. Branch amitriptyli 3-0 Yes [facility] ne 25 mg 1-08 ity of tablet 00:00: [place] 00 Medical Branch LINZESS 145 2023-0 Yes 145ug Take 1 [facility] mcg capsule 1-08 capsule by it y of 00:00: mouth in [place] the Medical morning. Branch amitriptyli 2023-0 Yes [facility] ne 25 mg 1-08 ity of tablet 00:00: [place] 00 Medical Branch LINZESS 145 2023-0 Yes 145ug Take 1 [facility] mcg capsule 1-08 capsule by it y of 00:00: mouth in [place] the Medical morning. Branch amitriptyli 2023-0 Yes [facility] ne 25 mg 1-08 ity of tablet 00:00: [place] 00 Medical Branch LINZESS 145 2023-0 Yes 145ug Take 1 [facility] mcg capsule 1-08 capsule by it y of 00:00: mouth in [place] the Medical morning. Branch amitriptyli 2023-0 Yes [facility] ne 25 mg 1-08 ity of tablet 00:00: [place] 00 Medical Branch LINZESS 145 2023-0 Yes 145ug Take 1 [facility] mcg capsule 1-08 capsule by it y of 00:00: mouth in [place] the Medical morning. Branch amitriptyli 2023-0 Yes [facility] ne 25 mg 1-08 ity of tablet 00:00: [place] 00 Medical Branch LINZESS 145 3-0 Yes 145ug Take 1 [facility] mcg capsule 1-08 capsule by it y of 00:00: mouth in [place] the Medical morning. Branch amitriptyli 3-0 Yes [facility] ne 25 mg 1-08 ity of tablet 00:00: [place] 00 Medical Branch LINZESS 145 2023-0 Yes 145ug Take 1 [facility] mcg capsule 1-08 capsule by it y of 00:00: mouth in [place] the Medical morning. Branch amitriptyli 3-0 Yes [facility] ne 25 mg 1-08 ity of tablet 00:00: [place] 00 Medical Branch LINZESS 145 2023-0 Yes 145ug Take 1 [facility] mcg capsule 1-08 capsule by it y of 00:00: mouth in [place] the Medical morning. Branch amitriptyli 2023-0 Yes [facility] ne 25 mg 1-08 ity of tablet 00:00: [place] 00 Medical Branch LINZESS 145 2023-0 Yes 145ug Take 1 [facility] mcg capsule 1-08 capsule by it y of 00:00: mouth in [place] the Medical morning. Branch amitriptyli 2023-0 Yes [facility] ne 25 mg 1-08 ity of tablet 00:00: [place] 00 Medical Branch LINZESS 145 2023-0 Yes 145ug Take 1 [facility] mcg capsule 1-08 capsule by it y of 00:00: mouth in [place] the Medical morning. Branch amitriptyli 2023-0 Yes [facility] ne 25 mg 1-08 ity of tablet 00:00: [place] 00 Medical Branch LINZESS 145 3-0 Yes 145ug Take 1 [facility] vers mcg capsule 1-08 capsule by it y of 00:00: mouth in [place] the Medical morning. Branch amitriptyli 3-0 Yes [facility] ne 25 mg 1-08 ity of tablet 00:00: [place] 00 Medical Branch LINZESS 145 3-0 Yes 145ug Take 1 [facility] vers mcg capsule 1-08 capsule by it y of 00:00: mouth in [place] the Medical morning. Branch amitriptyli 3-0 Yes [facility] ne 25 mg 1-08 ity of tablet 00:00: [place] 00 Medical Branch LINZESS 145 3-0 Yes 145ug Take 1 [facility] vers mcg capsule 1-08 capsule by it y of 00:00: mouth in [place] the Medical morning. Branch amitriptyli 3-0 Yes [facility] ne 25 mg 1-08 ity of tablet 00:00: [place] 00 Medical Branch LINZESS 145 3-0 Yes 145ug Take 1 [facility] vers mcg capsule 1-08 capsule by it y of 00:00: mouth in [place] the Medical morning. Branch amitriptyli 3-0 Yes [facility] ne 25 mg 1-08 ity of tablet 00:00: [place] 00 Medical Branch LINZESS 145 3-0 Yes 145ug Take 1 [facility] mcg capsule 1-08 capsule by it y of 00:00: mouth in [place] the Medical morning. Branch amitriptyli 3-0 Yes [facility] ne 25 mg 1-08 ity of tablet 00:00: [place] 00 Medical Branch LINZESS 145 3-0 Yes 145ug Take 1 [facility] mcg capsule 1-08 capsule by it y of 00:00: mouth in [place] the Medical morning. Branch amitriptyli 3-0 Yes [facility] ne 25 mg 1-08 ity of tablet 00:00: [place] 00 Medical Branch LINZESS 145 3-0 Yes 145ug Take 1 [facility] vers mcg capsule 1-08 capsule by it y of 00:00: mouth in [place] the Medical morning. Branch amitriptyli 3-0 Yes [facility] ne 25 mg 1-08 ity of tablet 00:00: [place] 00 Medical Branch LINZESS 145 3-0 Yes 145ug Take 1 [facility] vers mcg capsule 1-08 capsule by it y of 00:00: mouth in [place] the Medical morning. Branch amitriptyli 3-0 Yes [facility] ne 25 mg 1-08 ity of tablet 00:00: [place] 00 Medical Branch LINZESS 145 3-0 Yes 145ug Take 1 [facility] vers mcg capsule 1-08 capsule by it y of 00:00: mouth in [place] the Medical morning. Branch amitriptyli 3-0 Yes [facility] ne 25 mg 1-08 ity of tablet 00:00: [place] 00 Medical Branch LINZESS 145 3-0 Yes 145ug Take 1 [facility] mcg capsule 1-08 capsule by it y of 00:00: mouth in [place] the Medical morning. Branch amitriptyli 3-0 Yes [facility] ne 25 mg 1-08 ity of tablet 00:00: [place] 00 Medical Branch LINZESS 145 3-0 Yes 145ug Take 1 [facility] vers mcg capsule 1-08 capsule by it y of 00:00: mouth in [place] the Medical morning. Branch amitriptyli 3-0 Yes [facility] ne 25 mg 1-08 ity of tablet 00:00: [place] 00 Medical Branch LINZESS 145 3-0 Yes 145ug Take 1 [facility] vers mcg capsule 1-08 capsule by it y of 00:00: mouth in [place] the Medical morning. Branch amitriptyli 3-0 Yes [facility] ne 25 mg 1-08 ity of tablet 00:00: [place] 00 Medical Branch LINZESS 145 3-0 Yes 145ug Take 1 [facility] vers mcg capsule 1-08 capsule by it y of 00:00: mouth in [place] the Medical morning. Branch amitriptyli 3-0 Yes [facility] ne 25 mg 1-08 ity of tablet 00:00: [place] 00 Medical Branch LINZESS 145 3-0 Yes 145ug Take 1 [facility] mcg capsule 1-08 capsule by it y of 00:00: mouth in [place] the Medical morning. Branch amitriptyli 2023-0 Yes [facility] ne 25 mg 1-08 ity of tablet 00:00: [place] 00 Medical Branch LINZESS 145 2023-0 Yes 145ug Take 1 [facility] mcg capsule 1-08 capsule by it y of 00:00: mouth in [place] 00 the Medical morning. Branch LINZESS 145 2023-0 Yes 145ug Take 1 [facility] mcg capsule 1-08 capsule by it y of 00:00: mouth in [place] 00 the Medical morning. Branch LINZESS 145 2023-0 Yes 145ug Take 1 [facility] mcg capsule 1-08 capsule by it y of 00:00: mouth in [place] 00 the Medical morning. Branch LINZESS 145 2023-0 Yes 145ug Take 1 [facility] mcg capsule 1-08 capsule by it y of 00:00: mouth in [place] 00 the Medical morning. Branch LINZESS 145 2023-0 Yes 145ug Take 1 [facility] mcg capsule 1-08 capsule by it y of 00:00: mouth in [place] 00 the Medical morning. Branch LINZESS 145 2023-0 Yes 145ug Take 1 [facility] mcg capsule 1-08 capsule by it y of 00:00: mouth in [place] 00 the Medical morning. Branch LINZESS 145 2023-0 Yes 145ug Take 1 [facility] mcg capsule 1-08 capsule by it y of 00:00: mouth in [place] 00 the Medical morning. Branch LINZESS 145 2023-0 Yes 145ug Take 1 [facility] mcg capsule 1-08 capsule by it y of 00:00: mouth in [place] 00 the Medical morning. Branch LINZESS 145 3-0 Yes 145ug Take 1 [facility] vers mcg capsule 1-08 capsule by it y of 00:00: mouth in [place] 00 the Medical morning. Branch LINZESS 145 2023-0 Yes 145ug Take 1 [facility] mcg capsule 1-08 capsule by it y of 00:00: mouth in [place] 00 the Medical morning. Branch LINZESS 145 2023-0 Yes 145ug Take 1 [facility] vers mcg capsule 1-08 capsule by it y of 00:00: mouth in [place] 00 the Medical morning. Branch LINZESS 145 2023-0 Yes 145ug Take 1 [facility] vers mcg capsule 1-08 capsule by it y of 00:00: mouth in [place] 00 the Medical morning. Branch LINZESS 145 2023-0 Yes 145ug Take 1 [facility] vers mcg capsule 1-08 capsule by it y of 00:00: mouth in [place] 00 the Medical morning. Branch LINZESS 145 2023-0 Yes 145ug Take 1 [facility] mcg capsule 1-08 capsule by it y of 00:00: mouth in [place] 00 the Medical morning. Branch LINZESS 145 2023-0 Yes 145ug Take 1 [facility] mcg capsule 1-08 capsule by it y of 00:00: mouth in [place] 00 the Medical morning. Branch LINZESS 145 2023-0 Yes 145ug Take 1 [facility] mcg capsule 1-08 capsule by it y of 00:00: mouth in [place] 00 the Medical morning. Branch LINZESS 145 2023-0 Yes 145ug Take 1 [facility] mcg capsule 1-08 capsule by it y of 00:00: mouth in [place] 00 the Medical morning. Branch LINZESS 145 2023-0 Yes 145ug Take 1 [facility] mcg capsule 1-08 capsule by it y of 00:00: mouth in [place] 00 the Medical morning. Branch LINZESS 145 2023-0 Yes 145ug Take 1 [facility] mcg capsule 1-08 capsule by it y of 00:00: mouth in [place] 00 the Medical morning. Branch LINZESS 145 2023-0 Yes 145ug Take 1 [facility] mcg capsule 1-08 capsule by it y of 00:00: mouth in [place] 00 the Medical morning. Branch LINZESS 145 2023-0 Yes 145ug Take 1 [facility] mcg capsule 1-08 capsule by it y of 00:00: mouth in [place] 00 the Medical morning. Branch LINZESS 145 2023-0 Yes 145ug Take 1 [facility] vers mcg capsule 1-08 capsule by it y of 00:00: mouth in [place] 00 the Medical morning. Branch LINZESS 145 2023-0 Yes 145ug Take 1 [facility] vers mcg capsule 1-08 capsule by it y of 00:00: mouth in [place] 00 the Medical morning. Branch LINZESS 145 2023-0 Yes 145ug Take 1 [facility] vers mcg capsule 1-08 capsule by it y of 00:00: mouth in [place] 00 the Medical morning. Branch LINZESS 145 2023-0 Yes 145ug Take 1 [facility] mcg capsule 1-08 capsule by it y of 00:00: mouth in [place] 00 the Medical morning. Branch LINZESS 145 2023-0 Yes 145ug Take 1 [facility] vers mcg capsule 1-08 capsule by it y of 00:00: mouth in [place] 00 the Medical morning. Branch LINZESS 145 2023-0 Yes 145ug Take 1 [facility] vers mcg capsule 1-08 capsule by it y of 00:00: mouth in [place] 00 the Medical morning. Branch LINZESS 145 2023-0 Yes 145ug Take 1 [facility] mcg capsule 1-08 capsule by it y of 00:00: mouth in [place] 00 the Medical morning. Branch LINZESS 145 2023-0 Yes 145ug Take 1 [facility] vers mcg capsule 1-08 capsule by it y of 00:00: mouth in [place] 00 the Medical morning. Branch LINZESS 145 2023-0 Yes 145ug Take 1 [facility] mcg capsule 1-08 capsule by it y of 00:00: mouth in [place] 00 the Medical morning. Branch LINZESS 145 2023-0 Yes 145ug Take 1 [facility] vers mcg capsule 1-08 capsule by it y of 00:00: mouth in [place] 00 the Medical morning. Branch LINZESS 145 2023-0 Yes 145ug Take 1 [facility] vers mcg capsule 1-08 capsule by it y of 00:00: mouth in [place] 00 the Medical morning. Branch LINZESS 145 2023-0 Yes 145ug Take 1 [facility] mcg capsule 1-08 capsule by it y of 00:00: mouth in [place] 00 the Medical morning. Branch LINZESS 145 2023-0 Yes 145ug Take 1 [facility] mcg capsule 1-08 capsule by it y of 00:00: mouth in [place] 00 the Medical morning. Branch LINZESS 145 2023-0 Yes 145ug Take 1 [facility] mcg capsule 1-08 capsule by it y of 00:00: mouth in [place] 00 the Medical morning. Branch LINZESS 145 2023-0 Yes 145ug Take 1 [facility] mcg capsule 1-08 capsule by it y of 00:00: mouth in [place] 00 the Medical morning. Branch LINZESS 145 2023-0 Yes 145ug Take 1 [facility] vers mcg capsule 1-08 capsule by it y of 00:00: mouth in [place] 00 the Medical morning. Branch LINZESS 145 2023-0 Yes 145ug Take 1 [facility] mcg capsule 1-08 capsule by it y of 00:00: mouth in [place] 00 the Medical morning. Branch LINZESS 145 2023-0 Yes 145ug Take 1 [facility] mcg capsule 1-08 capsule by it y of 00:00: mouth in [place] 00 the Medical morning. Branch LINZESS 145 2023-0 Yes 145ug Take 1 [facility] mcg capsule 1-08 capsule by it y of 00:00: mouth in [place] 00 the Medical morning. Branch LINZESS 145 2023-0 Yes 145ug Take 1 [facility] mcg capsule 1-08 capsule by it y of 00:00: mouth in [place] 00 the Medical morning. Branch LINZESS 145 2023-0 Yes 145ug Take 1 [facility] mcg capsule 1-08 capsule by it y of 00:00: mouth in [place] 00 the Medical morning. Branch LINZESS 145 2023-0 Yes 145ug Take 1 [facility] mcg capsule 1-08 capsule by it y of 00:00: mouth in [place] 00 the Medical morning. Branch LINZESS 145 2023-0 Yes 145ug Take 1 [facility] mcg capsule 1-08 capsule by it y of 00:00: mouth in [place] 00 the Medical morning. Branch LINZESS 145 2023-0 Yes 145ug Take 1 [facility] mcg capsule 1-08 capsule by it y of 00:00: mouth in [place] 00 the Medical morning. Branch LINZESS 145 2023-0 Yes 145ug Take 1 [facility] mcg capsule 1-08 capsule by it y of 00:00: mouth in [place] 00 the Medical morning. Branch LINZESS 145 2023-0 Yes 145ug Take 1 [facility] mcg capsule 1-08 capsule by it y of 00:00: mouth in [place] 00 the Medical morning. Branch LINZESS 145 2023-0 Yes 145ug Take 1 [facility] mcg capsule 1-08 capsule by it y of 00:00: mouth in [place] 00 the Medical morning. Branch LINZESS 145 2023-0 Yes 145ug Take 1 [facility] mcg capsule 1-08 capsule by it y of 00:00: mouth in [place] 00 the Medical morning. Branch LINZESS 145 2023-0 Yes 145ug Take 1 [facility] mcg capsule 1-08 capsule by it y of 00:00: mouth in [place] 00 the Medical morning. Branch LINZESS 145 2023-0 Yes 145ug Take 1 [facility] mcg capsule 1-08 capsule by it y of 00:00: mouth in [place] 00 the Medical morning. Branch LINZESS 145 2023-0 Yes 145ug Take 1 [facility] vers mcg capsule 1-08 capsule by it y of 00:00: mouth in [place] 00 the Medical morning. Branch LINZESS 145 2023-0 Yes 145ug Take 1 [facility] mcg capsule 1-08 capsule by it y of 00:00: mouth in [place] 00 the Medical morning. Branch LINZESS 145 2023-0 Yes 145ug Take 1 [facility] mcg capsule 1-08 capsule by it y of 00:00: mouth in [place] 00 the Medical morning. Branch LINZESS 145 2023-0 Yes 145ug Take 1 [facility] mcg capsule 1-08 capsule by it y of 00:00: mouth in [place] 00 the Medical morning. Branch LINZESS 145 2023-0 Yes 145ug Take 1 [facility] mcg capsule 1-08 capsule by it y of 00:00: mouth in [place] 00 the Medical morning. Branch LINZESS 145 2023-0 Yes 145ug Take 1 [facility] mcg capsule 1-08 capsule by it y of 00:00: mouth in [place] 00 the Medical morning. Branch LINZESS 145 2023-0 Yes 145ug Take 1 [facility] mcg capsule 1-08 capsule by it y of 00:00: mouth in [place] 00 the Medical morning. Branch LINZESS 145 2023-0 Yes 145ug Take 1 [facility] mcg capsule 1-08 capsule by it y of 00:00: mouth in [place] 00 the Medical morning. Branch LINZESS 145 2023-0 Yes 145ug Take 1 [facility] mcg capsule 1-08 capsule by it y of 00:00: mouth in [place] 00 the Medical morning. Branch LINZESS 145 2023-0 Yes 145ug Take 1 [facility] mcg capsule 1-08 capsule by it y of 00:00: mouth in [place] 00 the Medical morning. Branch LINZESS 145 2023-0 Yes 145ug Take 1 [facility] mcg capsule 1-08 capsule by it y of 00:00: mouth in [place] 00 the Medical morning. Branch LINZESS 145 2023-0 Yes 145ug Take 1 [facility] mcg capsule 1-08 capsule by it y of 00:00: mouth in [place] 00 the Medical morning. Branch LINZESS 145 2023-0 Yes 145ug Take 1 [facility] mcg capsule 1-08 capsule by it y of 00:00: mouth in [place] 00 the Medical morning. Branch LINZESS 145 2023-0 Yes 145ug Take 1 [facility] mcg capsule 1-08 capsule by it y of 00:00: mouth in [place] 00 the Medical morning. Branch LINZESS 145 2023-0 Yes 145ug Take 1 [facility] mcg capsule 1-08 capsule by it y of 00:00: mouth in [place] 00 the Medical morning. Branch LINZESS 145 2023-0 Yes 145ug Take 1 [facility] mcg capsule 1-08 capsule by it y of 00:00: mouth in [place] 00 the Medical morning. Branch LINZESS 145 2023-0 Yes 145ug Take 1 [facility] mcg capsule 1-08 capsule by it y of 00:00: mouth in [place] 00 the Medical morning. Branch LINZESS 145 2023-0 Yes 145ug Take 1 [facility] mcg capsule 1-08 capsule by it y of 00:00: mouth in [place] 00 the Medical morning. Branch LINZESS 145 2023-0 Yes 145ug Take 1 [facility] mcg capsule 1-08 capsule by it y of 00:00: mouth in [place] 00 the Medical morning. Branch LINZESS 145 2023-0 Yes 145ug Take 1 [facility] mcg capsule 1-08 capsule by it y of 00:00: mouth in [place] 00 the Medical morning. Branch LINZESS 145 2023-0 Yes 145ug Take 1 [facility] mcg capsule 1-08 capsule by it y of 00:00: mouth in [place] 00 the Medical morning. Branch LINZESS 145 2023-0 Yes 145ug Take 1 [facility] mcg capsule 1-08 capsule by it y of 00:00: mouth in [place] 00 the Medical morning. Branch LINZESS 145 2023-0 Yes 145ug Take 1 [facility] mcg capsule 1-08 capsule by it y of 00:00: mouth in [place] 00 the Medical morning. Branch LINZESS 145 2023-0 Yes 145ug Take 1 [facility] mcg capsule 1-08 capsule by it y of 00:00: mouth in [place] 00 the Medical morning. Branch LINZESS 145 2023-0 Yes 145ug Take 1 [facility] mcg capsule 1-08 capsule by it y of 00:00: mouth in [place] 00 the Medical morning. Branch LINZESS 145 2023-0 Yes 145ug Take 1 [facility] mcg capsule 1-08 capsule by it y of 00:00: mouth in [place] 00 the Medical morning. Branch LINZESS 145 2023-0 Yes 145ug Take 1 [facility] mcg capsule 1-08 capsule by it y of 00:00: mouth in [place] 00 the Medical morning. Branch LINZESS 145 2023-0 Yes 145ug Take 1 [facility] mcg capsule 1-08 capsule by it y of 00:00: mouth in [place] 00 the Medical morning. Branch LINZESS 145 2023-0 Yes 145ug Take 1 [facility] mcg capsule 1-08 capsule by it y of 00:00: mouth in [place] the Medical morning. [place] CUELLARS 145 3-0 Yes 145ug Take 1 [facility] mcg capsule 1-08 capsule by it y of 00:00: mouth in [place] the Medical morning. Branch ALISAS 145 3-0 Yes 145ug Take 1 [facility] mcg capsule 1-08 capsule by it y of 00:00: mouth in [place] the Medical morning. Branch ALISAS 145 3-0 Yes 145ug Take 1 [facility] mcg capsule 1-08 capsule by it y of 00:00: mouth in [place] the Medical morning. Branch ALISAS 145 3-0 Yes 145ug Take 1 [facility] mcg capsule 1-08 capsule by it y of 00:00: mouth in [place] the Medical morning. Branch ALISAS 145 3-0 Yes 145ug Take 1 [facility] mcg capsule 1-08 capsule by it y of 00:00: mouth in [place] the Medical morning. Branch MONIQUE 145 3-0 Yes 145ug Take 1 [facility] mcg capsule 1-08 capsule by it y of 00:00: mouth in [place] the Medical morning. Branch MONIQUE 145 3-0 Yes 145ug Take 1 [facility] mcg capsule 1-08 capsule by it y of 00:00: mouth in [place] the Medical morning. Branch MONIQUE 145 3-0 Yes 145ug Take 1 [facility] mcg capsule 1-08 capsule by it y of 00:00: mouth in [place] the Medical morning. Branch amitriptyli 2022-0 2022- No Unive rs ne 25 mg 07-16 ity of tablet 00:00: 00:00 [place] 00 :00 Medical Branch amitriptyli 2022-0 3- No Unive rs ne 25 mg 07-16- ity of tablet 00:00: 00:00 [place] 00 :00 Medical Branch sterile 2021-07 Yes [facility]ject [facility] [...] mcg-1 mg-0.5 mg-60mcg-5m g/mL Soln 1 mL sterile 2021-[address] [facility] water [...] mcg-1 mg-0.5 mg-60mcg-5m g/mL Soln 1 mL sterile 2021-[address] [facility] water [...] mcg-1 mg-0.5 mg-60mcg-5m g/mL Soln 1 mL sterile 2021-[address] [facility] water [...] g/mL Soln 1 mL pancrelipas 2021-07 Yes [id number]{ Q.63845131 Take [facility] e, 2-27 lipase} [id number] 36,000 [facility] Lip-Prot-Am 12:05: 3D units of Me dical yl, (Creon) [address] 36,000-114, mouth 3 000- (three) 180,000 times unit CpDR daily. capsule apixaban 2021-07 Yes 5mg Q.5D Take [address] [facility] (Eliquis) 5 2-27 by mouth 2 [facility] kes mg Tab 12:05: (two) Medical tablet 48 times Center daily. pancrelipas 2021-07 Yes [id number]{ Q.17127205 Take [facility], 2-27 lipase} [id number] 36,000 [facility] Lip-Prot-Am 12:05: 3D units of Me dical yl, (Creon) [address] 36,000-114, mouth 3 000- (three) 180,000 times unit CpDR daily. capsule apixaban 2021-07 Yes 5mg Q.5D Take [address] [facility] (Eliquis) 5 2-27 by mouth 2 [place] kes mg Tab 12:05: (two) Medical tablet 48 times Center daily. pancrelipas 2021-07 Yes [id number]{ Q.32837723 Take [facility], 2-27 lipase} [id number] 36,000 [facility] Lip-Prot-Am 12:05: 3D units of Me dical yl, (Creon) [address] 36,000-114, mouth 3 000- (three) 180,000 times unit CpDR daily. capsule apixaban 2021-07 Yes 5mg Q.5D Take [address] [facility] (Eliquis) 5 2-27 by mouth 2 [place] kes mg Tab 12:05: (two) Medical tablet 48 times Center daily. pancrelipas 2021-07 Yes [id number]{ Q.94325134 Take [facility], 2-27 lipase} [id number] 36,000 [facility] Lip-Prot-Am 12:05: 3D units of Me dical yl, (Creon) [address] 36,000-114, mouth 3 000- (three) 180,000 times unit CpDR daily. capsule apixaban 2021-07 Yes 5mg Q.5D Take [address] [facility] (Eliquis) 5 2-27 by mouth 2 [place] kes mg Tab 12:05: (two) Medical tablet 48 times Center daily. levothyroxi 2021-07 Yes 100ug Take [address] [...] Medic al 40 MG 47 Center tablet nadoloL 2021-07 Yes 40mg QD Take 40 [...] daily as needed for Itching . levothyroxi 2021-07 Yes 100ug Take [address] [...] Medic al 47 daily as Center needed. promethazin 2021-07 Yes 50mg Take 50 mg [...] Medic al 47 daily as Center needed. nadoloL 2021-07 Yes 40mg QD Take 40 [...] daily as needed for Itching . levothyroxi 2021-07 Yes 100ug Take [address] [...] Medic al 47 daily as Center needed. nadoloL 2021-07 Yes 40mg QD Take 40 [...] daily as needed for Itching . levothyroxi 2021-07 Yes 100ug Take [address] [...] Medic al 47 daily as Center needed. nadoloL 2021-07 Yes 40mg QD Take 40 [...] Center daily as needed for Itching . tiZANidine 2021-07 Yes 4mg Take [address] [facility] [address] [facility] (ZANAFLEX) 2-27 [facility] tablet 12:05: every 6 Med ical 46 (six) Center hours as needed. tiZANidine 2021-07 Yes 4mg Take [address] [facility] [address] [facility] (ZANAFLEX) 2-27 [facility] MG tablet 12:05: every 6 Med ical 46 (six) Center hours as needed. tiZANidine 2021-07 Yes 4mg Take [address] [facility] [address] [facility] (ZANAFLEX) 2-27 by [facility] 4 MG tablet 12:05: every 6 Med ical 46 (six) Center hours as needed. tiZANidine 2021-07 Yes 4mg Take [address] [facility] [address] [facility] (ZANAFLEX) 2-27 by [facility] 4 MG tablet 12:05: every 6 Med ical 46 (six) Center hours as needed. apixaban 2021-07 Yes [id number] 5mg Take 1 [...] s: history of deep vein thrombosis apixaban 2022-1 Yes 5523 5mg Take 1 [facility] (ELIQUIS) [...] s: history of deep vein thrombosis apixaban 2022-1 Yes 5523 5mg Take 1 [facility] (ELIQUIS) [...] s: history of deep vein thrombosis apixaban 2022-1 Yes 5523 5mg Take 1 [facility] (ELIQUIS) [...] s: history of deep vein thrombosis apixaban 2022-1 Yes 5523 5mg Take 1 [facility] (ELIQUIS) [...] s: history of deep vein thrombosis apixaban 2022-1 Yes 5523 5mg Take 1 [facility] (ELIQUIS) [...] s: history of deep vein thrombosis apixaban 2022-1 Yes 5523 5mg Take 1 [facility] (ELIQUIS) [...] s: history of deep vein thrombosis apixaban 2021-07- No 5523 5mg Take 1 Univer s (ELIQUIS) 5 07-0905 tablet by it y of mg tablet 00:00: 00:00 mouth in [place] 00 :00 the Medical morning Branch and 1 tablet in the evening. Indication s: history of deep vein thrombosis apixaban 2021-07- No 5523 5mg Take 1 Univer s (ELIQUIS) 5 07-0905 tablet by it y of mg tablet 00:00: 00:00 mouth in [place] 00 :00 the Medical morning Branch and 1 tablet in the evening. Indication s: history of deep vein thrombosis apixaban 2021-07- No 5523 5mg Take 1 Un[facility] s (ELIQUIS) 5 07-0905 tablet by it y of mg tablet 00:00: 00:00 mouth in [place] 00 :00 the Medical morning Branch and 1 tablet in the evening. Indication s: history of deep vein thrombosis apixaban 2021-07- No 5523 5mg Take 1 Un[facility] s (ELIQUIS) 5 07-0905 tablet by it y of mg tablet 00:00: 00:00 mouth in [place] 00 :00 the Medical morning Branch and 1 tablet in the evening. Indication s: history of deep vein thrombosis enoxaparin 2021-07 Yes [id number] 100mg inject 1 [facility] (LOVENOX) 0-26 [id number] mL under ity of 100 mg/mL 00:00: [place] injection 00 every 12 Medica l (twelve) Branch hours. enoxaparin 2021-07 Yes [id number] 100mg inject 1 [facility] (LOVENOX) 0-26 [id number] mL under ity of 100 mg/mL 00:00: [place] injection 00 every 12 Medica l (twelve) Branch hours. enoxaparin 2021-07 Yes [id number] 100mg inject 1 [facility] (LOVENOX) 0-26 [id number] mL under ity of 100 mg/mL 00:00: [place] injection 00 every 12 Medica l (twelve) Branch hours. enoxaparin 2021-07 Yes [id number] 100mg inject 1 [facility] (LOVENOX) 0-26 [id number] mL under ity of 100 mg/mL 00:00: [place] injection 00 every 12 Medica l (twelve) Branch hours. enoxaparin 2021-07 Yes [id number] 100mg inject 1 [facility] (LOVENOX) 0-26 [id number] mL under ity of 100 mg/mL 00:00: [place] injection 00 every 12 Medica l (twelve) Branch hours. enoxaparin 2021-07 Yes [id number] 100mg inject 1 [facility] (LOVENOX) 0-26 [id number] mL under ity of 100 mg/mL 00:00: [place] injection 00 every 12 Medica l (twelve) Branch hours. enoxaparin 2021-07 Yes [id number] 100mg inject 1 [facility] (LOVENOX) 0-26 [id number] mL under ity of 100 mg/mL 00:00: [place] injection 00 every 12 Medica l (twelve) Branch hours. enoxaparin 2021-07 Yes [id number] 100mg inject 1 [facility] (LOVENOX) 0-26 [id number] mL under ity of 100 mg/mL 00:00: [place] injection 00 every 12 Medica l (twelve) Branch hours. enoxaparin 2021-07 Yes [id number] 100mg inject 1 [facility] (LOVENOX) 0-26 [id number] mL under ity of 100 mg/mL 00:00: [place] 00 every 12 Medica l (twelve) Branch hours. enoxaparin 2021-07- No [id number] 100mg inject 1 [facility] (LOVENOX) 0-26 11-01 [id number] mL under ity of 100 mg/mL 00:00: 00:00 the skin [place] injection 00 :00 every 12 Medica l (twelve) Branch hours. enoxaparin 2021-07- No [id number] 100mg inject 1 [facility] (LOVENOX) 0-26 11-01 [id number] mL under ity of 100 mg/mL 00:00: 00:00 the skin [place] injection 00 :00 every 12 Medica l (twelve) Branch hours. enoxaparin 2021-07- No [id number] 100mg inject 1 [facility] (LOVENOX) 0-26 11-01 [id number] mL under ity of 100 mg/mL 00:00: 00:00 the skin [place] injection 00 :00 every 12 Medica l (twelve) Branch hours. enoxaparin 2021-07- No [id number] 100mg inject 1 [facility] (LOVENOX) 0-26 11- 894137 mL under ity of 100 mg/mL 00:00: 00:00 the skin [place] injection 00 :00 every 12 Medica l (twelve) Branch hours. enoxaparin 2021-07- No [id number] 100mg inject 1 [facility] (LOVENOX) 0-26 11- 919076 mL under ity of 100 mg/mL 00:00: 00:00 the skin [place] injection 00 :00 every 12 Medica l (twelve) Branch hours. enoxaparin 2021-07- No [id number] 100mg inject 1 [facility] (LOVENOX) 0-26 11- [id number] mL under ity of 100 mg/mL 00:00: 00:00 the skin [place] injection 00 :00 every 12 Medica l (twelve) Branch hours. enoxaparin 2021-07- No [id number] 100mg inject 1 [facility] (LOVENOX) 0-26 11- 939195 mL under ity of 100 mg/mL 00:00: [...] Sun05/01/22 at 1900, VESNA enoxaparin 2021-07- No [id number] 100mg inject 1 [facility] (LOVENOX) 0-24 11-24 [id number] mL under ity of 100 mg/mL 00:00: 05:59 the skin [place] injection 00 :00 every 12 Medica l (twelve) Branch hours for 30 days. enoxaparin 2021-07- No [id number] 100mg inject 1 [facility] (LOVENOX) 0-24 11-24 [id number] mL under ity of 100 mg/mL 00:00: 05:59 the skin [place] injection 00 :00 every 12 Medica l (twelve) Branch hours for 30 days. enoxaparin 2021-07- No [id number] 100mg inject 1 [facility] (LOVENOX) 0-24 11-24 [id number] mL under ity of 100 mg/mL 00:00: 05:59 the skin [place] injection 00 :00 every 12 Medica l (twelve) Branch hours for 30 days. enoxaparin 2021-07- No [id number] 100mg inject 1 [facility] (LOVENOX) 0-24 11-24 [id number] mL under ity of 100 mg/mL 00:00: 05:59 the skin [place] injection 00 :00 every 12 Medica l (twelve) Branch hours for 30 days. enoxaparin 2021-07- No [id number] 100mg inject 1 [facility] (LOVENOX) 0-24 11-24 [id number] mL under ity of 100 mg/mL 00:00: 05:59 the skin [place] injection 00 :00 every 12 Medica l (twelve) Branch hours for 30 days. enoxaparin 2021-07- No [id number] 100mg inject 1 [facility] (LOVENOX) 0-24 11-24 [id number] mL under ity of 100 mg/mL 00:00: 05:59 the skin [place] injection 00 :00 every 12 Medica l (twelve) Branch hours for 30 days. enoxaparin 2021-07- No [id number] 100mg inject 1 [facility] (LOVENOX) 0-24 10-26 [id number] mL under ity of 100 mg/mL 00:00: 00:00 the skin [place] injection 00 :00 every 12 Medica l (twelve) Branch hours for 30 days. enoxaparin 2021-07- No [id number] 100mg inject 1 [facility] (LOVENOX) 0-24 10-26 [id number] mL under ity of 100 mg/mL 00:00: 00:00 the skin [place] injection 00 :00 every 12 Medica l (twelve) Branch hours for 30 days. enoxaparin 2021-07- No [id number] 100mg inject 1 [facility] (LOVENOX) 0-24 10-26 [id number] mL under ity of 100 mg/mL 00:00: 00:00 the skin [place] injection 00 :00 every 12 Medica l (twelve) Branch hours for 30 days. enoxaparin 2021-07- No [id number] 100mg inject 1 [facility] (LOVENOX) 0-24 10-26 [id number] mL under ity of 100 mg/mL 00:00: 00:00 the skin [place] injection 00 :00 every 12 Medica l (twelve) Branch hours for 30 days. enoxaparin 2021-07- No [id number] 100mg inject 1 [facility] (LOVENOX) 0-24 10-26 [id number] mL under ity of 100 mg/mL 00:00: 00:00 the skin [place] injection 00 :00 every 12 Medica l (twelve) Branch hours for 30 days. enoxaparin 2021-07- No [id number] 100mg inject 1 [facility] (LOVENOX) 0-24 10-26 [id number] mL under ity of 100 mg/mL 00:00: 00:00 the skin [place] injection 00 :00 every 12 Medica l (twelve) Branch hours for 30 days. FENTanyl PF 2021-07 Yes Slow IV Uni vers (SUBLIMAZE 0-19 Push, PRN, ity of (PF)) 15:12: Starting [place] injection 43 on [facility] 04/26/22 Branch at 1012, Until Discontinu ed, Routine FENTanyl PF 2021-07- No Slow IV Un bry (SUBLIMAZE 0-19 10-20 Push, PRN, it y of (PF)) 15:12: 09:10 Starting [place] injection 43 :59 on [facility] 04/26/22 Branch at 1012, Until [place] 04/27/22 at 0410, Routine midazolam 2021-07 Yes IV Push, Univ ers (VERSED) 0-19 PRN, ity of injection 15:12: [place] 40 on [facility] 04/26/22 Branch at 1012, Until Discontinu ed, Routine midazolam 2021-07- No IV Push, Uni vers (VERSED) 0-19 10-20 PRN, ity of injection 15:12: 09:10 Starting [place] 40 :59 on [facility] 04/26/22 Branch at 1012, Until [place] 04/27/22 at 0410, Routine ceFAZolin 2021-07 Yes Slow IV Unive rs (ANCEF) 0-19 Push, PRN, ity of injection 14:55: [place] 40 on [facility] 04/26/22 Branch at 0955, Until Discontinu ed, VESNA ceFAZolin 2021-07- No Slow IV Univ ers (ANCEF) 0-19 10-20 Push, PRN, ity o f injection 14:55: 09:10 Starting [place] 40 :59 on [facility] 04/26/22 Branch at 0955, Until [place] 04/27/22 at 0410, VESNA iopamidol 2021-07- No [id number] 120mL 120 mL, Univers (ISOVUE 0-14 10-14 Intravenou ity o f 370-500 mL) 17:15: 16:26 s, ONCE, 1 [place] injection 00 :00 dose, On Medica l 120 mL Fri Branch 04/21/22 at 1215, Routine levetiracet 2021-07 Yes 500mg Take 500 U nivers am (KEPPRA 0-14 mg by ity of ORAL) 09:20: mouth 2 [place] [address] (two) Medical times Branch daily. levetiracet 2021-07 Yes 500mg Take 500 U nivers am (KEPPRA 0-14 mg by ity of ORAL) 09:20: mouth 2 [place] [address] (two) Medical times Branch daily. levetiracet 2021-07 Yes 500mg Take 500 U nivers am (KEPPRA 0-14 mg by ity of ORAL) 09:20: mouth 2 [place] [address] (two) Medical times Branch daily. levetiracet 2021-07 Yes 500mg Take 500 U nivers am (KEPPRA 0-14 mg by ity of ORAL) 09:20: mouth 2 [place] [address] (two) Medical times Branch daily. levetiracet 2021-07 Yes 500mg Take 500 U nivers am (KEPPRA 0-14 mg by ity of ORAL) 09:20: mouth 2 [place] [address] (two) Medical times Branch daily. levetiracet 2021-07 Yes 500mg Take 500 U nivers am (KEPPRA 0-14 mg by ity of ORAL) 09:20: mouth [address] [place] [address] (two) Medical times Branch daily. levetiracet 2-1 Yes 500mg Take 500 U nivers am (KEPPRA 0-14 mg by ity of ORAL) 09:20: mouth [address] [place] [address] (two) Medical times Branch daily. levetiracet 2-1 Yes 500mg Take 500 U nivers am (KEPPRA 0-14 mg by ity of ORAL) 09:20: mouth [address] [place] [address] (two) Medical times Branch daily. levetiracet 2021-1 Yes 500mg Take 500 U nivers am (KEPPRA 0-14 mg by ity of ORAL) 09:20: [place] [address] (two) Medical times Branch daily. levetiracet 2-1 Yes 500mg Take 500 U nivers am (KEPPRA 0-14 mg by ity of ORAL) 09:20: [place] [address] (two) Medical times Branch daily. levetiracet 2021-1 Yes 500mg Take 500 U nivers am (KEPPRA 0-14 mg by ity of ORAL) 09:20: mouth [address] [place] [address] (two) Medical times Branch daily. levetiracet 2021-1 Yes 500mg Take 500 U nivers am (KEPPRA 0-14 mg by ity of ORAL) 09:20: [place] [address] (two) Medical times Branch daily. levetiracet 2-1 Yes 500mg Take 500 U nivers am (KEPPRA 0-14 mg by ity of ORAL) 09:20: [place] [address] (two) Medical times Branch daily. levetiracet 2-1 Yes 500mg Take 500 U nivers am (KEPPRA 0-14 mg by ity of ORAL) 09:20: [place] [address] (two) Medical times Branch daily. levetiracet 2-1 Yes 500mg Take 500 U nivers am (KEPPRA 0-14 mg by ity of ORAL) 09:20: mouth [address] [place] [address] (two) Medical times Branch daily. levetiracet 2-1 Yes 500mg Take 500 U nivers am (KEPPRA 0-14 mg by ity of ORAL) 09:20: mouth [address] [place] [address] (two) Medical times Branch daily. levetiracet 2-1 Yes 500mg Take 500 U nivers am (KEPPRA 0-14 mg by ity of ORAL) 09:20: mouth [address] [place] [address] (two) Medical times Branch daily. levetiracet 2-1 Yes 500mg Take 500 U nivers am (KEPPRA 0-14 mg by ity of ORAL) 09:20: mouth [address] [place] [address] (two) Medical times Branch daily. levetiracet 2-1 Yes 500mg Take 500 U nivers am (KEPPRA 0-14 mg by ity of ORAL) 09:20: mouth [address] [place] [address] (two) Medical times Branch daily. levetiracet 2-1 Yes 500mg Take 500 U nivers am (KEPPRA 0-14 mg by ity of ORAL) 09:20: [place] [address] (two) Medical times Branch daily. levetiracet 2021-1 Yes 500mg Take 500 U nivers am (KEPPRA 0-14 mg by ity of ORAL) 09:20: [place] [address] (two) Medical times Branch daily. levetiracet 2021-1 Yes 500mg Take 500 U nivers am (KEPPRA 0-14 mg by ity of ORAL) 09:20: [place] [address] (two) Medical times Branch daily. levetiracet 2-1 Yes 500mg Take 500 U nivers am (KEPPRA 0-14 mg by ity of ORAL) 09:20: [place] [address] (two) Medical times Branch daily. levetiracet 2-1 Yes 500mg Take 500 U nivers am (KEPPRA 0-14 mg by ity of ORAL) 09:20: [place] [address] (two) Medical times Branch daily. levetiracet 2-1 Yes 500mg Take 500 U nivers am (KEPPRA 0-14 mg by ity of ORAL) 09:20: [place] [address] (two) Medical times Branch daily. levetiracet 2-1 Yes 500mg Take 500 U nivers am (KEPPRA 0-14 mg by ity of ORAL) 09:20: [place] [address] (two) Medical times Branch daily. levetiracet 2-1 Yes 500mg Take 500 U nivers am (KEPPRA 0-14 mg by ity of ORAL) 09:20: mouth [address] [place] [address] (two) Medical times Branch daily. levetiracet 2021- Yes 500mg Take 500 U nivers am (KEPPRA 0-14 mg by ity of ORAL) 09:20: mouth [address] [place] [address] (two) Medical times Branch daily. levetiracet 2021-1 Yes 500mg Take 500 U nivers am (KEPPRA 0-14 mg by ity of ORAL) 09:20: mouth [address] [place] [address] (two) Medical times Branch daily. levetiracet 2021- Yes 500mg Take 500 U nivers am (KEPPRA 0-14 mg by ity of ORAL) 09:20: mouth [address] [place] [address] (two) Medical times Branch daily. levetiracet 2021- Yes 500mg Take 500 U nivers am (KEPPRA 0-14 mg by ity of ORAL) 09:20: [place] [address] (two) Medical times Branch daily. levetiracet 2021- Yes 500mg Take 500 U nivers am (KEPPRA 0-14 mg by ity of ORAL) 09:20: mouth [address] [place] [address] (two) Medical times Branch daily. levetiracet 2021- Yes 500mg Take 500 U nivers am (KEPPRA 0-14 mg by ity of ORAL) 09:20: mouth [address] [place] [address] (two) Medical times Branch daily. levetiracet 2021- Yes 500mg Take 500 U nivers am (KEPPRA 0-14 mg by ity of ORAL) 09:20: [place] [address] (two) Medical times Branch daily. levetiracet 2021- Yes 500mg Take 500 U nivers am (KEPPRA 0-14 mg by ity of ORAL) 09:20: mouth [address] [place] [address] (two) Medical times Branch daily. levetiracet 2-1 Yes 500mg Take 500 U nivers am (KEPPRA 0-14 mg by ity of ORAL) 09:20: mouth [address] [place] [address] (two) Medical times Branch daily. levetiracet 2-1 Yes 500mg Take 500 U nivers am (KEPPRA 0-14 mg by ity of ORAL) 09:20: mouth [address] [place] [address] (two) Medical times Branch daily. levetiracet 2-1 Yes 500mg Take 500 U nivers am (KEPPRA 0-14 mg by ity of ORAL) 09:20: mouth [address] [place] [address] (two) Medical times Branch daily. levetiracet 2-1 Yes 500mg Take 500 U nivers am (KEPPRA 0-14 mg by ity of ORAL) 09:20: mouth [address] [place] [address] (two) Medical times Branch daily. levetiracet 2-1 Yes 500mg Take 500 U nivers am (KEPPRA 0-14 mg by ity of ORAL) 09:20: mouth [address] [place] [address] (two) Medical times Branch daily. levetiracet 2-1 Yes 500mg Take 500 U nivers am (KEPPRA 0-14 mg by ity of ORAL) 09:20: [place] [address] (two) Medical times Branch daily. levetiracet 2021-1 Yes 500mg Take 500 U nivers am (KEPPRA 0-14 mg by ity of ORAL) 09:20: [place] [address] (two) Medical times Branch daily. levetiracet 2021-1 Yes 500mg Take 500 U nivers am (KEPPRA 0-14 mg by ity of ORAL) 09:20: [place] [address] (two) Medical times Branch daily. levetiracet 2021-1 Yes 500mg Take 500 U nivers am (KEPPRA 0-14 mg by ity of ORAL) 09:20: [place] [address] (two) Medical times Branch daily. levetiracet 2021-1 Yes 500mg Take 500 U nivers am (KEPPRA 0-14 mg by ity of ORAL) 09:20: [place] [address] (two) Medical times Branch daily. levetiracet 2-1 Yes 500mg Take 500 U nivers am (KEPPRA 0-14 mg by ity of ORAL) 09:20: [place] [address] (two) Medical times Branch daily. levetiracet 2-1 Yes 500mg Take 500 U nivers am (KEPPRA 0-14 mg by ity of ORAL) 09:20: [place] [address] (two) Medical times Branch daily. levetiracet 2021-1 Yes 500mg Take 500 U nivers am (KEPPRA 0-14 mg by ity of ORAL) 09:20: mouth [address] [place] [address] (two) Medical times Branch daily. levetiracet 2-1 Yes 500mg Take 500 U nivers am (KEPPRA 0-14 mg by ity of ORAL) 09:20: mouth [address] [place] [address] (two) Medical times Branch daily. levetiracet 2-1 Yes 500mg Take 500 U nivers am (KEPPRA 0-14 mg by ity of ORAL) 09:20: mouth [address] [place] [address] (two) Medical times Branch daily. levetiracet 2021-1 Yes 500mg Take 500 U nivers am (KEPPRA 0-14 mg by ity of ORAL) 09:20: mouth [address] [place] [address] (two) Medical times Branch daily. levetiracet 2021- Yes 500mg Take 500 U nivers am (KEPPRA 0-14 mg by ity of ORAL) 09:20: [place] [address] (two) Medical times Branch daily. levetiracet 2021-1 Yes 500mg Take 500 U nivers am (KEPPRA 0-14 mg by ity of ORAL) 09:20: [place] [address] (two) Medical times Branch daily. levetiracet 2021-1 Yes 500mg Take 500 U nivers am (KEPPRA 0-14 mg by ity of ORAL) 09:20: [place] [address] (two) Medical times Branch daily. levetiracet 2021-1 Yes 500mg Take 500 U nivers am (KEPPRA 0-14 mg by ity of ORAL) 09:20: [place] [address] (two) Medical times Branch daily. levetiracet 2021-1 Yes 500mg Take 500 U nivers am (KEPPRA 0-14 mg by ity of ORAL) 09:20: [place] [address] (two) Medical times Branch daily. levetiracet 2-1 Yes 500mg Take 500 U nivers am (KEPPRA 0-14 mg by ity of ORAL) 09:20: mouth [address] [place] [address] (two) Medical times Branch daily. levetiracet 2-1 Yes 500mg Take 500 U nivers am (KEPPRA 0-14 mg by ity of ORAL) 09:20: mouth [address] [place] [address] (two) Medical times Branch daily. levetiracet 2-1 Yes 500mg Take 500 U nivers am (KEPPRA 0-14 mg by ity of ORAL) 09:20: mouth [address] [place] [address] (two) Medical times Branch daily. levetiracet 2-1 Yes 500mg Take 500 U nivers am (KEPPRA 0-14 mg by ity of ORAL) 09:20: mouth [address] [place] [address] (two) Medical times Branch daily. levetiracet 2-1 Yes 500mg Take 500 U nivers am (KEPPRA 0-14 mg by ity of ORAL) 09:20: mouth [address] [place] [address] (two) Medical times Branch daily. levetiracet 2-1 Yes 500mg Take 500 U nivers am (KEPPRA 0-14 mg by ity of ORAL) 09:20: [place] [address] (two) Medical times Branch daily. levetiracet 2-1 Yes 500mg Take 500 U nivers am (KEPPRA 0-14 mg by ity of ORAL) 09:20: mouth [address] [place] [address] (two) Medical times Branch daily. levetiracet 2-1 Yes 500mg Take 500 U nivers am (KEPPRA 0-14 mg by ity of ORAL) 09:20: [place] [address] (two) Medical times Branch daily. levetiracet 2-1 Yes 500mg Take 500 U nivers am (KEPPRA 0-14 mg by ity of ORAL) 09:20: [place] [address] (two) Medical times Branch daily. levetiracet 2-1 Yes 500mg Take 500 U nivers am (KEPPRA 0-14 mg by ity of ORAL) 09:20: mouth [address] [place] [address] (two) Medical times Branch daily. levetiracet 2-1 Yes 500mg Take 500 U nivers am (KEPPRA 0-14 mg by ity of ORAL) 09:20: [place] [address] (two) Medical times Branch daily. levetiracet 2-1 Yes 500mg Take 500 U nivers am (KEPPRA 0-14 mg by ity of ORAL) 09:20: mouth [address] [place] [address] (two) Medical times Branch daily. levetiracet 2-1 Yes 500mg Take 500 U nivers am (KEPPRA 0-14 mg by ity of ORAL) 09:20: mouth [address] [place] [address] (two) Medical times Branch daily. levetiracet 2-1 Yes 500mg Take 500 U nivers am (KEPPRA 0-14 mg by ity of ORAL) 09:20: mouth [address] [place] [address] (two) Medical times Branch daily. levetiracet 2-1 Yes 500mg Take 500 U nivers am (KEPPRA 0-14 mg by ity of ORAL) 09:20: mouth [address] [place] [address] (two) Medical times Branch daily. levetiracet 2-1 Yes 500mg Take 500 U nivers am (KEPPRA 0-14 mg by ity of ORAL) 09:20: mouth [address] [place] [address] (two) Medical times Branch daily. levetiracet 2021-1 Yes 500mg Take 500 U nivers am (KEPPRA 0-14 mg by ity of ORAL) 09:20: [place] [address] (two) Medical times Branch daily. levetiracet 2021-1 Yes 500mg Take 500 U nivers am (KEPPRA 0-14 mg by ity of ORAL) 09:20: [place] [address] (two) Medical times Branch daily. levetiracet 2021-1 Yes 500mg Take 500 U nivers am (KEPPRA 0-14 mg by ity of ORAL) 09:20: [place] [address] (two) Medical times Branch daily. levetiracet 2-1 Yes 500mg Take 500 U nivers am (KEPPRA 0-14 mg by ity of ORAL) 09:20: mouth [address] [place] [address] (two) Medical times Branch daily. levetiracet 2-1 Yes 500mg Take 500 U nivers am (KEPPRA 0-14 mg by ity of ORAL) 09:20: mouth [address] [place] [address] (two) Medical times Branch daily. levetiracet 2-1 Yes 500mg Take 500 U nivers am (KEPPRA 0-14 mg by ity of ORAL) 09:20: [place] [address] (two) Medical times Branch daily. levetiracet 2-1 Yes 500mg Take 500 U nivers am (KEPPRA 0-14 mg by ity of ORAL) 09:20: mouth [address] [place] [address] (two) Medical times Branch daily. levetiracet 2-1 Yes 500mg Take 500 U nivers am (KEPPRA 0-14 mg by ity of ORAL) 09:20: mouth [address] [place] [address] (two) Medical times Branch daily. levetiracet 2-1 Yes 500mg Take 500 U nivers am (KEPPRA 0-14 mg by ity of ORAL) 09:20: mouth [address] [place] [address] (two) Medical times Branch daily. levetiracet 2021-1 Yes 500mg Take 500 U nivers am (KEPPRA 0-14 mg by ity of ORAL) 09:20: mouth [address] [place] [address] (two) Medical times Branch daily. levetiracet 2021-1 Yes 500mg Take 500 U nivers am (KEPPRA 0-14 mg by ity of ORAL) 09:20: [place] [address] (two) Medical times Branch daily. levetiracet 2021-1 Yes 500mg Take 500 U nivers am (KEPPRA 0-14 mg by ity of ORAL) 09:20: mouth [address] [place] [address] (two) Medical times Branch daily. levetiracet 2021-1 Yes 500mg Take 500 U nivers am (KEPPRA 0-14 mg by ity of ORAL) 09:20: [place] [address] (two) Medical times Branch daily. levetiracet 2-1 Yes 500mg Take 500 U nivers am (KEPPRA 0-14 mg by ity of ORAL) 09:20: [place] [address] (two) Medical times Branch daily. levetiracet 2021-1 Yes 500mg Take 500 U nivers am (KEPPRA 0-14 mg by ity of ORAL) 09:20: mouth [address] [place] [address] (two) Medical times Branch daily. levetiracet 2-1 Yes 500mg Take 500 U nivers am (KEPPRA 0-14 mg by ity of ORAL) 09:20: mouth [address] [place] [address] (two) Medical times Branch daily. levetiracet 2-1 Yes 500mg Take 500 U nivers am (KEPPRA 0-14 mg by ity of ORAL) 09:20: mouth [address] [place] [address] (two) Medical times Branch daily. levetiracet 2-1 Yes 500mg Take 500 U nivers am (KEPPRA 0-14 mg by ity of ORAL) 09:20: mouth [address] [place] [address] (two) Medical times Branch daily. levetiracet 2-1 Yes 500mg Take 500 U nivers am (KEPPRA 0-14 mg by ity of ORAL) 09:20: mouth [address] [place] [address] (two) Medical times Branch daily. levetiracet 2-1 Yes 500mg Take 500 U nivers am (KEPPRA 0-14 mg by ity of ORAL) 09:20: mouth [address] [place] [address] (two) Medical times Branch daily. levetiracet 2-1 Yes 500mg Take 500 U nivers am (KEPPRA 0-14 mg by ity of ORAL) 09:20: [place] [address] (two) Medical times Branch daily. levetiracet 2-1 Yes 500mg Take 500 U nivers am (KEPPRA 0-14 mg by ity of ORAL) 09:20: [place] [address] (two) Medical times Branch daily. levetiracet 2-1 Yes 500mg Take 500 U nivers am (KEPPRA 0-14 mg by ity of ORAL) 09:20: [place] [address] (two) Medical times Branch daily. levetiracet 2-1 Yes 500mg Take 500 U nivers am (KEPPRA 0-14 mg by ity of ORAL) 09:20: [place] [address] (two) Medical times Branch daily. levetiracet 2-1 Yes 500mg Take 500 U nivers am (KEPPRA 0-14 mg by ity of ORAL) 09:20: mouth [address] [place] [address] (two) Medical times Branch daily. levetiracet 2-1 Yes 500mg Take 500 U nivers am (KEPPRA 0-14 mg by ity of ORAL) 09:20: mouth [address] [place] [address] (two) Medical times Branch daily. levetiracet 2-1 Yes 500mg Take 500 U nivers am (KEPPRA 0-14 mg by ity of ORAL) 09:20: [place] [address] (two) Medical times Branch daily. levetiracet 2022-1 Yes 500mg Take 500 U nivers am (KEPPRA 0-14 mg by ity of ORAL) 09:20: mouth [address] [place] [address] (two) Medical times Branch daily. levetiracet 2021-1 Yes 500mg Take 500 U nivers am (KEPPRA 0-14 mg by ity of ORAL) 09:20: mouth [address] [place] [address] (two) Medical times Branch daily. levetiracet 2021-1 Yes 500mg Take 500 U nivers am (KEPPRA 0-14 mg by ity of ORAL) 09:20: mouth [address] [place] [address] (two) Medical times Branch daily. levetiracet 2021-1 Yes 500mg Take 500 U nivers am (KEPPRA 0-14 mg by ity of ORAL) 09:20: mouth [address] [place] [address] (two) Medical times Branch daily. levetiracet 2021- Yes 500mg Take 500 U nivers am (KEPPRA 0-14 mg by ity of ORAL) 09:20: [place] [address] (two) Medical times Branch daily. levetiracet 2021- Yes 500mg Take 500 U nivers am (KEPPRA 0-14 mg by ity of ORAL) 09:20: mouth [address] [place] [address] (two) Medical times Branch daily. levetiracet 2021-1 Yes 500mg Take 500 U nivers am (KEPPRA 0-14 mg by ity of ORAL) 09:20: [place] [address] (two) Medical times Branch daily. levetiracet 2021-1 Yes 500mg Take 500 U nivers am (KEPPRA 0-14 mg by ity of ORAL) 09:20: [place] [address] (two) Medical times Branch daily. levetiracet 2021- Yes 500mg Take 500 U nivers am (KEPPRA 0-14 mg by ity of ORAL) 09:20: [place] [address] (two) Medical times Branch daily. levetiracet 2-1 Yes 500mg Take 500 U nivers am (KEPPRA 0-14 mg by ity of ORAL) 09:20: mouth [address] [place] [address] (two) Medical times Branch daily. levetiracet 2-1 Yes 500mg Take 500 U nivers am (KEPPRA 0-14 mg by ity of ORAL) 09:20: mouth [address] [place] [address] (two) Medical times Branch daily. levetiracet 2-1 Yes 500mg Take 500 U nivers am (KEPPRA 0-14 mg by ity of ORAL) 09:20: mouth [address] [place] [address] (two) Medical times Branch daily. levetiracet 2-1 Yes 500mg Take 500 U nivers am (KEPPRA 0-14 mg by ity of ORAL) 09:20: mouth [address] [place] [address] (two) Medical times Branch daily. levetiracet 2-1 Yes 500mg Take 500 U nivers am (KEPPRA 0-14 mg by ity of ORAL) 09:20: mouth [address] [place] [address] (two) Medical times Branch daily. levetiracet 2-1 Yes 500mg Take 500 U nivers am (KEPPRA 0-14 mg by ity of ORAL) 09:20: [place] [address] (two) Medical times Branch daily. levetiracet 2-1 Yes 500mg Take 500 U nivers am (KEPPRA 0-14 mg by ity of ORAL) 09:20: [place] [address] (two) Medical times Branch daily. levetiracet 2-1 Yes 500mg Take 500 U nivers am (KEPPRA 0-14 mg by ity of ORAL) 09:20: [place] [address] (two) Medical times Branch daily. levetiracet 2-1 Yes 500mg Take 500 U nivers am (KEPPRA 0-14 mg by ity of ORAL) 09:20: [place] [address] (two) Medical times Branch daily. levetiracet 2-1 Yes 500mg Take 500 U nivers am (KEPPRA 0-14 mg by ity of ORAL) 09:20: [place] [address] (two) Medical times Branch daily. levetiracet 2-1 Yes 500mg Take 500 U nivers am (KEPPRA 0-14 mg by ity of ORAL) 09:20: [place] [address] (two) Medical times Branch daily. levetiracet 2-1 Yes 500mg Take 500 U nivers am (KEPPRA 0-14 mg by ity of ORAL) 09:20: mouth [address] [place] [address] (two) Medical times Branch daily. levetiracet 2021- Yes 500mg Take 500 U nivers am (KEPPRA 0-14 mg by ity of ORAL) 09:20: mouth 2 [place] [address] (two) Medical times Branch daily. levetiracet 2021-1 Yes 500mg Take 500 U nivers am (KEPPRA 0-14 mg by ity of ORAL) 09:20: mouth 2 [place] [address] (two) Medical times Branch daily. levetiracet 2021- Yes 500mg Take 500 U nivers am (KEPPRA 0-14 mg by ity of ORAL) 09:20: mouth 2 [place] [address] (two) Medical times Branch daily. levetiracet 2021- Yes 500mg Take 500 U nivers am (KEPPRA 0-14 mg by ity of ORAL) 09:20: mouth 2 [place] [address] (two) Medical times Branch daily. levetiracet 2021- Yes 500mg Take 500 U nivers am (KEPPRA 0-14 mg by ity of ORAL) 09:20: mouth [address] [place] [address] (two) Medical times Branch daily. levetiracet 2021- Yes 500mg Take 500 U nivers am (KEPPRA 0-14 mg by ity of ORAL) 09:20: mouth [address] [place] [address] (two) Medical times Branch daily. levetiracet 2021- Yes 500mg Take 500 U nivers am (KEPPRA 0-14 mg by ity of ORAL) 09:20: mouth 2 [place] [address] (two) Medical times Branch daily. levetiracet 2021- Yes 500mg Take 500 U nivers am (KEPPRA 0-14 mg by ity of ORAL) 09:20: mouth 2 [place] [address] (two) Medical times Branch daily. levetiracet 2021- Yes 500mg Take 500 U nivers am (KEPPRA 0-14 mg by ity of ORAL) 09:20: mouth 2 [place] [address] (two) Medical times Branch daily. FLUTICASONE 2021-07 Yes [id number] SHAKE U nivers PROPIONATE 0-12 LIQUID AND ity of 50 00:00: USE 1 [place] mcg/actuati 00 SPRAY IN Medi janet on nasal EACH Branch spray NOSTRIL TWICE DAILY FLUTICASONE 2021-07 Yes [id number] SHAKE U nivers PROPIONATE 0-12 LIQUID AND ity of 50 00:00: USE 1 [place] mcg/actuati 00 SPRAY IN [facility] on nasal EACH Branch spray NOSTRIL TWICE DAILY nadoloL 40 2021-07 Yes [id number] 40mg Take 1 [place] [facility] mg tablet 0-12 tablet by ity o f 00:00: mouth in [place] 00 the Medical morning. Branch FLUTICASONE 2021-07 Yes [id number] SHAKE U nivers PROPIONATE 0-12 LIQUID AND ity of 50 00:00: USE 1 [place] mcg/actuati 00 SPRAY IN [facility] on nasal EACH Branch spray NOSTRIL TWICE DAILY nadoloL 40 2021-07 Yes [id number] 40mg Take 1 [facility] mg tablet 0-12 tablet by ity o f 00:00: mouth in [place] the Medical morning. Branch FLUTICASONE 2021-07 Yes [id number] SHAKE U nivers PROPIONATE 0-12 LIQUID AND ity of 50 00:00: USE 1 [place] mcg/actuati 00 SPRAY IN [facility] on nasal EACH Branch spray NOSTRIL TWICE DAILY nadoloL 40 2021-07 Yes [id number] 40mg Take 1 [facility] mg tablet 0-12 tablet by ity o f 00:00: mouth in [place] the Medical morning. Branch FLUTICASONE 2021-07 Yes [id number] SHAKE U nivers PROPIONATE 0-12 LIQUID AND ity of 50 00:00: USE 1 [place] mcg/actuati 00 SPRAY IN [facility] on nasal EACH Branch spray NOSTRIL TWICE DAILY nadoloL 40 2021-07 Yes [id number] 40mg Take 1 [place] [facility] mg tablet 0-12 tablet by ity o f 00:00: mouth in [place] the Medical morning. Branch FLUTICASONE 2021-07 Yes [id number] SHAKE U nivers PROPIONATE 0-12 LIQUID AND ity of 50 00:00: USE 1 [place] mcg/actuati 00 SPRAY IN [facility] on nasal EACH Branch spray NOSTRIL TWICE DAILY nadoloL 40 2021-07 Yes [id number] 40mg Take 1 [facility] mg tablet 0-12 tablet by ity o f 00:00: mouth in [place] 00 the Medical morning. Branch FLUTICASONE 2021-07 Yes [id number] SHAKE U nivers PROPIONATE 0-12 LIQUID AND ity of 50 00:00: USE 1 [place] mcg/actuati 00 SPRAY IN [facility] on nasal EACH Branch spray NOSTRIL TWICE DAILY nadoloL 40 2021-07 Yes [id number] 40mg Take 1 [facility] mg tablet 0-12 tablet by ity o f 00:00: mouth in [place] the Medical morning. Branch FLUTICASONE 2021-07 Yes [id number] SHAKE U nivers PROPIONATE 0-12 LIQUID AND ity of 50 00:00: USE 1 [place] mcg/actuati 00 SPRAY IN [facility] on nasal EACH Branch spray NOSTRIL TWICE DAILY nadoloL 40 2021-07 Yes [id number] 40mg Take 1 [facility] mg tablet 0-12 tablet by ity o f 00:00: mouth in [place] the Medical morning. Branch FLUTICASONE 2021-07 Yes [id number] SHAKE U nivers PROPIONATE 0-12 LIQUID AND ity of 50 00:00: USE 1 [place] mcg/actuati 00 SPRAY IN [facility] on nasal EACH Branch spray NOSTRIL TWICE DAILY nadoloL 40 2021-07 Yes [id number] 40mg Take 1 [facility] mg tablet 0-12 tablet by ity o f 00:00: mouth in [place] the Medical morning. Branch FLUTICASONE 2021-07 Yes [id number] SHAKE U nivers PROPIONATE 0-12 LIQUID AND ity of 50 00:00: USE 1 [place] mcg/actuati 00 SPRAY IN [facility] on nasal EACH Branch spray NOSTRIL TWICE DAILY nadoloL 40 2021-07 Yes [id number] 40mg Take 1 [facility] mg tablet 0-12 tablet by ity o f 00:00: mouth in [place] the Medical morning. Branch FLUTICASONE 2021-07 Yes [id number] SHAKE U nivers PROPIONATE 0-12 LIQUID AND ity of 50 00:00: USE 1 [place] mcg/actuati 00 SPRAY IN [facility] on nasal EACH Branch spray NOSTRIL TWICE DAILY nadoloL 40 2021-07 Yes [id number] 40mg Take 1 [facility] mg tablet 0-12 tablet by ity o f 00:00: mouth in [place] the Medical morning. Branch FLUTICASONE 2021-07 Yes [id number] SHAKE U nivers PROPIONATE 0-12 LIQUID AND ity of 50 00:00: USE 1 [place] mcg/actuati 00 SPRAY IN [facility] on nasal EACH Branch spray NOSTRIL TWICE DAILY nadoloL 40 2021-07 Yes [id number] 40mg Take 1 [facility] mg tablet 0-12 tablet by ity o f 00:00: mouth in [place] the Medical morning. Branch FLUTICASONE 2021-07 Yes [id number] SHAKE U nivers PROPIONATE 0-12 LIQUID AND ity of 50 00:00: USE 1 [place] mcg/actuati 00 SPRAY IN [facility] on nasal EACH Branch spray NOSTRIL TWICE DAILY nadoloL 40 2021-07 Yes [id number] 40mg Take 1 [facility] mg tablet 0-12 tablet by ity o f 00:00: mouth in [place] the Medical morning. Branch FLUTICASONE 2021-07 Yes [id number] SHAKE U nivers PROPIONATE 0-12 LIQUID AND ity of 50 00:00: USE 1 [place] mcg/actuati 00 SPRAY IN [facility] on nasal EACH Branch spray NOSTRIL TWICE DAILY nadoloL 40 2021-07 Yes [id number] 40mg Take 1 [facility] mg tablet 0-12 tablet by ity o f 00:00: mouth in [place] the Medical morning. Branch FLUTICASONE 2021-07 Yes [id number] SHAKE U nivers PROPIONATE 0-12 LIQUID AND ity of 50 00:00: USE 1 [place] mcg/actuati 00 SPRAY IN [facility] on nasal EACH Branch spray NOSTRIL TWICE DAILY nadoloL 40 2021-07 Yes [id number] 40mg Take 1 [facility] mg tablet 0-12 tablet by ity o f 00:00: mouth in [place] the Medical morning. Branch FLUTICASONE 2021-07 Yes [id number] SHAKE U nivers PROPIONATE 0-12 LIQUID AND ity of 50 00:00: USE 1 [place] mcg/actuati 00 SPRAY IN [facility] janet on nasal EACH Branch spray NOSTRIL TWICE DAILY nadoloL 40 2021-07 Yes [id number] 40mg Take 1 [facility] mg tablet 0-12 tablet by ity o f 00:00: mouth in [place] the Medical morning. Branch FLUTICASONE 2021-07 Yes [id number] SHAKE U nivers PROPIONATE 0-12 LIQUID AND ity of 50 00:00: USE 1 [place] mcg/actuati 00 SPRAY IN [facility] on nasal EACH Branch spray NOSTRIL TWICE DAILY nadoloL 40 2021-07 Yes [id number] 40mg Take 1 [facility] mg tablet 0-12 tablet by ity o f 00:00: mouth in [place] the Medical morning. Branch FLUTICASONE 2021-07 Yes [id number] SHAKE U nivers PROPIONATE 0-12 LIQUID AND ity of 50 00:00: USE 1 [place] mcg/actuati 00 SPRAY IN [facility]i [facility] on nasal EACH Branch spray NOSTRIL TWICE DAILY nadoloL 40 2021-07 Yes [id number] 40mg Take 1 [facility] mg tablet 0-12 tablet by ity o f 00:00: mouth in [place] 00 the Medical morning. Branch FLUTICASONE 2021-07 Yes [id number] SHAKE U nivers PROPIONATE 0-12 LIQUID AND ity of 50 00:00: USE 1 [place] mcg/actuati 00 SPRAY IN Medi janet on nasal EACH Branch spray NOSTRIL TWICE DAILY nadoloL 40 2021-07 Yes [id number] 40mg Take 1 [facility] mg tablet 0-12 tablet by ity o f 00:00: mouth in [place] the Medical morning. Branch FLUTICASONE 2021-07 Yes [id number] SHAKE U nivers PROPIONATE 0-12 LIQUID AND ity of 50 00:00: USE 1 [place] mcg/actuati 00 SPRAY IN [facility] janet on nasal EACH Branch spray NOSTRIL TWICE DAILY nadoloL 40 2021-07 Yes [id number] 40mg Take 1 [facility] mg tablet 0-12 tablet by ity o f 00:00: mouth in [place] the Medical morning. Branch FLUTICASONE 2021-07 Yes [id number] SHAKE U nivers PROPIONATE 0-12 LIQUID AND ity of 50 00:00: USE 1 [place] mcg/actuati 00 SPRAY IN [facility] jan[facility] on nasal EACH Branch spray NOSTRIL TWICE DAILY nadoloL 40 2021-07 Yes [id number] 40mg Take 1 [facility] mg tablet 0-12 tablet by ity o f 00:00: mouth in [place] the Medical morning. Branch FLUTICASONE 2021-07 Yes [id number] SHAKE U nivers PROPIONATE 0-12 LIQUID AND ity of 50 00:00: USE 1 [place] mcg/actuati 00 SPRAY IN [facility] jan[facility] on nasal EACH Branch spray NOSTRIL TWICE DAILY nadoloL 40 2021-07 Yes [id number] 40mg Take 1 [facility] mg tablet 0-12 tablet by ity o f 00:00: mouth in [place] 00 the Medical morning. Branch FLUTICASONE 2021-07 Yes [id number] SHAKE U nivers PROPIONATE 0-12 LIQUID AND ity of 50 00:00: USE 1 [place] mcg/actuati 00 SPRAY IN [facility] on nasal EACH Branch spray NOSTRIL TWICE DAILY nadoloL 40 2021-07 Yes [id number] 40mg Take 1 [facility] mg tablet 0-12 tablet by ity o f 00:00: mouth in [place] 00 the Medical morning. Branch FLUTICASONE 2021-07 Yes [id number] SHAKE U nivers PROPIONATE 0-12 LIQUID AND ity of 50 00:00: USE 1 [place] mcg/actuati 00 SPRAY IN [facility] on nasal EACH Branch spray NOSTRIL TWICE DAILY nadoloL 40 2021-07 Yes [id number] 40mg Take 1 [facility] mg tablet 0-12 tablet by ity o f 00:00: mouth in [place] the Medical morning. Branch FLUTICASONE 2021-07 Yes [id number] SHAKE U nivers PROPIONATE 0-12 LIQUID AND ity of 50 00:00: USE 1 [place] mcg/actuati 00 SPRAY IN [facility] on nasal EACH Branch spray NOSTRIL TWICE DAILY nadoloL 40 2021-07 Yes [id number] 40mg Take 1 [facility] mg tablet 0-12 tablet by ity o f 00:00: mouth in [place] the Medical morning. Branch FLUTICASONE 2021-07 Yes [id number] SHAKE U nivers PROPIONATE 0-12 LIQUID AND ity of 50 00:00: USE 1 [place] mcg/actuati 00 SPRAY IN [facility] on nasal EACH Branch spray NOSTRIL TWICE DAILY nadoloL 40 2021-07 Yes [id number] 40mg Take 1 [facility] mg tablet 0-12 tablet by ity o f 00:00: mouth in [place] the Medical morning. Branch FLUTICASONE 2021-07 Yes [id number] SHAKE U nivers PROPIONATE 0-12 LIQUID AND ity of 50 00:00: USE 1 [place] mcg/actuati 00 SPRAY IN [facility] on nasal EACH Branch spray NOSTRIL TWICE DAILY nadoloL 40 2021-07 Yes [id number] 40mg Take 1 [facility] mg tablet 0-12 tablet by ity o f 00:00: mouth in [place] 00 the Medical morning. Branch FLUTICASONE 2021-07 Yes [id number] SHAKE U nivers PROPIONATE 0-12 LIQUID AND ity of 50 00:00: USE 1 [place] mcg/actuati 00 SPRAY IN [facility] on nasal EACH Branch spray NOSTRIL TWICE DAILY nadoloL 40 2021-07 Yes [id number] 40mg Take 1 [facility] mg tablet 0-12 tablet by ity o f 00:00: mouth in [place] 00 the Medical morning. Branch FLUTICASONE 2021-07 Yes [id number] SHAKE U nivers PROPIONATE 0-12 LIQUID AND ity of 50 00:00: USE 1 [place] mcg/actuati 00 SPRAY IN [facility] on nasal EACH Branch spray NOSTRIL TWICE DAILY nadoloL 40 2021-07 Yes [id number] 40mg Take 1 [facility] mg tablet 0-12 tablet by ity o f 00:00: mouth in [place] the Medical morning. Branch FLUTICASONE 2021-07 Yes [id number] SHAKE U nivers PROPIONATE 0-12 LIQUID AND ity of 50 00:00: USE 1 [place] mcg/actuati 00 SPRAY IN [facility] on nasal EACH Branch spray NOSTRIL TWICE DAILY nadoloL 40 2021-07 Yes [id number] 40mg Take 1 [facility] mg tablet 0-12 tablet by ity o f 00:00: mouth in [place] the Medical morning. Branch FLUTICASONE 2021-07 Yes [id number] SHAKE U nivers PROPIONATE 0-12 LIQUID AND ity of 50 00:00: USE 1 [place] mcg/actuati 00 SPRAY IN [facility] on nasal EACH Branch spray NOSTRIL TWICE DAILY nadoloL 40 2021-07 Yes [id number] 40mg Take 1 [facility] mg tablet 0-12 tablet by ity o f 00:00: mouth in [place] the Medical morning. Branch FLUTICASONE 2021-07 Yes [id number] SHAKE U nivers PROPIONATE 0-12 LIQUID AND ity of 50 00:00: USE 1 [place] mcg/actuati 00 SPRAY IN [facility] on nasal EACH Branch spray NOSTRIL TWICE DAILY nadoloL 40 2021-07 Yes [id number] 40mg Take 1 [facility] mg tablet 0-12 tablet by ity o f 00:00: mouth in [place] 00 the Medical morning. Branch FLUTICASONE 2021-07 Yes [id number] SHAKE U nivers PROPIONATE 0-12 LIQUID AND ity of 50 00:00: USE 1 [place] mcg/actuati 00 SPRAY IN [facility] on nasal EACH Branch spray NOSTRIL TWICE DAILY nadoloL 40 2021-07 Yes [id number] 40mg Take 1 [facility] mg tablet 0-12 tablet by ity o f 00:00: mouth in [place] 00 the Medical morning. Branch FLUTICASONE 2021-07 Yes [id number] SHAKE U nivers PROPIONATE 0-12 LIQUID AND ity of 50 00:00: USE 1 [place] mcg/actuati 00 SPRAY IN [facility] on nasal EACH Branch spray NOSTRIL TWICE DAILY nadoloL 40 2021-07 Yes [id number] 40mg Take 1 [facility] mg tablet 0-12 tablet by ity o f 00:00: mouth in [place] the Medical morning. Branch FLUTICASONE 2021-07 Yes [id number] SHAKE U nivers PROPIONATE 0-12 LIQUID AND ity of 50 00:00: USE 1 [place] mcg/actuati 00 SPRAY IN [facility] on nasal EACH Branch spray NOSTRIL TWICE DAILY nadoloL 40 2021-07 Yes [id number] 40mg Take 1 [place] mg tablet 0-12 tablet by ity o f 00:00: mouth in [place] the Medical morning. Branch FLUTICASONE 2021-07 Yes [id number] SHAKE U nivers PROPIONATE 0-12 LIQUID AND ity of 50 00:00: USE 1 [place] mcg/actuati 00 SPRAY IN [facility] on nasal EACH Branch spray NOSTRIL TWICE DAILY nadoloL 40 2021-07 Yes [id number] 40mg Take 1 [place] [facility] mg tablet 0-12 tablet by ity o f 00:00: mouth in [place] the Medical morning. Branch FLUTICASONE 2021-07 Yes [id number] SHAKE U nivers PROPIONATE 0-12 LIQUID AND ity of 50 00:00: USE 1 [place] mcg/actuati 00 SPRAY IN [facility] on nasal EACH Branch spray NOSTRIL TWICE DAILY nadoloL 40 2021-07 Yes [id number] 40mg Take 1 [place] [facility] mg tablet 0-12 tablet by ity o f 00:00: mouth in [place] the Medical morning. Branch FLUTICASONE 2021-07 Yes [id number] SHAKE U nivers PROPIONATE 0-12 LIQUID AND ity of 50 00:00: USE 1 [place] mcg/actuati 00 SPRAY IN [facility] on nasal EACH Branch spray NOSTRIL TWICE DAILY nadoloL 40 2021-07 Yes [id number] 40mg Take 1 [facility] mg tablet 0-12 tablet by ity o f 00:00: mouth in [place] the Medical morning. Branch FLUTICASONE 2021-07 Yes [id number] SHAKE U nivers PROPIONATE 0-12 LIQUID AND ity of 50 00:00: USE 1 [place] mcg/actuati 00 SPRAY IN [facility] on nasal EACH Branch spray NOSTRIL TWICE DAILY nadoloL 40 2021-07 Yes [id number] 40mg Take 1 [facility] mg tablet 0-12 tablet by ity o f 00:00: mouth in [place] the Medical morning. Branch FLUTICASONE 2021-07 Yes [id number] SHAKE U nivers PROPIONATE 0-12 LIQUID AND ity of 50 00:00: USE 1 [place] mcg/actuati 00 SPRAY IN [facility] on nasal EACH Branch spray NOSTRIL TWICE DAILY nadoloL 40 2021-07 Yes [id number] 40mg Take 1 [facility] mg tablet 0-12 tablet by ity o f 00:00: mouth in [place] the Medical morning. Branch FLUTICASONE 2021-07 Yes [id number] SHAKE U nivers PROPIONATE 0-12 LIQUID AND ity of 50 00:00: USE 1 [place] mcg/actuati 00 SPRAY IN [facility] on nasal EACH Branch spray NOSTRIL TWICE DAILY nadoloL 40 2021-07 Yes [id number] 40mg Take 1 [facility] mg tablet 0-12 tablet by ity o f 00:00: mouth in [place] the Medical morning. Branch FLUTICASONE 2021-07 Yes [id number] SHAKE U nivers PROPIONATE 0-12 LIQUID AND ity of 50 00:00: USE 1 [place] mcg/actuati 00 SPRAY IN [facility] on nasal EACH Branch spray NOSTRIL TWICE DAILY nadoloL 40 2021-07 Yes [id number] 40mg Take 1 [place] [facility] mg tablet 0-12 tablet by ity o f 00:00: mouth in [place] the Medical morning. Branch FLUTICASONE 2021-07 Yes [id number] SHAKE U nivers PROPIONATE 0-12 LIQUID AND ity of 50 00:00: USE 1 [place] mcg/actuati 00 SPRAY IN [facility] on nasal EACH Branch spray NOSTRIL TWICE DAILY nadoloL 40 2021-07 Yes [id number] 40mg Take 1 [facility] mg tablet 0-12 tablet by ity o f 00:00: mouth in [place] 00 the Medical morning. Branch FLUTICASONE 2021-07 Yes [id number] SHAKE U nivers PROPIONATE 0-12 LIQUID AND ity of 50 00:00: USE 1 [place] mcg/actuati 00 SPRAY IN [facility] on nasal EACH Branch spray NOSTRIL TWICE DAILY nadoloL 40 2021-07 Yes [id number] 40mg Take 1 [facility] mg tablet 0-12 tablet by ity o f 00:00: mouth in [place] the Medical morning. Branch FLUTICASONE 2021-07 Yes [id number] SHAKE U nivers PROPIONATE 0-12 LIQUID AND ity of 50 00:00: USE 1 [place] mcg/actuati 00 SPRAY IN [facility] janet on nasal EACH Branch spray NOSTRIL TWICE DAILY nadoloL 40 2021-07 Yes [id number] 40mg Take 1 [facility] mg tablet 0-12 tablet by ity o f 00:00: mouth in [place] the Medical morning. Branch FLUTICASONE 2021-07 Yes [id number] SHAKE U nivers PROPIONATE 0-12 LIQUID AND ity of 50 00:00: USE 1 [place] mcg/actuati 00 SPRAY IN [facility] on nasal EACH Branch spray NOSTRIL TWICE DAILY nadoloL 40 2021-07 Yes [id number] 40mg Take 1 [facility] mg tablet 0-12 tablet by ity o f 00:00: mouth in [place] the Medical morning. Branch FLUTICASONE 2021-07 Yes [id number] SHAKE U nivers PROPIONATE 0-12 LIQUID AND ity of 50 00:00: USE 1 [place] mcg/actuati 00 SPRAY IN [facility] janet on nasal EACH Branch spray NOSTRIL TWICE DAILY nadoloL 40 2021-07 Yes [id number] 40mg Take 1 [facility] mg tablet 0-12 tablet by ity o f 00:00: mouth in [place] the Medical morning. Branch FLUTICASONE 2021-07 Yes [id number] SHAKE U nivers PROPIONATE 0-12 LIQUID AND ity of 50 00:00: USE 1 [place] mcg/actuati 00 SPRAY IN [facility] janet on nasal EACH Branch spray NOSTRIL TWICE DAILY nadoloL 40 2021-07 Yes [id number] 40mg Take 1 [facility] mg tablet 0-12 tablet by ity o f 00:00: mouth in [place] the Medical morning. Branch FLUTICASONE 2021-07 Yes [id number] SHAKE U nivers PROPIONATE 0-12 LIQUID AND ity of 50 00:00: USE 1 [place] mcg/actuati 00 SPRAY IN [facility] on nasal EACH Branch spray NOSTRIL TWICE DAILY nadoloL 40 2021-07 Yes [id number] 40mg Take 1 [facility] mg tablet 0-12 tablet by ity o f 00:00: mouth in [place] the Medical morning. Branch FLUTICASONE 2021-07 Yes [id number] SHAKE U nivers PROPIONATE 0-12 LIQUID AND ity of 50 00:00: USE 1 [place] mcg/actuati 00 SPRAY IN [facility] on nasal EACH Branch spray NOSTRIL TWICE DAILY nadoloL 40 2021-07 Yes [id number] 40mg Take 1 [facility] mg tablet 0-12 tablet by ity o f 00:00: mouth in [place] the Medical morning. Branch FLUTICASONE 2021-07 Yes [id number] SHAKE U nivers PROPIONATE 0-12 LIQUID AND ity of 50 00:00: USE 1 [place] mcg/actuati 00 SPRAY IN [facility] on nasal EACH Branch spray NOSTRIL TWICE DAILY nadoloL 40 2021-07 Yes [id number] 40mg Take 1 [facility] mg tablet 0-12 tablet by ity o f 00:00: mouth in [place] the Medical morning. Branch FLUTICASONE 2021-07 Yes [id number] SHAKE U nivers PROPIONATE 0-12 LIQUID AND ity of 50 00:00: USE 1 [place] mcg/actuati 00 SPRAY IN [facility] janet on nasal EACH Branch spray NOSTRIL TWICE DAILY nadoloL 40 2021-07 Yes [id number] 40mg Take 1 [place] [facility] mg tablet 0-12 tablet by ity o f 00:00: mouth in [place] the Medical morning. Branch FLUTICASONE 2021-07 Yes [id number] SHAKE U nivers PROPIONATE 0-12 LIQUID AND ity of 50 00:00: USE 1 [place] mcg/actuati 00 SPRAY IN [facility] on nasal EACH Branch spray NOSTRIL TWICE DAILY nadoloL 40 2021-07 Yes [id number] 40mg Take 1 [facility] mg tablet 0-12 tablet by ity o f 00:00: mouth in [place] 00 the Medical morning. Branch FLUTICASONE 2021-07 Yes [id number] SHAKE U nivers PROPIONATE 0-12 LIQUID AND ity of 50 00:00: USE 1 [place] mcg/actuati 00 SPRAY IN [facility] on nasal EACH Branch spray NOSTRIL TWICE DAILY nadoloL 40 2021-07 Yes [id number] 40mg Take 1 [facility] mg tablet 0-12 tablet by ity o f 00:00: mouth in [place] 00 the Medical morning. Branch FLUTICASONE 2021-07 Yes [id number] SHAKE U nivers PROPIONATE 0-12 LIQUID AND ity of 50 00:00: USE 1 [place] mcg/actuati 00 SPRAY IN [facility] on nasal EACH Branch spray NOSTRIL TWICE DAILY nadoloL 40 2021-07 Yes [id number] 40mg Take 1 [facility] mg tablet 0-12 tablet by ity o f 00:00: mouth in [place] the Medical morning. Branch FLUTICASONE 2021-07 Yes [id number] SHAKE U nivers PROPIONATE 0-12 LIQUID AND ity of 50 00:00: USE 1 [place] mcg/actuati 00 SPRAY IN [facility] on nasal EACH Branch spray NOSTRIL TWICE DAILY nadoloL 40 2021-07 Yes [id number] 40mg Take 1 [facility] mg tablet 0-12 tablet by ity o f 00:00: mouth in [place] the Medical morning. Branch FLUTICASONE 2021-07 Yes [id number] SHAKE U nivers PROPIONATE 0-12 LIQUID AND ity of 50 00:00: USE 1 [place] mcg/actuati 00 SPRAY IN [facility] on nasal EACH Branch spray NOSTRIL TWICE DAILY nadoloL 40 2021-07 Yes [id number] 40mg Take 1 [facility] mg tablet 0-12 tablet by ity o f 00:00: mouth in [place] the Medical morning. Branch FLUTICASONE 2021-07 Yes [id number] SHAKE U nivers PROPIONATE 0-12 LIQUID AND ity of 50 00:00: USE 1 [place] mcg/actuati 00 SPRAY IN [facility] on nasal EACH Branch spray NOSTRIL TWICE DAILY nadoloL 40 2021-07 Yes [id number] 40mg Take 1 [facility] mg tablet 0-12 tablet by ity o f 00:00: mouth in [place] 00 the Medical morning. Branch FLUTICASONE 2021-07 Yes [id number] SHAKE U nivers PROPIONATE 0-12 LIQUID AND ity of 50 00:00: USE 1 [place] mcg/actuati 00 SPRAY IN [facility] on nasal EACH Branch spray NOSTRIL TWICE DAILY nadoloL 40 2021-07 Yes [id number] 40mg Take 1 [facility] mg tablet 0-12 tablet by ity o f 00:00: mouth in [place] the Medical morning. Branch FLUTICASONE 2021-07 Yes [id number] SHAKE U nivers PROPIONATE 0-12 LIQUID AND ity of 50 00:00: USE 1 [place] mcg/actuati 00 SPRAY IN [facility] on nasal EACH Branch spray NOSTRIL TWICE DAILY nadoloL 40 2021-07 Yes [id number] 40mg Take 1 [facility] mg tablet 0-12 tablet by ity o f 00:00: mouth in [place] the Medical morning. Branch FLUTICASONE 2021-07 Yes [id number] SHAKE U nivers PROPIONATE 0-12 LIQUID AND ity of 50 00:00: USE 1 [place] mcg/actuati 00 SPRAY IN [facility] on nasal EACH Branch spray NOSTRIL TWICE DAILY nadoloL 40 2021-07 Yes [id number] 40mg Take 1 [facility] mg tablet 0-12 tablet by ity o f 00:00: mouth in [place] the Medical morning. Branch FLUTICASONE 2021-07 Yes [id number] SHAKE U nivers PROPIONATE 0-12 LIQUID AND ity of 50 00:00: USE 1 [place] mcg/actuati 00 SPRAY IN [facility] on nasal EACH Branch spray NOSTRIL TWICE DAILY nadoloL 40 2021-07 Yes [id number] 40mg Take 1 [facility] mg tablet 0-12 tablet by ity o f 00:00: mouth in [place] the Medical morning. Branch FLUTICASONE 2021-07 Yes [id number] SHAKE U nivers PROPIONATE 0-12 LIQUID AND ity of 50 00:00: USE 1 [place] mcg/actuati 00 SPRAY IN [facility] on nasal EACH Branch spray NOSTRIL TWICE DAILY nadoloL 40 2021-07 Yes [id number] 40mg Take 1 [facility] mg tablet 0-12 tablet by ity o f 00:00: mouth in [place] the Medical morning. Branch FLUTICASONE 2021-07 Yes [id number] SHAKE U nivers PROPIONATE 0-12 LIQUID AND ity of 50 00:00: USE 1 [place] mcg/actuati 00 SPRAY IN [facility] on nasal EACH Branch spray NOSTRIL TWICE DAILY nadoloL 40 2021-07 Yes [id number] 40mg Take 1 [facility] mg tablet 0-12 tablet by ity o f 00:00: mouth in [place] the Medical morning. Branch FLUTICASONE 2021-07 Yes [id number] SHAKE U nivers PROPIONATE 0-12 LIQUID AND ity of 50 00:00: USE 1 [place] mcg/actuati 00 SPRAY IN [facility] on nasal EACH Branch spray NOSTRIL TWICE DAILY nadoloL 40 2021-07 Yes [id number] 40mg Take 1 [facility] mg tablet 0-12 tablet by ity o f 00:00: mouth in [place] the Medical morning. Branch FLUTICASONE 2021-07 Yes [id number] SHAKE U nivers PROPIONATE 0-12 LIQUID AND ity of 50 00:00: USE 1 [place] mcg/actuati 00 SPRAY IN [facility] on nasal EACH Branch spray NOSTRIL TWICE DAILY nadoloL 40 2021-07 Yes [id number] 40mg Take 1 [place] [facility] mg tablet 0-12 tablet by ity o f 00:00: mouth in [place] the Medical morning. Branch FLUTICASONE 2021-07 Yes [id number] SHAKE U nivers PROPIONATE 0-12 LIQUID AND ity of 50 00:00: USE 1 [place] mcg/actuati 00 SPRAY IN [facility] on nasal EACH Branch spray NOSTRIL TWICE DAILY nadoloL 40 2021-07 Yes [id number] 40mg Take 1 [place] [facility] mg tablet 0-12 tablet by ity o f 00:00: mouth in [place] the Medical morning. Branch FLUTICASONE 2021-07 Yes [id number] SHAKE U nivers PROPIONATE 0-12 LIQUID AND ity of 50 00:00: USE 1 [place] mcg/actuati 00 SPRAY IN [facility] janet on nasal EACH Branch spray NOSTRIL TWICE DAILY nadoloL 40 2021-07 Yes [id number] 40mg Take 1 [facility] mg tablet 0-12 tablet by ity o f 00:00: mouth in [place] the Medical morning. Branch FLUTICASONE 2021-07 Yes [id number] SHAKE U nivers PROPIONATE 0-12 LIQUID AND ity of 50 00:00: USE 1 [place] mcg/actuati 00 SPRAY IN [facility] on nasal EACH Branch spray NOSTRIL TWICE DAILY nadoloL 40 2021-07 Yes [id number] 40mg Take 1 [facility] mg tablet 0-12 tablet by ity o f 00:00: mouth in [place] the Medical morning. Branch FLUTICASONE 2021-07 Yes [id number] SHAKE U nivers PROPIONATE 0-12 LIQUID AND ity of 50 00:00: USE 1 [place] mcg/actuati 00 SPRAY IN [facility] on nasal EACH Branch spray NOSTRIL TWICE DAILY nadoloL 40 2021-07 Yes [id number] 40mg Take 1 [facility] mg tablet 0-12 tablet by ity o f 00:00: mouth in [place] the Medical morning. Branch FLUTICASONE 2021-07 Yes [id number] SHAKE U nivers PROPIONATE 0-12 LIQUID AND ity of 50 00:00: USE 1 [place] mcg/actuati 00 SPRAY IN [facility] on nasal EACH Branch spray NOSTRIL TWICE DAILY nadoloL 40 2021-07 Yes [id number] 40mg Take 1 [facility] mg tablet 0-12 tablet by ity o f 00:00: mouth in [place] the Medical morning. Branch FLUTICASONE 2021-07 Yes [id number] SHAKE U nivers PROPIONATE 0-12 LIQUID AND ity of 50 00:00: USE 1 [place] mcg/actuati 00 SPRAY IN [facility] janet on nasal EACH Branch spray NOSTRIL TWICE DAILY nadoloL 40 2021-07 Yes [id number] 40mg Take 1 [facility] mg tablet 0-12 tablet by ity o f 00:00: mouth in [place] the Medical morning. Branch FLUTICASONE 2021-07 Yes [id number] SHAKE U nivers PROPIONATE 0-12 LIQUID AND ity of 50 00:00: USE 1 [place] mcg/actuati 00 SPRAY IN [facility] on nasal EACH Branch spray NOSTRIL TWICE DAILY nadoloL 40 2021-07 Yes [id number] 40mg Take 1 [facility] mg tablet 0-12 tablet by ity o f 00:00: mouth in [place] the Medical morning. Branch FLUTICASONE 2021-07 Yes [id number] SHAKE U nivers PROPIONATE 0-12 LIQUID AND ity of 50 00:00: USE 1 [place] mcg/actuati 00 SPRAY IN [facility] on nasal EACH Branch spray NOSTRIL TWICE DAILY nadoloL 40 2021-07 Yes [id number] 40mg Take 1 [facility] mg tablet 0-12 tablet by ity o f 00:00: mouth in [place] the Medical morning. Branch FLUTICASONE 2021-07 Yes [id number] SHAKE U nivers PROPIONATE 0-12 LIQUID AND ity of 50 00:00: USE 1 [place] mcg/actuati 00 SPRAY IN [facility] on nasal EACH Branch spray NOSTRIL TWICE DAILY nadoloL 40 2021-07 Yes [id number] 40mg Take 1 [facility] mg tablet 0-12 tablet by ity o f 00:00: mouth in [place] 00 the Medical morning. Branch FLUTICASONE 2021-07 Yes [id number] SHAKE U nivers PROPIONATE 0-12 LIQUID AND ity of 50 00:00: USE 1 [place] mcg/actuati 00 SPRAY IN [facility] on nasal EACH Branch spray NOSTRIL TWICE DAILY nadoloL 40 2021-07 Yes [id number] 40mg Take 1 [facility] mg tablet 0-12 tablet by ity o f 00:00: mouth in [place] the Medical morning. Branch FLUTICASONE 2021-07 Yes [id number] SHAKE U nivers PROPIONATE 0-12 LIQUID AND ity of 50 00:00: USE 1 [place] mcg/actuati 00 SPRAY IN [facility] on nasal EACH Branch spray NOSTRIL TWICE DAILY nadoloL 40 2021-07 Yes [id number] 40mg Take 1 [facility] mg tablet 0-12 tablet by ity o f 00:00: mouth in [place] the Medical morning. Branch FLUTICASONE 2021-07 Yes [id number] SHAKE U nivers PROPIONATE 0-12 LIQUID AND ity of 50 00:00: USE 1 [place] mcg/actuati 00 SPRAY IN [facility] on nasal EACH Branch spray NOSTRIL TWICE DAILY nadoloL 40 2021-07 Yes [id number] 40mg Take 1 [facility] mg tablet 0-12 tablet by ity o f 00:00: mouth in [place] the Medical morning. Branch FLUTICASONE 2021-07 Yes [id number] SHAKE U nivers PROPIONATE 0-12 LIQUID AND ity of 50 00:00: USE 1 [place] mcg/actuati 00 SPRAY IN [facility] on nasal EACH Branch spray NOSTRIL TWICE DAILY nadoloL 40 2021-07 Yes [id number] 40mg Take 1 [facility] mg tablet 0-12 tablet by ity o f 00:00: mouth in [place] 00 the Medical morning. Branch FLUTICASONE 2021-07 Yes [id number] SHAKE U nivers PROPIONATE 0-12 LIQUID AND ity of 50 00:00: USE 1 [place] mcg/actuati 00 SPRAY IN [facility] on nasal EACH Branch spray NOSTRIL TWICE DAILY nadoloL 40 2021-07 Yes [id number] 40mg Take 1 [facility] mg tablet 0-12 tablet by ity o f 00:00: mouth in [place] the Medical morning. Branch FLUTICASONE 2021-07 Yes [id number] SHAKE U nivers PROPIONATE 0-12 LIQUID AND ity of 50 00:00: USE 1 [place] mcg/actuati 00 SPRAY IN [facility] on nasal EACH Branch spray NOSTRIL TWICE DAILY nadoloL 40 2021-07 Yes [id number] 40mg Take 1 [facility] mg tablet 0-12 tablet by ity o f 00:00: mouth in [place] the Medical morning. Branch FLUTICASONE 2021-07 Yes [id number] SHAKE U nivers PROPIONATE 0-12 LIQUID AND ity of 50 00:00: USE 1 [place] mcg/actuati 00 SPRAY IN [facility] on nasal EACH Branch spray NOSTRIL TWICE DAILY nadoloL 40 2021-07 Yes [id number] 40mg Take 1 [facility] mg tablet 0-12 tablet by ity o f 00:00: mouth in [place] the Medical morning. Branch FLUTICASONE 2021-07 Yes [id number] SHAKE U nivers PROPIONATE 0-12 LIQUID AND ity of 50 00:00: USE 1 [place] mcg/actuati 00 SPRAY IN [facility] on nasal EACH Branch spray NOSTRIL TWICE DAILY nadoloL 40 2021-07 Yes [id number] 40mg Take 1 [facility] mg tablet 0-12 tablet by ity o f 00:00: mouth in [place] the Medical morning. Branch FLUTICASONE 2021-07 Yes [id number] SHAKE U nivers PROPIONATE 0-12 LIQUID AND ity of 50 00:00: USE 1 [place] mcg/actuati 00 SPRAY IN [facility] on nasal EACH Branch spray NOSTRIL TWICE DAILY nadoloL 40 2021-07 Yes [id number] 40mg Take 1 [facility] mg tablet 0-12 tablet by ity o f 00:00: mouth in [place] the Medical morning. Branch FLUTICASONE 2021-07 Yes [id number] SHAKE U nivers PROPIONATE 0-12 LIQUID AND ity of 50 00:00: USE 1 [place] mcg/actuati 00 SPRAY IN [facility] on nasal EACH Branch spray NOSTRIL TWICE DAILY nadoloL 40 2021-07 Yes [id number] 40mg Take 1 [facility] mg tablet 0-12 tablet by ity o f 00:00: mouth in [place] the Medical morning. Branch FLUTICASONE 2021-07 Yes [id number] SHAKE U nivers PROPIONATE 0-12 LIQUID AND ity of 50 00:00: USE 1 [place] mcg/actuati 00 SPRAY IN [facility] on nasal EACH Branch spray NOSTRIL TWICE DAILY nadoloL 40 2021-07 Yes [id number] 40mg Take 1 [facility] mg tablet 0-12 tablet by ity o f 00:00: mouth in [place] the Medical morning. Branch FLUTICASONE 2021-07 Yes [id number] SHAKE U nivers PROPIONATE 0-12 LIQUID AND ity of 50 00:00: USE 1 [place] mcg/actuati 00 SPRAY IN [facility] on nasal EACH Branch spray NOSTRIL TWICE DAILY nadoloL 40 2021-07 Yes [id number] 40mg Take 1 [facility] mg tablet 0-12 tablet by ity o f 00:00: mouth in [place] the Medical morning. Branch FLUTICASONE 2021-07 Yes [id number] SHAKE U nivers PROPIONATE 0-12 LIQUID AND ity of 50 00:00: USE 1 [place] mcg/actuati 00 [facility] [facility] spray NOSTRIL TWICE DAILY nadoloL 40 2021-07 Yes [id number] 40mg Take 1 [facility] mg tablet 0-12 tablet by ity o f 00:00: mouth in [place] the Medical morning. Branch FLUTICASONE 2021-07 Yes [id number] SHAKE U nivers PROPIONATE 0-12 LIQUID AND ity of 50 00:00: USE 1 [place] mcg/actuati 00 SPRAY IN [facility] on nasal EACH Branch spray NOSTRIL TWICE DAILY nadoloL 40 2021-07 Yes [id number] 40mg Take 1 [facility] mg tablet 0-12 tablet by ity o f 00:00: mouth in [place] the Medical morning. Branch FLUTICASONE 2021-07 Yes [id number] SHAKE U nivers PROPIONATE 0-12 LIQUID AND ity of 50 00:00: USE 1 [place] mcg/actuati 00 SPRAY IN [facility] on nasal EACH Branch spray NOSTRIL TWICE DAILY nadoloL 40 2021-07 Yes [id number] 40mg Take 1 [facility] mg tablet 0-12 tablet by ity o f 00:00: mouth in [place] the Medical morning. Branch FLUTICASONE 2021-07 Yes [id number] SHAKE U nivers PROPIONATE 0-12 LIQUID AND ity of 50 00:00: USE 1 [place] mcg/actuati 00 SPRAY IN [facility] on nasal EACH Branch spray NOSTRIL TWICE DAILY nadoloL 40 2021-07 Yes [id number] 40mg Take 1 [facility] mg tablet 0-12 tablet by ity o f 00:00: mouth in [place] the Medical morning. Branch FLUTICASONE 2021-07 Yes [id number] SHAKE U nivers PROPIONATE 0-12 LIQUID AND ity of 50 00:00: USE 1 [place] mcg/actuati 00 SPRAY IN [facility] on nasal EACH Branch spray NOSTRIL TWICE DAILY nadoloL 40 2021-07 Yes [id number] 40mg Take 1 [facility] mg tablet 0-12 tablet by ity o f 00:00: mouth in [place] the Medical morning. Branch FLUTICASONE 2021-07 Yes [id number] SHAKE U nivers PROPIONATE 0-12 LIQUID AND ity of 50 00:00: USE 1 [place] mcg/actuati 00 SPRAY IN [facility] janet on nasal EACH Branch spray NOSTRIL TWICE DAILY nadoloL 40 2021-07 Yes [id number] 40mg Take 1 [facility] mg tablet 0-12 tablet by ity o f 00:00: mouth in [place] the Medical morning. Branch FLUTICASONE 2021-07 Yes [id number] SHAKE U nivers PROPIONATE 0-12 LIQUID AND ity of 50 00:00: USE 1 [place] mcg/actuati 00 SPRAY IN [facility] on nasal EACH Branch spray NOSTRIL TWICE DAILY nadoloL 40 2021-07 Yes [id number] 40mg Take 1 [facility] mg tablet 0-12 tablet by ity o f 00:00: mouth in [place] the Medical morning. Branch FLUTICASONE 2021-07 Yes [id number] SHAKE U nivers PROPIONATE 0-12 LIQUID AND ity of 50 00:00: USE 1 [place] mcg/actuati 00 SPRAY IN [facility] on nasal EACH Branch spray NOSTRIL TWICE DAILY nadoloL 40 2021-07 Yes [id number] 40mg Take 1 [facility] mg tablet 0-12 tablet by ity o f 00:00: mouth in [place] 00 the Medical morning. Branch FLUTICASONE 2021-07 Yes [id number] SHAKE U nivers PROPIONATE 0-12 LIQUID AND ity of 50 00:00: USE 1 [place] mcg/actuati 00 SPRAY IN [facility] on nasal EACH Branch spray NOSTRIL TWICE DAILY nadoloL 40 2021-07 Yes [id number] 40mg Take 1 [facility] mg tablet 0-12 tablet by ity o f 00:00: mouth in [place] the Medical morning. Branch FLUTICASONE 2021-07 Yes [id number] SHAKE U nivers PROPIONATE 0-12 LIQUID AND ity of 50 00:00: USE 1 [place] mcg/actuati 00 SPRAY IN [facility] on nasal EACH Branch spray NOSTRIL TWICE DAILY nadoloL 40 2021-07 Yes [id number] 40mg Take 1 [facility] mg tablet 0-12 tablet by ity o f 00:00: mouth in [place] the Medical morning. Branch FLUTICASONE 2021-07 Yes [id number] SHAKE U nivers PROPIONATE 0-12 LIQUID AND ity of 50 00:00: USE 1 [place] mcg/actuati 00 SPRAY IN [facility] on nasal EACH Branch spray NOSTRIL TWICE DAILY nadoloL 40 2021-07 Yes [id number] 40mg Take 1 [facility] mg tablet 0-12 tablet by ity o f 00:00: mouth in [place] the Medical morning. Branch FLUTICASONE 2021-07 Yes [id number] SHAKE U nivers PROPIONATE 0-12 LIQUID AND ity of 50 00:00: USE 1 [place] mcg/actuati 00 SPRAY IN [facility] on nasal EACH Branch spray NOSTRIL TWICE DAILY nadoloL 40 2021-07 Yes [id number] 40mg Take 1 [facility] mg tablet 0-12 tablet by ity o f 00:00: mouth in [place] the Medical morning. Branch FLUTICASONE 2021-07 Yes [id number] SHAKE U nivers PROPIONATE 0-12 LIQUID AND ity of 50 00:00: USE 1 [place] mcg/actuati 00 SPRAY IN [facility] on nasal EACH Branch spray NOSTRIL TWICE DAILY nadoloL 40 2021-07 Yes [id number] 40mg Take 1 [facility] mg tablet 0-12 tablet by ity o f 00:00: mouth in [place] 00 the Medical morning. Branch FLUTICASONE 2021-07 Yes [id number] SHAKE U nivers PROPIONATE 0-12 LIQUID AND ity of 50 00:00: USE 1 [place] mcg/actuati 00 SPRAY IN [facility] on nasal EACH Branch spray NOSTRIL TWICE DAILY nadoloL 40 2021-07 Yes [id number] 40mg Take 1 [facility] mg tablet 0-12 tablet by ity o f 00:00: mouth in [place] 00 the Medical morning. Branch FLUTICASONE 2021-07 Yes [id number] SHAKE U nivers PROPIONATE 0-12 LIQUID AND ity of 50 00:00: USE 1 [place] mcg/actuati 00 SPRAY IN [facility] on nasal EACH Branch spray NOSTRIL TWICE DAILY nadoloL 40 2021-07 Yes [id number] 40mg Take 1 [facility] mg tablet 0-12 tablet by ity o f 00:00: mouth in [place] the Medical morning. Branch FLUTICASONE 2021-07 Yes [id number] SHAKE U nivers PROPIONATE 0-12 LIQUID AND ity of 50 00:00: USE 1 [place] mcg/actuati 00 SPRAY IN [facility] on nasal EACH Branch spray NOSTRIL TWICE DAILY nadoloL 40 2021-07 Yes [id number] 40mg Take 1 [facility] mg tablet 0-12 tablet by ity o f 00:00: mouth in [place] the Medical morning. Branch FLUTICASONE 2021-07 Yes [id number] SHAKE U nivers PROPIONATE 0-12 LIQUID AND ity of 50 00:00: USE 1 [place] mcg/actuati 00 SPRAY IN [facility] on nasal EACH Branch spray NOSTRIL TWICE DAILY nadoloL 40 2021-07 Yes [id number] 40mg Take 1 [facility] mg tablet 0-12 tablet by ity o f 00:00: mouth in [place] the Medical morning. Branch FLUTICASONE 2021-07 Yes [id number] SHAKE U nivers PROPIONATE 0-12 LIQUID AND ity of 50 00:00: USE 1 [place] mcg/actuati 00 SPRAY IN [facility] on nasal EACH Branch spray NOSTRIL TWICE DAILY nadoloL 40 2021-07 Yes [id number] 40mg Take 1 [facility] mg tablet 0-12 tablet by ity o f 00:00: mouth in [place] 00 the Medical morning. Branch FLUTICASONE 2021-07 Yes [id number] SHAKE U nivers PROPIONATE 0-12 LIQUID AND ity of 50 00:00: USE 1 [place] mcg/actuati 00 SPRAY IN [facility] on nasal EACH Branch spray NOSTRIL TWICE DAILY nadoloL 40 2021-07 Yes [id number] 40mg Take 1 [facility] mg tablet 0-12 tablet by ity o f 00:00: mouth in [place] the Medical morning. Branch FLUTICASONE 2021-07 Yes [id number] SHAKE U nivers PROPIONATE 0-12 LIQUID AND ity of 50 00:00: USE 1 [place] mcg/actuati 00 SPRAY IN [facility] on nasal EACH Branch spray NOSTRIL TWICE DAILY nadoloL 40 2021-07 Yes [id number] 40mg Take 1 [facility] mg tablet 0-12 tablet by ity o f 00:00: mouth in [place] the Medical morning. Branch FLUTICASONE 2021-07 Yes [id number] SHAKE U nivers PROPIONATE 0-12 LIQUID AND ity of 50 00:00: USE 1 [place] mcg/actuati 00 SPRAY IN [facility] on nasal EACH Branch spray NOSTRIL TWICE DAILY nadoloL 40 2021-07 Yes [id number] 40mg Take 1 [facility] mg tablet 0-12 tablet by ity o f 00:00: mouth in [place] the Medical morning. Branch FLUTICASONE 2021-07 Yes [id number] SHAKE U nivers PROPIONATE 0-12 LIQUID AND ity of 50 00:00: USE 1 [place] mcg/actuati 00 SPRAY IN [facility] on nasal EACH Branch spray NOSTRIL TWICE DAILY nadoloL 40 2021-07 Yes [id number] 40mg Take 1 [facility] mg tablet 0-12 tablet by ity o f 00:00: mouth in [place] the Medical morning. Branch FLUTICASONE 2021-07 Yes [id number] SHAKE U nivers PROPIONATE 0-12 LIQUID AND ity of 50 00:00: USE 1 [place] mcg/actuati 00 SPRAY IN [facility] on nasal EACH Branch spray NOSTRIL TWICE DAILY nadoloL 40 2021-07 Yes [id number] 40mg Take 1 [facility] mg tablet 0-12 tablet by ity o f 00:00: mouth in [place] the Medical morning. Branch FLUTICASONE 2021-07 Yes [id number] SHAKE U nivers PROPIONATE 0-12 LIQUID AND ity of 50 00:00: USE 1 [place] mcg/actuati 00 SPRAY IN [facility] on nasal EACH Branch spray NOSTRIL TWICE DAILY nadoloL 40 2021-07 Yes [id number] 40mg Take 1 [facility] mg tablet 0-12 tablet by ity o f 00:00: mouth in [place] the Medical morning. Branch FLUTICASONE 2021-07 Yes [id number] SHAKE U nivers PROPIONATE 0-12 LIQUID AND ity of 50 00:00: USE 1 [place] mcg/actuati 00 SPRAY IN [facility] on nasal EACH Branch spray NOSTRIL TWICE DAILY nadoloL 40 2021-07 Yes [id number] 40mg Take 1 [facility] mg tablet 0-12 tablet by ity o f 00:00: mouth in [place] 00 the Medical morning. Branch FLUTICASONE 2021-07 Yes [id number] SHAKE U nivers PROPIONATE 0-12 LIQUID AND ity of 50 00:00: USE 1 [place] mcg/actuati 00 SPRAY IN [facility] on nasal EACH Branch spray NOSTRIL TWICE DAILY nadoloL 40 2021-07 Yes [id number] 40mg Take 1 [facility] mg tablet 0-12 tablet by ity o f 00:00: mouth in [place] the Medical morning. Branch FLUTICASONE 2021-07 Yes [id number] SHAKE U nivers PROPIONATE 0-12 LIQUID AND ity of 50 00:00: USE 1 [place] mcg/actuati 00 SPRAY IN [facility] on nasal EACH Branch spray NOSTRIL TWICE DAILY nadoloL 40 2021-07 Yes [id number] 40mg Take 1 [facility] mg tablet 0-12 tablet by ity o f 00:00: mouth in [place] the Medical morning. Branch FLUTICASONE 2021-07 Yes [id number] SHAKE U nivers PROPIONATE 0-12 LIQUID AND ity of 50 00:00: USE 1 [place] mcg/actuati 00 SPRAY IN [facility] janet on nasal EACH Branch spray NOSTRIL TWICE DAILY nadoloL 40 2021-07 Yes [id number] 40mg Take 1 [facility] mg tablet 0-12 tablet by ity o f 00:00: mouth in [place] the Medical morning. Branch FLUTICASONE 2021-07 Yes [id number] SHAKE U nivers PROPIONATE 0-12 LIQUID AND ity of 50 00:00: USE 1 [place] mcg/actuati 00 SPRAY IN [facility] on nasal EACH Branch spray NOSTRIL TWICE DAILY nadoloL 40 2021-07 Yes [id number] 40mg Take 1 [facility] mg tablet 0-12 tablet by ity o f 00:00: mouth in [place] the Medical morning. Branch FLUTICASONE 2021-07 Yes [id number] SHAKE U nivers PROPIONATE 0-12 LIQUID AND ity of 50 00:00: USE 1 [place] mcg/actuati 00 SPRAY IN [facility] on nasal EACH Branch spray NOSTRIL TWICE DAILY nadoloL 40 2021-07 Yes [id number] 40mg Take 1 [facility] mg tablet 0-12 tablet by ity o f 00:00: mouth in [place] the Medical morning. Branch FLUTICASONE 2021-07 Yes [id number] SHAKE U nivers PROPIONATE 0-12 LIQUID AND ity of 50 00:00: USE 1 [place] mcg/actuati 00 SPRAY IN [facility] janet on nasal EACH Branch spray NOSTRIL TWICE DAILY nadoloL 40 2021-07 Yes [id number] 40mg Take 1 [facility] mg tablet 0-12 tablet by ity o f 00:00: mouth in [place] the Medical morning. Branch FLUTICASONE 2021-07 Yes [id number] SHAKE U nivers PROPIONATE 0-12 LIQUID AND ity of 50 00:00: USE 1 [place] mcg/actuati 00 SPRAY IN [facility] janet on nasal EACH Branch spray NOSTRIL TWICE DAILY nadoloL 40 2021-07 Yes [id number] 40mg Take 1 [facility] mg tablet 0-12 tablet by ity o f 00:00: mouth in [place] the Medical morning. Branch FLUTICASONE 2021-07 Yes [id number] SHAKE U nivers PROPIONATE 0-12 LIQUID AND ity of 50 00:00: USE 1 [place] mcg/actuati 00 SPRAY IN [facility] janet on nasal EACH Branch spray NOSTRIL TWICE DAILY nadoloL 40 2021-07 Yes [id number] 40mg Take 1 [facility] mg tablet 0-12 tablet by ity o f 00:00: mouth in [place] the Medical morning. Branch FLUTICASONE 2021-07 Yes [id number] SHAKE U nivers PROPIONATE 0-12 LIQUID AND ity of 50 00:00: USE 1 [place] mcg/actuati 00 SPRAY IN [facility] on nasal EACH Branch spray NOSTRIL TWICE DAILY nadoloL 40 2021-07 Yes [id number] 40mg Take 1 [facility] mg tablet 0-12 tablet by ity o f 00:00: mouth in [place] 00 the Medical morning. Branch FLUTICASONE 2021-07 Yes [id number] SHAKE U nivers PROPIONATE 0-12 LIQUID AND ity of 50 00:00: USE 1 [place] mcg/actuati 00 SPRAY IN [facility] on nasal EACH Branch spray NOSTRIL TWICE DAILY nadoloL 40 2021-07 Yes [id number] 40mg Take 1 [facility] mg tablet 0-12 tablet by ity o f 00:00: mouth in [place] the Medical morning. Branch FLUTICASONE 2021-07 Yes [id number] SHAKE U nivers PROPIONATE 0-12 LIQUID AND ity of 50 00:00: USE 1 [place] mcg/actuati 00 SPRAY IN [facility] janet on nasal EACH Branch spray NOSTRIL TWICE DAILY nadoloL 40 2021-07 Yes [id number] 40mg Take 1 [facility] mg tablet 0-12 tablet by ity o f 00:00: mouth in [place] the Medical morning. Branch FLUTICASONE 2021-07 Yes [id number] SHAKE U nivers PROPIONATE 0-12 LIQUID AND ity of 50 00:00: USE 1 [place] mcg/actuati 00 SPRAY IN [facility] on nasal EACH Branch spray NOSTRIL TWICE DAILY nadoloL 40 2021-07 Yes [id number] 40mg Take 1 [facility] mg tablet 0-12 tablet by ity o f 00:00: mouth in [place] the Medical morning. Branch FLUTICASONE 2021-07 Yes [id number] SHAKE U nivers PROPIONATE 0-12 LIQUID AND ity of 50 00:00: USE 1 [place] mcg/actuati 00 SPRAY IN [facility] on nasal EACH Branch spray NOSTRIL TWICE DAILY nadoloL 40 2021-07 Yes [id number] 40mg Take 1 [facility] mg tablet 0-12 tablet by ity o f 00:00: mouth in [place] the Medical morning. Branch FLUTICASONE 2021-07 Yes [id number] SHAKE U nivers PROPIONATE 0-12 LIQUID AND ity of 50 00:00: USE 1 [place] mcg/actuati 00 SPRAY IN [facility] on nasal EACH Branch spray NOSTRIL TWICE DAILY nadoloL 40 2021-07 Yes [id number] 40mg Take 1 [facility] mg tablet 0-12 tablet by ity o f 00:00: mouth in [place] the Medical morning. Branch FLUTICASONE 2021-07 Yes [id number] SHAKE U nivers PROPIONATE 0-12 LIQUID AND ity of 50 00:00: USE 1 [place] mcg/actuati 00 SPRAY IN [facility] on nasal EACH Branch spray NOSTRIL TWICE DAILY nadoloL 40 2021-07 Yes [id number] 40mg Take 1 [facility] mg tablet 0-12 tablet by ity o f 00:00: mouth in [place] 00 the Medical morning. Branch FLUTICASONE 2021-07 Yes [id number] SHAKE U nivers PROPIONATE 0-12 LIQUID AND ity of 50 00:00: USE 1 [place] mcg/actuati 00 SPRAY IN [facility] on nasal EACH Branch spray NOSTRIL TWICE DAILY nadoloL 40 2021-07 Yes [id number] 40mg Take 1 [facility] mg tablet 0-12 tablet by ity o f 00:00: mouth in [place] the Medical morning. Branch FLUTICASONE 2021-07 Yes [id number] SHAKE U nivers PROPIONATE 0-12 LIQUID AND ity of 50 00:00: USE 1 [place] mcg/actuati 00 SPRAY IN [facility] on nasal EACH Branch spray NOSTRIL TWICE DAILY nadoloL 40 2021-07 Yes [id number] 40mg Take 1 [facility] mg tablet 0-12 tablet by ity o f 00:00: mouth in [place] the Medical morning. Branch FLUTICASONE 2021-07 Yes [id number] SHAKE U nivers PROPIONATE 0-12 LIQUID AND ity of 50 00:00: USE 1 [place] mcg/actuati 00 SPRAY IN [facility] on nasal EACH Branch spray NOSTRIL TWICE DAILY nadoloL 40 2021-07 Yes [id number] 40mg Take 1 [facility] mg tablet 0-12 tablet by ity o f 00:00: mouth in [place] the Medical morning. Branch FLUTICASONE 2021-07 Yes [id number] SHAKE U nivers PROPIONATE 0-12 LIQUID AND ity of 50 00:00: USE 1 [place] mcg/actuati 00 SPRAY IN [facility] on nasal EACH Branch spray NOSTRIL TWICE DAILY nadoloL 40 2021-07 Yes [id number] 40mg Take 1 [facility] mg tablet 0-12 tablet by ity o f 00:00: mouth in [place] 00 the Medical morning. Branch FLUTICASONE 2021-07 Yes [id number] SHAKE U nivers PROPIONATE 0-12 LIQUID AND ity of 50 00:00: USE 1 [place] mcg/actuati 00 SPRAY IN [facility] on nasal EACH Branch spray NOSTRIL TWICE DAILY nadoloL 40 2021-07 Yes [id number] 40mg Take 1 [facility] mg tablet 0-12 tablet by ity o f 00:00: mouth in [place] the Medical morning. Branch FLUTICASONE 2021-07 Yes [id number] SHAKE U nivers PROPIONATE 0-12 LIQUID AND ity of 50 00:00: USE 1 [place] mcg/actuati 00 SPRAY IN [facility] on nasal EACH Branch spray NOSTRIL TWICE DAILY nadoloL 40 2021-07 Yes [id number] 40mg Take 1 [facility] mg tablet 0-12 tablet by ity o f 00:00: mouth in [place] the Medical morning. Branch FLUTICASONE 2021-07 Yes [id number] SHAKE U nivers PROPIONATE 0-12 LIQUID AND ity of 50 00:00: USE 1 [place] mcg/actuati 00 SPRAY IN [facility] on nasal EACH Branch spray NOSTRIL TWICE DAILY nadoloL 40 2021-07 Yes [id number] 40mg Take 1 [facility] mg tablet 0-12 tablet by ity o f 00:00: mouth in [place] the Medical morning. Branch FLUTICASONE 2021-07 Yes [id number] SHAKE U nivers PROPIONATE 0-12 LIQUID AND ity of 50 00:00: USE 1 [place] mcg/actuati 00 SPRAY IN [facility] on nasal EACH Branch spray NOSTRIL TWICE DAILY nadoloL 40 2021-07 Yes [id number] 40mg Take 1 [facility] mg tablet 0-12 tablet by ity o f 00:00: mouth in [place] the Medical morning. Branch FLUTICASONE 2021-07 Yes [id number] SHAKE U nivers PROPIONATE 0-12 LIQUID AND ity of 50 00:00: USE 1 [place] mcg/actuati 00 SPRAY IN [facility] on nasal EACH Branch spray NOSTRIL TWICE DAILY nadoloL 40 2021-07 Yes [id number] 40mg Take 1 [facility] mg tablet 0-12 tablet by ity o f 00:00: mouth in [place] the Medical morning. Branch FLUTICASONE 2021-07 Yes [id number] SHAKE U nivers PROPIONATE 0-12 LIQUID AND ity of 50 00:00: USE 1 [place] mcg/actuati 00 SPRAY IN [facility] on nasal EACH Branch spray NOSTRIL TWICE DAILY nadoloL 40 2021-07 Yes [id number] 40mg Take 1 [facility] mg tablet 0-12 tablet by ity o f 00:00: mouth in [place] the Medical morning. Branch FLUTICASONE 2021-07 Yes [id number] SHAKE U nivers PROPIONATE 0-12 LIQUID AND ity of 50 00:00: USE 1 [place] mcg/actuati 00 SPRAY IN [facility] on nasal EACH Branch spray NOSTRIL TWICE DAILY nadoloL 40 2021-07 Yes [id number] 40mg Take 1 [facility] mg tablet 0-12 tablet by ity o f 00:00: mouth in [place] the Medical morning. Branch FLUTICASONE 2021-07 Yes [id number] SHAKE U nivers PROPIONATE 0-12 LIQUID AND ity of 50 00:00: USE 1 [place] mcg/actuati 00 SPRAY IN [facility] on nasal EACH Branch spray NOSTRIL TWICE DAILY nadoloL 40 2021-07 Yes [id number] 40mg Take 1 [facility] mg tablet 0-12 tablet by ity o f 00:00: mouth in [place] the Medical morning. Branch FLUTICASONE 2021-07 Yes [id number] SHAKE U nivers PROPIONATE 0-12 LIQUID AND ity of 50 00:00: USE 1 [place] mcg/actuati 00 SPRAY IN [facility] on nasal EACH Branch spray NOSTRIL TWICE DAILY nadoloL 40 2021-07 Yes [id number] 40mg Take 1 [facility] mg tablet 0-12 tablet by ity o f 00:00: mouth in [place] the Medical morning. Branch FLUTICASONE 2021-07 Yes [id number] SHAKE U nivers PROPIONATE 0-12 LIQUID AND ity of 50 00:00: USE 1 [place] mcg/actuati 00 SPRAY IN [facility] janet on nasal EACH Branch spray NOSTRIL TWICE DAILY nadoloL 40 2021-07 Yes [id number] 40mg Take 1 [facility] mg tablet 0-12 tablet by ity o f 00:00: mouth in [place] the Medical morning. Branch FLUTICASONE 2021-07 Yes [id number] SHAKE U nivers PROPIONATE 0-12 LIQUID AND ity of 50 00:00: USE 1 [place] mcg/actuati 00 SPRAY IN [facility] on nasal EACH Branch spray NOSTRIL TWICE DAILY nadoloL 40 2021-07 Yes [id number] 40mg Take 1 [facility] mg tablet 0-12 tablet by ity o f 00:00: mouth in [place] the Medical morning. Branch FLUTICASONE 2021-07 Yes [id number] SHAKE U nivers PROPIONATE 0-12 LIQUID AND ity of 50 00:00: USE 1 [place] mcg/actuati 00 SPRAY IN [facility] on nasal EACH Branch spray NOSTRIL TWICE DAILY nadoloL 40 2021-07 Yes [id number] 40mg Take 1 [facility] mg tablet 0-12 tablet by ity o f 00:00: mouth in [place] 00 the Medical morning. Branch FLUTICASONE 2021-07 Yes [id number] SHAKE U nivers PROPIONATE 0-12 LIQUID AND ity of 50 00:00: USE 1 [place] mcg/actuati 00 SPRAY IN [facility] on nasal EACH Branch spray NOSTRIL TWICE DAILY nadoloL 40 2021-07 Yes [id number] 40mg Take 1 [facility] mg tablet 0-12 tablet by ity o f 00:00: mouth in [place] the Medical morning. Branch FLUTICASONE 2021-07 Yes [id number] SHAKE U nivers PROPIONATE 0-12 LIQUID AND ity of 50 00:00: USE 1 [place] mcg/actuati 00 SPRAY IN [facility] janet on nasal EACH Branch spray NOSTRIL TWICE DAILY nadoloL 40 2021-07 Yes [id number] 40mg Take 1 [facility] mg tablet 0-12 tablet by ity o f 00:00: mouth in [place] the Medical morning. Branch FLUTICASONE 2021-07 Yes [id number] SHAKE U nivers PROPIONATE 0-12 LIQUID AND ity of 50 00:00: USE 1 [place] mcg/actuati 00 SPRAY IN [facility] on nasal EACH Branch spray NOSTRIL TWICE DAILY nadoloL 40 2021-07 Yes [id number] 40mg Take 1 [facility] mg tablet 0-12 tablet by ity o f 00:00: mouth in [place] the Medical morning. Branch FLUTICASONE 2021-07 Yes [id number] SHAKE U nivers PROPIONATE 0-12 LIQUID AND ity of 50 00:00: USE 1 [place] mcg/actuati 00 SPRAY IN [facility] on nasal EACH Branch spray NOSTRIL TWICE DAILY nadoloL 40 2021-07 Yes [id number] 40mg Take 1 [facility] mg tablet 0-12 tablet by ity o f 00:00: mouth in [place] 00 the Medical morning. Branch FLUTICASONE 2021-07 Yes [id number] SHAKE U nivers PROPIONATE 0-12 LIQUID AND ity of 50 00:00: USE 1 [place] mcg/actuati 00 SPRAY IN [facility] on nasal EACH Branch spray NOSTRIL TWICE DAILY nadoloL 40 2021-07 Yes [id number] 40mg Take 1 [facility] mg tablet 0-12 tablet by ity o f 00:00: mouth in [place] 00 the Medical morning. Branch FLUTICASONE 2021-07 Yes [id number] SHAKE U nivers PROPIONATE 0-12 LIQUID AND ity of 50 00:00: USE 1 [place] mcg/actuati 00 SPRAY IN [facility] on nasal EACH Branch spray NOSTRIL TWICE DAILY nadoloL 40 2021-07 Yes [id number] 40mg Take 1 [facility] mg tablet 0-12 tablet by ity o f 00:00: mouth in [place] the Medical morning. Branch FLUTICASONE 2021-07 Yes [id number] SHAKE U nivers PROPIONATE 0-12 LIQUID AND ity of 50 00:00: USE 1 [place] mcg/actuati 00 SPRAY IN [facility] on nasal EACH Branch spray NOSTRIL TWICE DAILY nadoloL 40 2021-07 Yes [id number] 40mg Take 1 [facility] mg tablet 0-12 tablet by ity o f 00:00: mouth in [place] the Medical morning. Branch FLUTICASONE 2021-07 Yes [id number] SHAKE U nivers PROPIONATE 0-12 LIQUID AND ity of 50 00:00: USE 1 [place] mcg/actuati 00 SPRAY IN [facility] on nasal EACH Branch spray NOSTRIL TWICE DAILY nadoloL 40 2021-07 Yes [id number] 40mg Take 1 [facility] mg tablet 0-12 tablet by ity o f 00:00: mouth in [place] the Medical morning. Branch FLUTICASONE 2021-07 Yes [id number] SHAKE U nivers PROPIONATE 0-12 LIQUID AND ity of 50 00:00: USE 1 [place] mcg/actuati 00 SPRAY IN [facility] on nasal EACH Branch spray NOSTRIL TWICE DAILY nadoloL 40 2021-07 Yes [id number] 40mg Take 1 [facility] mg tablet 0-12 tablet by ity o f 00:00: mouth in [place] 00 the Medical morning. Branch FLUTICASONE 2021-07 Yes [id number] SHAKE U nivers PROPIONATE 0-12 LIQUID AND ity of 50 00:00: USE 1 [place] mcg/actuati 00 SPRAY IN [facility] on nasal EACH Branch spray NOSTRIL TWICE DAILY nadoloL 40 2021-07 Yes [id number] 40mg Take 1 [facility] mg tablet 0-12 tablet by ity o f 00:00: mouth in [place] 00 the Medical morning. Branch FLUTICASONE 2021-07 Yes [id number] SHAKE U nivers PROPIONATE 0-12 LIQUID AND ity of 50 00:00: USE 1 [place] mcg/actuati 00 SPRAY IN [facility] on nasal EACH Branch spray NOSTRIL TWICE DAILY nadoloL 40 2021-07 Yes [id number] 40mg Take 1 [facility] mg tablet 0-12 tablet by ity o f 00:00: mouth in [place] the Medical morning. Branch FLUTICASONE 2021-07 Yes [id number] SHAKE U nivers PROPIONATE 0-12 LIQUID AND ity of 50 00:00: USE 1 [place] mcg/actuati 00 SPRAY IN [facility] on nasal EACH Branch spray NOSTRIL TWICE DAILY nadoloL 40 2021-07 Yes [id number] 40mg Take 1 [facility] mg tablet 0-12 tablet by ity o f 00:00: mouth in [place] the Medical morning. Branch FLUTICASONE 2021-07 Yes [id number] SHAKE U nivers PROPIONATE 0-12 LIQUID AND ity of 50 00:00: USE 1 [place] mcg/actuati 00 [facility] [facility] on nasal EACH Branch spray NOSTRIL TWICE DAILY nadoloL 40 2021-07 Yes [id number] 40mg Take 1 [facility] mg tablet 0-12 tablet by ity o f 00:00: mouth in [place] the Medical morning. Branch FLUTICASONE 2021-07 Yes [id number] SHAKE U nivers PROPIONATE 0-12 LIQUID AND ity of 50 00:00: USE 1 [place] mcg/actuati 00 SPRAY IN [facility] on nasal EACH Branch spray NOSTRIL TWICE DAILY nadoloL 40 2021-07 Yes [id number] 40mg Take 1 [facility] mg tablet 0-12 tablet by ity o f 00:00: mouth in [place] 00 the Medical morning. Branch FLUTICASONE 2021-07 Yes [id number] SHAKE U nivers PROPIONATE 0-12 LIQUID AND ity of 50 00:00: USE 1 [place] mcg/actuati 00 SPRAY IN [facility] on nasal EACH Branch spray NOSTRIL TWICE DAILY nadoloL 40 2021-07 Yes [id number] 40mg Take 1 [facility] mg tablet 0-12 tablet by ity o f 00:00: mouth in [place] 00 the Medical morning. Branch FLUTICASONE 2021-07 Yes [id number] SHAKE U nivers PROPIONATE 0-12 LIQUID AND ity of 50 00:00: USE 1 [place] mcg/actuati 00 SPRAY IN [facility] on nasal EACH Branch spray NOSTRIL TWICE DAILY nadoloL 40 2021-07 Yes [id number] 40mg Take 1 [facility] mg tablet 0-12 tablet by ity o f 00:00: mouth in [place] the Medical morning. Branch FLUTICASONE 2021-07 Yes [id number] SHAKE U nivers PROPIONATE 0-12 LIQUID AND ity of 50 00:00: USE 1 [place] mcg/actuati 00 SPRAY IN [facility] on nasal EACH Branch spray NOSTRIL TWICE DAILY nadoloL 40 2021-07 Yes [id number] 40mg Take 1 [facility] mg tablet 0-12 tablet by ity o f 00:00: mouth in [place] the Medical morning. Branch FLUTICASONE 2021-07 Yes [id number] SHAKE U nivers PROPIONATE 0-12 LIQUID AND ity of 50 00:00: USE 1 [place] mcg/actuati 00 SPRAY IN [facility] on nasal EACH Branch spray NOSTRIL TWICE DAILY nadoloL 40 2021-07 Yes [id number] 40mg Take 1 [facility] mg tablet 0-12 tablet by ity o f 00:00: mouth in [place] the Medical morning. Branch FLUTICASONE 2021-07 Yes [id number] SHAKE U nivers PROPIONATE 0-12 LIQUID AND ity of 50 00:00: USE 1 [place] mcg/actuati 00 SPRAY IN [facility] on nasal EACH Branch spray NOSTRIL TWICE DAILY nadoloL 40 2021-07 Yes [id number] 40mg Take 1 [facility] mg tablet 0-12 tablet by ity o f 00:00: mouth in [place] the Medical morning. Branch FLUTICASONE 2021-07 Yes [id number] SHAKE U nivers PROPIONATE 0-12 LIQUID AND ity of 50 00:00: USE 1 [place] mcg/actuati 00 SPRAY IN [facility] on nasal EACH Branch spray NOSTRIL TWICE DAILY nadoloL 40 2021-07 Yes [id number] 40mg Take 1 [facility] mg tablet 0-12 tablet by ity o f 00:00: mouth in [place] 00 the Medical morning. Branch FLUTICASONE 2021-07 Yes [id number] SHAKE U nivers PROPIONATE 0-12 LIQUID AND ity of 50 00:00: USE 1 [place] mcg/actuati 00 SPRAY IN [facility] on nasal EACH Branch spray NOSTRIL TWICE DAILY nadoloL 40 2021-07 Yes [id number] 40mg Take 1 [facility] mg tablet 0-12 tablet by ity o f 00:00: mouth in [place] 00 the Medical morning. Branch FLUTICASONE 2021-07 Yes [id number] SHAKE U nivers PROPIONATE 0-12 LIQUID AND ity of 50 00:00: USE 1 [place] mcg/actuati 00 SPRAY IN [facility] on nasal EACH Branch spray NOSTRIL TWICE DAILY nadoloL 40 2021-07 Yes [id number] 40mg Take 1 [facility] mg tablet 0-12 tablet by ity o f 00:00: mouth in [place] the Medical morning. Branch nadoloL 40 2021-07 Yes [id number] 40mg Take 1 [facility] mg tablet 0-12 tablet by ity o f 00:00: mouth in [place] the Medical morning. Branch nadoloL 40 2021-07 Yes [id number] 40mg Take 1 [facility] mg tablet 0-12 tablet by ity o f 00:00: mouth in [place] the Medical morning. Branch nadoloL 40 2021-07 Yes [id number] 40mg Take 1 [facility] mg tablet 0-12 tablet by ity o f 00:00: mouth in [place] the Medical morning. Branch nadoloL 40 2021-07 Yes [id number] 40mg Take 1 [facility] mg tablet 0-12 tablet by ity o f 00:00: mouth in [place] 00 the Medical morning. Branch nadoloL 40 2021-07 Yes [id number] 40mg Take 1 [facility] mg tablet 0-12 tablet by ity o f 00:00: mouth in [place] 00 the Medical morning. Branch nadoloL 40 2021-07 Yes [id number] 40mg Take 1 [facility] mg tablet 0-12 tablet by ity o f 00:00: mouth in [place] 00 the Medical morning. Branch nadoloL 40 2021-07 Yes [id number] 40mg Take 1 [facility] mg tablet 0-12 tablet by ity o f 00:00: mouth in [place] 00 the Medical morning. Branch nadoloL 40 2021-07 Yes [id number] 40mg Take 1 [facility] mg tablet 0-12 tablet by ity o f 00:00: mouth in [place] 00 the Medical morning. Branch nadoloL 40 2021-07 Yes [id number] 40mg Take 1 [facility] mg tablet 0-12 tablet by ity o f 00:00: mouth in [place] 00 the Medical morning. Branch nadoloL 40 2021-07 Yes [id number] 40mg Take 1 [facility] mg tablet 0-12 tablet by ity o f 00:00: mouth in [place] 00 the Medical morning. Branch nadoloL 40 2021-07 Yes [id number] 40mg Take 1 [facility] mg tablet 0-12 tablet by ity o f 00:00: mouth in [place] 00 the Medical morning. Branch nadoloL 40 2021-07 Yes [id number] 40mg Take 1 [facility] mg tablet 0-12 tablet by ity o f 00:00: mouth in [place] the Medical morning. Branch nadoloL 40 2021-07 Yes [id number] 40mg Take 1 [facility] mg tablet 0-12 tablet by ity o f 00:00: mouth in [place] the Medical morning. Branch nadoloL 40 2021-07 Yes [id number] 40mg Take 1 [facility] mg tablet 0-12 tablet by ity o f 00:00: mouth in [place] the Medical morning. Branch nadoloL 40 2021-07 Yes [id number] 40mg Take 1 [facility] mg tablet 0-12 tablet by ity o f 00:00: mouth in [place] 00 the Medical morning. Branch nadoloL 40 2021-07 Yes [id number] 40mg Take 1 [facility] mg tablet 0-12 tablet by ity o f 00:00: mouth in [place] 00 the Medical morning. Branch nadoloL 40 2021-07 Yes [id number] 40mg Take 1 [facility] mg tablet 0-12 tablet by ity o f 00:00: mouth in [place] 00 the Medical morning. Branch nadoloL 40 2021-07 Yes [id number] 40mg Take 1 [facility] mg tablet 0-12 tablet by ity o f 00:00: mouth in [place] 00 the Medical morning. Branch nadoloL 40 2021-07 Yes [id number] 40mg Take 1 [facility] mg tablet 0-12 tablet by ity o f 00:00: mouth in [place] 00 the Medical morning. Branch nadoloL 40 2021-07 Yes [id number] 40mg Take 1 [facility] mg tablet 0-12 tablet by ity o f 00:00: mouth in [place] 00 the Medical morning. Branch nadoloL 40 2021-07 Yes [id number] 40mg Take 1 [facility] mg tablet 0-12 tablet by ity o f 00:00: mouth in [place] 00 the Medical morning. Branch nadoloL 40 2021-07 Yes [id number] 40mg Take 1 [facility] mg tablet 0-12 tablet by ity o f 00:00: mouth in [place] 00 the Medical morning. Branch nadoloL 40 2021-07 Yes [id number] 40mg Take 1 [facility] mg tablet 0-12 tablet by ity o f 00:00: mouth in [place] 00 the Medical morning. Branch nadoloL 40 2021-07 Yes [id number] 40mg Take 1 [facility] mg tablet 0-12 tablet by ity o f 00:00: mouth in [place] 00 the Medical morning. Branch nadoloL 40 2021-07 Yes [id number] 40mg Take 1 [facility] mg tablet 0-12 tablet by ity o f 00:00: mouth in [place] 00 the Medical morning. Branch nadoloL 40 2021-07 Yes [id number] 40mg Take 1 [facility] mg tablet 0-12 tablet by ity o f 00:00: mouth in [place] 00 the Medical morning. Branch nadoloL 40 2021-07 Yes [id number] 40mg Take 1 [facility] mg tablet 0-12 tablet by ity o f 00:00: mouth in [place] 00 the Medical morning. Branch nadoloL 40 2021-07 Yes [id number] 40mg Take 1 [facility] mg tablet 0-12 tablet by ity o f 00:00: mouth in [place] 00 the Medical morning. Branch nadoloL 40 2021-07 Yes [id number] 40mg Take 1 [facility] mg tablet 0-12 tablet by ity o f 00:00: mouth in [place] 00 the Medical morning. Branch nadoloL 40 2021-07 Yes [id number] 40mg Take 1 [facility] mg tablet 0-12 tablet by ity o f 00:00: mouth in [place] 00 the Medical morning. Branch nadoloL 40 2021-07 Yes [id number] 40mg Take 1 [facility] mg tablet 0-12 tablet by ity o f 00:00: mouth in [place] 00 the Medical morning. Branch nadoloL 40 2021-07 Yes [id number] 40mg Take 1 [facility] mg tablet 0-12 tablet by ity o f 00:00: mouth in [place] 00 the Medical morning. Branch nadoloL 40 2021-07 Yes [id number] 40mg Take 1 [facility] mg tablet 0-12 tablet by ity o f 00:00: mouth in [place] 00 the Medical morning. Branch nadoloL 40 2021-07 Yes [id number] 40mg Take 1 [facility] mg tablet 0-12 tablet by ity o f 00:00: mouth in [place] 00 the Medical morning. Branch nadoloL 40 2021-07 Yes [id number] 40mg Take 1 [facility] mg tablet 0-12 tablet by ity o f 00:00: mouth in [place] 00 the Medical morning. Branch nadoloL 40 2021-07 Yes [id number] 40mg Take 1 [facility] mg tablet 0-12 tablet by ity o f 00:00: mouth in [place] 00 the Medical morning. Branch nadoloL 40 2021-07 Yes [id number] 40mg Take 1 [facility] mg tablet 0-12 tablet by ity o f 00:00: mouth in [place] 00 the Medical morning. Branch nadoloL 40 2021-07 Yes [id number] 40mg Take 1 [facility] mg tablet 0-12 tablet by ity o f 00:00: mouth in [place] 00 the Medical morning. Branch nadoloL 40 2021-07 Yes [id number] 40mg Take 1 [facility] mg tablet 0-12 tablet by ity o f 00:00: mouth in [place] 00 the Medical morning. Branch nadoloL 40 2021-07 Yes [id number] 40mg Take 1 [facility] mg tablet 0-12 tablet by ity o f 00:00: mouth in [place] 00 the Medical morning. Branch nadoloL 40 2021-07 Yes [id number] 40mg Take 1 [facility] mg tablet 0-12 tablet by ity o f 00:00: mouth in [place] 00 the Medical morning. Branch nadoloL 40 2021-07 Yes [id number] 40mg Take 1 [facility] mg tablet 0-12 tablet by ity o f 00:00: mouth in [place] 00 the Medical morning. Branch nadoloL 40 2021-07 Yes [id number] 40mg Take 1 [facility] mg tablet 0-12 tablet by ity o f 00:00: mouth in [place] 00 the Medical morning. Branch nadoloL 40 2021-07 Yes [id number] 40mg Take 1 [facility] mg tablet 0-12 tablet by ity o f 00:00: mouth in [place] 00 the Medical morning. Branch nadoloL 40 2021-07 Yes [id number] 40mg Take 1 [facility] mg tablet 0-12 tablet by ity o f 00:00: mouth in [place] 00 the Medical morning. Branch nadoloL 40 2021-07 Yes [id number] 40mg Take 1 [facility] mg tablet 0-12 tablet by ity o f 00:00: mouth in [place] 00 the Medical morning. Branch nadoloL 40 2021-07- No [id number] 40mg Take 1 U nivers mg tablet 0-12 06-01 tablet by ity of 00:00: 00:00 mouth in [place] 00 :00 the Medical morning. Branch FLUTICASONE 2021-07- No [id number] SHAKE [facility] PROPIONATE 0-12 03-20 LIQUID AND it y of 50 00:00: 00:00 USE 1 [place] mcg/actuati 00 :00 SPRAY IN [facility] on nasal EACH Branch spray NOSTRIL TWICE DAILY FLUTICASONE 2021-07- No [id number] SHAKE Univers PROPIONATE 0-12 03-20 LIQUID AND it y of 50 00:00: 00:00 USE 1 [place] mcg/actuati 00 :00 SPRAY IN [facility] on nasal EACH Branch spray NOSTRIL TWICE DAILY heparin 2021- No [id number] 500U 500 Units, [facility] lock flush 04-07 IV Push, ity of (HEPARIN 18:00: 17:10 ONCE, 1 [place] LOCKFLUSH(P 00 :00 dose, On Medi janet ORCINE)(PF) Fri Branch ) 100 04/07/22 at unit/mL 1300, injection Routine 500 Units heparin 2021- No [id number] 500U 500 Units, [facility] lock flush 04-07 IV Push, ity of (HEPARIN 17:04: 17:06 ONCE, 1 [place] LOCKFLUSH(P 00 :00 dose, On Medi janet ORCINE)(PF) Fri Branch ) 100 04/07/22 at unit/mL 1215, injection Routine 500 Units lactated 2021-0 Yes 1000mL at 42 Univer [...] Routine, Pain (scale 4-6), PACU FENTanyl PF 2021-0 2021- No 25ug 25 mcg, [facility] (SUBLIMAZE 03-15-07 Slow IV ity o f (PF)) 16:27: 19:42 Push, [place] injection 49 :50 Q5MIN PRN, Medi janet 25 mcg 4 doses, Branch Starting on Sun03/15/22 at 1127, Until Sun03/15/22 at 1442, Routine, Pain (scale 7-10), PACU FENTanyl PF 2021-0 2021- No 25ug 25 mcg, [facility] (SUBLIMAZE 03-15 09-07 Slow IV ity o f (PF)) [...] ity of e-pf 14:09: 16:16 on Sun [place] (SENSORCAIN 00 :07 03/15/22 at [facility] ical E 0909, Branch W/EPINEPHRI Intra-op NE) [...] mg by ity of ORAL) 12:42: mouth [address] [place] [address] (two) Medical times Branch daily. levetiracet Yes 500mg Take 500 U nivers am (KEPPRA 9-07 mg by ity of ORAL) 12:42: mouth 2 [place] 48 (two) Medical times Branch daily. levetiracet 0 Yes 500mg Take 500 U nivers am (KEPPRA 9-07 mg by ity of ORAL) 12:42: mouth [address] [place] [address] (two) Medical times Branch daily. levetiracet 2022-0 Yes 500mg Take 500 U nivers am (KEPPRA 9-07 mg by ity of ORAL) 12:42: mouth [address] [place] [address] (two) Medical times Branch daily. levetiracet 2022-0 Yes 500mg Take 500 U nivers am (KEPPRA 9-07 mg by ity of ORAL) 12:42: mouth [address] [place] [address] (two) Medical times Branch daily. levetiracet 2022-0 Yes 500mg Take 500 U nivers am (KEPPRA 9-07 mg by ity of ORAL) 12:42: mouth [address] [place] [address] (two) Medical times Branch daily. levetiracet 2022-0 Yes 500mg Take 500 U nivers am (KEPPRA 9-07 mg by ity of ORAL) 12:42: [place] [address] (two) Medical times Branch daily. levetiracet 2022-0 Yes 500mg Take 500 U nivers am (KEPPRA 9-07 mg by ity of ORAL) 12:42: mouth [address] [place] [address] (two) Medical times Branch daily. levetiracet 2022-0 Yes 500mg Take 500 U nivers am (KEPPRA 9-07 mg by ity of ORAL) 12:42: [place] [address] (two) Medical times Branch daily. levetiracet 2022-0 Yes 500mg Take 500 U nivers am (KEPPRA 9-07 mg by ity of ORAL) 12:42: [place] [address] (two) Medical times Branch daily. levetiracet 2022-0 Yes 500mg Take 500 U nivers am (KEPPRA 9-07 mg by ity of ORAL) 12:42: mouth [address] [place] [address] (two) Medical times Branch daily. levetiracet 2022-0 Yes 500mg Take 500 U nivers am (KEPPRA 9-07 mg by ity of ORAL) 12:42: mouth [address] [place] [address] (two) Medical times Branch daily. levetiracet 2022-0 Yes 500mg Take 500 U nivers am (KEPPRA 9-07 mg by ity of ORAL) 12:42: mouth [address] [place] [address] (two) Medical times Branch daily. levetiracet 2022-0 Yes 500mg Take 500 U nivers am (KEPPRA 9-07 mg by ity of ORAL) 12:42: mouth [address] [place] [address] (two) Medical times Branch daily. levetiracet 2022-0 Yes 500mg Take 500 U nivers am (KEPPRA 9-07 mg by ity of ORAL) 12:42: mouth [address] [place] [address] (two) Medical times Branch daily. levetiracet 2022-0 Yes 500mg Take 500 U nivers am (KEPPRA 9-07 mg by ity of ORAL) 12:42: mouth [address] [place] [address] (two) Medical times Branch daily. levetiracet 2022-0 Yes 500mg Take 500 U nivers am (KEPPRA 9-07 mg by ity of ORAL) 12:42: mouth [address] [place] [address] (two) Medical times Branch daily. levetiracet 2022-0 Yes 500mg Take 500 U nivers am (KEPPRA 9-07 mg by ity of ORAL) 12:42: mouth [address] [place] [address] (two) Medical times Branch daily. levetiracet 2022-0 Yes 500mg Take 500 U nivers am (KEPPRA 9-07 mg by ity of ORAL) 12:42: mouth [address] [place] [address] (two) Medical times Branch daily. levetiracet 2022-0 Yes 500mg Take 500 U nivers am (KEPPRA 9-07 mg by ity of ORAL) 12:42: [place] [address] (two) Medical times Branch daily. levetiracet 2022-0 Yes 500mg Take 500 U nivers am (KEPPRA 9-07 mg by ity of ORAL) 12:42: mouth [address] [place] [address] (two) Medical times Branch daily. levetiracet 2022-0 Yes 500mg Take 500 U nivers am (KEPPRA 9-07 mg by ity of ORAL) 12:42: mouth [address] [place] [address] (two) Medical times Branch daily. levetiracet 2022-0 Yes 500mg Take 500 U nivers am (KEPPRA 9-07 mg by ity of ORAL) 12:42: mouth [address] [place] [address] (two) Medical times Branch daily. levetiracet 2022-0 Yes 500mg Take 500 U nivers am (KEPPRA 9-07 mg by ity of ORAL) 12:42: mouth 2 [place] [address] (two) Medical times Branch daily. levetiracet 2022-0 Yes 500mg Take 500 U nivers am (KEPPRA 9-07 mg by ity of ORAL) 12:42: mouth 2 [place] [address] (two) Medical times Branch daily. levetiracet 2022-0 Yes 500mg Take 500 U nivers am (KEPPRA 9-07 mg by ity of ORAL) 12:42: mouth 2 [place] [address] (two) Medical times Branch daily. levetiracet 2022-0 Yes 500mg Take 500 U nivers am (KEPPRA 9-07 mg by ity of ORAL) 12:42: mouth 2 [place] [address] (two) Medical times Branch daily. levetiracet 2022-0 Yes 500mg Take 500 U nivers am (KEPPRA 9-07 mg by ity of ORAL) 12:42: mouth [address] [place] [address] (two) Medical times Branch daily. levetiracet 2-0 Yes 500mg Take 500 U nivers am (KEPPRA 9-07 mg by ity of ORAL) 12:42: mouth 2 [place] [address] (two) Medical times Branch daily. furosemide 2021-2021- No 10mg Take 10 mg [facility] (LASIX 03-15 by mouth ity of ORAL) 11:57: 00:00 daily. As [place] 57 :00 needed Medical Branch furosemide 2021-0 2021- No 10mg Take 10 mg [facility] (LASIX 03-15 by mouth ity of ORAL) 11:57: 00:00 daily. As [place] 57 :00 needed Medical Branch HYDROcodone 2021-2021- No [id number] 1{tbl} Take 1 U nivers -acetaminop 03-15 tablet by it y of hen (NORCO) 00:00: 04:59 [place] 5-325 mg 00 :00 every 6 Medical tablet (six) Branch hours as needed for Pain (scale 7-10) for up to 7 days. Indication s: acute pain ketorolac 2021-0 2021- No [id number] 10mg Take 1 [facility] 10 mg 03-15 tablet by ity of tablet 00:00: 04:59 mouth [place] 00 :00 every 6 Medical (six) Branch hours as needed for Alternate with [place] for pain scale 4-6 for up to 7 days. HYDROcodone 2021-0 2021- No [id number] 1{tbl} Take 1 U nivers -acetaminop 9-07 09-15 tablet by it y of hen (NORCO) 00:00: 04:59 [place] 5-325 mg 00 :00 every 6 Medical tablet (six) Branch hours as needed for Pain (scale 7-10) for up to 7 days. Indication s: acute pain ketorolac 2021-0 2021- No [id number] 10mg Take 1 [facility] 10 mg 9- 09-15 tablet by ity of tablet 00:00: 04:59 mouth [place] 00 :00 every 6 Medical (six) Branch hours as needed for Alternate with [place] for pain scale 4-6 for up to 7 days. HYDROcodone 2021-0 2021- No [id number] 1{tbl} Take 1 U nivers -acetaminop 9-07 09-15 tablet by it y of hen (NORCO) 00:00: 04:59 [place] 5-325 mg 00 :00 every 6 Medical tablet (six) Branch hours as needed for Pain (scale 7-10) for up to 7 days. Indication s: acute pain ketorolac 2-0 2021- No [id number] 10mg Take 1 [facility] 10 mg 9- 09-15 tablet by ity of tablet 00:00: 04:59 mouth [place] 00 :00 every 6 Medical (six) Branch hours as needed for Alternate with [place] for pain scale 4-6 for up to 7 days. HYDROcodone 2021-0 2021- No [id number] 1{tbl} Take 1 U nivers -acetaminop 9-07 09-15 tablet by it y of hen (NORCO) 00:00: 04:59 [place] 5-325 mg 00 :00 every 6 Medical tablet (six) Branch hours as needed for Pain (scale 7-10) for up to 7 days. Indication s: acute pain ketorolac 2022-0 2- No [id number] 10mg Take 1 [facility] 10 mg 9-07 09-15 tablet by ity of tablet 00:00: 04:59 mouth [place] 00 :00 every 6 Medical (six) Branch hours as needed for Alternate with [place] for pain scale 4-6 for up to 7 days. traMADoL 50 2021-0 2021- No [id number] 50mg Take 1 Uni vers mg tablet 03-15 tablet by ity of 00:00: 00:00 mouth [place] 00 :00 every 6 Medical (six) Branch hours for 7 days. Indication s: acute pain traMADoL 50 2021-0 2021- No [id number] 50mg Take 1 Uni vers mg tablet 03-15 tablet by ity of 00:00: 00:00 mouth [place] 00 :00 every 6 Medical (six) Branch hours for 7 days. Indication s: acute pain midodrine 5 2021-0 2021- No 5mg Take 5 mg [facility] mg tablet 03-08 by mouth ity o f 14:14: 00:00 daily. As [place] 56 :00 needed Medical Branch midodrine 5 2021-0 2021- No 5mg Take 5 mg [facility] mg tablet 03-08 by mouth ity o f 14:14: 00:00 daily. As [place] 56 :00 needed Medical Branch midodrine 5 2021-0 2021- No 5mg Take 5 mg [facility] mg tablet 03-08 by mouth ity o f 14:14: 00:00 daily. As [place] 56 :00 needed Medical Branch furosemide 2021-0 Yes 10mg Take 10 mg U nivers (LASIX 8-31 by mouth ity of ORAL) 14:13: daily. As [place] [address] needed Medical Branch levetiracet 2021-0 Yes 500mg Take 500 U nivers am (KEPPRA 8-31 mg by ity of ORAL) 14:13: mouth 2 [place] [address] (two) Medical times Branch daily. furosemide 2022-0 Yes 10mg Take 10 mg U nivers (LASIX 8-31 by mouth ity of ORAL) 14:13: daily. As [place] [address] needed Medical Branch levetiracet 202-0 Yes 500mg Take 500 U nivers am (KEPPRA 8-31 mg by ity of ORAL) 14:13: mouth 2 [place] [address] (two) Medical times Branch daily. furosemide 2022-0 Yes 10mg Take 10 mg U nivers (LASIX 8-31 by mouth ity of ORAL) 14:13: daily. As [place] 54 needed Medical Branch levetiracet Yes 500mg Take 500 U nivers am (KEPPRA 8-31 mg by ity of ORAL) 14:13: mouth 2 [place] 54 (two) Medical times Branch daily. nadoloL 40 2021-0 2021- No 40mg Take 40 mg [facility] mg tablet 8-07 03-30 by mouth ity o f 17:08: 00:00 daily. [place] 23 :00 Medical Branch nadoloL 40 2021-0 2021- No 40mg Take 40 mg [facility] mg tablet 8-07 03-30 by mouth ity o f 17:08: 00:00 daily. [place] 23 :00 Medical Branch nadoloL 40 2021-0 Yes [id number] 40mg Take 1 [facility] mg tablet 8-30 tablet by ity o f 00:00: mouth in [place] 00 the Medical morning. Branch promethazin 0 Yes [id number] 50mg Take 1 [facility] e 50 mg 8-30 tablet by ity of tablet 00:00: mouth [place] 00 every 8 Medical (eight) Branch hours as needed for Nausea and Vomiting (N/V). TAKE 1 TABLET BY MOUTH EVERY 6 HOURS NEEDED FOR NAUSEA AND VOMITING nadoloL 40 2021-0 Yes [id number] 40mg Take 1 [facility] mg tablet 8-30 tablet by ity o f 00:00: mouth in [place] 00 the Medical morning. Branch promethazin 0 Yes [id number] 50mg Take 1 [facility] e 50 mg 8-30 tablet by ity of tablet 00:00: mouth [place] 00 every 8 Medical (eight) Branch hours as needed for Nausea and Vomiting (N/V). TAKE 1 TABLET BY MOUTH EVERY 6 HOURS NEEDED FOR NAUSEA AND VOMITING nadoloL 40 2021-0 Yes [id number] 40mg Take 1 [facility] mg tablet 8-30 tablet by ity o f 00:00: mouth in [place] 00 the Medical morning. Branch promethazin 2021-0 Yes [id number] 50mg Take 1 [facility] e 50 mg 8-30 tablet by ity of tablet 00:00: mouth [place] 00 every 8 Medical (eight) Branch hours as needed for Nausea and Vomiting (N/V). TAKE 1 TABLET BY MOUTH EVERY 6 HOURS NEEDED FOR NAUSEA AND VOMITING nadoloL 40 2021-0 Yes [id number] 40mg Take 1 [facility] mg tablet 8-30 tablet by ity o f 00:00: mouth in [place] 00 the Medical morning. Branch promethazin 2-0 Yes [id number] 50mg Take 1 [facility] e 50 mg 8-30 tablet by ity of tablet 00:00: mouth [place] 00 every 8 Medical (eight) Branch hours as needed for Nausea and Vomiting (N/V). TAKE 1 TABLET BY MOUTH EVERY 6 HOURS NEEDED FOR NAUSEA AND VOMITING nadoloL 40 2-0 Yes [id number] 40mg Take 1 [facility] mg tablet 8-30 tablet by ity o f 00:00: mouth in [place] 00 the Medical morning. Branch promethazin 2021-0 Yes [id number] 50mg Take 1 [facility] e 50 mg 8-30 tablet by ity of tablet 00:00: mouth [place] 00 every 8 Medical (eight) Branch hours as needed for Nausea and Vomiting (N/V). TAKE 1 TABLET BY MOUTH EVERY 6 HOURS NEEDED FOR NAUSEA AND VOMITING nadoloL 40 2021-0 Yes [id number] 40mg Take 1 [facility] mg tablet 8-30 tablet by ity o f 00:00: mouth in [place] 00 the Medical morning. Branch promethazin 2021-0 Yes [id number] 50mg Take 1 [facility] e 50 mg 8-30 tablet by ity of tablet 00:00: mouth [place] 00 every 8 Medical (eight) Branch hours as needed for Nausea and Vomiting (N/V). TAKE 1 TABLET BY MOUTH EVERY 6 HOURS NEEDED FOR NAUSEA AND VOMITING nadoloL 40 2-0 Yes [id number] 40mg Take 1 [facility] mg tablet 8-30 tablet by ity o f 00:00: mouth in [place] 00 the Medical morning. Branch promethazin 2-0 Yes [id number] 50mg Take 1 [facility] e 50 mg 8-30 tablet by ity of tablet 00:00: mouth [place] 00 every 8 Medical (eight) Branch hours as needed for Nausea and Vomiting (N/V). TAKE 1 TABLET BY MOUTH EVERY 6 HOURS NEEDED FOR NAUSEA AND VOMITING nadoloL 40 2022-0 Yes [id number] 40mg Take 1 [facility] mg tablet 8-30 tablet by ity o f 00:00: mouth in [place] 00 the Medical morning. Branch promethazin 2022-0 Yes [id number] 50mg Take 1 [facility] e 50 mg 8-30 tablet by ity of tablet 00:00: mouth [place] 00 every 8 Medical (eight) Branch hours as needed for Nausea and Vomiting (N/V). TAKE 1 TABLET BY MOUTH EVERY 6 HOURS NEEDED FOR NAUSEA AND VOMITING nadoloL 40 2021-0 Yes [id number] 40mg Take 1 [facility] mg tablet 8-30 tablet by ity o f 00:00: mouth in [place] 00 the Medical morning. Branch promethazin 2021-0 Yes [id number] 50mg Take 1 [facility] e 50 mg 8-30 tablet by ity of tablet 00:00: mouth [place] 00 every 8 Medical (eight) Branch hours as needed for Nausea and Vomiting (N/V). TAKE 1 TABLET BY MOUTH EVERY 6 HOURS NEEDED FOR NAUSEA AND VOMITING nadoloL 40 2021-0 Yes [id number] 40mg Take 1 [facility] mg tablet 8-30 tablet by ity o f 00:00: mouth in [place] 00 the Medical morning. Branch promethazin 2021-0 Yes [id number] 50mg Take 1 [facility]-30 tablet by [facility] tablet 00:00: mouth [place] 00 every 8 Medical (eight) Branch hours as needed for Nausea and Vomiting (N/V). TAKE 1 TABLET BY MOUTH EVERY 6 HOURS NEEDED FOR NAUSEA AND VOMITING nadoloL 40 2021-0 Yes [id number] 40mg Take 1 [facility] tablet 8-30 tablet by [facility] f 00:00: mouth in [place] 00 the Medical morning. Branch promethazin 2021-0 Yes [id number] 50mg Take 1 [facility] mg 8-30 tablet by [facility] tablet 00:00: mouth [place] 00 every 8 Medical (eight) Branch hours as needed for Nausea and Vomiting (N/V). TAKE 1 TABLET BY MOUTH EVERY 6 HOURS NEEDED FOR NAUSEA AND VOMITING nadoloL 40 2021-0 Yes [id number] 40mg Take 1 [facility] mg tablet 8-30 tablet by [facility] f 00:00: mouth in [place] 00 the Medical morning. Branch promethazin 2021-0 Yes [id number] 50mg Take 1 [facility] 50 mg 8-30 tablet by [facility] tablet 00:00: mouth [place] 00 every 8 Medical (eight) Branch hours as needed for Nausea and Vomiting (N/V). TAKE 1 TABLET BY MOUTH EVERY 6 HOURS NEEDED FOR NAUSEA AND VOMITING nadoloL 40 2021-0 Yes [id number] 40mg Take 1 [facility] mg tablet 8-30 tablet by [facility] f 00:00: mouth in [place] 00 the Medical morning. Branch promethazin 2-0 Yes [id number] 50mg Take 1 [facility] 50 mg 8-30 tablet by [facility] tablet 00:00: mouth [place] 00 every 8 Medical (eight) Branch hours as needed for Nausea and Vomiting (N/V). TAKE 1 TABLET BY MOUTH EVERY 6 HOURS NEEDED FOR NAUSEA AND VOMITING nadoloL 40 2-0 Yes [id number] 40mg Take 1 [facility] mg tablet 8-30 tablet by [facility] f 00:00: mouth in [place] 00 the Medical morning. Branch promethazin 2021-0 Yes [id number] 50mg Take 1 [facility] 50 mg 8-30 tablet by [facility] tablet 00:00: mouth [place] 00 every 8 Medical (eight) Branch hours as needed for Nausea and Vomiting (N/V). TAKE 1 TABLET BY MOUTH EVERY 6 HOURS NEEDED FOR NAUSEA AND VOMITING nadoloL 40 2021-0 Yes [id number] 40mg Take 1 [facility] mg tablet 8-30 tablet by [facility] f 00:00: mouth in [place] 00 the Medical morning. Branch promethazin 2021-0 Yes [id number] 50mg Take 1 [facility] 50 mg 8-30 tablet by [facility] tablet 00:00: mouth [place] 00 every 8 Medical (eight) Branch hours as needed for Nausea and Vomiting (N/V). TAKE 1 TABLET BY MOUTH EVERY 6 HOURS NEEDED FOR NAUSEA AND VOMITING nadoloL 40 2-0 Yes [id number] 40mg Take 1 [facility] mg tablet 8-30 tablet by [facility] f 00:00: mouth in [place] 00 the Medical morning. Branch promethazin 2-0 Yes [id number] 50mg Take 1 [facility] 50 mg 8-30 tablet by [facility] tablet 00:00: mouth [place] 00 every 8 Medical (eight) Branch hours as needed for Nausea and Vomiting (N/V). TAKE 1 TABLET BY MOUTH EVERY 6 HOURS NEEDED FOR NAUSEA AND VOMITING nadoloL 40 2-0 Yes [id number] 40mg Take 1 [facility] mg tablet 8-30 tablet by [facility] o f 00:00: mouth in [place] 00 the Medical morning. Branch promethazin 2-0 Yes [id number] 50mg Take 1 [facility] 50 mg 8-30 tablet by [facility] tablet 00:00: mouth [place] 00 every 8 Medical (eight) Branch hours as needed for Nausea and Vomiting (N/V). TAKE 1 TABLET BY MOUTH EVERY 6 HOURS NEEDED FOR NAUSEA AND VOMITING nadoloL 40 2021-0 Yes [id number] 40mg Take 1 [facility] mg tablet 8-30 tablet by [facility] o f 00:00: mouth in [place] 00 the Medical morning. Branch promethazin 2021-0 Yes [id number] 50mg Take 1 [facility] 50 mg 8-30 tablet by [facility] tablet 00:00: mouth [place] 00 every 8 Medical (eight) Branch hours as needed for Nausea and Vomiting (N/V). TAKE 1 TABLET BY MOUTH EVERY 6 HOURS NEEDED FOR NAUSEA AND VOMITING nadoloL 40 2021-0 Yes [id number] 40mg Take 1 [facility] mg tablet 8-30 tablet by [facility] o f 00:00: mouth in [place] 00 the Medical morning. Branch promethazin 2021-0 Yes [id number] 50mg Take 1 [facility] 50 mg 8-30 tablet by [facility] tablet 00:00: mouth [place] 00 every 8 Medical (eight) Branch hours as needed for Nausea and Vomiting (N/V). TAKE 1 TABLET BY MOUTH EVERY 6 HOURS NEEDED FOR NAUSEA AND VOMITING nadoloL 40 2021-0 Yes [id number] 40mg Take 1 [facility] mg tablet 8-30 tablet by [facility] o f 00:00: mouth in [place] 00 the Medical morning. Branch promethazin 2021-0 Yes [id number] 50mg Take 1 [facility] 50 mg 8-30 tablet by [facility] tablet 00:00: mouth [place] 00 every 8 Medical (eight) Branch hours as needed for Nausea and Vomiting (N/V). TAKE 1 TABLET BY MOUTH EVERY 6 HOURS NEEDED FOR NAUSEA AND VOMITING nadoloL 40 2021-0 Yes [id number] 40mg Take 1 [facility] mg tablet 8-30 tablet by [facility] o f 00:00: mouth in [place] 00 the Medical morning. Branch promethazin 2021-0 Yes [id number] 50mg Take 1 [facility] 50 mg 8-30 tablet by [facility] tablet 00:00: mouth [place] 00 every 8 Medical (eight) Branch hours as needed for Nausea and Vomiting (N/V). TAKE 1 TABLET BY MOUTH EVERY 6 HOURS NEEDED FOR NAUSEA AND VOMITING nadoloL 40 2021-0 Yes [id number] 40mg Take 1 [facility] mg tablet 8-30 tablet by [facility] o f 00:00: mouth in [place] 00 the Medical morning. Branch promethazin 2021-0 Yes [id number] 50mg Take 1 [facility] 50 mg 8-30 tablet by [facility] tablet 00:00: mouth [place] 00 every 8 Medical (eight) Branch hours as needed for Nausea and Vomiting (N/V). TAKE 1 TABLET BY MOUTH EVERY 6 HOURS NEEDED FOR NAUSEA AND VOMITING nadoloL 40 2-0 Yes [id number] 40mg Take 1 [facility] mg tablet 8-30 tablet by [facility] o f 00:00: mouth in [place] 00 the Medical morning. Branch promethazin 2021-0 Yes [id number] 50mg Take 1 [facility] 50 mg 8-30 tablet by [facility] tablet 00:00: mouth [place] 00 every 8 Medical (eight) Branch hours as needed for Nausea and Vomiting (N/V). TAKE 1 TABLET BY MOUTH EVERY 6 HOURS NEEDED FOR NAUSEA AND VOMITING nadoloL 40 2021-0 Yes [id number] 40mg Take 1 [facility] mg tablet 8-30 tablet by [facility] o f 00:00: mouth in [place] 00 the Medical morning. Branch promethazin 2021-0 Yes [id number] 50mg Take 1 [facility] 50 mg 8-30 tablet by [facility] tablet 00:00: mouth [place] 00 every 8 Medical (eight) Branch hours as needed for Nausea and Vomiting (N/V). TAKE 1 TABLET BY MOUTH EVERY 6 HOURS NEEDED FOR NAUSEA AND VOMITING nadoloL 40 2-0 Yes [id number] 40mg Take 1 [facility] mg tablet 8-30 tablet by [facility] o f 00:00: mouth in [place] 00 the Medical morning. Branch promethazin 2021-0 Yes [id number] 50mg Take 1 [facility] 50 mg 8-30 tablet by [facility] tablet 00:00: mouth [place] 00 every 8 Medical (eight) Branch hours as needed for Nausea and Vomiting (N/V). TAKE 1 TABLET BY MOUTH EVERY 6 HOURS NEEDED FOR NAUSEA AND VOMITING nadoloL 40 2-0 Yes [id number] 40mg Take 1 [facility] mg tablet 8-30 tablet by [facility] o f 00:00: mouth in [place] 00 the Medical morning. Branch promethazin 2-0 Yes [id number] 50mg Take 1 [facility] 50 mg 8-30 tablet by [facility] tablet 00:00: mouth [place] 00 every 8 Medical (eight) Branch hours as needed for Nausea and Vomiting (N/V). TAKE 1 TABLET BY MOUTH EVERY 6 HOURS NEEDED FOR NAUSEA AND VOMITING nadoloL 40 2021-0 Yes [id number] 40mg Take 1 [facility] mg tablet 8-30 tablet by [facility] o f 00:00: mouth in [place] 00 the Medical morning. Branch promethazin 2021-0 Yes [id number] 50mg Take 1 [facility] 50 mg 8-30 tablet by [facility] tablet 00:00: mouth [place] 00 every 8 Medical (eight) Branch hours as needed for Nausea and Vomiting (N/V). TAKE 1 TABLET BY MOUTH EVERY 6 HOURS NEEDED FOR NAUSEA AND VOMITING nadoloL 40 2-0 Yes [id number] 40mg Take 1 [facility] mg tablet 8-30 tablet by [facility] o f 00:00: mouth in [place] 00 the Medical morning. Branch promethazin 2021-0 Yes [id number] 50mg Take 1 [facility] 50 mg 8-30 tablet by [facility] tablet 00:00: mouth [place] 00 every 8 Medical (eight) Branch hours as needed for Nausea and Vomiting (N/V). TAKE 1 TABLET BY MOUTH EVERY 6 HOURS NEEDED FOR NAUSEA AND VOMITING nadoloL 40 2021-0 Yes [id number] 40mg Take 1 [facility] mg tablet 8-30 tablet by [facility] o f 00:00: mouth in [place] 00 the Medical morning. Branch promethazin 2021-0 Yes [id number] 50mg Take 1 [facility] 50 mg 8-30 tablet by [facility] tablet 00:00: mouth [place] 00 every 8 Medical (eight) Branch hours as needed for Nausea and Vomiting (N/V). TAKE 1 TABLET BY MOUTH EVERY 6 HOURS NEEDED FOR NAUSEA AND VOMITING nadoloL 40 2-0 Yes [id number] 40mg Take 1 [facility] mg tablet 8-30 tablet by [facility] o f 00:00: mouth in [place] 00 the Medical morning. Branch promethazin 2021-0 Yes [id number] 50mg Take 1 [facility] 50 mg 8-30 tablet by [facility] tablet 00:00: mouth [place] 00 every 8 Medical (eight) Branch hours as needed for Nausea and Vomiting (N/V). TAKE 1 TABLET BY MOUTH EVERY 6 HOURS NEEDED FOR NAUSEA AND VOMITING promethazin 2-0 Yes [id number] 50mg Take 1 [facility] 50 mg 8-30 tablet by [facility] tablet 00:00: mouth [place] 00 every 8 Medical (eight) Branch hours as needed for Nausea and Vomiting (N/V). TAKE 1 TABLET BY MOUTH EVERY 6 HOURS NEEDED FOR NAUSEA AND VOMITING promethazin 2022-0 Yes [id number] 50mg Take 1 [facility] 50 mg 8-30 tablet by [facility] tablet 00:00: mouth [place] 00 every 8 Medical (eight) Branch hours as needed for Nausea and Vomiting (N/V). TAKE 1 TABLET BY MOUTH EVERY 6 HOURS NEEDED FOR NAUSEA AND VOMITING promethazin 2022-0 Yes [id number] 50mg Take 1 [facility] 50 mg 8-30 tablet by [facility] tablet 00:00: mouth [place] 00 every 8 Medical (eight) Branch hours as needed for Nausea and Vomiting (N/V). TAKE 1 TABLET BY MOUTH EVERY 6 HOURS NEEDED FOR NAUSEA AND VOMITING promethazin 2022-0 Yes [id number] 50mg Take 1 [facility] 50 mg 8-30 tablet by [facility] tablet 00:00: mouth [place] 00 every 8 Medical (eight) Branch hours as needed for Nausea and Vomiting (N/V). TAKE 1 TABLET BY MOUTH EVERY 6 HOURS NEEDED FOR NAUSEA AND VOMITING promethazin 2022-0 Yes [id number] 50mg Take 1 [facility] 50 mg 8-30 tablet by [facility] tablet 00:00: mouth [place] 00 every 8 Medical (eight) Branch hours as needed for Nausea and Vomiting (N/V). TAKE 1 TABLET BY MOUTH EVERY 6 HOURS NEEDED FOR NAUSEA AND VOMITING promethazin 2022-0 Yes [id number] 50mg Take 1 [facility] 50 mg 8-30 tablet by [facility] tablet 00:00: mouth [place] 00 every 8 Medical (eight) Branch hours as needed for Nausea and Vomiting (N/V). TAKE 1 TABLET BY MOUTH EVERY 6 HOURS NEEDED FOR NAUSEA AND VOMITING promethazin 2022-0 Yes [id number] 50mg Take 1 [facility] 50 mg 8-30 tablet by [facility] tablet 00:00: mouth [place] 00 every 8 Medical (eight) Branch hours as needed for Nausea and Vomiting (N/V). TAKE 1 TABLET BY MOUTH EVERY 6 HOURS NEEDED FOR NAUSEA AND VOMITING promethazin 2022-0 Yes [id number] 50mg Take 1 [facility] 50 mg 8-30 tablet by [facility] tablet 00:00: mouth [place] 00 every 8 Medical (eight) Branch hours as needed for Nausea and Vomiting (N/V). TAKE 1 TABLET BY MOUTH EVERY 6 HOURS NEEDED FOR NAUSEA AND VOMITING promethazin 2022-0 Yes [id number] 50mg Take 1 [facility] 50 mg 8-30 tablet by [facility] tablet 00:00: mouth [place] 00 every 8 Medical (eight) Branch hours as needed for Nausea and Vomiting (N/V). TAKE 1 TABLET BY MOUTH EVERY 6 HOURS NEEDED FOR NAUSEA AND VOMITING promethazin 2022-0 Yes [id number] 50mg Take 1 [facility] 50 mg 8-30 tablet by [facility] tablet 00:00: mouth [place] 00 every 8 Medical (eight) Branch hours as needed for Nausea and Vomiting (N/V). TAKE 1 TABLET BY MOUTH EVERY 6 HOURS NEEDED FOR NAUSEA AND VOMITING promethazin 2022-0 Yes [id number] 50mg Take 1 [facility] 50 mg 8-30 tablet by [facility] tablet 00:00: mouth [place] 00 every 8 Medical (eight) Branch hours as needed for Nausea and Vomiting (N/V). TAKE 1 TABLET BY MOUTH EVERY 6 HOURS NEEDED FOR NAUSEA AND VOMITING promethazin 2022-0 Yes [id number] 50mg Take 1 [facility] 50 mg 8-30 tablet by [facility] tablet 00:00: mouth [place] 00 every 8 Medical (eight) Branch hours as needed for Nausea and Vomiting (N/V). TAKE 1 TABLET BY MOUTH EVERY 6 HOURS NEEDED FOR NAUSEA AND VOMITING promethazin 2022-0 Yes [id number] 50mg Take 1 [facility] 50 mg 8-30 tablet by [facility] tablet 00:00: mouth [place] 00 every 8 Medical (eight) Branch hours as needed for Nausea and Vomiting (N/V). TAKE 1 TABLET BY MOUTH EVERY 6 HOURS NEEDED FOR NAUSEA AND VOMITING promethazin 2022-0 Yes [id number] 50mg Take 1 [facility] 50 mg 8-30 tablet by [facility] tablet 00:00: mouth [place] 00 every 8 Medical (eight) Branch hours as needed for Nausea and Vomiting (N/V). TAKE 1 TABLET BY MOUTH EVERY 6 HOURS NEEDED FOR NAUSEA AND VOMITING promethazin 2022-0 Yes [id number] 50mg Take 1 [facility] 50 mg 8-30 tablet by [facility] tablet 00:00: mouth [place] 00 every 8 Medical (eight) Branch hours as needed for Nausea and Vomiting (N/V). TAKE 1 TABLET BY MOUTH EVERY 6 HOURS NEEDED FOR NAUSEA AND VOMITING promethazin 2022-0 Yes [id number] 50mg Take 1 [facility] 50 mg 8-30 tablet by [facility] tablet 00:00: mouth [place] 00 every 8 Medical (eight) Branch hours as needed for Nausea and Vomiting (N/V). TAKE 1 TABLET BY MOUTH EVERY 6 HOURS NEEDED FOR NAUSEA AND VOMITING promethazin 2022-0 Yes [id number] 50mg Take 1 [facility] 50 mg 8-30 tablet by [facility] tablet 00:00: mouth [place] 00 every 8 Medical (eight) Branch hours as needed for Nausea and Vomiting (N/V). TAKE 1 TABLET BY MOUTH EVERY 6 HOURS NEEDED FOR NAUSEA AND VOMITING promethazin 2022-0 Yes [id number] 50mg Take 1 [facility] 50 mg 8-30 tablet by [facility] tablet 00:00: mouth [place] 00 every 8 Medical (eight) Branch hours as needed for Nausea and Vomiting (N/V). TAKE 1 TABLET BY MOUTH EVERY 6 HOURS NEEDED FOR NAUSEA AND VOMITING promethazin 2-0 Yes [id number] 50mg Take 1 [facility] 50 mg 8-30 tablet by [facility] tablet 00:00: mouth [place] 00 every 8 Medical (eight) Branch hours as needed for Nausea and Vomiting (N/V). TAKE 1 TABLET BY MOUTH EVERY 6 HOURS NEEDED FOR NAUSEA AND VOMITING promethazin 2-0 Yes [id number] 50mg Take 1 [facility] 50 mg 8-30 tablet by [facility] tablet 00:00: mouth [place] 00 every 8 Medical (eight) Branch hours as needed for Nausea and Vomiting (N/V). TAKE 1 TABLET BY MOUTH EVERY 6 HOURS NEEDED FOR NAUSEA AND VOMITING promethazin 2022-0 Yes [id number] 50mg Take 1 [facility] 50 mg 8-30 tablet by [facility] tablet 00:00: mouth [place] 00 every 8 Medical (eight) Branch hours as needed for Nausea and Vomiting (N/V). TAKE 1 TABLET BY MOUTH EVERY 6 HOURS NEEDED FOR NAUSEA AND VOMITING promethazin 2022-0 Yes [id number] 50mg Take 1 [facility] 50 mg 8-30 tablet by [facility] tablet 00:00: mouth [place] 00 every 8 Medical (eight) Branch hours as needed for Nausea and Vomiting (N/V). TAKE 1 TABLET BY MOUTH EVERY 6 HOURS NEEDED FOR NAUSEA AND VOMITING promethazin 2022-0 Yes [id number] 50mg Take 1 [facility] 50 mg 8-30 tablet by [facility] tablet 00:00: mouth [place] 00 every 8 Medical (eight) Branch hours as needed for Nausea and Vomiting (N/V). TAKE 1 TABLET BY MOUTH EVERY 6 HOURS NEEDED FOR NAUSEA AND VOMITING promethazin 2022-0 Yes [id number] 50mg Take 1 [facility] 50 mg 8-30 tablet by [facility] tablet 00:00: mouth [place] 00 every 8 Medical (eight) Branch hours as needed for Nausea and Vomiting (N/V). TAKE 1 TABLET BY MOUTH EVERY 6 HOURS NEEDED FOR NAUSEA AND VOMITING promethazin 2022-0 Yes [id number] 50mg Take 1 [facility] 50 mg 8-30 tablet by [facility] tablet 00:00: mouth [place] 00 every 8 Medical (eight) Branch hours as needed for Nausea and Vomiting (N/V). TAKE 1 TABLET BY MOUTH EVERY 6 HOURS NEEDED FOR NAUSEA AND VOMITING promethazin 2021-0 Yes [id number] 50mg Take 1 [facility] 50 mg 8-30 tablet by [facility] tablet 00:00: mouth [place] 00 every 8 Medical (eight) Branch hours as needed for Nausea and Vomiting (N/V). TAKE 1 TABLET BY MOUTH EVERY 6 HOURS NEEDED FOR NAUSEA AND VOMITING promethazin 2021-0 Yes [id number] 50mg Take 1 [facility] 50 mg 8-30 tablet by [facility] tablet 00:00: mouth [place] 00 every 8 Medical (eight) Branch hours as needed for Nausea and Vomiting (N/V). TAKE 1 TABLET BY MOUTH EVERY 6 HOURS NEEDED FOR NAUSEA AND VOMITING promethazin 2021-0 Yes [id number] 50mg Take 1 [facility] 50 mg 8-30 tablet by [facility] tablet 00:00: mouth [place] 00 every 8 Medical (eight) Branch hours as needed for Nausea and Vomiting (N/V). TAKE 1 TABLET BY MOUTH EVERY 6 HOURS NEEDED FOR NAUSEA AND VOMITING promethazin 2-0 Yes [id number] 50mg Take 1 [facility] 50 mg 8-30 tablet by [facility] tablet 00:00: mouth [place] 00 every 8 Medical (eight) Branch hours as needed for Nausea and Vomiting (N/V). TAKE 1 TABLET BY MOUTH EVERY 6 HOURS NEEDED FOR NAUSEA AND VOMITING promethazin 2022-0 Yes [id number] 50mg Take 1 [facility] 50 mg 8-30 tablet by [facility] tablet 00:00: mouth [place] 00 every 8 Medical (eight) Branch hours as needed for Nausea and Vomiting (N/V). TAKE 1 TABLET BY MOUTH EVERY 6 HOURS NEEDED FOR NAUSEA AND VOMITING promethazin 2022-0 Yes [id number] 50mg Take 1 [facility] 50 mg 8-30 tablet by [facility] tablet 00:00: mouth [place] 00 every 8 Medical (eight) Branch hours as needed for Nausea and Vomiting (N/V). TAKE 1 TABLET BY MOUTH EVERY 6 HOURS NEEDED FOR NAUSEA AND VOMITING promethazin 2022-0 Yes [id number] 50mg Take 1 [facility] 50 mg 8-30 tablet by [facility] tablet 00:00: mouth [place] 00 every 8 Medical (eight) Branch hours as needed for Nausea and Vomiting (N/V). TAKE 1 TABLET BY MOUTH EVERY 6 HOURS NEEDED FOR NAUSEA AND VOMITING promethazin 2022-0 Yes [id number] 50mg Take 1 [facility] 50 mg 8-30 tablet by [facility] tablet 00:00: mouth [place] 00 every 8 Medical (eight) Branch hours as needed for Nausea and Vomiting (N/V). TAKE 1 TABLET BY MOUTH EVERY 6 HOURS NEEDED FOR NAUSEA AND VOMITING promethazin 2022-0 Yes [id number] 50mg Take 1 [facility] 50 mg 8-30 tablet by [facility] tablet 00:00: mouth [place] 00 every 8 Medical (eight) Branch hours as needed for Nausea and Vomiting (N/V). TAKE 1 TABLET BY MOUTH EVERY 6 HOURS NEEDED FOR NAUSEA AND VOMITING promethazin 2022-0 Yes [id number] 50mg Take 1 [facility] 50 mg 8-30 tablet by [facility] tablet 00:00: mouth [place] 00 every 8 Medical (eight) Branch hours as needed for Nausea and Vomiting (N/V). TAKE 1 TABLET BY MOUTH EVERY 6 HOURS NEEDED FOR NAUSEA AND VOMITING promethazin 2022-0 Yes [id number] 50mg Take 1 [facility] 50 mg 8-30 tablet by [facility] tablet 00:00: mouth [place] 00 every 8 Medical (eight) Branch hours as needed for Nausea and Vomiting (N/V). TAKE 1 TABLET BY MOUTH EVERY 6 HOURS NEEDED FOR NAUSEA AND VOMITING promethazin 2022-0 Yes [id number] 50mg Take 1 [facility] 50 mg 8-30 tablet by [facility] tablet 00:00: mouth [place] 00 every 8 Medical (eight) Branch hours as needed for Nausea and Vomiting (N/V). TAKE 1 TABLET BY MOUTH EVERY 6 HOURS NEEDED FOR NAUSEA AND VOMITING promethazin 2022-0 Yes [id number] 50mg Take 1 [facility] 50 mg 8-30 tablet by [facility] tablet 00:00: mouth [place] 00 every 8 Medical (eight) Branch hours as needed for Nausea and Vomiting (N/V). TAKE 1 TABLET BY MOUTH EVERY 6 HOURS NEEDED FOR NAUSEA AND VOMITING promethazin 2022-0 Yes [id number] 50mg Take 1 [facility] 50 mg 8-30 tablet by [facility] tablet 00:00: mouth [place] 00 every 8 Medical (eight) Branch hours as needed for Nausea and Vomiting (N/V). TAKE 1 TABLET BY MOUTH EVERY 6 HOURS NEEDED FOR NAUSEA AND VOMITING promethazin 2022-0 Yes [id number] 50mg Take 1 [facility] 50 mg 8-30 tablet by [facility] tablet 00:00: mouth [place] 00 every 8 Medical (eight) Branch hours as needed for Nausea and Vomiting (N/V). TAKE 1 TABLET BY MOUTH EVERY 6 HOURS NEEDED FOR NAUSEA AND VOMITING promethazin 2022-0 Yes [id number] 50mg Take 1 [facility] 50 mg 8-30 tablet by [facility] tablet 00:00: mouth [place] 00 every 8 Medical (eight) Branch hours as needed for Nausea and Vomiting (N/V). TAKE 1 TABLET BY MOUTH EVERY 6 HOURS NEEDED FOR NAUSEA AND VOMITING promethazin 2022-0 Yes [id number] 50mg Take 1 [facility] 50 mg 8-30 tablet by [facility] tablet 00:00: mouth [place] 00 every 8 Medical (eight) Branch hours as needed for Nausea and Vomiting (N/V). TAKE 1 TABLET BY MOUTH EVERY 6 HOURS NEEDED FOR NAUSEA AND VOMITING promethazin 2022-0 Yes [id number] 50mg Take 1 [facility] 50 mg 8-30 tablet by [facility] tablet 00:00: mouth [place] 00 every 8 Medical (eight) Branch hours as needed for Nausea and Vomiting (N/V). TAKE 1 TABLET BY MOUTH EVERY 6 HOURS NEEDED FOR NAUSEA AND VOMITING promethazin 2022-0 Yes [id number] 50mg Take 1 [facility] 50 mg 8-30 tablet by [facility] tablet 00:00: mouth [place] 00 every 8 Medical (eight) Branch hours as needed for Nausea and Vomiting (N/V). TAKE 1 TABLET BY MOUTH EVERY 6 HOURS NEEDED FOR NAUSEA AND VOMITING promethazin 2022-0 Yes [id number] 50mg Take 1 [facility] 50 mg 8-30 tablet by [facility] tablet 00:00: mouth [place] 00 every 8 Medical (eight) Branch hours as needed for Nausea and Vomiting (N/V). TAKE 1 TABLET BY MOUTH EVERY 6 HOURS NEEDED FOR NAUSEA AND VOMITING promethazin 2022-0 Yes [id number] 50mg Take 1 [facility] 50 mg 8-30 tablet by [facility] tablet 00:00: mouth [place] 00 every 8 Medical (eight) Branch hours as needed for Nausea and Vomiting (N/V). TAKE 1 TABLET BY MOUTH EVERY 6 HOURS NEEDED FOR NAUSEA AND VOMITING promethazin 2022-0 Yes [id number] 50mg Take 1 [facility] 50 mg 8-30 tablet by [facility] tablet 00:00: mouth [place] 00 every 8 Medical (eight) Branch hours as needed for Nausea and Vomiting (N/V). TAKE 1 TABLET BY MOUTH EVERY 6 HOURS NEEDED FOR NAUSEA AND VOMITING promethazin 2022-0 Yes [id number] 50mg Take 1 [facility] 50 mg 8-30 tablet by [facility] tablet 00:00: mouth [place] 00 every 8 Medical (eight) Branch hours as needed for Nausea and Vomiting (N/V). TAKE 1 TABLET BY MOUTH EVERY 6 HOURS NEEDED FOR NAUSEA AND VOMITING promethazin 2022-0 Yes [id number] 50mg Take 1 [facility] 50 mg 8-30 tablet by [facility] tablet 00:00: mouth [place] 00 every 8 Medical (eight) Branch hours as needed for Nausea and Vomiting (N/V). TAKE 1 TABLET BY MOUTH EVERY 6 HOURS NEEDED FOR NAUSEA AND VOMITING promethazin 2022-0 Yes [id number] 50mg Take 1 [facility] 50 mg 8-30 tablet by [facility] tablet 00:00: mouth [place] 00 every 8 Medical (eight) Branch hours as needed for Nausea and Vomiting (N/V). TAKE 1 TABLET BY MOUTH EVERY 6 HOURS NEEDED FOR NAUSEA AND VOMITING promethazin 2022-0 Yes [id number] 50mg Take 1 [facility] 50 mg 8-30 tablet by [facility] tablet 00:00: mouth [place] 00 every 8 Medical (eight) Branch hours as needed for Nausea and Vomiting (N/V). TAKE 1 TABLET BY MOUTH EVERY 6 HOURS NEEDED FOR NAUSEA AND VOMITING promethazin 2022-0 Yes [id number] 50mg Take 1 [facility] 50 mg 8-30 tablet by [facility] tablet 00:00: mouth [place] 00 every 8 Medical (eight) Branch hours as needed for Nausea and Vomiting (N/V). TAKE 1 TABLET BY MOUTH EVERY 6 HOURS NEEDED FOR NAUSEA AND VOMITING promethazin 2022-0 Yes [id number] 50mg Take 1 [facility] 50 mg 8-30 tablet by [facility] tablet 00:00: mouth [place] 00 every 8 Medical (eight) Branch hours as needed for Nausea and Vomiting (N/V). TAKE 1 TABLET BY MOUTH EVERY 6 HOURS NEEDED FOR NAUSEA AND VOMITING promethazin 2-0 Yes [id number] 50mg Take 1 [facility] 50 mg 8-30 tablet by [facility] tablet 00:00: mouth [place] 00 every 8 Medical (eight) Branch hours as needed for Nausea and Vomiting (N/V). TAKE 1 TABLET BY MOUTH EVERY 6 HOURS NEEDED FOR NAUSEA AND VOMITING promethazin 2021-0 Yes [id number] 50mg Take 1 [facility] 50 mg 8-30 tablet by [facility] tablet 00:00: mouth [place] 00 every 8 Medical (eight) Branch hours as needed for Nausea and Vomiting (N/V). TAKE 1 TABLET BY MOUTH EVERY 6 HOURS NEEDED FOR NAUSEA AND VOMITING promethazin 2021-0 Yes [id number] 50mg Take 1 [facility] 50 mg 8-30 tablet by [facility] tablet 00:00: mouth [place] 00 every 8 Medical (eight) Branch hours as needed for Nausea and Vomiting (N/V). TAKE 1 TABLET BY MOUTH EVERY 6 HOURS NEEDED FOR NAUSEA AND VOMITING promethazin 2021-0 Yes [id number] 50mg Take 1 [facility] 50 mg 8-30 tablet by [facility] tablet 00:00: mouth [place] 00 every 8 Medical (eight) Branch hours as needed for Nausea and Vomiting (N/V). TAKE 1 TABLET BY MOUTH EVERY 6 HOURS NEEDED FOR NAUSEA AND VOMITING promethazin 2-0 Yes [id number] 50mg Take 1 [facility] 50 mg 8-30 tablet by [facility] tablet 00:00: mouth [place] 00 every 8 Medical (eight) Branch hours as needed for Nausea and Vomiting (N/V). TAKE 1 TABLET BY MOUTH EVERY 6 HOURS NEEDED FOR NAUSEA AND VOMITING promethazin 2022-0 Yes [id number] 50mg Take 1 [facility] 50 mg 8-30 tablet by [facility] tablet 00:00: mouth [place] 00 every 8 Medical (eight) Branch hours as needed for Nausea and Vomiting (N/V). TAKE 1 TABLET BY MOUTH EVERY 6 HOURS NEEDED FOR NAUSEA AND VOMITING promethazin 2022-0 Yes [id number] 50mg Take 1 [facility] 50 mg 8-30 tablet by [facility] tablet 00:00: mouth [place] 00 every 8 Medical (eight) Branch hours as needed for Nausea and Vomiting (N/V). TAKE 1 TABLET BY MOUTH EVERY 6 HOURS NEEDED FOR NAUSEA AND VOMITING promethazin 2022-0 Yes [id number] 50mg Take 1 [facility] 50 mg 8-30 tablet by [facility] tablet 00:00: mouth [place] 00 every 8 Medical (eight) Branch hours as needed for Nausea and Vomiting (N/V). TAKE 1 TABLET BY MOUTH EVERY 6 HOURS NEEDED FOR NAUSEA AND VOMITING promethazin 2022-0 Yes [id number] 50mg Take 1 [facility] 50 mg 8-30 tablet by [facility] tablet 00:00: mouth [place] 00 every 8 [facility] (eight) Branch hours as needed for Nausea and Vomiting (N/V). TAKE 1 TABLET BY MOUTH EVERY 6 HOURS NEEDED FOR NAUSEA AND VOMITING promethazin 2022-0 Yes [id number] 50mg Take 1 [facility]30 tablet [facility] tablet 00:00: mouth [place] 00 every 8 [facility] (eight) Branch hours as needed for Nausea and Vomiting (N/V). TAKE 1 TABLET BY MOUTH EVERY 6 HOURS NEEDED FOR NAUSEA AND VOMITING promethazin 2022-0 Yes [id number] 50mg Take 1 [facility] 8-30 tablet by [facility] tablet 00:00: mouth [place] 00 every 8 [facility] (eight) Branch hours as needed for Nausea and Vomiting (N/V). TAKE 1 TABLET BY MOUTH EVERY 6 HOURS NEEDED FOR NAUSEA AND VOMITING promethazin 2022-0 Yes [id number] 50mg Take 1 [facility] mg 8-30 tablet by [facility] tablet 00:00: mouth [place] 00 every 8 [facility] (eight) Branch hours as needed for Nausea and Vomiting (N/V). TAKE 1 TABLET BY MOUTH EVERY 6 HOURS NEEDED FOR NAUSEA AND VOMITING promethazin 2022-0 Yes [id number] 50mg Take 1 [facility] mg 8-30 tablet by [facility] tablet 00:00: mouth [place] 00 every 8 [facility] (eight) Branch hours as needed for Nausea and Vomiting (N/V). TAKE 1 TABLET BY MOUTH EVERY 6 HOURS NEEDED FOR NAUSEA AND VOMITING promethazin 2022-0 Yes [id number] 50mg Take 1 [facility] mg 8-30 tablet by [facility] tablet 00:00: mouth [place] 00 every 8 [facility] (eight) Branch hours as needed for Nausea and Vomiting (N/V). TAKE 1 TABLET BY MOUTH EVERY 6 HOURS NEEDED FOR NAUSEA AND VOMITING promethazin 2022-0 Yes [id number] 50mg Take 1 [facility] 50 mg 8-30 tablet by [facility] tablet 00:00: mouth [place] 00 every 8 [facility] (eight) Branch hours as needed for Nausea and Vomiting (N/V). TAKE 1 TABLET BY MOUTH EVERY 6 HOURS NEEDED FOR NAUSEA AND VOMITING promethazin 2022-0 Yes [id number] 50mg Take 1 [facility] 50 mg 8-30 tablet by [facility] tablet 00:00: mouth [place] 00 every 8 [facility] (eight) Branch hours as needed for Nausea and Vomiting (N/V). TAKE 1 TABLET BY MOUTH EVERY 6 HOURS NEEDED FOR NAUSEA AND VOMITING promethazin 2022-0 Yes [id number] 50mg Take 1 [facility] 50 mg 8-30 tablet by [facility] tablet 00:00: mouth [place] 00 every 8 [facility] (eight) Branch hours as needed for Nausea and Vomiting (N/V). TAKE 1 TABLET BY MOUTH EVERY 6 HOURS NEEDED FOR NAUSEA AND VOMITING promethazin 2022-0 Yes [id number] 50mg Take 1 [facility] 50 mg 8-30 tablet by [facility] tablet 00:00: mouth [place] 00 every 8 [facility] (eight) Branch hours as needed for Nausea and Vomiting (N/V). TAKE 1 TABLET BY MOUTH EVERY 6 HOURS NEEDED FOR NAUSEA AND VOMITING promethazin 2022-0 Yes [id number] 50mg Take 1 [facility] 50 mg 8-30 tablet by [facility] tablet 00:00: mouth [place] 00 every 8 [facility] (eight) Branch hours as needed for Nausea and Vomiting (N/V). TAKE 1 TABLET BY MOUTH EVERY 6 HOURS NEEDED FOR NAUSEA AND VOMITING promethazin 2022-0 Yes [id number] 50mg Take 1 [facility] 50 mg 8-30 tablet by [facility] tablet 00:00: mouth [place] 00 every 8 [facility] (eight) Branch hours as needed for Nausea and Vomiting (N/V). TAKE 1 TABLET BY MOUTH EVERY 6 HOURS NEEDED FOR NAUSEA AND VOMITING promethazin 2022-0 Yes [id number] 50mg Take 1 [facility] 50 mg 8-30 tablet by [facility] tablet 00:00: mouth [place] 00 every 8 [facility] (eight) Branch hours as needed for Nausea and Vomiting (N/V). TAKE 1 TABLET BY MOUTH EVERY 6 HOURS NEEDED FOR NAUSEA AND VOMITING promethazin 2022-0 Yes [id number] 50mg Take 1 [facility] 50 mg 8-30 tablet by [facility] tablet 00:00: mouth [place] 00 every 8 [facility] (eight) Branch hours as needed for Nausea and Vomiting (N/V). TAKE 1 TABLET BY MOUTH EVERY 6 HOURS NEEDED FOR NAUSEA AND VOMITING promethazin 2022-0 Yes [id number] 50mg Take 1 [facility] 50 mg 8-30 tablet by [facility] tablet 00:00: mouth [place] 00 every 8 [facility] (eight) Branch hours as needed for Nausea and Vomiting (N/V). TAKE 1 TABLET BY MOUTH EVERY 6 HOURS NEEDED FOR NAUSEA AND VOMITING promethazin 2022-0 Yes [id number] 50mg Take 1 [facility] 50 mg 8-30 tablet by [facility] tablet 00:00: mouth [place] 00 every 8 [facility] (eight) Branch hours as needed for Nausea and Vomiting (N/V). TAKE 1 TABLET BY MOUTH EVERY 6 HOURS NEEDED FOR NAUSEA AND VOMITING promethazin 2-0 Yes [id number] 50mg Take 1 [facility] 50 mg 8-30 tablet by [facility] tablet 00:00: mouth [place] 00 every 8 [facility] (eight) Branch hours as needed for Nausea and Vomiting (N/V). TAKE 1 TABLET BY MOUTH EVERY 6 HOURS NEEDED FOR NAUSEA AND VOMITING promethazin 2022-0 Yes [id number] 50mg Take 1 [facility] 50 mg 8-30 tablet by [facility] tablet 00:00: mouth [place] 00 every 8 [facility] (eight) Branch hours as needed for Nausea and Vomiting (N/V). TAKE 1 TABLET BY MOUTH EVERY 6 HOURS NEEDED FOR NAUSEA AND VOMITING promethazin 2022-0 Yes [id number] 50mg Take 1 [facility] 50 mg 8-30 tablet by [facility] tablet 00:00: mouth [place] 00 every 8 [facility] (eight) Branch hours as needed for Nausea and Vomiting (N/V). TAKE 1 TABLET BY MOUTH EVERY 6 HOURS NEEDED FOR NAUSEA AND VOMITING promethazin 2022-0 Yes [id number] 50mg Take 1 [facility] 50 mg 8-30 tablet by [facility] tablet 00:00: mouth [place] 00 every 8 [facility] (eight) Branch hours as needed for Nausea and Vomiting (N/V). TAKE 1 TABLET BY MOUTH EVERY 6 HOURS NEEDED FOR NAUSEA AND VOMITING promethazin 2022-0 Yes [id number] 50mg Take 1 [facility] 50 mg 8-30 tablet by [facility] tablet 00:00: mouth [place] 00 every 8 [facility] (eight) Branch hours as needed for Nausea and Vomiting (N/V). TAKE 1 TABLET BY MOUTH EVERY 6 HOURS NEEDED FOR NAUSEA AND VOMITING promethazin 2-0 Yes [id number] 50mg Take 1 [facility] 50 mg 8-30 tablet by [facility] tablet 00:00: mouth [place] 00 every 8 [facility] (eight) Branch hours as needed for Nausea and Vomiting (N/V). TAKE 1 TABLET BY MOUTH EVERY 6 HOURS NEEDED FOR NAUSEA AND VOMITING promethazin 2-0 Yes [id number] 50mg Take 1 [facility] 50 mg 8-30 tablet by [facility] tablet 00:00: mouth [place] 00 every 8 [facility] (eight) Branch hours as needed for Nausea and Vomiting (N/V). TAKE 1 TABLET BY MOUTH EVERY 6 HOURS NEEDED FOR NAUSEA AND VOMITING promethazin 2-0 Yes [id number] 50mg Take 1 [facility] 50 mg 8-30 tablet by [facility] tablet 00:00: mouth [place] 00 every 8 [facility] (eight) Branch hours as needed for Nausea and Vomiting (N/V). TAKE 1 TABLET BY MOUTH EVERY 6 HOURS NEEDED FOR NAUSEA AND VOMITING promethazin 2-0 Yes [id number] 50mg Take 1 [facility] 50 mg 8-30 tablet by [facility] tablet 00:00: mouth [place] 00 every 8 [facility] (eight) Branch hours as needed for Nausea and Vomiting (N/V). TAKE 1 TABLET BY MOUTH EVERY 6 HOURS NEEDED FOR NAUSEA AND VOMITING promethazin 2-0 Yes [id number] 50mg Take 1 [facility] 50 mg 8-30 tablet by [facility] tablet 00:00: mouth [place] 00 every 8 [facility] (eight) Branch hours as needed for Nausea and Vomiting (N/V). TAKE 1 TABLET BY MOUTH EVERY 6 HOURS NEEDED FOR NAUSEA AND VOMITING promethazin 2022-0 Yes [id number] 50mg Take 1 [facility] 50 mg 8-30 tablet by [facility] tablet 00:00: mouth [place] 00 every 8 [facility] (eight) Branch hours as needed for Nausea and Vomiting (N/V). TAKE 1 TABLET BY MOUTH EVERY 6 HOURS NEEDED FOR NAUSEA AND VOMITING promethazin 2022-0 Yes [id number] 50mg Take 1 [facility] 50 mg 8-30 tablet by [facility] tablet 00:00: mouth [place] 00 every 8 [facility] (eight) Branch hours as needed for Nausea and Vomiting (N/V). TAKE 1 TABLET BY MOUTH EVERY 6 HOURS NEEDED FOR NAUSEA AND VOMITING promethazin 2022-0 Yes [id number] 50mg Take 1 [facility] 50 mg 8-30 tablet by [facility] tablet 00:00: mouth [place] 00 every 8 [facility] (eight) Branch hours as needed for Nausea and Vomiting (N/V). TAKE 1 TABLET BY MOUTH EVERY 6 HOURS NEEDED FOR NAUSEA AND VOMITING promethazin 2022-0 Yes [id number] 50mg Take 1 [facility] 50 mg 8-30 tablet by [facility] tablet 00:00: mouth [place] 00 every 8 [facility] (eight) Branch hours as needed for Nausea and Vomiting (N/V). TAKE 1 TABLET BY MOUTH EVERY 6 HOURS NEEDED FOR NAUSEA AND VOMITING promethazin 2022-0 Yes [id number] 50mg Take 1 [facility] 50 mg 8-30 tablet by [facility] tablet 00:00: mouth [place] 00 every 8 [facility] (eight) Branch hours as needed for Nausea and Vomiting (N/V). TAKE 1 TABLET BY MOUTH EVERY 6 HOURS NEEDED FOR NAUSEA AND VOMITING promethazin 2022-0 Yes [id number] 50mg Take 1 [facility] 50 mg 8-30 tablet by [facility] tablet 00:00: mouth [place] 00 every 8 [facility] (eight) Branch hours as needed for Nausea and Vomiting (N/V). TAKE 1 TABLET BY MOUTH EVERY 6 HOURS NEEDED FOR NAUSEA AND VOMITING promethazin 2022-0 Yes [id number] 50mg Take 1 [facility] 50 mg 8-30 tablet by [facility] tablet 00:00: mouth [place] 00 every 8 [facility] (eight) Branch hours as needed for Nausea and Vomiting (N/V). TAKE 1 TABLET BY MOUTH EVERY 6 HOURS NEEDED FOR NAUSEA AND VOMITING promethazin 2022-0 Yes [id number] 50mg Take 1 [facility] 50 mg 8-30 tablet by [facility] tablet 00:00: mouth [place] 00 every 8 [facility] (eight) Branch hours as needed for Nausea and Vomiting (N/V). TAKE 1 TABLET BY MOUTH EVERY 6 HOURS NEEDED FOR NAUSEA AND VOMITING promethazin 2022-0 Yes [id number] 50mg Take 1 [facility] 50 mg 8-30 tablet by [facility] tablet 00:00: mouth [place] 00 every 8 [facility] (eight) Branch hours as needed for Nausea and Vomiting (N/V). TAKE 1 TABLET BY MOUTH EVERY 6 HOURS NEEDED FOR NAUSEA AND VOMITING promethazin 2022-0 Yes [id number] 50mg Take 1 [facility] 50 mg 8-30 tablet by [facility] tablet 00:00: mouth [place] 00 every 8 [facility] (eight) Branch hours as needed for Nausea and Vomiting (N/V). TAKE 1 TABLET BY MOUTH EVERY 6 HOURS NEEDED FOR NAUSEA AND VOMITING promethazin 2022-0 Yes [id number] 50mg Take 1 [facility] 50 mg 8-30 tablet by [facility] tablet 00:00: mouth [place] 00 every 8 [facility] (eight) Branch hours as needed for Nausea and Vomiting (N/V). TAKE 1 TABLET BY MOUTH EVERY 6 HOURS NEEDED FOR NAUSEA AND VOMITING promethazin 2022-0 Yes [id number] 50mg Take 1 [facility] 50 mg 8-30 tablet by [facility] tablet 00:00: mouth [place] 00 every 8 [facility] (eight) Branch hours as needed for Nausea and Vomiting (N/V). TAKE 1 TABLET BY MOUTH EVERY 6 HOURS NEEDED FOR NAUSEA AND VOMITING promethazin 2022-0 Yes [id number] 50mg Take 1 [facility] 50 mg 8-30 tablet by [facility] tablet 00:00: mouth [place] 00 every 8 [facility] (eight) Branch hours as needed for Nausea and Vomiting (N/V). TAKE 1 TABLET BY MOUTH EVERY 6 HOURS NEEDED FOR NAUSEA AND VOMITING promethazin 2022-0 Yes [id number] 50mg Take 1 [facility] 50 mg 8-30 tablet by [facility] tablet 00:00: mouth [place] 00 every 8 [facility] (eight) Branch hours as needed for Nausea and Vomiting (N/V). TAKE 1 TABLET BY MOUTH EVERY 6 HOURS NEEDED FOR NAUSEA AND VOMITING promethazin 2022-0 Yes [id number] 50mg Take 1 [facility] 50 mg 8-30 tablet by [facility] tablet 00:00: mouth [place] 00 every 8 [facility] (eight) Branch hours as needed for Nausea and Vomiting (N/V). TAKE 1 TABLET BY MOUTH EVERY 6 HOURS NEEDED FOR NAUSEA AND VOMITING promethazin 2022-0 Yes [id number] 50mg Take 1 [facility] 50 mg 8-30 tablet by [facility] tablet 00:00: mouth [place] 00 every 8 [facility] (eight) Branch hours as needed for Nausea and Vomiting (N/V). TAKE 1 TABLET BY MOUTH EVERY 6 HOURS NEEDED FOR NAUSEA AND VOMITING promethazin 2022-0 Yes [id number] 50mg Take 1 [facility] 50 mg 8-30 tablet by [facility] tablet 00:00: mouth [place] 00 every 8 [facility] (eight) Branch hours as needed for Nausea and Vomiting (N/V). TAKE 1 TABLET BY MOUTH EVERY 6 HOURS NEEDED FOR NAUSEA AND VOMITING promethazin 2022-0 Yes [id number] 50mg Take 1 [facility] 50 mg 8-30 tablet by [facility] tablet 00:00: mouth [place] 00 every 8 [facility] (eight) Branch hours as needed for Nausea and Vomiting (N/V). TAKE 1 TABLET BY MOUTH EVERY 6 HOURS NEEDED FOR NAUSEA AND VOMITING promethazin 2022-0 Yes [id number] 50mg Take 1 [facility] 50 mg 8-30 tablet by [facility] tablet 00:00: mouth [place] 00 every 8 [facility] (eight) Branch hours as needed for Nausea and Vomiting (N/V). TAKE 1 TABLET BY MOUTH EVERY 6 HOURS NEEDED FOR NAUSEA AND VOMITING promethazin 2-0 Yes [id number] 50mg Take 1 [facility] 50 mg 8-30 tablet by [facility] tablet 00:00: mouth [place] 00 every 8 [facility] (eight) Branch hours as needed for Nausea and Vomiting (N/V). TAKE 1 TABLET BY MOUTH EVERY 6 HOURS NEEDED FOR NAUSEA AND VOMITING promethazin 2022-0 Yes [id number] 50mg Take 1 [facility] 50 mg 8-30 tablet by [facility] tablet 00:00: mouth [place] 00 every 8 [facility] (eight) Branch hours as needed for Nausea and Vomiting (N/V). TAKE 1 TABLET BY MOUTH EVERY 6 HOURS NEEDED FOR NAUSEA AND VOMITING promethazin 2022-0 Yes [id number] 50mg Take 1 [facility] 50 mg 8-30 tablet by [facility] tablet 00:00: mouth [place] 00 every 8 [facility] (eight) Branch hours as needed for Nausea and Vomiting (N/V). TAKE 1 TABLET BY MOUTH EVERY 6 HOURS NEEDED FOR NAUSEA AND VOMITING promethazin 2022-0 Yes [id number] 50mg Take 1 [facility] 50 mg 8-30 tablet by [facility] tablet 00:00: mouth [place] 00 every 8 [facility] (eight) Branch hours as needed for Nausea and Vomiting (N/V). TAKE 1 TABLET BY MOUTH EVERY 6 HOURS NEEDED FOR NAUSEA AND VOMITING promethazin 2-0 Yes [id number] 50mg Take 1 [facility] 50 mg 8-30 tablet by [facility] tablet 00:00: mouth [place] 00 every 8 [facility] (eight) Branch hours as needed for Nausea and Vomiting (N/V). TAKE 1 TABLET BY MOUTH EVERY 6 HOURS NEEDED FOR NAUSEA AND VOMITING promethazin 2021-0 Yes [id number] 50mg Take 1 [facility] 50 mg 8-30 tablet by [facility] tablet 00:00: mouth [place] 00 every 8 [facility] (eight) Branch hours as needed for Nausea and Vomiting (N/V). TAKE 1 TABLET BY MOUTH EVERY 6 HOURS NEEDED FOR NAUSEA AND VOMITING promethazin 2021-0 Yes [id number] 50mg Take 1 [facility] 50 mg 8-30 tablet by [facility] tablet 00:00: mouth [place] 00 every 8 [facility] (eight) Branch hours as needed for Nausea and Vomiting (N/V). TAKE 1 TABLET BY MOUTH EVERY 6 HOURS NEEDED FOR NAUSEA AND VOMITING promethazin 2021-0 Yes [id number] 50mg Take 1 [facility] 50 mg 8-30 tablet by [facility] tablet 00:00: mouth [place] 00 every 8 [facility] (eight) Branch hours as needed for Nausea and Vomiting (N/V). TAKE 1 TABLET BY MOUTH EVERY 6 HOURS NEEDED FOR NAUSEA AND VOMITING promethazin 2021-0 Yes [id number] 50mg Take 1 [facility] 50 mg 8-30 tablet by [facility] tablet 00:00: mouth [place] 00 every 8 [facility] (eight) Branch hours as needed for Nausea and Vomiting (N/V). TAKE 1 TABLET BY MOUTH EVERY 6 HOURS NEEDED FOR NAUSEA AND VOMITING promethazin 2-0 Yes [id number] 50mg Take 1 [facility] 50 mg 8-30 tablet by [facility] tablet 00:00: mouth [place] 00 every 8 [facility] (eight) Branch hours as needed for Nausea and Vomiting (N/V). TAKE 1 TABLET BY MOUTH EVERY 6 HOURS NEEDED FOR NAUSEA AND VOMITING promethazin 2-0 Yes [id number] 50mg Take 1 [facility] 50 mg 8-30 tablet by [facility] tablet 00:00: mouth [place] 00 every 8 [facility] (eight) Branch hours as needed for Nausea and Vomiting (N/V). TAKE 1 TABLET BY MOUTH EVERY 6 HOURS NEEDED FOR NAUSEA AND VOMITING promethazin 2022-0 Yes [id number] 50mg Take 1 [facility] 50 mg 8-30 tablet by [facility] tablet 00:00: mouth [place] 00 every 8 [facility] (eight) Branch hours as needed for Nausea and Vomiting (N/V). TAKE 1 TABLET BY MOUTH EVERY 6 HOURS NEEDED FOR NAUSEA AND VOMITING promethazin 2022-0 Yes [id number] 50mg Take 1 [facility] 50 mg 8-30 tablet by [facility] tablet 00:00: mouth [place] 00 every 8 [facility] (eight) Branch hours as needed for Nausea and Vomiting (N/V). TAKE 1 TABLET BY MOUTH EVERY 6 HOURS NEEDED FOR NAUSEA AND VOMITING promethazin 2022-0 Yes [id number] 50mg Take 1 [facility] 50 mg 8-30 tablet by [facility] tablet 00:00: mouth [place] 00 every 8 [facility] (eight) Branch hours as needed for Nausea and Vomiting (N/V). TAKE 1 TABLET BY MOUTH EVERY 6 HOURS NEEDED FOR NAUSEA AND VOMITING promethazin 2022-0 Yes [id number] 50mg Take 1 [facility] 50 mg 8-30 tablet by [facility] tablet 00:00: mouth [place] 00 every 8 [facility] (eight) Branch hours as needed for Nausea and Vomiting (N/V). TAKE 1 TABLET BY MOUTH EVERY 6 HOURS NEEDED FOR NAUSEA AND VOMITING promethazin 2022-0 Yes [id number] 50mg Take 1 [facility] 50 mg 8-30 tablet by [facility] tablet 00:00: mouth [place] 00 every 8 [facility] (eight) Branch hours as needed for Nausea and Vomiting (N/V). TAKE 1 TABLET BY MOUTH EVERY 6 HOURS NEEDED FOR NAUSEA AND VOMITING promethazin 2022-0 Yes [id number] 50mg Take 1 [facility] 50 mg 8-30 tablet by [facility] tablet 00:00: mouth [place] 00 every 8 [facility] (eight) Branch hours as needed for Nausea and Vomiting (N/V). TAKE 1 TABLET BY MOUTH EVERY 6 HOURS NEEDED FOR NAUSEA AND VOMITING promethazin 2022-0 Yes [id number] 50mg Take 1 [facility] 50 mg 8-30 tablet by [facility] tablet 00:00: mouth [place] 00 every 8 [facility] (eight) Branch hours as needed for Nausea and Vomiting (N/V). TAKE 1 TABLET BY MOUTH EVERY 6 HOURS NEEDED FOR NAUSEA AND VOMITING promethazin 2022-0 Yes [id number] 50mg Take 1 [facility] 50 mg 8-30 tablet by [facility] tablet 00:00: mouth [place] 00 every 8 [facility] (eight) Branch hours as needed for Nausea and Vomiting (N/V). TAKE 1 TABLET BY MOUTH EVERY 6 HOURS NEEDED FOR NAUSEA AND VOMITING promethazin 2022-0 Yes [id number] 50mg Take 1 [facility] 50 mg 8-30 tablet by [facility] tablet 00:00: mouth [place] 00 every 8 [facility] (eight) Branch hours as needed for Nausea and Vomiting (N/V). TAKE 1 TABLET BY MOUTH EVERY 6 HOURS NEEDED FOR NAUSEA AND VOMITING promethazin 2022-0 Yes [id number] 50mg Take 1 [facility] 50 mg 8-30 tablet by [facility] tablet 00:00: mouth [place] 00 every 8 [facility] (eight) Branch hours as needed for Nausea and Vomiting (N/V). TAKE 1 TABLET BY MOUTH EVERY 6 HOURS NEEDED FOR NAUSEA AND VOMITING promethazin 2022-0 Yes [id number] 50mg Take 1 [facility] 50 mg 8-30 tablet by [facility] tablet 00:00: mouth [place] 00 every 8 [facility] (eight) Branch hours as needed for Nausea and Vomiting (N/V). TAKE 1 TABLET BY MOUTH EVERY 6 HOURS NEEDED FOR NAUSEA AND VOMITING promethazin 2022-0 Yes [id number] 50mg Take 1 [facility] 50 mg 8-30 tablet by [facility] tablet 00:00: mouth [place] 00 every 8 [facility] (eight) Branch hours as needed for Nausea and Vomiting (N/V). TAKE 1 TABLET BY MOUTH EVERY 6 HOURS NEEDED FOR NAUSEA AND VOMITING promethazin 2022-0 Yes [id number] 50mg Take 1 [facility] 50 mg 8-30 tablet by [facility] tablet 00:00: mouth [place] 00 every 8 [facility] (eight) Branch hours as needed for Nausea and Vomiting (N/V). TAKE 1 TABLET BY MOUTH EVERY 6 HOURS NEEDED FOR NAUSEA AND VOMITING promethazin 2022-0 Yes [id number] 50mg Take 1 [facility] 50 mg 8-30 tablet by [facility] tablet 00:00: mouth [place] 00 every 8 [facility] (eight) Branch hours as needed for Nausea and Vomiting (N/V). TAKE 1 TABLET BY MOUTH EVERY 6 HOURS NEEDED FOR NAUSEA AND VOMITING promethazin 2022-0 Yes [id number] 50mg Take 1 [facility] 50 mg 8-30 tablet by [facility] tablet 00:00: mouth [place] 00 every 8 [facility] (eight) Branch hours as needed for Nausea and Vomiting (N/V). TAKE 1 TABLET BY MOUTH EVERY 6 HOURS NEEDED FOR NAUSEA AND VOMITING promethazin 2022-0 Yes [id number] 50mg Take 1 [facility] 50 mg 8-30 tablet by [facility] tablet 00:00: mouth [place] 00 every 8 [facility] (eight) Branch hours as needed for Nausea and Vomiting (N/V). TAKE 1 TABLET BY MOUTH EVERY 6 HOURS NEEDED FOR NAUSEA AND VOMITING promethazin 2022-0 Yes [id number] 50mg Take 1 [facility] 50 mg 8-30 tablet by [facility] tablet 00:00: mouth [place] 00 every 8 [facility] (eight) Branch hours as needed for Nausea and Vomiting (N/V). TAKE 1 TABLET BY MOUTH EVERY 6 HOURS NEEDED FOR NAUSEA AND VOMITING promethazin 2022-0 Yes [id number] 50mg Take 1 [facility] 50 mg 8-30 tablet by [facility] tablet 00:00: mouth [place] 00 every 8 [facility] (eight) Branch hours as needed for Nausea and Vomiting (N/V). TAKE 1 TABLET BY MOUTH EVERY 6 HOURS NEEDED FOR NAUSEA AND VOMITING promethazin 2022-0 Yes [id number] 50mg Take 1 [facility] 50 mg 8-30 tablet by [facility] tablet 00:00: mouth [place] 00 every 8 [facility] (eight) Branch hours as needed for Nausea and Vomiting (N/V). TAKE 1 TABLET BY MOUTH EVERY 6 HOURS NEEDED FOR NAUSEA AND VOMITING promethazin 2022-0 Yes [id number] 50mg Take 1 [facility] 50 mg 8-30 tablet by [facility] tablet 00:00: mouth [place] 00 every 8 [facility] (eight) Branch hours as needed for Nausea and Vomiting (N/V). TAKE 1 TABLET BY MOUTH EVERY 6 HOURS NEEDED FOR NAUSEA AND VOMITING promethazin 2022-0 Yes [id number] 50mg Take 1 [facility] 50 mg 8-30 tablet by [facility] tablet 00:00: mouth [place] 00 every 8 [facility] (eight) Branch hours as needed for Nausea and Vomiting (N/V). TAKE 1 TABLET BY MOUTH EVERY 6 HOURS NEEDED FOR NAUSEA AND VOMITING promethazin 2022-0 Yes [id number] 50mg Take 1 [facility] 50 mg 8-30 tablet by [facility] tablet 00:00: mouth [place] 00 every 8 [facility] (eight) Branch hours as needed for Nausea and Vomiting (N/V). TAKE 1 TABLET BY MOUTH EVERY 6 HOURS NEEDED FOR NAUSEA AND VOMITING promethazin 2-0 Yes [id number] 50mg Take 1 [facility] 50 mg 8-30 tablet by [facility] tablet 00:00: mouth [place] 00 every 8 [facility] (eight) Branch hours as needed for Nausea and Vomiting (N/V). TAKE 1 TABLET BY MOUTH EVERY 6 HOURS NEEDED FOR NAUSEA AND VOMITING promethazin 2021-0 Yes [id number] 50mg Take 1 [facility] 50 mg 8-30 tablet by [facility] tablet 00:00: mouth [place] 00 every 8 [facility] (eight) Branch hours as needed for Nausea and Vomiting (N/V). TAKE 1 TABLET BY MOUTH EVERY 6 HOURS NEEDED FOR NAUSEA AND VOMITING promethazin 2021-0 Yes [id number] 50mg Take 1 [facility] 50 mg 8-30 tablet by [facility] tablet 00:00: mouth [place] 00 every 8 [facility] (eight) Branch hours as needed for Nausea and Vomiting (N/V). TAKE 1 TABLET BY MOUTH EVERY 6 HOURS NEEDED FOR NAUSEA AND VOMITING promethazin 2021-0 Yes [id number] 50mg Take 1 [facility] 50 mg 8-30 tablet by [facility] tablet 00:00: mouth [place] 00 every 8 [facility] (eight) Branch hours as needed for Nausea and Vomiting (N/V). TAKE 1 TABLET BY MOUTH EVERY 6 HOURS NEEDED FOR NAUSEA AND VOMITING promethazin 2-0 Yes [id number] 50mg Take 1 [facility] 50 mg 8-30 tablet by [facility] tablet 00:00: mouth [place] 00 every 8 [facility] (eight) Branch hours as needed for Nausea and Vomiting (N/V). TAKE 1 TABLET BY MOUTH EVERY 6 HOURS NEEDED FOR NAUSEA AND VOMITING promethazin 2-0 Yes [id number] 50mg Take 1 [facility] 50 mg 8-30 tablet by [facility] tablet 00:00: mouth [place] 00 every 8 [facility] (eight) Branch hours as needed for Nausea and Vomiting (N/V). TAKE 1 TABLET BY MOUTH EVERY 6 HOURS NEEDED FOR NAUSEA AND VOMITING promethazin 2-0 Yes [id number] 50mg Take 1 [facility] 50 mg 8-30 tablet by [facility] tablet 00:00: mouth [place] 00 every 8 [facility] (eight) Branch hours as needed for Nausea and Vomiting (N/V). TAKE 1 TABLET BY MOUTH EVERY 6 HOURS NEEDED FOR NAUSEA AND VOMITING promethazin 2022-0 Yes [id number] 50mg Take 1 [facility] 50 mg 8-30 tablet by [facility] tablet 00:00: mouth [place] 00 every 8 [facility] (eight) Branch hours as needed for Nausea and Vomiting (N/V). TAKE 1 TABLET BY MOUTH EVERY 6 HOURS NEEDED FOR NAUSEA AND VOMITING promethazin 2022-0 Yes [id number] 50mg Take 1 [facility] 50 mg 8-30 tablet by [facility] tablet 00:00: mouth [place] 00 every 8 [facility] (eight) Branch hours as needed for Nausea and Vomiting (N/V). TAKE 1 TABLET BY MOUTH EVERY 6 HOURS NEEDED FOR NAUSEA AND VOMITING promethazin 2022-0 Yes [id number] 50mg Take 1 [facility] 50 mg 8-30 tablet by [facility] tablet 00:00: mouth [place] 00 every 8 [facility] (eight) Branch hours as needed for Nausea and Vomiting (N/V). TAKE 1 TABLET BY MOUTH EVERY 6 HOURS NEEDED FOR NAUSEA AND VOMITING promethazin 2022-0 Yes [id number] 50mg Take 1 [facility] 50 mg 8-30 tablet by [facility] tablet 00:00: mouth [place] 00 every 8 [facility] (eight) Branch hours as needed for Nausea and Vomiting (N/V). TAKE 1 TABLET BY MOUTH EVERY 6 HOURS NEEDED FOR NAUSEA AND VOMITING promethazin 2022-0 Yes [id number] 50mg Take 1 [facility] 50 mg 8-30 tablet by [facility] tablet 00:00: mouth [place] 00 every 8 [facility] (eight) Branch hours as needed for Nausea and Vomiting (N/V). TAKE 1 TABLET BY MOUTH EVERY 6 HOURS NEEDED FOR NAUSEA AND VOMITING promethazin 2022-0 Yes [id number] 50mg Take 1 [facility] 50 mg 8-30 tablet by [facility] tablet 00:00: mouth [place] 00 every 8 [facility] (eight) Branch hours as needed for Nausea and Vomiting (N/V). TAKE 1 TABLET BY MOUTH EVERY 6 HOURS NEEDED FOR NAUSEA AND VOMITING promethazin 2022-0 Yes [id number] 50mg Take 1 [facility] 50 mg 8-30 tablet by [facility] tablet 00:00: mouth [place] 00 every 8 [facility] (eight) Branch hours as needed for Nausea and Vomiting (N/V). TAKE 1 TABLET BY MOUTH EVERY 6 HOURS NEEDED FOR NAUSEA AND VOMITING promethazin 2022-0 Yes [id number] 50mg Take 1 [facility] 50 mg 8-30 tablet by [facility] tablet 00:00: mouth [place] 00 every 8 [facility] (eight) Branch hours as needed for Nausea and Vomiting (N/V). TAKE 1 TABLET BY MOUTH EVERY 6 HOURS NEEDED FOR NAUSEA AND VOMITING promethazin 2022-0 Yes [id number] 50mg Take 1 [facility] 50 mg 8-30 tablet by [facility] tablet 00:00: mouth [place] 00 every 8 [facility] (eight) Branch hours as needed for Nausea and Vomiting (N/V). TAKE 1 TABLET BY MOUTH EVERY 6 HOURS NEEDED FOR NAUSEA AND VOMITING promethazin 2022-0 Yes [id number] 50mg Take 1 [facility] tablet 00:00: mouth [place] 00 every 8 [facility] (eight) Branch hours as needed for Nausea and Vomiting (N/V). TAKE 1 TABLET BY MOUTH EVERY 6 HOURS NEEDED FOR NAUSEA AND VOMITING promethazin 2022-0 Yes [id number] 50mg Take 1 [facility]-30 tablet by [facility] tablet 00:00: mouth [place] 00 every 8 [facility] (eight) Branch hours as needed for Nausea and Vomiting (N/V). TAKE 1 TABLET BY MOUTH EVERY 6 HOURS NEEDED FOR NAUSEA AND VOMITING promethazin 2022-0 Yes [id number] 50mg Take 1 [facility] 8-30 tablet by [facility] tablet 00:00: mouth [place] 00 every 8 [facility] (eight) Branch hours as needed for Nausea and Vomiting (N/V). TAKE 1 TABLET BY MOUTH EVERY 6 HOURS NEEDED FOR NAUSEA AND VOMITING promethazin 2022-0 Yes [id number] 50mg Take 1 [facility] 8-30 tablet by [facility] tablet 00:00: mouth [place] 00 every 8 [facility] (eight) Branch hours as needed for Nausea and Vomiting (N/V). TAKE 1 TABLET BY MOUTH EVERY 6 HOURS NEEDED FOR NAUSEA AND VOMITING promethazin 2022-0 Yes [id number] 50mg Take 1 [facility] 8-30 tablet by [facility] tablet 00:00: mouth [place] 00 every 8 [facility] (eight) Branch hours as needed for Nausea and Vomiting (N/V). TAKE 1 TABLET BY MOUTH EVERY 6 HOURS NEEDED FOR NAUSEA AND VOMITING promethazin 2022-0 Yes [id number] 50mg Take 1 [facility] mg 8-30 tablet by [facility] tablet 00:00: mouth [place] 00 every 8 [facility] (eight) Branch hours as needed for Nausea and Vomiting (N/V). TAKE 1 TABLET BY MOUTH EVERY 6 HOURS NEEDED FOR NAUSEA AND VOMITING promethazin 2022-0 Yes [id number] 50mg Take 1 [facility] mg 8-30 tablet by [facility] tablet 00:00: mouth [place] 00 every 8 [facility] (eight) Branch hours as needed for Nausea and Vomiting (N/V). TAKE 1 TABLET BY MOUTH EVERY 6 HOURS NEEDED FOR NAUSEA AND VOMITING promethazin 2022-0 Yes [id number] 50mg Take 1 [facility] 50 mg 8-30 tablet by [facility] tablet 00:00: mouth [place] 00 every 8 [facility] (eight) Branch hours as needed for Nausea and Vomiting (N/V). TAKE 1 TABLET BY MOUTH EVERY 6 HOURS NEEDED FOR NAUSEA AND VOMITING promethazin 2-0 Yes [id number] 50mg Take 1 [facility] 50 mg 8-30 tablet by [facility] tablet 00:00: mouth [place] 00 every 8 [facility] (eight) Branch hours as needed for Nausea and Vomiting (N/V). TAKE 1 TABLET BY MOUTH EVERY 6 HOURS NEEDED FOR NAUSEA AND VOMITING promethazin 2-0 Yes [id number] 50mg Take 1 [facility] 50 mg 8-30 tablet by [facility] tablet 00:00: mouth [place] 00 every 8 [facility] (eight) Branch hours as needed for Nausea and Vomiting (N/V). TAKE 1 TABLET BY MOUTH EVERY 6 HOURS NEEDED FOR NAUSEA AND VOMITING promethazin 2022-0 Yes [id number] 50mg Take 1 [facility] mg 8-30 tablet by [facility] tablet 00:00: mouth [place] 00 every 8 [facility] (eight) Branch hours as needed for Nausea and Vomiting (N/V). TAKE 1 TABLET BY MOUTH EVERY 6 HOURS NEEDED FOR NAUSEA AND VOMITING promethazin 2022-0 Yes [id number] 50mg Take 1 [facility] 50 mg 8-30 tablet by [facility] tablet 00:00: mouth [place] 00 every 8 [facility] (eight) Branch hours as needed for Nausea and Vomiting (N/V). TAKE 1 TABLET BY MOUTH EVERY 6 HOURS NEEDED FOR NAUSEA AND VOMITING promethazin 2022-0 Yes [id number] 50mg Take 1 [facility] 50 mg 8-30 tablet by [facility] tablet 00:00: mouth [place] 00 every 8 [facility] (eight) Branch hours as needed for Nausea and Vomiting (N/V). TAKE 1 TABLET BY MOUTH EVERY 6 HOURS NEEDED FOR NAUSEA AND VOMITING promethazin 2022-0 Yes [id number] 50mg Take 1 [facility] 50 mg 8-30 tablet by [facility] tablet 00:00: mouth [place] 00 every 8 [facility] (eight) Branch hours as needed for Nausea and Vomiting (N/V). TAKE 1 TABLET BY MOUTH EVERY 6 HOURS NEEDED FOR NAUSEA AND VOMITING promethazin 2-0 Yes [id number] 50mg Take 1 [facility] 50 mg 8-30 tablet by [facility] tablet 00:00: mouth [place] 00 every 8 [facility] (eight) Branch hours as needed for Nausea and Vomiting (N/V). TAKE 1 TABLET BY MOUTH EVERY 6 HOURS NEEDED FOR NAUSEA AND VOMITING promethazin 2021-0 Yes [id number] 50mg Take 1 [facility] 50 mg 8-30 tablet by [facility] tablet 00:00: mouth [place] 00 every 8 [facility] (eight) Branch hours as needed for Nausea and Vomiting (N/V). TAKE 1 TABLET BY MOUTH EVERY 6 HOURS NEEDED FOR NAUSEA AND VOMITING promethazin 2021-0 Yes [id number] 50mg Take 1 [facility] 50 mg 8-30 tablet by [facility] tablet 00:00: mouth [place] 00 every 8 [facility] (eight) Branch hours as needed for Nausea and Vomiting (N/V). TAKE 1 TABLET BY MOUTH EVERY 6 HOURS NEEDED FOR NAUSEA AND VOMITING promethazin 2-0 Yes [id number] 50mg Take 1 [facility] 50 mg 8-30 tablet by [facility] tablet 00:00: mouth [place] 00 every 8 [facility] (eight) Branch hours as needed for Nausea and Vomiting (N/V). TAKE 1 TABLET BY MOUTH EVERY 6 HOURS NEEDED FOR NAUSEA AND VOMITING promethazin 2022-0 Yes [id number] 50mg Take 1 [facility] 50 mg 8-30 tablet by [facility] tablet 00:00: mouth [place] 00 every 8 [facility] (eight) Branch hours as needed for Nausea and Vomiting (N/V). TAKE 1 TABLET BY MOUTH EVERY 6 HOURS NEEDED FOR NAUSEA AND VOMITING promethazin 2022-0 Yes [id number] 50mg Take 1 [facility] 50 mg 8-30 tablet by [facility] tablet 00:00: mouth [place] 00 every 8 [facility] (eight) Branch hours as needed for Nausea and Vomiting (N/V). TAKE 1 TABLET BY MOUTH EVERY 6 HOURS NEEDED FOR NAUSEA AND VOMITING promethazin 2022-0 Yes [id number] 50mg Take 1 [facility] 50 mg 8-30 tablet by [facility] tablet 00:00: mouth [place] 00 every 8 [facility] (eight) Branch hours as needed for Nausea and Vomiting (N/V). TAKE 1 TABLET BY MOUTH EVERY 6 HOURS NEEDED FOR NAUSEA AND VOMITING promethazin 2022-0 Yes [id number] 50mg Take 1 [facility] 50 mg 8-30 tablet by [facility] tablet 00:00: mouth [place] 00 every 8 [facility] (eight) Branch hours as needed for Nausea and Vomiting (N/V). TAKE 1 TABLET BY MOUTH EVERY 6 HOURS NEEDED FOR NAUSEA AND VOMITING promethazin 2022-0 Yes [id number] 50mg Take 1 [facility] 50 mg 8-30 tablet by [facility] tablet 00:00: mouth [place] 00 every 8 [facility] (eight) Branch hours as needed for Nausea and Vomiting (N/V). TAKE 1 TABLET BY MOUTH EVERY 6 HOURS NEEDED FOR NAUSEA AND VOMITING promethazin 2022-0 Yes [id number] 50mg Take 1 [facility] 50 mg 8-30 tablet by [facility] tablet 00:00: mouth [place] 00 every 8 [facility] (eight) Branch hours as needed for Nausea and Vomiting (N/V). TAKE 1 TABLET BY MOUTH EVERY 6 HOURS NEEDED FOR NAUSEA AND VOMITING promethazin 2022-0 Yes [id number] 50mg Take 1 [facility] 50 mg 8-30 tablet by [facility] tablet 00:00: mouth [place] 00 every 8 [facility] (eight) Branch hours as needed for Nausea and Vomiting (N/V). TAKE 1 TABLET BY MOUTH EVERY 6 HOURS NEEDED FOR NAUSEA AND VOMITING promethazin 2022-0 Yes [id number] 50mg Take 1 [facility] 50 mg 8-30 tablet by [facility] tablet 00:00: mouth [place] 00 every 8 [facility] (eight) Branch hours as needed for Nausea and Vomiting (N/V). TAKE 1 TABLET BY MOUTH EVERY 6 HOURS NEEDED FOR NAUSEA AND VOMITING promethazin 2022-0 Yes [id number] 50mg Take 1 [facility] 50 mg 8-30 tablet by [facility] tablet 00:00: mouth [place] 00 every 8 [facility] (eight) Branch hours as needed for Nausea and Vomiting (N/V). TAKE 1 TABLET BY MOUTH EVERY 6 HOURS NEEDED FOR NAUSEA AND VOMITING promethazin 2022-0 Yes [id number] 50mg Take 1 [facility] 50 mg 8-30 tablet by [facility] tablet 00:00: mouth [place] 00 every 8 [facility] (eight) Branch hours as needed for Nausea and Vomiting (N/V). TAKE 1 TABLET BY MOUTH EVERY 6 HOURS NEEDED FOR NAUSEA AND VOMITING promethazin 2022-0 Yes [id number] 50mg Take 1 [facility] 50 mg 8-30 tablet by [facility] tablet 00:00: mouth [place] 00 every 8 [facility] (eight) Branch hours as needed for Nausea and Vomiting (N/V). TAKE 1 TABLET BY MOUTH EVERY 6 HOURS NEEDED FOR NAUSEA AND VOMITING promethazin 2022-0 Yes [id number] 50mg Take 1 [facility] 50 mg 8-30 tablet by [facility] tablet 00:00: mouth [place] 00 every 8 [facility] (eight) Branch hours as needed for Nausea and Vomiting (N/V). TAKE 1 TABLET BY MOUTH EVERY 6 HOURS NEEDED FOR NAUSEA AND VOMITING promethazin 2022-0 Yes [id number] 50mg Take 1 [facility] 50 mg 8-30 tablet by [facility] tablet 00:00: mouth [place] 00 every 8 [facility] (eight) Branch hours as needed for Nausea and Vomiting (N/V). TAKE 1 TABLET BY MOUTH EVERY 6 HOURS NEEDED FOR NAUSEA AND VOMITING promethazin 2022-0 Yes [id number] 50mg Take 1 [facility] 50 mg 8-30 tablet by [facility] tablet 00:00: mouth [place] 00 every 8 [facility] (eight) Branch hours as needed for Nausea and Vomiting (N/V). TAKE 1 TABLET BY MOUTH EVERY 6 HOURS NEEDED FOR NAUSEA AND VOMITING promethazin 2022-0 Yes [id number] 50mg Take 1 [facility] 50 mg 8-30 tablet by [facility] tablet 00:00: mouth [place] 00 every 8 [facility] (eight) Branch hours as needed for Nausea and Vomiting (N/V). TAKE 1 TABLET BY MOUTH EVERY 6 HOURS NEEDED FOR NAUSEA AND VOMITING promethazin 2022-0 Yes [id number] 50mg Take 1 [facility] 50 mg 8-30 tablet by [facility] tablet 00:00: mouth [place] 00 every 8 [facility] (eight) Branch hours as needed for Nausea and Vomiting (N/V). TAKE 1 TABLET BY MOUTH EVERY 6 HOURS NEEDED FOR NAUSEA AND VOMITING promethazin 2022-0 Yes [id number] 50mg Take 1 [facility] 50 mg 8-30 tablet by [facility] tablet 00:00: mouth [place] 00 every 8 [facility] (eight) Branch hours as needed for Nausea and Vomiting (N/V). TAKE 1 TABLET BY MOUTH EVERY 6 HOURS NEEDED FOR NAUSEA AND VOMITING promethazin 2022-0 Yes [id number] 50mg Take 1 [facility] 50 mg 8-30 tablet by [facility] tablet 00:00: mouth [place] 00 every 8 [facility] (eight) Branch hours as needed for Nausea and Vomiting (N/V). TAKE 1 TABLET BY MOUTH EVERY 6 HOURS NEEDED FOR NAUSEA AND VOMITING promethazin 2022-0 Yes [id number] 50mg Take 1 [facility] 50 mg 8-30 tablet by [facility] tablet 00:00: mouth [place] 00 every 8 [facility] (eight) Branch hours as needed for Nausea and Vomiting (N/V). TAKE 1 TABLET BY MOUTH EVERY 6 HOURS NEEDED FOR NAUSEA AND VOMITING promethazin 2022-0 Yes [id number] 50mg Take 1 [facility] 50 mg 8-30 tablet by [facility] tablet 00:00: mouth [place] 00 every 8 [facility] (eight) Branch hours as needed for Nausea and Vomiting (N/V). TAKE 1 TABLET BY MOUTH EVERY 6 HOURS NEEDED FOR NAUSEA AND VOMITING promethazin 2022-0 Yes [id number] 50mg Take 1 [facility] 50 mg 8-30 tablet by [facility] tablet 00:00: mouth [place] 00 every 8 [facility] (eight) Branch hours as needed for Nausea and Vomiting (N/V). TAKE 1 TABLET BY MOUTH EVERY 6 HOURS NEEDED FOR NAUSEA AND VOMITING promethazin 2022-0 Yes [id number] 50mg Take 1 [facility] 50 mg 8-30 tablet by [facility] tablet 00:00: mouth [place] 00 every 8 [facility] (eight) Branch hours as needed for Nausea and Vomiting (N/V). TAKE 1 TABLET BY MOUTH EVERY 6 HOURS NEEDED FOR NAUSEA AND VOMITING promethazin 2022-0 Yes [id number] 50mg Take 1 [facility] 50 mg 8-30 tablet by [facility] tablet 00:00: mouth [place] 00 every 8 [facility] (eight) Branch hours as needed for Nausea and Vomiting (N/V). TAKE 1 TABLET BY MOUTH EVERY 6 HOURS NEEDED FOR NAUSEA AND VOMITING promethazin 2022-0 Yes [id number] 50mg Take 1 [facility] 50 mg 8-30 tablet by [facility] tablet 00:00: mouth [place] 00 every 8 [facility] (eight) Branch hours as needed for Nausea and Vomiting (N/V). TAKE 1 TABLET BY MOUTH EVERY 6 HOURS NEEDED FOR NAUSEA AND VOMITING promethazin 2022-0 Yes [id number] 50mg Take 1 [facility] 50 mg 8-30 tablet by [facility] tablet 00:00: mouth [place] 00 every 8 [facility] (eight) Branch hours as needed for Nausea and Vomiting (N/V). TAKE 1 TABLET BY MOUTH EVERY 6 HOURS NEEDED FOR NAUSEA AND VOMITING promethazin 2022-0 Yes [id number] 50mg Take 1 [facility] 50 mg 8-30 tablet by [facility] tablet 00:00: mouth [place] 00 every 8 [facility] (eight) Branch hours as needed for Nausea and Vomiting (N/V). TAKE 1 TABLET BY MOUTH EVERY 6 HOURS NEEDED FOR NAUSEA AND VOMITING promethazin 2-0 Yes [id number] 50mg Take 1 [facility] 50 mg 8-30 tablet by [facility] tablet 00:00: mouth [place] 00 every 8 [facility] (eight) Branch hours as needed for Nausea and Vomiting (N/V). TAKE 1 TABLET BY MOUTH EVERY 6 HOURS NEEDED FOR NAUSEA AND VOMITING promethazin 2-0 Yes [id number] 50mg Take 1 [facility] 50 mg 8-30 tablet by [facility] tablet 00:00: mouth [place] 00 every 8 [facility] (eight) Branch hours as needed for Nausea and Vomiting (N/V). TAKE 1 TABLET BY MOUTH EVERY 6 HOURS NEEDED FOR NAUSEA AND VOMITING promethazin 2022-0 Yes [id number] 50mg Take 1 [facility] 50 mg 8-30 tablet by [facility] tablet 00:00: mouth [place] 00 every 8 [facility] (eight) Branch hours as needed for Nausea and Vomiting (N/V). TAKE 1 TABLET BY MOUTH EVERY 6 HOURS NEEDED FOR NAUSEA AND VOMITING promethazin 2022-0 Yes [id number] 50mg Take 1 [facility] 50 mg 8-30 tablet by [facility] tablet 00:00: mouth [place] 00 every 8 [facility] (eight) Branch hours as needed for Nausea and Vomiting (N/V). TAKE 1 TABLET BY MOUTH EVERY 6 HOURS NEEDED FOR NAUSEA AND VOMITING promethazin 2022-0 Yes [id number] 50mg Take 1 [facility] 50 mg 8-30 tablet by [facility] tablet 00:00: mouth [place] 00 every 8 [facility] (eight) Branch hours as needed for Nausea and Vomiting (N/V). TAKE 1 TABLET BY MOUTH EVERY 6 HOURS NEEDED FOR NAUSEA AND VOMITING promethazin 2022-0 Yes [id number] 50mg Take 1 [facility] 50 mg 8-30 tablet by [facility] tablet 00:00: mouth [place] 00 every 8 [facility] (eight) Branch hours as needed for Nausea and Vomiting (N/V). TAKE 1 TABLET BY MOUTH EVERY 6 HOURS NEEDED FOR NAUSEA AND VOMITING promethazin 2022-0 Yes [id number] 50mg Take 1 [facility] 50 mg 8-30 tablet by [facility] tablet 00:00: mouth [place] 00 every 8 [facility] (eight) Branch hours as needed for Nausea and Vomiting (N/V). TAKE 1 TABLET BY MOUTH EVERY 6 HOURS NEEDED FOR NAUSEA AND VOMITING promethazin 2022-0 Yes [id number] 50mg Take 1 [facility] 50 mg 8-30 tablet by [facility] tablet 00:00: mouth [place] 00 every 8 [facility] (eight) Branch hours as needed for Nausea and Vomiting (N/V). TAKE 1 TABLET BY MOUTH EVERY 6 HOURS NEEDED FOR NAUSEA AND VOMITING promethazin 2022-0 Yes [id number] 50mg Take 1 [facility] 50 mg 8-30 tablet by [facility] tablet 00:00: mouth [place] 00 every 8 [facility] (eight) Branch hours as needed for Nausea and Vomiting (N/V). TAKE 1 TABLET BY MOUTH EVERY 6 HOURS NEEDED FOR NAUSEA AND VOMITING promethazin 2022-0 Yes [id number] 50mg Take 1 [facility] 50 mg 8-30 tablet by [facility] tablet 00:00: mouth [place] 00 every 8 [facility] (eight) Branch hours as needed for Nausea and Vomiting (N/V). TAKE 1 TABLET BY MOUTH EVERY 6 HOURS NEEDED FOR NAUSEA AND VOMITING promethazin 2022-0 Yes [id number] 50mg Take 1 [facility] 50 mg 8-30 tablet by [facility] tablet 00:00: mouth [place] 00 every 8 [facility] (eight) Branch hours as needed for Nausea and Vomiting (N/V). TAKE 1 TABLET BY MOUTH EVERY 6 HOURS NEEDED FOR NAUSEA AND VOMITING promethazin 2022-0 Yes [id number] 50mg Take 1 [facility] 50 mg 8-30 tablet by [facility] tablet 00:00: mouth [place] 00 every 8 [facility] (eight) Branch hours as needed for Nausea and Vomiting (N/V). TAKE 1 TABLET BY MOUTH EVERY 6 HOURS NEEDED FOR NAUSEA AND VOMITING promethazin 2022-0 Yes [id number] 50mg Take 1 [facility] 50 mg 8-30 tablet by [facility] tablet 00:00: mouth [place] 00 every 8 [facility] (eight) Branch hours as needed for Nausea and Vomiting (N/V). TAKE 1 TABLET BY MOUTH EVERY 6 HOURS NEEDED FOR NAUSEA AND VOMITING promethazin 2022-0 Yes [id number] 50mg Take 1 [facility] 50 mg 8-30 tablet by [facility] tablet 00:00: mouth [place] 00 every 8 [facility] (eight) Branch hours as needed for Nausea and Vomiting (N/V). TAKE 1 TABLET BY MOUTH EVERY 6 HOURS NEEDED FOR NAUSEA AND VOMITING promethazin 2022-0 Yes [id number] 50mg Take 1 [facility] 50 mg 8-30 tablet by [facility] tablet 00:00: mouth [place] 00 every 8 [facility] (eight) Branch hours as needed for Nausea and Vomiting (N/V). TAKE 1 TABLET BY MOUTH EVERY 6 HOURS NEEDED FOR NAUSEA AND VOMITING promethazin 2022-0 Yes [id number] 50mg Take 1 [facility] 50 mg 8-30 tablet by [facility] tablet 00:00: mouth [place] 00 every 8 [facility] (eight) Branch hours as needed for Nausea and Vomiting (N/V). TAKE 1 TABLET BY MOUTH EVERY 6 HOURS NEEDED FOR NAUSEA AND VOMITING promethazin 2022-0 Yes [id number] 50mg Take 1 [facility] 50 mg 8-30 tablet by [facility] tablet 00:00: mouth [place] 00 every 8 [facility] (eight) Branch hours as needed for Nausea and Vomiting (N/V). TAKE 1 TABLET BY MOUTH EVERY 6 HOURS NEEDED FOR NAUSEA AND VOMITING promethazin 2022-0 Yes [id number] 50mg Take 1 [facility] 50 mg 8-30 tablet by [facility] tablet 00:00: mouth [place] 00 every 8 [facility] (eight) Branch hours as needed for Nausea and Vomiting (N/V). TAKE 1 TABLET BY MOUTH EVERY 6 HOURS NEEDED FOR NAUSEA AND VOMITING promethazin 2022-0 Yes [id number] 50mg Take 1 [facility] 50 mg 8-30 tablet by [facility] tablet 00:00: mouth [place] 00 every 8 [facility] (eight) Branch hours as needed for Nausea and Vomiting (N/V). TAKE 1 TABLET BY MOUTH EVERY 6 HOURS NEEDED FOR NAUSEA AND VOMITING promethazin 2022-0 Yes [id number] 50mg Take 1 [facility] 50 mg 8-30 tablet by [facility] tablet 00:00: mouth [place] 00 every 8 [facility] (eight) Branch hours as needed for Nausea and Vomiting (N/V). TAKE 1 TABLET BY MOUTH EVERY 6 HOURS NEEDED FOR NAUSEA AND VOMITING promethazin 2022-0 Yes [id number] 50mg Take 1 [facility] 50 mg 8-30 tablet by [facility] tablet 00:00: mouth [place] 00 every 8 [facility] (eight) Branch hours as needed for Nausea and Vomiting (N/V). TAKE 1 TABLET BY MOUTH EVERY 6 HOURS NEEDED FOR NAUSEA AND VOMITING promethazin 2022-0 Yes [id number] 50mg Take 1 [facility] 50 mg 8-30 tablet by [facility] tablet 00:00: mouth [place] 00 every 8 [facility] (eight) Branch hours as needed for Nausea and Vomiting (N/V). TAKE 1 TABLET BY MOUTH EVERY 6 HOURS NEEDED FOR NAUSEA AND VOMITING promethazin 2022-0 Yes [id number] 50mg Take 1 [facility] 50 mg 8-30 tablet by [facility] tablet 00:00: mouth [place] 00 every 8 [facility] (eight) Branch hours as needed for Nausea and Vomiting (N/V). TAKE 1 TABLET BY MOUTH EVERY 6 HOURS NEEDED FOR NAUSEA AND VOMITING promethazin 2022-0 Yes [id number] 50mg Take 1 [facility] 50 mg 8-30 tablet by [facility] tablet 00:00: mouth [place] 00 every 8 [facility] (eight) Branch hours as needed for Nausea and Vomiting (N/V). TAKE 1 TABLET BY MOUTH EVERY 6 HOURS NEEDED FOR NAUSEA AND VOMITING promethazin 2022-0 Yes [id number] 50mg Take 1 [facility] 50 mg 8-30 tablet by [facility] tablet 00:00: mouth [place] 00 every 8 [facility] (eight) Branch hours as needed for Nausea and Vomiting (N/V). TAKE 1 TABLET BY MOUTH EVERY 6 HOURS NEEDED FOR NAUSEA AND VOMITING promethazin 2022-0 Yes [id number] 50mg Take 1 [facility] 50 mg 8-30 tablet by [facility] tablet 00:00: mouth [place] 00 every 8 [facility] (eight) Branch hours as needed for Nausea and Vomiting (N/V). TAKE 1 TABLET BY MOUTH EVERY 6 HOURS NEEDED FOR NAUSEA AND VOMITING promethazin 2022-0 Yes [id number] 50mg Take 1 [facility] 50 mg 8-30 tablet by [facility] tablet 00:00: mouth [place] 00 every 8 [facility] (eight) Branch hours as needed for Nausea and Vomiting (N/V). TAKE 1 TABLET BY MOUTH EVERY 6 HOURS NEEDED FOR NAUSEA AND VOMITING promethazin 2022-0 Yes [id number] 50mg Take 1 [facility] 50 mg 8-30 tablet by [facility] tablet 00:00: mouth [place] 00 every 8 [facility] (eight) Branch hours as needed for Nausea and Vomiting (N/V). TAKE 1 TABLET BY MOUTH EVERY 6 HOURS NEEDED FOR NAUSEA AND VOMITING promethazin 2-0 Yes [id number] 50mg Take 1 [facility] 50 mg 8-30 tablet by [facility] tablet 00:00: mouth [place] 00 every 8 [facility] (eight) Branch hours as needed for Nausea and Vomiting (N/V). TAKE 1 TABLET BY MOUTH EVERY 6 HOURS NEEDED FOR NAUSEA AND VOMITING promethazin 2021-0 Yes [id number] 50mg Take 1 [facility] 50 mg 8-30 tablet by [facility] tablet 00:00: mouth [place] 00 every 8 [facility] (eight) Branch hours as needed for Nausea and Vomiting (N/V). TAKE 1 TABLET BY MOUTH EVERY 6 HOURS NEEDED FOR NAUSEA AND VOMITING promethazin 2021-0 Yes [id number] 50mg Take 1 [facility] 50 mg 8-30 tablet by [facility] tablet 00:00: mouth [place] 00 every 8 [facility] (eight) Branch hours as needed for Nausea and Vomiting (N/V). TAKE 1 TABLET BY MOUTH EVERY 6 HOURS NEEDED FOR NAUSEA AND VOMITING promethazin 2-0 Yes [id number] 50mg Take 1 [facility] 50 mg 8-30 tablet by [facility] tablet 00:00: mouth [place] 00 every 8 [facility] (eight) Branch hours as needed for Nausea and Vomiting (N/V). TAKE 1 TABLET BY MOUTH EVERY 6 HOURS NEEDED FOR NAUSEA AND VOMITING promethazin 2022-0 Yes [id number] 50mg Take 1 [facility] 50 mg 8-30 tablet by [facility] tablet 00:00: mouth [place] 00 every 8 [facility] (eight) Branch hours as needed for Nausea and Vomiting (N/V). TAKE 1 TABLET BY MOUTH EVERY 6 HOURS NEEDED FOR NAUSEA AND VOMITING promethazin 2022-0 Yes [id number] 50mg Take 1 [facility] 50 mg 8-30 tablet by [facility] tablet 00:00: mouth [place] 00 every 8 [facility] (eight) Branch hours as needed for Nausea and Vomiting (N/V). TAKE 1 TABLET BY MOUTH EVERY 6 HOURS NEEDED FOR NAUSEA AND VOMITING promethazin 2022-0 Yes [id number] 50mg Take 1 [facility] 50 mg 8-30 tablet by [facility] tablet 00:00: mouth [place] 00 every 8 [facility] (eight) Branch hours as needed for Nausea and Vomiting (N/V). TAKE 1 TABLET BY MOUTH EVERY 6 HOURS NEEDED FOR NAUSEA AND VOMITING promethazin 2022-0 Yes [id number] 50mg Take 1 [facility] 50 mg 8-30 tablet by [facility] tablet 00:00: mouth [place] 00 every 8 [facility] (eight) Branch hours as needed for Nausea and Vomiting (N/V). TAKE 1 TABLET BY MOUTH EVERY 6 HOURS NEEDED FOR NAUSEA AND VOMITING promethazin 2022-0 Yes [id number] 50mg Take 1 [facility] 50 mg 8-30 tablet by [facility] tablet 00:00: mouth [place] 00 every 8 [facility] (eight) Branch hours as needed for Nausea and Vomiting (N/V). TAKE 1 TABLET BY MOUTH EVERY 6 HOURS NEEDED FOR NAUSEA AND VOMITING promethazin 2022-0 Yes [id number] 50mg Take 1 [facility] 50 mg 8-30 tablet by [facility] tablet 00:00: mouth [place] 00 every 8 [facility] (eight) Branch hours as needed for Nausea and Vomiting (N/V). TAKE 1 TABLET BY MOUTH EVERY 6 HOURS NEEDED FOR NAUSEA AND VOMITING promethazin 2022-0 Yes [id number] 50mg Take 1 [facility] 50 mg 8-30 tablet by [facility] tablet 00:00: mouth [place] 00 every 8 [facility] (eight) Branch hours as needed for Nausea and Vomiting (N/V). TAKE 1 TABLET BY MOUTH EVERY 6 HOURS NEEDED FOR NAUSEA AND VOMITING promethazin 2022-0 Yes [id number] 50mg Take 1 [facility] 50 mg 8-30 tablet by [facility] tablet 00:00: mouth [place] 00 every 8 [facility] (eight) Branch hours as needed for Nausea and Vomiting (N/V). TAKE 1 TABLET BY MOUTH EVERY 6 HOURS NEEDED FOR NAUSEA AND VOMITING promethazin 2022-0 Yes [id number] 50mg Take 1 [facility] 50 mg 8-30 tablet by [facility] tablet 00:00: mouth [place] 00 every 8 [facility] (eight) Branch hours as needed for Nausea and Vomiting (N/V). TAKE 1 TABLET BY MOUTH EVERY 6 HOURS NEEDED FOR NAUSEA AND VOMITING promethazin 2022-0 Yes [id number] 50mg Take 1 [facility] 50 mg 8-30 tablet by [facility] tablet 00:00: mouth [place] 00 every 8 [facility] (eight) Branch hours as needed for Nausea and Vomiting (N/V). TAKE 1 TABLET BY MOUTH EVERY 6 HOURS NEEDED FOR NAUSEA AND VOMITING promethazin 2022-0 Yes [id number] 50mg Take 1 [facility] 50 mg 8-30 tablet by [facility] tablet 00:00: mouth [place] 00 every 8 [facility] (eight) Branch hours as needed for Nausea and Vomiting (N/V). TAKE 1 TABLET BY MOUTH EVERY 6 HOURS NEEDED FOR NAUSEA AND VOMITING promethazin 2022-0 Yes [id number] 50mg Take 1 [facility] 50 mg 8-30 tablet by [facility] tablet 00:00: mouth [place] 00 every 8 [facility] (eight) Branch hours as needed for Nausea and Vomiting (N/V). TAKE 1 TABLET BY MOUTH EVERY 6 HOURS NEEDED FOR NAUSEA AND VOMITING promethazin 2022-0 Yes [id number] 50mg Take 1 [facility] 50 mg 8-30 tablet by [facility] tablet 00:00: mouth [place] 00 every 8 [facility] (eight) Branch hours as needed for Nausea and Vomiting (N/V). TAKE 1 TABLET BY MOUTH EVERY 6 HOURS NEEDED FOR NAUSEA AND VOMITING promethazin 2022-0 Yes [id number] 50mg Take 1 [facility] 50 mg 8-30 tablet by [facility] tablet 00:00: mouth [place] 00 every 8 [facility] (eight) Branch hours as needed for Nausea and Vomiting (N/V). TAKE 1 TABLET BY MOUTH EVERY 6 HOURS NEEDED FOR NAUSEA AND VOMITING promethazin 2022-0 Yes [id number] 50mg Take 1 [facility] 50 mg 8-30 tablet by [facility] tablet 00:00: mouth [place] 00 every 8 [facility] (eight) Branch hours as needed for Nausea and Vomiting (N/V). TAKE 1 TABLET BY MOUTH EVERY 6 HOURS NEEDED FOR NAUSEA AND VOMITING promethazin 2022-0 Yes [id number] 50mg Take 1 [facility] 50 mg 8-30 tablet by [facility] tablet 00:00: mouth [place] 00 every 8 [facility] (eight) Branch hours as needed for Nausea and Vomiting (N/V). TAKE 1 TABLET BY MOUTH EVERY 6 HOURS NEEDED FOR NAUSEA AND VOMITING promethazin 2022-0 Yes [id number] 50mg Take 1 [facility] 50 mg 8-30 tablet by [facility] tablet 00:00: mouth [place] 00 every 8 [facility] (eight) Branch hours as needed for Nausea and Vomiting (N/V). TAKE 1 TABLET BY MOUTH EVERY 6 HOURS NEEDED FOR NAUSEA AND VOMITING promethazin 2022-0 Yes [id number] 50mg Take 1 [facility] 50 mg 8-30 tablet by [facility] of tablet 00:00: mouth [place] 00 every 8 Medical (eight) Branch hours as needed for Nausea and Vomiting (N/V). TAKE 1 TABLET BY MOUTH EVERY 6 HOURS NEEDED FOR NAUSEA AND VOMITING promethazin 2022-0 Yes [id number] 50mg Take 1 [facility]-30 tablet by [facility] tablet 00:00: mouth [place] 00 every 8 Medical (eight) Branch hours as needed for Nausea and Vomiting (N/V). TAKE 1 TABLET BY MOUTH EVERY 6 HOURS NEEDED FOR NAUSEA AND VOMITING promethazin 2022-0 Yes [id number] 50mg Take 1 [facility] 50 mg 8-30 tablet by [facility] tablet 00:00: mouth [place] 00 every 8 Medical (eight) Branch hours as needed for Nausea and Vomiting (N/V). TAKE 1 TABLET BY MOUTH EVERY 6 HOURS NEEDED FOR NAUSEA AND VOMITING promethazin 2022-0 Yes [id number] 50mg Take 1 [facility] 50 mg 8-30 tablet by [facility] tablet 00:00: mouth [place] 00 every 8 Medical (eight) Branch hours as needed for Nausea and Vomiting (N/V). TAKE 1 TABLET BY MOUTH EVERY 6 HOURS NEEDED FOR NAUSEA AND VOMITING promethazin 2022-0 Yes [id number] 50mg Take 1 [facility] 50 mg 8-30 tablet by [facility] tablet 00:00: mouth [place] 00 every 8 Medical (eight) Branch hours as needed for Nausea and Vomiting (N/V). TAKE 1 TABLET BY MOUTH EVERY 6 HOURS NEEDED FOR NAUSEA AND VOMITING promethazin 2022-0 Yes [id number] 50mg Take 1 [facility] 50 mg 8-30 tablet by [facility] tablet 00:00: mouth [place] 00 every 8 Medical (eight) Branch hours as needed for Nausea and Vomiting (N/V). TAKE 1 TABLET BY MOUTH EVERY 6 HOURS NEEDED FOR NAUSEA AND VOMITING promethazin 2022-0 Yes [id number] 50mg Take 1 [facility] 50 mg 8-30 tablet by [facility] tablet 00:00: mouth [place] 00 every 8 Medical (eight) Branch hours as needed for Nausea and Vomiting (N/V). TAKE 1 TABLET BY MOUTH EVERY 6 HOURS NEEDED FOR NAUSEA AND VOMITING promethazin 2022-0 Yes [id number] 50mg Take 1 [facility] 50 mg 8-30 tablet by [facility] tablet 00:00: mouth [place] 00 every 8 Medical (eight) Branch hours as needed for Nausea and Vomiting (N/V). TAKE 1 TABLET BY MOUTH EVERY 6 HOURS NEEDED FOR NAUSEA AND VOMITING promethazin 2022-0 Yes [id number] 50mg Take 1 [facility] 50 mg 8-30 tablet by [facility] tablet 00:00: mouth [place] 00 every 8 Medical (eight) Branch hours as needed for Nausea and Vomiting (N/V). TAKE 1 TABLET BY MOUTH EVERY 6 HOURS NEEDED FOR NAUSEA AND VOMITING promethazin 2-0 Yes [id number] 50mg Take 1 [facility] 50 mg 8-30 tablet by [facility] tablet 00:00: mouth [place] 00 every 8 Medical (eight) Branch hours as needed for Nausea and Vomiting (N/V). TAKE 1 TABLET BY MOUTH EVERY 6 HOURS NEEDED FOR NAUSEA AND VOMITING promethazin 2-0 Yes [id number] 50mg Take 1 [facility] 50 mg 8-30 tablet by [facility] tablet 00:00: mouth [place] 00 every 8 Medical (eight) Branch hours as needed for Nausea and Vomiting (N/V). TAKE 1 TABLET BY MOUTH EVERY 6 HOURS NEEDED FOR NAUSEA AND VOMITING promethazin 2-0 Yes [id number] 50mg Take 1 [facility] 50 mg 8-30 tablet by [facility] tablet 00:00: mouth [place] 00 every 8 Medical (eight) Branch hours as needed for Nausea and Vomiting (N/V). TAKE 1 TABLET BY MOUTH EVERY 6 HOURS NEEDED FOR NAUSEA AND VOMITING promethazin 2022-0 Yes [id number] 50mg Take 1 [facility] 50 mg 8-30 tablet by [facility] tablet 00:00: mouth [place] 00 every 8 Medical (eight) Branch hours as needed for Nausea and Vomiting (N/V). TAKE 1 TABLET BY MOUTH EVERY 6 HOURS NEEDED FOR NAUSEA AND VOMITING promethazin 2022-0 Yes [id number] 50mg Take 1 [facility] 50 mg 8-30 tablet by [facility] tablet 00:00: mouth [place] 00 every 8 Medical (eight) Branch hours as needed for Nausea and Vomiting (N/V). TAKE 1 TABLET BY MOUTH EVERY 6 HOURS NEEDED FOR NAUSEA AND VOMITING promethazin 2022-0 Yes [id number] 50mg Take 1 [facility] 50 mg 8-30 tablet by [facility] tablet 00:00: mouth [place] 00 every 8 Medical (eight) Branch hours as needed for Nausea and Vomiting (N/V). TAKE 1 TABLET BY MOUTH EVERY 6 HOURS NEEDED FOR NAUSEA AND VOMITING promethazin 2022-0 Yes [id number] 50mg Take 1 [facility] 50 mg 8-30 tablet by [facility] tablet 00:00: mouth [place] 00 every 8 Medical (eight) Branch hours as needed for Nausea and Vomiting (N/V). TAKE 1 TABLET BY MOUTH EVERY 6 HOURS NEEDED FOR NAUSEA AND VOMITING promethazin 2022-0 Yes [id number] 50mg Take 1 [facility] 50 mg 8-30 tablet by [facility] tablet 00:00: mouth [place] 00 every 8 Medical (eight) Branch hours as needed for Nausea and Vomiting (N/V). TAKE 1 TABLET BY MOUTH EVERY 6 HOURS NEEDED FOR NAUSEA AND VOMITING promethazin 2022-0 Yes [id number] 50mg Take 1 [facility] 50 mg 8-30 tablet by [facility] tablet 00:00: mouth [place] 00 every 8 Medical (eight) Branch hours as needed for Nausea and Vomiting (N/V). TAKE 1 TABLET BY MOUTH EVERY 6 HOURS NEEDED FOR NAUSEA AND VOMITING promethazin 2022-0 Yes [id number] 50mg Take 1 [facility] 50 mg 8-30 tablet by [facility] tablet 00:00: mouth [place] 00 every 8 Medical (eight) Branch hours as needed for Nausea and Vomiting (N/V). TAKE 1 TABLET BY MOUTH EVERY 6 HOURS NEEDED FOR NAUSEA AND VOMITING promethazin 2022-0 Yes [id number] 50mg Take 1 [facility] 50 mg 8-30 tablet by [facility] tablet 00:00: mouth [place] 00 every 8 Medical (eight) Branch hours as needed for Nausea and Vomiting (N/V). TAKE 1 TABLET BY MOUTH EVERY 6 HOURS NEEDED FOR NAUSEA AND VOMITING promethazin 2022-0 Yes [id number] 50mg Take 1 [facility] 50 mg 8-30 tablet by [facility] tablet 00:00: mouth [place] 00 every 8 Medical (eight) Branch hours as needed for Nausea and Vomiting (N/V). TAKE 1 TABLET BY MOUTH EVERY 6 HOURS NEEDED FOR NAUSEA AND VOMITING promethazin 2022-0 Yes [id number] 50mg Take 1 [facility] 50 mg 8-30 tablet by [facility] tablet 00:00: mouth [place] 00 every 8 Medical (eight) Branch hours as needed for Nausea and Vomiting (N/V). TAKE 1 TABLET BY MOUTH EVERY 6 HOURS NEEDED FOR NAUSEA AND VOMITING promethazin 2022-0 Yes [id number] 50mg Take 1 [facility] 50 mg 8-30 tablet by [facility] tablet 00:00: mouth [place] 00 every 8 Medical (eight) Branch hours as needed for Nausea and Vomiting (N/V). TAKE 1 TABLET BY MOUTH EVERY 6 HOURS NEEDED FOR NAUSEA AND VOMITING promethazin 2022-0 Yes [id number] 50mg Take 1 [facility] 50 mg 8-30 tablet by [facility] tablet 00:00: mouth [place] 00 every 8 Medical (eight) Branch hours as needed for Nausea and Vomiting (N/V). TAKE 1 TABLET BY MOUTH EVERY 6 HOURS NEEDED FOR NAUSEA AND VOMITING promethazin 2022-0 Yes [id number] 50mg Take 1 [facility] 50 mg 8-30 tablet by [facility] tablet 00:00: mouth [place] 00 every 8 Medical (eight) Branch hours as needed for Nausea and Vomiting (N/V). TAKE 1 TABLET BY MOUTH EVERY 6 HOURS NEEDED FOR NAUSEA AND VOMITING promethazin 2022-0 Yes [id number] 50mg Take 1 [facility] 50 mg 8-30 tablet by [facility] tablet 00:00: mouth [place] 00 every 8 Medical (eight) Branch hours as needed for Nausea and Vomiting (N/V). TAKE 1 TABLET BY MOUTH EVERY 6 HOURS NEEDED FOR NAUSEA AND VOMITING promethazin 2022-0 Yes [id number] 50mg Take 1 [facility] 50 mg 8-30 tablet by [facility] tablet 00:00: mouth [place] 00 every 8 Medical (eight) Branch hours as needed for Nausea and Vomiting (N/V). TAKE 1 TABLET BY MOUTH EVERY 6 HOURS NEEDED FOR NAUSEA AND VOMITING promethazin 2022-0 Yes [id number] 50mg Take 1 [facility] 50 mg 8-30 tablet by [facility] tablet 00:00: mouth [place] 00 every 8 Medical (eight) Branch hours as needed for Nausea and Vomiting (N/V). TAKE 1 TABLET BY MOUTH EVERY 6 HOURS NEEDED FOR NAUSEA AND VOMITING promethazin 2022-0 Yes [id number] 50mg Take 1 [facility] 50 mg 8-30 tablet by [facility] tablet 00:00: mouth [place] 00 every 8 Medical (eight) Branch hours as needed for Nausea and Vomiting (N/V). TAKE 1 TABLET BY MOUTH EVERY 6 HOURS NEEDED FOR NAUSEA AND VOMITING promethazin 2022-0 Yes [id number] 50mg Take 1 [facility] 50 mg 8-30 tablet by [facility] tablet 00:00: mouth [place] 00 every 8 Medical (eight) Branch hours as needed for Nausea and Vomiting (N/V). TAKE 1 TABLET BY MOUTH EVERY 6 HOURS NEEDED FOR NAUSEA AND VOMITING promethazin 2-0 Yes [id number] 50mg Take 1 [facility] 50 mg 8-30 tablet by [facility] tablet 00:00: mouth [place] 00 every 8 Medical (eight) Branch hours as needed for Nausea and Vomiting (N/V). TAKE 1 TABLET BY MOUTH EVERY 6 HOURS NEEDED FOR NAUSEA AND VOMITING promethazin 2-0 Yes [id number] 50mg Take 1 [facility] 50 mg 8-30 tablet by [facility] tablet 00:00: mouth [place] 00 every 8 Medical (eight) Branch hours as needed for Nausea and Vomiting (N/V). TAKE 1 TABLET BY MOUTH EVERY 6 HOURS NEEDED FOR NAUSEA AND VOMITING promethazin 2021-0 Yes [id number] 50mg Take 1 [facility] 50 mg 8-30 tablet by [facility] tablet 00:00: mouth [place] 00 every 8 Medical (eight) Branch hours as needed for Nausea and Vomiting (N/V). TAKE 1 TABLET BY MOUTH EVERY 6 HOURS NEEDED FOR NAUSEA AND VOMITING promethazin 2-0 Yes [id number] 50mg Take 1 [facility] 50 mg 8-30 tablet by [facility] tablet 00:00: mouth [place] 00 every 8 Medical (eight) Branch hours as needed for Nausea and Vomiting (N/V). TAKE 1 TABLET BY MOUTH EVERY 6 HOURS NEEDED FOR NAUSEA AND VOMITING promethazin 2-0 2023- No [id number] 50mg Take 1 [facility] 50 mg 8-30 03-09 tablet by [facility] tablet 00:00: 00:00 mouth [place] 00 :00 every 8 Medical (eight) Branch hours as needed for Nausea and Vomiting (N/V). TAKE 1 TABLET BY MOUTH EVERY 6 HOURS NEEDED FOR NAUSEA AND VOMITING promethazin 2021-0 3- No [id number] 50mg Take 1 [facility] 50 mg 8-30 -01 tablet by [facility] tablet 00:00: 00:00 mouth [place] 00 :00 every 8 Medical (eight) Branch hours as needed for Nausea and Vomiting (N/V). TAKE 1 TABLET BY MOUTH EVERY 6 HOURS NEEDED FOR NAUSEA AND VOMITING nadoloL 40 2021-0 2021- No [id number] 40mg Take 1 [facility] mg tablet 8-30 10-12 tablet by [facility] of 00:00: 00:00 mouth in [place] 00 :00 the Medical morning. Branch nadoloL 40 2021-0 2021- No [id number] 40mg Take 1 [facility] mg tablet 8-30 10-12 tablet by [facility] of 00:00: 00:00 mouth in [place] 00 :00 the Medical morning. Branch nadoloL 40 2021-0 2021- No [id number] 40mg Take 1 [facility] mg tablet 8-30 10-12 tablet by [facility] of 00:00: 00:00 mouth in [place] 00 :00 the Medical morning. Branch nadoloL 40 2021-0 2021- No [id number] 40mg Take 1 [facility] mg tablet 8-30 10-12 tablet by [facility] of 00:00: 00:00 mouth in [place] 00 :00 the Medical morning. Branch nadoloL 40 2021-0 2021- No [id number] 40mg Take 1 [facility] mg tablet 8-30 10-12 tablet by [facility] of 00:00: 00:00 mouth in [place] 00 :00 the Medical morning. Branch nadoloL 40 2021-0 2021- No [id number] 40mg Take 1 [facility] mg tablet 8-30 10-12 tablet by [facility] of 00:00: 00:00 mouth in [place] 00 :00 the Medical morning. Branch nadoloL 40 2021-0 2021- No [id number] 40mg Take 1 [facility] mg tablet 8-30 10-12 tablet by [facility] of 00:00: 00:00 mouth in [place] 00 :00 the Medical morning. Branch nadoloL 40 2021-0 2021- No [id number] 40mg Take 1 [facility] mg tablet 8-30 10-12 tablet by [facility] of 00:00: 00:00 mouth in [place] 00 :00 the Medical morning. Branch nadoloL 40 2021-0 2- No [id number] 40mg Take 1 [facility] mg tablet 8-30 10-12 tablet by [facility] of 00:00: 00:00 mouth in [place] 00 :00 the Medical morning. Branch nadoloL 40 2021-0 2- No [id number] 40mg Take 1 [facility] mg tablet 8-30 10-12 tablet by [facility] of 00:00: 00:00 mouth in [place] 00 :00 the Medical morning. Branch nadoloL 40 2021-0 2- No [id number] 40mg Take 1 [facility] mg tablet 8-30 10-12 tablet by [facility] of 00:00: 00:00 mouth in [place] 00 :00 the Medical morning. Branch nadoloL 40 2021-0 2- No [id number] 40mg Take 1 [facility] mg tablet 8-30 10-12 tablet by [facility] of 00:00: 00:00 mouth in [place] 00 :00 the Medical morning. Branch tiZANidine 2021-0 Yes [id number] 4mg Take 1 [facility] 4 mg tablet 8-17 tablet by [facility] of 00:00: mouth [place] 00 every 8 Medical (eight) Branch hours as needed (severe muscle spams). tiZANidine 2021-0 Yes [id number] 4mg Take 1 [facility] 4 mg tablet 8-17 tablet by ity of 00:00: [facility] 00 every 8 Medical (eight) Branch hours as needed (severe muscle spams). tiZANidine 2021-0 Yes [id number] 4mg Take 1 [facility] n[facility] 4 mg tablet 8-17 tablet by ity of 00:00: [facility] 00 every 8 Medical (eight) Branch hours as needed (severe muscle spams). tiZANidine 2021-0 Yes [id number] 4mg Take 1 [facility] 4 mg tablet 8-17 tablet by ity of 00:00: mouth [place] 00 every 8 Medical (eight) Branch hours as needed (severe muscle spams). tiZANidine 2-0 Yes [id number] 4mg Take 1 [facility] 4 mg tablet 8-17 tablet by ity of 00:00: mouth [place] 00 every 8 Medical (eight) Branch hours as needed (severe muscle spams). tiZANidine 2021-0 Yes [id number] 4mg Take 1 [facility] 4 mg tablet 8-17 tablet by it[facility] of 00:00: mouth [place] 00 every 8 Medical (eight) Branch hours as needed (severe muscle spams). tiZANidine 2022-0 Yes [id number] 4mg Take 1 [facility] 4 mg tablet 8-17 tablet by it[facility] of 00:00: mouth [place] 00 every 8 Medical (eight) Branch hours as needed (severe muscle spams). tiZANidine 2-0 Yes [id number] 4mg Take 1 [facility] 4 mg tablet 8-17 tablet by it[facility] of 00:00: mouth [place] 00 every 8 Medical (eight) Branch hours as needed (severe muscle spams). tiZANidine 2022-0 Yes [id number] 4mg Take 1 [facility] 4 mg tablet 8-17 tablet by [facility] of 00:00: mouth [place] 00 every 8 Medical (eight) Branch hours as needed (severe muscle spams). tiZANidine 2-0 Yes [id number] 4mg Take 1 [facility] 4 mg tablet 8-17 tablet by [facility] of 00:00: mouth [place] 00 every 8 Medical (eight) Branch hours as needed (severe muscle spams). tiZANidine 2-0 Yes [id number] 4mg Take 1 [facility] 4 mg tablet 8-17 tablet by ity of 00:00: mouth [place] 00 every 8 Medical (eight) Branch hours as needed (severe muscle spams). tiZANidine 2-0 Yes [id number] 4mg Take 1 [facility] 4 mg tablet 8-17 tablet by ity of 00:00: mouth [place] 00 every 8 Medical (eight) Branch hours as needed (severe muscle spams). tiZANidine 2-0 Yes [id number] 4mg Take 1 [facility] 4 mg tablet 8-17 tablet by it[facility] of 00:00: mouth [place] 00 every 8 Medical (eight) Branch hours as needed (severe muscle spams). tiZANidine 2022-0 Yes [id number] 4mg Take 1 [facility] 4 mg tablet 8-17 tablet by [facility] of 00:00: mouth [place] 00 every 8 Medical (eight) Branch hours as needed (severe muscle spams). tiZANidine 2022-0 Yes [id number] 4mg Take 1 [facility] 4 mg tablet 8-17 tablet by [facility] of 00:00: mouth [place] 00 every 8 Medical (eight) Branch hours as needed (severe muscle spams). tiZANidine 2-0 Yes [id number] 4mg Take 1 [facility] 4 mg tablet 8-17 tablet by [facility] of 00:00: mouth [place] 00 every 8 Medical (eight) Branch hours as needed (severe muscle spams). tiZANidine 2-0 Yes [id number] 4mg Take 1 [facility] 4 mg tablet 8-17 tablet by it[facility] of 00:00: mouth [place] 00 every 8 Medical (eight) Branch hours as needed (severe muscle spams). tiZANidine 2-0 Yes [id number] 4mg Take 1 [facility] 4 mg tablet 8-17 tablet by ity of 00:00: mouth [place] 00 every 8 Medical (eight) Branch hours as needed (severe muscle spams). tiZANidine 2-0 Yes [id number] 4mg Take 1 [facility] 4 mg tablet 8-17 tablet by ity of 00:00: mouth [place] 00 every 8 Medical (eight) Branch hours as needed (severe muscle spams). tiZANidine 2-0 Yes [id number] 4mg Take 1 [facility] 4 mg tablet 8-17 tablet by [facility] of 00:00: mouth [place] 00 every 8 Medical (eight) Branch hours as needed (severe muscle spams). tiZANidine 2-0 Yes [id number] 4mg Take 1 [facility] 4 mg tablet 8-17 tablet by [facility] of 00:00: mouth [place] 00 every 8 Medical (eight) Branch hours as needed (severe muscle spams). tiZANidine 2-0 Yes [id number] 4mg Take 1 [facility] 4 mg tablet 8-17 tablet by it[facility] of 00:00: mouth [place] 00 every 8 Medical (eight) Branch hours as needed (severe muscle spams). tiZANidine 2-0 Yes [id number] 4mg Take 1 [facility] 4 mg tablet 8-17 tablet by it[facility] of 00:00: mouth [place] 00 every 8 Medical (eight) Branch hours as needed (severe muscle spams). tiZANidine 2022-0 Yes [id number] 4mg Take 1 [facility] 4 mg tablet 8-17 tablet by it[facility] of 00:00: mouth [place] 00 every 8 Medical (eight) Branch hours as needed (severe muscle spams). tiZANidine 2022-0 Yes [id number] 4mg Take 1 [facility] 4 mg tablet 8-17 tablet by [facility] of 00:00: mouth [place] 00 every 8 Medical (eight) Branch hours as needed (severe muscle spams). tiZANidine 2-0 Yes [id number] 4mg Take 1 [facility] 4 mg tablet 8-17 tablet by [facility] of 00:00: mouth [place] 00 every 8 Medical (eight) Branch hours as needed (severe muscle spams). tiZANidine 2-0 Yes [id number] 4mg Take 1 [facility] 4 mg tablet 8-17 tablet by [facility] of 00:00: mouth [place] 00 every 8 Medical (eight) Branch hours as needed (severe muscle spams). tiZANidine 2-0 Yes [id number] 4mg Take 1 [facility] 4 mg tablet 8-17 tablet by [facility] of 00:00: mouth [place] 00 every 8 Medical (eight) Branch hours as needed (severe muscle spams). tiZANidine 2-0 Yes [id number] 4mg Take 1 [facility] 4 mg tablet 8-17 tablet by [facility] of 00:00: mouth [place] 00 every 8 Medical (eight) Branch hours as needed (severe muscle spams). tiZANidine 2-0 Yes [id number] 4mg Take 1 [facility] 4 mg tablet 8-17 tablet by [facility] of 00:00: mouth [place] 00 every 8 Medical (eight) Branch hours as needed (severe muscle spams). tiZANidine 2-0 Yes [id number] 4mg Take 1 [facility] 4 mg tablet 8-17 tablet by [facility] of 00:00: mouth [place] 00 every 8 Medical (eight) Branch hours as needed (severe muscle spams). tiZANidine 2022-0 Yes [id number] 4mg Take 1 [facility] 4 mg tablet 8-17 tablet by [facility] of 00:00: mouth [place] 00 every 8 Medical (eight) Branch hours as needed (severe muscle spams). tiZANidine 2022-0 Yes [id number] 4mg Take 1 [facility] 4 mg tablet 8-17 tablet by [facility] of 00:00: mouth [place] 00 every 8 Medical (eight) Branch hours as needed (severe muscle spams). tiZANidine 2-0 Yes [id number] 4mg Take 1 [facility] 4 mg tablet 8-17 tablet by [facility] of 00:00: mouth [place] 00 every 8 Medical (eight) Branch hours as needed (severe muscle spams). tiZANidine 2-0 Yes [id number] 4mg Take 1 [facility] 4 mg tablet 8-17 tablet by [facility] of 00:00: mouth [place] 00 every 8 Medical (eight) Branch hours as needed (severe muscle spams). tiZANidine 2-0 Yes [id number] 4mg Take 1 [facility] 4 mg tablet 8-17 tablet by [facility] of 00:00: mouth [place] 00 every 8 Medical (eight) Branch hours as needed (severe muscle spams). tiZANidine 2-0 Yes [id number] 4mg Take 1 [facility] 4 mg tablet 8-17 tablet by [facility] of 00:00: mouth [place] 00 every 8 Medical (eight) Branch hours as needed (severe muscle spams). tiZANidine 2-0 Yes [id number] 4mg Take 1 [facility] 4 mg tablet 8-17 tablet by [facility] of 00:00: mouth [place] 00 every 8 Medical (eight) Branch hours as needed (severe muscle spams). tiZANidine 2-0 Yes [id number] 4mg Take 1 [facility] 4 mg tablet 8-17 tablet by [facility]y of 00:00: mouth [place] 00 every 8 Medical (eight) Branch hours as needed (severe muscle spams). tiZANidine 2-0 Yes [id number] 4mg Take 1 [facility] 4 mg tablet 8-17 tablet by [facility] of 00:00: mouth [place] 00 every 8 Medical (eight) Branch hours as needed (severe muscle spams). tiZANidine 2-0 Yes [id number] 4mg Take 1 [facility] 4 mg tablet 8-17 tablet by [facility] of 00:00: mouth [place] 00 every 8 Medical (eight) Branch hours as needed (severe muscle spams). tiZANidine 2022-0 Yes [id number] 4mg Take 1 [facility] 4 mg tablet 8-17 tablet by [facility] of 00:00: mouth [place] 00 every 8 Medical (eight) Branch hours as needed (severe muscle spams). tiZANidine 2022-0 Yes [id number] 4mg Take 1 [facility] 4 mg tablet 8-17 tablet by [facility] of 00:00: mouth [place] 00 every 8 Medical (eight) Branch hours as needed (severe muscle spams). tiZANidine 2-0 Yes [id number] 4mg Take 1 [facility] 4 mg tablet 8-17 tablet by [facility] of 00:00: mouth [place] 00 every 8 Medical (eight) Branch hours as needed (severe muscle spams). tiZANidine 2-0 Yes [id number] 4mg Take 1 [facility] 4 mg tablet 8-17 tablet by [facility]y of 00:00: mouth [place] 00 every 8 Medical (eight) Branch hours as needed (severe muscle spams). tiZANidine 2-0 Yes [id number] 4mg Take 1 [facility] 4 mg tablet 8-17 tablet by [facility] of 00:00: mouth [place] 00 every 8 Medical (eight) Branch hours as needed (severe muscle spams). tiZANidine 2-0 Yes [id number] 4mg Take 1 [facility] 4 mg tablet 8-17 tablet by [facility]y of 00:00: mouth [place] 00 every 8 Medical (eight) Branch hours as needed (severe muscle spams). tiZANidine 2-0 Yes [id number] 4mg Take 1 [facility] 4 mg tablet 8-17 tablet by [facility]y of 00:00: mouth [place] 00 every 8 Medical (eight) Branch hours as needed (severe muscle spams). tiZANidine 2-0 Yes [id number] 4mg Take 1 [facility] 4 mg tablet 8-17 tablet by [facility]y of 00:00: mouth [place] 00 every 8 Medical (eight) Branch hours as needed (severe muscle spams). tiZANidine 2-0 Yes [id number] 4mg Take 1 [facility] 4 mg tablet 8-17 tablet by [facility]y of 00:00: mouth [place] 00 every 8 Medical (eight) Branch hours as needed (severe muscle spams). tiZANidine 2022-0 Yes [id number] 4mg Take 1 [facility] 4 mg tablet 8-17 tablet by [facility] of 00:00: mouth [place] 00 every 8 Medical (eight) Branch hours as needed (severe muscle spams). tiZANidine 2-0 Yes [id number] 4mg Take 1 [facility] 4 mg tablet 8-17 tablet by [facility] of 00:00: mouth [place] 00 every 8 Medical (eight) Branch hours as needed (severe muscle spams). tiZANidine 2-0 Yes [id number] 4mg Take 1 [facility] 4 mg tablet 8-17 tablet by [facility] of 00:00: mouth [place] 00 every 8 Medical (eight) Branch hours as needed (severe muscle spams). tiZANidine 2-0 Yes [id number] 4mg Take 1 [facility] 4 mg tablet 8-17 tablet by [facility]y of 00:00: mouth [place] 00 every 8 Medical (eight) Branch hours as needed (severe muscle spams). tiZANidine 2022-0 Yes [id number] 4mg Take 1 [facility] 4 mg tablet 8-17 tablet by [facility]y of 00:00: mouth [place] 00 every 8 Medical (eight) Branch hours as needed (severe muscle spams). tiZANidine 2-0 Yes [id number] 4mg Take 1 [facility] 4 mg tablet 8-17 tablet by [facility]y of 00:00: mouth [place] 00 every 8 Medical (eight) Branch hours as needed (severe muscle spams). tiZANidine 2-0 Yes [id number] 4mg Take 1 [facility] 4 mg tablet 8-17 tablet by [facility]y of 00:00: mouth [place] 00 every 8 Medical (eight) Branch hours as needed (severe muscle spams). tiZANidine 2-0 Yes [id number] 4mg Take 1 [facility] 4 mg tablet 8-17 tablet by [facility] of 00:00: mouth [place] 00 every 8 Medical (eight) Branch hours as needed (severe muscle spams). tiZANidine 2-0 Yes [id number] 4mg Take 1 [facility] 4 mg tablet 8-17 tablet by [facility] of 00:00: mouth [place] 00 every 8 Medical (eight) Branch hours as needed (severe muscle spams). tiZANidine 2022-0 Yes [id number] 4mg Take 1 [facility] 4 mg tablet 8-17 tablet by [facility] of 00:00: mouth [place] 00 every 8 Medical (eight) Branch hours as needed (severe muscle spams). tiZANidine 2022-0 Yes [id number] 4mg Take 1 [facility] 4 mg tablet 8-17 tablet by [facility]y of 00:00: mouth [place] 00 every 8 Medical (eight) Branch hours as needed (severe muscle spams). tiZANidine 2022-0 Yes [id number] 4mg Take 1 [facility] 4 mg tablet 8-17 tablet by [facility]y of 00:00: mouth [place] 00 every 8 Medical (eight) Branch hours as needed (severe muscle spams). tiZANidine 2-0 Yes [id number] 4mg Take 1 [facility] 4 mg tablet 8-17 tablet by [facility]y of 00:00: mouth [place] 00 every 8 Medical (eight) Branch hours as needed (severe muscle spams). tiZANidine 2-0 Yes [id number] 4mg Take 1 [facility] 4 mg tablet 8-17 tablet by ity of 00:00: mouth [place] 00 every 8 Medical (eight) Branch hours as needed (severe muscle spams). tiZANidine 2-0 Yes [id number] 4mg Take 1 [facility] 4 mg tablet 8-17 tablet by [facility]y of 00:00: mouth [place] 00 every 8 Medical (eight) Branch hours as needed (severe muscle spams). tiZANidine 2-0 Yes [id number] 4mg Take 1 [facility] 4 mg tablet 8-17 tablet by [facility]y of 00:00: mouth [place] 00 every 8 Medical (eight) Branch hours as needed (severe muscle spams). tiZANidine 2-0 Yes [id number] 4mg Take 1 [facility] 4 mg tablet 8-17 tablet by ity of 00:00: mouth [place] 00 every 8 Medical (eight) Branch hours as needed (severe muscle spams). tiZANidine 2-0 Yes [id number] 4mg Take 1 [facility] 4 mg tablet 8-17 tablet by [facility]y of 00:00: mouth [place] 00 every 8 Medical (eight) Branch hours as needed (severe muscle spams). tiZANidine 2022-0 Yes [id number] 4mg Take 1 [facility] 4 mg tablet 8-17 tablet by [facility]y of 00:00: mouth [place] 00 every 8 Medical (eight) Branch hours as needed (severe muscle spams). tiZANidine 2022-0 Yes [id number] 4mg Take 1 [facility] 4 mg tablet 8-17 tablet by ity of 00:00: mouth [place] 00 every 8 Medical (eight) Branch hours as needed (severe muscle spams). tiZANidine 2-0 Yes [id number] 4mg Take 1 [facility] 4 mg tablet 8-17 tablet by [facility]y of 00:00: mouth [place] 00 every 8 Medical (eight) Branch hours as needed (severe muscle spams). tiZANidine 2-0 Yes [id number] 4mg Take 1 [facility] 4 mg tablet 8-17 tablet by [facility]y of 00:00: mouth [place] 00 every 8 Medical (eight) Branch hours as needed (severe muscle spams). tiZANidine 2-0 Yes [id number] 4mg Take 1 [facility] 4 mg tablet 8-17 tablet by [facility] of 00:00: mouth [place] 00 every 8 Medical (eight) Branch hours as needed (severe muscle spams). tiZANidine 2-0 Yes [id number] 4mg Take 1 [facility] 4 mg tablet 8-17 tablet by [facility] of 00:00: mouth [place] 00 every 8 Medical (eight) Branch hours as needed (severe muscle spams). tiZANidine 2021-0 Yes [id number] 4mg Take 1 [facility] 4 mg tablet 8-17 tablet by [facility] 00:00: mouth [place] 00 every 8 Medical (eight) Branch hours as needed (severe muscle spams). tiZANidine 2-0 Yes [id number] 4mg Take 1 [facility] 4 mg tablet 8-17 tablet by [facility] of 00:00: mouth [place] 00 every 8 Medical (eight) Branch hours as needed (severe muscle spams). tiZANidine 2-0 Yes [id number] 4mg Take 1 [facility] 4 mg tablet 8-17 tablet by [facility] of 00:00: mouth [place] 00 every 8 Medical (eight) Branch hours as needed (severe muscle spams). tiZANidine 2-0 Yes [id number] 4mg Take 1 [facility] 4 mg tablet 8-17 tablet by [facility] of 00:00: mouth [place] 00 every 8 Medical (eight) Branch hours as needed (severe muscle spams). tiZANidine 2-0 Yes [id number] 4mg Take 1 [facility] 4 mg tablet 8-17 tablet by [facility] of 00:00: mouth [place] 00 every 8 Medical (eight) Branch hours as needed (severe muscle spams). tiZANidine 2-0 Yes [id number] 4mg Take 1 [facility] 4 mg tablet 8-17 tablet by [facility] of 00:00: mouth [place] 00 every 8 Medical (eight) Branch hours as needed (severe muscle spams). tiZANidine 2-0 Yes [id number] 4mg Take 1 [facility] 4 mg tablet 8-17 tablet by [facility] of 00:00: mouth [place] 00 every 8 Medical (eight) Branch hours as needed (severe muscle spams). tiZANidine 2-0 Yes [id number] 4mg Take 1 [facility] 4 mg tablet 8-17 tablet by [facility] of 00:00: mouth [place] 00 every 8 Medical (eight) Branch hours as needed (severe muscle spams). tiZANidine 2-0 Yes [id number] 4mg Take 1 [facility] 4 mg tablet 8-17 tablet by [facility] of 00:00: mouth [place] 00 every 8 Medical (eight) Branch hours as needed (severe muscle spams). tiZANidine 2-0 Yes [id number] 4mg Take 1 [facility] 4 mg tablet 8-17 tablet by [facility] of 00:00: mouth [place] 00 every 8 Medical (eight) Branch hours as needed (severe muscle spams). tiZANidine 2-0 Yes [id number] 4mg Take 1 [facility] 4 mg tablet 8-17 tablet by [facility] of 00:00: mouth [place] 00 every 8 Medical (eight) Branch hours as needed (severe muscle spams). tiZANidine 2-0 Yes [id number] 4mg Take 1 [facility] 4 mg tablet 8-17 tablet by [facility] of 00:00: mouth [place] 00 every 8 Medical (eight) Branch hours as needed (severe muscle spams). tiZANidine 2-0 Yes [id number] 4mg Take 1 [facility] 4 mg tablet 8-17 tablet by [facility] of 00:00: mouth [place] 00 every 8 Medical (eight) Branch hours as needed (severe muscle spams). tiZANidine 2022-0 Yes [id number] 4mg Take 1 [facility] 4 mg tablet 8-17 tablet by [facility] of 00:00: mouth [place] 00 every 8 Medical (eight) Branch hours as needed (severe muscle spams). tiZANidine 2022-0 Yes [id number] 4mg Take 1 [facility] 4 mg tablet 8-17 tablet by [facility] of 00:00: mouth [place] 00 every 8 Medical (eight) Branch hours as needed (severe muscle spams). tiZANidine 2022-0 Yes [id number] 4mg Take 1 [facility] 4 mg tablet 8-17 tablet by [facility] of 00:00: mouth [place] 00 every 8 Medical (eight) Branch hours as needed (severe muscle spams). tiZANidine 2022-0 Yes [id number] 4mg Take 1 [facility] 4 mg tablet 8-17 tablet by [facility] of 00:00: mouth [place] 00 every 8 Medical (eight) Branch hours as needed (severe muscle spams). tiZANidine 2022-0 Yes [id number] 4mg Take 1 [facility] 4 mg tablet 8-17 tablet by [facility] of 00:00: mouth [place] 00 every 8 Medical (eight) Branch hours as needed (severe muscle spams). tiZANidine 2-0 Yes [id number] 4mg Take 1 [facility] 4 mg tablet 8-17 tablet by [facility] of 00:00: mouth [place] 00 every 8 Medical (eight) Branch hours as needed (severe muscle spams). tiZANidine 2-0 Yes [id number] 4mg Take 1 [facility] 4 mg tablet 8-17 tablet by [facility] of 00:00: mouth [place] 00 every 8 Medical (eight) Branch hours as needed (severe muscle spams). tiZANidine 2022-0 Yes [id number] 4mg Take 1 [facility] 4 mg tablet 8-17 tablet by [facility] of 00:00: mouth [place] 00 every 8 Medical (eight) Branch hours as needed (severe muscle spams). tiZANidine 2-0 Yes [id number] 4mg Take 1 [facility] 4 mg tablet 8-17 tablet by [facility] of 00:00: mouth [place] 00 every 8 Medical (eight) Branch hours as needed (severe muscle spams). tiZANidine 2022-0 Yes [id number] 4mg Take 1 [facility] 4 mg tablet 8-17 tablet by [facility] of 00:00: mouth [place] 00 every 8 Medical (eight) Branch hours as needed (severe muscle spams). tiZANidine 2022-0 Yes [id number] 4mg Take 1 [facility] 4 mg tablet 8-17 tablet by [facility] of 00:00: mouth [place] 00 every 8 Medical (eight) Branch hours as needed (severe muscle spams). tiZANidine 2022-0 Yes [id number] 4mg Take 1 [facility] 4 mg tablet 8-17 tablet by [facility] of 00:00: mouth [place] 00 every 8 Medical (eight) Branch hours as needed (severe muscle spams). tiZANidine 2022-0 Yes [id number] 4mg Take 1 [facility] 4 mg tablet 8-17 tablet by [facility] of 00:00: mouth [place] 00 every 8 Medical (eight) Branch hours as needed (severe muscle spams). tiZANidine 2022-0 Yes [id number] 4mg Take 1 [facility] 4 mg tablet 8-17 tablet by [facility] of 00:00: mouth [place] 00 every 8 Medical (eight) Branch hours as needed (severe muscle spams). tiZANidine 2-0 Yes [id number] 4mg Take 1 [facility] 4 mg tablet 8-17 tablet by [facility] of 00:00: mouth [place] 00 every 8 Medical (eight) Branch hours as needed (severe muscle spams). tiZANidine 2-0 Yes [id number] 4mg Take 1 [facility] 4 mg tablet 8-17 tablet by [facility] of 00:00: mouth [place] 00 every 8 Medical (eight) Branch hours as needed (severe muscle spams). tiZANidine 2-0 Yes [id number] 4mg Take 1 [facility] 4 mg tablet 8-17 tablet by [facility] of 00:00: mouth [place] 00 every 8 Medical (eight) Branch hours as needed (severe muscle spams). tiZANidine 2-0 Yes [id number] 4mg Take 1 [facility] 4 mg tablet 8-17 tablet by [facility] of 00:00: mouth [place] 00 every 8 Medical (eight) Branch hours as needed (severe muscle spams). tiZANidine 2022-0 Yes [id number] 4mg Take 1 [facility] 4 mg tablet 8-17 tablet by [facility] of 00:00: mouth [place] 00 every 8 Medical (eight) Branch hours as needed (severe muscle spams). tiZANidine 2022-0 Yes [id number] 4mg Take 1 [facility] 4 mg tablet 8-17 tablet by [facility] of 00:00: mouth [place] 00 every 8 Medical (eight) Branch hours as needed (severe muscle spams). tiZANidine 2022-0 Yes [id number] 4mg Take 1 [facility] 4 mg tablet 8-17 tablet by [facility] of 00:00: mouth [place] 00 every 8 Medical (eight) Branch hours as needed (severe muscle spams). tiZANidine 2-0 Yes [id number] 4mg Take 1 [facility] 4 mg tablet 8-17 tablet by [facility] of 00:00: mouth [place] 00 every 8 Medical (eight) Branch hours as needed (severe muscle spams). tiZANidine 2-0 Yes [id number] 4mg Take 1 [facility] 4 mg tablet 8-17 tablet by [facility] of 00:00: mouth [place] 00 every 8 Medical (eight) Branch hours as needed (severe muscle spams). tiZANidine 2-0 Yes [id number] 4mg Take 1 [facility] 4 mg tablet 8-17 tablet by [facility] of 00:00: mouth [place] 00 every 8 Medical (eight) Branch hours as needed (severe muscle spams). tiZANidine 2021-0 Yes [id number] 4mg Take 1 [facility] 4 mg tablet 8-17 tablet by [facility] of 00:00: mouth [place] 00 every 8 Medical (eight) Branch hours as needed (severe muscle spams). tiZANidine 2021-0 Yes [id number] 4mg Take 1 [facility] 4 mg tablet 8-17 tablet by [facility] of 00:00: mouth [place] 00 every 8 Medical (eight) Branch hours as needed (severe muscle spams). tiZANidine 2-0 Yes [id number] 4mg Take 1 [facility] 4 mg tablet 8-17 tablet by [facility] of 00:00: mouth [place] 00 every 8 Medical (eight) Branch hours as needed (severe muscle spams). tiZANidine 2-0 Yes [id number] 4mg Take 1 [facility] 4 mg tablet 8-17 tablet by [facility] of 00:00: mouth [place] 00 every 8 Medical (eight) Branch hours as needed (severe muscle spams). tiZANidine 2-0 Yes [id number] 4mg Take 1 [facility] 4 mg tablet 8-17 tablet by [facility] of 00:00: mouth [place] 00 every 8 Medical (eight) Branch hours as needed (severe muscle spams). tiZANidine 2-0 Yes [id number] 4mg Take 1 [facility] 4 mg tablet 8-17 tablet by [facility] of 00:00: mouth [place] 00 every 8 Medical (eight) Branch hours as needed (severe muscle spams). tiZANidine 2-0 Yes [id number] 4mg Take 1 [facility] 4 mg tablet 8-17 tablet by [facility] of 00:00: mouth [place] 00 every 8 Medical (eight) Branch hours as needed (severe muscle spams). tiZANidine 2-0 Yes [id number] 4mg Take 1 [facility] 4 mg tablet 8-17 tablet by [facility] of 00:00: mouth [place] 00 every 8 Medical (eight) Branch hours as needed (severe muscle spams). tiZANidine 2-0 Yes [id number] 4mg Take 1 [facility] 4 mg tablet 8-17 tablet by [facility] of 00:00: mouth [place] 00 every 8 Medical (eight) Branch hours as needed (severe muscle spams). tiZANidine 2-0 Yes [id number] 4mg Take 1 [facility] 4 mg tablet 8-17 tablet by [facility] of 00:00: mouth [place] 00 every 8 Medical (eight) Branch hours as needed (severe muscle spams). tiZANidine 2-0 Yes [id number] 4mg Take 1 [facility] 4 mg tablet 8-17 tablet by [facility] of 00:00: mouth [place] 00 every 8 Medical (eight) Branch hours as needed (severe muscle spams). tiZANidine 2-0 Yes [id number] 4mg Take 1 [facility] 4 mg tablet 8-17 tablet by [facility] of 00:00: mouth [place] 00 every 8 Medical (eight) Branch hours as needed (severe muscle spams). tiZANidine 2-0 Yes [id number] 4mg Take 1 [facility] 4 mg tablet 8-17 tablet by [facility] of 00:00: mouth [place] 00 every 8 Medical (eight) Branch hours as needed (severe muscle spams). tiZANidine 2022-0 Yes [id number] 4mg Take 1 [facility] 4 mg tablet 8-17 tablet by [facility] of 00:00: mouth [place] 00 every 8 Medical (eight) Branch hours as needed (severe muscle spams). tiZANidine 2022-0 Yes [id number] 4mg Take 1 [facility] 4 mg tablet 8-17 tablet by [facility] of 00:00: mouth [place] 00 every 8 Medical (eight) Branch hours as needed (severe muscle spams). tiZANidine 2022-0 Yes [id number] 4mg Take 1 [facility] 4 mg tablet 8-17 tablet by [facility] of 00:00: mouth [place] 00 every 8 Medical (eight) Branch hours as needed (severe muscle spams). tiZANidine 2022-0 Yes [id number] 4mg Take 1 [facility] 4 mg tablet 8-17 tablet by [facility] of 00:00: mouth [place] 00 every 8 Medical (eight) Branch hours as needed (severe muscle spams). tiZANidine 2022-0 Yes [id number] 4mg Take 1 [facility] 4 mg tablet 8-17 tablet by [facility] of 00:00: mouth [place] 00 every 8 Medical (eight) Branch hours as needed (severe muscle spams). tiZANidine 2-0 Yes [id number] 4mg Take 1 [facility] 4 mg tablet 8-17 tablet by [facility] of 00:00: mouth [place] 00 every 8 Medical (eight) Branch hours as needed (severe muscle spams). tiZANidine 2-0 Yes [id number] 4mg Take 1 [facility] 4 mg tablet 8-17 tablet by [facility] of 00:00: mouth [place] 00 every 8 Medical (eight) Branch hours as needed (severe muscle spams). tiZANidine 2022-0 Yes [id number] 4mg Take 1 [facility] 4 mg tablet 8-17 tablet by [facility] of 00:00: mouth [place] 00 every 8 Medical (eight) Branch hours as needed (severe muscle spams). tiZANidine 2-0 Yes [id number] 4mg Take 1 [facility] 4 mg tablet 8-17 tablet by [facility] of 00:00: mouth [place] 00 every 8 Medical (eight) Branch hours as needed (severe muscle spams). tiZANidine 2022-0 Yes [id number] 4mg Take 1 [facility] 4 mg tablet 8-17 tablet by [facility] of 00:00: mouth [place] 00 every 8 Medical (eight) Branch hours as needed (severe muscle spams). tiZANidine 2022-0 Yes [id number] 4mg Take 1 [facility] 4 mg tablet 8-17 tablet by [facility] of 00:00: mouth [place] 00 every 8 Medical (eight) Branch hours as needed (severe muscle spams). tiZANidine 2021-0 Yes [id number] 4mg Take 1 [facility] 4 mg tablet 8-17 tablet by [facility] of 00:00: mouth [place] 00 every 8 Medical (eight) Branch hours as needed (severe muscle spams). tiZANidine 2021-0 Yes [id number] 4mg Take 1 [facility] 4 mg tablet 8-17 tablet by [facility] of 00:00: mouth [place] 00 every 8 Medical (eight) Branch hours as needed (severe muscle spams). tiZANidine 2021-0 Yes [id number] 4mg Take 1 [facility] 4 mg tablet 8-17 tablet by [facility] of 00:00: mouth [place] 00 every 8 Medical (eight) Branch hours as needed (severe muscle spams). tiZANidine 2021-0 Yes [id number] 4mg Take 1 [facility] 4 mg tablet 8-17 tablet by [facility] of 00:00: mouth [place] 00 every 8 Medical (eight) Branch hours as needed (severe muscle spams). tiZANidine 2021-0 Yes [id number] 4mg Take 1 [facility] 4 mg tablet 8-17 tablet by [facility] of 00:00: mouth [place] 00 every 8 Medical (eight) Branch hours as needed (severe muscle spams). tiZANidine 2021-0 3- No [id number] 4mg Take 1 [facility] 4 mg tablet 8-17 01-10 tablet by it y of 00:00: 00:00 mouth [place] 00 :00 every 8 Medical (eight) Branch hours as needed (severe muscle spams). tiZANidine 2021-0 3- No [id number] 4mg Take 1 [facility] 4 mg tablet 8-17 01-10 tablet by it y of 00:00: 00:00 mouth [place] 00 :00 every 8 Medical (eight) Branch hours as needed (severe muscle spams). ondansetron 2021-0 2- No [id number] 4mg Take 1 [facility] 4 mg 8-05 08-30 tablet by [facility] disintegrat 00:00: [place] :00 every 8 [facility] (eight) Branch hours as needed for Nausea and Vomiting (N/V). ondansetron 2021-0 2- No [id number] 4mg Take 1 [facility] 4 mg 8-05 08-30 tablet by [facility] disintegrat 00:00: 00:[place] :00 every 8 [facility] (eight) Branch hours as needed for Nausea and Vomiting (N/V). amitriptyli 2022-0 Yes 10mg Take 10 mg [facility] 10 mg 8-04 by mouth [facility] of tablet 00:00: in the [place] 00 morning. [facility] Branch clonazePAM 2022-0 Yes 1mg Take 1 mg [facility] 1 mg tablet 8-04 by mouth [facility] of 00:00: in the [place] morning. [facility] Branch amitriptyli 2022-0 Yes 10mg Take 10 mg [facility] 10 mg 8-04 by mouth [facility] of tablet 00:00: in the [place] morning. Medical Branch clonazePAM 2022-0 Yes 1mg Take 1 mg [facility] 1 mg tablet 8-04 by mouth [facility] of 00:00: in the [place] morning. [facility] Branch amitriptyli 2022-0 Yes 10mg Take 10 mg [facility] 10 mg 8-04 by mouth [facility] of tablet 00:00: in the [place] morning. [facility] Branch clonazePAM 2022-0 Yes 1mg Take 1 mg [facility] 1 mg tablet 8-04 by mouth [facility] of 00:00: in the [place] morning. [facility] amitriptyli 2022-0 Yes 10mg Take 10 mg [facility] 10 mg 8-04 by mouth [facility] of tablet 00:00: in the [place] 00 morning. [facility] Branch clonazePAM 2022-0 Yes 1mg Take 1 mg [facility] 1 mg tablet 8-04 by mouth [facility] of 00:00: in the [place] morning. [facility] amitriptyli 2022-0 Yes 10mg Take 10 mg [facility] 10 mg 8-04 by mouth [facility] of tablet 00:00: in the [place] 00 morning. [facility] Branch clonazePAM 2022-0 Yes 1mg Take 1 mg [facility] 1 mg tablet 8-04 by mouth [facility] of 00:00: in the [place] 00 morning. [facility] amitriptyli 2022-0 Yes 10mg Take 10 mg [facility] 10 mg 8-04 by mouth [facility] of tablet 00:00: in the [place] 00 morning. [facility] clonazePAM 2022-0 Yes 1mg Take 1 mg [facility] 1 mg tablet 8-04 by mouth [facility] of 00:00: in the [place] 00 morning. [facility] amitriptyli 2022-0 Yes 10mg Take 10 mg [facility] 10 mg 8-04 by mouth [facility] of tablet 00:00: in the [place] 00 morning. [facility] clonazePAM 2022-0 Yes 1mg Take 1 mg [facility] 1 mg tablet 8-04 by mouth [facility] of 00:00: in the [place] 00 morning. [facility] amitriptyli 2022-0 Yes 10mg Take 10 mg [facility] 10 mg 8-04 by mouth [facility] of tablet 00:00: in the [place] morning. [facility] clonazePAM 2022-0 Yes 1mg Take 1 mg [facility] 1 mg tablet 8-04 by mouth [facility] of 00:00: in the [place] morning. [facility] amitriptyli 2022-0 Yes 10mg Take 10 mg [facility] 10 mg 8-04 by mouth [facility] of tablet 00:00: in the [place] morning. [facility] clonazePAM 2022-0 Yes 1mg Take 1 mg [facility] 1 mg tablet 8-04 by mouth [facility] of 00:00: in the [place] morning. [facility] amitriptyli 2022-0 Yes 10mg Take 10 mg [facility] 10 mg 8-04 by mouth [facility] of tablet 00:00: in the [place] 00 morning. [facility] clonazePAM 2022-0 Yes 1mg Take 1 mg [facility] 1 mg tablet 8-04 by mouth [facility] of 00:00: in the [place] 00 morning. [facility] amitriptyli 2022-0 Yes 10mg Take 10 mg [facility] 10 mg 8-04 by mouth [facility] of tablet 00:00: in the [place] morning. [facility] clonazePAM 2022-0 Yes 1mg Take 1 mg [facility] 1 mg tablet 8-04 by mouth [facility] of 00:00: in the [place] 00 morning. [facility] amitriptyli 2022-0 Yes 10mg Take 10 mg [facility] 10 mg 8-04 by mouth [facility] of tablet 00:00: in the [place] 00 morning. [facility] clonazePAM 2022-0 Yes 1mg Take 1 mg [facility] 1 mg tablet 8-04 by mouth [facility] of 00:00: in the [place] 00 morning. [facility] amitriptyli 2022-0 Yes 10mg Take 10 mg [facility] 10 mg 8-04 by mouth [facility] of tablet 00:00: in the [place] 00 morning. [facility] clonazePAM 2022-0 Yes 1mg Take 1 mg [facility] 1 mg tablet 8-04 by mouth [facility] of 00:00: in the [place] 00 morning. [facility] amitriptyli 2022-0 Yes 10mg Take 10 mg [facility] 10 mg 8-04 by mouth [facility] of tablet 00:00: in the [place] morning. [facility] clonazePAM 2022-0 Yes 1mg Take 1 mg [facility] 1 mg tablet 8-04 by mouth [facility] of 00:00: in the [place] morning. [facility] amitriptyli 2022-0 Yes 10mg Take 10 mg [facility] 10 mg 8-04 by mouth [facility] of tablet 00:00: in the [place] morning. [facility] clonazePAM 2022-0 Yes 1mg Take 1 mg [facility] 1 mg tablet 8-04 by mouth [facility] of 00:00: in the [place] morning. [facility] amitriptyli 2022-0 Yes 10mg Take 10 mg [facility] 10 mg 8-04 by mouth [facility] of tablet 00:00: in the [place] morning. [facility] clonazePAM 2022-0 Yes 1mg Take 1 mg [facility] 1 mg tablet 8-04 by mouth [facility] of 00:00: in the [place] morning. [facility] amitriptyli 2022-0 Yes 10mg Take 10 mg [facility] 10 mg 8-04 by mouth [facility] of tablet 00:00: in the [place] morning. [facility] clonazePAM 2022-0 Yes 1mg Take 1 mg [facility] 1 mg tablet 8-04 by mouth [facility] of 00:00: in the [place] morning. [facility] amitriptyli 2022-0 Yes 10mg Take 10 mg [facility] 10 mg 8-04 by mouth [facility] of tablet 00:00: in the [place] 00 morning. [facility] clonazePAM 2022-0 Yes 1mg Take 1 mg [facility] 1 mg tablet 8-04 by mouth [facility] of 00:00: in the [place] 00 morning. [facility] amitriptyli 2022-0 Yes 10mg Take 10 mg [facility] 10 mg 8-04 by mouth [facility] of tablet 00:00: in the [place] 00 morning. [facility] clonazePAM 2022-0 Yes 1mg Take 1 mg [facility] 1 mg tablet 8-04 by mouth [facility] of 00:00: in the [place] 00 morning. [facility] amitriptyli 2022-0 Yes 10mg Take 10 mg [facility] 10 mg 8-04 by mouth [facility] of tablet 00:00: in the [place] 00 morning. [facility] clonazePAM 2022-0 Yes 1mg Take 1 mg [facility] 1 mg tablet 8-04 by mouth [facility] of 00:00: in the [place] morning. [facility] amitriptyli 2022-0 Yes 10mg Take 10 mg [facility] 10 mg 8-04 by mouth [facility] of tablet 00:00: in the [place] morning. [facility] clonazePAM 2022-0 Yes 1mg Take 1 mg [facility] 1 mg tablet 8-04 by mouth [facility] of 00:00: in the [place] morning. [facility] amitriptyli 2022-0 Yes 10mg Take 10 mg [facility] 10 mg 8-04 by mouth [facility] of tablet 00:00: in the [place] morning. [facility] clonazePAM 2022-0 Yes 1mg Take 1 mg [facility] 1 mg tablet 8-04 by mouth [facility] of 00:00: in the [place] morning. [facility] amitriptyli 2022-0 Yes 10mg Take 10 mg [facility] 10 mg 8-04 by mouth [facility] of tablet 00:00: in the [place] 00 morning. [facility] clonazePAM 2022-0 Yes 1mg Take 1 mg [facility] 1 mg tablet 8-04 by mouth [facility] of 00:00: in the [place] 00 morning. [facility] amitriptyli 2022-0 Yes 10mg Take 10 mg [facility] 10 mg 8-04 by mouth [facility] of tablet 00:00: in the [place] 00 morning. [facility] clonazePAM 2022-0 Yes 1mg Take 1 mg [facility] 1 mg tablet 8-04 by mouth [facility] of 00:00: in the [place] morning. [facility] amitriptyli 2022-0 Yes 10mg Take 10 mg [facility] 10 mg 8-04 by mouth [facility] of tablet 00:00: in the [place] 00 morning. [facility] clonazePAM 2022-0 Yes 1mg Take 1 mg [facility] 1 mg tablet 8-04 by mouth [facility] of 00:00: in the [place] 00 morning. [facility] amitriptyli 2022-0 Yes 10mg Take 10 mg [facility] 10 mg 8-04 by mouth [facility] of tablet 00:00: in the [place] 00 morning. [facility] clonazePAM 2022-0 Yes 1mg Take 1 mg [facility] 1 mg tablet 8-04 by mouth [facility] of 00:00: in the [place] 00 morning. [facility] amitriptyli 2022-0 Yes 10mg Take 10 mg [facility] 10 mg 8-04 by mouth [facility] of tablet 00:00: in the [place] morning. [facility] clonazePAM 2022-0 Yes 1mg Take 1 mg [facility] 1 mg tablet 8-04 by mouth [facility] of 00:00: in the [place] morning. [facility] amitriptyli 2022-0 Yes 10mg Take 10 mg [facility] 10 mg 8-04 by mouth [facility] of tablet 00:00: in the [place] 00 morning. [facility] clonazePAM 2022-0 Yes 1mg Take 1 mg [facility] 1 mg tablet 8-04 by mouth [facility] of 00:00: in the [place] morning. [facility] amitriptyli 2022-0 Yes 10mg Take 10 mg [facility] 10 mg 8-04 by mouth [facility] of tablet 00:00: in the [place] 00 morning. [facility] clonazePAM 2022-0 Yes 1mg Take 1 mg [facility] 1 mg tablet 8-04 by mouth [facility] of 00:00: in the [place] 00 morning. [facility] amitriptyli 2022-0 Yes 10mg Take 10 mg [facility] 10 mg 8-04 by mouth [facility] of tablet 00:00: in the [place] morning. [facility] clonazePAM 2022-0 Yes 1mg Take 1 mg [facility] 1 mg tablet 8-04 by mouth [facility] of 00:00: in the [place] 00 morning. [facility] amitriptyli 2022-0 Yes 10mg Take 10 mg [facility] 10 mg 8-04 by mouth [facility] of tablet 00:00: in the [place] 00 morning. [facility] clonazePAM 2022-0 Yes 1mg Take 1 mg [facility] 1 mg tablet 8-04 by mouth [facility] of 00:00: in the [place] 00 morning. [facility] amitriptyli 2022-0 Yes 10mg Take 10 mg [facility] 10 mg 8-04 by mouth [facility] of tablet 00:00: in the [place] 00 morning. [facility] clonazePAM 2022-0 Yes 1mg Take 1 mg [facility] 1 mg tablet 8-04 by mouth [facility] of 00:00: in the [place] 00 morning. [facility] amitriptyli 2022-0 Yes 10mg Take 10 mg [facility] 10 mg 8-04 by mouth [facility] of tablet 00:00: in the [place] 00 morning. [facility] clonazePAM 2022-0 Yes 1mg Take 1 mg [facility] 1 mg tablet 8-04 by mouth [facility] of 00:00: in the [place] morning. [facility] amitriptyli 2022-0 Yes 10mg Take 10 mg [facility] 10 mg 8-04 by mouth [facility] of tablet 00:00: in the [place] morning. [facility] clonazePAM 2022-0 Yes 1mg Take 1 mg [facility] 1 mg tablet 8-04 by mouth [facility] of 00:00: in the [place] 00 morning. [facility] amitriptyli 2022-0 Yes 10mg Take 10 mg [facility] 10 mg 8-04 by mouth [facility] of tablet 00:00: in the [place] morning. [facility] clonazePAM 2022-0 Yes 1mg Take 1 mg [facility] 1 mg tablet 8-04 by mouth [facility] of 00:00: in the [place] morning. [facility] amitriptyli 2022-0 Yes 10mg Take 10 mg [facility] 10 mg 8-04 by mouth [facility] of tablet 00:00: in the [place] 00 morning. [facility] clonazePAM 2022-0 Yes 1mg Take 1 mg [facility] 1 mg tablet 8-04 by mouth [facility] of 00:00: in the [place] morning. [facility] amitriptyli 2022-0 Yes 10mg Take 10 mg [facility] 10 mg 8-04 by mouth [facility] of tablet 00:00: in the [place] 00 morning. [facility] clonazePAM 2022-0 Yes 1mg Take 1 mg [facility] 1 mg tablet 8-04 by mouth [facility] of 00:00: in the [place] 00 morning. [facility] amitriptyli 2022-0 Yes 10mg Take 10 mg [facility] 10 mg 8-04 by mouth [facility] of tablet 00:00: in the [place] 00 morning. [facility] clonazePAM 2022-0 Yes 1mg Take 1 mg [facility] 1 mg tablet 8-04 by mouth [facility] of 00:00: in the [place] 00 morning. [facility] amitriptyli 2022-0 Yes 10mg Take 10 mg [facility] 10 mg 8-04 by mouth [facility] of tablet 00:00: in the [place] 00 morning. [facility] clonazePAM 2022-0 Yes 1mg Take 1 mg [facility] 1 mg tablet 8-04 by mouth [facility] of 00:00: in the [place] 00 morning. [facility] amitriptyli 2022-0 Yes 10mg Take 10 mg [facility] 10 mg 8-04 by mouth [facility] of tablet 00:00: in the [place] 00 morning. [facility] clonazePAM 2022-0 Yes 1mg Take 1 mg [facility] 1 mg tablet 8-04 by mouth [facility] of 00:00: in the [place] 00 morning. [facility] amitriptyli 2022-0 Yes 10mg Take 10 mg [facility] 10 mg 8-04 by mouth [facility] of tablet 00:00: in the [place] 00 morning. [facility] clonazePAM 2022-0 Yes 1mg Take 1 mg [facility] 1 mg tablet 8-04 by mouth [facility] of 00:00: in the [place] morning. [facility] amitriptyli 2022-0 Yes 10mg Take 10 mg [facility] ne 10 mg 8-04 by mouth [facility] of tablet 00:00: in the [place] 00 morning. [facility] clonazePAM 2022-0 Yes 1mg Take 1 mg [facility] 1 mg tablet 8-04 by mouth [facility] of 00:00: in the [place] 00 morning. [facility] amitriptyli 2022-0 Yes 10mg Take 10 mg [facility] ne 10 mg 8-04 by mouth [facility] of tablet 00:00: in the [place] 00 morning. [facility] clonazePAM 2022-0 Yes 1mg Take 1 mg [facility] 1 mg tablet 8-04 by mouth [facility] of 00:00: in the [place] 00 morning. [facility] amitriptyli 2022-0 Yes 10mg Take 10 mg [facility] 10 mg 8-04 by mouth [facility] of tablet 00:00: in the [place] 00 morning. [facility] clonazePAM 2022-0 Yes 1mg Take 1 mg [facility] 1 mg tablet 8-04 by mouth [facility] of 00:00: in the [place] 00 morning. [facility] amitriptyli 2022-0 Yes 10mg Take 10 mg [facility] 10 mg 8-04 by mouth [facility] of tablet 00:00: in the [place] 00 morning. [facility] clonazePAM 2022-0 Yes 1mg Take 1 mg [facility] 1 mg tablet 8-04 by mouth [facility] 00:00: in the [place] morning. [facility] amitriptyli 2022-0 Yes 10mg Take 10 mg [facility] 10 mg 8-04 by [facility] tablet 00:00: in the [place] morning. [facility] clonazePAM 2022-0 Yes 1mg Take 1 mg [facility] 1 mg tablet 8-04 by [facility] 00:00: in the [place] morning. [facility] amitriptyli 2022-0 Yes 10mg Take 10 mg [facility] 10 mg 8-04 by [facility] tablet 00:00: in the [place] morning. [facility] clonazePAM 2022-0 Yes 1mg Take 1 mg [facility] 1 mg tablet 8-04 by [facility] 00:00: in the [place] morning. [facility] amitriptyli 2022-0 Yes 10mg Take 10 mg [facility] 10 mg 8-04 by [facility] tablet 00:00: in the [place] morning. [facility] clonazePAM 2022-0 Yes 1mg Take 1 mg [facility] 1 mg tablet 8-04 by [facility] 00:00: in the [place] morning. [facility] amitriptyli 2022-0 Yes 10mg Take 10 mg [facility] 10 mg 8-04 by [facility] tablet 00:00: in the [place] morning. [facility] clonazePAM 2022-0 Yes 1mg Take 1 mg [facility] 1 mg tablet 8-04 by [facility] 00:00: in the [place] morning. [facility] amitriptyli 2022-0 Yes 10mg Take 10 mg [facility] 10 mg 8-04 by [facility] tablet 00:00: in the [place] morning. [facility] clonazePAM 2022-0 Yes 1mg Take 1 mg [facility] 1 mg tablet 8-04 by [facility] 00:00: in the [place] morning. [facility] amitriptyli 2022-0 Yes 10mg Take 10 mg [facility] 10 mg 8-04 by [facility] tablet 00:00: in the [place] 00 morning. [facility] clonazePAM 2022-0 Yes 1mg Take 1 mg [facility] 1 mg tablet 8-04 by [facility] 00:00: in the [place] 00 morning. [facility] amitriptyli 2022-0 Yes 10mg Take 10 mg [facility] 10 mg 8-04 by [facility] tablet 00:00: in the [place] 00 morning. [facility] clonazePAM 2022-0 Yes 1mg Take 1 mg [facility] 1 mg tablet 8-04 by [facility] 00:00: in the [place] morning. [facility] amitriptyli 2022-0 Yes 10mg Take 10 mg [facility] 10 mg 8-04 by [facility] tablet 00:00: in the [place] morning. [facility] clonazePAM 2022-0 Yes 1mg Take 1 mg [facility] 1 mg tablet 8-04 by [facility] 00:00: in the [place] morning. [facility] amitriptyli 2022-0 Yes 10mg Take 10 mg [facility] 10 mg 8-04 by [facility] tablet 00:00: in the [place] morning. [facility] clonazePAM 2022-0 Yes 1mg Take 1 mg [facility] 1 mg tablet 8-04 by [facility] 00:00: in the [place] morning. [facility] amitriptyli 2022-0 Yes 10mg Take 10 mg [facility] 10 mg 8-04 by [facility] tablet 00:00: in the [place] morning. [facility] clonazePAM 2022-0 Yes 1mg Take 1 mg [facility] 1 mg tablet 8-04 by [facility] 00:00: in the [place] morning. [facility] amitriptyli 2022-0 Yes 10mg Take 10 mg [facility] 10 mg 8-04 by [facility] tablet 00:00: in the [place] morning. [facility] clonazePAM 2022-0 Yes 1mg Take 1 mg [facility] 1 mg tablet 8-04 by [facility] 00:00: in the [place] morning. [facility] amitriptyli 2022-0 Yes 10mg Take 10 mg [facility] 10 mg 8-04 by [facility] tablet 00:00: in the [place] 00 morning. [facility] clonazePAM 2022-0 Yes 1mg Take 1 mg [facility] 1 mg tablet 8-04 by [facility] 00:00: in the [place] morning. [facility] amitriptyli 2022-0 Yes 10mg Take 10 mg [facility] 10 mg 8-04 by [facility] tablet 00:00: in the [place] 00 morning. [facility] clonazePAM 2022-0 Yes 1mg Take 1 mg [facility] 1 mg tablet 8-04 by [facility] 00:00: in the [place] 00 morning. [facility] amitriptyli 2022-0 Yes 10mg Take 10 mg [facility] 10 mg 8-04 by [facility] tablet 00:00: in the [place] morning. [facility] clonazePAM 2022-0 Yes 1mg Take 1 mg [facility] 1 mg tablet 8-04 by [facility] 00:00: in the [place] morning. [facility] amitriptyli 2022-0 Yes 10mg Take 10 mg [facility] 10 mg 8-04 by [facility] tablet 00:00: in the [place] morning. [facility] clonazePAM 2-0 Yes 1mg Take 1 mg [facility] 1 mg tablet 8-04 by [facility] 00:00: in the [place] morning. [facility] amitriptyli 2022-0 Yes 10mg Take 10 mg [facility] 10 mg 8-04 by [facility] tablet 00:00: in the [place] morning. [facility] clonazePAM 2-0 Yes 1mg Take 1 mg [facility] 1 mg tablet 8-04 by [facility] 00:00: in the [place] 00 morning. [facility] amitriptyli 2-0 Yes 10mg Take 10 mg [facility] 10 mg 8-04 by [facility] tablet 00:00: in the [place] 00 morning. [facility] clonazePAM 2022-0 Yes 1mg Take 1 mg [facility] 1 mg tablet 8-04 by [facility] 00:00: in the [place] 00 morning. [facility] amitriptyli 2022-0 Yes 10mg Take 10 mg [facility] 10 mg 8-04 by [facility] tablet 00:00: in the [place] 00 morning. [facility] clonazePAM 2022-0 Yes 1mg Take 1 mg [facility] 1 mg tablet 8-04 by [facility] 00:00: in the [place] 00 morning. [facility] amitriptyli 2022-0 Yes 10mg Take 10 mg [facility] 10 mg 8-04 by [facility] tablet 00:00: in the [place] 00 morning. [facility] clonazePAM 2022-0 Yes 1mg Take 1 mg [facility] 1 mg tablet 8-04 by [facility] 00:00: in the [place] 00 morning. [facility] amitriptyli 2022-0 Yes 10mg Take 10 mg [facility] 10 mg 8-04 by [facility] tablet 00:00: in the [place] 00 morning. [facility] clonazePAM 2022-0 Yes 1mg Take 1 mg [facility] 1 mg tablet 8-04 by [facility] 00:00: in the [place] morning. [facility] amitriptyli 2022-0 Yes 10mg Take 10 mg [facility] 10 mg 8-04 by [facility] tablet 00:00: in the [place] morning. [facility] clonazePAM 2022-0 Yes 1mg Take 1 mg [facility] 1 mg tablet 8-04 by [facility] 00:00: in the [place] morning. [facility] amitriptyli 2022-0 Yes 10mg Take 10 mg [facility] 10 mg 8-04 by [facility] tablet 00:00: in the [place] morning. [facility] clonazePAM 2022-0 Yes 1mg Take 1 mg [facility] 1 mg tablet 8-04 by [facility] 00:00: in the [place] 00 morning. [facility] amitriptyli 2022-0 Yes 10mg Take 10 mg [facility] 10 mg 8-04 by [facility] tablet 00:00: in the [place] 00 morning. [facility] clonazePAM 2022-0 Yes 1mg Take 1 mg [facility] 1 mg tablet 8-04 by [facility] 00:00: in the [place] morning. [facility] amitriptyli 2022-0 Yes 10mg Take 10 mg [facility] 10 mg 8-04 by [facility] tablet 00:00: in the [place] 00 morning. [facility] clonazePAM 2022-0 Yes 1mg Take 1 mg [facility] 1 mg tablet 8-04 by [facility] 00:00: in the [place] 00 morning. [facility] amitriptyli 2022-0 Yes 10mg Take 10 mg [facility] 10 mg 8-04 by [facility] tablet 00:00: in the [place] 00 morning. [facility] clonazePAM 2022-0 Yes 1mg Take 1 mg [facility] 1 mg tablet 8-04 by [facility] 00:00: in the [place] 00 morning. [facility] amitriptyli 2022-0 Yes 10mg Take 10 mg [facility] 10 mg 8-04 by [facility] tablet 00:00: in the [place] 00 morning. [facility] clonazePAM 2022-0 Yes 1mg Take 1 mg [facility] 1 mg tablet 8-04 by [facility] 00:00: in the [place] 00 morning. [facility] amitriptyli 2022-0 Yes 10mg Take 10 mg [facility] 10 mg 8-04 by [facility] tablet 00:00: in the [place] morning. [facility] clonazePAM 2022-0 Yes 1mg Take 1 mg [facility] 1 mg tablet 8-04 by [facility] 00:00: in the [place] morning. [facility] amitriptyli 2022-0 Yes 10mg Take 10 mg [facility] 10 mg 8-04 by [facility] tablet 00:00: in the [place] morning. [facility] clonazePAM 2022-0 Yes 1mg Take 1 mg [facility] 1 mg tablet 8-04 by [facility] 00:00: in the [place] morning. [facility] amitriptyli 2022-0 Yes 10mg Take 10 mg [facility] 10 mg 8-04 by [facility] tablet 00:00: in the [place] morning. [facility] clonazePAM 2022-0 Yes 1mg Take 1 mg [facility] 1 mg tablet 8-04 by [facility] 00:00: in the [place] 00 morning. [facility] amitriptyli 2022-0 Yes 10mg Take 10 mg [facility] 10 mg 8-04 by [facility] tablet 00:00: in the [place] morning. [facility] clonazePAM 2022-0 Yes 1mg Take 1 mg [facility] 1 mg tablet 8-04 by [facility] 00:00: in the [place] 00 morning. [facility] amitriptyli 2022-0 Yes 10mg Take 10 mg [facility] 10 mg 8-04 by [facility] tablet 00:00: in the [place] 00 morning. [facility] clonazePAM 2022-0 Yes 1mg Take 1 mg [facility] 1 mg tablet 8-04 by [facility] 00:00: in the [place] 00 morning. [facility] amitriptyli 2022-0 Yes 10mg Take 10 mg [facility] 10 mg 8-04 by [facility] tablet 00:00: in the [place] 00 morning. [facility] clonazePAM 2022-0 Yes 1mg Take 1 mg [facility] 1 mg tablet 8-04 by [facility] 00:00: in the [place] 00 morning. [facility] amitriptyli 2022-0 Yes 10mg Take 10 mg [facility] 10 mg 8-04 by [facility] tablet 00:00: in the [place] morning. [facility] clonazePAM 2022-0 Yes 1mg Take 1 mg [facility] 1 mg tablet 8-04 by [facility] 00:00: in the [place] morning. [facility] amitriptyli 2022-0 Yes 10mg Take 10 mg [facility] 10 mg 8-04 by [facility] tablet 00:00: in the [place] morning. [facility] clonazePAM 2022-0 Yes 1mg Take 1 mg [facility] 1 mg tablet 8-04 by [facility] 00:00: in the [place] morning. [facility] amitriptyli 2022-0 Yes 10mg Take 10 mg [facility] 10 mg 8-04 by [facility] tablet 00:00: in the [place] morning. [facility] clonazePAM 2022-0 Yes 1mg Take 1 mg [facility] 1 mg tablet 8-04 by [facility] 00:00: in the [place] morning. [facility] amitriptyli 2022-0 Yes 10mg Take 10 mg [facility] 10 mg 8-04 by [facility] tablet 00:00: in the [place] morning. [facility] clonazePAM 2022-0 Yes 1mg Take 1 mg [facility] 1 mg tablet 8-04 by [facility] 00:00: in the [place] morning. [facility] amitriptyli 2022-0 Yes 10mg Take 10 mg [facility] 10 mg 8-04 by [facility] tablet 00:00: in the [place] morning. [facility] clonazePAM 2022-0 Yes 1mg Take 1 mg [facility] 1 mg tablet 8-04 by [facility] 00:00: in the [place] 00 morning. [facility] amitriptyli 2022-0 Yes 10mg Take 10 mg [facility] 10 mg 8-04 by [facility] tablet 00:00: in the [place] 00 morning. [facility] clonazePAM 2022-0 Yes 1mg Take 1 mg [facility] 1 mg tablet 8-04 by [facility] 00:00: in the [place] 00 morning. [facility] amitriptyli 2022-0 Yes 10mg Take 10 mg [facility] 10 mg 8-04 by [facility] tablet 00:00: in the [place] 00 morning. [facility] clonazePAM 2022-0 Yes 1mg Take 1 mg [facility] 1 mg tablet 8-04 by [facility] 00:00: in the [place] 00 morning. [facility] amitriptyli 2022-0 Yes 10mg Take 10 mg [facility] 10 mg 8-04 by [facility] tablet 00:00: in the [place] morning. [facility] clonazePAM 2022-0 Yes 1mg Take 1 mg [facility] 1 mg tablet 8-04 by mouth [facility] 00:00: in the [place] morning. [facility] amitriptyli 2022-0 Yes 10mg Take 10 mg [facility] 10 mg 8-04 by [facility] tablet 00:00: in the [place] morning. [facility] clonazePAM 2022-0 Yes 1mg Take 1 mg [facility] 1 mg tablet 8-04 by [facility] 00:00: in the [place] morning. [facility] amitriptyli 2022-0 Yes 10mg Take 10 mg [facility] 10 mg 8-04 by [facility] tablet 00:00: in the [place] 00 morning. [facility] clonazePAM 2022-0 Yes 1mg Take 1 mg [facility] 1 mg tablet 8-04 by [facility] 00:00: in the [place] 00 morning. [facility] amitriptyli 2022-0 Yes 10mg Take 10 mg [facility] 10 mg 8-04 by [facility] tablet 00:00: in the [place] morning. [facility] clonazePAM 2022-0 Yes 1mg Take 1 mg [facility] 1 mg tablet 8-04 by [facility] 00:00: in the [place] morning. [facility] amitriptyli 2022-0 Yes 10mg Take 10 mg [facility] 10 mg 8-04 by [facility] tablet 00:00: in the [place] 00 morning. [facility] clonazePAM 2022-0 Yes 1mg Take 1 mg [facility] 1 mg tablet 8-04 by mouth [facility] 00:00: in the [place] 00 morning. [facility] amitriptyli 2022-0 Yes 10mg Take 10 mg [facility] 10 mg 8-04 by [facility] tablet 00:00: in the [place] 00 morning. [facility] clonazePAM 2022-0 Yes 1mg Take 1 mg [facility] 1 mg tablet 8-04 by [facility] 00:00: in the [place] 00 morning. [facility] amitriptyli 2022-0 Yes 10mg Take 10 mg [facility] 10 mg 8-04 by [facility] tablet 00:00: in the [place] morning. [facility] clonazePAM 2022-0 Yes 1mg Take 1 mg [facility] 1 mg tablet 8-04 by [facility] 00:00: in the [place] morning. [facility] amitriptyli 2022-0 Yes 10mg Take 10 mg [facility] 10 mg 8-04 by [facility] tablet 00:00: in the [place] morning. [facility] clonazePAM 2022-0 Yes 1mg Take 1 mg [facility] 1 mg tablet 8-04 by mouth [facility] 00:00: in the [place] morning. [facility] amitriptyli 2022-0 Yes 10mg Take 10 mg [facility] 10 mg 8-04 by [facility] tablet 00:00: in the [place] morning. [facility] clonazePAM 2022-0 Yes 1mg Take 1 mg [facility] 1 mg tablet 8-04 by mouth [facility] 00:00: in the [place] morning. [facility] amitriptyli 2022-0 Yes 10mg Take 10 mg [facility] 10 mg 8-04 by mouth [facility] tablet 00:00: in the [place] morning. [facility] clonazePAM 2022-0 Yes 1mg Take 1 mg [facility] 1 mg tablet 8-04 by mouth [facility] 00:00: in the [place] morning. [facility] amitriptyli 2022-0 Yes 10mg Take 10 mg [facility] 10 mg 8-04 by [facility] tablet 00:00: in the [place] morning. [facility] clonazePAM 2022-0 Yes 1mg Take 1 mg [facility] 1 mg tablet 8-04 by mouth [facility] 00:00: in the [place] 00 morning. [facility] amitriptyli 2022-0 Yes 10mg Take 10 mg [facility] 10 mg 8-04 by [facility] tablet 00:00: in the [place] 00 morning. [facility] clonazePAM 2022-0 Yes 1mg Take 1 mg [facility] 1 mg tablet 8-04 by mouth [facility] of 00:00: in the [place] 00 morning. [facility] amitriptyli 2022-0 Yes 10mg Take 10 mg [facility] 10 mg 8-04 by mouth [facility] tablet 00:00: in the [place] 00 morning. [facility] clonazePAM 2022-0 Yes 1mg Take 1 mg [facility] 1 mg tablet 8-04 by [facility] 00:00: in the [place] morning. [facility] amitriptyli 2022-0 Yes 10mg Take 10 mg [facility] 10 mg 8-04 by [facility] tablet 00:00: in the [place] morning. [facility] clonazePAM 2022-0 Yes 1mg Take 1 mg [facility] 1 mg tablet 8-04 by mouth [facility] 00:00: in the [place] morning. [facility] amitriptyli 2022-0 Yes 10mg Take 10 mg [facility] 10 mg 8-04 by [facility] tablet 00:00: in the [place] morning. [facility] clonazePAM 2022-0 Yes 1mg Take 1 mg [facility] 1 mg tablet 8-04 by [facility] 00:00: in the [place] morning. [facility] amitriptyli 2022-0 Yes 10mg Take 10 mg [facility] 10 mg 8-04 by [facility] tablet 00:00: in the [place] 00 morning. [facility] clonazePAM 2022-0 Yes 1mg Take 1 mg [facility] 1 mg tablet 8-04 by [facility] 00:00: in the [place] morning. [facility] amitriptyli 2022-0 Yes 10mg Take 10 mg [facility] 10 mg 8-04 by [facility] tablet 00:00: in the [place] 00 morning. [facility] clonazePAM 2022-0 Yes 1mg Take 1 mg [facility] 1 mg tablet 8-04 by [facility] 00:00: in the [place] 00 morning. [facility] amitriptyli 2022-0 Yes 10mg Take 10 mg [facility] 10 mg 8-04 by [facility] tablet 00:00: in the [place] 00 morning. [facility] clonazePAM 2022-0 Yes 1mg Take 1 mg [facility] 1 mg tablet 8-04 by [facility] 00:00: in the [place] 00 morning. [facility] amitriptyli 2022-0 Yes 10mg Take 10 mg [facility] 10 mg 8-04 by [facility] tablet 00:00: in the [place] 00 morning. [facility] clonazePAM 2022-0 Yes 1mg Take 1 mg [facility] 1 mg tablet 8-04 by [facility] 00:00: in the [place] 00 morning. [facility] amitriptyli 2022-0 Yes 10mg Take 10 mg [facility] 10 mg 8-04 by [facility] tablet 00:00: in the [place] 00 morning. [facility] clonazePAM 2022-0 Yes 1mg Take 1 mg [facility] 1 mg tablet 8-04 by [facility] 00:00: in the [place] 00 morning. [facility] amitriptyli 2022-0 Yes 10mg Take 10 mg [facility] 10 mg 8-04 by [facility] tablet 00:00: in the [place] 00 morning. [facility] clonazePAM 2022-0 Yes 1mg Take 1 mg [facility] 1 mg tablet 8-04 by [facility] 00:00: in the [place] morning. [facility] amitriptyli 2022-0 Yes 10mg Take 10 mg [facility] 10 mg 8-04 by [facility] tablet 00:00: in the [place] 00 morning. [facility] clonazePAM 2022-0 Yes 1mg Take 1 mg [facility] 1 mg tablet 8-04 by [facility] 00:00: in the [place] 00 morning. [facility] amitriptyli 2022-0 Yes 10mg Take 10 mg [facility] 10 mg 8-04 by [facility] tablet 00:00: in the [place] 00 morning. [facility] clonazePAM 2022-0 Yes 1mg Take 1 mg [facility] 1 mg tablet 8-04 by [facility] 00:00: in the [place] 00 morning. [facility] amitriptyli 2022-0 Yes 10mg Take 10 mg [facility] 10 mg 8-04 by [facility] tablet 00:00: in the [place] 00 morning. [facility] clonazePAM 2022-0 Yes 1mg Take 1 mg [facility] 1 mg tablet 8-04 by [facility] 00:00: in the [place] 00 morning. [facility] amitriptyli 2022-0 Yes 10mg Take 10 mg [facility] 10 mg 8-04 by [facility] tablet 00:00: in the [place] 00 morning. [facility] clonazePAM 2022-0 Yes 1mg Take 1 mg [facility] 1 mg tablet 8-04 by [facility] 00:00: in the [place] 00 morning. [facility] amitriptyli 2022-0 Yes 10mg Take 10 mg [facility] 10 mg 8-04 by [facility] tablet 00:00: in the [place] 00 morning. [facility] clonazePAM 2022-0 Yes 1mg Take 1 mg [facility] 1 mg tablet 8-04 by [facility] 00:00: in the [place] morning. [facility] amitriptyli 2022-0 Yes 10mg Take 10 mg [facility] 10 mg 8-04 by [facility] tablet 00:00: in the [place] morning. [facility] clonazePAM 2022-0 Yes 1mg Take 1 mg [facility] 1 mg tablet 8-04 by [facility] 00:00: in the [place] 00 morning. [facility] amitriptyli 2022-0 Yes 10mg Take 10 mg [facility] 10 mg 8-04 by [facility] tablet 00:00: in the [place] morning. [facility] clonazePAM 2022-0 Yes 1mg Take 1 mg [facility] 1 mg tablet 8-04 by mouth [facility] of 00:00: in the [place] morning. [facility] amitriptyli 2022-0 Yes 10mg Take 10 mg [facility] 10 mg 8-04 by [facility] tablet 00:00: in the [place] 00 morning. [facility] clonazePAM 2022-0 Yes 1mg Take 1 mg [facility] 1 mg tablet 8-04 by mouth [facility] 00:00: in the [place] morning. [facility] amitriptyli 2022-0 Yes 10mg Take 10 mg [facility] 10 mg 8-04 by [facility] tablet 00:00: in the [place] 00 morning. [facility] clonazePAM 2022-0 Yes 1mg Take 1 mg [facility] 1 mg tablet 8-04 by mouth [facility] of 00:00: in the [place] 00 morning. [facility] amitriptyli 2022-0 Yes 10mg Take 10 mg [facility] 10 mg 8-04 by [facility] tablet 00:00: in the [place] 00 morning. [facility] clonazePAM 2022-0 Yes 1mg Take 1 mg [facility] 1 mg tablet 8-04 by mouth [facility] of 00:00: in the [place] 00 morning. [facility] amitriptyli 2022-0 Yes 10mg Take 10 mg [facility] 10 mg 8-04 by [facility] tablet 00:00: in the [place] 00 morning. [facility] clonazePAM 2022-0 Yes 1mg Take 1 mg [facility] 1 mg tablet 8-04 by [facility] 00:00: in the [place] morning. [facility] amitriptyli 2022-0 Yes 10mg Take 10 mg [facility] 10 mg 8-04 by [facility] tablet 00:00: in the [place] morning. [facility] clonazePAM 2022-0 Yes 1mg Take 1 mg [facility] 1 mg tablet 8-04 by [facility] of 00:00: in the [place] morning. [facility] amitriptyli 2022-0 Yes 10mg Take 10 mg [facility] 10 mg 8-04 by [facility] tablet 00:00: in the [place] morning. [facility] clonazePAM 2022-0 Yes 1mg Take 1 mg [facility] 1 mg tablet 8-04 by [facility] 00:00: in the [place] morning. [facility] amitriptyli 2022-0 Yes 10mg Take 10 mg [facility] 10 mg 8-04 by [facility] tablet 00:00: in the [place] morning. [facility] clonazePAM 2022-0 Yes 1mg Take 1 mg [facility] 1 mg tablet 8-04 by [facility] 00:00: in the [place] 00 morning. [facility] amitriptyli 2022-0 Yes 10mg Take 10 mg [facility] 10 mg 8-04 by [facility] tablet 00:00: in the [place] morning. [facility] clonazePAM 2022-0 Yes 1mg Take 1 mg [facility] 1 mg tablet 8-04 by [facility] of 00:00: in the [place] morning. [facility] amitriptyli 2022-0 Yes 10mg Take 10 mg [facility] 10 mg 8-04 by [facility] tablet 00:00: in the [place] 00 morning. [facility] clonazePAM 2022-0 Yes 1mg Take 1 mg [facility] 1 mg tablet 8-04 by [facility] of 00:00: in the [place] 00 morning. [facility] amitriptyli 2022-0 Yes 10mg Take 10 mg [facility] 10 mg 8-04 by [facility] tablet 00:00: in the [place] 00 morning. [facility] clonazePAM 2022-0 Yes 1mg Take 1 mg [facility] 1 mg tablet 8-04 by mouth [facility] 00:00: in the [place] 00 morning. [facility] amitriptyli 2022-0 Yes 10mg Take 10 mg [facility] 10 mg 8-04 by [facility] tablet 00:00: in the [place] morning. [facility] clonazePAM 2022-0 Yes 1mg Take 1 mg [facility] 1 mg tablet 8-04 by mouth [facility] of 00:00: in the [place] morning. [facility] amitriptyli 2022-0 Yes 10mg Take 10 mg [facility] 10 mg 8-04 by [facility] tablet 00:00: in the [place] morning. [facility] clonazePAM 2022-0 Yes 1mg Take 1 mg [facility] 1 mg tablet 8-04 by [facility] 00:00: in the [place] morning. [facility] amitriptyli 2022-0 Yes 10mg Take 10 mg [facility] 10 mg 8-04 by [facility] tablet 00:00: in the [place] morning. [facility] clonazePAM 2022-0 Yes 1mg Take 1 mg [facility] 1 mg tablet 8-04 by [facility] of 00:00: in the [place] morning. [facility] amitriptyli 2022-0 Yes 10mg Take 10 mg [facility] 10 mg 8-04 by [facility] tablet 00:00: in the [place] morning. [facility] clonazePAM 2022-0 Yes 1mg Take 1 mg [facility] 1 mg tablet 8-04 by mouth [facility] of 00:00: in the [place] morning. [facility] amitriptyli 2022-0 Yes 10mg Take 10 mg [facility] 10 mg 8-04 by [facility] tablet 00:00: in the [place] 00 morning. [facility] clonazePAM 2022-0 Yes 1mg Take 1 mg [facility] 1 mg tablet 8-04 by mouth [facility] 00:00: in the [place] 00 morning. [facility] amitriptyli 2022-0 Yes 10mg Take 10 mg [facility] 10 mg 8-04 by [facility] tablet 00:00: in the [place] 00 morning. [facility] clonazePAM 2022-0 Yes 1mg Take 1 mg [facility] 1 mg tablet 8-04 by mouth [facility] of 00:00: in the [place] morning. [facility] amitriptyli 2022-0 Yes 10mg Take 10 mg [facility] 10 mg 8-04 by [facility] tablet 00:00: in the [place] morning. [facility] clonazePAM 2022-0 Yes 1mg Take 1 mg [facility] 1 mg tablet 8-04 by mouth [facility] of 00:00: in the [place] morning. [facility] amitriptyli 2022-0 Yes 10mg Take 10 mg [facility] 10 mg 8-04 by [facility] of tablet 00:00: in the [place] morning. [facility] clonazePAM 2022-0 Yes 1mg Take 1 mg [facility] 1 mg tablet 8-04 by mouth [facility] of 00:00: in the [place] morning. [facility] amitriptyli 2022-0 Yes 10mg Take 10 mg [facility] 10 mg 8-04 by [facility] tablet 00:00: in the [place] morning. [facility] clonazePAM 2022-0 Yes 1mg Take 1 mg [facility] 1 mg tablet 8-04 by mouth [facility] of 00:00: in the [place] morning. [facility] amitriptyli 2022-0 Yes 10mg Take 10 mg [facility] 10 mg 8-04 by [facility] tablet 00:00: in the [place] morning. [facility] clonazePAM 2022-0 Yes 1mg Take 1 mg [facility] 1 mg tablet 8-04 by mouth [facility] of 00:00: in the [place] morning. [facility] clonazePAM 2022-0 Yes 1mg Take 1 mg [facility] 1 mg tablet 8-04 by mouth [facility] of 00:00: in the [place] morning. [facility] clonazePAM 2022-0 Yes 1mg Take 1 mg [facility] 1 mg tablet 8-04 by mouth [facility] of 00:00: in the [place] morning. [facility] clonazePAM 2022-0 Yes 1mg Take 1 mg [facility] 1 mg tablet 8-04 by mouth [facility] of 00:00: in the [place] 00 morning. [facility] clonazePAM 2022-0 Yes 1mg Take 1 mg [facility] 1 mg tablet 8-04 by mouth [facility] of 00:00: in the [place] morning. [facility] clonazePAM 2022-0 Yes 1mg Take 1 mg [facility] 1 mg tablet 8-04 by mouth [facility] of 00:00: in the [place] morning. [facility] clonazePAM 2022-0 Yes 1mg Take 1 mg [facility] 1 mg tablet 8-04 by mouth [facility] of 00:00: in the [place] morning. [facility] clonazePAM 2022-0 Yes 1mg Take 1 mg [facility] 1 mg tablet 8-04 by mouth [facility] of 00:00: in the [place] morning. [facility] clonazePAM 2022-0 Yes 1mg Take 1 mg [facility] 1 mg tablet 8-04 by mouth [facility] of 00:00: in the [place] morning. [facility] clonazePAM 2022-0 Yes 1mg Take 1 mg [facility] 1 mg tablet 8-04 by mouth [facility] of 00:00: in the [place] morning. [facility] clonazePAM 2022-0 Yes 1mg Take 1 mg [facility] 1 mg tablet 8-04 by mouth [facility] of 00:00: in the [place] morning. [facility] clonazePAM 2022-0 Yes 1mg Take 1 mg [facility] 1 mg tablet 8-04 by mouth [facility] of 00:00: in the [place] morning. [facility] Branch clonazePAM 2022-0 Yes 1mg Take 1 mg [facility] 1 mg tablet 8-04 by mouth ity of 00:00: in the [place] morning. Medical Branch clonazePAM 2022-0 Yes 1mg Take 1 mg [facility] 1 mg tablet 8-04 by mouth ity of 00:00: in the [place] morning. Medical Branch clonazePAM 2022-0 Yes 1mg Take 1 mg [facility] 1 mg tablet 8-04 by mouth ity of 00:00: in the [place] morning. Medical Branch clonazePAM 2022-0 Yes 1mg Take 1 mg [facility] 1 mg tablet 8-04 by mouth ity of 00:00: in the [place] morning. Medical Branch clonazePAM 2022-0 Yes 1mg Take 1 mg [facility] 1 mg tablet 8-04 by mouth ity of 00:00: in the [place] morning. Medical Branch clonazePAM 2022-0 Yes 1mg Take 1 mg [facility] 1 mg tablet 8-04 by mouth ity of 00:00: in the [place] morning. Medical Branch clonazePAM 2022-0 Yes 1mg Take 1 mg [facility] 1 mg tablet 8-04 by mouth ity of 00:00: in the [place] morning. Medical Branch clonazePAM 2022-0 Yes 1mg Take 1 mg [facility] 1 mg tablet 8-04 by mouth ity of 00:00: in the [place] morning. Medical Branch clonazePAM 2022-0 Yes 1mg Take 1 mg [facility] 1 mg tablet 8-04 by mouth ity of 00:00: in the [place] morning. Medical Branch clonazePAM 2022-0 Yes 1mg Take 1 mg [facility] 1 mg tablet 8-04 by mouth ity of 00:00: in the [place] morning. Medical Branch clonazePAM 2022-0 Yes 1mg Take 1 mg [facility] 1 mg tablet 8-04 by mouth ity of 00:00: in the [place] morning. Medical Branch clonazePAM 2022-0 Yes 1mg Take 1 mg [facility] 1 mg tablet 8-04 by mouth ity of 00:00: in the [place] morning. Medical Branch clonazePAM 2022-0 Yes 1mg Take 1 mg [facility] 1 mg tablet 8-04 by mouth ity of 00:00: in the [place] morning. Medical Branch clonazePAM 2022-0 Yes 1mg Take 1 mg [facility] 1 mg tablet 8-04 by mouth ity of 00:00: in the [place] morning. Medical Branch clonazePAM 2022-0 Yes 1mg Take 1 mg [facility] 1 mg tablet 8-04 by mouth ity of 00:00: in the [place] morning. Medical Branch clonazePAM 2022-0 Yes 1mg Take 1 mg [facility] 1 mg tablet 8-04 by mouth ity of 00:00: in the [place] morning. Medical Branch clonazePAM 2022-0 Yes 1mg Take 1 mg [facility] 1 mg tablet 8-04 by mouth ity of 00:00: in the [place] morning. Medical Branch clonazePAM 2022-0 Yes 1mg Take 1 mg [facility] 1 mg tablet 8-04 by mouth ity of 00:00: in the [place] morning. Medical Branch clonazePAM 2022-0 Yes 1mg Take 1 mg [facility] 1 mg tablet 8-04 by mouth ity of 00:00: in the [place] morning. Medical Branch clonazePAM 2022-0 Yes 1mg Take 1 mg [facility] 1 mg tablet 8-04 by mouth ity of 00:00: in the [place] morning. Medical Branch clonazePAM 2022-0 Yes 1mg Take 1 mg [facility] 1 mg tablet 8-04 by mouth ity of 00:00: in the [place] morning. Medical Branch clonazePAM 2022-0 Yes 1mg Take 1 mg [facility] 1 mg tablet 8-04 by mouth ity of 00:00: in the [place] morning. Medical Branch clonazePAM 2022-0 Yes 1mg Take 1 mg [facility] 1 mg tablet 8-04 by mouth ity of 00:00: in the [place] morning. Medical Branch clonazePAM 2022-0 Yes 1mg Take 1 mg [facility] 1 mg tablet 8-04 by mouth ity of 00:00: in the [place] morning. Medical Branch clonazePAM 2022-0 Yes 1mg Take 1 mg [facility] 1 mg tablet 8-04 by mouth ity of 00:00: in the [place] morning. Medical Branch clonazePAM 2022-0 Yes 1mg Take 1 mg [facility] 1 mg tablet 8-04 by mouth ity of 00:00: in the [place] morning. [facility] Branch clonazePAM 2022-0 Yes 1mg Take 1 mg [facility] 1 mg tablet 8-04 by mouth ity of 00:00: in the [place] morning. [facility] Branch clonazePAM 2022-0 Yes 1mg Take 1 mg [facility] 1 mg tablet 8-04 by mouth ity of 00:00: in the [place] morning. [facility] Branch clonazePAM 2022-0 Yes 1mg Take 1 mg [facility] 1 mg tablet 8-04 by mouth ity of 00:00: in the [place] morning. Medical Branch clonazePAM 2022-0 Yes 1mg Take 1 mg [facility] 1 mg tablet 8-04 by mouth ity of 00:00: in the [place] morning. Medical Branch clonazePAM 2022-0 Yes 1mg Take 1 mg [facility] 1 mg tablet 8-04 by mouth ity of 00:00: in the [place] morning. Medical Branch clonazePAM 2022-0 Yes 1mg Take 1 mg [facility] 1 mg tablet 8-04 by mouth ity of 00:00: in the [place] morning. [facility] Branch clonazePAM 2022-0 Yes 1mg Take 1 mg [facility] 1 mg tablet 8-04 by mouth ity of 00:00: in the [place] morning. [facility] Branch clonazePAM 2022-0 Yes 1mg Take 1 mg [facility] 1 mg tablet 8-04 by mouth ity of 00:00: in the [place] morning. [facility] Branch clonazePAM 2022-0 Yes 1mg Take 1 mg [facility] 1 mg tablet 8-04 by mouth ity of 00:00: in the [place] morning. Medical Branch clonazePAM 2022-0 Yes 1mg Take 1 mg [facility] 1 mg tablet 8-04 by mouth ity of 00:00: in the [place] morning. Medical Branch clonazePAM 2022-0 Yes 1mg Take 1 mg [facility] 1 mg tablet 8-04 by mouth ity of 00:00: in the [place] morning. [facility] Branch clonazePAM 2022-0 Yes 1mg Take 1 mg [facility] 1 mg tablet 8-04 by mouth ity of 00:00: in the [place] morning. [facility] Branch clonazePAM 2022-0 Yes 1mg Take 1 mg [facility] 1 mg tablet 8-04 by mouth ity of 00:00: in the [place] morning. Medical Branch clonazePAM 2022-0 Yes 1mg Take 1 mg [facility] 1 mg tablet 8-04 by mouth ity of 00:00: in the [place] morning. [facility] Branch clonazePAM 2022-0 Yes 1mg Take 1 mg [facility] 1 mg tablet 8-04 by mouth ity of 00:00: in the [place] morning. [facility] Branch clonazePAM 2022-0 Yes 1mg Take 1 mg [facility] 1 mg tablet 8-04 by mouth ity of 00:00: in the [place] morning. [facility] Branch clonazePAM 2022-0 Yes 1mg Take 1 mg [facility] 1 mg tablet 8-04 by mouth ity of 00:00: in the [place] morning. [facility] Branch clonazePAM 2022-0 Yes 1mg Take 1 mg [facility] 1 mg tablet 8-04 by mouth ity of 00:00: in the [place] morning. [facility] Branch clonazePAM 2022-0 Yes 1mg Take 1 mg [facility] 1 mg tablet 8-04 by mouth ity of 00:00: in the [place] morning. [facility] Branch clonazePAM 2022-0 Yes 1mg Take 1 mg [facility] 1 mg tablet 8-04 by mouth ity of 00:00: in the [place] morning. [facility] Branch clonazePAM 2022-0 Yes 1mg Take 1 mg [facility] 1 mg tablet 8-04 by mouth ity of 00:00: in the [place] morning. [facility] Branch clonazePAM 2022-0 Yes 1mg Take 1 mg [facility] 1 mg tablet 8-04 by mouth ity of 00:00: in the [place] morning. [facility] Branch clonazePAM 2022-0 Yes 1mg Take 1 mg [facility] 1 mg tablet 8-04 by mouth ity of 00:00: in the [place] morning. [facility] Branch clonazePAM 2022-0 Yes 1mg Take 1 mg [facility] 1 mg tablet 8-04 by mouth ity of 00:00: in the [place] morning. Medical Branch clonazePAM 2022-0 Yes 1mg Take 1 [facility] 1 mg tablet 8-04 tablet by ity of 00:00: mouth in [place] the morning. Branch clonazePAM 2022-0 Yes 1mg Take 1 [facility] 1 mg tablet 8-04 tablet by ity of 00:00: mouth in [place] the morning. Branch clonazePAM 2022-0 Yes 1mg Take 1 [facility] 1 mg tablet 8-04 tablet by ity of 00:00: mouth in [place] the morning. Branch clonazePAM 2022-0 Yes 1mg Take 1 [facility] 1 mg tablet 8-04 tablet by ity of 00:00: mouth in [place] the morning. Branch clonazePAM 2022-0 Yes 1mg Take 1 [facility] 1 mg tablet 8-04 tablet by ity of 00:00: mouth in [place] the morning. Branch clonazePAM 2022-0 Yes 1mg Take 1 [facility] 1 mg tablet 8-04 tablet by ity of 00:00: mouth in [place] the morning. Branch clonazePAM 2022-0 Yes 1mg Take 1 [facility] 1 mg tablet 8-04 tablet by ity of 00:00: mouth in [place] the morning. Branch clonazePAM 2022-0 Yes 1mg Take 1 [facility] 1 mg tablet 8-04 tablet by ity of 00:00: mouth in [place] the morning. Branch clonazePAM 2022-0 Yes 1mg Take 1 [facility] 1 mg tablet 8-04 tablet by ity of 00:00: mouth in [place] 00 the Medical morning. Branch clonazePAM 2-0 Yes 1mg Take 1 [facility] 1 mg tablet 8-04 tablet by ity of 00:00: mouth in [place] 00 the Medical morning. Branch clonazePAM 2-0 Yes 1mg Take 1 [facility] 1 mg tablet 8-04 tablet by ity of 00:00: mouth in [place] the Medical morning. Branch clonazePAM 2-0 Yes 1mg Take 1 [facility] 1 mg tablet 8-04 tablet by ity of 00:00: mouth in [place] the Medical morning. Branch clonazePAM 2-0 2023- No 1mg Take 1 [facility] 1 mg tablet 8-20 tablet by it y of 00:00: 00:00 mouth in [place] 00 :00 the Medical morning. Branch clonazePAM 2-0 3- No 1mg Take 1 [facility] 1 mg tablet 8-10 09-20 tablet by it y of 00:00: 00:00 mouth in [place] 00 :00 the Medical morning. Branch amitriptyli 2021-0 3- No 10mg Take 10 mg [facility] ne 10 mg 02-09 by mouth ity of tablet 00:00: 00:00 in the [place] 00 :00 morning. Medical Branch amitriptyli 2021-0 3- No 10mg Take 10 mg [facility] ne 10 mg 02-09 by mouth ity of tablet 00:00: 00:00 in the [place] 00 :00 morning. Medical Branch pramipexole 2-0 Yes [id number] .25mg Take 1 [facility] 0.25 mg 7-15 tablet by ity of tablet 00:00: mouth in [place] the Medical morning Branch and 1 tablet in the evening. For restless leg syndrome pramipexole 2-0 Yes [id number] .25mg Take 1 [facility] 0.25 mg 7-15 tablet by ity of tablet 00:00: mouth in [place] the Medical morning Branch and 1 tablet in the evening. For restless leg syndrome pramipexole 2022-0 Yes [id number] .25mg Take 1 [facility] 0.25 mg 7-15 tablet by ity of tablet 00:00: mouth in [place] the Medical morning Branch and 1 tablet in the evening. For restless leg syndrome pramipexole 2-0 Yes [id number] .25mg Take 1 [facility] 0.25 mg 7-15 tablet by ity of tablet 00:00: mouth in [place] [address] the Medical morning Branch and 1 tablet in the evening. For restless leg syndrome pramipexole 2022-0 Yes [id number] .25mg Take 1 [facility] 0.25 mg 7-15 tablet by ity of tablet 00:00: mouth in [place] [address] the Medical morning Branch and 1 tablet in the evening. For restless leg syndrome pramipexole 2022-0 Yes [id number] .25mg Take 1 [facility] 0.25 mg 7-15 tablet by ity of tablet 00:00: mouth in [place] [address] the Medical morning Branch and 1 tablet in the evening. For restless leg syndrome pramipexole 2022-0 Yes [id number] .25mg Take 1 [facility] 0.25 mg 7-15 tablet by ity of tablet 00:00: mouth in [place] [address] the [facility] morning [place] and 1 tablet in the evening. For restless leg syndrome pramipexole 2022-0 Yes [id number] .25mg Take 1 [facility] 0.25 mg 7-15 tablet by ity of tablet 00:00: mouth in [place] [address] the [facility] morning [place] and 1 tablet in the evening. For restless leg syndrome pramipexole 2-0 Yes [id number] .25mg Take 1 [facility] 0.25 mg 7-15 tablet by ity of tablet 00:00: mouth in [place] [address] the [facility] morning [place] and 1 tablet in the evening. For restless leg syndrome pramipexole 2022-0 Yes [id number] .25mg Take 1 [facility] 0.25 mg 7-15 tablet by ity of tablet 00:00: mouth in [place] [address] the [facility] morning [place] and 1 tablet in the evening. For restless leg syndrome pramipexole 2022-0 Yes [id number] .25mg Take 1 [facility] 0.25 mg 7-15 tablet by ity of tablet 00:00: mouth in [place] [address] the [facility] morning [place] and 1 tablet in the evening. For restless leg syndrome pramipexole 2022-0 Yes [id number] .25mg Take 1 [facility] 0.25 mg 7-15 tablet by ity of tablet 00:00: mouth in [address] morning [place] and 1 tablet in the evening. For restless leg syndrome pramipexole 2022-0 Yes [id number] .25mg Take 1 [facility] 0.25 mg 7-15 tablet by ity of tablet 00:00: mouth in [place] [address] the Medical morning Branch and 1 tablet in the evening. For restless leg syndrome pramipexole 2-0 Yes [id number] .25mg Take 1 [facility] 0.25 mg 7-15 tablet by ity of tablet 00:00: mouth in [place] 00 the Medical morning Branch and 1 tablet in the evening. For restless leg syndrome pramipexole 2-0 Yes [id number] .25mg Take 1 [facility] 0.25 mg 7-15 tablet by ity of tablet 00:00: mouth in [place] [address] the Medical morning Branch and 1 tablet in the evening. For restless leg syndrome pramipexole 2-0 Yes [id number] .25mg Take 1 [facility] 0.25 mg 7-15 tablet by ity of tablet 00:00: mouth in [place] [address] the [facility] morning [place] and 1 tablet in the evening. For restless leg syndrome pramipexole 2-0 Yes [id number] .25mg Take 1 [facility] 0.25 mg 7-15 tablet by ity of tablet 00:00: mouth in [place] [address] the [facility] morning [place] and 1 tablet in the evening. For restless leg syndrome pramipexole 2-0 Yes [id number] .25mg Take 1 [facility] 0.25 mg 7-15 tablet by ity of tablet 00:00: mouth in [place] [address] the [facility] morning [place] and 1 tablet in the evening. For restless leg syndrome pramipexole 2-0 Yes [id number] .25mg Take 1 [facility] 0.25 mg 7-15 tablet by ity of tablet 00:00: mouth in [place] [address] the [facility] morning [place] and 1 tablet in the evening. For restless leg syndrome pramipexole 2-0 Yes [id number] .25mg Take 1 [facility] 0.25 mg 7-15 tablet by ity of tablet 00:00: mouth in [place] [address] the [facility] morning [place] and 1 tablet in the evening. For restless leg syndrome pramipexole 2-0 Yes [id number] .25mg Take 1 [facility] 0.25 mg 7-15 tablet by ity of tablet 00:00: mouth in [address] morning [place] and 1 tablet in the evening. For restless leg syndrome pramipexole 2022-0 Yes [id number] .25mg Take 1 [facility] 0.25 mg 7-15 tablet by ity of tablet 00:00: mouth in [place] 00 the Medical morning Branch and 1 tablet in the evening. For restless leg syndrome pramipexole 2022-0 Yes [id number] .25mg Take 1 [facility] 0.25 mg 7-15 tablet by ity of tablet 00:00: mouth in [place] 00 the Medical morning Branch and 1 tablet in the evening. For restless leg syndrome pramipexole 2022-0 Yes [id number] .25mg Take 1 [facility] 0.25 mg 7-15 tablet by ity of tablet 00:00: mouth in [place] [address] the Medical morning Branch and 1 tablet in the evening. For restless leg syndrome pramipexole 2-0 Yes [id number] .25mg Take 1 [facility] 0.25 mg 7-15 tablet by ity of tablet 00:00: mouth in [place] [address] the [facility] morning [place] and 1 tablet in the evening. For restless leg syndrome pramipexole 2-0 Yes [id number] .25mg Take 1 [facility] 0.25 mg 7-15 tablet by ity of tablet 00:00: mouth in [place] [address] the [facility] morning [place] and 1 tablet in the evening. For restless leg syndrome pramipexole 2-0 Yes [id number] .25mg Take 1 [facility] 0.25 mg 7-15 tablet by ity of tablet 00:00: mouth in [place] [address] the [facility] morning [place] and 1 tablet in the evening. For restless leg syndrome pramipexole 2-0 Yes [id number] .25mg Take 1 [facility] 0.25 mg 7-15 tablet by ity of tablet 00:00: mouth in [place] [address] the [facility] morning [place] and 1 tablet in the evening. For restless leg syndrome pramipexole 2022-0 Yes [id number] .25mg Take 1 [facility] 0.25 mg 7-15 tablet by ity of tablet 00:00: mouth in [place] [address] the [facility] morning [place] and 1 tablet in the evening. For restless leg syndrome pramipexole 2-0 Yes [id number] .25mg Take 1 [facility] 0.25 mg 7-15 tablet by ity of tablet 00:00: mouth in [place] [address] the [facility] morning [place] and 1 tablet in the evening. For restless leg syndrome pramipexole 2022-0 Yes [id number] .25mg Take 1 [facility] 0.25 mg 7-15 tablet by ity of tablet 00:00: mouth in [place] [address] the Medical morning Branch and 1 tablet in the evening. For restless leg syndrome pramipexole 2022-0 Yes [id number] .25mg Take 1 [facility] 0.25 mg 7-15 tablet by ity of tablet 00:00: mouth in [place] 00 the Medical morning Branch and 1 tablet in the evening. For restless leg syndrome pramipexole 2022-0 Yes [id number] .25mg Take 1 [facility] 0.25 mg 7-15 tablet by ity of tablet 00:00: mouth in [place] [address] the [facility] morning Branch and 1 tablet in the evening. For restless leg syndrome pramipexole 2-0 Yes [id number] .25mg Take 1 [facility] 0.25 mg 7-15 tablet by ity of tablet 00:00: mouth in [place] [address] the [facility] morning [place] and 1 tablet in the evening. For restless leg syndrome pramipexole 2-0 Yes [id number] .25mg Take 1 [facility] 0.25 mg 7-15 tablet by ity of tablet 00:00: mouth in [place] [address] the [facility] morning [place] and 1 tablet in the evening. For restless leg syndrome pramipexole 2-0 Yes [id number] .25mg Take 1 [facility] 0.25 mg 7-15 tablet by ity of tablet 00:00: mouth in [place] [address] the [facility] morning [place] and 1 tablet in the evening. For restless leg syndrome pramipexole 2-0 Yes [id number] .25mg Take 1 [facility] 0.25 mg 7-15 tablet by ity of tablet 00:00: mouth in [place] [address] the [facility] morning [place] and 1 tablet in the evening. For restless leg syndrome pramipexole 2022-0 Yes [id number] .25mg Take 1 [facility] 0.25 mg 7-15 tablet by ity of tablet 00:00: mouth in [address] morning [place] and 1 tablet in the evening. For restless leg syndrome pramipexole 2022-0 Yes [id number] .25mg Take 1 [facility] 0.25 mg 7-15 tablet by ity of tablet 00:00: mouth in [address] morning [place] and 1 tablet in the evening. For restless leg syndrome pramipexole 2022-0 Yes [id number] .25mg Take 1 [facility] 0.25 mg 7-15 tablet by ity of tablet 00:00: mouth in [place] [address] the [facility] morning Branch and 1 tablet in the evening. For restless leg syndrome pramipexole 2-0 Yes [id number] .25mg Take 1 [facility] 0.25 mg 7-15 tablet by ity of tablet 00:00: mouth in [place] [address] the [facility] morning Branch and 1 tablet in the evening. For restless leg syndrome pramipexole 2022-0 Yes [id number] .25mg Take 1 [facility] 0.25 mg 7-15 tablet by ity of tablet 00:00: mouth in [place] [address] the [facility] morning [place] and 1 tablet in the evening. For restless leg syndrome pramipexole 2-0 Yes [id number] .25mg Take 1 [facility] 0.25 mg 7-15 tablet by ity of tablet 00:00: mouth in [place] [address] the [facility] morning [place] and 1 tablet in the evening. For restless leg syndrome pramipexole 2-0 Yes [id number] .25mg Take 1 [facility] 0.25 mg 7-15 tablet by ity of tablet 00:00: mouth in [place] [address] the [facility] morning [place] and 1 tablet in the evening. For restless leg syndrome pramipexole 2-0 Yes [id number] .25mg Take 1 [facility] 0.25 mg 7-15 tablet by ity of tablet 00:00: mouth in [place] [address] the [facility] morning [place] and 1 tablet in the evening. For restless leg syndrome pramipexole 2-0 Yes [id number] .25mg Take 1 [facility] 0.25 mg 7-15 tablet by ity of tablet 00:00: mouth in [address] morning [place] and 1 tablet in the evening. For restless leg syndrome pramipexole 2-0 Yes [id number] .25mg Take 1 [facility] 0.25 mg 7-15 tablet by ity of tablet 00:00: mouth in [address] and 1 tablet in the evening. For restless leg syndrome pramipexole 2022-0 Yes [id number] .25mg Take 1 [facility] 0.25 mg 7-15 tablet by ity of tablet 00:00: mouth in [address] morning [place] and 1 tablet in the evening. For restless leg syndrome pramipexole 2022-0 Yes [id number] .25mg Take 1 [facility] 0.25 mg 7-15 tablet by ity of tablet 00:00: mouth in [place] [address] the Medical morning Branch and 1 tablet in the evening. For restless leg syndrome pramipexole 2022-0 Yes [id number] .25mg Take 1 [facility] 0.25 mg 7-15 tablet by ity of tablet 00:00: mouth in [place] [address] the Medical morning Branch and 1 tablet in the evening. For restless leg syndrome pramipexole 2022-0 Yes [id number] .25mg Take 1 [facility] 0.25 mg 7-15 tablet by ity of tablet 00:00: mouth in [place] [address] the [facility] morning [place] and 1 tablet in the evening. For restless leg syndrome pramipexole 2-0 Yes [id number] .25mg Take 1 [facility] 0.25 mg 7-15 tablet by ity of tablet 00:00: mouth in [place] [address] the [facility] morning [place] and 1 tablet in the evening. For restless leg syndrome pramipexole 2-0 Yes [id number] .25mg Take 1 [facility] 0.25 mg 7-15 tablet by ity of tablet 00:00: mouth in [place] [address] the [facility] morning [place] and 1 tablet in the evening. For restless leg syndrome pramipexole 2-0 Yes [id number] .25mg Take 1 [facility] 0.25 mg 7-15 tablet by ity of tablet 00:00: mouth in [place] [address] the [facility] morning [place] and 1 tablet in the evening. For restless leg syndrome pramipexole 2022-0 Yes [id number] .25mg Take 1 [facility] 0.25 mg 7-15 tablet by ity of tablet 00:00: mouth in [address] morning [place] and 1 tablet in the evening. For restless leg syndrome pramipexole 2022-0 Yes [id number] .25mg Take 1 [facility] 0.25 mg 7-15 tablet by ity of tablet 00:00: mouth in [address] morning [place] and 1 tablet in the evening. For restless leg syndrome pramipexole 2022-0 Yes [id number] .25mg Take 1 [facility] 0.25 mg 7-15 tablet by ity of tablet 00:00: mouth in [address] morning [place] and 1 tablet in the evening. For restless leg syndrome pramipexole 2022-0 Yes [id number] .25mg Take 1 [facility] 0.25 mg 7-15 tablet by ity of tablet 00:00: mouth in [place] [address] the [facility] morning [place] and 1 tablet in the evening. For restless leg syndrome pramipexole 2022-0 Yes [id number] .25mg Take 1 [facility] 0.25 mg 7-15 tablet by ity of tablet 00:00: mouth in [place] [address] the [facility] morning Branch and 1 tablet in the evening. For restless leg syndrome pramipexole 2022-0 Yes [id number] .25mg Take 1 [facility] 0.25 mg 7-15 tablet by ity of tablet 00:00: mouth in [place] [address] the [facility] morning [place] and 1 tablet in the evening. For restless leg syndrome pramipexole 2022-0 Yes [id number] .25mg Take 1 [facility] 0.25 mg 7-15 tablet by ity of tablet 00:00: mouth in [place] [address] the [facility] morning [place] and 1 tablet in the evening. For restless leg syndrome pramipexole 2022-0 Yes [id number] .25mg Take 1 [facility] 0.25 mg 7-15 tablet by ity of tablet 00:00: mouth in [place] [address] the [facility] morning [place] and 1 tablet in the evening. For restless leg syndrome pramipexole 2022-0 Yes [id number] .25mg Take 1 [facility] 0.25 mg 7-15 tablet by ity of tablet 00:00: mouth in [place] [address] the [facility] morning [place] and 1 tablet in the evening. For restless leg syndrome pramipexole 2022-0 Yes [id number] .25mg Take 1 [facility] 0.25 mg 7-15 tablet by ity of tablet 00:00: mouth in [place] [address] the [facility] morning [place] and 1 tablet in the evening. For restless leg syndrome pramipexole 2022-0 Yes [id number] .25mg Take 1 [facility] 0.25 mg 7-15 tablet by ity of tablet 00:00: mouth in [place] [address] the [facility] morning [place] and 1 tablet in the evening. For restless leg syndrome pramipexole 2022-0 Yes [id number] .25mg Take 1 [facility] 0.25 mg 7-15 tablet by ity of tablet 00:00: mouth in [place] 00 the Medical morning Branch and 1 tablet in the evening. For restless leg syndrome pramipexole 2022-0 Yes [id number] .25mg Take 1 [facility] 0.25 mg 7-15 tablet by ity of tablet 00:00: mouth in [place] [address] the Medical morning Branch and 1 tablet in the evening. For restless leg syndrome pramipexole 2022-0 Yes [id number] .25mg Take 1 [facility] 0.25 mg 7-15 tablet by ity of tablet 00:00: mouth in [place] [address] the [facility] morning Branch and 1 tablet in the evening. For restless leg syndrome pramipexole 2022-0 Yes [id number] .25mg Take 1 [facility] 0.25 mg 7-15 tablet by ity of tablet 00:00: mouth in [place] [address] the [facility] morning Branch and 1 tablet in the evening. For restless leg syndrome pramipexole 2022-0 Yes [id number] .25mg Take 1 [facility] 0.25 mg 7-15 tablet by ity of tablet 00:00: mouth in [place] [address] the [facility] morning [place] and 1 tablet in the evening. For restless leg syndrome pramipexole 2022-0 Yes [id number] .25mg Take 1 [facility] 0.25 mg 7-15 tablet by ity of tablet 00:00: mouth in [place] [address] the [facility] morning [place] and 1 tablet in the evening. For restless leg syndrome pramipexole 2022-0 Yes [id number] .25mg Take 1 [facility] 0.25 mg 7-15 tablet by ity of tablet 00:00: mouth in [place] [address] the [facility] morning [place] and 1 tablet in the evening. For restless leg syndrome pramipexole 2022-0 Yes [id number] .25mg Take 1 [facility] mg 7-15 tablet by [facility] of tablet 00:00: mouth in [place] [address] the [facility] morning Branch and 1 tablet in the evening. For restless leg syndrome pramipexole 2022-0 Yes [id number] .25mg Take 1 [facility] 0[facility]25 mg 7-15 tablet by [facility] of tablet 00:00: mouth in [place] [address] the [facility] morning [place] and 1 tablet in the evening. For restless leg syndrome pramipexole 2022-0 Yes [id number] .25mg Take 1 [facility] 0[facility]25 mg 7-15 tablet by [facility] of tablet 00:00: mouth in [place] 00 the Medical morning Branch and 1 tablet in the evening. For restless leg syndrome pramipexole 2022-0 Yes [id number] .25mg Take 1 [facility] 0.25 mg 7-15 tablet by [facility] of tablet 00:00: mouth in [place] [address] the [facility] morning Branch and 1 tablet in the evening. For restless leg syndrome pramipexole 2022-0 Yes [id number] .25mg Take 1 [facility] 0[facility]25 mg 7-15 tablet by [facility] of tablet 00:00: mouth in [place] [address] the [facility] and 1 tablet in the evening. For restless leg syndrome pramipexole 2022-0 Yes [id number] .25mg Take 1 [facility] 0.25 mg 7-15 tablet by [facility] of tablet 00:00: mouth in [place] [address] the [facility] and 1 tablet in the evening. For restless leg syndrome pramipexole 2022-0 Yes [id number] .25mg Take 1 [facility] 0.25 mg 7-15 tablet by [facility] of tablet 00:00: mouth in [address] and 1 tablet in the evening. For restless leg syndrome pramipexole 2022-0 Yes [id number] .25mg Take 1 [facility] 0.25 mg 7-15 tablet by [facility] of tablet 00:00: mouth in [place] [address] the [facility] morning [place] and 1 tablet in the evening. For restless leg syndrome pramipexole 2022-0 Yes [id number] .25mg Take 1 [facility] 0[facility]25 mg 7-15 tablet by [facility] of tablet 00:00: mouth in [place] [address] the [facility] and 1 tablet in the evening. For restless leg syndrome pramipexole 2022-0 Yes [id number] .25mg Take 1 [facility] 0[facility]25 mg 7-15 tablet by [facility] of tablet 00:00: mouth in [address] and 1 tablet in the evening. For restless leg syndrome pramipexole 2022-0 Yes [id number] .25mg Take 1 [facility] 0[facility]25 mg 7-15 tablet by [facility] of tablet 00:00: mouth in [address] and 1 tablet in the evening. For restless leg syndrome pramipexole 2022-0 Yes [id number] .25mg Take 1 [facility] 0[facility]25 mg 7-15 tablet by [facility] of tablet 00:00: mouth in [address] [place] and 1 tablet in the evening. For restless leg syndrome pramipexole 2022-0 Yes [id number] .25mg Take 1 [facility] 0.25 mg 7-15 tablet by [facility] of tablet 00:00: mouth in [place] [address] the [facility] morning [place] and 1 tablet in the evening. For restless leg syndrome pramipexole 2022-0 Yes [id number] .25mg Take 1 [facility] 0[facility]25 mg 7-15 tablet by [facility] tablet 00:00: mouth in [address] and 1 tablet in the evening. For restless leg syndrome pramipexole 2022-0 Yes [id number] .25mg Take 1 [facility] 0.25 mg 7-15 tablet by [facility] of tablet 00:00: mouth in [address] and 1 tablet in the evening. For restless leg syndrome pramipexole 2022-0 Yes [id number] .25mg Take 1 [facility] 0[facility]25 mg 7-15 tablet by [facility] of tablet 00:00: mouth in [address] and 1 tablet in the evening. For restless leg syndrome pramipexole 2022-0 Yes [id number] .25mg Take 1 [facility] 0[facility]25 mg 7-15 tablet by [facility] of tablet 00:00: mouth in [address] and 1 tablet in the evening. For restless leg syndrome pramipexole 2022-0 Yes [id number] .25mg Take 1 [facility] 0.25 mg 7-15 tablet by [facility] of tablet 00:00: mouth in [address] and 1 tablet in the evening. For restless leg syndrome pramipexole 2022-0 Yes [id number] .25mg Take 1 [facility] 0.25 mg 7-15 tablet by [facility] of tablet 00:00: mouth in [address] morning [place] and 1 tablet in the evening. For restless leg syndrome pramipexole 2022-0 Yes [id number] .25mg Take 1 [facility] 0.25 mg 7-15 tablet by [facility] of tablet 00:00: mouth in [address] and 1 tablet in the evening. For restless leg syndrome pramipexole 2022-0 Yes [id number] .25mg Take 1 [facility] 0.25 mg 7-15 tablet by [facility] of tablet 00:00: mouth in [address] morning [place] and 1 tablet in the evening. For restless leg syndrome pramipexole 2022-0 Yes [id number] .25mg Take 1 [facility] 0.25 mg 7-15 tablet by [facility] of tablet 00:00: mouth in [place] [address] the [facility] morning [place] and 1 tablet in the evening. For restless leg syndrome pramipexole 2022-0 Yes [id number] .25mg Take 1 [facility] 0[facility]25 mg 7-15 tablet by [facility] of tablet 00:00: mouth in [address] morning [place] and 1 tablet in the evening. For restless leg syndrome pramipexole 2022-0 Yes [id number] .25mg Take 1 [facility] 0.25 mg 7-15 tablet by [facility] of tablet 00:00: mouth in [address] and 1 tablet in the evening. For restless leg syndrome pramipexole 2022-0 Yes [id number] .25mg Take 1 [facility] 0.25 mg 7-15 tablet by [facility] of tablet 00:00: mouth in [address] and 1 tablet in the evening. For restless leg syndrome pramipexole 2022-0 Yes [id number] .25mg Take 1 [facility] 0[facility]25 mg 7-15 tablet by [facility] of tablet 00:00: mouth in [address] and 1 tablet in the evening. For restless leg syndrome pramipexole 2022-0 Yes [id number] .25mg Take 1 [facility] 0[facility]25 mg 7-15 tablet by [facility] of tablet 00:00: mouth in [address] morning [place] and 1 tablet in the evening. For restless leg syndrome pramipexole 2022-0 Yes [id number] .25mg Take 1 [facility] 0[facility]25 mg 7-15 tablet by [facility] of tablet 00:00: mouth in [address] morning [place] and 1 tablet in the evening. For restless leg syndrome pramipexole 2022-0 Yes [id number] .25mg Take 1 [facility] 0[facility]25 mg 7-15 tablet by [facility] of tablet 00:00: mouth in [address] morning [place] and 1 tablet in the evening. For restless leg syndrome pramipexole 2022-0 Yes [id number] .25mg Take 1 [facility] 0[facility]25 mg 7-15 tablet by [facility] of tablet 00:00: mouth in [place] [address] the [facility] morning [place] and 1 tablet in the evening. For restless leg syndrome pramipexole 2022-0 Yes [id number] .25mg Take 1 [facility] 0.25 mg 7-15 tablet by [facility] of tablet 00:00: mouth in [place] [address] the [facility] morning [place] and 1 tablet in the evening. For restless leg syndrome pramipexole 2022-0 Yes [id number] .25mg Take 1 [facility] 0.25 mg 7-15 tablet by [facility] of tablet 00:00: mouth in [place] [address] the [facility] morning [place] and 1 tablet in the evening. For restless leg syndrome pramipexole 2022-0 Yes [id number] .25mg Take 1 [facility] 0.25 mg 7-15 tablet by [facility] of tablet 00:00: mouth in [address] morning [place] and 1 tablet in the evening. For restless leg syndrome pramipexole 2022-0 Yes [id number] .25mg Take 1 [facility] 0.25 mg 7-15 tablet by [facility] of tablet 00:00: mouth in [address] and 1 tablet in the evening. For restless leg syndrome pramipexole 2022-0 Yes [id number] .25mg Take 1 [facility] 0.25 mg 7-15 tablet by [facility] of tablet 00:00: mouth in [address] and 1 tablet in the evening. For restless leg syndrome pramipexole 2022-0 Yes [id number] .25mg Take 1 [facility] 0.25 mg 7-15 tablet by [facility] of tablet 00:00: mouth in [address] morning [place] and 1 tablet in the evening. For restless leg syndrome pramipexole 2022-0 Yes [id number] .25mg Take 1 [facility] 0.25 mg 7-15 tablet by [facility] of tablet 00:00: mouth in [address] morning [place] and 1 tablet in the evening. For restless leg syndrome pramipexole 2022-0 Yes [id number] .25mg Take 1 [facility] 0.25 mg 7-15 tablet by [facility] of tablet 00:00: mouth in [address] morning [place] and 1 tablet in the evening. For restless leg syndrome pramipexole 2022-0 Yes [id number] .25mg Take 1 [facility] 0.25 mg 7-15 tablet by [facility] of tablet 00:00: mouth in [place] [address] the [facility] morning [place] and 1 tablet in the evening. For restless leg syndrome pramipexole 2022-0 Yes [id number] .25mg Take 1 [facility] 0.25 mg 7-15 tablet by [facility] of tablet 00:00: mouth in [place] [address] the [facility] morning [place] and 1 tablet in the evening. For restless leg syndrome pramipexole 2022-0 Yes [id number] .25mg Take 1 [facility] 0.25 mg 7-15 tablet by [facility] of tablet 00:00: mouth in [place] [address] the [facility] morning [place] and 1 tablet in the evening. For restless leg syndrome pramipexole 2022-0 Yes [id number] .25mg Take 1 [facility] 0.25 mg 7-15 tablet by [facility] of tablet 00:00: mouth in [address] morning [place] and 1 tablet in the evening. For restless leg syndrome pramipexole 2022-0 Yes [id number] .25mg Take 1 [facility] 0.25 mg 7-15 tablet by [facility] of tablet 00:00: mouth in [address] and 1 tablet in the evening. For restless leg syndrome pramipexole 2022-0 Yes [id number] .25mg Take 1 [facility] 0.25 mg 7-15 tablet by [facility] of tablet 00:00: mouth in [address] and 1 tablet in the evening. For restless leg syndrome pramipexole 2022-0 Yes [id number] .25mg Take 1 [facility] 0.25 mg 7-15 tablet by [facility] of tablet 00:00: mouth in [address] morning [place] and 1 tablet in the evening. For restless leg syndrome pramipexole 2022-0 Yes [id number] .25mg Take 1 [facility] 0.25 mg 7-15 tablet by [facility] of tablet 00:00: mouth in [address] morning [place] and 1 tablet in the evening. For restless leg syndrome pramipexole 2022-0 Yes [id number] .25mg Take 1 [facility] 0.25 mg 7-15 tablet by [facility] of tablet 00:00: mouth in [address] morning [place] and 1 tablet in the evening. For restless leg syndrome pramipexole 2022-0 Yes [id number] .25mg Take 1 [facility] 0.25 mg 7-15 tablet by [facility] of tablet 00:00: mouth in [place] [address] the Medical morning Branch and 1 tablet in the evening. For restless leg syndrome pramipexole 2022-0 Yes [id number] .25mg Take 1 [facility] 0.25 mg 7-15 tablet by [facility] of tablet 00:00: mouth in [place] [address] the [facility] morning [place] and 1 tablet in the evening. For restless leg syndrome pramipexole 2022-0 Yes [id number] .25mg Take 1 [facility] 0.25 mg 7-15 tablet by [facility] of tablet 00:00: mouth in [place] [address] the [facility] morning [place] and 1 tablet in the evening. For restless leg syndrome pramipexole 2022-0 Yes [id number] .25mg Take 1 [facility] 0.25 mg 7-15 tablet by [facility] of tablet 00:00: mouth in [place] [address] the [facility] morning [place] and 1 tablet in the evening. For restless leg syndrome pramipexole 2-0 Yes [id number] .25mg Take 1 [facility] 0.25 mg 7-15 tablet by [facility] of tablet 00:00: mouth in [place] [address] the [facility] morning [place] and 1 tablet in the evening. For restless leg syndrome pramipexole 2-0 Yes [id number] .25mg Take 1 [facility] 0.25 mg 7-15 tablet by [facility] of tablet 00:00: mouth in [place] [address] the [facility] morning [place] and 1 tablet in the evening. For restless leg syndrome pramipexole 2022-0 Yes [id number] .25mg Take 1 [facility] 0.25 mg 7-15 tablet by it[facility] of tablet 00:00: mouth in [address] morning [place] and 1 tablet in the evening. For restless leg syndrome pramipexole 2022-0 Yes [id number] .25mg Take 1 [facility] 0.25 mg 7-15 tablet by [facility] of tablet 00:00: mouth in [place] [address] the [facility] morning [place] and 1 tablet in the evening. For restless leg syndrome pramipexole 2022-0 Yes [id number] .25mg Take 1 [facility] 0.25 mg 7-15 tablet by [facility] of tablet 00:00: mouth in [address] morning [place] and 1 tablet in the evening. For restless leg syndrome pramipexole 2022-0 Yes [id number] .25mg Take 1 [facility] 0.25 mg 7-15 tablet by [facility] of tablet 00:00: mouth in [place] [address] the Medical morning Branch and 1 tablet in the evening. For restless leg syndrome pramipexole 2022-0 Yes [id number] .25mg Take 1 [facility] 0.25 mg 7-15 tablet by [facility] of tablet 00:00: mouth in [place] [address] the Medical morning Branch and 1 tablet in the evening. For restless leg syndrome pramipexole 2022-0 Yes [id number] .25mg Take 1 [facility] 0.25 mg 7-15 tablet by [facility] of tablet 00:00: mouth in [place] [address] the Medical morning Branch and 1 tablet in the evening. For restless leg syndrome pramipexole 2022-0 Yes [id number] .25mg Take 1 [facility] 0.25 mg 7-15 tablet by [facility] of tablet 00:00: mouth in [place] [address] the [facility] morning [place] and 1 tablet in the evening. For restless leg syndrome pramipexole 2022-0 Yes [id number] .25mg Take 1 [facility] 0.25 mg 7-15 tablet by [facility] of tablet 00:00: mouth in [place] [address] the [facility] morning [place] and 1 tablet in the evening. For restless leg syndrome pramipexole 2-0 Yes [id number] .25mg Take 1 [facility] 0.25 mg 7-15 tablet by [facility] of tablet 00:00: mouth in [place] [address] the [facility] morning [place] and 1 tablet in the evening. For restless leg syndrome pramipexole 2022-0 Yes [id number] .25mg Take 1 [facility] 0.25 mg 7-15 tablet by [facility] of tablet 00:00: mouth in [place] [address] the [facility] morning [place] and 1 tablet in the evening. For restless leg syndrome pramipexole 2022-0 Yes [id number] .25mg Take 1 [facility] 0.25 mg 7-15 tablet by [facility] of tablet 00:00: mouth in [place] [address] the [facility] morning [place] and 1 tablet in the evening. For restless leg syndrome pramipexole 2022-0 Yes [id number] .25mg Take 1 [facility] 0.25 mg 7-15 tablet by [facility] of tablet 00:00: mouth in [address] morning [place] and 1 tablet in the evening. For restless leg syndrome pramipexole 2022-0 Yes [id number] .25mg Take 1 [facility] 0.25 mg 7-15 tablet by [facility] of tablet 00:00: mouth in [place] [address] the Medical morning Branch and 1 tablet in the evening. For restless leg syndrome pramipexole 2-0 Yes [id number] .25mg Take 1 [facility] 0.25 mg 7-15 tablet by [facility] of tablet 00:00: mouth in [place] 00 the Medical morning Branch and 1 tablet in the evening. For restless leg syndrome pramipexole 2-0 Yes [id number] .25mg Take 1 [facility] 0.25 mg 7-15 tablet by [facility] of tablet 00:00: mouth in [place] [address] the Medical morning Branch and 1 tablet in the evening. For restless leg syndrome pramipexole 2-0 Yes [id number] .25mg Take 1 [facility] 0.25 mg 7-15 tablet by [facility] of tablet 00:00: mouth in [place] [address] the [facility] morning [place] and 1 tablet in the evening. For restless leg syndrome pramipexole 2-0 Yes [id number] .25mg Take 1 [facility] 0.25 mg 7-15 tablet by [facility] of tablet 00:00: mouth in [place] [address] the [facility] morning [place] and 1 tablet in the evening. For restless leg syndrome pramipexole 2-0 Yes [id number] .25mg Take 1 [facility] 0.25 mg 7-15 tablet by [facility] of tablet 00:00: mouth in [place] [address] the [facility] morning [place] and 1 tablet in the evening. For restless leg syndrome pramipexole 2-0 Yes [id number] .25mg Take 1 [facility] 0.25 mg 7-15 tablet by [facility] of tablet 00:00: mouth in [place] [address] the [facility] morning [place] and 1 tablet in the evening. For restless leg syndrome pramipexole 2-0 Yes [id number] .25mg Take 1 [facility] 0.25 mg 7-15 tablet by [facility] of tablet 00:00: mouth in [place] [address] the [facility] morning [place] and 1 tablet in the evening. For restless leg syndrome pramipexole 2-0 Yes [id number] .25mg Take 1 [facility] 0.25 mg 7-15 tablet by [facility] of tablet 00:00: mouth in [address] morning [place] and 1 tablet in the evening. For restless leg syndrome pramipexole 2022-0 Yes [id number] .25mg Take 1 [facility] 0.25 mg 7-15 tablet by [facility] of tablet 00:00: mouth in [place] 00 the Medical morning Branch and 1 tablet in the evening. For restless leg syndrome pramipexole 2022-0 Yes [id number] .25mg Take 1 [facility] 0.25 mg 7-15 tablet by [facility] of tablet 00:00: mouth in [place] 00 the Medical morning Branch and 1 tablet in the evening. For restless leg syndrome pramipexole 2022-0 Yes [id number] .25mg Take 1 [facility] 0.25 mg 7-15 tablet by [facility] of tablet 00:00: mouth in [place] [address] the Medical morning Branch and 1 tablet in the evening. For restless leg syndrome pramipexole 2-0 Yes [id number] .25mg Take 1 [facility] 0.25 mg 7-15 tablet by [facility] of tablet 00:00: mouth in [place] [address] the [facility] morning [place] and 1 tablet in the evening. For restless leg syndrome pramipexole 2-0 Yes [id number] .25mg Take 1 [facility] 0.25 mg 7-15 tablet by [facility] of tablet 00:00: mouth in [place] [address] the [facility] morning [place] and 1 tablet in the evening. For restless leg syndrome pramipexole 2-0 Yes [id number] .25mg Take 1 [facility] 0.25 mg 7-15 tablet by [facility] of tablet 00:00: mouth in [place] [address] the [facility] morning [place] and 1 tablet in the evening. For restless leg syndrome pramipexole 2-0 Yes [id number] .25mg Take 1 [facility] 0.25 mg 7-15 tablet by [facility] of tablet 00:00: mouth in [place] [address] the [facility] morning [place] and 1 tablet in the evening. For restless leg syndrome pramipexole 2022-0 Yes [id number] .25mg Take 1 [facility] 0.25 mg 7-15 tablet by [facility] of tablet 00:00: mouth in [place] [address] the [facility] morning [place] and 1 tablet in the evening. For restless leg syndrome pramipexole 2-0 Yes [id number] .25mg Take 1 [facility] 0.25 mg 7-15 tablet by [facility] of tablet 00:00: mouth in [place] [address] the [facility] morning [place] and 1 tablet in the evening. For restless leg syndrome pramipexole 2022-0 Yes [id number] .25mg Take 1 [facility] 0.25 mg 7-15 tablet by [facility] of tablet 00:00: mouth in [place] [address] the Medical morning Branch and 1 tablet in the evening. For restless leg syndrome pramipexole 2022-0 Yes [id number] .25mg Take 1 [facility] 0.25 mg 7-15 tablet by [facility] of tablet 00:00: mouth in [place] 00 the Medical morning Branch and 1 tablet in the evening. For restless leg syndrome pramipexole 2022-0 Yes [id number] .25mg Take 1 [facility] 0.25 mg 7-15 tablet by [facility] of tablet 00:00: mouth in [place] [address] the [facility] morning Branch and 1 tablet in the evening. For restless leg syndrome pramipexole 2-0 Yes [id number] .25mg Take 1 [facility] 0.25 mg 7-15 tablet by [facility] of tablet 00:00: mouth in [place] [address] the [facility] morning [place] and 1 tablet in the evening. For restless leg syndrome pramipexole 2-0 Yes [id number] .25mg Take 1 [facility] 0.25 mg 7-15 tablet by [facility] of tablet 00:00: mouth in [place] [address] the [facility] morning [place] and 1 tablet in the evening. For restless leg syndrome pramipexole 2-0 Yes [id number] .25mg Take 1 [facility] 0.25 mg 7-15 tablet by [facility] of tablet 00:00: mouth in [place] [address] the [facility] morning [place] and 1 tablet in the evening. For restless leg syndrome pramipexole 2-0 Yes [id number] .25mg Take 1 [facility] 0.25 mg 7-15 tablet by [facility] of tablet 00:00: mouth in [place] [address] the [facility] morning [place] and 1 tablet in the evening. For restless leg syndrome pramipexole 2022-0 Yes [id number] .25mg Take 1 [facility] 0.25 mg 7-15 tablet by [facility] of tablet 00:00: mouth in [address] morning [place] and 1 tablet in the evening. For restless leg syndrome pramipexole 2022-0 Yes [id number] .25mg Take 1 [facility] 0.25 mg 7-15 tablet by [facility] of tablet 00:00: mouth in [address] morning [place] and 1 tablet in the evening. For restless leg syndrome pramipexole 2022-0 Yes [id number] .25mg Take 1 [facility] 0.25 mg 7-15 tablet by [facility] of tablet 00:00: mouth in [place] [address] the [facility] morning Branch and 1 tablet in the evening. For restless leg syndrome pramipexole 2-0 Yes [id number] .25mg Take 1 [facility] 0.25 mg 7-15 tablet by [facility] of tablet 00:00: mouth in [place] [address] the [facility] morning Branch and 1 tablet in the evening. For restless leg syndrome pramipexole 2022-0 Yes [id number] .25mg Take 1 [facility] 0.25 mg 7-15 tablet by [facility] of tablet 00:00: mouth in [place] [address] the [facility] morning [place] and 1 tablet in the evening. For restless leg syndrome pramipexole 2-0 Yes [id number] .25mg Take 1 [facility] 0.25 mg 7-15 tablet by [facility] of tablet 00:00: mouth in [place] [address] the [facility] morning [place] and 1 tablet in the evening. For restless leg syndrome pramipexole 2-0 Yes [id number] .25mg Take 1 [facility] 0.25 mg 7-15 tablet by [facility] of tablet 00:00: mouth in [place] [address] the [facility] morning [place] and 1 tablet in the evening. For restless leg syndrome pramipexole 2-0 Yes [id number] .25mg Take 1 [facility] 0.25 mg 7-15 tablet by [facility] of tablet 00:00: mouth in [place] [address] the [facility] morning [place] and 1 tablet in the evening. For restless leg syndrome pramipexole 2-0 Yes [id number] .25mg Take 1 [facility] 0.25 mg 7-15 tablet by [facility] of tablet 00:00: mouth in [address] morning [place] and 1 tablet in the evening. For restless leg syndrome pramipexole 2-0 Yes [id number] .25mg Take 1 [facility] 0.25 mg 7-15 tablet by [facility] of tablet 00:00: mouth in [address] and 1 tablet in the evening. For restless leg syndrome pramipexole 2022-0 Yes [id number] .25mg Take 1 [facility] 0.25 mg 7-15 tablet by [facility] of tablet 00:00: mouth in [address] morning [place] and 1 tablet in the evening. For restless leg syndrome pramipexole 2022-0 Yes [id number] .25mg Take 1 [facility] 0.25 mg 7-15 tablet by [facility] of tablet 00:00: mouth in [place] [address] the Medical morning Branch and 1 tablet in the evening. For restless leg syndrome pramipexole 2022-0 Yes [id number] .25mg Take 1 [facility] 0.25 mg 7-15 tablet by [facility] of tablet 00:00: mouth in [place] [address] the Medical morning Branch and 1 tablet in the evening. For restless leg syndrome pramipexole 2022-0 Yes [id number] .25mg Take 1 [facility] 0.25 mg 7-15 tablet by [facility] of tablet 00:00: mouth in [place] [address] the [facility] morning [place] and 1 tablet in the evening. For restless leg syndrome pramipexole 2-0 Yes [id number] .25mg Take 1 [facility] 0.25 mg 7-15 tablet by [facility] of tablet 00:00: mouth in [place] [address] the [facility] morning [place] and 1 tablet in the evening. For restless leg syndrome pramipexole 2-0 Yes [id number] .25mg Take 1 [facility] 0.25 mg 7-15 tablet by [facility] of tablet 00:00: mouth in [place] [address] the [facility] morning [place] and 1 tablet in the evening. For restless leg syndrome pramipexole 2-0 Yes [id number] .25mg Take 1 [facility] 0.25 mg 7-15 tablet by [facility] of tablet 00:00: mouth in [place] [address] the [facility] morning [place] and 1 tablet in the evening. For restless leg syndrome pramipexole 2022-0 Yes [id number] .25mg Take 1 [facility] 0.25 mg 7-15 tablet by [facility] of tablet 00:00: mouth in [address] morning [place] and 1 tablet in the evening. For restless leg syndrome pramipexole 2022-0 Yes [id number] .25mg Take 1 [facility] 0.25 mg 7-15 tablet by [facility] of tablet 00:00: mouth in [address] morning [place] and 1 tablet in the evening. For restless leg syndrome pramipexole 2022-0 Yes [id number] .25mg Take 1 [facility] 0.25 mg 7-15 tablet by [facility] of tablet 00:00: mouth in [address] morning [place] and 1 tablet in the evening. For restless leg syndrome pramipexole 2022-0 Yes [id number] .25mg Take 1 [facility] 0.25 mg 7-15 tablet by [facility]y of tablet 00:00: mouth in [place] [address] the [facility] morning [place] and 1 tablet in the evening. For restless leg syndrome pramipexole 2022-0 Yes [id number] .25mg Take 1 [facility] 0.25 mg 7-15 tablet by [facility] of tablet 00:00: mouth in [place] [address] the [facility] morning Branch and 1 tablet in the evening. For restless leg syndrome pramipexole 2022-0 Yes [id number] .25mg Take 1 [facility] 0.25 mg 7-15 tablet by [facility] of tablet 00:00: mouth in [place] [address] the [facility] morning [place] and 1 tablet in the evening. For restless leg syndrome pramipexole 2022-0 Yes [id number] .25mg Take 1 [facility] 0.25 mg 7-15 tablet by [facility] of tablet 00:00: mouth in [place] [address] the [facility] morning [place] and 1 tablet in the evening. For restless leg syndrome pramipexole 2022-0 Yes [id number] .25mg Take 1 [facility] 0.25 mg 7-15 tablet by ity of tablet 00:00: mouth in [place] [address] the [facility] morning [place] and 1 tablet in the evening. For restless leg syndrome pramipexole 2022-0 Yes [id number] .25mg Take 1 [facility] 0.25 mg 7-15 tablet by ity of tablet 00:00: mouth in [place] [address] the [facility] morning [place] and 1 tablet in the evening. For restless leg syndrome pramipexole 2022-0 Yes [id number] .25mg Take 1 [facility] 0.25 mg 7-15 tablet by ity of tablet 00:00: mouth in [place] [address] the [facility] morning [place] and 1 tablet in the evening. For restless leg syndrome pramipexole 2022-0 Yes [id number] .25mg Take 1 [facility] 0.25 mg 7-15 tablet by ity of tablet 00:00: mouth in [place] [address] the [facility] morning [place] and 1 tablet in the evening. For restless leg syndrome pramipexole 2022-0 Yes [id number] .25mg Take 1 [facility] 0.25 mg 7-15 tablet by ity of tablet 00:00: mouth in [place] 00 the Medical morning Branch and 1 tablet in the evening. For restless leg syndrome pramipexole 2022-0 Yes [id number] .25mg Take 1 [facility] 0.25 mg 7-15 tablet by ity of tablet 00:00: mouth in [place] [address] the Medical morning Branch and 1 tablet in the evening. For restless leg syndrome pramipexole 2022-0 Yes [id number] .25mg Take 1 [facility] 0.25 mg 7-15 tablet by ity of tablet 00:00: mouth in [place] [address] the [facility] morning Branch and 1 tablet in the evening. For restless leg syndrome pramipexole 2022-0 Yes [id number] .25mg Take 1 [facility] 0.25 mg 7-15 tablet by ity of tablet 00:00: mouth in [place] [address] the [facility] morning Branch and 1 tablet in the evening. For restless leg syndrome pramipexole 2022-0 Yes [id number] .25mg Take 1 [facility] 0.25 mg 7-15 tablet by ity of tablet 00:00: mouth in [place] [address] the [facility] morning [place] and 1 tablet in the evening. For restless leg syndrome pramipexole 2022-0 Yes [id number] .25mg Take 1 [facility] 0.25 mg 7-15 tablet by ity of tablet 00:00: mouth in [place] [address] the [facility] morning [place] and 1 tablet in the evening. For restless leg syndrome pramipexole 2022-0 Yes [id number] .25mg Take 1 [facility] 0.25 mg 7-15 tablet by ity of tablet 00:00: mouth in [place] [address] the [facility] morning [place] and 1 tablet in the evening. For restless leg syndrome pramipexole 2022-0 Yes [id number] .25mg Take 1 [facility] 0.25 mg 7-15 tablet by ity of tablet 00:00: mouth in [place] [address] the [facility] morning Branch and 1 tablet in the evening. For restless leg syndrome pramipexole 2022-0 Yes [id number] .25mg Take 1 [facility] 0.25 mg 7-15 tablet by ity of tablet 00:00: mouth in [place] [address] the [facility] morning [place] and 1 tablet in the evening. For restless leg syndrome pramipexole 2022-0 Yes [id number] .25mg Take 1 [facility] 0.25 mg 7-15 tablet by ity of tablet 00:00: mouth in [place] 00 the Medical morning Branch and 1 tablet in the evening. For restless leg syndrome pramipexole 2022-0 Yes [id number] .25mg Take 1 [facility] 0.25 mg 7-15 tablet by ity of tablet 00:00: mouth in [place] [address] the [facility] morning Branch and 1 tablet in the evening. For restless leg syndrome pramipexole 2022-0 Yes [id number] .25mg Take 1 [facility] 0.25 mg 7-15 tablet by ity of tablet 00:00: mouth in [place] [address] the [facility] and 1 tablet in the evening. For restless leg syndrome pramipexole 2022-0 Yes [id number] .25mg Take 1 [facility] 0.25 mg 7-15 tablet by ity of tablet 00:00: mouth in [place] [address] the [facility] and 1 tablet in the evening. For restless leg syndrome pramipexole 2022-0 Yes [id number] .25mg Take 1 [facility] 0.25 mg 7-15 tablet by ity of tablet 00:00: mouth in [address] and 1 tablet in the evening. For restless leg syndrome pramipexole 2022-0 Yes [id number] .25mg Take 1 [facility] 0.25 mg 7-15 tablet by ity of tablet 00:00: mouth in [place] [address] the [facility] morning [place] and 1 tablet in the evening. For restless leg syndrome pramipexole 2022-0 Yes [id number] .25mg Take 1 [facility] 0.25 mg 7-15 tablet by ity of tablet 00:00: mouth in [place] [address] the [facility] and 1 tablet in the evening. For restless leg syndrome pramipexole 2022-0 Yes [id number] .25mg Take 1 [facility] 0.25 mg 7-15 tablet by ity of tablet 00:00: mouth in [address] and 1 tablet in the evening. For restless leg syndrome pramipexole 2022-0 Yes [id number] .25mg Take 1 [facility] 0.25 mg 7-15 tablet by ity of tablet 00:00: mouth in [address] and 1 tablet in the evening. For restless leg syndrome pramipexole 2022-0 Yes [id number] .25mg Take 1 [facility] 0.25 mg 7-15 tablet by ity of tablet 00:00: mouth in [address] [place] and 1 tablet in the evening. For restless leg syndrome pramipexole 2022-0 Yes [id number] .25mg Take 1 [facility] 0.25 mg 7-15 tablet by ity of tablet 00:00: mouth in [place] [address] the [facility] morning [place] and 1 tablet in the evening. For restless leg syndrome pramipexole 2022-0 Yes [id number] .25mg Take 1 [facility] 0.25 mg 7-15 tablet by ity of tablet 00:00: mouth in [address] and 1 tablet in the evening. For restless leg syndrome pramipexole 2022-0 Yes [id number] .25mg Take 1 [facility] 0.25 mg 7-15 tablet by ity of tablet 00:00: mouth in [address] and 1 tablet in the evening. For restless leg syndrome pramipexole 2022-0 Yes [id number] .25mg Take 1 [facility] 0.25 mg 7-15 tablet by ity of tablet 00:00: mouth in [address] and 1 tablet in the evening. For restless leg syndrome pramipexole 2022-0 Yes [id number] .25mg Take 1 [facility] 0.25 mg 7-15 tablet by ity of tablet 00:00: mouth in [address] and 1 tablet in the evening. For restless leg syndrome pramipexole 2022-0 Yes [id number] .25mg Take 1 [facility] 0.25 mg 7-15 tablet by ity of tablet 00:00: mouth in [address] and 1 tablet in the evening. For restless leg syndrome pramipexole 2022-0 Yes [id number] .25mg Take 1 [facility] 0.25 mg 7-15 tablet by ity of tablet 00:00: mouth in [address] morning [place] and 1 tablet in the evening. For restless leg syndrome pramipexole 2022-0 Yes [id number] .25mg Take 1 [facility] 0.25 mg 7-15 tablet by ity of tablet 00:00: mouth in [address] and 1 tablet in the evening. For restless leg syndrome pramipexole 2022-0 Yes [id number] .25mg Take 1 [facility] 0.25 mg 7-15 tablet by ity of tablet 00:00: mouth in [address] morning [place] and 1 tablet in the evening. For restless leg syndrome pramipexole 2022-0 Yes [id number] .25mg Take 1 [facility] 0.25 mg 7-15 tablet by ity of tablet 00:00: mouth in [place] [address] the [facility] morning [place] and 1 tablet in the evening. For restless leg syndrome pramipexole 2022-0 Yes [id number] .25mg Take 1 [facility] 0.25 mg 7-15 tablet by ity of tablet 00:00: mouth in [address] morning [place] and 1 tablet in the evening. For restless leg syndrome pramipexole 2022-0 Yes [id number] .25mg Take 1 [facility] 0.25 mg 7-15 tablet by ity of tablet 00:00: mouth in [address] and 1 tablet in the evening. For restless leg syndrome pramipexole 2022-0 Yes [id number] .25mg Take 1 [facility] 0.25 mg 7-15 tablet by ity of tablet 00:00: mouth in [address] and 1 tablet in the evening. For restless leg syndrome pramipexole 2022-0 Yes [id number] .25mg Take 1 [facility] 0.25 mg 7-15 tablet by ity of tablet 00:00: mouth in [address] and 1 tablet in the evening. For restless leg syndrome pramipexole 2022-0 Yes [id number] .25mg Take 1 [facility] 0.25 mg 7-15 tablet by ity of tablet 00:00: mouth in [address] morning [place] and 1 tablet in the evening. For restless leg syndrome pramipexole 2022-0 Yes [id number] .25mg Take 1 [facility] 0.25 mg 7-15 tablet by ity of tablet 00:00: mouth in [address] morning [place] and 1 tablet in the evening. For restless leg syndrome pramipexole 2022-0 Yes [id number] .25mg Take 1 [facility] 0.25 mg 7-15 tablet by ity of tablet 00:00: mouth in [address] morning [place] and 1 tablet in the evening. For restless leg syndrome pramipexole 2022-0 Yes [id number] .25mg Take 1 [facility] 0.25 mg 7-15 tablet by ity of tablet 00:00: mouth in [place] [address] the [facility] morning [place] and 1 tablet in the evening. For restless leg syndrome pramipexole 2022-0 Yes [id number] .25mg Take 1 [facility] 0.25 mg 7-15 tablet by ity of tablet 00:00: mouth in [place] [address] the [facility] morning [place] and 1 tablet in the evening. For restless leg syndrome pramipexole 2022-0 Yes [id number] .25mg Take 1 [facility] 0.25 mg 7-15 tablet by ity of tablet 00:00: mouth in [place] [address] the [facility] morning [place] and 1 tablet in the evening. For restless leg syndrome pramipexole 2022-0 Yes [id number] .25mg Take 1 [facility] 0.25 mg 7-15 tablet by ity of tablet 00:00: mouth in [address] morning [place] and 1 tablet in the evening. For restless leg syndrome pramipexole 2022-0 Yes [id number] .25mg Take 1 [facility] 0.25 mg 7-15 tablet by ity of tablet 00:00: mouth in [address] and 1 tablet in the evening. For restless leg syndrome pramipexole 2022-0 Yes [id number] .25mg Take 1 [facility] 0.25 mg 7-15 tablet by ity of tablet 00:00: mouth in [address] and 1 tablet in the evening. For restless leg syndrome pramipexole 2022-0 Yes [id number] .25mg Take 1 [facility] 0.25 mg 7-15 tablet by ity of tablet 00:00: mouth in [address] morning [place] and 1 tablet in the evening. For restless leg syndrome pramipexole 2022-0 Yes [id number] .25mg Take 1 [facility] 0.25 mg 7-15 tablet by ity of tablet 00:00: mouth in [address] morning [place] and 1 tablet in the evening. For restless leg syndrome pramipexole 2022-0 Yes [id number] .25mg Take 1 [facility] 0.25 mg 7-15 tablet by ity of tablet 00:00: mouth in [address] morning [place] and 1 tablet in the evening. For restless leg syndrome pramipexole 2022-0 Yes [id number] .25mg Take 1 [facility] 0.25 mg 7-15 tablet by ity of tablet 00:00: mouth in [place] [address] the [facility] morning [place] and 1 tablet in the evening. For restless leg syndrome pramipexole 2022-0 Yes [id number] .25mg Take 1 [facility] 0.25 mg 7-15 tablet by ity of tablet 00:00: mouth in [place] [address] the [facility] morning [place] and 1 tablet in the evening. For restless leg syndrome pramipexole 2022-0 Yes [id number] .25mg Take 1 [facility] 0.25 mg 7-15 tablet by ity of tablet 00:00: mouth in [place] [address] the [facility] morning [place] and 1 tablet in the evening. For restless leg syndrome pramipexole 2022-0 Yes [id number] .25mg Take 1 [facility] 0.25 mg 7-15 tablet by ity of tablet 00:00: mouth in [address] morning [place] and 1 tablet in the evening. For restless leg syndrome pramipexole 2022-0 Yes [id number] .25mg Take 1 [facility] 0.25 mg 7-15 tablet by ity of tablet 00:00: mouth in [address] and 1 tablet in the evening. For restless leg syndrome pramipexole 2022-0 Yes [id number] .25mg Take 1 [facility] 0.25 mg 7-15 tablet by ity of tablet 00:00: mouth in [address] and 1 tablet in the evening. For restless leg syndrome pramipexole 2022-0 Yes [id number] .25mg Take 1 [facility] 0.25 mg 7-15 tablet by ity of tablet 00:00: mouth in [address] morning [place] and 1 tablet in the evening. For restless leg syndrome pramipexole 2022-0 Yes [id number] .25mg Take 1 [facility] 0.25 mg 7-15 tablet by ity of tablet 00:00: mouth in [address] morning [place] and 1 tablet in the evening. For restless leg syndrome pramipexole 2022-0 Yes [id number] .25mg Take 1 [facility] 0.25 mg 7-15 tablet by ity of tablet 00:00: mouth in [address] morning [place] and 1 tablet in the evening. For restless leg syndrome pramipexole 2022-0 Yes [id number] .25mg Take 1 [facility] 0.25 mg 7-15 tablet by ity of tablet 00:00: mouth in [place] 00 the Medical morning Branch and 1 tablet in the evening. For restless leg syndrome pramipexole 2-0 Yes [id number] .25mg Take 1 [facility] 0.25 mg 7-15 tablet by ity of tablet 00:00: mouth in [place] 00 the Medical morning Branch and 1 tablet in the evening. For restless leg syndrome pramipexole 2-0 Yes [id number] .25mg Take 1 [facility] 0.25 mg 7-15 tablet by ity of tablet 00:00: mouth in [place] 00 the Medical morning Branch and 1 tablet in the evening. For restless leg syndrome pramipexole 2-0 Yes [id number] .25mg Take 1 [facility] 0.25 mg 7-15 tablet by ity of tablet 00:00: mouth in [place] [address] the [facility] morning [place] and 1 tablet in the evening. For restless leg syndrome pramipexole 2-0 Yes [id number] .25mg Take 1 [facility] 0.25 mg 7-15 tablet by ity of tablet 00:00: mouth in [place] [address] the [facility] morning [place] and 1 tablet in the evening. For restless leg syndrome pramipexole 2021-0 Yes [id number] .25mg Take 1 [facility] 0.25 mg 7-15 tablet by ity of tablet 00:00: mouth in [place] 00 the [facility] morning [place] and 1 tablet in the evening. For restless leg syndrome pramipexole 2-0 Yes [id number] .25mg Take 1 [facility] 0.25 mg 7-15 tablet by ity of tablet 00:00: mouth in [place] [address] the [facility] morning Branch and 1 tablet in the evening. For restless leg syndrome pramipexole 2-0 3- No [id number] .25mg Take 1 [facility] 0.25 mg 7-15 - tablet by ity of tablet 00:00: 00:00 mouth in [place] 00 :00 the [facility] morning Branch and 1 tablet in the evening. For restless leg syndrome pramipexole 2-0 2023- No [id number] .25mg Take 1 [facility] 0.25 mg 7-15 06- tablet by ity of tablet 00:00: 00:00 mouth in [place] 00 :00 the [facility] morning [place] and 1 tablet in the evening. For restless leg syndrome promethazin 0 2021- No [id number] TAKE 1 [facility] e 50 mg 7-04 08-30 TABLET BY ity of tablet 00:00: 00:00 MOUTH [place] 00 :00 EVERY 6 Medical HOURS Branch NEEDED FOR NAUSEA AND VOMITING promethazin 0 2021- No [id number] TAKE 1 [facility] e 50 mg 7-04 08-30 TABLET BY ity of tablet 00:00: 00:00 MOUTH [place] 00 :00 EVERY 6 Medical HOURS Branch NEEDED FOR NAUSEA AND VOMITING furosemide 0 Yes 10mg Take 10 mg U nivers (LASIX 6-27 by mouth ity of ORAL) 09:22: daily. As [place] [address] needed Medical Branch levetiracet Yes 500mg Take 500 U nivers am (KEPPRA 6-27 mg by ity of ORAL) 09:22: mouth 2 [place] [address] (two) Medical times Branch daily. midodrine 5 Yes 5mg Take 5 mg U nivers mg tablet 6-27 by mouth ity of 09:22: daily. As [place] [address] needed Medical Branch furosemide Yes 10mg Take 10 mg U nivers (LASIX 6-27 by mouth ity of ORAL) 09:22: daily. As [place] [address] needed Medical Branch levetiracet Yes 500mg Take 500 U nivers am (KEPPRA 6-27 mg by ity of ORAL) 09:22: mouth 2 [place] [address] (two) Medical times Branch daily. midodrine 5 0 Yes 5mg Take 5 mg U nivers mg tablet 6-27 by mouth ity of 09:22: daily. As [place] [address] needed Medical Branch FLUTICASONE 0 Yes [id number] SHAKE U nivers PROPIONATE 6-17 LIQUID AND ity of 50 00:00: USE 1 [place] mcg/actuati 00 SPRAY IN Medi janet on nasal EACH Branch spray NOSTRIL TWICE DAILY FLUTICASONE 2021-0 Yes [id number] SHAKE U nivers PROPIONATE 6-17 LIQUID AND ity of 50 00:00: USE 1 [place] mcg/actuati 00 SPRAY IN Medi janet on nasal EACH Branch spray NOSTRIL TWICE DAILY FLUTICASONE 2021-0 Yes [id number] SHAKE U nivers PROPIONATE 6-17 LIQUID AND ity of 50 00:00: USE 1 [place] mcg/actuati 00 SPRAY IN [facility] on nasal EACH Branch spray NOSTRIL TWICE DAILY FLUTICASONE Yes [id number] SHAKE U nivers PROPIONATE 6-17 LIQUID AND ity of 50 00:00: USE 1 [place] mcg/actuati 00 SPRAY IN [facility] on nasal EACH Branch spray NOSTRIL TWICE DAILY FLUTICASONE Yes [id number] SHAKE U nivers PROPIONATE 6-17 LIQUID AND ity of 50 00:00: USE 1 [place] mcg/actuati 00 SPRAY IN [facility] on nasal EACH Branch spray NOSTRIL TWICE DAILY FLUTICASONE Yes [id number] SHAKE U nivers PROPIONATE 6-17 LIQUID AND ity of 50 00:00: USE 1 [place] mcg/actuati 00 SPRAY IN [facility] on nasal EACH Branch spray NOSTRIL TWICE DAILY FLUTICASONE Yes [id number] SHAKE U nivers PROPIONATE 6-17 LIQUID AND ity of 50 00:00: USE 1 [place] mcg/actuati 00 SPRAY IN [facility] on nasal EACH Branch spray NOSTRIL TWICE DAILY FLUTICASONE Yes [id number] SHAKE U nivers PROPIONATE 6-17 LIQUID AND ity of 50 00:00: USE 1 [place] mcg/actuati 00 SPRAY IN [facility] on nasal EACH Branch spray NOSTRIL TWICE DAILY FLUTICASONE Yes [id number] SHAKE U nivers PROPIONATE 6-17 LIQUID AND ity of 50 00:00: USE 1 [place] mcg/actuati 00 SPRAY IN [facility] on nasal EACH Branch spray NOSTRIL TWICE DAILY FLUTICASONE 0 Yes [id number] SHAKE U nivers PROPIONATE 6-17 LIQUID AND ity of 50 00:00: USE 1 [place] mcg/actuati 00 SPRAY IN [facility] on nasal EACH Branch spray NOSTRIL TWICE DAILY FLUTICASONE 0 Yes [id number] SHAKE U nivers PROPIONATE 6-17 LIQUID AND ity of 50 00:00: USE 1 [place] mcg/actuati 00 SPRAY IN [facility] on nasal EACH Branch spray NOSTRIL TWICE DAILY FLUTICASONE 0 Yes [id number] SHAKE U nivers PROPIONATE 6-17 LIQUID AND ity of 50 00:00: USE 1 [place] mcg/actuati 00 SPRAY IN [facility] on nasal EACH Branch spray NOSTRIL TWICE DAILY FLUTICASONE Yes [id number] SHAKE U nivers PROPIONATE 6-17 LIQUID AND ity of 50 00:00: USE 1 [place] mcg/actuati 00 SPRAY IN [facility] on nasal EACH Branch spray NOSTRIL TWICE DAILY FLUTICASONE 0 Yes [id number] SHAKE U nivers PROPIONATE 6-17 LIQUID AND ity of 50 00:00: USE 1 [place] mcg/actuati 00 SPRAY IN [facility] on nasal EACH Branch spray NOSTRIL TWICE DAILY FLUTICASONE Yes [id number] SHAKE U nivers PROPIONATE 6-17 LIQUID AND ity of 50 00:00: USE 1 [place] mcg/actuati 00 SPRAY IN [facility] on nasal EACH Branch spray NOSTRIL TWICE DAILY FLUTICASONE Yes [id number] SHAKE U nivers PROPIONATE 6-17 LIQUID AND ity of 50 00:00: USE 1 [place] mcg/actuati 00 SPRAY IN [facility] on nasal EACH Branch spray NOSTRIL TWICE DAILY FLUTICASONE Yes [id number] SHAKE U nivers PROPIONATE 6-17 LIQUID AND ity of 50 00:00: USE 1 [place] mcg/actuati 00 SPRAY IN [facility] on nasal EACH Branch spray NOSTRIL TWICE DAILY FLUTICASONE Yes [id number] SHAKE U nivers PROPIONATE 6-17 LIQUID AND ity of 50 00:00: USE 1 [place] mcg/actuati 00 SPRAY IN [facility] on nasal EACH Branch spray NOSTRIL TWICE DAILY FLUTICASONE 0 Yes [id number] SHAKE U nivers PROPIONATE 6-17 LIQUID AND ity of 50 00:00: USE 1 [place] mcg/actuati 00 SPRAY IN [facility] on nasal EACH Branch spray NOSTRIL TWICE DAILY FLUTICASONE 0 Yes [id number] SHAKE U nivers PROPIONATE 6-17 LIQUID AND ity of 50 00:00: USE 1 [place] mcg/actuati 00 SPRAY IN [facility] on nasal EACH Branch spray NOSTRIL TWICE DAILY FLUTICASONE 0 Yes [id number] SHAKE U nivers PROPIONATE 6-17 LIQUID AND ity of 50 00:00: USE 1 [place] mcg/actuati 00 SPRAY IN [facility] on nasal EACH Branch spray NOSTRIL TWICE DAILY FLUTICASONE Yes [id number] SHAKE U nivers PROPIONATE 6-17 LIQUID AND ity of 50 00:00: USE 1 [place] mcg/actuati 00 SPRAY IN [facility] on nasal EACH Branch spray NOSTRIL TWICE DAILY FLUTICASONE 0 Yes [id number] SHAKE U nivers PROPIONATE 6-17 LIQUID AND ity of 50 00:00: USE 1 [place] mcg/actuati 00 SPRAY IN [facility] on nasal EACH Branch spray NOSTRIL TWICE DAILY FLUTICASONE Yes [id number] SHAKE U nivers PROPIONATE 6-17 LIQUID AND ity of 50 00:00: USE 1 [place] mcg/actuati 00 SPRAY IN [facility] on nasal EACH Branch spray NOSTRIL TWICE DAILY FLUTICASONE Yes [id number] SHAKE U nivers PROPIONATE 6-17 LIQUID AND ity of 50 00:00: USE 1 [place] mcg/actuati 00 SPRAY IN [facility] on nasal EACH Branch spray NOSTRIL TWICE DAILY FLUTICASONE 0 Yes [id number] SHAKE U nivers PROPIONATE 6-17 LIQUID AND ity of 50 00:00: USE 1 [place] mcg/actuati 00 SPRAY IN [facility] on nasal EACH Branch spray NOSTRIL TWICE DAILY FLUTICASONE 0 Yes [id number] SHAKE U nivers PROPIONATE 6-17 LIQUID AND ity of 50 00:00: USE 1 [place] mcg/actuati 00 SPRAY IN [facility] on nasal EACH Branch spray NOSTRIL TWICE DAILY FLUTICASONE 0 Yes [id number] SHAKE U nivers PROPIONATE 6-17 LIQUID AND ity of 50 00:00: USE 1 [place] mcg/actuati 00 SPRAY IN [facility] on nasal EACH Branch spray NOSTRIL TWICE DAILY FLUTICASONE 0 Yes [id number] SHAKE U nivers PROPIONATE 6-17 LIQUID AND ity of 50 00:00: USE 1 [place] mcg/actuati 00 SPRAY IN [facility] on nasal EACH Branch spray NOSTRIL TWICE DAILY FLUTICASONE 0 Yes [id number] SHAKE U nivers PROPIONATE 6-17 LIQUID AND ity of 50 00:00: USE 1 [place] mcg/actuati 00 SPRAY IN [facility] on nasal EACH Branch spray NOSTRIL TWICE DAILY FLUTICASONE No [id number] SHAKE Univers PROPIONATE 6-17 10-12 LIQUID AND it y of 50 00:00: 00:00 USE 1 [place] mcg/actuati 00 :00 SPRAY IN [facility] on nasal EACH Branch spray NOSTRIL TWICE DAILY FLUTICASONE 2021- No [id number] SHAKE Univers PROPIONATE 6-17 10-12 LIQUID AND it y of 50 00:00: 00:00 USE 1 [place] mcg/actuati 00 :00 SPRAY IN [facility] on nasal EACH Branch spray NOSTRIL TWICE DAILY FLUTICASONE 2021- No [id number] SHAKE Univers PROPIONATE 6-17 10-12 LIQUID AND it y of 50 00:00: 00:00 USE 1 [place] mcg/actuati 00 :00 SPRAY IN [facility] on nasal EACH Branch spray NOSTRIL TWICE DAILY FLUTICASONE 2021- No [id number] SHAKE Univers PROPIONATE 6-17 10-12 LIQUID AND it y of 50 00:00: 00:00 USE 1 [place] mcg/actuati 00 :00 SPRAY IN [facility] on nasal EACH Branch spray NOSTRIL TWICE DAILY FLUTICASONE 2021- No [id number] SHAKE Univers PROPIONATE 6-17 10-12 LIQUID AND it y of 50 00:00: 00:00 USE 1 [place] mcg/actuati 00 :00 SPRAY IN [facility] on nasal EACH Branch spray NOSTRIL TWICE DAILY FLUTICASONE 2021- No [id number] SHAKE Univers PROPIONATE 6-17 10-12 LIQUID AND it y of 50 00:00: 00:00 USE 1 [place] mcg/actuati 00 :00 SPRAY IN [facility] on nasal EACH Branch spray NOSTRIL TWICE DAILY FLUTICASONE 2021- No [id number] SHAKE Univers PROPIONATE 6-17 10-12 LIQUID AND it y of 50 00:00: 00:00 USE 1 [place] mcg/actuati 00 :00 SPRAY IN [facility] on nasal EACH Branch spray NOSTRIL TWICE DAILY FLUTICASONE 2021- No [id number] SHAKE Univers PROPIONATE 6-17 10-12 LIQUID AND it y of 50 00:00: 00:00 USE 1 [place] mcg/actuati 00 :00 SPRAY IN [facility] on nasal EACH Branch spray NOSTRIL TWICE DAILY FLUTICASONE 2021- No [id number] KAREN Univers PROPIONATE 6-17 10-12 LIQUID AND it y of 50 00:00: 00:00 USE 1 [place] mcg/actuati 00 :00 SPRAY IN Medi janet on nasal EACH Branch spray NOSTRIL TWICE DAILY FLUTICASONE 2021- No [id number] LORENZOKE Univers PROPIONATE 6-17 10-12 LIQUID AND it y of 50 00:00: 00:00 USE 1 [place] mcg/actuati 00 :00 SPRAY IN Medi janet on nasal EACH Branch spray NOSTRIL TWICE DAILY FLUTICASONE 2021- No [id number] LORENZOKE Univers PROPIONATE 6-17 10-12 LIQUID AND it y of 50 00:00: 00:00 USE 1 [place] mcg/actuati 00 :00 SPRAY IN Medi janet on nasal EACH Branch spray NOSTRIL TWICE DAILY nortriptyli Yes [id number] 25mg Take 12.5 [facility]/5 6-16 mL by [facility] mL solution 00:00: mouth [facility] [place] 00 bedtime. [facility] nortriptyli Yes [id number] 25mg Take 12.5 [facility] 10 mg/5 6-16 mL [facility] solution 00:00: [facility] [place] 00 bedtime. [facility] nortriptyli 2021- No [id number] 25mg Take 12.5 [facility] 10 mg/5 6-16 08-31 mL by [facility] mL solution 00:00: 00:00 mouth [place] 00 :00 bedtime. [facility] nortriptyli 2021- No [id number] 25mg Take 12.5 [facility] 10 mg/5 6-16 08-31 mL by [facility] mL solution 00:00: 00:00 mouth [place] 00 :00 bedtime. [facility] nortriptyli 2021- No [id number] 25mg Take 12.5 [facility] 10 mg/5 6-16 08-31 mL by [facility] mL solution 00:00: 00:00 mouth [place] 00 :00 bedtime. [facility] imipramine Yes [id number] 10mg Take 1 U nivers 10 mg 6-02 tablet by [facility] tablet 00:00: mouth at [place] 00 bedtime. [facility] imipramine 2021-0 Yes [id number] 10mg Take 1 [facility] 10 mg 6-02 tablet by [facility] tablet 00:00: mouth at [place] [address] bedtime. [facility] imipramine 2021-0 Yes [id number] 10mg Take 1 [facility] 10 mg 6-02 tablet by [facility] tablet 00:00: mouth at [place] [address] bedtime. [facility] imipramine 2021-0 Yes [id number] 10mg Take 1 [facility] 10 mg 6-02 tablet by [facility] tablet 00:00: mouth at [place] [address] bedtime. [facility] imipramine 0 Yes [id number] 10mg Take 1 [facility] 10 mg 6-02 tablet by [facility] tablet 00:00: mouth at [place] [address] bedtime. [facility] imipramine 0 Yes [id number] 10mg Take 1 [facility] 10 mg 6-02 tablet by [facility] tablet 00:00: mouth at [place] [address] bedtime. [facility] imipramine 2021-0 Yes [id number] 10mg Take 1 [facility] 10 mg 6-02 tablet by [facility] tablet 00:00: mouth at [place] [address] bedtime. [facility] imipramine 0 Yes [id number] 10mg Take 1 [facility] 10 mg 6-02 tablet by [facility] tablet 00:00: mouth at [place] [address] bedtime. [facility] imipramine 2021-0 Yes [id number] 10mg Take 1 [facility] 10 mg 6-02 tablet by [facility] tablet 00:00: mouth at [place] [address] bedtime. [facility] imipramine 2021-0 Yes [id number] 10mg Take 1 [facility] 10 mg 6-02 tablet by [facility] tablet 00:00: mouth at [place] [address] bedtime. [facility] imipramine 2021-0 Yes [id number] 10mg Take 1 [facility] 10 mg 6-02 tablet by [facility] tablet 00:00: mouth at [place] [address] bedtime. [facility] imipramine 2021-0 Yes [id number] 10mg Take 1 [facility] 10 mg 6-02 tablet by [facility] tablet 00:00: mouth at [place] [address] bedtime. [facility] imipramine 2021-0 Yes [id number] 10mg Take 1 [facility] 10 mg 6-02 tablet by [facility] tablet 00:00: mouth at [place] [address] bedtime. [facility] imipramine 2022-0 Yes [id number] 10mg Take 1 [facility] 10 mg 6-02 tablet by [facility] tablet 00:00: mouth at [place] [address] bedtime. [facility] imipramine 2021-0 Yes [id number] 10mg Take 1 [facility] 10 mg 6-02 tablet by [facility] tablet 00:00: mouth at [place] [address] bedtime. [facility] imipramine 2021-0 Yes [id number] 10mg Take 1 [facility] 10 mg 6-02 tablet by [facility] tablet 00:00: mouth at [place] [address] bedtime. [facility] imipramine 0 Yes [id number] 10mg Take 1 [facility] 10 mg 6-02 tablet by [facility] tablet 00:00: mouth at [place] [address] bedtime. [facility] imipramine 0 Yes [id number] 10mg Take 1 [facility] 10 mg 6-02 tablet by [facility] tablet 00:00: mouth at [place] [address] bedtime. [facility] imipramine 2021-0 Yes [id number] 10mg Take 1 [facility] 10 mg 6-02 tablet by [facility] tablet 00:00: mouth at [place] [address] bedtime. [facility] imipramine 0 Yes [id number] 10mg Take 1 [facility] 10 mg 6-02 tablet by [facility] tablet 00:00: mouth at [place] [address] bedtime. [facility] imipramine 0 Yes [id number] 10mg Take 1 [facility] 10 mg 6-02 tablet by [facility] tablet 00:00: mouth at [place] [address] bedtime. [facility] imipramine 2021-0 Yes [id number] 10mg Take 1 [facility] 10 mg 6-02 tablet by [facility] tablet 00:00: mouth at [place] [address] bedtime. [facility] imipramine 2021-0 Yes [id number] 10mg Take 1 [facility] 10 mg 6-02 tablet by [facility] tablet 00:00: mouth at [place] [address] bedtime. [facility] imipramine 2021-0 Yes [id number] 10mg Take 1 [facility] 10 mg 6-02 tablet by [facility] tablet 00:00: mouth at [place] [address] bedtime. [facility] imipramine 2021-0 Yes [id number] 10mg Take 1 [facility] 10 mg 6-02 tablet by [facility] tablet 00:00: mouth at [place] [address] bedtime. [facility] imipramine 2021-0 Yes [id number] 10mg Take 1 [facility] 10 mg 6-02 tablet by [facility] tablet 00:00: mouth at [place] [address] bedtime. [facility] imipramine 2021-0 Yes [id number] 10mg Take 1 [facility] 10 mg 6-02 tablet by [facility] tablet 00:00: mouth at [place] [address] bedtime. [facility] imipramine 2021-0 Yes [id number] 10mg Take 1 [facility] 10 mg 6-02 tablet by [facility] tablet 00:00: mouth at [place] [address] bedtime. [facility] imipramine 2021-0 Yes [id number] 10mg Take 1 [facility] 10 mg 6-02 tablet by [facility] tablet 00:00: mouth at [place] [address] bedtime. [facility] imipramine 0 Yes [id number] 10mg Take 1 [facility] 10 mg 6-02 tablet by [facility] tablet 00:00: mouth at [place] [address] bedtime. [facility] imipramine 2021-0 Yes [id number] 10mg Take 1 [facility] 10 mg 6-02 tablet by [facility] tablet 00:00: mouth at [place] [address] bedtime. [facility] imipramine 2021-0 Yes [id number] 10mg Take 1 [facility] 10 mg 6-02 tablet by [facility] tablet 00:00: mouth at [place] [address] bedtime. [facility] imipramine 0 Yes [id number] 10mg Take 1 [facility] 10 mg 6-02 tablet by [facility] tablet 00:00: mouth at [place] [address] bedtime. [facility] imipramine 2021-0 Yes [id number] 10mg Take 1 [facility] 10 mg 6-02 tablet by [facility] tablet 00:00: mouth at [place] [address] bedtime. [facility] imipramine 2021-0 Yes [id number] 10mg Take 1 [facility] 10 mg 6-02 tablet by [facility] tablet 00:00: mouth at [place] [address] bedtime. [facility] imipramine 2021-0 Yes [id number] 10mg Take 1 [facility] 10 mg 6-02 tablet by [facility] tablet 00:00: mouth at [place] [address] bedtime. [facility] imipramine 2021-0 Yes [id number] 10mg Take 1 [facility] 10 mg 6-02 tablet by [facility] tablet 00:00: mouth at [place] [address] bedtime. [facility] imipramine 2021-0 Yes [id number] 10mg Take 1 [facility] 10 mg 6-02 tablet by [facility] tablet 00:00: mouth at [place] [address] bedtime. [facility] imipramine 2021-0 Yes [id number] 10mg Take 1 [facility] 10 mg 6-02 tablet by [facility] tablet 00:00: mouth at [place] [address] bedtime. [facility] imipramine 2021-0 Yes [id number] 10mg Take 1 [facility] 10 mg 6-02 tablet by [facility] tablet 00:00: mouth at [place] [address] bedtime. [facility] imipramine 2021-0 Yes [id number] 10mg Take 1 [facility] 10 mg 6-02 tablet by [facility] tablet 00:00: mouth at [place] [address] bedtime. [facility] imipramine 0 Yes [id number] 10mg Take 1 [facility] 10 mg 6-02 tablet by [facility] tablet 00:00: mouth at [place] [address] bedtime. [facility] imipramine 2021-0 Yes [id number] 10mg Take 1 [facility] 10 mg 6-02 tablet by [facility] tablet 00:00: mouth at [place] [address] bedtime. [facility] imipramine 2021-0 Yes [id number] 10mg Take 1 [facility] 10 mg 6-02 tablet by [facility] tablet 00:00: mouth at [place] [address] bedtime. [facility] imipramine 2021-0 Yes [id number] 10mg Take 1 [facility] 10 mg 6-02 tablet by [facility] tablet 00:00: mouth at [place] [address] bedtime. [facility] imipramine 2021-0 Yes [id number] 10mg Take 1 [facility] 10 mg 6-02 tablet by [facility] tablet 00:00: mouth at [place] [address] bedtime. [facility] imipramine 2021-0 Yes [id number] 10mg Take 1 [facility] 10 mg 6-02 tablet by [facility] tablet 00:00: mouth at [place] [address] bedtime. [facility] imipramine 2021-0 Yes [id number] 10mg Take 1 [facility] 10 mg 6-02 tablet by [facility] tablet 00:00: mouth at [place] [address] bedtime. [facility] imipramine 2021-0 Yes [id number] 10mg Take 1 [facility] 10 mg 6-02 tablet by [facility] tablet 00:00: mouth at [place] [address] bedtime. [facility] imipramine 2021-0 Yes [id number] 10mg Take 1 [facility] 10 mg 6-02 tablet by [facility] tablet 00:00: mouth at [place] [address] bedtime. [facility] imipramine 2021-0 Yes [id number] 10mg Take 1 [facility] 10 mg 6-02 tablet by [facility] tablet 00:00: mouth at [place] [address] bedtime. [facility] imipramine 2021-0 Yes [id number] 10mg Take 1 [facility] 10 mg 6-02 tablet by [facility] tablet 00:00: mouth at [place] [address] bedtime. [facility] imipramine 2021-0 Yes [id number] 10mg Take 1 [facility] 10 mg 6-02 tablet by [facility] tablet 00:00: mouth at [place] [address] bedtime. [facility] imipramine 2021-0 Yes [id number] 10mg Take 1 [facility] 10 mg 6-02 tablet by [facility] tablet 00:00: mouth at [place] [address] bedtime. [facility] imipramine 2021-0 Yes [id number] 10mg Take 1 [facility] 10 mg 6-02 tablet by [facility] tablet 00:00: mouth at [place] [address] bedtime. [facility] imipramine 2021-0 Yes [id number] 10mg Take 1 [facility] 10 mg 6-02 tablet by [facility] tablet 00:00: mouth at [place] [address] bedtime. [facility] imipramine 2021-0 Yes [id number] 10mg Take 1 [facility] 10 mg 6-02 tablet by [facility] tablet 00:00: mouth at [place] [address] bedtime. [facility] imipramine 2021-0 Yes [id number] 10mg Take 1 [facility] 10 mg 6-02 tablet by [facility] tablet 00:00: mouth at [place] [address] bedtime. [facility] imipramine 2021-0 Yes [id number] 10mg Take 1 [facility] 10 mg 6-02 tablet by [facility] tablet 00:00: mouth at [place] [address] bedtime. [facility] imipramine 2021-0 Yes [id number] 10mg Take 1 [facility] 10 mg 6-02 tablet by [facility] tablet 00:00: mouth at [place] [address] bedtime. [facility] imipramine 2021-0 Yes [id number] 10mg Take 1 [facility] 10 mg 6-02 tablet by [facility] tablet 00:00: mouth at [place] [address] bedtime. [facility] imipramine 2021-0 Yes [id number] 10mg Take 1 [facility] 10 mg 6-02 tablet by [facility] tablet 00:00: mouth at [place] [address] bedtime. [facility] imipramine 2021-0 Yes [id number] 10mg Take 1 [facility] 10 mg 6-02 tablet by [facility] tablet 00:00: mouth at [place] [address] bedtime. [facility] imipramine 2021-0 Yes [id number] 10mg Take 1 [facility] 10 mg 6-02 tablet by [facility] tablet 00:00: mouth at [place] [address] bedtime. [facility] imipramine 2021-0 Yes [id number] 10mg Take 1 [facility] 10 mg 6-02 tablet by [facility] tablet 00:00: mouth at [place] [address] bedtime. [facility] imipramine 0 Yes [id number] 10mg Take 1 [facility] 10 mg 6-02 tablet by [facility] tablet 00:00: mouth at [place] [address] bedtime. [facility] imipramine 0 Yes [id number] 10mg Take 1 [facility] 10 mg 6-02 tablet by [facility] tablet 00:00: mouth at [place] [address] bedtime. [facility] imipramine 0 Yes [id number] 10mg Take 1 [facility] 10 mg 6-02 tablet by [facility] tablet 00:00: mouth at [place] [address] bedtime. [facility] imipramine 0 Yes [id number] 10mg Take 1 [facility] 10 mg 6-02 tablet by [facility] tablet 00:00: mouth at [place] [address] bedtime. [facility] imipramine 2021-0 Yes [id number] 10mg Take 1 [facility] 10 mg 6-02 tablet by [facility] tablet 00:00: mouth at [place] [address] bedtime. [facility] imipramine 2021-0 Yes [id number] 10mg Take 1 [facility] 10 mg 6-02 tablet by [facility] tablet 00:00: mouth at [place] [address] bedtime. [facility] imipramine 2021-0 Yes [id number] 10mg Take 1 [facility] 10 mg 6-02 tablet by [facility] tablet 00:00: mouth at [place] [address] bedtime. [facility] imipramine 2021-0 Yes [id number] 10mg Take 1 [facility] 10 mg 6-02 tablet by [facility] tablet 00:00: mouth at [place] [address] bedtime. [facility] imipramine 2021-0 Yes [id number] 10mg Take 1 [facility] 10 mg 6-02 tablet by [facility] tablet 00:00: mouth at [place] 00 bedtime. [facility] imipramine 2021-0 Yes [id number] 10mg Take 1 [facility] 10 mg 6-02 tablet by [facility] tablet 00:00: mouth at [place] [address] bedtime. [facility] imipramine 2021-0 Yes [id number] 10mg Take 1 [facility] 10 mg 6-02 tablet by [facility] tablet 00:00: mouth at [place] [address] bedtime. [facility] imipramine 2021-0 Yes [id number] 10mg Take 1 [facility] 10 mg 6-02 tablet by [facility] tablet 00:00: mouth at [place] [address] bedtime. [facility] imipramine 2021-0 Yes [id number] 10mg Take 1 [facility] 10 mg 6-02 tablet by [facility] tablet 00:00: mouth at [place] [address] bedtime. [facility] imipramine 2021-0 Yes [id number] 10mg Take 1 [facility] 10 mg 6-02 tablet by [facility] tablet 00:00: mouth at [place] [address] bedtime. [facility] imipramine 2021-0 Yes [id number] 10mg Take 1 [facility] 10 mg 6-02 tablet by [facility] tablet 00:00: mouth at [place] [address] bedtime. [facility] imipramine 2021-0 Yes [id number] 10mg Take 1 [facility] 10 mg 6-02 tablet by [facility] tablet 00:00: mouth at [place] [address] bedtime. [facility] imipramine 2021-0 Yes [id number] 10mg Take 1 [facility] 10 mg 6-02 tablet by [facility] tablet 00:00: mouth at [place] [address] bedtime. [facility] imipramine 2021-0 Yes [id number] 10mg Take 1 [facility] 10 mg 6-02 tablet by [facility] tablet 00:00: mouth at [place] [address] bedtime. [facility] imipramine 2021-0 Yes [id number] 10mg Take 1 [facility] 10 mg 6-02 tablet by [facility] tablet 00:00: mouth at [place] [address] bedtime. [facility] imipramine 2021-0 Yes [id number] 10mg Take 1 [facility] 10 mg 6-02 tablet by [facility] tablet 00:00: mouth at [place] [address] bedtime. [facility] imipramine 2021-0 Yes [id number] 10mg Take 1 [facility] 10 mg 6-02 tablet by [facility] tablet 00:00: mouth at [place] [address] bedtime. [facility] imipramine 2021-0 Yes [id number] 10mg Take 1 [facility] 10 mg 6-02 tablet by [facility] tablet 00:00: mouth at [place] [address] bedtime. [facility] imipramine 2021-0 Yes [id number] 10mg Take 1 [facility] 10 mg 6-02 tablet by [facility] tablet 00:00: mouth at [place] [address] bedtime. [facility] imipramine 2021-0 Yes [id number] 10mg Take 1 [facility] 10 mg 6-02 tablet by [facility] tablet 00:00: mouth at [place] [address] bedtime. [facility] imipramine 2021-0 Yes [id number] 10mg Take 1 [facility] 10 mg 6-02 tablet by [facility] tablet 00:00: mouth at [place] [address] bedtime. [facility] imipramine 0 Yes [id number] 10mg Take 1 [facility] 10 mg 6-02 tablet by [facility] tablet 00:00: mouth at [place] [address] bedtime. [facility] imipramine 2021-0 Yes [id number] 10mg Take 1 [facility] 10 mg 6-02 tablet by [facility] tablet 00:00: mouth at [place] [address] bedtime. [facility] imipramine 0 Yes [id number] 10mg Take 1 [facility] 10 mg 6-02 tablet by [facility] tablet 00:00: mouth at [place] [address] bedtime. [facility] imipramine 0 Yes [id number] 10mg Take 1 [facility] 10 mg 6-02 tablet by [facility] tablet 00:00: mouth at [place] [address] bedtime. [facility] imipramine 2021-0 Yes [id number] 10mg Take 1 [facility] 10 mg 6-02 tablet by [facility] tablet 00:00: mouth at [place] [address] bedtime. [facility] imipramine 2021-0 Yes [id number] 10mg Take 1 [facility] 10 mg 6-02 tablet by [facility] tablet 00:00: mouth at [place] [address] bedtime. [facility] imipramine 2021-0 Yes [id number] 10mg Take 1 [facility] 10 mg 6-02 tablet by [facility] tablet 00:00: mouth at [place] [address] bedtime. [facility] imipramine 2021-0 Yes [id number] 10mg Take 1 [facility] 10 mg 6-02 tablet by [facility] tablet 00:00: mouth at [place] [address] bedtime. [facility] imipramine 2021-0 Yes [id number] 10mg Take 1 [facility] 10 mg 6-02 tablet by [facility] tablet 00:00: mouth at [place] [address] bedtime. [facility] imipramine 2021-0 Yes [id number] 10mg Take 1 [facility] 10 mg 6-02 tablet by [facility] tablet 00:00: mouth at [place] [address] bedtime. [facility] imipramine 2021-0 Yes [id number] 10mg Take 1 [facility] 10 mg 6-02 tablet by [facility] tablet 00:00: mouth at [place] [address] bedtime. [facility] imipramine 0 Yes [id number] 10mg Take 1 [facility] 10 mg 6-02 tablet by [facility] tablet 00:00: mouth at [place] [address] bedtime. [facility] imipramine 0 Yes [id number] 10mg Take 1 [facility] 10 mg 6-02 tablet by [facility] tablet 00:00: mouth at [place] [address] bedtime. [facility] imipramine 0 Yes [id number] 10mg Take 1 [facility] 10 mg 6-02 tablet by [facility] tablet 00:00: mouth at [place] [address] bedtime. [facility] imipramine 0 Yes [id number] 10mg Take 1 [facility] 10 mg 6-02 tablet by [facility] tablet 00:00: mouth at [place] [address] bedtime. [facility] imipramine 0 Yes [id number] 10mg Take 1 [facility] 10 mg 6-02 tablet by [facility] tablet 00:00: mouth at [place] [address] bedtime. [facility] imipramine 0 Yes [id number] 10mg Take 1 [facility] 10 mg 6-02 tablet by [facility] tablet 00:00: mouth at [place] [address] bedtime. [facility] imipramine 2021-0 Yes [id number] 10mg Take 1 [facility] 10 mg 6-02 tablet by [facility] tablet 00:00: mouth at [place] [address] bedtime. [facility] imipramine 2021-0 Yes [id number] 10mg Take 1 [facility] 10 mg 6-02 tablet by [facility] tablet 00:00: mouth at [place] [address] bedtime. [facility] imipramine 2021-0 Yes [id number] 10mg Take 1 [facility] 10 mg 6-02 tablet by [facility] tablet 00:00: mouth at [place] [address] bedtime. [facility] imipramine 2021-0 Yes [id number] 10mg Take 1 [facility] 10 mg 6-02 tablet by [facility] tablet 00:00: mouth at [place] [address] bedtime. [facility] imipramine 2021-0 Yes [id number] 10mg Take 1 [facility] 10 mg 6-02 tablet by [facility] tablet 00:00: mouth at [place] [address] bedtime. [facility] imipramine 2021-0 Yes [id number] 10mg Take 1 [facility] 10 mg 6-02 tablet by [facility] tablet 00:00: mouth at [place] [address] bedtime. [facility] imipramine 2021-0 Yes [id number] 10mg Take 1 [facility] 10 mg 6-02 tablet by [facility] tablet 00:00: mouth at [place] [address] bedtime. [facility] imipramine 2021-0 Yes [id number] 10mg Take 1 [facility] 10 mg 6-02 tablet by [facility] tablet 00:00: mouth at [place] [address] bedtime. [facility] imipramine 2021-0 Yes [id number] 10mg Take 1 [facility] 10 mg 6-02 tablet by [facility] tablet 00:00: mouth at [place] [address] bedtime. [facility] imipramine 2021-0 Yes [id number] 10mg Take 1 [facility] 10 mg 6-02 tablet by [facility] tablet 00:00: mouth at [place] [address] bedtime. [facility] imipramine 2021-0 Yes [id number] 10mg Take 1 [facility] 10 mg 6-02 tablet by [facility] tablet 00:00: mouth at [place] [address] bedtime. [facility] imipramine 2021-0 Yes [id number] 10mg Take 1 [facility] 10 mg 6-02 tablet by [facility] tablet 00:00: mouth at [place] [address] bedtime. [facility] imipramine 2021-0 Yes [id number] 10mg Take 1 [facility] 10 mg 6-02 tablet by [facility] tablet 00:00: mouth at [place] [address] bedtime. [facility] imipramine 2021-0 Yes [id number] 10mg Take 1 [facility] 10 mg 6-02 tablet by [facility] tablet 00:00: mouth at [place] [address] bedtime. [facility] imipramine 2021-0 Yes [id number] 10mg Take 1 [facility] 10 mg 6-02 tablet by [facility] tablet 00:00: mouth at [place] [address] bedtime. [facility] imipramine 2021-0 Yes [id number] 10mg Take 1 [facility] 10 mg 6-02 tablet by [facility] tablet 00:00: mouth at [place] [address] bedtime. [facility] imipramine 2021-0 Yes [id number] 10mg Take 1 [facility] 10 mg 6-02 tablet by [facility] tablet 00:00: mouth at [place] [address] bedtime. [facility] imipramine 2021-0 Yes [id number] 10mg Take 1 [facility] 10 mg 6-02 tablet by [facility] tablet 00:00: mouth at [place] [address] bedtime. [facility] imipramine 2021-0 Yes [id number] 10mg Take 1 [facility] 10 mg 6-02 tablet by [facility] tablet 00:00: mouth at [place] [address] bedtime. [facility] imipramine 2021-0 Yes [id number] 10mg Take 1 [facility] 10 mg 6-02 tablet by [facility] tablet 00:00: mouth at [place] [address] bedtime. [facility] imipramine 2021-0 Yes [id number] 10mg Take 1 [facility] 10 mg 6-02 tablet by [facility] tablet 00:00: mouth at [place] [address] bedtime. [facility] imipramine 2021-0 Yes [id number] 10mg Take 1 [facility] 10 mg 6-02 tablet by [facility] tablet 00:00: mouth at [place] [address] bedtime. [facility] imipramine 0 Yes [id number] 10mg Take 1 [facility] 10 mg 6-02 tablet by [facility] tablet 00:00: mouth at [place] [address] bedtime. [facility] imipramine 2021-0 Yes [id number] 10mg Take 1 [facility] 10 mg 6-02 tablet by [facility] tablet 00:00: mouth at [place] [address] bedtime. [facility] imipramine 2021-0 Yes [id number] 10mg Take 1 [facility] 10 mg 6-02 tablet by [facility] tablet 00:00: mouth at [place] [address] bedtime. [facility] imipramine 2021-0 Yes [id number] 10mg Take 1 [facility] 10 mg 6-02 tablet by [facility] tablet 00:00: mouth at [place] [address] bedtime. [facility] imipramine 2021-0 Yes [id number] 10mg Take 1 [facility] 10 mg 6-02 tablet by [facility] tablet 00:00: mouth at [place] [address] bedtime. [facility] imipramine 2021-0 Yes [id number] 10mg Take 1 [facility] 10 mg 6-02 tablet by [facility] tablet 00:00: mouth at [place] [address] bedtime. [facility] imipramine 2021-0 Yes [id number] 10mg Take 1 [facility] 10 mg 6-02 tablet by [facility] tablet 00:00: mouth at [place] [address] bedtime. [facility] imipramine 2021-0 Yes [id number] 10mg Take 1 [facility] 10 mg 6-02 tablet by [facility] tablet 00:00: mouth at [place] [address] bedtime. [facility] imipramine 2021-0 Yes [id number] 10mg Take 1 [facility] 10 mg 6-02 tablet by [facility] tablet 00:00: mouth at [place] [address] bedtime. [facility] imipramine 2021-0 Yes [id number] 10mg Take 1 [facility] 10 mg 6-02 tablet by [facility] tablet 00:00: mouth at [place] [address] bedtime. [facility] imipramine 2021-0 Yes [id number] 10mg Take 1 [facility] 10 mg 6-02 tablet by [facility] tablet 00:00: mouth at [place] [address] bedtime. [facility] imipramine 2021-0 Yes [id number] 10mg Take 1 [facility] 10 mg 6-02 tablet by [facility] tablet 00:00: mouth at [place] [address] bedtime. [facility] imipramine 2021-0 Yes [id number] 10mg Take 1 [facility] 10 mg 6-02 tablet by [facility] tablet 00:00: mouth at [place] [address] bedtime. [facility] imipramine 2021-0 Yes [id number] 10mg Take 1 [facility] 10 mg 6-02 tablet by [facility] tablet 00:00: mouth at [place] [address] bedtime. [facility] imipramine 2021-0 Yes [id number] 10mg Take 1 [facility] 10 mg 6-02 tablet by [facility] tablet 00:00: mouth at [place] [address] bedtime. [facility] imipramine 2021-0 Yes [id number] 10mg Take 1 [facility] 10 mg 6-02 tablet by [facility] tablet 00:00: mouth at [place] [address] bedtime. [facility] imipramine 2021-0 Yes [id number] 10mg Take 1 [facility] 10 mg 6-02 tablet by [facility] tablet 00:00: mouth at [place] [address] bedtime. [facility] imipramine 2021-0 Yes [id number] 10mg Take 1 [facility] 10 mg 6-02 tablet by [facility] tablet 00:00: mouth at [place] [address] bedtime. [facility] imipramine 2021-0 Yes [id number] 10mg Take 1 [facility] 10 mg 6-02 tablet by [facility] tablet 00:00: mouth at [place] [address] bedtime. [facility] imipramine 2021-0 Yes [id number] 10mg Take 1 [facility] 10 mg 6-02 tablet by [facility] tablet 00:00: mouth at [place] [address] bedtime. [facility] imipramine 2021-0 Yes [id number] 10mg Take 1 [facility] 10 mg 6-02 tablet by [facility] tablet 00:00: mouth at [place] [address] bedtime. [facility] imipramine 2021-0 Yes [id number] 10mg Take 1 [facility] 10 mg 6-02 tablet by [facility] tablet 00:00: mouth at [place] [address] bedtime. [facility] imipramine 2021-0 Yes [id number] 10mg Take 1 [facility] 10 mg 6-02 tablet by [facility] tablet 00:00: mouth at [place] [address] bedtime. [facility] imipramine 2021-0 Yes [id number] 10mg Take 1 [facility] 10 mg 6-02 tablet by [facility] tablet 00:00: mouth at [place] [address] bedtime. [facility] imipramine 2021-0 Yes [id number] 10mg Take 1 [facility] 10 mg 6-02 tablet by [facility] tablet 00:00: mouth at [place] [address] bedtime. [facility] imipramine 2021-0 Yes [id number] 10mg Take 1 [facility] 10 mg 6-02 tablet by [facility] tablet 00:00: mouth at [place] [address] bedtime. [facility] imipramine 2021-0 Yes [id number] 10mg Take 1 [facility] 10 mg 6-02 tablet by [facility] tablet 00:00: mouth at [place] [address] bedtime. [facility] imipramine 2021-0 Yes [id number] 10mg Take 1 [facility] 10 mg 6-02 tablet by [facility] tablet 00:00: mouth at [place] [address] bedtime. [facility] imipramine 2021-0 Yes [id number] 10mg Take 1 [facility] 10 mg 6-02 tablet by [facility] tablet 00:00: mouth at [place] [address] bedtime. [facility] imipramine 2021-0 Yes [id number] 10mg Take 1 [facility] 10 mg 6-02 tablet by [facility] tablet 00:00: mouth at [place] [address] bedtime. [facility] imipramine 2021-0 Yes [id number] 10mg Take 1 [facility] 10 mg 6-02 tablet by [facility] tablet 00:00: mouth at [place] [address] bedtime. [facility] imipramine 0 Yes [id number] 10mg Take 1 [facility] 10 mg 6-02 tablet by [facility] 00:00: mouth at [place] [address] bedtime. [facility] imipramine 0 Yes [id number] 10mg Take 1 [facility] 10 mg 6-02 tablet by [facility] tablet 00:00: mouth at [place] [address] bedtime. [facility] imipramine 0 Yes [id number] 10mg Take 1 [facility] 10 mg 6-02 tablet by [facility] tablet 00:00: mouth at [place] [address] bedtime. [facility] imipramine 0 Yes [id number] 10mg Take 1 [facility] 10 mg 6-02 tablet by [facility] 00:00: mouth at [place] [address] bedtime. [facility] imipramine 0 Yes [id number] 10mg Take 1 [facility] 10 mg 6-02 tablet by [facility] tablet 00:00: mouth at [place] [address] bedtime. [facility] imipramine 0 Yes [id number] 10mg Take 1 [facility] 10 mg 6-02 tablet by [facility] tablet 00:00: mouth at [place] [address] bedtime. [facility] imipramine 0 Yes [id number] 10mg Take 1 [facility] 10 mg 6-02 tablet by [facility] 00:00: mouth at [place] [address] bedtime. [facility] imipramine 0 Yes [id number] 10mg Take 1 [facility] 10 mg 6-02 tablet by [facility] 00:00: mouth at [place] [address] bedtime. [facility] imipramine 0 Yes [id number] 10mg Take 1 [facility] 10 mg 6-02 tablet by [facility] 00:00: mouth at [place] [address] bedtime. [facility] imipramine 0 3- No [id number] 10mg Take 1 [facility] 10 mg 6-02 02-07 tablet by [facility] tablet 00:00: 00:00 mouth at [place] 00 :00 bedtime. [facility] imipramine 0 3- No [id number] 10mg Take 1 [facility] 10 mg 6-02 02-07 tablet by [facility] tablet 00:00: 00:00 mouth at [place] 00 :00 bedtime. [facility] imipramine 0 2023- No [id number] 10mg Take 1 [facility] 10 mg 12-08 tablet by [facility] 00:00: 00:00 mouth at [place] 00 :00 bedtime. [facility] levothyroxi 2021-0 Yes [id number] 100ug Take 1 [facility] 100 mcg 5-24 tablet by [facility] tablet 00:00: mouth [place] 00 every Medical morning. [facility] levothyroxi 2021-0 Yes [id number] 100ug Take 1 [facility] 100 mcg 5-24 tablet by [facility] tablet 00:00: mouth [place] 00 every Medical morning. [facility] levothyroxi 2021-0 Yes [id number] 100ug Take 1 [facility] 100 mcg 5-24 tablet by [facility] tablet 00:00: mouth [place] 00 every Medical morning. [facility] levothyroxi 2021-0 Yes [id number] 100ug Take 1 [facility] 100 mcg 5-24 tablet by [facility] tablet 00:00: mouth [place] 00 every Medical morning. [facility] levothyroxi 2021-0 Yes [id number] 100ug Take 1 [facility] 100 mcg 5-24 tablet by [facility] tablet 00:00: mouth [place] 00 every Medical morning. [facility] levothyroxi 2021-0 Yes [id number] 100ug Take 1 [facility] 100 mcg 5-24 tablet by [facility] tablet 00:00: mouth [place] 00 every Medical morning. [facility] levothyroxi 2021-0 Yes [id number] 100ug Take 1 [facility] 100 mcg 5-24 tablet by [facility] tablet 00:00: mouth [place] 00 every Medical morning. [facility] levothyroxi 2021-0 Yes [id number] 100ug Take 1 [facility] 100 mcg 5-24 tablet by [facility] 00:00: mouth [place] 00 every Medical morning. [facility] levothyroxi 2021-0 Yes [id number] 100ug Take 1 [facility] 100 mcg 5-24 tablet by [facility] tablet 00:00: mouth [place] 00 every Medical morning. [facility] levothyroxi 2021-0 Yes [id number] 100ug Take 1 [facility] 100 mcg 5-24 tablet by [facility] tablet 00:00: mouth [place] 00 every Medical morning. [facility] levothyroxi 2021-0 Yes [id number] 100ug Take 1 [facility] 100 mcg 5-24 tablet by [facility] tablet 00:00: mouth [place] 00 every Medical morning. [facility] levothyroxi 2021-0 Yes [id number] 100ug Take 1 [facility] 100 mcg 5-24 tablet by [facility] tablet 00:00: mouth [place] 00 every Medical morning. Branch levothyroxi 2021-0 Yes [id number] 100ug Take 1 [facility] 100 mcg 5-24 tablet by [facility] tablet 00:00: mouth [place] 00 every Medical morning. [facility] levothyroxi 2021-0 Yes [id number] 100ug Take 1 [facility] 100 mcg 5-24 tablet by [facility] 00:00: mouth [place] 00 every Medical morning. [facility] levothyroxi 2021-0 Yes [id number] 100ug Take 1 [facility] 100 mcg 5-24 tablet by [facility] tablet 00:00: mouth [place] 00 every Medical morning. [facility] levothyroxi 2021-0 Yes [id number] 100ug Take 1 [facility] 100 mcg 5-24 tablet by [facility] tablet 00:00: mouth [place] 00 every Medical morning. [facility] levothyroxi 2021-0 Yes [id number] 100ug Take 1 [facility] 100 mcg 5-24 tablet by [facility] tablet 00:00: mouth [place] 00 every Medical morning. [facility] levothyroxi 2021-0 Yes [id number] 100ug Take 1 [facility] 100 mcg 5-24 tablet by [facility] tablet 00:00: mouth [place] 00 every Medical morning. [facility] levothyroxi 2021-0 Yes [id number] 100ug Take 1 [facility] 100 mcg 5-24 tablet by [facility] tablet 00:00: mouth [place] 00 every Medical morning. [facility] levothyroxi 2-0 Yes [id number] 100ug Take 1 [facility] 100 mcg 5-24 tablet by [facility] 00:00: mouth [place] 00 every Medical morning. [facility] levothyroxi 2021-0 Yes [id number] 100ug Take 1 [facility] 100 mcg 5-24 tablet by [facility] 00:00: mouth [place] 00 every Medical morning. [facility] levothyroxi 2-0 Yes [id number] 100ug Take 1 [facility] 100 mcg 5-24 tablet by [facility] 00:00: mouth [place] 00 every Medical morning. [facility] levothyroxi 2-0 Yes [id number] 100ug Take 1 [facility] 100 mcg 5-24 tablet by [facility] 00:00: mouth [place] 00 every Medical morning. [facility] levothyroxi 2021-0 Yes [id number] 100ug Take 1 [facility] 100 mcg 5-24 tablet by [facility] tablet 00:00: mouth [place] 00 every Medical morning. Branch levothyroxi 2-0 Yes [id number] 100ug Take 1 [facility] 100 mcg 5-24 tablet by [facility] tablet 00:00: mouth [place] 00 every Medical morning. Branch levothyroxi 2-0 Yes [id number] 100ug Take 1 [facility] 100 mcg 5-24 tablet by [facility] tablet 00:00: mouth [place] 00 every Medical morning. [facility] levothyroxi 2-0 Yes [id number] 100ug Take 1 [facility] 100 mcg 5-24 tablet by [facility] tablet 00:00: mouth [place] 00 every Medical morning. [facility] levothyroxi 2-0 Yes [id number] 100ug Take 1 [facility] 100 mcg 5-24 tablet by [facility] tablet 00:00: mouth [place] 00 every Medical morning. Branch levothyroxi 2-0 Yes [id number] 100ug Take 1 [facility] 100 mcg 5-24 tablet by [facility] tablet 00:00: mouth [place] 00 every Medical morning. [facility] levothyroxi 2021-0 Yes [id number] 100ug Take 1 [facility] 100 mcg 5-24 tablet by [facility] tablet 00:00: mouth [place] 00 every Medical morning. Branch levothyroxi 2-0 Yes [id number] 100ug Take 1 [facility] 100 mcg 5-24 tablet by [facility] tablet 00:00: mouth [place] 00 every Medical morning. [facility] levothyroxi 2-0 Yes [id number] 100ug Take 1 [facility] 100 mcg 5-24 tablet by [facility] tablet 00:00: mouth [place] 00 every Medical morning. [facility] levothyroxi 2-0 Yes [id number] 100ug Take 1 [facility] 100 mcg 5-24 tablet by [facility] tablet 00:00: mouth [place] 00 every Medical morning. [facility] levothyroxi 2-0 Yes [id number] 100ug Take 1 [facility] 100 mcg 5-24 tablet by [facility] tablet 00:00: mouth [place] 00 every Medical morning. [facility] levothyroxi 2-0 Yes [id number] 100ug Take 1 [facility] 100 mcg 5-24 tablet by [facility] tablet 00:00: mouth [place] 00 every Medical morning. [facility] levothyroxi 2021-0 Yes [id number] 100ug Take 1 [facility] 100 mcg 5-24 tablet by [facility] tablet 00:00: mouth [place] 00 every Medical morning. [facility] levothyroxi 2021-0 Yes [id number] 100ug Take 1 [facility] 100 mcg 5-24 tablet by [facility] tablet 00:00: mouth [place] 00 every Medical morning. [facility] levothyroxi 2021-0 Yes [id number] 100ug Take 1 [facility] 100 mcg 5-24 tablet by [facility] tablet 00:00: mouth [place] 00 every Medical morning. [facility] levothyroxi 2021-0 Yes [id number] 100ug Take 1 [facility] 100 mcg 5-24 tablet by [facility] tablet 00:00: mouth [place] 00 every Medical morning. [facility] levothyroxi 2021-0 Yes [id number] 100ug Take 1 [facility] 100 mcg 5-24 tablet by [facility] tablet 00:00: mouth [place] 00 every Medical morning. [facility] levothyroxi 2021-0 Yes [id number] 100ug Take 1 [facility] 100 mcg 5-24 tablet by [facility] tablet 00:00: mouth [place] 00 every Medical morning. [facility] levothyroxi 2021-0 Yes [id number] 100ug Take 1 [facility] 100 mcg 5-24 tablet by [facility] tablet 00:00: mouth [place] 00 every Medical morning. Branch levothyroxi 2021-0 Yes [id number] 100ug Take 1 [facility] 100 mcg 5-24 tablet by [facility] tablet 00:00: mouth [place] 00 every Medical morning. [facility] levothyroxi 2021-0 Yes [id number] 100ug Take 1 [facility] 100 mcg 5-24 tablet by [facility] tablet 00:00: mouth [place] 00 every Medical morning. [facility] levothyroxi 2021-0 Yes [id number] 100ug Take 1 [facility] 100 mcg 5-24 tablet by [facility] tablet 00:00: mouth [place] 00 every Medical morning. [facility] levothyroxi 2021-0 Yes [id number] 100ug Take 1 [facility] 100 mcg 5-24 tablet by [facility] 00:00: mouth [place] 00 every Medical morning. [facility] levothyroxi 2021-0 Yes [id number] 100ug Take 1 [facility] 100 mcg 5-24 tablet by [facility] tablet 00:00: mouth [place] 00 every Medical morning. [facility] levothyroxi 2021-0 Yes [id number] 100ug Take 1 [facility] 100 mcg 5-24 tablet by [facility] tablet 00:00: mouth [place] 00 every Medical morning. [facility] levothyroxi 2021-0 Yes [id number] 100ug Take 1 [facility] 100 mcg 5-24 tablet by [facility] tablet 00:00: mouth [place] 00 every Medical morning. [facility] levothyroxi 2021-0 Yes [id number] 100ug Take 1 [facility] 100 mcg 5-24 tablet by [facility] tablet 00:00: mouth [place] 00 every Medical morning. [facility] levothyroxi 2021-0 Yes [id number] 100ug Take 1 [facility] 100 mcg 5-24 tablet by [facility] tablet 00:00: mouth [place] 00 every Medical morning. [facility] levothyroxi 2021-0 Yes [id number] 100ug Take 1 [facility] 100 mcg 5-24 tablet by [facility] tablet 00:00: mouth [place] 00 every Medical morning. [facility] levothyroxi 2021-0 Yes [id number] 100ug Take 1 [facility] 100 mcg 5-24 tablet by [facility] tablet 00:00: mouth [place] 00 every Medical morning. Branch levothyroxi 2021-0 Yes [id number] 100ug Take 1 [facility] 100 mcg 5-24 tablet by [facility] tablet 00:00: mouth [place] 00 every Medical morning. [facility] levothyroxi 2021-0 Yes [id number] 100ug Take 1 [facility] 100 mcg 5-24 tablet by [facility] tablet 00:00: mouth [place] 00 every Medical morning. Branch levothyroxi 2-0 Yes [id number] 100ug Take 1 [facility] 100 mcg 5-24 tablet by [facility] tablet 00:00: mouth [place] 00 every Medical morning. Branch levothyroxi 2-0 Yes [id number] 100ug Take 1 [facility] 100 mcg 5-24 tablet by [facility] tablet 00:00: mouth [place] 00 every Medical morning. [facility] levothyroxi 2-0 Yes [id number] 100ug Take 1 [facility] 100 mcg 5-24 tablet by [facility] tablet 00:00: mouth [place] 00 every Medical morning. [facility] levothyroxi 2-0 Yes [id number] 100ug Take 1 [facility] 100 mcg 5-24 tablet by [facility] tablet 00:00: mouth [place] 00 every Medical morning. [facility] levothyroxi 2021-0 Yes [id number] 100ug Take 1 [facility] 100 mcg 5-24 tablet by [facility] tablet 00:00: mouth [place] 00 every Medical morning. [facility] levothyroxi 2021-0 Yes [id number] 100ug Take 1 [facility] 100 mcg 5-24 tablet by [facility] tablet 00:00: mouth [place] 00 every Medical morning. [facility] levothyroxi 2021-0 Yes [id number] 100ug Take 1 [facility] 100 mcg 5-24 tablet by [facility] tablet 00:00: mouth [place] 00 every Medical morning. Branch levothyroxi 2021-0 Yes [id number] 100ug Take 1 [facility] 100 mcg 5-24 tablet by [facility] tablet 00:00: mouth [place] 00 every Medical morning. [facility] levothyroxi 2021-0 Yes [id number] 100ug Take 1 [facility] 100 mcg 5-24 tablet by [facility] tablet 00:00: mouth [place] 00 every Medical morning. [facility] levothyroxi 2021-0 Yes [id number] 100ug Take 1 [facility] 100 mcg 5-24 tablet by [facility] tablet 00:00: mouth [place] 00 every Medical morning. [facility] levothyroxi 2021-0 Yes [id number] 100ug Take 1 [facility] ne 100 mcg 5-24 tablet by [facility] tablet 00:00: mouth [place] 00 every Medical morning. [facility] levothyroxi 2021-0 Yes [id number] 100ug Take 1 [facility] 100 mcg 5-24 tablet by [facility] tablet 00:00: mouth [place] 00 every Medical morning. [facility] levothyroxi 2021-0 Yes [id number] 100ug Take 1 [facility] 100 mcg 5-24 tablet by [facility] tablet 00:00: mouth [place] 00 every Medical morning. [facility] levothyroxi 2021-0 Yes [id number] 100ug Take 1 [facility] 100 mcg 5-24 tablet by [facility] tablet 00:00: mouth [place] 00 every Medical morning. [facility] levothyroxi 2021-0 Yes [id number] 100ug Take 1 [facility] 100 mcg 5-24 tablet by [facility] tablet 00:00: mouth [place] 00 every Medical morning. Branch levothyroxi 2021-0 Yes [id number] 100ug Take 1 [facility] 100 mcg 5-24 tablet by [facility] tablet 00:00: mouth [place] 00 every Medical morning. Branch levothyroxi 2-0 Yes [id number] 100ug Take 1 [facility] ne 100 mcg 5-24 tablet by [facility] tablet 00:00: mouth [place] 00 every Medical morning. Branch levothyroxi 2-0 Yes [id number] 100ug Take 1 [facility] ne 100 mcg 5-24 tablet by [facility] tablet 00:00: mouth [place] 00 every Medical morning. [facility] levothyroxi 2-0 Yes [id number] 100ug Take 1 [facility] ne 100 mcg 5-24 tablet by [facility] tablet 00:00: mouth [place] 00 every Medical morning. Branch levothyroxi 2-0 Yes [id number] 100ug Take 1 [facility] ne 100 mcg 5-24 tablet by [facility] tablet 00:00: mouth [place] 00 every Medical morning. [facility] levothyroxi 2-0 Yes [id number] 100ug Take 1 [facility] ne 100 mcg 5-24 tablet by [facility] tablet 00:00: mouth [place] 00 every Medical morning. Branch levothyroxi 2-0 Yes [id number] 100ug Take 1 [facility] ne 100 mcg 5-24 tablet by [facility] tablet 00:00: mouth [place] 00 every Medical morning. Branch levothyroxi 2-0 Yes [id number] 100ug Take 1 [facility] ne 100 mcg 5-24 tablet by [facility] tablet 00:00: mouth [place] 00 every Medical morning. [facility] levothyroxi 2-0 Yes [id number] 100ug Take 1 [facility] ne 100 mcg 5-24 tablet by [facility] tablet 00:00: mouth [place] 00 every Medical morning. [facility] levothyroxi 2-0 Yes [id number] 100ug Take 1 [facility] ne 100 mcg 5-24 tablet by [facility] tablet 00:00: mouth [place] 00 every Medical morning. [facility] levothyroxi 2-0 Yes [id number] 100ug Take 1 [facility] 100 mcg 5-24 tablet by [facility] tablet 00:00: mouth [place] 00 every Medical morning. [facility] levothyroxi 2-0 Yes [id number] 100ug Take 1 [facility] ne 100 mcg 5-24 tablet by [facility] tablet 00:00: mouth [place] 00 every Medical morning. Branch levothyroxi 2-0 Yes [id number] 100ug Take 1 [facility] ne 100 mcg 5-24 tablet by [facility] tablet 00:00: mouth [place] 00 every Medical morning. Branch levothyroxi 2-0 Yes [id number] 100ug Take 1 [facility] ne 100 mcg 5-24 tablet by [facility] tablet 00:00: mouth [place] 00 every Medical morning. Branch levothyroxi 2-0 Yes [id number] 100ug Take 1 [facility] ne 100 mcg 5-24 tablet by [facility] tablet 00:00: mouth [place] 00 every Medical morning. [facility] levothyroxi 2-0 Yes [id number] 100ug Take 1 [facility] ne 100 mcg 5-24 tablet by [facility] tablet 00:00: mouth [place] 00 every Medical morning. Branch levothyroxi 2-0 Yes [id number] 100ug Take 1 [facility] ne 100 mcg 5-24 tablet by [facility] tablet 00:00: mouth [place] 00 every Medical morning. Branch levothyroxi 2-0 Yes [id number] 100ug Take 1 [facility] ne 100 mcg 5-24 tablet by [facility] tablet 00:00: mouth [place] 00 every Medical morning. [facility] levothyroxi 2021-0 Yes [id number] 100ug Take 1 [facility] ne 100 mcg 5-24 tablet by [facility] tablet 00:00: mouth [place] 00 every Medical morning. Branch levothyroxi 2-0 Yes [id number] 100ug Take 1 [facility] ne 100 mcg 5-24 tablet by [facility] tablet 00:00: mouth [place] 00 every Medical morning. Branch levothyroxi 2-0 Yes [id number] 100ug Take 1 [facility] 100 mcg 5-24 tablet by [facility] tablet 00:00: mouth [place] 00 every Medical morning. [facility] levothyroxi 2-0 Yes [id number] 100ug Take 1 [facility] ne 100 mcg 5-24 tablet by [facility] tablet 00:00: mouth [place] 00 every Medical morning. Branch levothyroxi 2-0 Yes [id number] 100ug Take 1 [facility] ne 100 mcg 5-24 tablet by [facility] tablet 00:00: mouth [place] 00 every Medical morning. [facility] levothyroxi 2-0 Yes [id number] 100ug Take 1 [facility] ne 100 mcg 5-24 tablet by [facility] tablet 00:00: mouth [place] 00 every Medical morning. Branch levothyroxi 2022-0 Yes [id number] 100ug Take 1 [facility] 100 mcg 5-24 tablet by [facility] tablet 00:00: mouth [place] 00 every Medical morning. [facility] levothyroxi 2-0 Yes [id number] 100ug Take 1 [facility] ne 100 mcg 5-24 tablet by [facility] tablet 00:00: mouth [place] 00 every Medical morning. [facility] levothyroxi 2-0 Yes [id number] 100ug Take 1 [facility] 100 mcg 5-24 tablet by [facility] tablet 00:00: mouth [place] 00 every Medical morning. [facility] levothyroxi 2-0 Yes [id number] 100ug Take 1 [facility] ne 100 mcg 5-24 tablet by [facility] tablet 00:00: mouth [place] 00 every Medical morning. [facility] levothyroxi 2-0 Yes [id number] 100ug Take 1 [facility] ne 100 mcg 5-24 tablet by [facility] tablet 00:00: mouth [place] 00 every Medical morning. Branch levothyroxi 2021-0 Yes [id number] 100ug Take 1 [facility] ne 100 mcg 5-24 tablet by [facility] tablet 00:00: mouth [place] 00 every Medical morning. Branch levothyroxi 2021-0 Yes [id number] 100ug Take 1 [facility] 100 mcg 5-24 tablet by [facility] tablet 00:00: mouth [place] 00 every Medical morning. [facility] levothyroxi 2021-0 Yes [id number] 100ug Take 1 [facility] ne 100 mcg 5-24 tablet by [facility] tablet 00:00: mouth [place] 00 every Medical morning. Branch levothyroxi 2-0 Yes [id number] 100ug Take 1 [facility] ne 100 mcg 5-24 tablet by [facility] tablet 00:00: mouth [place] 00 every Medical morning. [facility] levothyroxi 2-0 Yes [id number] 100ug Take 1 [facility] ne 100 mcg 5-24 tablet by [facility] tablet 00:00: mouth [place] 00 every Medical morning. [facility] levothyroxi 2-0 Yes [id number] 100ug Take 1 [facility] ne 100 mcg 5-24 tablet by [facility] tablet 00:00: mouth [place] 00 every Medical morning. Branch levothyroxi 2-0 Yes [id number] 100ug Take 1 [facility] ne 100 mcg 5-24 tablet by [facility] tablet 00:00: mouth [place] 00 every Medical morning. Branch levothyroxi 2021-0 Yes [id number] 100ug Take 1 [facility] ne 100 mcg 5-24 tablet by [facility] tablet 00:00: mouth [place] 00 every Medical morning. Branch levothyroxi 2021-0 Yes [id number] 100ug Take 1 [facility] ne 100 mcg 5-24 tablet by [facility] tablet 00:00: mouth [place] 00 every Medical morning. Branch levothyroxi 2-0 Yes [id number] 100ug Take 1 [facility] ne 100 mcg 5-24 tablet by [facility] tablet 00:00: mouth [place] 00 every Medical morning. Branch levothyroxi 2021-0 Yes [id number] 100ug Take 1 [facility] ne 100 mcg 5-24 tablet by [facility] tablet 00:00: mouth [place] 00 every Medical morning. Branch levothyroxi 2021-0 Yes [id number] 100ug Take 1 [facility] ne 100 mcg 5-24 tablet by [facility] tablet 00:00: mouth [place] 00 every Medical morning. Branch levothyroxi 2021-0 Yes [id number] 100ug Take 1 [facility] ne 100 mcg 5-24 tablet by [facility] tablet 00:00: mouth [place] 00 every Medical morning. Branch levothyroxi 2021-0 Yes [id number] 100ug Take 1 [facility] ne 100 mcg 5-24 tablet by [facility] tablet 00:00: mouth [place] 00 every Medical morning. [facility] levothyroxi 2021-0 Yes [id number] 100ug Take 1 [facility] ne 100 mcg 5-24 tablet by [facility] tablet 00:00: mouth [place] 00 every Medical morning. Branch levothyroxi 2-0 Yes [id number] 100ug Take 1 [facility] ne 100 mcg 5-24 tablet by [facility] tablet 00:00: mouth [place] 00 every Medical morning. Branch levothyroxi 2021-0 Yes [id number] 100ug Take 1 [facility] ne 100 mcg 5-24 tablet by [facility] tablet 00:00: mouth [place] 00 every Medical morning. Branch levothyroxi 2-0 Yes [id number] 100ug Take 1 [facility] ne 100 mcg 5-24 tablet by [facility] tablet 00:00: mouth [place] 00 every Medical morning. Branch levothyroxi 2-0 Yes [id number] 100ug Take 1 [facility] ne 100 mcg 5-24 tablet by [facility] tablet 00:00: mouth [place] 00 every Medical morning. Branch levothyroxi 2-0 Yes [id number] 100ug Take 1 [facility] ne 100 mcg 5-24 tablet by [facility] tablet 00:00: mouth [place] 00 every Medical morning. Branch levothyroxi 2-0 Yes [id number] 100ug Take 1 [facility] ne 100 mcg 5-24 tablet by [facility] tablet 00:00: mouth [place] 00 every Medical morning. [facility] levothyroxi 2-0 Yes [id number] 100ug Take 1 [facility] ne 100 mcg 5-24 tablet by [facility] tablet 00:00: mouth [place] 00 every Medical morning. Branch levothyroxi 2-0 Yes [id number] 100ug Take 1 [facility] ne 100 mcg 5-24 tablet by [facility] tablet 00:00: mouth [place] 00 every Medical morning. [facility] levothyroxi 2-0 Yes [id number] 100ug Take 1 [facility] ne 100 mcg 5-24 tablet by [facility] tablet 00:00: mouth [place] 00 every Medical morning. [facility] levothyroxi 2-0 Yes [id number] 100ug Take 1 [facility] ne 100 mcg 5-24 tablet by [facility] tablet 00:00: mouth [place] 00 every Medical morning. Branch levothyroxi 2021-0 Yes [id number] 100ug Take 1 [facility] ne 100 mcg 5-24 tablet by [facility] tablet 00:00: mouth [place] 00 every Medical morning. Branch levothyroxi 2-0 Yes [id number] 100ug Take 1 [facility] ne 100 mcg 5-24 tablet by [facility] tablet 00:00: mouth [place] 00 every Medical morning. [facility] levothyroxi 2-0 Yes [id number] 100ug Take 1 [facility] ne 100 mcg 5-24 tablet by [facility] tablet 00:00: mouth [place] 00 every Medical morning. Branch levothyroxi 2-0 Yes [id number] 100ug Take 1 [facility] ne 100 mcg 5-24 tablet by [facility] tablet 00:00: mouth [place] 00 every Medical morning. Branch levothyroxi 2-0 Yes [id number] 100ug Take 1 [facility] ne 100 mcg 5-24 tablet by [facility] tablet 00:00: mouth [place] 00 every Medical morning. [facility] levothyroxi 2-0 Yes [id number] 100ug Take 1 [facility] ne 100 mcg 5-24 tablet by [facility] tablet 00:00: mouth [place] 00 every Medical morning. [facility] levothyroxi 2021-0 Yes [id number] 100ug Take 1 [facility] ne 100 mcg 5-24 tablet by [facility] tablet 00:00: mouth [place] 00 every Medical morning. [facility] levothyroxi 2021-0 Yes [id number] 100ug Take 1 [facility] ne 100 mcg 5-24 tablet by [facility] tablet 00:00: mouth [place] 00 every Medical morning. [facility] levothyroxi 2-0 Yes [id number] 100ug Take 1 [facility] ne 100 mcg 5-24 tablet by [facility] tablet 00:00: mouth [place] 00 every Medical morning. [facility] levothyroxi 2021-0 Yes [id number] 100ug Take 1 [facility] ne 100 mcg 5-24 tablet by [facility] tablet 00:00: mouth [place] 00 every Medical morning. [facility] levothyroxi 2-0 Yes [id number] 100ug Take 1 [facility] ne 100 mcg 5-24 tablet by [facility] tablet 00:00: mouth [place] 00 every Medical morning. Branch levothyroxi 2-0 Yes [id number] 100ug Take 1 [facility] ne 100 mcg 5-24 tablet by [facility] tablet 00:00: mouth [place] 00 every Medical morning. [facility] levothyroxi 2021-0 Yes [id number] 100ug Take 1 [facility] ne 100 mcg 5-24 tablet by [facility] tablet 00:00: mouth [place] 00 every Medical morning. [facility] levothyroxi 2-0 Yes [id number] 100ug Take 1 [facility] ne 100 mcg 5-24 tablet by [facility] tablet 00:00: mouth [place] 00 every Medical morning. [facility] levothyroxi 2-0 Yes [id number] 100ug Take 1 [facility] ne 100 mcg 5-24 tablet by [facility] tablet 00:00: mouth [place] 00 every Medical morning. [facility] levothyroxi 2-0 Yes [id number] 100ug Take 1 [facility] ne 100 mcg 5-24 tablet by [facility] tablet 00:00: mouth [place] 00 every Medical morning. [facility] levothyroxi 2-0 Yes [id number] 100ug Take 1 [facility] ne 100 mcg 5-24 tablet by [facility] tablet 00:00: mouth [place] 00 every Medical morning. [facility] levothyroxi 2-0 Yes [id number] 100ug Take 1 [facility] ne 100 mcg 5-24 tablet by [facility] tablet 00:00: mouth [place] 00 every Medical morning. [facility] levothyroxi 2-0 Yes [id number] 100ug Take 1 [facility] ne 100 mcg 5-24 tablet by [facility] tablet 00:00: mouth [place] 00 every Medical morning. [facility] levothyroxi 2-0 Yes [id number] 100ug Take 1 [facility] ne 100 mcg 5-24 tablet by [facility] tablet 00:00: mouth [place] 00 every Medical morning. Branch levothyroxi 2-0 Yes [id number] 100ug Take 1 [facility] ne 100 mcg 5-24 tablet by [facility] tablet 00:00: mouth [place] 00 every Medical morning. Branch levothyroxi 2-0 Yes [id number] 100ug Take 1 [facility] ne 100 mcg 5-24 tablet by [facility] tablet 00:00: mouth [place] 00 every Medical morning. [facility] levothyroxi 2-0 Yes [id number] 100ug Take 1 [facility] ne 100 mcg 5-24 tablet by [facility] tablet 00:00: mouth [place] 00 every Medical morning. [facility] levothyroxi 2-0 Yes [id number] 100ug Take 1 [facility] ne 100 mcg 5-24 tablet by [facility] tablet 00:00: mouth [place] 00 every Medical morning. [facility] levothyroxi 2021-0 Yes [id number] 100ug Take 1 [facility] ne 100 mcg 5-24 tablet by [facility] tablet 00:00: mouth [place] 00 every Medical morning. Branch levothyroxi 2-0 Yes [id number] 100ug Take 1 [facility] ne 100 mcg 5-24 tablet by [facility] tablet 00:00: mouth [place] 00 every Medical morning. [facility] levothyroxi 2-0 Yes [id number] 100ug Take 1 [facility] ne 100 mcg 5-24 tablet by [facility] tablet 00:00: mouth [place] 00 every Medical morning. [facility] levothyroxi 2-0 Yes [id number] 100ug Take 1 [facility] ne 100 mcg 5-24 tablet by [facility] tablet 00:00: mouth [place] 00 every Medical morning. [facility] levothyroxi 2-0 Yes [id number] 100ug Take 1 [facility] ne 100 mcg 5-24 tablet by [facility] tablet 00:00: mouth [place] 00 every Medical morning. [facility] levothyroxi 2-0 Yes [id number] 100ug Take 1 [facility] ne 100 mcg 5-24 tablet by [facility] tablet 00:00: mouth [place] 00 every Medical morning. [facility] levothyroxi 2021-0 Yes [id number] 100ug Take 1 [facility] ne 100 mcg 5-24 tablet by [facility] tablet 00:00: mouth [place] 00 every Medical morning. Branch levothyroxi 2021-0 Yes [id number] 100ug Take 1 [facility] ne 100 mcg 5-24 tablet by [facility] tablet 00:00: mouth [place] 00 every Medical morning. Branch levothyroxi 2-0 Yes [id number] 100ug Take 1 [facility] ne 100 mcg 5-24 tablet by [facility] tablet 00:00: mouth [place] 00 every Medical morning. Branch levothyroxi 2021-0 Yes [id number] 100ug Take 1 [facility] ne 100 mcg 5-24 tablet by [facility] tablet 00:00: mouth [place] 00 every Medical morning. Branch levothyroxi 2021-0 Yes [id number] 100ug Take 1 [facility] ne 100 mcg 5-24 tablet by [facility] tablet 00:00: mouth [place] 00 every Medical morning. Branch levothyroxi 2021-0 Yes [id number] 100ug Take 1 [facility] ne 100 mcg 5-24 tablet by [facility] tablet 00:00: mouth [place] 00 every Medical morning. Branch levothyroxi 2021-0 Yes [id number] 100ug Take 1 [facility] ne 100 mcg 5-24 tablet by [facility] tablet 00:00: mouth [place] 00 every Medical morning. Branch levothyroxi 2021-0 Yes [id number] 100ug Take 1 [facility] ne 100 mcg 5-24 tablet by [facility] tablet 00:00: mouth [place] 00 every Medical morning. Branch levothyroxi 2021-0 Yes [id number] 100ug Take 1 [facility] ne 100 mcg 5-24 tablet by [facility] tablet 00:00: mouth [place] 00 every Medical morning. Branch levothyroxi 2-0 Yes [id number] 100ug Take 1 [facility] ne 100 mcg 5-24 tablet by [facility] tablet 00:00: mouth [place] 00 every Medical morning. Branch levothyroxi 2-0 Yes [id number] 100ug Take 1 [facility] ne 100 mcg 5-24 tablet by [facility] tablet 00:00: mouth [place] 00 every Medical morning. Branch levothyroxi 2021-0 Yes [id number] 100ug Take 1 [facility] ne 100 mcg 5-24 tablet by [facility] tablet 00:00: mouth [place] 00 every Medical morning. Branch levothyroxi 2021-0 Yes [id number] 100ug Take 1 [facility] ne 100 mcg 5-24 tablet by [facility] tablet 00:00: mouth [place] 00 every Medical morning. Branch levothyroxi 2021-0 Yes [id number] 100ug Take 1 [facility] ne 100 mcg 5-24 tablet by [facility] tablet 00:00: mouth [place] 00 every Medical morning. Branch levothyroxi 2021-0 Yes [id number] 100ug Take 1 [facility] ne 100 mcg 5-24 tablet by [facility] tablet 00:00: mouth [place] 00 every Medical morning. Branch levothyroxi 2021-0 Yes [id number] 100ug Take 1 [facility] ne 100 mcg 5-24 tablet by [facility] tablet 00:00: mouth [place] 00 every Medical morning. Branch levothyroxi 2021-0 Yes [id number] 100ug Take 1 [facility] ne 100 mcg 5-24 tablet by [facility] tablet 00:00: mouth [place] 00 every Medical morning. [facility] levothyroxi 2021-0 Yes [id number] 100ug Take 1 [facility] ne 100 mcg 5-24 tablet by [facility] tablet 00:00: mouth [place] 00 every Medical morning. Branch levothyroxi 2021-0 Yes [id number] 100ug Take 1 [facility] ne 100 mcg 5-24 tablet by [facility] tablet 00:00: mouth [place] 00 every Medical morning. [facility] levothyroxi 2021-0 Yes [id number] 100ug Take 1 [facility] ne 100 mcg 5-24 tablet by [facility] tablet 00:00: mouth [place] 00 every Medical morning. Branch levothyroxi 2021-0 Yes [id number] 100ug Take 1 [facility] ne 100 mcg 5-24 tablet by [facility] tablet 00:00: mouth [place] 00 every Medical morning. [facility] levothyroxi 2021-0 Yes [id number] 100ug Take 1 [facility] ne 100 mcg 5-24 tablet by [facility] tablet 00:00: mouth [place] 00 every Medical morning. Branch levothyroxi 2021-0 Yes [id number] 100ug Take 1 [facility] ne 100 mcg 5-24 tablet by [facility] tablet 00:00: mouth [place] 00 every Medical morning. Branch levothyroxi 2021-0 Yes [id number] 100ug Take 1 [facility] ne 100 mcg 5-24 tablet by [facility] tablet 00:00: mouth [place] 00 every Medical morning. Branch levothyroxi 2021-0 Yes [id number] 100ug Take 1 [facility] ne 100 mcg 5-24 tablet by [facility] tablet 00:00: mouth [place] 00 every Medical morning. Branch levothyroxi 2021-0 Yes [id number] 100ug Take 1 [facility] ne 100 mcg 5-24 tablet by [facility] tablet 00:00: mouth [place] 00 every Medical morning. Branch levothyroxi 2021-0 Yes [id number] 100ug Take 1 [facility] ne 100 mcg 5-24 tablet by [facility] tablet 00:00: mouth [place] 00 every Medical morning. [facility] levothyroxi 2021-0 Yes [id number] 100ug Take 1 [facility] ne 100 mcg 5-24 tablet by [facility] tablet 00:00: mouth [place] 00 every Medical morning. [facility] levothyroxi 2021-0 Yes [id number] 100ug Take 1 [facility] ne 100 mcg 5-24 tablet by [facility] tablet 00:00: mouth [place] 00 every Medical morning. Branch levothyroxi 2021-0 Yes [id number] 100ug Take 1 [facility] ne 100 mcg 5-24 tablet by [facility] tablet 00:00: mouth [place] 00 every Medical morning. Branch levothyroxi 2021-0 Yes [id number] 100ug Take 1 [facility] ne 100 mcg 5-24 tablet by [facility] tablet 00:00: mouth [place] 00 every Medical morning. Branch levothyroxi 2021-0 Yes [id number] 100ug Take 1 [facility] ne 100 mcg 5-24 tablet by [facility] tablet 00:00: mouth [place] 00 every Medical morning. Branch levothyroxi 2021-0 Yes [id number] 100ug Take 1 [facility] ne 100 mcg 5-24 tablet by [facility] tablet 00:00: mouth [place] 00 every Medical morning. Branch levothyroxi 2-0 Yes [id number] 100ug Take 1 [facility] ne 100 mcg 5-24 tablet by [facility] tablet 00:00: mouth [place] 00 every Medical morning. Branch levothyroxi 2-0 Yes [id number] 100ug Take 1 [facility] ne 100 mcg 5-24 tablet by [facility] tablet 00:00: mouth [place] 00 every Medical morning. Branch levothyroxi 2021-0 Yes [id number] 100ug Take 1 [facility] ne 100 mcg 5-24 tablet by [facility] tablet 00:00: mouth [place] 00 every Medical morning. Branch levothyroxi 2021-0 Yes [id number] 100ug Take 1 [facility] ne 100 mcg 5-24 tablet by [facility] tablet 00:00: mouth [place] 00 every Medical morning. Branch levothyroxi 2-0 Yes [id number] 100ug Take 1 [facility] ne 100 mcg 5-24 tablet by [facility] tablet 00:00: mouth [place] 00 every Medical morning. Branch levothyroxi 2-0 Yes [id number] 100ug Take 1 [facility] ne 100 mcg 5-24 tablet by [facility] tablet 00:00: mouth [place] 00 every Medical morning. Branch levothyroxi 2021-0 Yes [id number] 100ug Take 1 [facility] ne 100 mcg 5-24 tablet by [facility] tablet 00:00: mouth [place] 00 every Medical morning. [facility] levothyroxi 2021-0 Yes [id number] 100ug Take 1 [facility] ne 100 mcg 5-24 tablet by [facility] tablet 00:00: mouth [place] 00 every Medical morning. Branch levothyroxi 2021-0 Yes [id number] 100ug Take 1 [facility] ne 100 mcg 5-24 tablet by [facility] tablet 00:00: mouth [place] 00 every Medical morning. Branch levothyroxi 2021-0 Yes [id number] 100ug Take 1 [facility] ne 100 mcg 5-24 tablet by [facility] tablet 00:00: mouth [place] 00 every Medical morning. Branch levothyroxi 2-0 Yes [id number] 100ug Take 1 [facility] ne 100 mcg 5-24 tablet by [facility] tablet 00:00: mouth [place] 00 every Medical morning. [facility] levothyroxi 2-0 Yes [id number] 100ug Take 1 [facility] ne 100 mcg 5-24 tablet by [facility] tablet 00:00: mouth [place] 00 every Medical morning. Branch levothyroxi 2-0 Yes [id number] 100ug Take 1 [facility] ne 100 mcg 5-24 tablet by [facility] tablet 00:00: mouth [place] 00 every Medical morning. [facility] levothyroxi 2-0 Yes [id number] 100ug Take 1 [facility] ne 100 mcg 5-24 tablet by [facility] tablet 00:00: mouth [place] 00 every Medical morning. Branch levothyroxi 2-0 Yes [id number] 100ug Take 1 [facility] ne 100 mcg 5-24 tablet by [facility] tablet 00:00: mouth [place] 00 every Medical morning. Branch levothyroxi 2-0 Yes [id number] 100ug Take 1 [facility] ne 100 mcg 5-24 tablet by [facility] tablet 00:00: mouth [place] 00 every Medical morning. Branch levothyroxi 2-0 Yes [id number] 100ug Take 1 [facility] ne 100 mcg 5-24 tablet by [facility] tablet 00:00: mouth [place] 00 every Medical morning. Branch levothyroxi 2-0 Yes [id number] 100ug Take 1 [facility] ne 100 mcg 5-24 tablet by [facility] tablet 00:00: mouth [place] 00 every Medical morning. Branch levothyroxi 2-0 Yes [id number] 100ug Take 1 [facility] ne 100 mcg 5-24 tablet by [facility] tablet 00:00: mouth [place] 00 every Medical morning. Branch levothyroxi 2-0 Yes [id number] 100ug Take 1 [facility] ne 100 mcg 5-24 tablet by [facility] tablet 00:00: mouth [place] 00 every Medical morning. Branch levothyroxi 2-0 Yes [id number] 100ug Take 1 [facility] ne 100 mcg 5-24 tablet by [facility] tablet 00:00: mouth [place] 00 every Medical morning. Branch levothyroxi 2-0 Yes [id number] 100ug Take 1 [facility] ne 100 mcg 5-24 tablet by [facility] tablet 00:00: mouth [place] 00 every Medical morning. Branch levothyroxi 2-0 Yes [id number] 100ug Take 1 [facility] ne 100 mcg 5-24 tablet by [facility] tablet 00:00: mouth [place] 00 every Medical morning. Branch levothyroxi 2-0 Yes [id number] 100ug Take 1 [facility] ne 100 mcg 5-24 tablet by [facility] tablet 00:00: mouth [place] 00 every Medical morning. Branch levothyroxi 2-0 Yes [id number] 100ug Take 1 [facility] ne 100 mcg 5-24 tablet by [facility] tablet 00:00: mouth [place] 00 every Medical morning. Branch levothyroxi 2-0 Yes [id number] 100ug Take 1 [facility] ne 100 mcg 5-24 tablet by [facility] tablet 00:00: mouth [place] 00 every Medical morning. Branch levothyroxi 2022-0 Yes [id number] 100ug Take 1 [facility] ne 100 mcg 5-24 tablet by [facility] tablet 00:00: mouth [place] 00 every Medical morning. Branch levothyroxi 2-0 Yes [id number] 100ug Take 1 [facility] ne 100 mcg 5-24 tablet by [facility] tablet 00:00: mouth [place] 00 every Medical morning. Branch levothyroxi 2-0 Yes [id number] 100ug Take 1 [facility] ne 100 mcg 5-24 tablet by [facility] tablet 00:00: mouth [place] 00 every Medical morning. Branch levothyroxi 2-0 Yes [id number] 100ug Take 1 [facility] ne 100 mcg 5-24 tablet by [facility] tablet 00:00: mouth [place] 00 every Medical morning. Branch levothyroxi 2-0 Yes [id number] 100ug Take 1 [facility] ne 100 mcg 5-24 tablet by [facility] tablet 00:00: mouth [place] 00 every Medical morning. Branch levothyroxi 2-0 Yes [id number] 100ug Take 1 [facility] ne 100 mcg 5-24 tablet by [facility] tablet 00:00: mouth [place] 00 every Medical morning. Branch levothyroxi 2021-0 Yes [id number] 100ug Take 1 [facility] ne 100 mcg 5-24 tablet by [facility] tablet 00:00: mouth [place] 00 every Medical morning. Branch levothyroxi 2021-0 Yes [id number] 100ug Take 1 [facility] ne 100 mcg 5-24 tablet by [facility] tablet 00:00: mouth [place] 00 every Medical morning. Branch levothyroxi 2-0 Yes [id number] 100ug Take 1 [facility] ne 100 mcg 5-24 tablet by [facility] of tablet 00:00: mouth [place] 00 every Medical morning. Branch levothyroxi 2-0 Yes [id number] 100ug Take 1 [facility] ne 100 mcg 5-24 tablet by [facility] of tablet 00:00: mouth [place] 00 every Medical morning. Branch levothyroxi 2-0 Yes [id number] 100ug Take 1 [facility] ne 100 mcg 5-24 tablet by [facility] of tablet 00:00: mouth [place] 00 every Medical morning. Branch levothyroxi 2-0 Yes [id number] 100ug Take 1 [facility] ne 100 mcg 5-24 tablet by [facility] tablet 00:00: mouth [place] 00 every Medical morning. Branch levothyroxi 2022-0 Yes [id number] 100ug Take 1 [facility] ne 100 mcg 5-24 tablet by [facility] of tablet 00:00: mouth [place] 00 every Medical morning. Branch levothyroxi 2-0 Yes [id number] 100ug Take 1 [facility] ne 100 mcg 5-24 tablet by [facility] of tablet 00:00: mouth [place] 00 every Medical morning. Branch levothyroxi 2-0 Yes [id number] 100ug Take 1 [facility] ne 100 mcg 5-24 tablet by [facility] of tablet 00:00: mouth [place] 00 every Medical morning. Branch levothyroxi 2-0 Yes [id number] 100ug Take 1 [facility] ne 100 mcg 5-24 tablet by [facility] of tablet 00:00: mouth [place] 00 every Medical morning. Branch levothyroxi 2-0 Yes [id number] 100ug Take 1 [facility] ne 100 mcg 5-24 tablet by [facility] of tablet 00:00: mouth [place] 00 every Medical morning. Branch levothyroxi 2-0 Yes [id number] 100ug Take 1 [facility] ne 100 mcg 5-24 tablet by [facility] of tablet 00:00: mouth [place] 00 every Medical morning. Branch levothyroxi 2021-0 Yes [id number] 100ug Take 1 [facility] ne 100 mcg 5-24 tablet by [facility] of tablet 00:00: mouth [place] 00 every Medical morning. Branch levothyroxi 2021-0 Yes [id number] 100ug Take 1 [facility] ne 100 mcg 5-24 tablet by [facility] of tablet 00:00: mouth [place] 00 every Medical morning. Branch levothyroxi 2-0 Yes [id number] 100ug Take 1 [facility] ne 100 mcg 5-24 tablet by [facility] of tablet 00:00: mouth [place] 00 every Medical morning. Branch levothyroxi 2-0 Yes [id number] 100ug Take 1 [facility] ne 100 mcg 5-24 tablet by [facility] of tablet 00:00: mouth [place] 00 every Medical morning. Branch levothyroxi 2022-0 Yes [id number] 100ug Take 1 [facility] ne 100 mcg 5-24 tablet by [facility] of tablet 00:00: mouth [place] 00 every Medical morning. Branch levothyroxi 2022-0 Yes [id number] 100ug Take 1 [facility] ne 100 mcg 5-24 tablet by [facility] of tablet 00:00: mouth [place] 00 every Medical morning. Branch levothyroxi 2022-0 Yes [id number] 100ug Take 1 [facility] ne 100 mcg 5-24 tablet by [facility] of tablet 00:00: mouth [place] 00 every Medical morning. Branch levothyroxi 2021-0 Yes [id number] 100ug Take 1 [facility] ne 100 mcg 5-24 tablet by [facility] of tablet 00:00: mouth [place] 00 every Medical morning. Branch levothyroxi 2021-0 Yes [id number] 100ug Take 1 [facility] ne 100 mcg 5-24 tablet by [facility] of tablet 00:00: mouth [place] 00 every Medical morning. Branch levothyroxi 2021-0 Yes [id number] 100ug Take 1 [facility] ne 100 mcg 5-24 tablet by [facility] of tablet 00:00: mouth [place] 00 every Medical morning. Branch levothyroxi 2021-0 Yes [id number] 100ug Take 1 [facility] ne 100 mcg 5-24 tablet by [facility] of tablet 00:00: mouth [place] 00 every Medical morning. Branch levothyroxi 2021-0 Yes [id number] 100ug Take 1 [facility] ne 100 mcg 5-24 tablet by [facility] of tablet 00:00: mouth [place] 00 every Medical morning. Branch levothyroxi 2021-0 Yes [id number] 100ug Take 1 [facility] ne 100 mcg 5-24 tablet by [facility] of tablet 00:00: mouth [place] 00 every Medical morning. Branch levothyroxi 2021-0 Yes [id number] 100ug Take 1 [facility] ne 100 mcg 5-24 tablet by [facility] of tablet 00:00: mouth [place] 00 every Medical morning. Branch levothyroxi 2-0 Yes [id number] 100ug Take 1 [facility] ne 100 mcg 5-24 tablet by [facility] of tablet 00:00: mouth [place] 00 every Medical morning. Branch levothyroxi 2021-0 Yes [id number] 100ug Take 1 [facility] ne 100 mcg 5-24 tablet by [facility] of tablet 00:00: mouth [place] 00 every Medical morning. Branch levothyroxi 2021-0 Yes [id number] 100ug Take 1 [facility] ne 100 mcg 5-24 tablet by [facility] of tablet 00:00: mouth [place] 00 every Medical morning. Branch levothyroxi 2-0 Yes [id number] 100ug Take 1 [facility] ne 100 mcg 5-24 tablet by [facility] of tablet 00:00: mouth [place] 00 every Medical morning. Branch levothyroxi Yes [id number] 100ug Take 1 [facility] ne 100 mcg 5-24 tablet by [facility] of tablet 00:00: mouth [place] 00 every Medical morning. Branch levothyroxi Yes [id number] 100ug Take 1 [facility] ne 100 mcg 5-24 tablet by [facility] tablet 00:00: mouth [place] 00 every Medical morning. Branch levothyroxi 0 2022- No [id number] 100ug Take 1 [facility] ne 100 mcg 5-24 06-01 tablet by [facility] tablet 00:00: 00:00 mouth [place] 00 :00 every Medical morning. Branch levothyroxi 2022- No [id number] 100ug Take 1 [facility] ne 100 mcg 5-24 06-01 tablet by [facility] of tablet 00:00: 00:00 mouth [place] 00 :00 every Medical morning. Branch pantoprazol Yes [id number] 40mg Take 1 [facility] e 40 mg EC 5-03 tablet by [facility] of tablet 00:00: mouth [place] 00 daily. Medical Branch benzonatate Yes [id number] 200mg Take 1 [facility] 200 mg 5-03 capsule by [facility] of capsule 00:00: mouth 3 00 (three) Medical times [place] daily as needed for Cough. And to decrease gag reflex with episodes of vomiting. lidocaine-p Yes [id number] Rub over [facility] rilocaine 5-03 port site [facility] o f 2.5-2.5 % 00:00: before [place] cream 00 accessing. Medical Branch zaleplon 10 Yes [id number] 10mg Take 1 [facility] mg capsule 5-03 capsule by [facility] of 00:00: mouth at [place] 00 bedtime. Medical Branch XIFAXAN 550 Yes 550mg Take 550 [facility] mg tablet 5-03 mg by [facility] of 00:00: mouth 3 00 (three) Medical times [place] daily. Has not started as of 11/30 pantoprazol Yes [id number] 40mg Take 1 [facility] e 40 mg EC 5-03 tablet by [facility] of tablet 00:00: mouth [place] 00 daily. Medical Branch benzonatate Yes [id number] 200mg Take 1 [facility] 200 mg 5-03 capsule by [facility] of capsule 00:00: mouth (three) Medical times Branch daily as needed for Cough. And to decrease gag reflex with episodes of vomiting. lidocaine-p Yes [id number] Rub over [facility] rilocaine 5-03 port site [facility] o f 2.5-2.5 % 00:00: before [place] cream 00 accessing. Medical Branch zaleplon 10 Yes [id number] 10mg Take 1 [facility] mg capsule 5-03 capsule by [facility] of 00:00: mouth at [place] 00 bedtime. Medical Branch XIFAXAN 550 Yes 550mg Take 550 [facility] n[facility] mg tablet 5-03 mg by [facility] of 00:00: mouth 3 (three) Medical times Branch daily. Has not started as of 11/30 pantoprazol Yes [id number] 40mg Take 1 [facility] e 40 mg EC 5-03 tablet by [facility] of tablet 00:00: mouth [place] 00 daily. Medical Branch benzonatate Yes [id number] 200mg Take 1 [facility] 200 mg 5-03 capsule by [facility] of capsule 00:00: mouth (three) Medical times Branch daily as needed for Cough. And to decrease gag reflex with episodes of vomiting. lidocaine-p Yes [id number] Rub over [facility] rilocaine 5-03 port site [facility] o f 2.5-2.5 % 00:00: before [place] cream 00 accessing. Medical Branch zaleplon 10 Yes [id number] 10mg Take 1 [facility] mg capsule 5-03 capsule by [facility] of 00:00: mouth at [place] 00 bedtime. Medical Branch XIFAXAN 550 Yes 550mg Take 550 [facility] nivers mg tablet 5-03 mg by [facility] of 00:00: mouth 3 (three) Medical times Branch daily. Has not started as of 11/30 pantoprazol Yes [id number] 40mg Take 1 [facility] e 40 mg EC 5-03 tablet by [facility] of tablet 00:00: mouth [place] 00 daily. Medical Branch benzonatate Yes [id number] 200mg Take 1 [facility] 200 mg 5-03 capsule by [facility] of capsule 00:00: mouth (three) Medical times Branch daily as needed for Cough. And to decrease gag reflex with episodes of vomiting. lidocaine-p Yes [id number] Rub over [facility] rilocaine 5-03 port site [facility] o f 2.5-2.5 % 00:00: before [place] cream 00 accessing. Medical Branch zaleplon 10 Yes [id number] 10mg Take 1 [facility] mg capsule 5-03 capsule by [facility] of 00:00: mouth at [place] 00 bedtime. Medical Branch XIFAXAN 550 Yes 550mg Take 550 [facility] nivers mg tablet 5-03 mg by ity of 00:00: mouth 3 (three) Medical times Branch daily. Has not started as of 11/30 pantoprazol Yes [id number] 40mg Take 1 [facility] e 40 mg EC 5-03 tablet by [facility] of tablet 00:00: mouth [place] 00 daily. Medical Branch benzonatate Yes [id number] 200mg Take 1 [facility] 200 mg 5-03 capsule by [facility] of capsule 00:00: mouth (three) Medical times Branch daily as needed for Cough. And to decrease gag reflex with episodes of vomiting. lidocaine-p Yes [id number] Rub over [facility] rilocaine 5-03 port site [facility] o f 2.5-2.5 % 00:00: before [place] cream 00 accessing. Medical Branch zaleplon 10 Yes [id number] 10mg Take 1 [facility] mg capsule 5-03 capsule by [facility] of 00:00: mouth at [place] bedtime. Medical Branch XIFAXAN 550 Yes 550mg Take 550 [facility] nivers mg tablet 5-03 mg by ity of 00:00: mouth 3 (three) Medical times Branch daily. Has not started as of 11/30 pantoprazol Yes [id number] 40mg Take 1 [facility] e 40 mg EC 5-03 tablet by [facility] of tablet 00:00: mouth [place] 00 daily. Medical Branch benzonatate Yes [id number] 200mg Take 1 [facility] 200 mg 5-03 capsule by [facility] of capsule 00:00: mouth 3 (three) Medical times Branch daily as needed for Cough. And to decrease gag reflex with episodes of vomiting. zaleplon 10 Yes [id number] 10mg Take 1 [facility] mg capsule 5-03 capsule by [facility] of 00:00: mouth at [place] 00 bedtime. Medical Branch pantoprazol Yes [id number] 40mg Take 1 [facility] e 40 mg EC 5-03 tablet by [facility] of tablet 00:00: mouth [place] 00 daily. Medical Branch benzonatate Yes [id number] 200mg Take 1 [facility] 200 mg 5-03 capsule by [facility] of capsule 00:00: mouth 3 (three) Medical times Branch daily as needed for Cough. And to decrease gag reflex with episodes of vomiting. zaleplon 10 Yes [id number] 10mg Take 1 [facility] mg capsule 5-03 capsule by [facility] of 00:00: mouth at [place] 00 bedtime. Medical Branch pantoprazol Yes [id number] 40mg Take 1 [facility] e 40 mg EC 5-03 tablet by [facility] of tablet 00:00: mouth [place] 00 daily. Medical Branch benzonatate Yes [id number] 200mg Take 1 [facility] 200 mg 5-03 capsule by [facility] of capsule 00:00: mouth 3 (three) Medical times [place] daily as needed for Cough. And to decrease gag reflex with episodes of vomiting. zaleplon 10 Yes [id number] 10mg Take 1 [facility] mg capsule 5-03 capsule by [facility] of 00:00: mouth at [place] 00 bedtime. Medical Branch pantoprazol Yes [id number] 40mg Take 1 [facility] e 40 mg EC 5-03 tablet by [facility] of tablet 00:00: mouth [place] 00 daily. Medical Branch benzonatate Yes [id number] 200mg Take 1 [facility] 200 mg 5-03 capsule by [facility] of capsule 00:00: mouth 3 (three) Medical times [place] daily as needed for Cough. And to decrease gag reflex with episodes of vomiting. zaleplon 10 Yes [id number] 10mg Take 1 [facility] mg capsule 5-03 capsule by [facility] of 00:00: mouth at [place] 00 bedtime. Medical Branch pantoprazol Yes [id number] 40mg Take 1 [facility] e 40 mg EC 5-03 tablet by [facility] of tablet 00:00: mouth [place] 00 daily. Medical Branch benzonatate Yes [id number] 200mg Take 1 [facility] 200 mg 5-03 capsule by [facility] of capsule 00:00: mouth 3 00 (three) Medical times Branch daily as needed for Cough. And to decrease gag reflex with episodes of vomiting. zaleplon 10 Yes [id number] 10mg Take 1 [facility] mg capsule 5-03 capsule by [facility] of 00:00: mouth at [place] 00 bedtime. Medical Branch pantoprazol Yes [id number] 40mg Take 1 [facility] e 40 mg EC 5-03 tablet by [facility] of tablet 00:00: mouth [place] 00 daily. Medical Branch benzonatate Yes [id number] 200mg Take 1 [facility] 200 mg 5-03 capsule by [facility] of capsule 00:00: mouth 3 (three) Medical times Branch daily as needed for Cough. And to decrease gag reflex with episodes of vomiting. zaleplon 10 Yes [id number] 10mg Take 1 [facility] mg capsule 5-03 capsule by [facility] of 00:00: mouth at [place] 00 bedtime. Medical Branch pantoprazol Yes [id number] 40mg Take 1 [facility] e 40 mg EC 5-03 tablet by [facility] of tablet 00:00: mouth [place] 00 daily. Medical Branch benzonatate Yes [id number] 200mg Take 1 [facility] 200 mg 5-03 capsule by [facility] of capsule 00:00: mouth 3 00 (three) Medical times Branch daily as needed for Cough. And to decrease gag reflex with episodes of vomiting. zaleplon 10 Yes [id number] 10mg Take 1 [facility] mg capsule 5-03 capsule by [facility] of 00:00: mouth at [place] 00 bedtime. Medical Branch pantoprazol Yes [id number] 40mg Take 1 [facility] e 40 mg EC 5-03 tablet by [facility]y of tablet 00:00: mouth [place] 00 daily. Medical Branch benzonatate Yes [id number] 200mg Take 1 [facility] 200 mg 5-03 capsule by [facility] of capsule 00:00: mouth 3 00 (three) Medical times Branch daily as needed for Cough. And to decrease gag reflex with episodes of vomiting. zaleplon 10 Yes [id number] 10mg Take 1 [facility] mg capsule 5-03 capsule by [facility] of 00:00: mouth at [place] 00 bedtime. Medical Branch pantoprazol Yes [id number] 40mg Take 1 [facility] e 40 mg EC 5-03 tablet by [facility] of tablet 00:00: mouth [place] 00 daily. Medical Branch benzonatate Yes [id number] 200mg Take 1 [facility] 200 mg 5-03 capsule by [facility] of capsule 00:00: mouth 3 (three) Medical times [place] daily as needed for Cough. And to decrease gag reflex with episodes of vomiting. zaleplon 10 Yes [id number] 10mg Take 1 [facility] mg capsule 5-03 capsule by [facility] of 00:00: mouth at [place] 00 bedtime. Medical Branch pantoprazol Yes [id number] 40mg Take 1 [facility] e 40 mg EC 5-03 tablet by [facility] of tablet 00:00: mouth [place] 00 daily. Medical Branch benzonatate Yes [id number] 200mg Take 1 [facility] 200 mg 5-03 capsule by [facility]y of capsule 00:00: mouth (three) Medical times [place] daily as needed for Cough. And to decrease gag reflex with episodes of vomiting. zaleplon 10 Yes [id number] 10mg Take 1 [facility] mg capsule 5-03 capsule by [facility]y of 00:00: mouth at [place] 00 bedtime. Medical Branch pantoprazol Yes [id number] 40mg Take 1 [facility] e 40 mg EC 5-03 tablet by ity of tablet 00:00: mouth [place] 00 daily. Medical Branch benzonatate Yes [id number] 200mg Take 1 [facility] 200 mg 5-03 capsule by ity of capsule 00:00: mouth 3 (three) Medical times [place] daily as needed for Cough. And to decrease gag reflex with episodes of vomiting. zaleplon 10 Yes [id number] 10mg Take 1 [facility] mg capsule 5-03 capsule by ity of 00:00: mouth at [place] 00 bedtime. Medical Branch pantoprazol Yes [id number] 40mg Take 1 [facility] e 40 mg EC 5-03 tablet by ity of tablet 00:00: mouth [place] 00 daily. Medical Branch benzonatate Yes [id number] 200mg Take 1 [facility] 200 mg 5-03 capsule by [facility]y of capsule 00:00: mouth 3 (three) Medical times Branch daily as needed for Cough. And to decrease gag reflex with episodes of vomiting. zaleplon 10 Yes [id number] 10mg Take 1 [facility] mg capsule 5-03 capsule by [facility]y of 00:00: mouth at [place] 00 bedtime. Medical Branch pantoprazol Yes [id number] 40mg Take 1 [facility] e 40 mg EC 5-03 tablet by ity of tablet 00:00: mouth [place] 00 daily. Medical Branch benzonatate Yes [id number] 200mg Take 1 [facility] 200 mg 5-03 capsule by ity of capsule 00:00: mouth 3 (three) Medical times Branch daily as needed for Cough. And to decrease gag reflex with episodes of vomiting. zaleplon 10 Yes [id number] 10mg Take 1 [facility] capsule [facility]-03 capsule by [facility] 00:00: mouth at [place] 00 bedtime. [facility] pantoprazol Yes [id number] 40mg Take 1 [facility] e 40 mg EC 5-03 tablet by [facility] tablet 00:00: mouth [place] 00 daily. [facility] benzonatate Yes [id number] 200mg Take 1 [facility] 200 mg 5-03 capsule by [facility] capsule 00:00: mouth 3 (three) Medical times [place] daily as needed for Cough. And to decrease gag reflex with episodes of vomiting. zaleplon 10 Yes [id number] 10mg Take 1 [facility] mg capsule 5-03 capsule by [facility] 00:00: mouth at [place] 00 bedtime. [facility] pantoprazol Yes [id number] 40mg Take 1 [facility] e 40 mg EC 5-03 tablet by [facility] tablet 00:00: mouth [place] 00 daily. [facility] benzonatate Yes [id number] 200mg Take 1 [facility] 200 mg 5-03 capsule by [facility] capsule 00:00: mouth 3 (three) Medical times [facility] daily as needed for Cough. And to decrease gag reflex with episodes of vomiting. zaleplon 10 Yes [id number] 10mg Take 1 [facility] mg capsule 5-03 capsule by [facility] 00:00: mouth at [place] 00 bedtime. [facility] pantoprazol Yes [id number] 40mg Take 1 [facility] e 40 mg EC 5-03 tablet by [facility] tablet 00:00: mouth [place] 00 daily. [facility] benzonatate Yes [id number] 200mg Take 1 [facility] 200 mg 5-03 capsule by [facility] capsule 00:00: mouth 3 (three) Medical times [facility] daily as needed for Cough. And to decrease gag reflex with episodes of vomiting. zaleplon 10 Yes [id number] 10mg Take 1 [facility] mg capsule 5-03 capsule by [facility] 00:00: mouth at [place] 00 bedtime. [facility] pantoprazol Yes [id number] 40mg Take 1 [facility] e 40 mg EC 5-03 tablet by [facility] tablet 00:00: mouth [place] 00 daily. [facility] benzonatate Yes [id number] 200mg Take 1 [facility] 200 mg 5-03 capsule by [facility] capsule 00:00: mouth 3 (three) Medical times [place] daily as needed for Cough. And to decrease gag reflex with episodes of vomiting. zaleplon 10 Yes [id number] 10mg Take 1 [facility] mg capsule 5-03 capsule by [facility] 00:00: mouth at [place] 00 bedtime. [facility] pantoprazol Yes [id number] 40mg Take 1 [facility] e 40 mg EC 5-03 tablet by [facility] tablet 00:00: mouth [place] 00 daily. [facility] benzonatate Yes [id number] 200mg Take 1 [facility] 200 mg 5-03 capsule by [facility] capsule 00:00: mouth 3 (three) Medical times [place] daily as needed for Cough. And to decrease gag reflex with episodes of vomiting. zaleplon 10 Yes [id number] 10mg Take 1 [facility] mg capsule 5-03 capsule by [facility] 00:00: mouth at [place] 00 bedtime. [facility] pantoprazol Yes [id number] 40mg Take 1 [facility] e 40 mg EC 5-03 tablet by [facility] tablet 00:00: mouth [place] 00 daily. [facility] benzonatate Yes [id number] 200mg Take 1 [facility] 200 mg 5-03 capsule by [facility] capsule 00:00: mouth 3 [place] 00 (three) Medical times [facility] daily as needed for Cough. And to decrease gag reflex with episodes of vomiting. zaleplon 10 Yes [id number] 10mg Take 1 [facility] mg capsule 5-03 capsule by [facility] 00:00: mouth at [place] 00 bedtime. [facility] pantoprazol Yes [id number] 40mg Take 1 [facility] 40 mg EC 5-03 tablet by [facility] tablet 00:00: mouth [place] 00 daily. [facility] benzonatate Yes [id number] 200mg Take 1 [facility] 200 mg 5-03 capsule by [facility] capsule 00:00: mouth 3 (three) Medical times [facility] daily as needed for Cough. And to decrease gag reflex with episodes of vomiting. zaleplon 10 Yes [id number] 10mg Take 1 [facility] mg capsule 5-03 capsule by [facility] 00:00: mouth at [place] 00 bedtime. [facility] pantoprazol Yes [id number] 40mg Take 1 [facility] e 40 mg EC 5-03 tablet by [facility] tablet 00:00: mouth [place] 00 daily. [facility] benzonatate Yes [id number] 200mg Take 1 [facility] 200 mg 5-03 capsule by [facility] capsule 00:00: mouth 3 (three) Medical times [place] daily as needed for Cough. And to decrease gag reflex with episodes of vomiting. zaleplon 10 Yes [id number] 10mg Take 1 [facility] mg capsule 5-03 capsule by [facility] 00:00: mouth at [place] 00 bedtime. [facility] pantoprazol Yes [id number] 40mg Take 1 [facility] e 40 mg EC 5-03 tablet by [facility] tablet 00:00: mouth [place] 00 daily. [facility] benzonatate Yes [id number] 200mg Take 1 [facility] 200 mg 5-03 capsule by [facility] capsule 00:00: mouth 3 (three) Medical times [facility] daily as needed for Cough. And to decrease gag reflex with episodes of vomiting. zaleplon 10 Yes [id number] 10mg Take 1 [facility] mg capsule 5-03 capsule by [facility] 00:00: mouth at [place] 00 bedtime. [facility] pantoprazol Yes [id number] 40mg Take 1 [facility] e 40 mg EC 5-03 tablet by [facility] tablet 00:00: mouth [place] 00 daily. [facility] benzonatate Yes [id number] 200mg Take 1 [facility] 200 mg 5-03 capsule by [facility] capsule 00:00: mouth 3 (three) Medical times [place] daily as needed for Cough. And to decrease gag reflex with episodes of vomiting. zaleplon 10 Yes [id number] 10mg Take 1 [facility] mg capsule 5-03 capsule by [facility] 00:00: mouth at [place] 00 bedtime. [facility] pantoprazol Yes [id number] 40mg Take 1 [facility] e 40 mg EC 5-03 tablet by [facility] tablet 00:00: mouth [place] 00 daily. [facility] benzonatate Yes [id number] 200mg Take 1 [facility] 200 mg 5-03 capsule by [facility] capsule 00:00: mouth (three) Medical times [place] daily as needed for Cough. And to decrease gag reflex with episodes of vomiting. zaleplon 10 Yes [id number] 10mg Take 1 [facility] mg capsule 5-03 capsule by [facility] 00:00: mouth at 00 bedtime. [facility] pantoprazol Yes [id number] 40mg Take 1 [facility] e 40 mg EC 5-03 tablet by [facility] tablet 00:00: mouth [place] 00 daily. [facility] benzonatate Yes [id number] 200mg Take 1 [facility] 200 mg 5-03 capsule by [facility] capsule 00:00: mouth (three) Medical times [place] daily as needed for Cough. And to decrease gag reflex with episodes of vomiting. zaleplon 10 Yes [id number] 10mg Take 1 [facility] mg capsule 5-03 capsule by [facility] 00:00: mouth at [place] 00 bedtime. [facility] pantoprazol Yes [id number] 40mg Take 1 [facility] e 40 mg EC 5-03 tablet by [facility] tablet 00:00: mouth [place] 00 daily. [facility] benzonatate Yes [id number] 200mg Take 1 [facility] 200 mg 5-03 capsule by [facility] capsule 00:00: mouth 3 (three) Medical times [facility] daily as needed for Cough. And to decrease gag reflex with episodes of vomiting. zaleplon 10 Yes [id number] 10mg Take 1 [facility] mg capsule 5-03 capsule by [facility] 00:00: mouth at [place] 00 bedtime. [facility] pantoprazol Yes [id number] 40mg Take 1 [facility] e 40 mg EC 5-03 tablet by [facility] tablet 00:00: mouth [place] 00 daily. [facility] benzonatate Yes [id number] 200mg Take 1 [facility] 200 mg 5-03 capsule by [facility] capsule 00:00: mouth 3 [place] 00 (three) Medical times [facility] daily as needed for Cough. And to decrease gag reflex with episodes of vomiting. zaleplon 10 Yes [id number] 10mg Take 1 [facility] mg capsule 5-03 capsule by [facility] 00:00: mouth at [place] 00 bedtime. [facility] pantoprazol Yes [id number] 40mg Take 1 [facility] e 40 mg EC 5-03 tablet by [facility] tablet 00:00: mouth [place] 00 daily. [facility] benzonatate Yes [id number] 200mg Take 1 [facility] 200 mg 5-03 capsule by [facility] capsule 00:00: mouth 3 00 (three) Medical times [facility] daily as needed for Cough. And to decrease gag reflex with episodes of vomiting. zaleplon 10 Yes [id number] 10mg Take 1 [facility] mg capsule 5-03 capsule by [facility] 00:00: mouth at [place] 00 bedtime. [facility] pantoprazol Yes [id number] 40mg Take 1 [facility] e 40 mg EC 5-03 tablet by [facility] tablet 00:00: mouth [place] 00 daily. [facility] benzonatate Yes [id number] 200mg Take 1 [facility] 200 mg 5-03 capsule by [facility] capsule 00:00: mouth 3 00 (three) Medical times [facility] daily as needed for Cough. And to decrease gag reflex with episodes of vomiting. zaleplon 10 Yes [id number] 10mg Take 1 [facility] mg capsule 5-03 capsule by [facility] 00:00: mouth at [place] 00 bedtime. [facility] pantoprazol Yes [id number] 40mg Take 1 [facility] e 40 mg EC 5-03 tablet by [facility] tablet 00:00: mouth [place] 00 daily. [facility] benzonatate Yes [id number] 200mg Take 1 [facility] 200 mg 5-03 capsule by [facility] capsule 00:00: mouth 3 (three) Medical times [facility] daily as needed for Cough. And to decrease gag reflex with episodes of vomiting. zaleplon 10 Yes [id number] 10mg Take 1 [facility] mg capsule 5-03 capsule by [facility] 00:00: mouth at [place] 00 bedtime. [facility] pantoprazol Yes [id number] 40mg Take 1 [facility] e 40 mg EC 5-03 tablet by [facility] tablet 00:00: mouth [place] 00 daily. [facility] benzonatate Yes [id number] 200mg Take 1 [facility] 200 mg 5-03 capsule by [facility] capsule 00:00: mouth 3 (three) Medical times [place] daily as needed for Cough. And to decrease gag reflex with episodes of vomiting. zaleplon 10 Yes [id number] 10mg Take 1 [facility] mg capsule 5-03 capsule by [facility] 00:00: mouth at [place] 00 bedtime. [facility] pantoprazol Yes [id number] 40mg Take 1 [facility] e 40 mg EC 5-03 tablet by [facility] tablet 00:00: mouth [place] 00 daily. [facility] benzonatate Yes [id number] 200mg Take 1 [facility] 200 mg 5-03 capsule by [facility] capsule 00:00: mouth 3 00 (three) Medical times [place] daily as needed for Cough. And to decrease gag reflex with episodes of vomiting. zaleplon 10 Yes [id number] 10mg Take 1 [facility] mg capsule 5-03 capsule by [facility] 00:00: mouth at [place] 00 bedtime. [facility] pantoprazol Yes [id number] 40mg Take 1 [facility] e 40 mg EC 5-03 tablet by [facility] tablet 00:00: mouth [place] 00 daily. [facility] benzonatate Yes [id number] 200mg Take 1 [facility] 200 mg 5-03 capsule by [facility] capsule 00:00: mouth 3 00 (three) Medical times [place] daily as needed for Cough. And to decrease gag reflex with episodes of vomiting. zaleplon 10 Yes [id number] 10mg Take 1 [facility] mg capsule 5-03 capsule by [facility] 00:00: mouth at [place] 00 bedtime. [facility] pantoprazol Yes [id number] 40mg Take 1 [facility] e 40 mg EC 5-03 tablet by [facility] tablet 00:00: mouth [place] 00 daily. [facility] benzonatate Yes [id number] 200mg Take 1 [facility] 200 mg 5-03 capsule by [facility] capsule 00:00: mouth 3 [place] 00 (three) Medical times [facility] daily as needed for Cough. And to decrease gag reflex with episodes of vomiting. zaleplon 10 Yes [id number] 10mg Take 1 [facility] mg capsule 5-03 capsule by [facility] 00:00: mouth at [place] 00 bedtime. [facility] pantoprazol Yes [id number] 40mg Take 1 [facility] e 40 mg EC 5-03 tablet by [facility] tablet 00:00: mouth [place] 00 daily. [facility] benzonatate Yes [id number] 200mg Take 1 [facility] 200 mg 5-03 capsule by [facility] capsule 00:00: mouth 3 00 (three) Medical times [place] daily as needed for Cough. And to decrease gag reflex with episodes of vomiting. zaleplon 10 Yes [id number] 10mg Take 1 [facility] mg capsule 5-03 capsule by [facility] 00:00: mouth at [place] 00 bedtime. [facility] pantoprazol Yes [id number] 40mg Take 1 [facility] e 40 mg EC 5-03 tablet by [facility] tablet 00:00: mouth [place] 00 daily. [facility] benzonatate Yes [id number] 200mg Take 1 [facility] 200 mg 5-03 capsule by [facility] capsule 00:00: mouth 3 00 (three) Medical times [facility] daily as needed for Cough. And to decrease gag reflex with episodes of vomiting. zaleplon 10 Yes [id number] 10mg Take 1 [facility] mg capsule 5-03 capsule by [facility] 00:00: mouth at [place] 00 bedtime. [facility] pantoprazol Yes [id number] 40mg Take 1 [facility] e 40 mg EC 5-03 tablet by [facility] tablet 00:00: mouth [place] 00 daily. [facility] benzonatate Yes [id number] 200mg Take 1 [facility] 200 mg 5-03 capsule by [facility] capsule 00:00: mouth 3 (three) Medical times [facility] daily as needed for Cough. And to decrease gag reflex with episodes of vomiting. zaleplon 10 Yes [id number] 10mg Take 1 [facility] mg capsule 5-03 capsule by [facility] 00:00: mouth at [place] 00 bedtime. [facility] pantoprazol Yes [id number] 40mg Take 1 [facility] e 40 mg EC 5-03 tablet by [facility] tablet 00:00: mouth [place] 00 daily. [facility] benzonatate Yes [id number] 200mg Take 1 [facility] 200 mg 5-03 capsule by [facility] capsule 00:00: mouth 3 (three) Medical times [place] daily as needed for Cough. And to decrease gag reflex with episodes of vomiting. zaleplon 10 Yes [id number] 10mg Take 1 [facility] mg capsule 5-03 capsule by [facility] 00:00: mouth at [place] 00 bedtime. [facility] pantoprazol Yes [id number] 40mg Take 1 [facility] e 40 mg EC 5-03 tablet by [facility] tablet 00:00: mouth [place] 00 daily. [facility] benzonatate Yes [id number] 200mg Take 1 [facility] 200 mg 5-03 capsule by [facility] capsule 00:00: mouth 3 (three) Medical times [place] daily as needed for Cough. And to decrease gag reflex with episodes of vomiting. zaleplon 10 Yes [id number] 10mg Take 1 [facility] mg capsule 5-03 capsule by [facility] 00:00: mouth at [place] 00 bedtime. [facility] pantoprazol Yes [id number] 40mg Take 1 [facility] e 40 mg EC 5-03 tablet by [facility] tablet 00:00: mouth [place] 00 daily. [facility] benzonatate Yes [id number] 200mg Take 1 [facility] 200 mg 5-03 capsule by [facility] capsule 00:00: mouth 3 00 (three) Medical times [facility] daily as needed for Cough. And to decrease gag reflex with episodes of vomiting. zaleplon 10 Yes [id number] 10mg Take 1 [facility] mg capsule 5-03 capsule by [facility] 00:00: mouth at [place] 00 bedtime. [facility] pantoprazol Yes [id number] 40mg Take 1 [facility] e 40 mg EC 5-03 tablet by [facility] tablet 00:00: mouth [place] 00 daily. [facility] benzonatate Yes [id number] 200mg Take 1 [facility] 200 mg 5-03 capsule by [facility] capsule 00:00: mouth 3 (three) Medical times [facility] daily as needed for Cough. And to decrease gag reflex with episodes of vomiting. zaleplon 10 Yes [id number] 10mg Take 1 [facility] mg capsule 5-03 capsule by [facility] 00:00: mouth at [place] 00 bedtime. [facility] pantoprazol Yes [id number] 40mg Take 1 [facility] e 40 mg EC 5-03 tablet by [facility] tablet 00:00: mouth [place] 00 daily. [facility] benzonatate Yes [id number] 200mg Take 1 [facility] 200 mg 5-03 capsule by [facility] capsule 00:00: mouth 3 (three) Medical times [place] daily as needed for Cough. And to decrease gag reflex with episodes of vomiting. zaleplon 10 Yes [id number] 10mg Take 1 [facility] mg capsule 5-03 capsule by [facility] 00:00: mouth at [place] 00 bedtime. [facility] pantoprazol Yes [id number] 40mg Take 1 [facility] e 40 mg EC 5-03 tablet by [facility] tablet 00:00: mouth [place] 00 daily. [facility] benzonatate Yes [id number] 200mg Take 1 [facility] 200 mg 5-03 capsule by [facility] capsule 00:00: mouth 3 (three) Medical times [place] daily as needed for Cough. And to decrease gag reflex with episodes of vomiting. zaleplon 10 Yes [id number] 10mg Take 1 [facility] mg capsule 5-03 capsule by [facility] 00:00: mouth at [place] 00 bedtime. [facility] pantoprazol Yes [id number] 40mg Take 1 [facility] e 40 mg EC 5-03 tablet by [facility] tablet 00:00: mouth [place] 00 daily. [facility] benzonatate Yes [id number] 200mg Take 1 [facility] 200 mg 5-03 capsule by [facility] capsule 00:00: mouth 3 (three) Medical times [facility] daily as needed for Cough. And to decrease gag reflex with episodes of vomiting. zaleplon 10 Yes [id number] 10mg Take 1 [facility] mg capsule 5-03 capsule by [facility] 00:00: mouth at [place] 00 bedtime. [facility] pantoprazol Yes [id number] 40mg Take 1 [facility] e 40 mg EC 5-03 tablet by [facility] tablet 00:00: mouth [place] 00 daily. [facility] benzonatate Yes [id number] 200mg Take 1 [facility] 200 mg 5-03 capsule by [facility] capsule 00:00: mouth 3 (three) Medical times [facility] daily as needed for Cough. And to decrease gag reflex with episodes of vomiting. zaleplon 10 Yes [id number] 10mg Take 1 [facility] mg capsule 5-03 capsule by [facility] 00:00: mouth at [place] 00 bedtime. [facility] pantoprazol Yes [id number] 40mg Take 1 [facility] e 40 mg EC 5-03 tablet by [facility] tablet 00:00: mouth [place] 00 daily. [facility] benzonatate Yes [id number] 200mg Take 1 [facility] 200 mg 5-03 capsule by [facility] capsule 00:00: mouth 3 00 (three) Medical times [facility] daily as needed for Cough. And to decrease gag reflex with episodes of vomiting. zaleplon 10 Yes [id number] 10mg Take 1 [facility] mg capsule 5-03 capsule by [facility] 00:00: mouth at [place] 00 bedtime. [facility] pantoprazol Yes [id number] 40mg Take 1 [facility] e 40 mg EC 5-03 tablet by [facility] tablet 00:00: mouth [place] 00 daily. [facility] benzonatate Yes [id number] 200mg Take 1 [facility] 200 mg 5-03 capsule by [facility] capsule 00:00: mouth 3 00 (three) Medical times [facility] daily as needed for Cough. And to decrease gag reflex with episodes of vomiting. zaleplon 10 Yes [id number] 10mg Take 1 [facility] mg capsule 5-03 capsule by [facility] 00:00: mouth at [place] 00 bedtime. [facility] pantoprazol Yes [id number] 40mg Take 1 [facility] e 40 mg EC 5-03 tablet by [facility] tablet 00:00: mouth [place] 00 daily. [facility] benzonatate Yes [id number] 200mg Take 1 [facility] 200 mg 5-03 capsule by [facility] capsule 00:00: mouth 3 (three) Medical times [place] daily as needed for Cough. And to decrease gag reflex with episodes of vomiting. zaleplon 10 Yes [id number] 10mg Take 1 [facility] mg capsule 5-03 capsule by [facility] 00:00: mouth at [place] 00 bedtime. [facility] pantoprazol Yes [id number] 40mg Take 1 [facility] e 40 mg EC 5-03 tablet by [facility] tablet 00:00: mouth [place] 00 daily. [facility] benzonatate Yes [id number] 200mg Take 1 [facility] 200 mg 5-03 capsule by [facility] capsule 00:00: mouth (three) Medical times [place] daily as needed for Cough. And to decrease gag reflex with episodes of vomiting. zaleplon 10 Yes [id number] 10mg Take 1 [facility] mg capsule 5-03 capsule by [facility] 00:00: mouth at [place] 00 bedtime. [facility] pantoprazol Yes [id number] 40mg Take 1 [facility] e 40 mg EC 5-03 tablet by [facility] tablet 00:00: mouth [place] 00 daily. [facility] benzonatate Yes [id number] 200mg Take 1 [facility] 200 mg 5-03 capsule by [facility] capsule 00:00: mouth 3 (three) Medical times [place] daily as needed for Cough. And to decrease gag reflex with episodes of vomiting. zaleplon 10 Yes [id number] 10mg Take 1 [facility] mg capsule 5-03 capsule by [facility] 00:00: mouth at [place] 00 bedtime. [facility] pantoprazol Yes [id number] 40mg Take 1 [facility] e 40 mg EC 5-03 tablet by [facility] tablet 00:00: mouth [place] 00 daily. [facility] benzonatate Yes [id number] 200mg Take 1 [facility] 200 mg 5-03 capsule by [facility] capsule 00:00: mouth 3 (three) Medical times [facility] daily as needed for Cough. And to decrease gag reflex with episodes of vomiting. zaleplon 10 Yes [id number] 10mg Take 1 [facility] mg capsule 5-03 capsule by [facility] 00:00: mouth at [place] 00 bedtime. [facility] pantoprazol Yes [id number] 40mg Take 1 [facility] e 40 mg EC 5-03 tablet by [facility] tablet 00:00: mouth [place] 00 daily. [facility] benzonatate Yes [id number] 200mg Take 1 [facility] 200 mg 5-03 capsule by [facility] capsule 00:00: mouth 3 (three) Medical times [facility] daily as needed for Cough. And to decrease gag reflex with episodes of vomiting. zaleplon 10 Yes [id number] 10mg Take 1 [facility] mg capsule 5-03 capsule by [facility] 00:00: mouth at [place] 00 bedtime. [facility] pantoprazol Yes [id number] 40mg Take 1 [facility] e 40 mg EC 5-03 tablet by [facility] tablet 00:00: mouth [place] 00 daily. [facility] benzonatate Yes [id number] 200mg Take 1 [facility] 200 mg 5-03 capsule by [facility] capsule 00:00: mouth 3 (three) Medical times [place] daily as needed for Cough. And to decrease gag reflex with episodes of vomiting. zaleplon 10 Yes [id number] 10mg Take 1 [facility] mg capsule 5-03 capsule by [facility] 00:00: mouth at [place] 00 bedtime. [facility] pantoprazol Yes [id number] 40mg Take 1 [facility] e 40 mg EC 5-03 tablet by [facility] tablet 00:00: mouth [place] 00 daily. [facility] benzonatate Yes [id number] 200mg Take 1 [facility] 200 mg 5-03 capsule by [facility] capsule 00:00: mouth 3 (three) Medical times [facility] daily as needed for Cough. And to decrease gag reflex with episodes of vomiting. zaleplon 10 Yes [id number] 10mg Take 1 [facility] mg capsule 5-03 capsule by [facility] 00:00: mouth at [place] 00 bedtime. [facility] pantoprazol Yes [id number] 40mg Take 1 [facility] e 40 mg EC 5-03 tablet by [facility] tablet 00:00: mouth [place] 00 daily. [facility] benzonatate Yes [id number] 200mg Take 1 [facility] 200 mg 5-03 capsule by [facility] capsule 00:00: mouth 3 (three) Medical times [facility] daily as needed for Cough. And to decrease gag reflex with episodes of vomiting. zaleplon 10 Yes [id number] 10mg Take 1 [facility] mg capsule 5-03 capsule by [facility] 00:00: mouth at [place] 00 bedtime. [facility] pantoprazol Yes [id number] 40mg Take 1 [facility] e 40 mg EC 5-03 tablet by [facility] tablet 00:00: mouth [place] 00 daily. [facility] benzonatate Yes [id number] 200mg Take 1 [facility] 200 mg 5-03 capsule by [facility] capsule 00:00: mouth 3 (three) Medical times [facility] daily as needed for Cough. And to decrease gag reflex with episodes of vomiting. zaleplon 10 Yes [id number] 10mg Take 1 [facility] mg capsule 5-03 capsule by [facility] 00:00: mouth at [place] 00 bedtime. [facility] pantoprazol Yes [id number] 40mg Take 1 [facility] e 40 mg EC 5-03 tablet by [facility] tablet 00:00: mouth [place] 00 daily. [facility] benzonatate Yes [id number] 200mg Take 1 [facility] 200 mg 5-03 capsule by [facility] capsule 00:00: mouth 3 (three) Medical times [facility] daily as needed for Cough. And to decrease gag reflex with episodes of vomiting. zaleplon 10 Yes [id number] 10mg Take 1 [facility] mg capsule 5-03 capsule by [facility] 00:00: mouth at [place] 00 bedtime. [facility] pantoprazol Yes [id number] 40mg Take 1 [facility] e 40 mg EC 5-03 tablet by [facility] tablet 00:00: mouth [place] 00 daily. [facility] benzonatate Yes [id number] 200mg Take 1 [facility] 200 mg 5-03 capsule by [facility] capsule 00:00: mouth 3 [place] 00 (three) Medical times [facility] daily as needed for Cough. And to decrease gag reflex with episodes of vomiting. zaleplon 10 Yes [id number] 10mg Take 1 [facility] mg capsule 5-03 capsule by [facility] 00:00: mouth at [place] 00 bedtime. [facility] pantoprazol Yes [id number] 40mg Take 1 [facility] e 40 mg EC 5-03 tablet by [facility] tablet 00:00: mouth [place] 00 daily. [facility] benzonatate Yes [id number] 200mg Take 1 [facility] 200 mg 5-03 capsule by [facility] capsule 00:00: mouth 3 (three) Medical times [facility] daily as needed for Cough. And to decrease gag reflex with episodes of vomiting. zaleplon 10 Yes [id number] 10mg Take 1 [facility] mg capsule 5-03 capsule by [facility] 00:00: mouth at [place] 00 bedtime. [facility] pantoprazol Yes [id number] 40mg Take 1 [facility] e 40 mg EC 5-03 tablet by [facility] tablet 00:00: mouth [place] 00 daily. [facility] benzonatate Yes [id number] 200mg Take 1 [facility] 200 mg 5-03 capsule by [facility] capsule 00:00: mouth 3 (three) Medical times [place] daily as needed for Cough. And to decrease gag reflex with episodes of vomiting. zaleplon 10 Yes [id number] 10mg Take 1 [facility] mg capsule 5-03 capsule by [facility] 00:00: mouth at [place] 00 bedtime. [facility] pantoprazol Yes [id number] 40mg Take 1 [facility] e 40 mg EC 5-03 tablet by [facility] tablet 00:00: mouth [place] 00 daily. [facility] benzonatate Yes [id number] 200mg Take 1 [facility] 200 mg 5-03 capsule by [facility] capsule 00:00: mouth 3 (three) Medical times [facility] daily as needed for Cough. And to decrease gag reflex with episodes of vomiting. zaleplon 10 Yes [id number] 10mg Take 1 [facility] mg capsule 5-03 capsule by [facility] 00:00: mouth at [place] 00 bedtime. [facility] pantoprazol Yes [id number] 40mg Take 1 [facility] e 40 mg EC 5-03 tablet by [facility] tablet 00:00: mouth [place] 00 daily. [facility] benzonatate Yes [id number] 200mg Take 1 [facility] 200 mg 5-03 capsule by [facility] capsule 00:00: mouth 3 (three) Medical times [place] daily as needed for Cough. And to decrease gag reflex with episodes of vomiting. zaleplon 10 Yes [id number] 10mg Take 1 [facility] mg capsule 5-03 capsule by [facility] 00:00: mouth at [place] 00 bedtime. [facility] pantoprazol Yes [id number] 40mg Take 1 [facility] e 40 mg EC 5-03 tablet by [facility] tablet 00:00: mouth [place] 00 daily. [facility] benzonatate Yes [id number] 200mg Take 1 [facility] 200 mg 5-03 capsule by [facility] capsule 00:00: mouth 3 (three) Medical times [place] daily as needed for Cough. And to decrease gag reflex with episodes of vomiting. zaleplon 10 Yes [id number] 10mg Take 1 [facility] mg capsule 5-03 capsule by [facility] 00:00: mouth at [place] 00 bedtime. [facility] pantoprazol Yes [id number] 40mg Take 1 [facility] e 40 mg EC 5-03 tablet by [facility] tablet 00:00: mouth [place] 00 daily. [facility] benzonatate Yes [id number] 200mg Take 1 [facility] 200 mg 5-03 capsule by [facility] capsule 00:00: mouth (three) Medical times [place] daily as needed for Cough. And to decrease gag reflex with episodes of vomiting. zaleplon 10 Yes [id number] 10mg Take 1 [facility] capsule 5-03 capsule by [facility] 00:00: mouth at [place] 00 bedtime. [facility] pantoprazol Yes [id number] 40mg Take 1 [facility] e 40 mg EC 5-03 tablet by [facility] tablet 00:00: mouth [place] 00 daily. [facility] benzonatate Yes [id number] 200mg Take 1 [facility] 200 mg 5-03 capsule by [facility] capsule 00:00: mouth 3 (three) Medical times [place] daily as needed for Cough. And to decrease gag reflex with episodes of vomiting. zaleplon 10 Yes [id number] 10mg Take 1 [facility] mg capsule 5-03 capsule by [facility] 00:00: mouth at [place] 00 bedtime. [facility] pantoprazol Yes [id number] 40mg Take 1 [facility] e 40 mg EC 5-03 tablet by [facility] tablet 00:00: mouth [place] 00 daily. [facility] benzonatate Yes [id number] 200mg Take 1 [facility] 200 mg 5-03 capsule by [facility] capsule 00:00: mouth 3 [place] 00 (three) Medical times [facility] daily as needed for Cough. And to decrease gag reflex with episodes of vomiting. zaleplon 10 Yes [id number] 10mg Take 1 [facility] mg capsule 5-03 capsule by [facility] 00:00: mouth at [place] 00 bedtime. [facility] pantoprazol Yes [id number] 40mg Take 1 [facility] e 40 mg EC 5-03 tablet by [facility] tablet 00:00: mouth [place] 00 daily. [facility] benzonatate Yes [id number] 200mg Take 1 [facility] 200 mg 5-03 capsule by [facility] capsule 00:00: mouth 3 00 (three) Medical times [facility] daily as needed for Cough. And to decrease gag reflex with episodes of vomiting. zaleplon 10 Yes [id number] 10mg Take 1 [facility] mg capsule 5-03 capsule by [facility] 00:00: mouth at [place] 00 bedtime. [facility] pantoprazol Yes [id number] 40mg Take 1 [facility] e 40 mg EC 5-03 tablet by [facility] tablet 00:00: mouth [place] 00 daily. [facility] benzonatate Yes [id number] 200mg Take 1 [facility] 200 mg 5-03 capsule by [facility] capsule 00:00: mouth 3 00 (three) Medical times [facility] daily as needed for Cough. And to decrease gag reflex with episodes of vomiting. zaleplon 10 Yes [id number] 10mg Take 1 [facility] mg capsule 5-03 capsule by [facility] 00:00: mouth at [place] 00 bedtime. [facility] pantoprazol Yes [id number] 40mg Take 1 [facility] e 40 mg EC 5-03 tablet by [facility] tablet 00:00: mouth [place] 00 daily. [facility] benzonatate Yes [id number] 200mg Take 1 [facility] 200 mg 5-03 capsule by [facility] capsule 00:00: mouth 3 (three) Medical times [place] daily as needed for Cough. And to decrease gag reflex with episodes of vomiting. zaleplon 10 Yes [id number] 10mg Take 1 [facility] mg capsule 5-03 capsule by [facility] 00:00: mouth at [place] 00 bedtime. [facility] pantoprazol Yes [id number] 40mg Take 1 [facility] e 40 mg EC 5-03 tablet by [facility] tablet 00:00: mouth [place] 00 daily. [facility] benzonatate Yes [id number] 200mg Take 1 [facility] 200 mg 5-03 capsule by [facility] capsule 00:00: mouth 3 (three) Medical times [place] daily as needed for Cough. And to decrease gag reflex with episodes of vomiting. zaleplon 10 Yes [id number] 10mg Take 1 [facility] mg capsule 5-03 capsule by [facility] 00:00: mouth at [place] 00 bedtime. [facility] pantoprazol Yes [id number] 40mg Take 1 [facility] e 40 mg EC 5-03 tablet by [facility] tablet 00:00: mouth [place] 00 daily. [facility] benzonatate Yes [id number] 200mg Take 1 [facility] 200 mg 5-03 capsule by [facility] capsule 00:00: mouth 3 (three) Medical times [place] daily as needed for Cough. And to decrease gag reflex with episodes of vomiting. zaleplon 10 Yes [id number] 10mg Take 1 [facility] mg capsule 5-03 capsule by [facility] 00:00: mouth at [place] 00 bedtime. [facility] pantoprazol Yes [id number] 40mg Take 1 [facility] e 40 mg EC 5-03 tablet by [facility] tablet 00:00: mouth [place] 00 daily. [facility] benzonatate Yes [id number] 200mg Take 1 [facility] 200 mg 5-03 capsule by [facility] capsule 00:00: mouth 3 00 (three) Medical times [place] daily as needed for Cough. And to decrease gag reflex with episodes of vomiting. zaleplon 10 Yes [id number] 10mg Take 1 [facility] mg capsule 5-03 capsule by [facility] 00:00: mouth at [place] 00 bedtime. [facility] pantoprazol Yes [id number] 40mg Take 1 [facility] e 40 mg EC 5-03 tablet by [facility] tablet 00:00: mouth [place] 00 daily. [facility] benzonatate Yes [id number] 200mg Take 1 [facility] 200 mg 5-03 capsule by [facility] capsule 00:00: mouth 3 [place] 00 (three) Medical times [facility] daily as needed for Cough. And to decrease gag reflex with episodes of vomiting. zaleplon 10 Yes [id number] 10mg Take 1 [facility] mg capsule 5-03 capsule by [facility] 00:00: mouth at [place] 00 bedtime. [facility] pantoprazol Yes [id number] 40mg Take 1 [facility] e 40 mg EC 5-03 tablet by [facility] tablet 00:00: mouth [place] 00 daily. [facility] benzonatate Yes [id number] 200mg Take 1 [facility] 200 mg 5-03 capsule by [facility] capsule 00:00: mouth 3 00 (three) Medical times [place] daily as needed for Cough. And to decrease gag reflex with episodes of vomiting. zaleplon 10 Yes [id number] 10mg Take 1 [facility] mg capsule 5-03 capsule by [facility] 00:00: mouth at [place] 00 bedtime. [facility] pantoprazol Yes [id number] 40mg Take 1 [facility] e 40 mg EC 5-03 tablet by [facility] tablet 00:00: mouth [place] 00 daily. [facility] benzonatate Yes [id number] 200mg Take 1 [facility] 200 mg 5-03 capsule by [facility] capsule 00:00: mouth 3 00 (three) Medical times [facility] daily as needed for Cough. And to decrease gag reflex with episodes of vomiting. zaleplon 10 Yes [id number] 10mg Take 1 [facility] mg capsule 5-03 capsule by [facility] 00:00: mouth at [place] 00 bedtime. [facility] pantoprazol Yes [id number] 40mg Take 1 [facility] e 40 mg EC 5-03 tablet by [facility] tablet 00:00: mouth [place] 00 daily. [facility] benzonatate Yes [id number] 200mg Take 1 [facility] 200 mg 5-03 capsule by [facility] capsule 00:00: mouth 3 (three) Medical times [facility] daily as needed for Cough. And to decrease gag reflex with episodes of vomiting. zaleplon 10 Yes [id number] 10mg Take 1 [facility] mg capsule 5-03 capsule by [facility] 00:00: mouth at [place] 00 bedtime. [facility] pantoprazol Yes [id number] 40mg Take 1 [facility] e 40 mg EC 5-03 tablet by [facility] tablet 00:00: mouth [place] 00 daily. [facility] benzonatate Yes [id number] 200mg Take 1 [facility] 200 mg 5-03 capsule by [facility] capsule 00:00: mouth 3 (three) Medical times [place] daily as needed for Cough. And to decrease gag reflex with episodes of vomiting. zaleplon 10 Yes [id number] 10mg Take 1 [facility] mg capsule 5-03 capsule by [facility] 00:00: mouth at [place] 00 bedtime. [facility] pantoprazol Yes [id number] 40mg Take 1 [facility] e 40 mg EC 5-03 tablet by [facility] tablet 00:00: mouth [place] 00 daily. [facility] benzonatate Yes [id number] 200mg Take 1 [facility] 200 mg 5-03 capsule by [facility] capsule 00:00: mouth 3 00 (three) Medical times [place] daily as needed for Cough. And to decrease gag reflex with episodes of vomiting. zaleplon 10 Yes [id number] 10mg Take 1 [facility] mg capsule 5-03 capsule by [facility] 00:00: mouth at [place] 00 bedtime. [facility] pantoprazol Yes [id number] 40mg Take 1 [facility] e 40 mg EC 5-03 tablet by [facility] tablet 00:00: mouth [place] 00 daily. [facility] benzonatate Yes [id number] 200mg Take 1 [facility] 200 mg 5-03 capsule by [facility] capsule 00:00: mouth 3 00 (three) Medical times [facility] daily as needed for Cough. And to decrease gag reflex with episodes of vomiting. zaleplon 10 Yes [id number] 10mg Take 1 [facility] mg capsule 5-03 capsule by [facility] 00:00: mouth at [place] 00 bedtime. [facility] pantoprazol Yes [id number] 40mg Take 1 [facility] e 40 mg EC 5-03 tablet by [facility] tablet 00:00: mouth [place] 00 daily. [facility] benzonatate Yes [id number] 200mg Take 1 [facility] 200 mg 5-03 capsule by [facility] capsule 00:00: mouth 3 (three) Medical times [facility] daily as needed for Cough. And to decrease gag reflex with episodes of vomiting. zaleplon 10 Yes [id number] 10mg Take 1 [facility] mg capsule 5-03 capsule by [facility] 00:00: mouth at [place] 00 bedtime. [facility] pantoprazol Yes [id number] 40mg Take 1 [facility] e 40 mg EC 5-03 tablet by [facility] tablet 00:00: mouth [place] 00 daily. [facility] benzonatate Yes [id number] 200mg Take 1 [facility] 200 mg 5-03 capsule by [facility] capsule 00:00: mouth 3 (three) Medical times [place] daily as needed for Cough. And to decrease gag reflex with episodes of vomiting. zaleplon 10 Yes [id number] 10mg Take 1 [facility] mg capsule 5-03 capsule by [facility] 00:00: mouth at [place] 00 bedtime. [facility] pantoprazol Yes [id number] 40mg Take 1 [facility] e 40 mg EC 5-03 tablet by [facility] tablet 00:00: mouth [place] 00 daily. [facility] benzonatate Yes [id number] 200mg Take 1 [facility] 200 mg 5-03 capsule by [facility] capsule 00:00: mouth 3 (three) Medical times [place] daily as needed for Cough. And to decrease gag reflex with episodes of vomiting. zaleplon 10 Yes [id number] 10mg Take 1 [facility] mg capsule 5-03 capsule by [facility] 00:00: mouth at [place] 00 bedtime. [facility] pantoprazol Yes [id number] 40mg Take 1 [facility] e 40 mg EC 5-03 tablet by [facility] tablet 00:00: mouth [place] 00 daily. [facility] benzonatate Yes [id number] 200mg Take 1 [facility] 200 mg 5-03 capsule by [facility] capsule 00:00: mouth 3 00 (three) Medical times [facility] daily as needed for Cough. And to decrease gag reflex with episodes of vomiting. zaleplon 10 Yes [id number] 10mg Take 1 [facility] mg capsule 5-03 capsule by [facility] 00:00: mouth at [place] 00 bedtime. [facility] pantoprazol Yes [id number] 40mg Take 1 [facility] e 40 mg EC 5-03 tablet by [facility] tablet 00:00: mouth [place] 00 daily. [facility] benzonatate Yes [id number] 200mg Take 1 [facility] 200 mg 5-03 capsule by [facility] capsule 00:00: mouth 3 (three) Medical times [facility] daily as needed for Cough. And to decrease gag reflex with episodes of vomiting. zaleplon 10 Yes [id number] 10mg Take 1 [facility] mg capsule 5-03 capsule by [facility] 00:00: mouth at [place] 00 bedtime. [facility] pantoprazol Yes [id number] 40mg Take 1 [facility] e 40 mg EC 5-03 tablet by [facility] tablet 00:00: mouth [place] 00 daily. [facility] benzonatate Yes [id number] 200mg Take 1 [facility] 200 mg 5-03 capsule by [facility] capsule 00:00: mouth 3 00 (three) Medical times [facility] daily as needed for Cough. And to decrease gag reflex with episodes of vomiting. zaleplon 10 Yes [id number] 10mg Take 1 [facility] mg capsule 5-03 capsule by [facility] 00:00: mouth at [place] 00 bedtime. [facility] pantoprazol Yes [id number] 40mg Take 1 [facility] e 40 mg EC 5-03 tablet by [facility] tablet 00:00: mouth [place] 00 daily. [facility] benzonatate Yes [id number] 200mg Take 1 [facility] 200 mg 5-03 capsule by [facility] capsule 00:00: mouth 3 00 (three) Medical times [facility] daily as needed for Cough. And to decrease gag reflex with episodes of vomiting. zaleplon 10 Yes [id number] 10mg Take 1 [facility] mg capsule 5-03 capsule by [facility] 00:00: mouth at [place] 00 bedtime. [facility] pantoprazol Yes [id number] 40mg Take 1 [facility] e 40 mg EC 5-03 tablet by [facility] tablet 00:00: mouth [place] 00 daily. [facility] benzonatate Yes [id number] 200mg Take 1 [facility] 200 mg 5-03 capsule by [facility] capsule 00:00: mouth 3 (three) Medical times [place] daily as needed for Cough. And to decrease gag reflex with episodes of vomiting. zaleplon 10 Yes [id number] 10mg Take 1 [facility] mg capsule 5-03 capsule by [facility] 00:00: mouth at [place] 00 bedtime. [facility] pantoprazol Yes [id number] 40mg Take 1 [facility] e 40 mg EC 5-03 tablet by [facility] tablet 00:00: mouth [place] 00 daily. [facility] benzonatate Yes [id number] 200mg Take 1 [facility] 200 mg 5-03 capsule by [facility] capsule 00:00: mouth (three) Medical times [place] daily as needed for Cough. And to decrease gag reflex with episodes of vomiting. zaleplon 10 Yes [id number] 10mg Take 1 [facility] mg capsule 5-03 capsule by [facility] 00:00: mouth at [place] 00 bedtime. [facility] pantoprazol Yes [id number] 40mg Take 1 [facility] e 40 mg EC 5-03 tablet by [facility] tablet 00:00: mouth 00 daily. [facility] benzonatate Yes [id number] 200mg Take 1 [facility] 200 mg 5-03 capsule by [facility] capsule 00:00: mouth 3 (three) Medical times [place] daily as needed for Cough. And to decrease gag reflex with episodes of vomiting. zaleplon 10 Yes [id number] 10mg Take 1 [facility] mg capsule 5-03 capsule by [facility] 00:00: mouth at [place] 00 bedtime. [facility] pantoprazol Yes [id number] 40mg Take 1 [facility] e 40 mg EC 5-03 tablet by [facility] of tablet 00:00: mouth [place] 00 daily. [facility] benzonatate Yes [id number] 200mg Take 1 [facility] 200 mg 5-03 capsule by [facility] capsule 00:00: mouth 3 (three) Medical times [facility] daily as needed for Cough. And to decrease gag reflex with episodes of vomiting. zaleplon 10 Yes [id number] 10mg Take 1 [facility] mg capsule 5-03 capsule by [facility] 00:00: mouth at [place] 00 bedtime. [facility] pantoprazol Yes [id number] 40mg Take 1 [facility] e 40 mg EC 5-03 tablet by [facility] tablet 00:00: mouth [place] 00 daily. [facility] benzonatate Yes [id number] 200mg Take 1 [facility] 200 mg 5-03 capsule by [facility] capsule 00:00: mouth 3 (three) Medical times [facility] daily as needed for Cough. And to decrease gag reflex with episodes of vomiting. zaleplon 10 Yes [id number] 10mg Take 1 [facility] mg capsule 5-03 capsule by [facility] 00:00: mouth at [place] 00 bedtime. [facility] pantoprazol Yes [id number] 40mg Take 1 [facility] e 40 mg EC 5-03 tablet by [facility] of tablet 00:00: mouth 00 daily. [facility] benzonatate Yes [id number] 200mg Take 1 [facility] 200 mg 5-03 capsule by [facility] capsule 00:00: mouth (three) Medical times [facility] daily as needed for Cough. And to decrease gag reflex with episodes of vomiting. zaleplon 10 Yes [id number] 10mg Take 1 [facility] mg capsule 5-03 capsule by [facility] 00:00: mouth at [place] 00 bedtime. [facility] pantoprazol Yes [id number] 40mg Take 1 [facility] e 40 mg EC 5-03 tablet by [facility] tablet 00:00: mouth [place] 00 daily. [facility] benzonatate Yes [id number] 200mg Take 1 [facility] 200 mg 5-03 capsule by [facility] capsule 00:00: mouth 3 (three) Medical times [facility] daily as needed for Cough. And to decrease gag reflex with episodes of vomiting. zaleplon 10 Yes [id number] 10mg Take 1 [facility] mg capsule 5-03 capsule by [facility] 00:00: mouth at [place] 00 bedtime. [facility] pantoprazol Yes [id number] 40mg Take 1 [facility] e 40 mg EC 5-03 tablet by [facility] tablet 00:00: mouth [place] 00 daily. [facility] benzonatate Yes [id number] 200mg Take 1 [facility] 200 mg 5-03 capsule by [facility] capsule 00:00: mouth 3 (three) Medical times [facility] daily as needed for Cough. And to decrease gag reflex with episodes of vomiting. zaleplon 10 Yes [id number] 10mg Take 1 [facility] mg capsule 5-03 capsule by [facility] 00:00: mouth at [place] 00 bedtime. [facility] pantoprazol Yes [id number] 40mg Take 1 [facility] e 40 mg EC 5-03 tablet by [facility] tablet 00:00: mouth [place] 00 daily. [facility] benzonatate Yes [id number] 200mg Take 1 [facility] 200 mg 5-03 capsule by [facility] capsule 00:00: mouth 3 (three) Medical times [place] daily as needed for Cough. And to decrease gag reflex with episodes of vomiting. zaleplon 10 Yes [id number] 10mg Take 1 [facility] mg capsule 5-03 capsule by [facility] 00:00: mouth at [place] 00 bedtime. [facility] pantoprazol Yes [id number] 40mg Take 1 [facility] e 40 mg EC 5-03 tablet by [facility] tablet 00:00: mouth [place] 00 daily. [facility] benzonatate Yes [id number] 200mg Take 1 [facility] 200 mg 5-03 capsule by [facility] capsule 00:00: mouth 3 (three) Medical times [place] daily as needed for Cough. And to decrease gag reflex with episodes of vomiting. zaleplon 10 Yes [id number] 10mg Take 1 [facility] mg capsule 5-03 capsule by [facility] 00:00: mouth at [place] 00 bedtime. [facility] pantoprazol Yes [id number] 40mg Take 1 [facility] e 40 mg EC 5-03 tablet by [facility] tablet 00:00: mouth [place] 00 daily. [facility] benzonatate Yes [id number] 200mg Take 1 [facility] 200 mg 5-03 capsule by [facility] capsule 00:00: mouth 3 [place] 00 (three) Medical times [facility] daily as needed for Cough. And to decrease gag reflex with episodes of vomiting. zaleplon 10 Yes [id number] 10mg Take 1 [facility] mg capsule 5-03 capsule by [facility] of 00:00: mouth at [place] 00 bedtime. [facility] pantoprazol Yes [id number] 40mg Take 1 [facility] e 40 mg EC 5-03 tablet by [facility] of tablet 00:00: mouth [place] 00 daily. [facility] benzonatate Yes [id number] 200mg Take 1 [facility] 200 mg 5-03 capsule by [facility] capsule 00:00: mouth 3 (three) Medical times [facility] daily as needed for Cough. And to decrease gag reflex with episodes of vomiting. zaleplon 10 Yes [id number] 10mg Take 1 [facility] mg capsule 5-03 capsule by [facility] 00:00: mouth at [place] 00 bedtime. [facility] pantoprazol Yes [id number] 40mg Take 1 [facility] e 40 mg EC 5-03 tablet by [facility] of tablet 00:00: mouth [place] 00 daily. [facility] benzonatate Yes [id number] 200mg Take 1 [facility] 200 mg 5-03 capsule by [facility] capsule 00:00: mouth 3 (three) Medical times [facility] daily as needed for Cough. And to decrease gag reflex with episodes of vomiting. zaleplon 10 Yes [id number] 10mg Take 1 [facility] mg capsule 5-03 capsule by [facility] 00:00: mouth at [place] 00 bedtime. [facility] pantoprazol Yes [id number] 40mg Take 1 [facility] e 40 mg EC 5-03 tablet by [facility] of tablet 00:00: mouth [place] 00 daily. [facility] benzonatate Yes [id number] 200mg Take 1 [facility] 200 mg 5-03 capsule by [facility] capsule 00:00: mouth 3 (three) Medical times [facility] daily as needed for Cough. And to decrease gag reflex with episodes of vomiting. zaleplon 10 Yes [id number] 10mg Take 1 [facility] mg capsule 5-03 capsule by [facility] 00:00: mouth at [place] 00 bedtime. [facility] pantoprazol Yes [id number] 40mg Take 1 [facility] e 40 mg EC 5-03 tablet by [facility] of tablet 00:00: mouth [place] 00 daily. [facility] benzonatate Yes [id number] 200mg Take 1 [facility] 200 mg 5-03 capsule by [facility] capsule 00:00: mouth 3 (three) Medical times [place] daily as needed for Cough. And to decrease gag reflex with episodes of vomiting. zaleplon 10 Yes [id number] 10mg Take 1 [facility] mg capsule 5-03 capsule by [facility] 00:00: mouth at [place] 00 bedtime. [facility] pantoprazol Yes [id number] 40mg Take 1 [facility] e 40 mg EC 5-03 tablet by [facility] of tablet 00:00: mouth [place] 00 daily. [facility] benzonatate Yes [id number] 200mg Take 1 [facility] 200 mg 5-03 capsule by [facility] capsule 00:00: mouth 3 (three) Medical times [place] daily as needed for Cough. And to decrease gag reflex with episodes of vomiting. zaleplon 10 Yes [id number] 10mg Take 1 [facility] mg capsule 5-03 capsule by [facility] of 00:00: mouth at [place] 00 bedtime. [facility] pantoprazol Yes [id number] 40mg Take 1 [facility] e 40 mg EC 5-03 tablet by [facility] of tablet 00:00: mouth [place] 00 daily. [facility] benzonatate Yes [id number] 200mg Take 1 [facility] 200 mg 5-03 capsule by [facility] capsule 00:00: mouth (three) Medical times [place] daily as needed for Cough. And to decrease gag reflex with episodes of vomiting. zaleplon 10 Yes [id number] 10mg Take 1 [facility] mg capsule 5-03 capsule by [facility] of 00:00: mouth at [place] 00 bedtime. [facility] pantoprazol Yes [id number] 40mg Take 1 [facility] e 40 mg EC 5-03 tablet by [facility] of tablet 00:00: mouth [place] 00 daily. [facility] benzonatate Yes [id number] 200mg Take 1 [facility] 200 mg 5-03 capsule by [facility] capsule 00:00: mouth 3 (three) Medical times [place] daily as needed for Cough. And to decrease gag reflex with episodes of vomiting. zaleplon 10 Yes [id number] 10mg Take 1 [facility] mg capsule 5-03 capsule by [facility] of 00:00: mouth at [place] 00 bedtime. [facility] pantoprazol Yes [id number] 40mg Take 1 [facility] e 40 mg EC 5-03 tablet by [facility] of tablet 00:00: mouth [place] 00 daily. [facility] benzonatate Yes [id number] 200mg Take 1 [facility] 200 mg 5-03 capsule by [facility] capsule 00:00: mouth 3 [place] 00 (three) Medical times [facility] daily as needed for Cough. And to decrease gag reflex with episodes of vomiting. zaleplon 10 Yes [id number] 10mg Take 1 [facility] mg capsule 5-03 capsule by [facility] of 00:00: mouth at [place] 00 bedtime. [facility] pantoprazol Yes [id number] 40mg Take 1 [facility] e 40 mg EC 5-03 tablet by [facility] of tablet 00:00: mouth [place] 00 daily. [facility] benzonatate Yes [id number] 200mg Take 1 [facility] 200 mg 5-03 capsule by [facility] capsule 00:00: mouth 3 (three) Medical times [place] daily as needed for Cough. And to decrease gag reflex with episodes of vomiting. zaleplon 10 Yes [id number] 10mg Take 1 [facility] mg capsule 5-03 capsule by [facility] 00:00: mouth at [place] 00 bedtime. [facility] pantoprazol Yes [id number] 40mg Take 1 [facility] e 40 mg EC 5-03 tablet by [facility] of tablet 00:00: mouth [place] 00 daily. [facility] benzonatate Yes [id number] 200mg Take 1 [facility] 200 mg 5-03 capsule by [facility] capsule 00:00: mouth 3 00 (three) Medical times [place] daily as needed for Cough. And to decrease gag reflex with episodes of vomiting. zaleplon 10 Yes [id number] 10mg Take 1 [facility] mg capsule 5-03 capsule by [facility] 00:00: mouth at [place] 00 bedtime. [facility] pantoprazol Yes [id number] 40mg Take 1 [facility] e 40 mg EC 5-03 tablet by [facility] tablet 00:00: mouth [place] 00 daily. [facility] benzonatate Yes [id number] 200mg Take 1 [facility] 200 mg 5-03 capsule by [facility] capsule 00:00: mouth 3 (three) Medical times [place] daily as needed for Cough. And to decrease gag reflex with episodes of vomiting. zaleplon 10 Yes [id number] 10mg Take 1 [facility] mg capsule 5-03 capsule by [facility] 00:00: mouth at [place] 00 bedtime. [facility] pantoprazol Yes [id number] 40mg Take 1 [facility] e 40 mg EC 5-03 tablet by [facility] of tablet 00:00: mouth [place] 00 daily. [facility] benzonatate Yes [id number] 200mg Take 1 [facility] 200 mg 5-03 capsule by [facility] capsule 00:00: mouth 3 (three) Medical times [place] daily as needed for Cough. And to decrease gag reflex with episodes of vomiting. zaleplon 10 Yes [id number] 10mg Take 1 [facility] mg capsule 5-03 capsule by [facility] 00:00: mouth at [place] 00 bedtime. [facility] pantoprazol Yes [id number] 40mg Take 1 [facility] e 40 mg EC 5-03 tablet by [facility] tablet 00:00: mouth 00 daily. [facility] benzonatate Yes [id number] 200mg Take 1 [facility] 200 mg 5-03 capsule by [facility] capsule 00:00: mouth 3 (three) Medical times [place] daily as needed for Cough. And to decrease gag reflex with episodes of vomiting. zaleplon 10 Yes [id number] 10mg Take 1 [facility] mg capsule 5-03 capsule by [facility] 00:00: mouth at [place] 00 bedtime. [facility] pantoprazol Yes [id number] 40mg Take 1 [facility] e 40 mg EC 5-03 tablet by [facility] tablet 00:00: mouth 00 daily. [facility] benzonatate Yes [id number] 200mg Take 1 [facility] 200 mg 5-03 capsule by [facility] capsule 00:00: mouth 3 (three) Medical times [place] daily as needed for Cough. And to decrease gag reflex with episodes of vomiting. zaleplon 10 Yes [id number] 10mg Take 1 [facility] mg capsule 5-03 capsule by [facility] of 00:00: mouth at [place] 00 bedtime. [facility] pantoprazol Yes [id number] 40mg Take 1 [facility] e 40 mg EC 5-03 tablet by [facility] tablet 00:00: mouth [place] 00 daily. [facility] benzonatate Yes [id number] 200mg Take 1 [facility] 200 mg 5-03 capsule by [facility] capsule 00:00: mouth 3 00 (three) Medical times [facility] daily as needed for Cough. And to decrease gag reflex with episodes of vomiting. zaleplon 10 Yes [id number] 10mg Take 1 [facility] mg capsule 5-03 capsule by [facility] 00:00: mouth at [place] 00 bedtime. [facility] pantoprazol Yes [id number] 40mg Take 1 [facility] e 40 mg EC 5-03 tablet by [facility] tablet 00:00: mouth [place] 00 daily. [facility] benzonatate Yes [id number] 200mg Take 1 [facility] 200 mg 5-03 capsule by [facility] capsule 00:00: mouth 3 00 (three) Medical times [place] daily as needed for Cough. And to decrease gag reflex with episodes of vomiting. zaleplon 10 Yes [id number] 10mg Take 1 [facility] mg capsule 5-03 capsule by [facility] 00:00: mouth at [place] 00 bedtime. [facility] pantoprazol Yes [id number] 40mg Take 1 [facility] e 40 mg EC 5-03 tablet by [facility] tablet 00:00: mouth [place] 00 daily. [facility] benzonatate Yes [id number] 200mg Take 1 [facility] 200 mg 5-03 capsule by [facility] capsule 00:00: mouth 3 00 (three) Medical times [facility] daily as needed for Cough. And to decrease gag reflex with episodes of vomiting. zaleplon 10 Yes [id number] 10mg Take 1 [facility] mg capsule 5-03 capsule by [facility] 00:00: mouth at [place] 00 bedtime. [facility] pantoprazol Yes [id number] 40mg Take 1 [facility] e 40 mg EC 5-03 tablet by [facility] tablet 00:00: mouth [place] 00 daily. [facility] benzonatate Yes [id number] 200mg Take 1 [facility] 200 mg 5-03 capsule by [facility] capsule 00:00: mouth 3 (three) Medical times Branch daily as needed for Cough. And to decrease gag reflex with episodes of vomiting. zaleplon 10 Yes [id number] 10mg Take 1 [facility] mg capsule 5-03 capsule by [facility] of 00:00: mouth at [place] 00 bedtime. [facility] pantoprazol Yes [id number] 40mg Take 1 [facility] e 40 mg EC 5-03 tablet by [facility] of tablet 00:00: mouth [place] 00 daily. [facility] benzonatate Yes [id number] 200mg Take 1 [facility] 200 mg 5-03 capsule by [facility] capsule 00:00: mouth 3 (three) Medical times [place] daily as needed for Cough. And to decrease gag reflex with episodes of vomiting. zaleplon 10 Yes [id number] 10mg Take 1 [facility] mg capsule 5-03 capsule by [facility] of 00:00: mouth at [place] 00 bedtime. [facility] pantoprazol Yes [id number] 40mg Take 1 [facility] e 40 mg EC 5-03 tablet by [facility] of tablet 00:00: mouth [place] 00 daily. [facility] benzonatate Yes [id number] 200mg Take 1 [facility] 200 mg 5-03 capsule by [facility] capsule 00:00: mouth 3 00 (three) Medical times [place] daily as needed for Cough. And to decrease gag reflex with episodes of vomiting. zaleplon 10 Yes [id number] 10mg Take 1 [facility] mg capsule 5-03 capsule by [facility] of 00:00: mouth at [place] 00 bedtime. [facility] pantoprazol Yes [id number] 40mg Take 1 [facility] e 40 mg EC 5-03 tablet by [facility] of tablet 00:00: mouth [place] 00 daily. [facility] benzonatate Yes [id number] 200mg Take 1 [facility] 200 mg 5-03 capsule by [facility] of capsule 00:00: mouth 3 00 (three) Medical times [facility] daily as needed for Cough. And to decrease gag reflex with episodes of vomiting. zaleplon 10 Yes [id number] 10mg Take 1 [facility] mg capsule 5-03 capsule by [facility] of 00:00: mouth at [place] 00 bedtime. [facility] pantoprazol Yes [id number] 40mg Take 1 [facility] e 40 mg EC 5-03 tablet by [facility] of tablet 00:00: mouth [place] 00 daily. [facility] benzonatate Yes [id number] 200mg Take 1 [facility] 200 mg 5-03 capsule by [facility] of capsule 00:00: mouth 3 (three) Medical times [facility] daily as needed for Cough. And to decrease gag reflex with episodes of vomiting. zaleplon 10 Yes [id number] 10mg Take 1 [facility] mg capsule 5-03 capsule by [facility] of 00:00: mouth at [place] 00 bedtime. [facility] pantoprazol Yes [id number] 40mg Take 1 [facility] e 40 mg EC 5-03 tablet by [facility] of tablet 00:00: mouth [place] 00 daily. [facility] benzonatate Yes [id number] 200mg Take 1 [facility] 200 mg 5-03 capsule by [facility] of capsule 00:00: mouth 3 (three) Medical times [place] daily as needed for Cough. And to decrease gag reflex with episodes of vomiting. zaleplon 10 Yes [id number] 10mg Take 1 [facility] mg capsule 5-03 capsule by [facility] of 00:00: mouth at [place] 00 bedtime. [facility] pantoprazol Yes [id number] 40mg Take 1 [facility] e 40 mg EC 5-03 tablet by [facility] of tablet 00:00: mouth [place] 00 daily. [facility] benzonatate Yes [id number] 200mg Take 1 [facility] 200 mg 5-03 capsule by [facility] of capsule 00:00: mouth 3 (three) Medical times [place] daily as needed for Cough. And to decrease gag reflex with episodes of vomiting. zaleplon 10 Yes [id number] 10mg Take 1 [facility] mg capsule 5-03 capsule by [facility] of 00:00: mouth at [place] 00 bedtime. [facility] pantoprazol Yes [id number] 40mg Take 1 [facility] e 40 mg EC 5-03 tablet by [facility] of tablet 00:00: mouth [place] 00 daily. [facility] benzonatate Yes [id number] 200mg Take 1 [facility] 200 mg 5-03 capsule by [facility] of capsule 00:00: mouth 3 (three) Medical times [facility] daily as needed for Cough. And to decrease gag reflex with episodes of vomiting. zaleplon 10 Yes [id number] 10mg Take 1 [facility] mg capsule 5-03 capsule by [facility] of 00:00: mouth at [place] 00 bedtime. [facility] pantoprazol Yes [id number] 40mg Take 1 [facility] e 40 mg EC 5-03 tablet by [facility] of tablet 00:00: mouth [place] 00 daily. [facility] benzonatate Yes [id number] 200mg Take 1 [facility] 200 mg 5-03 capsule by [facility] of capsule 00:00: mouth 3 (three) Medical times [facility] daily as needed for Cough. And to decrease gag reflex with episodes of vomiting. zaleplon 10 Yes [id number] 10mg Take 1 [facility] mg capsule 5-03 capsule by [facility] of 00:00: mouth at [place] 00 bedtime. [facility] pantoprazol Yes [id number] 40mg Take 1 [facility] e 40 mg EC 5-03 tablet by [facility] of tablet 00:00: mouth [place] 00 daily. [facility] benzonatate Yes [id number] 200mg Take 1 [facility] 200 mg 5-03 capsule by [facility] of capsule 00:00: mouth 3 (three) Medical times [facility] daily as needed for Cough. And to decrease gag reflex with episodes of vomiting. zaleplon 10 Yes [id number] 10mg Take 1 [facility] mg capsule 5-03 capsule by [facility] of 00:00: mouth at [place] 00 bedtime. [facility] pantoprazol Yes [id number] 40mg Take 1 [facility] e 40 mg EC 5-03 tablet by [facility] of tablet 00:00: mouth [place] 00 daily. [facility] benzonatate Yes [id number] 200mg Take 1 [facility] 200 mg 5-03 capsule by [facility] capsule 00:00: mouth 3 (three) Medical times [facility] daily as needed for Cough. And to decrease gag reflex with episodes of vomiting. zaleplon 10 Yes [id number] 10mg Take 1 [facility] mg capsule 5-03 capsule by [facility] of 00:00: mouth at [place] 00 bedtime. [facility] pantoprazol Yes [id number] 40mg Take 1 [facility] e 40 mg EC 5-03 tablet by [facility] of tablet 00:00: mouth [place] 00 daily. [facility] benzonatate Yes [id number] 200mg Take 1 [facility] 200 mg 5-03 capsule by [facility] of capsule 00:00: mouth 3 (three) Medical times [place] daily as needed for Cough. And to decrease gag reflex with episodes of vomiting. zaleplon 10 Yes [id number] 10mg Take 1 [facility] mg capsule 5-03 capsule by [facility] of 00:00: mouth at [place] 00 bedtime. [facility] pantoprazol Yes [id number] 40mg Take 1 [facility] e 40 mg EC 5-03 tablet by [facility] of tablet 00:00: mouth 00 daily. [facility] benzonatate Yes [id number] 200mg Take 1 [facility] 200 mg 5-03 capsule by [facility] of capsule 00:00: mouth (three) Medical times [place] daily as needed for Cough. And to decrease gag reflex with episodes of vomiting. zaleplon 10 Yes [id number] 10mg Take 1 [facility] mg capsule 5-03 capsule by [facility] of 00:00: mouth at [place] 00 bedtime. [facility] pantoprazol Yes [id number] 40mg Take 1 [facility] e 40 mg EC 5-03 tablet by [facility] of tablet 00:00: mouth 00 daily. [facility] benzonatate Yes [id number] 200mg Take 1 [facility] 200 mg 5-03 capsule by [facility] capsule 00:00: mouth 3 (three) Medical times [place] daily as needed for Cough. And to decrease gag reflex with episodes of vomiting. zaleplon 10 Yes [id number] 10mg Take 1 [facility] mg capsule 5-03 capsule by [facility] of 00:00: mouth at [place] 00 bedtime. [facility] pantoprazol Yes [id number] 40mg Take 1 [facility] e 40 mg EC 5-03 tablet by [facility] of tablet 00:00: mouth [place] 00 daily. [facility] benzonatate Yes [id number] 200mg Take 1 [facility] 200 mg 5-03 capsule by [facility] of capsule 00:00: mouth 3 [place] 00 (three) Medical times [facility] daily as needed for Cough. And to decrease gag reflex with episodes of vomiting. zaleplon 10 Yes [id number] 10mg Take 1 [facility] mg capsule 5-03 capsule by [facility] of 00:00: mouth at [place] 00 bedtime. [facility] pantoprazol Yes [id number] 40mg Take 1 [facility] e 40 mg EC 5-03 tablet by [facility] of tablet 00:00: mouth [place] 00 daily. [facility] benzonatate Yes [id number] 200mg Take 1 [facility] 200 mg 5-03 capsule by [facility] of capsule 00:00: mouth 3 00 (three) Medical times [facility] daily as needed for Cough. And to decrease gag reflex with episodes of vomiting. zaleplon 10 Yes [id number] 10mg Take 1 [facility] mg capsule 5-03 capsule by [facility] of 00:00: mouth at [place] 00 bedtime. [facility] pantoprazol Yes [id number] 40mg Take 1 [facility] e 40 mg EC 5-03 tablet by [facility] of tablet 00:00: mouth [place] 00 daily. [facility] zaleplon 10 Yes [id number] 10mg Take 1 [facility] mg capsule 5-03 capsule by [facility] of 00:00: mouth at [place] 00 bedtime. [facility] pantoprazol Yes [id number] 40mg Take 1 [facility] e 40 mg EC 5-03 tablet by [facility] of tablet 00:00: mouth [place] 00 daily. [facility] zaleplon 10 Yes [id number] 10mg Take 1 [facility] mg capsule 5-03 capsule by [facility] of 00:00: mouth at [place] 00 bedtime. [facility] pantoprazol Yes [id number] 40mg Take 1 [facility] e 40 mg EC 5-03 tablet by [facility] of tablet 00:00: mouth [place] 00 daily. [facility] zaleplon 10 Yes [id number] 10mg Take 1 [facility] mg capsule 5-03 capsule by [facility] of 00:00: mouth at [place] 00 bedtime. [facility] pantoprazol Yes [id number] 40mg Take 1 [facility] e 40 mg EC 5-03 tablet by [facility] of tablet 00:00: mouth [place] 00 daily. [facility] zaleplon 10 Yes [id number] 10mg Take 1 [facility] mg capsule 5-03 capsule by [facility] of 00:00: mouth at [place] 00 bedtime. [facility] pantoprazol Yes [id number] 40mg Take 1 [facility] e 40 mg EC 5-03 tablet by [facility] of tablet 00:00: mouth [place] 00 daily. [facility] zaleplon 10 Yes [id number] 10mg Take 1 [facility] mg capsule 5-03 capsule by [facility] of 00:00: mouth at [place] 00 bedtime. [facility] pantoprazol Yes [id number] 40mg Take 1 [facility] e 40 mg EC 5-03 tablet by [facility] of tablet 00:00: mouth [place] 00 daily. [facility] zaleplon 10 Yes [id number] 10mg Take 1 [facility] mg capsule 5-03 capsule by [facility] of 00:00: mouth at [place] 00 bedtime. [facility] pantoprazol Yes [id number] 40mg Take 1 [facility] e 40 mg EC 5-03 tablet by [facility] of tablet 00:00: mouth [place] 00 daily. [facility] zaleplon 10 Yes [id number] 10mg Take 1 [facility] mg capsule 5-03 capsule by [facility] of 00:00: mouth at [place] 00 bedtime. [facility] pantoprazol Yes [id number] 40mg Take 1 [facility] e 40 mg EC 5-03 tablet by [facility] of tablet 00:00: mouth [place] 00 daily. [facility] zaleplon 10 Yes [id number] 10mg Take 1 [facility] mg capsule 5-03 capsule by [facility] of 00:00: mouth at [place] 00 bedtime. [facility] pantoprazol Yes [id number] 40mg Take 1 [facility] e 40 mg EC 5-03 tablet by [facility] of tablet 00:00: mouth [place] 00 daily. [facility] zaleplon 10 Yes [id number] 10mg Take 1 [facility] mg capsule 5-03 capsule by [facility] of 00:00: mouth at [place] 00 bedtime. [facility] pantoprazol Yes [id number] 40mg Take 1 [facility] e 40 mg EC 5-03 tablet by [facility] of tablet 00:00: mouth [place] 00 daily. [facility] zaleplon 10 Yes [id number] 10mg Take 1 [facility] mg capsule 5-03 capsule by [facility] of 00:00: mouth at [place] 00 bedtime. [facility] pantoprazol Yes [id number] 40mg Take 1 [facility] e 40 mg EC 5-03 tablet by [facility] of tablet 00:00: mouth [place] 00 daily. [facility] zaleplon 10 Yes [id number] 10mg Take 1 [facility] mg capsule 5-03 capsule by [facility] of 00:00: mouth at [place] 00 bedtime. [facility] pantoprazol Yes [id number] 40mg Take 1 [facility] e 40 mg EC 5-03 tablet by [facility] of tablet 00:00: mouth [place] 00 daily. [facility] zaleplon 10 Yes [id number] 10mg Take 1 [facility] mg capsule 5-03 capsule by [facility] of 00:00: mouth at [place] 00 bedtime. [facility] pantoprazol Yes [id number] 40mg Take 1 [facility] e 40 mg EC 5-03 tablet by [facility] of tablet 00:00: mouth [place] 00 daily. [facility] zaleplon 10 Yes [id number] 10mg Take 1 [facility] mg capsule 5-03 capsule by [facility] of 00:00: mouth at [place] 00 bedtime. [facility] pantoprazol Yes [id number] 40mg Take 1 [facility] e 40 mg EC 5-03 tablet by [facility] of tablet 00:00: mouth [place] 00 daily. [facility] zaleplon 10 Yes [id number] 10mg Take 1 [facility] mg capsule 5-03 capsule by [facility] of 00:00: mouth at [place] 00 bedtime. [facility] pantoprazol Yes [id number] 40mg Take 1 [facility] e 40 mg EC 5-03 tablet by [facility] of tablet 00:00: mouth [place] 00 daily. [facility] zaleplon 10 Yes [id number] 10mg Take 1 [facility] mg capsule 5-03 capsule by [facility] of 00:00: mouth at [place] 00 bedtime. [facility] pantoprazol Yes [id number] 40mg Take 1 [facility] e 40 mg EC 5-03 tablet by [facility] of tablet 00:00: mouth [place] 00 daily. [facility] zaleplon 10 Yes [id number] 10mg Take 1 [facility] mg capsule 5-03 capsule by [facility] of 00:00: mouth at [place] 00 bedtime. [facility] pantoprazol Yes [id number] 40mg Take 1 [facility] e 40 mg EC 5-03 tablet by [facility] of tablet 00:00: mouth [place] 00 daily. [facility] zaleplon 10 Yes [id number] 10mg Take 1 [facility] mg capsule 5-03 capsule by [facility] of 00:00: mouth at [place] 00 bedtime. [facility] pantoprazol Yes [id number] 40mg Take 1 [facility] e 40 mg EC 5-03 tablet by [facility] of tablet 00:00: mouth [place] 00 daily. [facility] zaleplon 10 Yes [id number] 10mg Take 1 [facility] mg capsule 5-03 capsule by [facility] of 00:00: mouth at [place] 00 bedtime. [facility] pantoprazol Yes [id number] 40mg Take 1 [facility] e 40 mg EC 5-03 tablet by [facility] of tablet 00:00: mouth [place] 00 daily. [facility] zaleplon 10 Yes [id number] 10mg Take 1 [facility] mg capsule 5-03 capsule by [facility] of 00:00: mouth at [place] 00 bedtime. [facility] pantoprazol Yes [id number] 40mg Take 1 [facility] e 40 mg EC 5-03 tablet by [facility] of tablet 00:00: mouth [place] 00 daily. [facility] zaleplon 10 Yes [id number] 10mg Take 1 [facility] mg capsule 5-03 capsule by [facility] of 00:00: mouth at [place] 00 bedtime. [facility] pantoprazol Yes [id number] 40mg Take 1 [facility] e 40 mg EC 5-03 tablet by [facility] of tablet 00:00: mouth [place] 00 daily. [facility] zaleplon 10 Yes [id number] 10mg Take 1 [facility] mg capsule 5-03 capsule by [facility] of 00:00: mouth at [place] 00 bedtime. [facility] pantoprazol Yes [id number] 40mg Take 1 [facility] e 40 mg EC 5-03 tablet by [facility] of tablet 00:00: mouth [place] 00 daily. [facility] zaleplon 10 Yes [id number] 10mg Take 1 [facility] mg capsule 5-03 capsule by [facility] of 00:00: mouth at [place] 00 bedtime. [facility] pantoprazol Yes [id number] 40mg Take 1 [facility] e 40 mg EC 5-03 tablet by [facility] of tablet 00:00: mouth [place] 00 daily. [facility] zaleplon 10 Yes [id number] 10mg Take 1 [facility] mg capsule 5-03 capsule by [facility] of 00:00: mouth at [place] 00 bedtime. [facility] pantoprazol Yes [id number] 40mg Take 1 [facility] e 40 mg EC 5-03 tablet by [facility] of tablet 00:00: mouth [place] 00 daily. [facility] zaleplon 10 Yes [id number] 10mg Take 1 [facility] mg capsule 5-03 capsule by [facility] of 00:00: mouth at [place] 00 bedtime. [facility] pantoprazol Yes [id number] 40mg Take 1 [facility] e 40 mg EC 5-03 tablet by [facility] of tablet 00:00: mouth [place] 00 daily. [facility] zaleplon 10 Yes [id number] 10mg Take 1 [facility] mg capsule 5-03 capsule by [facility] of 00:00: mouth at [place] 00 bedtime. [facility] pantoprazol Yes [id number] 40mg Take 1 [facility] e 40 mg EC 5-03 tablet by [facility] of tablet 00:00: mouth [place] 00 daily. [facility] zaleplon 10 Yes [id number] 10mg Take 1 [facility] mg capsule 5-03 capsule by [facility] of 00:00: mouth at [place] 00 bedtime. [facility] pantoprazol Yes [id number] 40mg Take 1 [facility] e 40 mg EC 5-03 tablet by [facility] of tablet 00:00: mouth [place] 00 daily. [facility] zaleplon 10 Yes [id number] 10mg Take 1 [facility] mg capsule 5-03 capsule by [facility] of 00:00: mouth at [place] 00 bedtime. [facility] pantoprazol Yes [id number] 40mg Take 1 [facility] e 40 mg EC 5-03 tablet by [facility] of tablet 00:00: mouth [place] 00 daily. [facility] zaleplon 10 Yes [id number] 10mg Take 1 [facility] mg capsule 5-03 capsule by [facility] of 00:00: mouth at [place] 00 bedtime. [facility] pantoprazol Yes [id number] 40mg Take 1 [facility] e 40 mg EC 5-03 tablet by [facility] of tablet 00:00: mouth [place] 00 daily. [facility] zaleplon 10 Yes [id number] 10mg Take 1 [facility] mg capsule 5-03 capsule by [facility] of 00:00: mouth at [place] 00 bedtime. [facility] pantoprazol Yes [id number] 40mg Take 1 [facility] e 40 mg EC 5-03 tablet by [facility] of tablet 00:00: mouth [place] 00 daily. [facility] pantoprazol Yes [id number] 40mg Take 1 [facility] e 40 mg EC 5-03 tablet by [facility] of tablet 00:00: mouth [place] 00 daily. [facility] pantoprazol Yes [id number] 40mg Take 1 [facility] e 40 mg EC 5-03 tablet by [facility] of tablet 00:00: mouth [place] 00 daily. [facility] pantoprazol Yes [id number] 40mg Take 1 [facility] e 40 mg EC 5-03 tablet by [facility] of tablet 00:00: mouth [place] 00 daily. [facility] pantoprazol Yes [id number] 40mg Take 1 [facility] e 40 mg EC 5-03 tablet by [facility] of tablet 00:00: mouth [place] 00 daily. [facility] pantoprazol Yes [id number] 40mg Take 1 [facility] e 40 mg EC 5-03 tablet by [facility] of tablet 00:00: mouth [place] 00 daily. [facility] pantoprazol Yes [id number] 40mg Take 1 [facility] e 40 mg EC 5-03 tablet by [facility] of tablet 00:00: mouth [place] 00 daily. [facility] pantoprazol Yes [id number] 40mg Take 1 [facility] e 40 mg EC 5-03 tablet by [facility] of tablet 00:00: mouth [place] 00 daily. [facility] pantoprazol Yes [id number] 40mg Take 1 [facility] e 40 mg EC 5-03 tablet by [facility] of tablet 00:00: mouth [place] 00 daily. [facility] pantoprazol 2022-0 Yes [id number] 40mg Take 1 [facility] e 40 mg EC 5-03 tablet by [facility] of tablet 00:00: mouth [place] 00 daily. [facility] pantoprazol 2021-0 Yes [id number] 40mg Take 1 [facility] e 40 mg EC 5-03 tablet by [facility] of tablet 00:00: mouth [place] 00 daily. [facility] pantoprazol 2021-0 Yes [id number] 40mg Take 1 [facility] e 40 mg EC 5-03 tablet by it[facility] of tablet 00:00: mouth [place] 00 daily. [facility] pantoprazol 2021- Yes [id number] 40mg Take 1 [facility] e 40 mg EC 5-03 tablet by [facility] of tablet 00:00: mouth [place] 00 daily. [facility] pantoprazol Yes [id number] 40mg Take 1 [facility] e 40 mg EC 5-03 tablet by [facility] of tablet 00:00: mouth [place] 00 daily. [facility] pantoprazol 2021- Yes [id number] 40mg Take 1 [facility] e 40 mg EC 5-03 tablet by [facility] of tablet 00:00: mouth [place] 00 daily. [facility] pantoprazol 2021- Yes [id number] 40mg Take 1 [facility] e 40 mg EC 5-03 tablet by [facility] of tablet 00:00: mouth [place] 00 daily. [facility] pantoprazol 2021- Yes [id number] 40mg Take 1 [facility] e 40 mg EC 5-03 tablet by [facility] of tablet 00:00: mouth [place] 00 daily. [facility] pantoprazol 2021- Yes [id number] 40mg Take 1 [facility] e 40 mg EC 5-03 tablet by [facility] of tablet 00:00: mouth [place] 00 daily. [facility] pantoprazol 2021-0 Yes [id number] 40mg Take 1 [facility] e 40 mg EC 5-03 tablet by it[facility] of tablet 00:00: mouth [place] 00 daily. [facility] pantoprazol 2021-0 Yes [id number] 40mg Take 1 [facility] e 40 mg EC 5-03 tablet by it[facility] of tablet 00:00: mouth [place] 00 daily. [facility] pantoprazol 2021-0 Yes [id number] 40mg Take 1 [facility] e 40 mg EC 5-03 tablet by it[facility] of tablet 00:00: mouth [place] 00 daily. [facility] pantoprazol 2021-0 Yes [id number] 40mg Take 1 [facility] e 40 mg EC 5-03 tablet by it[facility] of tablet 00:00: mouth [place] 00 daily. [facility] pantoprazol 2021-0 Yes [id number] 40mg Take 1 [facility] e 40 mg EC 5-03 tablet by [facility] of tablet 00:00: mouth [place] 00 daily. [facility] pantoprazol 2021-0 Yes [id number] 40mg Take 1 [facility] e 40 mg EC 5-03 tablet by [facility] of tablet 00:00: mouth [place] 00 daily. [facility] pantoprazol 2021-0 Yes [id number] 40mg Take 1 [facility] e 40 mg EC 5-03 tablet by it[facility] of tablet 00:00: mouth [place] 00 daily. [facility] pantoprazol 2021-0 Yes [id number] 40mg Take 1 [facility] e 40 mg EC 5-03 tablet by it[facility] of tablet 00:00: mouth [place] 00 daily. [facility] pantoprazol 2021- Yes [id number] 40mg Take 1 [facility] e 40 mg EC 5-03 tablet by it[facility] of tablet 00:00: mouth [place] 00 daily. [facility] pantoprazol 2021- Yes [id number] 40mg Take 1 [facility] e 40 mg EC 5-03 tablet by ity of tablet 00:00: mouth [place] 00 daily. [facility] pantoprazol 2021- Yes [id number] 40mg Take 1 [facility] e 40 mg EC 5-03 tablet by [facility] of tablet 00:00: mouth [place] 00 daily. [facility] pantoprazol 2021- Yes [id number] 40mg Take 1 [facility] e 40 mg EC 5-03 tablet by ity of tablet 00:00: mouth [place] 00 daily. [facility] pantoprazol 2021-0 Yes [id number] 40mg Take 1 [facility] e 40 mg EC 5-03 tablet by it[facility] of tablet 00:00: mouth [place] 00 daily. [facility] pantoprazol 2021-0 Yes [id number] 40mg Take 1 [facility] e 40 mg EC 5-03 tablet by ity of tablet 00:00: mouth [place] 00 daily. [facility] pantoprazol 2021-0 Yes [id number] 40mg Take 1 [facility] e 40 mg EC 5-03 tablet by [facility] of tablet 00:00: mouth [place] 00 daily. [facility] pantoprazol 2021-0 Yes [id number] 40mg Take 1 [facility] e 40 mg EC 5-03 tablet by ity of tablet 00:00: mouth [place] 00 daily. [facility] pantoprazol 2021- Yes [id number] 40mg Take 1 [facility] e 40 mg EC 5-03 tablet by [facility] of tablet 00:00: mouth [place] 00 daily. [facility] pantoprazol Yes [id number] 40mg Take 1 [facility] e 40 mg EC 5-03 tablet by [facility] of tablet 00:00: mouth [place] 00 daily. [facility] pantoprazol 2021- Yes [id number] 40mg Take 1 [facility] e 40 mg EC 5-03 tablet by [facility] of tablet 00:00: mouth [place] 00 daily. [facility] pantoprazol Yes [id number] 40mg Take 1 [facility] e 40 mg EC 5-03 tablet by [facility] of tablet 00:00: mouth [place] 00 daily. [facility] pantoprazol Yes [id number] 40mg Take 1 [facility] e 40 mg EC 5-03 tablet by ity of tablet 00:00: mouth [place] 00 daily. [facility] pantoprazol Yes [id number] 40mg Take 1 [facility] e 40 mg EC 5-03 tablet by ity of tablet 00:00: mouth [place] 00 daily. [facility] pantoprazol Yes [id number] 40mg Take 1 [facility] e 40 mg EC 5-03 tablet by ity of tablet 00:00: mouth [place] 00 daily. [facility] pantoprazol Yes [id number] 40mg Take 1 [facility] e 40 mg EC 5-03 tablet by ity of tablet 00:00: mouth [place] 00 daily. [facility] pantoprazol 2021-0 Yes [id number] 40mg Take 1 [facility] e 40 mg EC 5-03 tablet by ity of tablet 00:00: mouth [place] 00 daily. [facility] pantoprazol 2021-0 Yes [id number] 40mg Take 1 [facility] e 40 mg EC 5-03 tablet by ity of tablet 00:00: mouth [place] 00 daily. [facility] pantoprazol 2021-2022- No [id number] 40mg Take 1 [facility] e 40 mg EC 5-03 03-20 tablet by [facility] of tablet 00:00: 00:00 mouth [place] 00 :00 daily. [facility] pantoprazol 2021-0 2022- No [id number] 40mg Take 1 [facility] e 40 mg EC 5-03 03-20 tablet by ity of tablet 00:00: 00:00 mouth [place] 00 :00 daily. [facility] zaleplon 10 2022- No [id number] 10mg Take 1 [facility] mg capsule 11-08 capsule by it y of 00:00: 00:00 mouth at [place] 00 :00 bedtime. [facility] zaleplon 10 2022- No [id number] 10mg Take 1 [facility] mg capsule 11-08 capsule by it y of 00:00: 00:00 mouth at [place] 00 :00 bedtime. [facility] benzonatate 2022- No [id number] 200mg Take 1 [facility] 200 mg 11-08 capsule by ity of capsule 00:00: 00:00 mouth 3 [place] 00 :00 (three) Medical times Branch daily as needed for Cough. And to decrease gag reflex with episodes of vomiting. benzonatate 2022- No [id number] 200mg Take 1 [facility] 200 mg 11-08 capsule by ity of capsule 00:00: 00:00 mouth 3 [place] 00 :00 (three) Medical times Branch daily as needed for Cough. And to decrease gag reflex with episodes of vomiting. lidocaine-p 2021- No [id number] Rub over [facility] rilocaine 11-08 port site ity of 2.5-2.5 % 00:00: 00:00 before [place] cream 00 :00 accessing. [facility] XIFAXAN 550 2021- No 550mg Take 550 [facility] mg tablet 11-08 mg by ity of 00:00: 00:00 mouth 3 [place] 00 :00 (three) Medical times Branch daily. Has not started as of 11/30 lidocaine-p 2021- No [id number] Rub over [facility] rilocaine 11-08 port site [...] of 00:00: daily. [facility] ramelteon 8 Yes 8mg Take 8 mg U nivers mg tablet 4-18 by mouth ity of 00:00: daily. [facility] ramelteon 8 Yes 8mg Take 8 mg U nivers mg tablet 4-18 by mouth ity of 00:00: daily. [facility] ramelteon 8 Yes 8mg Take 8 mg U nivers mg tablet 4-18 by mouth ity of 00:00: daily. [facility] ramelteon 8 Yes 8mg Take 8 mg U nivers mg tablet 4-18 by mouth ity of 00:00: daily. [facility] ramelteon 8 2022- No 8mg Take 8 mg [facility] mg tablet -18 03-15 by mouth ity o f 00:00: 00:00 daily. [place] 00 : Medical Branch ramelteon 8 0 2021- No 8mg Take 8 mg [facility] mg tablet -18 03-15 by mouth ity o f 00:00: 00:00 daily. [place] 00 :00 [facility] Branch fluconazole 2021-0 Yes [id number] Take 1 U nivers 150 mg 4-07 pill now. ity of tablet 00:00: If [place] symptoms Medical not Branch improved in 72 hours take another dose. fluconazole 2021-0 Yes [id number] Take 1 U nivers 150 mg 4-07 pill now. ity of tablet 00:00: If [place] symptoms Medical not Branch improved in 72 hours take another dose. fluconazole 2021-0 Yes [id number] Take 1 U nivers 150 mg 4-07 pill now. ity of tablet 00:00: If [place] symptoms Medical not Branch improved in 72 hours take another dose. fluconazole 2021-0 Yes [id number] Take 1 U nivers 150 mg 4-07 pill now. ity of tablet 00:00: If [place] 00 symptoms Medical not Branch improved in 72 hours take another dose. fluconazole 2021-0 Yes [id number] Take 1 U nivers 150 mg 4-07 pill now. ity of tablet 00:00: If [place] 00 symptoms Medical not Branch improved in 72 hours take another dose. fluconazole 2021- No [id number] Take 1 [facility] 150 mg 4-01 14- pill now. ity of tablet 00:00: 00:00 If [place] 00 :00 symptoms Medical not Branch improved in 72 hours take another dose. fluconazole 2021- No [id number] Take 1 [facility] 150 mg 4-01 14- pill now. [facility] of tablet 00:00: 00:00 If [place] 00 :00 symptoms Medical not Branch improved in 72 hours take another dose. colesevelam Yes [id number] 625mg Take 1 [facility] 625 mg 4- [id number] tablet by [facility] of tablet 00:00: mouth 2 (two) Medical times Branch daily with meals. colesevelam Yes [id number] 625mg Take 1 [facility] 625 mg 4- [id number] tablet by [facility] of tablet 00:00: mouth 2 (two) Medical times Branch daily with meals. colesevelam Yes [id number] 625mg Take 1 [facility] 625 mg 4- [id number] tablet by [facility] of tablet 00:00: mouth 2 (two) Medical times Branch daily with meals. colesevelam Yes [id number] 625mg Take 1 [facility] 625 mg 4-01 [id number] tablet by [facility] of tablet 00:00: mouth 2 (two) Medical times Branch daily with meals. colesevelam Yes [id number] 625mg Take 1 [facility] 625 mg 4- [id number] tablet by [facility] of tablet 00:00: mouth 2 (two) Medical times Branch daily with meals. colesevelam 2021- No [id number] 625mg Take 1 [facility] 625 mg 4-03-15 [id number] tablet by [facility] o f tablet 00:00: 00:00 mouth 2 [place] 00 :00 (two) Medical times Branch daily with meals. colesevelam 2021- No [id number] 625mg Take 1 [facility] 625 mg 4-03-15 [id number] tablet by [facility] o f tablet 00:00: 00:00 mouth 2 [place] 00 :00 (two) Medical times Branch daily [...] Take 3.6 g [facility] gram EC 3-23 -07 by mouth [facility] of tablet 00:00: 00:00 daily. [place] 00 :00 Medical Branch LIALDA 1.2 2021-0 2021- No 3.6g Take 3.6 g [facility] gram EC 3-23 -07 by mouth [facility] of tablet 00:00: 00:00 daily. [place] 00 :00 Medical Branch albuterol Yes [id number] 2.5mg Inhale 3 [facility] 2.5 mg /3 3-21 mL every 4 [facility] of mL (0.083 00:00: (four) [place] %) 00 hours as Medical nebulizer needed for Bran ch solution Wheezing or Shortness of Breath. Nebulizer Yes [id number] Use as [facility] n[facility] Accessories 3-21 directed. ity of Kit 00:00: Any brand covered by Medical insurance. Branch albuterol Yes [id number] 2.5mg Inhale 3 [facility] 2.5 mg /3 3-21 mL every 4 [facility] of mL (0.083 00:00: (four) [place] %) 00 hours as Medical nebulizer needed for Bran ch solution Wheezing or Shortness of Breath. Nebulizer Yes [id number] Use as [facility] n[facility] Accessories 3-21 directed. ity of Kit 00:00: Any brand [place] 00 covered by Medical insurance. Branch albuterol 2021-0 Yes [id number] 2.5mg Inhale 3 [facility] 2.5 mg /3 3-21 mL every 4 [facility] of mL (0.083 00:00: (four) [place] %) 00 hours as Medical nebulizer needed for Bran ch solution Wheezing or Shortness of Breath. Nebulizer 2021-0 Yes [id number] Use as U n[facility] Accessories 3-21 directed. ity of Kit 00:00: Any brand [place] covered by Medical insurance. Branch albuterol 2021-0 Yes [id number] 2.5mg Inhale 3 [facility] 2.5 mg /3 3-21 mL every 4 [facility] of mL (0.083 00:00: (four) [place] %) 00 hours as Medical nebulizer needed for Bran ch solution Wheezing or Shortness of Breath. Nebulizer 2021-0 Yes [id number] Use as U nivers Accessories 3-21 directed. ity of Kit 00:00: Any brand [place] 00 covered by Medical insurance. Branch albuterol 2021-0 Yes [id number] 2.5mg Inhale 3 [facility] 2.5 mg /3 3-21 mL every 4 [facility] of mL (0.083 00:00: (four) [place] %) 00 hours as Medical nebulizer needed for Bran ch solution Wheezing or Shortness of Breath. Nebulizer 2021-0 Yes [id number] Use as U nivers Accessories 3-21 directed. ity of Kit 00:00: Any brand [place] 00 covered by Medical insurance. Branch albuterol 2021-0 2021- No [id number] 2.5mg Inhale 3 [facility] 2.5 mg /3 3-21 09-07 mL every 4 [facility]y of mL (0.083 00:00: 00:00 (four) [place] %) 00 :00 hours as Medical nebulizer needed for Bran ch solution Wheezing or Shortness of Breath. Nebulizer 2021-0 2021- No [id number] Use as [facility] Accessories 3-21 09-07 directed. it y of Kit 00:00: 00:00 Any brand [place] 00 :00 covered by Medical insurance. Branch albuterol 20212021- No [id number] 2.5mg Inhale 3 [facility] 2.5 mg /3 09-26 mL every 4 [facility] of mL (0.083 00:00: 00:00 (four) [place] %) 00 :00 hours as Medical nebulizer needed for Bran ch solution Wheezing or Shortness of Breath. Nebulizer 2021- No [id number] Use as [facility] Accessories 09-26 directed. it y of Kit 00:00: 00:00 Any brand [place] 00 :00 covered by Medical insurance. Branch PLENVU Yes [facility] 140-9-5.2 1-21 ity of gram PPkS 00:00: 00 Medical Branch PLENVU 2021- Yes [facility] 140-9-5.2 1-21 ity of gram PPkS 00:00: 00 Medical Branch PLENVU 0 Yes [facility] 140-9-5.2 1-21 ity of gram PPkS 00:00: 00 Medical Branch PLENVU 2021-0 Yes [facility] 140-9-5.2 1-21 ity of gram PPkS 00:00: 00 Medical Branch PLENVU 0 Yes [facility] 140-9-5.2 1-21 ity of gram PPkS 00:00: 00 Medical Branch PLENVU 2021-0 2021- No [facility] 140-9-5.2 07-29 ity of gram PPkS 00:00: 00:00 [place] 00 :00 Medical Branch PLENVU 2021-0 2021- No [facility] 140-9-5.2 07-29 ity of gram PPkS 00:00: 00:00 [place] 00 :00 Medical Branch hydrOXYzine 2020-0 Yes [id number] 50mg Take 1 [facility] 50 mg 9-03 tablet by [facility] of tablet 00:00: mouth 00 every 6 Medical (six) Branch hours as needed for Itching. hydrOXYzine 2020-0 Yes [id number] 50mg Take 1 [facility] 50 mg 9-03 tablet by [facility]y of tablet 00:00: mouth 00 every 6 Medical (six) Branch hours as needed for Itching. hydrOXYzine 2020-0 Yes [id number] 50mg Take 1 [facility] 50 mg 9-03 tablet by [facility]y of tablet 00:00: mouth [place] 00 every 6 Medical (six) Branch hours as needed for Itching. hydrOXYzine 2021-0 Yes [id number] 50mg Take 1 [facility] 50 mg 9-03 tablet by ity of tablet 00:00: mouth [place] 00 every 6 Medical (six) Branch hours as needed for Itching. hydrOXYzine 2021-0 Yes [id number] 50mg Take 1 [facility] 50 mg 9-03 tablet by [facility]y of tablet 00:00: mouth [place] 00 every 6 Medical (six) Branch hours as needed for Itching. hydrOXYzine 2021-0 Yes [id number] 50mg Take 1 [facility] 50 mg 9-03 tablet by [facility]y of tablet 00:00: mouth [place] 00 every 6 Medical (six) Branch hours as needed for Itching. hydrOXYzine 2021-0 Yes [id number] 50mg Take 1 [facility] 50 mg 9-03 tablet by [facility]y of tablet 00:00: mouth [place] 00 every 6 Medical (six) Branch hours as needed for Itching. hydrOXYzine 1-0 Yes [id number] 50mg Take 1 [facility] 50 mg 9-03 tablet by [facility]y of tablet 00:00: mouth [place] 00 every 6 Medical (six) Branch hours as needed for Itching. hydrOXYzine 1-0 Yes [id number] 50mg Take 1 [facility] 50 mg 9-03 tablet by [facility]y of tablet 00:00: mouth [place] 00 every 6 Medical (six) Branch hours as needed for Itching. hydrOXYzine 2021-0 Yes [id number] 50mg Take 1 [facility] 50 mg 9-03 tablet by [facility]y of tablet 00:00: mouth [place] 00 every 6 Medical (six) Branch hours as needed for Itching. hydrOXYzine 2021-0 Yes [id number] 50mg Take 1 [facility] 50 mg 9-03 tablet by [facility]y of tablet 00:00: mouth [place] 00 every 6 Medical (six) Branch hours as needed for Itching. hydrOXYzine 2021-0 Yes [id number] 50mg Take 1 [facility] 50 mg 9-03 tablet by [facility]y of tablet 00:00: mouth [place] 00 every 6 Medical (six) Branch hours as needed for Itching. hydrOXYzine 2021-0 Yes [id number] 50mg Take 1 [facility] 50 mg 9-03 tablet by ity of tablet 00:00: mouth [place] 00 every 6 Medical (six) Branch hours as needed for Itching. hydrOXYzine 2021-0 Yes [id number] 50mg Take 1 [facility] 50 mg 9-03 tablet by [facility]y of tablet 00:00: mouth [place] 00 every 6 Medical (six) Branch hours as needed for Itching. hydrOXYzine 2021-0 Yes [id number] 50mg Take 1 [facility] 50 mg 9-03 tablet by [facility]y of tablet 00:00: mouth [place] 00 every 6 Medical (six) Branch hours as needed for Itching. hydrOXYzine 1-0 Yes [id number] 50mg Take 1 [facility] 50 mg 9-03 tablet by ity of tablet 00:00: mouth [place] 00 every 6 Medical (six) Branch hours as needed for Itching. hydrOXYzine 1-0 Yes [id number] 50mg Take 1 [facility] 50 mg 9-03 tablet by ity of tablet 00:00: mouth [place] 00 every 6 Medical (six) Branch hours as needed for Itching. hydrOXYzine 1-0 Yes [id number] 50mg Take 1 [facility] 50 mg 9-03 tablet by [facility] of tablet 00:00: mouth [place] 00 every 6 Medical (six) Branch hours as needed for Itching. hydrOXYzine 2020-0 Yes [id number] 50mg Take 1 [facility] 50 mg 9-03 tablet by [facility] of tablet 00:00: mouth [place] 00 every 6 Medical (six) Branch hours as needed for Itching. hydrOXYzine 1-0 Yes [id number] 50mg Take 1 [facility] 50 mg 9-03 tablet by [facility] of tablet 00:00: mouth [place] 00 every 6 Medical (six) Branch hours as needed for Itching. hydrOXYzine 1-0 Yes [id number] 50mg Take 1 [facility] 50 mg 9-03 tablet by ity of tablet 00:00: mouth [place] 00 every 6 Medical (six) Branch hours as needed for Itching. hydrOXYzine 1-0 Yes [id number] 50mg Take 1 [facility] 50 mg 9-03 tablet by ity of tablet 00:00: mouth [place] 00 every 6 Medical (six) Branch hours as needed for Itching. hydrOXYzine 2021-0 Yes [id number] 50mg Take 1 [facility] 50 mg 9-03 tablet by [facility]y of tablet 00:00: mouth [place] 00 every 6 Medical (six) Branch hours as needed for Itching. hydrOXYzine 1-0 Yes [id number] 50mg Take 1 [facility] 50 mg 9-03 tablet by ity of tablet 00:00: mouth [place] 00 every 6 Medical (six) Branch hours as needed for Itching. hydrOXYzine 2021-0 Yes [id number] 50mg Take 1 [facility] 50 mg 9-03 tablet by ity of tablet 00:00: mouth [place] 00 every 6 Medical (six) Branch hours as needed for Itching. hydrOXYzine 2021-0 Yes [id number] 50mg Take 1 [facility] 50 mg 9-03 tablet by ity of tablet 00:00: mouth [place] 00 every 6 Medical (six) Branch hours as needed for Itching. hydrOXYzine 2021-0 Yes [id number] 50mg Take 1 [facility] 50 mg 9-03 tablet by ity of tablet 00:00: mouth [place] 00 every 6 Medical (six) Branch hours as needed for Itching. hydrOXYzine 1-0 Yes [id number] 50mg Take 1 [facility] 50 mg 9-03 tablet by ity of tablet 00:00: mouth [place] 00 every 6 Medical (six) Branch hours as needed for Itching. hydrOXYzine 1-0 Yes [id number] 50mg Take 1 [facility] 50 mg 9-03 tablet by ity of tablet 00:00: mouth [place] 00 every 6 Medical (six) Branch hours as needed for Itching. hydrOXYzine 1-0 Yes [id number] 50mg Take 1 [facility] 50 mg 9-03 tablet by ity of tablet 00:00: mouth [place] 00 every 6 Medical (six) Branch hours as needed for Itching. hydrOXYzine 2021-0 Yes [id number] 50mg Take 1 [facility] 50 mg 9-03 tablet by ity of tablet 00:00: mouth [place] 00 every 6 Medical (six) Branch hours as needed for Itching. hydrOXYzine 1-0 Yes [id number] 50mg Take 1 [facility] 50 mg 9-03 tablet by ity of tablet 00:00: mouth [place] 00 every 6 Medical (six) Branch hours as needed for Itching. hydrOXYzine 2021-0 Yes [id number] 50mg Take 1 [facility] 50 mg 9-03 tablet by ity of tablet 00:00: mouth [place] 00 every 6 Medical (six) Branch hours as needed for Itching. hydrOXYzine 2021-0 Yes [id number] 50mg Take 1 [facility] 50 mg 9-03 tablet by ity of tablet 00:00: mouth [place] 00 every 6 Medical (six) Branch hours as needed for Itching. hydrOXYzine 2021-0 Yes [id number] 50mg Take 1 [facility] 50 mg 9-03 tablet by ity of tablet 00:00: mouth [place] 00 every 6 Medical (six) Branch hours as needed for Itching. hydrOXYzine 2021-0 Yes [id number] 50mg Take 1 [facility] 50 mg 9-03 tablet by ity of tablet 00:00: mouth [place] 00 every 6 Medical (six) Branch hours as needed for Itching. hydrOXYzine 2021-0 Yes [id number] 50mg Take 1 [facility] 50 mg 9-03 tablet by ity of tablet 00:00: mouth [place] 00 every 6 Medical (six) Branch hours as needed for Itching. hydrOXYzine 1-0 Yes [id number] 50mg Take 1 [facility] 50 mg 9-03 tablet by ity of tablet 00:00: mouth [place] 00 every 6 Medical (six) Branch hours as needed for Itching. hydrOXYzine 1-0 Yes [id number] 50mg Take 1 [facility] 50 mg 9-03 tablet by ity of tablet 00:00: mouth [place] 00 every 6 Medical (six) Branch hours as needed for Itching. hydrOXYzine 1-0 Yes [id number] 50mg Take 1 [facility] 50 mg 9-03 tablet by ity of tablet 00:00: mouth [place] 00 every 6 Medical (six) Branch hours as needed for Itching. hydrOXYzine 1-0 Yes [id number] 50mg Take 1 [facility] 50 mg 9-03 tablet by ity of tablet 00:00: mouth [place] 00 every 6 Medical (six) Branch hours as needed for Itching. hydrOXYzine 1-0 Yes [id number] 50mg Take 1 [facility] 50 mg 9-03 tablet by ity of tablet 00:00: mouth [place] 00 every 6 Medical (six) Branch hours as needed for Itching. hydrOXYzine 1-0 Yes [id number] 50mg Take 1 [facility] 50 mg 9-03 tablet by ity of tablet 00:00: mouth [place] 00 every 6 Medical (six) Branch hours as needed for Itching. hydrOXYzine 2021-0 Yes [id number] 50mg Take 1 [facility] 50 mg 9-03 tablet by ity of tablet 00:00: mouth [place] 00 every 6 Medical (six) Branch hours as needed for Itching. hydrOXYzine 2021-0 Yes [id number] 50mg Take 1 [facility] 50 mg 9-03 tablet by ity of tablet 00:00: mouth [place] 00 every 6 Medical (six) Branch hours as needed for Itching. hydrOXYzine 1-0 Yes [id number] 50mg Take 1 [facility] 50 mg 9-03 tablet by ity of tablet 00:00: mouth [place] 00 every 6 Medical (six) Branch hours as needed for Itching. hydrOXYzine 1-0 Yes [id number] 50mg Take 1 [facility] 50 mg 9-03 tablet by ity of tablet 00:00: mouth [place] 00 every 6 Medical (six) Branch hours as needed for Itching. hydrOXYzine 2020-0 Yes [id number] 50mg Take 1 [facility] 50 mg 9-03 tablet by ity of tablet 00:00: mouth [place] 00 every 6 Medical (six) Branch hours as needed for Itching. hydrOXYzine 2020-0 Yes [id number] 50mg Take 1 [facility] 50 mg 9-03 tablet by ity of tablet 00:00: mouth [place] 00 every 6 Medical (six) Branch hours as needed for Itching. hydrOXYzine 2020-0 Yes [id number] 50mg Take 1 [facility] 50 mg 9-03 tablet by ity of tablet 00:00: mouth [place] 00 every 6 Medical (six) Branch hours as needed for Itching. hydrOXYzine 2020-0 Yes [id number] 50mg Take 1 [facility] 50 mg 9-03 tablet by ity of tablet 00:00: mouth [place] 00 every 6 Medical (six) Branch hours as needed for Itching. hydrOXYzine 2020-0 Yes [id number] 50mg Take 1 [facility] 50 mg 9-03 tablet by ity of tablet 00:00: mouth [place] 00 every 6 Medical (six) Branch hours as needed for Itching. hydrOXYzine 2020-0 Yes [id number] 50mg Take 1 [facility] 50 mg 9-03 tablet by ity of tablet 00:00: mouth [place] 00 every 6 Medical (six) Branch hours as needed for Itching. hydrOXYzine 1-0 Yes [id number] 50mg Take 1 [facility] 50 mg 9-03 tablet by ity of tablet 00:00: mouth [place] 00 every 6 Medical (six) Branch hours as needed for Itching. hydrOXYzine 2020-0 Yes [id number] 50mg Take 1 [facility] 50 mg 9-03 tablet by ity of tablet 00:00: mouth [place] 00 every 6 Medical (six) Branch hours as needed for Itching. hydrOXYzine 1-0 Yes [id number] 50mg Take 1 [facility] 50 mg 9-03 tablet by ity of tablet 00:00: mouth [place] 00 every 6 Medical (six) Branch hours as needed for Itching. hydrOXYzine 1-0 Yes [id number] 50mg Take 1 [facility] 50 mg 9-03 tablet by ity of tablet 00:00: mouth [place] 00 every 6 Medical (six) Branch hours as needed for Itching. hydrOXYzine 1-0 Yes [id number] 50mg Take 1 [facility] 50 mg 9-03 tablet by ity of tablet 00:00: mouth [place] 00 every 6 Medical (six) Branch hours as needed for Itching. hydrOXYzine 1-0 Yes [id number] 50mg Take 1 [facility] 50 mg 9-03 tablet by ity of tablet 00:00: mouth [place] 00 every 6 Medical (six) Branch hours as needed for Itching. hydrOXYzine 2020-0 Yes [id number] 50mg Take 1 [facility] 50 mg 9-03 tablet by ity of tablet 00:00: mouth [place] 00 every 6 Medical (six) Branch hours as needed for Itching. hydrOXYzine 2020-0 Yes [id number] 50mg Take 1 [facility] 50 mg 9-03 tablet by ity of tablet 00:00: mouth [place] 00 every 6 Medical (six) Branch hours as needed for Itching. hydrOXYzine 2020-0 Yes [id number] 50mg Take 1 [facility] 50 mg 9-03 tablet by ity of tablet 00:00: mouth [place] 00 every 6 Medical (six) Branch hours as needed for Itching. hydrOXYzine 1-0 Yes [id number] 50mg Take 1 [facility] 50 mg 9-03 tablet by ity of tablet 00:00: mouth [place] 00 every 6 Medical (six) Branch hours as needed for Itching. hydrOXYzine 1-0 Yes [id number] 50mg Take 1 [facility] 50 mg 9-03 tablet by ity of tablet 00:00: mouth [place] 00 every 6 Medical (six) Branch hours as needed for Itching. hydrOXYzine 1-0 Yes [id number] 50mg Take 1 [facility] 50 mg 9-03 tablet by ity of tablet 00:00: mouth [place] 00 every 6 Medical (six) Branch hours as needed for Itching. hydrOXYzine 2021-0 Yes [id number] 50mg Take 1 [facility] 50 mg 9-03 tablet by ity of tablet 00:00: mouth [place] 00 every 6 Medical (six) Branch hours as needed for Itching. hydrOXYzine 2021-0 Yes [id number] 50mg Take 1 [facility] 50 mg 9-03 tablet by ity of tablet 00:00: mouth [place] 00 every 6 Medical (six) Branch hours as needed for Itching. hydrOXYzine 2021-0 Yes [id number] 50mg Take 1 [facility] 50 mg 9-03 tablet by ity of tablet 00:00: mouth [place] 00 every 6 Medical (six) Branch hours as needed for Itching. hydrOXYzine 1-0 Yes [id number] 50mg Take 1 [facility] 50 mg 9-03 tablet by ity of tablet 00:00: mouth [place] 00 every 6 Medical (six) Branch hours as needed for Itching. hydrOXYzine 1-0 Yes [id number] 50mg Take 1 [facility] 50 mg 9-03 tablet by ity of tablet 00:00: mouth [place] 00 every 6 Medical (six) Branch hours as needed for Itching. hydrOXYzine 2020-0 Yes [id number] 50mg Take 1 [facility] 50 mg 9-03 tablet by ity of tablet 00:00: mouth [place] 00 every 6 Medical (six) Branch hours as needed for Itching. hydrOXYzine 1-0 Yes [id number] 50mg Take 1 [facility] 50 mg 9-03 tablet by ity of tablet 00:00: mouth [place] 00 every 6 Medical (six) Branch hours as needed for Itching. hydrOXYzine 1-0 Yes [id number] 50mg Take 1 [facility] 50 mg 9-03 tablet by ity of tablet 00:00: mouth [place] 00 every 6 Medical (six) Branch hours as needed for Itching. hydrOXYzine 1-0 Yes [id number] 50mg Take 1 [facility] 50 mg 9-03 tablet by ity of tablet 00:00: mouth [place] 00 every 6 Medical (six) Branch hours as needed for Itching. hydrOXYzine 2021-0 Yes [id number] 50mg Take 1 [facility] 50 mg 9-03 tablet by ity of tablet 00:00: mouth [place] 00 every 6 Medical (six) Branch hours as needed for Itching. hydrOXYzine 2021-0 Yes [id number] 50mg Take 1 [facility] 50 mg 9-03 tablet by ity of tablet 00:00: mouth [place] 00 every 6 Medical (six) Branch hours as needed for Itching. hydrOXYzine 2021-0 Yes [id number] 50mg Take 1 [facility] 50 mg 9-03 tablet by ity of tablet 00:00: mouth [place] 00 every 6 Medical (six) Branch hours as needed for Itching. hydrOXYzine 2021-0 Yes [id number] 50mg Take 1 [facility] 50 mg 9-03 tablet by ity of tablet 00:00: mouth [place] 00 every 6 Medical (six) Branch hours as needed for Itching. hydrOXYzine 1-0 Yes [id number] 50mg Take 1 [facility] 50 mg 9-03 tablet by ity of tablet 00:00: mouth [place] 00 every 6 Medical (six) Branch hours as needed for Itching. hydrOXYzine 1-0 Yes [id number] 50mg Take 1 [facility] 50 mg 9-03 tablet by ity of tablet 00:00: mouth [place] 00 every 6 Medical (six) Branch hours as needed for Itching. hydrOXYzine 2020-0 Yes [id number] 50mg Take 1 [facility] 50 mg 9-03 tablet by ity of tablet 00:00: mouth [place] 00 every 6 Medical (six) Branch hours as needed for Itching. hydrOXYzine 1-0 Yes [id number] 50mg Take 1 [facility] 50 mg 9-03 tablet by ity of tablet 00:00: mouth [place] 00 every 6 Medical (six) Branch hours as needed for Itching. hydrOXYzine 1-0 Yes [id number] 50mg Take 1 [facility] 50 mg 9-03 tablet by ity of tablet 00:00: mouth [place] 00 every 6 Medical (six) Branch hours as needed for Itching. hydrOXYzine 1-0 Yes [id number] 50mg Take 1 [facility] 50 mg 9-03 tablet by ity of tablet 00:00: mouth [place] 00 every 6 Medical (six) Branch hours as needed for Itching. hydrOXYzine 2021-0 Yes [id number] 50mg Take 1 [facility] 50 mg 9-03 tablet by ity of tablet 00:00: mouth [place] 00 every 6 Medical (six) Branch hours as needed for Itching. hydrOXYzine 2021-0 Yes [id number] 50mg Take 1 [facility] 50 mg 9-03 tablet by ity of tablet 00:00: mouth [place] 00 every 6 Medical (six) Branch hours as needed for Itching. hydrOXYzine 2021-0 Yes [id number] 50mg Take 1 [facility] 50 mg 9-03 tablet by ity of tablet 00:00: mouth [place] 00 every 6 Medical (six) Branch hours as needed for Itching. hydrOXYzine 2021-0 Yes [id number] 50mg Take 1 [facility] 50 mg 9-03 tablet by ity of tablet 00:00: mouth [place] 00 every 6 Medical (six) Branch hours as needed for Itching. hydrOXYzine 2021-0 Yes [id number] 50mg Take 1 [facility] 50 mg 9-03 tablet by ity of tablet 00:00: mouth [place] 00 every 6 Medical (six) Branch hours as needed for Itching. hydrOXYzine 1-0 Yes [id number] 50mg Take 1 [facility] 50 mg 9-03 tablet by ity of tablet 00:00: mouth [place] 00 every 6 Medical (six) Branch hours as needed for Itching. hydrOXYzine 1-0 Yes [id number] 50mg Take 1 [facility] 50 mg 9-03 tablet by ity of tablet 00:00: mouth [place] 00 every 6 Medical (six) Branch hours as needed for Itching. hydrOXYzine 2020-0 Yes [id number] 50mg Take 1 [facility] 50 mg 9-03 tablet by ity of tablet 00:00: mouth [place] 00 every 6 Medical (six) Branch hours as needed for Itching. hydrOXYzine 1-0 Yes [id number] 50mg Take 1 [facility] 50 mg 9-03 tablet by ity of tablet 00:00: mouth [place] 00 every 6 Medical (six) Branch hours as needed for Itching. hydrOXYzine 1-0 Yes [id number] 50mg Take 1 [facility] 50 mg 9-03 tablet by ity of tablet 00:00: mouth [place] 00 every 6 Medical (six) Branch hours as needed for Itching. hydrOXYzine 1-0 Yes [id number] 50mg Take 1 [facility] 50 mg 9-03 tablet by ity of tablet 00:00: mouth [place] 00 every 6 Medical (six) Branch hours as needed for Itching. hydrOXYzine 2021-0 Yes [id number] 50mg Take 1 [facility] 50 mg 9-03 tablet by ity of tablet 00:00: mouth [place] 00 every 6 Medical (six) Branch hours as needed for Itching. hydrOXYzine 2021-0 Yes [id number] 50mg Take 1 [facility] 50 mg 9-03 tablet by ity of tablet 00:00: mouth [place] 00 every 6 Medical (six) Branch hours as needed for Itching. hydrOXYzine 1-0 Yes [id number] 50mg Take 1 [facility] 50 mg 9-03 tablet by ity of tablet 00:00: mouth [place] 00 every 6 Medical (six) Branch hours as needed for Itching. hydrOXYzine 1-0 Yes [id number] 50mg Take 1 [facility] 50 mg 9-03 tablet by ity of tablet 00:00: mouth [place] 00 every 6 Medical (six) Branch hours as needed for Itching. hydrOXYzine 1-0 Yes [id number] 50mg Take 1 [facility] 50 mg 9-03 tablet by ity of tablet 00:00: mouth [place] 00 every 6 Medical (six) Branch hours as needed for Itching. hydrOXYzine 2020-0 Yes [id number] 50mg Take 1 [facility] 50 mg 9-03 tablet by ity of tablet 00:00: mouth [place] 00 every 6 Medical (six) Branch hours as needed for Itching. hydrOXYzine 2020-0 Yes [id number] 50mg Take 1 [facility] 50 mg 9-03 tablet by ity of tablet 00:00: mouth [place] 00 every 6 Medical (six) Branch hours as needed for Itching. hydrOXYzine 1-0 Yes [id number] 50mg Take 1 [facility] 50 mg 9-03 tablet by ity of tablet 00:00: mouth [place] 00 every 6 Medical (six) Branch hours as needed for Itching. hydrOXYzine 1-0 Yes [id number] 50mg Take 1 [facility] 50 mg 9-03 tablet by ity of tablet 00:00: mouth [place] 00 every 6 Medical (six) Branch hours as needed for Itching. hydrOXYzine 1-0 Yes [id number] 50mg Take 1 [facility] 50 mg 9-03 tablet by ity of tablet 00:00: mouth [place] 00 every 6 Medical (six) Branch hours as needed for Itching. hydrOXYzine 2021-0 Yes [id number] 50mg Take 1 [facility] 50 mg 9-03 tablet by ity of tablet 00:00: mouth [place] 00 every 6 Medical (six) Branch hours as needed for Itching. hydrOXYzine 1-0 Yes [id number] 50mg Take 1 [facility] 50 mg 9-03 tablet by ity of tablet 00:00: mouth [place] 00 every 6 Medical (six) Branch hours as needed for Itching. hydrOXYzine 2021-0 Yes [id number] 50mg Take 1 [facility] 50 mg 9-03 tablet by ity of tablet 00:00: mouth [place] 00 every 6 Medical (six) Branch hours as needed for Itching. hydrOXYzine 2021-0 Yes [id number] 50mg Take 1 [facility] 50 mg 9-03 tablet by ity of tablet 00:00: mouth [place] 00 every 6 Medical (six) Branch hours as needed for Itching. hydrOXYzine 2021-0 Yes [id number] 50mg Take 1 [facility] 50 mg 9-03 tablet by ity of tablet 00:00: mouth [place] 00 every 6 Medical (six) Branch hours as needed for Itching. hydrOXYzine 2021-0 Yes [id number] 50mg Take 1 [facility] 50 mg 9-03 tablet by ity of tablet 00:00: mouth [place] 00 every 6 Medical (six) Branch hours as needed for Itching. hydrOXYzine 1-0 Yes [id number] 50mg Take 1 [facility] 50 mg 9-03 tablet by ity of tablet 00:00: mouth [place] 00 every 6 Medical (six) Branch hours as needed for Itching. hydrOXYzine 1-0 Yes [id number] 50mg Take 1 [facility] 50 mg 9-03 tablet by ity of tablet 00:00: mouth [place] 00 every 6 Medical (six) Branch hours as needed for Itching. hydrOXYzine 1-0 Yes [id number] 50mg Take 1 [facility] 50 mg 9-03 tablet by [facility]y of tablet 00:00: mouth [place] 00 every 6 Medical (six) Branch hours as needed for Itching. hydrOXYzine 1-0 Yes [id number] 50mg Take 1 [facility] 50 mg 9-03 tablet by ity of tablet 00:00: mouth [place] 00 every 6 Medical (six) Branch hours as needed for Itching. hydrOXYzine 2021-0 Yes [id number] 50mg Take 1 [facility] 50 mg 9-03 tablet by ity of tablet 00:00: mouth [place] 00 every 6 [facility] (six) Branch hours as needed for Itching. hydrOXYzine 2021-0 Yes [id number] 50mg Take 1 [facility]-03 tablet by [facility] tablet 00:00: mouth [place] 00 every 6 [facility] (six) Branch hours as needed for Itching. hydrOXYzine 2021-0 Yes [id number] 50mg Take 1 [facility] 50 mg 9-03 tablet by [facility] tablet 00:00: mouth [place] 00 every 6 [facility] (six) Branch hours as needed for Itching. hydrOXYzine 2021-0 Yes [id number] 50mg Take 1 [facility] 50 mg 9-03 tablet by [facility] tablet 00:00: mouth [place] 00 every 6 [facility] (six) Branch hours as needed for Itching. hydrOXYzine 2021-0 Yes [id number] 50mg Take 1 [facility] 50 mg 9-03 tablet by [facility] tablet 00:00: mouth [place] 00 every 6 [facility] (six) Branch hours as needed for Itching. hydrOXYzine 1-0 Yes [id number] 50mg Take 1 [facility] 50 mg 9-03 tablet by [facility] tablet 00:00: mouth [place] 00 every 6 [facility] (six) Branch hours as needed for Itching. hydrOXYzine 2020-0 Yes [id number] 50mg Take 1 [facility] 50 mg 9-03 tablet by [facility] tablet 00:00: mouth [place] 00 every 6 [facility] (six) Branch hours as needed for Itching. hydrOXYzine 2020-0 Yes [id number] 50mg Take 1 [facility] 50 mg 9-03 tablet by [facility] tablet 00:00: mouth [place] 00 every 6 [facility] (six) Branch hours as needed for Itching. hydrOXYzine 1-0 Yes [id number] 50mg Take 1 [facility] 50 mg 9-03 tablet by [facility] tablet 00:00: mouth [place] 00 every 6 [facility] (six) Branch hours as needed for Itching. hydrOXYzine 1-0 Yes [id number] 50mg Take 1 [facility] 50 mg 9-03 tablet by [facility] tablet 00:00: mouth [place] 00 every 6 [facility] (six) Branch hours as needed for Itching. hydrOXYzine 1-0 Yes [id number] 50mg Take 1 [facility] 50 mg 9-03 tablet by [facility] tablet 00:00: mouth [place] 00 every 6 [facility] (six) Branch hours as needed for Itching. hydrOXYzine 2021-0 Yes [id number] 50mg Take 1 [facility] 50 mg 9-03 tablet by [facility] tablet 00:00: mouth [place] 00 every 6 [facility] (six) Branch hours as needed for Itching. hydrOXYzine 2021-0 Yes [id number] 50mg Take 1 [facility] 50 mg 9-03 tablet by [facility] tablet 00:00: mouth [place] 00 every 6 [facility] (six) Branch hours as needed for Itching. hydrOXYzine 2021-0 Yes [id number] 50mg Take 1 [facility] 50 mg 9-03 tablet by [facility] tablet 00:00: mouth [place] 00 every 6 [facility] (six) Branch hours as needed for Itching. hydrOXYzine 2021-0 Yes [id number] 50mg Take 1 [facility] 50 mg 9-03 tablet by [facility] tablet 00:00: mouth [place] 00 every 6 [facility] (six) Branch hours as needed for Itching. hydrOXYzine 2021-0 Yes [id number] 50mg Take 1 [facility] 50 mg 9-03 tablet by [facility] tablet 00:00: mouth [place] 00 every 6 [facility] (six) Branch hours as needed for Itching. hydrOXYzine 2021-0 Yes [id number] 50mg Take 1 [facility] 50 mg 9-03 tablet by [facility] tablet 00:00: mouth [place] 00 every 6 [facility] (six) Branch hours as needed for Itching. hydrOXYzine 1-0 Yes [id number] 50mg Take 1 [facility] 50 mg 9-03 tablet by [facility] tablet 00:00: mouth [place] 00 every 6 [facility] (six) Branch hours as needed for Itching. hydrOXYzine 1-0 Yes [id number] 50mg Take 1 [facility] 50 mg 9-03 tablet by [facility] tablet 00:00: mouth [place] 00 every 6 [facility] (six) Branch hours as needed for Itching. hydrOXYzine 2021-0 Yes [id number] 50mg Take 1 [facility] 50 mg 9-03 tablet by [facility] tablet 00:00: mouth [place] 00 every 6 [facility] (six) Branch hours as needed for Itching. hydrOXYzine 2021-0 Yes [id number] 50mg Take 1 [facility] 50 mg 9-03 tablet by [facility] tablet 00:00: mouth [place] 00 every 6 [facility] (six) Branch hours as needed for Itching. hydrOXYzine 2021-0 Yes [id number] 50mg Take 1 [facility] 50 mg 9-03 tablet by [facility] tablet 00:00: mouth [place] 00 every 6 [facility] (six) Branch hours as needed for Itching. hydrOXYzine 2021-0 Yes [id number] 50mg Take 1 [facility] 50 mg 9-03 tablet by [facility] tablet 00:00: mouth [place] 00 every 6 [facility] (six) Branch hours as needed for Itching. hydrOXYzine 2021-0 Yes [id number] 50mg Take 1 [facility] 50 mg 9-03 tablet by [facility] tablet 00:00: mouth [place] 00 every 6 [facility] (six) Branch hours as needed for Itching. hydrOXYzine 2021-0 Yes [id number] 50mg Take 1 [facility] 50 mg 9-03 tablet by [facility] tablet 00:00: mouth [place] 00 every 6 [facility] (six) Branch hours as needed for Itching. hydrOXYzine 1-0 Yes [id number] 50mg Take 1 [facility] 50 mg 9-03 tablet by [facility] tablet 00:00: mouth [place] 00 every 6 [facility] (six) Branch hours as needed for Itching. hydrOXYzine 1-0 Yes [id number] 50mg Take 1 [facility] 50 mg 9-03 tablet by [facility] tablet 00:00: mouth [place] 00 every 6 [facility] (six) Branch hours as needed for Itching. hydrOXYzine 1-0 Yes [id number] 50mg Take 1 [facility] 50 mg 9-03 tablet by [facility] tablet 00:00: mouth [place] 00 every 6 [facility] (six) Branch hours as needed for Itching. hydrOXYzine 2020-0 Yes [id number] 50mg Take 1 [facility] 50 mg 9-03 tablet by [facility] tablet 00:00: mouth [place] 00 every 6 [facility] (six) Branch hours as needed for Itching. hydrOXYzine 1-0 Yes [id number] 50mg Take 1 [facility] 50 mg 9-03 tablet by [facility] tablet 00:00: mouth [place] 00 every 6 [facility] (six) Branch hours as needed for Itching. hydrOXYzine 1-0 Yes [id number] 50mg Take 1 [facility] 50 mg 9-03 tablet by [facility] tablet 00:00: mouth [place] 00 every 6 [facility] (six) Branch hours as needed for Itching. hydrOXYzine 1-0 Yes [id number] 50mg Take 1 [facility] 50 mg 9-03 tablet by [facility] tablet 00:00: mouth [place] 00 every 6 [facility] (six) Branch hours as needed for Itching. hydrOXYzine 2021-0 Yes [id number] 50mg Take 1 [facility] 50 mg 9-03 tablet by [facility] tablet 00:00: mouth [place] 00 every 6 [facility] (six) Branch hours as needed for Itching. hydrOXYzine 1-0 Yes [id number] 50mg Take 1 [facility] 50 mg 9-03 tablet by [facility] tablet 00:00: mouth [place] 00 every 6 [facility] (six) Branch hours as needed for Itching. hydrOXYzine 2021-0 Yes [id number] 50mg Take 1 [facility] 50 mg 9-03 tablet by [facility] tablet 00:00: mouth [place] 00 every 6 [facility] (six) Branch hours as needed for Itching. hydrOXYzine 2021-0 Yes [id number] 50mg Take 1 [facility] 50 mg 9-03 tablet by [facility] tablet 00:00: mouth [place] 00 every 6 [facility] (six) Branch hours as needed for Itching. hydrOXYzine 2021-0 Yes [id number] 50mg Take 1 [facility] 50 mg 9-03 tablet by [facility] tablet 00:00: mouth [place] 00 every 6 [facility] (six) Branch hours as needed for Itching. hydrOXYzine 1-0 Yes [id number] 50mg Take 1 [facility] 50 mg 9-03 tablet by [facility] tablet 00:00: mouth [place] 00 every 6 [facility] (six) Branch hours as needed for Itching. hydrOXYzine 1-0 Yes [id number] 50mg Take 1 [facility] 50 mg 9-03 tablet by [facility] tablet 00:00: mouth [place] 00 every 6 [facility] (six) Branch hours as needed for Itching. hydrOXYzine 1-0 Yes [id number] 50mg Take 1 [facility] 50 mg 9-03 tablet by [facility] tablet 00:00: mouth [place] 00 every 6 [facility] (six) Branch hours as needed for Itching. hydrOXYzine 2021-0 Yes [id number] 50mg Take 1 [facility] 50 mg 9-03 tablet by [facility] tablet 00:00: mouth [place] 00 every 6 [facility] (six) Branch hours as needed for Itching. hydrOXYzine 1-0 Yes [id number] 50mg Take 1 [facility] 50 mg 9-03 tablet by [facility] tablet 00:00: mouth [place] 00 every 6 [facility] (six) Branch hours as needed for Itching. hydrOXYzine 2021-0 Yes [id number] 50mg Take 1 [facility] 50 mg 9-03 tablet by [facility] tablet 00:00: mouth [place] 00 every 6 [facility] (six) Branch hours as needed for Itching. hydrOXYzine 2021-0 Yes [id number] 50mg Take 1 [facility] 50 mg 9-03 tablet by [facility] tablet 00:00: mouth [place] 00 every 6 [facility] (six) Branch hours as needed for Itching. hydrOXYzine 2020-0 Yes [id number] 50mg Take 1 [facility] 50 mg 9-03 tablet by [facility] tablet 00:00: mouth [place] 00 every 6 [facility] (six) Branch hours as needed for Itching. hydrOXYzine 2020-0 Yes [id number] 50mg Take 1 [facility] 50 mg 9-03 tablet by [facility] tablet 00:00: mouth [place] 00 every 6 [facility] (six) Branch hours as needed for Itching. hydrOXYzine 2020-0 Yes [id number] 50mg Take 1 [facility] 50 mg 9-03 tablet by [facility] tablet 00:00: mouth [place] 00 every 6 [facility] (six) Branch hours as needed for Itching. hydrOXYzine 2020-0 Yes [id number] 50mg Take 1 [facility] 50 mg 9-03 tablet by [facility] tablet 00:00: mouth [place] 00 every 6 [facility] (six) Branch hours as needed for Itching. hydrOXYzine 2020-0 Yes [id number] 50mg Take 1 [facility] 50 mg 9-03 tablet by [facility] tablet 00:00: mouth [place] 00 every 6 [facility] (six) Branch hours as needed for Itching. hydrOXYzine 2020-0 2023- No [id number] 50mg Take 1 [facility] 50 mg 9-03 02-02 tablet by [facility] tablet 00:00: 00:00 mouth [place] 00 :00 every 6 [facility] (six) Branch hours as needed for Itching. hydrOXYzine 2020-0 2023- No [id number] 50mg Take 1 [facility] 50 mg 9-03 02-02 tablet by [facility] tablet 00:00: 00:00 mouth [place] 00 :00 every 6 [facility] (six) Branch hours as needed for Itching. lipase-prot 2020-0 Yes [id number] Take up to [facility] 7-16 7 capsules [facility] y of e ([facility]) 00:00: by mouth [place] 36,000-114, 00 with meals [facility] 000- and 3 with Branch 180,000 each unit CpDR snack. Up to 3 times a day. lipase-prot 2020-0 Yes [id number] Take up to [facility] 7-16 7 capsules it y of e ([facility]) 00:00: by mouth [place] 36,000-114, 00 with meals [facility] 000- and 3 with Branch 180,000 each unit CpDR snack. Up to 3 times a day. lipase-prot 2020-0 Yes [id number] Take up to [facility] 7-16 7 capsules [facility] y of e ([facility]) 00:00: by mouth [place] 36,000-114, 00 with meals [facility] 000- and 3 with Branch 180,000 each unit CpDR snack. Up to 3 times a day. lipase-prot 0 Yes [id number] Take up to [facility] 7-16 7 capsules [facility] y of e (CRE[facility]) 00:00: by mouth [place] 36,000-114, 00 with meals [facility] 000- and 3 with Branch 180,000 each unit CpDR snack. Up to 3 times a day. lipase-prot 0 Yes [id number] Take up to [facility] 7-16 7 capsules [facility] y of e (CRE[facility]) 00:00: by mouth [place] 36,000-114, 00 with meals [facility] 000- and 3 with Branch 180,000 each unit CpDR snack. Up to 3 times a day. lipase-prot Yes [id number] Take up to [facility] 7-16 7 capsules it y of e (CRE[facility]) 00:00: by mouth [place] 36,000-114, 00 with meals [facility] 000- and 3 with Branch 180,000 each unit CpDR snack. Up to 3 times a day. lipase-prot 0 Yes [id number] Take up to [facility] 7-16 7 capsules it y of e (CRE[facility]) 00:00: by mouth [place] 36,000-114, 00 with meals [facility] 000- and 3 with Branch 180,000 each unit CpDR snack. Up to 3 times a day. lipase-prot 2020-0 Yes [id number] Take up to [facility] 7-16 7 capsules it y of e (CRE[facility]) 00:00: by mouth [place] 36,000-114, 00 with meals [facility] 000- and 3 with Branch 180,000 each unit CpDR snack. Up to 3 times a day. lipase-prot 2020-0 Yes [id number] Take up to [facility] 7-16 7 capsules it y of e (CRE[facility]) 00:00: by mouth [place] 36,000-114, 00 with meals [facility] 000- and 3 with Branch 180,000 each unit CpDR snack. Up to 3 times a day. lipase-prot 2020-0 Yes [id number] Take up to [facility] 7-16 7 capsules it y of e (CRE[facility]) 00:00: by mouth [place] 36,000-114, 00 with meals [facility] 000- and 3 with Branch 180,000 each unit CpDR snack. Up to 3 times a day. lipase-prot 2020-0 Yes [id number] Take up to [facility] 7-16 7 capsules it y of e (CRE[facility]) 00:00: by mouth [place] 36,000-114, 00 with meals [facility] 000- and 3 with Branch 180,000 each unit CpDR snack. Up to 3 times a day. lipase-prot 2020-0 Yes [id number] Take up to [facility] 7-16 7 capsules it y of e (CRE[facility]) 00:00: by mouth [place] 36,000-114, 00 with meals [facility] 000- and 3 with Branch 180,000 each unit CpDR snack. Up to 3 times a day. lipase-prot 2020-0 Yes [id number] Take up to [facility] 7-16 7 capsules it y of e (CRE[facility]) 00:00: by mouth [place] 36,000-114, 00 with meals [facility] 000- and 3 with Branch 180,000 each unit CpDR snack. Up to 3 times a day. lipase-prot 2020-0 Yes [id number] Take up to [facility] 7-16 7 capsules it y of e (CRE[facility]) 00:00: by mouth [place] 36,000-114, 00 with meals [facility] 000- and 3 with Branch 180,000 each unit CpDR snack. Up to 3 times a day. lipase-prot 2020-0 Yes [id number] Take up to [facility] 7-16 7 capsules it y of e (CRE[facility]) 00:00: by mouth [place] 36,000-114, 00 with meals [facility] 000- and 3 with Branch 180,000 each unit CpDR snack. Up to 3 times a day. lipase-prot 2020-0 Yes [id number] Take up to [facility] 7-16 7 capsules it y of e (CRE[facility]) 00:00: by mouth [place] 36,000-114, 00 with meals [facility] 000- and 3 with Branch 180,000 each unit CpDR snack. Up to 3 times a day. lipase-prot 0 Yes [id number] Take up to [facility] 7-16 7 capsules it y of e (CRE[facility]) 00:00: by mouth [place] 36,000-114, 00 with meals [facility] 000- and 3 with Branch 180,000 each unit CpDR snack. Up to 3 times a day. lipase-prot 0 Yes [id number] Take up to [facility] 7-16 7 capsules it y of e (CRE[facility]) 00:00: by mouth [place] 36,000-114, 00 with meals [facility] 000- and 3 with Branch 180,000 each unit CpDR snack. Up to 3 times a day. lipase-prot Yes [id number] Take up to [facility] 7-16 7 capsules it y of e ([facility]) 00:00: by mouth [place] 36,000-114, 00 with meals [facility] 000- and 3 with Branch 180,000 each unit CpDR snack. Up to 3 times a day. lipase-prot 0 Yes [id number] Take up to [facility] 7-16 7 capsules it y of e ([facility]) 00:00: by mouth [place] 36,000-114, 00 with meals [facility] 000- and 3 with Branch 180,000 each unit CpDR snack. Up to 3 times a day. lipase-prot 0 Yes [id number] Take up to [facility] 7-16 7 capsules it y of e (CRE[facility]) 00:00: by mouth [place] 36,000-114, 00 with meals [facility] 000- and 3 with Branch 180,000 each unit CpDR snack. Up to 3 times a day. lipase-prot 0 Yes [id number] Take up to [facility] 7-16 7 capsules it y of e (CRE[facility]) 00:00: by mouth [place] 36,000-114, 00 with meals [facility] 000- and 3 with Branch 180,000 each unit CpDR snack. Up to 3 times a day. lipase-prot 2020-0 Yes [id number] Take up to [facility] 7-16 7 capsules it y of e ([facility]) 00:00: by mouth [place] 36,000-114, 00 with meals [facility] 000- and 3 with Branch 180,000 each unit CpDR snack. Up to 3 times a day. lipase-prot 0 Yes [id number] Take up to [facility] 7-16 7 capsules it y of e ([facility]) 00:00: by mouth [place] 36,000-114, 00 with meals [facility] 000- and 3 with Branch 180,000 each unit CpDR snack. Up to 3 times a day. lipase-prot 0 Yes [id number] Take up to [facility] 7-16 7 capsules it y of e ([facility]) 00:00: by mouth [place] 36,000-114, 00 with meals [facility] 000- and 3 with Branch 180,000 each unit CpDR snack. Up to 3 times a day. lipase-prot Yes [id number] Take up to [facility] 7-16 7 capsules it y of e (CRE[facility]) 00:00: by mouth [place] 36,000-114, 00 with meals [facility] d[facility] 000- and 3 with Branch 180,000 each unit CpDR snack. Up to 3 times a day. lipase-prot 0 Yes [id number] Take up to [facility] 7-16 7 capsules it y of e (CRE[facility]) 00:00: by mouth [place] 36,000-114, 00 with meals [facility] 000- and 3 with Branch 180,000 each unit CpDR snack. Up to 3 times a day. lipase-prot 2020-0 Yes [id number] Take up to [facility] 7-16 7 capsules it y of e (CRE[facility]) 00:00: by mouth [place] 36,000-114, 00 with meals Me d[facility] 000- and 3 with Branch 180,000 each unit CpDR snack. Up to 3 times a day. lipase-prot 2020-0 Yes [id number] Take up to [facility] 7-16 7 capsules it y of e (CRE[facility]) 00:00: by mouth [place] 36,000-114, 00 with meals Me d[facility] 000- and 3 with Branch 180,000 each unit CpDR snack. Up to 3 times a day. lipase-prot 2020-0 Yes [id number] Take up to [facility] 7-16 7 capsules it y of e ([facility]) 00:00: by mouth [place] 36,000-114, 00 with meals [facility] 000- and 3 with Branch 180,000 each unit CpDR snack. Up to 3 times a day. lipase-prot 2020-0 Yes [id number] Take up to [facility] 7-16 7 capsules it y of e ([facility]) 00:00: by mouth [place] 36,000-114, 00 with meals Me d[facility] 000- and 3 with Branch 180,000 each unit CpDR snack. Up to 3 times a day. lipase-prot 2020-0 Yes [id number] Take up to [facility] 7-16 7 capsules it y of e ([facility]) 00:00: by mouth [place] 36,000-114, 00 with meals Me d[facility] 000- and 3 with Branch 180,000 each unit CpDR snack. Up to 3 times a day. lipase-prot 2020-0 Yes [id number] Take up to [facility] 7-16 7 capsules it y of e ([facility]) 00:00: by mouth [place] 36,000-114, 00 with meals [facility] 000- and 3 with Branch 180,000 each unit CpDR snack. Up to 3 times a day. lipase-prot 2020-0 Yes [id number] Take up to [facility] 7-16 7 capsules it y of e (CRE[facility]) 00:00: by mouth [place] 36,000-114, 00 with meals Me d[facility] 000- and 3 with Branch 180,000 each unit CpDR snack. Up to 3 times a day. lipase-prot 2020-0 Yes [id number] Take up to [facility] 7-16 7 capsules it y of e (CRE[facility]) 00:00: by mouth [place] 36,000-114, 00 with meals Me d[facility] 000- and 3 with Branch 180,000 each unit CpDR snack. Up to 3 times a day. lipase-prot 2020-0 Yes [id number] Take up to [facility] 7-16 7 capsules it y of e (CRE[facility]) 00:00: by mouth [place] 36,000-114, 00 with meals Me d[facility] 000- and 3 with Branch 180,000 each unit CpDR snack. Up to 3 times a day. lipase-prot 0 Yes [id number] Take up to [facility] 7-16 7 capsules it y of e (CRE[facility]) 00:00: by mouth [place] 36,000-114, 00 with meals Me d[facility] 000- and 3 with Branch 180,000 each unit CpDR snack. Up to 3 times a day. lipase-prot 0 Yes [id number] Take up to [facility] 7-16 7 capsules it y of e (CRE[facility]) 00:00: by mouth [place] 36,000-114, 00 with meals Me d[facility] 000- and 3 with Branch 180,000 each unit CpDR snack. Up to 3 times a day. lipase-prot Yes [id number] Take up to [facility] 7-16 7 capsules it y of e (CRE[facility]) 00:00: by mouth [place] 36,000-114, 00 with meals Me d[facility] 000- and 3 with Branch 180,000 each unit CpDR snack. Up to 3 times a day. lipase-prot 0 Yes [id number] Take up to [facility] 7-16 7 capsules it y of e (CRE[facility]) 00:00: by mouth [place] 36,000-114, 00 with meals Me d[facility] 000- and 3 with Branch 180,000 each unit CpDR snack. Up to 3 times a day. lipase-prot 0 Yes [id number] Take up to [facility] 7-16 7 capsules it y of e (CRE[facility]) 00:00: by mouth [place] 36,000-114, 00 with meals Me d[facility] 000- and 3 with Branch 180,000 each unit CpDR snack. Up to 3 times a day. lipase-prot 0 Yes [id number] Take up to [facility] 7-16 7 capsules it y of e (CRE[facility]) 00:00: by mouth [place] 36,000-114, 00 with meals Me d[facility] 000- and 3 with Branch 180,000 each unit CpDR snack. Up to 3 times a day. lipase-prot 2020-0 Yes [id number] Take up to [facility] 7-16 7 capsules it y of e (CRE[facility]) 00:00: by mouth [place] 36,000-114, 00 with meals Me d[facility] 000- and 3 with Branch 180,000 each unit CpDR snack. Up to 3 times a day. lipase-prot 0 Yes [id number] Take up to [facility] 7-16 7 capsules it y of e (CRE[facility]) 00:00: by mouth [place] 36,000-114, 00 with meals Me dical 000- and 3 with Branch 180,000 each unit CpDR snack. Up to 3 times a day. lipase-prot 0 Yes [id number] Take up to [facility] 7-16 7 capsules it y of e (CRE[facility]) 00:00: by mouth [place] 36,000-114, 00 with meals Me d[facility] 000- and 3 with Branch 180,000 each unit CpDR snack. Up to 3 times a day. lipase-prot Yes [id number] Take up to [facility] 7-16 7 capsules it y of e (CRE[facility]) 00:00: by mouth [place] 36,000-114, 00 with meals Me dical 000- and 3 with Branch 180,000 each unit CpDR snack. Up to 3 times a day. lipase-prot 0 Yes [id number] Take up to [facility] 7-16 7 capsules it y of e (CRE[facility]) 00:00: by mouth [place] 36,000-114, 00 with meals Me dical 000- and 3 with Branch 180,000 each unit CpDR snack. Up to 3 times a day. lipase-prot 2020-0 Yes [id number] Take up to [facility] 7-16 7 capsules it y of e (CRE[facility]) 00:00: by mouth [place] 36,000-114, 00 with meals Me dical 000- and 3 with Branch 180,000 each unit CpDR snack. Up to 3 times a day. lipase-prot 2020-0 Yes [id number] Take up to [facility] 7-16 7 capsules it y of e (CRE[facility]) 00:00: by mouth [place] 36,000-114, 00 with meals Me dical 000- and 3 with Branch 180,000 each unit CpDR snack. Up to 3 times a day. lipase-prot 2020-0 Yes [id number] Take up to [facility] 7-16 7 capsules it y of e (CRE[facility]) 00:00: by mouth [place] 36,000-114, 00 with meals Me dical 000- and 3 with Branch 180,000 each unit CpDR snack. Up to 3 times a day. lipase-prot 2020-0 Yes [id number] Take up to [facility] 7-16 7 capsules it y of e (CRE[facility]) 00:00: by mouth [place] 36,000-114, 00 with meals Me dical 000- and 3 with Branch 180,000 each unit CpDR snack. Up to 3 times a day. lipase-prot 2020-0 Yes [id number] Take up to [facility] 7-16 7 capsules it y of e (CRE[facility]) 00:00: by mouth [place] 36,000-114, 00 with meals Me dical 000- and 3 with Branch 180,000 each unit CpDR snack. Up to 3 times a day. lipase-prot 2020-0 Yes [id number] Take up to [facility] 7-16 7 capsules it y of e (CRE[facility]) 00:00: by mouth [place] 36,000-114, 00 with meals Me dical 000- and 3 with Branch 180,000 each unit CpDR snack. Up to 3 times a day. lipase-prot 2020-0 Yes [id number] Take up to [facility] 7-16 7 capsules it y of e (CREON) 00:00: by mouth [place] 36,000-114, 00 with meals Me dical 000- and 3 with Branch 180,000 each unit CpDR snack. Up to 3 times a day. lipase-prot 2020-0 Yes [id number] Take up to [facility] 7-16 7 capsules it y of e (CREON) 00:00: by mouth [place] 36,000-114, 00 with meals Me dical 000- and 3 with Branch 180,000 each unit CpDR snack. Up to 3 times a day. lipase-prot 2020-0 Yes [id number] Take up to [facility] 7-16 7 capsules it y of e (CREON) 00:00: by mouth [place] 36,000-114, 00 with meals Me dical 000- and 3 with Branch 180,000 each unit CpDR snack. Up to 3 times a day. lipase-prot 0 Yes [id number] Take up to [facility] 7-16 7 capsules it y of e (CREON) 00:00: by mouth [place] 36,000-114, 00 with meals Me dical 000- and 3 with Branch 180,000 each unit CpDR snack. Up to 3 times a day. lipase-prot 0 Yes [id number] Take up to [facility] 7-16 7 capsules it y of e (CREON) 00:00: by mouth [place] 36,000-114, 00 with meals Me dical 000- and 3 with Branch 180,000 each unit CpDR snack. Up to 3 times a day. lipase-prot Yes [id number] Take up to [facility] 7-16 7 capsules it y of e (CREON) 00:00: by mouth [place] 36,000-114, 00 with meals Me dical 000- and 3 with Branch 180,000 each unit CpDR snack. Up to 3 times a day. lipase-prot 0 Yes [id number] Take up to [facility] 7-16 7 capsules it y of e (CREON) 00:00: by mouth [place] 36,000-114, 00 with meals Me dical 000- and 3 with Branch 180,000 each unit CpDR snack. Up to 3 times a day. lipase-prot 0 Yes [id number] Take up to [facility] 7-16 7 capsules it y of e (CREON) 00:00: by mouth [place] 36,000-114, 00 with meals Me dical 000- and 3 with Branch 180,000 each unit CpDR snack. Up to 3 times a day. lipase-prot 0 Yes [id number] Take up to [facility] 7-16 7 capsules it y of e (CREON) 00:00: by mouth [place] 36,000-114, 00 with meals Me dical 000- and 3 with Branch 180,000 each unit CpDR snack. Up to 3 times a day. lipase-prot 2020-0 Yes [id number] Take up to [facility] 7-16 7 capsules it y of e (CREON) 00:00: by mouth [place] 36,000-114, 00 with meals Me dical 000- and 3 with Branch 180,000 each unit CpDR snack. Up to 3 times a day. lipase-prot 0 Yes [id number] Take up to [facility] 7-16 7 capsules it y of e (CREON) 00:00: by mouth [place] 36,000-114, 00 with meals Me dical 000- and 3 with Branch 180,000 each unit CpDR snack. Up to 3 times a day. lipase-prot 0 Yes [id number] Take up to [facility] 7-16 7 capsules it y of e (CREON) 00:00: by mouth [place] 36,000-114, 00 with meals Me dical 000- and 3 with Branch 180,000 each unit CpDR snack. Up to 3 times a day. lipase-prot Yes [id number] Take up to [facility] 7-16 7 capsules it y of e (CREON) 00:00: by mouth [place] 36,000-114, 00 with meals Me dical 000- and 3 with Branch 180,000 each unit CpDR snack. Up to 3 times a day. lipase-prot 0 Yes [id number] Take up to [facility] 7-16 7 capsules it y of e (CREON) 00:00: by mouth [place] 36,000-114, 00 with meals Me dical 000- and 3 with Branch 180,000 each unit CpDR snack. Up to 3 times a day. lipase-prot 2020-0 Yes [id number] Take up to [facility] 7-16 7 capsules it y of e (CREON) 00:00: by mouth [place] 36,000-114, 00 with meals Me dical 000- and 3 with Branch 180,000 each unit CpDR snack. Up to 3 times a day. lipase-prot 2020-0 Yes [id number] Take up to [facility] 7-16 7 capsules it y of e (CREON) 00:00: by mouth [place] 36,000-114, 00 with meals Me dical 000- and 3 with Branch 180,000 each unit CpDR snack. Up to 3 times a day. lipase-prot 2020-0 Yes [id number] Take up to [facility] 7 capsules [facility] ([place]) 00:[place]: [place]000-114, 00 with meals Me dical 000- and 3 with Branch 180,000 each unit CpDR snack. Up to 3 times a day. lipase-prot 2020-0 Yes [id number] Take up to [facility] 7 capsules [facility] ([facility]) 00:00: [place],000-114, 00 with meals Me d[facility] 000- and 3 with Branch 180,000 each unit CpDR snack. Up to 3 times a day. lipase-prot 2020-0 Yes [id number] Take up to [facility] 7 capsules [facility] ([facility]) 00:00: [place] mouth [place],000-114, 00 with meals Me d[facility] 000- and 3 with Branch 180,000 each unit CpDR snack. Up to 3 times a day. lipase-prot 2020-0 Yes [id number] Take up to [facility] 7 capsules [facility] ([facility]) 00:00: [place] mouth [place] 36,000-114, 00 with meals Me d[facility] 000- and 3 with Branch 180,000 each unit CpDR snack. Up to 3 times a day. lipase-prot 2020-0 Yes [id number] Take up to [facility] 7 capsules [facility] ([facility]) 00:00: [place] mouth [place] 36,000-114, 00 with meals Me dical 000- and 3 with Branch 180,000 each unit CpDR snack. Up to 3 times a day. lipase-prot 2020-0 Yes [id number] Take up to [facility] 7 capsules [facility] ([facility]) 00:00: [place] mouth [place] 36,000-114, 00 with meals Me dical 000- and 3 with Branch 180,000 each unit CpDR snack. Up to 3 times a day. lipase-prot 2020-0 Yes [id number] Take up to [facility] 7 capsules [facility] ([facility]) 00:00: by mouth [place] 36,000-114, 00 with meals Me dical 000- and 3 with Branch 180,000 each unit CpDR snack. Up to 3 times a day. lipase-prot 0 Yes [id number] Take up to [facility] 7 capsules [facility] ([facility]) 00:00: by mouth [place] 36,000-114, 00 with meals Me dical 000- and 3 with Branch 180,000 each unit CpDR snack. Up to 3 times a day. lipase-prot 0 Yes [id number] Take up to [facility] 7 capsules [facility] ([facility]) 00:00: by mouth [place] 36,000-114, 00 with meals Me dical 000- and 3 with Branch 180,000 each unit CpDR snack. Up to 3 times a day. lipase-prot Yes [id number] Take up to [facility] 7 capsules [facility] ([facility]) 00:00: by mouth [place] 36,000-114, 00 with meals Me dical 000- and 3 with Branch 180,000 each unit CpDR snack. Up to 3 times a day. lipase-prot 0 Yes [id number] Take up to [facility] 7 capsules [facility] ([facility]) 00:00: by mouth [place] 36,000-114, 00 with meals Me dical 000- and 3 with Branch 180,000 each unit CpDR snack. Up to 3 times a day. lipase-prot 0 Yes [id number] Take up to [facility] 7 capsules [facility] ([facility]) 00:00: by mouth [place] 36,000-114, 00 with meals Me dical 000- and 3 with Branch 180,000 each unit CpDR snack. Up to 3 times a day. lipase-prot 0 Yes [id number] Take up to [facility] 7 capsules [facility] ([facility]) 00:00: by mouth [place] 36,000-114, 00 with meals Me dical 000- and 3 with Branch 180,000 each unit CpDR snack. Up to 3 times a day. lipase-prot 2020-0 Yes [id number] Take up to [facility] 7 capsules [facility] ([facility]) 00:00: by mouth [place] 36,000-114, 00 with meals Me dical 000- and 3 with Branch 180,000 each unit CpDR snack. Up to 3 times a day. lipase-prot 0 Yes [id number] Take up to [facility] 7 capsules [facility] ([facility]) 00:00: by mouth [place] 36,000-114, 00 with meals Me dical 000- and 3 with Branch 180,000 each unit CpDR snack. Up to 3 times a day. lipase-prot 0 Yes [id number] Take up to [facility] 7 capsules [facility] ([facility]) 00:00: by mouth [place] 36,000-114, 00 with meals Me dical 000- and 3 with Branch 180,000 each unit CpDR snack. Up to 3 times a day. lipase-prot Yes [id number] Take up to [facility] 7 capsules [facility] ([facility]) 00:00: by mouth [place] 36,000-114, 00 with meals Me dical 000- and 3 with Branch 180,000 each unit CpDR snack. Up to 3 times a day. lipase-prot 0 Yes [id number] Take up to [facility] 7 capsules [facility] ([facility]) 00:00: by mouth [place] 36,000-114, 00 with meals Me dical 000- and 3 with Branch 180,000 each unit CpDR snack. Up to 3 times a day. lipase-prot 2020-0 Yes [id number] Take up to [facility] 7 capsules [facility] ([facility]) 00:00: by mouth [place] 36,000-114, 00 with meals Me dical 000- and 3 with Branch 180,000 each unit CpDR snack. Up to 3 times a day. lipase-prot 2020-0 Yes [id number] Take up to [facility] 7 capsules [facility] y of e ([facility]) 00:00: by mouth [place] 36,000-114, 00 with meals Me dical 000- and 3 with Branch 180,000 each unit CpDR snack. Up to 3 times a day. lipase-prot 2020-0 Yes [id number] Take up to [facility] 7 capsules [facility] y [facility] ([facility]) 00:00: by mouth [place] 36,000-114, 00 with meals Me dical 000- and 3 with Branch 180,000 each unit CpDR snack. Up to 3 times a day. lipase-prot 2020-0 Yes [id number] Take up to [facility] 7 capsules [facility] ([facility]) 00:00: by mouth [place] 36,000-114, 00 with meals Me dical 000- and 3 with Branch 180,000 each unit CpDR snack. Up to 3 times a day. lipase-prot 2020-0 Yes [id number] Take up to [facility] 7 capsules [facility] ([facility]) 00:00: by mouth [place] 36,000-114, 00 with meals Me dical 000- and 3 with Branch 180,000 each unit CpDR snack. Up to 3 times a day. lipase-prot 2020-0 Yes [id number] Take up to [facility] 7 capsules [facility] ([facility]) 00:00: by mouth [place] 36,000-114, 00 with meals Me dical 000- and 3 with Branch 180,000 each unit CpDR snack. Up to 3 times a day. lipase-prot 2020-0 Yes [id number] Take up to [facility] 7 capsules [facility] ([facility]) 00:00: by mouth [place] 36,000-114, 00 with meals Me dical 000- and 3 with Branch 180,000 each unit CpDR snack. Up to 3 times a day. lipase-prot 2020-0 Yes [id number] Take up to [facility] 7 capsules [facility] y [facility] ([facility]) 00:00: by mouth [place] 36,000-114, 00 with meals Me dical 000- and 3 with Branch 180,000 each unit CpDR snack. Up to 3 times a day. lipase-prot 2020-0 Yes [id number] Take up to [facility] 7 capsules [facility] y [facility] ([facility]) 00:00: by mouth [place] 36,000-114, 00 with meals Me dical 000- and 3 with Branch 180,000 each unit CpDR snack. Up to 3 times a day. lipase-prot 0 Yes [id number] Take up to [facility] 7 capsules [facility] y [facility] ([facility]) 00:00: by mouth [place] 36,000-114, 00 with meals Me dical 000- and 3 with Branch 180,000 each unit CpDR snack. Up to 3 times a day. lipase-prot 0 Yes [id number] Take up to [facility] 7 capsules [facility] y of [facility] ([facility]) 00:00: by mouth [place] 36,000-114, 00 with meals Me dical 000- and 3 with Branch 180,000 each unit CpDR snack. Up to 3 times a day. lipase-prot Yes [id number] Take up to [facility] 7 capsules [facility] y [facility] ([facility]) 00:00: by mouth [place] 36,000-114, 00 with meals Me dical 000- and 3 with Branch 180,000 each unit CpDR snack. Up to 3 times a day. lipase-prot 0 Yes [id number] Take up to [facility] 7 capsules [facility] y [facility] ([facility]) 00:00: by mouth [place] 36,000-114, 00 with meals Me dical 000- and 3 with Branch 180,000 each unit CpDR snack. Up to 3 times a day. lipase-prot 0 Yes [id number] Take up to [facility] 7 capsules [facility] y [facility] ([facility]) 00:00: by mouth [place] 36,000-114, 00 with meals Me dical 000- and 3 with Branch 180,000 each unit CpDR snack. Up to 3 times a day. lipase-prot 0 Yes [id number] Take up to [facility] 7 capsules [facility] y of e ([facility]) 00:00: by mouth [place] 36,000-114, 00 with meals Me dical 000- and 3 with Branch 180,000 each unit CpDR snack. Up to 3 times a day. lipase-prot 2020-0 Yes [id number] Take up to [facility] 7 capsules [facility] y [facility] ([facility]) 00:00: by mouth [place] 36,000-114, 00 with meals Me dical 000- and 3 with Branch 180,000 each unit CpDR snack. Up to 3 times a day. lipase-prot 0 Yes [id number] Take up to [facility] 7 capsules [facility] y [facility] e ([facility]) 00:00: by mouth [place] 36,000-114, 00 with meals Me dical 000- and 3 with Branch 180,000 each unit CpDR snack. Up to 3 times a day. lipase-prot 0 Yes [id number] Take up to [facility] 7 capsules [facility] y of e ([facility]) 00:00: by mouth [place] 36,000-114, 00 with meals Me dical 000- and 3 with Branch 180,000 each unit CpDR snack. Up to 3 times a day. lipase-prot Yes [id number] Take up to [facility] 7 capsules [facility] y of e ([facility]) 00:00: by mouth [place] 36,000-114, 00 with meals Me dical 000- and 3 with Branch 180,000 each unit CpDR snack. Up to 3 times a day. lipase-prot 0 Yes [id number] Take up to [facility] 7 capsules it y of e ([facility]) 00:00: by mouth [place] 36,000-114, 00 with meals Me dical 000- and 3 with Branch 180,000 each unit CpDR snack. Up to 3 times a day. lipase-prot 2020-0 Yes [id number] Take up to [facility] 7 capsules [facility] y of e ([facility]) 00:00: by mouth [place] 36,000-114, 00 with meals Me dical 000- and 3 with Branch 180,000 each unit CpDR snack. Up to 3 times a day. lipase-prot 2020-0 Yes [id number] Take up to [facility] 7 capsules it y of e ([facility]) 00:00: by mouth [place] 36,000-114, 00 with meals Me dical 000- and 3 with Branch 180,000 each unit CpDR snack. Up to 3 times a day. lipase-prot 2020-0 Yes [id number] Take up to [facility] 7 capsules it y of e ([facility]) 00:00: by mouth [place] 36,000-114, 00 with meals Me dical 000- and 3 with Branch 180,000 each unit CpDR snack. Up to 3 times a day. lipase-prot 2020-0 Yes [id number] Take up to [facility] 7 capsules it y of e ([facility]) 00:00: by mouth [place] 36,000-114, 00 with meals Me dical 000- and 3 with Branch 180,000 each unit CpDR snack. Up to 3 times a day. lipase-prot 2020-0 Yes [id number] Take up to [facility] 7 capsules it y of e ([facility]) 00:00: by mouth [place] 36,000-114, 00 with meals Me dical 000- and 3 with Branch 180,000 each unit CpDR snack. Up to 3 times a day. lipase-prot 2020-0 Yes [id number] Take up to [facility] 7 capsules it y of e ([facility]) 00:00: by mouth [place] 36,000-114, 00 with meals Me dical 000- and 3 with Branch 180,000 each unit CpDR snack. Up to 3 times a day. lipase-prot 2020-0 Yes [id number] Take up to [facility] 7 capsules it y of e ([facility]) 00:00: by mouth [place] 36,000-114, 00 with meals Me dical 000- and 3 with Branch 180,000 each unit CpDR snack. Up to 3 times a day. lipase-prot 2020-0 Yes [id number] Take up to [facility] 7 capsules it y of e ([facility]) 00:00: by mouth [place] 36,000-114, 00 with meals Me dical 000- and 3 with Branch 180,000 each unit CpDR snack. Up to 3 times a day. lipase-prot 2020-0 Yes [id number] Take up to [facility] 7 capsules it y of e ([facility]) 00:00: by mouth [place] 36,000-114, 00 with meals Me dical 000- and 3 with Branch 180,000 each unit CpDR snack. Up to 3 times a day. lipase-prot 0 Yes [id number] Take up to [facility] 7 capsules it y of e ([facility]) 00:00: by mouth [place] 36,000-114, 00 with meals Me dical 000- and 3 with Branch 180,000 each unit CpDR snack. Up to 3 times a day. lipase-prot 0 Yes [id number] Take up to [facility]16 7 capsules it y of e ([facility]) 00:00: by mouth [place] 36,000-114, 00 with meals Me dical 000- and 3 with Branch 180,000 each unit CpDR snack. Up to 3 times a day. lipase-prot Yes [id number] Take up to [facility] 7 capsules it y of e ([facility]) 00:00: by mouth [place] 36,000-114, 00 with meals Me dical 000- and 3 with Branch 180,000 each unit CpDR snack. Up to 3 times a day. lipase-prot 0 Yes [id number] Take up to [facility] 7 capsules it y of e ([facility]) 00:00: by mouth [place] 36,000-114, 00 with meals Me dical 000- and 3 with Branch 180,000 each unit CpDR snack. Up to 3 times a day. lipase-prot 0 Yes [id number] Take up to [facility] 7 capsules it y of e ([facility]) 00:00: by mouth [place] 36,000-114, 00 with meals Me dical 000- and 3 with Branch 180,000 each unit CpDR snack. Up to 3 times a day. lipase-prot 0 Yes [id number] Take up to [facility] 7 capsules it y of e ([facility]) 00:00: by mouth [place] 36,000-114, 00 with meals Me dical 000- and 3 with Branch 180,000 each unit CpDR snack. Up to 3 times a day. lipase-prot 2020-0 Yes [id number] Take up to [facility] 7 capsules it y of e ([facility]) 00:00: by mouth [place] 36,000-114, 00 with meals Me dical 000- and 3 with Branch 180,000 each unit CpDR snack. Up to 3 times a day. lipase-prot 0 Yes [id number] Take up to [facility] 7 capsules it y of e ([facility]) 00:00: by mouth [place] 36,000-114, 00 with meals Me dical 000- and 3 with Branch 180,000 each unit CpDR snack. Up to 3 times a day. lipase-prot 0 Yes [id number] Take up to [facility] 7 capsules it y of e ([facility]) 00:00: by mouth [place] 36,000-114, 00 with meals Me dical 000- and 3 with Branch 180,000 each unit CpDR snack. Up to 3 times a day. lipase-prot Yes [id number] Take up to [facility] 7 capsules it y of e ([facility]) 00:00: by mouth [place] 36,000-114, 00 with meals Me dical 000- and 3 with Branch 180,000 each unit CpDR snack. Up to 3 times a day. lipase-prot 0 Yes [id number] Take up to [facility] 7 capsules it y of e ([facility]) 00:00: by mouth [place] 36,000-114, 00 with meals Me dical 000- and 3 with Branch 180,000 each unit CpDR snack. Up to 3 times a day. lipase-prot 2020-0 Yes [id number] Take up to [facility] 7 capsules it y of e ([facility]) 00:00: by mouth [place] 36,000-114, 00 with meals Me dical 000- and 3 with Branch 180,000 each unit CpDR snack. Up to 3 times a day. lipase-prot 2020-0 Yes [id number] Take up to [facility] 7 capsules it y of e ([facility]) 00:00: by mouth [place] 36,000-114, 00 with meals Me dical 000- and 3 with Branch 180,000 each unit CpDR snack. Up to 3 times a day. lipase-prot 2020-0 Yes [id number] Take up to [facility] 7 capsules it y of e ([facility]) 00:00: by mouth [place] 36,000-114, 00 with meals Me dical 000- and 3 with Branch 180,000 each unit CpDR snack. Up to 3 times a day. lipase-prot 2020-0 Yes [id number] Take up to [facility] 7 capsules it y of e ([facility]) 00:00: by mouth [place] 36,000-114, 00 with meals Me dical 000- and 3 with Branch 180,000 each unit CpDR snack. Up to 3 times a day. lipase-prot 2020-0 Yes [id number] Take up to [facility] 7 capsules it y of e ([facility]) 00:00: by mouth [place] 36,000-114, 00 with meals Me dical 000- and 3 with Branch 180,000 each unit CpDR snack. Up to 3 times a day. lipase-prot 2020-0 Yes [id number] Take up to [facility] 7 capsules it y of e ([facility]) 00:00: by mouth [place] 36,000-114, 00 with meals Me dical 000- and 3 with Branch 180,000 each unit CpDR snack. Up to 3 times a day. lipase-prot 2020-0 Yes [id number] Take up to [facility] 7 capsules it y of e ([facility]) 00:00: by mouth [place] 36,000-114, 00 with meals Me dical 000- and 3 with Branch 180,000 each unit CpDR snack. Up to 3 times a day. lipase-prot 2020-0 Yes [id number] Take up to [facility] 7 capsules it y of e ([facility]) 00:00: by mouth [place] 36,000-114, 00 with meals Me dical 000- and 3 with Branch 180,000 each unit CpDR snack. Up to 3 times a day. lipase-prot 2020-0 Yes [id number] Take up to [facility] 7 capsules it y of e ([facility]) 00:00: by mouth [place] 36,000-114, 00 with meals Me dical 000- and 3 with Branch 180,000 each unit CpDR snack. Up to 3 times a day. lipase-prot 0 Yes [id number] Take up to [facility] 7 capsules it y of e ([facility]) 00:00: by mouth [place] 36,000-114, 00 with meals Me dical 000- and 3 with Branch 180,000 each unit CpDR snack. Up to 3 times a day. lipase-prot 0 Yes [id number] Take up to [facility] 7 capsules it y of e ([facility]) 00:00: by mouth [place] 36,000-114, 00 with meals Me dical 000- and 3 with Branch 180,000 each unit CpDR snack. Up to 3 times a day. lipase-prot Yes [id number] Take up to [facility] 7 capsules it y of e ([facility]) 00:00: by mouth [place] 36,000-114, 00 with meals Me dical 000- and 3 with Branch 180,000 each unit CpDR snack. Up to 3 times a day. lipase-prot 0 Yes [id number] Take up to [facility]16 7 capsules it y of e ([facility]) 00:00: by mouth [place] 36,000-114, 00 with meals Me dical 000- and 3 with Branch 180,000 each unit CpDR snack. Up to 3 times a day. lipase-prot 0 Yes [id number] Take up to [facility]16 7 capsules it y of e ([facility]) 00:00: by mouth [place] 36,000-114, 00 with meals Me dical 000- and 3 with Branch 180,000 each unit CpDR snack. Up to 3 times a day. lipase-prot 0 Yes [id number] Take up to [facility] 7 capsules it y of e ([facility]) 00:00: by mouth [place] 36,000-114, 00 with meals Me dical 000- and 3 with Branch 180,000 each unit CpDR snack. Up to 3 times a day. lipase-prot 2020-0 Yes [id number] Take up to [facility]16 7 capsules it y of e ([facility]) 00:00: by mouth [place] 36,000-114, 00 with meals Me dical 000- and 3 with Branch 180,000 each unit CpDR snack. Up to 3 times a day. lipase-prot 0 Yes [id number] Take up to [facility]16 7 capsules it y of e ([facility]) 00:00: by mouth [place] 36,000-114, 00 with meals Me dical 000- and 3 with Branch 180,000 each unit CpDR snack. Up to 3 times a day. lipase-prot 0 Yes [id number] Take up to [facility]16 7 capsules it y of e ([facility]) 00:00: by mouth [place] 36,000-114, 00 with meals Me dical 000- and 3 with Branch 180,000 each unit CpDR snack. Up to 3 times a day. lipase-prot Yes [id number] Take up to [facility]16 7 capsules it y of e ([facility]) 00:00: by mouth [place] 36,000-114, 00 with meals Me dical 000- and 3 with Branch 180,000 each unit CpDR snack. Up to 3 times a day. lipase-prot 0 Yes [id number] Take up to [facility]16 7 capsules it y of e ([facility]) 00:00: by mouth [place] 36,000-114, 00 with meals Me dical 000- and 3 with Branch 180,000 each unit CpDR snack. Up to 3 times a day. lipase-prot 2020-0 Yes [id number] Take up to [facility] 7 capsules it y of e ([facility]) 00:00: by mouth [place] 36,000-114, 00 with meals Me dical 000- and 3 with Branch 180,000 each unit CpDR snack. Up to 3 times a day. lipase-prot 2020-0 Yes [id number] Take up to [facility] 7 capsules it y of e ([facility]) 00:00: by mouth [place] 36,000-114, 00 with meals Me dical 000- and 3 with Branch 180,000 each unit CpDR snack. Up to 3 times a day. lipase-prot 2020-0 Yes [id number] Take up to [facility] 7 capsules it y of e ([facility]) 00:00: by mouth [place] 36,000-114, 00 with meals Me dical 000- and 3 with Branch 180,000 each unit CpDR snack. Up to 3 times a day. lipase-prot 2020-0 Yes [id number] Take up to [facility] 7 capsules it y of e ([facility]) 00:00: by mouth [place] 36,000-114, 00 with meals Me dical 000- and 3 with Branch 180,000 each unit CpDR snack. Up to 3 times a day. lipase-prot 2020-0 Yes [id number] Take up to [facility] 7 capsules it y of e ([facility]) 00:00: by mouth [place] 36,000-114, 00 with meals Me dical 000- and 3 with Branch 180,000 each unit CpDR snack. Up to 3 times a day. lipase-prot 2020-0 Yes [id number] Take up to [facility] 7 capsules it y of e ([facility]) 00:00: by mouth [place] 36,000-114, 00 with meals Me dical 000- and 3 with Branch 180,000 each unit CpDR snack. Up to 3 times a day. lipase-prot 2020-0 Yes [id number] Take up to [facility] 7 capsules it y of e ([facility]) 00:00: by mouth [place] 36,000-114, 00 with meals Me dical 000- and 3 with Branch 180,000 each unit CpDR snack. Up to 3 times a day. lipase-prot 2020-0 Yes [id number] Take up to [facility] 7 capsules it y of e ([facility]) 00:00: by mouth [place] 36,000-114, 00 with meals Me dical 000- and 3 with Branch 180,000 each unit CpDR snack. Up to 3 times a day. lipase-prot 2020-0 Yes [id number] Take up to [facility] 7 capsules it y of e ([facility]) 00:00: by mouth [place] 36,000-114, 00 with meals Me dical 000- and 3 with Branch 180,000 each unit CpDR snack. Up to 3 times a day. lipase-prot 0 Yes [id number] Take up to [facility]16 7 capsules it y of e ([facility]) 00:00: by mouth [place] 36,000-114, 00 with meals Me dical 000- and 3 with Branch 180,000 each unit CpDR snack. Up to 3 times a day. lipase-prot 0 Yes [id number] Take up to [facility]16 7 capsules it y of e ([facility]) 00:00: by mouth [place] 36,000-114, 00 with meals Me dical 000- and 3 with Branch 180,000 each unit CpDR snack. Up to 3 times a day. lipase-prot Yes [id number] Take up to [facility]16 7 capsules it y of e ([facility]) 00:00: by mouth [place] 36,000-114, 00 with meals Me dical 000- and 3 with Branch 180,000 each unit CpDR snack. Up to 3 times a day. lipase-prot 0 Yes [id number] Take up to [facility]16 7 capsules it y of e ([facility]) 00:00: by mouth [place] 36,000-114, 00 with meals Me dical 000- and 3 with Branch 180,000 each unit CpDR snack. Up to 3 times a day. lipase-prot 0 Yes [id number] Take up to [facility]16 7 capsules it y of e ([facility]) 00:00: by mouth [place] 36,000-114, 00 with meals Me dical 000- and 3 with Branch 180,000 each unit CpDR snack. Up to 3 times a day. lipase-prot 0 Yes [id number] Take up to [facility]16 7 capsules it y of e ([facility]) 00:00: by mouth [place] 36,000-114, 00 with meals Me dical 000- and 3 with Branch 180,000 each unit CpDR snack. Up to 3 times a day. lipase-prot 2020-0 Yes [id number] Take up to [facility]16 7 capsules it y of e ([facility]) 00:00: by mouth [place] 36,000-114, 00 with meals Me dical 000- and 3 with Branch 180,000 each unit CpDR snack. Up to 3 times a day. lipase-prot 0 Yes [id number] Take up to [facility]16 7 capsules it y of e ([facility]) 00:00: by mouth [place] 36,000-114, 00 with meals Me dical 000- and 3 with Branch 180,000 each unit CpDR snack. Up to 3 times a day. lipase-prot 0 Yes [id number] Take up to [facility]16 7 capsules it y of e ([facility]) 00:00: by mouth [place] 36,000-114, 00 with meals Me dical 000- and 3 with Branch 180,000 each unit CpDR snack. Up to 3 times a day. lipase-prot Yes [id number] Take up to [facility]16 7 capsules it y of e ([facility]) 00:00: by mouth [place] 36,000-114, 00 with meals Me dical 000- and 3 with Branch 180,000 each unit CpDR snack. Up to 3 times a day. lipase-prot 0 Yes [id number] Take up to [facility]16 7 capsules it y of e ([facility]) 00:00: by mouth [place] 36,000-114, 00 with meals Me dical 000- and 3 with Branch 180,000 each unit CpDR snack. Up to 3 times a day. lipase-prot 2020-0 Yes [id number] Take up to [facility]16 7 capsules it y of e ([facility]) 00:00: by mouth [place] 36,000-114, 00 with meals Me dical 000- and 3 with Branch 180,000 each unit CpDR snack. Up to 3 times a day. lipase-prot 2020-0 Yes [id number] Take up to [facility]16 7 capsules it y of e ([facility]) 00:00: by mouth [place] 36,000-114, 00 with meals Me dical 000- and 3 with Branch 180,000 each unit CpDR snack. Up to 3 times a day. lipase-prot 2020-0 Yes [id number] Take up to [facility] 7 capsules it y of e ([facility]) 00:00: [place] mouth [place] 36,000-114, 00 with meals Me dical 000- and 3 with Branch 180,000 each unit CpDR snack. Up to 3 times a day. lipase-prot 2020-0 Yes [id number] Take up to [facility] 7 capsules it y of e ([facility]) 00:00: by mouth [place] 36,000-114, 00 with meals Me dical 000- and 3 with Branch 180,000 each unit CpDR snack. Up to 3 times a day. lipase-prot 2020-0 Yes [id number] Take up to [facility]16 7 capsules it y of e ([facility]) 00:00: by mouth [place] 36,000-114, 00 with meals Me dical 000- and 3 with Branch 180,000 each unit CpDR snack. Up to 3 times a day. lipase-prot 2020-0 Yes [id number] Take up to [facility]16 7 capsules it y of e ([facility]) 00:00: by mouth [place] 36,000-114, 00 with meals Me dical 000- and 3 with Branch 180,000 each unit CpDR snack. Up to 3 times a day. lipase-prot 2020-0 Yes [id number] Take up to [facility] 7 capsules it y of e ([facility]) 00:00: by mouth [place] 36,000-114, 00 with meals Me dical 000- and 3 with Branch 180,000 each unit CpDR snack. Up to 3 times a day. lipase-prot 2020-0 Yes [id number] Take up to [facility] 7 capsules it y of e ([facility]) 00:00: by mouth [place],000-114, 00 with meals Me dical 000- and 3 with Branch 180,000 each unit CpDR snack. Up to 3 times a day. lipase-prot 2020-0 Yes [id number] Take up to [facility] 7 capsules [facility] ([facility]) 00:[place]: [place],000-114, 00 with meals Me dical 000- and 3 with Branch 180,000 each unit CpDR snack. Up to 3 times a day. lipase-prot 0 Yes [id number] Take up to [facility] 7 capsules [facility] ([facility]) 00:00: [place],000-114, 00 with meals Me d[facility] 000- and 3 with Branch 180,000 each unit CpDR snack. Up to 3 times a day. lipase-prot 0 Yes [id number] Take up to [facility] 7 capsules [facility] ([facility]) 00:00: [place] mouth [place] 36,000-114, 00 with meals Me d[facility] 000- and 3 with Branch 180,000 each unit CpDR snack. Up to 3 times a day. lipase-prot Yes [id number] Take up to [facility] 7 capsules [facility] ([facility]) 00:00: [place] mouth [place] 36,000-114, 00 with meals Me d[facility] 000- and 3 with Branch 180,000 each unit CpDR snack. Up to 3 times a day. lipase-prot 0 Yes [id number] Take up to [facility] 7 capsules [facility] ([facility]) 00:00: [place] mouth [place] 36,000-114, 00 with meals Me dical 000- and 3 with Branch 180,000 each unit CpDR snack. Up to 3 times a day. lipase-prot 0 Yes [id number] Take up to [facility] 7 capsules [facility] ([facility]) 00:00: by mouth [place] 36,000-114, 00 with meals Me dical 000- and 3 with Branch 180,000 each unit CpDR snack. Up to 3 times a day. lipase-prot 0 Yes [id number] Take up to [facility] 7 capsules [facility] ([facility]) 00:00: by mouth [place] 36,000-114, 00 with meals Me dical 000- and 3 with Branch 180,000 each unit CpDR snack. Up to 3 times a day. lipase-prot 2020-0 Yes [id number] Take up to [facility] 7 capsules [facility] ([facility]) 00:00: by mouth [place] 36,000-114, 00 with meals Me dical 000- and 3 with Branch 180,000 each unit CpDR snack. Up to 3 times a day. lipase-prot 0 Yes [id number] Take up to [facility] 7 capsules [facility] ([facility]) 00:00: by mouth [place] 36,000-114, 00 with meals Me dical 000- and 3 with Branch 180,000 each unit CpDR snack. Up to 3 times a day. lipase-prot 0 Yes [id number] Take up to [facility] 7 capsules [facility] ([facility]) 00:00: by mouth [place] 36,000-114, 00 with meals Me dical 000- and 3 with Branch 180,000 each unit CpDR snack. Up to 3 times a day. lipase-prot Yes [id number] Take up to [facility] 7 capsules [facility] ([facility]) 00:00: by mouth [place] 36,000-114, 00 with meals Me dical 000- and 3 with Branch 180,000 each unit CpDR snack. Up to 3 times a day. lipase-prot 0 Yes [id number] Take up to [facility] 7 capsules [facility] ([facility]) 00:00: by mouth [place] 36,000-114, 00 with meals Me dical 000- and 3 with Branch 180,000 each unit CpDR snack. Up to 3 times a day. lipase-prot 2020-0 Yes [id number] Take up to [facility] 7 capsules [facility] ([facility]) 00:00: by mouth [place] 36,000-114, 00 with meals Me dical 000- and 3 with Branch 180,000 each unit CpDR snack. Up to 3 times a day. lipase-prot 2020-0 Yes [id number] Take up to [facility] 7 capsules [facility] ([facility]) 00:00: by mouth [place] 36,000-114, 00 with meals Me dical 000- and 3 with Branch 180,000 each unit CpDR snack. Up to 3 times a day. lipase-prot 2020-0 Yes [id number] Take up to [facility] 7 capsules [facility] ([facility]) 00:00: by mouth [place] 36,000-114, 00 with meals Me dical 000- and 3 with Branch 180,000 each unit CpDR snack. Up to 3 times a day. lipase-prot 2020-0 Yes [id number] Take up to [facility] 7 capsules [facility] ([facility]) 00:00: by mouth [place] 36,000-114, 00 with meals Me dical 000- and 3 with Branch 180,000 each unit CpDR snack. Up to 3 times a day. lipase-prot 2020-0 Yes [id number] Take up to [facility] 7 capsules [facility] ([facility]) 00:00: by mouth [place] 36,000-114, 00 with meals Me dical 000- and 3 with Branch 180,000 each unit CpDR snack. Up to 3 times a day. lipase-prot 2020-0 Yes [id number] Take up to [facility] 7 capsules [facility] ([facility]) 00:00: by mouth [place] 36,000-114, 00 with meals Me dical 000- and 3 with Branch 180,000 each unit CpDR snack. Up to 3 times a day. lipase-prot 2020-0 Yes [id number] Take up to [facility] 7 capsules [facility] y [facility] ([facility]) 00:00: by mouth [place] 36,000-114, 00 with meals Me dical 000- and 3 with Branch 180,000 each unit CpDR snack. Up to 3 times a day. lipase-prot 2020-0 Yes [id number] Take up to [facility] 7 capsules [facility] y [facility] e ([facility]) 00:00: by mouth [place] 36,000-114, 00 with meals Me dical 000- and 3 with Branch 180,000 each unit CpDR snack. Up to 3 times a day. lipase-prot 2020-0 Yes [id number] Take up to [facility] 7 capsules [facility] y [facility] e ([facility]) 00:00: by mouth [place] 36,000-114, 00 with meals Me dical 000- and 3 with Branch 180,000 each unit CpDR snack. Up to 3 times a day. lipase-prot 0 Yes [id number] Take up to [facility] 7 capsules [facility] ([facility]) 00:00: by mouth [place] 36,000-114, 00 with meals Me dical 000- and 3 with Branch 180,000 each unit CpDR snack. Up to 3 times a day. lipase-prot 0 Yes [id number] Take up to [facility] 7 capsules [facility] ([facility]) 00:00: by mouth [place] 36,000-114, 00 with meals Me dical 000- and 3 with Branch 180,000 each unit CpDR snack. Up to 3 times a day. lipase-prot Yes [id number] Take up to [facility] 7 capsules [facility] ([facility]) 00:00: by mouth [place] 36,000-114, 00 with meals Me dical 000- and 3 with Branch 180,000 each unit CpDR snack. Up to 3 times a day. lipase-prot 0 Yes [id number] Take up to [facility] 7 capsules [facility] y [facility] ([facility]) 00:00: by mouth [place] 36,000-114, 00 with meals Me dical 000- and 3 with Branch 180,000 each unit CpDR snack. Up to 3 times a day. lipase-prot 0 Yes [id number] Take up to [facility] 7 capsules [facility] y [facility] e ([facility]) 00:00: by mouth [place] 36,000-114, 00 with meals Me dical 000- and 3 with Branch 180,000 each unit CpDR snack. Up to 3 times a day. lipase-prot 0 Yes [id number] Take up to [facility] 7 capsules [facility] e ([facility]) 00:00: by mouth [place] 36,000-114, 00 with meals Me dical 000- and 3 with Branch 180,000 each unit CpDR snack. Up to 3 times a day. lipase-prot 2020-0 Yes [id number] Take up to [facility] 7 capsules [facility] ([facility]) 00:00: by mouth [place] 36,000-114, 00 with meals Me dical 000- and 3 with Branch 180,000 each unit CpDR snack. Up to 3 times a day. lipase-prot 0 Yes [id number] Take up to [facility] 7 capsules [facility] ([facility]) 00:00: by mouth [place] 36,000-114, 00 with meals Me dical 000- and 3 with Branch 180,000 each unit CpDR snack. Up to 3 times a day. lipase-prot 0 Yes [id number] Take up to [facility] 7 capsules [facility] y [facility] ([facility]) 00:00: by mouth [place] 36,000-114, 00 with meals Me dical 000- and 3 with Branch 180,000 each unit CpDR snack. Up to 3 times a day. lipase-prot Yes [id number] Take up to [facility] 7 capsules [facility] y of e ([facility]) 00:00: by mouth [place] 36,000-114, 00 with meals Me dical 000- and 3 with Branch 180,000 each unit CpDR snack. Up to 3 times a day. lipase-prot 0 Yes [id number] Take up to [facility] 7 capsules [facility] y of e ([facility]) 00:00: by mouth [place] 36,000-114, 00 with meals Me dical 000- and 3 with Branch 180,000 each unit CpDR snack. Up to 3 times a day. lipase-prot 2020-0 Yes [id number] Take up to [facility] 7 capsules [facility] y [facility] ([facility]) 00:00: by mouth [place] 36,000-114, 00 with meals Me dical 000- and 3 with Branch 180,000 each unit CpDR snack. Up to 3 times a day. lipase-prot 2020-0 Yes [id number] Take up to [facility] 7 capsules [facility] y [facility] e ([facility]) 00:00: by mouth [place] 36,000-114, 00 with meals Me dical 000- and 3 with Branch 180,000 each unit CpDR snack. Up to 3 times a day. lipase-prot 2020-0 Yes [id number] Take up to [facility] 7 capsules [facility] y [facility] e ([facility]) 00:00: by mouth [place] 36,000-114, 00 with meals Me dical 000- and 3 with Branch 180,000 each unit CpDR snack. Up to 3 times a day. lipase-prot 2020-0 Yes [id number] Take up to [facility] 7 capsules [facility] y of e ([facility]) 00:00: by mouth [place] 36,000-114, 00 with meals Me dical 000- and 3 with Branch 180,000 each unit CpDR snack. Up to 3 times a day. lipase-prot 2020-0 Yes [id number] Take up to [facility] 7 capsules [facility] y of e ([facility]) 00:00: by mouth [place] 36,000-114, 00 with meals Me dical 000- and 3 with Branch 180,000 each unit CpDR snack. Up to 3 times a day. lipase-prot 2020-0 Yes [id number] Take up to [facility] 7 capsules it y of e ([facility]) 00:00: by mouth [place] 36,000-114, 00 with meals Me dical 000- and 3 with Branch 180,000 each unit CpDR snack. Up to 3 times a day. lipase-prot 2020-0 Yes [id number] Take up to [facility] 7 capsules it y of e ([facility]) 00:00: by mouth [place] 36,000-114, 00 with meals Me dical 000- and 3 with Branch 180,000 each unit CpDR snack. Up to 3 times a day. lipase-prot 2020-0 Yes [id number] Take up to [facility] 7 capsules it y of e ([facility]) 00:00: by mouth [place] 36,000-114, 00 with meals Me dical 000- and 3 with Branch 180,000 each unit CpDR snack. Up to 3 times a day. lipase-prot 2020-0 Yes [id number] Take up to [facility] 7 capsules it y of e ([facility]) 00:00: by mouth [place] 36,000-114, 00 with meals Me dical 000- and 3 with Branch 180,000 each unit CpDR snack. Up to 3 times a day. lipase-prot 0 Yes [id number] Take up to [facility]16 7 capsules it y of e ([facility]) 00:00: by mouth [place] 36,000-114, 00 with meals Me dical 000- and 3 with Branch 180,000 each unit CpDR snack. Up to 3 times a day. lipase-prot 0 Yes [id number] Take up to [facility] 7 capsules it y of e ([facility]) 00:00: by mouth [place] 36,000-114, 00 with meals Me dical 000- and 3 with Branch 180,000 each unit CpDR snack. Up to 3 times a day. lipase-prot Yes [id number] Take up to [facility] 7 capsules it y of e ([facility]) 00:00: by mouth [place] 36,000-114, 00 with meals Me dical 000- and 3 with Branch 180,000 each unit CpDR snack. Up to 3 times a day. lipase-prot 0 Yes [id number] Take up to [facility] 7 capsules it y of e ([facility]) 00:00: by mouth [place] 36,000-114, 00 with meals Me dical 000- and 3 with Branch 180,000 each unit CpDR snack. Up to 3 times a day. lipase-prot 0 Yes [id number] Take up to [facility]16 7 capsules it y of e ([facility]) 00:00: by mouth [place] 36,000-114, 00 with meals Me dical 000- and 3 with Branch 180,000 each unit CpDR snack. Up to 3 times a day. lipase-prot 0 Yes [id number] Take up to [facility]16 7 capsules it y of e ([facility]) 00:00: by mouth [place] 36,000-114, 00 with meals Me dical 000- and 3 with Branch 180,000 each unit CpDR snack. Up to 3 times a day. lipase-prot 2020-0 Yes [id number] Take up to [facility] 7 capsules it y of e ([facility]) 00:00: by mouth [place] 36,000-114, 00 with meals Me dical 000- and 3 with Branch 180,000 each unit CpDR snack. Up to 3 times a day. lipase-prot 0 Yes [id number] Take up to [facility]16 7 capsules it y of e ([facility]) 00:00: by mouth [place] 36,000-114, 00 with meals Me dical 000- and 3 with Branch 180,000 each unit CpDR snack. Up to 3 times a day. lipase-prot 0 Yes [id number] Take up to [facility]16 7 capsules it y of e ([facility]) 00:00: by mouth [place] 36,000-114, 00 with meals Me dical 000- and 3 with Branch 180,000 each unit CpDR snack. Up to 3 times a day. lipase-prot Yes [id number] Take up to [facility] 7 capsules it y of e ([facility]) 00:00: by mouth [place] 36,000-114, 00 with meals Me dical 000- and 3 with Branch 180,000 each unit CpDR snack. Up to 3 times a day. lipase-prot 0 Yes [id number] Take up to [facility] 7 capsules it y of e ([facility]) 00:00: by mouth [place] 36,000-114, 00 with meals Me dical 000- and 3 with Branch 180,000 each unit CpDR snack. Up to 3 times a day. lipase-prot 2020-0 Yes [id number] Take up to [facility]16 7 capsules it y of e ([facility]) 00:00: by mouth [place] 36,000-114, 00 with meals Me dical 000- and 3 with Branch 180,000 each unit CpDR snack. Up to 3 times a day. lipase-prot 2020-0 Yes [id number] Take up to [facility] 7 capsules it y of e ([facility]) 00:00: by mouth [place] 36,000-114, 00 with meals Me dical 000- and 3 with Branch 180,000 each unit CpDR snack. Up to 3 times a day. lipase-prot 2020-0 Yes [id number] Take up to [facility] 7 capsules it y of e ([facility]) 00:00: by mouth [place] 36,000-114, 00 with meals Me dical 000- and 3 with Branch 180,000 each unit CpDR snack. Up to 3 times a day. lipase-prot 2020-0 Yes [id number] Take up to [facility] 7 capsules it y of e ([facility]) 00:00: by mouth [place] 36,000-114, 00 with meals Me dical 000- and 3 with Branch 180,000 each unit CpDR snack. Up to 3 times a day. lipase-prot 2020-0 Yes [id number] Take up to [facility] 7 capsules it y of e ([facility]) 00:00: by mouth [place] 36,000-114, 00 with meals Me dical 000- and 3 with Branch 180,000 each unit CpDR snack. Up to 3 times a day. lipase-prot 2020-0 Yes [id number] Take up to [facility] 7 capsules it y of e ([facility]) 00:00: by mouth [place] 36,000-114, 00 with meals Me dical 000- and 3 with Branch 180,000 each unit CpDR snack. Up to 3 times a day. lipase-prot 2020-0 Yes [id number] Take up to [facility] 7 capsules it y of e ([facility]) 00:00: by mouth [place] 36,000-114, 00 with meals Me dical 000- and 3 with Branch 180,000 each unit CpDR snack. Up to 3 times a day. lipase-prot 2020-0 Yes [id number] Take up to [facility] 7 capsules it y of e ([facility]) 00:00: by mouth [place] 36,000-114, 00 with meals Me dical 000- and 3 with Branch 180,000 each unit CpDR snack. Up to 3 times a day. lipase-prot 2020-0 Yes [id number] Take up to [facility] 7 capsules it y of e ([facility]) 00:00: by mouth [place] 36,000-114, 00 with meals Me dical 000- and 3 with Branch 180,000 each unit CpDR snack. Up to 3 times a day. lipase-prot 0 Yes [id number] Take up to [facility]16 7 capsules it y of e ([facility]) 00:00: by mouth [place] 36,000-114, 00 with meals Me dical 000- and 3 with Branch 180,000 each unit CpDR snack. Up to 3 times a day. lipase-prot 0 Yes [id number] Take up to [facility] 7 capsules it y of e ([facility]) 00:00: by mouth [place] 36,000-114, 00 with meals Me dical 000- and 3 with Branch 180,000 each unit CpDR snack. Up to 3 times a day. lipase-prot Yes [id number] Take up to [facility] 7 capsules it y of e ([facility]) 00:00: by mouth [place] 36,000-114, 00 with meals Me dical 000- and 3 with Branch 180,000 each unit CpDR snack. Up to 3 times a day. lipase-prot 0 Yes [id number] Take up to [facility] 7 capsules it y of e ([facility]) 00:00: by mouth [place] 36,000-114, 00 with meals Me dical 000- and 3 with Branch 180,000 each unit CpDR snack. Up to 3 times a day. lipase-prot 0 Yes [id number] Take up to [facility] 7 capsules it y of e ([facility]) 00:00: by mouth [place] 36,000-114, 00 with meals Me dical 000- and 3 with Branch 180,000 each unit CpDR snack. Up to 3 times a day. lipase-prot 0 Yes [id number] Take up to [facility] 7 capsules it y of e ([facility]) 00:00: by mouth [place] 36,000-114, 00 with meals Me dical 000- and 3 with Branch 180,000 each unit CpDR snack. Up to 3 times a day. lipase-prot 2020-0 Yes [id number] Take up to [facility] 7 capsules it y of e ([facility]) 00:00: by mouth [place] 36,000-114, 00 with meals Me dical 000- and 3 with Branch 180,000 each unit CpDR snack. Up to 3 times a day. lipase-prot 0 Yes [id number] Take up to [facility]16 7 capsules it y of e ([facility]) 00:00: by mouth [place] 36,000-114, 00 with meals Me dical 000- and 3 with Branch 180,000 each unit CpDR snack. Up to 3 times a day. lipase-prot 0 Yes [id number] Take up to [facility]16 7 capsules it y of e ([facility]) 00:00: by mouth [place] 36,000-114, 00 with meals Me dical 000- and 3 with Branch 180,000 each unit CpDR snack. Up to 3 times a day. lipase-prot Yes [id number] Take up to [facility]16 7 capsules it y of e ([facility]) 00:00: by mouth [place] 36,000-114, 00 with meals Me dical 000- and 3 with Branch 180,000 each unit CpDR snack. Up to 3 times a day. lipase-prot 0 Yes [id number] Take up to [facility]16 7 capsules it y of e ([facility]) 00:00: by mouth [place] 36,000-114, 00 with meals Me dical 000- and 3 with Branch 180,000 each unit CpDR snack. Up to 3 times a day. lipase-prot 2020-0 Yes [id number] Take up to [facility] 7 capsules it y of e ([facility]) 00:00: by mouth [place] 36,000-114, 00 with meals Me dical 000- and 3 with Branch 180,000 each unit CpDR snack. Up to 3 times a day. lipase-prot 2020-0 Yes [id number] Take up to [facility]16 7 capsules it y of e ([facility]) 00:00: by mouth [place] 36,000-114, 00 with meals Me dical 000- and 3 with Branch 180,000 each unit CpDR snack. Up to 3 times a day. lipase-prot 2020-0 Yes [id number] Take up to [facility]16 7 capsules it y of e ([facility]) 00:00: by mouth [place] 36,000-114, 00 with meals Me dical 000- and 3 with Branch 180,000 each unit CpDR snack. Up to 3 times a day. lipase-prot 2020-0 Yes [id number] Take up to [facility]16 7 capsules it y of e ([facility]) 00:00: by mouth [place] 36,000-114, 00 with meals Me dical 000- and 3 with Branch 180,000 each unit CpDR snack. Up to 3 times a day. lipase-prot 2020-0 Yes [id number] Take up to [facility]16 7 capsules it y of e ([facility]) 00:00: by mouth [place] 36,000-114, 00 with meals Me dical 000- and 3 with Branch 180,000 each unit CpDR snack. Up to 3 times a day. lipase-prot 2020-0 Yes [id number] Take up to [facility]16 7 capsules it y of e ([facility]) 00:00: by mouth [place] 36,000-114, 00 with meals Me dical 000- and 3 with Branch 180,000 each unit CpDR snack. Up to 3 times a day. lipase-prot 2020-0 Yes [id number] Take up to [facility] 7 capsules it y of e ([facility]) 00:00: by mouth [place] 36,000-114, 00 with meals Me dical 000- and 3 with Branch 180,000 each unit CpDR snack. Up to 3 times a day. lipase-prot 2020-0 Yes [id number] Take up to [facility] 7 capsules it y of e ([facility]) 00:00: by mouth [place] 36,000-114, 00 with meals Me dical 000- and 3 with Branch 180,000 each unit CpDR snack. Up to 3 times a day. lipase-prot 2020-0 Yes [id number] Take up to [facility]16 7 capsules it y of e ([facility]) 00:00: by mouth [place] 36,000-114, 00 with meals Me dical 000- and 3 with Branch 180,000 each unit CpDR snack. Up to 3 times a day. lipase-prot 0 Yes [id number] Take up to [facility]16 7 capsules it y of e ([facility]) 00:00: by mouth [place] 36,000-114, 00 with meals Me dical 000- and 3 with Branch 180,000 each unit CpDR snack. Up to 3 times a day. lipase-prot 0 Yes [id number] Take up to [facility]16 7 capsules it y of e ([facility]) 00:00: by mouth [place] 36,000-114, 00 with meals Me dical 000- and 3 with Branch 180,000 each unit CpDR snack. Up to 3 times a day. lipase-prot Yes [id number] Take up to [facility]16 7 capsules it y of e ([facility]) 00:00: by mouth [place] 36,000-114, 00 with meals Me dical 000- and 3 with Branch 180,000 each unit CpDR snack. Up to 3 times a day. lipase-prot 0 Yes [id number] Take up to [facility]16 7 capsules it y of e ([facility]) 00:00: by mouth [place] 36,000-114, 00 with meals Me dical 000- and 3 with Branch 180,000 each unit CpDR snack. Up to 3 times a day. lipase-prot 0 Yes [id number] Take up to [facility]16 7 capsules it y of e ([facility]) 00:00: by mouth [place] 36,000-114, 00 with meals Me dical 000- and 3 with Branch 180,000 each unit CpDR snack. Up to 3 times a day. lipase-prot 0 Yes [id number] Take up to [facility]16 7 capsules it y of e ([facility]) 00:00: by mouth [place] 36,000-114, 00 with meals Me dical 000- and 3 with Branch 180,000 each unit CpDR snack. Up to 3 times a day. lipase-prot 2020-0 Yes [id number] Take up to [facility]16 7 capsules it y of e ([facility]) 00:00: by mouth [place] 36,000-114, 00 with meals Me dical 000- and 3 with Branch 180,000 each unit CpDR snack. Up to 3 times a day. lipase-prot 0 Yes [id number] Take up to [facility]16 7 capsules it y of e ([facility]) 00:00: by mouth [place] 36,000-114, 00 with meals Me dical 000- and 3 with Branch 180,000 each unit CpDR snack. Up to 3 times a day. lipase-prot 0 Yes [id number] Take up to [facility]16 7 capsules it y of e ([facility]) 00:00: by mouth [place] 36,000-114, 00 with meals Me dical 000- and 3 with Branch 180,000 each unit CpDR snack. Up to 3 times a day. lipase-prot Yes [id number] Take up to [facility]16 7 capsules it y of e ([facility]) 00:00: by mouth [place] 36,000-114, 00 with meals Me dical 000- and 3 with Branch 180,000 each unit CpDR snack. Up to 3 times a day. lipase-prot 0 Yes [id number] Take up to [facility]16 7 capsules it y of e ([facility]) 00:00: by mouth [place] 36,000-114, 00 with meals Me dical 000- and 3 with Branch 180,000 each unit CpDR snack. Up to 3 times a day. lipase-prot 2020-0 Yes [id number] Take up to [facility]16 7 capsules it y of e ([facility]) 00:00: by mouth [place] 36,000-114, 00 with meals Me dical 000- and 3 with Branch 180,000 each unit CpDR snack. Up to 3 times a day. lipase-prot 2020-0 Yes [id number] Take up to [facility]16 7 capsules it y of e ([facility]) 00:00: by mouth [place] 36,000-114, 00 with meals Me dical 000- and 3 with Branch 180,000 each unit CpDR snack. Up to 3 times a day. lipase-prot 2020-0 Yes [id number] Take up to [facility]16 7 capsules it y of e ([facility]) 00:00: by mouth [place] 36,000-114, 00 with meals Me dical 000- and 3 with Branch 180,000 each unit CpDR snack. Up to 3 times a day. lipase-prot 2020-0 Yes [id number] Take up to [facility]16 7 capsules it y of e ([facility]) 00:00: by mouth [place] 36,000-114, 00 with meals Me dical 000- and 3 with Branch 180,000 each unit CpDR snack. Up to 3 times a day. lipase-prot 2020-0 Yes [id number] Take up to [facility]16 7 capsules it y of e ([facility]) 00:00: by mouth [place] 36,000-114, 00 with meals Me dical 000- and 3 with Branch 180,000 each unit CpDR snack. Up to 3 times a day. lipase-prot 2020-0 Yes [id number] Take up to [facility]16 7 capsules it y of e ([facility]) 00:00: by mouth [place] 36,000-114, 00 with meals Me dical 000- and 3 with Branch 180,000 each unit CpDR snack. Up to 3 times a day. lipase-prot 2020-0 Yes [id number] Take up to [facility]16 7 capsules it y of e ([facility]) 00:00: by mouth [place] 36,000-114, 00 with meals Me dical 000- and 3 with Branch 180,000 each unit CpDR snack. Up to 3 times a day. lipase-prot 2020-0 Yes [id number] Take up to [facility]16 7 capsules it y of e ([facility]) 00:00: by mouth [place] 36,000-114, 00 with meals Me dical 000- and 3 with Branch 180,000 each unit CpDR snack. Up to 3 times a day. lipase-prot 2020-0 Yes [id number] Take up to [facility] 7 capsules it y of e ([facility]) 00:00: by mouth [place] 36,000-114, 00 with meals Me dical 000- and 3 with Branch 180,000 each unit CpDR snack. Up to 3 times a day. lipase-prot 0 Yes [id number] Take up to [facility]16 7 capsules it y of e ([facility]) 00:00: by mouth [place] 36,000-114, 00 with meals Me dical 000- and 3 with Branch 180,000 each unit CpDR snack. Up to 3 times a day. lipase-prot 0 Yes [id number] Take up to [facility]16 7 capsules it y of e ([facility]) 00:00: by mouth [place] 36,000-114, 00 with meals Me dical 000- and 3 with Branch 180,000 each unit CpDR snack. Up to 3 times a day. lipase-prot Yes [id number] Take up to [facility]16 7 capsules it y of e ([facility]) 00:00: by mouth [place] 36,000-114, 00 with meals Me dical 000- and 3 with Branch 180,000 each unit CpDR snack. Up to 3 times a day. lipase-prot 0 Yes [id number] Take up to [facility]16 7 capsules it y of e ([facility]) 00:00: by mouth [place] 36,000-114, 00 with meals Me dical 000- and 3 with Branch 180,000 each unit CpDR snack. Up to 3 times a day. lipase-prot 0 Yes [id number] Take up to [facility]16 7 capsules it y of e ([facility]) 00:00: by mouth [place],000-114, 00 with meals Me dical 000- and 3 with Branch 180,000 each unit CpDR snack. Up to 3 times a day. lipase-prot 0 Yes [id number] Take up to [facility] 7 capsules [facility] ([facility]) 00:[place]: [place] 36,000-114, 00 with meals [facility] 000- and 3 with [facility] 180,000 each unit CpDR snack. Up to 3 times a day. lipase-prot 2020-0 Yes [id number] Take up to [facility] 7 capsules [facility] ([facility]) 00:00: [place] 36,000-114, 00 with meals [facility] d[facility] 000- and 3 with [facility] 180,000 each unit CpDR snack. Up to 3 times a day. lipase-prot 0 Yes [id number] Take up to [facility] 7[facility]16 7 capsules [facility] ([facility]) 00:00: [place] mouth [place] 36,000-114, 00 with meals [facility] 000- and 3 with [facility] 180,000 each unit CpDR snack. Up to 3 times a day. lipase-prot 0 Yes [id number] Take up to [facility] 7[facility]16 7 capsules [facility] ([facility]) 00:00: by mouth [place] 36,000-114, 00 with meals [facility] 000- and 3 with [facility] 180,000 each unit CpDR snack. Up to 3 times a day. lipase-prot Yes [id number] Take up to [facility] 7[facility]16 7 capsules [facility] ([facility]) 00:00: by mouth [place] 36,000-114, 00 with meals [facility] d[facility] 000- and 3 with [facility] 180,000 each unit CpDR snack. Up to 3 times a day. lipase-prot 0 Yes [id number] Take up to [facility] 7[facility]16 7 capsules [facility] ([facility]) 00:00: by mouth [place] 36,000-114, 00 with meals [facility] d[facility] 000- and 3 with [facility] 180,000 each unit CpDR snack. Up to 3 times a day. lipase-prot 2020-0 Yes [id number] Take up to [facility] 7[facility]16 7 capsules [facility] ([facility]) 00:00: by mouth [place] 36,000-114, 00 with meals [facility] d[facility] 000- and 3 with [facility] 180,000 each unit CpDR snack. Up to 3 times a day. lipase-prot 2020-0 Yes [id number] Take up to [facility] 7[facility]16 7 capsules [facility] ([facility]) 00:00: by mouth [place] 36,000-114, 00 with meals [facility] d[facility] 000- and 3 with [facility] 180,000 each unit CpDR snack. Up to 3 times a day. lipase-prot 2020-0 Yes [id number] Take up to [facility] 7[facility]16 7 capsules [facility] ([facility]) 00:00: by mouth [place] 36,000-114, 00 with meals [facility] d[facility] 000- and 3 with [facility] 180,000 each unit CpDR snack. Up to 3 times a day. lipase-prot 2020-0 Yes [id number] Take up to [facility] 7[facility]16 7 capsules [facility] ([place]) 00:00: by mouth [place] 36,000-114, 00 with meals [facility] 000- and 3 with [facility] 180,000 each unit CpDR snack. Up to 3 times a day. lipase-prot 2020-0 Yes [id number] Take up to [facility] 7[facility]16 7 capsules [facility] ([place]) 00:00: by mouth [place] 36,000-114, 00 with meals [facility] 000- and 3 with [facility] 180,000 each unit CpDR snack. Up to 3 times a day. lipase-prot 2020-0 Yes [id number] Take up to [facility]16 7 capsules [facility] ([facility]) 00:00: by mouth [place] 36,000-114, 00 with meals [facility] d[facility] 000- and 3 with [facility] 180,000 each unit CpDR snack. Up to 3 times a day. lipase-prot 2020-0 Yes [id number] Take up to [facility] 7[facility]16 7 capsules [facility] ([place]) 00:00: by mouth [place] 36,000-114, 00 with meals [facility] d[facility] 000- and 3 with [facility] 180,000 each unit CpDR snack. Up to 3 times a day. lipase-prot 2020-0 Yes [id number] Take up to [facility] 7[facility]16 7 capsules [facility] ([facility]) 00:00: by mouth [place] 36,000-114, 00 with meals Me d[facility] 000- and 3 with [facility] 180,000 each unit CpDR snack. Up to 3 times a day. lipase-prot 2020-0 Yes [id number] Take up to [facility]16 7 capsules [facility] ([facility]) 00:00: by mouth [place] 36,000-114, 00 with meals [facility] d[facility] 000- and 3 with [facility] 180,000 each unit CpDR snack. Up to 3 times a day. lipase-prot 0 Yes [id number] Take up to [facility]16 7 capsules [facility] ([facility]) 00:00: by mouth [place] 36,000-114, 00 with meals [facility] d[facility] 000- and 3 with [facility] 180,000 each unit CpDR snack. Up to 3 times a day. lipase-prot 0 Yes [id number] Take up to [facility] 7[facility]16 7 capsules [facility] ([facility]) 00:00: by mouth [place] 36,000-114, 00 with meals Me d[facility] 000- and 3 with [facility] 180,000 each unit CpDR snack. Up to 3 times a day. lipase-prot Yes [id number] Take up to [facility] 7[facility]16 7 capsules [facility] ([facility]) 00:00: by mouth [place] 36,000-114, 00 with meals Me d[facility] 000- and 3 with [facility] 180,000 each unit CpDR snack. Up to 3 times a day. lipase-prot 0 Yes [id number] Take up to [facility] 7[facility]16 7 capsules [facility] ([facility]) 00:00: by mouth [place] 36,000-114, 00 with meals Me d[facility] 000- and 3 with [facility] 180,000 each unit CpDR snack. Up to 3 times a day. lipase-prot 0 Yes [id number] Take up to [facility] 7[facility]16 7 capsules [facility] ([facility]) 00:00: by mouth [place] 36,000-114, 00 with meals Me d[facility] 000- and 3 with [facility] 180,000 each unit CpDR snack. Up to 3 times a day. lipase-prot 0 Yes [id number] Take up to [facility]16 7 capsules [facility] ([place]) 00:00: by mouth [place] 36,000-114, 00 with meals Me d[facility] 000- and 3 with [facility] 180,000 each unit CpDR snack. Up to 3 times a day. lipase-prot 2020-0 Yes [id number] Take up to [facility]16 7 capsules [facility] ([place]) 00:00: by mouth [place] 36,000-114, 00 with meals Me d[facility] 000- and 3 with [facility] 180,000 each unit CpDR snack. Up to 3 times a day. lipase-prot 0 Yes [id number] Take up to [facility]16 7 capsules [facility] ([place]) 00:00: by mouth [place] 36,000-114, 00 with meals Me d[facility] 000- and 3 with [facility] 180,000 each unit CpDR snack. Up to 3 times a day. lipase-prot 0 Yes [id number] Take up to [facility] 7[facility]16 7 capsules [facility] ([facility]) 00:00: by mouth [place] 36,000-114, 00 with meals Me d[facility] 000- and 3 with [facility] 180,000 each unit CpDR snack. Up to 3 times a day. lipase-prot Yes [id number] Take up to [facility] 7[facility]16 7 capsules [facility] ([facility]) 00:00: by mouth [place] 36,000-114, 00 with meals Me d[facility] 000- and 3 with [facility] 180,000 each unit CpDR snack. Up to 3 times a day. lipase-prot 0 Yes [id number] Take up to [facility]16 7 capsules [facility] ([place]) 00:00: by mouth [place] 36,000-114, 00 with meals Me d[facility] 000- and 3 with [facility] 180,000 each unit CpDR snack. Up to 3 times a day. lipase-prot 2020-0 Yes [id number] Take up to [facility]16 7 capsules [facility] ([place]) 00:00: by mouth [place] 36,000-114, 00 with meals Me d[facility] 000- and 3 with [facility] 180,000 each unit CpDR snack. Up to 3 times a day. lipase-prot 2020-0 Yes [id number] Take up to [facility]16 7 capsules [facility] ([place]) 00:00: by mouth [place] 36,000-114, 00 with meals Me dical 000- and 3 with [facility] 180,000 each unit CpDR snack. Up to 3 times a day. lipase-prot 0 Yes [id number] Take up to [facility]16 7 capsules [facility] ([place]) 00:00: by mouth [place] 36,000-114, 00 with meals Me dical 000- and 3 with [facility] 180,000 each unit CpDR snack. Up to 3 times a day. lipase-prot Yes [id number] Take up to [facility]16 7 capsules [facility] ([facility]) 00:00: by mouth [place] 36,000-114, 00 with meals Me d[facility] 000- and 3 with [facility] 180,000 each unit CpDR snack. Up to 3 times a day. lipase-prot Yes [id number] Take up to [facility]16 7 capsules [facility] ([facility]) 00:00: by mouth [place] 36,000-114, 00 with meals Me d[facility] 000- and 3 with [facility] 180,000 each unit CpDR snack. Up to 3 times a day. lipase-prot Yes [id number] Take up to [facility]16 7 capsules [facility] ([facility]) 00:00: by mouth [place] 36,000-114, 00 with meals Me d[facility] 000- and 3 with [facility] 180,000 each unit CpDR snack. Up to 3 times a day. lipase-prot 2022- No [id number] Take up to [facility] 7[facility]16 03-09 7 capsules i ty [facility] e ([facility]) 00:00: 00:00 by mouth [place] 36,000-114, 00 :00 with meals Me dical 000- and 3 with [facility] 180,000 each unit CpDR snack. Up to 3 times a day. lipase-prot 2022- No [id number] Take up to [facility] - 7 capsules i [facility] e ([facility]) 00:00: 00:00 by mouth [place] 36,000-114, 00 :00 with meals Me dical 000- and 3 with [facility] 180,000 each unit CpDR snack. Up to 3 times a day. ACETAZOLAMI 202-0 Yes [id number] TAKE 1 [facility] [place] [facility] 6-16 CAPSULE BY [facility] capsule 00:00: MOUTH [place] 00 TWICE A [facility] DAY [facility] ACETAZOLAMI 2021-0 Yes [id number] TAKE 1 [facility] [place] [facility] mg 6-16 CAPSULE BY [facility] capsule 00:00: MOUTH [place] 00 TWICE A [facility] DAY [facility] ACETAZOLAMI 2021-0 Yes [id number] TAKE 1 [facility] [place] [facility] mg 6-16 CAPSULE BY [facility] capsule 00:00: MOUTH [place] 00 TWICE A [facility] DAY [facility] ACETAZOLAMI 2021-0 Yes [id number] TAKE 1 [facility] [place] 500 mg 6-16 CAPSULE BY [facility] capsule 00:00: MOUTH 00 TWICE A [facility] DAY [facility] ACETAZOLAMI 2020-0 Yes [id number] TAKE 1 [facility] [place] 500 mg 6-16 CAPSULE BY [facility] capsule 00:00: MOUTH 00 TWICE A [facility] DAY [facility] ACETAZOLAMI 2020-0 Yes [id number] TAKE 1 [facility] [place] 500 mg 6-16 CAPSULE BY [facility] capsule 00:00: MOUTH [place] 00 TWICE A [facility] DAY [facility] ACETAZOLAMI 1-0 Yes [id number] TAKE 1 [facility] [place] [facility] mg 6-16 CAPSULE BY [facility] capsule 00:00: MOUTH [place] 00 TWICE A [facility] DAY [facility] ACETAZOLAMI 1-0 Yes [id number] TAKE 1 [facility] [place] [facility] mg 6-16 CAPSULE BY [facility] capsule 00:00: MOUTH [place] 00 TWICE A [facility] DAY [facility] ACETAZOLAMI 1-0 Yes [id number] TAKE 1 [facility] [place] 500 mg 6-16 CAPSULE BY [facility] capsule 00:00: MOUTH [place] 00 TWICE A [facility] DAY [facility] ACETAZOLAMI 2021-0 Yes [id number] TAKE 1 [facility] [place] [facility] mg 6-16 CAPSULE BY [facility] capsule 00:00: MOUTH [place] 00 TWICE A [facility] DAY [facility] ACETAZOLAMI 2021-0 Yes [id number] TAKE 1 [facility] [place] 500 mg 6-16 CAPSULE BY [facility] capsule 00:00: MOUTH [place] 00 TWICE A [facility] DAY [facility] ACETAZOLAMI 2021-0 Yes [id number] TAKE 1 [facility] [place] 500 mg 6-16 CAPSULE BY [facility] capsule 00:00: MOUTH [place] 00 TWICE A [facility] DAY [facility] ACETAZOLAMI 2021-0 Yes [id number] TAKE 1 [facility] [place] 500 mg 6-16 CAPSULE BY [facility] capsule 00:00: MOUTH [place] 00 TWICE A [facility] DAY [facility] ACETAZOLAMI 2021-0 Yes [id number] TAKE 1 [facility] [place] 500 mg 6-16 CAPSULE BY [facility] capsule 00:00: MOUTH TWICE A [facility] DAY [facility] ACETAZOLAMI 2021-0 Yes [id number] TAKE 1 [facility] [place] [facility] mg 6-16 CAPSULE BY [facility] capsule 00:00: MOUTH TWICE A [facility] DAY [facility] ACETAZOLAMI 2021-0 Yes [id number] TAKE 1 [facility] [place] [facility] mg 6-16 CAPSULE BY [facility] capsule 00:00: MOUTH TWICE A [facility] DAY [facility] ACETAZOLAMI 2021-0 Yes [id number] TAKE 1 [facility] [place] 500 mg 6-16 CAPSULE BY [facility] capsule 00:00: MOUTH TWICE A [facility] DAY [facility] ACETAZOLAMI 2021-0 Yes [id number] TAKE 1 [facility] [place] 500 mg 6-16 CAPSULE BY [facility] capsule 00:00: MOUTH TWICE A [facility] DAY [facility] ACETAZOLAMI 2021-0 Yes [id number] TAKE 1 [facility] [place] 500 mg 6-16 CAPSULE BY [facility] of capsule 00:00: MOUTH TWICE A [facility] DAY [facility] ACETAZOLAMI 2021-0 Yes [id number] TAKE 1 [facility] [place] 500 mg 6-16 CAPSULE BY [facility] capsule 00:00: MOUTH 00 TWICE A [facility] DAY [facility] ACETAZOLAMI 2021-0 Yes [id number] TAKE 1 [facility] [place] 500 mg 6-16 CAPSULE BY [facility] capsule 00:00: MOUTH TWICE A [facility] DAY [facility] ACETAZOLAMI 2021-0 Yes [id number] TAKE 1 [facility] [place] 500 mg 6-16 CAPSULE BY [facility] capsule 00:00: MOUTH TWICE A [facility] DAY [facility] ACETAZOLAMI 2021-0 Yes [id number] TAKE 1 [facility] [place] 500 mg 6-16 CAPSULE BY [facility] capsule 00:00: MOUTH 00 TWICE A [facility] DAY [facility] ACETAZOLAMI 2021-0 Yes [id number] TAKE 1 [facility] [place] 500 mg 6-16 CAPSULE BY [facility] capsule 00:00: MOUTH 00 TWICE A [facility] DAY [facility] ACETAZOLAMI 2021-0 Yes [id number] TAKE 1 [facility] [place] 500 mg 6-16 CAPSULE BY [facility] capsule 00:00: MOUTH 00 TWICE A [facility] DAY [facility] ACETAZOLAMI 2021-0 Yes [id number] TAKE 1 [facility] [place] 500 mg 6-16 CAPSULE BY [facility] capsule 00:00: MOUTH [place] 00 TWICE A [facility] DAY [facility] ACETAZOLAMI 2021-0 Yes [id number] TAKE 1 [facility] [place] [facility] mg 6-16 CAPSULE BY [facility] capsule 00:00: MOUTH TWICE A [facility] DAY [facility] ACETAZOLAMI 2021-0 Yes [id number] TAKE 1 [facility] [place] 500 mg 6-16 CAPSULE BY [facility] capsule 00:00: MOUTH TWICE A [facility] DAY [facility] ACETAZOLAMI 2021-0 Yes [id number] TAKE 1 [facility] [place] 500 mg 6-16 CAPSULE BY [facility] capsule 00:00: MOUTH TWICE A [facility] DAY [facility] ACETAZOLAMI 2021-0 Yes [id number] TAKE 1 [facility] [place] 500 mg 6-16 CAPSULE BY [facility] capsule 00:00: MOUTH TWICE A [facility] DAY [facility] ACETAZOLAMI 2020-0 Yes [id number] TAKE 1 [facility] [place] 500 mg 6-16 CAPSULE BY [facility] of capsule 00:00: MOUTH TWICE A [facility] DAY [facility] ACETAZOLAMI 2020-0 Yes [id number] TAKE 1 [facility] [place] [facility] mg 6-16 CAPSULE BY [facility] of capsule 00:00: MOUTH TWICE A [facility] DAY [facility] ACETAZOLAMI 2021-0 Yes [id number] TAKE 1 [facility] [place] [facility] mg 6-16 CAPSULE BY [facility] capsule 00:00: MOUTH TWICE A [facility] DAY [facility] ACETAZOLAMI 2021-0 Yes [id number] TAKE 1 [facility] [place] [facility] mg 6-16 CAPSULE BY [facility] capsule 00:00: MOUTH TWICE A [facility] DAY [facility] ACETAZOLAMI 2021-0 Yes [id number] TAKE 1 [facility] [place] [facility] mg 6-16 CAPSULE BY [facility] capsule 00:00: MOUTH TWICE A [facility] DAY [facility] ACETAZOLAMI 2021-0 Yes [id number] TAKE 1 [facility] [place] 500 mg 6-16 CAPSULE BY [facility] capsule 00:00: MOUTH TWICE A [facility] DAY [facility] ACETAZOLAMI 2021-0 Yes [id number] TAKE 1 [facility] [place] [facility] mg 6-16 CAPSULE BY [facility] capsule 00:00: MOUTH TWICE A [facility] DAY [facility] ACETAZOLAMI 2021-0 Yes [id number] TAKE 1 [facility] [place] [facility] mg 6-16 CAPSULE BY [facility] capsule 00:00: MOUTH TWICE A [facility] DAY [facility] ACETAZOLAMI 2021-0 Yes [id number] TAKE 1 [facility] [place] [facility] mg 6-16 CAPSULE BY [facility] capsule 00:00: MOUTH TWICE A [facility] DAY [facility] ACETAZOLAMI 2021-0 Yes [id number] TAKE 1 [facility] [place] [facility] mg 6-16 CAPSULE BY [facility] capsule 00:00: MOUTH [place] 00 TWICE A [facility] DAY [facility] ACETAZOLAMI 2021-0 Yes [id number] TAKE 1 [facility] [place] 500 mg 6-16 CAPSULE BY [facility] of capsule 00:00: MOUTH 00 TWICE A [facility] DAY [facility] ACETAZOLAMI 2021-0 Yes [id number] TAKE 1 [facility] [place] 500 mg 6-16 CAPSULE BY [facility] capsule 00:00: MOUTH TWICE A [facility] DAY [facility] ACETAZOLAMI 2021-0 Yes [id number] TAKE 1 [facility] [place] 500 mg 6-16 CAPSULE BY [facility] capsule 00:00: MOUTH 00 TWICE A [facility] DAY [facility] ACETAZOLAMI 2021-0 Yes [id number] TAKE 1 [facility] [place] 500 mg 6-16 CAPSULE BY [facility] of capsule 00:00: MOUTH TWICE A [facility] DAY [facility] ACETAZOLAMI 2020-0 Yes [id number] TAKE 1 [facility] [place] 500 mg 6-16 CAPSULE BY [facility] of capsule 00:00: MOUTH TWICE A [facility] DAY [facility] ACETAZOLAMI 2021-0 Yes [id number] TAKE 1 [facility] [place] 500 mg 6-16 CAPSULE BY [facility] of capsule 00:00: MOUTH 00 TWICE A [facility] DAY [facility] ACETAZOLAMI 2021-0 Yes [id number] TAKE 1 [facility] [place] [facility] mg 6-16 CAPSULE BY [facility] of capsule 00:00: MOUTH 00 TWICE A [facility] DAY [facility] ACETAZOLAMI 2021-0 Yes [id number] TAKE 1 [facility] [place] [facility] mg 6-16 CAPSULE BY [facility]y of capsule 00:00: MOUTH 00 TWICE A [facility] DAY [facility] ACETAZOLAMI 2021-0 Yes [id number] TAKE 1 [facility] [place] [facility] mg 6-16 CAPSULE BY ity of capsule 00:00: MOUTH 00 TWICE A [facility] DAY [facility] ACETAZOLAMI 2021-0 Yes [id number] TAKE 1 [facility] [place] [facility] mg 6-16 CAPSULE BY ity of capsule 00:00: MOUTH 00 TWICE A [facility] DAY [facility] ACETAZOLAMI 2021-0 Yes [id number] TAKE 1 [facility] [place] [facility] mg 6-16 CAPSULE BY ity of capsule 00:00: MOUTH 00 TWICE A [facility] DAY [facility] ACETAZOLAMI 2021-0 Yes [id number] TAKE 1 [facility] [place] [facility] mg 6-16 CAPSULE BY [facility] of capsule 00:00: MOUTH 00 TWICE A [facility] DAY [facility] ACETAZOLAMI 2021-0 Yes [id number] TAKE 1 [facility] [place] [facility] mg 6-16 CAPSULE BY [facility] of capsule 00:00: MOUTH [place] 00 TWICE A [facility] DAY [facility] ACETAZOLAMI 2021-0 Yes [id number] TAKE 1 [facility] [place] 500 mg 6-16 CAPSULE BY ity of capsule 00:00: MOUTH TWICE A [facility] DAY [facility] ACETAZOLAMI 2021-0 Yes [id number] TAKE 1 [facility] [place] [facility] 6-16 CAPSULE BY [facility]y of capsule 00:00: MOUTH TWICE A [facility] DAY [facility] ACETAZOLAMI 2021-0 Yes [id number] TAKE 1 [facility] [place] 500 mg 6-16 CAPSULE BY [facility]y of capsule 00:00: MOUTH 00 TWICE A [facility] DAY [facility] ACETAZOLAMI 202-0 Yes [id number] TAKE 1 [facility] [place] [facility] mg 6-16 CAPSULE BY [facility] of capsule 00:00: MOUTH TWICE A [facility] DAY [facility] ACETAZOLAMI 2020-0 Yes [id number] TAKE 1 [facility] [place] 500 mg 6-16 CAPSULE BY [facility] of capsule 00:00: MOUTH TWICE A [facility] DAY [facility] ACETAZOLAMI 202-0 Yes [id number] TAKE 1 [facility] [place] [facility] mg 6-16 CAPSULE BY [facility] of capsule 00:00: MOUTH TWICE A [facility] DAY [facility] ACETAZOLAMI 1-0 Yes [id number] TAKE 1 [facility] [place] 500 mg 6-16 CAPSULE BY [facility] of capsule 00:00: MOUTH 00 TWICE A [facility] DAY [facility] ACETAZOLAMI 2020-0 Yes [id number] TAKE 1 [facility] [place] 500 mg 6-16 CAPSULE BY ity of capsule 00:00: MOUTH TWICE A [facility] DAY [facility] ACETAZOLAMI 2021-0 Yes [id number] TAKE 1 [facility] [place] 500 mg 6-16 CAPSULE BY ity of capsule 00:00: MOUTH 00 TWICE A [facility] DAY [facility] ACETAZOLAMI 2021-0 Yes [id number] TAKE 1 [facility] [place] 500 mg 6-16 CAPSULE BY [facility]y of capsule 00:00: MOUTH 00 TWICE A [facility] DAY [facility] ACETAZOLAMI 2021-0 Yes [id number] TAKE 1 [facility] [place] 500 mg 6-16 CAPSULE BY [facility] of capsule 00:00: MOUTH 00 TWICE A [facility] DAY [facility] ACETAZOLAMI 2021-0 Yes [id number] TAKE 1 [facility] [place] 500 mg 6-16 CAPSULE BY [facility] of capsule 00:00: MOUTH 00 TWICE A [facility] DAY [facility] ACETAZOLAMI 2021-0 Yes [id number] TAKE 1 [facility] [place] 500 mg 6-16 CAPSULE BY [facility]y of capsule 00:00: MOUTH [place] 00 TWICE A [facility] DAY [facility] ACETAZOLAMI 2021-0 Yes [id number] TAKE 1 [facility] [place] 500 mg 6-16 CAPSULE BY [facility]y of capsule 00:00: MOUTH [place] 00 TWICE A [facility] DAY [facility] ACETAZOLAMI 2021-0 Yes [id number] TAKE 1 [facility] [place] 500 mg 6-16 CAPSULE BY [facility]y of capsule 00:00: MOUTH TWICE A [facility] DAY [facility] ACETAZOLAMI 2021-0 Yes [id number] TAKE 1 [facility] [place] 500 mg 6-16 CAPSULE BY [facility] of capsule 00:00: MOUTH 00 TWICE A [facility] DAY [facility] ACETAZOLAMI 2021-0 Yes [id number] TAKE 1 [facility] [place] 500 mg 6-16 CAPSULE BY [facility] of capsule 00:00: MOUTH 00 TWICE A [facility] DAY [facility] ACETAZOLAMI 202-0 Yes [id number] TAKE 1 [facility] [place] 500 mg 6-16 CAPSULE BY [facility] of capsule 00:00: MOUTH TWICE A [facility] DAY [facility] ACETAZOLAMI 202-0 Yes [id number] TAKE 1 [facility] [place] 500 mg 6-16 CAPSULE BY [facility] of capsule 00:00: MOUTH [place] 00 TWICE A [facility] DAY [facility] ACETAZOLAMI 2021-0 Yes [id number] TAKE 1 [facility] [place] 500 mg 6-16 CAPSULE BY [facility]y of capsule 00:00: MOUTH 00 TWICE A [facility] DAY [facility] ACETAZOLAMI 2021-0 Yes [id number] TAKE 1 [facility] [place] 500 mg 6-16 CAPSULE BY [facility] of capsule 00:00: MOUTH 00 TWICE A [facility] DAY [facility] ACETAZOLAMI 2021-0 Yes [id number] TAKE 1 [facility] [place] 500 mg 6-16 CAPSULE BY [facility] of capsule 00:00: MOUTH 00 TWICE A [facility] DAY [facility] ACETAZOLAMI 2021-0 Yes [id number] TAKE 1 [facility] [place] 500 mg 6-16 CAPSULE BY [facility]y of capsule 00:00: MOUTH [place] 00 TWICE A [facility] DAY [facility] ACETAZOLAMI 2021-0 Yes [id number] TAKE 1 [facility] [place] 500 mg 6-16 CAPSULE BY ity of capsule 00:00: MOUTH [place] 00 TWICE A [facility] DAY [facility] ACETAZOLAMI 2021-0 Yes [id number] TAKE 1 [facility] [place] 500 mg 6-16 CAPSULE BY ity of capsule 00:00: MOUTH 00 TWICE A [facility] DAY [facility] ACETAZOLAMI 2021-0 Yes [id number] TAKE 1 [facility] [place] 500 mg 6-16 CAPSULE BY ity of capsule 00:00: MOUTH 00 TWICE A [facility] DAY [facility] ACETAZOLAMI 2021-0 Yes [id number] TAKE 1 [facility] [place] 500 mg 6-16 CAPSULE BY [facility]y of capsule 00:00: MOUTH TWICE A [facility] DAY [facility] ACETAZOLAMI 2021-0 Yes [id number] TAKE 1 [facility] [place] 500 mg 6-16 CAPSULE BY [facility]y of capsule 00:00: MOUTH TWICE A [facility] DAY [facility] ACETAZOLAMI 2021-0 Yes [id number] TAKE 1 [facility] [place] 500 mg 6-16 CAPSULE BY [facility] of capsule 00:00: MOUTH TWICE A [facility] DAY [facility] ACETAZOLAMI 2021-0 Yes [id number] TAKE 1 [facility] [place] 500 mg 6-16 CAPSULE BY [facility]y of capsule 00:00: MOUTH TWICE A [facility] DAY [facility] ACETAZOLAMI 2021-0 Yes [id number] TAKE 1 [facility] [place] 500 mg 6-16 CAPSULE BY ity of capsule 00:00: MOUTH TWICE A [facility] DAY [facility] ACETAZOLAMI 2021-0 Yes [id number] TAKE 1 [facility] [place] 500 mg 6-16 CAPSULE BY ity of capsule 00:00: MOUTH TWICE A [facility] DAY [facility] ACETAZOLAMI 2021-0 Yes [id number] TAKE 1 [facility] [place] 500 mg 6-16 CAPSULE BY ity of capsule 00:00: MOUTH TWICE A [facility] DAY [facility] ACETAZOLAMI 2021-0 Yes [id number] TAKE 1 [facility] [place] 500 mg 6-16 CAPSULE BY ity of capsule 00:00: MOUTH TWICE A [facility] DAY [facility] ACETAZOLAMI 2021-0 Yes [id number] TAKE 1 [facility] [place] 500 mg 6-16 CAPSULE BY ity of capsule 00:00: MOUTH TWICE A [facility] DAY [facility] ACETAZOLAMI 2021-0 Yes [id number] TAKE 1 [facility] [place] 500 mg 6-16 CAPSULE BY ity of capsule 00:00: MOUTH TWICE A [facility] DAY [facility] ACETAZOLAMI 2021-0 Yes [id number] TAKE 1 [facility] [place] 500 mg 6-16 CAPSULE BY ity of capsule 00:00: MOUTH TWICE A [facility] DAY [facility] ACETAZOLAMI 2021-0 Yes [id number] TAKE 1 [facility] [place] 500 mg 6-16 CAPSULE BY ity of capsule 00:00: MOUTH TWICE A [facility] DAY [facility] ACETAZOLAMI 2021-0 Yes [id number] TAKE 1 [facility] [place] 500 mg 6-16 CAPSULE BY ity of capsule 00:00: MOUTH TWICE A [facility] DAY [facility] ACETAZOLAMI 2021-0 Yes [id number] TAKE 1 [facility] [place] 500 mg 6-16 CAPSULE BY it[facility] of capsule 00:00: MOUTH TWICE A [facility] DAY [facility] ACETAZOLAMI 2021-0 Yes [id number] TAKE 1 [facility] [place] 500 mg 6-16 CAPSULE BY ity of capsule 00:00: MOUTH TWICE A [facility] DAY [facility] ACETAZOLAMI 2021-0 Yes [id number] TAKE 1 [facility] [place] 500 mg 6-16 CAPSULE BY ity of capsule 00:00: MOUTH TWICE A [facility] DAY [facility] ACETAZOLAMI 2021-0 Yes [id number] TAKE 1 [facility] [place] 500 mg 6-16 CAPSULE BY ity of capsule 00:00: MOUTH TWICE A [facility] DAY [facility] ACETAZOLAMI 2021-0 Yes [id number] TAKE 1 [facility] [place] 500 mg 6-16 CAPSULE BY ity of capsule 00:00: MOUTH TWICE A [facility] DAY [facility] ACETAZOLAMI 2021-0 Yes [id number] TAKE 1 [facility] [place] 500 mg 6-16 CAPSULE BY ity of capsule 00:00: MOUTH TWICE A [facility] DAY [facility] ACETAZOLAMI 2021-0 Yes [id number] TAKE 1 [facility] [place] 500 mg 6-16 CAPSULE BY ity of capsule 00:00: MOUTH TWICE A [facility] DAY [facility] ACETAZOLAMI 2021-0 Yes [id number] TAKE 1 [facility] [place] 500 mg 6-16 CAPSULE BY it[facility] of capsule 00:00: MOUTH TWICE A [facility] DAY [facility] ACETAZOLAMI 2021-0 Yes [id number] TAKE 1 [facility] [place] 500 mg 6-16 CAPSULE BY ity of capsule 00:00: MOUTH 00 TWICE A [facility] DAY [facility] ACETAZOLAMI 2021-0 Yes [id number] TAKE 1 [facility] [place] 500 mg 6-16 CAPSULE BY ity of capsule 00:00: MOUTH 00 TWICE A [facility] DAY [facility] ACETAZOLAMI 2021-0 Yes [id number] TAKE 1 [facility] [place] 500 mg 6-16 CAPSULE BY ity of capsule 00:00: MOUTH 00 TWICE A [facility] DAY [facility] ACETAZOLAMI 2021-0 Yes [id number] TAKE 1 [facility] [place] 500 mg 6-16 CAPSULE BY ity of capsule 00:00: MOUTH 00 TWICE A [facility] DAY [facility] ACETAZOLAMI 2021-0 Yes [id number] TAKE 1 [facility] [place] 500 mg 6-16 CAPSULE BY it[facility] of capsule 00:00: MOUTH 00 TWICE A [facility] DAY [facility] ACETAZOLAMI 2021-0 Yes [id number] TAKE 1 [facility] [place] 500 mg 6-16 CAPSULE BY it[facility] of capsule 00:00: MOUTH TWICE A [facility] DAY [facility] ACETAZOLAMI 2021-0 Yes [id number] TAKE 1 [facility] [place] 500 mg 6-16 CAPSULE BY it[facility] of capsule 00:00: MOUTH TWICE A [facility] DAY [facility] ACETAZOLAMI 2021-0 Yes [id number] TAKE 1 [facility] [place] 500 mg 6-16 CAPSULE BY it[facility] of capsule 00:00: MOUTH TWICE A [facility] DAY [facility] ACETAZOLAMI 2021-0 Yes [id number] TAKE 1 [facility] [place] 500 mg 6-16 CAPSULE BY ity of capsule 00:00: MOUTH TWICE A [facility] DAY [facility] ACETAZOLAMI 2021-0 Yes [id number] TAKE 1 [facility] [place] 500 mg 6-16 CAPSULE BY it[facility] of capsule 00:00: MOUTH TWICE A [facility] DAY [facility] ACETAZOLAMI 2021-0 Yes [id number] TAKE 1 [facility] [place] 500 mg 6-16 CAPSULE BY ity of capsule 00:00: MOUTH TWICE A [facility] DAY [facility] ACETAZOLAMI 2021-0 Yes [id number] TAKE 1 [facility] [place] 500 mg 6-16 CAPSULE BY it[facility] of capsule 00:00: MOUTH 00 TWICE A [facility] DAY [facility] ACETAZOLAMI 2021-0 Yes [id number] TAKE 1 [facility] [place] 500 mg 6-16 CAPSULE BY ity of capsule 00:00: MOUTH TWICE A [facility] DAY [facility] ACETAZOLAMI 2021-0 Yes [id number] TAKE 1 [facility] [place] 500 mg 6-16 CAPSULE BY ity of capsule 00:00: MOUTH TWICE A [facility] DAY [facility] ACETAZOLAMI 2021-0 Yes [id number] TAKE 1 [facility] [place] 500 mg 6-16 CAPSULE BY ity of capsule 00:00: MOUTH 00 TWICE A [facility] DAY [facility] ACETAZOLAMI 2021-0 Yes [id number] TAKE 1 [facility] [place] [facility] mg 6-16 CAPSULE BY ity of capsule 00:00: MOUTH TWICE A [facility] DAY [facility] ACETAZOLAMI 2021-0 Yes [id number] TAKE 1 [facility] [place] [facility] mg 6-16 CAPSULE BY ity of capsule 00:00: MOUTH 00 TWICE A [facility] DAY [facility] ACETAZOLAMI 2021-0 Yes [id number] TAKE 1 [facility] [place] 500 mg 6-16 CAPSULE BY ity of capsule 00:00: MOUTH TWICE A [facility] DAY [facility] ACETAZOLAMI 2021-0 Yes [id number] TAKE 1 [facility] [place] [facility] mg 6-16 CAPSULE BY ity of capsule 00:00: MOUTH [place] 00 TWICE A [facility] DAY [facility] ACETAZOLAMI 2021-0 Yes [id number] TAKE 1 [facility] [place] [facility] mg 6-16 CAPSULE BY ity of capsule 00:00: MOUTH 00 TWICE A [facility] DAY [facility] ACETAZOLAMI 2021-0 Yes [id number] TAKE 1 [facility] [place] 500 mg 6-16 CAPSULE BY ity of capsule 00:00: MOUTH TWICE A [facility] DAY [facility] ACETAZOLAMI 2021-0 Yes [id number] TAKE 1 [facility] [place] [facility] mg 6-16 CAPSULE BY it[facility] of capsule 00:00: MOUTH 00 TWICE A [facility] DAY [facility] ACETAZOLAMI 202-0 Yes [id number] TAKE 1 [facility] [place] 500 mg 6-16 CAPSULE BY ity of capsule 00:00: MOUTH TWICE A [facility] DAY [facility] ACETAZOLAMI 202-0 Yes [id number] TAKE 1 [facility] [place] [facility] mg 6-16 CAPSULE BY it[facility] of capsule 00:00: MOUTH TWICE A [facility] DAY [facility] ACETAZOLAMI 2021-0 Yes [id number] TAKE 1 [facility] [place] [facility] mg 6-16 CAPSULE BY [facility] 00:00: MOUTH 00 TWICE [facility] ACETAZOLAMI 2021-0 Yes [id number] TAKE 1 [facility] 6-16 CAPSULE BY [facility] 00:00: MOUTH 00 TWICE [facility] ACETAZOLAMI 2021-0 Yes [id number] TAKE 1 [facility] [place] [facility] 6-16 CAPSULE BY [facility] 00:00: MOUTH 00 TWICE [facility] ACETAZOLAMI 2021-0 Yes [id number] TAKE 1 [facility] [place] [facility] 6-16 CAPSULE BY [facility] 00:00: MOUTH 00 TWICE [facility] ACETAZOLAMI 2021-0 Yes [id number] TAKE 1 [facility] [place] [facility] 6-16 CAPSULE BY [facility] 00:00: MOUTH 00 TWICE [facility] ACETAZOLAMI 2021-0 Yes [id number] TAKE 1 [facility] [place] 500 [facility] 6-16 CAPSULE BY [facility] 00:00: MOUTH 00 TWICE [facility] ACETAZOLAMI 2021-0 Yes [id number] TAKE 1 [facility] [place] [facility] 6-16 CAPSULE BY [facility] 00:00: MOUTH 00 TWICE [facility] ACETAZOLAMI 2021-0 Yes [id number] TAKE 1 [facility] [place] [facility] 6-16 CAPSULE BY [facility] 00:00: MOUTH 00 TWICE [facility] ACETAZOLAMI 2021-0 Yes [id number] TAKE 1 [facility] [place] 500 [facility] 6-16 CAPSULE BY [facility] 00:00: MOUTH TWICE [facility] ACETAZOLAMI 2021-0 Yes [id number] TAKE 1 [facility] [place] 500 [facility] 6-16 CAPSULE BY [facility] 00:00: MOUTH TWICE [facility] ACETAZOLAMI 2021-0 Yes [id number] TAKE 1 [facility] [place] 500 [facility] 6-16 CAPSULE BY [facility] 00:00: MOUTH TWICE [facility] ACETAZOLAMI 2021-0 Yes [id number] TAKE 1 [facility] [place] [facility] 6-16 CAPSULE BY [facility] 00:00: MOUTH TWICE [facility] ACETAZOLAMI 2020-0 Yes [id number] TAKE 1 [facility] [place] 500 [facility] 6-16 CAPSULE BY [facility] 00:00: MOUTH TWICE [facility] ACETAZOLAMI 2021-0 Yes [id number] TAKE 1 [facility] [place] 500 [facility] 6-16 CAPSULE BY [facility] 00:00: MOUTH TWICE [facility] ACETAZOLAMI 1-0 Yes [id number] TAKE 1 [facility] [place] [facility] 6-16 CAPSULE BY [facility] 00:00: MOUTH TWICE [facility] ACETAZOLAMI 1-0 Yes [id number] TAKE 1 [facility] [place] [facility] 6-16 CAPSULE BY [facility] 00:00: MOUTH TWICE [facility] ACETAZOLAMI 2021-0 Yes [id number] TAKE 1 [facility] [place] [facility] 6-16 CAPSULE BY [facility] 00:00: MOUTH 00 TWICE [facility] ACETAZOLAMI 2021-0 Yes [id number] TAKE 1 [facility] [place] [facility] 6-16 CAPSULE BY [facility] 00:00: MOUTH 00 TWICE [facility] ACETAZOLAMI 2021-0 Yes [id number] TAKE 1 [facility] [place] [facility] 6-16 CAPSULE BY [facility] 00:00: MOUTH 00 TWICE [facility] ACETAZOLAMI 2021-0 Yes [id number] TAKE 1 [facility] [place] [facility] 6-16 CAPSULE BY [facility] 00:00: MOUTH 00 TWICE [facility] ACETAZOLAMI 2021-0 Yes [id number] TAKE 1 [facility] [place] [facility] 6-16 CAPSULE BY [facility] 00:00: MOUTH [place] 00 TWICE [facility] ACETAZOLAMI 2021-0 Yes [id number] TAKE 1 [facility] [place] [facility] 6-16 CAPSULE BY [facility] 00:00: MOUTH 00 TWICE [facility] ACETAZOLAMI 2021-0 Yes [id number] TAKE 1 [facility] [place] [facility] 6-16 CAPSULE BY [facility] 00:00: MOUTH TWICE [facility] ACETAZOLAMI 2021-0 Yes [id number] TAKE 1 [facility] [place] [facility] 6-16 CAPSULE BY [facility] 00:00: MOUTH 00 TWICE [facility] ACETAZOLAMI 2021-0 Yes [id number] TAKE 1 [facility] [place] [facility] 6-16 CAPSULE BY [facility] 00:00: MOUTH TWICE [facility] ACETAZOLAMI 202-0 Yes [id number] TAKE 1 [facility] [place] [facility] 6-16 CAPSULE BY [facility] 00:00: MOUTH TWICE [facility] ACETAZOLAMI 202-0 Yes [id number] TAKE 1 [facility] [place] 500 [facility] 6-16 CAPSULE BY [facility] 00:00: MOUTH 00 TWICE [facility] ACETAZOLAMI 2021-0 Yes [id number] TAKE 1 [facility] [place] 500 [facility] 6-16 CAPSULE BY [facility] 00:00: MOUTH 00 TWICE [facility] ACETAZOLAMI 2021-0 Yes [id number] TAKE 1 [facility] [place] 500 [facility] 6-16 CAPSULE BY [facility] 00:00: MOUTH 00 TWICE [facility] ACETAZOLAMI 2021-0 Yes [id number] TAKE 1 [facility] [place] 500 [facility] 6-16 CAPSULE BY [facility] 00:00: MOUTH 00 TWICE [facility] ACETAZOLAMI 2021-0 Yes [id number] TAKE 1 [facility] [place] 500 [facility] 6-16 CAPSULE BY [facility] 00:00: MOUTH 00 TWICE [facility] ACETAZOLAMI 2021-0 Yes [id number] TAKE 1 [facility] [place] [facility] 6-16 CAPSULE BY [facility] 00:00: MOUTH [place] 00 TWICE [facility] ACETAZOLAMI 2021-0 Yes [id number] TAKE 1 [facility] [place] 500 [facility] 6-16 CAPSULE BY [facility] 00:00: MOUTH 00 TWICE [facility] ACETAZOLAMI 2021-0 Yes [id number] TAKE 1 [facility] [place] [facility] 6-16 CAPSULE BY [facility] 00:00: MOUTH [place] 00 TWICE [facility] ACETAZOLAMI 2021-0 Yes [id number] TAKE 1 [facility] [place] 500 [facility] 6-16 CAPSULE BY [facility] 00:00: MOUTH TWICE [facility] ACETAZOLAMI 2021-0 Yes [id number] TAKE 1 [facility] [place] 500 [facility] 6-16 CAPSULE BY [facility] 00:00: MOUTH TWICE [facility] ACETAZOLAMI 2021-0 Yes [id number] TAKE 1 [facility] [place] 500 [facility] 6-16 CAPSULE BY [facility] 00:00: MOUTH TWICE [facility] ACETAZOLAMI 2021-0 Yes [id number] TAKE 1 [facility] [place] 500 [facility] 6-16 CAPSULE BY [facility] 00:00: MOUTH TWICE [facility] ACETAZOLAMI 2021-0 Yes [id number] TAKE 1 [facility] [place] 500 [facility] 6-16 CAPSULE BY [facility] 00:00: MOUTH TWICE [facility] ACETAZOLAMI 2021-0 Yes [id number] TAKE 1 [facility] [place] 500 [facility] 6-16 CAPSULE BY [facility] 00:00: MOUTH TWICE [facility] ACETAZOLAMI 2021-0 Yes [id number] TAKE 1 [facility] [place] [facility] 6-16 CAPSULE BY [facility] 00:00: MOUTH 00 TWICE [facility] ACETAZOLAMI 2021-0 Yes [id number] TAKE 1 [facility] [place] 500 [facility] 6-16 CAPSULE BY [facility] 00:00: MOUTH TWICE [facility] ACETAZOLAMI 2021-0 Yes [id number] TAKE 1 [facility] [place] 500 [facility] 6-16 CAPSULE BY [facility] 00:00: MOUTH 00 TWICE [facility] ACETAZOLAMI 2021-0 Yes [id number] TAKE 1 [facility] [place] 500 [facility] 6-16 CAPSULE BY [facility] 00:00: MOUTH 00 TWICE [facility] ACETAZOLAMI 2021-0 Yes [id number] TAKE 1 [facility] [place] [facility] 6-16 CAPSULE BY [facility] 00:00: MOUTH 00 TWICE [facility] ACETAZOLAMI 2021-0 Yes [id number] TAKE 1 [facility] [place] 500 [facility] 6-16 CAPSULE BY [facility] 00:00: MOUTH 00 TWICE [facility] ACETAZOLAMI 2021-0 Yes [id number] TAKE 1 [facility] [place] 500 [facility] 6-16 CAPSULE BY [facility] 00:00: MOUTH TWICE [facility] ACETAZOLAMI 2021-0 Yes [id number] TAKE 1 [facility] [place] 500 [facility] 6-16 CAPSULE BY [facility] 00:00: MOUTH TWICE [facility] ACETAZOLAMI 2021-0 Yes [id number] TAKE 1 [facility] [place] 500 [facility] 6-16 CAPSULE BY [facility] 00:00: MOUTH TWICE [facility] ACETAZOLAMI 2021-0 Yes [id number] TAKE 1 [facility] 500 [facility] 6-16 CAPSULE BY [facility] 00:00: MOUTH TWICE [facility] ACETAZOLAMI 2021-0 Yes [id number] TAKE 1 [facility] 500 [facility] 6-16 CAPSULE BY [facility] 00:00: MOUTH TWICE [facility] ACETAZOLAMI 2021-0 Yes [id number] TAKE 1 [facility] 500 [facility] 6-16 CAPSULE BY [facility] 00:00: MOUTH TWICE [facility] ACETAZOLAMI 2021-0 Yes [id number] TAKE 1 [facility] 500 [facility] 6-16 CAPSULE BY [facility] 00:00: MOUTH TWICE [facility] ACETAZOLAMI 2021-0 Yes [id number] TAKE 1 [facility] 500 [facility] 6-16 CAPSULE BY [facility] 00:00: MOUTH TWICE [facility] ACETAZOLAMI 2021-0 Yes [id number] TAKE 1 [facility] 500 [facility] 6-16 CAPSULE BY [facility] 00:00: MOUTH TWICE [facility] ACETAZOLAMI 2021-0 Yes [id number] TAKE 1 [facility] 500 [facility] 6-16 CAPSULE BY [facility] 00:00: MOUTH TWICE [facility] ACETAZOLAMI 2021-0 Yes [id number] TAKE 1 [facility] 500 [facility] 6-16 CAPSULE BY [facility] 00:00: MOUTH TWICE [facility] ACETAZOLAMI 2021-0 Yes [id number] TAKE 1 [facility] 500 [facility] 6-16 CAPSULE BY [facility] 00:00: MOUTH TWICE [facility] ACETAZOLAMI 2021-0 Yes [id number] TAKE 1 [facility] 500 [facility] 6-16 CAPSULE BY [facility] 00:00: MOUTH TWICE [facility] ACETAZOLAMI 2021-0 Yes [id number] TAKE 1 [facility] 500 [facility] 6-16 CAPSULE BY [facility] 00:00: MOUTH 00 TWICE [facility] ACETAZOLAMI 2021-0 Yes [id number] TAKE 1 [facility] 500 [facility] 6-16 CAPSULE BY [facility] 00:00: MOUTH TWICE [facility] ACETAZOLAMI 2021-0 Yes [id number] TAKE 1 [facility] 500 [facility] 6-16 CAPSULE BY [facility] 00:00: MOUTH TWICE [facility] ACETAZOLAMI 2021-0 Yes [id number] TAKE 1 [facility] 500 [facility] 6-16 CAPSULE BY [facility] 00:00: MOUTH TWICE [facility] ACETAZOLAMI 2021-0 Yes [id number] TAKE 1 [facility] 500 [facility] 6-16 CAPSULE BY [facility] 00:00: MOUTH TWICE [facility] ACETAZOLAMI 2021-0 Yes [id number] TAKE 1 [facility] 500 [facility] 6-16 CAPSULE BY [facility] 00:00: MOUTH TWICE [facility] ACETAZOLAMI 2021-0 Yes [id number] TAKE 1 [facility] 500 [facility] 6-16 CAPSULE BY [facility] 00:00: MOUTH TWICE [facility] ACETAZOLAMI 2021-0 Yes [id number] TAKE 1 [facility] 500 [facility] 6-16 CAPSULE BY [facility] 00:00: MOUTH TWICE [facility] ACETAZOLAMI 2021-0 Yes [id number] TAKE 1 [facility] 500 [facility] 6-16 CAPSULE BY [facility] 00:00: MOUTH TWICE [facility] ACETAZOLAMI 2021-0 Yes [id number] TAKE 1 [facility] 500 [facility] 6-16 CAPSULE BY [facility] 00:00: MOUTH TWICE [facility] ACETAZOLAMI 2021-0 Yes [id number] TAKE 1 [facility] 500 [facility] 6-16 CAPSULE BY [facility] 00:00: MOUTH 00 TWICE [facility] ACETAZOLAMI 2021-0 Yes [id number] TAKE 1 [facility] 500 [facility] 6-16 CAPSULE BY [facility] 00:00: MOUTH TWICE [facility] ACETAZOLAMI 2021-0 Yes [id number] TAKE 1 [facility] 500 [facility] 6-16 CAPSULE BY [facility] 00:00: MOUTH 00 TWICE [facility] ACETAZOLAMI 2021-0 Yes [id number] TAKE 1 [facility] 500 [facility] 6-16 CAPSULE BY [facility] 00:00: MOUTH 00 TWICE [facility] ACETAZOLAMI 2021-0 Yes [id number] TAKE 1 [facility] 500 [facility] 6-16 CAPSULE BY [facility] 00:00: MOUTH 00 TWICE [facility] ACETAZOLAMI 2021-0 Yes [id number] TAKE 1 [facility] 500 [facility] 6-16 CAPSULE BY [facility] 00:00: MOUTH 00 TWICE [facility] ACETAZOLAMI 2021-0 Yes [id number] TAKE 1 [facility] 500 [facility] 6-16 CAPSULE BY [facility] 00:00: MOUTH TWICE [facility] ACETAZOLAMI 2021-0 Yes [id number] TAKE 1 [facility] 500 [facility] 6-16 CAPSULE BY [facility] 00:00: MOUTH 00 TWICE [facility] ACETAZOLAMI 2021-0 Yes [id number] TAKE 1 [facility] 500 [facility] 6-16 CAPSULE BY [facility] 00:00: MOUTH TWICE [facility] ACETAZOLAMI 2021-0 Yes [id number] TAKE 1 [facility] 500 [facility] 6-16 CAPSULE BY [facility] 00:00: MOUTH TWICE [facility] ACETAZOLAMI 2021-0 Yes [id number] TAKE 1 [facility] 500 [facility] 6-16 CAPSULE BY [facility] 00:00: MOUTH 00 TWICE [facility] ACETAZOLAMI 2021-0 Yes [id number] TAKE 1 [facility] 500 [facility] 6-16 CAPSULE BY [facility] 00:00: MOUTH 00 TWICE [facility] ACETAZOLAMI 2021-0 Yes [id number] TAKE 1 [facility] 500 [facility] 6-16 CAPSULE BY [facility] 00:00: MOUTH 00 TWICE [facility] ACETAZOLAMI 2021-0 Yes [id number] TAKE 1 [facility] 500 [facility] 6-16 CAPSULE BY [facility] 00:00: MOUTH 00 TWICE [facility] ACETAZOLAMI 2021-0 Yes [id number] TAKE 1 [facility] 500 [facility] 6-16 CAPSULE BY [facility] 00:00: MOUTH 00 TWICE [facility] ACETAZOLAMI 2021-0 Yes [id number] TAKE 1 [facility] 500 [facility] 6-16 CAPSULE BY [facility] 00:00: MOUTH 00 TWICE [facility] ACETAZOLAMI 2021-0 Yes [id number] TAKE 1 [facility] 500 mg 6-16 CAPSULE BY [facility] 00:00: MOUTH 00 TWICE [facility] ACETAZOLAMI 2021-0 Yes [id number] TAKE 1 [facility] 500 [facility] 6-16 CAPSULE BY [facility] 00:00: MOUTH [place] 00 TWICE A [facility] ACETAZOLAMI 2021-0 Yes [id number] TAKE 1 [facility] 500 [facility] 6-16 CAPSULE BY [facility] 00:00: MOUTH [place] 00 TWICE [facility] ACETAZOLAMI 2021-0 Yes [id number] TAKE 1 [facility] 500 [facility] 6-16 CAPSULE BY [facility] 00:00: MOUTH [place] 00 TWICE [facility] ACETAZOLAMI 2021-0 Yes [id number] TAKE 1 [facility] 500 [facility] 6-16 CAPSULE BY [facility] 00:00: MOUTH [place] 00 TWICE [facility] ACETAZOLAMI 2021-0 Yes [id number] TAKE 1 [facility] 500 [facility] 6-16 CAPSULE BY [facility] 00:00: MOUTH [place] 00 TWICE A [facility] ACETAZOLAMI 2021-0 2023- No [id number] TAKE 1 [facility] 6-16 03-31 CAPSULE BY [facility] 00:00: 00:00 MOUTH [place] 00 :00 TWICE A [facility] LEVOTHYROXI 2021-0 Yes [id number] TAKE 1 [facility] [place] [facility] m[facility] 4-08 TABLET BY [facility] tablet 00:00: MOUTH [place] 00 EVERY [facility] WITH 100MCG TABLET LEVOTHYROXI 2021-0 Yes [id number] TAKE 1 [facility] [place] [facility] mcg 4-08 TABLET BY [facility] tablet 00:00: MOUTH [place] 00 EVERY [facility] WITH 100MCG TABLET LEVOTHYROXI 2021-0 Yes [id number] TAKE 1 [facility] [place] [facility] mcg 4-08 TABLET BY [facility] tablet 00:00: MOUTH [place] 00 EVERY [facility] WITH 100MCG TABLET LEVOTHYROXI 2021-0 Yes [id number] TAKE 1 [facility] [place] [facility] mcg 4-08 TABLET BY [facility] tablet 00:00: MOUTH [place] 00 EVERY [facility] WITH 100MCG TABLET LEVOTHYROXI 2021-0 Yes [id number] TAKE 1 [facility] [place] 88 mcg 4-08 TABLET BY [facility] tablet 00:00: MOUTH [place] 00 EVERY [facility] WITH 100MCG TABLET LEVOTHYROXI 2021-0 Yes [id number] TAKE 1 [facility] 88 mcg 4-08 TABLET BY [facility] tablet 00:00: MOUTH [place] 00 EVERY [facility] WITH 100MCG TABLET LEVOTHYROXI 2021-0 Yes [id number] TAKE 1 [facility] mcg 4-08 TABLET BY [facility] f tablet 00:00: MOUTH [place] 00 EVERY [facility] WITH 100MCG TABLET LEVOTHYROXI 2021-0 Yes [id number] TAKE 1 [facility] 88 mcg 4-08 TABLET BY [facility] tablet 00:00: MOUTH [place] 00 EVERY [facility] WITH 100MCG TABLET LEVOTHYROXI 2021-0 Yes [id number] TAKE 1 [facility] 88 mcg 4-08 TABLET BY [facility] tablet 00:00: MOUTH [place] 00 EVERY [facility] WITH 100MCG TABLET LEVOTHYROXI 2021-0 Yes [id number] TAKE 1 [facility] 88 mcg 4-08 TABLET BY [facility] tablet 00:00: MOUTH [place] 00 EVERY [facility] WITH 100MCG TABLET LEVOTHYROXI 2021-0 Yes [id number] TAKE 1 [facility] 88 mcg 4-08 TABLET BY [facility] f tablet 00:00: MOUTH 00 EVERY [facility] WITH 100MCG TABLET LEVOTHYROXI 2021-0 Yes [id number] TAKE 1 [facility] 88 mcg 4-08 TABLET BY [facility] tablet 00:00: MOUTH [place] 00 EVERY [facility] M[facility] WITH 100MCG TABLET LEVOTHYROXI 2021-0 Yes [id number] TAKE 1 [facility] 88 mcg 4-08 TABLET BY [facility] f tablet 00:00: MOUTH [place] 00 EVERY [facility] WITH 100MCG TABLET LEVOTHYROXI 2021-0 Yes [id number] TAKE 1 [facility] 88 mcg 4-08 TABLET BY [facility] f tablet 00:00: MOUTH [place] 00 EVERY [facility] M[facility] WITH 100MCG TABLET LEVOTHYROXI 2021-0 Yes [id number] TAKE 1 [facility] 88 mcg 4-08 TABLET BY [facility] o f tablet 00:00: MOUTH [place] 00 EVERY [facility] M[facility] WITH 100MCG TABLET LEVOTHYROXI 2021-0 Yes [id number] TAKE 1 [facility] 88 mcg 4-08 TABLET BY [facility] o f tablet 00:00: MOUTH [place] 00 EVERY [facility] M[facility] WITH 100MCG TABLET LEVOTHYROXI 2021-0 Yes [id number] TAKE 1 [facility] 88 mcg 4-08 TABLET BY [facility] tablet 00:00: MOUTH [place] 00 EVERY [facility] M[facility] WITH 100MCG TABLET LEVOTHYROXI 2021-0 Yes [id number] TAKE 1 [facility] 88 mcg 4-08 TABLET BY [facility] tablet 00:00: MOUTH [place] 00 EVERY [facility] M[facility] WITH 100MCG TABLET LEVOTHYROXI 2021-0 Yes [id number] TAKE 1 [facility] 88 mcg 4-08 TABLET BY [facility] tablet 00:00: MOUTH [place] 00 EVERY [facility] M[facility] WITH 100MCG TABLET LEVOTHYROXI 2021-0 Yes [id number] TAKE 1 [facility] 88 mcg 4-08 TABLET BY [facility] tablet 00:00: MOUTH [place] 00 EVERY [facility] M[facility] WITH 100MCG TABLET LEVOTHYROXI 2021-0 Yes [id number] TAKE 1 [facility] 88 mcg 4-08 TABLET BY [facility] o f tablet 00:00: MOUTH [place] 00 EVERY [facility] M[facility] WITH 100MCG TABLET LEVOTHYROXI 2021-0 Yes [id number] TAKE 1 [facility] 88 mcg 4-08 TABLET BY [facility] o [facility] tablet 00:00: MOUTH [place] 00 EVERY [facility] M[facility] WITH 100MCG TABLET LEVOTHYROXI 2021-0 Yes [id number] TAKE 1 [facility] 88 mcg 4-08 TABLET BY [facility] o [facility] tablet 00:00: MOUTH [place] 00 EVERY [facility] M[facility] WITH 100MCG TABLET LEVOTHYROXI 2021-0 Yes [id number] TAKE 1 [facility] 88 mcg 4-08 TABLET BY [facility] o f tablet 00:00: MOUTH [place] 00 EVERY [facility] M[facility] WITH 100MCG TABLET LEVOTHYROXI 2021-0 Yes [id number] TAKE 1 [facility] 88 mcg 4-08 TABLET BY [facility] o f tablet 00:00: MOUTH [place] 00 EVERY [facility] WITH 100MCG TABLET LEVOTHYROXI 2021-0 Yes [id number] TAKE 1 [facility] 88 mcg 4-08 TABLET BY [facility] o f tablet 00:00: MOUTH [place] 00 EVERY [facility] M[facility] WITH 100MCG TABLET LEVOTHYROXI 2021-0 Yes [id number] TAKE 1 [facility] 88 mcg 4-08 TABLET BY [facility] o f tablet 00:00: MOUTH [place] 00 EVERY [facility] M[facility] WITH 100MCG TABLET LEVOTHYROXI 2021-0 Yes [id number] TAKE 1 [facility] 88 mcg 4-08 TABLET BY [facility] o f tablet 00:00: MOUTH [place] 00 EVERY [facility] M[facility] WITH 100MCG TABLET LEVOTHYROXI 2021-0 Yes [id number] TAKE 1 [facility] 88 mcg 4-08 TABLET BY [facility] o f tablet 00:00: MOUTH [place] 00 EVERY [facility] M[facility] WITH 100MCG TABLET LEVOTHYROXI 2021-0 Yes [id number] TAKE 1 [facility] 88 mcg 4-08 TABLET BY [facility] o f tablet 00:00: MOUTH [place] 00 EVERY [facility] M[facility] WITH 100MCG TABLET LEVOTHYROXI 2021-0 Yes [id number] TAKE 1 [facility] 88 mcg 4-08 TABLET BY [facility] o f tablet 00:00: MOUTH [place] 00 EVERY [facility] M[facility] WITH 100MCG TABLET LEVOTHYROXI 2021-0 Yes [id number] TAKE 1 [facility] 88 mcg 4-08 TABLET BY [facility] o f tablet 00:00: MOUTH [place] 00 EVERY [facility] M[facility] WITH 100MCG TABLET LEVOTHYROXI 2021-0 Yes [id number] TAKE 1 [facility] 88 mcg 4-08 TABLET BY [facility] o f tablet 00:00: MOUTH [place] 00 EVERY [facility] M[facility] WITH 100MCG TABLET LEVOTHYROXI 2021-0 Yes [id number] TAKE 1 [facility] 88 mcg 4-08 TABLET BY ity o f tablet 00:00: MOUTH [place] 00 EVERY [facility] M[facility] WITH 100MCG TABLET LEVOTHYROXI 2021-0 Yes [id number] TAKE 1 [facility] 88 mcg 4-08 TABLET BY ity o f tablet 00:00: MOUTH [place] 00 EVERY [facility] M[facility] WITH 100MCG TABLET LEVOTHYROXI 2021-0 Yes [id number] TAKE 1 [facility] 88 mcg 4-08 TABLET BY ity o f tablet 00:00: MOUTH [place] 00 EVERY [facility] M[facility] WITH 100MCG TABLET LEVOTHYROXI 2021-0 Yes [id number] TAKE 1 [facility] mcg 4-08 TABLET BY ity o f tablet 00:00: MOUTH [place] 00 EVERY [facility] M[facility] WITH 100MCG TABLET LEVOTHYROXI 2021-0 Yes [id number] TAKE 1 [facility] mcg 4-08 TABLET BY ity o f tablet 00:00: MOUTH [place] 00 EVERY [facility] M[facility] WITH 100MCG TABLET LEVOTHYROXI 2021-0 Yes [id number] TAKE 1 [facility] mcg 4-08 TABLET BY ity o f tablet 00:00: MOUTH [place] 00 EVERY [facility] M[facility] WITH 100MCG TABLET LEVOTHYROXI 2021-0 Yes [id number] TAKE 1 [facility] mcg 4-08 TABLET BY ity o f tablet 00:00: MOUTH [place] 00 EVERY [facility] M[facility] WITH 100MCG TABLET LEVOTHYROXI 2021-0 Yes [id number] TAKE 1 [facility] mcg 4-08 TABLET BY ity o f tablet 00:00: MOUTH [place] 00 EVERY [facility] MORN[facility] WITH 100MCG TABLET LEVOTHYROXI 2021-0 Yes [id number] TAKE 1 [facility] mcg 4-08 TABLET BY ity o f tablet 00:00: MOUTH [place] 00 EVERY [facility] MORN[facility] WITH 100MCG TABLET LEVOTHYROXI 2021-0 Yes [id number] TAKE 1 [facility] mcg 4-08 TABLET BY ity o f tablet 00:00: MOUTH [place] 00 EVERY [facility] MORN[facility] WITH 100MCG TABLET LEVOTHYROXI 2021-0 Yes [id number] TAKE 1 [facility] mcg 4-08 TABLET BY ity o f tablet 00:00: MOUTH [place] 00 EVERY [facility] MORN[facility] WITH 100MCG TABLET LEVOTHYROXI 2021-0 Yes [id number] TAKE 1 [facility]cg 4-08 TABLET BY ity o f tablet 00:00: MOUTH [place] 00 EVERY [facility] MORN[facility] WITH 100MCG TABLET LEVOTHYROXI 2021-0 Yes [id number] TAKE 1 [facility] mcg 4-08 TABLET BY ity o f tablet 00:00: MOUTH [place] 00 EVERY [facility] MORN[facility] WITH 100MCG TABLET LEVOTHYROXI 2021-0 Yes [id number] TAKE 1 [facility] mcg 4-08 TABLET BY ity o f tablet 00:00: MOUTH [place] 00 EVERY [facility] MORN[facility] WITH 100MCG TABLET LEVOTHYROXI 2021-0 Yes [id number] TAKE 1 [facility] mcg 4-08 TABLET BY ity o f tablet 00:00: MOUTH [place] 00 EVERY [facility] MORN[facility] WITH 100MCG TABLET LEVOTHYROXI 2021-0 Yes [id number] TAKE 1 [facility] mcg 4-08 TABLET BY ity o f tablet 00:00: MOUTH [place] 00 EVERY [facility] MORN[facility] WITH 100MCG TABLET LEVOTHYROXI 2021-0 Yes [id number] TAKE 1 [facility] mcg 4-08 TABLET BY ity o f tablet 00:00: MOUTH [place] 00 EVERY [facility] MORN[facility] WITH 100MCG TABLET LEVOTHYROXI 2021-0 Yes [id number] TAKE 1 [facility] mcg 4-08 TABLET BY ity o f tablet 00:00: MOUTH [place] 00 EVERY [facility] MORN[facility] WITH 100MCG TABLET LEVOTHYROXI 2021-0 Yes [id number] TAKE 1 [facility] mcg 4-08 TABLET BY ity o f tablet 00:00: MOUTH [place] 00 EVERY [facility] MORN[facility] WITH 100MCG TABLET LEVOTHYROXI 2021-0 Yes [id number] TAKE 1 [facility] mcg 4-08 TABLET BY ity o f tablet 00:00: MOUTH [place] 00 EVERY [facility] MORN[facility] WITH 100MCG TABLET LEVOTHYROXI 2021-0 Yes [id number] TAKE 1 [facility] mcg 4-08 TABLET BY ity o f tablet 00:00: MOUTH [place] 00 EVERY [facility] MORN[facility] WITH 100MCG TABLET LEVOTHYROXI 2021-0 Yes [id number] TAKE 1 [facility] mcg 4-08 TABLET BY ity o f tablet 00:00: MOUTH [place] 00 EVERY [facility] MORN[facility] WITH 100MCG TABLET LEVOTHYROXI 2021-0 Yes [id number] TAKE 1 [facility] mcg 4-08 TABLET BY ity o f tablet 00:00: MOUTH [place] 00 EVERY [facility] MORN[facility] WITH 100MCG TABLET LEVOTHYROXI 2021-0 Yes [id number] TAKE 1 [facility] mcg 4-08 TABLET BY ity o f tablet 00:00: MOUTH [place] 00 EVERY [facility] MORN[facility] WITH 100MCG TABLET LEVOTHYROXI 2021-0 Yes [id number] TAKE 1 [facility] mcg 4-08 TABLET BY ity o f tablet 00:00: MOUTH [place] 00 EVERY [facility] MORN[facility] WITH 100MCG TABLET LEVOTHYROXI 2021-0 Yes [id number] TAKE 1 [facility] m[facility] 4-08 TABLET BY ity o f tablet 00:00: MOUTH [place] 00 EVERY [facility] MORN[facility] WITH 100MCG TABLET LEVOTHYROXI 2021-0 Yes [id number] TAKE 1 [facility] mcg 4-08 TABLET BY ity o f tablet 00:00: MOUTH [place] 00 EVERY [facility] MORN[facility] WITH 100MCG TABLET LEVOTHYROXI 2021-0 Yes [id number] TAKE 1 [facility] mcg 4-08 TABLET BY ity o f tablet 00:00: MOUTH [place] 00 EVERY [facility] MORN[facility] WITH 100MCG TABLET LEVOTHYROXI 2021-0 Yes [id number] TAKE 1 [facility] mcg 4-08 TABLET BY ity o f tablet 00:00: MOUTH [place] 00 EVERY [facility] MORN[facility] WITH 100MCG TABLET LEVOTHYROXI 2021-0 Yes [id number] TAKE 1 [facility] mcg 4-08 TABLET BY ity o f tablet 00:00: MOUTH [place] 00 EVERY [facility] MORN[facility] WITH 100MCG TABLET LEVOTHYROXI 2021-0 Yes [id number] TAKE 1 [facility] mcg 4-08 TABLET BY ity o f tablet 00:00: MOUTH [place] 00 EVERY [facility] MORN[facility] WITH 100MCG TABLET LEVOTHYROXI 2021-0 Yes [id number] TAKE 1 [facility] mcg 4-08 TABLET BY ity o f tablet 00:00: MOUTH [place] 00 EVERY [facility] MORN[facility] WITH 100MCG TABLET LEVOTHYROXI 2021-0 Yes [id number] TAKE 1 [facility] mcg 4-08 TABLET BY ity o f tablet 00:00: MOUTH [place] 00 EVERY [facility] MORN[facility] WITH 100MCG TABLET LEVOTHYROXI 2021-0 Yes [id number] TAKE 1 [facility] mcg 4-08 TABLET BY ity o f tablet 00:00: MOUTH [place] 00 EVERY [facility] MORN[facility] WITH 100MCG TABLET LEVOTHYROXI 2021-0 Yes [id number] TAKE 1 [facility] mcg 4-08 TABLET BY ity o f tablet 00:00: MOUTH [place] 00 EVERY [facility] MORN[facility] WITH 100MCG TABLET LEVOTHYROXI 2021-0 Yes [id number] TAKE 1 [facility] mcg 4-08 TABLET BY ity o f tablet 00:00: MOUTH [place] 00 EVERY [facility] MORN[facility] WITH 100MCG TABLET LEVOTHYROXI 2021-0 Yes [id number] TAKE 1 [facility] mcg 4-08 TABLET BY ity o f tablet 00:00: MOUTH [place] 00 EVERY [facility] MORN[facility] WITH 100MCG TABLET LEVOTHYROXI 2021-0 Yes [id number] TAKE 1 [facility] mcg 4-08 TABLET BY ity o f tablet 00:00: MOUTH [place] 00 EVERY [facility] MORN[facility] WITH 100MCG TABLET LEVOTHYROXI 2021-0 Yes [id number] TAKE 1 [facility] mcg 4-08 TABLET BY ity o f tablet 00:00: MOUTH [place] 00 EVERY [facility] MORN[facility] WITH 100MCG TABLET LEVOTHYROXI 2021-0 Yes [id number] TAKE 1 [facility] [place] 88 [facility] 4-08 TABLET BY ity o f tablet 00:00: MOUTH [place] 00 EVERY [facility] MORN[facility] WITH 100MCG TABLET LEVOTHYROXI 2021-0 Yes [id number] TAKE 1 [facility] [place] [facility] 4-08 TABLET BY ity o f tablet 00:00: MOUTH [place] 00 EVERY [facility] MORN[facility] WITH 100MCG TABLET LEVOTHYROXI 2021-0 Yes [id number] TAKE 1 [facility] [place] [facility] 4-08 TABLET BY ity o f tablet 00:00: MOUTH [place] 00 EVERY [facility] MORN[facility] WITH 100MCG TABLET LEVOTHYROXI 2021-0 Yes [id number] TAKE 1 [facility] 4-08 TABLET BY ity o f tablet 00:00: MOUTH [place] 00 EVERY [facility] MORN[facility] WITH 100MCG TABLET LEVOTHYROXI 2021-0 Yes [id number] TAKE 1 [facility] [place] [facility] 4-08 TABLET BY ity o f tablet 00:00: MOUTH 00 [facility] WITH 100MCG TABLET LEVOTHYROXI 2021-0 Yes [id number] [facility]KE 1 [facility] 4-08 TABLET BY ity o f tablet 00:00: MOUTH 00 [facility] WITH 100MCG TABLET LEVOTHYROXI 2021-0 Yes [id number] TAKE 1 [facility] 4-08 TABLET BY ity o f tablet 00:00: MOUTH 00 EVERY [facility] WITH 100MCG TABLET LEVOTHYROXI 2021-0 Yes [id number] TAKE 1 [facility] 4-08 TABLET BY ity o f tablet 00:00: MOUTH 00 EVERY [facility] WITH 100MCG TABLET LEVOTHYROXI 2021-0 Yes [id number] TAKE 1 [facility] 4-08 TABLET BY ity o f tablet 00:00: MOUTH [place] 00 EVERY [facility] WITH 100MCG TABLET LEVOTHYROXI 2021-0 Yes [id number] TAKE 1 [facility] 4-08 TABLET BY ity o f tablet 00:00: MOUTH [place] 00 EVERY [facility] WITH 100MCG TABLET LEVOTHYROXI 2021-0 Yes [id number] TAKE 1 [facility] 4-08 TABLET BY ity o f tablet 00:00: MOUTH [place] 00 EVERY [facility] WITH 100MCG TABLET LEVOTHYROXI 2021-0 Yes [id number] TAKE 1 [facility] 4-08 TABLET BY ity o f tablet 00:00: MOUTH [place] 00 EVERY [facility] WITH 100MCG TABLET LEVOTHYROXI 2021-0 Yes [id number] TAKE 1 [facility] m[facility] 4-08 TABLET BY ity o f tablet 00:00: MOUTH [place] 00 EVERY [facility] WITH 100MCG TABLET LEVOTHYROXI 2021-0 Yes [id number] TAKE 1 [facility] m[facility] 4-08 TABLET BY ity o f tablet 00:00: MOUTH [place] 00 EVERY [facility] WITH 100MCG TABLET LEVOTHYROXI 2021-0 Yes [id number] TAKE 1 [facility] 4-08 TABLET BY ity o f tablet 00:00: MOUTH [place] 00 EVERY [facility] WITH 100MCG TABLET LEVOTHYROXI 2021-0 Yes [id number] TAKE 1 [facility] m[facility] 4-08 TABLET BY ity o f tablet 00:00: MOUTH [place] 00 EVERY [facility] WITH 100MCG TABLET LEVOTHYROXI 2021-0 Yes [id number] TAKE 1 [facility] m[facility] 4-08 TABLET BY ity o f tablet 00:00: MOUTH 00 EVERY [facility] WITH 100MCG TABLET LEVOTHYROXI 2021-0 Yes [id number] TAKE 1 [facility] m[facility] 4-08 TABLET BY ity o f tablet 00:00: MOUTH 00 EVERY [facility] WITH 100MCG TABLET LEVOTHYROXI 2021-0 Yes [id number] TAKE 1 [facility] 4-08 TABLET BY ity o f tablet 00:00: MOUTH 00 EVERY [facility] WITH 100MCG TABLET LEVOTHYROXI 2021-0 Yes [id number] TAKE 1 [facility] 4-08 TABLET BY ity o f tablet 00:00: MOUTH [place] 00 EVERY [facility] WITH 100MCG TABLET LEVOTHYROXI 2021-0 Yes [id number] TAKE 1 [facility] 4-08 TABLET BY ity o f tablet 00:00: MOUTH [place] 00 EVERY [facility] WITH 100MCG TABLET LEVOTHYROXI 2021-0 Yes [id number] TAKE 1 [facility] 4-08 TABLET BY ity o f tablet 00:00: MOUTH [place] 00 EVERY [facility] WITH 100MCG TABLET LEVOTHYROXI 2021-0 Yes [id number] TAKE 1 [facility] m[facility] 4-08 TABLET BY ity o f tablet 00:00: MOUTH [place] 00 EVERY [facility] WITH 100MCG TABLET LEVOTHYROXI 2021-0 Yes [id number] TAKE 1 [facility] m[facility] 4-08 TABLET BY ity o f tablet 00:00: MOUTH 00 EVERY [facility] WITH 100MCG TABLET LEVOTHYROXI 2021-0 Yes [id number] TAKE 1 [facility] m[facility] 4-08 TABLET BY ity o f tablet 00:00: MOUTH 00 EVERY [facility] WITH 100MCG TABLET LEVOTHYROXI 2021-0 Yes [id number] TAKE 1 [facility] m[facility] 4-08 TABLET BY ity o f tablet 00:00: MOUTH 00 EVERY [facility] WITH 100MCG TABLET LEVOTHYROXI 2021-0 Yes [id number] TAKE 1 [facility] 4-08 TABLET BY ity o f tablet 00:00: MOUTH 00 EVERY [facility] WITH 100MCG TABLET LEVOTHYROXI 2021-0 Yes [id number] TAKE 1 [facility] 4-08 TABLET BY ity o f tablet 00:00: [facility] 00 EVERY [facility] MORNING [facility] WITH 100MCG TABLET LEVOTHYROXI 2021-0 Yes [id number] TAKE 1 [facility] 4-08 TABLET BY ity o f tablet 00:00: MOUTH 00 EVERY [facility] WITH 100MCG TABLET LEVOTHYROXI 2021-0 Yes [id number] TAKE 1 [facility] m[facility] 4-08 TABLET BY ity o f tablet 00:00: MOUTH 00 EVERY [facility] WITH 100MCG TABLET LEVOTHYROXI 2021-0 Yes [id number] TAKE 1 [facility] 4-08 TABLET BY ity o f tablet 00:00: [facility] 00 EVERY [facility] MORNING [facility] WITH 100MCG TABLET LEVOTHYROXI 2021-0 Yes [id number] TAKE 1 [facility] 4-08 TABLET BY ity o f tablet 00:00: MOUTH 00 EVERY [facility] WITH 100MCG TABLET LEVOTHYROXI 2021-0 Yes [id number] TAKE 1 [facility] 4-08 TABLET BY ity o f tablet 00:00: [facility] 00 EVERY [facility] MORNING [facility] WITH 100MCG TABLET LEVOTHYROXI 2021-0 Yes [id number] TAKE 1 [facility] 4-08 TABLET BY ity o f tablet 00:00: [facility] 00 EVERY [facility] MORNING [facility] WITH 100MCG TABLET LEVOTHYROXI 2021-0 Yes [id number] TAKE 1 [facility] 4-08 TABLET BY ity o f tablet 00:00: MOUTH [place] 00 EVERY [facility]ORN[facility] WITH 100MCG TABLET LEVOTHYROXI 2021-0 Yes [id number] TAKE 1 [facility] m[facility] 4-08 TABLET BY ity o f tablet 00:00: MOUTH [place] 00 EVERY [facility] WITH 100MCG TABLET LEVOTHYROXI 2021-0 Yes [id number] TAKE 1 [facility] m[facility] 4-08 TABLET BY ity o f tablet 00:00: MOUTH [place] 00 EVERY [facility] WITH 100MCG TABLET LEVOTHYROXI 2021-0 Yes [id number] TAKE 1 [facility] m[facility] 4-08 TABLET BY ity o f tablet 00:00: MOUTH [place] 00 EVERY [facility] WITH 100MCG TABLET LEVOTHYROXI 2021-0 Yes [id number] TAKE 1 [facility] m[facility] 4-08 TABLET BY ity o f tablet 00:00: MOUTH 00 EVERY [facility] WITH 100MCG TABLET LEVOTHYROXI 2021-0 Yes [id number] TAKE 1 [facility] m[facility] 4-08 TABLET BY ity o f tablet 00:00: MOUTH [place] 00 EVERY [facility] WITH 100MCG TABLET LEVOTHYROXI 2021-0 Yes [id number] TAKE 1 [facility] m[facility] 4-08 TABLET BY ity o f tablet 00:00: MOUTH [place] 00 EVERY [facility] WITH 100MCG TABLET LEVOTHYROXI 2021-0 Yes [id number] TAKE 1 [facility] m[facility] 4-08 TABLET BY ity o f tablet 00:00: MOUTH [place] 00 EVERY [facility] WITH 100MCG TABLET LEVOTHYROXI 2021-0 Yes [id number] TAKE 1 [facility] m[facility] 4-08 TABLET BY ity o f tablet 00:00: MOUTH [place] 00 EVERY [facility] WITH 100MCG TABLET LEVOTHYROXI 2021-0 Yes [id number] TAKE 1 [facility] m[facility] 4-08 TABLET BY ity o f tablet 00:00: MOUTH [place] 00 EVERY [facility] WITH 100MCG TABLET LEVOTHYROXI 2021-0 Yes [id number] TAKE 1 [facility] m[facility] 4-08 TABLET BY ity o f tablet 00:00: MOUTH [place] 00 EVERY [facility] WITH 100MCG TABLET LEVOTHYROXI 2021-0 Yes [id number] TAKE 1 [facility] m[facility] 4-08 TABLET BY ity o f tablet 00:00: MOUTH [place] 00 EVERY [facility] WITH 100MCG TABLET LEVOTHYROXI 2021-0 Yes [id number] TAKE 1 [facility] m[facility] 4-08 TABLET BY ity o f tablet 00:00: MOUTH [place] 00 EVERY [facility] WITH 100MCG TABLET LEVOTHYROXI 2021-0 Yes [id number] TAKE 1 [facility] m[facility] 4-08 TABLET BY ity o f tablet 00:00: MOUTH [place] 00 EVERY [facility] WITH 100MCG TABLET LEVOTHYROXI 2021-0 Yes [id number] TAKE 1 [facility] m[facility] 4-08 TABLET BY ity o f tablet 00:00: MOUTH [place] 00 EVERY [facility] WITH 100MCG TABLET LEVOTHYROXI 2021-0 Yes [id number] TAKE 1 [facility] m[facility] 4-08 TABLET BY ity o f tablet 00:00: MOUTH [place] 00 EVERY [facility] WITH 100MCG TABLET LEVOTHYROXI 2021-0 Yes [id number] TAKE 1 [facility] m[facility] 4-08 TABLET BY ity o f tablet 00:00: MOUTH [place] 00 EVERY [facility] WITH 100MCG TABLET LEVOTHYROXI 2021-0 Yes [id number] TAKE 1 [facility] m[facility] 4-08 TABLET BY ity o f tablet 00:00: MOUTH [place] 00 EVERY [facility] WITH 100MCG TABLET LEVOTHYROXI 2021-0 Yes [id number] TAKE 1 [facility] m[facility] 4-08 TABLET BY ity o f tablet 00:00: MOUTH [place] 00 EVERY [facility] WITH 100MCG TABLET LEVOTHYROXI 2021-0 Yes [id number] TAKE 1 [facility] m[facility] 4-08 TABLET BY ity o f tablet 00:00: MOUTH [place] 00 EVERY [facility] WITH 100MCG TABLET LEVOTHYROXI 2021-0 Yes [id number] TAKE 1 [facility] m[facility] 4-08 TABLET BY ity o f tablet 00:00: MOUTH [place] 00 EVERY [facility] WITH 100MCG TABLET LEVOTHYROXI 2021-0 Yes [id number] TAKE 1 [facility] m[facility] 4-08 TABLET BY ity o f tablet 00:00: MOUTH [place] 00 EVERY [facility] WITH 100MCG TABLET LEVOTHYROXI 2021-0 Yes [id number] TAKE 1 [facility] m[facility] 4-08 TABLET BY ity o f tablet 00:00: MOUTH [place] 00 EVERY [facility] WITH 100MCG TABLET LEVOTHYROXI 2021-0 Yes [id number] TAKE 1 [facility] m[facility] 4-08 TABLET BY ity o f tablet 00:00: MOUTH [place] 00 EVERY [facility] WITH 100MCG TABLET LEVOTHYROXI 2021-0 Yes [id number] TAKE 1 [facility] m[facility] 4-08 TABLET BY ity o f tablet 00:00: MOUTH [place] 00 EVERY [facility] WITH 100MCG TABLET LEVOTHYROXI 2021-0 Yes [id number] TAKE 1 [facility] m[facility] 4-08 TABLET BY ity o f tablet 00:00: MOUTH [place] 00 EVERY [facility] WITH 100MCG TABLET LEVOTHYROXI 2021-0 Yes [id number] TAKE 1 [facility] m[facility] 4-08 TABLET BY ity o f tablet 00:00: MOUTH [place] 00 EVERY [facility] WITH 100MCG TABLET LEVOTHYROXI 2021-0 Yes [id number] TAKE 1 [facility] m[facility] 4-08 TABLET BY ity o f tablet 00:00: MOUTH [place] 00 EVERY [facility] WITH 100MCG TABLET LEVOTHYROXI 2021-0 Yes [id number] TAKE 1 [facility] m[facility] 4-08 TABLET BY ity o f tablet 00:00: MOUTH [place] 00 EVERY [facility] WITH 100MCG TABLET LEVOTHYROXI 2021-0 Yes [id number] TAKE 1 [facility] m[facility] 4-08 TABLET BY ity o f tablet 00:00: MOUTH [place] 00 EVERY [facility] WITH 100MCG TABLET LEVOTHYROXI 2021-0 Yes [id number] TAKE 1 [facility] m[facility] 4-08 TABLET BY ity o f tablet 00:00: MOUTH [place] 00 EVERY [facility] WITH 100MCG TABLET LEVOTHYROXI 2021-0 Yes [id number] TAKE 1 [facility] 88 m[facility] 4-08 TABLET BY ity o f tablet 00:00: MOUTH [place] 00 EVERY [facility]ORN[facility] WITH 100MCG TABLET LEVOTHYROXI 2021-0 Yes [id number] TAKE 1 [facility] 88 m[facility] 4-08 TABLET BY ity o f tablet 00:00: MOUTH [place] 00 EVERY [facility]ORN[facility] WITH 100MCG TABLET LEVOTHYROXI 2021-0 Yes [id number] TAKE 1 [facility] 88 m[facility] 4-08 TABLET BY ity o f tablet 00:00: MOUTH [place] 00 EVERY [facility] WITH 100MCG TABLET LEVOTHYROXI 2021-0 Yes [id number] TAKE 1 [facility] m[facility] 4-08 TABLET BY ity o f tablet 00:00: MOUTH [place] 00 EVERY [facility] WITH 100MCG TABLET LEVOTHYROXI 2021-0 Yes [id number] TAKE 1 [facility] m[facility] 4-08 TABLET BY ity o f tablet 00:00: MOUTH [place] 00 EVERY [facility] WITH 100MCG TABLET LEVOTHYROXI 2021-0 Yes [id number] TAKE 1 [facility] 88 m[facility] 4-08 TABLET BY ity o f tablet 00:00: MOUTH [place] 00 EVERY [facility] WITH 100MCG TABLET LEVOTHYROXI 2021-0 Yes [id number] TAKE 1 [facility] 88 m[facility] 4-08 TABLET BY ity o f tablet 00:00: MOUTH [place] 00 EVERY [facility] WITH 100MCG TABLET LEVOTHYROXI 2021-0 Yes [id number] TAKE 1 [facility] 88 m[facility] 4-08 TABLET BY ity o f tablet 00:00: MOUTH [place] 00 EVERY [facility] WITH 100MCG TABLET LEVOTHYROXI 2021-0 Yes [id number] TAKE 1 [facility] 88 m[facility] 4-08 TABLET BY ity o f tablet 00:00: MOUTH [place] 00 EVERY [facility] WITH 100MCG TABLET LEVOTHYROXI 2021-0 Yes [id number] TAKE 1 [facility] 88 m[facility] 4-08 TABLET BY ity o f tablet 00:00: MOUTH [place] 00 EVERY [facility] WITH 100MCG TABLET LEVOTHYROXI 2021-0 Yes [id number] TAKE 1 [facility] 88 m[facility] 4-08 TABLET BY ity o f tablet 00:00: MOUTH [place] 00 EVERY [facility] WITH 100MCG TABLET LEVOTHYROXI 2021-0 Yes [id number] TAKE 1 [facility] 88 m[facility] 4-08 TABLET BY ity o f tablet 00:00: MOUTH [place] 00 EVERY [facility] WITH 100MCG TABLET LEVOTHYROXI 2021-0 Yes [id number] TAKE 1 [facility] m[facility] 4-08 TABLET BY ity o f tablet 00:00: MOUTH [place] 00 EVERY [facility] WITH 100MCG TABLET LEVOTHYROXI 2021-0 Yes [id number] TAKE 1 [facility] 88 m[facility] 4-08 TABLET BY ity o f tablet 00:00: MOUTH [place] 00 EVERY [facility] WITH 100MCG TABLET LEVOTHYROXI 2021-0 Yes [id number] TAKE 1 [facility] m[facility] 4-08 TABLET BY ity o f tablet 00:00: MOUTH [place] 00 EVERY [facility] WITH 100MCG TABLET LEVOTHYROXI 2021-0 Yes [id number] TAKE 1 [facility] m[facility] 4-08 TABLET BY ity o f tablet 00:00: MOUTH [place] 00 EVERY [facility] WITH 100MCG TABLET LEVOTHYROXI 2021-0 Yes [id number] TAKE 1 [facility] 88 m[facility] 4-08 TABLET BY ity o f tablet 00:00: MOUTH [place] 00 EVERY [facility] WITH 100MCG TABLET LEVOTHYROXI 2021-0 Yes [id number] TAKE 1 [facility] m[facility] 4-08 TABLET BY ity o f tablet 00:00: MOUTH [place] 00 EVERY [facility] WITH 100MCG TABLET LEVOTHYROXI 2021-0 Yes [id number] TAKE 1 [facility] m[facility] 4-08 TABLET BY ity o f tablet 00:00: MOUTH [place] 00 EVERY [facility] WITH 100MCG TABLET LEVOTHYROXI 2021-0 Yes [id number] TAKE 1 [facility] 88 m[facility] 4-08 TABLET BY ity o f tablet 00:00: MOUTH [place] 00 EVERY [facility] WITH 100MCG TABLET LEVOTHYROXI 2021-0 Yes [id number] TAKE 1 [facility] 88 m[facility] 4-08 TABLET BY ity o f tablet 00:00: MOUTH [place] 00 EVERY [facility] WITH 100MCG TABLET LEVOTHYROXI 2021-0 Yes [id number] TAKE 1 [facility] 88 m[facility] 4-08 TABLET BY ity o f tablet 00:00: MOUTH [place] 00 EVERY [facility] WITH 100MCG TABLET LEVOTHYROXI 2021-0 Yes [id number] TAKE 1 [facility] 88 m[facility] 4-08 TABLET BY ity o f tablet 00:00: MOUTH [place] 00 EVERY [facility] WITH 100MCG TABLET LEVOTHYROXI 2021-0 Yes [id number] TAKE 1 [facility] m[facility] 4-08 TABLET BY ity o f tablet 00:00: MOUTH [place] 00 EVERY [facility] WITH 100MCG TABLET LEVOTHYROXI 2021-0 Yes [id number] TAKE 1 [facility] m[facility] 4-08 TABLET BY ity o f tablet 00:00: MOUTH [place] 00 EVERY [facility] WITH 100MCG TABLET LEVOTHYROXI 2021-0 Yes [id number] TAKE 1 [facility] m[facility] 4-08 TABLET BY ity o f tablet 00:00: MOUTH [place] 00 EVERY [facility] M[facility] WITH 100MCG TABLET LEVOTHYROXI 2021-0 Yes [id number] TAKE 1 [facility] m[facility] 4-08 TABLET BY ity o f tablet 00:00: MOUTH [place] 00 EVERY [facility] M[facility] WITH 100MCG TABLET LEVOTHYROXI 2021-0 Yes [id number] TAKE 1 [facility] 88 m[facility] 4-08 TABLET BY ity o f tablet 00:00: MOUTH [place] 00 EVERY [facility] M[facility] WITH 100MCG TABLET LEVOTHYROXI 2021-0 Yes [id number] TAKE 1 [facility] m[facility] 4-08 TABLET BY ity o f tablet 00:00: MOUTH [place] 00 EVERY [facility] WITH 100MCG TABLET LEVOTHYROXI 2021-0 Yes [id number] TAKE 1 [facility] m[facility] 4-08 TABLET BY ity o f tablet 00:00: MOUTH [place] 00 EVERY [facility] WITH 100MCG TABLET LEVOTHYROXI 2021-0 Yes [id number] TAKE 1 [facility] mcg 4-08 TABLET BY ity o f tablet 00:00: MOUTH [place] 00 EVERY [facility] WITH 100MCG TABLET LEVOTHYROXI 2021-0 Yes [id number] TAKE 1 [facility] m[facility] 4-08 TABLET BY ity o f tablet 00:00: MOUTH [place] 00 EVERY [facility] M[facility] WITH 100MCG TABLET LEVOTHYROXI 2021-0 Yes [id number] TAKE 1 [facility] 88 mcg 4-08 TABLET BY ity o f tablet 00:00: MOUTH [place] 00 EVERY [facility] M[facility] WITH 100MCG TABLET LEVOTHYROXI 2021-0 Yes [id number] TAKE 1 [facility] m[facility] 4-08 TABLET BY ity o f tablet 00:00: MOUTH [place] 00 EVERY [facility] WITH 100MCG TABLET LEVOTHYROXI 2021-0 Yes [id number] TAKE 1 [facility] m[facility] 4-08 TABLET BY ity o f tablet 00:00: MOUTH [place] 00 EVERY [facility] WITH 100MCG TABLET LEVOTHYROXI 2021-0 Yes [id number] TAKE 1 [facility] m[facility] 4-08 TABLET BY ity o f tablet 00:00: MOUTH [place] 00 EVERY [facility] WITH 100MCG TABLET LEVOTHYROXI 2021-0 Yes [id number] TAKE 1 [facility] m[facility] 4-08 TABLET BY ity o f tablet 00:00: MOUTH [place] 00 EVERY [facility] WITH 100MCG TABLET LEVOTHYROXI 2021-0 Yes [id number] TAKE 1 [facility] mcg 4-08 TABLET BY ity o f tablet 00:00: MOUTH [place] 00 EVERY [facility] WITH 100MCG TABLET LEVOTHYROXI 2021-0 Yes [id number] TAKE 1 [facility] m[facility] 4-08 TABLET BY ity o f tablet 00:00: MOUTH [place] 00 EVERY [facility] WITH 100MCG TABLET LEVOTHYROXI 2021-0 Yes [id number] TAKE 1 [facility] m[facility] 4-08 TABLET BY ity o f tablet 00:00: MOUTH 00 EVERY [facility] WITH 100MCG TABLET LEVOTHYROXI 2021-0 Yes [id number] TAKE 1 [facility] m[facility] 4-08 TABLET BY ity o f tablet 00:00: MOUTH 00 EVERY [facility] WITH 100MCG TABLET LEVOTHYROXI 2021-0 Yes [id number] TAKE 1 [facility] m[facility] 4-08 TABLET BY ity o f tablet 00:00: MOUTH 00 EVERY [facility] WITH 100MCG TABLET LEVOTHYROXI 2021-0 Yes [id number] TAKE 1 [facility] m[facility] 4-08 TABLET BY ity o f tablet 00:00: MOUTH 00 EVERY [facility] WITH 100MCG TABLET LEVOTHYROXI 2021-0 Yes [id number] TAKE 1 [facility] m[facility] 4-08 TABLET BY ity o f tablet 00:00: MOUTH [place] 00 EVERY [facility] WITH 100MCG TABLET LEVOTHYROXI 2021-0 Yes [id number] TAKE 1 [facility] mcg 4-08 TABLET BY ity o f tablet 00:00: MOUTH [place] 00 EVERY [facility] WITH 100MCG TABLET LEVOTHYROXI 2021-0 Yes [id number] TAKE 1 [facility] m[facility] 4-08 TABLET BY ity o f tablet 00:00: MOUTH [place] 00 EVERY [facility] M[facility] WITH 100MCG TABLET LEVOTHYROXI 2021-0 Yes [id number] TAKE 1 [facility] m[facility] 4-08 TABLET BY ity o f tablet 00:00: MOUTH [place] 00 EVERY [facility] WITH 100MCG TABLET LEVOTHYROXI 2021-0 Yes [id number] TAKE 1 [facility] m[facility] 4-08 TABLET BY ity o f tablet 00:00: MOUTH [place] 00 EVERY [facility] WITH 100MCG TABLET LEVOTHYROXI 2021-0 Yes [id number] TAKE 1 [facility] m[facility] 4-08 TABLET BY ity o f tablet 00:00: MOUTH [place] 00 EVERY [facility] WITH 100MCG TABLET LEVOTHYROXI 2021-0 Yes [id number] TAKE 1 [facility] 4-08 TABLET BY ity o f tablet 00:00: MOUTH [place] 00 EVERY [facility] M[facility] WITH 100MCG TABLET LEVOTHYROXI 2021-0 Yes [id number] TAKE 1 [facility] mcg 4-08 TABLET BY ity o f tablet 00:00: MOUTH [place] 00 EVERY [facility] MORN[facility] WITH 100MCG TABLET LEVOTHYROXI 2021-0 Yes [id number] TAKE 1 [facility] m[facility] 4-08 TABLET BY ity o f tablet 00:00: MOUTH 00 EVERY [facility] WITH 100MCG TABLET LEVOTHYROXI 2021-0 Yes [id number] TAKE 1 [facility] m[facility] 4-08 TABLET BY ity o f tablet 00:00: MOUTH 00 EVERY [facility] M[facility] WITH 100MCG TABLET LEVOTHYROXI 2021-0 Yes [id number] TAKE 1 [facility] m[facility] 4-08 TABLET BY ity o f tablet 00:00: MOUTH 00 EVERY [facility] MORN[facility] WITH 100MCG TABLET LEVOTHYROXI 2021-0 Yes [id number] TAKE 1 [facility] m[facility] 4-08 TABLET BY ity o f tablet 00:00: MOUTH [place] 00 EVERY [facility] MORN[facility] WITH 100MCG TABLET LEVOTHYROXI 2021-0 Yes [id number] TAKE 1 [facility] m[facility] 4-08 TABLET BY ity o f tablet 00:00: MOUTH [place] 00 EVERY [facility] MORN[facility] WITH 100MCG TABLET LEVOTHYROXI 2021-0 Yes [id number] TAKE 1 [facility] m[facility] 4-08 TABLET BY ity o f tablet 00:00: MOUTH [place] 00 EVERY [facility] MORN[facility] WITH 100MCG TABLET LEVOTHYROXI 2021-0 Yes [id number] TAKE 1 [facility] m[facility] 4-08 TABLET BY ity o f tablet 00:00: MOUTH [place] 00 EVERY [facility] MORN[facility] WITH 100MCG TABLET LEVOTHYROXI 2021-0 Yes [id number] TAKE 1 [facility] m[facility] 4-08 TABLET BY ity o f tablet 00:00: MOUTH 00 EVERY [facility] MORN[facility] WITH 100MCG TABLET LEVOTHYROXI 2021-0 Yes [id number] TAKE 1 [facility] m[facility] 4-08 TABLET BY ity o f tablet 00:00: MOUTH 00 EVERY [facility] MORN[facility] WITH 100MCG TABLET LEVOTHYROXI 2021-0 Yes [id number] TAKE 1 [facility] m[facility] 4-08 TABLET BY ity o f tablet 00:00: MOUTH 00 EVERY [facility] MORN[facility] WITH 100MCG TABLET LEVOTHYROXI 2021-0 Yes [id number] TAKE 1 [facility] m[facility] 4-08 TABLET BY ity o f tablet 00:00: MOUTH 00 EVERY [facility] MORN[facility] WITH 100MCG TABLET LEVOTHYROXI 2021-0 Yes [id number] TAKE 1 [facility] 4-08 TABLET BY ity o f tablet 00:00: [facility] 00 EVERY Medical MORNING Branch WITH 100MCG TABLET LEVOTHYROXI 2021-0 Yes [id number] TAKE 1 [facility] 4-08 TABLET BY ity o f tablet 00:00: MOUTH 00 EVERY [facility] MORNING [facility] WITH 100MCG TABLET LEVOTHYROXI 2021-0 Yes [id number] TAKE 1 [facility] m[facility] 4-08 TABLET BY ity o f tablet 00:00: MOUTH 00 EVERY [facility] MORNING [facility] WITH 100MCG TABLET LEVOTHYROXI 2021-0 Yes [id number] TAKE 1 [facility] 4-08 TABLET BY ity o f tablet 00:00: [facility] 00 EVERY Medical MORNING Branch WITH 100MCG TABLET LEVOTHYROXI 2021-0 Yes [id number] TAKE 1 [facility] m[facility] 4-08 TABLET BY ity o f tablet 00:00: MOUTH 00 EVERY [facility] MORNING [facility] WITH 100MCG TABLET LEVOTHYROXI 2021-0 Yes [id number] TAKE 1 [facility] 4-08 TABLET BY ity o f tablet 00:00: [facility] 00 EVERY Medical MORNING Branch WITH 100MCG TABLET LEVOTHYROXI 2021-0 Yes [id number] TAKE 1 [facility] 4-08 TABLET BY ity o f tablet 00:00: [facility] 00 EVERY Medical MORNING Branch WITH 100MCG TABLET LEVOTHYROXI Yes [id number] TAKE 1 [facility] mcg 4-08 TABLET BY ity o f tablet 00:00: MOUTH [place] 00 EVERY [facility] MORNING [facility] WITH 100MCG TABLET LEVOTHYROXI Yes [id number] TAKE 1 [facility] m[facility] 4-08 TABLET BY ity o f tablet 00:00: MOUTH 00 EVERY Medical MORNING [facility] WITH 100MCG TABLET LEVOTHYROXI 3- No [id number] TAKE 1 [facility] mcg 4-08 03-20 TABLET BY ity of tablet 00:00: 00:00 MOUTH [place] 00 :00 EVERY [facility] MORNING [facility] WITH 100MCG TABLET LEVOTHYROXI 2020-0 2022- No [id number] TAKE 1 [facility] mcg 4-08 03-20 TABLET BY ity of tablet 00:00: 00:00 MOUTH [place] 00 :00 EVERY Medical MORNING Branch WITH 100MCG TABLET linaCLOtide Yes [id number] 1{capsu Take 1-2 [facility] (LINZESS) 1-26 le} capsules ity of 72 mcg Cap 00:00: by mouth [place] 00 daily. For Medical constipati Branch on linaCLOtide Yes [id number] 1{capsu Take 1-2 [facility] (LINZESS) 1-26 le} capsules ity of 72 mcg Cap 00:00: by mouth [place] 00 daily. For Medical constipati Branch on linaCLOtide Yes [id number] 1{capsu Take 1-2 [facility] (LINZESS) 1-26 le} capsules ity of 72 mcg Cap 00:00: by mouth [place] 00 daily. For Medical constipati Branch on linaCLOtide Yes [id number] 1{capsu Take 1-2 [facility] (LINZESS) 1-26 le} capsules ity of 72 mcg Cap 00:00: by mouth [place] 00 daily. For Medical constipati Branch on linaCLOtide Yes [id number] 1{capsu Take 1-2 [facility] (LINZESS) 1-26 le} capsules ity of 72 mcg Cap 00:00: by mouth [place] 00 daily. For Medical constipati Branch on linaCLOtide Yes [id number] 1{capsu Take 1-2 [facility] (LINZESS) 1-26 le} capsules ity of 72 mcg Cap 00:00: by mouth [place] 00 daily. For Medical constipati Branch on linaCLOtide Yes [id number] 1{capsu Take 1-2 [facility] (LINZESS) 1-26 le} capsules ity of 72 mcg Cap 00:00: by mouth [place] 00 daily. For Medical constipati Branch on linaCLOtide Yes [id number] 1{capsu Take 1-2 [facility] (LINZESS) 1-26 le} capsules ity of 72 mcg Cap 00:00: by mouth [place] 00 daily. For Medical constipati Branch on linaCLOtide Yes [id number] 1{capsu Take 1-2 [facility] (LINZESS) 1-26 le} capsules ity of 72 mcg Cap 00:00: by mouth [place] 00 daily. For Medical constipati Branch on linaCLOtide Yes [id number] 1{capsu Take 1-2 [facility] (LINZESS) 1-26 le} capsules ity of 72 mcg Cap 00:00: by mouth [place] 00 daily. For Medical constipati Branch on linaCLOtide Yes [id number] 1{capsu Take 1-2 [facility] (LINZESS) 1-26 le} capsules ity of 72 mcg Cap 00:00: by mouth [place] 00 daily. For Medical constipati Branch on linaCLOtide Yes [id number] 1{capsu Take 1-2 [facility] (LINZESS) 1-26 le} capsules ity of 72 mcg Cap 00:00: by mouth [place] 00 daily. For Medical constipati Branch on linaCLOtide Yes [id number] 1{capsu Take 1-2 [facility] (LINZESS) 1-26 le} capsules ity of 72 mcg Cap 00:00: by mouth [place] 00 daily. For Medical constipati Branch on linaCLOtide Yes [id number] 1{capsu Take 1-2 [facility] (LINZESS) 1-26 le} capsules ity of 72 mcg Cap 00:00: by mouth [place] 00 daily. For Medical constipati Branch on linaCLOtide Yes [id number] 1{capsu Take 1-2 [facility] (LINZESS) 1-26 le} capsules ity of 72 mcg Cap 00:00: by mouth [place] 00 daily. For Medical constipati Branch on linaCLOtide Yes [id number] 1{capsu Take 1-2 [facility] (LINZESS) 1-26 le} capsules ity of 72 mcg Cap 00:00: by mouth Ernst as 00 daily. For Medical constipati Branch on linaCLOtide Yes [id number] 1{capsu Take 1-2 [facility] (LINZESS) 1-26 le} capsules ity of 72 mcg Cap 00:00: by mouth Ernst as 00 daily. For Medical constipati Branch on linaCLOtide Yes [id number] 1{capsu Take 1-2 [facility] (LINZESS) 1-26 le} capsules ity of 72 mcg Cap 00:00: by mouth Ernst as 00 daily. For Medical constipati Branch on linaCLOtide Yes [id number] 1{capsu Take 1-2 [facility] 1-[facility] le} capsules ity of 72 mcg Cap 00:00: by mouth [facility] as 00 daily. [facility] on linaCLOtide Yes [id number] 1{capsu Take 1-2 [facility] ([facility] 1-26 le} capsules ity of 72 mcg Cap 00:00: by mouth [facility] as 00 daily. [facility] on linaCLOtide Yes [id number] 1{capsu Take 1-2 [facility] ([facility]) 1-26 le} capsules ity of 72 mcg Cap 00:00: by mouth [facility] as 00 daily. [facility] on linaCLOtide Yes [id number] 1{capsu Take 1-2 [facility] ([facility]) 1-26 le} capsules ity of 72 mcg Cap 00:00: by mouth [facility] as 00 daily. [facility] on linaCLOtide Yes [id number] 1{capsu Take 1-2 [facility] ([facility]) 1-26 le} capsules ity of 72 mcg Cap 00:00: by mouth [facility] as 00 daily. [facility] on linaCLOtide Yes [id number] 1{capsu Take 1-2 [facility] ([facility]) 1-26 le} capsules ity of 72 mcg Cap 00:00: by mouth [facility] as 00 daily. [facility] on linaCLOtide Yes [id number] 1{capsu Take 1-2 [facility] ([facility]) 1-26 le} capsules ity of 72 mcg Cap 00:00: by mouth [facility] as 00 daily. [facility] on linaCLOtide Yes [id number] 1{capsu Take 1-2 [facility] (LIN[facility]) 1-26 le} capsules ity of 72 mcg Cap 00:00: by mouth Ernst as 00 daily. [facility] on linaCLOtide Yes [id number] 1{capsu Take 1-2 [facility] (LIN[facility]) 1-26 le} capsules ity of 72 mcg Cap 00:00: by mouth Ernst as 00 daily. [facility] on linaCLOtide Yes [id number] 1{capsu Take 1-2 [facility] (LINZESS) 1-26 le} capsules ity of 72 mcg Cap 00:00: by mouth Ernst as 00 daily. [facility] on linaCLOtide Yes [id number] 1{capsu Take 1-2 [facility] (LIN[facility]) 1-26 le} capsules ity of 72 mcg Cap 00:00: by mouth Ernst as 00 daily. [facility] on linaCLOtide Yes [id number] 1{capsu Take 1-2 [facility] (LINZ[facility]) 1-26 le} capsules ity of 72 mcg Cap 00:00: by mouth Ernst as 00 daily. [facility] on linaCLOtide Yes [id number] 1{capsu Take 1-2 [facility] (LINZ[facility]) 1-26 le} capsules ity of 72 mcg Cap 00:00: by mouth Ernst as 00 daily. [facility] on linaCLOtide Yes [id number] 1{capsu Take 1-2 [facility] (LINZ[facility]) 1-26 le} capsules ity of 72 mcg Cap 00:00: by mouth Ernst as 00 daily. For [facility] on linaCLOtide Yes [id number] 1{capsu Take 1-2 [facility] (LINZESS) 1-26 le} capsules ity of 72 mcg Cap 00:00: by mouth Ernst as 00 daily. [facility] on linaCLOtide Yes [id number] 1{capsu Take 1-2 [facility] (LINZESS) 1-26 le} capsules ity of 72 mcg Cap 00:00: by mouth [facility] as 00 daily. [facility] on linaCLOtide Yes [id number] 1{capsu Take 1-2 [facility] (LINZESS) 1-26 le} capsules ity of 72 mcg Cap 00:00: by mouth Ernst as 00 daily. [facility] on linaCLOtide Yes [id number] 1{capsu Take 1-2 [facility] (LINZESS) 1-26 le} capsules ity of 72 mcg Cap 00:00: by mouth Ernst as 00 daily. [facility] on linaCLOtide Yes [id number] 1{capsu Take 1-2 [facility] (LINZESS) 1-26 le} capsules ity of 72 mcg Cap 00:00: by mouth Ernst as 00 daily. [facility] on linaCLOtide Yes [id number] 1{capsu Take 1-2 [facility] (LINZESS) 1-26 le} capsules ity of 72 mcg Cap 00:00: by mouth Ernst as 00 daily. [facility] on linaCLOtide Yes [id number] 1{capsu Take 1-2 [facility] (LINZESS) 1-26 le} capsules ity of 72 mcg Cap 00:00: by mouth Ernst as 00 daily. [facility] on linaCLOtide Yes [id number] 1{capsu Take 1-2 [facility] (LINZESS) 1-26 le} capsules ity of 72 mcg Cap 00:00: by mouth Ernst as 00 daily. [facility] on linaCLOtide Yes [id number] 1{capsu Take 1-2 [facility] (LINZESS) 1-26 le} capsules ity of 72 mcg Cap 00:00: by mouth Ernst as 00 daily. [facility] on linaCLOtide Yes [id number] 1{capsu Take 1-2 [facility] (LINZESS) 1-26 le} capsules ity of 72 mcg Cap 00:00: by mouth Ernst as 00 daily. [facility] on linaCLOtide Yes [id number] 1{capsu Take 1-2 [facility] (LINZESS) 1-26 le} capsules ity of 72 mcg Cap 00:00: by mouth Ernst as 00 daily. [facility] on linaCLOtide Yes [id number] 1{capsu Take 1-2 [facility] (LINZESS) 1-26 le} capsules ity of 72 mcg Cap 00:00: by mouth Ernst as 00 daily. [facility] on linaCLOtide Yes [id number] 1{capsu Take 1-2 [facility] (LINZESS) 1-26 le} capsules ity of 72 mcg Cap 00:00: by mouth Ernst as 00 daily. [facility] on linaCLOtide Yes [id number] 1{capsu Take 1-2 [facility] (LINZESS) 1-26 le} capsules ity of 72 mcg Cap 00:00: by mouth Ernst as 00 daily. [facility] on linaCLOtide Yes [id number] 1{capsu Take 1-2 [facility] (LINZESS) 1-26 le} capsules ity of 72 mcg Cap 00:00: by mouth Ernst as 00 daily. [facility] on linaCLOtide Yes [id number] 1{capsu Take 1-2 [facility] (LINZESS) 1-26 le} capsules ity of 72 mcg Cap 00:00: by mouth Ernst as 00 daily. [facility] on linaCLOtide Yes [id number] 1{capsu Take 1-2 [facility] (LINZESS) 1-26 le} capsules ity of 72 mcg Cap 00:00: by mouth Ernst as 00 daily. [facility] on linaCLOtide Yes [id number] 1{capsu Take 1-2 [facility] (LINZESS) 1-26 le} capsules ity of 72 mcg Cap 00:00: by mouth Ernst as 00 daily. [facility] on linaCLOtide Yes [id number] 1{capsu Take 1-2 [facility] (LINZESS) 1-26 le} capsules ity of 72 mcg Cap 00:00: by mouth Ernst as 00 daily. [facility] on linaCLOtide Yes [id number] 1{capsu Take 1-2 [facility] (LINZESS) 1-26 le} capsules ity of 72 mcg Cap 00:00: by mouth Ernst as 00 daily. [facility] on linaCLOtide Yes [id number] 1{capsu Take 1-2 [facility] (LINZESS) 1-26 le} capsules ity of 72 mcg Cap 00:00: by mouth Ernst as 00 daily. [facility] on linaCLOtide Yes [id number] 1{capsu Take 1-2 [facility] (LINZESS) 1-26 le} capsules ity of 72 mcg Cap 00:00: by mouth Ernst as 00 daily. [facility] on linaCLOtide Yes [id number] 1{capsu Take 1-2 [facility] (LINZESS) 1-26 le} capsules ity of 72 mcg Cap 00:00: by mouth Ernst as 00 daily. [facility] on linaCLOtide Yes [id number] 1{capsu Take 1-2 [facility] (LINZESS) 1-26 le} capsules ity of 72 mcg Cap 00:00: by mouth Ernst as 00 daily. [facility] on linaCLOtide Yes [id number] 1{capsu Take 1-2 [facility] (LINZESS) 1-26 le} capsules ity of 72 mcg Cap 00:00: by mouth Ernst as 00 daily. [facility] on linaCLOtide Yes [id number] 1{capsu Take 1-2 [facility] (LINZESS) 1-26 le} capsules ity of 72 mcg Cap 00:00: by mouth Ernst as 00 daily. [facility] on linaCLOtide Yes [id number] 1{capsu Take 1-2 [facility] (LINZ[facility]) 1-26 le} capsules ity of 72 mcg Cap 00:00: by mouth Ernst as 00 daily. [facility] on linaCLOtide Yes [id number] 1{capsu Take 1-2 [facility] (LINZ[facility]) 1-26 le} capsules ity of 72 mcg Cap 00:00: by mouth Ernst as 00 daily. [facility] on linaCLOtide Yes [id number] 1{capsu Take 1-2 [facility] (LINZESS) 1-26 le} capsules ity of 72 mcg Cap 00:00: by mouth [facility] as 00 daily. [facility] on linaCLOtide Yes [id number] 1{capsu Take 1-2 [facility] (LINZESS) 1-26 le} capsules ity of 72 mcg Cap 00:00: by mouth Ernst as 00 daily. [facility] on linaCLOtide Yes [id number] 1{capsu Take 1-2 [facility] (LINZ[facility]) 1-26 le} capsules ity of 72 mcg Cap 00:00: by mouth Ernst as 00 daily. [facility] on linaCLOtide Yes [id number] 1{capsu Take 1-2 [facility] (LINZESS) 1-26 le} capsules ity of 72 mcg Cap 00:00: by mouth Ernst as 00 daily. [facility] on linaCLOtide Yes [id number] 1{capsu Take 1-2 [facility] (LINZESS) 1-26 le} capsules ity of 72 mcg Cap 00:00: by mouth Ernst as 00 daily. [facility] on linaCLOtide Yes [id number] 1{capsu Take 1-2 [facility] (LINZESS) 1-26 le} capsules ity of 72 mcg Cap 00:00: by mouth Ernst as 00 daily. [facility] on linaCLOtide Yes [id number] 1{capsu Take 1-2 [facility] (LINZESS) 1-26 le} capsules ity of 72 mcg Cap 00:00: by mouth Ernst as 00 daily. [facility] on linaCLOtide Yes [id number] 1{capsu Take 1-2 [facility] (LINZESS) 1-26 le} capsules ity of 72 mcg Cap 00:00: by mouth Ernst as 00 daily. For [facility] on linaCLOtide Yes [id number] 1{capsu Take 1-2 [facility] (LIN[facility]) 1-26 le} capsules ity of 72 mcg Cap 00:00: by mouth Ernst as 00 daily. [facility] on linaCLOtide Yes [id number] 1{capsu Take 1-2 [facility] (LINZ[facility]) 1-26 le} capsules ity of 72 mcg Cap 00:00: by mouth Ernst as 00 daily. For [facility] on linaCLOtide Yes [id number] 1{capsu Take 1-2 [facility] (LINZ[facility]) 1-26 le} capsules ity of 72 mcg Cap 00:00: by mouth Ernst as 00 daily. [facility] on linaCLOtide Yes [id number] 1{capsu Take 1-2 [facility] (LINZESS) 1-26 le} capsules ity of 72 mcg Cap 00:00: by mouth Ernst as 00 daily. [facility] on linaCLOtide Yes [id number] 1{capsu Take 1-2 [facility] (LINZESS) 1-26 le} capsules ity of 72 mcg Cap 00:00: by mouth Ernst as 00 daily. [facility] on linaCLOtide Yes [id number] 1{capsu Take 1-2 [facility] (LINZESS) 1-26 le} capsules ity of 72 mcg Cap 00:00: by mouth Ernst as 00 daily. [facility] on linaCLOtide Yes [id number] 1{capsu Take 1-2 [facility] (LINZESS) 1-26 le} capsules ity of 72 mcg Cap 00:00: by mouth Ernst as 00 daily. For [facility] on linaCLOtide Yes [id number] 1{capsu Take 1-2 [facility] (LINZESS) 1-26 le} capsules ity of 72 mcg Cap 00:00: by mouth Ernst as 00 daily. For [facility] on linaCLOtide Yes [id number] 1{capsu Take 1-2 [facility] (LINZESS) 1-26 le} capsules ity of 72 mcg Cap 00:00: by mouth Ernst as 00 daily. For [facility] on linaCLOtide Yes [id number] 1{capsu Take 1-2 [facility] (LINZ[facility]) 1-26 le} capsules ity of 72 mcg Cap 00:00: by mouth Ernst as 00 daily. For [facility] on linaCLOtide Yes [id number] 1{capsu Take 1-2 [facility] (LINZESS) 1-26 le} capsules ity of 72 mcg Cap 00:00: by mouth Ernst as 00 daily. For [facility] on linaCLOtide Yes [id number] 1{capsu Take 1-2 [facility] (LINZESS) 1-26 le} capsules ity of 72 mcg Cap 00:00: by mouth Ernst as 00 daily. For [facility] on linaCLOtide Yes [id number] 1{capsu Take 1-2 [facility] (LINZ[facility]) 1-26 le} capsules ity of 72 mcg Cap 00:00: by mouth Ernst as 00 daily. For [facility] on linaCLOtide Yes [id number] 1{capsu Take 1-2 [facility] (LINZESS) 1-26 le} capsules ity of 72 mcg Cap 00:00: by mouth Ernst as 00 daily. For [facility] on linaCLOtide Yes [id number] 1{capsu Take 1-2 [facility] (LINZESS) 1-26 le} capsules ity of 72 mcg Cap 00:00: by mouth Ernst as 00 daily. For [facility] on linaCLOtide Yes [id number] 1{capsu Take 1-2 [facility] (LINZESS) 1-26 le} capsules ity of 72 mcg Cap 00:00: by mouth Ernst as 00 daily. For [facility] on linaCLOtide Yes [id number] 1{capsu Take 1-2 [facility] (LINZESS) 1-26 le} capsules ity of 72 mcg Cap 00:00: by mouth Ernst as 00 daily. For [facility] on linaCLOtide Yes [id number] 1{capsu Take 1-2 [facility] (LINZESS) 1-26 le} capsules ity of 72 mcg Cap 00:00: by mouth Ernst as 00 daily. [facility] on linaCLOtide Yes [id number] 1{capsu Take 1-2 [facility] (LINZESS) 1-26 le} capsules ity of 72 mcg Cap 00:00: by mouth Ernst as 00 daily. [facility] on linaCLOtide Yes [id number] 1{capsu Take 1-2 [facility] (LINZESS) 1-26 le} capsules ity of 72 mcg Cap 00:00: by mouth Ernst as 00 daily. For [facility] on linaCLOtide Yes [id number] 1{capsu Take 1-2 [facility] (LINZESS) 1-26 le} capsules ity of 72 mcg Cap 00:00: by mouth Ernst as 00 daily. For [facility] on linaCLOtide Yes [id number] 1{capsu Take 1-2 [facility] (LINZESS) 1-26 le} capsules ity of 72 mcg Cap 00:00: by mouth Ernst as 00 daily. For [facility] on linaCLOtide Yes [id number] 1{capsu Take 1-2 [facility] (LINZESS) 1-26 le} capsules ity of 72 mcg Cap 00:00: by mouth Ernst as 00 daily. For [facility] on linaCLOtide Yes [id number] 1{capsu Take 1-2 [facility] (LINZESS) 1-26 le} capsules ity of 72 mcg Cap 00:00: by mouth Ernst as 00 daily. [facility] on linaCLOtide Yes [id number] 1{capsu Take 1-2 [facility] (LINZESS) 1-26 le} capsules ity of 72 mcg Cap 00:00: by mouth Ernst as 00 daily. For [facility] on linaCLOtide Yes [id number] 1{capsu Take 1-2 [facility] (LINZESS) 1-26 le} capsules ity of 72 mcg Cap 00:00: by mouth Ernst as 00 daily. For [facility] on linaCLOtide Yes [id number] 1{capsu Take 1-2 [facility] (LINZESS) 1-26 le} capsules ity of 72 mcg Cap 00:00: by mouth Ernst as 00 daily. For [facility] on linaCLOtide Yes [id number] 1{capsu Take 1-2 [facility] (LINZESS) 1-26 le} capsules ity of 72 mcg Cap 00:00: by mouth Ernst as 00 daily. For [facility] on linaCLOtide Yes [id number] 1{capsu Take 1-2 [facility] (LINZESS) 1-26 le} capsules ity of 72 mcg Cap 00:00: by mouth Ernst as 00 daily. For [facility] on linaCLOtide Yes [id number] 1{capsu Take 1-2 [facility] (LINZESS) 1-26 le} capsules ity of 72 mcg Cap 00:00: by mouth Ernst as 00 daily. For [facility] on linaCLOtide Yes [id number] 1{capsu Take 1-2 [facility] (LINZESS) 1-26 le} capsules ity of 72 mcg Cap 00:00: by mouth Ernst as 00 daily. For [facility] on linaCLOtide Yes [id number] 1{capsu Take 1-2 [facility] (LINZESS) 1-26 le} capsules ity of 72 mcg Cap 00:00: by mouth Ernst as 00 daily. For [facility] on linaCLOtide Yes [id number] 1{capsu Take 1-2 [facility] (LINZESS) 1-26 le} capsules ity of 72 mcg Cap 00:00: by mouth Ernst as 00 daily. For [facility] on linaCLOtide Yes [id number] 1{capsu Take 1-2 [facility] (LINZESS) 1-26 le} capsules ity of 72 mcg Cap 00:00: by mouth Ernst as 00 daily. For [facility] on linaCLOtide Yes [id number] 1{capsu Take 1-2 [facility] (LINZESS) 1-26 le} capsules ity of 72 mcg Cap 00:00: by mouth Ernst as 00 daily. For [facility] on linaCLOtide Yes [id number] 1{capsu Take 1-2 [facility] (LINZESS) 1-26 le} capsules ity of 72 mcg Cap 00:00: by mouth Ernst as 00 daily. For [facility] on linaCLOtide Yes [id number] 1{capsu Take 1-2 [facility] (LINZESS) 1-26 le} capsules ity of 72 mcg Cap 00:00: by mouth Ernst as 00 daily. For [facility] on linaCLOtide Yes [id number] 1{capsu Take 1-2 [facility] (LINZESS) 1-26 le} capsules ity of 72 mcg Cap 00:00: by mouth Ernst as 00 daily. For [facility] on linaCLOtide Yes [id number] 1{capsu Take 1-2 [facility] (LINZESS) 1-26 le} capsules ity of 72 mcg Cap 00:00: by mouth Ernst as 00 daily. For [facility] on linaCLOtide Yes [id number] 1{capsu Take 1-2 [facility] (LINZESS) 1-26 le} capsules ity of 72 mcg Cap 00:00: by mouth Ernst as 00 daily. For [facility] on linaCLOtide Yes [id number] 1{capsu Take 1-2 [facility] (LINZESS) 1-26 le} capsules ity of 72 mcg Cap 00:00: by mouth Ernst as 00 daily. For [facility] on linaCLOtide Yes [id number] 1{capsu Take 1-2 [facility] (LINZESS) 1-26 le} capsules ity of 72 mcg Cap 00:00: by mouth Ernst as 00 daily. For [facility] on linaCLOtide Yes [id number] 1{capsu Take 1-2 [facility] (LINZESS) 1-26 le} capsules ity of 72 mcg Cap 00:00: by mouth Ernst as 00 daily. For [facility] on linaCLOtide Yes [id number] 1{capsu Take 1-2 [facility] (LINZESS) 1-26 le} capsules ity of 72 mcg Cap 00:00: by mouth Ernst as 00 daily. For [facility] on linaCLOtide Yes [id number] 1{capsu Take 1-2 [facility] (LINZESS) 1-26 le} capsules ity of 72 mcg Cap 00:00: by mouth Ernst as 00 daily. For [facility] on linaCLOtide Yes [id number] 1{capsu Take 1-2 [facility] (LINZESS) 1-26 le} capsules ity of 72 mcg Cap 00:00: by mouth Ernst as 00 daily. For [facility] on linaCLOtide Yes [id number] 1{capsu Take 1-2 [facility] (LINZESS) 1-26 le} capsules ity of 72 mcg Cap 00:00: by mouth Ernst as 00 daily. For [facility] on linaCLOtide Yes [id number] 1{capsu Take 1-2 [facility] (LINZESS) 1-26 le} capsules ity of 72 mcg Cap 00:00: by mouth Ernst as 00 daily. For [facility] on linaCLOtide Yes [id number] 1{capsu Take 1-2 [facility] (LINZESS) 1-26 le} capsules ity of 72 mcg Cap 00:00: by mouth Ernst as 00 daily. For [facility] on linaCLOtide Yes [id number] 1{capsu Take 1-2 [facility] (LINZESS) 1-26 le} capsules ity of 72 mcg Cap 00:00: by mouth Ernst as 00 daily. For [facility] on linaCLOtide Yes [id number] 1{capsu Take 1-2 [facility] (LINZESS) 1-26 le} capsules ity of 72 mcg Cap 00:00: by mouth Ernst as 00 daily. For [facility] on linaCLOtide Yes [id number] 1{capsu Take 1-2 [facility] (LINZESS) 1-26 le} capsules ity of 72 mcg Cap 00:00: by mouth Ernst as 00 daily. For [facility] on linaCLOtide Yes [id number] 1{capsu Take 1-2 [facility] (LINZESS) 1-26 le} capsules ity of 72 mcg Cap 00:00: by mouth Ernst as 00 daily. For [facility] on linaCLOtide Yes [id number] 1{capsu Take 1-2 [facility] (LINZESS) 1-26 le} capsules ity of 72 mcg Cap 00:00: by mouth Ernst as 00 daily. For [facility] on linaCLOtide Yes [id number] 1{capsu Take 1-2 [facility] (LINZESS) 1-26 le} capsules ity of 72 mcg Cap 00:00: by mouth Ernst as 00 daily. For [facility] on linaCLOtide Yes [id number] 1{capsu Take 1-2 [facility] (LINZESS) 1-26 le} capsules ity of 72 mcg Cap 00:00: by mouth Ernst as 00 daily. For [facility] on linaCLOtide Yes [id number] 1{capsu Take 1-2 [facility] (LINZESS) 1-26 le} capsules ity of 72 mcg Cap 00:00: by mouth Ernst as 00 daily. For [facility] on linaCLOtide Yes [id number] 1{capsu Take 1-2 [facility] (LINZESS) 1-26 le} capsules ity of 72 mcg Cap 00:00: by mouth Ernst as 00 daily. For [facility] on linaCLOtide Yes [id number] 1{capsu Take 1-2 [facility] (LINZESS) 1-26 le} capsules ity of 72 mcg Cap 00:00: by mouth Ernst as 00 daily. For [facility] on linaCLOtide Yes [id number] 1{capsu Take 1-2 [facility] (LINZESS) 1-26 le} capsules ity of 72 mcg Cap 00:00: by mouth Ernst as 00 daily. For [facility] on linaCLOtide Yes [id number] 1{capsu Take 1-2 [facility] (LINZESS) 1-26 le} capsules ity of 72 mcg Cap 00:00: by mouth Ernst as 00 daily. For [facility] on linaCLOtide Yes [id number] 1{capsu Take 1-2 [facility] (LINZESS) 1-26 le} capsules ity of 72 mcg Cap 00:00: by mouth Ernst as 00 daily. For [facility] on linaCLOtide Yes [id number] 1{capsu Take 1-2 [facility] (LINZESS) 1-26 le} capsules ity of 72 mcg Cap 00:00: by mouth Ernst as 00 daily. For [facility] on linaCLOtide Yes [id number] 1{capsu Take 1-2 [facility] (LINZESS) 1-26 le} capsules ity of 72 mcg Cap 00:00: by mouth Ernst as 00 daily. For [facility] on linaCLOtide Yes [id number] 1{capsu Take 1-2 [facility] (LINZESS) 1-26 le} capsules ity of 72 mcg Cap 00:00: by mouth Ernst as 00 daily. For [facility] on linaCLOtide Yes [id number] 1{capsu Take 1-2 [facility] (LINZESS) 1-26 le} capsules ity of 72 mcg Cap 00:00: by mouth Ernst as 00 daily. For [facility] on linaCLOtide Yes [id number] 1{capsu Take 1-2 [facility] (LINZESS) 1-26 le} capsules ity of 72 mcg Cap 00:00: by mouth Ernst as 00 daily. For [facility] on linaCLOtide Yes [id number] 1{capsu Take 1-2 [facility] (LINZESS) 1-26 le} capsules ity of 72 mcg Cap 00:00: by mouth Ernst as 00 daily. For [facility] on linaCLOtide Yes [id number] 1{capsu Take 1-2 [facility] (LINZESS) 1-26 le} capsules ity of 72 mcg Cap 00:00: by mouth Ernst as 00 daily. For [facility] on linaCLOtide Yes [id number] 1{capsu Take 1-2 [facility] (LINZESS) 1-26 le} capsules ity of 72 mcg Cap 00:00: by mouth Ernst as 00 daily. For [facility] on linaCLOtide Yes [id number] 1{capsu Take 1-2 [facility] (LINZESS) 1-26 le} capsules ity of 72 mcg Cap 00:00: by mouth Ernst as 00 daily. For [facility] on linaCLOtide Yes [id number] 1{capsu Take 1-2 [facility] (LINZESS) 1-26 le} capsules ity of 72 mcg Cap 00:00: by mouth Ernst as 00 daily. For [facility] on linaCLOtide Yes [id number] 1{capsu Take 1-2 [facility] (LINZESS) 1-26 le} capsules ity of 72 mcg Cap 00:00: by mouth Ernst as 00 daily. For [facility] on linaCLOtide Yes [id number] 1{capsu Take 1-2 [facility] (LINZESS) 1-26 le} capsules ity of 72 mcg Cap 00:00: by mouth Ernst as 00 daily. For [facility] on linaCLOtide Yes [id number] 1{capsu Take 1-2 [facility] (LINZESS) 1-26 le} capsules ity of 72 mcg Cap 00:00: by mouth Ernst as 00 daily. For [facility] on linaCLOtide Yes [id number] 1{capsu Take 1-2 [facility] (LINZESS) 1-26 le} capsules ity of 72 mcg Cap 00:00: by mouth Ernst as 00 daily. For [facility] on linaCLOtide Yes [id number] 1{capsu Take 1-2 [facility] (LINZESS) 1-26 le} capsules ity of 72 mcg Cap 00:00: by mouth Ernst as 00 daily. For [facility] on linaCLOtide Yes [id number] 1{capsu Take 1-2 [facility] (LINZESS) 1-26 le} capsules ity of 72 mcg Cap 00:00: by mouth Ernst as 00 daily. For [facility] on linaCLOtide Yes [id number] 1{capsu Take 1-2 [facility] (LINZESS) 1-26 le} capsules ity of 72 mcg Cap 00:00: by mouth Ernst as 00 daily. For [facility] on linaCLOtide Yes [id number] 1{capsu Take 1-2 [facility] (LINZESS) 1-26 le} capsules ity of 72 mcg Cap 00:00: by mouth Ernst as 00 daily. For [facility] on linaCLOtide Yes [id number] 1{capsu Take 1-2 [facility] (LINZESS) 1-26 le} capsules ity of 72 mcg Cap 00:00: by mouth Ernst as 00 daily. For [facility] on linaCLOtide Yes [id number] 1{capsu Take 1-2 [facility] (LINZESS) 1-26 le} capsules ity of 72 mcg Cap 00:00: by mouth Ernst as 00 daily. For [facility] on linaCLOtide Yes [id number] 1{capsu Take 1-2 [facility] (LINZESS) 1-26 le} capsules ity of 72 mcg Cap 00:00: by mouth [facility] as 00 daily. For [facility] on linaCLOtide Yes [id number] 1{capsu Take 1-2 [facility] (LINZESS) 1-26 le} capsules ity of 72 mcg Cap 00:00: by mouth Ernst as 00 daily. For [facility] on linaCLOtide Yes [id number] 1{capsu Take 1-2 [facility] (LINZESS) 1-26 le} capsules ity of 72 mcg Cap 00:00: by mouth Ernst as 00 daily. For [facility] on linaCLOtide Yes [id number] 1{capsu Take 1-2 [facility] (LINZESS) 1-26 le} capsules ity of 72 mcg Cap 00:00: by mouth [facility] as 00 daily. For [facility] on linaCLOtide Yes [id number] 1{capsu Take 1-2 [facility] (LINZESS) 1-26 le} capsules ity of 72 mcg Cap 00:00: by mouth Ernst as 00 daily. For [facility] on linaCLOtide Yes [id number] 1{capsu Take 1-2 [facility] (LINZESS) 1-26 le} capsules ity of 72 mcg Cap 00:00: by mouth Ernst as 00 daily. For [facility] on linaCLOtide Yes [id number] 1{capsu Take 1-2 [facility] (LINZESS) 1-26 le} capsules ity of 72 mcg Cap 00:00: by mouth Ernst as 00 daily. For [facility] on linaCLOtide Yes [id number] 1{capsu Take 1-2 [facility] (LINZESS) 1-26 le} capsules ity of 72 mcg Cap 00:00: by mouth Ernst as 00 daily. For [facility] on linaCLOtide Yes [id number] 1{capsu Take 1-2 [facility] (LINZESS) 1-26 le} capsules ity of 72 mcg Cap 00:00: by mouth Ernst as 00 daily. For [facility] on linaCLOtide Yes [id number] 1{capsu Take 1-2 [facility] (LINZESS) 1-26 le} capsules ity of 72 mcg Cap 00:00: by mouth Ernst as 00 daily. For [facility] on linaCLOtide Yes [id number] 1{capsu Take 1-2 [facility] (LINZESS) 1-26 le} capsules ity of 72 mcg Cap 00:00: by mouth Ernst as 00 daily. For [facility] on linaCLOtide Yes [id number] 1{capsu Take 1-2 [facility] (LINZESS) 1-26 le} capsules ity of 72 mcg Cap 00:00: by mouth Ernst as 00 daily. For [facility] on linaCLOtide Yes [id number] 1{capsu Take 1-2 [facility] (LINZESS) 1-26 le} capsules ity of 72 mcg Cap 00:00: by mouth Ernst as 00 daily. For [facility] on linaCLOtide Yes [id number] 1{capsu Take 1-2 [facility] (LINZESS) 1-26 le} capsules ity of 72 mcg Cap 00:00: by mouth Ernst as 00 daily. For [facility] on linaCLOtide Yes [id number] 1{capsu Take 1-2 [facility] (LINZESS) 1-26 le} capsules ity of 72 mcg Cap 00:00: by mouth Ernst as 00 daily. For Medical constipati Branch on linaCLOtide Yes [id number] 1{capsu Take 1-2 Univers (LINZESS) 1-26 le} capsules ity of 72 mcg Cap 00:00: by mouth Ernst as 00 daily. For Medical constipati Branch on linaCLOtide Yes [id number] 1{capsu Take 1-2 Univers (LINZESS) 1-26 le} capsules ity of 72 mcg Cap 00:00: by mouth Ernst as 00 daily. For Medical constipati Branch on linaCLOtide Yes [id number] 1{capsu Take 1-2 Univers (LINZESS) 1-26 le} capsules ity of 72 mcg Cap 00:00: by mouth Ernst as 00 daily. For Medical constipati Branch on linaCLOtide Yes [id number] 1{capsu Take 1-2 Univers (LINZESS) 1-26 le} capsules ity of 72 mcg Cap 00:00: by mouth Ernst as 00 daily. For Medical constipati Branch on linaCLOtide Yes [id number] 1{capsu Take 1-2 Univers (LINZESS) 1-26 le} capsules ity of 72 mcg Cap 00:00: by mouth Ernst as 00 daily. For Medical constipati Branch on linaCLOtide Yes [id number] 1{capsu Take 1-2 Univers (LINZESS) 1-26 le} capsules ity of 72 mcg Cap 00:00: by mouth Ernst as 00 daily. For Medical constipati Branch on linaCLOtide Yes [id number] 1{capsu Take 1-2 Univers (LINZESS) 1-26 le} capsules ity of 72 mcg Cap 00:00: by mouth Ernst as 00 daily. For Medical constipati Branch on linaCLOtide Yes [id number] 1{capsu Take 1-2 Univers (LINZESS) 1-26 le} capsules ity of 72 mcg Cap 00:00: by mouth Ernst as 00 daily. For Medical constipati Branch on linaCLOtide Yes [id number] 1{capsu Take 1-2 Univers (LINZESS) 1-26 le} capsules ity of 72 mcg Cap 00:00: by mouth Ernst as 00 daily. For Medical constipati Branch on linaCLOtide Yes [id number] 1{capsu Take 1-2 Univers (LINZESS) 1-26 le} capsules ity of 72 mcg Cap 00:00: by mouth Ernst as 00 daily. For Medical constipati Branch on linaCLOtide Yes [id number] 1{capsu Take 1-2 Univers (LINZESS) 1-26 le} capsules ity of 72 mcg Cap 00:00: by mouth Ernst as 00 daily. For Medical constipati Branch on linaCLOtide Yes [id number] 1{capsu Take 1-2 Univers (LINZESS) 1-26 le} capsules ity of 72 mcg Cap 00:00: by mouth Ernst as 00 daily. For Medical constipati Branch on linaCLOtide Yes [id number] 1{capsu Take 1-2 Univers (LINZESS) 1-26 le} capsules ity of 72 mcg Cap 00:00: by mouth Ernst as 00 daily. For Medical constipati Branch on linaCLOtide Yes [id number] 1{capsu Take 1-2 Univers (LINZESS) 1-26 le} capsules ity of 72 mcg Cap 00:00: by mouth Ernst as 00 daily. For Medical constipati Branch on linaCLOtide Yes [id number] 1{capsu Take 1-2 Univers (LINZESS) 1-26 le} capsules ity of 72 mcg Cap 00:00: by mouth Ernst as 00 daily. For Medical constipati Branch on linaCLOtide Yes [id number] 1{capsu Take 1-2 Univers (LINZESS) 1-26 le} capsules ity of 72 mcg Cap 00:00: by mouth Ernst as 00 daily. For Medical constipati Branch on linaCLOtide Yes [id number] 1{capsu Take 1-2 Univers (LINZESS) 1-26 le} capsules ity of 72 mcg Cap 00:00: by mouth Ernst as 00 daily. For Medical constipati Branch on linaCLOtide Yes [id number] 1{capsu Take 1-2 Univers (LINZESS) 1-26 le} capsules ity of 72 mcg Cap 00:00: by mouth Ernst as 00 daily. For Medical constipati Branch on linaCLOtide Yes [id number] 1{capsu Take 1-2 Univers (LINZESS) 1-26 le} capsules ity of 72 mcg Cap 00:00: by mouth Ernst as 00 daily. For Medical constipati Branch on linaCLOtide Yes [id number] 1{capsu Take 1-2 [facility] (LINZESS) 1-26 le} capsules ity of 72 mcg Cap 00:00: by mouth Ernst as 00 daily. For Medical constipati Branch on linaCLOtide Yes [id number] 1{capsu Take 1-2 Univers (LINZESS) 1-26 le} capsules ity of 72 mcg Cap 00:00: by mouth Ernst as 00 daily. For Medical constipati Branch on linaCLOtide Yes [id number] 1{capsu Take 1-2 Univers (LINZESS) 1-26 le} capsules ity of 72 mcg Cap 00:00: by mouth Ernst as 00 daily. For Medical constipati Branch on linaCLOtide Yes [id number] 1{capsu Take 1-2 Univers (LINZESS) 1-26 le} capsules ity of 72 mcg Cap 00:00: by mouth Ernst as 00 daily. For Medical constipati Branch on linaCLOtide Yes [id number] 1{capsu Take 1-2 Univers (LINZESS) 1-26 le} capsules ity of 72 mcg Cap 00:00: by mouth Ernst as 00 daily. For Medical constipati Branch on linaCLOtide Yes [id number] 1{capsu Take 1-2 Univers (LINZESS) 1-26 le} capsules ity of 72 mcg Cap 00:00: by mouth Ersnt as 00 daily. For Medical constipati Branch on linaCLOtide Yes [id number] 1{capsu Take 1-2 Univers (LINZESS) 1-26 le} capsules ity of 72 mcg Cap 00:00: by mouth Ernst as 00 daily. For Medical constipati Branch on linaCLOtide Yes [id number] 1{capsu Take 1-2 Univers (LINZESS) 1-26 le} capsules ity of 72 mcg Cap 00:00: by mouth Ernst as 00 daily. For Medical constipati Branch on linaCLOtide Yes [id number] 1{capsu Take 1-2 Univers (LINZESS) 1-26 le} capsules ity of 72 mcg Cap 00:00: by mouth Ernst as 00 daily. For Medical constipati Branch on linaCLOtide Yes [id number] 1{capsu Take 1-2 Univers (LINZESS) 1-26 le} capsules ity of 72 mcg Cap 00:00: by mouth Ernst as 00 daily. For Medical constipati Branch on linaCLOtide Yes [id number] 1{capsu Take 1-2 Univers (LINZESS) 1-26 le} capsules ity of 72 mcg Cap 00:00: by mouth Ernst as 00 daily. For Medical constipati Branch on linaCLOtide Yes [id number] 1{capsu Take 1-2 [facility] (LINZESS) 1-26 le} capsules ity of 72 mcg Cap 00:00: by mouth Ernst as 00 daily. For Medical constipati Branch on linaCLOtide Yes [id number] 1{capsu Take 1-2 Univers (LINZESS) 1-26 le} capsules ity of 72 mcg Cap 00:00: by mouth Ernst as 00 daily. For Medical constipati Branch on linaCLOtide Yes [id number] 1{capsu Take 1-2 Univers (LINZESS) 1-26 le} capsules ity of 72 mcg Cap 00:00: by mouth Ernst as 00 daily. For Medical constipati Branch on linaCLOtide Yes [id number] 1{capsu Take 1-2 Univers (LINZESS) 1-26 le} capsules ity of 72 mcg Cap 00:00: by mouth Ernst as 00 daily. For Medical constipati Branch on linaCLOtide Yes [id number] 1{capsu Take 1-2 Univers (LINZESS) 1-26 le} capsules ity of 72 mcg Cap 00:00: by mouth Ernst as 00 daily. For Medical constipati Branch on linaCLOtide Yes [id number] 1{capsu Take 1-2 Univers (LINZESS) 1-26 le} capsules ity of 72 mcg Cap 00:00: by mouth Ernst as 00 daily. For Medical constipati Branch on Miscellaneo 2018-07 Yes [id number] ENSURE [facility] Medical 2-03 HIGH ity of Supply Misc 00:00: PROTEIN 2 [place] 00 CANS A DAY Medical Branch Miscellaneo 2018-07 Yes [id number] ENSURE [facility] Medical 2-03 HIGH ity of Supply Misc 00:00: PROTEIN 2 [place] 00 CANS A DAY Medical Branch M[facility]o 2018-07 Yes [id number] ENSURE [facility] Medical 2-03 HIGH ity of Supply Misc 00:00: PROTEIN 2 [place] 00 CANS A DAY Medical Branch Miscellaneo 2018-07 Yes [id number] ENSURE [facility] 2-03 HIGH ity of Supply Misc 00:00: PROTEIN 2 [place] [facility] CANS [facility] DAY [facility] [id number] ENSURE [facility] Medical 2-03 HIGH ity of Supply Misc 00:00: PROTEIN 2 [place] 00 CANS A DAY [facility]07- No [id number] ENSURE [facility] 2-09 14- HIGH ity of Supply Misc 00:00: 00:00 PROTEIN 2 [place] 00 :00 CANS A DAY Medical Branch Miscellaneo 2018-07- No [id number] ENSURE [facility] 2-09 14- HIGH ity of Supply Misc 00:00: 00:00 PROTEIN 2 [place] 00 :00 CANS A DAY Medical Branch Blood 2018-0 Yes Use as Univers Pressure 9-18 directed ity of Monitor 00:00: to check [place] (BLOOD 00 BP once Medical PRESSURE daily, Branch KIT) Kit DX:I10 Blood Yes Use as Univers Pressure 9-18 directed ity of Monitor 00:00: to check [place] (BLOOD 00 BP once Medical PRESSURE daily, Branch KIT) Kit DX:I10 Blood Yes Use as Univers Pressure 9-18 directed [...] Immunizations Ordered Filled Immunization Date Status Comments [facility] e Immunization Name Name Td 2017-04-12 Completed University of 00:00:00 [place] [facility] Td 2017-04-12 Completed [facility] of 00:00:00 [place] [facility] Td 2017-04-12 Completed [facility] of 00:00:00 [facility] Td 2017-04-12 Completed University of 00:00:00 [facility] Td 2017-04-12 Completed [facility] of 00:00:00 [facility] Td 2017-04-12 Completed University of 00:00:00 [place] [facility] Td 2017-04-12 Completed University of 00:00:00 [facility] Td 2017-04-12 Completed [facility] of 00:00:00 [facility] Td 2017-04-12 Completed [facility] of 00:00:00 [facility] Td 2017-04-12 Completed [facility] of 00:00:00 [facility] Td 2017-04-12 Completed [facility] of 00:00:00 [facility] Td 2017-04-12 Completed [facility] of 00:00:00 [facility] Td 2017-04-12 Completed [facility] of 00:00:00 [facility] Td 2017-04-12 Completed [facility] of 00:00:00 [facility] Td 2017-04-12 Completed [facility] of 00:00:00 [facility] Td 2017-04-12 Completed University of 00:00:00 [facility] Td 2017-04-12 Completed University of 00:00:00 [facility] Td 2017-04-12 Completed [facility] of 00:00:00 [facility] Td 2017-04-12 Completed [facility] of 00:00:00 [facility] Td 2017-04-12 Completed [facility] of 00:00:00 [facility] Td 2017-04-12 Completed [facility] of 00:00:00 [facility] Td 2017-04-12 Completed [facility] of 00:00:00 [facility] Td 2017-04-12 Completed [facility] of 00:00:00 [facility] Td 2017-04-12 Completed University of 00:00:00 [facility] Td 2017-04-12 Completed University of 00:00:00 [facility] Td 2017-04-12 Completed [facility] of 00:00:00 [facility] Td 2017-04-12 Completed University of 00:00:00 [facility] Td 2017-04-12 Completed [facility] of 00:00:00 [place] [facility] Td 2017-04-12 Completed University of 00:00:00 [facility] Td 2017-04-12 Completed University of [...] Branch Td 2017-04-12 Completed University of 00:00:00 [facility] Td 2017-04-12 Completed [facility] of 00:00:00 [facility] Td 2017-04-12 Completed [facility] of 00:00:00 [facility] Td 2017-04-12 Completed [facility] of 00:00:00 [facility] Td 2017-04-12 Completed University of 00:00:00 [facility] Td 2017-04-12 Completed University of 00:00:00 [facility] Td 2017-04-12 Completed [facility] of 00:00:00 [facility] Td 2017-04-12 Completed University of 00:00:00 [facility] Td 2017-04-12 Completed University of 00:00:00 [facility] Td 2017-04-12 Completed [facility] of 00:00:00 [facility] Td 2017-04-12 Completed [facility] of 00:00:00 [facility] Td 2017-04-12 Completed [facility] of 00:00:00 [facility] Td 2017-04-12 Completed University of 00:00:00 [facility] Td 2017-04-12 Completed University of 00:00:00 [facility] Td 2017-04-12 Completed University of 00:00:00 [facility] Td 2017-04-12 Completed University of 00:00:00 [facility] Td 2017-04-12 Completed University of 00:00:00 [facility] Td 2017-04-12 Completed University of 00:00:00 [facility] Branch Td 2017-04-12 Completed University of 00:00:00 [facility] Branch Td 2017-04-12 Completed University of 00:00:00 [facility] Vital Signs Vital Name Observation Time Observation Value Comments Source Systolic blood 2023-03-09 16:21:00 114 mm[Hg] Univer sity of pressure [facility] Diastolic blood 2023-03-09 16:21:00 72 mm[Hg] Unive rsity of pressure [facility] Heart rate 2023-03-09 16:21:00 75 /min [facility] Respiratory rate 2023-03-09 16:21:00 18 /min Univ ersity of [facility] Body height 2023-03-09 16:21:00 157.5 cm [facility] Body weight 2023-03-09 16:21:00 103.148 kg [facility] BMI 2023-03-09 16:21:00 41.59 kg/m2 [facility]i ty [facility] Oxygen saturation in 2023-03-09 16:21:00 98 /min University of Arterial blood by [facility] Pulse oximetry Branch Systolic blood 2023-03-06 19:59:00 128 mm[Hg] Univer sity of pressure [facility] Diastolic blood 2023-03-06 19:59:00 81 mm[Hg] Unive rsity of pressure [facility] Heart rate 2023-03-06 19:59:00 81 /min [facility] Body temperature 2023-03-06 19:59:00 36.56 Suzette Univ ersity of [facility] Respiratory rate 2023-03-06 19:59:00 16 /min Univ ersity of [facility] Body height 2023-03-06 19:59:00 160 cm [facility] Body weight 2023-03-06 19:59:00 102.468 kg [facility] BMI 2023-03-06 19:59:00 40.02 kg/m2 [facility] Oxygen saturation in 2023-03-06 19:59:00 99 /min [facility] of Arterial blood by [facility] Pulse oximetry Branch Systolic blood 2023-02-23 14:00:00 130 mm[Hg] Univer sity of pressure [facility] Diastolic blood 2023-02-23 14:00:00 79 mm[Hg] Unive rsity of pressure [facility] Heart rate 2023-02-23 14:00:00 82 /min [facility] Body temperature 2023-02-23 14:00:00 36.39 Suzette Univ ersity of [facility] Respiratory rate 2023-02-23 14:00:00 16 /min Univ ersity of [facility] Oxygen saturation in 2023-02-23 14:00:00 99 /min [facility] of Arterial blood by [facility] Pulse oximetry Branch Body height 2023-02-19 17:00:00 160 cm [facility] Body weight 2023-02-19 17:00:00 99.791 kg [facility] BMI 2023-02-19 17:00:00 38.97 kg/m2 [facility] Systolic blood 2023-02-12 15:53:00 128 mm[Hg] Univer sity of pressure [facility] Diastolic blood 2023-02-12 15:53:00 81 mm[Hg] Unive rsity of pressure [facility] Heart rate 2023-02-12 15:53:00 78 /min [facility] Body temperature 2023-02-12 15:53:00 36.33 Suzette Univ ersity of [facility] Body height 2023-02-12 15:53:00 160 cm [facility] Body weight 2023-02-12 15:53:00 103.828 kg [facility] BMI 2023-02-12 15:53:00 40.55 kg/m2 [facility] Oxygen saturation in 2023-02-12 15:53:00 96 /min [facility] of Arterial blood by [place] [employer] janet Pulse oximetry Branch Systolic blood 2023-02-05 20:42:00 112 mm[Hg] Univer sity of pressure [facility] Diastolic blood 2023-02-05 20:42:00 73 mm[Hg] Unive rsity of pressure [facility] Heart rate 2023-02-05 20:42:00 70 /min [facility] Body temperature 2023-02-05 20:42:00 36.56 Suzette Univ ersity of [facility] Respiratory rate 2023-02-05 20:42:00 20 /min Univ ersity of [facility] Body height 2023-02-05 20:42:00 160 cm [facility] Body weight 2023-02-05 20:42:00 106.459 kg [facility] BMI 2023-02-05 20:42:00 41.58 kg/m2 [facility] Oxygen saturation in 2023-02-05 20:42:00 97 /min University of Arterial blood by [employer] janet Pulse oximetry Branch Systolic blood 2023-02-01 14:58:00 131 mm[Hg] Univer sity of pressure [facility] Diastolic blood 2023-02-01 14:58:00 96 mm[Hg] Unive rsity of pressure [facility] Heart rate 2023-02-01 14:58:00 71 /min [facility] [place] [facility] Body temperature 2023-02-01 14:58:00 37.11 Suzette Univ ersity of [facility] Respiratory rate 2023-02-01 14:58:00 18 /min Univ ersity of [facility] Oxygen saturation in 2023-02-01 14:58:00 97 /min [facility] Arterial blood by [place] [employer] janet Pulse oximetry Branch Systolic blood 2023-01-31 14:57:00 102 mm[Hg] Univer sity of pressure [facility] Diastolic blood 2023-01-31 14:57:00 67 mm[Hg] Unive rsity of pressure [facility] Heart rate 2023-01-31 14:57:00 96 /min [facility] Body temperature 2023-01-31 14:57:00 36.89 Suzette Univ ersity of [facility] Respiratory rate 2023-01-31 14:57:00 18 /min Univ ersity of [facility] Body height 2023-01-31 14:57:00 161.6 cm [facility] Body weight 2023-01-31 14:57:00 107 kg [facility] [place] [facility] BMI 2023-01-31 14:57:00 40.97 kg/m2 [facility] [place] [facility] Systolic blood 2023-01-24 18:08:00 128 mm[Hg] Univer sity of pressure [facility] Diastolic blood 2023-01-24 18:08:00 84 mm[Hg] Unive rsity of pressure [facility] Heart rate 2023-01-24 18:08:00 73 /min [facility] [place] [facility] Body height 2023-01-24 18:08:00 160 cm [facility] [place] [facility] Body weight 2023-01-24 18:08:00 104.327 kg [facility] [place] [facility] BMI 2023-01-24 18:08:00 40.74 kg/m2 [facility] [place] [facility] Oxygen saturation in 2023-01-24 18:08:00 100 /min [facility] of Arterial blood by [facility] Pulse oximetry Branch Systolic blood 2023-01-18 17:00:00 124 mm[Hg] Univer sity of pressure [facility] Diastolic blood 2023-01-18 17:00:00 87 mm[Hg] Unive rsity of pressure [facility] Heart rate 2023-01-18 17:00:00 83 /min [facility] Respiratory rate 2023-01-18 17:00:00 13 /min Univ ersity of [facility] Oxygen saturation in 2023-01-18 17:00:00 97 /min [facility] Arterial blood by [place] [facility] Pulse oximetry Branch Body temperature 2023-01-18 15:10:00 37.22 Suzette Univ ersity of [facility] Body weight 2023-01-18 15:10:00 100.699 kg [facility] BMI 2023-01-18 15:10:00 39.33 kg/m2 [facility] Systolic blood 2023-01-11 18:28:00 132 mm[Hg] Univer sity of pressure [facility] Diastolic blood 2023-01-11 18:28:00 85 mm[Hg] Unive rsity of pressure [facility] Heart rate 2023-01-11 18:28:00 62 /min [facility] Body height 2023-01-11 18:28:00 160 cm [facility] Body weight 2023-01-11 18:28:00 100.971 kg [facility] [place] [facility] BMI 2023-01-11 18:28:00 39.43 kg/m2 [facility] [place] [facility] Oxygen saturation in 2023-01-11 18:28:00 99 /min [facility] Arterial blood by [place] [employer] janet Pulse oximetry Branch Systolic blood 2022-12-30 16:20:00 123 mm[Hg] Univer sity of pressure [facility] Diastolic blood 2022-12-30 16:20:00 79 mm[Hg] Unive rsity of pressure [facility] Heart rate 2022-12-30 16:20:00 89 /min [facility] Body temperature 2022-12-30 16:20:00 36.11 Suzette Univ ersity of [place] [facility] Respiratory rate 2022-12-30 16:20:00 17 /min Univ ersity of [place] [facility] Oxygen saturation in 2022-12-30 16:20:00 98 /min [facility] Arterial blood by [place] [facility] Pulse oximetry Branch Body weight 2022-12-30 08:43:00 109.997 kg [facility] [place] [facility] BMI 2022-12-30 08:43:00 42.96 kg/m2 [facility] Body height 2022-12-29 21:23:00 160 cm [facility] [place] [facility] Systolic blood 2022-12-07 15:56:00 95 mm[Hg] Univer sity of pressure [facility] Diastolic blood 2022-12-07 15:56:00 62 mm[Hg] Unive rsity of pressure [facility] Heart rate 2022-12-07 15:45:00 77 /min [facility] Body height 2022-12-07 15:45:00 160 cm [facility] Body weight 2022-12-07 15:45:00 104.781 kg [facility] [place] [facility] BMI 2022-12-07 15:45:00 40.92 kg/m2 [facility] Oxygen saturation in 2022-12-07 15:45:00 96 /min [facility] Arterial blood by [place] [employer] janet Pulse oximetry Branch Systolic blood 2022-11-22 16:36:00 125 mm[Hg] Univer sity of pressure [facility] Diastolic blood 2022-11-22 16:36:00 81 mm[Hg] Unive rsity of pressure [facility] Heart rate 2022-11-22 16:36:00 98 /min [facility] Body height 2022-11-22 16:03:00 157.5 cm [facility] Body weight 2022-11-22 16:03:00 107.049 kg [facility] BMI 2022-11-22 16:03:00 43.16 kg/m2 [facility] Oxygen saturation in 2022-11-22 16:03:00 98 /min [facility] of Arterial blood by [place] [employer] janet Pulse oximetry Branch Systolic blood 2022-11-11 16:46:00 154 mm[Hg] Univer sity of pressure [facility] Diastolic blood 2022-11-11 16:46:00 96 mm[Hg] Unive rsity of pressure [facility] Heart rate 2022-11-11 16:46:00 68 /min [facility]i ty [facility] [place] [facility] Body temperature 2022-11-11 16:46:00 35.89 Suzette Univ ersity of [facility] Respiratory rate 2022-11-11 16:46:00 16 /min Univ ersity of [facility] Oxygen saturation in 2022-11-11 16:46:00 97 /min [facility] of Arterial blood by [place] [employer] janet Pulse oximetry Branch Body height 2022-11-09 17:36:00 160 cm [facility] Body weight 2022-11-09 17:36:00 108.699 kg [facility] [place] [facility] BMI 2022-11-09 17:36:00 42.45 kg/m2 [facility] [place] [facility] Systolic blood 2022-11-09 16:15:00 124 mm[Hg] Univer sity of pressure [facility] Diastolic blood 2022-11-09 16:15:00 72 mm[Hg] Unive rsity of pressure [facility] Heart rate 2022-11-09 16:15:00 76 /min [facility] [place] [facility] Respiratory rate 2022-11-09 16:15:00 18 /min Univ ersity of [facility] Oxygen saturation in 2022-11-09 16:15:00 95 /min [facility] Arterial blood by [place] [employer] janet Pulse oximetry Branch Body temperature 2022-11-09 15:50:00 36.33 Suzette Univ ersity [facility] Body height 2022-11-09 11:30:00 160 cm [facility] Body weight 2022-11-09 11:30:00 108.7 kg [facility] BMI 2022-11-09 11:30:00 42.45 kg/m2 [facility] Systolic blood 2022-11-07 18:09:00 118 mm[Hg] Univer sity of pressure [facility] Diastolic blood 2022-11-07 18:09:00 86 mm[Hg] Unive rsity of pressure [facility] Heart rate 2022-11-07 18:09:00 86 /min [facility] Body temperature 2022-11-07 18:09:00 36.33 Suzette Univ [facility] Body height 2022-11-07 18:09:00 160 cm [facility] Body weight 2022-11-07 18:09:00 108.41 kg [facility] BMI 2022-11-07 18:09:00 42.34 kg/m2 [facility] [place] [facility] Systolic blood 2022-11-02 20:26:00 95 mm[Hg] Univer sity of pressure [facility] Diastolic blood 2022-11-02 20:26:00 65 mm[Hg] Unive rsity of pressure [facility] Heart rate 2022-11-02 20:26:00 53 /min [facility] Body temperature 2022-11-02 20:26:00 36.94 Suzette Univ [facility] Body height 2022-11-02 20:26:00 160 cm [facility] Body weight 2022-11-02 20:26:00 108.41 kg [facility] [place] [facility] BMI 2022-11-02 20:26:00 42.34 kg/m2 [facility] Oxygen saturation in 2022-11-02 20:26:00 96 /min [facility] of Arterial blood by [facility] janet Pulse oximetry Branch Systolic blood 2022-10-27 15:58:00 97 mm[Hg] Univer sity of pressure [facility] Diastolic blood 2022-10-27 15:58:00 60 mm[Hg] Unive rsity of pressure [facility] Heart rate 2022-10-27 15:58:00 77 /min [facility] Body temperature 2022-10-27 15:58:00 36.72 Suzette Univ [facility] Respiratory rate 2022-10-27 15:58:00 20 /min Univ ersity of [facility] Oxygen saturation in 2022-10-27 15:58:00 95 /min [facility] by [facility] janet Pulse oximetry Branch Body weight 2022-10-26 16:00:00 102.059 kg [facility] BMI 2022-10-26 16:00:00 37.44 kg/m2 [facility] Body height 2022-10-26 11:37:00 165.1 cm [facility] Systolic blood 2022-10-18 15:33:00 127 mm[Hg] [facility] of pressure [facility] Diastolic blood 2022-10-18 15:33:00 88 mm[Hg] Unive rsity of pressure [facility] Heart rate 2022-10-18 15:33:00 83 /min [facility] Respiratory rate 2022-10-18 15:33:00 16 /min [facility] Body height 2022-10-18 15:33:00 160 cm [facility] Body weight 2022-10-18 15:33:00 102.059 kg [facility] BMI 2022-10-18 15:33:00 39.86 kg/m2 [facility] Oxygen saturation in 2022-10-18 15:33:00 98 /min [facility] blood by [employer] Pulse oximetry [facility] Body weight 2022-10-10 18:59:00 99.791 kg [facility] BMI 2022-10-10 18:59:00 38.97 kg/m2 [facility] Systolic blood 2022-09-25 19:04:00 120 mm[Hg] [facility] Diastolic blood 2022-09-25 19:04:00 79 mm[Hg] [facility] Heart rate 2022-09-25 19:04:00 78 /min [facility] Body temperature 2022-09-25 19:04:00 37.06 Suzette [facility] Body height 2022-09-25 19:04:00 160 cm [facility] Body weight 2022-09-25 19:04:00 100.699 kg [facility] BMI 2022-09-25 19:04:00 39.33 kg/m2 [facility] Oxygen saturation in 2022-09-25 19:04:00 100 /min [facility] blood by [employer] P[facility]xim[facility] Systolic blood 2022-09-20 15:10:00 130 mm[Hg] [facility] Diastolic blood 2022-09-20 15:10:00 87 mm[Hg] [facility] Heart rate 2022-09-20 15:10:00 83 /min [facility] Body temperature 2022-09-20 15:10:00 36.44 Suzette [facility] Body height 2022-09-20 15:10:00 160 cm [facility] Body weight 2022-09-20 15:10:00 105.688 kg [facility] BMI 2022-09-20 15:10:00 41.27 kg/m2 [facility] Oxygen saturation in 2022-09-20 15:10:00 100 /min [facility] [place] [facility] Oxygen saturation in 2022-09-15 16:03:00 100 /min [facility] blood by [facility] Pulse oximetry Branch Systolic blood 2022-09-15 15:45:00 118 mm[Hg] [facility] pressure [facility] Diastolic blood 2022-09-15 15:45:00 87 mm[Hg] [facility] rs[facility] pressure [facility] Heart rate 2022-09-15 15:40:00 88 /min [facility] Body temperature 2022-09-15 15:40:00 36.11 Suzette [facility] Respiratory rate 2022-09-15 12:26:00 16 /min [facility] Body height 2022-09-15 12:26:00 160 cm [facility] Body weight 2022-09-15 12:26:00 105.9 kg [facility] BMI 2022-09-15 12:26:00 41.36 kg/m2 [facility] Systolic blood 2022-09-15 12:26:00 129 mm[Hg] [facility] Diastolic blood 2022-09-15 12:26:00 85 mm[Hg] [facility] Heart rate 2022-09-15 12:26:00 87 /min [facility] Body temperature 2022-09-15 12:26:00 36.39 Suzette [facility] Respiratory rate 2022-09-15 12:26:00 16 /min [facility] Body height 2022-09-15 12:26:00 160 cm [facility] Body weight 2022-09-15 12:26:00 105.9 kg [facility] BMI 2022-09-15 12:26:00 41.36 kg/m2 [facility] Oxygen saturation in 2022-09-15 12:26:00 99 /min [facility] blood by [place] [employer] janet Pulse oxim[facility] Branch Systolic blood 2022-08-30 18:46:00 121 mm[Hg] [facility] Diastolic blood 2022-08-30 18:46:00 81 mm[Hg] [facility] pressure [facility] Heart rate 2022-08-30 18:46:00 90 /min [facility] [place] [facility] Respiratory rate 2022-08-30 18:46:00 12 /min [facility] Body height 2022-08-30 18:46:00 160 cm [facility] Body weight 2022-08-30 18:46:00 106.142 kg [facility] BMI 2022-08-30 18:46:00 41.45 kg/m2 [facility] Oxygen saturation in 2022-08-30 18:46:00 97 /min [facility] by [place] [employer] janet P[facility] Branch Systolic blood 2022-08-15 16:42:00 114 mm[Hg] [facility] Diastolic blood 2022-08-15 16:42:00 78 mm[Hg] [facility] Heart rate 2022-08-15 16:42:00 88 /min [facility] Body temperature 2022-08-15 16:42:00 36.67 Suzetet [facility] Respiratory rate 2022-08-15 16:42:00 18 /min [facility] Body height 2022-08-15 16:42:00 160 cm [facility] Body weight 2022-08-15 16:42:00 105.915 kg [facility] [place] [facility] BMI 2022-08-15 16:42:00 41.36 kg/m2 [facility] [place] [facility] Oxygen saturation in 2022-08-15 16:42:00 99 /min [facility] by [place] [employer] janet Pulse oxim[facility] Branch Systolic blood 2022-08-11 20:15:00 123 mm[Hg] [facility] Diastolic blood 2022-08-11 20:15:00 83 mm[Hg] Unive rsity of pressure [facility] Heart rate 2022-08-11 20:15:00 80 /min [facility] Oxygen saturation in 2022-08-11 20:15:00 98 /min [facility] by [place] [employer] janet P[facility] o[facility] Branch Body temperature 2022-08-11 16:45:00 36.61 Suzette [facility] [place] [facility] Respiratory rate 2022-08-11 16:45:00 18 /min [facility] Body weight 2022-08-10 18:00:00 102.921 kg [facility] BMI 2022-08-10 18:00:00 40.20 kg/m2 [facility] Body height 2022-08-09 06:30:00 160 cm [facility] Systolic blood 2022-08-04 17:42:00 132 mm[Hg] [facility] Diastolic blood 2022-08-04 17:42:00 84 mm[Hg] [facility] Heart rate 2022-08-04 17:42:00 78 /min [facility] Body temperature 2022-08-04 17:42:00 36.39 Suzette [facility] Respiratory rate 2022-08-04 17:42:00 18 /min [facility] Body height 2022-08-04 17:42:00 160 cm [facility] Body weight 2022-08-04 17:42:00 100.699 kg [facility] BMI 2022-08-04 17:42:00 39.33 kg/m2 [facility] Oxygen saturation in 2022-08-04 17:42:00 100 /min [facility] Systolic blood 2022-08-03 14:06:00 150 mm[Hg] [facility] Diastolic blood 2022-08-03 14:06:00 100 mm[Hg] [facility] rs[facility] Heart rate 2022-08-03 14:06:00 81 /min [facility] [place] [facility] [place] Body temperature 2022-08-03 14:06:00 36.5 Suzette [facility] Respiratory rate 2022-08-03 14:06:00 22 /min [facility] Body height 2022-08-03 14:06:00 160 cm [facility] [place] Body weight 2022-08-03 14:06:00 100.699 kg [facility] BMI 2022-08-03 14:06:00 39.33 kg/m2 [facility] Oxygen saturation in 2022-08-03 14:06:00 100 /min [facility] Arterial blood by [facility] Pulse oximetry Branch Systolic blood 2022-07-27 16:39:00 111 mm[Hg] Univer sity of pressure [facility] Diastolic blood 2022-07-27 16:39:00 73 mm[Hg] Unive rsity of pressure [facility] Heart rate 2022-07-27 16:39:00 81 /min [facility] Body temperature 2022-07-27 16:39:00 35.83 Suzette [facility] Body height 2022-07-27 16:39:00 160 cm [facility] Body weight 2022-07-27 16:39:00 99.791 kg [facility] [place] BMI 2022-07-27 16:39:00 38.97 kg/m2 [facility] Systolic blood 2022-07-17 18:17:00 120 mm[Hg] [facility] Diastolic blood 2022-07-17 18:17:00 75 mm[Hg] Unive rsity of pressure [facility] Heart rate 2022-07-17 18:17:00 76 /min [facility] Body temperature 2022-07-17 18:17:00 36.89 Suzette [facility] Respiratory rate 2022-07-17 18:17:00 18 /min [facility] [place] Body height 2022-07-17 18:17:00 160 cm [facility] Body weight 2022-07-17 18:17:00 100.699 kg [facility] BMI 2022-07-17 18:17:00 39.33 kg/m2 [facility] Oxygen saturation in 2022-07-17 18:17:00 99 /min [facility] [place] [facility] Systolic blood 2022-05-03 19:29:00 115 mm[Hg] [facility] pressure [facility] Diastolic blood 2022-05-03 19:29:00 79 mm[Hg] [facility]ive rsity of pressure [facility] Heart rate 2022-05-03 19:29:00 87 /min [facility] Body temperature 2022-05-03 19:29:00 37.56 Suzette [facility] Body height 2022-05-03 19:29:00 160 cm [facility] Body weight 2022-05-03 19:29:00 103.42 kg [facility] BMI 2022-05-03 19:29:00 40.39 kg/m2 [facility] Oxygen saturation in 2022-05-03 19:29:00 98 /min [facility] blood by [place] [employer] janet Pulse o[facility]etry Branch Systolic blood 2022-05-02 18:24:00 111 mm[Hg] [facility] Diastolic blood 2022-05-02 18:24:00 69 mm[Hg] [facility] Heart rate 2022-05-02 18:24:00 87 /min [facility] Body temperature 2022-05-02 18:24:00 36.56 Suzette [facility] Respiratory rate 2022-05-02 18:24:00 18 /min [facility] Body height 2022-05-02 18:24:00 160 cm [facility] Body weight 2022-05-02 18:24:00 103.42 kg [facility] BMI 2022-05-02 18:24:00 40.39 kg/m2 [facility] Oxygen saturation in 2022-05-02 18:24:00 97 /min [facility] Systolic blood 2022-05-02 00:30:01 130 mm[Hg] [facility] Diastolic blood 2022-05-02 00:30:01 94 mm[Hg] [facility] Heart rate 2022-05-02 00:30:01 90 /min [facility] Respiratory rate 2022-05-02 00:30:01 18 /min [facility] Oxygen saturation in 2022-05-02 00:30:01 100 /min [facility] by [place] [employer] janet P[facility] Body temperature 2022-05-01 22:07:00 37.06 Suzette [facility] Body height 2022-05-01 22:07:00 160 cm [facility] Body weight 2022-05-01 22:07:00 103.42 kg [facility] BMI 2022-05-01 22:07:00 40.39 kg/m2 [facility] Systolic blood 2022-04-26 16:00:00 139 mm[Hg] [facility] Diastolic blood 2022-04-26 16:00:00 100 mm[Hg] Unive rsity of pressure [facility] Heart rate 2022-04-26 16:00:00 69 /min [facility] Oxygen saturation in 2022-04-26 16:00:00 98 /min [facility] by [place] [employer] janet [facility] Branch Respiratory rate 2022-04-26 15:45:00 16 /min [facility] Systolic blood 2022-04-21 14:20:00 112 mm[Hg] [facility] Diastolic blood 2022-04-21 14:20:00 80 mm[Hg] [facility] Heart rate 2022-04-21 14:20:00 77 /min [facility] Body temperature 2022-04-21 14:20:00 36.28 Suzette [facility] Respiratory rate 2022-04-21 14:20:00 18 /min [facility] Body height 2022-04-21 14:20:00 160 cm [facility] Body weight 2022-04-21 14:20:00 102.967 kg [facility] BMI 2022-04-21 14:20:00 40.21 kg/m2 [facility] Oxygen saturation in 2022-04-21 14:20:00 97 /min [facility] blood by [facility] Pulse oximetry Branch Systolic blood 2022-04-19 16:17:00 134 mm[Hg] [facility] Diastolic blood 2022-04-19 16:17:00 88 mm[Hg] Unive rsity of pressure [facility] Heart rate 2022-04-19 16:17:00 86 /min [facility] Body temperature 2022-04-19 16:17:00 36.89 Suzette [facility] Respiratory rate 2022-04-19 16:17:00 16 /min [facility] Body height 2022-04-19 16:17:00 160 cm [facility] Body weight 2022-04-19 16:17:00 102.967 kg [facility] BMI 2022-04-19 16:17:00 40.21 kg/m2 [facility] Oxygen saturation in 2022-04-19 16:17:00 98 /min [facility] blood by [facility] Pulse oximetry Branch Systolic blood 2022-04-07 16:14:00 113 mm[Hg] [facility] Diastolic blood 2022-04-07 16:14:00 74 mm[Hg] [facility] Heart rate 2022-04-07 16:14:00 88 /min [facility] Body temperature 2022-04-07 16:14:00 36.17 Suzette [facility] Respiratory rate 2022-04-07 16:14:00 18 /min [facility] Body weight 2022-04-07 16:14:00 102.059 kg [facility] BMI 2022-04-07 16:14:00 39.87 kg/m2 [facility] Oxygen saturation in 2022-04-07 16:14:00 98 /min [facility] by [facility] Pulse oximetry Branch Systolic blood 2022-03-31 16:17:00 114 mm[Hg] [facility] Diastolic blood 2022-03-31 16:17:00 69 mm[Hg] [facility] Heart rate 2022-03-31 16:17:00 79 /min [facility] Body temperature 2022-03-31 16:17:00 36.72 Suzette [facility] [place] [facility] Respiratory rate 2022-03-31 16:17:00 16 /min [facility] [place] [facility] Oxygen saturation in 2022-03-31 16:17:00 98 /min [facility] by [facility] Pulse oximetry Branch Systolic blood 2022-03-24 16:20:00 119 mm[Hg] [facility] Diastolic blood 2022-03-24 16:20:00 62 mm[Hg] [facility] Heart rate 2022-03-24 16:20:00 77 /min [facility] Body temperature 2022-03-24 16:20:00 36.67 Suzette [facility] [place] [facility] Respiratory rate 2022-03-24 16:20:00 16 /min [facility] [place] [facility] Oxygen saturation in 2022-03-24 16:20:00 98 /min [facility] by [facility] Pulse oximetry Branch Systolic blood 2022-03-15 16:42:00 114 mm[Hg] [facility] Diastolic blood 2022-03-15 16:42:00 59 mm[Hg] [facility] Heart rate 2022-03-15 16:42:00 75 /min [facility] Respiratory rate 2022-03-15 16:42:00 18 /min [facility] [place] [facility] Oxygen saturation in 2022-03-15 16:42:00 95 /min [facility] by [facility] Pulse oximetry Branch Body temperature 2022-03-15 16:12:00 36.22 Suzette [facility] Body height 2022-03-08 15:04:00 160 cm [facility] Body weight 2022-03-08 15:04:00 102.1 kg [facility] BMI 2022-03-08 15:04:00 39.88 kg/m2 Universi ty [facility] Systolic blood 2022-03-15 13:27:00 147 mm[Hg] Univer sity of [facility] Diastolic blood 2022-03-15 13:27:00 81 mm[Hg] Unive rsity of [facility] Heart rate 2022-03-15 13:27:00 85 /min Universi ty [facility] Body temperature 2022-03-15 13:27:00 36.22 Suzette [facility] ersity of [facility] Respiratory rate 2022-03-15 13:27:00 18 /min [facility] 2022-03-08 15:04:00 160 cm [facility] Body weight 2022-03-08 15:04:00 102.1 kg [facility] BMI 2022-03-08 15:04:00 39.88 [facility]m2 [facility] Body height 2022-07-04 11:30:00 157.5 cm [facility] Body weight 2022-07-04 11:30:00 99.791 kg [facility] BMI 2022-07-04 11:30:00 40.24 kg/m2 [facility] HEIGHT 2022-07-04 11:30:00 157.5 cm WEIGHT 2022-07-04 11:30:00 99.791 kg Procedures Procedure Date / Time Performing Clinician Source Performed ASSIGNMENT OF BENEFITS 2023-03-06 Doctor Unassigned, No [facility] [place] 19:49:10 Name [facility] [place] HOME HEALTH - OTHER 2023-03-05 Doctor Unassigned, No [facility] [place] 05:01:00 Name [facility]ES[facility] PHOSPHORUS [facility] 08[facility] MAG[facility]ES[facility]UM [facility] 08:[facility] MAGNESIUM 2023-02-19 [facility] [place] 18:02:00 [facility] BASIC METABOLIC PANEL [facility]23[facility]-19 [facility] (NA, K, CL, CO2, GLUCOSE, 18:02:00 [facility] [place] BUN, CREATININE, CA) XR CHEST 1 VW 2023-02-19 [facility] [place] 16:00:00 [facility] EMG/NCV 2023-02-06 Perez Mackay [facility] 05:01:00 Medical Branch HOME HEALTH 485 2023 Doctor Unassigned, No [facility] 05:01:00 Name Medical [facility] HOME HEALTH - OTHER 2023-02-02 Doctor Unassigned, No [facility] 05:01:00 Name Medical [facility] HOME HEALTH - OTHER 2023-01-28 Doctor Unassigned, No [facility] 05:01:00 Name Medical [facility] LIPASE 2023-01-18 [facility] [place] 16:16:00 [facility] TROPONIN I 2023-01-18 [facility] 16:16:00 Medical Branch COMP. METABOLIC PANEL 2023-01-18 [facility] ([id number]) 16:16:00 Medical Branch CBC WITH DIFF 2023-01-18 [facility] [place] 15:34:00 Medical Branch D-DIMER 2023-01-18 [facility] 15:34:00 Medical Branch FERRITIN SERUM 2023-01-11 [facility] [place] 19:21:00 [facility] IONIZED CALCIUM [facility]01-11 [facility]:21[facility] FREE T4 [facility]23[facility]01-11 [facility] 19:21[facility] TRIIODOTHYRONINE 2023-01-11 [facility] [place] 19:21:00 Medical Branch THYROID STIMULATING 2023-01-11 [facility] [place] HORMONE 19:21:00 Medical [facility] IRON PANEL 2023-01-11 [facility] HOME HEALTH - OTHER 2023-01-04 Doctor Unassigned, No [facility] 05:01:00 Name Medical Branch XR CERVICAL SPINE 2 VW 2023-01-[address] [facility] 15:04:09 Medical Branch HOME HEALTH - OTHER 2023-01-02 Doctor Unassigned, No [facility] 05:01:00 Name Medical Branch MAGNESIUM 2022-12-30 [facility] 09:36:00 [facility] BASIC METABOLIC PANEL 2022-12-30 [facility] (NA, K, CL, CO2, GLUCOSE, 09:36:00 [facility] BUN, CREATININE, CA) CBC WITH DIFF 2022-12-30 [facility] 09:36:00 [facility] CLOSTRIDIUM DIFFICILE 2022-12-29 [facility] 20:52:00 [facility] FECAL PATHOGENS BY PCR 2022-12-29 [facility] 20:52:00 [facility] BLOOD CULTURE SCREEN 2022-12-29 Chloe Bailey [facility] 19:20:00 [facility] FUNGUS (BLOOD) CULTURE 2022-12-[address] [facility] 19:20:[address] [facility] [address] ABDOMEN PELVIS W 2022-12-29 Chloe Bailey [facility] [place] CONTRAST 17:00:00 [facility] URINALYSIS 2022-12-29 Chloe Bailey [facility] 16:32:00 [facility] THROAT CULTURE 2022-12-29 Chloe Bailey [facility] 15:24:00 [facility] RAPID STREP SCREEN FOR 2022-12-[address] [facility] GROUP A 15:24:00 [facility] COVID-19 (ID NOW RAPID 2022-12-[address] [facility] TESTING) 15:24:00 [facility] COMP. METABOLIC PANEL 2022-12-29 Chloe Bailey [facility] ([id number]) 15:19:00 Medical Branch CBC WITH DIFF 2022-12-[address] [facility] 15:19:00 Medical Branch RAPID INFLUENZA A/B 2022-12-29 Chloe Bailey [place] [facility] [place] 15:19:00 Medical [facility] XR CHEST 1 VW 2022-12-[address] [facility] [address] [facility] 15:08:00 Medical Branch CONSENT/REFUSAL FOR 2022-12-29 Doctor Unassigned, No [facility] [place] [facility] 14:08:32 Name Medical [facility] HOME HEALTH - OTHER 2022-12-28 Doctor Unassigned, No [facility] [place] 05:01:00 Name [facility] HOME HEALTH - OTHER 2022-12-19 Doctor Unassigned, No [facility] [place] 05:01:00 Name Medical [facility] HOME HEALTH - OTHER 2022-12-12 Doctor Unassigned, No [facility] [place] 05:01:00 Name [facility] HOME HEALTH - OTHER 2022-11-29 Doctor Unassigned, No [facility] [place] 05:01:00 Name [facility] HOME HEALTH - OTHER 2022-11-16 Doctor Unassigned, No [facility] [place] 05:01:00 Name Medical Branch PHOSPHORUS 2022-11-11 [facility] 07:48:00 Medical Branch MAGNESIUM [facility]22-11-11 [facility] BASIC METABOLIC PANEL 2022-11-11 [facility] (NA, K, CL, CO2, GLUCOSE, 07:48:00 Medica l Branch BUN, CREATININE, CA) CBC WITH DIFF 2022-11-11 [facility] 07:[facility] 10[facility] MAGNESIUM 2022-11-10 [facility] [place] 10:31:00 [facility] THYROID STIMULATING 2022-11-10 [facility] [place] HORMONE 10:31:00 Medical [facility] BASIC METABOLIC PANEL 2022-11-10 [facility] (NA, K, CL, CO2, GLUCOSE, 10:31:00 Medica l Branch BUN, CREATININE, CA) LIPID PANEL ([id number])(TOTAL 2022-11-10 [facility] CHOLESTEROL, 10:31:00 Medical Branch TRIGLYCERIDES, HDL) CBC WITH DIFF 2022-11-10 [facility] [place] 10:31:00 Medical Branch GLYCOSYLATED HEMOGLOBIN 2022-11-10 [facility] (A1C) 10:31:00 Medical [facility] PHOSPHORUS 2022-11-10 [facility] 10:31[facility]00 [facility]ESIUM 2022-11-[facility] 10:31:00 [facility] THYROID STIMULATING 2022-11-10 [facility] HORMONE 10:31:00 Medical Branch BASIC METABOLIC PANEL 2022-11-10 [facility] (NA, K, CL, CO2, GLUCOSE, 10:31:00 Medica l Branch BUN, CREATININE, CA) LIPID PANEL ([id number])(TOTAL 2022-11-10 [facility] CHOLESTEROL, 10:31:00 Medical Branch TRIGLYCERIDES, HDL) CBC WITH DIFF 2022-11-10 [facility] [place] 10:31:00 Medical Branch GLYCOSYLATED HEMOGLOBIN 2022-11-10 [facility] (A1C) 10:31:00 Medical Branch PHOSPHORUS 2022-11-10 [facility] [place] 02:22:00 Medical Branch MAGNESIUM 2022-11-10 [facility] 02:22:00 Medical Branch BASIC METABOLIC PANEL 2022-11-10 [facility] (NA, K, CL, CO2, GLUCOSE, 02:22:00 Medica l Branch BUN, CREATININE, CA) PHOSPHORUS 2022-11-10 [facility] 02:22:00 Medical Branch MAGNESIUM 2022-11-10 [facility] [place] 02:22:00 Medical Branch BASIC METABOLIC PANEL 2022-11-10 [facility] (NA, K, CL, CO2, GLUCOSE, 02:22:00 Medica l Branch BUN, CREATININE, CA) CBC WITH DIFF 2022-11-10 Nancieok [facility] xas 02:21:00 Medical Branch CBC WITH DIFF 2022-11-10 Nancieok [facility] xa 02:21:00 [facility] FL TIME OR 2022-11-09 Rojas, [facility] xa (NON-REPORTABLE) 15:19:20 Medical Branch FL TIME OR 2022-11-09 Rojas, [facility] xa (NON-REPORTABLE) 15:19:20 [facility] AC[facility] ARTERIAL 2022-11-09 [facility] 14:07:00 [facility] ARTERIAL 2022-11-09 [facility] 14:07:00 [facility] ANTERIOR CERVICAL FUSION 2022-11-09 [facility] 12:10:00 [facility] ANTERIOR CERVICAL FUSION 2022-11-09 [facility] 12:10:00 [facility] ABORH CONFIRMATION (LAB 2022-11-09 Ladi [facility] ONLY) 11:59:00 [facility] ABORH CONFIRMATION (LAB 2022-11-09 Ladi [facility] ONLY) 11:59:00 [facility] HB ABO GROUPING 2022-11-09 Ladi [facility] 11:15:00 [facility] HB ABO GROUPING 2022-11-09 Ladi [facility] 11:15:00 [facility] DAY SURGERY - CLEAR CONTE 2022-11-09 Doctor Unassigned, No U [facility] 05:01:00 Name Medical Branch PHOSPHORUS 2022-10-27 Praaksh [facility] xas 10:24:00 Medical Branch MAGNESIUM 2022-10-27 [facility] 10:24:00 [facility] BASIC METABOLIC PANEL 2022-10-27 [facility] (NA, K, CL, CO2, GLUCOSE, 10:24:00 Medica l Branch BUN, CREATININE, CA) CBC WITH DIFF 2022-10-27 [facility] [place] 10:24:00 Medical Branch XR CHEST 1 VW 2022-10-26 [facility] 23:57:36 Medical Branch MR CERVICAL SPINE WO 2022-10-26 Jose [facility] CONTRAST 17:55:59 Medical Branch PHOSPHORUS 2022-10-26 [facility] 15:08:00 Medical Branch MAGNESIUM 2022-10-26 [facility] [place] 15:08:00 [facility] BASIC METABOLIC PANEL 2022-10-26 [facility] (NA, K, CL, CO2, GLUCOSE, 15:08:00 Medica l [place] BUN, CREATININE, CA) CBC WITH DIFF 2022-10-26 [facility] xa 15:08:[address] [facility] [address] ANGIOGRAM NECK 2022-10-26 [facility] 03[facility]40 [facility] CT HEAD WO CONTRAST 2022-10-26 [facility] 02:01[facility]00 [facility] HEPATIC FUNCTION PANEL 2022-10-26 [facility] ([id number]) (ALB,T.PRO,BILI 00:58:00 [facility] T,BU/BC,ALT,AST,ALK PHOS) BASIC METABOLIC PANEL 2022-10-26 [facility] (NA, K, CL, CO2, GLUCOSE, 00:58:00 Silvia [facility] BUN, CREATININE, CA) CBC WITH DIFF 2022-10-26 [facility] 00:58[facility]00 [facility] CONSENT/REFUSAL FOR 2022-10-25 Doctor Unassigned, [facility] DIAGNOSIS AND TREATMENT 23:57:54 Name [facility] NM MYOCARDIUM PERFUSION 2022-10-19 Latasha, [facility] STRESS AND REST 18:47:00 [facility] NM MYOCARDIUM PERFUSION 2022-10-19 Latasha, [facility] STRESS AND REST 18:47:00 [facility] NM MYOCARDIUM PERFUSION 2022-10-19 Latasha, [facility] STRESS AND REST 18:47:00 [facility] NM MYOCARDIUM PERFUSION 2022-10-19 Merritt Pagan [facility] STRESS AND REST 18:47:[address] [place] [address] CERVICAL SPINE WO 2022-10-14 Meek Garcia [facility] CONTRAST 16:21:00 Medical Branch HB CREATININE SERUM/BLOOD 2022-10-10 Madison Hyatt [facility] [place] [facility] FOR IMAGING 15:25:00 Medical [facility] HEALTH 485 2022-10-07 Doctor Unassigned, No [facility] 05:01:00 Name Medical [place] AUTHORIZATION FOR RELEASE 2022-09-29 Doctor Unassigned, No [facility] 05:01:00 Name [facility] HEALTH - OTHER 2022-09-27 Doctor Unassigned, No Univer sity [facility] 05:01:00 Name [facility] - OTHER 2022-09-23 Doctor Unassigned, No [facility] 05:01:00 Name [facility] EXTERNAL PROVIDER RECORDS 2022-09-22 Doctor Unassigned, No [facility] 05:01:00 Name [facility] PATIENT FINANCIAL 2022-09-20 Doctor Unassigned, No Uni [facility] [place] POLICY 15:08:07 Name [facility] MAGNETIC RESONANCE 2022-09-15 Anesthesiology [facility] IMAGING UNDER ANESTHESIA 22:00:00 [facility] MR CERVICAL SPINE WO 2022-09-15 Demetris Santos [facility] CONTRAST 15:49:23 Medical Branch INTUBATION 2022-09-15 Romie Adkins [facility] xa 14:31:00 Medical Branch CONSENT/REFUSAL FOR 2022-09-15 Doctor Unassigned, No [facility] DIAGNOSIS AND TREATMENT 12:22:34 Name Medical Branch CONSENT/REFUSAL FOR 2022-09-15 Doctor Unassigned, No [facility] DIAGNOSIS AND TREATMENT 12:22:34 Name Medical [place] ASSIGNMENT OF BENEFITS 2022-09-15 Doctor Unassigned, No [facility] [place] 12:22:03 Name Medical Branch ASSIGNMENT OF BENEFITS 2022-09-15 Doctor Unassigned, No [facility] [place] 12:22:03 Name Medical [place] EXTERNAL PROVIDER RECORDS 2022-09-07 Doctor Unassigned, No [facility] 06:01:00 Name [facility] HEALTH - OTHER 2022-08-23 Doctor Unassigned, No [facility] [place] 06:01:00 Name Medical Branch ASSIGNMENT OF BENEFITS 2022-08-18 Doctor Unassigned, No [facility] [place] 15:21:14 Name Medical Branch HOME HEALTH - OTHER 2022-08-15 Doctor Unassigned, No [facility] [place] 06:01:00 Name Medical Branch DME/SUPPLY JUSTIFICATION 2022-08-14 Doctor Unassigned, No [facility] [place] 06:01:00 Name Medical Branch BLOOD CULTURE SCREEN 2022-08-10 [facility] 21:54:00 Medical Branch BLOOD CULTURE SCREEN 2022-08-10 [facility] 20:49:00 [facility] BASIC METABOLIC PANEL 2022-08-10 [facility] (NA, K, CL, CO2, GLUCOSE, 09:30:00 [facility] BUN, CREATININE, CA) CBC WITH DIFF 2022-08-10 [facility] 09:30:00 [facility] MRSA / MSSA SCREEN BY 2022-08-10 [facility] PCR, NARES 02:20:00 [facility] RESPIRATORY PANEL BY PCR 2022-08-09 [facility] 22:31:00 [facility] PROCALCITONIN 2022-08-09 [facility] xa 22:30:00 [facility] PNEUMOCOCCAL ANTIGEN 2022-08-09 [facility] 22:25:00 [facility] TRANSTHORACIC ECHO (TTE) 2022-08-09 Wisam Kelly [facility] COMPLETE 17:46:00 [facility] URINE CULTURE 2022-08-09 [facility] 12:45:00 [facility] BLOOD CULTURE SCREEN 2022-08-09 [facility] 09:18:00 [facility] TROPONIN I 2022-08-09 [facility] 09:18:00 [facility] BLOOD CULTURE WORKUP 2022-08-09 [facility] 09:18:00 [facility] GRAM POSITIVE BLOOD 2022-08-[address] [facility] PATHOGENS DNA 09:18:00 Medical Branch PROBE-ANAEROBIC HOME HEALTH - OTHER 2022-08-09 Doctor Unassigned, No [facility] [place] 06:01:[address] [place] [address] ABDOMEN PELVIS W 2022-08-09 Chloe Bailey [place] [facility] [place] CONTRAST 00:50:00 Medical Branch TROPONIN I 2022-08-09 Chloe Bailey [facility] xas 00:42:00 Medical Branch URINALYSIS 2022-08-08 Chloe Bailey [facility] xas 23:17:00 Medical Branch XR CHEST 1 VW 2022-08-08 Chloe Bailey [facility] xas 22:37:29 [facility] HB ECG ROUTINE & RHYTHM 2022-08-08 Chloe Bailey [facility] STRIP 21:41:01 Medical Branch LIPASE 2022-08-08 Chloe Bailey [facility] xas 21:32:00 Medical Branch TROPONIN I 2022-08-08 Chloe Bailey [facility] xas 21:32:00 [facility] COMP. METABOLIC PANEL 2022-08-08 Chloe Bailey [facility] ([id number]) 21:32:00 Medical Branch CBC WITH DIFF 2022-08-08 Chloe Bailey [facility] xas 21:32:00 [facility] RAPID INFLUENZA A/B 2022-08-08 Chloe Bailey [place] [facility] 21:32:00 [facility] COVID-19 (ID NOW RAPID 2022-08-[address] [facility] TESTING) 21:32:00 [facility] LAB ONLY COVID 2022-08-08 Chloe Bailey [facility] xa INTERPRETATION 21:32:00 Medical Branch CONSENT/REFUSAL FOR 2022-08-08 Doctor Unassigned, No [facility] DIAGNOSIS AND TREATMENT 20:19:45 Name [facility] HOME HEALTH 485 2022-08-08 Doctor Unassigned, No [facility] 06:01:00 Name [facility] HEALTH - OTHER 2022-08-04 Doctor Unassigned, No [facility] 06:01:00 Name [facility] CT HEAD WO CONTRAST 2022-08-03 Elaine Toure [place] [facility] [place] 14:51:48 Medical Branch CONSENT/REFUSAL FOR 2022-08-03 Doctor Unassigned, No [facility] DIAGNOSIS AND TREATMENT 14:02:22 Name Medical Branch INSURANCE CORRESPONDENCE 2022-08-01 Doctor Unassigned, No [facility] [place] 06:01:00 Name Medical Branch PATIENT QUESTIONNAIRE 2022-07-27 Doctor Unassigned, No [facility] [place] 06:01:00 Name Medical Branch HOME HEALTH - OTHER 2022-07-18 Doctor Unassigned, No [facility] [place] 06:01:00 Name Medical Branch XR CERVICAL SPINE 5 VW [facility]22[facility]07-17 [facility]06 Medical Branch XR SHOULDER 2+ VW LEFT 2022-07-17 Olena [facility] 19:03:06 Medical Branch EXTERNAL PROVIDER RECORDS 2022-07-17 Doctor Unassigned, No [facility] 06:01:00 Name Medical Branch HOME HEALTH - OTHER 2022-07-04 Doctor Unassigned, No [facility] [place] 06:01:00 Name Medical Branch HOME HEALTH - OTHER 2022-06-26 Doctor Unassigned, No [facility] [place] 06:01:00 Name Medical Branch HOME HEALTH - OTHER 2022-06-13 Doctor Unassigned, No [facility] [place] 06:01:00 Name Medical Branch HOME HEALTH - OTHER 2022-05-30 Doctor Unassigned, No [facility] [place] 06:01:00 Name Medical Branch HOME HEALTH - OTHER 2022-05-03 Doctor Unassigned, No [facility] [place] 05:01:00 Name Medical Branch INSURANCE CORRESPONDENCE 2022-05-02 Doctor Unassigned, No [facility] [place] 05:01:00 Name Medical Branch IR TUNNELED OR 2022-04-[address] [facility] NON-TUNNELED CVA WITH 15:35:17 Medical Br anch PORT/PUMP CENTRAL/PERIPHERAL HOME HEALTH - OTHER 2022-04-25 Doctor Unassigned, No [facility] [place] 05:01:00 Name Medical Branch REFERRAL- 2022-04-24 Doctor Unassigned, No [facility] REQUEST/RESPONSE 05:01:[address] ANGIOGRAM NECK 2022-04-21 Radhames Acevedo [facility] 16:31:[address] ANGIOGRAM CHEST 2022-04-21 Radhames Acevedo [facility] 16:29:40 Medical Branch MEDICATION CORRESPONDENCE 2022-04-20 Doctor Unassigned, No [facility] 05:01:00 Name Medical Branch HOME HEALTH - OTHER 2022-04-18 Doctor Unassigned, No [facility] 05:01:00 Name Medical Branch HOME HEALTH 485 2022-04-10 Doctor Unassigned, No [facility] 05:01:00 Name Medical Branch PHOSPHORUS 2022-04-07 Tanner, Jonathan [facility] [place] 16:40:00 Medical Branch TRIGLYCERIDES 2022-04-07 Tanner, Jonathan [facility] [place] 16:40:00 Medical Branch MAGNESIUM 2022-04-07 Tanner, Jonathan [facility] [place] 16:40:00 Medical Branch COMP. METABOLIC PANEL 2022-04-07 Mady Tannerbeth A Uni [facility] ([id number]) 16:40:00 Medical Branch CBC WITH DIFF 2022-04-07 Flores Jonathan [facility] [place] 16:40:00 Medical Branch PHOSPHORUS 2022-03-31 Tanner, Jonathan [facility] [place] 16:37:00 Medical Branch TRIGLYCERIDES 2022-03-31 Tanner, Jonathan [facility] [place] 16:37:00 Medical Branch MAGNESIUM 2022-03-31 Tanner, Jonathan [facility] [place] 16:37:00 Medical Branch COMP. METABOLIC PANEL 2022-03-31 Jessica Tannerzabeth A Uni [facility] ([id number]) 16:37:00 Medical Branch CBC WITH DIFF 2022-03-31 Flores Jonathan [facility] [place] 16:37:00 Medical Branch REFERRAL- 2022-03-29 Doctor Unassigned, No [facility] REQUEST/RESPONSE 05:01:00 Name Medical Branch PHOSPHORUS 2022-03-24 Flores Jonathan A [facility] [place] 16:36:00 Medical Branch TRIGLYCERIDES 2022-03-24 Tanner, Jonathan [facility] [place] 16:36:00 Medical Branch MAGNESIUM 2022-03-24 Flores, Jonathan [facility] [place] 16:36:00 Medical Branch COMP. METABOLIC PANEL 2022-03-24 Jonathan Tanner Uni versity [facility] ([id number]) 16:36:00 Medical Branch CBC WITH DIFF 2022-03-[address] [facility] 16:36:00 Medical Branch HEMAPORT REMOVAL 2022-03-15 [facility] 14:55:00 Medical Branch DAY SURGERY - ADC 2022-03-15 Doctor Unassigned, No [facility] 05:01:00 Name Medical Branch CONSENT/REFUSAL FOR 2022-03-14 Doctor Unassigned, No Univer sity [facility] DIAGNOSIS AND TREATMENT 16:26:11 Name Medical Branch CONSENT/REFUSAL FOR 2022-03-14 [facility] 16:26:11 Name Medical Branch ASSIGNMENT OF BENEFITS 2022-03-14 Doctor Unassigned, No Uni versity [facility] 16:25:42 Name Medical Branch ASSIGNMENT OF BENEFITS 2022-03-14 Doctor [facility]assigned, No [facility] 16:25:42 Name Medical Branch Plan of Care Planned Activity Planned Date Details Comments Source Future Scheduled 2023-07-[address] [facility] Test 00:00:00 [facility] r Screening (12+) [code = Tobacco Cessation Counseling and Screening (12+)] Future Scheduled 2022-07-[address] [facility] Test 00:00:00 (12+) [code = [facility] DEPRESSION SCREENING (12+)] Future Scheduled 2022-03-[address] [facility] Test 00:00:00 (#1) [code = [facility] INFLUENZA VACCINE (#1)] Future Scheduled [address] [facility] 00:00:00 malignant neoplasm of Medica l Center cervix (procedure) [code = 350506637] Future Scheduled [address] [facility] 00:00:00 (procedure) [code = [facility] 63209857] Future Scheduled 2001 DTAP/TDAP/TD VACCINES CH I [...] Type Clinicians Facility Department ID 2022-04-06 Outpatient [facility] [id number] [place] 13:10:43 0225 [facility] 2022-03-07 Outpatient Nagi KERNS [facility] [place] [id number] Univers 14:58:54 ISIS mervin [facility] 2021-11-30 Outpatient Nagi KERNS [facility] [place] [id number] Univers 11:44:30 ISIS mervin [facility] 2021-05-09 Outpatient Nagi KERNS [facility] [place] [id number] Univers 17:01:42 ISIS [facility] 2021-05-08 Outpatient Nagi SWANSON [facility] [place] [id number] Univers 02:32:31 YARED [facility] 2021-05-05 Emergency [facility] [id number] Univers 11:30:57 [facility] 2023-05-14 2023-05-14 Outpatient LOWELL SERRANO [facility] [id number] Univers 10:20:00 10:20:00 LOWELL PEREZ [facility] 2023-03-19 2023-03-19 [facility] [id number] Univers 00:00:00 00:00:00 [facility] [id number] [facility] [place] 4.2.7.2.686 Ernst as ЕКАТЕРИНА?BLEA [id number] [address] MEDICAL OFFICE BUILDING 2023-03-15 2023-03-15 Outpatient LOWELL SERRANO [facility] [id number] Univers 09:40:00 09:40:00 LOWELL PEREZ [facility] 2023-03-09 2023-03-09 Outpatient Nagi PEREZ LOWELL [facility] [id number] Univers 11:20:00 12:14:33 LOWELL PEREZ ity [facility] 2023-03-09 2023-03-09 Office Chris [facility] [id number] Univers 11:20:00 12:14:33 Visit Lowell HEALTH 350.1.13.10 ity of [place] 4.2.7.2.686 Ernst as ЕКАТЕРИНА?BLEA [id number] Ar dickarol [address] MEDICAL OFFICE BUILDING 2023-03-08 2023-03-08 Outpatient R VANITA [facility] [id number] Univers 09:00:00 10:06:34 KO itmervin [facility] 2023-03-08 2023-03-08 Ancillary Bertrand Peng [facility] 1.2. [id number] [id number] Univers 09:00:00 10:06:34 Visit Ko Graves HEALTH 350.1.13.10 [place] [phone] [address] ([facility]) 2023-03-08 2023-03-08 Ancillary Moe Armstrong [facility] 1.2.84 0.114 [id number] Univers 08:15:00 09:00:00 Visit Ko Graves HEALTH 350.1.13.10 [place] [id number] [address] ([facility]) 2023-03-08 2023-03-08 Outpatient Nagi GRAVES [facility] [id number] Univers 08:15:00 08:15:00 KO itmervin [facility] 2023-03-06 2023-03-06 Outpatient Nagi ENAMORADO [facility] [id number] Univers 15:00:00 15:50:43 KRISTOFER itmervin [facility] 2023-03-06 2023-03-06 Office Rosemary [facility] 1.2.840.114 [id number] Univers 15:00:00 15:50:43 Visit Kristofer PRIMARY 350.1.13.10 [place] [id number] Ar dical [address] [place] [address] 2023-03-06 2023-03-06 Orders Doctor YARED 1.2.840.114 [id number] Univers 00:00:00 00:00:00 Only Unassigned, PENELOPE 350.1.13.10 ity of [facility] 4.2.7.2.686 Ernst as [id number] [facility] [address] [place] 2023-03-05 2023-03-05 Orders Doctor YARED 1.2.840.114 [id number] Univers 00:00:00 00:00:00 Only Unassigned, PENELOPE 350.1.13.10 ity of [facility] 4.2.7.2.686 Ernst as [id number] [address] 2023-03-02 2023-03-02 Telephone [facility] [id number] Univers 00:00:00 00:00:00 [place] HEALTH 350.1.13.10 ity of [place] 4.2.7.2.686 Ernst as ЕКАТЕРИНА?BLEA [id number] [address] MEDICAL OFFICE [facility] 2023-02-28 2023-02-28 Out[facility] [id number] Univers 11:00:00 11:00:00 KRISTOFER [facility] 2023-02-27 2023-02-27 Telephone [facility] [id number] Univers 00:00:00 00:00:00 [place] HEALTH 350.1.13.10 ity of [place] 4.2.7.2.686 Ernst as ЕКАТЕРИНА?BLEA [id number] [address] MEDICAL OFFICE [facility] 2023-02-26 2023-02-26 Transition KARLA Guerrero 1.2.840.114 [id number] Univers 00:00:00 00:00:00 of Care Twyla RENNER 350.1.13.10 [place] [id number] [facility] [address] [place] 2023-02-19 2023-02-23 Inpatient [facility] CHRISTIANE [id number] Univers 07:31:00 12:15:00 RUIQING [facility] 2023-02-19 2023-02-23 Hospital Beck Valdes 1.2.840.114 [id number] Univers 07:31:00 12:15:00 Encounter Cynthia Karol Clarke PENELOPE 350.1.13.10 ity of [facility] 4.2.7.2.686 Ernst as [phone] [facility] [address] [place] 2023-02-20 2023-02-20 Letter Chris [facility] 1.2.840.114 [id number] Univers 00:00:00 00:00:00 (Out) [facility] 350.1.13.10 ity of [place] 4.2.7.2.686 Ernst as ЕКАТЕРИНА?BLEA [id number] [address] MEDICAL OFFICE BUILDING 2023-02-19 2023-02-19 Letter Barney [facility] 1.2.840.114 [id number] Univers 00:00:00 00:00:00 (Out) Leora J SPECIALTY 350.1.13.10 it[place] of [place] [id number] [address] 2023-02-19 2023-02-19 Letter Barney [facility] 1.2.840.114 [id number] Univers 00:00:00 00:00:00 (Out) Leora J SPECIALTY 350.1.13.10 [place] of [place] [id number] [address] 2023-02-19 2023-02-19 Telephone Barney [facility] 1.2.824.042 [id number] Univers 00:00:00 00:00:00 Leora J SPECIALTY 350.1.13.10 [place] of [place] [id number] [address] 2023-02-12 2023-02-12 Outpatient R LOWELL PEREZ [facility] [id number] Univers 11:00:00 12:03:33 LOWELL PEREZ [facility] 2023-02-12 2023-02-12 Office Chris [facility] 1.2.840.114 [id number] Univers 11:00:00 12:03:33 Visit [place] HEALTH 350.1.13.10 ity of [place] 4.2.7.2.686 Ernst as ЕКАТЕРИНА?BLEA [id number] Ar florentin GARCIA [address] [place] MEDICAL OFFICE BUILDING 2023-02-08 2023-02-08 Telephone [facility] 1.2.285.146 [id number] Univers 00:00:00 00:00:00 Leora J SPECIALTY 350.1.13.10 ity of [place] [id number] [facility] [address] [place] 2023-02-07 2023-02-07 Outpatient R [facility] [id number] Univers 09:45:00 09:45:00 ity [facility] 2023-02-07 2023-02-07 [facility] [id number] Univers 09:00:00 09:00:00 KO ity [facility] 2023-02-06 2023-02-06 Outpatient [facility] [id number] Univers 10:30:00 23:59:00 [facility] 2023-02-06 [facility] [id number] [id number] Univers 10:30:00 23:59:00 Encounter Sonia HEALTH 350.1.13.10 [place] of [place] [id number] [facility] [address] [place] OFFICE BUILDING 2023-02-05 2023-02-05 Office EVAN Pagan [id number] Univers 16:00:00 16:30:00 Visit Merritt Y HEALTH 350.1.13.10 i ty of [place] [id number] [facility] [address] [place] 2023-02-05 2023-02-05 Outpatient R [facility] [id number] Univers 16:00:00 16:00:00 [facility] 2023 Orders Doctor YARED 1.2.840.114 [id number] Univers 00:00:00 00:00:00 Only Unassigned, PENELOPE 350.1.13.10 ity of [facility] 4.2.7.2.686 Ernst as [id number] [facility] [address] [place] 2023-02-02 2023-02-02 Telephone [facility] 1.2.840.114 [id number] Univers 00:00:00 00:00:00 Alex ROSEN 350.1.13.10 i ty [facility] 4.2.7.2.[place] [phone] Ar dical NAL 044 [facility] 2023-02-02 2023-02-02 Orders Doctor YARED 1.2.840.114 [id number] Univers 00:00:00 00:00:00 Only Unassigned, PENELOPE 350.1.13.10 ity of [facility] 4.2.7.2.686 Ernst as [id number] [facility] [address] [place] 2023-02-01 2023-02-01 Hospital [facility], [facility] 1.2.840.114 [id number] Univers 09:17:47 23:59:00 Encounter Lowell [facility] 350.1.13.10 ity of [facility] 4.2.7.2.686 [place] [id number] [facility] [address] [place] 2023-02-01 2023-02-01 Outpatient R LOWELL PEREZ [facility] [id number] Univers 00:00:00 23:59:00 LOWELL PEREZ [facility] 2023-01-31 2023-01-31 Office [facility] 1.2.840.114 [id number] Univers 10:00:00 11:00:00 Visit Steph PRIMARY 350.1.13.10 it y of C[place] 4.2.7.2.686 [place] [id number] Ar dical [address] 2023-01-31 2023-01-31 [facility] [id number] Univers 10:00:00 10:00:00 STEPH ity [facility] 2023-01-29 2023-01-29 Telephone Kley, [facility] 1.2.190.538 [id number] Univers 00:00:00 00:00:00 Lowell HEALTH 350.1.13.10 ity of [place] 4.2.7.2.686 Ernst as ЕКАТЕРИНА?BLEA [id number] [address] MEDICAL OFFICE BUILDING 2023-01-28 2023-01-28 Orders Doctor YARED 1.2.840.114 [id number] Univers 00:00:00 00:00:00 Only Unassigned, PENELOPE 350.1.13.10 ity of [facility] 4.2.7.2.686 Ernst as [phone] [address] 2023-01-26 2023-01-26 Telephone [facility] 1.2.633.510 [id number] Univers 00:00:00 00:00:00 Lowell HEALTH 350.1.13.10 ity of [place] 4.2.7.2.686 Ernst as ЕКАТЕРИНА?BLEA [id number] [address] MEDICAL OFFICE [facility] 2023-01-26 2023-01-26 Telephone [facility] 1.2.298.431 [id number] Univers 00:00:00 00:00:00 Lowell HEALTH 350.1.13.10 ity of [place] 4.2.7.2.686 Ernst as ЕКАТЕРИНА?BLEA [id number] [address] MEDICAL OFFICE [facility] 2023-01-24 2023-01-24 Outpatient R LAURA [facility] [id number] Univers 13:15:00 13:54:31 JUAN kinney of [facility] 2023-01-24 2023-01-24 Office [facility] 1.2.840.114 [id number] Univers 13:15:00 13:54:31 Visit Juan CARTER 350.1.13.10 ity of [place] 4.2.7.2.686 [place] [id number] [address] [facility] 2023-01-24 2023-01-24 Telephone [facility] 1.2.492.903 [id number] Univers 00:00:00 00:00:00 [facility] 350.1.13.10 ity of [place] 4.2.7.2.686 Ernst as ЕКАТЕРИНА?BLEA [id number] Ar florentin [facility] [address] MEDICAL OFFICE [facility] 2023-01-23 2023-01-23 Outpatient R CRYSTAL BRIAN [facility] 1 [id number] Univers 13:00:00 13:00:00 BRIAN ROJAS [facility] 2023-01-18 2023-01-18 Emergency X KASSIDY, [facility] ERT [id number] Univers 10:11:00 13:13:00 GUMARO [facility] 2023-01-18 2023-01-18 Emergency [facility] 1.2.840.114 10 [id number] Univers 10:11:00 13:13:00 Gumaro [place] 350.1.13.10 i ty of [place] 4.2.7.2.686 [place] [facility] [id number] [address] 2023-01-17 2023-01-17 Telephone [facility] 1.2.171.650 [id number] [id number] Univers 00:00:00 00:00:00 [facility] 350.1.13.10 ity of [place] 4.2.7.2.686 Ernst as ЕКАТЕРИНА?BLEA [phone] [facility] 044 [facility] 2023-01-11 2023-01-11 Edm Operator Lab, Ang - Db [facility] 1.2.840.1 14 [id number] Univers 14:30:00 14:30:00 Visit Chris Lowell [facility] 350.1.13.10 ity of [place] 4.2.7.2.686 Ernst as ЕКАТЕРИНА?BLEA [phone] Ar florentin MOJICA 353 [facility] OFFICE [facility] 2023-01-11 2023-01-11 Outpatient R LOWELL PEREZ [facility] [id number] Univers 13:40:00 14:16:42 CHRIS LOWELL [facility] 2023-01-11 2023-01-11 Office [facility] 1.2.840.114 [id number] Univers 13:40:00 14:16:42 Visit [facility] 350.1.13.10 ity of [place] 4.2.7.2.686 Ernst as ЕКАТЕРИНА?BLEA [id number] [address] MEDICAL OFFICE [facility] 2023-01-05 2023-01-05 Telephone [facility] 1.2.073.633 [id number] Univers 00:00:00 00:00:00 [facility] 350.1.13.10 ity of [place] 4.2.7.2.686 Ernst as ЕКАТЕРИНА?BLEA [id number] [address] [facility] 2023-01-04 2023-01-04 Outpatient R CUAUHTEMOC [facility] [id number] Univers 16:00:00 14:05:23 SHAUN timmymervin [facility] 2023-01-04 2023-01-04 Telephone [facility] 1.2.840.114 1 [id number] Univers 00:00:00 00:00:00 Alex ROSEN 350.1.13.10 i ty of [place] 4.2.7.2.686 [place] [facility] [id number] [address] 2023-01-04 2023-01-04 Orders Doctor YRAED 1.2.840.114 [id number] Univers 00:00:00 00:00:00 Only Unassigned, PENELOPE 350.1.13.10 ity of [facility] 4.2.7.2.686 Ernst as [phone] [facility] [address] [place] 2023-01-03 2023-01-03 Outpatient R BRIAN ROJAS [facility] 1 [id number] Univers 09:50:11 23:59:00 BRIAN ROJAS [facility] 2023-01-03 2023-01-03 [facility] 1.2.840.114 [id number] Univers 09:45:00 23:59:00 Encounter Brian ROSEN 350.1.13.10 ity of [place] 4.2.7.2.686 [place] CAMPUS [id number] [facility] [address] [place] 2023-01-02 2023-01-02 Orders Doctor YARED 1.2.840.114 [id number] Univers 00:00:00 00:00:00 Only Unassigned, PENELOPE 350.1.13.10 ity of [facility] 4.2.7.2.686 Ernst as [phone] [facility] [address] [place] 2023-01-01 2023-01-01 Patient [facility] 1.2.840.114 [id number] Univers 00:00:00 00:00:00 Secure [facility] 350.1.13.10 ity of [place] 4.2.7.2.686 Ernst as ЕКАТЕРИНА?BLEA [id number] [address] MEDICAL OFFICE BUILDING 2022-12-29 2022-12-30 Outpatient X [facility] [id number] Univers 09:16:00 15:13:00 AVELINO ity [facility] 2022-12-29 2022-12-30 Emergency Chloe Bailey [facility] 1.2.840.1 14 [id number] Univers 09:16:00 15:13:00 Avelino Jones 350.1.13.10 ity of [facility] 4.2.7.2.686 [place] [phone] [facility] [address] 2022-12-29 2022-12-29 Outpatient R LAURA [facility] [id number] Univers 15:00:00 15:00:00 JUAN ity of [facility] 2022-12-28 2022-12-28 Orders Doctor LAWSON 1.2.840.114 [id number] Univers 00:00:00 00:00:00 Only Unassigned, PENELOPE 350.1.13.10 ity of [facility] 4.2.7.2.686 Ernst as [id number] [address] 2022-12-22 2022-12-22 Siva Tanner [facility] 1.2.840.114 [id number] Univers 00:00:00 00:00:00 Jonathan ROSEN 350.1.13.10 ity of [facility] 4.2.7.2.686 [place] [facility] [phone] [place] [address] [address] BUILDING 2022-12-21 2022-12-21 Telephone [facility] 1.2.840.114 1 [id number] Univers 00:00:00 00:00:00 Alex ROSEN 350.1.13.10 i ty of [place] 4.2.7.2.686 [place] [phone] [address] 2022-12-21 2022-12-21 Telephone [facility] 1.2.840.114 1 [id number] Univers 00:00:00 00:00:00 Alex ROSEN 350.1.13.10 i ty of [place] 4.2.7.2.686 [place] [id number] [address] 2022-12-19 2022-12-19 Orders Doctor LAWSON 1.2.840.114 [id number] Univers 00:00:00 00:00:00 Only Unassigned, PENELOPE 350.1.13.10 ity of [facility] 4.2.7.2.686 Ernst as [id number] [address] 2022-12-12 2022-12-12 Orders Doctor YARED 1.2.840.114 [id number] Univers 00:00:00 00:00:00 Only Unassigned, PENELOPE 350.1.13.10 ity of [facility] 4.2.7.2.686 Ernst as [id number] [address] 2022-12-07 2022-12-07 Outpatient R LOWELL PEREZ [facility] [id number] Univers 11:00:00 11:43:53 LOWELL PEREZ [facility] 2022-12-07 2022-12-07 Office [facility] 1.2.840.114 [id number] Univers 11:00:00 11:43:53 Visit [facility] 350.1.13.10 ity of [place] 4.2.7.2.686 Ernst as ЕКАТЕРИНА?BLEA [id number] [address] OFF[address] [facility] 2022-12-07 2022-12-07 Letter [facility] 1.2.840.114 [id number] Univers 00:00:00 00:00:00 (Out) [facility] 350.1.13.10 ity of [place] 4.2.7.2.686 Ernst as ЕКАТЕРИНА?BLEA [id number] [address] MEDICAL OFFICE BUILDING 2022-12-07 2022-12-07 Refill [facility] 1.2.840.114 [id number] Univers 00:00:00 00:00:00 [facility] HEALTH 350.1.13.10 it y of [place] 4.2.7.2.686 [place] [id number] [address] OFFICE BUILDING 2022-12-01 2022-12-01 Telephone Lora [facility] 1.2.840.114 1 [id number] Univers 00:00:00 00:00:00 Peter XAVI 350.1.13.10 i ty of [facility] 4.2.7.2.686 [place] [id number] [address] 2022-11-29 2022-11-29 Telephone [facility] 1.2.566.277 [id number] [id number] Univers 00:00:00 00:00:00 [facility] 350.1.13.10 ity of [place] 4.2.7.2.686 Ernst as ЕКАТЕРИНА?BLEA [id number] [address] [facility] 2022-11-29 2022-11-29 Orders Doctor YARED 1.2.840.114 [id number] Univers 00:00:00 00:00:00 Only Unassigned, PENELOPE 350.1.13.10 ity of [facility] 4.2.7.2.686 Ernst as [id number] [address] 2022-11-24 2022-11-24 Outpatient R BRIAN ROJAS [facility] 1 [id number] Univers 15:45:00 13:39:29 BRIAN ROJAS of [facility] 2022-11-22 2022-11-22 Office [facility] 1.2.840.114 [id number] Univers 11:30:00 12:00:00 Visit [facility] 350.1.13.10 ity of [place] 4.2.7.2.686 [place] [id number] [facility] [address] OFFICE BUILDING 2022-11-22 2022-11-22 Outpatient R ROSEMARY [facility] [id number] Univers 11:30:00 11:30:00 KRISTOFER y [facility] 2022-11-17 2022-11-17 Telephone [facility] 1.2.829.597 [id number] Univers 00:00:00 00:00:00 Lowell HEALTH 350.1.13.10 ity of [place] 4.2.7.2.686 Ernst as ЕКАТЕРИНА?BLEA [id number] [address] MEDICAL OFFICE BUILDING 2022-11-16 2022-11-16 Outpatient R SHERLEY [facility] [id number] Univers 11:30:00 11:30:00 ALLA [facility] 2022-11-16 2022-11-16 Orders Doctor YARED 1.2.840.114 [id number] Univers 00:00:00 00:00:00 Only Unassigned, [place] 350.1.13.10 ity of [facility] 4.2.7.2.686 Ernst as [id number] [facility] [address] 2022-11-09 2022-11-11 Outpatient R [facility] GARO [id number] Univers 05:22:00 14:19:00 TASO ity of [facility] 2022-11-09 2022-11-11 [facility] Brian Rojas [facility] 1.2.840.114 [id number] Univers 05:22:00 14:19:00 Encounter [facility] 350.1.13.10 ity of [place] 4.2.7.2.686 [place] [phone] [facility] [address] ([facility]) 2022-11-09 2022-11-09 Surgery [facility] 1.2.840.114 [id number] Univers 06:55:00 11:26:00 [facility] 350.1.13.10 it y of [place] 4.2.7.2.686 [place] [phone] [facility] [address] ([facility]) 2022-11-092022-11-09 Orders Doctor YARED 1.2.840.114 [id number] Univers 00:00:00 00:00:00 Only Unassigned, PENELOPE 350.1.13.10 ity of [facility] 4.2.7.2.686 Ernst as [id number] [address] 2022-11-07 2022-11-07 Hospital [facility] 1.2.157.718 [id number] Univers 13:15:00 23:59:00 Encounter [place] SPECIALTY 350.1.13.10 ity of [facility] 4.2.7.2.686 [place] CENTER AT [id number] Ar florentin HANSON 809 [facility] 2022-11-07 2022-11-07 Outpatient [facility] [id number] Univers 13:10:00 14:37:04 PEREZ kinney [facility] 2022-11-07 2022-11-07 Office [facility] 1.2.840.114 [id number] Univers 13:10:00 14:37:04 Visit Perez SPECIALTY 350.1.13.10 ity of [facility] 4.2.7.2.686 [place] CENTER AT [phone] Ar florentin HANSON 198 [facility] 2022-11-06 2022-11-06 Pre-Anesth Call, [facility] 1.2.840.114 1 [id number] Univers 07:45:00 07:50:00 [facility] HEALTH 350.1.13.10 ity of [place] 4.2.7.2.686 T [facility] [phone] [facility] [address] ([facility]) 2022-11-03 2022-11-03 Outpatient Nagi VGEA [facility] [id number] Univers 11:00:00 11:00:00 ALEX kinney [facility] 2022-11-03 2022-11-03 Telephone [facility] 1.2.526.057 [id number] Univers 00:00:00 00:00:00 [facility] 350.1.13.10 ity of [place] 4.2.7.2.686 Ernst as ЕКАТЕРИНА?BLEA [id number] [address] MEDICAL OFFICE BUILDING 2022-11-02 2022-11-02 Office [facility] 1.2.840.114 [id number] Univers 15:00:00 15:20:00 Visit [facility] 350.1.13.10 ity of [place] 4.2.7.2.686 Ernst as ЕКАТЕРИНА?BLEA [id number] [address] MEDICAL OFFICE BUILDING 2022-11-02 2022-11-02 Outpatient R CHRIS LOWELL [facility] [id number] Univers 15:00:00 15:00:00 CHRIS [facility] 2022-11-01 2022-11-01 Telephone [facility] 1.2.921.153 [id number] Univers 00:00:00 00:00:00 [facility] HEALTH 350.1.13.10 it y of [place] 4.2.7.2.686 [place] [id number] [place] [address] [place] OFFICE BUILDING 2022-10-30 2022-10-30 Telephone [facility] 1.2.855.157 [id number] Univers 00:00:00 00:00:00 [facility] 350.1.13.10 ity of [place] 4.2.7.2.686 Ernst as ЕКАТЕРИНА?BLEA [id number] [address] MEDICAL OFFICE BUILDING 2022-10-25 2022-10-27 Outpatient X GABBI RANDALL [facility] [id number] Univers 19:09:00 16:46:00 GABBI RANDALL [facility] 2022-10-25 2022-10-27 Emergency Elieser Marbella Elliott [facility] 1.2.840.114 [id number] Univers 19:09:00 16:46:00 Le, [facility] HEALTH 350.1.13.10 i ty of Gabbi Randall [place] 4.2.7.2.686 [place] [phone] [facility] [address] ([facility]) 2022-10-26 2022-10-26 Outpatient R CHRIS LOWELL [facility] [id number] Univers 11:20:00 11:20:00 LOWELL PEREZ ity of [facility] 2022-10-24 2022-10-24 Prep For YARED Rojas 1.2.840.114 [id number] Univers 00:00:00 00:00:00 Surgery Brian NEGRETE 350.1.13.10 it y of HOSPITAL 4.2.7.2.686 Ernst as [id number] [place] [address] [address] 2022-10-23 2022-10-23 Telephone [facility] 1.2.641.475 [id number] Univers 00:00:00 00:00:00 [place] HEALTH 350.1.13.10 it y of [place] 4.2.7.2.686 [place] [id number] [place] [address] OFFICE BUILDING 2022-10-19 2022-10-19 [facility] 1.2.840.114 [id number] Univers 10:51:07 23:59:00 Encounter [place] HEALTH 350.1.13.10 ity of [place] 4.2.7.2.686 [place] [id number] [address] ([facility]) 2022-10-19 2022-10-19 [facility] 1.2.840.114 [id number] Univers 10:50:57 10:50:57 Encounter [facility] HEALTH 350.1.13.10 ity of [place] 4.2.7.2.686 [place] [id number] [address] ([facility]) 2022-10-19 2022-10-19 [facility] 1.2.840.114 [id number] Univers 10:50:28 10:50:28 Encounter [place] HEALTH 350.1.13.10 ity of [place] 4.2.7.2.686 [place] [id number] [address] ([facility]) 2022-10-19 2022-10-19 Outpatient R [facility] [id number] Univers 10:50:13 10:50:13 MERRITT ity of [facility] 2022-10-19 2022-10-[address] [facility] 1.2.840.114 [id number] Univers 10:50:13 10:50:13 Encounter Yulia Sinclair [facility] 350.1.13.10 ity of [place] 4.2.7.2.686 [place] [id number] [facility] [address] ([facility]) 2022-10-19 2022-10-19 Telephone [facility] 1.2.155.762 [id number] Univers 00:00:00 00:00:00 [facility] 350.1.13.10 it y of [place] 4.2.7.2.686 [place] [id number] [facility] [address] OFFICE BUILDING 2022-10-18 2022-10-18 Outpatient R LATASHA [facility] [id number] Univers 11:00:00 11:06:26 [facility] 2022-10-18 2022-10-18 [facility] 1.2.840.114 [id number] Univers 11:00:00 11:06:26 Visit [facility] 350.1.13.10 it y of [place] 4.2.7.2.686 [place] [id number] [facility] [address] OFFICE BUILDING 2022-10-14 2022-10-14 Outpatient R BRIAN ROJAS [facility] 1 [id number] Univers 10:58:44 23:59:00 BRIAN ROJAS [facility] 2022-10-14 2022-10-14 [facility] 1.2.840.114 [id number] Univers 10:58:44 23:59:00 Encounter Brian ROSEN 350.1.13.10 ity of [place] 4.2.7.2.686 [place] [id number] [facility] [address] 2022-10-13 2022-10-13 Outpatient R BRIAN ROJAS [facility] 1 [id number] Univers 11:15:00 11:55:43 BRIAN ROJAS [facility] 2022-10-10 2022-10-10 Outpatient Nagi HYATT [facility] [id number] Univers 10:08:34 23:59:00 MADISON kinney [facility] 2022-10-10 2022-10-10 Hospital [facility] 1.2.840.114 [id number] Univers 10:08:34 23:59:00 Encounter [place] HEALTH 350.1.13.10 ity of [place].2.[place].2.686 [place] [id number] [facility] [address] ([facility]) 2022-10-10 2022-10-10 Office [facility] 1.2.840.114 [id number] Univers 14:15:00 15:24:50 Visit Kaya HEALTH 350.1.13.10 it y of [place] 4.2.7.2.686 [place] CENTER [id number] [facility] [address] 2022-10-07 2022-10-07 Orders Doctor YARED 1.2.840.114 [id number] Univers 00:00:00 00:00:00 Only Unassigned, PENELOPE 350.1.13.10 ity of [facility] 4.2.7.2.686 Ernst as [id number] [facility] [address] 2022-10-04 2022-10-04 Outpatient Nagi [facility] [id number] Univers 00:00:00 00:00:00 ALLA kinney [facility] 2022-10-03 2022-10-03 Telephone [facility] 1.2.433.983 [id number] Univers 00:00:00 00:00:00 [place] HEALTH 350.1.13.10 ity of [place] 4.2.7.2.686 Ernst as ЕКАТЕРИНА?BLEA [id number] [address] MEDICAL OFFICE [facility] 2022-10-03 2022-10-03 Refill [facility] 1.2.840.114 [id number] Univers 00:00:00 00:00:00 [place] HEALTH 350.1.13.10 ity of [place] 4.2.7.2.686 Ernst as ЕКАТЕРИНА?BLEA [phone] [address] MEDICAL OFFICE BUILDING 2022-09-29 2022-09-29 Orders Doctor YARED 1.2.840.114 [id number] Univers 00:00:00 00:00:00 Only Unassigned, PENELOPE 350.1.13.10 ity of [facility] 4.2.7.2.686 Ernst as [id number] [address] 2022-09-27 2022-09-27 Orders Doctor YARED 1.2.840.114 [id number] Univers 00:00:00 00:00:00 Only Unassigned, PENELOPE 350.1.13.10 ity of [facility] 4.2.7.2.686 Ernst as [id number] [address] 2022-09-27 2022-09-27 Patient [facility] 1.2.131.753 [id number] Univers 00:00:00 00:00:00 [facility] 350.1.13.10 ity of [place].2.[place] [id number] [address] OFFICE BUILDING 2022-09-26 2022-09-26 Telephone Lora [facility] 1.2.840.114 1 [id number] Univers 00:00:00 00:00:00 Alex ROSEN 350.1.13.10 i ty of [place].2.[place].2.686 [place] [id number] Ar florentin SEXTON [address] [place] [address] 2022-09-25 2022-09-25 Outpatient R LOWELL PEREZ [facility] [id number] Univers 14:00:00 14:53:48 LOWELL PEREZ mervin [facility] 2022-09-25 2022-09-25 Office [facility] 1.2.840.114 [id number] Univers 14:00:00 14:53:48 Visit [facility] 350.1.13.10 ity of [place] 4.2.7.2.686 Ernst as ЕКАТЕРИНА?BLEA [phone] Ar dickarol GARCIA [address] [place] [address] OFFICE BUILDING 2022-09-23 2022-09-23 Orders Doctor LAWSON 1.2.840.114 [id number] Univers 00:00:00 00:00:00 Only Unassigned, PENELOPE 350.1.13.10 ity of [facility] 4.2.7.2.686 Ernst as [phone] [address] 2022-09-22 2022-09-22 Orders Doctor YARED 1.2.840.114 [id number] Univers 00:00:00 00:00:00 Only Unassigned, PENELOPE 350.1.13.10 ity of [facility] 4.2.7.2.686 Ernst as [phone] [address] 2022-09-21 2022-09-21 [facility] [id number] Univers 14:40:00 14:40:00 LOWELL mervin [facility] 2022-09-21 2022-09-21 Telephone [facility] 1.2.926.231 [id number] Univers 00:00:00 00:00:00 Madison ROSEN 350.1.13.10 i ty [place] [phone] [address] 2022-09-21 2022-09-21 Telephone [facility] 1.2.879.762 [id number] Univers 00:00:00 00:00:00 Madison ROSEN 350.1.13.10 i ty [place] [phone] [address] 2022-09-20 2022-09-20 [facility] [id number] Univers 10:30:00 11:39:20 ALLA [facility] 2022-09-20 2022-09-20 Office Critical access hospital 1.2.840.114 [id number] Univers 10:30:00 11:39:20 Visit [facility] 350.1.13.10 it [place] [phone] [place] [address] [place] OFFICE BUILDING 2022-09-20 2022-09-20 Orders Doctor YARED 1.2.840.114 [id number] Univers 00:00:00 00:00:00 Only Unassigned, PENELOPE 350.1.13.10 ity of [facility] 4.2.7.2.686 Ernst as [phone] [address] 2022-09-15 2022-09-15 Outpatient Nagi SANTOS [facility] [place] [id number] Univers 07:27:11 23:59:00 DEMETRIS kinney [facility] 2022-09-15 2022-09-15 Hospital Demetris Santos 1.2.84 0.114 [id number] Univers 07:27:11 23:59:00 Encounter Cain Marah Payne [place] 350.1. 13.10 ity [facility] 4.2.7.2.686 Ernst as [phone] [facility] [address] 2022-09-15 2022-09-15 Hospital JANAK Barlow 1.2.827.479 [id number] Univers 06:20:00 10:05:00 Encounter Marah NEGRETE 350.1.13.10 ity [facility] 4.2.7.2.686 Ernst as [phone] [facility] [address] 2022-09-15 2022-09-15 Anesthesia Blaire Burgess 1.2.8 40.114 [id number] Univers 08:09:00 09:41:00 Event Gurinder Luciano Justineguerrero PENELOPE 350.1. 13.10 ity of [facility] 4.2.7.2.686 Ernst as [phone] [facility] [address] 2022-09-15 2022-09-15 Surgery Anesthesiol JANAK 1.2.840.114 [id number] Univers 08:00:00 09:15:00 alexandra NEGRETE 350.1.13.10 it y of [facility] 4.2.7.2.686 Ernst as [phone] [facility] [address] 2022-09-14 2022-09-14 Outpatient Nagi SANTOS [facility] [id number] Univers 00:00:00 00:00:00 DEMETRIS kinney [facility] 2022-09-13 2022-09-13 Telephone Latasha [facility] 1.2.934.425 [id number] [id number] Univers 00:00:00 00:00:00 [facility] 350.1.13.10 it y of [place] 4.2.7.2.686 [place] [facility] [phone] [facility] [address] OFFICE BUILDING 2022-09-12 2022-09-12 Outpatient R DIANA [facility]ANT[facility] [id number] Univers 14:00:00 14:00:00 ity of [facility] 2022-09-07 2022-09-07 Orders Doctor YARED 1.2.840.114 [id number] Univers 00:00:00 00:00:00 Only Unassigned, PENELOPE 350.1.13.10 ity of [facility] 4.2.7.2.686 Ernst as [id number] [place] [address] [address] 2022-09-06 2022-09-06 Telephone [facility] 1.2.218.195 [id number] Univers 00:00:00 00:00:00 Madison ROSEN 350.1.13.10 i ty of [place] 4.2.7.2.686 [place] [phone] Ar dical [facility] [address] [facility] 2022-09-05 2022-09-05 Out[facility] [id number] Univers 14:10:00 14:10:00 PEREZ [facility] 2022-09-04 2022-09-04 [facility] [id number] Univers 10:00:00 10:00:00 CHANA kinney o f [facility] 2022-08-30 2022-08-30 Outpatient [facility] [id number] Univers 13:30:00 14:10:38 JUAN [facility] 2022-08-30 2022-08-30 Office [facility] 1.2.840.114 [id number] Univers 13:30:00 14:10:38 Visit Juan CARTER 350.1.13.10 ity of [facility] 4.2.7.2.686 [place] CENTER [id number] [facility] AND [address] [facility] 2022-08-30 2022-08-30 Telephone [facility] 1.2.180.256 [id number] [id number] Univers 00:00:00 00:00:00 Madison ROSEN 350.1.13.10 i ty of [place] 4.2.7.2.686 [place] [id number] Ar dical NAL 044 [facility] 2022-08-23 2022-08-23 Telephone [facility] 1.2.387.277 [id number] Univers 00:00:00 00:00:00 Madison ROSEN 350.1.13.10 i ty of [place] 4.2.7.2.686 [place] [id number] Ar dical NAL 044 [facility] 2022-08-23 2022-08-23 Orders Doctor YARED 1.2.840.114 [id number] Univers 00:00:00 00:00:00 Only Unassigned, PENELOPE 350.1.13.10 ity of [facility] 4.2.7.2.686 Ernst as [phone] [address] 2022-08-18 2022-08-18 Edm Operator Darryl, Adc Lab Main [facility] 1.2.8 40.114 [id number] Univers 11:00:00 11:15:00 Visit Chana Fritz 350.1.13.10 ity of [place] 4.2.7.2.686 [place] [id number] Ar dicri NAL 353 [facility] 2022-08-18 2022-08-18 Outpatient R [facility] [id number] Univers 11:00:00 11:00:00 CHANA kinney o f [facility] 2022-08-18 2022-08-18 Orders Doctor YARED 1.2.840.114 [id number] Univers 00:00:00 00:00:00 Only Unassigned, PENELOPE 350.1.13.10 ity of [facility] 4.2.7.2.686 Ernst as [phone] [address] 2022-08-17 2022-08-17 Telephone [facility] 1.2.379.203 [id number] [id number] Univers 00:00:00 00:00:00 Madison ROSEN 350.1.13.10 i ty of [place] 4.2.7.2.686 [place] [phone] Ar dical NAL 044 [facility] 2022-08-16 2022-08-16 Outpatient R [facility] [id number] Univers 14:19:57 23:59:00 CHANA kinney o f [facility] 2022-08-16 2022-08-16 [facility] 1.2.924.033 [id number] [id number] Univers 00:00:00 00:00:00 Madison BRITOTON 350.1.13.10 i ty of [place] 4.2.7.2.686 [place] [phone] Ar dicri NAL [address] [place] [address] 2022-08-16 2022-08-16 [facility] 1.2.837.347 0489 [id number] Univers 00:00:00 00:00:00 Madison [place] 350.1.13.10 i ty of [place] 4.2.7.2.686 [place] [id number] Ar dicri NAL [address] [place] [address] 2022-08-15 2022-08-15 Outpatient [facility] [id number] Univers 10:00:00 11:06:41 MADISON kinney [facility] 2022-08-15 2022-08-15 [facility] 1.2.840.114 [id number] Univers 10:00:00 11:06:41 Visit Madison ROSEN 350.1.13.10 i ty of [place] 4.2.7.2.686 [place] [phone] [facility] NAL [address] [place] [address] 2022-08-15 2022-08-15 [facility] 1.2.985.573 [id number] [id number] Univers 00:00:00 00:00:00 Madison [place] 350.1.13.10 i ty of [place] 4.2.7.2.686 [place] [phone] Ar dical NAL [address] [place] [address] 2022-08-15 2022-08-15 [facility] 1.2.626.865 [id number] [id number] Univers 00:00:00 00:00:00 Madison [place] 350.1.13.10 i ty of [place] 4.2.7.2.686 [place] [phone] Ar dical NAL [address] [place] [address] 2022-08-15 2022-08-15 Telephone [facility] 1.2.549.034 [id number] [id number] Univers 00:00:00 00:00:00 Madison ROSEN 350.1.13.10 i ty of [facility] 4.2.7.2.686 [place] [id number] Ar dical NAL 044 [facility] 2022-08-15 2022-08-15 Telephone [facility] 1.2.596.443 4931 [id number] Univers 00:00:00 00:00:00 Madison XAVI 350.1.13.10 i ty of [facility] 4.2.7.2.686 [place] [id number] Ar dical NAL 044 [facility] 2022-08-15 2022-08-15 [facility] 1.2.240.841 [id number] [id number] Univers 00:00:00 00:00:00 Chana ROSEN 350.1.13.10 ity of [facility] 4.2.7.2.686 [place] [id number] Ar dical NAL 059 [facility] 2022-08-15 2022-08-15 Orders Doctor YARED 1.2.840.114 [id number] Univers 00:00:00 00:00:00 Only Unassigned, PENELOPE 350.1.13.10 ity of [facility] 4.2.7.2.686 Ernst as [phone] [facility] [address] [place] 2022-08-14 2022-08-14 Transition KARLA Mosley 1.2.840.114 [id number] Univers 00:00:00 00:00:00 of Care Monica Kinza RENNER 350.1.13.10 i ty of [place] 4.2.7.2.686 [place] [id number] [facility] [address] 2022-08-14 2022-08-14 Orders Doctor YARED 1.2.840.114 [id number] Univers 00:00:00 00:00:00 Only Unassigned, PENELOPE 350.1.13.10 ity of [facility] 4.2.7.2.686 Ernst as [phone] [facility] [address] 2022-08-08 2022-08-11 Inpatient X DOMINIC, [facility] [id number] Univers 14:33:00 15:27:00 PEACE ity of [facility] 2022-08-08 2022-08-11 Hospital Chloe Bailey [facility] 1.2.840.11 4 [id number] Univers 14:33:00 15:27:00 Encounter Amrita Stoneluis enrique Corin [facility] 350.1.13. 10 ity of [place] 4.2.7.2.686 [facility] [phone] [place] [address] Branch ([facility]) 2022-08-10 2022-08-10 Telephone Olena [facility] 1.2.165.824 [id number] [id number] Univers 00:00:00 00:00:00 [place] HEALTH 350.1.13.10 it y of [place] 4.2.7.2.686 Ernst as ЕКАТЕРИНА?BLEA [id number] [address] MEDICAL OFFICE BUILDING 2022-08-09 2022-08-09 Telephone Lora [facility] 1.2.840.114 1 [id number] Univers 00:00:00 00:00:00 Alex ROSEN 350.1.13.10 i ty of [place] 4.2.7.2.686 [facility] [phone] [address] 2022-08-08 2022-08-08 Outpatient R OLENA [facility] [id number] Univers 15:00:00 15:00:00 MADISON ity [facility] 2022-08-08 2022-08-08 Patient Olena [facility] 1.2.840.114 [id number] Univers 00:00:00 00:00:00 Secure Msg [place] MULTISPEC 350.1.13.10 ity of [place] 4.2.7.2.686 [facility] [phone] [facility] AND [address] [facility] 2022-08-07 2022-08-07 Outpatient R TAMRA [facility] [id number] Univers 14:00:00 14:00:00 CHANA silverman [facility] 2022-08-07 2022-08-07 Telephone [facility] 1.2.956.563 [id number] [id number] Univers 00:00:00 00:00:00 Madison ROSEN 350.1.13.10 i ty of [place] 4.2.7.2.686 [place] [facility] [phone] Ar dical NAL [address] BUILDING 2022-08-04 2022-08-04 Office Demetris Santos [facility] 1.2.840 .114 [id number] Univers 11:30:00 12:00:00 Visit Shaun Posadas [facility] 350.1.13.10 ity of [place] 4.2.7.2.686 [place] [phone] [address] OFFICE BUILDING 2022-08-04 2022-08-04 Outpatient R [facility] [id number] Univers 11:30:00 11:30:00 [facility] 2022-08-04 2022-08-04 Orders Doctor LAWSON 1.2.840.114 [id number] Univers 00:00:00 00:00:00 Only Unassigned, PENELOPE 350.1.13.10 ity of [facility] 4.2.7.2.686 Ernst as [phone] [facility] [address] [place] 2022-08-03 2022-08-03 Outpatient Nagi WHITING [facility] [id number] Univers 13:00:00 13:00:00 JESS [facility] 2022-08-03 2022-08-03 Emergency X [facility] ERT [id number] Univers 08:07:00 09:43:00 E[facility] 2022-08-03 2022-08-03 Emergency [facility] 1.2.097.990 [id number] [id number] Univers 08:07:00 09:43:00 Elaine ROSEN 350.1.13.10 i ty of [place] 4.2.7.2.686 [place] MAR[place] [phone] [facility] [address] [place] 2022-08-03 2022-08-03 Telephone [facility] 1.2.325.684 [id number] [id number] Univers 00:00:00 00:00:00 Madison ROSEN 350.1.13.10 i ty of [facility] 4.2.7.2.686 [place] [phone] Ar dical NAL 044 [facility] 2022-08-01 2022-08-01 Orders Doctor YARED 1.2.840.114 [id number] Univers 00:00:00 00:00:00 Only Unassigned, PENELOPE 350.1.13.10 ity of [facility] 4.2.7.2.686 Ernst as [phone] [address] 2022-07-27 2022-07-27 Outpatient R MASOOD [facility] [id number] Univers 10:50:00 11:06:44 JUAN ity of [facility] 2022-07-27 2022-07-27 Office Masood [facility] 1.2.154.625 [id number] [id number] Univers 10:50:00 11:06:44 Visit Juan SPECIALTY 350.1.13.10 ity of [facility] 4.2.7.2.686 [place] CENTER AT [phone] Ar eliseokarol HANSON 198 [facility] 2022-07-27 2022-07-27 Orders Doctor YARED 1.2.840.114 [id number] Univers 00:00:00 00:00:00 Only Unassigned, PENELOPE 350.1.13.10 ity of [facility] 4.2.7.2.686 Ernst as [phone] [address] 2022-07-26 2022-07-26 Telephone [facility] 1.2.442.439 [id number] [id number] Univers 00:00:00 00:00:00 Mdaison ROSEN 350.1.13.10 i ty of [facility] 4.2.7.2.686 [place] 717.8620624 Ar dical NAL 044 [facility] 2022-07-20 2022-07-20 Telephone [facility] 1.2.096.685 [id number] 0712 Univers 00:00:00 00:00:00 Madison ROSEN 350.1.13.10 i ty of [place] 4.2.7.2.686 [place] 148.0905722 Ar dical NAL 044 [facility] 2022-07-19 2022-07-19 Telephone Olena [facility] 1.2.334.503 2586 [id number] Univers 00:00:00 00:00:00 Madison ROSEN 350.1.13.10 i ty of [facility] 4.2.7.2.686 [place] [id number] [address] 2022-07-18 2022-07-18 Patient Olena [facility] 1.2.840.114 [id number] Univers 00:00:00 00:00:00 Secure Msg [place] MULTISPEC 350.1.13.10 ity of [place] 4.2.7.2.686 [place] CENTER [id number] [address] DIABETES [facility] 2022-07-18 2022-07-18 Patient Olena [facility] 1.2.840.114 [id number] Univers 00:00:00 00:00:00 Secure Msg [place] MULTISPEC 350.1.13.10 ity of [place] 4.2.7.2.686 [place] CENTER [id number] [address] DIABETES [facility] 2022-07-18 2022-07-18 Siva [facility] 1.2.840.114 [id number] Univers 00:00:00 00:00:00 Jonathan ROSEN 350.1.13.10 ity of [place] 4.2.7.2.686 [place] [phone] [address] 2022-07-18 2022-07-18 Patient Olena [facility] 1.2.840.114 [id number] Univers 00:00:00 00:00:00 Secure Msg [place] MULTISPEC 350.1.13.10 ity of [place] 4.2.7.2.686 [place] CENTER [id number] [address] DIABETES [facility] 2022-07-18 2022-07-18 Orders Doctor YARED 1.2.840.114 [id number] Univers 00:00:00 00:00:00 Only Unassigned, PENELOPE 350.1.13.10 ity of [facility] 4.2.7.2.686 Ernst as 194.2377350 [facility] [address] [place] 2022-07-17 2022-07-17 Outpatient R [facility] [id number] Univers 12:40:42 23:59:00 MADISON ity of [facility] 2022-07-17 2022-07-17 [facility] 1.2.840.114 [id number] Univers 12:40:42 23:59:00 Encounter Madison ROSEN 350.1.13.10 ity of [place] 4.2.7.2.686 [place] CAMPUS [id number] [facility] [address] [place] 2022-07-17 2022-07-17 Office [facility] 1.2.840.114 [id number] Univers 12:30:00 12:30:47 Visit Madison ROSEN 350.1.13.10 i ty of [place] 4.2.7.2.686 [place] [id number] [address] 2022-07-17 2022-07-17 Orders Doctor YARED 1.2.840.114 [id number] Univers 00:00:00 00:00:00 Only Unassigned, PENELOPE 350.1.13.10 ity of [facility] 4.2.7.2.686 Ernst as [id number] [facility] [address] [place] 2022-07-12 2022-07-12 Emergency ER Maravilla, [facility] [id number] [address] [place] 08:41:00 11:13:00 Vicente [id number] Critical access hospital 2022-07-12 2022-07-12 Telephone [facility] 1.2.840.114 9 [id number] Univers 00:00:00 00:00:00 Alex ROSEN 350.1.13.10 i ty of [facility] 4.2.7.2.686 [place] 285.3551290 Ar dic[address] 2022-07-12 2022-07-12 Telephone [facility] 1.2.840.114 9 [id number] Univers 00:00:00 00:00:00 Alex ROSEN 350.1.13.10 i ty of [facility] 4.2.7.2.686 [place] 924.4948376 Ar dical NAL 044 [facility] 2022-07-05 2022-07-05 Telephone [facility] 1.2.584.734 [id number] 0927 Univers 00:00:00 00:00:00 Chana ROSEN 350.1.13.10 ity of [place] 4.2.7.2.686 [place] 115.7505680 Ar dical NAL 059 [facility] 2022-07-05 2022-07-05 Telephone [facility] 1.2.275.806 0745 [id number] Univers 00:00:00 00:00:00 Chana ROSEN 350.1.13.10 ity of [facility] 4.2.7.2.686 [place] [id number] Ar dical NAL 059 [facility] 2022-07-05 2022-07-05 Telephone [facility] 1.2.840.114 9 [id number] Univers 00:00:00 00:00:00 Alex ROSEN 350.1.13.10 i ty of [place] 4.2.7.2.686 [place] 315.6815947 Ar dical NAL 044 [facility] 2022-07-04 2022-07-04 Travel [facility] [id number] [facility] St 00:00:00 00:00:00 [facility] 2022-07-04 2022-07-04 Travel [facility] [id number] [facility] St 00:00:00 00:00:00 [facility] 2022-07-04 2022-07-04 Telephone [facility] 1.2.258.001 3523 [id number] Univers 00:00:00 00:00:00 Chana ROSEN 350.1.13.10 ity of [facility] 4.2.7.2.686 [place] [phone] Ar dical NAL 059 [facility] 2022-07-04 2022-07-04 Orders Doctor LAWSON 1.2.840.114 [id number] Univers 00:00:00 00:00:00 Only Unassigned, PENELOPE 350.1.13.10 ity of [facility] 4.2.7.2.686 Ernst as 280.8488512 [address] 2022-06-29 2022-06-29 Telephone [facility] 1.2.840.114 9 [id number] Univers 00:00:00 00:00:00 Alex ROSEN 350.1.13.10 i ty of [facility] 4.2.7.2.686 [place] 378.5895252 [address] 2022-06-26 2022-06-26 Orders Doctor YARED 1.2.840.114 [id number] Univers 00:00:00 00:00:00 Only Unassigned, PENELOPE 350.1.13.10 ity of [facility] 4.2.7.2.686 Ernst as 564.4668222 [address] 2022-06-21 2022-06-21 Telephone [facility] 1.2.840.114 9 [id number] Univers 00:00:00 00:00:00 Alex ROSEN 350.1.13.10 i ty of [place] 4.2.7.2.686 [place] 156.3376534 Ar dical NAL [address] [place] [address] 2022-06-15 2022-06-15 Telephone [facility] 1.2.840.114 9 [id number] Univers 00:00:00 00:00:00 Alex ROSEN 350.1.13.10 i ty of [place] 4.2.7.2.686 [place] 123.4852274 Ar dicri NAL [address] [place] [address] 2022-06-14 2022-06-14 Telephone [facility] 1.2.840.114 9 [id number] Univers 00:00:00 00:00:00 Alex ROSEN 350.1.13.10 i ty of [place] 4.2.7.2.686 [place] 534.6823342 Ar dical NAL [address] [place] [address] 2022-06-14 2022-06-14 Telephone [facility] 1.2.840.114 9 [id number] Univers 00:00:00 00:00:00 Alex ROSEN 350.1.13.10 i ty of [place] 4.2.7.2.686 [place] 150.9519215 Ar dic[address] 2022-06-13 2022-06-13 Orders Doctor YARED 1.2.840.114 [id number] Univers 00:00:00 00:00:00 Only Unassigned, PENELOPE 350.1.13.10 ity of [facility] 4.2.7.2.686 Ernst as 668.9542242 [address] 2022-06-13 2022-06-13 Telephone [facility] 1.2.840.114 9 [id number] Univers 00:00:00 00:00:00 Alex ROSEN 350.1.13.10 i ty of [place] 4.2.7.2.686 [place] 303.5674486 Ar dicri NAL [address] [place] [address] 2022-06-09 2022-06-09 Telephone [facility] 1.2.840.114 [id number] Univers 00:00:00 00:00:00 Ogcarol ROSEN 350.1.13.10 ity of [place] 4.2.7.2.686 [place] 650.2349252 Ar dicri NAL [address] [place] [address] 2022-06-09 2022-06-09 Telephone [facility] 1.2.840.114 [id number] [id number] Univers 00:00:00 00:00:00 Radhames ROSEN 350.1.13.10 ity of [place] 4.2.7.2.686 [place] 129.7537960 Ar dical NAL [address] [place] [address] 2022-06-07 2022-06-07 [facility] 1.2.840.114 9 [id number] Univers 00:00:00 00:00:00 Alex ROSEN 350.1.13.10 i ty of [place] 4.2.7.2.686 [place] 129.3363416 Ar dicri NAL [address] [place] [address] 2022-05-31 2022-05-31 Telephone [facility] 1.2.840.114 9 [id number] Univers 00:00:00 00:00:00 Jonathan ROSEN 350.1.13.10 ity of [place] 4.2.7.2.686 [place] 289.3967765 [facility] 231 [facility] 2022-05-30 2022-05-30 Orders Doctor YARED 1.2.840.114 [id number] Univers 00:00:00 00:00:00 Only Unassigned, PENELOPE 350.1.13.10 [facility]y [facility] 4.2.7.2.686 Ernst as 516.9296075 [address] 2022-05-26 2022-05-26 Telephone [facility] 1.2.840.114 9 [id number] [facility] 00:00:00 00:00:00 Jonathan ROSNE 350.1.13.10 ity of [place] 4.2.7.2.686 [place] [id number] [address] 2022-05-25 2022-05-25 Telephone [facility]anner, [facility] 1.2.840.114 9 [id number] [facility] 00:00:00 00:00:00 Jonathan ROSEN 350.1.13.10 ity of [place] 4.2.7.2.686 [place] [id number] [address] 2022-05-23 2022-05-24 Outpatient R FLORES [facility] [id number] Univers 08:40:00 07:52:40 JONATHAN ity of [facility] 2022-05-23 2022-05-24 Telemedici [facility] 1.2.840.114 [id number] Univers 08:40:00 07:52:40 ne Visit Jonathan ROSEN 350.1.13.10 ity of [place] 4.2.7.2.686 [place] [id number] [address] 2022-05-24 2022-05-24 Telephone [facility] 1.2.840.114 9 [id number] Univers 00:00:00 00:00:00 Jonathan BRITOTON 350.1.13.10 ity of [facility] 4.2.7.2.686 [place] 349.3725438 [address] 2022-05-19 2022-05-19 Telephone [facility] 1.2.840.114 9 [id number] [facility] 00:00:00 00:00:00 Jonathan BRITOTON 350.1.13.10 ity of [facility] 4.2.7.2.686 [place] [id number] [address] 2022-05-18 2022-05-18 Outpatient R LATASHA [facility] [id number] Univers 10:00:00 10:00:00 MERRITT ity of [facility] 2022-05-18 2022-05-18 [facility] 1.2.840.114 9 [id number] Univers 00:00:00 00:00:00 Jonathan ROSEN 350.1.13.10 ity of [place] 4.2.7.2.686 [place] [id number] [address] 2022-05-18 2022-05-18 [facility] 1.2.840.114 9 [id number] Univers 00:00:00 00:00:00 Jonathan BRITOTON 350.1.13.10 ity of [facility] 4.2.7.2.[place] [id number] [address] 2022-05-17 2022-05-17 [facility] 1.2.840.114 9 [id number] Univers 00:00:00 00:00:00 Jonathan A ALISHATON 350.1.13.10 ity of [facility] 4.2.7.2.[place] [id number] [address] 2022-05-11 2022-05-11 [facility] 1.2.840.114 [id number] Univers 00:00:00 00:00:00 Jonathan ROSEN 350.1.13.10 ity of [place] 4[place] [id number] [facility] [address] [facility] 2022-05-09 2022-05-09 Telephone Tamra [facility] 1.2.114.047 [id number] Univers 00:00:00 00:00:00 Chana XAVI 350.1.13.10 ity [facility] [place] [phone] [facility] [address] [facility] 2022-05-08 2022-05-08 [facility] 1.2.840.114 [id number] Univers 00:00:00 00:00:00 Outreach [facility] 350.1.13.10 i ty of [place] [id number] [facility] PRIMARY & [facility] 2022-05-08 2022-05-08 Telephone Flores [facility] 1.2.840.114 [id number] Univers 00:00:00 00:00:00 Jonathan ROSEN 350.1.13.10 ity [facility] [place] [id number] [facility] [address] [facility] 2022-05-08 2022-05-08 Telephone Flores [facility] 1.2.840.114 [id number] Univers 00:00:00 00:00:00 Jonathan ROSEN 350.1.13.10 ity of [place] 4[place]2.[place] [id number] [address] 2022-05-04 2022-05-04 Telephone Flores [facility] 1.2.840.114 [id number] Univers 00:00:00 00:00:00 Jonathan ROSEN 350.1.13.10 ity of [place] 4[place] [phone] [facility] [address] [facility] 2022-05-03 2022-05-03 [facility] [id number] Univers 14:40:00 15:02:54 CHANA ity o f [facility] 2022-05-03 2022-05-03 [facility] 1.2.840.114 [id number] Univers 14:40:00 15:02:54 Visit Chana ROSEN 350.1.13.10 ity of [place] 4[place] [id number] Ar dical NAL 0[address] [facility] 2022-05-03 2022-05-03 Orders Doctor YARED 1.2.840.114 [id number] Univers 00:00:00 00:00:00 Only Unassigned, PENELOPE 350.1.13.10 ity of [facility] 4.2.7.2.686 Ernst as [id number] [address] 2022-05-03 2022-05-03 [facility]phone [facility] 1..840.114 9 [id number] Univers 00:00:00 00:00:00 Jonathan ROSEN 350.1.13.10 ity of [place] 4[place] [id number] Ar dical CARLIE [address] [facility] 2022-05-02 2022-05-02 Outpatient R RADHAMES ACEVEDO [facility] [id number] Univers 13:00:00 14:10:50 RADHAMES ACEVEDO ity of [facility] 2022-05-02 2022-05-02 Office [facility] 1.2.840.114 [id number] Univers 13:00:00 14:10:50 Visit Radhames ROSEN 350.1.13.10 ity of [place] 4[place] [phone] Ar dical NAL 044 [facility] 2022-05-02 2022-05-02 Telephone [facility] 1.2.539.510 [id number] Univers 00:00:00 00:00:00 Chana ROSEN 350.1.13.10 ity of [place] [id number] Ar dical NAL [address] BUILDING 2022-05-02 2022-05-02 Telephone Tamra, [facility] 1.2.042.722 [id number] Univers 00:00:00 00:00:00 Chana XAVI 350.1.13.10 ity of [facility] [place].2.[place].2.[place] [id number] Ar dical NAL [address] BUILDING 2022-05-02 2022-05-02 Telephone Latasha, [facility] 1.2.538.614 [id number] Univers 00:00:00 00:00:00 [facility] 350.1.13.10 it y of [place] 4.2.7.2.[place] [phone] [facility] [address] OFFICE BUILDING 2022-05-02 2022-05-02 Patient Tanner, [facility] 1.2.840.114 [id number] Univers 00:00:00 00:00:00 Secure Msg Jonathan ROSEN 350.1.13.10 ity of [place] 4.2.7.2.[place] [phone] Ar dical NAL [address] [facility] 2022-05-02 2022-05-02 Orders Doctor YARED 1.2.840.114 [id number] Univers 00:00:00 00:00:00 Only Unassigned, PENELOPE 350.1.13.10 ity of [facility] 4.2.7.2.686 Ernst as [phone] [facility] [address] 2022-05-01 2022-05-01 Emergency X [facility] ERT [id number] Univers 17:11:00 19:32:00 MECCA ity of [facility] 2022-05-01 2022-05-01 Emergency [facility] 1.2.840.114 9 [id number] Univers 17:11:00 19:32:00 Mecca S [place] 350.1.13.10 i ty of [place] 4.2.7.2.[place] C[place] [id number] [facility] [address] 2022-05-01 2022-05-01 [facility] 1.2.379.348 [id number] Univers 14:53:44 17:10:00 Encounter Radhames ROSEN 350.1.13.10 ity of [facility] 4.2.7.2.[place] [id number] [facility] [address] 2022-05-01 2022-05-01 Outpatient R RADHAMES ACEVEDO [facility] [id number] Univers 00:00:00 17:10:00 [facility] 2022-05-01 Telephone [facility] 1.2.840.114 9 [id number] Univers 00:00:00 00:00:00 Jonathan ROSEN 350.1.13.10 ity of [place] 4.[place].7.[place] [id number] Ar dical [facility] 044 [facility] 2022-04-28 2022-04-28 Outpatient R [facility] [id number] Univers 11:00:00 11:00:00 [facility] 2022-04-26 2022-04-26 Outpatient R [facility] [id number] Univers 08:00:19 23:59:00 [facility] 2022-04-26 2022-04-26 [facility] 1.2.840.114 [id number] Univers 08:00:19 23:59:00 Encounter Jonathan GROSS 350.1.13.10 ity of [facility] 4.2.7.2.[place] [id number] [address] 2022-04-26 2022-04-26 Telephone [facility] 1.2.840.114 9 [id number] Univers 00:00:00 00:00:00 Jonathan ROSEN 350.1.13.10 ity of [facility] 4.2.[place].2.[place] [id number] Ar dical [facility] 231 [facility] 2022-04-25 2022-04-25 Orders Doctor LAWSON 1.2.840.114 [id number] Univers 00:00:00 00:00:00 Only Unassigned, PENELOPE 350.1.13.10 ity of [facility] 4.2.7.2.686 Ernst as [phone] [facility] [address] 2022-04-24 2022-04-24 Orders Doctor YARED 1.2.840.114 [id number] Univers 00:00:00 00:00:00 Only Unassigned, PENELOPE 350.1.13.10 ity of [facility] 4.2.7.2.686 Ernst as [id number] [facility] [address] 2022-04-24 2022-04-24 Patient [facility] 1.2.840.114 [id number] Univers 00:00:00 00:00:00 Secure Msg Radhames ROSEN 350.1.13.10 ity of [place] 4.2.7.2.[place] [id number] Ar dical [facility] [address] [facility] 2022-04-21 2022-04-21 [facility] 1.2.011.360 [id number] Univers 10:30:05 23:59:00 Encounter Radhames ROSEN 350.1.13.10 ity of [place] 4.2.7.2.686 [place] [id number] [facility] [address] 2022-04-21 2022-04-21 Outpatient R FLORES [facility] 1042 [id number] Univers 11:00:00 11:00:00 JONATHAN kinney [facility] 2022-04-21 2022-04-21 Outpatient R RADHAMES ACEVEDO [facility] [id number] Univers 10:24:38 10:29:00 [facility]AMES [facility] 2022-04-21 2022-04-21 [facility] 1.2.890.452 [id number] Univers 10:24:38 10:29:00 Encounter Radhames ROSEN 350.1.13.10 ity of [facility] 4.2.7.2.[place] [id number] [facility] [address] 2022-04-21 2022-04-21 Office [facility] 1.2.840.114 [id number] Univers 09:30:00 10:11:08 Visit Jassraynagarry XAVI 350.1.13.10 ity of [facility] 4.2.7.2.[place] [id number] Ar dical NAL 044 [facility] 2022-04-21 2022-04-21 Telephone [facility] 1.2.840.114 [id number] Univers 00:00:00 00:00:00 Jasscarol ROSEN 350.1.13.10 ity of [place] 4.2.7.2.[place] [id number] Ar dical NAL 044 [facility] 2022-04-20 2022-04-20 [facility] 1.2.840.114 9 [id number] Univers 00:00:00 00:00:00 Jonathan ROSEN 350.1.13.10 ity of [place] 4.2.7.2.[place] [id number] Ar dical NAL 044 [facility] 2022-04-20 2022-04-20 Telephone [facility] 1.2.840.114 9 [id number] Univers 00:00:00 00:00:00 Jonathan ROSEN 350.1.13.10 ity of [place] 4.2.7.2.[place] [id number] Ar dical NAL 231 [facility] 2022-04-20 2022-04-20 Orders Doctor YARED 1.2.840.114 [id number] Univers 00:00:00 00:00:00 Only Unassigned, PENELOPE 350.1.13.10 ity of [facility] 4.2.7.2.686 Ernst as [id number] [facility] [address] 2022-04-19 2022-04-19 Outpatient R LATASHA [facility] [id number] Univers 11:00:00 11:47:43 MERRITT ity of [facility] 2022-04-19 2022-04-19 Office [facility] 1.2.840.114 [id number] Univers 11:00:00 11:15:00 Visit [facility] 350.1.13.10 it y of [place] 4.2.7.2.686 [place] [id number] [facility] [address] OFFICE BUILDING 2022-04-19 2022-04-19 [facility]phone [facility] 1.2.840.114 9 [id number] Univers 00:00:00 00:00:00 Jonathan A ALISHATON 350.1.13.10 ity of [facility] 4.2.7.2.[place] [id number] [facility] [address] [facility] 2022-04-19 2022-04-19 Refill Tanner, [facility] 1.2.840.114 [id number] Univers 00:00:00 00:00:00 Jonathanling ROSEN 350.1.13.10 ity of [facility] 4.2.7.2.[place] [id number] [facility] [address] [facility] 2022-04-18 2022-04-18 Orders Doctor YARED 1.2.840.114 [id number] Univers 00:00:00 00:00:00 Only Unassigned, PENELOPE 350.1.13.10 ity of [facility] 4.2.7.2.686 Ernst as [id number] [address] 2022-04-17 2022-04-17 [facility]phone [facility] 1.2.840.114 9 [id number] Univers 00:00:00 00:00:00 Jonathan ROSEN 350.1.13.10 ity of [facility] 4.2.[place].2.[place] [id number] [facility] 044 [facility] 2022-04-14 2022-04-14 Outpatient Nagi TANNER [facility] [id number] Univers 11:00:00 11:00:00 JONATHAN itmervin of [facility] 2022-04-10 2022-04-12 Outpatient [facility] [id number] [id number] Univers 16:40:00 13:22:14 JONATHAN kinney [facility] 2022-04-10 2022-04-12 Telemedici Flores [facility] 1.2.840.114 [id number] [facility] 16:40:00 13:22:14 ne Visit Jonathan ROSEN 350.1.13.10 ity of [facility] 4.2.7.2.[place] [id number] [address] 2022-04-11 2022-04-11 Patient Pawel [facility] 1.2.840.114 [id number] Univers 00:00:00 00:00:00 Outreach Marleny ROSEN 350.1.13.10 ity of [facility] 4.2.7.2.[place] [id number] [address] 2022-04-10 2022-04-10 Orders Doctor YARED 1.2.840.114 [id number] Univers 00:00:00 00:00:00 Only Unassigned, PENELOPE 350.1.13.10 ity of [facility] 4.2.7.2.686 Ernst as [phone] [address] 2022-04-07 2022-04-07 Nurse 1, Adc Infusion Nurse [facility] 1.2. 840.114 [id number] Univers 11:00:00 11:15:00 Visit Jonathan Tanner 350.1. 13.10 ity of [facility] 4.2.7.2.686 [place]GICAL [id number] [facility] [address] 2022-04-07 2022-04-07 Outpatient R FLORES [facility] [id number] Univers 11:00:00 11:00:00 JONATHAN kinney [facility] 2022-04-06 2022-04-06 Telephone Flores [facility] 1.2.840.114 9 [id number] Univers 00:00:00 00:00:00 Jonathan ROSEN 350.1.13.10 ity of [facility] 4.2.[place].2.[place] [id number] [address] 2022-04-03 2022-04-03 Telephone Flores [facility] 1.2.840.114 9 [id number] Univers 00:00:00 00:00:00 Jonathan ROSEN 350.1.13.10 ity of [place] 4.2.7.2.[place] [id number] [address] 2022-04-03 2022-04-03 Patient Flores [facility] 1.2.840.114 [id number] Univers 00:00:00 00:00:00 Secure Msg Jonathan Rasmussen [facility] 350.1.13.10 ity of [place] 4.2.7.2.686 Ernst as ЕКАТЕРИНА?BLEA [phone] [address] OFF[address] [facility] 2022-04-03 2022-04-03 Patient Torrey [facility] 1.2.840.[id number] [place] [address] 00:00:00 00:00:00 Outreach Demetris ROSEN 350.1.13.10 ity of [facility] 4.2.7.2.[place] [id number] [address] 2022-04-03 2022-04-03 Telephone Flores [facility] 1.2.840.114 9 [id number] Univers 00:00:00 00:00:00 Jonathan ROSEN 350.1.13.10 ity of [place] 4[place]2.7.2.[place] [id number] [address] 2022-03-31 2022-03-31 Nurse 1, Adc Infusion Nurse [facility] 1.2. 840.114 [id number] Univers 11:00:00 11:15:00 Visit Jonathan Tanner 350.1. 13.10 ity of [place] 4.2.7.2.686 [place]GICAL [id number] [address] 2022-03-31 2022-03-31 Outpatient R FLORES NJDERRELL [facility] [id number] Univers 11:00:00 11:00:00 JONATHAN kinney [facility] 2022-03-29 2022-03-30 Outpatient R CURTISAIDAN SAUNDERSNatalieGarry [facility] [id number] Univers 15:00:00 10:34:26 RADHAMES ACEVEDO gregoria [facility] 2022-03-29 2022-03-30 Telemedici Curtis [facility] 1.2.840.114 [id number] Univers 15:00:00 10:34:26 ne Visit Radhames ROSEN 350.1.13.10 ity of [place] 4.2.7.2.[place] [id number] Ar dic[address] 2022-03-29 2022-03-29 Telephone Flores [facility] 1.2.840.114 9 [id number] Univers 00:00:00 00:00:00 Jonathan ROSEN 350.1.13.10 ity [facility] 4.2.7.2.[place] [id number] Ar dic[address] 2022-03-29 2022-03-29 Orders Doctor YARED 1.2.840.114 [id number] Univers 00:00:00 00:00:00 Only Unassigned, PENELOPE 350.1.13.10 ity of [facility] 4.2.7.2.686 Ernst as [id number] [address] 2022-03-28 2022-03-28 Outpatient R FLORES [facility] 1041 [id number] Univers 15:00:00 15:00:00 JONATHAN kinney [facility] 2022-03-24 2022-03-24 Nurse 1, Adc Infusion Nurse [facility] 1.2. 840.114 [id number] Univers 11:00:00 11:15:00 Visit Jonathan Tanner 350.1. 13.10 ity of [place] 4.2.7.2.[place] [id number] [place] [address] [place] 2022-03-24 2022-03-24 Outpatient R FLORES [facility] 1041 [id number] Univers 11:00:00 11:00:00 JONATHAN ity [facility] 2022-03-23 2022-03-23 Telephone [facility] 1.2.840.114 9 [id number] Univers 00:00:00 00:00:00 Jonathan A [place] 350.1.13.10 ity of [facility] 4.2.7.2.[place] [id number] [address] 2022-03-23 2022-03-23 [facility] 1.2.840.114 9 [id number] Univers 00:00:00 00:00:00 Jonathan A [place] 350.1.13.10 ity of [facility] 4.2.7.2.[place] [id number] [address] 2022-03-21 2022-03-21 Outpatient [facility] 1040 [id number] Univers 09:00:00 09:00:00 JONATHAN ity [facility] 2022-03-21 2022-03-21 [facility] 1.2.840.114 [id number] Univers 00:00:00 00:00:00 Management Jonathan A [place] 350.1.13.10 ity of [place] 4.2.7.2.[place] [id number] [address] 2022-03-21 2022-03-21 [place] [address].2.840.114 [id number] Univers 00:00:00 00:00:00 Jonathan A [place] 350.1.13.10 ity of [facility] 4.2.7.2.[place] [id number] [address] 2022-03-17 2022-03-17 Outpatient [facility] [id number] Univers 09:00:00 09:00:00 JONATHAN ity [facility] 2022-03-16 2022-03-16 Outpatient [facility] [id number] [id number] Univers 09:00:00 09:00:00 JONATHAN kinney of [facility] 2022-03-15 2022-03-15 Outpatient R ANNY [facility] [place]ADE [id number] Univers 08:14:00 11:52:00 ISIS ity [facility] 2022-03-15 2022-03-15 [facility] 1.2.840.114 [id number] Univers 08:14:00 11:52:00 Encounter Isis ROSEN 350.1.13.10 ity of [place] 4.2.7.2.686 [place]ICAL [id number] [facility] [address] 2022-03-15 2022-03-15 Surgery [facility] 1.2.382.354 [id number] Univers 09:10:00 10:35:00 Isis ROSEN 350.1.13.10 i ty of [place] 4.2.7.2.686 [place]ICAL [id number] [facility] [address] 2022-03-15 2022-03-15 Orders Doctor YARED 1.2.840.114 [id number] Univers 00:00:00 00:00:00 Only Unassigned, PENELOPE 350.1.13.10 ity of [facility] 4.2.7.2.686 Ernst as [id number] [facility] [address] 2022-03-14 2022-03-14 Edm Operator Darryl, Adc Lab Main [facility] 1.2.8 40.114 [id number] Univers 12:45:00 13:00:00 Visit Jonathan Tanner 350.1. 13.10 ity of [place] 4.2.7.2.686 [place] 063.5012295 [facility] [address] BUILDING 2022-03-14 2022-03-14 Laboratory Only, Adc Test [facility] 1.2.840. 114 [id number] Univers 11:30:00 11:45:00 Only Isis Kerns 350.1.13.10 ity of [place] 4.2.7.2.[place] [id number] [facility] [address] 2022-03-142022-03-14 Outpatient Nagi KERNS [facility] [id number] Univers 11:30:00 11:30:00 ISIS kinney [facility] 2022-03-14 2022-03-14 Outpatient Nagi KERNS [facility] [id number] Univers 11:30:00 11:30:00 ISIS kinney [facility] 2022-03-14 2022-03-14 Outpatient [facility] 1041 [id number] Univers 09:00:00 09:00:00 JONATHAN warnermervin [facility] 2022-03-10 2022-03-10 Outpatient Nagi FLORES [facility] [id number] Univers 09:00:00 09:00:00 JONATHAN warnermervin [facility] 2022-03-09 2022-03-09 Outpatient Nagi TANNER [facility] [id number] [id number] Univers 09:30:00 09:30:00 [facility] 2022-03-07 2022-03-08 Outpatient Nag[facility] [id number] Univers 16:00:00 12:59:08 JONATHAN [facility] 2022-03-07 2022-03-08 Telemedici [facility] 1.2.840.114 [id number] Univers 16:00:00 12:59:08 ne Visit Jonathan ROSEN 350.1.13.10 ity of [facility] 4.2.7.2.[place] [id number] [address] 2022-03-08 2022-03-08 Telephone [facility] 1.2.840.114 9 [id number] Univers 00:00:00 00:00:00 Jonathan BRITOTON 350.1.13.10 ity of [facility] 4.2.7.2.[place] [id number] [address] 2022-03-07 2022-03-07 Outpatient Nag[facility] 1041 [id number] Univers 16:00:00 16:00:00 JONATHAN kinney [facility] 2022-03-07 2022-03-07 Outpatient R FLORES [facility] 1041 [id number] Univers 16:00:00 16:00:00 JONATHAN kinney [facility] 2022-03-07 2022-03-07 Outpatient R FLORES [facility] 1041 [id number] Univers 16:00:00 16:00:00 JONATHAN kinney [facility] 2022-03-07 2022-03-07 Outpatient R FLORES [facility] 1041 [id number] Univers 09:00:00 09:00:00 JONATHAN mervin [facility] 2022-03-07 2022-03-07 Telephone [facility] 1.2.840.114 [id number] Univers 00:00:00 00:00:00 Isis ROSEN 350.1.13.10 i ty of [place] 4[place]2.[place].2.[place] [id number] Ar dical [address] 2022-03-07 2022-03-07 Prep For [facility] 1.2.840.114 [id number] Univers 00:00:00 00:00:00 Surgery Isis ROSEN 350.1.13.10 i ty of [facility] 4.2.7.2.[place] [id number] Ar dical NAL 188 [facility] 2022-03-06 2022-03-06 Telephone [facility] 1.2.840.114 9 [id number] Univers 00:00:00 00:00:00 Jonathan ROSEN 350.1.13.10 ity of [place] 4.2.7.2.[place] 859.6564010 Ar dical NAL 231 [facility] 2022-03-06 2022-03-06 Telephone [facility] 1.2.840.114 9 [id number] Univers 00:00:00 00:00:00 Jonathan ROSEN 350.1.13.10 ity of [place] 4[place]2.[place].2.[place] [id number] Ar dical NAL 231 [facility] 2022-03-03 2022-03-03 Outpatient R FLORES [facility] 1041 [id number] Univers 09:00:00 09:00:00 JONATHANLING kinney [facility] 2022-03-02 2022-03-02 Outpatient R FLORES [facility] [id number] [id number] Univers 09:00:00 09:00:00 JONATHAN kinney [facility] 2022-03-02 2022-03-02 Telephone [facility] 1.2.840.114 [id number] Univers 00:00:00 00:00:00 Isis ROSEN 350.1.13.10 i ty of [place] 4.2.7.2.[place] [id number] [facility] 188 [facility] 2022-03-02 2022-03-02 Telephone [facility] 1.2.840.114 [id number] Univers 00:00:00 00:00:00 Isis ROSEN 350.1.13.10 i ty of [place] 4[place]2.7.2.[place] [id number] Ar eliseo[address] 2022-03-01 2022-03-01 Telephone [facility] 1.2.840.114 9 [id number] Univers 00:00:00 00:00:00 Jonathan ROSEN 350.1.13.10 ity of [place] [id number] Ar dical [facility] 231 [facility] 2022-02-28 2022-02-28 Outpatient Nagi [facility]NER [facility] [id number] [id number] Univers 09:00:00 09:00:00 JONATHAN kinney [facility] 2022-02-24 2022-02-24 Outpatient Nagi [facility] [id number] Univers 09:00:00 09:00:00 JONATHAN kinney [facility] 2022-02-23 2022-02-23 Outpatient Nagi [facility] 1041 [id number] Univers 09:00:00 09:00:00 JONATHAN kinney [facility] 2022-02-23 2022-02-23 Telephone Flores [facility] 1.2.840.114 [id number] Univers 00:00:00 00:00:00 Jonathan ROSEN 350.1.13.10 ity of [place] 4.2.7.2.686 [place] [id number] [address] 2022-02-22 2022-02-22 Outpatient R FLORES [facility] [id number] [id number] Univers 09:15:00 23:59:00 JONATHAN ity [facility] 2022-02-22 2022-02-22 Hospital Jonathan Tanner [facility] 1. 2.840.114 [id number] Univers 08:37:40 23:59:00 Encounter Graeme Aidansheryl HEALTH 350.1.13.10 ity of [place] Nunez [place] 4.2.7.2.686 Yesy Armas [place] [id number] [address] ([facility]) 2022-02-22 2022-02-22 Hospital Jonathan Tanner [facility] 1. 2.840.114 [id number] Univers 08:37:40 23:59:00 Encounter Graeme Aidanan HEALTH 350.1.13.10 ity of [place] Nunezn [place] 4.2.7.2.686 Yesy Armas [place] [id number] [address] ([facility]) 2022-02-22 2022-02-22 Laboratory Only, [facility] Main Test [facility] 1.2 .840.114 [id number] Univers 09:00:00 09:15:00 Only Femi Sellers A HEALTH 350.1.13.10 it[place] of [place] [id number] [address] ([facility]) 2022-02-21 2022-02-21 Nurse 1, Adc Infusion Chair [facility] 1.2. 840.114 [id number] Univers 09:00:00 11:30:00 Visit Jonathan Tanner 350.1. 13.10 ity of [place].2.[place]ICAL [id number] [address] 2022-02-21 2022-02-21 Outpatient R FL[facility]ES [facility] [id number] Univers 09:15:00 09:15:00 JONATHAN [facility] 2022-02-21 2022-02-21 [facility] [id number] Univers 09:00:00 09:00:00 JONATHAN [facility] 2022-02-20 2022-02-20 [facility] 1.2.840.114 [id number] Univers 00:00:00 00:00:00 Jonathan ROSEN 350.1.13.10 ity [facility] [place] [phone] [address] 2022-02-17 2022-02-17 Nurse 1, Adc Infusion Chair [facility] 1.2. 840.114 [id number] Univers 09:00:00 11:30:00 Visit Jonathan Tanner 350.1. 13.10 ity [facility] [place] [phone] [address] 2022-02-17 2022-02-17 [facility] [id number] Univers 09:00:00 09:00:00 [facility]-17 2022-02-17 Outpatient R [facility]NER [facility] [id number] Univers 09:00:00 09:00:00 JONATHAN [facility] 2022-02-16 2022-02-16 [facility] [id number] Univers 09:30:00 09:30:00 [facility] 2022-02-14 2022-02-14 Nurse 2, Adc Infusion Chair [facility] 1.2. 840.114 [id number] Univers 11:30:00 14:00:00 Visit Jonathan Tanner 350.1. 13.10 ity [place] [id number] [address] 2022-02-14 2022-02-14 [facility] [id number] Univers 11:30:00 11:30:00 [facility] 2022-02-14 2022-02-14 [facility] [id number] Univers 11:30:00 11:30:00 [facility]22-02-14 [facility] [id number] Univers 09:00:00 09:00:00 [facility] 2022-02-14 2022-02-14 Orders Doctor YARED 1.2.840.114 [id number] Univers 00:00:00 00:00:00 Only Unassigned, PENELOPE 350.1.13.[address] [facility] 4.2.7.2.686 Ernst as [phone] [address] 2022-02-10 2022-02-10 Nurse 1, Adc Infusion Chair [facility] 1.2. 840.114 [id number] Univers 09:00:00 11:30:00 Visit Jonathan Tanner 350.1. 13.10 ity [facility] 4[place] [phone] [address] 2022-02-10 2022-02-10 Outpatient [facility] [id number] Univers 09:00:00 09:00[facility]00 [facility]22-[facility]-10 2022-02-10 [facility] [id number] Univers 09:00:00 09:00:00 [facility] 2022-02-10 [facility] 1.2.840.114 [id number] Univers 00:00:00 00:00:00 Jonathan A [place] 350.1.13.10 ity of [place] [id number] [facility] [address] [facility] 2022-02-10 2022-02-10 Telephone [facility] 1.2.840.114 9 [id number] [facility] 00:00:00 00:00:00 Jonathan BRITOTON 350.1.13.10 ity of [place] [id number] [facility] [address] [facility] 2022-02-09 2022-02-09 Nurse 1, Adc Infusion Chair [facility] 1.2. 840.114 [id number] [facility] 09:00:00 11:30:00 Visit Jonathan Tanner 350.1. 13.10 it[facility] [place].2.[place] [id number] [address] 2022-02-09 2022-02-09 Outpatient R [facility]ES [facility] 1041 [id number] [facility] 09:00:00 09:00:00 JONATHAN ity of [facility] 2022-02-09 2022-02-09 Telephone [facility] 1.2.840.114 [id number] [facility] 00:00:00 00:00:00 Jonathan ROSEN 350.1.13.10 ity of [facility] [place] [id number] [facility] [address] [facility] 2022-02-09 2022-02-09 [facility] 1.2.840.114 9 [id number] [facility] 00:00:00 00:00:00 Jonathan ROSEN 350.1.13.10 ity of [place] [id number] [facility] [address] [facility] 2022-02-07 2022-02-07 Outpatient R RADHAMES [facility]VEDO [facility] [id number] [facility] 11:30:00 12:59:10 RADHAMES ACEVEDO ity [facility] 2022-02-07 2022-02-07 Office Curtis [facility] 1.2.840.114 [id number] Univers 11:30:00 12:59:10 Visit Radhames ROSEN 350.1.13.10 ity of [place] 4[place] [id number] [facility] [address] [facility] 2022-02-07 2022-02-07 Nurse 1, Adc Infusion Chair [facility] 1.2. 840.114 [id number] Univers 09:00:00 11:30:00 Visit Jonathan Tanner 350.1. 13.10 ity of [facility] 4.[place] [id number] [address] 2022-02-07 2022-02-07 Outpatient [facility] [id number] Univers 09:00:00 09:00:00 JONATHAN kinney [facility] 2022-02-06 2022-02-06 [facility]phone [facility] 1.2.840.114 [id number] Univers 00:00:00 00:00:00 Jonathan ROSEN 350.1.13.10 ity of [place] [id number] [facility] [address] [facility] 2022-02-03 2022-02-03 Nurse 1, Adc Infusion Chair [facility] 1.2. 840.114 [id number] Univers 09:00:00 11:30:00 Visit Jonathan Tanner 350.1. 13.10 ity of [facility] 4.[place] [id number] [address] 2022-02-03 2022-02-03 Outpatient Nagi [facility] 1041 [id number] Univers 09:00:00 09:00:00 JONATHAN kinney [facility] 2022-02-03 2022-02-03 Outpatient [facility] [id number] Univers 09:00:00 09:00:00 JONATHAN kinney [facility] 2022-02-03 2022-02-03 Patient Flores [facility] 1.2.840.114 [id number] Univers 00:00:00 00:00:00 Secure Msg Jonathan ROSEN 350.1.13.10 ity of [facility] 4.[place] [id number] Ar dical [address] 2022-02-02 2022-02-02 Nurse 1, Adc Infusion Chair [facility] 1.2. 840.114 [id number] Univers 09:00:00 11:00:00 Visit Tanner, Jonathan ROSEN 350.1. 13.10 ity of [place] 4.2.[place].2.[place] [id number] [address] 2022-02-02 2022-02-02 [facility] 1040 [id number] Univers 09:00:00 09:00:00 JONATHAN ity [facility] 2022-02-02 2022-02-02 [facility] 1040 [id number] Univers 09:00:00 09:00:00 JONATHAN [facility] 2022-02-01 2022-02-01 Orders Doctor LAWSON 1.2.840.114 [id number] Univers 00:00:00 00:00:00 Only Unassigned, PENELOPE 350.1.13.10 ity of [facility] 4.2.7.2.686 Ernst as [id number] [address] 2022-01-31 2022-01-31 Nurse 1, Adc Infusion Chair [facility] 1.2. 840.114 [id number] Univers 09:00:00 11:00:00 Visit Tanner Jonathan ROSEN 350.1. 13.10 ity of [facility] 4.[place] [id number] [address] 2022-01-31 2022-01-31 [facility] [id number] [id number] Univers 09:00:00 09:00:00 JONATHAN kinney [facility] 2022-01-31 2022-01-31 Outpatient R [facility] 1040 [id number] Univers 09:00:00 09:00:00 JONATHAN kinney [facility] 2022-01-31 2022-01-31 Patient Pawel [facility] 1.2.840.114 [id number] Univers 00:00:00 00:00:00 Outreach Marleny ROSEN 350.1.13.10 it[place] of [place] 4[place] [id number] [address] 2022-01-31 2022-01-31 Patient Pawel [facility] 1.2.840.114 [id number] Univers 00:00:00 00:00:00 Outreach Marleny ROSEN 350.1.13.10 ity of [facility] 4.[place] [id number] [address] 2022-01-30 2022-01-30 Telephone Flores [facility] 1.2.840.114 9 [id number] Univers 00:00:00 00:00:00 Jonathan ROSEN 350.1.13.10 it[place] of [place] [id number] [address] 2022-01-27 2022-01-27 Nurse 1, Adc Infusion Chair [facility] 1.2. 840.114 [id number] Univers 10:00:00 12:00:00 Visit Jonathan Tanner 350.1. 13.10 ity of [facility] 4.[place] [id number] [address] 2022-01-27 2022-01-27 Outpatient Nagi [facility] 1040 [id number] Univers 10:00:00 10:00:00 JONATHAN kinney [facility] 2022-01-27 2022-01-27 Outpatient Nagi [facility] 1040 [id number] Univers 10:00:00 10:00:00 JONATHAN kinney [facility] 2022-01-26 2022-01-26 Nurse 1, Adc Infusion Chair [facility] 1.2. 840.114 [id number] Univers 10:00:00 12:00:00 Visit Jonathan Tanner 350.1. 13.10 ity of [place] 4.[place] [id number] [place] [address] [place] 2022-01-26 2022-01-26 [facility] 1040 [id number] Univers 10:00:00 10:00:00 JONATHAN kinney [facility] 2022-01-26 2022-01-26 [facility] 1040 [id number] Univers 10:00:00 10:00:00 JONATHAN kinney [facility] 2022-01-25 2022-01-25 [facility] 1.2.840.114 [id number] Univers 00:00:00 00:00:00 Jonathan ROSEN 350.1.13.10 ity of [facility] 4.[place] [id number] Ar dic[address] 2022-01-24 2022-01-24 Telemedici [facility] 1.2.840.114 [id number] Univers 16:00:00 16:40:00 ne Visit Jonathan ROSEN 350.1.13.10 ity of [place] 4[place] [id number] Ar dical [address] 2022-01-24 2022-01-24 [facility] 1040 [id number] Univers 16:00:00 16:00:00 JONATHAN kinney [facility] 2022-01-24 2022-01-24 Nurse 1, Adc Infusion Chair [facility] 1.2. 840.114 [id number] Univers 09:00:00 11:00:00 Visit Jonathan Tanner 350.1. 13.10 ity of [place] 4[place] [id number] [address] 2022-01-24 2022-01-24 Outpatient R [facility] 1040 [id number] Univers 09:00:00 09:00:00 JONATHAN ity [facility] 2022-01-24 2022-01-24 Outpatient R [facility] 1040 [id number] Univers 09:00:00 09:00:00 JOANTHAN ity [facility] 2022-01-24 2022-01-24 Outpatient R [facility]ES [facility] 1040 [id number] Univers 09:00:00 09:00:00 JONATHAN [facility] 2022-01-20 2022-01-20 Nurse 2, Adc Infusion Chair [facility] 1.2. 840.114 [id number] Univers 09:00:00 11:30:00 Visit Jonathan Tanner 350.1. 13.10 ity bryon [facility] [place] [id number] [address] 2022-01-20 2022-01-20 Outpatient R [facility]ES [facility] 1040 [id number] Univers 09:00:00 09:00:00 [facility] 2022-01-20 Outpatient R FL[facility]ES [facility] 1040 [id number] Univers 09:00:00 09:00:00 JONATHAN [facility] 2022-01-19 2022-01-19 Nurse 1, Adc Infusion Chair [facility] 1.2. 840.114 [id number] Univers 09:00:00 11:00:00 Visit Jonathan Tanner 350.1. 13.10 ity of [place] [id number] [address] 2022-01-19 2022-01-19 Outpatient R TANNER, [facility] 1040 [id number] Univers 09:00:00 09:00:00 [facility] 2022-01-19 Outpatient Nagi [facility]NER [facility] 1040 [id number] Univers 09:00:00 09:00:00 JONATHAN kinney [facility] 2022-01-19 2022-01-19 Outpatient GENE [facility] 739 [place] 01:28:00 01:28:00 HN 0714 [facility] 2022-01-19 2022-01-19 [facility]ill [facility] .2.840.114 [id number] Univers 00:00:00 00:00:00 Jonathan ROSEN 350.1.13.10 ity [place] [id number] [address] 2022-01-17 2022-01-17 Outpatient [facility] 1040 [id number] Univers 09:00:00 09:00:00 JONATHAN kinney [facility] 2022-01-13 2022-01-13 [facility] 1040 [id number] Univers 09:15:00 09:15:00 JONATHAN [facility] 2022-01-12 2022-01-12 Nurse 1, Adc Infusion Chair [facility] 1.2. 840.114 [id number] Univers 09:15:00 11:15:00 Visit Jonathan Tanner 350.1. 13.10 ity [place]on [place] [id number] [place] [address] [place] 2022-01-12 2022-01-12 Outpatient Nagi T[facility]NER [facility] 1040 [id number] Univers 09:15:00 09:15:00 [facility] 2022-01-11 2022-01-11 Telephone [facility] 1.2.840.114 [id number] Univers 00:00:00 00:00:00 Jonathan ROSEN 350.1.13.10 ity [place] [id number] Ar dical NAL [address] [facility] 2022-01-10 2022-01-10 Nurse 1, Adc Infusion Chair [facility] 1.2. 840.114 [id number] Univers 09:15:00 11:15:00 Visit Jonathan Tanner 350.1. 13.10 ity of [facility] 4.2.7.2.[place] [id number] [place] [address] [place] 2022-01-10 2022-01-10 [facility] 1040 [id number] Univers 09:15:00 09:15:00 JONATHAN ity [facility] 2022-01-06 2022-01-06 [facility] 1040 [id number] Univers 09:15:00 09:15:00 JONATHAN y [facility] 2022-01-06 2022-01-06 Outpatient R [facility]ES [facility] 1040 [id number] Univers 09:15:00 09:15:00 JONATHAN [facility] 2022-01-05 2022-01-05 [facility] 1040 [id number] Univers 09:15:00 09:15:00 JONATHAN [facility] 2022-01-05 2022-01-05 [facility] 1.2.840.114 [id number] Univers 00:00:00 00:00:00 Jonathan ROSEN 350.1.13.10 ity of [facility] 4.[place] [id number] Ar dical NAL 044 [facility] 2022-01-03 2022-01-03 Nurse 1, Adc Infusion Chair [facility] 1.2. 840.114 [id number] Univers 09:15:00 11:15:00 Visit Jonathan Tanner 350.1. 13.10 ity of [facility] 4.2.7.2.[place] [id number] [place] [address] [place] 2022-01-03 2022-01-03 Outpatient R TANNER [facility] 1040 [id number] Univers 09:15:00 09:15:00 JONATHAN warnermervin [facility] 2022-01-03 2022-01-03 Outpatient R FLORES [facility] 1040 [id number] Univers 09:15:00 09:15:00 JONATHAN warnermervin [facility] 2022-01-02 2022-01-02 [facility] [id number] Univers 09:00:00 09:32:52 ISIS kinney [facility] 2022-01-02 2022-01-02 Office [facility] 1.2.451.899 [id number] Univers 09:00:00 09:32:52 Visit Isis ROSEN 350.1.13.10 i ty of [place].2.[place] [id number] Ar dical NAL [address] [facility] 2021-12-29 2021-12-30 Out[facility] [id number] [id number] Univers 15:40:00 14:52:04 JONATHAN warnermervin [facility] 2021-12-29 2021-12-30 Telemedici [facility] 1.2.840.114 [id number] Univers 15:40:00 14:52:04 ne Visit Jonathan ROSEN 350.1.13.10 ity of [facility] 4.2.[place].2.[place] [id number] Ar dickarol [facility] [address] [facility] 2021-12-30 2021-12-30 Nurse 1, Adc Infusion Chair [facility] 1.2. 840.114 [id number] Univers 09:15:00 11:15:00 Visit Jonathan Tanner 350.1. 13.10 ity of [facility] 4.[place].2.[place] [id number] [facility] [address] [place] 2021-12-30 2021-12-30 Outpatient [facility] 1040 [id number] Univers 09:15:00 09:15:00 JONATHAN kinney [facility] 2021-12-30 2021-12-30 Outpatient R FLORES [facility] 1040 [id number] Univers 09:15:00 09:15:00 JONATHAN kinney [facility] 2021-12-30 2021-12-30 Telephone Tanner, [facility] 1.2.840.114 9 [id number] Univers 00:00:00 00:00:00 Jonathan ROSEN 350.1.13.10 ity of [place] [id number] [address] 2021-12-30 2021-12-30 Telephone Tanner, [facility] 1.2.840.114 9 [id number] Univers 00:00:00 00:00:00 Jonathan ROSEN 350.1.13.10 ity of [place] [id number] [address] 2021-12-30 2021-12-30 Telephone Tanner, [facility] 1.2.840.114 9 [id number] Univers 00:00:00 00:00:00 Jonathan ROSEN 350.1.13.10 ity of [place] [id number] [address] 2021-12-30 2021-12-30 Orders Doctor YARED 1.2.840.114 [id number] Univers 00:00:00 00:00:00 Only Unassigned, PENELOPE 350.1.13.[address] [facility] 4.2.7.2.686 Ernst as [id number] [address] 2021-12-29 2021-12-29 Outpatient Nagi [facility]NER [facility] 1038 [id number] Univers 15:40:00 15:40:00 JONATHAN kinney [facility] 2021-12-29 2021-12-29 Outpatient [facility] 1038 [id number] Univers 15:40:00 15:40:00 JONATHAN kinney [facility] 2021-12-29 2021-12-29 Outpatient R FLORES [facility] 1038 [id number] Univers 15:40:00 15:40:00 JONATHAN kinney [facility] 2021-12-29 2021-12-29 Outpatient R [facility] 1038 [id number] Univers 09:15:00 09:15:00 JONATHAN kinney [facility] 2021-12-28 2021-12-28 [facility]phone [facility] 1.2.840.114 9 [id number] Univers 00:00:00 00:00:00 Jonathan ROSEN 350.1.13.10 ity of [place] [id number] Ar florentin [facility] 0[address] [facility] 2021-12-27 2021-12-27 Nurse 1, Adc Infusion Chair [facility] 1.2. 840.114 [id number] [facility] 09:15:00 11:15:00 Visit Jonathan Tanner 350.1. 13.10 ity of [facility] 4.2.7.2.[place] [id number] [facility] [address] [place] 2021-12-27 2021-12-27 Outpatient R FLORES [facility] 1040 [id number] Univers 09:15:00 09:15:00 JONATHAN kinney [facility] 2021-12-26 2021-12-26 Patient Pawel [facility] 1.2.840.114 [id number] Univers 00:00:00 00:00:00 Outreach Marleny ROSEN 350.1.13.10 ity of [place] [id number] Ar florentin [place] [address] [facility] 2021-12-26 2021-12-26 [facility]phone [facility] 1.2.840.114 9 [id number] Univers 00:00:00 00:00:00 Jonathan ROSEN 350.1.13.10 ity of [place] 4[place] [id number] Ar florentin [facility] 044 [facility] 2021-12-26 2021-12-26 Telephone Flores NJDERRELL 1.2.840.114 9 [id number] Univers 00:00:00 00:00:00 Jonathan ROSEN 350.1.13.10 ity of [place] [id number] [address] 2021-12-26 2021-12-26 Patient Pawel [facility] 1.2.840.114 [id number] [facility] 00:00:00 00:00:00 Outreach Marleny ROSEN 350.1.13.10 ity of [place] 4[place] [id number] Ar dic[address] 2021-12-26 2021-12-26 Patient Pawel [facility] 1.2.840.114 [id number] [facility] 00:00:00 00:00:00 Outreach Marleny ROSEN 350.1.13.10 ity of [place] 4[place] [id number] [address] 2021-12-23 2021-12-23 Nurse 1, Adc Infusion Chair [facility] 1.2. 840.114 [id number] Univers 09:00:00 13:00:00 Visit Jonathan Tanner 350.1. 13.10 ity of [facility] 4.[place] [id number] [address] 2021-12-23 2021-12-23 Outpatient R [facility]ES [facility] 1040 [id number] Univers 09:00:00 09:00:00 JONATHAN kinney [facility] 2021-12-23 2021-12-23 Outpatient R [facility]ES [facility] 1040 [id number] Univers 09:00:00 09:00:00 JONATHAN kinney [facility] 2021-12-23 2021-12-23 Outpatient R [facility] 1040 [id number] Univers 09:00:00 09:00:00 JONATHAN kinney [facility] 2021-12-23 2021-12-23 Telephone Flores [facility] 1.2.840.114 9 [id number] Univers 00:00:00 00:00:00 Jonathan ROSEN 350.1.13.10 ity of [place] [id number] [facility] 044 [facility] 2021-12-22 2021-12-22 [facility] 1040 [id number] Univers 15:20:00 16:52:25 JONATHAN ity [facility] 2021-12-22 2021-12-22 Office Tanner, [facility] 1.2.840.114 [id number] Univers 15:20:00 16:52:25 Visit Jonathan BRITOTON 350.1.13.10 ity of [place] 4[place] [id number] [facility] 231 [facility] 2021-12-22 2021-12-22 Office Tanner, [facility] 1.2.840.114 [id number] Univers 15:20:00 16:52:25 Visit Jonathan ROSEN 350.1.13.10 ity of [place] 4[place]2.[place] [id number] [facility] 231 [facility] 2021-12-22 2021-12-22 [facility] 1040 [id number] Univers 15:20:00 15:20:00 JONATHAN kinnye [facility] 2021-12-22 2021-12-22 [facility] 1040 [id number] Univers 15:20:00 15:20:00 JONATHAN ity [facility] 2021-12-22 2021-12-22 Nurse 1, Adc Infusion Chair [facility] 1.2. 840.114 [id number] Univers 11:15:00 13:15:00 Visit Jonathan Tanner 350.1. 13.10 ity of [place] 4[place]2.[place].2.[place] [id number] [place] [address] [place] 2021-12-22 2021-12-22 Outpatient R FLORES, [facility] 1040 [id number] Univers 09:00:00 09:00:00 JONATHAN warnermervin [facility] 2021-12-22 2021-12-22 Telephone Flores [facility] 1.2.840.114 [id number] Univers 00:00:00 00:00:00 Jonathan ROSEN 350.1.13.10 ity of [facility] [place] [id number] Ar dical NAL 231 [facility] 2021-12-22 2021-12-22 Refcristin Acevedo [facility] 1.2.840.114 [id number] Univers 00:00:00 00:00:00 Radhames ROSEN 350.1.13.10 ity of [facility] 4.[place].2.[place] [id number] Ar dical NAL 044 [facility] 2021-12-20 2021-12-20 Nurse 1, Adc Infusion Chair [facility] 1.2. 840.114 [id number] Univers 09:00:00 13:00:00 Visit Jonathan Tanner XAVI 350.1. 13.10 ity of [place] [id number] [facility] [address] 2021-12-20 2021-12-20 Outpatient Nagi [facility] 1040 [id number] Univers 09:00:00 09:00:00 JONATHAN kinney [facility] 2021-12-20 2021-12-20 Outpatient Nagi [facility] 1040 [id number] Univers 09:00:00 09:00:00 JONATHAN kinney [facility] 2021-12-20 2021-12-20 Outpatient Nagi [facility] 1040 [id number] Univers 09:00:00 09:00:00 JONATHAN warnermervin [facility] 2021-12-19 2021-12-19 Emergency X , [facility] ERT [id number] Univers 09:29:00 11:53:00 KARLA kinney [facility] 2021-12-19 2021-12-19 Emergency [facility] 1.2.041.889 [id number] Univers 09:29:00 11:53:00 Karla ROSEN 350.1.13.10 i ty [facility] [place] [id number] [place] [id number] [place] 2021-12-19 2021-12-19 Emergency X SINGER [facility] ERT [id number] Univers 09:29:00 11:53:00 KARLA kinney [facility] 2021-12-19 2021-12-19 [facility] [id number] Univers 09:30:00 09:30:00 LYNNETTE timmy o f [facility] 2021-12-19 2021-12-19 Nurse Nurse, [facility] [id number] Univers 09:30:00 09:30:00 Visit Jacqueline [facility] [id number] ity [facility] [id number] Ernst as ЕКАТЕРИНА?BLEA [phone] Ar florentin EY [address] [place] MEDICAL OFF[facility]ING 2021-12-19 2021-12-19 [facility] [id number] Univers 00:00:00 00:00:00 Jonathan ROSEN [id number] ity [facility] [id number] [facility] [phone] Ar florentin [facility] [address] BU[address]ING 2021-12-16 2021-12-16 Outpatient R [facility] [id number] Univers 09:00:00 09:00:00 JONATHAN kinney [facility] 2021-12-16 2021-12-16 [facility] [id number] Univers 09:00:00 09:00:00 JONATHAN kinney [facility] 2021-12-16 2021-12-16 Telephone Tanner, [facility] [id number] Univers 00:00:00 00:00:00 Jonathan ROSEN [id number] ity [facility] [id number] [phone] Ar dical NAL [address] [facility] 2021-12-15 2021-12-15 Nurse 1, Adc Infusion Chair [facility] 1.2. [id number] [id number] Univers 09:00:00 11:00:00 Visit Jonathan Tanner Valery ROSEN 350.1. 13.10 ity [facility] [id number] [phone] [facility] [address] [place] 2021-12-15 2021-12-15 Outpatient R [facility] [id number] Univers 09:00:00 09:00:00 JONATHAN kinney [facility] 2021-12-15 2021-12-15 Outpatient R [facility] [id number] Univers 09:00:00 09:00:00 JONATHAN kinney [facility] 2021-12-15 2021-12-15 Patient Flores [facility] [id number] [id number] Univers 00:00:00 00:00:00 Secure Msg Jonathan ROSEN [id number] ity [facility] [facility] [place] [id number] Ar dicri NAL 044 [facility] 2021-12-14 2021-12-14 Emergency X [facility] ERT [id number] Univers 10:47:00 11:26:00 KARLA kinney [facility] 2021-12-14 2021-12-14 Emergency [facility] 1.2.206.872 [id number] Univers 10:47:00 11:26:00 Karla ROSEN 350.1.13.10 i ty [facility] [place].2.7.2.[place] [id number] [facility] [address] [place] 2021-12-14 2021-12-14 Outpatient Nagi [facility]UZ [facility] [id number] Univers 11:20:00 11:20:00 ALEX kinney [facility] 2021-12-14 2021-12-14 Telephone Anny [facility] 1.2.840.114 [id number] Univers 00:00:00 00:00:00 Isis ROSEN 350.1.13.10 i ty of [facility] [place] [id number] Ar dical NAL [address] [facility] 2021-12-13 2021-12-13 Nurse 1, Adc Infusion Chair [facility] 1.2. 840.114 [id number] Univers 09:00:00 13:00:00 Visit Jonathan Tanner 350.1. 13.10 ity [facility] [place]2.[place].2.[place] [id number] [facility] [address] [place] 2021-12-13 2021-12-13 Outpatient Nagi [facility] [id number] Univers 09:00:00 09:00:00 [facility] 2021-12-13 2021-12-13 Outpatient Nagi [facility] [id number] Univers 09:00:00 09:00:00 [facility] 2021-12-08 2021-12-09 Outpatient Nagi TANNER [facility] [id number] Univers 15:20:00 16:24:20 JONATHAN [facility] 2021-12-08 2021-12-09 [facility] [id number] Univers 15:20:00 16:24:20 JONATHAN [facility] 2021-12-08 2021-12-09 [facility] 1.2.840.114 [id number] Univers 15:20:00 16:24:20 ne Visit Jonathan ROSEN 350.1.13.10 ity [facility] [place] [id number] [facility] 231 [facility] 2021-12-09 2021-12-09 Outpatient Nag[facility] [id number] Univers 09:04:00 15:41:00 ISIS kinney [facility] 2021-12-092021-12-09 [facility] 1.2.840.114 [id number] Univers 09:04:00 15:41:00 Encounter Isis ROSEN 350.1.13.10 ity of [place] 4.2.7.2.[place] [id number] [facility] [address] 2021-12-09 2021-12-09 Outpatient R [facility] [id number] Univers 09:04:00 15:41:00 ISIS mervin [facility] 2021-12-09 2021-12-09 Outpatient R [facility] [id number] Univers 09:04:00 15:41:00 ISIS [facility] 2021-12-09 2021-12-09 Surgery [facility] 1.2.756.219 [id number] Univers 12:00:00 13:30:00 Isis BRITOLAYLA 350.1.13.10 i ty of [place] 4.2.7.2.[place] [id number] [facility] [address] 2021-12-09 2021-12-09 Laboratory Only, Adc Test [facility] 1.2.840. 114 [id number] Univers 07:45:00 08:00:00 Only Isis Kerns 350.1.13.10 ity of [facility] 4.2.[place].2.[place] [id number] [facility] [address] 2021-12-09 2021-12-09 Orders Doctor YARED 1.2.840.114 [id number] Univers 00:00:00 00:00:00 Only Unassigned, PENELOPE 350.1.13.10 ity of [place] [facility] 4.2.7.2.686 Ernst as [id number] [facility] [address] 2021-12-08 2021-12-08 Outpatient Nagi [facility] [id number] Univers 15:20:00 15:20:00 JONATHAN kinney [facility] 2021-12-08 2021-12-08 Nurse 1, Adc Infusion Chair [facility] 1.2. 840.114 [id number] Univers 09:00:00 11:00:00 Visit Jonathan Tanner 350.1. 13.10 ity of [place] 4.2.7.2.[place] [id number] [facility] [place] 478093 Branch 2021-12-08 2021-12-08 Outpatient R FLORES [facility] [id number] Univers 09:00:00 09:00:00 JONATHAN mervin [facility] 2021-12-06 2021-12-06 Office Elliott Zayas [facility] 1.2.840.114 [id number] Univers 16:45:00 17:00:00 Visit Sallie CARTER 350.1.13.10 ity of [place] 4.2.7.2.686 [facility] [id number] [address] [facility] 2021-12-06 2021-12-06 Outpatient R ELLIOTT ZAYAS [facility] [id number] Univers 16:45:00 16:45:00 ity [facility] 2021-12-06 2021-12-06 Outpatient R ELLIOTT ZAYAS [facility] [id number] Univers 16:45:00 16:45:00 [facility] 2021-12-06 2021-12-06 Nurse 1, [facility] Infusion Chair [facility] 1.2. 840.114 [id number] Univers 09:00:00 13:00:00 Visit Jonathan Tanner 350.1. 13.10 ity bryon [place] [id number] [address] 2021-12-06 2021-12-06 Outpatient R FLORES [facility] [id number] Univers 09:00:00 09:00:00 JONATHAN mervin [facility] 2021-12-06 2021-12-06 Telephone Flores [facility] 1.2.840.114 [id number] Univers 00:00:00 00:00:00 Jonathan ROSEN 350.1.13.10 ity of [place] 4[place] [id number] Ar florentin [address] 2021-12-02 2021-12-02 Nurse 1, Adc Infusion Chair [facility] 1.2. 840.114 [id number] Univers 09:00:00 13:00:00 Visit Jonathan Tanner 350.1. 13.10 ity of [place] 4.2.7.2.[place] [id number] [address] 2021-12-02 2021-12-02 Outpatient R FLORES, [facility] [id number] Univers 09:00:00 09:00:00 JONATHAN [facility] 2021-12-02 2021-12-02 [facility] [id number] Univers 09:00:00 09:00:00 JONATHAN [facility] 2021-12-01 2021-12-01 Nurse 1, Adc Infusion Chair [facility] 1.2. 840.114 [id number] Univers 09:00:00 11:00:00 Visit Jonathan Tanner 350.1. 13.10 ity of [place] 4.2.7.2.[place] [id number] [address] 2021-12-01 2021-12-01 [facility] [id number] Univers 09:00:00 09:00:00 JONATHAN [facility] 2021-12-01 2021-12-01 [facility] [id number] Univers 09:00:00 09:00:00 JONATHAN [facility] 2021-11-29 2021-11-29 Nurse 1, Adc Infusion Chair [facility] 1.2. 840.114 [id number] Univers 09:00:00 13:00:00 Visit Jonathan Tanner 350.1. 13.10 ity of [place] 4.2.7.2.[place] [id number] [address] 2021-11-29 2021-11-29 Out[facility] [id number] Univers 09:00:00 09:00:00 JONATHAN gregoria [facility] 2021-11-29 2021-11-29 Outpatient R FLORES [facility] [id number] Univers 09:00:00 09:00:00 JONATHAN ity [facility] 2021-11-29 2021-11-29 Prep For Anny [facility] ..840.114 [id number] Univers 00:00:00 00:00:00 Surgery Isis XAVI 350.1.13.10 i ty of [facility] 4.2.[place].2.[place] [id number] Ar dical NAL 188 [facility] 2021-11-28 2021-11-28 Outpatient R KERNS, [facility] [id number] Univers 09:00:00 09:29:24 ISIS gregoria [facility] 2021-11-28 2021-11-28 Office Anny [facility] 1..333.590 0114 [id number] Univers 09:00:00 09:15:00 Visit Isis ROSEN 350.1.13.10 i ty of [facility] 4.2.[place].2.[place] [id number] Ar dical NAL [address] [place] [address] 2021-11-28 2021-11-28 Outpatient R KERNS, [facility] [id number] Univers 09:00:00 09:00:00 ISIS gregoria [facility] 2021-11-28 2021-11-28 Refill Flores [facility] ..840.114 [id number] Univers 00:00:00 00:00:00 Jonathan ROSEN 350.1.13.10 ity of [place] 4[place]2.7.2.[place] [id number] Ar dickarol SEXTON 044 [facility] 2021-11-25 2021-11-25 Nurse 1, Adc Infusion Chair [facility] 1.2. 840.114 [id number] Univers 09:00:00 13:00:00 Visit Jonathan Tanner 350.1. 13.10 ity of [facility] 4.2.[place].2.[place] [id number] [address] 2021-11-25 2021-11-25 Outpatient R FLORES [facility] [id number] Univers 09:00:00 09:00:00 JONATHAN mervin [facility] 2021-11-25 2021-11-25 Outpatient R FLORES [facility] [id number] Univers 09:00:00 09:00:[facility] 2021-11-24 2021-11-24 Nurse 1, Adc Infusion Chair [facility] 1.2. 840.114 [id number] Univers 09:00:00 11:00:00 Visit Jonathan Tanner 350.1. 13.10 ity of [place] 4.2.7.2.[place] [id number] [address] 2021-11-24 2021-11-24 Outpatient R FLORES [facility] [id number] Univers 09:00:00 09:00:00 JONATHAN [facility] 2021-11-24 2021-11-24 Outpatient R FLORES [facility] [id number] Univers 09:00:00 [facility] 2021-11-24 Patient Flores [facility] 1.2.840.114 [id number] Univers 00:00:00 00:00:00 Secure Msg Jonathan ROESN 350.1.13.10 ity of [facility] 4.2.[place].2.[place] [id number] Ar dical NAL 044 [facility] 2021-11-23 2021-11-23 Ancillary Aicha Fulton [facility] 1 .2.840.114 [id number] Univers 10:00:00 11:00:00 Visit Jess Whiting 350.1.13.10 ity of [facility] 4.2.[place] [id number] Ar dical NAL 178 [facility] 2021-11-23 2021-11-23 Outpatient R JOHANNE [facility] [id number] Univers 10:00:00 10:00:00 JESS [facility] 2021-11-23 2021-11-23 Telephone Dover [facility] 1.2.704.411 [id number] Univers 00:00:00 00:00:00 Ronaldo CARTER 350.1.13.10 ity of [facility] 4.2.7.2.[place] CENTER [id number] [facility] AND [address] [facility] 2021-11-22 2021-11-22 Outpatient R ANNY [facility] [id number] Univers 14:00:00 14:00:00 ISIS kinney [facility] 2021-11-22 2021-11-22 Outpatient R FLORES [facility] [id number] Univers 09:00:00 09:00:00 JONATHAN kinney [facility] 2021-11-22 2021-11-22 Outpatient R FLORES [facility] [id number] Univers 09:00:00 09:00:00 JONATHAN kinney [facility] 2021-11-17 2021-11-18 [facility]medici [facility] 1.2.840.114 [id number] Univers 15:20:00 16:09:26 ne Visit Jonathan ROSEN 350.1.13.10 ity bryon [place] 4.2.7.2.686 [facility] [id number] Ar dical [facility] 231 [facility] 2021-11-17 2021-11-18 Outpatient Nagi TANNER [facility] [id number] Univers 15:20:00 16:09:26 JONATHAN kinney [facility] 2021-11-18 2021-11-18 Nurse 1, Adc Infusion Chair [facility] 1.2. 840.114 [id number] Univers 09:00:00 13:00:00 Visit Jonathan Tanner 350.1. 13.10 ity [facility] 4.2.7.2.[place] [id number] [facility] [address] 2021-11-18 2021-11-18 Outpatient R FLORES [facility] [id number] Univers 09:00:00 09:00:00 JONATHAN mervin [facility] 2021-11-18 2021-11-18 Outpatient R FLORES [facility] [id number] Univers 09:00:00 09:00:00 JONATHAN mervin [facility] 2021-11-18 2021-11-18 Outpatient R FLORES [facility] [id number] Univers 09:00:00 09:00:00 JONATHAN mervin [facility] 2021-11-17 2021-11-17 Outpatient R FLORES [facility] [id number] Univers 15:20:00 15:20:00 JONATHAN [facility] 2021-11-17 2021-11-17 Outpatient R FLORES [facility] [id number] Univers 15:20:00 15:20:00 JONATHAN [facility] 2021-11-17 2021-11-17 Outpatient R FLORES [facility] [id number] Univers 15:20:00 15:20:00 JONATHAN [facility] 2021-11-17 2021-11-17 Outpatient R FLORES [facility] [id number] Univers 15:20:00 15:20:00 JONATHAN [facility] 2021-11-17 2021-11-17 Outpatient R FLORES [facility] [id number] Univers 15:20:00 15:20:00 JONATHAN [facility] 2021-11-17 2021-11-17 Outpatient R FLORES [facility] [id number] Univers 15:20:00 15:20:00 [facility] 2021-11-17 2021-11-17 Nurse 1, Adc Infusion Chair [facility] 1.2. 840.114 [id number] Univers 09:00:00 11:00:00 Visit Jonathan Tanner 350.1. 13.10 ity [facility] 4.2.7.2.[place] [id number] [address] 2021-11-17 2021-11-17 Outpatient R FLORES [facility] [id number] Univers 09:00:00 09:00:00 JONATHAN ity [facility] 2021-11-17 2021-11-17 Outpatient R FLORES [facility] [id number] Univers 09:00:00 09:00:00 [facility] 2021-11-15 2021-11-15 Nurse 1, Adc Infusion Chair [facility] 1.2. 840.114 [id number] Univers 09:00:00 13:00:00 Visit Jonathan Tanner 350.1. 13.10 ity [facility] 4.2.7.2.[place] [id number] [address] 2021-11-15 2021-11-15 Out[facility] [id number] Univers 09:00:00 09:00:00 JONATHAN [facility] 2021-11-15 2021-11-15 Out[facility] [id number] Univers 09:00:00 09:00:00 [facility] 2021-11-11 2021-11-11 Nurse 2, Adc Infusion Chair [facility] 1.2. 840.114 [id number] Univers 09:00:00 11:00:00 Visit Jonathan Tanner 350.1. 13.10 ity [facility] 4.2.7.2.[place] [id number] [address] 2021-11-11 2021-11-11 Outpatient Nagi [facility] [id number] Univers 09:00:00 09:00:00 [facility] 2021-11-11 2021-11-11 Outpatient [facility] [id number] Univers 09:00:00 09:00:00 [facility] 2021-11-11 2021-11-11 Outpatient R FLORES [facility] [id number] Univers 09:00:00 09:00:00 JONATHAN [facility] 2021-11-11 2021-11-11 Telephone Kerns [facility] 1.2.840.114 [id number] Univers 00:00:00 00:00:00 Isis ROSEN 350.1.13.10 i ty of [place] 4[place]2.[place].2.[place] [id number] Ar dical NAL 188 [facility] 2021-11-10 2021-11-10 Nurse 2, Adc Infusion Chair [facility] 1.2. 840.114 [id number] Univers 08:30:00 09:30:00 Visit Jonathan Tanner 350.1. 13.10 ity of [place] 4.2.7.2.[place] [id number] [address] 2021-11-10 2021-11-10 Out[facility] [id number] Univers 08:30:00 08:30:00 [facility] 2021-11-10 2021-11-10 Outpatient [facility] [id number] Univers 08:30:00 08:30:00 [facility] 2021-11-10 2021-11-10 Outpatient Nagi TANNER [facility] [id number] Univers 08:30:00 08:30:00 JONATHAN [facility] 2021-11-08 2021-11-09 Telemedici [facility] 1.2.840.114 [id number] Univers 16:00:00 10:38:12 ne Visit Jonathan ROSEN 350.1.13.10 ity of [place] 4.2.7.2.[place] [id number] Ar dical NAL 231 [facility] 2021-11-08 2021-11-09 Out[facility] [id number] Univers 16:00:00 10:38:12 JONATHAN [facility] 2021-11-08 2021-11-08 Outpatient Nagi [facility] [id number] Univers 16:00:00 16:00:00 JONATHAN mervin [facility] 2021-11-08 2021-11-08 Outpatient Nagi [facility]NER [facility] [id number] Univers 16:00:00 16:00:00 JONATHAN [facility] 2021-11-08 2021-11-08 Nurse 1, Adc Infusion Chair [facility] 1.2. 840.114 [id number] Univers 09:00:00 11:00:00 Visit Jonathan Tanner 350.1. 13.10 ity [place].2.[place] [id number] [address] 2021-11-08 2021-11-08 Outpatient R FLORES [facility] [id number] Univers 09:00:00 09:00:00 JONATHANLING kinney [facility] 2021-11-08 2021-11-08 Outpatient R FLORES [facility] [id number] Univers 09:00:00 09:00:00 JONATHAN [facility] 2021-11-04 2021-11-04 Nurse 2, Adc Infusion Chair [facility] 1.2. 840.114 [id number] Univers 09:00:00 11:00:00 Visit Jonathan Tanner 350.1. 13.10 ity [place] [id number] [address] 2021-11-04 2021-11-04 Outpatient R FLORES [facility] [id number] Univers 09:00:00 09:00:00 JONATHAN [facility] 2021-11-04 2021-11-04 Outpatient R FLORES [facility] [id number] Univers 09:00:00 09:00:00 JONATHAN ity [facility] 2021-11-04 2021-11-04 Out[facility] [id number] Univers 09:00:00 09:00:00 JONATHAN warnermervin [facility] 2021-11-03 2021-11-03 Nurse 2, Adc Infusion Chair [facility] 1.2. 840.114 [id number] Univers 09:00:00 10:00:00 Visit Jonathan Tanner 350.1. 13.10 ity [facility] 4.2.7.2.[place] [id number] [address] 2021-11-03 2021-11-03 Outpatient R FLORES [facility] [id number] Univers 09:00:00 09:00:00 JONATHAN warnermervin [facility] 2021-11-03 2021-11-03 [facility] [id number] Univers 09:00:00 09:00:00 JONATHAN warnermervin [facility] 2021-11-03 2021-11-03 Outpatient [facility] [id number] Univers 09:00:00 09:00:00 JONATHAN warnermervin [facility] 2021-11-03 2021-11-03 [place] [address].2.840.114 [id number] Univers 00:00:00 00:00:00 Jonathan ROSEN 350.1.13.10 ity [facility] 4.2.[place].2.[place] [id number] [address] 2021-11-01 2021-11-01 Nurse 1, Adc Infusion Chair [facility] 1.2. 840.114 [id number] Univers 09:00:00 11:00:00 Visit Jonathan Tanner 350.1. 13.10 ity [facility] 4.2.[place].2.[place] [id number] [address] 2021-11-01 2021-11-01 Out[facility] [id number] Univers 09:00:00 09:00:00 JONATHAN warnermervin [facility] 2021-11-01 2021-11-01 Outpatient Nagi [facility] [id number] Univers 09:00:00 09:00:00 JONATHANLING kinney [facility] 2021-11-01 2021-11-01 Outpatient Nagi [facility] [id number] Univers 09:00:00 09:00:00 JONATHANLING kinney [facility] 2021-10-28 2021-10-28 Outpatient Nagi [facility] [id number] Univers 16:20:00 16:20:00 JONATHANLING kinney [facility] 2021-10-28 2021-10-28 Nurse 2, Adc Infusion Chair [facility] 1.2. 840.114 [id number] Univers 08:30:00 10:30:00 Visit Jonathan Tanner 350.1. 13.10 ity [facility] 4.2.[place].2.[place] [id number] [address] 2021-10-28 2021-10-28 Outpatient Nagi [facility] [id number] Univers 08:30:00 08:30:00 JONATHAN ity [facility] 2021-10-28 2021-10-28 Outpatient Nagi [facility] [id number] Univers 08:30:00 08:30:00 JONATHAN ity [facility] 2021-10-28 2021-10-28 Outpatient Nagi [facility] [id number] Univers 08:30:00 08:30:00 JONATHAN ity [facility] 2021-10-27 2021-10-27 Nurse 2, Adc Infusion Chair [facility] 1.2. 840.114 [id number] Univers 09:00:00 10:00:00 Visit Jonathan Tanner 350.1. 13.10 ity [facility] 4.2.[place].2.[place] [id number] [address] 2021-10-27 2021-10-27 [facility] [id number] Univers 09:00:00 09:00:00 JONATHAN ity [facility] 2021-10-27 2021-10-27 Outpatient R FLORES [facility] [id number] Univers 09:00:00 09:00:00 JONATHAN kinney [facility] 2021-10-27 2021-10-27 Outpatient R FLORES [facility] [id number] Univers 09:00:00 09:00:00 JONATHAN kinney [facility] 2021-10-25 2021-10-25 Outpatient R FLORES [facility] [id number] Univers 09:00:00 09:00:00 JONATHAN kinney [facility] 2021-10-25 2021-10-25 Outpatient R [facility] [id number] Univers 09:00:00 09:00:00 JONATHAN kinney [facility] 2021-10-21 2021-10-21 Nurse 2, Adc Infusion Chair [facility] 1.2. 840.114 [id number] Univers 09:00:00 11:00:00 Visit Jonathan Tanner 350.1. 13.10 ity of [place] [id number] [address] 2021-10-21 2021-10-21 Nurse 2, Adc Infusion Chair [facility] 1.2. 840.114 [id number] Univers 09:00:00 11:00:00 Visit Jonathan Tanner 350.1. 13.10 ity of [place] 4[place].2.[place] [id number] [address] 2021-10-21 2021-10-21 Outpatient R FLORES [facility] [id number] Univers 09:00:00 09:00:00 JONATHAN kinney [facility] 2021-10-21 2021-10-21 Outpatient R FLORES [facility] [id number] Univers 09:00:00 09:00:00 JONATHAN kinney [facility] 2021-10-21 2021-10-21 Outpatient R FL[facility]ES [facility] [id number] Univers 09:00:00 09:00:00 JONATHAN ity [facility] 2021-10-20 2021-10-20 Nurse 2, Adc Infusion Chair [facility] 1.2. 840.114 [id number] Univers 08:30:00 09:30:00 Visit Jonathan Tanner 350.1. 13.10 ity of [id number] [address] 2021-10-20 2021-10-20 Nurse 2, Adc Infusion Chair [facility] 1.2. 840.114 [id number] Univers 08:30:00 09:30:00 Visit Jonathan Tanner 350.1. 13.10 [place] [phone] [address] 2021-10-20 2021-10-20 [id number] Univers 08:30[facility]00 [id number] [facility]:30[facility]10[facility] [id number] Univers 08:30[facility]00 [facility] 2021-10-19 [place] [id number] Univers 00:00:00 00:00:00 Jonathan ROSEN 350.1.13.10 [id number] [phone] [address] 2021-10-18 2021-10-18 Nurse 1, Adc Infusion Chair [facility] 1.2. 840.114 [id number] Univers 09:00:00 11:00:00 Visit Jonathan Tanner 350.1. 13.10 it[place] of [id number] [id number] [address] 2021-10-18 2021-10-18 Nurse 1, Adc Infusion Chair [facility] 1.2. 840.114 [id number] Univers 09:00:00 11:00:00 Visit Flores Jonathan ROSEN 350.1. 13.10 ity of [id number] [id number] [address] 2021-10-18 2021-10-18 [facility] [id number] Univers 09:00:00 09:00:00 [facility]-10-18 2021-10-18 [facility] [id number] Univers 09:00:00 09:00:00 JONATHAN [facility] 2021-10-18 2021-10-18 [facility] [id number] Univers 09:00:00 09:00:00 JONATHAN [facility] 2021-10-14 2021-10-14 Nurse 2, Adc Infusion Chair [facility] 1.2. 840.114 [id number] Univers 09:00:00 11:00:00 Visit Jonathan Tanner 350.1. 13.10 ity of [place] [id number] [address] 2021-10-14 2021-10-14 [facility] [id number] Univers 09:00:00 09:00:00 JONATHAN [facility] 2021-10-14 2021-10-14 [facility] [id number] Univers 09:00:00 09:00:00 [facility]-10-14 2021-10-14 [facility] [id number] Univers 09:00:00 09:00:00 JONATHAN [facility] 2021-10-14 2021-10-14 [facility] 1.2.840.114 [id number] Univers 00:00:00 00:00:00 Jonathan BRITOBANNER 350.1.13.10 ity of [facility] 4.[place] [id number] Ar florentin [facility] [address] BUILDING 2021-10-13 2021-10-13 Outpatient R [facility] [id number] Univers 09:00:00 09:00:00 JONATHAN kinney [facility] 2021-10-13 2021-10-13 Outpatient Nagi [facility] [id number] Univers 09:00:00 09:00:00 JONATHAN kinney [facility] 2021-10-12 2021-10-12 [facility] 1.2.840.114 [id number] Univers 00:00:00 00:00:00 Jonathan Rasmussen [facility] 350.1.13.10 ity of [place] 4.2.7.2.686 Ernst as ЕКАТЕРИНА?BLEA [phone] [facility] [address] MEDICAL OFFICE BUILDING 2021-10-11 2021-10-11 Nurse 1, Adc Infusion Chair [facility] 1.2. 840.114 [id number] Univers 09:00:00 11:00:00 Visit Jonathan Tanner 350.1. 13.10 ity [facility] 4.[place] [id number] [facility] [address] 2021-10-11 2021-10-11 Outpatient Nagi [facility] [id number] Univers 09:00:00 09:00:00 JONATHAN kinney [facility] 2021-10-11 2021-10-11 Outpatient Nagi [facility] [id number] Univers 09:00:00 09:00:00 JONATHAN kinney [facility] 2021-10-11 2021-10-11 Outpatient Nagi [facility] [id number] Univers 09:00:00 09:00:00 JONATHAN [facility] 2021-10-10 2021-10-10 Patient Pawel, [facility] 1.2.840.114 [id number] Univers 00:00:00 00:00:00 Outreach Marleny ROSEN 350.1.13.10 ity of [place] 4.[place] [id number] [address] 2021-10-07 2021-10-07 Telemedici [facility] 1.2.840.114 [id number] Univers 16:00:00 16:40:00 ne Visit Jonathan ROSEN 350.1.13.10 ity of [place] 4.[place] [id number] [address] 2021-10-07 2021-10-07 Outpatient R [facility] [id number] Univers 16:00:00 [facility]:00[facility] 2021-10-07 Outpatient R [facility] [id number] Univers 16:00:00 [facility]:00:[facility] 2021-10-07 2021-10-07 [facility] [id number] Univers 16:00:00 16:00:00 JONATHAN [facility] 2021-10-07 2021-10-07 Nurse 2, Adc Infusion Chair [facility] 1.2. 840.114 [id number] Univers 09:00:00 11:00:00 Visit Jonathan Tanner 350.1. 13.10 ity of [place] 4.2.7.[place] [id number] [facility] [address] 2021-10-07 2021-10-07 Nurse 2, Adc Infusion Chair [facility] 1.2. 840.114 [id number] Univers 09:00:00 11:00:00 Visit Jonathan Tanner 350.1. 13.10 ity of [place] 4.[place] [id number] [address] 2021-10-07 2021-10-07 Nurse 2, Adc Infusion Chair [facility] 1.2. 840.114 [id number] Univers 09:00:00 11:00:00 Visit Jonathan Tanner 350.1. 13.10 ity of [facility] 4.2.[place].2.[place] [id number] [address] 2021-10-07 2021-10-07 Outpatient [facility] [id number] Univers 09:00:00 09:00:00 JONATHAN [facility] 2021-10-07 2021-10-07 Outpatient Nag[facility] [id number] Univers 09:00:00 09:00:00 JONATHAN [facility] 2021-10-06 2021-10-06 Nurse 2, Adc Infusion Chair [facility] 1.2. 840.114 [id number] Univers 09:00:00 10:00:00 Visit Jonathan Tanner 350.1. 13.10 ity of [place] 4.2.[place] [id number] [address] 2021-10-06 2021-10-06 Outpatient Nag[facility] [id number] Univers 09:00:00 09:00:00 JONATHAN kinney [facility] 2021-10-06 2021-10-06 Outpatient Nagi [facility] [id number] Univers 09:00:00 09:00:00 JONATHAN kinney [facility] 2021-10-04 2021-10-04 Outpatient LUI [facility] [id number] Univers 13:03:03 23:59:00 LUI CUMMINS [facility] 2021-10-04 2021-10-04 [facility] YOVANI CumminsIT 1.2.840.114 [id number] Univers 13:03:03 23:59:00 Mauricio Poe [facility] 350.1.13.10 ity of [facility] 4.2.7.2.[place] [id number] [facility] [address] 2021-10-04 2021-10-04 Nurse 1, Adc Infusion Nurse [facility] 1.2. 840.114 [id number] Univers 08:00:00 10:00:00 Visit TannerMadyJonathanyamile ROSEN 350.1. 13.10 ity of [facility] 4.2.[place].2.[place] [id number] [facility] [address] 2021-10-04 2021-10-04 Outpatient R [facility] [id number] Univers 08:00:00 08:00:00 JONATHAN kinney [facility] 2021-10-03 2021-10-03 Outpatient R ANNY [facility] [id number] Univers 09:15:00 09:15:00 ISIS kinney [facility] 2021-10-03 2021-10-03 Office Anny [facility] 1.2.046.053 [id number] Univers 09:15:00 09:15:00 Visit Isis ROSEN 350.1.13.10 i ty of [facility] 4.2.[place].2.[place] [id number] Ar dical NAL 188 [facility] 2021-10-03 2021-10-03 Outpatient R ANNY [facility] [id number] Univers 09:15:00 09:14:45 ISIS kinney [facility] 2021-09-30 2021-09-30 Outpatient R RADHAMES ACEVEDO [facility] [id number] Univers 14:00:00 15:29:50 RADHAMES ACEVEDO [facility] 2021-09-30 2021-09-30 Office Curtis [facility] 1.2.840.114 [id number] Univers 14:00:00 15:29:50 Visit Radhames ROSEN 350.1.13.10 ity of [facility] 4.2.[place].2.[place] [id number] Ar dical NAL 044 [facility] 2021-09-30 2021-09-30 Outpatient R RADHAMES ACEVEDO [facility] [id number] Univers 14:00:00 14:00:00 RADHAMES ACEVEDO [facility] 2021-09-30 2021-09-30 Outpatient R RADHAMES ACEVEDO [facility] [id number] Univers 14:00:00 14:00:00 RADHAMES ACEVEDO [facility] 2021-09-30 2021-09-30 Nurse 1, Adc Infusion Chair [facility] 1.2. 840.114 [id number] Univers 10:00:00 12:00:00 Visit Jonathan Tanner 350.1. 13.10 ity of [facility] 4.2.[place] [id number] [address] 2021-09-30 2021-09-30 [facility] [id number] Univers 10:00:00 10:00:00 JONATHAN [facility] 2021-09-29 2021-09-29 Nurse 1, Adc Infusion Chair [facility] 1.2. 840.114 [id number] Univers 10:00:00 12:00:00 Visit Jonathan Tanner 350.1. 13.10 ity of [facility] 4.2.7.2.[place] [id number] [address] 2021-09-29 2021-09-29 [facility] [id number] Univers 10:00:00 10:00:00 JONATHAN [facility] 2021-09-29 2021-09-29 [facility] [id number] Univers 10:00:00 10:00:00 JONATHAN [facility] 2021-09-29 2021-09-29 [place] [address].2.840.114 [id number] Univers 00:00:00 00:00:00 Jonathan ROSEN 350.1.13.10 ity of [facility] 4.[place] [id number] Ar dical NAL 231 [facility] 2021-09-27 2021-09-27 Telemedici [facility] 1.2.840.114 [id number] Univers 16:00:00 16:40:00 ne Visit Jonathan ROSEN 350.1.13.10 ity [facility] 4.2.[place] [id number] Ar dical [facility] [address] [facility] 2021-09-27 2021-09-27 [facility] [id number] Univers 16:00:00 16:00:00 [facility] 2021-09-27 2021-09-27 [facility] [id number] Univers 16:00:00 16:00:00 [facility] 2021-09-27 2021-09-27 [facility] [id number] Univers 16:00:00 16:00:00 [facility] 2021-09-26 2021-09-26 Outpatient R RADHAMES ACEVEDO [facility] [id number] Univers 16:30:00 16:45:29 RADHAMES ACEVEDO [facility] 2021-09-26 2021-09-26 Office Curtis [facility] 1.2.840.114 [id number] Univers 16:30:00 16:45:29 Visit Radhames ROSEN 350.1.13.10 ity [facility] 4.2.[place] [id number] Ar dical [facility] 044 [facility] 2021-09-26 2021-09-26 Outpatient R RADHAMES ACEVEDO [facility] [id number] Univers 16:30:00 16:45:29 RADHAMES ACEVEDO [facility] 2021-09-26 2021-09-26 [facility]phone [facility] 1.2.840.114 [id number] Univers 00:00:00 00:00:00 Jonathan ROSEN 350.1.13.10 ity of [place] 4.[place] [id number] [address] 2021-09-23 2021-09-23 Nurse 1, Adc Infusion Chair [facility] 1.2. 840.114 [id number] Univers 10:00:00 12:00:00 Visit Jonathan Tanner 350.1. 13.10 ity of [place] 4[place]2.[place] [id number] [address] 2021-09-23 2021-09-23 Out[facility] [id number] Univers 10:00:00 10:00:00 JONATHAN kinney [facility] 2021-09-22 2021-09-22 Nurse 1, Adc Infusion Chair [facility] 1.2. 840.114 [id number] Univers 10:00:00 12:00:00 Visit Jonathan Tanner 350.1. 13.10 ity of [place] 4.2.[place].2.[place] [id number] [address] 2021-09-22 2021-09-22 Outpatient R [facility] [id number] Univers 10:00:00 10:00:00 JONATHAN kinney [facility] 2021-09-20 2021-09-20 Nurse 1, Adc Infusion Chair [facility] 1.2. 840.114 [id number] Univers 10:00:00 12:00:00 Visit Jonathan Tanner 350.1. 13.10 ity of [place] 4.2.7.2.[place] [id number] [address] 2021-09-20 2021-09-20 Nurse 1, Adc Infusion Chair [facility] 1.2. 840.114 [id number] Univers 10:00:00 12:00:00 Visit Jonathan Tanner 350.1. 13.10 ity of [place] 4.2.7.2.[place] [id number] [address] 2021-09-20 2021-09-20 [facility] [id number] Univers 10:00:00 10:00:00 JONATHAN [facility] 2021-09-19 2021-09-19 Orders Doctor YARED 1.2.840.114 [id number] Univers 00:00:00 00:00:00 Only Unassigned, PENELOPE 350.1.13.10 [facility]y [facility] 4.2.7.2.686 Ernst as [id number] [address] 2021-09-16 2021-09-16 Nurse 1, Adc Infusion Chair [facility] 1.2. 840.114 [id number] Univers 10:00:00 12:00:00 Visit Jonathan Tanner 350.1. 13.10 ity [facility] 4.2.7.2.[place] [id number] [address] 2021-09-16 2021-09-16 Outpatient [facility] [id number] Univers 10:00:00 10:00:00 [facility] 2021-09-15 2021-09-15 Out[facility] [id number] Univers 16:20:00 16:20:00 [facility] 2021-09-15 2021-09-15 Nurse 1, Adc Infusion Chair [facility] 1.2. 840.114 [id number] Univers 10:00:00 12:00:00 Visit Jonathan Tanner 350.1. 13.10 ity [facility] 4.2.7.2.[place] [id number] [address] 2021-09-15 2021-09-15 [facility] [id number] Univers 10:00:00 10:00:00 [facility] 2021-09-13 2021-09-13 Out[facility] [id number] Univers 10:00:00 10:00:00 [facility] 2021-09-09 2021-09-09 Outpatient R DIANA CANTU [facility] [id number] Univers 07:44:23 23:59:00 ity of [facility] 2021-09-09 2021-09-09 Hospital Diana Cantu [facility] 1.2.840.114 [id number] Univers 07:44:23 23:59:00 Encounter Jerry [facility] 350.1. 13.10 ity of [place] [id number] [facility] [address] 2021-09-09 2021-09-09 Edm Operator Darryl, Adc Lab Main [facility] 1.2.8 40.114 [id number] Univers 14:00:00 14:15:00 Visit Jonathan Tanner 350.1. 13.10 ity of [place] 4.2.7.2.[place] [id number] Ar florentin NAL 353 [facility] 2021-09-09 2021-09-09 Nurse 1, Adc Infusion Chair [facility] 1.2. 840.114 [id number] Univers 10:00:00 12:00:00 Visit Jonathan Tanner 350.1. 13.10 ity of [place] 4.2.7.2.[place] [id number] [address] 2021-09-09 2021-09-09 Patient Tanner [facility] 1.2.840.114 [id number] Univers 00:00:00 00:00:00 Secure Msg Jonathan ROSEN 350.1.13.10 ity of [place] 4.2.[place].2.[place] [id number] Ar dical NAL 231 [facility] 2021-09-08 2021-09-08 Nurse 1, Adc Infusion Chair [facility] 1.2. 840.114 [id number] Univers 10:00:00 12:00:00 Visit Jonathan Tanner 350.1. 13.10 ity of [place] 4.2.7.2.[place] [id number] [address] 2021-09-08 2021-09-08 [facility] [id number] Univers 10:00:00 10:00:00 JONATHAN [facility] 2021-09-06 2021-09-06 Nurse 1, Adc Infusion Chair [facility] 1.2. 840.114 [id number] Univers 10:00:00 12:00:00 Visit Jonathan Tanner 350.1. 13.10 ity of [place] 4.2.[place].2.[place] [id number] [address] 2021-09-06 2021-09-06 [facility] [id number] Univers 10:00:00 10:00:00 JONATHAN [facility] 2021-09-06 2021-09-06 [facility] [id number] Univers 10:00:00 10:00:00 JONATHAN [facility] 2021-09-02 2021-09-02 Nurse 1, Adc Infusion Chair [facility] 1.2. 840.114 [id number] Univers 10:00:00 12:00:00 Visit Jonathan Tanner 350.1. 13.10 ity of [place] 4[place] [id number] [address] 2021-09-02 2021-09-02 [facility] [id number] Univers 10:00:00 10:00:00 JONATHAN [facility] 2021-09-01 2021-09-01 [facility] [id number] Univers 10:00:00 10:00:00 JONATHAN [facility] 2021-08-30 2021-08-30 Nurse 1, Adc Infusion Chair [facility] 1.2. 840.114 [id number] Univers 10:00:00 12:00:00 Visit Jonathan Tanner 350.1. 13.10 ity of [place] 4.2.7.2.[place] [id number] [address] 2021-08-30 2021-08-30 Outpatient [facility] [id number] Univers 10:00:00 10:00:00 JONATHAN [facility] 2021-08-26 2021-08-26 Nurse 1, Adc Infusion Chair [facility] 1.2. 840.114 [id number] Univers 10:00:00 12:00:00 Visit Jonathan Tanner 350.1. 13.10 ity [facility] 4.2.7.2.[place] [id number] [address] 2021-08-26 2021-08-26 Out[facility] [id number] Univers 10:00:00 10:00:00 JONATHAN [facility] 2021-08-25 2021-08-25 Nurse 1, Adc Infusion Chair [facility] 1.2. 840.114 [id number] Univers 10:00:00 12:00:00 Visit Jonathan Tanner 350.1. 13.10 ity [facility] 4.2.[place].2.[place] [id number] [address] 2021-08-25 2021-08-25 Outpatient R [facility] [id number] Univers 10:00:00 10:00:00 JONATHAN [facility] 2021-08-23 2021-08-24 [facility] [id number] Univers 16:00:00 08:05:20 JONATHAN [facility] 2021-08-23 2021-08-24 Telemedici [facility] 1.2.840.114 [id number] Univers 16:00:00 08:05:20 ne Visit Jonathan ROSEN 350.1.13.10 ity of [facility] 4.[place].2.[place] [id number] [address] 2021-08-24 2021-08-24 [facility] 1.2.840.114 [id number] Univers 00:00:00 00:00:00 Secure [facility] 350.1.13.10 ity of [place] 4.2.7.2.686 Ernst as ЕКАТЕРИНА?BLEA [id number] Ar dical KNEY 092 [facility] 2021-08-23 2021-08-23 [facility] [id number] Univers 16:00:00 16:00:00 JONATHAN kinney [facility] 2021-08-23 2021-08-23 Out[facility] [id number] Univers 16:00:00 16:00:00 JONATHAN kinney [facility] 2021-08-23 2021-08-23 Nurse 1, [facility] Infusion Chair [facility] 1.2. 840.114 [id number] Univers 10:00:00 12:00:00 Visit Jonathan Tanner 350.1. 13.10 ity [facility] 4.2.[place].2.[place]ICAL [id number] [facility] [address] 2021-08-23 2021-08-23 Edm Operator Darryl, Adc Lab Main [facility] 1.2.8 40.114 [id number] Univers 09:30:00 09:45:00 Visit Jonathan Tanner 350.1. 13.10 ity of [place] 4.2.[place] [id number] Ar dical NAL 353 [facility] 2021-08-23 2021-08-23 Edm Operator Darryl, Adc Lab Main [facility] 1.2.8 40.114 [id number] Univers 09:30:00 09:45:00 Visit Jonathan Tanner 350.1. 13.10 ity of [place] 4[place]2.[place].2.[place] [id number] Ar dical NAL 353 [facility] 2021-08-23 2021-08-23 Outpatient R [facility] [id number] Univers 09:30:00 [facility]:30:[facility]-08-[facility] 2021-08-23 [facility] [id number] Univers 09:30:00 09:30:00 JONATHAN mervin [facility] 2021-08-20 2021-08-20 [facility] 1.2.840.114 [id number] Univers 00:00:00 00:00:00 Radhames ROSEN 350.1.13.10 ity of [place] 4.2.[place] [id number] Ar florentin S[place] [address] BU[address]ING 2021-08-18 2021-08-18 Nurse 1, Adc Infusion Chair [facility] 1.. 840.114 [id number] Univers 09:00:00 11:00:00 Visit Jonathan Tanner 350.1. 13.10 ity of [place] 4.2.[place].2.[place] [id number] [facility] [address] 2021-08-18 2021-08-18 [facility] [id number] Univers 09:00:00 09:00:00 JONATHAN [facility] 2021-08-18 2021-08-18 [facility] [id number] Univers 09:00:00 09:00:00 JONATHAN [facility] 2021-08-18 2021-08-18 Erin Cummins [facility] ..840.114 [id number] Univers 00:00:00 00:00:00 [facility] 350.1.13.10 ity of [place] 4.2.7.2.686 Ernst as ЕКАТЕРИНА?BLEA [id number] Ar florentin MOJICAEY [address] MEDICAL OFFICE BUILDING 2021-08-12 2021-08-12 Nurse 1, Adc Infusion Chair [facility] .. 840.114 [id number] Univers 09:30:00 11:30:00 Visit Jonathan Tanner 350.1. 13.10 ity of [place] 4[place] [id number] [address] 2021-08-12 2021-08-12 Outpatient R [facility] [id number] Univers 09:30:00 09:30:00 JONATHAN kinney [facility] 2021-08-12 2021-08-12 Telephone Flores [facility] 1.2.840.114 [id number] Univers 00:00:00 00:00:00 Jonathan ROSEN 350.1.13.10 ity of [place] 4[place] [id number] Ar dical [facility] 044 [facility] 2021-08-09 2021-08-09 Nurse 1, Adc Infusion Nurse [facility] 1.2. 840.114 [id number] Univers 09:30:00 10:00:00 Visit Jonathan Tanner 350.1. 13.10 ity of [place] 4[place] [id number] [address] 2021-08-09 2021-08-09 Nurse 1, Adc Infusion Nurse [facility] 1.2. 840.114 [id number] Univers 09:30:00 10:00:00 Visit Jonathan Tanner 350.1. 13.10 ity of [place] 4[place] [id number] [address] 2021-08-09 2021-08-09 Outpatient Nagi [facility] [id number] Univers 09:30:00 09:30:00 JONATHAN kinney [facility] 2021-08-08 2021-08-08 [facility] 1.2.924.921 [id number] Univers 13:30:00 23:59:00 Mauricio ROSEN 350.1.13.10 it[place] of [place] 4[place] C[place] [id number] [facility] [address] 2021-08-08 2021-08-08 Outpatient LUI [facility] [id number] Univers 00:00:00 23:59:00 LUI CUMMINS [facility] 2021-08-05 2021-08-08 Outpatient R FLORES [facility] [id number] Univers 16:20:00 08:29:05 JONATHAN mervin [facility] 2021-08-05 2021-08-08 Office Tanner, [facility] [id number] Univers 16:20:00 08:29:05 Visit Jonathan ROSEN [id number] [facility] [id number] [id number] [address] 2021-08-08 2021-08-08 Outpatient R YAREDLUI LINARES [facility] [id number] Univers 00:00:00 00:00:00 LUI CUMMINS mervin [facility] 2021-08-08 2021-08-08 Telephone Flores [facility] [id number] Univers 00:00:00 00:00:00 Jonathan ROSEN [id number] [id number] [id number] [address] 2021-08-05 2021-08-05 Outpatient R FLORES [facility] [id number] Univers 16:20:00 16:20:00 JONATHAN [facility] 2021-08-05 2021-08-05 Outpatient R FLORES [facility] [id number] Univers 16:20:00 16:20:00 JONATHAN [facility] 2021-08-05 2021-08-05 Nurse 1, Adc Infusion Nurse [facility] [id number] Univers 09:30:00 10:00:00 Visit Jonathan Tanner 350.1. 13.10 [facility] [id number] [id number] [place] [address] [place] 2021-08-05 2021-08-05 Outpatient R FLORES [facility] [id number] Univers 09:30:00 09:30:00 JONATHAN warnermervin [facility] 2021-08-04 2021-08-04 Outpatient R MATA [facility] [id number] Univers 11:23:23 23:59:00 JUAN itmervin [facility] 2021-08-04 2021-08-04 [place] [facility] 1.2.840.114 [id number] Univers 11:23:23 23:59:00 Encounter Juan ROSEN 350.1.13.10 ity [facility] [place] [id number] [facility] [address] [place] 2021-08-04 2021-08-04 [facility] [id number] Univers 11:23:23 23:59:00 [facility] 2021-08-04 2021-08-04 Nurse 1, Adc Infusion Nurse [facility] 1.2. 840.114 [id number] Univers 09:30:00 10:00:00 Visit Jonathan Tanner 350.1. 13.10 ity [facility] [place] [id number] [address] 2021-08-04 2021-08-04 [facility] [id number] Univers 09:30:00 09:30:00 JONATHAN kinney [facility] 2021-08-02 2021-08-02 Nurse 1, Adc Infusion Nurse [facility] 1.2. 840.114 [id number] Univers 09:30:00 10:00:00 Visit Jonahtan Tanner 350.1. 13.10 ity [facility] [place] [id number] [address] 2021-08-02 2021-08-02 [facility] [id number] Univers 09:30:00 09:30:00 JONATHAN kinney [facility] 2021-08-02 2021-08-02 Outpatient R FLORES, [facility] [id number] Univers 09:30:00 09:30:00 JONATHAN mervin [facility] 2021-08-01 2021-08-01 Office Yared [facility] 1.2.840.114 [id number] Univers 14:40:00 16:20:36 Visit Lui [facility] 350.1.13.10 ity bryon ROSEN 4.2.7.2.686 Ernst as ЕКАТЕРИНА?BLEA [id number] [address] MEDICAL OFFICE BUILDING 2021-08-01 2021-08-01 Outpatient LUI CARSON [facility] [id number] Univers 14:40:00 16:20:36 LUI CUMMINS [facility] 2021-08-01 2021-08-01 Outpatient LUI CARSON [facility] [id number] Univers 14:40:00 14:40:00 LUI CUMMINS [facility] 2021-07-29 2021-07-29 Nurse 1, [facility] Infusion Nurse [facility] 1.2. 840.114 [id number] Univers 09:30:00 10:00:00 Visit Jonathan Tanner 350.1. 13.10 ity bryon [place] [id number] [place] [address] [place] 2021-07-29 2021-07-29 Outpatient R FLORES [facility] [id number] Univers 09:30:00 09:30:00 JONATHAN kinney [facility] 2021-07-29 2021-07-29 Outpatient R FLORES [facility] [id number] Univers 09:30:00 09:30:00 JONATHAN [facility] 2021-07-28 2021-07-28 Outpatient R FLORES [facility] [id number] Univers 09:30:00 09:30:00 JONATHAN mervin [facility] 2021-07-28 2021-07-28 Patient Flores [facility] 1.2.840.114 [id number] Univers 00:00:00 00:00:00 Secure Ms Jonathan ROSEN 350.1.13.10 ity of [place].2.[place] [id number] Ar florentin [facility] [address] [facility] 2021-07-27 2021-07-27 Outpatient R RADHAMES ACEVEDO [facility] [id number] Univers 15:30:00 16:51:39 [facility]-07-27 2021-07-27 Telemedici Curtis [facility] 1.2.840.114 [id number] Univers 15:30:00 16:51:39 ne Visit Aidannataliegarry XAVI 350.1.13.10 ity of [place] 4.2.7.2.[place] [id number] [facility] [address] [facility] 2021-07-27 2021-07-27 Outpatient R RADHAMES ACEVEDO [facility] [id number] Univers 15:30:00 15:30:00 RADHAMES [facility] 2021-07-26 2021-07-26 Nurse 1, Adc Infusion Nurse [facility] 1.2. 840.114 [id number] Univers 09:30:00 10:00:00 Visit Jonathan Tanner 350.1. 13.10 ity of [place] 4.2.7.2.[place] [id number] [place] [address] [place] 2021-07-26 2021-07-26 Outpatient R FLORES [facility] [id number] Univers 09:30:00 09:30:00 JONATHAN ity [facility] 2021-07-26 2021-07-26 Outpatient R FLORES [facility] [id number] Univers 09:30:00 09:30:00 JONATHAN ity [facility] 2021-07-22 2021-07-22 Nurse 1, Adc Infusion Nurse [facility] 1.2. 840.114 [id number] Univers 09:30:00 10:00:00 Visit Jonathan Tanner 350.1. 13.10 ity of [place] 4.2.7.2.[place] [id number] [address] 2021-07-22 2021-07-22 Outpatient R FLORES [facility] [id number] Univers 09:30:00 09:30:00 JONATHAN [facility] 2021-07-22 2021-07-22 Outpatient R FLORES [facility] [id number] Univers 09:30:00 09:30:00 [facility]-07-21 2021-07-21 Nurse 1, Adc Infusion Nurse [facility] 1.2. 840.114 [id number] Univers 09:30:00 10:00:00 Visit Jonathan Tanner 350.1. 13.10 ity [facility] 4.2.7.2.[place] [id number] [address] 2021-07-21 2021-07-21 Outpatient R FLORES [facility] [id number] Univers 09:30:00 09:30:00 [facility] 2021-07-19 2021-07-19 Nurse 1, Adc Infusion Nurse [facility] 1.2. 840.114 [id number] Univers 09:30:00 10:00:00 Visit Flores Jonathan ROSEN 350.1. 13.10 ity [facility] 4.2.7.2.[place] [id number] [address] 2021-07-19 2021-07-19 Outpatient R FLORES [facility] [id number] Univers 09:30:00 [facility]:30[facility] 2021-07-19 Outpatient R FLORES [facility] [id number] Univers 09:30:00 09:30:[facility] 2021-07-18 2021-07-18 Outpatient R FLORES [facility] [id number] Univers 15:00:00 15:00:00 [facility] 2021-07-18 2021-07-18 Outpatient R FLORES [facility] [id number] Univers 15:00:00 15:00:00 JONATHAN timmymervin [facility] 2021-07-18 2021-07-18 Laboratory Only, José Manuel Pob2 Test [facility] 1.2 .840.114 [id number] Univers 11:45:00 11:45:42 Only Jonathan Tanner 350.1. 13.10 ity of [place] 4.2.[place].2.[place] [id number] Ar dical NAL [address] [facility] 2021-07-18 2021-07-18 [facility] [id number] Univers 11:45:00 11:45:00 JONATHAN timmymervin [facility] 2021-07-18 2021-07-18 Letter YARED Cervantes 1.2.840.114 [id number] Univers 00:00:00 00:00:00 (Out) Shira NEGRETE 350.1.13.10 it y of [facility] 4.2.7.2.686 Ernst as [id number] [address] 2021-07-18 2021-07-18 Telephone Flores [facility] 1.2.840.114 [id number] Univers 00:00:00 00:00:00 Jonathan ROSEN 350.1.13.10 ity of [place] 4.[place].2.[place] [id number] Ar dical NAL [address] [facility] 2021-07-15 2021-07-15 Outpatient R TANNER [facility] [id number] Univers 09:30:00 09:30:00 JONATHAN timmymervin [facility] 2021-07-14 2021-07-14 Edm Operator Darryl, José Manuel Lab Main [facility] 1.2.8 40.114 [id number] Univers 12:00:00 12:15:00 Visit Jonathan Tanner 350.1. 13.10 ity of [place] 4.2.[place].2.[place] [id number] Ar dical NAL [address] [facility] 2021-07-14 2021-07-14 Outpatient R TANNER [facility] [id number] Univers 12:00:00 12:00:00 JONATHAN kinney [facility] 2021-07-14 2021-07-14 Nurse 1, Adc Infusion Nurse [facility] 1.2. 840.114 [id number] Univers 09:30:00 10:00:00 Visit [facility] 350.1. 13.10 [facility] 4.2.7.2.686 [facility] SURGICAL [id number] [facility] [address] [place] 2021-07-14 2021-07-14 Outpatient R FLORES [facility] [id number] Univers 09:30:00 09:30:00 JONATHAN kinney [facility] 2021-07-14 2021-07-14 Orders Doctor YARED 1.2.840.114 [id number] Univers 00:00:00 00:00:00 Only Unassigned, PENELOPE 350.1.13.10 ity of [place] [facility] 4.2.7.2.686 Ernst as [id number] [facility] [address] 2021-07-12 2021-07-12 Outpatient R ANNY [facility] [id number] Univers 13:45:46 23:59:00 ISIS kinney [facility] 2021-07-12 2021-07-12 Hospital [facility] 1.2.840.114 [id number] Univers 13:45:46 23:59:00 Encounter Isis ROSEN 350.1.13.10 ity [facility] 4[place]7.2.[place] [id number] [facility] [address] 2021-07-12 2021-07-12 [facility] [id number] Univers 15:15:00 15:24:28 ISIS kinney [facility] 2021-07-12 2021-07-12 [facility] 1.2.698.094 [id number] Univers 15:15:00 15:24:28 Visit Isis ROSEN 350.1.13.10 i ty of [facility] 4.2.7.2.[place] [id number] Ar dical NAL [address] [facility] 2021-07-12 2021-07-12 Nurse 1, Adc Infusion Nurse [facility] 1.2. 840.114 [id number] Univers 09:30:00 10:00:00 Visit Jonathan Tanner 350.1. 13.10 ity of [place] 4.2.7.2.[place] [id number] [address] 2021-07-12 2021-07-12 Orders Doctor YARED 1.2.840.114 [id number] Univers 00:00:00 00:00:00 Only Unassigned, PENELOPE 350.1.13.10 ity of [place] [facility] 4.2.7.2.686 Ernst as [id number] [address] 2021-07-08 2021-07-08 Nurse 1, Adc Infusion Nurse [facility] 1.2. 840.114 [id number] Univers 09:30:00 10:00:00 Visit Jonathan Tanner 350.1. 13.10 ity of [facility] 4.2.7.2.[place] [id number] [address] 2021-07-08 2021-07-08 Outpatient R FLORES [facility] [id number] [facility] 09:30:00 09:30:00 JONATHAN kinney of [facility] 2021-07-08 2021-07-08 Telephone Anny [facility] 1.2.840.114 [id number] Univers 00:00:00 00:00:00 Isis ROSEN 350.1.13.10 i ty of [place] 4[place]2.7.2.[place] [id number] Ar dical NAL 188 [facility] 2021-07-07 2021-07-07 Nurse 1, Adc Infusion Nurse [facility] 1.2. 840.114 [id number] Univers 09:30:00 10:00:00 Visit Jonathan Tanner 350.1. 13.10 ity of [facility] 4.2.7.2.[place] [id number] [address] 2021-07-07 2021-07-07 Outpatient R FLORES [facility] [id number] Univers 09:30:00 09:30:00 JONATHAN [facility] 2021-07-05 2021-07-05 Nurse 1, Adc Infusion Nurse [facility] 1.2. 840.114 [id number] Univers 09:30:00 11:30:00 Visit Jonathan Tanner 350.1. 13.10 ity of [place] 4.2.7.2.[place] [id number] [address] 2021-07-05 2021-07-05 [facility] [id number] Univers 09:30:00 09:30:00 JONATHAN [facility] 2021-07-05 2021-07-05 Outpatient [facility] [id number] Univers 09:30:00 09:30:00 JONATHAN [facility] 2021-06-30 2021-06-30 Nurse 1, Adc Infusion Chair [facility] 1.2. 840.114 [id number] Univers 09:30:00 11:30:00 Visit Jonathan Tanner 350.1. 13.10 ity of [facility] 4.2.7.2.[place] [id number] [address] 2021-06-30 2021-06-30 Outpatient [facility] [id number] Univers 09:30:00 09:30:00 JONATHAN [facility] 2021-06-30 2021-06-30 Outpatient [facility] [id number] Univers 09:30:00 09:30:00 JONATHAN [facility] 2021-06-28 2021-06-28 Nurse 1, Adc Infusion Nurse [facility] 1.2. 840.114 [id number] Univers 09:30:00 10:00:00 Visit Jonathan Tanner [place] 350.1. 13.10 ity of [place] 4.2.7.2.[place] [id number] [address] 2021-06-28 2021-06-28 Outpatient R FLORES [facility] [id number] Univers 09:30:00 09:30:00 JONATHAN warnery [facility] 2021-06-24 2021-06-24 Nurse 1, Adc Infusion Nurse [facility] 1.2. 840.114 [id number] Univers 09:30:00 10:00:00 Visit Tanner, Jonathan ROSEN 350.1. 13.10 ity of [place] 4.2.7.2.[place] [id number] [address] 2021-06-24 2021-06-24 Outpatient [facility] [id number] Univers 09:30:00 09:30:00 JONATHAN ity [facility] 2021-06-22 2021-06-22 Outpatient [facility] [id number] Univers 08:49:43 23:59:00 ity [facility] 2021-06-22 2021-06-22 [facility] 1.2.840.114 [id number] Univers 08:49:43 23:59:00 Encounter Kinza ROSEN 350.1.13.10 ity of [place] 4.2.7.2.[place] [id number] [address] 2021-06-21 2021-06-21 Nurse 1, Adc Infusion Nurse [facility] 1.2. 840.114 [id number] Univers 09:30:00 10:00:00 Visit Flores Jonathan ROSEN 350.1. 13.10 ity of [place] 4.2.7.2.[place] [id number] [address] 2021-06-21 2021-06-21 Outpatient [facility] [id number] Univers 09:30:00 09:30:00 [facility] 2021-06-21 2021-06-21 Orders Doctor YARED 1.2.840.114 [id number] Univers 00:00:00 00:00:00 Only Unassigned, PENELOPE 350.1.13.10 ity of [place] [facility] 4.2.7.2.686 Ernst as [id number] [address] 2021-06-20 2021-06-20 [facility]phone [facility] 1.2.840.114 [id number] Univers 00:00:00 00:00:00 Jonathan A XAVI 350.1.13.10 ity of [place].2.[place] [id number] [address] 2021-06-17 2021-06-17 Outpatient [facility] [id number] Univers 09:30:00 09:30:00 [facility] 2021-06-16 2021-06-17 Telemedici [facility] 1.2.840.114 [id number] Univers 15:00:00 08:41:22 ne Visit Jonathan ROSEN 350.1.13.10 ity [facility] 4[place]2.7.2.[place] [id number] [address] 2021-06-16 2021-06-17 Outpatient [facility] [id number] Univers 15:00:00 08:41:22 [facility] 2021-06-16 2021-06-16 Outpatient [facility] [id number] Univers 15:00:00 15:00:00 [facility] 2021-06-16 2021-06-16 Outpatient [facility] [id number] Univers 15:00:00 15:00:00 [facility] 2021-06-14 2021-06-14 Nurse 2, Adc Infusion Chair [facility] 1.2. 840.114 [id number] Univers 09:30:19 11:30:19 Visit Jonathan Tanner 350.1. 13.10 ity of [place] 4.2.7.2.[place] [id number] [address] 2021-06-14 2021-06-14 Outpatient R T[facility]NER [facility] [id number] Univers 09:30:00 09:30:00 [facility] 2021-06-10 2021-06-10 Nurse 1, Adc Infusion Nurse [facility] 1.2. 840.114 [id number] [facility] 09:18:54 09:48:54 Visit Jonathan Tanner 350.1. 13.10 ity of [place] 4.2.7.2.[place] [id number] [address] 2021-06-10 2021-06-10 Outpatient [facility] [id number] Univers 09:30:00 09:30:00 [facility] 2021-06-07 2021-06-07 Nurse 2, Adc Infusion Chair [facility] 1.2. 840.114 [id number] Univers 09:50:02 11:50:02 Visit Jonathan Tanner 350.1. 13.10 ity of [place] 4[place]2.7.2.[place] [id number] [address] 2021-06-07 2021-06-07 Outpatient [facility] [id number] Univers 09:30:00 09:30:00 JONATHAN kinney [facility] 2021-06-06 2021-06-06 Out[facility] [id number] Univers 10:00:00 10:00:00 ZAIRA [facility] 2021-06-06 2021-06-06 Telephone Flores [facility] 1.2.840.114 [id number] Univers 00:00:00 00:00:00 Jonathan ROSEN 350.1.13.10 ity of [place] 4.2.[place].2.[place] [id number] [address] 2021-06-01 2021-06-01 Outpatient R FLORES [facility] [id number] Univers 09:30:00 09:30:00 JONATHAN [facility] 2021-05-31 2021-05-31 Nurse 2, Adc Infusion Chair [facility] 1.2. 840.114 [id number] Univers 08:42:58 10:42:58 Visit Jonathan Tanner 350.1. 13.10 ity [facility] 4.2.7.2.[place] [id number] [address] 2021-05-31 2021-05-31 Outpatient R FLORES [facility] [id number] Univers 09:30:00 09:30:00 JONATHAN [facility] 2021-05-31 2021-05-31 Outpatient Nagi [facility] [id number] Univers 08:30:00 08:30:00 JONATHAN [facility] 2021-05-27 2021-05-27 Nurse 2, Adc Infusion Chair [facility] 1.2. 840.114 [id number] Univers 09:37:42 11:37:42 Visit Jonathan Tanner 350.1. 13.10 ity [facility] 4.2.7.2.[place] [id number] [address] 2021-05-27 2021-05-27 Outpatient Nagi [facility] [id number] Univers 09:30:00 09:30:00 JONATHAN [facility] 2021-05-27 2021-05-27 Outpatient R [facility] [id number] Univers 09:30:00 09:30:00 JONATHAN [facility] 2021-05-26 2021-05-26 Outpatient Nagi [facility] [id number] Univers 16:20:00 16:20:00 JONATHAN [facility] 2021-05-26 2021-05-26 Outpatient R [facility]ES [facility] [id number] Univers 16:20:00 16:20:00 JONATHAN kinney [facility] 2021-05-26 2021-05-26 Telemedici Flores [facility] 1.2.840.114 [id number] [facility] 08:08:26 08:48:26 ne Visit Jonathan ROSEN 350.1.13.10 ity of [place] [id number] [address] 2021-05-24 2021-05-24 Nurse 2, Adc Infusion Chair [facility] 1.2. 840.114 [id number] Univers 09:56:22 11:56:22 Visit TannerJonathan hearn 350.1. 13.10 ity of [facility] 4.2.[place].2.[place] [id number] [address] 2021-05-24 2021-05-24 Out[facility] [id number] Univers 09:30:00 09:30:00 JONATHAN [facility] 2021-05-24 2021-05-24 Outpatient R [facility] [id number] Univers 09:30:00 09:30:00 JONATHAN kinney [facility] 2021-05-20 2021-05-20 Nurse 2, Adc Infusion Chair [facility] 1.2. 840.114 [id number] Univers 09:49:27 11:49:27 Visit Flores Jonathan ROSEN 350.1. 13.10 ity of [place] 4[place]2.[place].2.[place] [id number] [address] 2021-05-20 2021-05-20 Out[facility] [id number] Univers 09:30:00 09:30:00 [facility] 2021-05-17 2021-05-17 Nurse 2, Adc Infusion Chair [facility] 1.2. 840.114 [id number] Univers 09:24:56 11:24:56 Visit Jonathan Tanner 350.1. 13.10 ity of [facility] 4.2.[place].2.[place] [id number] [address] 2021-05-17 2021-05-17 Outpatient [facility] [id number] Univers 09:30:00 09:30:00 JONATHAN mervin [facility] 2021-05-13 2021-05-13 Outpatient [facility] [id number] Univers 09:30:00 09:30:00 JONATHAN [facility] 2021-05-12 2021-05-12 Nurse 1, Adc Infusion Chair [facility] 1.2. 840.114 [id number] Univers 08:51:29 10:51:29 Visit Jonathan Tanner 350.1. 13.10 ity of [facility] 4.2.7.2.[place] [id number] [address] 2021-05-12 2021-05-12 Outpatient Nagi [facility] [id number] Univers 09:00:00 09:00:00 JONATHAN mervin [facility] 2021-05-10 2021-05-10 Outpatient [facility] [id number] Univers 09:30:00 09:30:00 JONATHAN [facility] 2021-05-09 2021-05-09 Office [facility] 1.2.840.114 [id number] Univers 09:38:07 11:28:34 Visit Zaira ROSEN 350.1.13.10 i ty of [facility] [place] [id number] [address] 2021-05-09 2021-05-09 Outpatient [facility] [id number] Univers 09:30:00 11:28:34 ZAIRA kinney [facility] 2021-05-09 2021-05-09 Outpatient [facility] [id number] Univers 09:30:00 11:28:34 ZAIRA timmymervin [facility] 2021-05-09 2021-05-09 Outpatient R [facility] [id number] Univers 09:30:00 09:30:00 ZAIRA timmymervin [facility] 2021-05-09 2021-05-09 Orders Doctor YARED 1.2.840.114 [id number] Univers 00:00:00 00:00:00 Only Unassigned, PENELOPE 350.1.13.[address] [facility] 4.2.7.2.686 Ernst as [id number] [address] 2021-05-06 2021-05-06 Outpatient R FLORES [facility] [id number] Univers 15:00:00 15:00:00 JONATHAN kinney [facility] 2021-05-06 2021-05-06 Outpatient R [facility]ES [facility] [id number] Univers 15:00:00 15:00:00 JONATHAN kinney [facility] 2021-05-06 2021-05-06 Nurse 2, Adc Infusion Chair [facility] 1.2. 840.114 [id number] Univers 09:22:44 11:22:44 Visit Jonathan Tanner 350.1. 13.10 ity [facility] 4[place]2.[place].2.[place] [id number] [facility] [address] 2021-05-06 2021-05-06 Telemedici [facility] 1.2.840.114 [id number] Univers 09:32:13 10:12:13 ne Visit Jonathan ROSEN 350.1.13.10 ity [facility] 4.2.[place].2.[place] [id number] Ar dical [facility] [address] [facility] 2021-05-03 2021-05-03 Outpatient R [facility]ES [facility] [id number] Univers 09:30:00 09:30:00 JONATHAN kinney [facility] 2021-04-29 2021-04-29 Nurse 1, Adc Infusion Nurse [facility] 1.2. 840.114 [id number] Univers 09:32:29 10:02:29 Visit Jonathan Tanner 350.1. 13.10 [place] [id number] [address] 2021-04-29 2021-04-29 Outpatient R [facility] [id number] Univers 09:30:00 09:30:00 JONATHAN kinney [facility] 2021-04-26 2021-04-26 Nurse 1, Adc Infusion Nurse [facility] 1.2. 840.114 [id number] [facility] 09:25:41 09:55:41 Visit Jonathan Tanner 350.1. 13.10 [place] [phone] [address] 2021-04-26 2021-04-26 [facility] [id number] Univers 09:30:00 09:30:00 JONATHAN kinney [facility] 2021-04-25 2021-04-25 [facility] 1.2.840.114 [id number] Univers 00:00:00 00:00:00 Jonathan Rosen 350.1.13.10 [phone] [address] 2021-04-22 2021-04-22 Nurse 1, Adc Infusion Chair [facility] 1.2. 840.114 [id number] Univers 09:24:55 11:24:55 Visit Jonathan Tanner 350.1. 13.10 [place] [phone] [address] 2021-04-22 2021-04-22 [facility] [id number] [facility] 09:30:00 09:30:00 JONATHAN kinney [facility] 2021-04-20 2021-04-20 [facility] 1.2.840.114 [id number] Univers 00:00:00 00:00:00 Jonathan Rosen 350.1.13.10 [place] [phone] Ar dical nal 044 [facility] 2021-04-19 2021-04-19 Nurse 1, Adc Infusion Nurse [facility] 1.2. 840.114 [id number] Univers 09:25:22 09:55:22 Visit Jonathan Tanner 350.1. 13.10 [place] [phone] [address] 2021-04-19 2021-04-19 [facility] [id number] Univers 09:30:00 09:30:00 JONATHAN ity [facility] 2021-04-18 2021-04-18 Orders Doctor LAWSON 1.2.840.[id number] [place] [address] 00:00:00 00:00:00 Only Unassigned, PENELOPE 350.1.13.10 ity of [facility] 4.2.7.2.686 Ernst as [phone] [address] 2021-04-15 2021-04-15 [facility] [id number] Univers 16:20:00 17:00:25 JONATHAN ity [facility] 2021-04-15 2021-04-15 [facility] 1.2.840.114 [id number] Univers 13:36:08 17:00:25 ne Visit Jonathan ROSEN 350.1.13.10 [place] [phone] Ar dical NAL 231 [facility] 2021-04-15 2021-04-15 [facility] 1033 [id number] Univers 09:30:00 09:30:00 JONATHAN ity [facility] 2021-04-12 2021-04-12 Nurse 1, Adc Infusion Nurse [facility] 1.2. 840.114 [id number] Univers 09:18:57 09:48:57 Visit Jonathan Tanner 350.1. 13.10 [place] [id number] [address] 2021-04-12 2021-04-12 Outpatient R FLORES [facility] 1034 [id number] Univers 09:30:00 09:30:00 JONATHAN kinney [facility] 2021-04-08 2021-04-08 Nurse 1, Adc Infusion Chair [facility] 1.2. 840.114 [id number] Univers 09:47:22 11:47:22 Visit Jonathan Tanner 350.1. 13.10 [place]y [place] [phone] [address] 2021-04-08 2021-04-08 [facility] [id number] Univers 09:30:00 09:30:00 JONATHAN kinney [facility] 2021-04-07 2021-04-07 Office Anny [facility] 1.2.151.896 [id number] Univers 15:37:12 15:55:24 Visit Isis Rosen 350.1.13.10 i [place] [phone] Ar dical nal 188 [facility] 2021-04-07 2021-04-07 Outpatient R ANNY [facility] [id number] Univers 15:45:00 15:45:00 ISIS kinney [facility] 2021-04-06 2021-04-06 Telephone [facility] 1.2.840.114 [id number] Univers 00:00:00 00:00:00 Jonathan Rosen 350.1.13.10 [place] [phone] Ar dical nal 044 [facility] 2021-04-06 2021-04-06 Telephone Flores [facility] 1.2.840.114 [id number] Univers 00:00:00 00:00:00 Jonathan Rosen 350.1.13.10 [place] [phone] Ar dical nal 044 [facility] 2021-04-06 2021-04-06 Orders Doctor YARED 1.2.840.114 [id number] Univers 00:00:00 00:00:00 Only Unassigned, PENELOPE 350.1.13.10 ity of [facility] 4.2.7.2.686 Ernst as [phone] [address] 2021-04-05 2021-04-05 Office [facility] 1.2.840.114 [id number] Univers 10:23:26 11:42:11 Visit [facility] 350.1.13.10 ity of [place] 4.2.7.2.686 Ernst as Екатерина?Blea [phone] Ar eliseokarol kney [address] [place] [facility] 2021-04-05 2021-04-05 Outpatient R FLORES [facility] [id number] Univers 09:30:00 09:30:00 JONATHAN [facility] 2021-04-01 2021-04-01 Outpatient Nagi TANNER [facility] [id number] Univers 09:30:00 09:30:00 JONATHAN [facility] 2021-03-31 2021-03-31 Outpatient Nagi KERNS [facility] [id number] Univers 16:15:00 16:15:00 ISIS [facility] 2021-03-29 2021-03-29 Nurse 1, Adc Infusion Nurse [facility] 1.2. 840.114 [id number] Univers 09:17:50 09:47:50 Visit Jonathan Tanner 350.1. 13.10 ity of [place] [phone] [facility] [address] [place] 2021-03-29 2021-03-29 Outpatient Nagi TANNER [facility] [id number] Univers 09:30:00 09:30:00 JONATHAN ity [facility] 2021-03-25 2021-03-28 Telemedici [facility] 1.2.840.114 [id number] [facility] 16:20:00 08:21:46 ne Visit Jonathan ROSEN 350.1.13.10 it[place] [id number] [address] 2021-03-25 2021-03-28 Outpatient R FLORES [facility] [id number] Univers 16:20:00 08:21:46 JONATHANLING kinney [facility] 2021-03-25 2021-03-28 Outpatient R [facility]ORES [facility] [id number] Univers 16:20:00 08:21:46 JONATHAN ity [facility] 2021-03-25 2021-03-28 [facility] 1.2.840.114 [id number] [facility] 16:20:00 08:21:46 ne Visit Jonathan ROSEN 350.1.13.10 [place] [phone] [address] 2021-03-25 2021-03-28 [facility] 1.2.840.114 [id number] Univers 13:17:14 08:21:46 ne Visit Jonathan Rosen 350.1.13.10 [place] [phone] [address] 2021-03-25 2021-03-25 Outpatient R [facility] [id number] Univers 16:20:00 16:20:00 JONATHAN ity [facility] 2021-03-25 2021-03-25 Nurse 1, Adc Infusion Nurse [facility] 1.2. 840.114 [id number] Univers 09:28:48 09:58:48 Visit Jonathan Tanner 350.1. 13.10 [place] [id number] [address] 2021-03-25 2021-03-25 Outpatient R FLORES [facility] [id number] Univers 09:30:00 09:30:00 JONATHAN kinney [facility] 2021-03-22 2021-03-22 Outpatient R [facility]ORES [facility] [id number] Univers 09:30:00 09:30:00 JONATHAN kinney [facility] 2021-03-21 2021-03-21 Nurse 1, Adc Infusion Nurse [facility] 1.2. 840.114 [id number] [facility] 14:17:08 14:47:08 Visit Jonathan Tanner 350.1. 13.10 [place] [id number] [address] 2021-03-21 2021-03-21 Nurse 1, Adc Infusion Nurse [facility] 1.2. 840.114 [id number] [facility] 14:17:08 14:47:08 Visit Jonathan Tanner 350.1. 13.10 [place] [id number] [address] 2021-03-21 2021-03-21 Nurse 1, Adc Infusion Nurse [facility] 1.2. 840.114 [id number] [facility] 14:17:08 14:47:08 Visit Jonathan Tanner 350.1. 13.10 [place] [id number] [address] 2021-03-21 2021-03-21 Outpatient Nagi [facility]NER [facility] [id number] Univers 14:00:00 14:00:00 JONATHAN kinney [facility] 2021-03-18 2021-03-18 Ronny Tanner [facility] 1.2.840.114 [id number] Univers 00:00:00 00:00:00 Management Jonathan Rosen 350.1.13.10 [place] [phone] [address] 2021-03-18 2021-03-18 Ronny Tanner [facility] 1.2.840.114 [id number] Univers 00:00:00 00:00:00 Management Jonathan Rosen 350.1.13.10 [place] [phone] [address] 2021-03-15 2021-03-15 Outpatient LUI CARSON [facility] [id number] Univers 11:00:00 11:00:00 LUI CUMMINS mervin [facility] 2021-03-11 2021-03-11 Outpatient Nagi TANNER [facility] [id number] Univers 15:00:00 15:00:00 JONATHAN [facility] 2021-03-11 2021-03-11 Outpatient Nagi TANNER [facility] [id number] Univers 15:00:00 15:00:00 JONATHAN [facility] 2021-03-11 2021-03-11 Telemedic [facility] 1.2.840.114 [id number] Univers 07:49:29 08:29:29 ne Visit Jonathan Rosen 350.1.13.10 [place] [phone] [address] 2021-03-11 2021-03-11 [facility] 1.2.840.114 [id number] Univers 07:49:29 08:29:29 ne Visit Jonathan Rosen 350.1.13.10 [place] [phone] [address] 2021-03-10 2021-03-10 Nurse 1, Adc Infusion Nurse [facility] 1.2. 840.114 [id number] Univers 09:10:09 09:40:09 Visit Jonathan Tanner Xavi 350.1. 13.10 [place] [phone] [facility] [address] [place] 2021-03-10 2021-03-10 Nurse 1, Adc Infusion Nurse [facility] 1.2. 840.114 [id number] [facility] 09:10: 09:40:09 Visit Jonathan Tanner [place] 350.1. 13.10 [place] [id number] [address] 2021-03-10 2021-03-10 Outpatient R FLORES [facility] [id number] Univers 09:00:00 09:00:00 JONATHAN ity of [facility] 2021-03-08 2021-03-08 [facility] 1.2.840.114 [id number] Univers 00:00:00 00:00:00 Secure Msg Jonathan Rasmussen Xavi 350.1.13.10 [place] [phone] Ar dical nal 044 [facility] 2021-03-08 2021-03-08 [facility] 1.2.840.114 [id number] Univers 00:00:00 00:00:00 Secure Msg Jonathan Rasmussen [place] 350.1.13.10 [place] [phone] Ar dical nal 044 [facility] 2021-03-07 2021-03-07 [facility] 1.2.840.114 [id number] Univers 10:52:00 17:01:00 Encounter Isis Rosen 350.1.13.10 [place] [id number] [address] 2021-03-07 2021-03-07 [facility] 1.2.840.114 [id number] Univers 10:52:00 17:01:00 Encounter Isis Britoton 350.1.13.10 [place] [id number] [facility] [address] [place] 2021-03-07 2021-03-07 Surgery Kerns, [facility] 1.2.909.353 [id number] Univers 12:25:00 13:56:00 Isis Rosen 350.1.13.10 [place] [phone] [facility] [address] [place] 2021-03-07 2021-03-07 Surgery Kerns, [facility] 1.2.885.589 [id number] Univers 12:25:00 13:56:00 Isis Rosen 350.1.13.10 i [place] [id number] [facility] [address] [place] 2021-03-05 2021-03-05 Case Tanner, [facility] 1.2.840.114 [id number] Univers 00:00:00 00:00:00 Management Jonathan A Xavi 350.1.13.10 [place] [phone] Ar dical nal 231 [facility] 2021-03-05 2021-03-05 [facility] Tanner, [facility] 1.2.840.114 [id number] Univers 00:00:00 00:00:00 Management Jonathan Rasmussen [place] 350.1.13.10 [place] [phone] Ar dical nal 231 [facility] 2021-03-04 2021-03-04 Laboratory Only, Adc Test [facility] 1.2.840. 114 [id number] Univers 11:07:32 11:22:32 Only Isis Kerns Xavi 350.1.13.10 [place] [id number] [facility] [address] [place] 2021-03-04 2021-03-04 Laboratory Only, Adc Test [facility] 1.2.840. 114 [id number] Univers 11:07:32 11:22:32 Only Isis Kerns 350.1.13.10 [place] [id number] [address] 2021-03-04 2021-03-04 Outpatient R ANNY, [facility] [id number] Univers 11:15:00 11:15:00 ISIS kinney [facility] 2021-03-03 2021-03-03 Nurse 1, Adc Infusion Chair [facility] 1.2. 840.114 [id number] Univers 08:42:37 10:42:37 Visit Jonathan Tanner 350.1. 13.10 [place] [phone] [address] 2021-03-03 2021-03-03 Nurse 1, Adc Infusion Chair [facility] 1.2. 840.114 [id number] Univers 08:42:37 10:42:37 Visit Jonathan Tanner 350.1. 13.10 [place] [id number] [address] 2021-03-03 2021-03-03 [facility] [id number] Univers 09:00:00 09:00:00 JONATHAN kinney [facility] 2021-02-28 2021-02-28 Nurse 1, Adc Infusion Chair [facility] 1.2. 840.114 [id number] Univers 09:02:34 11:02:34 Visit Jonathan Tanner 350.1. 13.10 [place] [id number] [address] 2021-02-28 2021-02-28 [facility] [id number] Univers 09:00:00 09:00:00 JONATHAN kinney [facility] 2021-02-24 2021-02-24 Outpatient R ANNY [facility] [id number] Univers 11:15:00 11:40:00 ISIS timmymervin [facility] 2021-02-24 2021-02-24 Office Anny [facility] 1.2.999.349 [id number] Univers 10:57:16 11:40:00 Visit Isis Rosen 350.1.13.10 [place] [phone] Ar dical nal 188 [facility] 2021-02-24 2021-02-24 Nurse 1, Adc Infusion Chair [facility] 1.2. 840.114 [id number] Univers 08:45:02 10:45:02 Visit Jonathan Tanner 350.1. 13.10 [place] [id number] [facility] [address] [place] 2021-02-24 2021-02-24 Outpatient R FLORES [facility] [id number] Univers 09:00:00 09:00:00 JONATHAN kinney [facility] 2021-02-24 2021-02-24 Prep For Padmini [facility] 1.2.840.114 [id number] Univers 00:00:00 00:00:00 Surgery Molly Rosen 350.1.13.10 [place] [phone] Ar dical nal 204 [facility] 2021-02-24 2021-02-24 Orders Doctor YARED 1.2.840.114 [id number] Univers 00:00:00 00:00:00 Only Unassigned, PENELOPE 350.1.13.10 ity of [facility] 4.2.7.2.686 Ernst as [phone] [facility] [address] [place] 2021-02-17 2021-02-17 Telemedici [facility] 1.2.840.114 [id number] Univers 14:58:34 17:09:57 ne Visit Jonathan Rosen 350.1.13.10 [place] [phone] Ar dical [facility] [address] [facility] 2021-02-17 2021-02-17 Outpatient R FLORES [facility] [id number] Univers 15:40:00 15:40:00 JONATHAN kinney [facility] 2021-02-17 2021-02-17 Outpatient R FLORES [facility] 1033 [id number] Univers 15:40:00 15:40:00 JONATHAN ity [facility] 2021-02-14 2021-02-14 [facility] 1.2.840.114 [id number] Univers 13:30:00 23:59:00 Encounter Karina Rosen 350.1.13.10 [place] [phone] [facility] [address] 2021-02-14 2021-02-14 Nurse 1, Adc Infusion Chair [facility] 1.2. 840.114 [id number] Univers 09:50:37 10:50:37 Visit Jonathan Tanner 350.1. 13.10 [place] [id number] [facility] [address] 2021-02-14 2021-02-14 Outpatient R FLORES [facility] 1034 [id number] Univers 09:00:00 09:00:00 JONATHAN kinney [facility] 2021-02-14 2021-02-14 Orders Doctor LAWSON 1.2.840.114 [id number] Univers 00:00:00 00:00:00 Only Unassigned, PENELOPE 350.1.13.10 ity of [place] [facility] 4.2.7.2.686 Ernst as [phone] [facility] [address] 2021-02-11 2021-02-11 Nurse 1, Adc Infusion Chair [facility] 1.2. 840.114 [id number] Univers 09:45:43 10:45:43 Visit Jonathan Tanner 350.1. 13.10 [place] [id number] [facility] [address] [place] 2021-02-11 2021-02-11 Outpatient [facility] [id number] Univers 09:30:00 09:30:00 JONATHAN kinney [facility] 2021-02-11 2021-02-11 Orders Doctor YARED 1.2.840.114 [id number] Univers 00:00:00 00:00:00 Only Unassigned, PENELOPE 350.1.13.10 ity of [facility] 4.2.7.2.686 Ernst as [id number] [address] 2021-02-11 2021-02-11 Orders Doctor YARED 1.2.840.114 [id number] Univers 00:00:00 00:00:00 Only Unassigned, PENELOPE 350.1.13.10 ity of [place] [facility] 4.2.7.2.686 Ernst as [id number] [address] 2021-02-10 2021-02-10 [facility]patient [facility] 1034 [id number] Univers 09:00:00 09:00:00 JONATHAN kinney [facility] 2021-02-09 2021-02-09 Edm Operator Lab, [facility] Pob I [facility] 1.2. 840.114 [id number] Univers 13:59:16 14:19:16 Visit Karina [facility] 350.1.13.10 ity of [place] 4.2.7.2.686 Ernts as Professio [phone] Ar dical nal [address] [place] [address] 2021-02-09 2021-02-09 Outpatient Nag[facility] [id number] Univers 13:00:00 13:55:50 KARINA kinney [facility] 2021-02-09 2021-02-09 Office [facility] 1.2.840.114 [id number] Univers 12:50:22 13:55:50 Visit Karina [facility] 350.1.13.10 i ty of [place] 4.2.7.2.686 Ernst as Professio [id number] [address] One 2021-02-09 2021-02-09 [facility] [id number] Univers 13:00:00 13:00:00 KARINA warnermervin [facility] 2021-02-09 2021-02-09 Erin Genie [facility] 1.2.631.495 [id number] Univers 00:00:00 00:00:00 Karina Rasmussen [facility] 350.1.13.10 i ty of [place] 4.2.7.2.686 Ernst as Professio [phone] [address] One 2021-02-07 2021-02-07 [facility] [id number] Univers 09:00:00 09:00:00 JONATHAN kinney [facility] 2021-02-03 2021-02-03 Nurse 1, Adc Infusion Chair [facility] 1.2. 840.114 [id number] Univers 08:59:12 09:59:12 Visit Jonathan Tanner 350.1. 13.10 [place] [id number] [address] 2021-02-03 2021-02-03 Outpatient R FLORES [facility] 1034 [id number] Univers 09:00:00 09:00:00 JONATHAN kinney [facility] 2021-01-31 2021-01-31 Nurse 1, Adc Infusion Chair [facility] 1.2. 840.114 [id number] Univers 08:57:12 09:57:12 Visit Jonathan Tanner 350.1. 13.10 [place] [id number] [address] 2021-01-31 2021-01-31 Outpatient Nagi TANNER [facility] 1034 [id number] Univers 09:00:00 09:00:00 JONATHAN kinney [facility] 2021-01-27 2021-01-27 Nurse 1, Adc Infusion Nurse [facility] 1.2. 840.114 [id number] Univers 09:06:24 09:36:24 Visit Jonathan Tanner 350.1. 13.10 [place] [id number] [address] 2021-01-27 2021-01-27 Outpatient R FLORES [facility] [id number] Univers 09:00:00 09:00:00 JONATHAN ity [facility] 2021-01-21 2021-01-24 Telemedici [facility] 1.2.840.114 [id number] [facility] 07:49:07 08:34:33 ne Visit Jonathan Rosen 350.1.13.10 [place] [phone] Ar dical nal 231 [facility] 2021-01-24 2021-01-24 Telephone [facility] 1.2.840.114 [id number] Univers 00:00:00 00:00:00 Jonathan Rosen 350.1.13.10 [place] [phone] Ar dical nal 044 [facility] 2021-01-21 2021-01-21 Out[facility] [id number] Univers 15:00:00 15:00:00 JONATHAN kinney [facility] 2021-01-18 2021-01-18 Nurse 1, Adc Infusion Chair [facility] 1.2. 840.114 [id number] Univers 10:26:46 12:26:46 Visit Isiah Smith Rp 350.1.13.10 [place] [id number] [address] 2021-01-18 2021-01-18 Edm Operator Darryl, Adc Lab Main [facility] 1.2.8 40.114 [id number] Univers 10:24:24 10:39:24 Visit Jonathan Tanner 350.1. 13.10 [place] [phone] Ar dical nal 353 [facility] 2021-01-18 2021-01-18 Outpatient R SARAHISIAH Rasmussen [facility] [id number] Univers 10:30:00 10:30:00 ity of [facility] 2021-01-18 2021-01-18 Ancillary ValenzuelaZully etienne Yang [facility] 1.2.840. 114 [id number] Univers 08:59:30 10:01:10 Visit Jess Whiting 350.1.13.10 [place] [phone] Ar dical nal 179 [facility] 2021-01-18 2021-01-18 Outpatient R JOHANNE [facility] [id number] Univers 09:00:00 09:00:00 JESS ity of [facility] 2021-01-18 2021-01-18 Orders Doctor YARED 1.2.840.114 [id number] Univers 00:00:00 00:00:00 Only Unassigned, PENELOPE 350.1.13.10 ity of [facility] 4.2.7.2.686 Ernst as [id number] [address] 2021-01-18 2021-01-18 Telephone [facility] 1.2.840.114 [id number] Univers 00:00:00 00:00:00 Jonathan Rosen 350.1.13.10 [place] [phone] Ar dical [facility] 044 [facility] 2021-01-18 2021-01-18 [facility] 1.2.840.114 [id number] Univers 00:00:00 00:00:00 Jonathan Rosen 350.1.13.10 [place] [phone] Ar dical [facility] 044 [facility] 2021-01-18 2021-01-18 Telephone Tanner, [facility] 1.2.840.114 [id number] Univers 00:00:00 00:00:00 Jonathan Rosen 350.1.13.10 [place] [phone] Ar dical nal 044 [facility] 2021-01-18 2021-01-18 Telephone [facility] 1.2.840.114 [id number] Univers 00:00:00 00:00:00 Jonathan Rosen 350.1.13.10 [place] [phone] Ar dicri nal 231 [facility] 2021-01-13 2021-01-13 Telephone [facility] 1.2.840.114 [id number] Univers 00:00:00 00:00:00 Jonathan Rosen 350.1.13.10 [place] [phone] Ar dical nal 044 [facility] 2021-01-11 2021-01-11 Nurse 1, Adc Infusion Chair [facility] 1.2. 840.114 [id number] [facility] 09:15:55 10:15:55 Visit Jonathan Tanner 350.1. 13.10 [place] [id number] [address] 2021-01-11 2021-01-11 Outpatient R FLORES [facility] [id number] Univers 09:00:00 09:00:00 JONATHAN ity of [facility] 2021-01-11 2021-01-11 [facility] 1.2.840.114 [id number] Univers 00:00:00 00:00:00 Jonathan Rosen 350.1.13.10 [place] [phone] Ar dical nal 044 [facility] 2021-01-11 2021-01-11 Refill Flores [facility] 1.2.840.114 [id number] Univers 00:00:00 00:00:00 Jonathan Britoton 350.1.13.10 [place] [phone] Ar dical nal 231 [facility] 2021-01-11 2021-01-11 [facility] 1.2.840.114 [id number] Univers 00:00:00 00:00:00 Jonathan Britoton 350.1.13.10 [place] [phone] Ar dical nal 044 [facility] 2021-01-06 2021-01-06 [facility] 1.2.840.114 [id number] Univers 10:55:38 23:59:00 Encounter Jonathan Rosen 350.1.13.10 [place] [phone] [facility] [address] 2021-01-06 2021-01-06 [id number] Univers 00:00:00 00:00:00 JONATHAN kinney [facility] 2021-01-03 2021-01-03 Nurse 1, Adc Infusion Nurse [facility] 1.2. 840.114 [id number] Univers 10:06:03 11:06:03 Visit Jonathan Tanner 350.1. 13.10 [place] [id number] [facility] [address] 2021-01-03 2021-01-03 [facility] [id number] Univers 10:00:00 10:00:00 JONATHAN kinney [facility] 2021-01-03 2021-01-03 Orders Doctor LAWSON 1.2.840.114 [id number] Univers 00:00:00 00:00:00 Only Unassigned, PENELOPE 350.1.13.10 ity of [facility] 4.2.7.2.686 Ernst as [phone] [facility] [address] 2021-01-03 2021-01-03 Telephone Flores [facility] 1.2.840.114 [id number] Univers 00:00:00 00:00:00 Jonathan Rosen 350.1.13.10 [place] [phone] [facility] 231 [facility] 2020-12-31 2020-12-31 Office Ochoa [facility] 1.2.840.114 [id number] Univers 14:48:05 15:17:32 Visit Ronaldo CARTER 350.1.13.10 [place] [phone] [facility] AND [address] [facility] 2020-12-31 2020-12-31 Outpatient Nagi [facility] [id number] Univers 15:15:00 15:15:00 RONALDO kinney [facility] 2020-12-30 2020-12-30 Outpatient Nagi [facility] [id number] Univers 15:00:00 15:00:00 JONATHAN kinney [facility] 2020-12-30 2020-12-30 [facility]medici [facility] 1.2.840.114 [id number] Univers 07:46:33 08:26:33 ne Visit Jonathan Rosen 350.1.13.10 [place] [phone] [address] 2020-12-23 2020-12-23 Nurse 1, Adc Infusion Chair [facility] 1.2. 840.114 [id number] Univers 07:57:05 08:57:05 Visit Jonathan Tanner 350.1. 13.10 [place] [phone] [facility] [address] 2020-12-23 2020-12-23 Outpatient Nagi [facility] 1033 [id number] Univers 08:00:00 08:00:00 JONATHAN kinney [facility] 2020-12-17 2020-12-17 Siva Cummins [facility] 1.2.840.114 [id number] Univers 00:00:00 00:00:00 Lui Rosen 350.1.13.10 [place] [phone] Ar dical nal 092 [facility] 2020-12-16 2020-12-16 Nurse 1, Adc Infusion Chair [facility] 1.2. 840.114 [id number] Univers 09:09:12 10:09:12 Visit Jonathan Tanner 350.1. 13.10 [place] [phone] [address] 2020-12-16 2020-12-16 [facility] 1033 [id number] Univers 09:15:00 09:15:00 JONATHAN kinney [facility] 2020-12-09 2020-12-09 Refcristin [facility] 1.2.840.114 [id number] Univers 00:00:00 00:00:00 Jonathan Rosen 350.1.13.10 [place] [phone] Ar dical nal 231 [facility] 2020-12-07 2020-12-07 Nurse 1, Adc Infusion Nurse [facility] 1.2. 840.114 [id number] Univers 10:11:38 10:41:38 Visit Jonathan Tanner 350.1. 13.10 [place] [phone] [address] 2020-12-07 2020-12-07 Outpatient Nagi [facility] 1033 [id number] Univers 10:00:00 10:00:00 JONATHAN kinney [facility] 2020-11-29 2020-11-29 Outpatient [facility] [id number] Univers 16:00:00 16:00:00 JONATHAN ity of [facility] 2020-11-29 2020-11-29 [facility]medici [facility] 1.2.840.114 [id number] [facility] 10:06:44 10:26:44 ne Visit Jonathan Britoton 350.1.13.10 [place] [phone] [address] 2020-11-05 2020-11-05 Telephone [facility] 1.2.840.114 [id number] [facility] 00:00:00 00:00:00 Jonathan Valery [place] 350.1.13.10 [place] [phone] [address] 2020-11-04 2020-11-04 [facility] 1.2.840.114 [id number] [facility] 00:00:00 00:00:00 Secure Msg Jonathan Valery [place] 350.1.13.10 [place] [phone] [address] 2020-11-02 2020-11-02 Out[facility] 1032 [id number] [facility] 15:00:00 15:00:00 JONATHAN kinney [facility] 2020-11-02 2020-11-02 Edm Operator José Manuel Andrews Lab Main [facility] 1.2.8 40.114 [id number] [facility] 08:48:46 09:03:46 Visit TannerJonathan hearn 350.1. 13.10 [place] [phone] [facility] 353 [facility] 2020-11-02 2020-11-02 Telemedici [facility] 1.2.840.114 [id number] [facility] 07:56:52 08:36:52 ne Visit Jonathan Britoton 350.1.13.10 [place] [phone] Ar dical [facility] 231 [facility] 2020-11-02 2020-11-02 Orders Doctor YARED 1.2.840.114 [id number] Univers 00:00:00 00:00:00 Only Unassigned, PENELOPE 350.1.13.10 ity of [facility] 4.2.7.2.686 Ernst as [phone] [address] 2020-10-15 2020-10-15 Telephone [facility] 1.2.840.114 [id number] Univers 00:00:00 00:00:00 Jonathan Rosen 350.1.13.10 [place] [phone] [facility] 044 [facility] 2020-10-14 2020-10-14 Refill Tanner, [facility] 1.2.840.114 [id number] Univers 00:00:00 00:00:00 Jonathan Rosen 350.1.13.10 [place] [phone] [facility] 231 [facility] 2020-10-13 2020-10-13 Outpatient [facility] [id number] [facility] 12:30:00 12:30:00 JONATHAN itmervin of [facility] 2020-10-13 2020-10-13 Edm Operator José Manuel Andrews Lab Main [facility] 1.2.8 40.114 [id number] Univers 11:29:42 11:44:42 Visit Jonathan Tanner 350.1. 13.10 [place] [phone] [facility] 353 [facility] 2020-10-07 2020-10-07 Telemedici Tanner, [facility] 1.2.840.114 [id number] Univers 07:41:15 15:48:07 ne Visit Jonathan Rosen 350.1.13.10 [place] [phone] Ar dical nal 231 [facility] 2020-10-07 2020-10-07 Outpatient Nagi [facility] [id number] Univers 15:00:00 15:00:00 JONATHAN kinney of [facility] 2020-09-27 2020-09-27 Patient [facility] 1.2.840.114 [id number] Univers 00:00:00 00:00:00 Outreach Elmerrichard WERNER 350.1.13.10 i ty of [facility] 4.2.7.2.[place] [phone] Ar dical [address] [place] 2020-09-17 2020-09-17 Hospital [facility] 1.2.840.114 [id number] Univers 07:30:00 10:09:00 Encounter Yared Rosen 350.1.13.10 ity of [place] [phone] [facility] [address] [place] 2020-09-17 2020-09-17 Telephone [facility] 1.2.363.293 [id number] Univers 00:00:00 00:00:00 Molly Rosen 350.1.13.10 [place] of [place] [phone] Ar dical nal 204 [facility] 2020-09-16 2020-09-16 Laboratory Only, Adc Test [facility] 1.2.840. 114 [id number] Univers 08:55:15 09:10:15 Only Yared Sw[place] 350.1.13 .10 ity of [place].2.[place] [phone] [facility] [address] [place] 2020-09-16 2020-09-16 Outpatient Nagi [facility] [id number] Univers 08:45:00 08:45:00 YARED kinney of [facility] 2020-09-16 2020-09-16 Orders Doctor YARED 1.2.840.114 [id number] Univers 00:00:00 00:00:00 Only UnassPENELOPE negron 350.1.13.10 ity of [facility] 4.2.7.2.686 Ernst as [phone] [address] 2020-09-03 2020-09-03 Office Sky [facility] 1.2.840.114 [id number] Univers 12:54:52 14:10:58 Visit Yared Rosen 350.1.13.10 i ty of [place] [phone] [facility] 188 [facility] 2020-09-03 2020-09-03 Outpatient R SKY [facility] [id number] Univers 10:45:00 10:45:00 YARED kinney of [facility] 2020-09-03 2020-09-03 Prep For [facility] 1.2.840.114 [id number] [facility] 00:00:00 00:00:00 Surgery Molly Rosen 350.1.13.10 [place] [phone] Ar dical [facility] 204 [facility] 2020-08-05 2020-08-05 Telephone [facility] 1.2.840.114 [id number] Univers 00:00:00 00:00:00 Jonathan Rosen 350.1.13.10 [place] of [place] [phone] [facility]. [facility] 231 [facility] 2020-08-03 2020-08-04 Telemedici [facility] 1.2.840.114 [id number] Univers 08:30:03 07:49:45 ne Visit Jonathan Rosen 350.1.13.10 [place] of [place] [phone] Ar dicst. [facility] 231 [facility] 2020-08-04 2020-08-04 Telephone [facility] 1.2.840.114 [id number] Univers 00:00:00 00:00:00 Jonathan Rosen 350.1.13.10 [place] [phone] Ar dicst. [facility] 231 [facility] 2020-08-04 2020-08-04 Refill [facility] 1.2.840.114 [id number] Univers 00:00:00 00:00:00 Jonathan Rosen 350.1.13.10 [place] [phone] [facility] 231 [facility] 2020-08-04 2020-08-04 Patient [facility] 1.2.840.114 [id number] Univers 00:00:00 00:00:00 Secure Msg Jonathan Rosen 350.1.13.10 [place] [phone] [facility] 231 [facility] 2020-08-03 2020-08-03 Out[facility] 1030 [id number] Univers 15:40:00 15:40:00 JONATHAN ity of [facility] 2020-08-03 2020-08-03 Orders Doctor YARED 1.2.840.114 [id number] Univers 00:00:00 00:00:00 Only Unassigned, PENELOPE 350.1.13.10 ity of [facility] 4.2.7.2.686 Ernst as [phone] [address] 2020-08-02 2020-08-02 Telephone [facility] 1.2.840.114 [id number] Univers 00:00:00 00:00:00 Lui Rosen 350.1.13.10 [place] [phone] [facility] 092 [facility] 2020-07-19 2020-07-19 Refill [facility] 1.2.840.114 [id number] Univers 00:00:00 00:00:00 Jonathan Rosen 350.1.13.10 [place] [phone] Ar [facility] 231 [facility] 2020-07-19 2020-07-19 Telephone [facility] 1.2.840.114 [id number] Univers 00:00:00 00:00:00 Jonathan Rosen 350.1.13.10 [place] [phone] [facility] 231 [facility] 2020-07-16 2020-07-16 Outpatient Young_J [facility]G [facility] [id number] 021 [place] 12:59:00 12:59:00 [facility] 2020-07-16 2020-07-16 Office [facility] 1.2.840.114 [id number] Univers 10:28:42 10:56:44 Visit Yared Rosen 350.1.13.10 i ty of [place] 4[place]2.[place].2.[place] [phone] [facility] 188 [facility] 2020-07-16 2020-07-16 Outpatient R SKY [facility] [id number] Univers 10:30:00 10:30:00 YARED kinney of [facility] 2020-07-14 2020-07-14 Telephone [facility] 12.840.114 8 [id number] Univers 00:00:00 00:00:00 Jonathan Rosen 350.1.13.10 [place] of [place] [phone] [address] 2020-07-14 2020-07-14 [facility]phone [facility] 12.840.114 8 [id number] Univers 00:00:00 00:00:00 Jonathan Rosen 350.1.13.10 [place] of [place]2.[place] [phone] [facility] 044 [facility] 2020-07-13 2020-07-13 Telephone [facility] 1.2.905.058 [id number] Univers 00:00:00 00:00:00 Yared Rosen 350.1.13.10 i ty of [place] 4.2.7.2.[place] [phone] Ar dical nal 188 [facility] 2020-07-07 2020-07-07 Telephone [facility] 1.2.840.114 8 [id number] Univers 00:00:00 00:00:00 Jonathan Rosen 350.1.13.10 [place] of [place]2.[place] [phone] Ar dical nal 044 [facility] 2020-06-25 2020-06-28 Telemedici [facility] 1.2.840.114 [id number] Univers 08:22:18 11:54:25 ne Visit Jonathan Rosen 350.1.13.10 [place] of [place].2.[place] [phone] Ar dical nal 231 [facility] 2020-06-28 2020-06-28 Outpatient [facility] 1030 [id number] Univers 09:15:00 09:15:00 JONATHAN kinney [facility] 2020-06-28 2020-06-28 Edm Operator Darryl, Adc Lab Main [facility] 1.2.8 40.114 [id number] Univers 08:42:11 08:57:11 Visit Jonathan Tanner 350.1. 13.10 [place] of [place].2.[place] [phone] Ar dical nal 353 [facility] 2020-06-28 2020-06-28 Orders Doctor YARED 1.2.840.114 [id number] Univers 00:00:00 00:00:00 Only Unassigned, PENELOPE 350.1.13.10 ity of [facility] 4.2.7.2.686 Ernst as [phone] [address] 2020-06-25 2020-06-25 Outpatient R FLORES [facility] [id number] Univers 15:40:00 15:40:00 JONATHAN kinney [facility] 2020-06-22 2020-06-22 Telephone [facility] 1.2.840.114 [id number] Univers 00:00:00 00:00:00 Jonathan Rosen 350.1.13.10 [place] [phone] [facility] 231 [facility] 2020-06-22 2020-06-22 Orders Doctor YARED 1.2.840.114 [id number] Univers 00:00:00 00:00:00 Only Unassigned, PENELOPE 350.1.13.10 [facility] 4.2.7.2.686 [place] as [phone] [address] 2020-06-17 2020-06-17 Telephone [facility] 1.2.840.114 8 [id number] Univers 00:00:00 00:00:00 Jonathan Rosen 350.1.13.10 [place] [phone] [address] 2020-06-16 2020-06-16 Telephone [facility] 1.2.840.114 8 [id number] Univers 00:00:00 00:00:00 Jonathan Rosen 350.1.13.10 [place].2.[place] [phone] [address] 2020-06-16 2020-06-16 Telephone [facility] 1.2.840.114 [id number] Univers 00:00:00 00:00:00 Lui Rosen 350.1.13.10 [place].2.[place] [phone] [facility] 092 [facility] 2020-06-15 2020-06-15 Outpatient [facility] 1029 [id number] Univers 10:20:00 10:20:00 JONATHAN ity of [facility] 2020-06-15 2020-06-15 Telephone [facility] 1.2.840.114 8 [id number] Univers 00:00:00 00:00:00 Jonathan Rosen 350.1.13.10 [place] [phone] Ar dicst. [facility] 231 [facility] 2020-06-11 2020-06-11 Laboratory Lab, Adc Fam Pob I [facility] 1.2. 840.114 [id number] Univers 11:03:12 11:23:12 Only Karina Prescott [facility] 350.1.13.10 ity of [place] 4.2.7.2.686 Ernst as Professio [phone] [facility] [address] [place] Office [facility] 2020-06-11 2020-06-11 Outpatient R [facility] [id number] Univers 11:00:00 11:00:00 ity of [facility] 2020-06-07 2020-06-07 Telephone [facility] 1.2.840.114 7 [id number] Univers 00:00:00 00:00:00 Jonathan Rosen 350.1.13.10 [place] [phone] [address] 2020-06-07 2020-06-07 Orders Doctor YARED 1.2.840.114 [id number] Univers 00:00:00 00:00:00 Only Unassigned, PENELOPE 350.1.13.10 ity of [facility] 4.2.7.2.686 Ernst as [phone] [address] 2020-05-27 2020-05-28 Telemedici [facility] 1.2.840.114 [id number] Univers 07:57:25 14:13:07 ne Visit Jonathan Rosen 350.1.13.10 [place] [phone] [address] 2020-05-27 2020-05-27 Outpatient [facility] 1029 [id number] Univers 16:00:00 16:00:00 JONATHAN ity of [facility] 2020-05-17 2020-05-17 Telephone [facility] 1.2.840.114 7 [id number] Univers 00:00:00 00:00:00 Jonathan A [place] 350.1.13.10 [place].2.[place] [phone] Ar dicri nal 044 [facility] 2020-05-16 2020-05-16 Orders Doctor YARED 1.2.840.114 [id number] Univers 00:00:00 00:00:00 Only Unassigned, PENELOPE 350.1.13.10 ity of [facility] 4.2.7.2.686 Ernst as [phone] [address] 2020-05-14 2020-05-14 Office Yared [facility] 1.2.840.114 [id number] [facility] 09:14:26 10:30:00 Visit Lui Rosen 350.1.13.10 [place] [phone] [facility] 092 [facility] 2020-05-14 2020-05-14 Outpatient R LUI CUMMINS [facility] [id number] Univers 09:20:00 09:20:00 LUI CUMMINS ity of [facility] 2020-05-11 2020-05-11 Telephone [facility] 1.2.840.114 [id number] [facility] 00:00:00 00:00:00 Jonathan A [place] 350.1.13.10 [place]2.[place] [phone] Ar dicst. [facility] 231 [facility] 2020-05-10 2020-05-10 Refill Tanner, [facility] 1.2.840.114 [id number] Univers 00:00:00 00:00:00 Jonathan A [place] 350.1.13.10 [place]2.[place] [phone] Ar dicst. [facility] 231 [facility] 2020-05-05 2020-05-05 Telephone [facility] 1.2.840.114 [id number] Univers 00:00:00 00:00:00 Jonathan A [place] 350.1.13.10 [place]2.[place] [phone] Ar dical nal 231 [facility] 2020-04-29 2020-04-29 Orders Doctor YARED 1.2.840.114 [id number] Univers 00:00:00 00:00:00 Only Unassigned, PENELOPE 350.1.13.10 ity of [facility] 4.2.7.2.686 Ernst as [phone] [address] 2020-04-27 2020-04-27 Telephone [facility] 1.2.840.114 7 [id number] Univers 00:00:00 00:00:00 Jonathan A [place] 350.1.13.10 [place] [phone] Ar dical nal [address] [place] [address] 2020-04-22 2020-04-26 Telemedici [facility] 1.2.840.114 [id number] Univers 07:49:17 10:56:47 ne Visit Jonathan Britoton 350.1.13.10 [place] [phone] Ar dical nal [address] [place] [address] 2020-04-23 2020-04-23 Telephone [facility] 1.2.840.114 7 [id number] Univers 00:00:00 00:00:00 Jonathan A [place] 350.1.13.10 [place] [phone] Ar dical [address] 2020-04-22 2020-04-22 [facility] [id number] Univers 15:00:00 15:00:00 JONATHAN ity of [facility] 2020-04-14 2020-04-14 Telephone [facility] 1.2.840.114 7 [id number] Univers 00:00:00 00:00:00 Jonathan A [place] 350.1.13.10 [place]2.[place] [phone] Ar dical [address] 2020-04-05 2020-04-05 Telephone [facility] 1.2.840.114 7 [id number] Univers 00:00:00 00:00:00 Jonathan Rosen 350.1.13.10 [place] [phone] Ar dical nal 231 [facility] 2020-03-23 2020-03-23 [facility] [id number] Univers 10:41:17 23:59:00 JONATHAN ity [facility] 2020-03-23 2020-03-23 [facility] 1.2.840.114 [id number] Univers 10:41:17 23:59:00 Encounter Jonathan QUACH 350.1.13.10 ity of [facility] [place].2.7.2.[place] AT [phone] Ar florentin HANSON 804 [facility] 2020-03-23 2020-03-23 [facility] 1028 [id number] Univers 00:00:00 00:00:00 [facility]-03-18 2020-03-18 [facility] 1028 [id number] Univers 16:00:00 16:00:00 JONATHAN ity [facility] 2020-03-18 2020-03-18 Telemedici [facility] 1.2.840.114 [id number] Univers 08:18:41 08:58:41 ne Visit Jonathan Rosen 350.1.13.10 [place] [phone] Ar dical [address] 2020-03-18 2020-03-18 Telephone [facility] 1.2.840.114 7 [id number] Univers 00:00:00 00:00:00 Jonathan Rosen 350.1.13.10 [place] [phone] Ar dical nal 044 [facility] 2020-03-17 2020-03-17 Orders Doctor YARED 1.2.840.114 [id number] Univers 00:00:00 00:00:00 Only Unassigned, PENELOPE 350.1.13.10 ity of [facility] 4.2.7.2.686 Ernst as [phone] [address] 2020-03-04 2020-03-04 [facility] [id number] Univers 16:15:00 16:15:00 JUAN ity [facility] 2020-02-27 2020-02-27 Orders Doctor YARED 1.2.840.114 [id number] Univers 00:00:00 00:00:00 Only Unassigned, PENELOPE 350.1.13.10 ity of [facility] 4.2.7.2.686 Ernst as [phone] [address] 2020-02-16 2020-02-16 Telephone [facility] 1.2.840.114 [id number] Univers 00:00:00 00:00:00 Jonathanling Britoton 350.1.13.10 [place] [phone] Ar dical nal 044 [facility] 2020-02-13 2020-02-13 Telemedici [facility] 1.2.840.114 [id number] Univers 14:19:44 16:52:45 ne Visit Jonathan Britoton 350.1.13.10 [place] [phone] Ar dical nal 231 [facility] 2020-02-13 2020-02-13 [facility] [id number] Univers 14:20:00 14:20:00 JONATHAN ity [facility] 2020-02-13 2020-02-13 Telephone [facility] 1.2.840.114 [id number] Univers 00:00:00 00:00:00 Jonathan A [place] 350.1.13.10 [place] [phone] Ar dical nal 044 [facility] 2020-02-12 2020-02-12 Outpatient R SELLERS [facility] [id number] Univers 10:00:00 10:00:00 NORBERT landry f [facility] 2020-02-12 2020-02-12 Outpatient R SELLERS, [facility] [id number] Univers 10:00:00 10:00:00 NORBERT landry f [facility] 2020-02-03 2020-02-03 Telephone [facility] 1.2.231.953 [id number] Univers 00:00:00 00:00:00 Yared Rosen 350.1.13.10 i ty of [place] [phone] [facility] 204 [facility] 2020-02-02 2020-02-02 Telephone [facility], [facility] 1.2.840.114 [id number] Univers 00:00:00 00:00:00 Jonathan Rosen 350.1.13.10 [place] [phone] [facility] 044 [facility] 2020-01-30 2020-01-30 Office [facility] 1.2.840.114 [id number] [facility] 10:04:01 11:44:36 Visit Yared Rosen [id number] i ty of [place] [id number] [phone] [facility] 377 [facility] 2020-01-30 2020-01-30 [facility] [id number] [facility] 10:15:00 10:15:00 YARED kinney of [facility] 2020-01-30 2020-01-30 Telephone [facility]anner, [facility] 1.2.840.114 [id number] [facility] 00:00:00 00:00:00 Jonathan Rosen [id number] [id number] [phone] [facility] 231 [facility] 2020-01-27 2020-01-27 [facility] 1.2.840.114 [id number] [facility] 00:00:00 00:00:00 Jonathan Rosen [id number] [id number] [phone] [facility] 044 [facility] 2020-01-27 2020-01-27 Telephone [facility] [id number] [facility] 00:00:00 00:00:00 Yared Rosen [id number] i ty of [place] [id number] [phone] [facility] 377 [facility] 2020-01-27 2020-01-27 [facility] 1.2.840.114 [id number] [facility] 00:00:00 00:00:00 Management Molly Rosen [id number] [id number] [phone] [facility] 204 [facility] 2020-01-22 2020-01-22 [facility] 1.2.840.114 [id number] Univers 07:58:37 17:03:57 ne Visit Jonathan Rosen 350.1.13.10 it[place] of [place] [phone] [facility] 231 [facility] 2020-01-22 2020-01-22 Outpatient [facility] [id number] Univers 12:20:00 12:20:00 JONATHAN kinney of [facility] 2020-01-20 2020-01-20 Refill [facility] 1.2.840.114 [id number] Univers 00:00:00 00:00:00 Jonathan Rosen 350.1.13.10 [place] [phone] [facility] 231 [facility] 2020-01-19 2020-01-19 Outpatient R [facility] 1027 [id number] Univers 09:15:00 09:15:00 JONATHAN kinney of [facility] 2020-01-17 2020-01-17 Orders Doctor YARED 1.2.840.114 [id number] Univers 00:00:00 00:00:00 Only Unassigned, PENELOPE 350.1.13.[address] [facility] 4.2.7.2.686 Ernst as [phone] [place] [address] [place] 2020-01-09 2020-01-09 Telephone [facility] 1.2.840.114 [id number] Univers 00:00:00 00:00:00 Lui Rosen 350.1.13.10 [place] [phone] Ar dical nal 092 [facility] 2020-01-08 2020-01-08 Outpatient [facility] 1027 [id number] Univers 13:15:00 13:15:00 JUAN kinney [facility] 2019-12-30 2019-12-30 Office [facility] 1.2.840.114 [id number] Univers 10:17:50 11:32:54 Visit Jonathan Rosen 350.1.13.10 [place] [phone] Ar dicri nal 231 [facility] 2019-12-30 2019-12-30 Outpatient R [facility] [id number] Univers 10:20:00 10:20:00 JONATHAN kinney [facility] 2019-12-25 2019-12-25 Telemedici [facility] 1.2.840.114 [id number] Univers 07:33:16 11:35:26 ne Visit Juan CARTER 350.1.13.10 ity of [facility] [place]2.[place].2.[place] [phone] [facility] AND [address] [facility] 2019-12-25 2019-12-25 Outpatient Nag[facility] [id number] Univers 10:15:00 10:15:00 JUAN kinney [facility] 2019-11-26 2019-11-26 Telephone [facility] 1.2.840.114 7 [id number] Univers 00:00:00 00:00:00 Jonathan A [place] 350.1.13.10 [place] [phone] [address] 2019-11-24 2019-11-24 [facility]phone [facility] 1.2.840.114 7 [id number] Univers 00:00:00 00:00:00 Jonathan A [place] 350.1.13.10 [place] [phone] [address] 2019-11-24 2019-11-24 Telephone [facility] 1.2.840.114 7 [id number] Univers 00:00:00 00:00:00 Jonathan A [place] 350.1.13.10 [place] [phone] [address] 2019-11-21 2019-11-21 [place] [facility] 1.2.840.114 7 [id number] Univers 00:00:00 00:00:00 Jonathan A [place] 350.1.13.10 it[place] [phone] [address] 2019-11-20 2019-11-20 [place] [facility] 1.2.840.114 7 [id number] Univers 00:00:00 00:00:00 Jonathan A [place] 350.1.13.10 [place] [phone] [address] 2019-11-19 2019-11-19 Telephone [facility] 1.2.840.114 7 [id number] Univers 00:00:00 00:00:00 Jonathan A [place] 350.1.13.10 [place] [phone] [address] 2019-11-18 2019-11-18 Telemedici [facility] 1.2.840.114 [id number] Univers 07:34:02 13:35:30 ne Visit Jonathan Rosen 350.1.13.10 [place] [phone] [address] 2019-11-18 2019-11-18 Outpatient [facility] [id number] [facility] 12:20:00 12:20:00 JONATHAN ity of [facility] 2019-11-18 2019-11-18 Orders Doctor YARED 1.2.840.114 [id number] Univers 00:00:00 00:00:00 Only Unassigned, PENELOPE 350.1.13.10 ity of [facility] 4.2.7.2.686 Ernst as [phone] [address] 2019-11-17 2019-11-17 Telephone [facility] 1.2.840.114 7 [id number] Univers 00:00:00 00:00:00 Jonathan Britoton 350.1.13.10 [place] [phone] [address] 2019-10-17 2019-11-14 Telemedici [facility] 1.2.840.114 [id number] Univers 08:28:34 13:09:42 ne Visit Jonathan Rosen 350.1.13.10 [place] [phone] [address] 2019-11-12 2019-11-12 Patient [facility] 1.2.840.114 [id number] Univers 00:00:00 00:00:00 Secure Msg Jonathan A [place] 350.1.13.10 it[place] of [place] [phone] [address] 2019-11-06 2019-11-06 Office [facility] 1.2.840.114 [id number] Univers 13:45:34 14:00:34 Visit [facility] 350.1.13.10 it y of [place] [facility] [place].2.[place] - [phone] [address] 2019-11-06 2019-11-06 Outpatient Nagi [facility] [id number] Univers 14:00:00 14:00:00 YARED ity [facility] 2019-11-05 2019-11-05 Telephone [facility] 1.2.840.114 7 [id number] Univers 00:00:00 00:00:00 Jonathan A [place] 350.1.13.10 [place] [phone] Ar dic[address] 2019-10-26 2019-10-26 Telephone [facility] 1.2.840.114 7 [id number] Univers 00:00:00 00:00:00 Jonathan A [place] 350.1.13.10 [place] [phone] [facility] 231 [facility] 2019-10-23 2019-10-23 Telephone [facility] 1.2.840.114 7 [id number] Univers 00:00:00 00:00:00 Jonathan A [place] 350.1.13.10 [place] [phone] [address] 2019-10-17 2019-10-17 Outpatient Nagi [facility] 1026 [id number] Univers 12:00:00 12:00:00 JONATHAN ity of [facility] 2019-09-17 2019-10-16 Ancillary Therapist, Adc Occup [facility] 1.2 .840.114 [id number] Univers 13:03:54 09:53:47 Visit Jess Whiting 350.1.13.10 [place] [phone] [facility] 178 [facility] 2019-10-14 2019-10-15 Telemedici [facility] 1.2.840.114 [id number] Univers 09:13:19 08:23:45 ne Visit Lui Rosen 350.1.13.10 [place] [phone] [facility] 092 [facility] 2019-10-15 2019-10-15 Telephone [facility] 1.2.840.114 7 [id number] Univers 00:00:00 00:00:00 Jonathan A [place] 350.1.13.10 [place] [phone] [facility] 044 [facility] 2019-10-14 2019-10-14 Outpatient LUI [facility] [id number] Univers 09:40:00 09:40:00 YAREDLUI Padron [facility] 2019-10-13 2019-10-13 Out[facility] [id number] Univers 15:40:00 15:40:00 JONATHAN [facility] 2019-10-13 2019-10-13 Telephone [facility] 1.2.840.114 7 [id number] Univers 00:00:00 00:00:00 Jonathan Valery [place] 350.1.13.10 [place] [phone] [facility] 231 [facility] 2019-10-10 2019-10-10 Patient Tanner, [facility] 1.2.840.114 [id number] Univers 00:00:00 00:00:00 Secure Msg Jonathan A [place] 350.1.13.10 [place] [phone] [facility] 231 [facility] 2019-10-09 2019-10-09 Outpatient [facility] 1026 [id number] Univers 16:00:00 16:00:00 [facility] 2019-10-09 2019-10-09 Telephone [facility] 1.2.840.114 7 [id number] Univers 00:00:00 00:00:00 Jonathan Valery BritoEdgeley 350.1.13.10 [place] [phone] [facility] 231 [facility] 2019-10-07 2019-10-07 Outpatient R [facility] [id number] [id number] Univers 15:40:00 15:40:00 JONATHAN ity of [facility] 2019-10-07 2019-10-07 Office [facility] 1.2.840.114 [id number] Univers 08:24:49 15:21:33 Visit Jonathan Rosen 350.1.13.10 [place] [phone] [address] 2019-10-07 2019-10-07 Refill [facility] 1.2.840.114 [id number] Univers 00:00:00 00:00:00 Jonathan Rosen 350.1.13.10 [place] [phone] [address] 2019-10-07 2019-10-07 Telephone [facility] 1.2.840.114 7 [id number] Univers 00:00:00 00:00:00 Jonathan Rosen 350.1.13.10 [place] of [place] [phone] [facility] 231 [facility] 2019-10-06 2019-10-06 Telephone [facility] 1.2.840.114 7 [id number] Univers 00:00:00 00:00:00 Jonathan Britoton 350.1.13.10 [place] [phone] [facility] 044 [facility] 2019-10-03 2019-10-03 Telephone [facility] 1.2.840.114 7 [id number] Univers 00:00:00 00:00:00 Jonathan Britoton 350.1.13.10 [place] [phone] [address] 2019-09-30 2019-09-30 Telephone Tanner, [facility] 1.2.840.114 7 [id number] [facility] 00:00:00 00:00:00 Jonathan Britoton 350.1.13.10 [place] [phone] [address] 2019-09-25 2019-09-26 Telemedici [facility] 1.2.840.114 [id number] [facility] 17:25:55 17:37:14 ne Visit Jonathan Britoton 350.1.13.10 [place] [phone] [address] 2019-09-26 2019-09-26 Telephone [facility] 1.2.840.114 7 [id number] [facility] 00:00:00 00:00:00 Jonathan Britoton 350.1.13.10 [place] [phone] [address] 2019-09-26 2019-09-26 [facility] 1.2.840.114 7 [id number] [facility] 00:00:00 00:00:00 Jonathan Britoton 350.1.13.10 [place] [phone] [address] 2019-09-26 2019-09-26 [facility] 1.2.840.114 7 [id number] [facility] 00:00:00 00:00:00 Jonathan A [place] 350.1.13.10 [place] [phone] [address] 2019-09-25 2019-09-25 Outpatient R [facility] [id number] Univers 15:40:00 15:40:00 JONATHAN itmervin of [facility] 2019-09-25 2019-09-25 Telephone [facility] 1.2.840.114 7 [id number] Univers 00:00:00 00:00:00 Jonathan A [place] 350.1.13.10 [place] [phone] [address] 2019-09-23 2019-09-23 Orders Doctor YARED 1.2.840.114 [id number] Univers 00:00:00 00:00:00 Only Unassigned, PENELOPE 350.1.13.10 ity of [facility] 4.2.7.2.686 Ernst as [phone] [place] [address] [place] 2019-09-10 2019-09-22 Office Trish Aviles [facility] 1. 2.840.114 [id number] Univers 09:54:30 13:44:06 Visit Juan Baires MULTISPEC 350.1.1 3.10 it[place] of [place] C[place] [phone] [facility] AND [address] [facility] 2019-09-22 2019-09-22 Outpatient Nagi [facility] [id number] Univers 10:00:00 10:00:00 JUAN kinney [facility] 2019-09-18 2019-09-18 Telephone [facility]anner, [facility] 1.2.840.114 7 [id number] Univers 00:00:00 00:00:00 Jonathan Valery BritoEdgeley 350.1.13.10 [place] [phone] [address] 2019-09-18 2019-09-18 Telephone [facility] 1.2.840.114 7 [id number] Univers 00:00:00 00:00:00 Jonathan A [place] 350.1.13.10 [place] [phone] [address] 2019-09-18 2019-09-18 Telephone [facility] 1.2.840.114 7 [id number] Univers 00:00:00 00:00:00 Jonathan A [place] 350.1.13.10 [place] [phone] [address] 2019-09-18 2019-09-18 Telephone [facility] 1.2.840.114 7 [id number] Univers 00:00:00 00:00:00 Jonathan A [place] 350.1.13.10 [place] [phone] [address] 2019-09-17 2019-09-17 [facility] [id number] Univers 13:00:00 13:00:00 JESS ity [facility] 2019-09-16 2019-09-16 Office [facility] 1.2.840.114 [id number] Univers 08:04:32 10:07:43 Visit Jonathan A [place] 350.1.13.10 it[place] of [place] [phone] [address] 2019-09-16 2019-09-16 Outpatient [facility] [id number] Univers 08:00:00 08:00:00 JONATHAN ity [facility] 2019-09-16 2019-09-16 [facility] 1.2.840.114 7 [id number] Univers 00:00:00 00:00:00 Jonathan A [place] 350.1.13.10 [place] [phone] [address] 2019-09-15 2019-09-15 Telephone [facility] 1.2.840.114 7 [id number] Univers 00:00:00 00:00:00 Jonathan A [place] 350.1.13.10 [place] [phone] Ar dical [facility] 044 [facility] 2019-09-10 2019-09-10 Out[facility] [id number] Univers 10:10:00 10:10:00 JUAN ity of [facility] 2019-09-09 2019-09-09 Telephone [facility] 1.2.840.114 7 [id number] Univers 00:00:00 00:00:00 Jonathan Valery Health 350.1.13.10 ity of [place] 4.2.7.2.686 Ernst as Professio [phone] Ar dical [facility] [address] [place] Office [facility] One 2019-09-05 2019-09-05 Transition Karla Wagner 1.2.840.114 [id number] Univers 00:00:00 00:00:00 of Care Evelyn Renner 350.1.13.10 it y of [place] [phone] [facility] [address] [place] 2019-09-04 2019-09-04 Emergency X [facility] ERT [id number] Univers 15:31:21 18:38:00 YESSY [facility] 2019-09-04 2019-09-04 Emergency [facility] 1.2.766.891 [id number] Univers 15:31:21 18:38:00 Yessy Rosen 350.1.13.10 [place] [phone] [facility] [address] [place] 2019-09-04 2019-09-04 Telephone [facility] 1.2.840.114 7 [id number] Univers 00:00:00 00:00:00 Jonathan Britoton 350.1.13.10 [place] of [place] [phone] Ar dical nal 231 [facility] 2019-09-04 2019-09-04 Telephone [facility] 1.2.840.114 7 [id number] Univers 00:00:00 00:00:00 Jonathan Rasmussen [place] 350.1.13.10 [place] [phone] [address] 2019-09-03 2019-09-03 Telephone [facility] 1.2.840.114 7 [id number] Univers 00:00:00 00:00:00 Jonathan Rosen 350.1.13.10 [place] [phone] [address] 2019-09-03 2019-09-03 Orders Doctor YARED 1.2.840.114 [id number] Univers 00:00:00 00:00:00 Only Unassigned, PENELOPE 350.1.13.10 ity of [facility] 4.2.7.2.686 Ernst as [phone] [address] 2019-09-02 2019-09-02 Telephone [facility] 1.2.840.114 7 [id number] Univers 00:00:00 00:00:00 Jonathan Rosen 350.1.13.10 [place] [phone] [address] 2019-09-02 2019-09-02 Patient Mark Anthony [facility] 1.2.840.114 [id number] Univers 00:00:00 00:00:00 Secure Msg Nava SPECIALTY 350.1.13.10 ity of [facility] [place].2.[place] AT [phone] Ar florentin HANSON 072 [facility] 2019-08-29 2019-08-29 Orders Doctor YARED 1.2.840.114 [id number] Univers 00:00:00 00:00:00 Only Unassigned, PENELOPE 350.1.13.10 ity of [facility] 4.2.7.2.686 Ernst as [phone] [address] 2019-08-28 2019-08-28 Office Latasha [facility] 1.2.840.114 [id number] Univers 09:52:33 10:12:33 Visit [facility] 350.1.13.10 it y of [place].2.[place] [phone] [facility] [address] Office Building 2019-08-28 2019-08-28 Telephone [facility] 1.2.840.114 7 [id number] Univers 00:00:00 00:00:00 Jonathan Rosen 350.1.13.10 [place] [phone] Ar dical nal 044 [facility] 2019-08-28 2019-08-28 [facility] 1.2.840.114 [id number] [facility] 00:00:00 00:00:00 Lui Rosen 350.1.13.10 [place] [phone] [facility] 092 [facility] 2019-08-27 2019-08-27 [facility] 1.2.840.114 [id number] Univers 00:00:00 00:00:00 Lui Rosen 350.1.13.10 [place] [phone] Ar dicri nal 092 [facility] 2019-08-07 2019-08-25 Office [facility] 1.2.840.114 [id number] Univers 15:23:49 11:53:39 Visit Jonathan Rosen 350.1.13.10 [place] of [place] [phone] Ar dical nal 231 [facility] 2019-08-25 2019-08-25 [facility] 1.2.840.114 7 [id number] Univers 00:00:00 00:00:00 Jonathan Rosen 350.1.13.10 [place] [phone] Ar dicri nal 044 [facility] 2019-08-22 2019-08-22 [facility] 1.2.840.114 7 [id number] Univers 00:00:00 00:00:00 Jonathan Rosen 350.1.13.10 [place] [phone] [facility] 231 [facility] 2019-08-13 2019-08-13 Telephone [facility] 1.2.840.114 [id number] Univers 00:00:00 00:00:00 Lui Rosen 350.1.13.10 [place] [phone] [facility] 092 [facility] 2019-08-13 2019-08-13 [facility] 1.2.840.114 7 [id number] Univers 00:00:00 00:00:00 Jonathan Rosen 350.1.13.10 [place] [phone] [address] 2019-08-12 2019-08-12 [facility] 1.2.840.114 [id number] Univers 09:24:00 23:59:00 Encounter Jonathan Rosen 350.1.13.10 it[place] [phone] [facility] [address] [place] 2019-08-12 2019-08-12 Orders Doctor YARED 1.2.840.114 [id number] Univers 00:00:00 00:00:00 Only Unassigned, PENELOPE 350.1.13.10 ity of [facility] 4.2.7.2.686 Ernst as [phone] [facility] [address] [place] 2019-08-08 2019-08-08 Telephone [facility] 1.2.840.114 7 [id number] Univers 00:00:00 00:00:00 Jonathan Rosen 350.1.13.10 [place] [phone] [address] 2019-08-08 2019-08-08 Telephone [facility] 1.2.840.114 7 [id number] Univers 00:00:00 00:00:00 Jonathan Rosen 350.1.13.10 [place] [phone] Ar dical nal 231 [facility] 2019-08-08 2019-08-08 [facility] 1.2.840.114 [id number] Univers 00:00:00 00:00:00 Lui Rosen 350.1.13.10 [place] [phone] Ar dical nal 092 [facility] 2019-08-07 2019-08-07 Orders Doctor YARED 1.2.840.114 [id number] Univers 00:00:00 00:00:00 Only Unassigned, PENELOPE 350.1.13.10 ity of [facility] 4.2.7.2.686 Ernst as [phone] [address] 2019-08-05 2019-08-05 Telephone [facility] 1.2.840.114 [id number] [facility] 00:00:00 00:00:00 Lui Rosen 350.1.13.10 [place] [phone] Ar dical nal 092 [facility] 2019-08-04 2019-08-04 Telephone [facility] 1.2.840.114 7 [id number] [facility] 00:00:00 00:00:00 Jonathan Rosen 350.1.13.10 [place] [phone] Ar dical nal 044 [facility] 2019-07-31 2019-07-31 Telephone [facility] 1.2.840.114 [id number] Univers 00:00:00 00:00:00 Lui Rosen 350.1.13.10 [place] [phone] Ar dical nal 092 [facility] 2019-07-29 2019-07-29 [facility] 1.2.840.114 [id number] Univers 00:00:00 00:00:00 Lui Rosen 350.1.13.10 [place] [phone] Ar dical nal 092 [facility] 2019-07-29 2019-07-29 Telephone [facility] 1.2.840.114 7 [id number] Univers 00:00:00 00:00:00 Jonathan Rosen 350.1.13.10 [place] [phone] Ar dical nal 044 [facility] 2019-07-25 2019-07-25 Edm Operator 2, Adc Lab [facility] 1.2.840.114 [id number] Univers 08:29:21 08:44:21 Visit Jonathan Tanner 350.1. 13.10 [place] of [place] [phone] Ar dical nal 353 [facility] 2019-07-24 2019-07-24 Telephone [facility] 1.2.840.114 7 [id number] Univers 00:00:00 00:00:00 Jonathan Rosen 350.1.13.10 [place] of [place] [phone] Ar dical nal 231 [facility] 2019-07-24 2019-07-24 Telephone [facility] 1.2.840.114 7 [id number] Univers 00:00:00 00:00:00 Jonathan Rosen 350.1.13.10 [place] [phone] Ar dical nal 044 [facility] 2019-07-24 2019-07-24 Orders Doctor LAWSON 1.2.840.114 [id number] Univers 00:00:00 00:00:00 Only Unassigned, PENELOPE 350.1.13.10 ity of [facility] 4.2.7.2.686 Ernst as [phone] [address] 2019-07-24 2019-07-24 Telephone [facility] 1.2.840.114 7 [id number] [facility] 00:00:00 00:00:00 Jonathan Britoton 350.1.13.10 [place] [phone] Ar dickarol nal 044 [facility] 2019-07-23 2019-07-23 [place] [facility] 1.2.840.114 [id number] [facility] 00:00:00 00:00:00 Lui Rosen 350.1.13.10 [place] [phone] [facility]. [facility] 092 [facility] 2019-07-23 2019-07-23 [place] [facility] 1.2.840.114 7 [id number] [facility] 00:00:00 00:00:00 Jonathan A [place] 350.1.13.10 [place] [phone] Ar florentin sexton 044 [facility] 2019-07-23 2019-07-23 [place] [facility] 1.2.840.114 [id number] [facility] 00:00:00 00:00:00 Lui Rosen 350.1.13.10 [place] [phone] Ar eliseori carlie 092 [facility] 2019-07-23 2019-07-23 [place] [facility] 1.2.840.114 [id number] [facility] 00:00:00 00:00:00 Jonathan Britoton 350.1.13.10 [place] [phone] Ar florentin nal 231 [facility] 2019-07-22 2019-07-22 [facility] 1.2.840.114 [id number] [facility] 15:08:38 16:58:00 Visit Jonathan Rosen 350.1.13.10 [place] [phone] [facility] 231 [facility] 2019-07-16 2019-07-16 Telephone Yared [facility] 1.2.840.114 [id number] [facility] 00:00:00 00:00:00 Lui Rosen 350.1.13.10 [place] [phone] [facility] 092 [facility] 2019-07-11 2019-07-11 Nurse Nurse, [facility] 1.2.840.114 [id number] [facility] 11:05:31 11:22:46 Visit Jonathan Tanner 350.1. 13.10 [place] [phone] [facility] 044 [facility] 2019-07-11 2019-07-11 Outpatient Nagi SWANSON [facility] SLADE [id number] Univers 06:04:00 10:51:00 YARED kinney of [facility] 2019-07-07 2019-07-07 Orders Doctor YARED 1.2.840.114 [id number] Univers 00:00:00 00:00:00 Only Unassigned, PENELOPE 350.1.13.10 ity of [facility] 4.2.7.2.686 Ernst as [phone] [facility] [address] [place] 2019-03-27 2019-03-27 [facility]phone [facility] 1.2.840.114 [id number] Univers 00:00:00 00:00:00 Jonathan Rosen 350.1.13.10 [place] [phone] [facility] 231 [facility] 2019-03-26 2019-03-26 [facility] 1.2.037.841 [id number] Univers 07:46:02 23:59:00 Encounter Jaqueline Rosen 350.1.13.10 [place] [phone] [facility] [address] [place] 2019-03-20 2019-03-20 [facility] 1.2.840.114 [id number] Univers 00:00:00 00:00:00 Jonathan Rosen 350.1.13.10 [place] [phone] Ar florentin sexton 231 [facility] 2019-03-19 2019-03-19 Case [facility] 1.2.840.114 [id number] Univers 00:00:00 00:00:00 Management Hamza Merza SPECIALTY 350.1.13.10 [place] [phone] Ar florentin HANSON [address] [place] [address] 2019-03-18 2019-03-18 [facility] 1.2.840.114 [id number] Univers 10:43:46 12:43:33 Visit Alex Rosen 350.1.13.10 [place] [phone] Ar florentin sexton 044 [facility] 2019-03-14 2019-03-14 Telephone [facility] 1.2.840.114 [id number] Univers 00:00:00 00:00:00 Hamza Merza SPECIALTY 350.1.13.10 [place] [phone] Ar florentin HANSON [address] [place] [address] 2019-03-12 2019-03-12 Telephone [facility] 1.2.840.114 [id number] Univers 00:00:00 00:00:00 Hamza Merza SPECIALTY 350.1.13.10 [place] [phone] Ar florentin HANSON [address] [place] [address] 2019-03-12 2019-03-12 Telephone [facility] 1.2.253.020 [id number] Univers 00:00:00 00:00:00 Argelia Rosen 350.1.13.10 [place] [phone] Ar florentin sexton 220 [facility] 2019-03-11 2019-03-11 Office Jorge [facility] 1.2.840.114 [id number] Univers 14:59:32 15:55:40 Visit Nelly Rosen 350.1.13.10 [place] [phone] Ar dical nal 059 [facility] 2019-03-06 2019-03-06 Edm Operator 2, Adc Lab [facility] 1.2.840.114 [id number] Univers 14:02:12 14:17:12 Visit Dilma Navarro 350.1.13 .10 [place] [phone] Ar dical nal 353 [facility] 2019-03-06 2019-03-06 Office ShahramMikie [facility] 1.2.840.114 [id number] [facility] 13:20:47 13:55:14 Visit Macy Rosen 350.1.13.10 [place] [phone] Ar dical nal 044 [facility] 2019-03-06 2019-03-06 Telephone [facility] 1.2.840.114 [id number] Univers 00:00:00 00:00:00 Jonathan Rosen 350.1.13.10 [place] [phone] [facility] nal 044 [facility] 2019-03-06 2019-03-06 Telephone [facility] 1.2.207.261 [id number] Univers 00:00:00 00:00:00 Argelia Rosen 350.1.13.10 i [place] [phone] [facility] 220 [facility] 2019-03-05 2019-03-05 Case Marc, [facility] 1.2.840.114 [id number] Univers 00:00:00 00:00:00 Management Catina QUACH 350.1.13.10 it[place] [phone] Ar florentin Dillon[address] [place] [address] 2019-03-05 2019-03-05 [facility] 1.2.840.114 [id number] Univers 00:00:00 00:00:00 Hamza Merza SPECIALTY 350.1.13.10 it[place] of [place] [phone] Ar florentin HANSON [address] [place] [address] 2019-03-04 2019-03-04 [facility]phone [facility] 1.2.840.114 [id number] Univers 00:00:00 00:00:00 Jonathan Rosen 350.1.13.10 [place] [phone] Ar florentin Herndon [facility] 2019-03-03 2019-03-03 [facility] 1.2.840.114 [id number] Univers 00:00:00 00:00:00 Catina Marie SPECIALTY 350.1.13.10 it[place] [phone] Ar florentin HANSON [address] [place] [address] 2019-02-28 2019-02-28 Telephone [facility] 1.2.840.114 [id number] Univers 00:00:00 00:00:00 Catina Marie SPECIALTY 350.1.13.10 it[place] [phone] Ar florentin HANSON [address] [place] [address] 2019-02-28 2019-02-28 Orders Doctor YARED 1.2.840.114 [id number] Univers 00:00:00 00:00:00 Only Unassigned, PENELOPE 350.1.13.10 ity of [facility] 4.2.7.2.686 Ernst as [phone] [address] 2019-02-27 2019-02-27 Office Catina Tran [facility] 1.2.8 40.114 [id number] Univers 13:15:35 15:01:55 Visit Reshma Tran SPECIALTY 350.1.13 .10 it[place] of [place]2.[place] [phone] Ar florentin HANSON 072 [facility] 2019-02-18 2019-02-18 Telephone [facility] 1.2.840.114 [id number] Univers 00:00:00 00:00:00 Jonathan Rosen 350.1.13.10 [place] [phone] Ar florentin sexton 231 [facility] 2019-02-18 2019-02-18 [facility] 1.2.840.114 [id number] Univers 00:00:00 00:00:00 Jonathan Rosen 350.1.13.10 [place] [phone] Ar florentin sexton 044 [facility] 2019-02-11 2019-02-11 [facility]phone [facility] 1.2.840.114 [id number] Univers 00:00:00 00:00:00 Jonathan Rosen 350.1.13.10 [place] [phone] Ar eliseo[address] 2019 2019 Office Flores [facility] 1.2.840.114 [id number] Univers 07:55:53 09:28:03 Visit Jonathan Rosen 350.1.13.10 [place] [phone] Ar eliseo[address] 2019 2019 Orders Doctor YARED 1.2.840.114 [id number] Univers 00:00:00 00:00:00 Only Unassigned, PENELOPE 350.1.13.10 ity of [facility] 4.2.7.2.686 Ernst as [phone] [address] 2019-02-03 2019-02-03 Telephone Tanner, [facility] 1.2.840.114 [id number] Univers 00:00:00 00:00:00 Jonathanling Rosen 350.1.13.10 [place] [phone] Ar florentin Herndon [facility] 2019-01-31 2019-01-31 Telephone Marc NJDERRELL 1.2.840.114 [id number] Univers 00:00:00 00:00:00 Hamza Merza SPECIALTY 350.1.13.10 it[place]2.[place] [phone] Ar florentin HANSON [address] [place] [address] 2019-01-22 2019-01-22 Orders Doctor YARED 1.2.840.114 [id number] Univers 00:00:00 00:00:00 Only Unassigned, PENELOPE 350.1.13.10 ity of [facility] 4.2.7.2.686 Ernst as [phone] [address] 2019-01-10 2019-01-10 Patient Doctor [facility] 1.2.840.114 [id number] Univers 00:00:00 00:00:00 Secure Msg Unassigned, SPECIALTY 350.1.13.10 ity of [place] [facility] 4[place]2.7.2.[place] [phone] Ar eliseokarol HANSON [address] [place] [address] 2019-01-07 2019-01-07 Orders Doctor YARED 1.2.840.114 [id number] Univers 00:00:00 00:00:00 Only Unassigned, PENELOPE 350.1.13.10 ity of [facility] 4.2.7.2.686 Ernst as [phone] [address] 2018-12-23 2018-12-23 Orders Doctor YARED 1.2.840.114 [id number] Univers 00:00:00 00:00:00 Only Unassigned, PENELOPE 350.1.13.10 ity of [facility] 4.2.7.2.686 Ernst as [phone] [address] 2018-09-13 2018-09-13 Outpatient IVAN Ceja [id number] [facility] 09:30:00 09:30:00 [facility] 2013-03-13 2013-03-13 Emergency [facility] [id number] [place] 12:36:00 15:09:00 SHERITA -[id number] Critical access hospital 2012-12-05 2012-12-05 Outpatient GILLES GONZALEZ [facility] [id number] Univers 08:00:00 09:13:[facility] 2011-09-07 Outpatient DYLAN CHAIREZ, [facility] [id number] [address] [place] 15:06:00 15:06:00 CORWIN -[id number] Critical access hospital 2011-03-27 2011-03-27 Outpatient NIA CALDERON, [facility] [id number] [address] [place] 09:01:00 09:01:00 BRET -[id number] Critical access hospital Results Test Description Test Time Test Comments Results Result Comments Source Magnesium 2023-02-21 09:01:39 Test Item Value Reference Range Interpretation Comme nts MAGNESIUM (test code = 4594349075) 2.1 mg/dL 1.7-2.4 Lab Interpretation (test code = 27772-5) Normal [facility] 09:01:39 Test Item Value Reference Range Interpretation Comments PHOSPHORUS (test code = 0168375972) 4.6 mg/dL 2.5-5.0 Lab Interpretation (test code = Normal 25515-1) [facility]2023-[facility]-15 09:41:53 Test Item Value Reference Range Interpretation Comments MAGNESIUM (test code = 7318476836) 2.2 mg/dL 1.7-2.4 Lab Interpretation (test code = Normal 13526-0) [facility]2023-08-15 09:41:53 Test Item Value Reference Range Interpretation Comments PHOSPHORUS (test code = 6058475038) 4.7 mg/dL 2.5-5.0 Lab Interpretation (test code = Normal 52258-1) [facility] WITH [id number] 16:55:24 Test Item Value Reference Range Interpretation Comments WBC (test code = 11.61 See_Comment H [Automated 8990-2) message] The sy stem which generated this result transmitted reference range : 4.30 - 11.10 10*3/?L. The reference range was not used to interpret this result as normal/abnormal . RBC (test code = 4.14 See_Comment [Automated 789-8) message] The sy stem which generated this result transmitted reference range : 3.93 - 5.25 10*6/?L. The reference range was not used to interpret this result as normal/abnormal . HGB (test code = 11.0 g/dL 11.6-15.0 L 718-7) HCT (test code = 34.5 % 35.7-45.2 L 4544-3) MCV (test code = 83.3 fL 80.6-95.5 787-2) MCH (test code = 26.6 pg 25.9-32.8 785-6) MCHC (test code = 31.9 g/dL 31.6-35.1 786-4) RDW-SD (test code = 47.0 fL 39.0-49.9 73865-1) RDW-CV (test code = 15.6 % 12.0-15.5 H 788-0) PLT (test code = 393 See_Comment H [Automated 777-3) message] The sy stem which generated this result transmitted reference range : 166 - 358 10*3/ ?L. The reference r jolynn was not used to interpret this result as normal/abnormal . MPV (test code = 10.8 fL 9.5-12.9 23369-8) NRBC/100 WBC (test 0.0 See_Comment [Automat ed code = 1031879374) message] The system which generated this result transmitted reference range : 0.0 - 10.0 /100 WBCs. The refer ence range was not u sed to interpret th is result as normal/abnormal . NRBC x10^3 (test code See_Comment [Auto mated = 4889861627) message] The s ystem which generated this result transmitted reference range : 10*3/?L. The reference range was not used to interpret this result as normal/abnormal . GRAN MAT (NEUT) % 59.4 % (test code = 770-8) IMM GRAN % (test code 0.40 % = 3077452875) LYMPH % (test code = 30.3 % 736-9) MONO % (test code = 7.8 % 5905-5) EOS % (test code = 1.7 % 713-8) BASO % (test code = 0.4 % 706-2) GRAN MAT x10^3(ANC) 6.88 10*3/uL 1.88-7.09 (test code = 8840637673) IMM GRAN x10^3 (test 0.05 10*3/uL 0.00-0.06 code = 1748846642) LYMPH x10^3 (test code 3.52 10*3/uL 1.32-3.29 H = 731-0) MONO x10^3 (test code 0.91 10*3/uL 0.33-0.92 = 742-7) EOS x10^3 (test code = 0.20 10*3/uL 0.03-0.39 711-2) BASO x10^3 (test code 0.05 10*3/uL 0.01-0.07 = 704-7) Lab Interpretation Abnormal (test code = 36264-0) [facility]-[id number] 16:22:41 Test Item Value Reference Interpretation Comments Range D-DIMER (test code = See_Comment [Autom ated 0572204161) message] The system which generated this result transmitted reference range : <0.41 ?g/mL (FEU). The reference range was not used to interpret this result as normal/abnormal . RAUDEL (test code = This test may be RAUDEL) used in conjunction with a clinical pretest probability (PTP) assessment model to exclude venous thromboembolism (VTE) in patients suspected of deep venous thrombosis (DVT) and pulmonary embolism (PE) A D-Dimer value less than 0.50 ?g/ml (FEU) has a negative predicative value of 96 to 100% (95% CI)and 97 to 100% (95% CI) as an aid in the diagnosis of deep vein thrombosis (DVT) and pulmonary embolism when there is low or moderate pretest probability of PE or DVT. D-Dimer values are expressed in initial fibrinogen equivalent units (FEU)" The assay results should be used with other information, including the clinical context, in forming a diagnosis. Lab Interpretation Normal (test code = 42223-5) [facility]ound[facility]IZED [id number] 04:24:46 Test Item Value Reference Range Interpretation Comments IONIZED CA (test code = 5.00 mg/dL 4.50-5.30 9831969855) PH SERUM (test code = 3627705735) 7.37 7.35-7.45 Lab Interpretation (test code = Normal 32235-9) [facility]oundFERRITIN [id number] 23:08:06 Test Item Value Reference Range Interpretation Comments FERRITIN (test code = 11.5 ng/mL 6.0-137.0 5475515042) RAUDEL (test code = RAUDEL) Biotin has been reported to cause a negative bias, interpret results relative to patient's use of biotin. Lab Interpretation (test Normal code = 32950-2) [facility] MoundTRIIODOTHYRONINE2023-07-06 23:05:30 Test Item Value Reference Range Interpretation Comments T3 (test code = 3096014323) 150.0 ng/dL 97.0-170.0 Lab Interpretation (test code = Normal 74586-2) [facility]oundTHYROID STIMULATING [id number] 23:03:49 Test Item Value Reference Range Interpretation Comments TSH (test code = 0.90 See_Comment [Automated message] 1721661167) The system BAUNAT generated this result transmitted ref erence range: 0.45 - 4 .70 mIU/L. The refe rence range was not u sed to interpret this result as normal/abnor mal. Lab Interpretation (test Normal code = 93882-2) [facility] [id number] 22:50:07 Test Item Value Reference Range Interpretation Comments FREE T4 (test code = 1.05 See_Comment [Autom ated message] 6246327453) The system BAUNAT generated this result transmitted ref erence range: 0.78 - 2 .20 ng/dL:. The ref erence range was not u sed to interpret this result as normal/abnor mal. Lab Interpretation (test Normal code = 96945-0) [facility] MoundIRON [id number] 22:39:42 Test Item Value Reference Range Interpretation Comments IRON (test code = 8000525997) 49 ug/dL 50-160 L TIBC (test code = 6834204145) 490 ug/dL 250-410 H % FE SAT (test code = 0632013114) 10 % 20-50 L Lab Interpretation (test code = Abnormal 49412-5) [facility] ACUTE CARE [id number] 14:22:33 Test Item Value Reference Range Interpretation Comments PH (test code = 2) 7.41 7.35-7.45 PCO2 (test code = 39 See_Comment [Automate d message] 3363093183) The system BAUNAT generated this result transmit ebenezer reference range : 35 - 45 mmHg. The reference range was not used to interpret this result as normal/abnormal . PO2 (test code = 248 See_Comment H [Automated message] 9838035925) The system BAUNAT generated this result transmit ebenezer reference range : 80 - 100 mmHg. The reference range was not used to interpret this result as normal/abnormal . BE (test code = 1.0 See_Comment [Automated message] 6596048738) The system BAUNAT generated this result transmit ebenezer reference range : -3.0 - 3.0 mEq/ L. The reference r jolynn was not used to interpret this result as normal/abnormal . HCO3 (test code = 25 See_Comment [Automate d message] 1088420185) The system BAUNAT generated this result transmit ebenezer reference range : 22 - 26 mEq/L. The reference range was not used to interpret this result as normal/abnormal . %O2HB (test code = 100.0 % 95.0-98.0 H 9734651335) NA (test code = 140 mmol/L 135-145 7489142269) K+ (test code = 3.8 mmol/L 3.5-5.0 3149615428) AC CA IONZ (test code = 4.90 mg/dL 4.50-5.30 6291678261) GLUCOSE (test code = 125 mg/dL 70-110 H 9549787909) AC Hematocrit (test 32 See_Comment L [Automa ebenezer message] code = 6719452890) The syste m which generated this result transmit ebenezer reference range : 40 - 54 VOL %. The reference range was not used to interpret this result as normal/abnormal . THB (test code = 10.9 g/dL 12.0-16.0 L 9824968819) AC TC02 (test code = 26 mmol/L See_Comment [Autom ated message] 7734952458) The system BAUNAT generated this result transmit ebenezer reference range : 23-27 mmol/L. T he reference range was not used to interpret this result as normal/abnormal . Lab Interpretation Abnormal (test code = 80753-9) [facility] ACUTE CARE [id number] 14:22:33 Test Item Value Reference Range Interpretation Comments PH (test code = 2) 7.41 7.35-7.45 PCO2 (test code = 39 See_Comment [Automate d message] 3333303247) The system [employer] generated this result transmit ebenezer reference range : 35 - 45 mmHg. The reference range was not used to interpret this result as normal/abnormal . PO2 (test code = 248 See_Comment H [Automated message] 1843485430) The system BAUNAT generated this result transmit ebenezer reference range : 80 - 100 mmHg. The reference range was not used to interpret this result as normal/abnormal . BE (test code = 1.0 See_Comment [Automated message] 3710220920) The system BAUNAT generated this result transmit ebenezer reference range : -3.0 - 3.0 mEq/ L. The reference r jolynn was not used to interpret this result as normal/abnormal . HCO3 (test code = 25 See_Comment [Automate d message] 1324484126) The system BAUNAT generated this result transmit ebenezer reference range : 22 - 26 mEq/L. The reference range was not used to interpret this result as normal/abnormal . %O2HB (test code = 100.0 % 95.0-98.0 H 4786399031) NA (test code = 140 mmol/L 135-145 5780449801) K+ (test code = 3.8 mmol/L 3.5-5.0 5207679189) AC CA IONZ (test code = 4.90 mg/dL 4.50-5.30 6434119800) GLUCOSE (test code = 125 mg/dL 70-110 H 3100010616) AC Hematocrit (test 32 See_Comment L [Automa ebenezer message] code = 5152413993) The syste m which generated this result transmit ebenezer reference range : 40 - 54 VOL %. The reference range was not used to interpret this result as normal/abnormal . THB (test code = 10.9 g/dL 12.0-16.0 L 1080394877) AC TC02 (test code = 26 mmol/L See_Comment [Autom ated message] 4724659954) The system BAUNAT generated this result transmit ebenezer reference range : 23-27 mmol/L. T he reference range was not used to interpret this result as normal/abnormal . Lab Interpretation Abnormal (test code = 24991-6) [facility] Confirm[facility] (Lab Only)2022-11-09 12:04:00 Test Item Value Reference Range Interpretation Comments ABO & RH (test code = 20) O Positive [facility] Confirmation (Lab Only)2022-11-09 12:04:00 Test Item Value Reference Range Interpretation Comments ABO & RH (test code = 20) O Positive [facility] - ONCE [id number] 11:25:00 Test Item Value Reference Range Interpretation Comments ABO & RH (test code = 20) O Positive IAT (test code = 1185) Negative [facility] Screen - ONCE [id number] 11:25:00 Test Item Value Reference Range Interpretation Comments ABO & RH (test code = 20) O Positive IAT (test code = 1185) Negative [facility]ound[facility]AT[facility] FUNCTION PANEL (73481) (ALB,T.PRO,BILI T,BU/BC,ALT,AST,ALK PHOS)2022-10-26 12:17:18 Test Item Value Reference Range Interpretation Comments TOTAL BILI (test code = 8474272461) 0.2 mg/dL 0.1-1.1 BILI UNCON (test code = 8299328557) 0.1 mg/dL 0.1-1.1 BILI CONJ (test code = 6128293970) 0.0 mg/dL 0.0-0.3 T PROTEIN (test code = 9924867952) 7.5 g/dL 6.3-8.2 ALBUMIN (test code = 5523492321) 4.3 g/dL 3.5-5.0 ALK PHOS (test code = 3023355873) 148 U/L 34-122 H ALTv (test code = 1742-6) 21 U/L 5-35 AST(SGOT) (test code = 6543181854) 29 U/L 13-40 Lab Interpretation (test code = Abnormal 43875-7) [facility] WITH [id number] 01:53:33 Test Item Value Reference Range Interpretation Comments WBC (test code = 12.54 See_Comment H [Automated 6690-2) message] The sy stem which generated this result transmitted reference range : 4.30 - 11.10 10*3/?L. The reference range was not used to interpret this result as normal/abnormal . RBC (test code = 4.16 See_Comment [Automated 789-8) message] The sy stem which generated this result transmitted reference range : 3.93 - 5.25 10*6/?L. The reference range was not used to interpret this result as normal/abnormal . HGB (test code = 10.9 g/dL 11.6-15.0 L 718-7) HCT (test code = 34.7 % 35.7-45.2 L 4544-3) MCV (test code = 83.4 fL 80.6-95.5 787-2) MCH (test code = 26.2 pg 25.9-32.8 785-6) MCHC (test code = 31.4 g/dL 31.6-35.1 L 786-4) RDW-SD (test code = 46.4 fL 39.0-49.9 79046-8) RDW-CV (test code = 15.2 % 12.0-15.5 788-0) PLT (test code = 387 See_Comment H [Automated 777-3) message] The sy stem which generated this result transmitted reference range : 166 - 358 10*3/ ?L. The reference r jolynn was not used to interpret this result as normal/abnormal . MPV (test code = 10.3 fL 9.5-12.9 17825-2) NRBC/100 WBC (test 0.0 See_Comment [Automat ed code = 8676406856) message] The system which generated this result transmitted reference range : 0.0 - 10.0 /100 WBCs. The refer ence range was not u sed to interpret th is result as normal/abnormal . NRBC x10^3 (test code See_Comment [Auto mated = 5431398610) message] The s ystem which generated this result transmitted reference range : 10*3/?L. The reference range was not used to interpret this result as normal/abnormal . SEG % (test code = 52 % 33-76 45973-3) LYMPH % (test code = 36 % 14-54 09775-8) REACT LYMPH % (test 7 % code = 3837845919) MONO % (test code = 3 % 0-4 29991-6) BASO % (test code = 2 % 0-1 H 35976-4) ANC (test code = 6.52 10*3/uL 1.88-7.09 753-4) GIANT PLATELETS (test Present See_Comment A [Auto mated code = 5908-9) message] The system which generated this result transmitted reference range : (none). The reference range was not used to interpret this result as normal/abnormal . Lab Interpretation Abnormal (test code = 61722-4) [facility] METABOLIC PANEL (NA, K, CL, CO2, GLUCOSE, BUN, CREATININE, CA)2022-10-26 01:24:47 Test Item Value Reference Range Interpretation Comments NA (test code = 138 mmol/L 135-145 0358658157) K (test code = 4.1 mmol/L 3.5-5.0 5856933333) CL (test code = 106 mmol/L 98-108 8813882727) CO2 TOTAL (test code 27 mmol/L 23-31 = 3253059734) AGAP (test code = 5 2-16 7587583824) BUN (test code = 15 mg/dL 7-23 8195724167) GLUCOSE (test code = 89 mg/dL 70-110 3067472112) CREATININE (test code 0.59 mg/dL 0.50-1.04 = 0554663935) CALCIUM (test code = 9.2 mg/dL 8.6-10.6 0153699851) eGFR (test code = 112.9 mL/min/1.73m2 2288053772) RAUDEL (test code = RAUDEL) Association of Glomerular Filtration Rate (GFR) and Staging of Kidney Disease* + + +- +| GFR (mL/min/1.73 m2) ?| With Kidney Damage ?| ?Without Kidney Damage+ ------+ ----+ ------+| ?>90 ?| ?Stage one ?| ? Normal ?+ -+ + -+| ?60-89 ?| ?Stage two ?| ? Decreased GFR ? + + +- +| ?30-59 ?| ?Stage three ?| ? Stage three ? + + +- +| ?15-29 ?| ?Stage four ? | ? Stage four ?+ -+ + -+| ?<15 (or dialysis) ? ?| ?Stage five ? | ? Stage five ?+ -+ + -+ *Each stage assumes the associated GFR level [...] or urine or abnormalities in imaging tests). [facility] [id number] 21:00:44 Test Item Value Reference Range Interpretation Comments POCT Creatinine (test code = 0.6 mg/dL 0.5-1.8 5423016926) Lab Interpretation (test code = Normal 79132-9) [id number] 01:39:39 Test Item Value Reference Range Interpretation Comments TROPONIN I (test code = 0.015 ng/mL <=0.034 1468069452) RAUDEL (test code = RAUDEL) Reference (Normal) [...] biotin. Lab Interpretation Normal (test code = 49275-1) [facility] [id number] 22:19:13 Test Item Value Reference Range Interpretation Comments TROPONIN I (test code = 0.002 ng/mL <=0.034 6281237280) RAUDEL (test code = RAUDEL) Reference (Normal) [...] biotin. Lab Interpretation Normal (test code = 96844-2) [facility]. METABOLIC PANEL ([id number])2022-08-08 22:08:53 Test Item Value Reference Range Interpretation Comments NA (test code = 133 mmol/L 135-145 L 2434073825) K (test code = 4.3 mmol/L 3.5-5.0 7184138663) CL (test code = 98 mmol/L 98-108 0266930300) CO2 TOTAL (test code = 25 mmol/L 23-31 8434928395) AGAP (test code = 10 2-16 8086723062) BUN (test code = 16 mg/dL 7-23 2107419045) GLUCOSE (test code = 91 mg/dL 70-110 9202567849) CREATININE (test code = 0.74 mg/dL 0.50-1.04 8928640307) TOTAL BILI (test code = 0.5 mg/dL 0.1-1.7 0848612919) CALCIUM (test code = 9.2 mg/dL 8.6-10.6 7664633113) T PROTEIN (test code = 7.7 g/dL 6.3-8.2 1665829774) ALBUMIN (test code = 4.5 g/dL 3.5-5.0 9366851803) ALK PHOS (test code = 161 U/L 34-122 H 1629628032) ALTv (test code = 31 U/L 5-35 1742-6) AST(SGOT) (test code = 29 U/L 13-40 1003311941) eGFR (test code = 86.9 mL/min/1.73m2 8258082844) RAUDEL (test code = RAUDEL) Association of [...] tests). Lab Interpretation Abnormal (test code = 40977-8) [facility] 22:08:12 Test Item Value Reference Range Interpretation Comments LIPASE (test code = 1347765144) 50 U/L 0-220 Lab Interpretation (test code = Normal 19872-5) [facility] WITH [id number] 21:56:08 Test Item Value Reference Range Interpretation Comments WBC (test code = 14.31 See_Comment H [Automated 9490-2) message] The system which generated this result transmit ebenezer reference range : 4.30 - 11.10 10*3/?L. The reference range was not used to interpret this result as normal/abnormal . RBC (test code = 4.48 See_Comment [Automated 789-8) message] The system which generated this result [...] RDW-SD (test code = 45.5 fL 39.0-49.9 53972-9) RDW-CV (test code = 15.2 % 12.0-15.5 788-0) PLT (test code = 386 See_Comment H [Automated 777-3) message] The system which generated this result transmit ebenezer reference range : 166 - 358 10*3/ ?L. The reference range was not u sed to interpret th is result as normal/abnormal . MPV (test code = 10.0 fL 9.5-12.9 14050-1) NRBC/100 WBC (test 0.0 See_Comment [Automat ed code = 5777586734) message] The system which generated this result transmit ebenezer reference range : 0.0 - 10.0 /100 WBCs. The reference range was not used to interpret this result as normal/abnormal . NRBC x10^3 (test code See_Comment [Auto mated = 8357446241) message] The system which generated this result transmit ebenezer reference range : 10*3/?L. The reference range was not used to interpret this result as normal/abnormal . GRAN MAT (NEUT) % 80.4 % (test code = 770-8) IMM GRAN % (test code 0.60 % = 7750125026) LYMPH % (test code = 11.5 % 736-9) MONO % (test code = 6.8 % 5905-5) EOS % (test code = 0.3 % 713-8) BASO % (test code = 0.4 % 706-2) GRAN MAT x10^3(ANC) 11.49 10*3/uL 1.88-7.09 H (test code = 5023962837) IMM GRAN x10^3 (test 0.09 10*3/uL 0.00-0.06 H code = 7027901197) LYMPH x10^3 (test code 1.65 10*3/uL 1.32-3.29 = 731-0) MONO x10^3 (test code 0.98 10*3/uL 0.33-0.92 H = 742-7) EOS x10^3 (test code = 0.04 10*3/uL 0.03-0.39 711-2) BASO x10^3 (test code 0.06 10*3/uL 0.01-0.07 = 704-7) Lab Interpretation Abnormal (test code = 76823-9) [facility]20[facility]-30 17:38:57 Test Item Value Reference Range Interpretation Comments MAGNESIUM (test code = 8437488020) 2.0 mg/dL 1.7-2.4 Lab Interpretation (test code = Normal 33163-5) [facility] METABOLIC PANEL ([id number])2022-04-07 17:38:36 Test Item Value Reference Range Interpretation Comments NA (test code = 142 mmol/L 135-145 7313681669) K (test code = 4.1 mmol/L 3.5-5 0868078697) CL (test code = 104 mmol/L 98-108 4889405508) CO2 TOTAL (test code = 29 mmol/L 23-31 3677335252) AGAP (test code = 2-16 6217092229) BUN (test code = 9 mg/dL 7-23 0779778580) GLUCOSE (test code = 90 mg/dL 70-110 2700499514) CREATININE (test code = 0.64 mg/dL 0.5-1.04 4350261517) TOTAL BILI (test code = 0.3 mg/dL 0.1-1.7 2632158792) CALCIUM (test code = 9.6 mg/dL 8.6-10.6 0199050088) T PROTEIN (test code = 7.2 g/dL 6.3-8.2 4476532780) ALBUMIN (test code = 4.3 g/dL 3.5-5 4991772035) ALK PHOS (test code = 135 U/L 34-122 H 5678813411) ALTv (test code = 18 U/L 5-35 1742-6) AST(SGOT) (test code = 22 U/L 13-40 4172892480) eGFR (test code = mL/min/1.73m2 6157029727) RAUDEL (test code = RAUDEL) Association of [...] tests). Lab Interpretation Abnormal (test code = 42144-5) [facility]2022-09-30 17:38:20 Test Item Value Reference Range Interpretation Comments PHOSPHORUS (test code = 1140180941) 4.5 mg/dL 2.5-5 Lab Interpretation (test code = Normal 15833-0) [facility]2022-09-30 17:38:20 Test Item Value Reference Range Interpretation Comments TRIG (test code = 6459920828) 245 mg/dL 30-170 H Lab Interpretation (test code = Abnormal 93567-9) [facility] WITH [id number] 16:58:16 Test Item Value Reference Range Interpretation [...] RDW-SD (test code = 43.8 fL 39-49.9 62299-4) RDW-CV (test code = 14.1 % 12-15.5 788-0) PLT (test code = See_Comment [Automated 777-3) message] The sy stem which generated this result transmitted reference range : 166 - 358 10*3/ ?L. The reference r jolynn was not used to interpret this result as normal/abnormal . MPV (test code = 10.6 fL 9.5-12.9 08434-6) NRBC/100 WBC (test See_Comment [Automat ed code = 7782945850) message] The system which generated this result transmitted reference range : 0.0 - 10.0 /100 WBCs. The refer ence range was not u sed to interpret th is result as normal/abnormal . NRBC x10^3 (test code See_Comment [Auto mated = 2767557822) message] The s ysteDruva which generated this result transmitted reference range : 10*3/?L. The reference range was not used to interpret this result as normal/abnormal . GRAN MAT (NEUT) % 59.6 % (test code = 770-8) IMM GRAN % (test code 0.30 % = 9414265425) LYMPH % (test code = 28.7 % 736-9) MONO % (test code = 8.2 % 5905-5) EOS % (test code = 2.5 % 713-8) BASO % (test code = 0.7 % 706-2) GRAN MAT x10^3(ANC) 7.20 10*3/uL 1.88-7.09 H (test code = 5921379798) IMM GRAN x10^3 (test 0.04 10*3/uL 0-0.06 code = 8130265342) LYMPH x10^3 (test code 3.47 10*3/uL 1.32-3.29 H = 731-0) MONO x10^3 (test code 0.99 10*3/uL 0.33-0.92 H = 742-7) EOS x10^3 (test code = 0.30 10*3/uL 0.03-0.39 711-2) BASO x10^3 (test code 0.08 10*3/uL 0.01-0.07 H = 704-7) Lab Interpretation Abnormal (test code = 46498-9) [facility] METABOLIC PANEL ([id number])2022-03-31 18:31:14 Test Item Value Reference Range Interpretation Comments NA (test code = 141 mmol/L 135-145 2847361549) K (test code = 4.4 mmol/L 3.5-5 0432912253) CL (test code = 104 mmol/L 98-108 9844809175) CO2 TOTAL (test code = 27 mmol/L - 9308001924) AGAP (test code = 2-16 1858943128) BUN (test code = 15 mg/dL 7-23 1000218395) GLUCOSE (test code = 86 mg/dL 70-110 6495939954)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
[2023-03-25 22:17] LABS: Hematocrit 32.9 % (36.0-45.0); Lymphocytes % 28.6 % (15.3-44.8); MCV 80.9 fL (80-100); MPV 8.4 fL (7.6-11.3); Platelets 309 thou/uL (152-406); RBC Red Blood Cell Count 4.07 M/uL (3.86-4.86)
[2023-03-25 22:27] LABS: Potassium 3.6 mEq/L (3.5-5.1)
[2023-03-25 22:39] LABS: Specific Gravity 1.011 (1.005-1.030); Urine Bilirubin NEGATIVE (Negative); Urine Blood Negative (Negative); Urine Clarity Clear (Clear); Urine Color Colorless (Yellow); Urine Glucose NEGATIVE (Negative); Urine Protein NEGATIVE (Negative); Urine Urobilinogen Normal (Normal); Urine pH 5.5 (5.0-7.0)
[2023-03-25 22:43] LABS: Specific Gravity 1.011 (1.005-1.030)
[2023-03-25] MEDS ORDERED: PROMETHAZINE INJ 25 MG/ML AMP ONE (22:52)
[2023-03-25] MEDS ORDERED: FENTANYL CITR 100 MCG/2 ML ONE (22:53)
[2023-03-25] MEDS ORDERED: NA CHLORIDE 0.9% 100 ML ONE (22:56)
[2023-03-26] MEDS ORDERED: FENTANYL CITR 100 MCG/2 ML ONE (00:54)
[2023-03-26] MEDS ORDERED: LIDOCAINE 1% MPF 5 ML VIAL ONE (01:29)
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
[2023-03-26] MEDS ORDERED: CYCLOBENZAPRINE 10 MG TAB ONE (02:00)
[2023-03-26] MEDS ORDERED: HYDROCODONE/APAP 7.5/325 MG TAB ONE (02:01)
[2023-03-26] MEDS ORDERED: HEPARIN 500 UNIT/5 ML SYR IV ONE (02:02)
[2023-03-26 03:03] VITALS: BP 148/104; TEMP 98.8; O2SAT 100
--- NOTE | 2023-03-26 14:39 | RAD REPORT ---
EXAM DESCRIPTION: CT - Head C Spine Cap Natalie Lambert - 03/26/2023 7:00 am CLINICAL HISTORY: Fall COMPARISON: None. TECHNIQUE: CT HEAD C-SPINE WITHOUT CHEST ABDOMEN PELVIS WITH IV CONTRAST on 03/25/2023 9:02 PM CDT This exam was performed according to our departmental dose-optimization program, which includes autom ated exposure control, adjustment of the mA and/or kV according to patient size and/or use of iterati ve reconstruction technique. FINDINGS: Brain: There is no acute hemorrhage, mass effect or midline shift. Hinton-white differentiat ion is preserved. There is no hydrocephalus. There is no significant volume loss for age. The calvarium is intact. Orbits and globes are unremarkable. The paranasal sinuses are clear. Mastoid air cells are clear. Cervical Spine: There is no acute fracture. Alignment is anatomic. Disc spaces are maintained. Vertebral body heights are preserved. Soft tissues are unremarkable. Vascular: Thoracic aorta is normal in course and caliber without aneurysm or dissection. Pulmonary ar teries are adequately opacified without acute or chronic filling defects. Abdominal aorta is normal i n course and caliber without aneurysm. Pelvic arteries are patent without aneurysm or occlusion. Chest: The heart is normal in size. There is no pericardial effusion. Intrathoracic lymph nodes are n ot enlarged. Left chest port is in place. There is no pleural effusion, pleural thickening or pneumothorax. Central airways are patent. Lungs a re clear with no consolidation, mass or interstitial lung disease. Abdomen: The liver is normal in appearance. There is no biliary dilatation. Cholecystectomy was perfo rmed. The pancreas and spleen are normal in appearance. The adrenal glands and kidneys are unremarkab le. There is no free air. There is no retroperitoneal adenopathy. Pelvis: There is no bowel obstruction. Urinary bladder is unremarkable. There is no free fluid. Hys terectomy was performed. Appendix is normal. Skeleton: There are no acute osseous findings. No suspicious bony lesions. There is anterior fusion o f the C6-7 disc. IMPRESSION: No definite acute posttraumatic findings. Electronically signed by: Samir Del Castillo MD 03/25/2023 11:31 PM CDT Due to temporary technical issues with the PACS/Fluency reporting system, reports are being signed by the in house radiologist without review as a courtesy to ensure prompt reporting. The interpreting r adiologist is fully responsible for the content of the report.
== END 2023-03-26 02:03 | disposition home or self-care (01) ==
LOC: ER 20:26
PROC: 0HQ0XZZ Repair Scalp Skin, External Approach (ICD-10-PCS; principal; 2023-03-26)
DX: S01.01XA Laceration without foreign body of scalp, initial encounter (principal); M54.9 Dorsalgia, unspecified; M54.2 Cervicalgia; Z88.2 Allergy status to sulfonamides; Z88.5 Allergy status to narcotic agent; Z88.8 Allergy status to other drugs, medicaments and biological substances; Z91.040 Latex allergy status; Z91.048 Other nonmedicinal substance allergy status
CPT/HCPCS: 85025; 80048; 36415; 86900; 86850; 81025; 86901; 81003; 70450; 72125; 71260; 74177; 12002; Q9967; J2550; J2001; J3010 ×2; J1642

== ENCOUNTER 2024-08-01 06:53 | Emergency (ER) | payer OTHER ==
--- OUTSIDE RECORDS SUMMARY | 2024-08-01 06:57 | XMS REPORT | Clinical Summary ---
Author Name Unknown Organization [facility] Address [address] [place] [address] Care Team Providers Care Axle Turner Name Role Phone Rabia Tanner MD Unavailable Social History Tobacco Use Types Packs/Day Years Used Date Smoking Tobacco: Never Assessed Comments Unknown Sex and Gender Information Value Date Recorded Sex Assigned at Not on file Legal Sex Female 3:49 PM CDT Gender Identity Not on file Sexual Orientation Not on file Plan of Treatment Not on file Insurance [facility] MEDICAID [employer] MEDICAID [place] MEDICAID [employer] Care Teams Axle Turner Relationship Specialty Start Date End Date Rabia Tanner MD [email or web address] PCP - External Referring Internal Medicine 03/25/18
[2024-08-01] MEDS ORDERED: NA CHLORIDE 0.9% 1,000 ML ONE (08:08)
[2024-08-01 08:37] LABS: Absolute Basophils 0.1 K/uL (0-0.5); Absolute Eosinophils 0.2 K/uL (0-0.5); Absolute Monocytes 0.6 K/uL (0.1-1.3); Absolute Neutrophil 5.1 K/uL (1.8-8.0); Basophils % 0.6 % (0-1.3); Eosinophils % 2.1 % (0-4.4); Hematocrit 31.1 % (36.0-45.0); Hemoglobin 10.3 g/dL (12.0-15.0); Lymphocytes % 25.4 % (15.3-44.8); MCH 26.9 pg (27.0-35.0); MCHC 33.2 g/dL (32.0-36.0); MCV 80.9 fL (80-100); MPV 8.5 fL (7.6-11.3); Monocytes % 7.7 % (3.3-12.3); Neutrophils % 64.2 % (41.7-73.7); Nucleated Red Blood Cells % 0.1 % (0-0); Platelets 286 thou/uL (152-406); RBC Red Blood Cell Count 3.84 M/uL (3.86-4.86)
[2024-08-01 08:59] LABS: PT Prothrombin Time 12.3 SECONDS (9.4-12.5); PTT, Activated Partial Thromb 30.4 SECONDS (24.3-36.9); Protime INR 1.17
[2024-08-01 09:01] LABS: Albumin 3.1 g/dL (3.4-5.0); Albumin/Globulin Ratio 0.8 (1.1-1.8); Anion Gap 9.1 mEq/L (5.0-15.0); Bilirubin Total 0.3 mg/dL (0.2-1.0); Globulin 3.9 g/dL (2.3-3.5); Potassium 3.1 mEq/L (3.5-5.1); Troponin High Sensitivity 5.5 pg/mL (<58.9)
[2024-08-01] MEDS ORDERED: PROMETHAZINE INJ 25 MG/ML AMP ONE (10:15)
[2024-08-01 10:35] LABS: Specific Gravity 1.018 (1.005-1.030); Sqamous Epithelial <5 /HPF (None Seen); Transitional Epithelial <5 /HPF (None Seen); Urine Bacteria None Seen /HPF (<20); Urine Bilirubin NEGATIVE (Negative); Urine Blood 2+ (Negative); Urine Clarity Extremely Turbid (Clear); Urine Color Light-Yellow (Yellow); Urine Culture Reflex Order REFLEXED; Urine Glucose NEGATIVE (Negative); Urine Ketones TRACE (Negative); Urine Microscopic Reflex YN ORDER UMIC; Urine Mucus 1+ /HPF (None Seen); Urine Nitrite NEGATIVE (Negative); Urine Protein TRACE (Negative); Urine RBC >50 /HPF (None Seen); Urine Urobilinogen Normal (Normal); Urine WBC >50 /HPF (<5); Urine pH 6.5 (5.0-7.0)
--- NOTE | 2024-08-01 11:10 | ER ---
Nurse's Notes [facility] Name: Madison Anand Age: 44 yrs Sex: Female : 1980 Arrival Date: 08/01/2024 Time: 06:53 Bed 4 Private MD: Diagnosis: UTI/ Urinary tract infection, site not specified Presentation: 08/01 07:08 Chief complaint: Patient states: she has been having headache, chills, vomiting for ap3 three days, and then patient states she started having painful urination that started this morning. patient currently rates her pain as a 6/10 on the pain scale. Coronavirus screen: At this time, the client does not indicate any symptoms associated with coronavirus-19. Ebola Screen: No symptoms or risks identified at this time. Initial Sepsis Screen: Does the patient meet any 2 criteria? No. Patient's initial sepsis screen is negative. Does the patient have a suspected source of infection? No. Patient's initial sepsis screen is negative. Risk Assessment: Do you want to hurt yourself or someone else? Patient reports no desire to harm self or others. Onset of symptoms was July 29, 2024. 07:08 Method Of Arrival: Ambulatory ap3 07:08 Acuity: ESTELA 3 ap3 Triage Assessment: 07:13 General: Appears in no apparent distress. Behavior is calm, cooperative, appropriate ap3 for age. Pain: Complains of pain in abdomen. Neuro: Level of Consciousness is awake, alert, obeys commands, Oriented to person, place, time, situation, Appropriate for age. Cardiovascular: Patient's skin is warm and dry. Respiratory: Airway is patent Respiratory effort is even, unlabored, Respiratory pattern is regular, symmetrical. GI: Reports lower abdominal pain, nausea, vomiting. : Reports burning with urination. 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 LMP N/A - Hysterectomy, Not ap3 Historical: - Allergies: 07:10 Butrans; ap3 07:10 Codeine; ap3 07:10 Latex; ap3 07:10 Metoclopramide; ap3 07:10 Reglan; ap3 07:10 Sulfa (Sulfonamide Antibiotics); ap3 07:10 Tegaderm AG Mesh; ap3 07:10 Topamax; ap3 07:10 Trokendi XR; ap3 07:10 Zofran; ap3 - Home Meds: 07:11 TPN Electrolytes intravenous [Active]; ap3 - PMHx: 07:10 diabetes mellitus; dysautonima; Fibromyalgia; Hypercholesterolemia; Hypothyroidism; ap3 insomnia; intercranial hypertension; metabolic syndrome; Migraines; Obesity; palpitations; prurigo nodularis; restless legs; Tachycardia; TIA; - PSHx: 07:11 hysterectomy; Cholecystectomy; D\T\C; stomach removal june 2024; ap3 - Immunization history:: Client reports having NOT received the Covid vaccine. Flu vaccine is not up to date. - Infectious Disease History:: Denies. - Social history:: Smoking status: Patient denies any tobacco usage or history of. - Family history:: not pertinent. Screenin:14 Abuse screen: Denies threats or abuse. Tuberculosis screening: No symptoms or risk ap3 factors identified. 08:26 [facility] ED Fall Risk Assessment (Adult) History of falling in the last 3 months, db including since admission No falls in past 3 months (0 pts) Confusion or Disorientation No (0 pts) Intoxicated or Sedated No (0 pts) Impaired Gait No (0 pts) Mobility Assist Device Used No (0 pt) Altered Elimination No (0 pt) Score/Fall Risk Level 0 - 2 = Low Risk Oriented to surroundings, Maintained a safe environment. Nutritional screening: No deficits noted. Assessment: 08:30 Reassessment: Patient appears in no apparent distress at this time. Patient and/or db family updated on plan of care and expected duration. Pain level reassessed. Patient is alert, oriented x 3, equal unlabored respirations, skin warm/dry/pink. 08:32 Reassessment: CALLED PHLEBOTOMY FOR 2ND BLOOD CULTURE. db 11:00 Reassessment: Patient appears in no apparent distress at this time. Patient and/or db family updated on plan of care and expected duration. Pain level reassessed. Patient is alert, oriented x 3, equal unlabored respirations, skin warm/dry/pink. General: Appears in no apparent distress. comfortable, Behavior is calm, cooperative. Neuro: Level of Consciousness is awake, alert, obeys commands, Oriented to person, place, time, situation. GI: Reports nausea. 11:29 Reassessment: Patient appears in no apparent distress at this time. Patient and/or db family updated on plan of care and expected duration. Pain level reassessed. Patient is alert, oriented x 3, equal unlabored respirations, skin warm/dry/pink. Patient states feeling better. Patient states symptoms have improved. GI: Abdomen is non-distended. Vital Signs: 07:08 BP 139 / 89; Pulse 74; Resp 17; Temp 98.2(O); Pulse Ox 100% on R/A; Weight 85.28 kg; ap3 Height 5 ft. 3 in. ; Pain 6/10; 08:15 BP 141 / 97; Pulse 67; Resp 19; Pulse Ox 100% on R/A; db 09:54 BP 132 / 90; Pulse 57; Resp 15; Pulse Ox 100% ; ko1 10:30 BP 140 / 93; Pulse 60; Resp 14; Pulse Ox 100% on R/A; db 11:00 BP 133 / 92; Pulse 75; Resp 16; Pulse Ox 100% on R/A; db 07:08 Body Mass Index 33.30 (85.28 kg, 160.02 cm) ap3 07:08 Pain Scale: Adult ap3 ED Course: 06:58 Patient arrived in ED. gm2 07:04 Alexander Tatum MD is Attending Physician. rt 07:10 Triage completed. ap3 07:15 Arm band placed on right wrist. ap3 08:11 Yue Goncalves, RN is Primary Nurse. db 08:26 Accessed Medi-Port. Good blood return. Flushes easily. db 08:26 Initial lab(s) drawn, by me, sent to lab. First set of blood cultures drawn. db 08:32 Patient has correct armband on for positive identification. Bed in low position. Call db light in reach. Side rails up X 1. Client placed on continuous cardiac and pulse oximetry monitoring. NIBP monitoring applied. lead software qa engineer on. Pulse ox on. NIBP on. Pillow given. 10:13 Urine collected:. db 11:29 Provided Education on: PRESCRIPTIONS, DISCHARGE. db 11:29 No provider procedures requiring assistance completed. db Administered Medications: 08:26 Drug: NS 0.9% IV 1000 ml IV at 1 bolus Per protocol; to be given as a bolus over 60 db minutes Route: IV; Rate: 1 bolus; Site: Port-a-cath; 10:00 Follow up: Response: No adverse reaction; IV Status: Completed infusion; IV Intake: db 1000ml 10:15 Drug: Promethazine IVP 12.5 mg IVP once Route: IVP; Site: Port-a-cath; db 11:30 Follow up: Response: No adverse reaction db Medication: 08:34 VIS not applicable for this client. db Intake: 10:00 IV: 1000ml; Total: 1000ml. db Outcome: 11:10 Discharge ordered by . rt 11:29 Discharged to home ambulatory, db 11:29 Condition: stable 11:29 Discharge instructions given to patient, Instructed on discharge instructions, follow up and referral plans. Prescriptions given X 2, 11:31 Patient left the ED. db Signatures: Iesha Jones RN RN ap3 Gaby Koroma RN RN ko1 uYe Goncalves RN RN db Alexander Tatum MD MD rt Jaleesa Rothman gm2
--- NOTE | 2024-08-01 11:10 | EDPHYS ---
Physician Documentation [facility] Name: Madison Anand Age: 44 yrs Sex: Female : 1980 Arrival Date: 08/01/2024 Time: 06:53 Bed 4 Private MD: ED Physician Alexander Tatum HPI: 08/01 07:42 This 44 yrs old Female presents to ER via Ambulatory with complaints of Pain With rt Urination, Vomiting. 07:42 Patient had a recent gastrectomy for gastroparesis and she is currently on TPN via rt subclavian line. The patient reports having a lower abdominal pain and burning with urination. Patient reports fatigue, body aches and states that she is concerned that she is going into sepsis. Patient feels that she is dehydrated. Denies other acute complaints at this time, symptoms are moderate severity, no other aggravating alleviating factors.. 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 LMP N/A - Hysterectomy, Not ap3 Historical: - Allergies: 07:10 Butrans; ap3 07:10 Codeine; ap3 07:10 Latex; ap3 07:10 Metoclopramide; ap3 07:10 Reglan; ap3 07:10 Sulfa (Sulfonamide Antibiotics); ap3 07:10 Tegaderm AG Mesh; ap3 07:10 Topamax; ap3 07:10 Trokendi XR; ap3 07:10 Zofran; ap3 - Home Meds: 07:11 TPN Electrolytes intravenous [Active]; ap3 - PMHx: 07:10 diabetes mellitus; dysautonima; Fibromyalgia; Hypercholesterolemia; Hypothyroidism; ap3 insomnia; intercranial hypertension; metabolic syndrome; Migraines; Obesity; palpitations; prurigo nodularis; restless legs; Tachycardia; TIA; - PSHx: 07:11 hysterectomy; Cholecystectomy; D\T\C; stomach removal june 2024; ap3 - Immunization history:: Client reports having NOT received the Covid vaccine. Flu vaccine is not up to date. - Infectious Disease History:: Denies. - Social history:: Smoking status: Patient denies any tobacco usage or history of. - Family history:: not pertinent. ROS: 07:42 Constitutional: Negative for fever, chills, and weight loss, Cardiovascular: Negative rt for chest pain, palpitations, and edema, Respiratory: Negative for shortness of breath, cough, wheezing, and pleuritic chest pain, MS/Extremity: Negative for injury and deformity, Skin: Negative for injury, rash, and discoloration, Neuro: Negative for headache, weakness, numbness, tingling, and seizure, 07:42 Abdomen/GI: Negative for vomiting, diarrhea, 07:42 : Positive for small amounts, burning with urination, Exam: 07:42 Constitutional: This is a well developed, well nourished patient who is awake, alert, rt and in no acute distress. Head/Face: Normocephalic, atraumatic. Chest/axilla: Normal chest wall appearance and motion. Nontender with no deformity. No lesions are appreciated. Cardiovascular: Regular rate and rhythm with a normal S1 and S2. No gallops, murmurs, or rubs. Normal PMI, no JVD. No pulse deficits. Respiratory: Lungs have equal breath sounds bilaterally, clear to auscultation and percussion. No rales, rhonchi or wheezes noted. No increased work of breathing, no retractions or nasal flaring. Female : Normal external genitalia. Skin: Warm, dry with normal turgor. Normal color with no rashes, no lesions, and no evidence of cellulitis. MS/ Extremity: Pulses equal, no cyanosis. Neurovascular intact. Full, normal range of motion. 07:42 Abdomen/GI: Mild tenderness of the suprapubic region without guarding, rebound, distention, no other focal areas of tenderness, 08:14 ECG was reviewed by the Attending Physician. rt Vital Signs: 07:08 BP 139 / 89; Pulse 74; Resp 17; Temp 98.2(O); Pulse Ox 100% on R/A; Weight 85.28 kg; ap3 Height 5 ft. 3 in. ; Pain 6/10; 08:15 BP 141 / 97; Pulse 67; Resp 19; Pulse Ox 100% on R/A; db 09:54 BP 132 / 90; Pulse 57; Resp 15; Pulse Ox 100% ; ko1 10:30 BP 140 / 93; Pulse 60; Resp 14; Pulse Ox 100% on R/A; db 11:00 BP 133 / 92; Pulse 75; Resp 16; Pulse Ox 100% on R/A; db 07:08 Body Mass Index 33.30 (85.28 kg, 160.02 cm) ap3 07:08 Pain Scale: Adult ap3 MDM: 07:22 Medical Screening Exam initiated rt 14:20 Differential diagnosis: Dysuria, UTI. Data reviewed: vital signs, nurses notes, lab rt test result(s), EKG. Consideration of Admission/Observation Escalation of care including admission/observation considered. No clinical signs or symptoms of sepsis, will treat UTI as an outpatient. No indications for admission at this time.. I considered the following discharge prescriptions or medication management in the emergency department Medications were administered in the Emergency Department. See MAR. Test considered but Not performed: CT: Patient is no clinical findings suggestive of pyelonephritis, intra-abdominal process, abdominal exam is benign, does not require CT scan.. Care significantly affected by the following chronic conditions: Diabetes. Counseling: I had a detailed discussion with the patient and/or guardian regarding the historical points, exam findings, and any diagnostic results supporting the discharge/admit diagnosis, lab results, the need for outpatient follow up, to return to the emergency department if symptoms worsen or persist or if there are any questions or concerns that arise at home. Response to treatment: the patient's symptoms have markedly improved after treatment. 08/01 07:29 Order name: Blood Culture Adult (2) rt 08/01 07:29 Order name: CBC with Diff; Complete Time: 10:14 rt 08/01 07:29 Order name: CMP; Complete Time: 10:14 rt 08/01 07:29 Order name: Lactate w/ 2H reflex if indic.; Complete Time: 10:14 rt 08/01 07:29 Order name: Protime (+inr); Complete Time: 10:14 rt 08/01 07:29 Order name: Ptt, Activated; Complete Time: 10:14 rt 08/01 07:29 Order name: Urinalysis w/ reflexes; Complete Time: 10:43 rt 08/01 07:29 Order name: Troponin High Sensitivity; Complete Time: 10:14 rt 08/01 10:46 Order name: Urine Culture EDMS 08/01 07:29 Order name: Cardiac monitoring; Complete Time: 07:57 rt 08/01 07:29 Order name: EKG - Nurse/Tech; Complete Time: 08:11 rt 08/01 07:29 Order name: IV Saline Lock - Large Bore; Complete Time: 08:30 rt 08/01 07:29 Order name: Labs collected and sent; Complete Time: 08:29 rt 08/01 07:29 Order name: O2 Per Protocol; Complete Time: 57 rt 08/01 07:29 Order name: O2 Sat Monitoring; Complete Time: 57 rt 08/01 07:29 Order name: Vital Signs; Complete Time: 07:57 rt EC:14 Rate is 62 beats/min. Rhythm is regular, Normal Sinus Rhythm with No ectopy. QRS [place] rt is Normal. [place] interval is normal. QRS interval is normal. QT interval is normal. No Q waves. T waves are Normal. No ST changes noted. Interpreted by me. Administered Medications: 08:26 Drug: NS 0.9% IV 1000 ml IV at 1 bolus Per protocol; to be given as a bolus over 60 db minutes Route: IV; Rate: 1 bolus; Site: Port-a-cath; 10:00 Follow up: Response: No adverse reaction; IV Status: Completed infusion; IV Intake: db 1000ml 10:15 Drug: Promethazine IVP 12.5 mg IVP once Route: IVP; Site: Port-a-cath; db 11:30 Follow up: Response: No adverse reaction db Disposition Summary: 08/01/24 11:10 Discharge Ordered Notes: Location: Home rt Problem: new rt Symptoms: have improved rt Condition: Stable rt Diagnosis - UTI/ Urinary tract infection, site not specified rt Followup: rt - With: Private Physician - When: 2 - 3 days - Reason: Discharge Instructions: - Discharge Summary Sheet rt - Urinary Tract Infection, Adult rt Forms: - Medication Reconciliation Form rt - Antibiotic Education rt - Prescription Opioid Use rt - Patient Portal Instructions rt - Leadership Thank You Letter rt Prescriptions: - Pyridium 200 mg Oral tablet - take 1 tablet ORAL route every 8 hours for 3 days; 30 tablet; Refills: 0, rt Product Selection Permitted - cefpodoxime 200 mg Oral tablet - take 1 tablet ORAL route every 12 hours with food; 14 tablet; Refills: 0, rt Product Selection Permitted Signatures: Dispatcher [employer] Iesha Stratton RN RN ap3 Yue Goncalves RN RN db Alexander Tatum MD MD rt Corrections: (The following items were deleted from the chart) 07: 07:29 BLOOD CULTURE*+BA.LAB.BRZ ordered. EDMS EDMS 07: 07:29 CBC+H.LAB.BRZ ordered. EDMS EDMS 07:29 COMPREHENSIVE METABOLIC PANEL+C.LAB.BRZ ordered. EDMS EDMS 07:29 LACTATE+C.LAB.BRZ ordered. EDMS EDMS : 07:29 PROTIME (+INR)+COAG.LAB.BRZ ordered. EDMS EDMS 07:29 PTT, ACTIVATED+COAG.LAB.BRZ ordered. EDMS EDMS 07:29 Urinalysis+U.LAB.BRZ ordered. EDMS EDMS : 07:29 Troponin High Sensitivity+C.LAB.BRZ ordered. EDMS EDMS 08: 07:29 Accucheck ordered. rt db
[2024-08-01] MEDS ORDERED: HEPARIN 500 UNIT/5 ML SYR IV ONE (11:20)
[2024-08-01 12:57] VITALS: TEMP 98.2; O2SAT 100
[2024-08-01 13:02] VITALS: BP 133/92
== END 2024-08-01 11:31 | disposition home or self-care (01) ==
LOC: ER 06:53
DX: N39.0 Urinary tract infection, site not specified (principal); Z98.890 Other specified postprocedural states; Z28.310 Unvaccinated for COVID-19
CPT/HCPCS: 96361; 87040 ×2; 87088; 85025; 81001; 87086; 36415; 87205 ×4; 85610; 83605; 85730; 87077; 87186; 84484; 80053; 96374; 99285; J2550; J1642; J7030

== ENCOUNTER 2024-08-05 14:01 | Inpatient (IN) | payer OTHER ==
[2024-08-05 16:23] LABS: Absolute Eosinophils 0.2 K/uL (0-0.5); Absolute Monocytes 0.7 K/uL (0.1-1.3); Absolute Neutrophil 5.7 K/uL (1.8-8.0); Basophils % 0.5 % (0-1.3); Eosinophils % 1.8 % (0-4.4); Hematocrit 34.4 % (36.0-45.0); Hemoglobin 11.1 g/dL (12.0-15.0); Lymphocytes % 23.3 % (15.3-44.8); MCH 26.6 pg (27.0-35.0); MCHC 32.1 g/dL (32.0-36.0); MCV 82.8 fL (80-100); MPV 8.4 fL (7.6-11.3); Monocytes % 7.7 % (3.3-12.3); Neutrophils % 66.7 % (41.7-73.7); Platelets 309 thou/uL (152-406); RBC Red Blood Cell Count 4.16 M/uL (3.86-4.86); Red Cell Distribution Width 16.8 % (12.1-15.2)
[2024-08-05 16:45] LABS: Albumin 3.6 g/dL (3.4-5.0); Albumin/Globulin Ratio 0.8 (1.1-1.8); Anion Gap 4.1 mEq/L (5.0-15.0); Bilirubin Total 0.2 mg/dL (0.2-1.0); Globulin 4.3 g/dL (2.3-3.5); Potassium 3.1 mEq/L (3.5-5.1); Protein, Total 7.9 g/dL (6.4-8.2)
[2024-08-05 16:50] LABS: PT Prothrombin Time 12.4 SECONDS (9.4-12.5); PTT, Activated Partial Thromb 31.4 SECONDS (24.3-36.9); Protime INR 1.18
[2024-08-05] MEDS ORDERED: CEFTRIAXONE 1000 MG/VIAL ONE (17:04)
[2024-08-05] MEDS ORDERED: NA CHLORIDE 0.9% 1,000 ML ONE (17:04)
--- NOTE | 2024-08-05 17:08 | EDPHYS ---
Physician Documentation [facility] Name: Madison Anand Age: 44 yrs Sex: Female : 1980 Arrival Date: 08/05/2024 Time: 14:01 Bed 17 Private MD: ED Physician Demario Ackerman HPI: 08/05 17:15 This 44 yrs old Female presents to ER via Ambulatory with complaints of Abnormal Lab kb Results. 17:15 PT is a 44 year old female who was seen here 4 days ago and called to return for kb positive blood cultures. Pt reports she is still feeling fatigue, malaise, dizziness, "worsening dysautonomia." Denies fever, n/v/d. Pt had gastrectomy on 06/25/24 and has had left upper abd since then. States her dr is aware of this pain and she has had it evaluated. States she has been getting TPN and IV hydration for years, currently has port for this in left upper chest which was accessed on Sunday. . 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 LMP N/A - Hysterectomy, Not ap3 Historical: - Allergies: 14:18 Butrans; ap3 14:18 Codeine; ap3 14:18 Latex; ap3 14:18 Metoclopramide; ap3 14:18 Reglan; ap3 14:18 Sulfa (Sulfonamide Antibiotics); ap3 14:18 Tegaderm AG Mesh; ap3 14:18 Topamax; ap3 14:18 Trokendi XR; ap3 14:18 Zofran; ap3 - PMHx: 14:18 diabetes mellitus; dysautonima; Fibromyalgia; Hypercholesterolemia; Hypothyroidism; ap3 insomnia; intercranial hypertension; metabolic syndrome; Migraines; Obesity; palpitations; prurigo nodularis; restless legs; Tachycardia; TIA; - PSHx: 14:18 Cholecystectomy; D\\T\\C; hysterectomy; stomach removal june 2024; ap3 - Immunization history:: Client reports having NOT received the Covid vaccine. - Infectious Disease History:: Denies. - Social history:: Smoking status: Patient denies any tobacco usage or history of. ROS: 17:14 Constitutional: As per HPI kb Exam: 17:14 Constitutional: This is a well developed, well nourished patient who is awake, alert, kb and in no acute distress. Head/Face: Normocephalic, atraumatic. ENT: Moist Mucous membranes Cardiovascular: Regular rate Respiratory: Respirations even and unlabored. No increased work of breathing. Talking in full sentences Abdomen/GI: Soft, non-tender. No distention Skin: Warm, dry with normal turgor. Normal color. MS/ Extremity: Pulses equal, no cyanosis. Neurovascular intact. Full, normal range of motion. Neuro: Awake and alert, GCS 15, oriented to person, place, time, and situation. 19:18 ECG was reviewed by the Attending Physician. kb Vital Signs: 14:16 BP 127 / 81; Pulse 80; Resp 17; Temp 98.7; Pulse Ox 100% ; Weight 85.28 kg; Height 5 ap3 ft. 3 in. ; Pain 6/10; 16:28 BP 109 / 64; Pulse 72; Resp 18; Pulse Ox 97% on R/A; ld1 18:56 BP 114 / 71; Pulse 57; Resp 18; Pulse Ox 96% on R/A; ld1 20:00 BP 127 / 83; Pulse 64; Resp 17; Pulse Ox 99% on R/A; mt4 14:16 Body Mass Index 33.30 (85.28 kg, 160.02 cm) ap3 14:16 Pain Scale: Adult ap3 [place] Coma Score: 20:00 Eye Response: spontaneous(4). Motor Response: obeys commands(6). Verbal Response: mt4 oriented(5). Total: 15. MDM: 14:06 Medical Screening Exam initiated kb 17:08 Differential diagnosis: viral Infection, bacterial infection, UTI. Data reviewed: vital kb signs, nurses notes. Consideration of Admission/Observation Patient was admitted/placed on observation. Escalation of care including admission/observation considered. Management of patient was discussed with the following: Hospitalist: Hospitalist team, pt accepted for admission under Dr Pedro. Test considered but Not performed: CT: ct abd considered but pt states she had a ct 2 weeks ago that didn't show anything acute, the pain is unchanged and she prefers not to have another scan. Counseling: I had a detailed discussion with the patient and/or guardian regarding the historical points, exam findings, and any diagnostic results supporting the discharge/admit diagnosis, lab results, the need for further work-up and treatment in the hospital. 08/05 14:08 Order name: Blood Culture Adult (2) kb 08/05 14:08 Order name: CBC with Diff; Complete Time: 16:28 kb 08/05 14:08 Order name: CMP; Complete Time: 16:45 kb 08/05 14:08 Order name: Lactate w/ 2H reflex if indic.; Complete Time: 16:44 kb 08/05 14:08 Order name: Protime (+inr); Complete Time: 16:51 kb 08/05 14:08 Order name: Ptt, Activated; Complete Time: 16:51 kb 08/05 14:08 Order name: Urinalysis w/ reflexes; Complete Time: 20:10 kb 08/05 16:46 Order name: Ghost Lactate-NO COLLECT Timer; Complete Time: 18:45 EDMS 08/05 19:59 Order name: Lactate Sepsis 2 HR Follow-up; Complete Time: 20:05 EDMS 08/06 05:35 Order name: Phosphorus EDMS 08/06 09:36 Order name: RAD EDMS 08/06 09:36 Order name: RAD EDMS 08/05 17:34 Order name: CONS Physician Consult EDME 08/05 14:08 Order name: Cardiac monitoring; Complete Time: 16:17 kb 08/05 14:08 Order name: EKG - Nurse/Tech; Complete Time: 16:17 kb 08/05 14:08 Order name: IV Saline Lock - Large Bore; Complete Time: 16:17 kb 08/05 14:08 Order name: Labs collected and sent; Complete Time: 16:17 kb 08/05 14:08 Order name: O2 Per Protocol; Complete Time: 15:46 kb 08/05 14:08 Order name: O2 Sat Monitoring; Complete Time: 15:46 kb 08/05 14:08 Order name: Vital Signs; Complete Time: 16:31 kb 08/05 18:46 Order name: Misc. Order: please draw repeat lactate; Complete Time: 19:49 kb EC:18 Rate is 66 beats/min. Rhythm is regular. QRS [place] is Normal. [place] interval is normal at kb 152 msec. QRS interval is normal at 82 msec. QT interval is normal at 396 msec. Administered Medications: 17:15 Drug: NS 0.9% IV 1000 ml IV at 1000 ml once; to be given as a bolus over 60 minutes ld1 Route: IV; Rate: 1000 ml; Site: right antecubital; 21:57 Follow up: Response: No adverse reaction; IV Status: Completed infusion; IV Intake: mt4 1000ml 17:15 Drug: Rocephin IV 1 grams IV at calculated rate once; Given slow IV push per pharmacy ld1 instructions Route: IV; Rate: calculated rate; Site: right antecubital; 21:57 Follow up: Response: No adverse reaction; IV Status: Completed infusion mt4 Disposition: 17:56 I was immediately available on-site in the Emergency Department for consultation in the ms3 care of the patient. Disposition Summary: 08/05/24 17:08 Hospitalization Ordered Notes: Hospitalization Status: Observation kb Provider: Tamar Pedro Condition: Stable kb Problem: new kb Symptoms: are unchanged kb Bed/Room Type: Standard kb Location: [facility] ER HOLD(08/06/24 16:00) jl7 Room Assignment: ERHOLD-(08/06/24 16:00) jl7 Diagnosis - Positive blood cultures kb - Other malaise and fatigue kb Forms: - Medication Reconciliation Form kb - SBAR form kb - Leadership Thank You Letter kb Signatures: Dispatcher [employer] EDMS Lashay Garcias, TRANSPORTER DRIVER-C TRANSPORTER DRIVER-Ckb Tanesha Clarke RN RN jl7 Iesha Jones RN RN chico3 Demario Ackerman DO DO ms3 Nava Ackerman RN RN ld1 Betsy Culver RN RN vc1 Clementina Brooks, RN RN kb3 Aramis Carlos RN mt4 Corrections: (The following items were deleted from the chart) 19:52 17:08 Telemetry/MedSurg (observation) kb vc1 19:52 17:08 kb vc1 08/06 15:55 08/05 19:52 [facility] ER HOLD vc1 kb3 08/06 15:55 08/05 19:52 ERHOLD- vc1 kb3 08/06 16:00 15:55 Telemetry/MedSurg (observation) kb3 jl7 16:00 15:55 207 kb3 jl7
--- NOTE | 2024-08-05 17:08 | ER ---
Nurse's Notes [facility] Name: Madison Anand Age: 44 yrs Sex: Female : 1980 Arrival Date: 08/05/2024 Time: 14:01 Bed 17 Private MD: Diagnosis: Positive blood cultures;Other malaise and fatigue Presentation: 08/05 14:16 Chief complaint: Patient states: she was asked to come in after being called for ap3 positive blood cultures. patient reports feeling tired, with a headache, constipation, and left upper abdominal pain. patient reports her pain as a 6/10 on the pain scale at this time. Coronavirus screen: At this time, the client does not indicate any symptoms associated with coronavirus-19. Ebola Screen: No symptoms or risks identified at this time. Initial Sepsis Screen: Does the patient meet any 2 criteria? No. Patient's initial sepsis screen is negative. Does the patient have a suspected source of infection? No. Patient's initial sepsis screen is negative. Risk Assessment: Do you want to hurt yourself or someone else? Patient reports no desire to harm self or others. Onset of symptoms was July 29, 2024. 14:16 Method Of Arrival: Ambulatory ap3 14:16 Acuity: ESTELA 3 ap3 Triage Assessment: 14:18 General: Appears in no apparent distress. Behavior is calm, cooperative, appropriate ap3 for age, Reports fatigue for. Pain: Complains of pain in left upper quadrant Pain currently is 6 out of 10 on a pain scale. Neuro: Level of Consciousness is awake, alert, obeys commands, Oriented to person, place, time, situation, Appropriate for age. Cardiovascular: Patient's skin is warm and dry. Respiratory: Airway is patent Respiratory effort is even, unlabored, Respiratory pattern is regular, symmetrical. GI: Reports upper abdominal pain. PHP PROGRAMMER: 14:20 LMP N/A - Hysterectomy, Not ap3 Historical: - Allergies: 14:18 Butrans; ap3 14:18 Codeine; ap3 14:18 Latex; ap3 14:18 Metoclopramide; ap3 14:18 Reglan; ap3 14:18 Sulfa (Sulfonamide Antibiotics); ap3 14:18 Tegaderm AG Mesh; ap3 14:18 Topamax; ap3 14:18 Trokendi XR; ap3 14:18 Zofran; ap3 - PMHx: 14:18 diabetes mellitus; dysautonima; Fibromyalgia; Hypercholesterolemia; Hypothyroidism; ap3 insomnia; intercranial hypertension; metabolic syndrome; Migraines; Obesity; palpitations; prurigo nodularis; restless legs; Tachycardia; TIA; - PSHx: 14:18 Cholecystectomy; D\T\C; hysterectomy; stomach removal june 2024; ap3 - Immunization history:: Client reports having NOT received the Covid vaccine. - Infectious Disease History:: Denies. - Social history:: Smoking status: Patient denies any tobacco usage or history of. Screenin:19 Abuse screen: Denies threats or abuse. Nutritional screening: No deficits noted. ap3 Tuberculosis screening: No symptoms or risk factors identified. 16:28 [facility] ED Fall Risk Assessment (Adult) History of falling in the last 3 months, ld1 including since admission No falls in past 3 months (0 pts) Confusion or Disorientation No (0 pts) Intoxicated or Sedated No (0 pts) Impaired Gait No (0 pts) Mobility Assist Device Used No (0 pt) Altered Elimination No (0 pt) Score/Fall Risk Level 0 - 2 = Low Risk Oriented to surroundings, Maintained a safe environment, Educated pt \T\ family on fall prevention, incl call for assistance when getting out of bed, Assessed \T\ reinforced patient's understanding of fall precautions, Provided non-skid footwear, Hourly rounding (assess needs \T\ fall precautionary measures) done, Used ambulatory aids as needed (educated on \T\ assisted with), Used gait belt as appropriate. 20:00 Exposure risk/Travel Screening: None identified. mt4 Assessment: 16:28 General: Appears in no apparent distress. comfortable, Behavior is calm, cooperative, ld1 appropriate for age. Pain: Denies pain. Neuro: Level of Consciousness is awake, alert, obeys commands, Oriented to person, place, time, situation, Appropriate for age. Cardiovascular: Capillary refill < 3 seconds Patient's skin is warm and dry. Rhythm is sinus rhythm. Respiratory: Airway is patent Respiratory effort is even, unlabored. GI: Abdomen is round non-distended. : No signs and/or symptoms were reported regarding the genitourinary system. EENT: No signs and/or symptoms were reported regarding the EENT system. Derm: No signs and/or symptoms reported regarding the dermatologic system. Musculoskeletal: No signs and/or symptoms reported regarding the musculoskeletal system. 17:15 Reassessment: Patient appears in no apparent distress at this time. No changes from ld1 previously documented assessment. Patient and/or family updated on plan of care and expected duration. Pain level reassessed. Patient is alert, oriented x 3, equal unlabored respirations, skin warm/dry/pink. 18:56 Reassessment: Patient appears in no apparent distress at this time. Patient and/or ld1 family updated on plan of care and expected duration. Pain level reassessed. 20:00 Reassessment: Patient and/or family updated on plan of care and expected duration. Pain mt4 level reassessed. 20:00 Neuro: Level of Consciousness is awake, alert, obeys commands, Oriented to person, mt4 place, time, situation, Appropriate for age Neck Cutter are equal bilaterally Moves all extremities. Gait is steady, Speech is normal, Facial symmetry appears normal. Cardiovascular: Capillary refill. Respiratory: Airway is patent Respiratory effort is even, unlabored, Respiratory pattern is regular, symmetrical. Vital Signs: 14:16 BP 127 / 81; Pulse 80; Resp 17; Temp 98.7; Pulse Ox 100% ; Weight 85.28 kg; Height 5 ap3 ft. 3 in. ; Pain 6/10; 16:28 BP 109 / 64; Pulse 72; Resp 18; Pulse Ox 97% on R/A; ld1 18:56 BP 114 / 71; Pulse 57; Resp 18; Pulse Ox 96% on R/A; ld1 20:00 BP 127 / 83; Pulse 64; Resp 17; Pulse Ox 99% on R/A; mt4 14:16 Body Mass Index 33.30 (85.28 kg, 160.02 cm) ap3 14:16 Pain Scale: Adult ap3 Rhina Coma Score: 20:00 Eye Response: spontaneous(4). Motor Response: obeys commands(6). Verbal Response: mt4 oriented(5). Total: 15. ED Course: 14:04 Patient arrived in ED. al6 14:05 [facility]ash[facility] Garcias [facility]-C [facility] kb 14:06 Demario Ackerman DO is Attending Physician. kb 14:18 Triage completed. ap3 14:19 Arm band placed on right wrist. ap3 15:26 Missed attempt(s): 24 gauge in right antecubital area. Bleeding controlled, band aid bc6 applied, catheter tip intact. 15:47 Nava Ackerman, ELIZABETH is Primary Nurse. ld1 16:17 Blood Culture Adult (2) Sent. ld1 16:17 Lactate w/ 2H reflex if indic. Sent. ld1 16:18 Accessed peripheral vein via ultrasound, utilizing dynamic ultrasound technique Clean \T\ ld1 dry. Dressing intact. Good blood return. Flushes easily. 20 gauge R AC. 16:28 Patient has correct armband on for positive identification. Placed in gown. Bed in low ld1 position. Call light in reach. Side rails up X 1. electronic device monitor on. Pulse ox on. NIBP on. Door closed. Noise minimized. Warm blanket given. 16:28 No provider procedures requiring assistance completed. ld1 16:30 Blood Culture Adult (2) Sent. ld1 16:31 Lactate w/ 2H reflex if indic. Sent. ld1 17:07 Tamar Pedro is Hospitalizing Provider. kb 17:09 Blood Culture Adult (2) Sent. ld1 20:00 Provided Education on: repeat labs. electronic device monitor on. Pulse ox on. NIBP on. Door mt4 closed. Lights dimmed. Warm blanket given. Pillow given. Verbal reassurance given. Assisted to bathroom. 20:00 Patient maintains SpO2 saturation greater than 95% on room air. mt4 21:19 First set of blood cultures drawn by me. vk 22:11 Patient admitted, IV remains in place. vc1 Administered Medications: 17:15 Drug: NS 0.9% IV 1000 ml IV at 1000 ml once; to be given as a bolus over 60 minutes ld1 Route: IV; Rate: 1000 ml; Site: right antecubital; 21:57 Follow up: Response: No adverse reaction; IV Status: Completed infusion; IV Intake: mt4 1000ml 17:15 Drug: Rocephin IV 1 grams IV at calculated rate once; Given slow IV push per pharmacy ld1 instructions Route: IV; Rate: calculated rate; Site: right antecubital; 21:57 Follow up: Response: No adverse reaction; IV Status: Completed infusion mt4 Medication: 16:28 VIS not applicable for this client. ld1 Intake: 21:57 IV: 1000ml; Total: 1000ml. mt4 Outcome: 17:08 Decision to Hospitalize by Provider. kb 22:11 Admitted to ER Hold. Please see [facility] for further documentation. vc1 22:11 Condition: good 22:11 Instructed on the need for admit, 08/06 16:35 Patient left the ED. jl7 Signatures: Lashay Garcias, SCOURING TRAIN OPERATOR CHIEF-C SCOURING TRAIN OPERATOR CHIEF-CkTanesha Clarke, RN RN jl7 Iesha Jones RN RN ap3 Nava Ackerman RN RN ld1 Betsy Culver RN RN vc1 Tamela Bauman6 Nkechi Rivas Molinec RN RN mt4 Yolanda Allison al6
[2024-08-05] MEDS ORDERED: ACETAMINOPHEN 325 MG TABLET PO PRN (17:26)
[2024-08-05] MEDS ORDERED: ONDANSETRON 4 MG/2 ML VIAL IV PRN (17:26)
[2024-08-05] MEDS ORDERED: ACETAMINOPHEN 500 MG TAB PO PRN (17:26)
[2024-08-05] MEDS ORDERED: MAGNESIUM HYDROXIDE 8% 30 ML PO PRN (17:26)
[2024-08-05] MEDS ORDERED: ALBUTEROL 2.5 MG/3 ML NEB SOL NEB PRN (17:26)
[2024-08-05 20:07] LABS: Specific Gravity 1.012 (1.005-1.030); Sqamous Epithelial <5 /HPF (None Seen); Urine Bacteria None Seen /HPF (<20); Urine Bilirubin 1+ (Negative); Urine Blood Negative (Negative); Urine Clarity Turbid (Clear); Urine Color Dark-Yellow (Yellow); Urine Culture Reflex Order NOT NEEDED; Urine Glucose NEGATIVE (Negative); Urine Ketones NEGATIVE (Negative); Urine Microscopic Reflex YN ORDER UMIC; Urine Mucus Slight /HPF (None Seen); Urine Nitrite 2+ (Negative); Urine Protein NEGATIVE (Negative); Urine RBC <5 /HPF (None Seen); Urine Urobilinogen 2+ (Normal); Urine WBC <5 /HPF (<5)
--- NOTE | 2024-08-05 21:24 | P.HP ---
Certification for Inpatient Patient admitted to: Inpatient With expected LOS: >2 Midnights Practitioner: I am a practitioner with admitting privileges, knowledge of patient current condition, hospital course, and medical plan of care. Services: Services provided to patient in accordance with Admission requirements found in Title 42 Section 412.3 of the Code of Federal Regulations Patient History Date of Service: 08/05/24 Reason for admission: Positive blood cultures History of Present Illness: Ms. Anand is a 44-year-old with multiple medical problems who underwent a gastrectomy in June 2023. She does tolerate small amounts of p.o. but also utilizes TPN via Port-A-Cath. She states this is her fifth Port-A-Cath as they "stop working". She takes Eliquis for chest wall DVTs. She states she had a urinary tract infection upon discharge from her hospital after her gastrectomy. She took oral antibiotics for 10 days but does not feel the infection never went away. She presented to the emergency room August 01 for urinary tract infection symptoms, was discharged with Vantin 200 mg p.o. twice daily. She was called back to the emergency room today for positive blood cultures. Her initial lactate was 2.1. Currently she is hemodynamically stable, her lactate is now 0.8. We will admit her for bacteremia with a consultation to ID. Allergies buprenorphine [From Butrans] Allergy (Verified 08/05/24 20:03) Hives/Rash codeine Allergy (Unverified 12/04/15 18:38) Unknown Latex, Natural Rubber Allergy (Verified 08/05/24 20:03) Hives/Rash metoclopramide [From Reglan] Allergy (Unverified 12/04/15 18:38) Unknown ondansetron [From Zofran] Allergy (Verified 08/05/24 20:03) Hives/Rash silver [From Tegaderm AG Mesh] Allergy (Verified 08/05/24 20:03) Hives/Rash Sulfa (Sulfonamide Antibiotics) Allergy (Verified 08/05/24 20:03) Hives/Rash topiramate [From Topamax] Allergy (Unverified 12/04/15 18:38) Unknown Trokendi XR Allergy (Uncoded 12/28/16 16:33) Unknown Home Medications: ALPRAZolam [Xanax] 0.25 mg PO BID PRN 08/05/24 Albuterol Inhaler [Ventolin Inhaler] 2 puff IH Q6H PRN 08/05/24 Hydrocodone/Acetaminophen [Hydrocodon-Acetaminophen 5-325] 1 each PO PRN 08/05/24 Levothyroxine [Synthroid] 100 mcg PO [id number] 08/05/24 Linaclotide [Linzess] 72 mcg PO BEDTIME 08/05/24 Lipase/Protease/Amylase [Sha Dr 36,000 Unit Capsule] 36,000 units PO DIRECTED 08/05/24 Pantoprazole [Protonix Tab*] 40 mg PO DAILY 08/05/24 Pramipexole [Mirapex] 0.25 mg PO BEDTIME 08/05/24 Promethazine HCl 50 mg PO PRN PRN 08/05/24 Tizanidine HCl [Zanaflex] 6 mg PO TID 08/05/24 nadoloL [Nadolol] 40 mg PO DAILY 08/05/24 - Past Medical/Surgical History Has patient received pneumonia vaccine in the past: No Diabetic: No -: Dysautonomia -: Fibromyalgia -: Bianka's -: Pseudotumor -: Metabolic syndrome -: Migraine -: Obesity -: Prurigo nodularis -: Restless leg syndrome -: TIA -: DVT x 2 to chest wall -: Gastroparesis -: Cholecystectomy -: D&C -: Hysterectomy -: Gastrectomy June 2023 -: Multiple Port-A-Cath insertion - Social History Smoking Status: Unknown if ever smoked Alcohol use: No CD- Drugs: No Caffeine use: Yes Place of Residence: Home Review of Systems 10-point ROS is otherwise unremarkable General: Weakness, Malaise Eyes: Unremarkable ENT: Unremarkable Respiratory: Unremarkable Cardiovascular: Unremarkable Gastrointestinal: Nausea, Other (Left upper quadrant painchronic) Genitourinary: Dysuria, Frequency, As per HPI Musculoskeletal: Unremarkable Integumentary: Other (Chest with multiple healed scars) Neurological: Unremarkable Lymphatics: Unremarkable Physical Examination - Physical Exam General: Alert, In no apparent distress, Oriented x3, Cooperative, Obese HEENT: Atraumatic, Normocephalic Neck: Supple Respiratory: Clear to auscultation bilaterally, Normal air movement Cardiovascular: No edema, Normal pulses, Regular rate/rhythm Capillary refill: <2 Seconds Gastrointestinal: Normal bowel sounds, Tenderness (Left upper quadrant) Musculoskeletal: No clubbing, No swelling Integumentary: No rashes, Other (Healed scars to chest wall) Neurological: Normal speech, Normal tone, Normal affect Lymphatics: No axilla or inguinal lymphadenopathy External genitalia: Deferred Rectal: Deferred - Studies Laboratory Data (last 24 hrs) 08/05/24 08/05/24 08/05/24 16:13 16:13 16:13 WBC 8.60 Hgb 11.1 L Hct 34.4 L Plt Count 309 PT 12.4 INR 1.18 APTT 31.4 Sodium 141 Potassium 3.1 L BUN 9 Creatinine 0.72 Glucose 79 Total Bilirubin 0.2 AST 35 ALT 32 Alkaline Phosphatase 151 H Assessment and Plan - Plan Bacteremia with transient lactic acidosis Peripheral blood cultures Blood cultures from Port-A-Cath Rocephin 2 g IV daily Consult ID Monitor white count, temperature, signs/symptoms of sepsis Malnutrition with hypokalemia Continue TPN per home formulation Full liquid to regular diet Electrolyte monitoring and replacement, will check mag Prolonged anticoagulant use Continue Eliquis Multiple autoimmune abnormalities Continue home meds as appropriate Discharge Plan: Home Plan to discharge in: Greater than 2 days - Advance Directives Does patient have a Living Will: No Does patient have a Durable POA for Healthcare: No - Code Status/Comfort Care Code Status Assessed: Yes (Full)
[2024-08-05 21:33] VITALS: BMI 33.3
[2024-08-05] MEDS ORDERED: PROMETHAZINE INJ 25 MG/ML AMP ONE (21:50)
[2024-08-05] MEDS ORDERED: APIXABAN 5 MG TABLET ONE (21:50)
[2024-08-05] MEDS: APIXABAN 5 MG TABLET PO SCH (22:04)
[2024-08-05] MEDS: PROMETHAZINE INJ 25 MG/ML AMP IV ONE (22:04)
[2024-08-05] MEDS: ALPRAZOLAM 0.25 MG TABLET PO PRN (22:05)
[2024-08-05] MEDS: TIZANIDINE 4 MG TABLET PO SCH (22:13)
[2024-08-05] MEDS: PRAMIPEXOLE 0.25 MG TAB PO SCH (22:14)
[2024-08-06] MEDS ORDERED: HYDROCODONE/APAP 5/325 MG TAB ONE (00:30)
[2024-08-06] MEDS ORDERED: PROMETHAZINE INJ 25 MG/ML AMP ONE (00:30)
[2024-08-06] MEDS ORDERED: ZOLPIDEM TARTRATE 5 MG TABLET ONE (00:31)
[2024-08-06] MEDS: HYDROCODONE/APAP 5/325 MG TAB PO PRN (00:38)
[2024-08-06] MEDS: ZOLPIDEM TARTRATE 5 MG TABLET PO PRN (00:38)
[2024-08-06] MEDS: PROMETHAZINE INJ 25 MG/ML AMP IV ONE ×2 (00:39→00:40)
--- OUTSIDE RECORDS SUMMARY | 2024-08-06 02:26 | XMS REPORT | Clinical Summary ---
Author Name Unknown Organization [facility] Address [address] [place] [address] Care Team Providers Care Head Esthetician Name Role Phone Rabia Tanner MD Unavailable Social History Tobacco Use Types Packs/Day Years Used Date Smoking Tobacco: Never Assessed Comments Unknown Sex and Gender Information Value Date Recorded Sex Assigned at Not on file Legal Sex Female 3:49 PM CDT Gender Identity Not on file Sexual Orientation Not on file Plan of Treatment Not on file Insurance [facility] MEDICAID [place] [address] MEDICAID [employer] MEDICAID [employer] Care Teams Head Esthetician Relationship Specialty Start Date End Date Rabia Tanner MD [email or web address] PCP - External Referring Internal Medicine 03/25/18
[2024-08-06 06:42] VITALS: BP 130/78; TEMP 98.4
[2024-08-06] MEDS: CEFTRIAXONE 2,000 MG in NA CHLORIDE 0.9% 100 ML IV SCH (09:00)
[2024-08-06] MEDS ORDERED: HOME MED 1 EA UNK IV SCH (09:00)
[2024-08-06] MEDS ORDERED: APIXABAN 5 MG TABLET ONE (09:09)
[2024-08-06] MEDS: droPERidol 5 MG/2 ML VIAL IV ONE (09:25)
--- NOTE | 2024-08-06 09:26 | P.PN ---
Date of Service: 08/06/24 Subjective vomiting overnight Review of Systems 10-point ROS is otherwise unremarkable General: Weakness, Malaise Eyes: Unremarkable ENT: Unremarkable Respiratory: Unremarkable Cardiovascular: Unremarkable Gastrointestinal: Nausea, Other (Left upper quadrant painchronic) Genitourinary: Dysuria, Frequency, As per HPI Musculoskeletal: Unremarkable Integumentary: Other (Chest with multiple healed scars) Neurological: Unremarkable Lymphatics: Unremarkable Physical Examination VS: reviewed, no tachycardia or hypotension - Physical Exam General: Alert, In no apparent distress, Oriented x3, Cooperative, Obese HEENT: Atraumatic, Normocephalic Neck: Supple Respiratory: Clear to auscultation bilaterally, Normal air movement Cardiovascular: No edema, Normal pulses, Regular rate/rhythm Capillary refill: <2 Seconds Gastrointestinal: Normal bowel sounds, Tenderness (Left upper quadrant) Musculoskeletal: No clubbing, No swelling Integumentary: No rashes, Other (Healed scars to chest wall) Neurological: Normal speech, Normal tone, Normal affect Lymphatics: No axilla or inguinal lymphadenopathy External genitalia: Deferred Rectal: Deferred - Studies Laboratory Data (last 24 hrs) 08/05/24 08/05/24 08/05/24 16:13 16:13 16:13 WBC 8.60 Hgb 11.1 L Hct 34.4 L Plt Count 309 PT 12.4 INR 1.18 APTT 31.4 Sodium 141 Potassium 3.1 L BUN 9 Creatinine 0.72 Glucose 79 Total Bilirubin 0.2 AST 35 ALT 32 Alkaline Phosphatase 151 H Assessment and Plan - Plan Bacteremia with transient lactic acidosis Peripheral blood cultures Blood cultures from Port-A-Cath Rocephin 2 g IV daily Consult ID Monitor white count, temperature, signs/symptoms of sepsis Malnutrition with hypokalemia Continue TPN per home formulation Full liquid to regular diet Electrolyte monitoring and replacement, will check mag Prolonged anticoagulant use Continue Eliquis Multiple autoimmune abnormalities Continue home meds as appropriate Discharge Plan: Home Plan to discharge in: Greater than 2 days - Advance Directives Does patient have a Living Will: No Does patient have a Durable POA for Healthcare: No - Code Status/Comfort Care Code Status Assessed: Yes (Full) <Zulema Mccollum - Last Filed: 08/06/24 09:29> DC needs 44 years old female patient with past medical history status post gastric bypass for idiopathic gastroparesis, central TPN through port a catheter for hydration and nutrition who was initially presented emergency room for fatigue and UTI discharged home with oral antibiotics. Later outpatient blood culture from the ED came back positive for Pantoea Agglomerans in 4 out of 4. She is not toxic appearing, no sign of sepsis based on basic lab result. Given her clinical manifestation, I believe this is a true bacteremia without sepsis, the source of infection likely port a catheter. Patient states that she has had a Bailey catheter over the past 1 year, she has been taking care of Bailey catheter by herself, no previous infection of central line. Will initiate her on 2 g ceftriaxone, consult ID for further management and evaluation of this unusual bacteremia. <JOHN Pedro - Last Filed: 08/06/24 10:24>
--- NOTE | 2024-08-06 09:35 | RAD REPORT ---
EXAM: Chest Single View HISTORY: Rule out pneumonia the source of bacteremia, port COMPARISON: None. FINDINGS: LUNGS/PLEURA: The lungs are clear. No pleural effusions or pneumothorax. No pulmonary edema. MEDIASTINUM: The mediastinal silhouette is within normal limits. CARDIAC: The cardiac silhouette is within normal limits. UPPER ABDOMEN: No significant abnormality. BONES: No acute abnormality. ACDF in the cervical spine. LINES/TUBES/OTHER: Port-A-Cath with tip overlying the distal SVC. IMPRESSION: No evidence of acute cardiopulmonary disease.
--- NOTE | 2024-08-06 09:36 | RAD REPORT ---
EXAM: AP view(s) of the abdomen Abdomen 1 View (KUB) HISTORY: Rule out bowel obstruction status post a gastrecto COMPARISON: None FINDINGS: Nonobstructive bowel gas pattern.. Moderate colonic stool. Surgical clips in the right upper quadrant and left midabdomen.. No acute osseous abnormality. Other: n/a IMPRESSION: Nonobstructive bowel gas pattern.
[2024-08-06] MEDS ORDERED: droPERidol 5 MG/2 ML VIAL ONE (09:38)
[2024-08-06] MEDS ORDERED: CEFTRIAXONE 1000 MG/VIAL ONE (11:34)
[2024-08-06] MEDS ORDERED: NA CHLORIDE 0.9% 100 ML ONE (11:35)
[2024-08-06] MEDS ORDERED: CEFTRIAXONE 2,000 MG in NA CHLORIDE 0.9% 100 ML IV SCH (17:00)
--- NOTE | 2024-08-06 17:06 | P.PN ---
Date of Service: 08/06/24 Blood cultures drawn peripherally 08/05/24 negative for any bacterial growth
--- NOTE | 2024-08-06 17:58 | CON ---
I was consulted for bacteremia secondary to Pantoea agglomerans. Blood cultures were done on August 01. The patient initially came in with urinary tract infection and was sent home on oral antibioti c. She underwent gastrectomy in June last year. She gets TPN via Port-A-Cath. Her initial symp toms started about a week ago when she was having burning sensation. She was called in back to [facility] for positive blood cultures. Past Medical History: Dysautonomia; fibromyalgia; Bianka disease; pseudotumor cerebri; metabolic syndrome; migraine; obesity, status post gastric bypass; prurigo nodularis; restless legs syndrome; T IA; DVT x2 to chest wall; gastroparesis; cholecystectomy; D and C; hysterectomy; gastrectomy; multipl e Port-A-Cath insertions. Social History: Tobacco positive. Alcohol negative. Family History: Noncontributory. Medications: Rocephin, TPN. See MAR for other medications. Allergies: SULFA DRUGS, LATEX, CODEINE, BUTRANS, REGLAN, ZOFRAN, TOPAMAX, SILVER, TROKENDI XR. Review of Systems: Ten-point review was performed. Physical Examination: General: This is a 44-year-old female seen in the emergency room #17, sitting in the stretcher, not in any acute cardiopulmonary distress. Vital Signs: Temperature 98, pulse 87, respirations 18, blood pressure 130/78. HEENT: Unremarkable. Neck: Supple. Lungs: Basilar crackles. Heart: S1, S2. Regular. Abdomen: Soft, nontender. Bowel sounds present. Extremities: No edema. Lab Data: Shows WBC 8.6, hemoglobin 11.1, platelets are 309. Chemistry shows BUN of 9, creatinine 0 .7. Albumin level is 3.6. Culture from August 01 shows Pantoea agglomerans. Two cultures are posi tive. Assessment And Plan: Bacteremia secondary to Pantoea agglomerans with urinary tract infection and cy stitis in a 44-year-old female, currently on Rocephin, tolerating antibiotic well. We will recommend to continue antibiotic for at least 2 weeks. Anemia of chronic disease, history of gastric bypass, fibromyalgia, 40-pound weight loss. Continue current treatment. We will follow the patient as omar jane Thank you for consult. KARY/SENDY Voice ID: [id number] Report ID: [id number]
[2024-08-06] MEDS ORDERED: AA 5%/D20W/ELECTROLYTES-TPN 2,000 ML, Lipids 20% 250 ML with MULTIVITAMINS INJ 10 ML IV SCH (18:00)
[2024-08-06] MEDS ORDERED: CEFEPIME 1 GM in NA CHLORIDE 0.9% 100 ML IV SCH (21:00)
[2024-08-06 22:41] VITALS: O2SAT 99
== END 2024-08-06 16:04 | disposition left against medical advice (07) | DRG 206 ==
LOC: ER 14:01 → ERHOLD 17:26
PROVIDERS: ADMIT Internal Medicine; ATTEND Internal Medicine
DX: T82.7XXA Infection and inflammatory reaction due to other cardiac and vascular devices, implants and grafts, initial encounter (principal); N30.90 Cystitis, unspecified without hematuria; I10 Essential (primary) hypertension; M79.7 Fibromyalgia; E87.20 Acidosis, unspecified; E03.9 Hypothyroidism, unspecified; E46 Unspecified protein-calorie malnutrition; E66.9 Obesity, unspecified; E78.00 Pure hypercholesterolemia, unspecified; D63.8 Anemia in other chronic diseases classified elsewhere; E87.6 Hypokalemia; E11.9 Type 2 diabetes mellitus without complications; R78.81 Bacteremia; B96.89 Other specified bacterial agents as the cause of diseases classified elsewhere; Z90.3 Acquired absence of stomach [part of]; Z90.710 Acquired absence of both cervix and uterus; Z88.5 Allergy status to narcotic agent; Z88.2 Allergy status to sulfonamides; Z88.8 Allergy status to other drugs, medicaments and biological substances; Z91.040 Latex allergy status; Z68.33 Body mass index [BMI] 33.0-33.9, adult; Z86.73 Personal history of transient ischemic attack (TIA), and cerebral infarction without residual deficits; Z90.49 Acquired absence of other specified parts of digestive tract; Z53.29 Procedure and treatment not carried out because of patient's decision for other reasons; Z28.310 Unvaccinated for COVID-19; Z79.890 Hormone replacement therapy; Z79.899 Other long term (current) drug therapy
CPT/HCPCS: 36415; 71045; 74018; 80053; 81001; 83605; 84100; 85025; 85610; 85730; 87040; 96365; 96366; 99285; J0696; J1790; J2550; J7030

== ENCOUNTER 2024-09-12 06:41 | Emergency (ER) | payer MEDICAID ==
--- OUTSIDE RECORDS SUMMARY | 2024-09-12 06:44 | XMS REPORT | Clinical Summary ---
Author Name Unknown Organization [facility] Address [address] [place] [address] Care Team Providers Care Policy Change Clerks Supervisor Name Role Phone Rabia Tanner MD Unavailable Social History Tobacco Use Types Packs/Day Years Used Date Smoking Tobacco: Never Assessed Comments Unknown Sex and Gender Information Value Date Recorded Sex Assigned at Not on file Legal Sex Female 3:49 PM CDT Gender Identity Not on file Sexual Orientation Not on file Plan of Treatment Not on file Insurance [facility] MEDICAID STAR PLUS SSI MEDICAID STAR [employer]US SSI MEDICAID ST[employer] SSI Care Teams Policy Change Clerks Supervisor Relationship Specialty Start Date End Date Rabia Tanner MD [email or web address] PCP - External Referring Internal Medicine 03/25/18
--- NOTE | 2024-09-12 08:00 | RAD REPORT ---
EXAMINATION: Stone Protocol CLINICAL INDICATION: Abdominal pain TECHNIQUE: CT abdomen and pelvis was performed, without IV contrast, as per department protocol. Oral contrast not given. Axial, sagittal and coronal reconstructions were obtained. One or more of the following dose reduction techniques were used: Automated exposure control, adjustment of the mA and k V according to the patient size, and iterative reconstruction. Unless otherwise specified, incidental findings do not require dedicated imaging follow-up. COMPARISON: 2017 FINDINGS: The lack of intravenous and oral contrast limits the sensitivity of this exam for evaluation of solid visceral organs, vascular structures, and bowel Tiny calculi left kidney. No hydronephrosis. No right renal calculi. A ureteral calculus is not seen. No bladder calculus. Cholecystectomy. Post surgical changes involve the stomach and small bowel. No obstruction. Hysterectomy. No adnexal mass.. Normal appendix Fatty liver. spleen, pancreas and adrenals grossly normal No evidence of diverticulitis. IMPRESSION: Nonobstructing left renal calculi
[2024-09-12 08:44] LABS: Absolute Eosinophils 0.1 K/uL (0-0.5); Absolute Lymphocytes (CBC) 1.9 K/uL (0.7-4.9); Absolute Monocytes 0.5 K/uL (0.1-1.3); Absolute Neutrophil 4.3 K/uL (1.8-8.0); Basophils % 0.6 % (0-1.3); Eosinophils % 1.6 % (0-4.4); Hematocrit 34.6 % (36.0-45.0); Hemoglobin 11.2 g/dL (12.0-15.0); Lymphocytes % 27.8 % (15.3-44.8); MCH 26.7 pg (27.0-35.0); MCHC 32.3 g/dL (32.0-36.0); MCV 82.8 fL (80-100); Monocytes % 7.3 % (3.3-12.3); Neutrophils % 62.7 % (41.7-73.7); Nucleated Red Blood Cells % 0.1 % (0-0); Platelets 241 thou/uL (152-406); RBC Red Blood Cell Count 4.18 M/uL (3.86-4.86); Red Cell Distribution Width 19.2 % (12.1-15.2)
[2024-09-12 08:49] LABS: Specific Gravity 1.011 (1.005-1.030); Sqamous Epithelial <5 /HPF (None Seen); Urine Bacteria None Seen /HPF (<20); Urine Bilirubin NEGATIVE (Negative); Urine Blood 2+ (Negative); Urine Clarity Extremely Turbid (Clear); Urine Color Colorless (Yellow); Urine Culture Reflex Order REFLEXED; Urine Glucose NEGATIVE (Negative); Urine Ketones NEGATIVE (Negative); Urine Microscopic Reflex YN ORDER UMIC; Urine Mucus 4+ /HPF (None Seen); Urine Nitrite NEGATIVE (Negative); Urine Protein TRACE (Negative); Urine Urobilinogen Normal (Normal); Urine WBC >50 /HPF (<5); Urine WBC Clump Few /HPF (None Seen); Urine pH 6.5 (5.0-7.0)
[2024-09-12 08:54] LABS: Albumin 3.3 g/dL (3.4-5.0); Albumin/Globulin Ratio 0.9 (1.1-1.8); Anion Gap 11.1 mEq/L (5.0-15.0); Bilirubin Total 0.3 mg/dL (0.2-1.0); Globulin 3.8 g/dL (2.3-3.5); Potassium 3.1 mEq/L (3.5-5.1); Protein, Total 7.1 g/dL (6.4-8.2)
--- NOTE | 2024-09-12 09:21 | RAD REPORT ---
Procedure: Chest Single View HISTORY: Cough COMPARISON: July 2024 FINDINGS: The lungs appear clear of acute infiltrate. No significant pleural effusion noted. The heart is normal size. Central venous catheter in place IMPRESSION: No acute abnormality is displayed.
--- NOTE | 2024-09-12 09:29 | EDPHYS ---
Physician Documentation [facility] Name: Madison Anand Age: 44 yrs Sex: Female : 1980 Arrival Date: 09/12/2024 Time: 06:41 Bed 16 Private MD: José Miguel Sue HPI: 09/12 09:22 This 44 yrs old Female presents to ER via Ambulatory with complaints of maryuri Urinary Retention. 09:22 The patient presents with abdominal pain in the lower abdomen. Onset: The maryuri symptoms/episode began/occurred 2 day(s) ago. The patient presents with urinary symptoms, dysuria, frequency, urgency, urinary retention. Onset: The symptoms/episode began/occurred 2 day(s) ago. Modifying factors: The symptoms are alleviated by nothing, the symptoms are aggravated by nothing. Associated signs and symptoms: The patient has no apparent associated signs or symptoms. Severity of symptoms: At their worst the symptoms were moderate, in the emergency department the symptoms are unchanged. The patient is sexually active, reportedly has a single partner. 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 cm10 Historical: - Allergies: 07:07 Butrans; ll1 07:07 Codeine; ll1 07:07 Latex; ll1 07:07 Metoclopramide; ll1 07:07 Reglan; ll1 07:07 Sulfa (Sulfonamide Antibiotics); ll1 07:07 Tegaderm AG Mesh; ll1 07:07 Topamax; ll1 07:07 Trokendi XR; ll1 07:07 Zofran; ll1 - PMHx: 07:07 diabetes mellitus; dysautonima; Fibromyalgia; Hypercholesterolemia; Hypothyroidism; ll1 insomnia; intercranial hypertension; metabolic syndrome; Migraines; Obesity; palpitations; prurigo nodularis; restless legs; Tachycardia; TIA; - PSHx: 07:07 Cholecystectomy; D\T\C; hysterectomy; stomach removal june 2024; ll1 - Immunization history:: Adult Immunizations up to date. - Infectious Disease History:: Denies. - Social history:: Smoking status: Patient denies any tobacco usage or history of. - Family history:: not pertinent. ROS: 09:22 Constitutional: Negative for fever, chills, and weight loss, Eyes: Negative for injury, maryuri pain, redness, and discharge, ENT: Negative for injury, pain, and discharge, Neck: Negative for injury, pain, and swelling, Cardiovascular: Negative for chest pain, palpitations, and edema, Respiratory: Negative for shortness of breath, cough, wheezing, and pleuritic chest pain, Back: Negative for injury and pain, MS/Extremity: Negative for injury and deformity, Skin: Negative for injury, rash, and discoloration, Neuro: Negative for headache, weakness, numbness, tingling, and seizure, Psych: Negative for depression, anxiety, suicide ideation, homicidal ideation, and hallucinations, Allergy/Immunology: Negative for hives, rash, and allergies, Endocrine: Negative for neck swelling, polydipsia, polyuria, polyphagia, and marked weight changes, Hematologic/Lymphatic: Negative for swollen nodes, abnormal bleeding, and unusual bruising, :22 : Positive for urinary symptoms, urinary frequency, burning with urination, Exam: : Constitutional: This is a well developed, well nourished patient who is awake, alert, maryuri and in no acute distress. Head/Face: Normocephalic, atraumatic. Eyes: Pupils equal round and reactive to light, extra-ocular motions intact. Lids and lashes normal. Conjunctiva and sclera are non-icteric and not injected. Cornea within normal limits. Periorbital areas with no swelling, redness, or edema. ENT: Nares patent. No nasal discharge, no septal abnormalities noted. Tympanic membranes are normal and external auditory canals are clear. Oropharynx with no redness, swelling, or masses, exudates, or evidence of obstruction, uvula midline. Mucous membranes moist. Neck: Trachea midline, no thyromegaly or masses palpated, and no cervical lymphadenopathy. Supple, full range of motion without nuchal rigidity, or vertebral point tenderness. No Meningismus. Chest/axilla: Normal chest wall appearance and motion. Nontender with no deformity. No lesions are appreciated. Cardiovascular: Regular rate and rhythm with a normal S1 and S2. No gallops, murmurs, or rubs. Normal PMI, no JVD. No pulse deficits. Respiratory: Lungs have equal breath sounds bilaterally, clear to auscultation and percussion. No rales, rhonchi or wheezes noted. No increased work of breathing, no retractions or nasal flaring. Back: No spinal tenderness. No costovertebral tenderness. Full range of motion. Skin: Warm, dry with normal turgor. Normal color with no rashes, no lesions, and no evidence of cellulitis. MS/ Extremity: Pulses equal, no cyanosis. Neurovascular intact. Full, normal range of motion., bilateral aka Neuro: Awake and alert, GCS 15, oriented to person, place, time, and situation. Cranial nerves II-XII grossly intact. Motor strength 5/5 in all extremities. Sensory grossly intact. Cerebellar exam normal. Normal gait. Psych: Awake, alert, with orientation to person, place and time. Behavior, mood, and affect are within normal limits. 09:22 Abdomen/GI: Inspection: abdomen appears normal, Bowel sounds: normal, Palpation: mild abdominal tenderness, in all quadrants, Liver: no appreciated palpable abnormalities, Hernia: not appreciated, Vital Signs: 07:07 BP 134 / 101; Pulse 84; Resp 15; Temp 96.3; Pulse Ox 98% ; Weight 77.11 kg; Height 5 ll1 ft. 3 in. ; Pain 7/10; 10:42 BP 139 / 95; Pulse 89; Resp 19; Pulse Ox 98% on R/A; cm10 07:07 Body Mass Index 30.11 (77.11 kg, 160.02 cm) ll1 07:07 Pain Scale: Adult ll1 MDM: 07:08 Medical Screening Exam initiated maryuri 09:24 Differential diagnosis: kidney stone, urinary tract infection, Cholelithiasis, maryuri non-specific abd pain, pancreatitis. Data reviewed: vital signs, nurses notes, lab test result(s), radiologic studies, CT scan. Consideration of Admission/Observation Escalation of care including admission/observation considered. I considered the following discharge prescriptions or medication management in the emergency department Medications were administered in the Emergency Department. See MAR. Independent interpretation of the following test(s) in the Emergency Department CT Scan: My interpretation is ct stone. Test considered but Not performed: Ultrasound no abd usg. Historians other than the Patient: pt well informed. Care significantly affected by the following chronic conditions: Diabetes, dysautonima, hypothyroid, fifromyalgia. Counseling: I had a detailed discussion with the patient and/or guardian regarding the historical points, exam findings, and any diagnostic results supporting the discharge/admit diagnosis, lab results, radiology results, the need for outpatient follow up, for definitive care, a family practitioner, a toolman. 09/12 07:19 Order name: CBC with Diff; Complete Time: 09:20 [facility] 09/12 07:19 Order name: CMP; Complete Time: 09:20 [facility] 09/12 07:19 Order name: Urinalysis w/ reflexes; Complete Time: 09:20 [facility] 09/12 07:19 Order name: Urine Culture [facility] 09/12 08:39 Order name: Lipase; Complete Time: 09:20 EDMS 09/12 07:19 Order name: CT Stone Protocol; Complete Time: 09:20 [facility] 09/12 08:24 Order name: Chest Single View XRAY; Complete Time: 09:22 [facility] 09/12 07:19 Order name: IV Saline Lock - Large Bore; Complete Time: 08:30 [facility] 09/12 07:19 Order name: Bladder Scanner: note pvr; Complete Time: 08:40 maryuri Administered Medications: 09:55 Drug: NS 0.9% IV (30 ml/kg) 30 ml/kg IV at bolus once; Sepsis Protocol; to be given as ap3 a bolus over 90 minutes Route: IV; Rate: bolus; Site: Other; 10:42 Follow up: Response: No adverse reaction; IV Status: Completed infusion; IV Intake: cm10 2313.3ml 09:55 Drug: Rocephin - Rocephin (cefTRIAXone) IVPB 2 grams IVPB once over 30 mins; (mix in ap3 100 mL NS) Route: IVPB; Infused Over: 30 mins; Site: Other; 10:29 Follow up: IV Status: Completed infusion; IV Intake: 1000ml ap3 09:55 Drug: Ciprofloxacin PO 500 mg PO once Route: PO; ap3 10:29 Follow up: Response: No adverse reaction ap3 09:55 Drug: Potassium PO Effervescent Tablet 25 mEq PO once; dissolve in 4 ounces of water or ap3 juice Route: PO; 10:29 Follow up: Response: No adverse reaction ap3 09:56 Drug: Promethazine IVP 25 mg IVP once Route: IVP; Site: Other; ap3 10:42 Follow up: Response: No adverse reaction cm10 Disposition Summary: 09/12/24 09:28 Discharge Ordered Notes: Location: Home maryuri Problem: new maryuri Symptoms: have improved maryuri Condition: Stable maryuri Diagnosis - UTI/ Urinary tract infection, site not specified maryuri - Acute cystitis maryuri - Hypokalemia maryuri Followup: maryuri - With: Private Physician - When: 2 - 3 days - Reason: Recheck today's complaints, Continuance of care, Re-evaluation by your physician Discharge Instructions: - Discharge Summary Sheet maryuri - Potassium Content of Foods maryuri - Urinary Tract Infection, Adult maryuri - Urinary Tract Infection, Adult, [id number] maryuri - Hypokalemia [facility] Forms: - Medication Reconciliation Form maryuri - Antibiotic Education maryuri - Prescription Opioid Use maryuri - Patient Portal Instructions [facility] - Leadership Thank You Letter [facility] Prescriptions: - cefdinir 300 mg Oral capsule - take 1 capsule ORAL route 2 times per day for 7 days; 14 capsule; Refills: 0, maryuri Product Selection Permitted - promethazine 25 mg Rectal suppository - insert 1 suppository RECTAL route every 6 hours prn; 20 suppository; Refills: maryuri 0, Product Selection Permitted - Cipro 250 mg Oral tablet - take 1 tablet ORAL route every 12 hours; 10 tablet; Refills: 0, Product [facility] Selection Permitted - Potassium Chloride 20 meq Oral Packet - take 1 packet ORAL route once daily 1 packet in 6 (six) ounces of water or maryuri juice; Take after meal; 15 packet; Refills: 0, Product Selection Permitted - Fluconazole 200 mg Oral Tablet - take 2 tablets ORAL route once daily; 60 tablet; Refills: 0, Product Selection maryuri Permitted Signatures: Dispatcher [employer] EDJosé Miguel Reilly MD MD cha Prokisch, Amanda RN RN ap3 Dahlia Garza RN RN ll1 Neda Dawson RN RN cm10 Corrections: (The following items were deleted from the chart) 08:40 08:24 LIPASE+C.LAB.BRZ ordered. EDMS EDMS
--- NOTE | 2024-09-12 09:29 | ER ---
Nurse's Notes [facility] Name: Madison Anand Age: 44 yrs Sex: Female : 1980 Arrival Date: 09/12/2024 Time: 06:41 Bed 16 Private MD: Diagnosis: UTI/ Urinary tract infection, site not specified;Acute cystitis;Hypokalemia Presentation: 09/12 07:07 Coronavirus screen: Client denies travel out of the [place] in the last 14 days. At this ll1 time, the client does not indicate any symptoms associated with coronavirus-19. Ebola Screen: Patient denies travel to an Ebola-affected area in the 21 days before illness onset. Initial Sepsis Screen: Does the patient meet any 2 criteria? No. Patient's initial sepsis screen is negative. Does the patient have a suspected source of infection? No. Patient's initial sepsis screen is negative. Risk Assessment: Do you want to hurt yourself or someone else? Patient reports no desire to harm self or others. Onset of symptoms was September 06, 2024. 07:07 Method Of Arrival: Ambulatory ll1 07:07 Acuity: ESTELA 3 ll1 07:07 Chief complaint: Patient states: Dysuria, oliguria, abdominal pain with N/V for 1 week. ll1 No fever. Triage Assessment: 07:06 General: Appears in no apparent distress. Behavior is calm, cooperative, appropriate ll1 for age, Reports chills for fatigue for. Pain: Complains of pain in abdomen Pain currently is 7 out of 10 on a pain scale. Quality of pain is described as aching, crampy. GI: Reports lower abdominal pain, upper abdominal pain, cramping, nausea, vomiting. : Reports burning with urination, cramping, inability to void, pain with urination, urinary frequency. 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 cm10 Historical: - Allergies: 07:07 Butrans; ll1 07:07 Codeine; ll1 07:07 Latex; ll1 07:07 Metoclopramide; ll1 07:07 Reglan; ll1 07:07 Sulfa (Sulfonamide Antibiotics); ll1 07:07 Tegaderm AG Mesh; ll1 07:07 Topamax; ll1 07:07 Trokendi XR; ll1 07:07 Zofran; ll1 - PMHx: 07:07 diabetes mellitus; dysautonima; Fibromyalgia; Hypercholesterolemia; Hypothyroidism; ll1 insomnia; intercranial hypertension; metabolic syndrome; Migraines; Obesity; palpitations; prurigo nodularis; restless legs; Tachycardia; TIA; - PSHx: 07:07 Cholecystectomy; D\T\C; hysterectomy; stomach removal june 2024; ll1 - Immunization history:: Adult Immunizations up to date. - Infectious Disease History:: Denies. - Social history:: Smoking status: Patient denies any tobacco usage or history of. - Family history:: not pertinent. Screenin:40 [facility] ED Fall Risk Assessment (Adult) History of falling in the last 3 months, ap3 including since admission No falls in past 3 months (0 pts) Confusion or Disorientation No (0 pts) Intoxicated or Sedated No (0 pts) Impaired Gait No (0 pts) Mobility Assist Device Used No (0 pt) Altered Elimination No (0 pt) Score/Fall Risk Level 0 - 2 = Low Risk Oriented to surroundings, Maintained a safe environment, Educated pt \T\ family on fall prevention, incl call for assistance when getting out of bed, Assessed \T\ reinforced patient's understanding of fall precautions, Hourly rounding (assess needs \T\ fall precautionary measures) done, Used ambulatory aids as needed (educated on \T\ assisted with). Abuse screen: Denies threats or abuse. Nutritional screening: No deficits noted. Tuberculosis screening: No symptoms or risk factors identified. Assessment: 08:39 General: Appears in no apparent distress. Behavior is calm, cooperative, appropriate ap3 for age. Neuro: Level of Consciousness is awake, alert, obeys commands, Oriented to person, place, time, situation. Cardiovascular: Patient's skin is warm and dry. Respiratory: Airway is patent Respiratory effort is even, unlabored, Respiratory pattern is regular, symmetrical. : Reports inability to empty bladder fully. 10:04 General: patient awaiting completion of medications prior to discharge. . ap3 Vital Signs: 07:07 BP 134 / 101; Pulse 84; Resp 15; Temp 96.3; Pulse Ox 98% ; Weight 77.11 kg; Height 5 ll1 ft. 3 in. ; Pain 7/10; 10:42 BP 139 / 95; Pulse 89; Resp 19; Pulse Ox 98% on R/A; cm10 07:07 Body Mass Index 30.11 (77.11 kg, 160.02 cm) ll1 07:07 Pain Scale: Adult ll1 ED Course: 06:45 Patient arrived in ED. gm2 07:08 José Miguel Dillon MD is Attending Physician. maryuri 07:08 Triage completed. ll1 07:10 Arm band placed on Patient placed in an exam room, on a stretcher. ll1 07:21 Iesha Jones, ELIZABETH is Primary Nurse. ap3 07:38 CT Stone Protocol In Process Unspecified. EDMS 08:22 Urine Culture Sent. em1 08:22 Urinalysis w/ reflexes Sent. em1 08:31 CMP Sent. ap3 08:31 CBC with Diff Sent. ap3 08:39 Bladder scan completed. PRV:44. ap3 08:53 Chest Single View XRAY In Process Unspecified. EDMS 10:32 Patient has correct armband on for positive identification. Adult w/ patient. Provided ap3 Education on: medications prior to administration. 10:32 No provider procedures requiring assistance completed. ap3 10:43 Patient did not have IV access during this emergency room visit. cm10 Administered Medications: 09:55 Drug: NS 0.9% IV (30 ml/kg) 30 ml/kg IV at bolus once; Sepsis Protocol; to be given as ap3 a bolus over 90 minutes Route: IV; Rate: bolus; Site: Other; 10:42 Follow up: Response: No adverse reaction; IV Status: Completed infusion; IV Intake: cm10 2313.3ml 09:55 Drug: Rocephin - Rocephin (cefTRIAXone) IVPB 2 grams IVPB once over 30 mins; (mix in ap3 100 mL NS) Route: IVPB; Infused Over: 30 mins; Site: Other; 10:29 Follow up: IV Status: Completed infusion; IV Intake: 1000ml ap3 09:55 Drug: Ciprofloxacin PO 500 mg PO once Route: PO; ap3 10:29 Follow up: Response: No adverse reaction ap3 09:55 Drug: Potassium PO Effervescent Tablet 25 mEq PO once; dissolve in 4 ounces of water or ap3 juice Route: PO; 10:29 Follow up: Response: No adverse reaction ap3 09:56 Drug: Promethazine IVP 25 mg IVP once Route: IVP; Site: Other; ap3 10:42 Follow up: Response: No adverse reaction cm10 Medication: 10:32 VIS not applicable for this client. ap3 Intake: 10:29 IV: 1000ml; Total: 1000ml. ap3 10:42 IV: 2313ml; Total: 3313ml. cm10 Outcome: 09:28 Discharge ordered by . maryuri 10:42 Discharged to home ambulatory, with significant other, cm10 10:42 Condition: good 10:42 Discharge instructions given to patient, Instructed on discharge instructions, follow up and referral plans. medication usage, Demonstrated understanding of instructions, follow-up care, medications, Prescriptions given X 5 10:43 Patient left the ED. cm10 Signatures: Dispatcher [employer] EDMS José Miguel Dillon MD MD cha Martinez, Eric emIesha Rico RN RN ap3 Dahlia Garza RN RN 1 Neda Dawson RN RN cm10 Jaleesa Rothman [facility]
[2024-09-12] MEDS ORDERED: CEFTRIAXONE 2000 MG/VIAL ONE (09:31)
[2024-09-12] MEDS ORDERED: PROMETHAZINE INJ 25 MG/ML AMP ONE (09:31)
[2024-09-12] MEDS ORDERED: NA CHLORIDE 0.9% 1,000 ML ONE (09:32)
[2024-09-12] MEDS ORDERED: NA CHLORIDE 0.9% 100 ML ONE (09:32)
[2024-09-12] MEDS ORDERED: CIPROFLOXACIN HCL 500 MG TAB ONE (09:32)
[2024-09-12] MEDS ORDERED: POTASSIUM 25 MEQ EFFERV TAB ONE (09:36)
[2024-09-12 10:48] VITALS: TEMP 96.3; O2SAT 98
[2024-09-12 10:50] VITALS: BP 139/95
== END 2024-09-12 10:43 | disposition home or self-care (01) ==
LOC: ER 06:41
DX: N39.0 Urinary tract infection, site not specified (principal); E87.6 Hypokalemia
CPT/HCPCS: 96365; 96368; 87088; 85025; 81001; 87086; 36415; 87077; 87186; 83690; 80053; 76377; 74176; 71045; 96375; 99284; J2550; J0696; J7030

== ENCOUNTER 2024-10-13 20:52 | Emergency (ER) | payer MEDICAID ==
--- OUTSIDE RECORDS SUMMARY | 2024-10-13 20:54 | XMS REPORT | Clinical Summary ---
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 Name Role Phone Rabia Tanner MD Unavailable Social History Tobacco Use Types Packs/Day Years Used Date Smoking Tobacco: Never Assessed Comments Unknown Sex and Gender Information Value Date Recorded Sex Assigned at Not on file Legal Sex Female 3:49 PM CDT Gender Identity Not on file Sexual Orientation Not on file Plan of Treatment Not on file Insurance [facility] MEDICAID [employer] MEDICAID [place] [employer] [employer] MEDICAID [employer] Care 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
[2024-10-13] MEDS ORDERED: droPERidol 5 MG/2 ML VIAL ONE (21:30)
[2024-10-13] MEDS ORDERED: KETOROLAC 30 MG/ML INJ ONE (21:31)
[2024-10-13] MEDS ORDERED: NA CHLORIDE 0.9% 1,000 ML ONE (21:31)
[2024-10-13] MEDS ORDERED: PROMETHAZINE INJ 25 MG/ML AMP ONE (21:31)
[2024-10-13] MEDS ORDERED: LEVETIRACETAM 500 MG/5 ML VIAL IV ONE (21:42)
[2024-10-13] MEDS ORDERED: NA CHLORIDE 0.9% 250 ML ONE (21:43)
--- NOTE | 2024-10-13 21:51 | RAD REPORT ---
EXAM: CT brain without contrast HISTORY: head and neck injury COMPARISON: None TECHNIQUE: Multiple contiguous axial images were obtained and a CT of the brain without contrast. Sag ittal and coronal reformats were performed. One or more of the following dose reduction techniques were used: Automated exposure control, adjust ment of the mA and/or kV according to patient size, and/or iterative reconstruction. FINDINGS: No evidence of hydrocephalus, intracranial hemorrhage, or extra-axial fluid collection. The brain is normal in morphology. No evidence of midline shift or areas of brain edema. The calvarium is intact. The visualized paranasal sinuses and mastoid air cells are essentially clear . IMPRESSION: No evidence of acute intracranial abnormality. EXAM: CT of the cervical spine without contrast HISTORY: Neck pain, injury head and neck injury TECHNIQUE: Multiple contiguous axial images were obtained in a CT of the cervical spine without contr ast. Sagittal and coronal reformats were performed. FINDINGS: The vertebral bodies demonstrate normal height and alignment. No evidence of acute fracture or subluxation.. ACDF C6-7. No prevertebral soft tissue swelling is seen. The posterior facets are well aligned. Normal alignment of the skull base with the cervical spine is seen. The lung apices are unremarkable. IMPRESSION: No evidence of acute osseous abnormality of the cervical spine.
[2024-10-13 21:59] LABS: Albumin 3.5 g/dL (3.4-5.0); Albumin/Globulin Ratio 0.9 (1.1-1.8); Anion Gap 10.4 mEq/L (5.0-15.0); Bilirubin Total 0.6 mg/dL (0.2-1.0); Globulin 3.9 g/dL (2.3-3.5); Potassium 3.4 mEq/L (3.5-5.1); Protein, Total 7.4 g/dL (6.4-8.2)
--- NOTE | 2024-10-13 22:06 | RAD REPORT ---
EXAM: CT THORACIC SPINE WITHOUT CONTRAST HISTORY: fall, back pain COMPARISON: None TECHNIQUE: Multiple contiguous axial images were obtained in a CT of the thoracic spine without contr ast. Sagittal and coronal reformats were performed. One or more of the following dose reduction techniques were used: Automated exposure control, adjustment of the mA and kV according to patient si ze, and iterative reconstruction. Unless otherwise specified, incidental findings do not require dedicated imaging follow-up. FINDINGS: The vertebral bodies and intervertebral discs demonstrate normal height and alignment witho ut fracture or subluxation. . No degenerative changes are present. Cervical hardware plate noted. . The prevertebral and paraspinal soft tissues are unremarkable. The included portions of the lungs a nd mediastinum are unremarkable. Small left renal calculi noted. IMPRESSION: No evidence of acute osseous abnormality of the thoracic spine.
[2024-10-13 22:07] LABS: Absolute Eosinophils 0.1 K/uL (0-0.5); Absolute Lymphocytes (CBC) 1.3 K/uL (0.7-4.9); Absolute Monocytes 0.7 K/uL (0.1-1.3); Absolute Neutrophil 8.2 K/uL (1.8-8.0); Basophils % 0.5 % (0-1.3); Eosinophils % 1.2 % (0-4.4); Hematocrit 35.5 % (36.0-45.0); Hemoglobin 11.8 g/dL (12.0-15.0); Lymphocytes % 12.3 % (15.3-44.8); MCH 27.9 pg (27.0-35.0); MCHC 33.4 g/dL (32.0-36.0); MCV 83.5 fL (80-100); MPV 9.1 fL (7.6-11.3); Monocytes % 6.7 % (3.3-12.3); Neutrophils % 79.3 % (41.7-73.7); Platelets 197 thou/uL (152-406); RBC Red Blood Cell Count 4.25 M/uL (3.86-4.86); Red Cell Distribution Width 21.3 % (12.1-15.2)
[2024-10-13] MEDS ORDERED: HYDROCODONE/APAP 10/325 TAB ONE (23:19)
--- NOTE | 2024-10-13 23:26 | ER ---
Nurse's Notes [facility] Name: Madison Anand Age: 44 yrs Sex: Female : 1980 Arrival Date: 10/13/2024 Time: 20:52 Bed 15 Private MD: Diagnosis: Sprain of joints and ligaments of other parts of neck, initial encounter;Other seizures;Recurrent seizure, acute fall, acute upper back pain, acute ligamentous cervical sprain, history of C-spine fusion, Transaminitis, elevated liver enzymes Presentation: 10/13 21:10 Chief complaint: Patient states: I FELL TODAY DUE TO PROBLEM WITH BALANCE. NECK PAIN ha1 AND HEADACHE. SEIZURE WHILE SLEEPING . HISTORY OF SEIZURES. 21:10 Coronavirus screen: Client denies travel out of the [place] in the last 14 days. Ebola ha1 Screen: No symptoms or risks identified at this time. Initial Sepsis Screen: Does the patient meet any 2 criteria? No. Patient's initial sepsis screen is negative. Does the patient have a suspected source of infection? No. Patient's initial sepsis screen is negative. Risk Assessment: Do you want to hurt yourself or someone else? Patient reports no desire to harm self or others. Onset of symptoms was October 13, 2024. 21:10 Method Of Arrival: Wheelchair ha1 21:10 Acuity: ESTELA 3 ha1 21:15 Care prior to arrival: None. Mechanism of Injury: Fall out of chair. 5 21:15 Trauma event details: Injury occurred in the [facility]. Activity prior to [facility] arrival: seizure. Historical: - Allergies: 21:10 Butrans; ha1 21:10 Codeine; ha1 21:10 Latex; ha1 21:10 Metoclopramide; ha1 21:10 Reglan; ha1 21:10 Sulfa (Sulfonamide Antibiotics); ha1 21:10 Tegaderm AG Mesh; ha1 21:10 Topamax; ha1 21:10 Trokendi XR; ha1 21:10 Zofran; ha1 - Home Meds: 21:10 TPN Electrolytes intravenous [Active]; ha1 - PMHx: 21:10 diabetes mellitus; dysautonima; Fibromyalgia; Hypercholesterolemia; Hypothyroidism; ha1 insomnia; intercranial hypertension; metabolic syndrome; Migraines; Obesity; palpitations; prurigo nodularis; restless legs; Tachycardia; TIA; - PSHx: 21:10 Cholecystectomy; D\T\C; hysterectomy; stomach removal june 2024; ha1 - Immunization history:: Adult Immunizations not immunized. - Infectious Disease History:: Denies. - Immunization history: Last tetanus immunization: unknown. - Social history:: Smoking status: Patient denies any tobacco usage or history of. - Family history:: not pertinent. Screenin:55 Abuse screen: Denies threats or abuse. Tuberculosis screening: No symptoms or risk rg5 factors identified. 21:57 [facility] ED Fall Risk Assessment (Adult) History of falling in the last 3 months, rg5 including since admission Yes- fall prone (multiple falls) (3 pts) Confusion or Disorientation No (0 pts) Intoxicated or Sedated No (0 pts) Impaired Gait Yes (1 pt) Mobility Assist Device Used Yes (1 pt) Altered Elimination Yes (1 pt) Score/Fall Risk Level 3 or more points = High Risk Oriented to surroundings, Maintained a safe environment, Educated pt \T\ family on fall prevention, incl call for assistance when getting out of bed, Provided non-skid footwear, Hourly rounding (assess needs \T\ fall precautionary measures) done, Used ambulatory aids as needed (educated on \T\ assisted with). Nutritional screening: On. Primary Survey: 21:57 NO uncontrolled hemorrhage observed. A: The client is awake and alert. The airway is rg5 patent. Breathing/Chest: Spontaneous respiratory effort, equal unlabored respirations, breath sounds clear bilaterally, regular pattern, symmetrical chest rise and fall. Circulation: No external hemorrhage present. Regular and strong central pulse, skin warm/dry/normal color. Disability Pupils are equal, round, reactive to light and accommodation. Client is alert. Exposure/Environment: All clothing and personal items were removed. Forensic evidence collection is not deemed to be indicated at this time. Items placed in patient belonging bag. 22:00 Reassessment Alertness and Airway: Awake and alert. The airway is patent. Breathing: rg5 Spontaneous respiratory effort, equal unlabored respirations, breath sounds clear bilaterally, regular pattern with symmetrical chest rise and fall. Circulation: No external hemorrhage noted. Regular and strong central pulse, skin warm/dry/normal color. Disability: Pupils Pupils are equal, round, reactive to light and accomodation. Alert. Assessment: 21:15 General: Appears in no apparent distress. comfortable, Behavior is calm, cooperative, rg5 appropriate for age. Pain: Complains of pain in neck \T\ back. Neuro: Level of Consciousness is awake, alert, obeys commands, Reports a syncopal episode weakness Seizure activity reported prior to arrival. EENT: No deficits noted. Cardiovascular: Patient's skin is warm and dry. Respiratory: Airway is patent Trachea midline Respiratory effort is even, unlabored, Respiratory pattern is regular, symmetrical. GI:. : Reports incontinence. Derm: Skin is intact, Skin is dry, Skin is normal, Skin temperature is warm. Musculoskeletal: Circulation, motion, and sensation intact. Range of motion: intact in all extremities. Vital Signs: 21:10 BP 120 / 90; Pulse 108; Resp 19; Temp 98.3(O); Pulse Ox 99% on R/A; Weight 68.95 kg; ha1 Height 5 ft. 5 in. ; Pain 8/10; 21:55 BP 121 / 86; Pulse 99; Resp 18; Pulse Ox 96% on R/A; Pain 9/10; rg5 22:35 BP 125 / 79; Pulse 103; Resp 18; Pulse Ox 96% on 2 lpm NC; Pain 7/10; rg5 23:12 BP 118 / 78; Pulse 82; Resp 18; Pulse Ox 96% on 3 lpm NC; Pain 6/10; rg5 21:10 Body Mass Index 25.29 (68.95 kg, 165.1 cm) ha1 21:10 Pain Scale: Adult ha1 21:55 Pain Scale: Adult rg5 22:35 Pain Scale: Adult rg5 23:12 Pain Scale: Adult rg5 Sheridan Coma Score: 21:55 Eye Response: spontaneous(4). Motor Response: obeys commands(6). Verbal Response: rg5 oriented(5). Total: 15. 10/14 21:04 Eye Response: spontaneous(4). Motor Response: obeys commands(6). Verbal Response: sp4 oriented(5). Total: 15. Trauma Score (Adult): 10/13 21:55 Eye Response: spontaneous(1); Verbal Response: oriented(1); Motor Response: obeys rg5 commands(2); Systolic BP: > 89 mm Hg(4); Respiratory Rate: 10 to 29 per min(4); Rhina Score: 15; Trauma Score: 12 ED Course: 20:55 Patient arrived in ED. al6 20:59 Donovan Gilliland MD is Attending Physician. sp4 21:09 Brenden Hanson, RN is Primary Nurse. rg5 21:24 Triage completed. ha1 21:43 CT Head C Spine In Process Unspecified. EDMS 21:46 CT Thoracic Spine Wo Cont In Process Unspecified. EDMS 21:55 Patient has correct armband on for positive identification. Placed in gown. Bed in low rg5 position. Call light in reach. Side rails up X2. Adult w/ patient. Patient maintains SpO2 saturation greater than 95% on room air. 21:55 Patient maintains SpO2 saturation greater than 95% on room air. rg5 21:57 Door closed. Noise minimized. Warm blanket given. rg5 21:57 No provider procedures requiring assistance completed. rg5 22:00 Arm band placed on right wrist. rg5 22:00 Thermoregulation: warm blanket given to patient. rg5 23:24 Victor Hugo Mchugh MD is Referral Physician. sp4 23:32 IV discontinued, bleeding controlled, No redness/swelling at site. Pressure dressing rg5 applied. 23:33 Provided Education on: post er care done. rg5 Administered Medications: 21:45 Drug: Promethazine IVP 25 mg IVP once Route: IVP; Site: left subclavian; rg5 23:22 Follow up: Response: No adverse reaction; Pain is decreased rg5 21:45 Drug: NS 0.9% IV 1000 ml IV at 1000 ml once; to be given as a bolus over 60 minutes rg5 Route: IV; Rate: 1000 ml; Site: left subclavian; 23:32 Follow up: IV Status: Completed infusion; IV Intake: 1000ml rg5 21:50 Drug: Droperidol IVP 2.5 mg IVP once Route: IVP; Site: left subclavian; rg5 23:22 Follow up: Response: No adverse reaction; Pain is decreased rg5 21:54 Drug: Ketorolac IVP 30 mg IVP once Route: IVP; Site: left subclavian; rg5 23:22 Follow up: Response: No adverse reaction; Pain is decreased rg5 21:54 Drug: Keppra IV 1000 mg IV at calculated rate once Route: IV; Rate: calculated rate; rg5 Site: left subclavian; 22:30 Follow up: IV Status: Completed infusion; IV Intake: 200ml rg5 23:18 Drug: [place] PO 10 mg-325 mg 1 tabs PO once Route: PO; rg5 23:26 Follow up: Response: No adverse reaction; Pain is decreased rg5 Medication: 22:00 VIS not applicable for this client. rg5 Intake: 21:55 PO: 0ml; Total: 0ml. rg5 22:30 IV: 200ml; Total: 200ml. rg5 23:32 IV: 1000ml; Total: 1200ml. rg5 Outcome: 23:26 Discharge ordered by . sp4 23:32 Discharged to home via wheelchair, rg5 23:32 Condition: stable 23:32 Discharge instructions given to patient, family, Instructed on discharge instructions, follow up and referral plans. Demonstrated understanding of instructions, follow-up care, medications, Prescriptions given X 1, 23:33 Patient left the ED. rg5 Signatures: Dispatcher [employer] EDMS Piedad Marino, RN RN ha1 Donovan Gilliland MD MD sp4 Brenden Hanson RN RN rg5 Yolanda Allison6
--- NOTE | 2024-10-13 23:26 | EDPHYS ---
Physician Documentation [facility] Name: Madison Anand Age: 44 yrs Sex: Female : 1980 Arrival Date: 10/13/2024 Time: 20:52 Bed 15 Private MD: ED Physician Donovan Gilliland HPI: 10/13 20:59 This 44 yrs old Other Race Female presents to ER via Unassigned with complaints of Fall sp4 Injury, Seizure. 10/14 21:04 Patient with extensive past medical history presents with acute fall, associated with sp4 neck pain upper back pain and left shoulder pain. Patient states she accidentally stumbled and fell at home. Patient has history of cervical spinal fusion via anterior approach. Patient also has extensive history of GI problems including gastroparesis, Winsome-en-Y gastric bypass, reported partial gastrectomy, fibromyalgia, diabetes, dysautonomia, poor balance, hypercholesterolemia, hypothyroidism and insomnia. Also history of chronic pain on tizanidine at home. . 21:06 Additional history and medication list, patient takes medication list includes sp4 alprazolam, albuterol as needed, levothyroxine, Linzess, Creon, pantoprazole, pramipexole, promethazine, tizanidine, nadolol. Additional further medical history includes Bianka's thyroiditis, pseudotumor cerebri, metabolic syndrome, migraine, obesity, prurigo nodularis, restless leg syndrome, TIA, DVT, gastroparesis, cholecystectomy, dilatation and curettage, hysterectomy, partial gastrectomy, Port-A-Cath insertion, currently left chest wall Port-A-Cath present. . Historical: - Allergies: 10/13 21:10 Butrans; ha1 21:10 Codeine; ha1 21:10 Latex; ha1 21:10 Metoclopramide; ha1 21:10 Reglan; ha1 21:10 Sulfa (Sulfonamide Antibiotics); ha1 21:10 Tegaderm AG Mesh; ha1 21:10 Topamax; ha1 21:10 Trokendi XR; ha1 21:10 Zofran; ha1 - Home Meds: 21:10 TPN Electrolytes intravenous [Active]; ha1 - PMHx: 21:10 diabetes mellitus; dysautonima; Fibromyalgia; Hypercholesterolemia; Hypothyroidism; ha1 insomnia; intercranial hypertension; metabolic syndrome; Migraines; Obesity; palpitations; prurigo nodularis; restless legs; Tachycardia; TIA; - PSHx: 21:10 Cholecystectomy; D\T\C; hysterectomy; stomach removal june 2024; ha1 - Immunization history:: Adult Immunizations not immunized. - Infectious Disease History:: Denies. - Immunization history: Last tetanus immunization: unknown. - Social history:: Smoking status: Patient denies any tobacco usage or history of. - Family history:: not pertinent. ROS: 10/14 21:04 Constitutional: Negative for fever, chills, and weight loss, positive for neck pain, sp4 back pain, and acute fall All other systems are negative, Exam: 21:04 Constitutional: This is a well developed, well nourished patient who is awake, alert, sp4 and in no acute distress. Appears physically deconditioned. Ambulatory with assistance Head/Face: Normocephalic, atraumatic. Eyes: Pupils equal round and reactive to light, extra-ocular motions intact. Lids and lashes normal. Conjunctiva and sclera are not injected. Cornea within normal limits. Periorbital areas with no swelling, redness, or edema. ENT: Nares patent. No nasal discharge, no septal abnormalities noted. Tympanic membranes are normal and external auditory canals are clear. Oropharynx with no redness, swelling, or masses, exudates, or evidence of obstruction, uvula midline. Mucous membranes moist. Neck: Trachea midline, no thyromegaly or masses palpated, and no cervical lymphadenopathy. Supple, full range of motion without nuchal rigidity, or vertebral point tenderness. Chest/axilla: Normal chest wall appearance and motion. Nontender with no deformity. No lesions are appreciated. Cardiovascular: Regular rate and rhythm with a normal S1 and S2. No gallops, murmurs, or rubs. Normal PMI, no JVD. No pulse deficits. Respiratory: Lungs have equal breath sounds bilaterally, clear to auscultation and percussion. No rales, rhonchi or wheezes noted. No increased work of breathing, no retractions or nasal flaring. Abdomen/GI: Soft, with normal bowel sounds. No distension or tympany. No guarding or rebound. No evidence of tenderness throughout. Back: No spinal tenderness. No costovertebral tenderness. Skin: Warm, dry with normal turgor. Normal color with no rashes, no lesions, and no evidence of cellulitis. MS/ Extremity: Pulses equal, no cyanosis. Neurovascular intact. Full, normal range of motion. Neuro: Awake and alert, GCS 15, oriented to person, place, time, and situation. Cranial nerves II-XII grossly intact. Motor strength 5/5 in all extremities. Sensory grossly intact. Psych: Awake, alert, with orientation to person, place and time. Behavior, mood, and affect are within normal limits Vital Signs: 10/13 21:10 BP 120 / 90; Pulse 108; Resp 19; Temp 98.3(O); Pulse Ox 99% on R/A; Weight 68.95 kg; ha1 Height 5 ft. 5 in. ; Pain 8/10; 21:55 BP 121 / 86; Pulse 99; Resp 18; Pulse Ox 96% on R/A; Pain 9/10; rg5 22:35 BP 125 / 79; Pulse 103; Resp 18; Pulse Ox 96% on 2 lpm NC; Pain 7/10; rg5 23:12 BP 118 / 78; Pulse 82; Resp 18; Pulse Ox 96% on 3 lpm NC; Pain 6/10; rg5 21:10 Body Mass Index 25.29 (68.95 kg, 165.1 cm) ha1 21:10 Pain Scale: Adult ha1 21:55 Pain Scale: Adult rg5 22:35 Pain Scale: Adult rg5 23:12 Pain Scale: Adult rg5 Rhina Coma Score: 21:55 Eye Response: spontaneous(4). Motor Response: obeys commands(6). Verbal Response: rg5 oriented(5). Total: 15. 10/14 21:04 Eye Response: spontaneous(4). Motor Response: obeys commands(6). Verbal Response: sp4 oriented(5). Total: 15. Trauma Score (Adult): 10/13 21:55 Eye Response: spontaneous(1); Verbal Response: oriented(1); Motor Response: obeys rg5 commands(2); Systolic BP: > 89 mm Hg(4); Respiratory Rate: 10 to 29 per min(4); Rhina Score: 15; Trauma Score: 12 MDM: 21:00 Medical Screening Exam initiated sp4 10/14 21:06 Differential diagnosis: abrasion, closed head injury, contusion, fracture, sprain, sp4 strain. Data reviewed: vital signs, nurses notes, radiologic studies, CT scan. Consideration of Admission/Observation Escalation of care including admission/observation considered. ED course: Patient has improved. . 21:17 ED course: Patient has improved, stable for discharge home.. sp4 10/13 21:17 Order name: CBC with Diff; Complete Time: 23:17 sp4 10/13 21:17 Order name: CMP; Complete Time: 23:17 sp4 10/13 21:17 Order name: CK; Complete Time: 23:17 sp4 10/13 21:19 Order name: CT Head C Spine; Complete Time: 23:17 sp4 10/13 21:28 Order name: CT Thoracic Spine Wo Cont; Complete Time: 23:17 sp4 10/13 21:17 Order name: IV Saline Lock; Complete Time: 21:39 sp4 10/13 21:17 Order name: Labs collected and sent; Complete Time: 21:39 sp4 Administered Medications: 10/13 21:45 Drug: Promethazine IVP 25 mg IVP once Route: IVP; Site: left subclavian; rg5 23:22 Follow up: Response: No adverse reaction; Pain is decreased rg5 21:45 Drug: NS 0.9% IV 1000 ml IV at 1000 ml once; to be given as a bolus over 60 minutes rg5 Route: IV; Rate: 1000 ml; Site: left subclavian; 23:32 Follow up: IV Status: Completed infusion; IV Intake: 1000ml rg5 21:50 Drug: Droperidol IVP 2.5 mg IVP once Route: IVP; Site: left subclavian; rg5 23:22 Follow up: Response: No adverse reaction; Pain is decreased rg5 21:54 Drug: Ketorolac IVP 30 mg IVP once Route: IVP; Site: left subclavian; rg5 23:22 Follow up: Response: No adverse reaction; Pain is decreased rg5 21:54 Drug: Keppra IV 1000 mg IV at calculated rate once Route: IV; Rate: calculated rate; rg5 Site: left subclavian; 22:30 Follow up: IV Status: Completed infusion; IV Intake: 200ml rg5 23:18 Drug: [place] PO 10 mg-325 mg 1 tabs PO once Route: PO; rg5 23:26 Follow up: Response: No adverse reaction; Pain is decreased rg5 Disposition Summary: 10/13/24 23:26 Discharge Ordered Notes: Location: Home sp4 Problem: new sp4 Symptoms: have improved sp4 Condition: Stable sp4 Diagnosis - Sprain of joints and ligaments of other parts of neck, initial encounter sp4 - Other seizures sp4 - Recurrent seizure, acute fall, acute upper back pain, acute ligamentous cervical sp4 sprain, history of C-spine fusion, Transaminitis, elevated liver enzymes Followup: sp4 - With: Victor Hugo Mchugh MD - When: 7 - 10 days - Reason: Recheck today's complaints Discharge Instructions: - Discharge Summary Sheet sp4 - Seizure, Adult, [id number] sp4 Forms: - Patient Portal Instructions sp4 Prescriptions: - Keppra 750 mg Oral tablet - take 1 tablet ORAL route every 12 hours for 30 days; 60 tablet; Refills: 0, sp4 Product Selection Permitted Signatures: Dispatcher [employer] EDMS Piedad Marino, ELIZABETH RN ha1 Donovan Gilliland MD MD sp4 Brenden Hanson RN RN rg5 Corrections: (The following items were deleted from the chart) 21:18 21:18 CBC+H.LAB.BRZ ordered. EDMS EDMS 21:18 21:18 COMPREHENSIVE METABOLIC PANEL+C.LAB.BRZ ordered. EDMS EDMS 21:18 21:18 CREATINE PHOSPHOKINASE+C.LAB.BRZ ordered. EDMS EDMS 21:29 21:29 Thoracic Spine WO Cont+CT.RAD.BRZ ordered. EDMS EDMS 21:50 21:21 Shoulder Left 2 View+RAD.RAD.BRZ ordered. EDMS EDMS
[2024-10-13 23:38] VITALS: TEMP 98.3
[2024-10-13 23:39] VITALS: O2SAT 96
[2024-10-13 23:42] VITALS: BP 118/78
== END 2024-10-13 23:33 | disposition home or self-care (01) ==
LOC: ER 20:52
DX: S13.8XXA Sprain of joints and ligaments of other parts of neck, initial encounter (principal); M54.9 Dorsalgia, unspecified; G40.802 Other epilepsy, not intractable, without status epilepticus; R74.01 Elevation of levels of liver transaminase levels; M43.22 Fusion of spine, cervical region; W18.30XA Fall on same level, unspecified, initial encounter
CPT/HCPCS: 96365; 96361; 85025; 36415; 82550; 80053; 70450; 72125; 72128; 96375; 99284; J2550; J1953; J1790; J7050; J7030